=== PATIENT | female | born 1945 | race Caucasian/White ===

== ENCOUNTER 2017-10-15 16:54 | Emergency (ER) | payer MEDICARE, SELFPAY ==
[2017-10-15 16:58] VITALS: BP 124/65; PULSE 71; RESP 16; TEMP 36.5; O2SAT 94; BMI 35.9
--- NOTE | 2017-10-15 17:56 | HMH.EDUTC ---
[facility] [place] Disposition Clinical Impression: UTI (urinary tract infection) Qualifiers: Urinary tract infection type: site unspecified Hematuria presence: with hematuria Qualified Code(s): N39.0 - Urinary tract infection, site not specified; R31.9 - Hematuria, unspecified Disposition: Home, Self-Care Condition on Discharge: Good Instructions: DI for Acute Abdomen Additional Instructions: Increase fluids Follow-up with primary care If symptoms worsen or do not improve return or be seen by Call within 48 hours for culture results Prescriptions: Ciprofloxacin HCl [Cipro 250mg Tab] 250 mg PO BID 5 Days tab Referrals: Sheba Fernandez [Primary Care Provider] - Time of Disposition: 18:01 Medical Decision Making - Agustin Inquiry Pt receiving controlled substance: No Vital Signs: 10/15/17 16:58 Temperature 97.7 F Temperature Source Oral Pulse Rate [Right Radial] 71 Respiratory Rate 16 Blood Pressure [Right Arm] 124/65 Blood Pressure Mean [Right Arm] 84 Blood Pressure Source [Right Arm] Automatic Cuff Blood Pressure Position [Right Arm] Sitting 02 Sat by Pulse Oximetry 94 L Oxygen Delivery Method Room Air [facility] [place] HPI - General Chief complaint: Abdominal Pain Stated complaint: lower abd pain, burning with urination Time Seen by Provider: 10/15/17 17:56 Mode of Arrival: Ambulatory Source of Information: Patient Description of Symptoms (Recalled from Triage Doc. by RN): BURNING WITH URINATION SINCE SUNDAY. CHRONIC INTERSTITIAL CYSTITIS. VAGINAL PROLAPSE SURGERY. RECURRING UTI'S. HEADACHE FOR 2 WEEKS. - History of Present Illness Provider Complaint: 72-year-old female presents today for burning with urination,andpelvic pain for 2 days. Patient states she takes Cipro and tolerates it well for UTIs - Related Data Home Medications Medication Instructions Recorded Confirmed Linaclotide [Linzess] 290 mcg PO DAILY 10/15/17 10/15/17 Potassium Chloride [Klor-Con 10mEq 10 meq PO DAILY 10/15/17 10/15/17 tab] Venlafaxine HCl [Venlafaxine HCl 37.5 mg PO DAILY 10/15/17 10/15/17 ER] clonazePAM [Klonopin 0.5mg tablet] 0.5 mg PO DAILY 10/15/17 10/15/17 Previous Rx's Medication Instructions Recorded Ciprofloxacin HCl [Cipro 250mg Tab] 250 mg PO BID 5 Days tab 10/15/17 Allergies Allergy/AdvReac Type Severity Reaction Status Date / Time Iodinated Contrast Media - Allergy Intermediate Unverified 07/24/17 15:01 Oral and [IODINATED CONTRAST MEDIA - IV DYE] povidone-iodine Allergy Intermediate I-RASH Unverified 07/24/17 15:01 [From BETADINE] cephalexin Allergy Unknown Unverified 07/24/17 15:01 ANYTHING OTHER THAN PAPER Allergy Unknown I-HIVES Uncoded 07/24/17 15:01 [facility] History I have reviewed the patient's past medical history: Yes ROS Obtained: Yes All systems reviewed & no additional complaints - Constitutional Constitutional: Reports system reviewed and no additional complaints, except as docu, Denies chills, Denies fever(s) - Eyes Eyes: Reports system reviewed and no additional complaints, except as docu - ENT Ears, Nose, Mouth, and Throat: Reports system reviewed and no additional complaints, except as docu - Cardiovascular Cardiovascular: Reports system reviewed and no additional complaints, except as docu - Respiratory Respiratory: Yes system reviewed and no additional complaints, except as docu - Gastrointestinal Gastrointestingal: Reports: system reviewed and no additional complaints, except as docu - Genitourinary Female Genitourinary: Reports system reviewed and no additional complaints, except as docu, Reports as per HPI, Reports urinary frequency, Reports urinary hesitancy, Reports urinary urgency - Musculoskeletal Musculoskeletal: Reports system reviewed and no additional complaints, except as docu - Integumentary/Breasts Skin/Breast: Reports system reviewed and no additional complaints, except as docu - Neurologic Neurologic: Repo
--- NOTE | 2017-10-15 17:59 | ED_ITS ---
[facility] [place] Disposition Clinical Impression: UTI (urinary tract infection) Qualifiers: Urinary tract infection type: site unspecified Hematuria presence: with hematuria Qualified Code(s): N39.0 - Urinary tract infection, site not specified ; R31.9 - Hematuria, unspecified Disposition: Home, Self-Care Condition on Discharge: Good Instructions: DI for Acute Abdomen Additional Instructions: Increase fluids Follow-up with primary care If symptoms worsen or do not improve return or be seen by Call within 48 hours for culture results Prescriptions: Ciprofloxacin HCl [Cipro 250mg Tab] 250 mg PO BID 5 Days tab Referrals: Sheba Fernandez [Primary Care Provider] - Time of Disposition: 18:01 Medical Decision Making - Agustin Inquiry Pt receiving controlled substance: No Vital Signs: 10/15/17 16:58 Temperature 97.7 F Temperature Source Oral Pulse Rate [Right Radial] 71 Respiratory Rate 16 Blood Pressure [Right Arm] 124/65 Blood Pressure Mean [Right Arm] 84 Blood Pressure Source [Right Arm] Automatic Cuff Blood Pressure Position [Right Arm] Sitting 02 Sat by Pulse Oximetry 94 L Oxygen Delivery Method Room Air [facility] [place] HPI - General Chief complaint: Abdominal Pain Stated complaint: lower abd pain, burning with urination Time Seen by Provider: 10/15/17 17:56 Mode of Arrival: Ambulatory Source of Information: Patient Description of Symptoms (Recalled from Triage Doc. by RN): BURNING WITH URINATION SINCE SUNDAY. CHRONIC INTERSTITIAL CYSTITIS. VAGINAL PROLAPSE SURGERY. RECURRING UTI'S. HEADACHE FOR 2 WEEKS. - History of Present Illness Provider Complaint: 72-year-old female presents today for burning with urination ,andpelvic pain for 2 days. Patient states she takes Cipro and tolerates it well for UTIs - Related Data Home Medications Medication Instructions Recorded Confirmed Linaclotide [Linzess] 290 mcg PO DAILY 10/15/17 10/15/17 Potassium Chloride [Klor-Con 10mEq 10 meq PO DAILY 10/15/17 10/15/17 tab] Venlafaxine HCl [Venlafaxine HCl 37.5 mg PO DAILY 10/15/17 10/15/17 ER] clonazePAM [Klonopin 0.5mg tablet] 0.5 mg PO DAILY 10/15/17 10/15/17 Previous Rx's Medication Instructions Recorded Ciprofloxacin HCl [Cipro 250mg Tab] 250 mg PO BID 5 Days tab 10/15/17 Allergies Allergy/AdvReac Type Severity Reaction Status Date / Time Iodinated Contrast Media - Allergy Intermediate Unverified 07/24/17 15:01 Oral and [IODINATED CONTRAST MEDIA - IV DYE] povidone-iodine Allergy Intermediate I-RASH Unverified 07/24/17 15:01 [From BETADINE] cephalexin Allergy Unknown Unverified 07/24/17 15:01 ANYTHING OTHER THAN PAPER Allergy Unknown I-HIVES Uncoded 07/24/17 15:01 [facility] History I have reviewed the patient's past medical history: Yes ROS Obtained: Yes All systems reviewed & no additional complaints - Constitutional Constitutional: Reports system reviewed and no additional complaints, except as docu, Denies chills, Denies fever(s) - Eyes Eyes: Reports system reviewed and no additional complaints, except as docu - ENT Ears, Nose, Mouth, and Throat: Reports system reviewed and no additional complaints, except as docu - Cardiovascular Cardiovascular: Reports system reviewed and no additional c
[2017-10-15 18:10] VITALS: BP 124/65; PULSE 71; RESP 16; TEMP 36.5; O2SAT 94
[2017-10-15 19:16] LABS: Apearance,Urine Clear (Clear); Color,Urine Yellow (Yellow)
[2017-10-15 19:17] LABS: Glucose,Urine (UA) 100 (Negative); Protein,Urine Trace (Negative); Specific Gravity, Urine 1.025 (1.005-1.030)
[2017-10-15 19:18] LABS: Ketones,Urine TRACE (Negative)
[2017-10-15 19:19] LABS: Bilirubin,Urine 1+ (Negative); Blood, Urine Negative (Negative); Urobilinogen,Urine 1 EU/dl (0.2)
[2017-10-15 19:20] LABS: UTC Leukocyte Esterase,Urine Negative (Negative); UTC Nitrate,Urine Positive (Negative)
== END 2017-10-15 18:12 | disposition home or self-care (01) ==
LOC: ER 17:16 → UTC 17:18
PROVIDERS: Emergency Provider Nurse Practitioner Family; Family Provider Family Medicine Geriatric Medicine; PCP Family Medicine Geriatric Medicine
DX: N39.0 Urinary tract infection, site not specified (principal); R51 Headache
CPT/HCPCS: 81003; 99201; 99281

== ENCOUNTER → 2018-01-09 12:33 | Outpatient (CLI) | payer MEDICARE, SELFPAY ==
--- NOTE | 2018-01-09 | CA_ITS ---
PROCEDURE: 2-D M-mode and color Doppler study INDICATIONS FOR THE TEST: Chest pain COPD Heart Murmur Tobacco Smokingex Palpitations+ Fatigue Syncope Edema Hypertension+Diabetes Mellitus Rheumatic Fever SOB BROWNE+Obesity Hyperlipidemia+ Family History HD Additional History lt shoulder pain, dizziness PATIENT INFORMATION HEIGHT: 61 WEIGHT: 181 GENDER: Female B/P: 124/65 2-D/M-MODE INTERPRETATION: 2-D MEASUREMENTS OBSERVED VALUES IN CMS Right Ventricular Dimension (RVDd) 2.2 Interventricular Septum (Thickness)(IVsd) 1.2 Left Ventricular Internal Dimensions(LVIDd) 4.5 Left Ventricular Posterior Wall (Thickness)(LVPWd) 1.1 Aortic Root 2.3 Aortic Cusp Separation 2.6 Left Atrial Dimensions (LAD) 3.2 2D 1. Left atrium is mildly enlarged, left ventricle is normal size, mild concentric left ventricular hypertrophy visually estimated ejection fraction 55% with no obvious regional wall motion abnormality. 2. The right atrium and right ventricle are normal size and contractility. 3. The aortic valve is minimally thickened and fibrosed. 4. The mitral valve has mitral annular calcification, leaflets are minimally thickened. 5. The tricuspid valve is grossly normal. 6. The pulmonic valve is poorly visualized. 7. No significant pericardial effusion noted. DOPPLER INTERROGATION: Doppler interrogation of the aortic, mitral and tricuspid valvular presence of mild aortic, mild mitral and tricuspid regurgitation, calculated right ventricular systolic pressure is 40 mmHg consistent with mild pulmonary hypertension, grade 1 diastolic dysfunction seen with tissue Doppler evidence of raised left atrial pressure. CONCLUSION: 1. Mildly enlarged left atrium, normal left ventricular size, mild concentric left ventricular hypertrophy, visually estimated ejection fraction 55% with no obvious regional wall motion abnormality, grade 1 diastolic dysfunction seen with tissue Doppler evidence of raised left atrial pressure. 2. Mild aortic, mild mitral and tricuspid regurgitation, calculated right ventricular systolic pressure is 40 mmHg consistent with mild pulmonary hypertension. 3. No significant pericardial effusion noted.
== END ==
PROVIDERS: Family Provider Family Medicine Geriatric Medicine; PCP Family Medicine Geriatric Medicine; Visit Provider Family Medicine Geriatric Medicine
DX: R53.82 Chronic fatigue, unspecified (principal); R41.82 Altered mental status, unspecified; F05 Delirium due to known physiological condition; I25.10 Atherosclerotic heart disease of native coronary artery without angina pectoris
CPT/HCPCS: 93306

== ENCOUNTER 2018-03-15 21:03 | Observation (INO) ==
[2018-03-15 21:24] LABS: Basophils # 0.1 K/mm3 (0-0.2); Basophils % 0.5 % (0.1-2.0); Eosinophils # 0.5 K/mm3 (0.0-0.4); Eosinophils % 4.1 % (0.1-12.0); Hematocrit 37.2 % (37.0-47.0); Hemoglobin 12.3 g/dL (12.2-16.2); Lymphocytes % 16.4 K/mm3 (10-50); Mean Corpuscular Hemoglobin 31.2 pg (27.0-31.2); Mean Corpuscular Volume 94.5 fl (81-99); Mean Platelet Volume 8.6 fl (7.4-10.4); Monocytes # 0.7 K/mm3 (0.1-1.0); Monocytes % 5.7 % (1.7-9.3); Neutrophils # 8.9 K/mm3 (1.8-7.8); Neutrophils % 73.4 % (37.0-80.0); Platelet Count 214 K/mm3 (142-424); Red Blood Count 3.94 M/mm3 (4.20-5.40); Red Cell Distribution Width 13.9 % (11.5-17.5); White Blood Count 12.2 K/mm3 (4.8-10.8)
[2018-03-15 21:39] LABS: Microscopic, Urine URINE MICROSCOPIC (MICROSCOPIC)
[2018-03-15 21:41] LABS: Appearance,Urine CLEAR (Clear); Bilirubin,Urine Negative (Negative); Blood, Urine TRACE-I (Negative); Color,Urine YELLOW (Yellow); Glucose,Urine (UA) Negative (Negative); Ketones,Urine Negative (Negative); Leukocyte Esterase,Urine TRACE (Negative); Protein,Urine Negative (Negative); Specific Gravity, Urine >= 1.030 (1.005-1.030); Urobilinogen,Urine 0.2 EU/dl (0.2)
[2018-03-15 21:41] LABS: Anion Gap 6.7 mEq/L (5-15); Blood Urea Nitrogen 19 mg/dL (7-18); Carbon Dioxide 32 mmol/L (21.0-32.0); Chloride 103 mmol/L (98-107); Glucose 118 mg/dL (74-106); Potassium 3.7 mmoL/L (3.5-5.1); Sodium 138 mmol/L (136-145); T4 (Thyroxine) 10.5 ug/dl (4.7-13.3); Thyroid Stimulating Hormone 2.19 uIU/ml (0.358-3.740)
[2018-03-15 21:57] LABS: Mucus,Urine 1+ /lpf; WBC,Urine Occasional #/hpf (0-3)
--- NOTE | 2018-03-15 22:48 | Emergency Department Note ---
ED Disposition Clinical Impression: Palpitations Disposition: Admitted as Observation Condition on Discharge: Good Referrals: Neymar Fernandez [Primary Care Provider] - - Critical Care Critical Care Time: No Attestation: On 03/15/18, the high probability of a clinically significant, sudden or life threatening deterioration of the following system(s) required my full and direct attention, intervention and personal management. The time I documented below is in addition to time spent performing reported procedures but includes the following listed in this critical care notation. Medical Decision Making - Medical Records Medical records reviewed: Yes: I reviewed the patient's medical records. - Agustin Inquiry Pt receiving controlled substance: No Vital Signs: 03/15/18 21:05 03/15/18 21:38 03/15/18 23:06 Temperature 98.0 F Temperature Source Oral Pulse Rate [Right Radial] 100 H 98 H 83 Respiratory Rate 20 15 Blood Pressure [Right Arm] 165/88 140/65 140/65 Blood Pressure Mean [Right Arm] 113 90 90 Blood Pressure Source [Right Arm] Automatic Cuff Automatic Cuff Automatic Cuff Blood Pressure Position [Right Arm] Sitting Sitting Sitting 02 Sat by Pulse Oximetry 97 94 L 94 L Oxygen Delivery Method Room Air Room Air Room Air - Lab Data Lab results reviewed: Yes: I reviewed the patient's lab results. Lab Results 03/15/18 21:10: WBC 12.2 H, RBC 3.94 L, Hgb 12.3, Hct 37.2, MCV 94.5, MCH 31.2, MCHC 33.0, RDW 13.9, Plt Count 214, MPV 8.6, Neut % (Auto) 73.4, Lymph % (Auto) 16.4, [place] % (Auto) 5.7, Eos % (Auto) 4.1, Baso % (Auto) 0.5, Neut # (Auto) 8.9 H, Lymph # (Auto) 2.0, [place] # (Auto) 0.7, Eos # (Auto) 0.5 H, Baso # (Auto) 0.1 03/15/18 21:10: Sodium 138, Potassium 3.7, Chloride 103, Carbon Dioxide 32, Anion Gap 6.7, BUN 19 H, Creatinine 1.00, Estimated Creat Clear 67, Estimated GFR 55 L, Est GFR ( Amer) 66, Glucose 118 H, Calcium 9.0, Troponin I < 0.02, TSH 2.19, Thyroxine (T4) 10.5 03/15/18 21:25: Urine Color Yellow, Urine Appearance Clear, Urine pH 6.0, Ur Specific [place] >= 1.030, Urine Protein Negative, Urine Glucose (UA) Negative, Urine Ketones Negative, Urine Blood Trace-i, Urine Nitrate Negative, Urine Bilirubin Negative, Urine Urobilinogen 0.2, Ur Leukocyte Esterase Trace, Urine RBC 3-5, Urine WBC Occasional, Ur Squamous Epith Cells 10-20, Urine Mucus 1+ Result diagrams: 03/15/18 21:10 03/15/18 21:10 Orders (Tests/Meds): ED MEDICATIONS Discontinued Medications Generic Name Dose Route Start Last Admin Trade Name Freq PRN Reason Stop Dose Admin Clonazepam 0.5 mg 03/15/18 23:13 Klonopin 0.5mg Tablet PO 03/15/18 23:14 ONCE ONE Diphenhydramine HCl 50 mg 03/15/18 23:12 Diphenhydramine 50mg Capsule PO 03/15/18 23:13 ONCE ONE ORDERS Category Date Time Status XR chest 2V Stat Exams 03/15/18 21:16 Taken ECG Request by /Nse Stat Y 03/15/18 21:16 Ordered - Radiology Data #1 Image(s): Chest Image Reviewed: Yes I reviewed the patient's radiology image Preliminary Findings: Abnormal (cm) - Physician Consults Physician Consulted: brian Reason -: Admission Arrhythmia/Palpitations HPI - General Chief Complaint: Shortness of Breath/Dyspnea Stated Complaint: Heart racing, soa Time Seen by Provider: 03/15/18 21:10 Mode of Arrival: Ambulatory Source of Information: Patient, Spouse, Medical Record Limitations: No Limitations - History of Present Illness HPI narrative: pt reports episodes of palpitation with sob but no chest pain with no syncope MD complaint: rapid heart beat, "heart racing", palpitations Onset (ago): day(s) Duration: intermittent Severity: moderate Context: occurred during rest Associated symptoms: denies other symptoms - Related Data Home Medications Medication Instructions Recorded Confirmed Linaclotide [Linzess] 290 mcg PO DAILY 10/15/17 03/15/18 Potassium Chloride [Klor-Con 10mEq 10 meq PO DAILY 10/15/17 03/15/18 tab] Venlafaxine HCl [Venlafaxine HCl 37.5 mg PO DAILY 10/15/17 03/15/18 ER] clonazePAM [Klonopin 0.5mg tablet] 0.5 mg PO DAILY 10/15/17 03/15/18 Carvedilol [Carvedilol 25mg Tab] 25 mg PO BID 03/15/18 03/15/18 Ciprofloxacin HCl [Cipro 250mg Tab] 250 mg PO BID 03/15/18 03/15/18 Estradiol 1 mg PO QDAY 03/15/18 03/15/18 Lisinopril/Hydrochlorothiazide 12.5 mg PO DAILY 03/15/18 03/15/18 [Lisinopril-Hctz 20-12.5 mg Tab] Tramadol HCl [Ultram Take Home 50 mg PO NEEDED PRN 03/15/18 03/15/18 Pack 50mg (10)] Allergies Allergy/AdvReac Type Severity Reaction Status Date / Time chlorhexidine Allergy Severe RASH Verified 03/15/18 21:10 [From Hibiclens] Iodinated Contrast Media - Allergy Intermediate Verified 03/15/18 21:10 Oral and [IODINATED CONTRAST MEDIA - IV DYE] povidone-iodine Allergy Intermediate I-RASH Verified 03/15/18 21:10 [From BETADINE] cephalexin Allergy Unknown Verified 03/15/18 21:10 ANYTHING OTHER THAN PAPER Allergy Unknown I-HIVES Uncoded 03/11/18 14:20 [facility] History I have reviewed the patient's past medical history: Yes Medical History: Denies:: Diabetes Mellitus Type 1, Diabetes Mellitus Type 2 Comment: 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 osteoarthritis. IC. Tinnitus. 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 Diverticulosis. Hx rectal bleeding/transfusion Amputation: No Fractures: No Comment: Open Cholecystectomy--1970. TVH, BSO @ --1995. back surgery--2002. cataract surgery, both eyes--2006, 2007. rotator cuff tear repair, both shoulders--2008, 2009. rectocoele repair, Enterocele repair,vaginal vault suspension, cystoscopy (Dr. Macias)--2014. heart stent placement--2016. NOV --2016 - Social History Smoking Status: Former smoker Alcohol Intake: never Substance Use Type: denies use - Psychiatric History Expresses thoughts of harming self/others: None Suicide Plan Description: No Plan Family Hx:: Hypertension ROS Obtained: Yes All systems reviewed & no additional complaints - Constitutional Constitutional: Denies fever(s) - Eyes Eyes: Denies change in vision - ENT Ears, Nose, Mouth, and Throat: Denies sore throat - Cardiovascular Cardiovascular: Denies chest pain, Reports rapid heart rate - Respiratory Respiratory: No cough - Gastrointestinal Gastrointestingal: Denies: abdominal pain - Genitourinary Female Genitourinary: Denies hematuria - Musculoskeletal Musculoskeletal: Denies joint pain - Integumentary/Breasts Skin/Breast: Denies rash - Neurologic Neurologic: Denies seizure-like activity Physical Exam - General General appearance: in no apparent distress - Head Head exam: normocephalic - Eye Eye exam: Present: PERRL, EOMI - ENT ENT exam: Present: mucous membranes moist, mucous membranes dry - Neck Neck exam: Present: trachea midline - Respiratory Respiratory exam: Present: normal lung sounds bilaterally. Absent: respiratory distress - Cardiovascular Cardiovascular exam: Present: regular rate, systolic murmur, +S4 - Abdominal Exam Abdominal exam: Present: soft - Extremities Exam Extremities exam: Absent: calf tenderness - Neurological Exam Neurological exam: Present: alert, oriented X3, CN II-XII intact - Psychiatric Psychiatric exam: Present: normal affect - Skin Skin exam: Absent: rash
[2018-03-16 06:45] LABS: Basophils # 0.1 K/mm3 (0-0.2); Basophils % 0.5 % (0.1-2.0); Eosinophils # 0.5 K/mm3 (0.0-0.4); Eosinophils % 4.7 % (0.1-12.0); Hemoglobin 11.2 g/dL (12.2-16.2); Lymphocytes # 2.5 K/mm3 (0.7-4.5); Lymphocytes % 23.2 K/mm3 (10-50); Mean Corpuscular Hemoglobin 31.6 pg (27.0-31.2); Mean Corpuscular Volume 95.8 fl (81-99); Mean Platelet Volume 8.2 fl (7.4-10.4); Monocytes # 0.6 K/mm3 (0.1-1.0); Monocytes % 5.3 % (1.7-9.3); Neutrophils # 7.1 K/mm3 (1.8-7.8); Neutrophils % 66.4 % (37.0-80.0); Platelet Count 179 K/mm3 (142-424); Red Blood Count 3.55 M/mm3 (4.20-5.40); Red Cell Distribution Width 13.8 % (11.5-17.5); White Blood Count 10.7 K/mm3 (4.8-10.8)
[2018-03-16 07:12] LABS: Anion Gap 10.5 mEq/L (5-15); Blood Urea Nitrogen 18 mg/dL (7-18); Carbon Dioxide 30 mmol/L (21.0-32.0); Chloride 105 mmol/L (98-107); Sodium 142 mmol/L (136-145)
[2018-03-16 07:13] LABS: Calcium 8.6 mg/dL (8.5-10.1); Chol/HDL Ratio 2.7 (1-3.5); Cholesterol 121 mg/dL (140-200); Glucose 94 mg/dL (74-106); HDL Cholesterol 45 mg/dL (29-89); LDL Cholesterol 58 mg/dL (0-130); Triglycerides 92 mg/dL (30-200); VLDL Cholesterol 18 mg/dL (0-40)
[2018-03-16 07:14] LABS: Potassium 3.5 mmoL/L (3.5-5.1)
--- NOTE | 2018-03-16 07:53 | H&P/Discharge Summary ---
General - General Admission date:: 03/15/18 Discharge date: 03/16/18 *Admission Date: 03/15/18 *Chief complaint: Palpitations *History of present illness: 72-year-old white female with history of coronary disease, status post stent placement in 2016, since that time she has been on carvedilol, but over the past couple of years she has had increasing problems with palpitations. She reports feelings like her heart is racing which make her extremely nervous. She has been to the [place], [place] emergency department several times and has been told she is dehydrated or hypokalemic. She does not feel this is the case. Came to the emergency department here yesterday evening was found to have normal EKGs and normal labs, however very concerned about her palpitations , given previous poor results from her outpatient workup she was admitted overnight for further evaluations. [facility] History I have reviewed the patient's past medical history: Yes Medical History: Reports:: Anxiety, Coronary Artery Disease, Palpitations Denies:: Cancer, Diabetes Mellitus Type 1, Diabetes Mellitus Type 2, MRSA Other Medical History: Reports: Arthritis, Cataracts Comment: Chronic clonazepam for anxiety and tinnitus, chronic tramadol for osteoarthritis, not an NSAID candidate because of cardiovascular disease Laterality Cases: Bilateral: Arthroscopy Shoulder, Carpal Tunnel Release, Cataract Other Surgeries: Yes: Appendectomy, Cardiac Catheterization, Cholecystectomy, Hysterectomy-Total Amputation: No Fractures: No - *Social History Educational Level: Completed High School Smoking Status: Former smoker Alcohol Intake: never Substance Use Type: denies use Occupational Status: retired Housing: house Household Members: spouse - Psychiatric History Expresses thoughts of harming self/others: None Suicide Plan Description: No Plan *Family Hx:: Cancer, Hypertension Review of Systems - Review of Systems Review of systems:: pertinent systems reviewed and negative unless documented below - Constitutional Denies anorexia, Denies body ache(s), Denies chills - Eyes Denies blind spots, Denies blurry vision, Denies change in vision - ENT Reports ringing in the ears, Denies abnormal hearing, Denies bleeding gums, Denies headache(s), Denies hearing loss - *Cardiovascular Reports irregular heart rhythm, Reports rapid, pounding, or irregular heartbeat , Denies chest pain, Denies chest pain at rest, Denies shortness of breath with activity, Denies leg swelling, Denies leg sores, Denies lightheadedness, Denies shortness of breath when lying down - *Respiratory Reports cough, Reports shortness of breath, Reports shortness of breath with activity, Denies change in phlegm color, Denies chest congestion, Denies excessive phlegm production - *Gastrointestinal Denies abdominal pain, Denies belching, Denies bloating, Denies constipation - *Neurologic Denies seizure-like activity Exam Vital signs and Labs for Last 24 Hours: Temp Pulse Resp BP Pulse Ox 97.9 F 77 20 109/55 95 03/16/18 04:00 03/16/18 04:00 03/16/18 04:00 03/16/18 04:00 03/16/18 04:00 Laboratory Results - last 24 hr 03/15/18 21:10: WBC 12.2 H, RBC 3.94 L, Hgb 12.3, Hct 37.2, MCV 94.5, MCH 31.2, MCHC 33.0, RDW 13.9, Plt Count 214, MPV 8.6, Neut % (Auto) 73.4, Lymph % (Auto) 16.4, [place] % (Auto) 5.7, Eos % (Auto) 4.1, Baso % (Auto) 0.5, Neut # (Auto) 8.9 H, Lymph # (Auto) 2.0, [place] # (Auto) 0.7, Eos # (Auto) 0.5 H, Baso # (Auto) 0.1 03/15/18 21:10: Sodium 138, Potassium 3.7, Chloride 103, Carbon Dioxide 32, Anion Gap 6.7, BUN 19 H, Creatinine 1.00, Estimated Creat Clear 67, Estimated GFR 55 L, Est GFR ( Amer) 66, Glucose 118 H, Calcium 9.0, Troponin I < 0.02, TSH 2.19, Thyroxine (T4) 10.5 03/15/18 21:25: Urine Color Yellow, Urine Appearance Clear, Urine pH 6.0, Ur Specific [place] >= 1.030, Urine Protein Negative, Urine Glucose (UA) Negative, Urine Ketones Negative, Urine Blood Trace-i, Urine Nitrate Negative, Urine Bilirubin Negative, Urine Urobilinogen 0.2, Ur Leukocyte Esterase Trace, Urine RBC 3-5, Urine WBC Occasional, Ur Squamous Epith Cells 10-20, Urine Mucus 1+ 08/10/18 23:45: Troponin I < 0.02 03/16/18 02:40: Troponin I < 0.02 03/16/18 05:40: Sodium 142, Potassium 3.5, Chloride 105, Carbon Dioxide 30, Anion Gap 10.5, BUN 18, Creatinine 0.79 D, Estimated Creat Clear 65, Estimated GFR 72, Est GFR ( Amer) 87 D, Glucose 94 D, Calcium 8.6, Magnesium 1.9 , Troponin I < 0.02, Triglycerides 92, Cholesterol 121 L, LDL Cholesterol 58, VLDL Cholesterol 18, HDL Cholesterol 45, Cholesterol/HDL Ratio 2.7 03/16/18 05:40: WBC 10.7, RBC 3.55 L, Hgb 11.2 L, Hct 34.0 L, MCV 95.8, MCH 31.6 H, MCHC 33.0, RDW 13.8, Plt Count 179, MPV 8.2, Neut % (Auto) 66.4, Lymph % (Auto) 23.2, [place] % (Auto) 5.3, Eos % (Auto) 4.7, Baso % (Auto) 0.5, Neut # ( Auto) 7.1, Lymph # (Auto) 2.5, [place] # (Auto) 0.6, Eos # (Auto) 0.5 H, Baso # ( Auto) 0.1 I & O for Last 24 hours: Intake & Output 03/13/18 03/14/18 03/15/18 03/16/18 11:59 11:59 11:59 11:59 Intake Total 348 / 348 Output Total 350 / 350 Balance -2 / -2 Weight 176 lb 1 oz - Constitutional obese - *Routine HEENT Exam Head: Present: normocephalic, atraumatic Eye: Present: EOMI, PERRL ENT: Present: mucous membranes moist - *Routine Neck Exam Present: supple, full ROM, JVD - *Routine Respiratory Exam Present: CTA bilaterally. Absent: accessory muscle use, patient mechanically ventilated, prolonged expiratory phase - *Routine Cardiovascular Exam Present: RRR, Normal S1, Normal S2. Absent: murmur - *Routine Abdominal Exam Present: soft, normoactive bowel sounds - *Routine Extremities Exam Present: full ROM. Absent: cyanosis, clubbing, edema - *Routine Neurological Exam Present: alert, oriented X3, CN II-XII intact, moving all extremities - Routine Psychiatric Exam Present: anxious. Absent: visual hallucinations, agitated, paranoid Hospital Course Hospital Course: Patient was admitted overnight, environmental management specialist captured multiple PVCs, especially correlating with patient's symptoms around 5:30 AM. Patient had no further problems with chest pain or shortness of air cough. Chest x-ray showed patchy lower lobe infiltrate. Patient noted to be this morning that she does not drink caffeine but takes caffeine tablets on a regular basis because she thinks they make "my aspirin tablets work better." I reviewed patient's EKGs with her and her . I think she would do better on beta blockade designed for rate control rather than carvedilol at this point. She is also concerned about some circulation issues that she attributes to the carvedilol. I will discharge her home today, change to nebivolol 10 mg daily. Follow her up in my office in 6 days. She is wishing to obtain internal medicine follow-up closer to her home near [place]. We will cover with antibiotics for the infiltrate noted on chest x-ray Results Labs on day of discharge: Labs from last 24 hours 03/16/18 03/16/18 03/16/18 05:40 05:40 02:40 WBC 10.7 RBC 3.55 L Hgb 11.2 L Hct 34.0 L MCV 95.8 MCH 31.6 H MCHC 33.0 RDW 13.8 Plt Count 179 MPV 8.2 Neut % (Auto) 66.4 Lymph % (Auto) 23.2 [place] % (Auto) 5.3 Eos % (Auto) 4.7 Baso % (Auto) 0.5 Neut # (Auto) 7.1 Lymph # (Auto) 2.5 [place] # (Auto) 0.6 Eos # (Auto) 0.5 H Baso # (Auto) 0.1 Sodium 142 Potassium 3.5 Chloride 105 Carbon Dioxide 30 Anion Gap 10.5 BUN 18 Creatinine 0.79 D Estimated Creat Clear 65 Estimated GFR 72 Est GFR ( Amer) 87 D Glucose 94 D Calcium 8.6 Magnesium 1.9 Troponin I < 0.02 < 0.02 Triglycerides 92 Cholesterol 121 L LDL Cholesterol 58 VLDL Cholesterol 18 HDL Cholesterol 45 Cholesterol/HDL Ratio 2.7 TSH Thyroxine (T4) Urine Color Urine Appearance Urine pH Ur Specific [place] Urine Protein Urine Glucose (UA) Urine Ketones Urine Blood Urine Nitrate Urine Bilirubin Urine Urobilinogen Ur Leukocyte Esterase Urine RBC Urine WBC Ur Squamous Epith Cells Urine Mucus 03/15/18 03/15/18 03/15/18 23:45 21:25 21:10 WBC RBC Hgb Hct MCV MCH MCHC RDW Plt Count MPV Neut % (Auto) Lymph % (Auto) [place] % (Auto) Eos % (Auto) Baso % (Auto) Neut # (Auto) Lymph # (Auto) [place] # (Auto) Eos # (Auto) Baso # (Auto) Sodium 138 Potassium 3.7 Chloride 103 Carbon Dioxide 32 Anion Gap 6.7 BUN 19 H Creatinine 1.00 Estimated Creat Clear 67 Estimated GFR 55 L Est GFR ( Amer) 66 Glucose 118 H Calcium 9.0 Magnesium Troponin I < 0.02 < 0.02 Triglycerides Cholesterol LDL Cholesterol VLDL Cholesterol HDL Cholesterol Cholesterol/HDL Ratio TSH 2.19 Thyroxine (T4) 10.5 Urine Color Yellow Urine Appearance Clear Urine pH 6.0 Ur Specific [place] >= 1.030 Urine Protein Negative Urine Glucose (UA) Negative Urine Ketones Negative Urine Blood Trace-i Urine Nitrate Negative Urine Bilirubin Negative Urine Urobilinogen 0.2 Ur Leukocyte Esterase Trace Urine RBC 3-5 Urine WBC Occasional Ur Squamous Epith Cells 10-20 Urine Mucus 1+ 03/15/18 21:10 WBC 12.2 H RBC 3.94 L Hgb 12.3 Hct 37.2 MCV 94.5 MCH 31.2 MCHC 33.0 RDW 13.9 Plt Count 214 MPV 8.6 Neut % (Auto) 73.4 Lymph % (Auto) 16.4 [place] % (Auto) 5.7 Eos % (Auto) 4.1 Baso % (Auto) 0.5 Neut # (Auto) 8.9 H Lymph # (Auto) 2.0 [place] # (Auto) 0.7 Eos # (Auto) 0.5 H Baso # (Auto) 0.1 Sodium Potassium Chloride Carbon Dioxide Anion Gap BUN Creatinine Estimated Creat Clear Estimated GFR Est GFR ( Amer) Glucose Calcium Magnesium Troponin I Triglycerides Cholesterol LDL Cholesterol VLDL Cholesterol HDL Cholesterol Cholesterol/HDL Ratio TSH Thyroxine (T4) Urine Color Urine Appearance Urine pH Ur Specific [place] Urine Protein Urine Glucose (UA) Urine Ketones Urine Blood Urine Nitrate Urine Bilirubin Urine Urobilinogen Ur Leukocyte Esterase Urine RBC Urine WBC Ur Squamous Epith Cells Urine Mucus DS: Diagnosis - Discharge Diagnosis (1) Palpitations Status: Acute (2) Acute bronchopneumonia Status: Acute Discharge Medications - Medications for Discharge Home Medication List at Discharge: No Action Potassium Chloride [Klor-Con 10mEq tab] 20 meq PO DAILY clonazePAM [Klonopin 0.5mg tablet] 0.5 mg PO DAILY Estradiol 1 mg PO QDAY Tramadol HCl [Ultram Take Home Pack 50mg (10)] 50 mg PO BID Lisinopril/Hydrochlorothiazide [Lisinopril-Hctz 20-12.5 mg Tab] 12.5 mg PO DAILY Carvedilol [Carvedilol 25mg Tab] 25 mg PO BID Atorvastatin Calcium [Atorvastatin 20mg Tab] 20 mg PO DAILY Linaclotide [Linzess] 290 mcg PO DAILY Aspirin 81 mg PO DAILY
== END 2018-03-16 08:54 | disposition home or self-care (01) ==
LOC: ER 21:03 → 2ND 21:03
PROVIDERS: ADMIT Emergency Medicine; ATTEND Internal Medicine Adolescent Medicine
CPT/HCPCS: 36415; 71020; 71046; 80048; 80061; 81001; 83735; 84436; 84443; 84484; 85025; 93005; 96365; 99284; G0378

== ENCOUNTER → 2018-06-08 10:36 | Outpatient (CLI) | payer MEDICARE, SELFPAY ==
[2018-06-08 11:07] LABS: Basophils % 0.5 % (0.1-2.0); Eosinophils # 0.4 K/mm3 (0.0-0.4); Eosinophils % 4.5 % (0.1-12.0); Hematocrit 42.4 % (37.0-47.0); Hemoglobin 13.5 g/dL (12.2-16.2); Lymphocytes # 1.6 K/mm3 (0.7-4.5); Lymphocytes % 18.3 K/mm3 (10-50); Mean Corpuscular HGB Conc 31.9 g/dL (31.8-35.4); Mean Corpuscular Hemoglobin 31.6 pg (27.0-31.2); Mean Platelet Volume 8.6 fl (7.4-10.4); Monocytes # 0.5 K/mm3 (0.1-1.0); Monocytes % 5.2 % (1.7-9.3); Neutrophils # 6.1 K/mm3 (1.8-7.8); Neutrophils % 71.6 % (37.0-80.0); Platelet Count 215 K/mm3 (142-424); Red Blood Count 4.29 M/mm3 (4.20-5.40); Red Cell Distribution Width 13.9 % (11.5-17.5); White Blood Count 8.6 K/mm3 (4.8-10.8)
[2018-06-08 12:59] LABS: Alanine Aminotransferase 21 U/L (12-78); Albumin Level 3.2 gm/dL (3.4-5.0); Albumin/Globulin Ratio 0.9 (1.1-1.8); Alkaline Phosphatase 80 U/L (46-116); Anion Gap 12.1 mEq/L (5-15); Aspartate Amino Transferase 19 U/L (15-37); Bilirubin,Total 0.3 mg/dL (0.2-1.0); Blood Urea Nitrogen 18 mg/dL (7-18); Carbon Dioxide 30 mmol/L (21.0-32.0); Chloride 106 mmol/L (98-107); Creatinine,Serum 0.95 mg/dL (0.55-1.02); Estimated Glomerular Filt Rate 58 ml/min (>60); GFR (African American) 70 ML/MIN (>60); Globulin 3.5 gm/dl (1.3-3.2); Glucose 109 mg/dL (74-106); Potassium 5.1 mmoL/L (3.5-5.1); Sodium 143 mmol/L (136-145); Total Protein,Serum 6.7 gm/dL (6.4-8.2)
== END ==
PROVIDERS: Visit Provider Internal Medicine Adolescent Medicine
DX: E53.8 Deficiency of other specified B group vitamins (principal)
CPT/HCPCS: 36415; 80053; 85025

== ENCOUNTER → 2018-07-16 16:27 | Outpatient (CLI) | payer MEDICARE, SELFPAY ==
--- NOTE | 2018-07-16 16:42 | XR_ITS ---
XR hip LT 2-3V w/pelvis HISTORY: ITS.REASON: LEFT HIP PAIN ORDERING PHYSICIAN: Adrián Swenson MD PATIENT AGE: 73 years COMPARISON: None FINDINGS: There are moderate to severe osteoarthritic changes of the left hip with decrease in the joint space and prominent osteophyte formation. Mild sclerosis of the femoral head. Moderate osteoarthritic changes are also present involving the right hip. No fracture or dislocation. There is sclerosis of the SI joints on both sides. Postsurgical changes of the lumbar spine. IMPRESSION: Moderate to severe osteoarthritis of the left hip, moderate osteoarthritis of the right hip with bilateral sacroiliac sclerosis
== END ==
PROVIDERS: PCP Internal Medicine Adolescent Medicine; Visit Provider Internal Medicine Adolescent Medicine
DX: M25.552 Pain in left hip (principal)
CPT/HCPCS: 73502

== ENCOUNTER 2018-07-31 14:26 | Outpatient (RCR) | payer MEDICARE, SELFPAY ==
--- NOTE | 2018-07-31 16:15 | HMH.PTOPEV ---
PT Outpatient Evaluation Rehab PT Outpatient Evaluation Start: 07/31/18 15:53 Freq: Status: Active Protocol: Document 07/31/18 15:53 VERONICA (Rec: 07/31/18 16:13 VERONICA [id number]) Electronically Signed By Favio Justice, PT 07/31/18 15:53 Outpatient Therapy Subjective History Subjective History Pt is a 73 year old female presenting to outpatient PT with reports of chronic L hip pain with the most recent exacerbation starting approx 3 weeks ago. Pt also reports hx of chronic radiculopathy to bilateral feet. Hx of cardivascular stent placement and lumbar spine fusion. Most recent diagnostics indicate progressed OA. She most recently received a Lidocane and Cortisone injection that has provided some relief. Chief Complaint Pain Spasms Stiff Clicks Paresthesia Symptom Type Ache Numbness Tingling Shooting Symptoms Relieved By Heat Prescription Meds Symptoms Aggravated By Sitting Standing Bending/Stooping Physical Activity Twisting Walking Lifting Prior Functional Limitations None Current Functional Limitations Reaching Lifting Housework Driving Sleeping Standing Sitting Squatting Recreation Activity Walking Stairs Balance Bending/Stooping Symptom Description Constant but Variable Level of pain today (0-10) 4 Pain scale - at its best (0-10) 4 Pain scale - at its worst (0-10) 8 Hip/Knee Eval Gait Observation General Gait Pattern Observation Antalgic Gait Decrease Weight Bear (L) Assistive Device Assisti
== END 2018-07-31 16:25 | disposition home or self-care (01) ==
LOC: PT 14:26
PROVIDERS: Visit Provider Internal Medicine Adolescent Medicine
DX: M25.552 Pain in left hip (principal)
CPT/HCPCS: 97010; 97014; 97163; G0283

== ENCOUNTER 2018-08-21 17:48 | Observation (INO) ==
--- NOTE | 2018-08-21 18:21 | Emergency Department Note ---
ED Disposition Clinical Impression: Left ureteral calculus Abdominal pain Qualifiers: Abdominal location: unspecified location Qualified Code(s): R10.9 - Unspecified abdominal pain Leukocytosis Qualifiers: Leukocytosis type: unspecified Qualified Code(s): D72.829 - Elevated white blood cell count, unspecified Disposition: Still a Patient Condition on Discharge: Fair Instructions: DI for Acute Abdomen Referrals: Adrián Swenson MD [Primary Care Provider] - - Critical Care Critical Care Time: No Attestation: On 08/21/18, the high probability of a clinically significant, sudden or life threatening deterioration of the following system(s) required my full and direct attention, intervention and personal management. The time I documented below is in addition to time spent performing reported procedures but includes the following listed in this critical care notation. Medical Decision Making - Agustin Inquiry Pt receiving controlled substance: Yes Agustin was queried for this patient: No Reason not queried -: Emergent pt cond-no time Risks and benefits of using a controlled substance: were not discussed with pt by me Vital Signs: 08/21/18 18:00 08/21/18 18:45 08/21/18 18:51 Temperature 97.8 F Temperature Source Oral Pulse Rate [Right Brachial] 70 66 Respiratory Rate 17 Blood Pressure [Right Arm] 151/62 H 152/67 H Blood Pressure Mean [Right Arm] 91 95 Blood Pressure Source [Right Arm] Automatic Cuff Automatic Cuff Blood Pressure Position [Right Arm] Sitting 02 Sat by Pulse Oximetry 100 94 L Oxygen Delivery Method Room Air Room Air - Lab Data Lab Results 08/21/18 18:16: Urine Color Yellow, Urine Appearance Sl cloudy, Urine pH 5.5, Ur Specific [place] 1.025, Urine Protein Negative, Urine Glucose (UA) Negative, Urine Ketones Negative, Urine Blood Negative, Urine Nitrate Negative, Urine Bilirubin Negative, Urine Urobilinogen 0.2, Ur Leukocyte Esterase Negative, Urine RBC Occasional, Urine WBC Occasional, Ur Squamous Epith Cells 10-20, Urine Bacteria 2+ 08/21/18 18:16: WBC 20.2 H* D, RBC 4.69, Hgb 15.1, Hct 47.5 H, MCV 101.3 H, MCH 32.3 H, MCHC 31.8, RDW 13.7, Plt Count 219, MPV 8.9, Neut % (Auto) 90.8 H, Lymph % (Auto) 5.0 L, [place] % (Auto) 3.6, Eos % (Auto) 0.4, Baso % (Auto) 0.2, Neut # (Auto) 18.3 H, Lymph # (Auto) 1.0, [place] # (Auto) 0.7, Eos # (Auto) 0.1, Baso # (Auto) 0.1, Total Counted 100, Neutrophils % (Manual) 93 H, Lymphocytes % (Manual) 4 L, Monocytes % (Manual) 3, Platelet Estimate Normal, RBC Morphology Normal 08/21/18 18:16: Sodium 138, Potassium 4.3, Chloride 102, Carbon Dioxide 28, Anion Gap 12.3, BUN 21 H D, Creatinine 1.48 H D, Estimated Creat Clear 54, Estimated GFR 35 L, Est GFR ( Amer) 42 L D, Glucose 135 H, Calcium 9.2, Total Bilirubin 0.6, AST 19 D, ALT 26, Alkaline Phosphatase 101, Total Protein 7.6, Albumin 3.3 L, Globulin 4.3 H, Albumin/Globulin Ratio 0.8 L Result diagrams: 08/21/18 18:16 08/21/18 18:16 Orders (Tests/Meds): ED MEDICATIONS Generic Name Dose Route Start Last Admin Trade Name Freq PRN Reason Stop Dose Admin Sodium Chloride 1,000 mls @ 999 mls/hr 08/21/18 18:15 08/21/18 18:12 Sod Chlor 0.9% 1000ml Bag IV 08/21/18 19:15 999 mls/hr .Q1H1M JAILYN Administration Levofloxacin/Dextrose 750 mg in 150 mls @ 100 mls/hr 08/21/18 19:30 08/21/18 19:47 Levofloxacin 750mg/150ml Premix IV 09/04/18 19:29 100 mls/hr Q24H JAILYN Administration Protocol Discontinued Medications Generic Name Dose Route Start Last Admin Trade Name Freq PRN Reason Stop Dose Admin Morphine Sulfate 4 mg 08/21/18 18:36 08/21/18 18:43 Morphine 4mg/Ml Syringe IV 08/21/18 18:37 4 mg ONCE ONE Administration Morphine Sulfate 4 mg 08/21/18 20:11 Morphine 4mg/Ml Syringe IV 08/21/18 20:12 ONCE ONE Ondansetron HCl 4 mg 08/21/18 18:36 08/21/18 18:43 Zofran 4mg/2ml Vial IV 08/21/18 18:37 4 mg ONCE ONE Administration ORDERS Category Date Time Status CT abdomen pelvis wo con Stat Cat Scan 08/21/18 19:07 Taken Urinalysis and Microscopic Stat Lab 08/21/18 18:16 Ordered Blood Culture Stat Micro 08/21/18 19:10 Received Urine Culture Stat Micro 08/21/18 18:16 Received - Physician Consults Physician Consulted: Ray (urology) Time: 19:08 Reason -: Urology Eval/Care Comment/Response: Discussed findings. Does not patient needs to be transferred to [facility] for urological intervention. Does recommend antibiotics given leukocytosis. I also discussed that I will be doing a CT scan to rule out diverticulitis given the patient's concern regarding this. Additional Consult: Imelda Swenson Time: 20:14 Reason -: Admission Comment/Response: Agrees to admit the patient to the hospital. We discussed the patient's clinical information, including history, exam, laboratory and radiology results and ED course. Per hospital procedure, I will write temporary bridge inpatient orders on the patient. Specific orders requested by the admitting physician: CT abdo/pelvis pending. Dr. Segura will f/u. Pain control, antibiotics, urology consult - Reevaluation(s) Time: 19:00 Reevaluation #1: Pain is improved. Patient is concerned about her left-sided abdominal pain and tenderness. States she did not have a blood pain or tenderness when she was 2 days ago, has a history of diverticulitis, concerned that this may be flaring up. Time: 20:13 Reevaluation #3: Severe pain has returned. Discussed admission and she is agreeable. Medical Decision Narrative: Prior abdo/pelvic CT: IMPRESSION: 1. There are at least 3 left proximal to mid ureteral calculi measuring 5 to 6 mm. The most distal left mid ureteral stone measures approximately 3 mm. There is mild obstructive uropathy proximal to the stones. 2. Left nephrolithiasis. 3. Multiple bibasilar pulmonary nodules. Consider outpatient dedicated chest CT with contrast for further evaluation Dictated By: Keshawn Smith MD Signed By: <Electronically signed by Keshawn Smith MD in OV> 08/19/18 1217 General Adult HPI - General Chief complaint: Abdominal Pain Stated complaint: Kidney stones Time Seen by Provider: 08/21/18 18:20 Mode of Arrival: Wheelchair Limitations: No Limitations Description of Symptoms (Recalled from ER Triage Doc. by RN): pt was seen p megan in week and diagnosed with kidney stone. transfer was arranged to [facility] but patient refused to go; pt was advised to return to er-but at [facility]-per md's rec if pain became intolerable. pt returns to ed for pain control. - History of Present Illness HPI narrative: Seen here on 08/19/18 for left flank pain and was diagnosed with left ureteral c alculi. Declined transfer at that time. She is supposed to see Dr. Pressley tomorrow here. She says she was doing okay until tonight when her pain being severe. Has had chills. Has had a low-grade temperature 99 degrees axillary at home. Nausea but no vomiting. Pain medication is not helping tonight. - Related Data Home Medications Medication Instructions Recorded Confirmed Linaclotide [Linzess] 290 mcg PO DAILY 10/15/17 08/21/18 Potassium Chloride [Klor-Con 10mEq 20 meq PO DAILY 10/15/17 08/21/18 tab] clonazePAM [Klonopin 0.5mg tablet] 0.5 mg PO DAILY 10/15/17 08/21/18 Estradiol 1 mg PO QDAY 03/15/18 08/21/18 Lisinopril/Hydrochlorothiazide 12.5 mg PO DAILY 03/15/18 08/21/18 [Lisinopril-Hctz 20-12.5 mg Tab] Aspirin 81 mg PO DAILY 03/16/18 08/21/18 Atorvastatin Calcium [Atorvastatin 20 mg PO DAILY 03/16/18 08/21/18 20mg Tab] Nebivolol HCl [Bystolic] 10 mg PO DAILY 04/25/18 08/21/18 Oxycodone HCl/Acetaminophen 1 each PO Q4-6H 08/21/18 08/21/18 [Percocet 7.5-325 mg Tablet] Allergies Allergy/AdvReac Type Severity Reaction Status Date / Time chlorhexidine Allergy Severe RASH Verified 08/19/18 11:18 [From Hibiclens] Iodinated Contrast Media - Allergy Intermediate Verified 08/19/18 11:18 Oral and [IODINATED CONTRAST MEDIA - IV DYE] povidone-iodine Allergy Intermediate I-RASH Verified 08/19/18 11:18 [From BETADINE] cephalexin Allergy Unknown Verified 08/19/18 11:18 ANYTHING OTHER THAN PAPER Allergy Unknown I-HIVES Uncoded 05/09/18 14:48 [facility] History - Hepatitis A Screen Drug use history?: No High risk sexual behaviors?: No History of sexually transmitted infection?: No Currently employed?: No Childcare worker?: No Do you have indoor plumbing?: Yes Do you have electricity?: Yes Attestation statement:: This patient has been screened for Hepatitis A risk factors. I have reviewed the patient's past medical history: Yes Medical History: Reports:: Anxiety, Coronary Artery Disease, Palpitations Denies:: Cancer, Diabetes Mellitus Type 1, Diabetes Mellitus Type 2, MRSA Other Medical History: Reports: Arthritis, Cataracts Comment: #4 PESSARY Laterality Cases: Bilateral: Arthroscopy Shoulder, Carpal Tunnel Release Other Surgeries: Yes: Appendectomy, Cardiac Catheterization, Cholecystectomy, Hysterectomy-Total Amputation: No Fractures: No Comment: OPEN CHOLY---1970. TV, BSO @ --1995. back surgery--2002. Cataract surgery, both eyes--2006. 2007. ROTATOR CUFF TEAR REPAIR, BOTH SHOULDERS---2008, 2009. RECTOCELE REPAIR, ENTEROCELE REPAIR, VAGINAL VAULT SUSPENSION, CYSTOSCOPY (DR. JO)---2014. HEART STENE PALCEMENT---2016. NOV---2016 - Social History Smoking Status: Unknown if ever smoked Alcohol Intake: never Alcohol Intake Frequency:: other Substance Use Type: denies use Occupational Status: retired Housing: house Household Members: spouse - Psychiatric History Expresses thoughts of harming self/others: None Suicide Plan Description: No Plan Pschychiatric History:: Reports:: Anxiety Family Hx:: No significant family history ROS Obtained: Yes All systems reviewed & no additional complaints - Constitutional Constitutional: Reports chills, Reports fever(s) - Gastrointestinal Gastrointestingal: Reports: abdominal pain, constipation - Genitourinary Female Genitourinary: Reports flank pain Physical Exam - General General appearance: alert Comment: Sitting in chair, uncomfortable - Head Head exam: atraumatic, normocephalic - Eye Eye exam: Present: normal appearance, PERRL, EOMI - ENT ENT exam: Present: mucous membranes moist - Neck Neck exam: Present: normal inspection, full ROM - Chest Chest inspection: Present: normal inspection, symmetric chest wall rise - Respiratory Respiratory exam: Present: normal lung sounds bilaterally. Absent: respiratory distress - Cardiovascular Cardiovascular exam: Present: regular rate, normal rhythm, normal heart sounds - Abdominal Exam Abdominal exam: Present: soft, tenderness. Absent: distention Abdominal tenderness: Present: LUQ, LLQ - Extremities Exam Extremities exam: Present: normal inspection - Back Exam Back exam: Present: CVA tenderness (L) - Neurological Exam Neurological exam: Present: alert, oriented X3 - Psychiatric Psychiatric exam: Present: normal affect
[2018-08-21 18:22] LABS: Microscopic, Urine URINE MICROSCOPIC (MICROSCOPIC)
[2018-08-21 18:24] LABS: Basophils # 0.1 K/mm3 (0-0.2); Basophils % 0.2 % (0.1-2.0); Eosinophils # 0.1 K/mm3 (0.0-0.4); Eosinophils % 0.4 % (0.1-12.0); Hematocrit 47.5 % (37.0-47.0); Hemoglobin 15.1 g/dL (12.2-16.2); Mean Corpuscular HGB Conc 31.8 g/dL (31.8-35.4); Mean Corpuscular Hemoglobin 32.3 pg (27.0-31.2); Mean Corpuscular Volume 101.3 fl (81-99); Mean Platelet Volume 8.9 fl (7.4-10.4); Monocytes # 0.7 K/mm3 (0.1-1.0); Monocytes % 3.6 % (1.7-9.3); Neutrophils # 18.3 K/mm3 (1.8-7.8); Neutrophils % 90.8 % (37.0-80.0); Platelet Count 219 K/mm3 (142-424); Red Blood Count 4.69 M/mm3 (4.20-5.40); Red Cell Distribution Width 13.7 % (11.5-17.5); White Blood Count 20.2 K/mm3 (4.8-10.8)
[2018-08-21 18:30] LABS: Appearance,Urine SL CLOUDY (Clear); Bilirubin,Urine Negative (Negative); Blood, Urine Negative (Negative); Color,Urine YELLOW (Yellow); Glucose,Urine (UA) Negative (Negative); Ketones,Urine Negative (Negative); Leukocyte Esterase,Urine Negative (Negative); PH,Urine 5.5 (5.0-8.5); Protein,Urine Negative (Negative); Specific Gravity, Urine 1.025 (1.005-1.030); Urobilinogen,Urine 0.2 EU/dl (0.2)
[2018-08-21 18:37] LABS: Albumin Level 3.3 gm/dL (3.4-5.0); Albumin/Globulin Ratio 0.8 (1.1-1.8); Anion Gap 12.3 mEq/L (5-15); Bilirubin,Total 0.6 mg/dL (0.2-1.0); Calcium 9.2 mg/dL (8.5-10.1); Globulin 4.3 gm/dl (1.3-3.2); Potassium 4.3 mmoL/L (3.5-5.1); Total Protein,Serum 7.6 gm/dL (6.4-8.2)
[2018-08-21 19:03] LABS: Lymphocytes % 4 % (10-50); Monocytes % 3 % (2-9); Neutrophils % 93 % (42-76); RBC Morphology Normal; Total Cells Counted 100
[2018-08-21 19:15] LABS: Bacteria,Urine 2+ /lpf; RBC,Urine Occasional #/hpf (0-3); WBC,Urine Occasional #/hpf (0-3)
[2018-08-22 07:31] LABS: Basophils % 0.2 % (0.1-2.0); Eosinophils # 0.1 K/mm3 (0.0-0.4); Monocytes # 0.8 K/mm3 (0.1-1.0); Red Blood Count 3.95 M/mm3 (4.20-5.40); Red Cell Distribution Width 13.9 % (11.5-17.5); White Blood Count 17.2 K/mm3 (4.8-10.8)
[2018-08-22 07:36] LABS: Anion Gap 11.2 mEq/L (5-15); Potassium 4.2 mmoL/L (3.5-5.1)
[2018-08-22 07:39] LABS: Eosinophils % 0.4 % (0.1-12.0); Lymphocytes # 1.3 K/mm3 (0.7-4.5); Lymphocytes % 7.7 % (10-50); Mean Corpuscular HGB Conc 31.5 g/dL (31.8-35.4); Mean Corpuscular Hemoglobin 31.9 pg (27.0-31.2); Mean Corpuscular Volume 101.4 fl (81-99); Mean Platelet Volume 8.2 fl (7.4-10.4); Monocytes % 4.6 % (1.7-9.3); Neutrophils % 87.1 % (37.0-80.0); Platelet Count 181 K/mm3 (142-424)
--- NOTE | 2018-08-22 07:39 | Pharmacy Consult Notes ---
[facility] VTE Monitoring - Patient Demographics Admission date: 08/22/18 Report Date: 08/22/18 Time: 07:39 Allergies/Adverse Reactions: Patient Allergies chlorhexidine [From Hibiclens] Allergy (Severe, Verified 08/19/18 11:18) RASH Iodinated Contrast Media - Oral and [IODINATED CONTRAST MEDIA - IV DYE] Allergy (Intermediate, Verified 08/19/18 11:18) povidone-iodine [From BETADINE] Allergy (Intermediate, Verified 08/19/18 11:18) I-RASH cephalexin Allergy (Unknown, Verified 08/19/18 11:18) ANYTHING OTHER THAN PAPER TAPE Allergy (Unknown, Uncoded 05/09/18 14:48) I-HIVES Height: 1.55 m Weight: 86.183 kg Patient Problems: Current Active Problems Left ureteral calculus (Acute) Abdominal pain (Acute) Leukocytosis (Acute) - VTE Risk Labs: VTE Related Lab Results Hgb 15.1 g/dL (12.2-16.2) 08/21/18 18:16 Hct 47.5 % (37.0-47.0) H 08/21/18 18:16 Plt Count 219 K/mm3 (142-424) 08/21/18 18:16 BUN 21 mg/dL (7-18) H D 08/21/18 18:16 Creatinine 1.48 mg/dL (0.55-1.02) H D 08/21/18 18:16 Estimated Creat Clear 54 mL/min (50-200) 08/21/18 18:16 Was VTE Risk Assessment Performed: Yes VTE Risk Level: Low Risk Clinical Trial Participant: No - Prophylaxis VTE Prophylaxis Ordered?: Yes Types of VTE Prophylaxis: TEDS Knee High
[2018-08-22 07:40] LABS: Hemoglobin 12.6 g/dL (12.2-16.2)
[2018-08-22 07:44] LABS: Calcium 7.9 mg/dL (8.5-10.1)
--- NOTE | 2018-08-22 09:15 | History & Physical Report ---
*Admission Date: 08/22/18 *Chief complaint: left flank pain *History of present illness: 73 year old female with a history of HTN, depression, CAD with stent placement and IBS presented to the ED with severe left flank pain that has been increasing over the last several days. Patient reports onset of hematuria on Sunday. She developed left flank pain 2 days later. She came to the ED on Sunday for evaluation or worsening pain and was sent home with percocet for outpatient FU. Pain continued to increase and she developed low grade subjective temps and nausea which brought her back to the ED last evening. In the ED, she was found to have leukocytosis of 20 with slight increase in creatinine at 1.48. CT abdomen/pelvis showed multiple Left proximal ureteral stones measuring up to 6 mm with moderate hydronephrosis/hydroureter and fat stranding, 2 more stones were noted distally. Patient was admitted for IV antibiotics and further evaluation. [facility] History I have reviewed the patient's past medical history: Yes Medical History: Reports:: Anxiety, Arrhythmia, Coronary Artery Disease, Palpitations Denies:: Cancer, Diabetes Mellitus Type 1, Diabetes Mellitus Type 2, MRSA Have you ever received a pneumonia vaccine?: No Have you received a flu vaccine this season?: Yes Other Medical History: Reports: Anemia, Arthritis, Cataracts Laterality Cases: Bilateral: Arthroscopy Shoulder, Carpal Tunnel Release Other Surgeries: Yes: Appendectomy, Cardiac Catheterization, Cholecystectomy, Hysterectomy-Total Amputation: No Fractures: No - *Social History Smoking Status: Former smoker Tobacco Type: cigarettes #Yrs smoked (if former smoker): 10 Alcohol Intake: never Alcohol Intake Frequency:: other Substance Use Type: denies use Occupational Status: retired Housing: house Household Members: spouse Travel in the last 8 weeks: None - Psychiatric History Expresses thoughts of harming self/others: None Suicide Plan Description: No Plan Pschychiatric History:: Reports:: Anxiety *Family Hx:: No significant family history Review of Systems - Review of Systems Review of systems:: pertinent systems reviewed and negative unless documented below - Constitutional Reports fever(s), Reports malaise - *Gastrointestinal Reports constipation, Reports nausea - *Genitourinary Reports blood in urine, Reports other Comments: left flank pain Meds Home Medications Medication Instructions Recorded Confirmed Type Linaclotide [Linzess] 290 mcg PO DAILY 10/15/17 08/21/18 History clonazePAM [Klonopin 0.5mg tablet] 0.5 mg PO BID 10/15/17 08/21/18 History Estradiol 1 mg PO QDAY 03/15/18 08/21/18 History Lisinopril/Hydrochlorothiazide 1 tab PO DAILY 03/15/18 08/22/18 History [Lisinopril-Hctz 20-12.5 mg Tab] Aspirin 81 mg PO DAILY 03/16/18 08/22/18 History Atorvastatin Calcium [Atorvastatin 20 mg PO HS 03/16/18 08/22/18 History 20mg Tab] Bioflav,Lemon/Vit Bcomp,C 1 each PO DAILY 08/21/18 08/21/18 History [Lipo-Flavonoid Plus Caplet] Oxycodone HCl/Acetaminophen 1 each PO Q4-6H 08/21/18 08/21/18 History [Percocet 7.5-325 mg Tablet] Nebivolol HCl [Bystolic] 10 mg PO DAILY 08/22/18 08/22/18 History Potassium Chloride [Klor-con 20 20 meq PO DAILY 08/22/18 08/22/18 History mEq tablet] Allergies Allergy/AdvReac Type Severity Reaction Status Date / Time adhesive tape Allergy Severe Hives Verified 08/22/18 09:42 chlorhexidine Allergy Severe RASH Verified 08/19/18 11:18 [From Hibiclens] Iodinated Contrast Media - Allergy Intermediate Unknown Verified 08/22/18 09:42 Oral and allergy [IODINATED CONTRAST MEDIA - reaction IV DYE] povidone-iodine Allergy Intermediate I-RASH Verified 08/19/18 11:18 [From BETADINE] cephalexin Allergy Unknown Unknown Verified 08/22/18 09:42 allergy reaction Exam Vital signs and Labs for Last 24 Hours: Temp Pulse Resp BP Pulse Ox 98.2 F 63 16 128/49 L 96 08/22/18 07:21 08/22/18 07:21 08/22/18 07:21 08/22/18 07:21 08/22/18 07:21 Laboratory Results - last 24 hr 08/21/18 18:16: Urine Color Yellow, Urine Appearance Sl cloudy, Urine pH 5.5, Ur Specific [place] 1.025, Urine Protein Negative, Urine Glucose (UA) Negative, Urine Ketones Negative, Urine Blood Negative, Urine Nitrate Negative, Urine Bilirubin Negative, Urine Urobilinogen 0.2, Ur Leukocyte Esterase Negative, Urine RBC Occasional, Urine WBC Occasional, Ur Squamous Epith Cells 10-20, Urine Bacteria 2+ 08/21/18 18:16: WBC 20.2 H* D, RBC 4.69, Hgb 15.1, Hct 47.5 H, MCV 101.3 H, MCH 32.3 H, MCHC 31.8, RDW 13.7, Plt Count 219, MPV 8.9, Neut % (Auto) 90.8 H, Lymph % (Auto) 5.0 L, [place] % (Auto) 3.6, Eos % (Auto) 0.4, Baso % (Auto) 0.2, Neut # (Auto) 18.3 H, Lymph # (Auto) 1.0, [place] # (Auto) 0.7, Eos # (Auto) 0.1, Baso # (Auto) 0.1, Total Counted 100, Neutrophils % (Manual) 93 H, Lymphocytes % (Manual) 4 L, Monocytes % (Manual) 3, Platelet Estimate Normal, RBC Morphology Normal 08/21/18 18:16: Sodium 138, Potassium 4.3, Chloride 102, Carbon Dioxide 28, Anion Gap 12.3, BUN 21 H D, Creatinine 1.48 H D, Estimated Creat Clear 54, Estimated GFR 35 L, Est GFR ( Amer) 42 L D, Glucose 135 H, Calcium 9.2, Total Bilirubin 0.6, AST 19 D, ALT 26, Alkaline Phosphatase 101, Total Protein 7.6, Albumin 3.3 L, Globulin 4.3 H, Albumin/Globulin Ratio 0.8 L 08/22/18 07:15: WBC 17.2 H, RBC 3.95 L, Hgb 12.6 D, Hct 40.0, MCV 101.4 H, MCH 31.9 H, MCHC 31.5 L, RDW 13.9, Plt Count 181, MPV 8.2, Neut % (Auto) 87.1 H, Lymph % (Auto) 7.7 L, [place] % (Auto) 4.6, Eos % (Auto) 0.4, Baso % (Auto) 0.2, Neut # (Auto) 15.0 H, Lymph # (Auto) 1.3, [place] # (Auto) 0.8, Eos # (Auto) 0.1, Baso # (Auto) 0.0 08/22/18 07:15: Sodium 137, Potassium 4.2, Chloride 103, Carbon Dioxide 27, Anion Gap 11.2, BUN 18, Creatinine 1.06 H D, Estimated Creat Clear 65, Estimated GFR 51 L, Est GFR ( Amer) 62 D, Glucose 129 H, Calcium 7.9 L D I & O for Last 24 hours: Intake & Output 08/19/18 08/20/18 08/21/18 08/22/18 11:59 11:59 11:59 11:59 Intake Total 800 / 800 Balance 800 / 800 Weight 190 lb Microbiology Reports for the Last 24 Hours: Microbiology 08/21/18 18:16 Urine,Clean Catch Urine Culture - Preliminary Narrative: Alert and oriented x3. Affect flat. Rate and rhythm regular. Lung sounds clear and equal. Abdomen, mildy distended, somewhat firm. LLQ tenderness, no rebound or guarding. LE no edema. Skin pink, warm and dry. ENT exam- mucous membranes dry. No acute neuro deficits. Assessment and Plan (1) Abdominal pain Current visit: Yes Status: Acute Qualifiers: Abdominal location: unspecified location Qualified Code(s): R10.9 - Unspecified abdominal pain Category: Medical Code(s): R10.9 - Unspecified abdominal pain (2) Left ureteral calculus Current visit: Yes Status: Acute Category: Medical Code(s): N20.1 - Calculus of ureter (3) Leukocytosis Current visit: Yes Status: Acute Qualifiers: Leukocytosis type: unspecified Qualified Code(s): D72.829 - Elevated white blood cell count, unspecified Category: Medical Code(s): D72.829 - Elevated white blood cell count, unspecified (4) Essential (primary) hypertension Current visit: Yes Status: Chronic Category: Medical Code(s): I10 - Essential (primary) hypertension (5) CAD (coronary artery disease) Current visit: Yes Status: Chronic Qualifiers: Coronary Disease-Associated Artery/Lesion type: [place] artery [place] vs. transplanted heart: [place] heart Associated angina: without angina Qualified Code(s): I25.10 - Atherosclerotic heart disease of [place] coronary artery without angina pectoris Category: Medical Code(s): I25.10 - Atherosclerotic heart disease of [place] coronary artery without angina pectoris (6) Irritable bowel syndrome with constipation Current visit: Yes Status: Chronic Category: Medical Code(s): K58.1 - Irritable bowel syndrome with constipation (7) UTI (urinary tract infection) Current visit: No Status: Acute Qualifiers: Urinary tract infection type: site unspecified Hematuria presence: with hematuria Qualified Code(s): N39.0 - Urinary tract infection, site not specified; R31.9 - Hematuria, unspecified Category: Medical Code(s): N39.0 - Urinary tract infection, site not specified - Assessment and plan all Dx Assessment and Plan for all problems:: Continue broad spectrum antibiotics pending urine culture. NPO for urology consult today.
--- NOTE | 2018-08-22 10:13 | Consult Report ---
*Admission Date: 08/22/18 *Chief complaint: L flank pain *History of present illness: 73 yo WF with several day h/o L flank pain with radiation to LLQ. CT on 08/19 shows 5 stones in L ureter with mild hydro. Pt was in ER 2 days ago with similar pain. WBC now 20 k and Cr higher at 1.4. She has associated gross hematuria and nausea. No fevers. [facility] History Medical History: Reports:: Anxiety, Arrhythmia, Coronary Artery Disease, Palpitations Denies:: Cancer, Diabetes Mellitus Type 1, Diabetes Mellitus Type 2, MRSA Have you ever received a pneumonia vaccine?: No Have you received a flu vaccine this season?: Yes Other Medical History: Reports: Anemia, Arthritis, Cataracts Laterality Cases: Bilateral: Arthroscopy Shoulder, Carpal Tunnel Release Other Surgeries: Yes: Appendectomy, Cardiac Catheterization, Cholecystectomy, Hysterectomy-Total Amputation: No Fractures: No - *Social History Smoking Status: Former smoker Tobacco Type: cigarettes #Yrs smoked (if former smoker): 10 Alcohol Intake: never Alcohol Intake Frequency:: other Substance Use Type: denies use Occupational Status: retired Housing: house Household Members: spouse Travel in the last 8 weeks: None - Psychiatric History Expresses thoughts of harming self/others: None Suicide Plan Description: No Plan Pschychiatric History:: Reports:: Anxiety *Family Hx:: No significant family history Review of Systems - Constitutional Reports body ache(s), Reports fatigue - *Cardiovascular Reports shortness of breath - *Genitourinary Reports blood in urine - *Musculoskeletal Reports back pain Meds Home Medications Medication Instructions Recorded Confirmed Type Linaclotide [Linzess] 290 mcg PO DAILY 10/15/17 08/21/18 History clonazePAM [Klonopin 0.5mg tablet] 0.5 mg PO BID 10/15/17 08/21/18 History Estradiol 1 mg PO QDAY 03/15/18 08/21/18 History Lisinopril/Hydrochlorothiazide 1 tab PO DAILY 03/15/18 08/22/18 History [Lisinopril-Hctz 20-12.5 mg Tab] Aspirin 81 mg PO DAILY 03/16/18 08/22/18 History Atorvastatin Calcium [Atorvastatin 20 mg PO HS 03/16/18 08/22/18 History 20mg Tab] Bioflav,Lemon/Vit Bcomp,C 1 each PO DAILY 08/21/18 08/21/18 History [Lipo-Flavonoid Plus Caplet] Oxycodone HCl/Acetaminophen 1 each PO Q4-6H 08/21/18 08/21/18 History [Percocet 7.5-325 mg Tablet] Nebivolol HCl [Bystolic] 10 mg PO DAILY 08/22/18 08/22/18 History Potassium Chloride [Klor-con 20 20 meq PO DAILY 08/22/18 08/22/18 History mEq tablet] Allergies Allergy/AdvReac Type Severity Reaction Status Date / Time adhesive tape Allergy Severe Hives Verified 08/22/18 09:42 chlorhexidine Allergy Severe RASH Verified 08/19/18 11:18 [From Hibiclens] Iodinated Contrast Media - Allergy Intermediate Unknown Verified 08/22/18 09:42 Oral and allergy [IODINATED CONTRAST MEDIA - reaction IV DYE] povidone-iodine Allergy Intermediate I-RASH Verified 08/19/18 11:18 [From BETADINE] cephalexin Allergy Unknown Unknown Verified 08/22/18 09:42 allergy reaction Exam Vital signs and Labs for Last 24 Hours: Temp Pulse Resp BP Pulse Ox 98.2 F 63 16 128/49 L 96 08/22/18 07:21 08/22/18 07:21 08/22/18 07:21 08/22/18 07:21 08/22/18 07:21 Laboratory Results - last 24 hr 08/21/18 18:16: Urine Color Yellow, Urine Appearance Sl cloudy, Urine pH 5.5, Ur Specific [place] 1.025, Urine Protein Negative, Urine Glucose (UA) Negative, Urine Ketones Negative, Urine Blood Negative, Urine Nitrate Negative, Urine Bilirubin Negative, Urine Urobilinogen 0.2, Ur Leukocyte Esterase Negative, Urine RBC Occasional, Urine WBC Occasional, Ur Squamous Epith Cells 10-20, Urine Bacteria 2+ 08/21/18 18:16: WBC 20.2 H* D, RBC 4.69, Hgb 15.1, Hct 47.5 H, MCV 101.3 H, MCH 32.3 H, MCHC 31.8, RDW 13.7, Plt Count 219, MPV 8.9, Neut % (Auto) 90.8 H, Lymph % (Auto) 5.0 L, [place] % (Auto) 3.6, Eos % (Auto) 0.4, Baso % (Auto) 0.2, Neut # (Auto) 18.3 H, Lymph # (Auto) 1.0, [place] # (Auto) 0.7, Eos # (Auto) 0.1, Baso # (Auto) 0.1, Total Counted 100, Neutrophils % (Manual) 93 H, Lymphocytes % (Manual) 4 L, Monocytes % (Manual) 3, Platelet Estimate Normal, RBC Morphology Normal 08/21/18 18:16: Sodium 138, Potassium 4.3, Chloride 102, Carbon Dioxide 28, Anion Gap 12.3, BUN 21 H D, Creatinine 1.48 H D, Estimated Creat Clear 54, Estimated GFR 35 L, Est GFR ( Amer) 42 L D, Glucose 135 H, Calcium 9.2, Total Bilirubin 0.6, AST 19 D, ALT 26, Alkaline Phosphatase 101, Total Protein 7.6, Albumin 3.3 L, Globulin 4.3 H, Albumin/Globulin Ratio 0.8 L 08/22/18 07:15: WBC 17.2 H, RBC 3.95 L, Hgb 12.6 D, Hct 40.0, MCV 101.4 H, MCH 31.9 H, MCHC 31.5 L, RDW 13.9, Plt Count 181, MPV 8.2, Neut % (Auto) 87.1 H, Lymph % (Auto) 7.7 L, [place] % (Auto) 4.6, Eos % (Auto) 0.4, Baso % (Auto) 0.2, Neut # (Auto) 15.0 H, Lymph # (Auto) 1.3, [place] # (Auto) 0.8, Eos # (Auto) 0.1, Baso # (Auto) 0.0 08/22/18 07:15: Sodium 137, Potassium 4.2, Chloride 103, Carbon Dioxide 27, Anion Gap 11.2, BUN 18, Creatinine 1.06 H D, Estimated Creat Clear 65, Estimated GFR 51 L, Est GFR ( Amer) 62 D, Glucose 129 H, Calcium 7.9 L D I & O for Last 24 hours: Intake & Output 08/19/18 08/20/18 08/21/18 08/22/18 23:59 23:59 23:59 23:59 Intake Total 800 / 800 Balance 800 / 800 Weight 86.183 kg 86.183 kg Microbiology Reports for the Last 24 Hours: Microbiology 08/21/18 18:16 Urine,Clean Catch Urine Culture - Preliminary Narrative: Moderately obese white female in mild discomfort Pupils equal round reactive to light Normal respiratory effort Abdomen tender in the left lower quadrant Alert and oriented x3 Internal Medicine - CN: Reslt - Labs CBC & Chem 7: 08/22/18 07:15 08/22/18 07:15 Labs: Short CBC 08/21/18 08/22/18 Range/Units 18:16 07:15 WBC 20.2 H* D 17.2 H (4.8-10.8) K/mm3 Hgb 15.1 12.6 D (12.2-16.2) g/dL Hct 47.5 H 40.0 (37.0-47.0) % Plt Count 219 181 (142-424) K/mm3 BMP 08/21/18 08/22/18 18:16 07:15 Sodium 138 137 Potassium 4.3 4.2 Chloride 102 103 Carbon Dioxide 28 27 BUN 21 H D 18 Creatinine 1.48 H D 1.06 H D Glucose 135 H 129 H Calcium 9.2 7.9 L D Liver Function 08/21/18 Range/Units 18:16 Total Bilirubin 0.6 (0.2-1.0) mg/dL AST 19 D (15-37) U/L ALT 26 (12-78) U/L Alkaline Phosphatase 101 (46-116) U/L Albumin 3.3 L (3.4-5.0) gm/dL Urine 08/21/18 Range/Units 18:16 Urine Color Yellow (Yellow) Urine Appearance Sl cloudy (Clear) Urine pH 5.5 (5.0-8.5) Ur Specific [place] 1.025 (1.005-1.030) Urine Protein Negative (Negative) Urine Glucose (UA) Negative (Negative) Assessment and Plan (1) Left ureteral calculus Current visit: Yes Status: Acute Category: Medical Code(s): N20.1 - Calculus of ureter Patient with multiple left ureteral stones and elevated count. Her white count slightly improved this morning and her creatinine has improved as well. We discussed proceeding with ureteral stent placement in order to rid the kidney of any infection that has set up and she will need a secondary procedure after course of antibiotics to go back and correct the multiple ureteral stones. Discussed the procedure and complications with the patient. She wishes to proceed.
[2018-08-22 11:49] LABS: Lymphocytes % 7 % (10-50); Macrocytosis 1+; Monocytes % 5 % (2-9); Neutrophils % 88 % (42-76); Total Cells Counted 100
--- NOTE | 2018-08-22 14:48 | Operative Note ---
Date of procedure: 08/22/18 Pre-op Diagnosis:: Multiple left ureteral calculi with obstruction Post-op Diagnosis:: Same Procedure performed:: Cystoscopy with left ureteral stent placement Surgeon:: Tommy Pressley MD [employer] OPERATOR:: Mo Teixeira Anesthesia: GETA Estimated blood loss (mL): 0 Operative findings:: 73-year-old white female with left renal colic noted to have at least 5 ureteral stones with mild obstruction. White count is 20,000 on admission last night. We have discussed treatment options and she wishes to proceed with left ureteral stent placement. Stone extraction not considered today as she is potentially septic. Operative note:: Patient taken to the operating room after informed consent was obtained. Is p laced on the operating room table in the supine position and general anesthesia administered. She has been given preoperative Levaquin on the floor. She was placed into the dorsolithotomy position after analgesia. She was prepped and draped in the standard surgical fashion. A 21 Maltese cystoscope passed into the urethra and the bladder without difficulty. The bladder was examined in a systematic fashion. There was a 6 mm and 3 mm stone noted in the bladder. There was evidence of a cystocele and a couple of tacks were placed into the vaginal orifice to raise the floor the bladder. No mucosal abnormalities were noted. A guidewire was passed into the left ureteral orifice and under fluoroscopy passed up to the left renal pelvis. There is no evidence of calcifications in the proximal ureter. A 6 x 24 [place]ese stent was then passed over the guidewire and the guidewire removed. Fluoroscopy revealed a good curl proximally and distally. String was left on for later removal. Scope removed patient tolerated the procedure well without complications. Discharged to the recovery room back to the floor. Anticipate she will be kept overnight and be discharged home with some oral pain medication and antibiotics. I will plan on seeing her back in 1 week and follow-up. Condition: stable Disposition: PACU Specimens:: none Complications:: none
--- NOTE | 2018-08-22 15:00 | Progress Note ---
[facility] Anesthesia Checklist - Patient Identification Patient Identification: Arm Band - Structural Data Admitted From: Inpatient Planned Operative Procedure/s: cystoscopy with stent placement Consent for Planned Operative Procedure(s) Verified: Yes Verified Documents: Surgical Consent, History and Physical - NPO Status Verified Time NPO: 00:00 - Additional verifications Anesthesia Reactions: No - Airway Assessment C-Spine Mobility Assessed: Yes TMJ Mobility Assessed: Yes - Neurological Assessment Level of Consciousness: Awake, Alert - Anesthesia Plan Anesthesia Risk discussed: Yes Anesthesia Plan: Verified ASA Class: III Anesthesia Type: General [facility] History I have reviewed the patient's past medical history: Yes Medical History: Reports:: Anxiety, Arrhythmia, Coronary Artery Disease, Palpitations Denies:: Cancer, Diabetes Mellitus Type 1, Diabetes Mellitus Type 2, MRSA Have you ever received a pneumonia vaccine?: No Have you received a flu vaccine this season?: Yes Other Medical History: Reports: Anemia, Arthritis, Cataracts Laterality Cases: Bilateral: Arthroscopy Shoulder, Carpal Tunnel Release Other Surgeries: Yes: Appendectomy, Cardiac Catheterization, Cholecystectomy, Hysterectomy-Total Amputation: No Fractures: No - *Social History Smoking Status: Former smoker Tobacco Type: cigarettes #Yrs smoked (if former smoker): 10 Alcohol Intake: never Alcohol Intake Frequency:: other Substance Use Type: denies use Occupational Status: retired Housing: house Household Members: spouse Travel in the last 8 weeks: None - Psychiatric History Expresses thoughts of harming self/others: None Suicide Plan Description: No Plan Pschychiatric History:: Reports:: Anxiety *Family Hx:: No significant family history
--- NOTE | 2018-08-22 15:02 | Progress Note ---
[facility] Anesthesia Record Part II Discharge Time: 15:20 Destination: 2nd floor PACU nurse assessment reviewed?: Yes Patient Condition:: Good Anesthesia Complications:: None Swallowing reflex intact?: Yes Cyanosis?: No
--- NOTE | 2018-08-22 15:02 | Progress Note ---
[facility] Anesthesia Record Part I Intake, IV Amount: 600 Estimated blood loss (mL): 0 Urine output (mL): 0 Blood Pressure: 133/61 SaO2: 93 Pulse Rate: 89 Respiratory Rate: 16 Temperature: 97.7 F Patient is:: Drowsy, Stable Stable to PACU at:: 14:50
--- NOTE | 2018-08-23 08:52 | Progress Note ---
Internal Medicine - PN: Subj *Date: 08/23/18 *Time: 08:30 Interval history: Remained hemodynamically stable overnight. Developed fever to 100.5 T-max yesterday after her procedure. Has remained afebrile for the past 12 hours. Tolerating p.o. intake. States her left flank pain is improving. Passing dark grains of sand in her urine. Denies any nausea, vomiting, headache. Still feels really tired and weak. Additionally constipated and would like a stool softener Exam Vital signs and Labs for Last 24 Hours: Temp Pulse Resp BP Pulse Ox 100.5 F H 95 H 20 132/53 L 93 L 08/22/18 23:55 08/22/18 23:55 08/22/18 23:55 08/22/18 23:55 08/22/18 23:55 Laboratory Results - last 24 hr 08/22/18 07:15: Total Counted 100, Neutrophils % (Manual) 88 H, Lymphocytes % (Manual) 7 L, Monocytes % (Manual) 5, Platelet Estimate Normal, Macrocytosis 1+ I & O for Last 24 hours: Intake & Output 08/20/18 08/21/18 08/22/18 08/23/18 23:59 23:59 23:59 23:59 Intake Total 800 / 800 840 / 840 Output Total 1000 / 1000 500 / 500 Balance 800 / 800 -160 / -160 -500 / -500 Weight 86.183 kg 86.183 kg Microbiology Reports for the Last 24 Hours: Microbiology 08/21/18 18:16 Urine,Clean Catch Urine Culture - Final Multiple organisms, suggests contamination. - Constitutional no acute distress Comments: Alert and oriented x3. Affect flat. Rate and rhythm regular. no M/R/G Lung sounds clear and equal. Abdomen, protuberant, non tender, minimal CVA tenderness on left (interval improvement) LE no edema. Skin pink, warm and dry. ENT exam- mucous membranes dry. No acute neuro deficits. Assessment and Plan (1) Abdominal pain Current visit: Yes Status: Acute Qualifiers: Abdominal location: unspecified location Qualified Code(s): R10.9 - Unspecified abdominal pain Category: Medical Code(s): R10.9 - Unspecified abdominal pain (2) Left ureteral calculus Current visit: Yes Status: Acute Category: Medical Code(s): N20.1 - Calculus of ureter (3) Leukocytosis Current visit: Yes Status: Acute Qualifiers: Leukocytosis type: unspecified Qualified Code(s): D72.829 - Elevated white blood cell count, unspecified Category: Medical Code(s): D72.829 - Elevated white blood cell count, unspecified (4) Essential (primary) hypertension Current visit: Yes Status: Chronic Category: Medical Code(s): I10 - Essential (primary) hypertension (5) CAD (coronary artery disease) Current visit: Yes Status: Chronic Qualifiers: Coronary Disease-Associated Artery/Lesion type: [place] artery [place] vs. transplanted heart: [place] heart Associated angina: without angina Qualified Code(s): I25.10 - Atherosclerotic heart disease of [place] coronary artery without angina pectoris Category: Medical Code(s): I25.10 - Atherosclerotic heart disease of [place] coronary artery without angina pectoris (6) Irritable bowel syndrome with constipation Current visit: Yes Status: Chronic Category: Medical Code(s): K58.1 - Irritable bowel syndrome with constipation (7) UTI (urinary tract infection) Current visit: No Status: Acute Qualifiers: Urinary tract infection type: site unspecified Hematuria presence: with hematuria Qualified Code(s): N39.0 - Urinary tract infection, site not specified; R31.9 - Hematuria, unspecified Category: Medical Code(s): N39.0 - Urinary tract infection, site not specified - Assessment and plan all Dx Assessment and Plan for all problems:: S/p placement of stent yesterday Continuing Abx for UTI/Pyelo. Progressing PO intake. Not ready for DC. If remains hemodynamically stable, Afebrile for the next 24hrs, DC home tomorrow to complete Abx course.
--- NOTE | 2018-08-24 07:47 | Discharge Summary ---
General - General Admission date:: 08/21/18 Discharge date: 08/24/18 HPI HPI: 73 year old female with a history of HTN, depression, CAD with stent placement and IBS presented to the ED with severe left flank pain that has been increasing over the last several days. Patient reports onset of hematuria on Sunday. She developed left flank pain 2 days later. She came to the ED on Sunday for evaluation or worsening pain and was sent home with percocet for outpatient FU. Pain continued to increase and she developed low grade subjective temps and nausea which brought her back to the ED last evening. In the ED, she was found to have leukocytosis of 20 with slight increase in creatinine at 1.48. CT abdomen/pelvis showed multiple Left proximal ureteral stones measuring up to 6 mm with moderate hydronephrosis/hydroureter and fat stranding, 2 more stones were noted distally. Patient was admitted for IV antibiotics and further evaluation. Hospital Course Hospital Course: Patient admitted for nephrolithiasis with obstruction and hydronephrosis, pyelonephritis due to obstruction, and acute kidney injury. Started on antibiotics. Evaluated by urology with a decision to take her to the OR and place a left ureteral stent. Stones were removed and stent placed. She tolerated the procedure well with improvement in her clinical exam. Cultures but no single pathogen for which to narrow antibiotics. Patient was continued on Nico transition to oral with plan to complete 10 days total of antibiotics. Remained hemodynamically stable. Afebrile for more than 24 hours at time of discharge. Tolerating regular diet and good p.o. fluid intake. Medically stable for discharge home with follow-up in the next week with our clinic as well as urology for removal of stent Objective Vital signs: Temp Pulse Resp BP Pulse Ox 98.3 F 76 18 126/58 L 93 L 08/24/18 04:00 08/24/18 04:00 08/24/18 04:00 08/24/18 04:00 08/24/18 04:00 Narrative: No acute distress, Alert and oriented x3. Affect flat. Rate and rhythm regular. no M/R/G Lung sounds clear and equal. Abdomen, protuberant, non tender, minimal CVA tenderness on left (interval improvement) LE no edema. Skin pink, warm and dry. ENT exam- mucous membranes dry. No acute neuro deficits. Results Labs on day of discharge: Preliminary micro results at discharge 08/21/18 19:10 Blood Culture - Preliminary Blood NO GROWTH AFTER 48 HOURS 08/21/18 19:00 Blood Culture - Preliminary Blood NO GROWTH AFTER 48 HOURS DS: Diagnosis - Discharge Diagnosis (1) Abdominal pain Status: Acute (2) Left ureteral calculus Status: Acute (3) Leukocytosis Status: Acute (4) Essential (primary) hypertension Status: Chronic (5) CAD (coronary artery disease) Status: Chronic (6) Irritable bowel syndrome with constipation Status: Chronic (7) UTI (urinary tract infection) Status: Acute Discharge Plan - Patient Discharge Instructions ACTIVITY: Continue current activity DIET: continue same diet - Follow up Plan Follow up with: Adrián Swenson MD [Primary Care Provider] - 1 week Disposition: Home, Self-[facility] Medications: Home Medications Medication Instructions Recorded Confirmed Type Linaclotide [Linzess] 290 mcg PO DAILY 10/15/17 08/21/18 History clonazePAM [Klonopin 0.5mg tablet] 0.5 mg PO BID 10/15/17 08/21/18 History Estradiol 1 mg PO QDAY 03/15/18 08/21/18 History Lisinopril/Hydrochlorothiazide 1 tab PO DAILY 03/15/18 08/22/18 History [Lisinopril-Hctz 20-12.5 mg Tab] Aspirin 81 mg PO DAILY 03/16/18 08/22/18 History Atorvastatin Calcium [Atorvastatin 20 mg PO HS 03/16/18 08/22/18 History 20mg Tab] Bioflav,Lemon/Vit Bcomp,C 1 each PO DAILY 08/21/18 08/21/18 History [Lipo-Flavonoid Plus Caplet] Oxycodone HCl/Acetaminophen 1 each PO Q4-6H 08/21/18 08/21/18 History [Percocet 7.5-325 mg Tablet] Nebivolol HCl [Bystolic] 10 mg PO DAILY 08/22/18 08/22/18 History Potassium Chloride [Klor-con 20 20 meq PO DAILY 08/22/18 08/22/18 History mEq tablet] levoFLOXacin [Levaquin 750mg 750 mg PO DAILY #5 tab 08/23/18 Rx tablet] Prescriptions/Medication Reconciliation: New levoFLOXacin [Levaquin 750mg tablet] 750 mg PO DAILY #5 tab Continue clonazePAM [Klonopin 0.5mg tablet] 0.5 mg PO BID Estradiol 1 mg PO QDAY Lisinopril/Hydrochlorothiazide [Lisinopril-Hctz 20-12.5 mg Tab] 1 tab PO DAILY Atorvastatin Calcium [Atorvastatin 20mg Tab] 20 mg PO HS Oxycodone HCl/Acetaminophen [Percocet 7.5-325 mg Tablet] 1 each PO Q4-6H Bioflav,Lemon/Vit Bcomp,C [Lipo-Flavonoid Plus Caplet] 1 each PO DAILY Nebivolol HCl [Bystolic] 10 mg PO DAILY Linaclotide [Linzess] 290 mcg PO DAILY Aspirin 81 mg PO DAILY Potassium Chloride [Klor-con 20 mEq tablet] 20 meq PO DAILY
== END 2018-08-24 13:45 | disposition home or self-care (01) ==
LOC: 2ND 17:48 → ER 17:48 → 2ND 20:39
PROVIDERS: ADMIT Emergency Medicine; ATTEND Internal Medicine Adolescent Medicine
DX: K58.1 Irritable bowel syndrome with constipation; Z87.19 Personal history of other diseases of the digestive system; I25.10 Atherosclerotic heart disease of native coronary artery without angina pectoris; I10 Essential (primary) hypertension; N13.6 Pyonephrosis; K59.00 Constipation, unspecified; Z88.8 Allergy status to other drugs, medicaments and biological substances; Z79.899 Other long term (current) drug therapy; Z79.82 Long term (current) use of aspirin; Z86.79 Personal history of other diseases of the circulatory system; Z91.048 Other nonmedicinal substance allergy status; D72.829 Elevated white blood cell count, unspecified; N20.1 Calculus of ureter; N39.0 Urinary tract infection, site not specified
CPT/HCPCS: 36415; 74176; 74450; 80048; 80053; 81001; 85007; 85025; 87040; 87086; 96365; 96367; 96375; 96376; 99285; C1769; C2617; G0378; J1956; J2405

== ENCOUNTER → 2018-08-29 13:06 | Outpatient (CLI) | payer MEDICARE, SELFPAY ==
--- NOTE | 2018-08-29 13:14 | XR_ITS ---
XR KUB HISTORY: ITS.REASON: Kidney Stones ORDERING PHYSICIAN: Tommy Pressley MD PATIENT AGE: 73 years COMPARISON: 08/21/2018 FINDINGS: Left ureteral stent remains in place. The distal aspect stent overlies the symphysis pubis and may be within a prolapsed bladder. Proximal aspect overlies the left upper quadrant. There is a small calcific density overlying the lower aspect of the ureteral stent measuring 5 mm and could represent residual stone fragment. There is sclerosis of the SI joints and there are degenerative and postsurgical changes of the lumbar spine with levoscoliosis. Osteoarthritic changes are present. Well. IMPRESSION: Left ureteral stent in place with suspected residual distal ureteral stone at 5 mm
== END ==
PROVIDERS: PCP Internal Medicine Adolescent Medicine; Visit Provider Urology
DX: N20.0 Calculus of kidney (principal)
CPT/HCPCS: 74018

== ENCOUNTER → 2018-09-12 11:47 | Outpatient (CLI) | payer MEDICARE, SELFPAY ==
--- NOTE | 2018-09-12 11:54 | XR_ITS ---
XR KUB HISTORY: Left-sided kidney stone ITS.REASON: Kidney Stones ORDERING PHYSICIAN: Tommy Pressley MD PATIENT AGE: 73 years COMPARISON: 08/29/2018 FINDINGS: Left ureteral stent has been removed. There is a small calcific density in the left pelvic region. This however does have a central lucency consistent with a phlebolith. There are degenerative postsurgical changes of lumbar spine. There is sclerosis of both SI joints IMPRESSION: Interval removal of left ureteral stent with no definite ureteral calculus evident
== END ==
PROVIDERS: PCP Internal Medicine Adolescent Medicine; Visit Provider Urology
DX: N20.0 Calculus of kidney (principal)
CPT/HCPCS: 74018

== ENCOUNTER → 2018-09-27 15:24 | Outpatient (CLI) | payer MEDICARE, SELFPAY ==
[2018-09-27 15:44] LABS: Basophils # 0.1 K/mm3 (0-0.2); Basophils % 0.7 % (0.1-2.0); Eosinophils # 0.2 K/mm3 (0.0-0.4); Eosinophils % 2.3 % (0.1-12.0); Hematocrit 41.3 % (37.0-47.0); Hemoglobin 14.3 g/dL (12.2-16.2); Lymphocytes # 1.9 K/mm3 (0.7-4.5); Lymphocytes % 20.1 % (10-50); Mean Corpuscular HGB Conc 34.6 g/dL (31.8-35.4); Mean Corpuscular Hemoglobin 33.2 pg (27.0-31.2); Mean Platelet Volume 8.2 fl (7.4-10.4); Monocytes # 0.4 K/mm3 (0.1-1.0); Monocytes % 4.2 % (1.7-9.3); Neutrophils # 6.8 K/mm3 (1.8-7.8); Neutrophils % 72.8 % (37.0-80.0); Platelet Count 215 K/mm3 (142-424); Red Cell Distribution Width 13.3 % (11.5-17.5); White Blood Count 9.3 K/mm3 (4.8-10.8)
[2018-09-27 16:24] LABS: Alanine Aminotransferase 21 U/L (12-78); Albumin Level 3.2 gm/dL (3.4-5.0); Albumin/Globulin Ratio 0.9 (1.1-1.8); Alkaline Phosphatase 84 U/L (46-116); Anion Gap 12.9 mEq/L (5-15); Aspartate Amino Transferase 12 U/L (15-37); Bilirubin,Total 0.2 mg/dL (0.2-1.0); Blood Urea Nitrogen 14 mg/dL (7-18); Calcium 9.4 mg/dL (8.5-10.1); Carbon Dioxide 27 mmol/L (21.0-32.0); Chloride 106 mmol/L (98-107); Creatinine,Serum 0.94 mg/dL (0.55-1.02); Estimated Glomerular Filt Rate 59 ml/min (>60); GFR (African American) 71 ML/MIN (>60); Globulin 3.6 gm/dl (1.3-3.2); Glucose 86 mg/dL (74-106); Potassium 3.9 mmoL/L (3.5-5.1); Sodium 142 mmol/L (136-145); Total Protein,Serum 6.8 gm/dL (6.4-8.2)
== END ==
PROVIDERS: Visit Provider Internal Medicine Adolescent Medicine
DX: R10.30 Lower abdominal pain, unspecified (principal)
CPT/HCPCS: 36415; 80053; 85025

== ENCOUNTER → 2018-10-18 17:52 | Outpatient (CLI) | payer MEDICARE, SELFPAY ==
[2018-10-18 18:32] LABS: Basophils # 0.1 K/mm3 (0-0.2); Basophils % 0.4 % (0.1-2.0); Eosinophils # 0.1 K/mm3 (0.0-0.4); Eosinophils % 1.1 % (0.1-12.0); Lymphocytes # 1.9 K/mm3 (0.7-4.5); Lymphocytes % 16.6 % (10-50); Mean Corpuscular Volume 96.5 fl (81-99); Mean Platelet Volume 8.4 fl (7.4-10.4); Monocytes # 0.5 K/mm3 (0.1-1.0); Monocytes % 3.9 % (1.7-9.3); Neutrophils # 9.1 K/mm3 (1.8-7.8); Platelet Count 278 K/mm3 (142-424); Red Blood Count 4.36 M/mm3 (4.20-5.40); Red Cell Distribution Width 13.2 % (11.5-17.5); White Blood Count 11.7 K/mm3 (4.8-10.8)
[2018-10-18 18:47] LABS: Mean Corpuscular HGB Conc 33.8 g/dL (31.8-35.4); Mean Corpuscular Hemoglobin 32.4 pg (27.0-31.2)
[2018-10-18 18:49] LABS: Hemoglobin 14.2 g/dL (12.2-16.2)
[2018-10-18 19:18] LABS: Alanine Aminotransferase 22 U/L (12-78); Albumin Level 3.5 gm/dL (3.4-5.0); Alkaline Phosphatase 94 U/L (46-116); Anion Gap 17.3 mEq/L (5-15); Aspartate Amino Transferase 15 U/L (15-37); Bilirubin,Total 0.3 mg/dL (0.2-1.0); Blood Urea Nitrogen 21 mg/dL (7-18); Calcium 9.4 mg/dL (8.5-10.1); Carbon Dioxide 23 mmol/L (21.0-32.0); Chloride 103 mmol/L (98-107); Creatinine,Serum 0.86 mg/dL (0.55-1.02); Estimated Glomerular Filt Rate 65 ml/min (>60); GFR (African American) 78 ML/MIN (>60); Globulin 3.6 gm/dl (1.3-3.2); Glucose 90 mg/dL (74-106); Potassium 4.3 mmoL/L (3.5-5.1); Sodium 139 mmol/L (136-145); Total Protein,Serum 7.1 gm/dL (6.4-8.2)
== END ==
PROVIDERS: Visit Provider Internal Medicine Adolescent Medicine
DX: I10 Essential (primary) hypertension (principal)
CPT/HCPCS: 36415; 80053; 85025

== ENCOUNTER → 2018-10-24 12:16 | Outpatient (CLI) | payer MEDICARE, SELFPAY ==
--- NOTE | 2018-10-24 12:21 | XR_ITS ---
XR hip LT 2-3V w/pelvis HISTORY: ITS.REASON: left hip pain ORDERING PHYSICIAN: Shahrzad Abebe MD PATIENT AGE: 73 years COMPARISON: 07/16/2018 FINDINGS: There are severe osteoarthritic changes of the left hip with loss of the joint space superiorly and prominent osteophyte formation. Mild osteoarthritic changes are present involving the right hip. There is sclerosis of the SI joints. No fracture or dislocation. No lytic or blastic change. IMPRESSION: Severe osteoarthritis of the left hip appear slightly progressed when compared to the previous exam Sclerosis of the SI joints with mild osteoarthritis of the right hip
--- NOTE | 2018-10-24 12:44 | XR_ITS ---
EXAM: XR lumbar spine min 4V HISTORY: Left hip pain ITS.REASON: hip pain ORDERING PHYSICIAN: Shahrzad Abebe MD PATIENT AGE: 73 years COMPARISON: None FINDINGS: There is mild lower lumbar scoliosis convex left. There has been prior posterior fixation at L4 and L5 with interpedicular screws. Severe degenerative disc disease is present at L2-L3 and L3-L4. There is bilateral sacroiliac sclerosis. No acute fracture or dislocation. IMPRESSION: Normal alignment with postsurgical change and severe degenerative disc disease at L2-L3 and L3-L4 Sclerosis of the SI joints
== END ==
PROVIDERS: PCP Internal Medicine Adolescent Medicine; Visit Provider Orthopaedic Surgery
DX: M25.552 Pain in left hip (principal); M54.5 Low back pain
CPT/HCPCS: 72110; 73502

== ENCOUNTER → 2018-12-09 14:41 | Outpatient (CLI) | payer MEDICARE, SELFPAY ==
--- NOTE | 2018-12-09 14:45 | NVE_ITS ---
Venous Exam Indications: 729.5 Pain in limb. IMPRESSIONS 1. There is no evidence of significant Reflux. 2. No evidence of deep or superficial vein thrombosis involving the left lower extremity Left lower extremity venous duplex evaluation. Doppler flow study including spectral analysis, color and aguilar scale imaging. Location: Vascular laboratory. Patient status: Outpatient. Tables: Venous flow and imaging: + +-------+ + Location Overall Flow properties + +-------+ + Left common femoral Patent Normal phasicity; spontaneous; normal augmentation; compressible + +-------+ + Left saphenofemoral junction Patent Compressible + +-------+ + Left profunda femoral Patent Compressible + +-------+ + Left femoral Patent Normal phasicity; spontaneous; normal augmentation; compressible + +-------+ + Left greater saphenous Patent Normal phasicity; spontaneous; normal augmentation; compressible + +-------+ + Left popliteal Patent Normal phasicity; spontaneous; normal augmentation; compressible + +-------+ + Left posterior tibial Patent Compressible + +-------+ + Left peroneal Patent Compressible + +-------+ + Left gastrocnemius Patent Compressible + +-------+ + Left soleal Patent Compressible + +-------+ + (Report amended ) Electronically signed by: Keshawn Smith [id number]
== END ==
PROVIDERS: PCP Internal Medicine Adolescent Medicine; Visit Provider Internal Medicine Adolescent Medicine
DX: M79.662 Pain in left lower leg (principal)
CPT/HCPCS: 93971

== ENCOUNTER → 2019-01-07 14:28 | Outpatient (CLI) | payer MEDICARE, SELFPAY ==
--- NOTE | 2019-01-07 14:56 | US_ITS ---
US Arterial Ankle Brachial Ind History: Rest pain, claudication ORDERING PHYSICIAN: Adrián Swenson MD PATIENT AGE: 73 years TECHNIQUE: Segmental pressures obtained of both right and left leg. These are compared to brachial blood pressure to yield index at each level sampled including summary JON. The data sheets from the procedure are available in PACS FINDINGS Rest study only performed today No prior studies available for comparison. Blood pressures reported are in millimeters mercury. RIGHT LEG JON = 1.1. RIGHT LEG TBI=.6 Brachial BP: 120 Thigh BP: 134 Calf BP: 144 Ankle PT: 130 Ankle DP : 127 Digit =77 LEFT LEG JON = 1.1 LEFT LEG TBI= .6 Brachial BPD: 121 Thigh BP: 148 Calf BP: 150 Ankle PT:138 Ankle DP: 144 Digit = 75 Pulses and waveforms: Normal IMPRESSION: The ABIs as reported above are within normal limits. Waveforms and pulses are also unremarkable. The toe brachial index is slightly low on both sides at 0.6 and may indicate small vessel disease.
== END ==
PROVIDERS: PCP Internal Medicine Adolescent Medicine; Visit Provider Internal Medicine Adolescent Medicine
DX: I73.9 Peripheral vascular disease, unspecified (principal)
CPT/HCPCS: 93922

== ENCOUNTER → 2019-01-31 16:45 | Outpatient (CLI) | payer MEDICARE, SELFPAY ==
[2019-01-31 17:45] LABS: Basophils # 0.1 K/mm3 (0-0.2); Basophils % 0.5 % (0.1-2.0); Eosinophils # 0.2 K/mm3 (0.0-0.4); Eosinophils % 1.6 % (0.1-12.0); Hematocrit 45.7 % (37.0-47.0); Hemoglobin 14.4 g/dL (12.2-16.2); Lymphocytes # 1.7 K/mm3 (0.7-4.5); Lymphocytes % 17.9 % (10-50); Mean Corpuscular HGB Conc 31.4 g/dL (31.8-35.4); Mean Corpuscular Hemoglobin 32.4 pg (27.0-31.2); Mean Corpuscular Volume 103.1 fl (81-99); Mean Platelet Volume 8.8 fl (7.4-10.4); Monocytes # 0.5 K/mm3 (0.1-1.0); Monocytes % 5.7 % (1.7-9.3); Neutrophils % 74.2 % (37.0-80.0); Platelet Count 253 K/mm3 (142-424); Red Blood Count 4.43 M/mm3 (4.20-5.40); Red Cell Distribution Width 13.3 % (11.5-17.5); White Blood Count 9.4 K/mm3 (4.8-10.8)
[2019-01-31 17:45] LABS: Microscopic, Urine URINE MICROSCOPIC (MICROSCOPIC)
[2019-01-31 18:40] LABS: Alanine Aminotransferase 30 U/L (12-78); Albumin Level 3.6 gm/dL (3.4-5.0); Albumin/Globulin Ratio 1.1 (1.1-1.8); Alkaline Phosphatase 81 U/L (46-116); Anion Gap 13.3 mEq/L (5-15); Aspartate Amino Transferase 21 U/L (15-37); Bilirubin,Total 0.3 mg/dL (0.2-1.0); Blood Urea Nitrogen 20 mg/dL (7-18); Calcium 9.2 mg/dL (8.5-10.1); Carbon Dioxide 28 mmol/L (21.0-32.0); Chloride 104 mmol/L (98-107); Creatinine,Serum 1.02 mg/dL (0.55-1.02); Estimated Glomerular Filt Rate 53 ml/min (>60); GFR (African American) 64 ML/MIN (>60); Globulin 3.4 gm/dl (1.3-3.2); Glucose 87 mg/dL (74-106); Magnesium 2.2 mg/dL (1.4-2.2); Potassium 4.3 mmoL/L (3.5-5.1); Sodium 141 mmol/L (136-145)
[2019-01-31 18:41] LABS: Appearance,Urine CLEAR (Clear); Bilirubin,Urine Negative (Negative); Blood, Urine Negative (Negative); Color,Urine YELLOW (Yellow); Glucose,Urine (UA) Negative (Negative); Ketones,Urine Negative (Negative); Leukocyte Esterase,Urine Negative (Negative); Nitrate,Urine Negative (Negative); Protein,Urine Negative (Negative); Specific Gravity, Urine 1.025 (1.005-1.030); Urobilinogen,Urine 0.2 EU/dl (0.2)
[2019-01-31 18:50] LABS: Bacteria,Urine Trace /lpf
[2019-02-03 03:28] LABS: Vitamin B12 766 pg/mL (232-1245)
[2019-02-03 18:17] LABS: Calcium, Ionized 5.3 mg/dL (4.5-5.6)
== END ==
PROVIDERS: Visit Provider Internal Medicine Adolescent Medicine
DX: R53.1 Weakness (principal); R10.2 Pelvic and perineal pain
CPT/HCPCS: 36415; 80053; 81001; 82330; 82607; 83735; 85025; 87086

== ENCOUNTER → 2019-03-06 06:05 | Outpatient (CLI) | payer MEDICARE, SELFPAY ==
--- NOTE | 2019-03-06 06:34 | NM_ITS ---
History:cad..hypertension..fatigue..pre-op Procedure: Patient received a 0.4 mg of intravenous Lexiscan, resting heart rate 103 bpm, resting blood pressure 171/90, with Lexiscan maximum heart rate achieve was 95 bpm which is less than 85 % of the maximum predicted heart rate and blood pressure was 169/79. WIth Lexiscan patient denied any complaint of chest pain. Electrocardiogram: Resting electrocardiogram showed sinus rhythm, with Lexiscan there is less than 1.5mm ST segment depression noted from the baseline EKG. The EKG portion of the Lexiscan Myoview is nondiagnostic. Cardias Stress and Resting SPECT images: Cardias Stress and Resting SPECT images were obtained using technetium 99m Myoview 32.0 mCi stress and 10.07 mCi at rest. Gated SPECT further analysis of segmental wall motion and calculation of ejection fraction also done. Cardiac stress and resting SPECT show uniform myocardial activity without segmental perfusion abnormality, computer derived ejection fraction is, the computer derived ejection fraction is over 65% with no regional wall motion abnormality, right ventricle is normal size and contractility. Conclusion: 1. The EKG portion of the Lexiscan Myoview is nondiagnostic. 2. No scintigraphic evidence of reversible ischemia seen, computer derived ejection fraction is over 65% with no regional wall motion abnormality, right ventricle is normal size and contractility. 3. Normal Lexiscan Myoview study.
--- NOTE | 2019-03-06 07:58 | CA_ITS ---
PROCEDURE: 2-D M-mode and color Doppler study INDICATIONS FOR THE TEST: Chest pain COPD Heart Murmur Tobacco Smoking Palpitations Fatigue Syncope Edema HypertensionXDiabetes Mellitus Rheumatic Fever SOB BROWNE Obesity HyperlipidemiaX Family History HD Additional History CAD,PRE-OP HIP REPLACEMENT PATIENT INFORMATION HEIGHT: 61 WEIGHT:182 GENDER: Female B/P:126/53 2-D/M-MODE INTERPRETATION: 2-D MEASUREMENTS OBSERVED VALUES IN CMS Right Ventricular Dimension (RVDd) 2.7 Interventricular Septum (Thickness)(IVsd) 1.1 Left Ventricular Internal Dimensions(LVIDd) 4.1 Left Ventricular Posterior Wall (Thickness)(LVPWd) .8 Aortic Root 3.6 Aortic Cusp Separation 1.4 Left Atrial Dimensions (LAD) 3.0 2D 1. Left atrium is mildly enlarged, left ventricle is normal size, there is mild concentric left ventricular hypertrophy, visually estimated ejection fraction 55% with no regional wall motion abnormality. 2. The right atrium and the ventricular normal size and contractility. 3. The aortic valve is minimally thickened and fibrosed. 4. The mitral and tricuspid valve leaflets are minimally thickened. 5. The pulmonic valve is poorly visualized. 6. No significant pericardial effusion noted. DOPPLER INTERROGATION: Doppler interrogation of the aortic, mitral and tricuspid valvular presence of mild aortic, mild mitral and tricuspid regurgitation, tricuspid regurgitation jet velocity is inadequate for calculation of the right ventricular systolic pressure, grade 1 diastolic dysfunction seen without tissue Doppler evidence of raised left atrial pressure. CONCLUSION: 1. Mildly enlarged left atrium, normal left ventricular size, mild concentric left ventricular hypertrophy, visually estimated ejection fraction 55% with no regional wall motion abnormality, grade 1 diastolic dysfunction seen without tissue Doppler evidence of raised left atrial pressure. 2. Mild aortic, mild mitral and tricuspid regurgitation. 3. No significant pericardial effusion noted.
--- NOTE | 2019-03-06 09:36 | HMH.ITSHM ---
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 [] tramadol omeprazole metoprollol lisinopril estradiol atorvastatin asa linzess clonazepam
== END ==
PROVIDERS: PCP Internal Medicine Adolescent Medicine; Visit Provider Internal Medicine
DX: F41.9 Anxiety disorder, unspecified (principal); I10 Essential (primary) hypertension; I25.10 Atherosclerotic heart disease of native coronary artery without angina pectoris; R42 Dizziness and giddiness; Z01.818 Encounter for other preprocedural examination
CPT/HCPCS: 78452; 93017; 93306; A9502; J2785

== ENCOUNTER → 2019-04-28 14:28 | Outpatient (CLI) | payer MEDICARE, SELFPAY ==
[2019-04-28 14:30] LABS: Microscopic, Urine URINE MICROSCOPIC (MICROSCOPIC)
[2019-04-28 15:23] LABS: Appearance,Urine CLEAR (Clear); Bilirubin,Urine Negative (Negative); Blood, Urine Negative (Negative); Color,Urine YELLOW (Yellow); Glucose,Urine (UA) Negative (Negative); Ketones,Urine Negative (Negative); Leukocyte Esterase,Urine TRACE (Negative); Nitrate,Urine Negative (Negative); Protein,Urine Negative (Negative); Specific Gravity, Urine >= 1.030 (1.005-1.030); Urobilinogen,Urine 0.2 EU/dl (0.2)
[2019-04-28 15:48] LABS: Amorphous Sediment,Urine Trace /lpf; WBC,Urine Occasional #/hpf (0-3)
[2019-04-28 15:49] LABS: Bacteria,Urine Trace /lpf; Calcium Oxalate Crystals,Urine 4+ /lpf; Squamous Epithelial Cell,Urine Occasional #/hpf (0-5)
== END ==
PROVIDERS: Visit Provider Nurse Practitioner Family
DX: R30.0 Dysuria (principal)
CPT/HCPCS: 81001; 87086

== ENCOUNTER → 2019-09-29 15:07 | Outpatient (CLI) | payer MEDICARE, SELFPAY ==
--- NOTE | 2019-09-29 | XR_ITS ---
PROCEDURE: XR CHEST 2V CLINICAL HISTORY: COUGH Cough, wheezing since August COMPARISON: [facility] CT CHEST W/O CONTRAST from 02/19/2017 CXR2V XR chest 2V from 03/15/2018 CXR2V XR chest 2V from 04/25/2018 CXR2V XR chest 2V from 11/01/2018 FINDINGS: The cardiomediastinal silhouette and pulmonary vascularity are within normal limits. There are chronic changes in the lower lobes with some increased density in the right lung base which may be related to superimposed infiltrate. No acute bony abnormalities. IMPRESSION: Chronic changes with possible superimposed right lower lobe infiltrate Dictated by: Keshawn Smith MD 09/29/2019 15:32 Electronically signed by Keshawn Smith MD in [place] 09/29/2019 15:32
[2019-09-29 15:46] LABS: Basophils # 0.1 K/mm3 (0-0.2); Basophils % 0.9 % (0.1-2.0); Eosinophils # 0.4 K/mm3 (0.0-0.4); Eosinophils % 4.7 % (0.1-12.0); Hematocrit 43.8 % (37.0-47.0); Hemoglobin 14.1 g/dL (12.2-16.2); Lymphocytes # 2.2 K/mm3 (0.7-4.5); Lymphocytes % 25.4 % (10-50); Mean Corpuscular HGB Conc 32.2 g/dL (31.8-35.4); Mean Corpuscular Hemoglobin 31.4 pg (27.0-31.2); Mean Corpuscular Volume 97.6 fl (81-99); Mean Platelet Volume 8.7 fl (7.4-10.4); Monocytes # 0.6 K/mm3 (0.1-1.0); Monocytes % 6.6 % (1.7-9.3); Neutrophils # 5.3 K/mm3 (1.8-7.8); Neutrophils % 62.5 % (37.0-80.0); Platelet Count 226 K/mm3 (142-424); Red Blood Count 4.49 M/mm3 (4.20-5.40); Red Cell Distribution Width 13.9 % (11.5-17.5); White Blood Count 8.5 K/mm3 (4.8-10.8)
[2019-09-29 16:56] LABS: Alanine Aminotransferase 21 U/L (12-78); Albumin Level 4.2 g/dl (3.5-5.0); Albumin/Globulin Ratio 1.2 (1.1-1.8); Alkaline Phosphatase 81 U/L (38-126); Anion Gap 12.6 mEq/L (5-15); Aspartate Amino Transferase 28 U/L (14-36); Bilirubin,Total 0.2 mg/dl (0.2-1.3); Blood Urea Nitrogen 14 mg/dl (7-17); Carbon Dioxide 29 mmol/L (22.0-30.0); Chloride 102 mmol/L (98-107); Estimated Glomerular Filt Rate 70 ml/min (>60); GFR (African American) 85 ML/MIN (>60); Globulin 3.4 g/dL (1.3-3.2); Glucose 82 mg/dl (74-100); Potassium 4.6 mmoL/L (3.5-5.1); Sodium 139 mmol/L (136-145); Total Protein,Serum 7.6 g/dl (6.3-8.2)
[2019-09-29 17:06] LABS: NT Pro Brain Natriuretic Pep. 64.3 pg/mL (0-125)
== END ==
PROVIDERS: PCP Internal Medicine Adolescent Medicine; Visit Provider Internal Medicine Adolescent Medicine
DX: I10 Essential (primary) hypertension (principal); R05 Cough; R06.2 Wheezing
CPT/HCPCS: 36415; 71046; 80053; 83880; 85025

== ENCOUNTER → 2019-11-14 12:37 | Outpatient (CLI) | payer MEDICARE, SELFPAY ==
--- NOTE | 2019-11-14 12:41 | CT_ITS ---
PROCEDURE: CT ABDOMEN PELVIS WO CON CLINICAL INDICATION: GROSS HEMATURIA, HX NEPHROLITHIASI,DYSURIA COMPARISON: ABDPELO CT abdomen pelvis wo con from 11/01/2018 TECHNIQUE: Axial images obtained with sagittal and coronal reformats. All CT scans at the facility use one or more dose reduction, viz: automated exposure control, ma/kV adjustment per patient size (including targeted exams where dose is matched to indication, i.e. head), or iterative reconstruction technique. FINDINGS: LOWER THORAX: Scattered small nodules are once again noted in the right lower lobe with the largest cluster in nodules in the right lower lobe at 1.7 cm not significantly changed. A 7 mm left lower lobe nodules present unchanged. Subpleural opacity is present in the left lower lobe posteriorly at 8 mm. This area was not imaged on the previous abdomen CT. Nonspecific mitral valve annular calcifications noted ABDOMEN & PELVIS: 7 mm hypodensity is present in the left hepatic lobe anteriorly unchanged. There is a small hiatal hernia. There are post cholecystectomy changes. The spleen, adrenal glands, and pancreas are unremarkable. There are left renal cysts and a small hyperdense nodule of the left kidney unchanged. Nonobstructing stone is present in the lower pole left kidney at 2 mm. There is a 2.5 cm cyst in the lower pole of the left kidney unchanged. No hydronephrosis. No ureteral calculi. Reported prior appendectomy. Diverticulosis involves the entire colon. No evidence of diverticulitis. There has been a prior hysterectomy. There is a small cystocele. Within this cyst a seal there is a 2 mm calcific density consistent with a small stone. Degenerative and postsurgical changes are noted in the lumbar spine. There is a left hip hemiarthroplasty and there are osteoarthritic changes of the right hip. IMPRESSION: 1. There is a small cystocele containing a 2 mm stone which may be due to recently passed ureteral stone. 2. No change in the left renal cyst including a 1 cm hyperdense lesion. A 2 mm stone is present in the lower pole of the left kidney 3. Pancolonic diverticulosis without diverticulitis 4. No change in the bibasilar pulmonary nodules Dictated by: Keshawn Smith MD 11/15/2019 08:10 Electronically signed by Keshawn Smith MD in [place] 11/15/2019 08:10
== END ==
PROVIDERS: PCP Internal Medicine Adolescent Medicine; Visit Provider Nurse Practitioner Family
DX: R31.0 Gross hematuria (principal); R30.0 Dysuria; Z87.442 Personal history of urinary calculi
CPT/HCPCS: 74176

== ENCOUNTER → 2020-01-21 18:01 | Outpatient (CLI) | payer MEDICARE, SELFPAY ==
[2020-01-21 18:26] LABS: Basophils # 0.1 K/mm3 (0-0.2); Basophils % 0.6 % (0.1-2.0); Eosinophils # 0.5 K/mm3 (0.0-0.4); Eosinophils % 5.3 % (0.1-12.0); Lymphocytes # 2.6 K/mm3 (0.7-4.5); Mean Corpuscular HGB Conc 33.3 g/dL (31.8-35.4); Mean Platelet Volume 8.8 fl (7.4-10.4); Monocytes # 0.5 K/mm3 (0.1-1.0); Monocytes % 4.7 % (1.7-9.3); Neutrophils # 5.9 K/mm3 (1.8-7.8); Neutrophils % 62.4 % (37.0-80.0); Platelet Count 207 K/mm3 (142-424); Red Blood Count 4.24 M/mm3 (4.20-5.40); White Blood Count 9.5 K/mm3 (4.8-10.8)
[2020-01-21 19:59] LABS: Alanine Aminotransferase 16 U/L (12-78); Albumin Level 4.4 g/dl (3.5-5.0); Albumin/Globulin Ratio 1.5 (1.1-1.8); Alkaline Phosphatase 82 U/L (38-126); Anion Gap 13.1 mEq/L (5-15); Aspartate Amino Transferase 27 U/L (14-36); Bilirubin,Total 0.3 mg/dl (0.2-1.3); Blood Urea Nitrogen 18 mg/dl (7-17); Calcium 10.3 mg/dl (8.4-10.2); Carbon Dioxide 31 mmol/L (22.0-30.0); Chloride 101 mmol/L (98-107); Estimated Glomerular Filt Rate 61 ml/min (>60); GFR (African American) 74 ML/MIN (>60); Glucose 106 mg/dl (74-100); Magnesium 2.1 mg/dl (1.6-2.3); Potassium 4.1 mmoL/L (3.5-5.1); Sodium 141 mmol/L (136-145); Total Protein,Serum 7.4 g/dl (6.3-8.2)
[2020-01-21 20:16] LABS: 25-OH Vitamin D, Total 71.6 ng/mL (30-100)
[2020-01-21 20:30] LABS: Thyroid Stimulating Hormone 2.26 uIU/mL (0.465-4.68)
[2020-01-23 09:26] LABS: Vitamin B12 452 pg/mL (232-1245)
== END ==
PROVIDERS: Visit Provider Nurse Practitioner Family
DX: R53.81 Other malaise (principal); M62.81 Muscle weakness (generalized); E53.8 Deficiency of other specified B group vitamins; E55.9 Vitamin D deficiency, unspecified
CPT/HCPCS: 36415; 80053; 82306; 82607; 83735; 84443; 85025

== ENCOUNTER 2020-01-30 16:00 | Outpatient (RCR) | payer MEDICARE, SELFPAY | END 2020-01-30 16:05 | disposition home or self-care (01) | LOC: PT 16:00 | PROVIDERS: PCP Internal Medicine Adolescent Medicine; Visit Provider Nurse Practitioner Family | DX: I89.0 Lymphedema, not elsewhere classified (principal) | CPT/HCPCS: 97110; 97140; 97161 ==

== ENCOUNTER → 2020-03-03 13:31 | Outpatient (CLI) | payer MEDICARE, SELFPAY ==
[2020-03-03 15:59] VITALS: PULSE 64; PULSE 66
== END ==
PROVIDERS: PCP Internal Medicine Adolescent Medicine; Visit Provider Nurse Practitioner Family
DX: R06.02 Shortness of breath (principal)
CPT/HCPCS: 94060; 94640; 94727; 94729

== ENCOUNTER → 2020-03-18 15:00 | Outpatient (CLI) | payer MEDICARE, SELFPAY ==
[2020-03-18 15:52] LABS: Creatine Kinase 67 U/L (30-135)
[2020-03-20 13:06] LABS: Homocyst(e)ine 8.4 umol/L (0.0-19.2)
[2020-03-23 02:54] LABS: Aldolase 6.4 U/L (3.3-10.3)
[2020-03-24 08:26] LABS: Methylmalonic Acid 296 nmol/L (0-378)
== END ==
PROVIDERS: Visit Provider Specialist
DX: M62.81 Muscle weakness (generalized) (principal); Z86.39 Personal history of other endocrine, nutritional and metabolic disease; I25.10 Atherosclerotic heart disease of native coronary artery without angina pectoris
CPT/HCPCS: 36415; 82085; 82131; 82550; 83090

== ENCOUNTER → 2020-04-28 16:11 | Outpatient (CLI) | payer MEDICARE, SELFPAY ==
[2020-04-28 18:33] LABS: Coronavirus 19 IgG Antibody Negative (Negative); Coronavirus 19 IgM Antibody Negative (Negative)
== END ==
PROVIDERS: Visit Provider Specialist
DX: Z01.89 Encounter for other specified special examinations (principal)
CPT/HCPCS: 36415; 86328

== ENCOUNTER → 2020-04-29 19:33 | Outpatient (CLI) | payer MEDICARE, SELFPAY | PROVIDERS: PCP Internal Medicine Adolescent Medicine; Visit Provider Specialist | DX: G47.33 Obstructive sleep apnea (adult) (pediatric) (principal); G47.36 Sleep related hypoventilation in conditions classified elsewhere; I10 Essential (primary) hypertension | CPT/HCPCS: 95810 ==

== ENCOUNTER → 2020-05-10 15:06 | Outpatient (CLI) | payer MEDICARE, SELFPAY ==
--- NOTE | 2020-05-10 | CA_ITS ---
APPROVED REPORT [employer] Rubbish Collector: Pati Walden RVT Laterality: Bilateral Study Quality: Good Indications: Dizziness and Vertigo Risk Factors Hypertension: Smoking Doppler Spectral Velocity Analysis ECA (R) 72.80/1.70 cm/s ECA (L) 108.80/7.70 cm/s dICA (R) 133.70/43.70 cm/s dICA (L) 121.70/38.60 cm/s Kiki (R) 128.50/34.30 cm/s Kiki (L) 103.70/35.10 cm/s pICA (R) 68.80/16.50 cm/s pICA (L) 86.50/24.80 cm/s dCCA (R) 89.10/19.70 cm/s dCCA (L) 68.50/13.70 cm/s pCCA (R) 103.70/15.40 cm/s pCCA (L) 92.50/20.60 cm/s Vert (R) 54.80/14.60 cm/s Vert (L) 70.30/15.40 cm/s ICA/CCA 1.50 ICA/CCA 1.77 Findings Study suggests less than 20% stenosis of the right internal cartoid artery. Study suggests less than 20% stenosis of the left intrnal cartoid artery. Antegrade flow seen bilateral vertebral arteries. Conclusion Study suggests less than 20% stenosis of the right internal cartoid artery. Study suggests less than 20% stenosis of the left intrnal cartoid artery. Antegrade flow seen bilateral vertebral arteries. Electronically signed by : Keshawn Smith MD 05/10/2020 17:12:54
== END ==
PROVIDERS: PCP Internal Medicine Adolescent Medicine; Visit Provider Specialist
DX: R42 Dizziness and giddiness (principal)
CPT/HCPCS: 93880

== ENCOUNTER → 2020-05-27 12:29 | Outpatient (CLI) | payer MEDICARE, SELFPAY ==
--- NOTE | 2020-05-27 13:30 | CT_ITS ---
PROCEDURE: CT CHEST WO CON CLINICAL INDICATION: Lung nodules followup COMPARISON: CT [facility] CT CHEST W/O CONTRAST from 02/19/[address] ABDOMEN PELVIS WO CON from 11/14/2019 TECHNIQUE: Axial images obtained with sagittal and coronal reformats. All CT scans at the facility use one or more dose reduction, viz: automated exposure control, ma/kV adjustment per patient size (including targeted exams where dose is matched to indication, i.e. head), or iterative reconstruction technique. FINDINGS: No mediastinal or hilar mass. Coronary artery calcifications and/or stents noted. There is a small hiatal hernia. Nodularity is present in the right apex and is unchanged consistent with an area of scarring. In the right upper lobe on image 24 series 3 there is a 9 mm nodule which is not significantly changed. There are however some new satellite nodules peripheral to this area which have developed since the previous exam measuring up to 6 mm.. There is a subpleural nodule in the right upper lobe lobe anteriorly at 5 mm unchanged. Partially calcified nodules present in the right middle lobe unchanged. There is nodularity also present in the right lower lobe laterally which has developed since the previous exam. There are at least 3 nodules here measuring up to 10 mm. This area of nodularity appears more prominent compared to the previous abdomen CT 11/14/2019. In addition, there is nodularity in the right major fissure anteriorly not significantly changed from a prior abdomen CT measuring 11 mm total. There is a 6 mm noncalcified nodule in the right lower lobe image 38 not significantly changed. There is a stable 6 mm nodule in the left upper lobe. Calcified granulomas are present in the left lower lobe. There is a stable 6 mm nodule in the left lower lobe posteriorly. Eight 8 mm subpleural nodules present in the left lower lobe unchanged. There are degenerative changes in the thoracic spine with mild kyphosis IMPRESSION: 1. There are multiple bilateral pulmonary nodules many of which are stable. Compared to 02/19/2017 there are new nodules in the right upper lobe and compared to 11/14/2019 CT abdomen nodularity in the right lower lobe has become somewhat more prominent. These findings could be related to neoplasm or an infectious/inflammatory process. PET CT may provide further evaluation. 2. Other nonacute findings as described above. Dictated by: Keshawn Smith MD 05/29/2020 11:20 Keshawn Smith MD in [place] 05/29/2020 11:20
== END ==
PROVIDERS: PCP Internal Medicine Adolescent Medicine; Visit Provider Internal Medicine Pulmonary Disease
DX: R91.8 Other nonspecific abnormal finding of lung field
CPT/HCPCS: 71250; 94010

== ENCOUNTER → 2020-09-10 14:57 | Outpatient (CLI) | payer MEDICARE, SELFPAY ==
--- NOTE | 2020-09-10 14:58 | CT_ITS ---
PROCEDURE: CT CHEST WO CON CLINICAL INDICATION: Lung nodule follow up. Prior 05/27/20 COMPARISON: CT CT CHEST WO CON from 05/27/2020 TECHNIQUE: Axial images obtained with sagittal and coronal reformats. All CT scans at the facility use one or more dose reduction, viz: automated exposure control, ma/kV adjustment per patient size (including targeted exams where dose is matched to indication, i.e. head), or iterative reconstruction technique. FINDINGS: Scattered small nodes are present in the mediastinum. There are coronary artery calcifications and/or stents noted. No mediastinal or hilar mass or adenopathy. There is a small hiatal hernia. The nodular opacities in the right upper lobe appear stable having a somewhat tree in bud appearance. The largest nodule in this conglomerate measures approximately 9 mm. The group of nodular opacities in the right lower lobe laterally appear stable the largest at 10 mm. 6 mm nodule central aspect of the left upper lobe is unchanged. 8 mm nodule left lower lobe unchanged. Other smaller nodules are present and are unchanged. No new nodules identified. No effusions or infiltrates. Upper abdominal images show a hypodensity in the left hepatic lobe at 8 mm unchanged. There are degenerative changes in the thoracic spine IMPRESSION: Overall stable CT appearance of the chest. No change in the multiple bilateral pulmonary nodules since 05/27/2020. 6-12 month follow-up suggested to confirm stability. Dictated by: Keshawn Smith MD 09/12/2020 09:27 Keshawn Smith MD in [place] 09/12/2020 09:27
== END ==
PROVIDERS: PCP Internal Medicine Adolescent Medicine; Visit Provider Internal Medicine Pulmonary Disease
DX: R91.1 Solitary pulmonary nodule (principal); R91.8 Other nonspecific abnormal finding of lung field
CPT/HCPCS: 71250

== ENCOUNTER → 2020-11-04 15:11 | Outpatient (CLI) | payer MEDICARE, SELFPAY ==
[2020-11-04 16:30] LABS: Potassium 4.4 mmoL/L (3.5-5.1)
[2020-11-10 18:06] LABS: D001-IgE D pteronyssinus 0.12 kU/L (Class 0/I); D002-IgE D farinae <0.10 kU/L (Class 0); E005-IgE Dog Dander 0.47 kU/L (Class I); G002-IgE Bermuda Grass <0.10 kU/L (Class 0); G006-IgE Timothy Grass <0.10 kU/L (Class 0); I006-IgE Cockroach, German 0.18 kU/L (Class 0/I); Immunoglobulin E, Total 690 IU/mL (6-495); M001-IgE Penicillium chrysogen <0.10 kU/L (Class 0); M002-IgE Cladosporium herbarum <0.10 kU/L (Class 0); M003-IgE Aspergillus fumigatus <0.10 kU/L (Class 0); M006-IgE Alternaria alternata <0.10 kU/L (Class 0); T001-IgE Maple/Box Elder <0.10 kU/L (Class 0); T003-IgE Common Silver Birch <0.10 kU/L (Class 0); T006-IgE Cedar, Mountain <0.10 kU/L (Class 0); T007-IgE Oak, White <0.10 kU/L (Class 0); T008-IgE Elm, American <0.10 kU/L (Class 0); T010-IgE Walnut <0.10 kU/L (Class 0); T011-IgE Maple Leaf Sycamore <0.10 kU/L (Class 0); T014-IgE Cottonwood <0.10 kU/L (Class 0); T015-IgE Ash, White <0.10 kU/L (Class 0); T022-IgE Pecan, Hickory <0.10 kU/L (Class 0); T070-IgE White Mulberry <0.10 kU/L (Class 0); W001-IgE Ragweed, Short 0.67 kU/L (Class II); W011-IgE Thistle, Russian <0.10 kU/L (Class 0); W014-IgE Pigweed, Common <0.10 kU/L (Class 0); W018-IgE Sheep Sorrel <0.10 kU/L (Class 0)
[2020-11-10 21:02] LABS: E072-IgE Mouse Urine 0.14 kU/L (Class 0/I)
== END ==
PROVIDERS: Visit Provider Internal Medicine Pulmonary Disease
DX: J45.909 Unspecified asthma, uncomplicated
CPT/HCPCS: 82785; 84132; 86003

== ENCOUNTER → 2020-12-21 15:21 | Outpatient (CLI) | payer MEDICARE, SELFPAY ==
[2020-12-21 15:25] LABS: Microscopic, Urine URINE MICROSCOPIC (MICROSCOPIC)
[2020-12-21 16:02] LABS: Appearance,Urine CLEAR (Clear); Bilirubin,Urine Negative (Negative); Blood, Urine TRACE-I (Negative); Color,Urine YELLOW (Yellow); Glucose,Urine (UA) Negative (Negative); Ketones,Urine Negative (Negative); Leukocyte Esterase,Urine TRACE (Negative); Nitrate,Urine Negative (Negative); PH,Urine 5.5 (5.0-8.5); Protein,Urine Negative (Negative); Specific Gravity, Urine >= 1.030 (1.005-1.030); Urobilinogen,Urine 0.2 EU/dl (0.2)
[2020-12-21 16:35] LABS: Bacteria,Urine 2+ /lpf
== END ==
PROVIDERS: Visit Provider Internal Medicine Adolescent Medicine
DX: R30.0 Dysuria (principal)
CPT/HCPCS: 81001; 87086

== ENCOUNTER → 2021-01-24 09:34 | Outpatient (CLI) | payer MEDICARE, SELFPAY ==
--- NOTE | 2021-01-24 09:35 | CT_ITS ---
PROCEDURE: CT ABDOMEN PELVIS WO CON CLINICAL INDICATION: kidney stone Hematuria COMPARISON: CT CT ABDOMEN PELVIS WO CON from 11/14/[address] CHEST WO CON from 09/10/2020 TECHNIQUE: Axial images obtained with sagittal and coronal reformats. All CT scans at the facility use one or more dose reduction, viz: automated exposure control, ma/kV adjustment per patient size (including targeted exams where dose is matched to indication, i.e. head), or iterative reconstruction technique. FINDINGS: LOWER THORAX: There are numerous noncalcified nodular opacities in lung bases on both sides. Largest is in the right lung base posteriorly macrolobular which does not appear to be significantly changed from 09/10/2020. ABDOMEN & PELVIS: Hypodensity noted in the left hepatic lobe segment 4 a and may be due to small cyst unchanged. There has been a prior cholecystectomy. The biliary tree is dilated with the hepatic duct at 1.5 cm. The spleen, adrenal glands, and pancreas has an unremarkable appearance. There are left parapelvic renal cyst as well as a renal cortical cyst along the lower pole on the left measuring 4 cm. A nonobstructing stone measuring 3 mm is present in the lower pole on the left. Hyperdense nodules present in the left kidney posteriorly at 8 mm unchanged. There does appear to be a small cystocele. Small calcific densities are present along the posterior aspect of the cystocele suggesting small stones. There appears to be several small stones in this area the largest measuring 3-4 mm. The number of stones has increased in this region compared to the previous exam. No intestinal obstruction or free air. The there is diffuse colonic diverticulosis. No evidence of diverticulitis or appendicitis. Artifact is present from left hip prosthesis. There has been a prior hysterectomy.. IMPRESSION: 1. Left nephrolithiasis. No ureteral calculi parent. There is a small cystocele containing several small calcific densities suggesting small stones within the cyst is seal which have increased in number compared to the previous exam. At least 3 or 4 stones are present the largest at 3 mm. 2. Diffuse colonic diverticulosis without diverticulitis 3. Multiple small bilateral pulmonary nodules in the lung bases not significantly changed Dictated by: Keshawn Smith MD 01/24/2021 11:23 Keshawn Smith MD in [place] 01/24/2021 11:23
== END ==
PROVIDERS: PCP Internal Medicine Adolescent Medicine; Visit Provider Urology
DX: N20.0 Calculus of kidney (principal)
CPT/HCPCS: 74176

== ENCOUNTER → 2021-04-05 13:41 | Outpatient (CLI) | payer MEDICARE, SELFPAY ==
--- NOTE | 2021-04-05 13:41 | CT_ITS ---
PROCEDURE: CT CHEST WO CON CLINICAL INDICATION: 6-month follow-up CT Follow-up pulmonary nodules COMPARISON: CT [facility]WO CT CHEST W/O CONTRAST from 02/19/[address] CHEST WO CON from 09/10/2020 TECHNIQUE: Axial images obtained with sagittal and coronal reformats. All CT scans at the facility use one or more dose reduction, viz: automated exposure control, ma/kV adjustment per patient size (including targeted exams where dose is matched to indication, i.e. head), or iterative reconstruction technique. FINDINGS: HEART AND MEDIASTINAL STRUCTURES: Coronary artery calcification is evident. No mediastinal or hilar mass or adenopathy. LUNGS AND PLEURAL SPACES: There are stable multiple noncalcified bilateral pulmonary nodules as previously described including the stable conglomerate of nodules in the right lower lobe and the tree in bud pattern nodules in the right upper lobe. No new nodules are identified. No effusions or infiltrates. There are scattered calcified nodules as well. BONY STRUCTURES: Degenerative change with kyphosis of the thoracic spine UPPER ABDOMEN: 9 mm hypodensity is present in the left hepatic lobe anteriorly which is stable. Prominent biliary tree and common bile duct noted unchanged ADDITIONAL FINDINGS: No other significant abnormalities. IMPRESSION: Overall stable CT appearance of the chest. Stable multiple noncalcified pulmonary nodules as described above. Dictated by: Keshawn Smith MD 04/06/2021 13:32 Keshawn Smith MD in [place] 04/06/2021 13:32
== END ==
PROVIDERS: PCP Internal Medicine Adolescent Medicine; Visit Provider Internal Medicine Pulmonary Disease
DX: R91.8 Other nonspecific abnormal finding of lung field (principal)
CPT/HCPCS: 71250

== ENCOUNTER 2021-06-27 10:39 | Emergency (ER) | payer MEDICARE, SELFPAY ==
[2021-06-27 10:40] VITALS: BP 142/57; PULSE 67; RESP 18; TEMP 36.8; O2SAT 95; BMI 35.6
--- NOTE | 2021-06-27 11:52 | CT_ITS ---
PROCEDURE: CT HEAD/BRAIN WO CON CLINICAL INDICATION: headache, tinnitus, dizziness COMPARISON: No exams were available for comparison TECHNIQUE: Axial images obtained. All CT scans at the facility use one or more dose reduction, viz: automated exposure control, ma/kV adjustment per patient size (including targeted exams where dose is matched to indication, i.e. head), or iterative reconstruction technique. FINDINGS: No midline shift, mass effect, intracranial hemorrhage, hydrocephalus, or extra-axial fluid collection is evident. There is generalized atrophy with hypoattenuation of the periventricular white matter consistent with microangiopathic changes. The calvarium has an unremarkable appearance. No mastoid effusion. No sinus air-fluid level. IMPRESSION: No acute intracranial finding Dictated by: Keshawn Smith MD 06/27/2021 13:57 Keshawn Smith MD in [place] 06/27/2021 13:57
--- NOTE | 2021-06-27 12:01 | HMH.EDGENADL ---
ED Disposition Clinical Impression: Tinnitus, Meniere disease Disposition: Home, Self-Care Condition on Discharge: Fair Prescriptions: Furosemide [Furosemide 20mg Tab*] 20 mg PO DAILY #30 tab Transmission Status: Pending to [id number] Referrals: Kathleen Sanderson APRN [Primary Care Provider] - - Critical Care Critical Care Time: No Attestation: On 06/27/21, the high probability of a clinically significant, sudden or life threatening deterioration of the following system(s) required my full and direct attention, intervention and personal management. The time I documented below is in addition to time spent performing reported procedures but includes the following listed in this critical care notation. Medical Decision Making - Agustin Inquiry Pt receiving controlled substance: No Vital Signs: 06/27/21 10:40 06/27/21 12:17 Temperature 98.2 F Temperature Source Oral Pulse Rate 71 Pulse Rate [Right Radial] 67 Respiratory Rate 18 18 Blood Pressure 138/56 L Blood Pressure [Right Arm] 142/57 H Blood Pressure Mean [Right Arm] 85 Blood Pressure Source [Right Arm] Automatic Cuff Blood Pressure Position [Right Arm] Sitting 02 Sat by Pulse Oximetry 95 95 Oxygen Delivery Method Room Air Room Air - Lab Data Lab Results 06/27/21 12:11: WBC 8.4, RBC 4.42, Hgb 14.5, Hct 43.4, MCV 98.3, MCH 32.8 H, MCHC 33.4, RDW 13.6, Plt Count 217, MPV 8.7, Neut % (Auto) 68.8, Lymph % (Auto) 19.5, [place] % (Auto) 6.0, Eos % (Auto) 5.0, Baso % (Auto) 0.7, Neut # (Auto) 5.8, Lymph # (Auto) 1.6, [place] # (Auto) 0.5, Eos # (Auto) 0.4, Baso # (Auto) 0.1 06/27/21 12:11: Sodium 141, Potassium 4.1, Chloride 102, Carbon Dioxide 32 H, Anion Gap 11.1, BUN 16, Creatinine 0.80, Estimated Creat Clear 66, Estimated GFR 70, Est GFR ( Amer) 85, Glucose 110 H, Calcium 9.5, Total Bilirubin 0.4, AST 33, ALT 18, Alkaline Phosphatase 100, Total Protein 7.2, Albumin 4.3, Globulin 2.9, Albumin/Globulin Ratio 1.5, TSH 2.31 Result diagrams: 06/27/21 12:11 06/27/21 12:11 Orders (Tests/Meds): ED MEDICATIONS Discontinued Medications Generic Name Dose Route Start Last Admin Trade Name Aniya PRN Reason Stop Dose Admin Meclizine HCl 25 mg 06/27/21 11:48 06/27/21 11:55 Meclizine 25mg Tablet PO 06/27/21 11:49 25 mg ONCE ONE Administration ORDERS Category Date Time Status Urinalysis-Acute [Urinalysis and Microscopic] Stat Lab 06/27/21 11:57 Ordered Medical Decision Narrative: 76 yo female with chronic tinnitus, imbalance, hearing loss presents for tinnitus. GCS 15, normal neuro exam, HINTS exam negative. Has been previously been evaluated by ENT for these symptoms with diagnosis of meniere's syndrome. Has had MRI of brain in 2019 which did not show specific findings for these symptoms. Lower acute suspicion for acute CVA given patient's history and exam and chronicity of symptoms. CTH here today in ED showed no acute findings. Patient remains HDS, GCS 15, well appearing on reassessment. Her symptomatology is consistent with meniere's disease. She is not currently on diuretics per her given med list, so will start on furosemide. Given her worsening tinnitus, will refer to ENT for follow up. General Adult HPI - General Stated complaint: tennitis Time Seen by Provider: 06/27/21 11:00 Source of Information: Patient Limitations: No Limitations - History of Present Illness HPI narrative: 76 yo female w/ hx COPD, CAD, HTN, HLD, asthma, chronic tinnitus and disequilibrium and hearing loss presents for evaluation for tinnitus. Patient reports 2-3 months of worsening tinnitus that is bilateral intermittent. Occasionally associated with frontal headache. States this morning tinnitus was worse than before. Has seen neurology and ENT in past and was diagnosed with Meniere's disease. Was put on clonidine in past for symptoms and this improved tinnitus but it stopped working, was recently changed to diazepam last week by PC
[2021-06-27 12:17] VITALS: BP 138/56; PULSE 71; RESP 18; O2SAT 95
--- NOTE | 2021-06-27 12:19 | PC.NURSE ---
Spoke with jami about CT.
[2021-06-27 12:34] LABS: Basophils # 0.1 K/mm3 (0-0.2); Basophils % 0.7 % (0.1-2.0); Eosinophils # 0.4 K/mm3 (0.0-0.4); Hematocrit 43.4 % (37.0-47.0); Hemoglobin 14.5 g/dL (12.2-16.2); Lymphocytes # 1.6 K/mm3 (0.7-4.5); Lymphocytes % 19.5 % (10-50); Mean Corpuscular HGB Conc 33.4 g/dL (31.8-35.4); Mean Corpuscular Hemoglobin 32.8 pg (27.0-31.2); Mean Corpuscular Volume 98.3 fl (81-99); Mean Platelet Volume 8.7 fl (7.4-10.4); Monocytes # 0.5 K/mm3 (0.1-1.0); Neutrophils # 5.8 K/mm3 (1.8-7.8); Neutrophils % 68.8 % (37.0-80.0); Platelet Count 217 K/mm3 (142-424); Red Blood Count 4.42 M/mm3 (4.20-5.40); Red Cell Distribution Width 13.6 % (11.5-17.5); White Blood Count 8.4 K/mm3 (4.8-10.8)
[2021-06-27 12:40] LABS: Chloride 102 mmol/L (98-107)
[2021-06-27 12:41] LABS: Potassium 4.1 mmoL/L (3.5-5.1); Sodium 141 mmol/L (136-145)
[2021-06-27 12:43] LABS: Alanine Aminotransferase 18 U/L (12-78); Alkaline Phosphatase 100 U/L (38-126); Aspartate Amino Transferase 33 U/L (14-36); Bilirubin,Total 0.4 mg/dl (0.2-1.3); Blood Urea Nitrogen 16 mg/dl (7-17); Creatinine Clearance Estimated 66 mL/min (50-200); Estimated Glomerular Filt Rate 70 ml/min (>60); GFR (African American) 85 ML/MIN (>60)
[2021-06-27 12:44] LABS: Albumin Level 4.3 g/dl (3.5-5.0); Albumin/Globulin Ratio 1.5 (1.1-1.8); Anion Gap 11.1 mEq/L (5-15); Calcium 9.5 mg/dl (8.4-10.2); Carbon Dioxide 32 mmol/L (22.0-30.0); Globulin 2.9 g/dL (1.3-3.2); Glucose 110 mg/dl (74-100); Total Protein,Serum 7.2 g/dl (6.3-8.2)
[2021-06-27 13:14] LABS: Thyroid Stimulating Hormone 2.31 uIU/mL (0.465-4.68)
--- NOTE | 2021-06-27 13:20 | PC.NURSE ---
Spoke with RAD they will be coming back to get pt shortly.
[2021-06-27 14:55] VITALS: BP 145/72; PULSE 72; RESP 18; TEMP 37.1; O2SAT 97
--- NOTE | 2021-06-27 18:47 | PC.NURSE ---
Called pt at [phone]. LM. She needs to call [phone] Cotto.
== END 2021-06-27 14:55 | disposition home or self-care (01) ==
PROVIDERS: Emergency Provider Student in an Organized Health Care Education/Training Program; PCP Nurse Practitioner Family
DX: H93.19 Tinnitus, unspecified ear (principal); H81.09 Meniere's disease, unspecified ear; I10 Essential (primary) hypertension; Z87.891 Personal history of nicotine dependence; J44.9 Chronic obstructive pulmonary disease, unspecified; I25.10 Atherosclerotic heart disease of native coronary artery without angina pectoris; Z79.899 Other long term (current) drug therapy
CPT/HCPCS: 36415; 70450; 80053; 84443; 85025; 99282

== ENCOUNTER → 2021-07-04 13:34 | Outpatient (POV) | payer MEDICARE, SELFPAY ==
[2021-07-04 14:02] VITALS: BP 156/62; PULSE 72; RESP 20; TEMP 36.4; O2SAT 97; BMI 34.9
--- NOTE | 2021-07-04 14:17 | HMH.PMCON ---
Assessment and Plan (1) Low back pain Status: Acute Category: Medical Code(s): M54.50 - Low back pain, unspecified (2) Lumbar radiculopathy Status: Acute Category: Medical Code(s): M54.16 - Radiculopathy, lumbar region - Assessment and plan all Dx Assessment and Plan for all problems:: Patient is currently taking tramadol 50 mg 4 times daily, Motrin 400 mg, and diazepam for pain management and anxiety. These medications are prescribed by Kathleen Sanderson APRN. Patient has tried and failed conservative therapies such as physical therapy, chiropractic adjustments and at home exercises in the past. We will schedule the patient for an open MRI due to her history of anxiety and claustrophobia. We would like to see the patient back after her MRI to discuss plan of care. Based on the patient's symptoms, we will most likely schedule the patient for a lumbar epidural steroid injection later on. Risks and benefits of the medication have been explained in detail to the patient. The patient does understand the risk of dependence on the medication when given over a prolonged period. Patient has been advised of risks of oversedation with the prescribed medication. Narcan has been offered to the paitent in the event of oversedation. Patient has been advised that a family member should also be educated regarding administration of Narcan. The patient has been advised to consult with his/her primary care provider and pharmacist regarding drug-drug interaction of medications currently prescribed. Patient has been prescribed a controlled substance after being counseled on the medication, medication safety, and possible side effects. [facility] report has been obtained and reviewed prior to prescription and found to be appropriate. Opioid contract was reviewed and signed by the patient, and that they have agreed to all of the terms set forth by our compliance program. Patient has been instructed to contact the clinic with any concerns before the next appointment. Dr. Xie has reviewed this note and agrees with this plan of care. This note was dictated using voice recognition software and make contain errors or omissions. HPI - Data of Consult Patient: new to practice Consult date: 07/04/21 Requesting Physician: Joselyn Nieves APRN - Consult Narrative Reason for consult: back pain History of present illness: Patient is a pleasant 76 year old female who is here today as a new patient. Patient has been referred by Kathleen Sanderson APRN, for chronic back pain that started in 2002 when she fell after a syncope episode. Patient had back surgery in 2002 due to the fall, but states that she is still having pain that starts in her lowback that radiates down to bilateral hips, legs, and feet. 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 Patient says that her pain is worse with prolonged activity, twisting to the right, and flexion and extension of her back. For pain management, patient states that she takes motrin 400 mg of motrin in the morning, two Tramadol 50mg after lunch, and sometimes two more Tramadol 50mg in the evening if she needs to. Patient says that the medication helps relief some discomfort, but she is still limited to her activities. Patient has also tried and failed physical therapy and chiropractic adjustments for this back in the past. She has gone to physical therapy for bilateral shoulder surgeries and hip replacement surgery. Patient currently moves around with a cane due to her pain. Patient denies any loss of bladder and bowel functions. She is also being followed by Dr. Whitaker with [facility], but has not gone to meet him. Patient is also currently on diazepam that is prescribed by Kathleen Sanderson APRN. CC: Joselyn Nieves APRN [facility] History I have reviewed the patient's past medical history: Yes Medical History: Reports:: Anxiety, Arrhythmia, Asthma, Chronic O
== END ==
PROVIDERS: Visit Provider Clinical Nurse Specialist Family Health
DX: M54.16 Radiculopathy, lumbar region (principal); M54.50 Low back pain, unspecified
CPT/HCPCS: 99202; G0463

== ENCOUNTER → 2021-11-03 14:05 | Outpatient (POV) | payer MEDICARE, SELFPAY ==
[2021-11-03 14:22] VITALS: BP 148/60; PULSE 72; RESP 18; TEMP 36.2; O2SAT 95; BMI 34.2
--- NOTE | 2021-11-03 15:53 | HMH.PAINSOAP ---
[facility] Pain Management SOAP Note Subjective:: Patient is a pleasant 76-year-old female who presents today for follow-up after her MRI on October 25, 2021. She is current being treated for chronic low back pain that radiates to bilateral lower extremities. She had a back surgery in 2002 when she fell. 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 Patient says that this is worse with lumbar flexion, extension, and especially with rotation. For pain, she is taking tramadol 50 mg 4 times a day, Motrin and diazepam. Today, patient continues to have low back pain. She denies any recent falls or traumas. She rates her pain today as 0 out of 10 when she is sitting but gets higher when she starts walking. Last time we talked to the patient, we order an MRI of her lumbar spine. This shows advanced articular facet disease with ligamentum flavum hypertrophy causing moderate canal stenosis and moderate to severe left foraminal stenosis in multiple levels. She also has multiple degenerative disc changes on her lumbar spine. Review of Systems: General: No recent weight changes, no fever, no sleep disturbances Respiratory: No cough, no shortness of air, no recurring pulmonary infections Cardiovascular/peripheral vascular: No chest pain, no palpitations, no edema, no shortness of breath Gastrointestinal: No new onset incontinence, normal bowel movements reported Genitourinary: No new onset incontinence Musculoskeletal: Low back pain Psychiatric: [Normal mood/affect] Neurological: [Denies weakness in extremities], [denies balance issues] Objective:: Physical Exam: General: Alert and oriented x3, no acute distress, pleasant and cooperative, [on room air] Lungs: Respirations even and unlabored, symmetrical chest expansion Eyes: PERRL Musculoskeletal: Flexion and extension of lumbar [spine] somewhat guarded secondary to pain, stringer test Neurological: Speech clear, no gross sensory deficit Assessment:: Degenerative disc disease of lumbar spine with lumbar radiculopathy symptoms Spinal stenosis with neurogenic claudication Lumbar facet arthropathy Lumbar spondylosis Plan:: MRI Lumbar 10/25/21 L1-L2: Moderate articular facet disease and ligamentum flavum hypertrophy L2-L3: Advanced articular facet disease and ligamentum flavum hypertrophy. There is moderate canal stenosis and moderate to severe left foraminal stenosis. Right foramen is mildly narrowed. L3-L4: Advanced articular facet disease. There is moderate to severe foraminal narrowing worse on the right. There is mild to moderate canal narrowing particularly in the medial lateral dimension. There are postsurgical changes noted. L4-L5: There are postsurgical changes. There is a concentric disc bulge and advanced articular facet disease. There is mild foraminal narrowing. Canal is patent L5-S1: There is concentric disc bulge with advanced articular facet disease. There is no significant canal or foraminal stenosis. Patient continues to have low back pain that radiates to bilateral lower extremities. This is worse with lumbar flexion, extension, and rotation. She denies any loss of bowel and bladder functions. MRI is posted above. Patient has tried and failed conservative therapy such as oral medication, physical therapy, chiropractic adjustments and at home exercises in the past. We will schedule this patient for a lumbar facet injection/medial branch block at L2-L3 and L3-L4. Risks and benefits of the procedure have been explained to the patient. Patient would like to proceed with the procedure. If patient gets minimal relief from this injection, we will consider doing a lumbar epidural steroid injection. At the moment, patient is complaining more that she has pain in rotating to the right. She does have positive Kemps test. Patient has been instructed to contact the clinic with any concerns before the nex
== END ==
PROVIDERS: Visit Provider Student in an Organized Health Care Education/Training Program
DX: M51.16 Intervertebral disc disorders with radiculopathy, lumbar region (principal); M48.062 Spinal stenosis, lumbar region with neurogenic claudication; M54.06 Panniculitis affecting regions of neck and back, lumbar region; M47.896 Other spondylosis, lumbar region
CPT/HCPCS: 99212; G0463

== ENCOUNTER 2021-11-18 12:38 | Day surgery (SDC) | payer MEDICARE, SELFPAY ==
[2021-11-18 12:54] VITALS: BP 131/64; PULSE 64; RESP 18; TEMP 36; O2SAT 98; BMI 34.0
[2021-11-18 13:13] VITALS: BP 126/99; PULSE 73; RESP 20; O2SAT 96
[2021-11-18 13:14] VITALS: BP 126/99; PULSE 68; RESP 20; O2SAT 97
--- NOTE | 2021-11-18 13:17 | HMH.PMPROC ---
- Procedure Date: 11/18/21 Time: 13:17 Anesthesiologist:: Alcon Riddle CRNA Complications:: None Pre-procedure Diagnosis:: facet arthropathy lumbar L2-3, L3-4 Post-procedure Diagnosis:: Same Indications for Procedure:: Very pleasant 76-year-old white female whose having some lumbar back pain that she describes as constant, dull, aching. Patient has extreme point tenderness over the upper lumbar area. Also, patient states any kind of flexion and/or extension is excruciating pain in the lumbar spine. Patient is status post lumbar fusion L4-5. She has facet arthropathy multiple levels. She presents today for L2-3, L3-4 facet block bilaterally. Procedure Details:: Informed consent was obtained and the risk and benefits of the procedure was explained to the patient. Patient was taken to the procedure room where noninvasive monitors were placed, including noninvasive blood pressure cuff as well as pulse oximeter. The area over the lumbar spine was cleansed using chlorhexidine as a cleansing solution. I anesthetized the skin and subcutaneous tissues with 1% Lidocaine. I placed 22-gauge spinal needles into the facet joint/ medial branches of L2-3, L3-4 bilaterally. Needle placement was confirmed with fluoroscopy. After confirmation of needle placement, each site was injected with 1 mL of 1% lidocaine and 0.25 % Marcaine and 10 mg of Depo-Medrol. A total of 80 mg of depo medrol was used for bilateral medial branch blocks of -L2-3, L3-4] bilaterally. Patient tolerated the procedure without difficulty. There were no complications. Plan and Disposition:: Patient was discharged from the unit after receiving the injections without incident. She will follow up with us in the pain clinic.
[2021-11-18 13:25] VITALS: BP 124/58; PULSE 63; RESP 20; O2SAT 96
== END 2021-11-18 13:26 | disposition home or self-care (01) ==
LOC: SC.PAINP 12:39
PROVIDERS: PCP Nurse Practitioner Family; Visit Provider Nurse Anesthetist, Certified Registered
DX: M54.06 Panniculitis affecting regions of neck and back, lumbar region (principal); J45.909 Unspecified asthma, uncomplicated; J44.9 Chronic obstructive pulmonary disease, unspecified; I25.10 Atherosclerotic heart disease of native coronary artery without angina pectoris; E78.5 Hyperlipidemia, unspecified; I10 Essential (primary) hypertension; G43.909 Migraine, unspecified, not intractable, without status migrainosus; R00.2 Palpitations; D64.9 Anemia, unspecified; M19.90 Unspecified osteoarthritis, unspecified site; I49.9 Cardiac arrhythmia, unspecified; Z87.891 Personal history of nicotine dependence; Z91.041 Radiographic dye allergy status
CPT/HCPCS: 64493; 64494; J1040

== ENCOUNTER → 2021-12-14 14:59 | Outpatient (CLI) | payer MEDICARE, SELFPAY ==
--- NOTE | 2021-12-14 15:04 | US_ITS ---
FINAL REPORT TECHNIQUE: Ultrasound images of the kidneys were obtained. CLINICAL HISTORY: GM RENAL CYST FINDINGS: US RETROPERITONEAL The right kidney measures 9.5 cm in length. The left kidney measures 10.9 cm in length. There is bilateral renal cortical thinning. There are 3 left renal cysts with the largest in the lower pole measuring up to 4.4 cm. There is no hydronephrosis. Blood flow is noted bilaterally. Limited images of the liver are unremarkable. IMPRESSION: No hydronephrosis. Bilateral renal cortical thinning. Left renal cysts. Reviewed, Interpreted and Dictated by Vijay Fox III, MD Transcribed by Martine Garcia Authenticated by Vijay Fox III, MD on 12/16/2021 02:21:56 PM [facility]
== END ==
PROVIDERS: PCP Nurse Practitioner Family; Visit Provider Nurse Practitioner Family
DX: N28.1 Cyst of kidney, acquired (principal)
CPT/HCPCS: 76770

== ENCOUNTER 2021-12-29 12:09 | Emergency (ER) | payer MEDICARE, SELFPAY ==
[2021-12-29 12:32] VITALS: BP 129/52; PULSE 78; RESP 19; TEMP 36.5; O2SAT 97; BMI 35.9
--- NOTE | 2021-12-29 12:32 | HMH.EDUTC ---
[facility] [place] Disposition Clinical Impression: Folliculitis Disposition: Home, Self-Care Condition on Discharge: Good Instructions: Folliculitis, DI for Folliculitis Additional Instructions: Keep the affected area clean and dry. Follow up with your regular doctor. Take the antibiotics as directed. Don't start the oral steroids (medrol dose pack) until tomorrow since you had the shot here today. Apply warm wet compresses to the affected area three or four times per day. GO TO THE ER FOR ANY WORSENING SYMPTOMS Prescriptions: Sulfamethoxazole/Trimethoprim [Bactrim DS tablet] 1 each PO BID 10 Days #20 tab [facility] methylPREDNISolone [Medrol] 4 mg PO DIRECTED 6 Days #21 packet Transmission Status: [facility] Referrals: Adrián Swenson MD [Primary Care Provider] - Time of Disposition: 13:00 Medical Decision Making - Medical Records Medical records reviewed: No: I reviewed the patient's medical records. - Agustin Inquiry Pt receiving controlled substance: No Vital Signs: 12/29/21 12:32 12/29/21 13:04 Temperature 97.7 F 97.7 F Temperature Source Oral Pulse Rate 78 Pulse Rate [Left Radial] 78 Respiratory Rate 19 19 Blood Pressure 129/52 L Blood Pressure [Right Arm] 129/52 L Blood Pressure Mean [Right Arm] 77 02 Sat by Pulse Oximetry 97 Orders (Tests/Meds): ED MEDICATIONS Discontinued Medications Generic Name Dose Route Start Last Admin Trade Name Freq PRN Reason Stop Dose Admin Methylprednisolone Sodium Succinate 125 mg 12/29/21 12:42 12/29/21 13:00 Methylprednisolone Sod Succ 125mg Vial IM 12/29/21 12:43 125 mg ONCE [address] [facility] [place] HPI - General Stated complaint: rash Time Seen by Provider: 12/29/21 12:32 - History of Present Illness Provider Complaint: She states that she has had a rash of her bilateral legs from her knees down for the past 5 days. This began after she shaved her legs. She denies any other rash or complaints. - Related Data Home Medications Medication Instructions Recorded Confirmed Linaclotide [Linzess] 290 mcg PO DAILY 10/15/17 11/18/21 Lisinopril/Hydrochlorothiazide 1 tab PO DAILY 03/15/18 11/18/21 [Lisinopril-Hctz 20-12.5 mg Tab*] metoprolol succinate 50 mg capsule 50 mg PO DAILY 10/24/18 11/18/21 sprinkle, ext. release 24 hr potassium chloride 20 mEq 20 meq PO DAILY 10/24/18 11/18/21 tablet,extended release(part/cryst) clonazepam 0.5 mg tablet 0.5 mg PO BID PRN 02/26/19 11/18/21 sennosides 8.6 mg tablet 8.6 mg PO BID PRN 02/26/19 11/18/21 tramadol 50 mg tablet 50 mg PO QID PRN 02/26/19 11/18/21 atorvastatin 20 mg tablet 20 mg PO HS 03/18/20 11/18/21 mirtazapine 15 mg tablet 15 mg PO DAILY tab 03/18/20 11/18/21 ondansetron HCl 8 mg tablet 8 mg PO DAILY PRN tab 03/18/20 11/18/21 umeclidinium 62.5 mcg-vilanterol 1 puff INHALATION DAILY 03/18/20 11/18/21 25 mcg/actuation powdr for inhalation escitalopram oxalate 5 mg tablet 5 mg PO DAILY tab 05/13/20 11/18/21 montelukast 10 mg tablet 10 mg PO DAILY tab 05/13/20 11/18/21 Azelastine HCl 1 spray INTRANASAL HS 07/04/21 11/18/21 Budesonide/Formoterol Fumarate 1 puff INHALATION BID 07/04/21 11/18/21 [Budesonide-Formoterol 160-4.5] Furosemide [Furosemide 20mg Tab*] 20 mg PO DAILY 07/04/21 11/18/21 Azelastine HCl 2 spray INTRANASAL HS 11/03/21 11/18/21 Fluticasone Propionate 1 spray INTRANASAL DAILY 11/03/21 11/18/21 Previous Rx's Medication Instructions Recorded albuterol sulfate 90 mcg/actuation 1 inh INHALATION QID PRN #6.7 g 05/18/20 aerosol inhaler Sulfamethoxazole/Trimethoprim 1 each PO BID 10 Days #20 tab 12/29/21 [Bactrim DS tablet] methylPREDNISolone [Medrol] 4 mg PO DIRECTED 6 Days #21 12/29/21 packet Allergies Allergy/AdvReac Type Severity Reaction Status Date / Time adhesive tape Allergy Severe Hives Verified 12/29/21 12:40 chlorhexidine Allergy Severe RASH
[2021-12-29 13:04] VITALS: BP 129/52; PULSE 78; RESP 19; TEMP 36.5
== END 2021-12-29 13:05 | disposition home or self-care (01) ==
PROVIDERS: Emergency Provider Nurse Practitioner Family; PCP Internal Medicine Adolescent Medicine
DX: L73.9 Follicular disorder, unspecified (principal); R00.2 Palpitations; D64.9 Anemia, unspecified; I10 Essential (primary) hypertension; I25.10 Atherosclerotic heart disease of native coronary artery without angina pectoris; E78.5 Hyperlipidemia, unspecified; M19.90 Unspecified osteoarthritis, unspecified site; G43.909 Migraine, unspecified, not intractable, without status migrainosus; H26.9 Unspecified cataract; J45.909 Unspecified asthma, uncomplicated; F41.9 Anxiety disorder, unspecified; Z79.1 Long term (current) use of non-steroidal anti-inflammatories (NSAID); Z79.51 Long term (current) use of inhaled steroids; Z79.52 Long term (current) use of systemic steroids; Z79.899 Other long term (current) drug therapy; Z88.8 Allergy status to other drugs, medicaments and biological substances; Z91.041 Radiographic dye allergy status; Z91.048 Other nonmedicinal substance allergy status; Z87.442 Personal history of urinary calculi
CPT/HCPCS: 96372; 99212; 99213; G0463

== ENCOUNTER → 2021-12-29 13:52 | Outpatient (POV) | payer MEDICARE, SELFPAY ==
[2021-12-29 14:34] VITALS: BP 138/60; PULSE 73; RESP 18; TEMP 36.7; O2SAT 94; BMI 34.7
--- NOTE | 2021-12-29 15:32 | HMH.PAINSOAP ---
[facility] Pain Management SOAP Note Subjective:: Patient is a pleasant 76-year-old female who presents today for follow-up after a diagnostic facet/medial branch block injections at bilateral L2-L3 and L3-L4 on November 18, 2021. Patient is currently being treated for degenerative disc disease of the lumbar spine, lumbar facet arthropathy, lumbar spondylosis, postlaminectomy syndrome, spinal stenosis with neurogenic claudication. Patient has a history of back surgery in 2002 when she fell. 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 After the procedure, patient had significant relief of 80 to 90% that lasted for 11 days. She states that her pain is back to baseline and rates her pain as 8 out of 10. Denies any issues after this procedure. She takes tramadol, Motrin, and diazepam for pain. These medications are somewhat helping her pain. Agustin [id number] with an active morphine equivalent of 20. Review of Systems: General: No recent weight changes, no fever, no sleep disturbances Respiratory: No cough, no shortness of air, no recurring pulmonary infections Cardiovascular/peripheral vascular: No chest pain, no palpitations, no edema, no shortness of breath Gastrointestinal: No new onset incontinence, normal bowel movements reported Genitourinary: No new onset incontinence Musculoskeletal: Low back pain Psychiatric: [Normal mood/affect] Neurological: [Denies weakness in extremities], [denies balance issues] Objective:: Physical Exam: General: Alert and oriented x3, no acute distress, pleasant and cooperative Lungs: Respirations even and unlabored, symmetrical chest expansion Eyes: PERRL Musculoskeletal: Flexion and extension of lumbar [spine] somewhat guarded secondary to pain, [antalgic gait noted]; positive Kemps Neurological: Speech clear, no gross sensory deficit Imaging: MRI Lumbar 10/25/21 L1-L2: Moderate articular facet disease and ligamentum flavum hypertrophy L2-L3: Advanced articular facet disease and ligamentum flavum hypertrophy. There is moderate canal stenosis and moderate to severe left foraminal stenosis. Right foramen is mildly narrowed. L3-L4: Advanced articular facet disease. There is moderate to severe foraminal narrowing worse on the right. There is mild to moderate canal narrowing particularly in the medial lateral dimension. There are postsurgical changes noted. L4-L5: There are postsurgical changes. There is a concentric disc bulge and advanced articular facet disease. There is mild foraminal narrowing. Canal is patent L5-S1: There is concentric disc bulge with advanced articular facet disease. There is no significant canal or foraminal stenosis. Assessment:: Degenerative disc disease of the lumbar spine with lumbar radiculopathy symptoms Lumbar spondylosis Lumbar facet arthropathy Spinal stenosis with neurogenic claudication Plan:: Patient had significant relief after her medial branch block injections that provided 11 days of relief. We will schedule the patient for a repeat diagnostic facet/medial branch block injections at bilateral L2-L3 and L3-L4. Risk and benefits of this procedure been discussed with the patient. Patient would like to proceed with this procedure. Patient is not on any blood thinners. I have discussed with the patient at this second diagnostic medial branch block injection provided significant relief. We will consider moving forward with lumbar RFA. Patient has been instructed to contact the clinic with any concerns before the next appointment. Dr. Xie has reviewed this note and agrees with this plan of care. This note was dictated using voice recognition software and make contain errors or omissions. [facility] History Medical History: Reports:: Anxiety, Arrhythmia, Asthma, Chronic Obstructive Pulmonary Disease (COPD), Coronary Artery Disease, Hyperlipidemia, Hypertension, Lung Disease, Kid
== END ==
PROVIDERS: Visit Provider Student in an Organized Health Care Education/Training Program
DX: M51.16 Intervertebral disc disorders with radiculopathy, lumbar region (principal); M47.896 Other spondylosis, lumbar region; M54.06 Panniculitis affecting regions of neck and back, lumbar region; M48.062 Spinal stenosis, lumbar region with neurogenic claudication
CPT/HCPCS: 99212; G0463

== ENCOUNTER 2022-01-23 20:38 | Emergency (ER) | payer MEDICARE, SELFPAY ==
[2022-01-23 20:40] VITALS: BP 147/57; PULSE 75; RESP 18; TEMP 36.6; O2SAT 96; BMI 35.2
[2022-01-23 20:45] VITALS: BP 147/57; PULSE 76; O2SAT 96
--- NOTE | 2022-01-23 21:54 | PC.NURSE ---
Pt family stepped out of the room and asked how long is she going to have to wait? Family was advised that staff were working as quickly as they could.
--- NOTE | 2022-01-23 22:05 | CT_ITS ---
PROCEDURE INFORMATION: Exam: CT Head Without Contrast Exam date and time: 01/23/2022 10:17 PM Age: 76 years old Clinical indication: Other: Ringing in ears; Additional info: Ringing in ear TECHNIQUE: Imaging protocol: Computed tomography of the head without contrast. Radiation optimization: All CT scans at this facility use at least one of these dose optimization techniques: automated exposure control; mA and/or kV adjustment per patient size (includes targeted exams where dose is matched to clinical indication); or iterative reconstruction. COMPARISON: CT HEAD/BRAIN WO CON 06/27/2021 1:27 PM FINDINGS: Brain: Periventricular and subcortical white matter areas of hypoattenuation, likely chronic small vessel ischemic change, demyelination, or gliosis. There is parenchymal atrophy. Cerebral ventricles: No ventriculomegaly. Paranasal sinuses: Visualized sinuses are unremarkable. No fluid levels. Mastoid air cells: Normal as visualized. Bones/joints: Normal. Soft tissues: Unremarkable. Vasculature: Atherosclerotic vascular disease. IMPRESSION: No acute intracranial abnormality.
[2022-01-23 22:21] LABS: Basophils # 0.2 K/mm3 (0-0.2); Basophils % 1.9 % (0.1-2.0); Eosinophils # 0.4 K/mm3 (0.0-0.4); Eosinophils % 4.5 % (0.1-12.0); Hematocrit 44.5 % (37.0-47.0); Hemoglobin 14.6 g/dL (12.2-16.2); Lymphocytes # 1.8 K/mm3 (0.7-4.5); Lymphocytes % 21.5 % (10-50); Mean Corpuscular HGB Conc 32.9 g/dL (31.8-35.4); Mean Corpuscular Hemoglobin 33.3 pg (27.0-31.2); Mean Corpuscular Volume 101.3 fl (81-99); Monocytes # 0.5 K/mm3 (0.1-1.0); Monocytes % 5.4 % (1.7-9.3); Neutrophils # 5.6 K/mm3 (1.8-7.8); Neutrophils % 66.7 % (37.0-80.0); Platelet Count 222 K/mm3 (142-424); Red Blood Count 4.39 M/mm3 (4.20-5.40); Red Cell Distribution Width 14.3 % (11.5-17.5); White Blood Count 8.4 K/mm3 (4.8-10.8)
[2022-01-23 22:48] LABS: Alanine Aminotransferase 24 U/L (12-78); Albumin/Globulin Ratio 1.3 (1.1-1.8); Alkaline Phosphatase 90 U/L (38-126); Anion Gap 9.7 mEq/L (5-15); Aspartate Amino Transferase 30 U/L (14-36); Blood Urea Nitrogen 18 mg/dl (7-17); Calcium 9.7 mg/dl (8.4-10.2); Carbon Dioxide 33 mmol/L (22.0-30.0); Chloride 103 mmol/L (98-107); Creatinine Clearance Estimated 63 mL/min (50-200); Estimated Glomerular Filt Rate 61 ml/min (>60); GFR (African American) 74 ML/MIN (>60); Globulin 3.2 g/dL (1.3-3.2); Glucose 113 mg/dl (74-100); Potassium 3.7 mmoL/L (3.5-5.1); Sodium 142 mmol/L (136-145); Total Protein,Serum 7.2 g/dl (6.3-8.2)
[2022-01-23 22:53] LABS: C-Reactive Protein 2.6 mg/L (0-4)
[2022-01-23 23:03] LABS: Bilirubin,Total < 0.1 mg/dl (0.2-1.3)
--- NOTE | 2022-01-23 23:12 | HMH.EDEAR ---
ED Disposition Clinical Impression: Anxiety Tinnitus Qualifiers: Laterality: bilateral Qualified Code(s): H93.13 - Tinnitus, bilateral Disposition: Home, Self-Care Condition on Discharge: Good Instructions: DI for Tinnitus Additional Instructions: call pcp in am Referrals: Adrián Swenson MD [Primary Care Provider] - - Critical Care Critical Care Time: No Attestation: On 01/23/22, the high probability of a clinically significant, sudden or life threatening deterioration of the following system(s) required my full and direct attention, intervention and personal management. The time I documented below is in addition to time spent performing reported procedures but includes the following listed in this critical care notation. Medical Decision Making - Medical Records Medical records reviewed: Yes: I reviewed the patient's medical records. - Agustin Inquiry Pt receiving controlled substance: No Vital Signs: 01/23/22 20:40 01/23/22 20:45 01/23/22 23:14 Temperature 98 F Temperature Source Oral Pulse Rate 76 68 Pulse Rate [Right] 75 Respiratory Rate 18 Blood Pressure 147/57 H 157/65 H Blood Pressure [Right Arm] 147/57 H Blood Pressure Mean [Right Arm] 87 02 Sat by Pulse Oximetry 96 96 99 Oxygen Delivery Method Room Air Room Air - Lab Data Lab results reviewed: Yes: I reviewed the patient's lab results. Lab Results 01/23/22 22:14: WBC 8.4, RBC 4.39, Hgb 14.6, Hct 44.5, MCV 101.3 H, MCH 33.3 H, MCHC 32.9, RDW 14.3, Plt Count 222, MPV 9.0, Neut % (Auto) 66.7, Lymph % (Auto) 21.5, Reagan % (Auto) 5.4, Eos % (Auto) 4.5, Baso % (Auto) 1.9, Neut # (Auto) 5.6, Lymph # (Auto) 1.8, Reagan # (Auto) 0.5, Eos # (Auto) 0.4, Baso # (Auto) 0.2 01/23/22 22:14: Sodium 142, Potassium 3.7, Chloride 103, Carbon Dioxide 33 H, Anion Gap 9.7, BUN 18 H, Creatinine 0.90, Estimated Creat Clear 63, Estimated GFR 61, Est GFR ( Amer) 74, Glucose 113 H, Calcium 9.7, Total Bilirubin < 0.1 L, AST 30, ALT 24, Alkaline Phosphatase 90, C-Reactive Protein 2.6, Total Protein 7.2, Albumin 4.0, Globulin 3.2, Albumin/Globulin Ratio 1.3, Procalcitonin 0.070 Result diagrams: 01/23/22 22:14 01/23/22 22:14 Orders (Tests/Meds): ED MEDICATIONS Discontinued Medications Generic Name Dose Route Start Last Admin Trade Name Aniya PRN Reason Stop Dose Admin Ondansetron HCl 4 mg 01/23/22 22:09 01/23/22 22:10 Ondansetron 4mg Odt SL 01/23/22 22:10 4 mg ONCE ONE Administration ORDERS Category Date Time Status Complete Blood Count Auto Diff Stat Lab 01/23/22 22:14 Results Erythrocyte Sedimentation Rate Stat Lab 01/23/22 22:14 Results - CT Data CT Scan: Head Time Received: 23:[address] Reviewed: Yes: I have viewed the radiologist's interpretation Preliminary Findings: Normal/NAD Medical Decision Narrative: has acute on chronic tinnitus and has stable exam and labs and ct - Ear HPI - General Chief complaint: Ear Stated complaint: tinnitus Time Seen by Provider: 01/23/22 23:12 Mode of Arrival: Ambulatory Source of Information: Patient, Spouse, Medical Record Limitations: No Limitations Description of Symptoms (Recalled from ER Triage Doc. by RN): pt states has ringing in both ear x 3 months but today gotten progressive worse. - History of Present Illness HPI Narrative: progressive tinnitus with hearing loss bilat which has increased despite meds and has seen pcp and ent - no acute fever or trauma MD Complaint: decreased hearing, other (tinnitus) Location: bilateral Duration: constant Severity: moderate Discharge from ear: no - Related Data Home Medications Medication Instructions Recorded Confirmed Linaclotide [Linzess] 290 mcg PO DAILY 10/15/17 12/29/21 Lisinopril/Hydrochlorothiazide 1 tab PO DAILY 03/15/18 12/29/21 [Lisinopril-Hctz 20-12.5 mg Tab*] metoprolol succinate 50 mg capsule 50 mg PO DAILY 10/24/18 12/29/21 sprinkle, ext. release 24 hr potassium chloride 20 mEq
[2022-01-23 23:14] VITALS: BP 157/65; PULSE 68; O2SAT 99
[2022-01-23 23:38] VITALS: BP 144/73; PULSE 83; RESP 18; TEMP 36.7; O2SAT 95
[2022-01-23 23:57] LABS: Erythrocyte Sedimentation Rate 45 mm/hr (0-30)
== END 2022-01-23 23:39 | disposition home or self-care (01) ==
PROVIDERS: Emergency Provider Emergency Medicine; PCP Internal Medicine Adolescent Medicine
DX: H93.13 Tinnitus, bilateral (principal); H91.90 Unspecified hearing loss, unspecified ear; R00.2 Palpitations; I10 Essential (primary) hypertension; I25.10 Atherosclerotic heart disease of native coronary artery without angina pectoris; Z87.442 Personal history of urinary calculi; I49.9 Cardiac arrhythmia, unspecified; E78.5 Hyperlipidemia, unspecified; J98.4 Other disorders of lung; M19.90 Unspecified osteoarthritis, unspecified site; G43.909 Migraine, unspecified, not intractable, without status migrainosus; H26.9 Unspecified cataract; Z79.1 Long term (current) use of non-steroidal anti-inflammatories (NSAID); Z79.51 Long term (current) use of inhaled steroids; Z79.899 Other long term (current) drug therapy; Z88.8 Allergy status to other drugs, medicaments and biological substances; Z91.041 Radiographic dye allergy status; Z91.048 Other nonmedicinal substance allergy status; Z87.891 Personal history of nicotine dependence
CPT/HCPCS: 70450; 80053; 84145; 85025; 85651; 86140

== ENCOUNTER 2022-02-03 14:40 | Day surgery (SDC) | payer MEDICARE, SELFPAY ==
[2022-02-03 15:06] VITALS: BP 133/67; PULSE 80; RESP 18; TEMP 37; O2SAT 97; BMI 34.2
[2022-02-03 15:20] VITALS: BP 114/78; PULSE 75; RESP 18; O2SAT 98
[2022-02-03 15:33] VITALS: BP 138/65; PULSE 58; RESP 20; O2SAT 95
--- NOTE | 2022-02-03 15:39 | P.PCN_ITS ---
- Procedure Date: 02/03/22 Time: 15:40 Anesthesiologist:: Spenser Xie MD Complications:: None Pre-procedure Diagnosis:: Degenerative disc disease of lumbar spine with lumbar radiculopathy symptoms and postlaminectomy syndrome lumbar spine with lumbar facet arthropathy and lumbar spondylosis Post-procedure Diagnosis:: Same Indications for Procedure:: This patient is a pleasant 76-year-old white female who we are treating for low back pain with lumbar radiculopathy symptoms and postlaminectomy syndrome lumbar spine. She also has lumbar spondylosis and lumbar facet arthropathy. She did well with previous medial branch blocks for 11 days. Her pain is returned. We will do repeat bilateral lumbar medial branch block/facet joint injections of L2-L3 and L3-L4 to see if this helps with her pain symptoms in her back. This is above the level of her hardware. Procedure Details:: Lumbar medial branch block Informed consent was obtained and the risks and benefits of the procedure was explained to the patient. The back was prepped using ChloraPrep. The skin and subcutaneous tissues were anesthetized using lidocaine. I placed 22-gauge spinal needles into the facet joint/medial branches of L2-L3 and L3-L4 bilaterally. Above the level of her hardware and fusion. Needle placement was confirmed with dye. After this we injected 3 mL bupivacaine 0.25% and Depo- Medrol 20 mg into each facet joint/medial branch of L2-L3 and L3-L4 bilaterally. We used a total of 80 mg Depo-Medrol for both levels bilaterally. The patient tolerated the procedure well with no complications. Plan and Disposition:: We will follow-up with her in 2 weeks. Will reevaluate symptoms at that time.
== END 2022-02-03 15:34 | disposition home or self-care (01) ==
LOC: SC.PAINP 14:41
PROVIDERS: PCP Internal Medicine Adolescent Medicine; Visit Provider Anesthesiology
DX: M51.16 Intervertebral disc disorders with radiculopathy, lumbar region (principal); M96.1 Postlaminectomy syndrome, not elsewhere classified; M46.96 Unspecified inflammatory spondylopathy, lumbar region
CPT/HCPCS: 64493; 64494; J1030; Q9966

== ENCOUNTER 2022-02-25 12:43 | Emergency (ER) | payer MEDICARE, SELFPAY ==
[2022-02-25 13:25] VITALS: BP 105/44; PULSE 74; RESP 18; TEMP 37.2; O2SAT 98; BMI 30.2
--- NOTE | 2022-02-25 13:46 | HMH.EDUTC ---
[facility] [place] Impression: Cellulitis Qualifiers: Site of cellulitis: extremity Site of cellulitis of extremity: upper extremity Laterality: right Qualified Code(s): L03.113 - Cellulitis of right upper limb Cat scratch of forearm Qualifiers: Encounter type: initial encounter Laterality: right Qualified Code(s): S50.811A - Abrasion of right forearm, initial encounter; W55.03XA - Scratched by cat, initial encounter Disposition: Home, Self-Care Condition on Discharge: Good Instructions: Cellulitis Additional Instructions: follow up with pcp apply cream and take antibiotics as ordered if symptoms worsen return or be seen in ed Prescriptions: Amoxicillin/Potassium Clav [Augmentin 500mg tab] 500 mg PO BID 10 Days #20 tab [email or web address] Mupirocin [Bactroban 2% Ointment 22gm tube] 1 applicatio TP BID 14 Days #22 gm Transmission Status: [email or web address] Referrals: Kathleen Sanderson APRN [Primary Care Provider] - Time of Disposition: 13:53 Medical Decision Making - Agustin Inquiry Pt receiving controlled substance: No Vital Signs: 02/25/22 13:25 Temperature 98.9 F Temperature Source Oral Pulse Rate [Left Brachial] 74 Respiratory Rate 18 Blood Pressure [Left Arm] 105/44 L Blood Pressure Mean [Left Arm] 64 Blood Pressure Source [Left Arm] Automatic Cuff Blood Pressure Position [Left Arm] Sitting 02 Sat by Pulse Oximetry 98 Oxygen Delivery Method Room Air [facility] - General Chief complaint: Urgent [facility] Stated complaint: [id number] cat scratch on right arm Time Seen by Provider: 02/25/22 13:46 Mode of Arrival: Ambulatory Source of Information: Patient Limitations: No Limitations Description of Symptoms (Recalled from Triage Doc. by RN): PATIENT STATES THAT HER CAT'S CLAW PUNCTURED HER RIGHT FOREARM 5 DAYS AGO. REDNESS AND WARMTH NOTED TO AREA. DENIES FEVER HEENT Symptoms (Recalled from RN notes): No Resp Symptoms (Recalled from RN notes): No Skin Symptoms (Recalled from RN notes): Yes MS Symptoms (Recalled from RN notes): No Functional Status (Recalled from RN notes): WNL - History of Present Illness Provider Complaint: 76 yr old female presents for redness and swelling to rt arm. pt states her cats claw punctured her skin 5 days ago and the redness and swelling started last pm and worse today - Related Data Home Medications Medication Instructions Recorded Confirmed Linaclotide [Linzess] 290 mcg PO DAILY 10/15/17 02/03/22 Lisinopril/Hydrochlorothiazide 1 tab PO DAILY 03/15/18 02/03/22 [Lisinopril-Hctz 20-12.5 mg Tab*] metoprolol succinate 50 mg capsule 50 mg PO DAILY 10/24/18 02/03/22 sprinkle, ext. release 24 hr potassium chloride 20 mEq 20 meq PO DAILY 10/24/18 02/03/22 tablet,extended release(part/cryst) clonazepam 0.5 mg tablet 0.5 mg PO BID PRN 02/26/19 02/03/22 sennosides 8.6 mg tablet 8.6 mg PO BID PRN 02/26/19 02/03/22 tramadol 50 mg tablet 50 mg PO QID PRN 02/26/19 02/03/22 atorvastatin 20 mg tablet 20 mg PO HS 03/18/20 02/03/22 mirtazapine 15 mg tablet 15 mg PO DAILY tab 03/18/20 02/03/22 ondansetron HCl 8 mg tablet 8 mg PO DAILY PRN tab 03/18/20 02/03/22 umeclidinium 62.5 mcg-vilanterol 1 puff INHALATION DAILY 03/18/20 02/03/22 25 mcg/actuation powdr for inhalation escitalopram oxalate 5 mg tablet 5 mg PO DAILY tab 05/13/20 02/03/22 montelukast 10 mg tablet 10 mg PO DAILY tab 05/13/20 02/03/22 Azelastine HCl 1 spray INTRANASAL HS 07/04/21 02/03/22 Budesonide/Formoterol Fumarate 1 puff INHALATION BID 07/04/21 02/03/22 [Budesonide-Formoterol 160-4.5] Furosemide [Furosemide 20mg Tab*] 20 mg PO DAILY 07/04/21 02/03/22 Fluticasone Propionate 1 spray INTRANASAL DAILY 11/03/21 02/03/22 Sulfamethoxazole/Trimethoprim 1 each PO BID 12/29/21 02/03/22 [Bactrim DS tablet] methylPREDNISolone [Medrol] 4 mg PO DIRECTED 12/29/21 02/03/22 Previous Rx's Medication Instructions Recorded alb
[2022-02-25 14:00] VITALS: BP 105/44; PULSE 74; RESP 18; TEMP 37.2; O2SAT 98
== END 2022-02-25 14:02 | disposition home or self-care (01) ==
PROVIDERS: Emergency Provider Nurse Practitioner Family; PCP Nurse Practitioner Family
DX: L03.113 Cellulitis of right upper limb (principal); S50.811A Abrasion of right forearm, initial encounter; W55.03XA Scratched by cat, initial encounter
CPT/HCPCS: 99212; G0463

== ENCOUNTER → 2022-04-11 13:37 | Outpatient (POV) | payer MEDICARE, SELFPAY ==
[2022-04-11 13:53] VITALS: BP 143/59; PULSE 69; RESP 20; BMI 34.0
--- NOTE | 2022-04-11 16:16 | EXP.PAIN.SOA ---
[facility] Pain Management SOAP Note Subjective:: Patient is a pleasant 77-year-old female who presents today for follow-up of medial branch block of L2-L3 and L3-4 on 02/03/2022. We are currently treating the patient for degenerative disc disease of lumbar spine with lumbar facet arthropathy, lumbar spondylosis, postlaminectomy syndrome, spinal stenosis with neurogenic claudication. Patient states she did have significant improvement following this last injection however it did not provide long-term relief. She states she only got a few days worth of about 50 to 60% improvement. Today the patient rates her pain a 8 out of 10 and states it is primarily in her low back that radiates into her bilateral lower extremities. She states she does have more severe pain along the left side that radiates into the back of her thigh and stops before her knee. Patient does complain of tinnitus that has been going on for the last 4 years. She states this affects her activities of daily living and often makes her pain worse. She states she has moments where she cannot get out of bed due to the tinnitus which worsens her low back pain. Patient states she has been a ENT specialist in [place] however they were only able to tell her that she had 50% hearing loss and could only offer a hearing aid as an option or possible surgery on her eardrum. Patient at this time is not interested in surgery for her ear. Patient also states she has significant anxiety issues and is currently on Valium however this causes her sleep disturbances. She states she does take an [id number] sleep aid that provides some improvement of her symptoms. Patient is currently on tramadol 50 mg 4 times a day by Dr. Swenson. Patient denies any side effects from this medication. She states this medication does help provide some improvement of her pain symptoms. Patient states she has had a history of falls and in 2002 she did require back surgery due to a fall. 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 Her Agustin is [id number]. It has been reviewed and appropriate. Review of Systems: General: No recent weight changes, no fever, no sleep disturbances Respiratory: No cough, no shortness of air, no recurring pulmonary infections Cardiovascular/peripheral vascular: No chest pain, no palpitations, no edema, no shortness of breath Gastrointestinal: No new onset incontinence, normal bowel movements reported Genitourinary: No new onset incontinence Musculoskeletal: [Low back pain, bilateral leg pain] Psychiatric: [Normal mood/affect] Neurological: [Denies weakness in extremities], [denies balance issues] Objective:: Physical Exam: General: Alert and oriented x3, no acute distress, pleasant and cooperative Lungs: Respirations even and unlabored, symmetrical chest expansion Eyes: PERRL Musculoskeletal: Flexion and extension of lumbar [spine] somewhat guarded secondary to pain, [antalgic gait noted]. Extreme point tenderness at left SI and positive left Mahi's, Demarco's, Gaenslen's, compression and distraction exam Neurological: Speech clear, no gross sensory deficit Assessment:: Degenerative disc disease of lumbar spine with lumbar radiculopathy symptoms, lumbar facet arthropathy, lumbar spondylosis, postlaminectomy syndrome, spinal stenosis with neurogenic claudication, left sacroiliitis Plan:: Patient continues to have significant pain along her low back radiating into her bilateral extremities. Patient had extreme point tenderness along her left SI and a positive left Mahi's, Demarco's, Gaenslen's, compression and distraction exam during today's visit. I have discussed with the patient regarding a left SI injection. Risk and benefits were discussed with the patient. She would like to proceed forward with this injection. I will also order the patient a compounding cream at today's visit. Patient may be a candidate for a spinal cord stimulator i
== END ==
PROVIDERS: Visit Provider Nurse Practitioner Family
DX: M51.16 Intervertebral disc disorders with radiculopathy, lumbar region (principal); M47.26 Other spondylosis with radiculopathy, lumbar region; M48.062 Spinal stenosis, lumbar region with neurogenic claudication; M96.1 Postlaminectomy syndrome, not elsewhere classified; M46.1 Sacroiliitis, not elsewhere classified
CPT/HCPCS: 99212; G0463

== ENCOUNTER 2022-04-18 14:09 | Day surgery (SDC) | payer MEDICARE, SELFPAY ==
[2022-04-18 14:20] VITALS: BP 133/68; PULSE 76; RESP 20; O2SAT 97; BMI 34.9
[2022-04-18 14:48] VITALS: BP 149/58; PULSE 75; RESP 19; O2SAT 98
[2022-04-18 14:50] VITALS: BP 149/58; PULSE 75; RESP 19; O2SAT 98
--- NOTE | 2022-04-18 14:55 | EXP.PAIN.PRO ---
Procedure Date: 04/18/22 Time: 14:55 Anesthesiologist:: Alcon Riddle CRNA Complications:: None Pre-procedure Diagnosis:: Degenerative disc disease lumbar spine with lumbar radiculopathy symptoms, lumbar facet arthropathy, lumbar spondylosis, postlaminectomy syndrome, spinal stenosis with neurogenic claudication, left sacroiliitis Post-procedure Diagnosis:: Same Indications for Procedure:: Patient is a pleasant 77-year-old female who presents today for left SI injection. We are currently treating the patient for degenerative disc disease of lumbar spine with lumbar radiculopathy symptoms lumbar facet arthropathy, lumbar spondylosis, postlaminectomy syndrome, spinal stenosis with neurogenic claudication, left sacroiliitis. Today the patient rates her pain a 10 out of 10 and states it is primarily in her low back on the left side and radiates into her left thigh. She describes this as a aching, throbbing sensation with some numbness that is worse with increased activity. We are in the process of getting her approved for a spinal cord stimulator trial. Patient is currently managed with tramadol 50 mg 4 times a day by Dr. Swenson. Patient denies any side effects from this medication. We will proceed forward with her left SI injection. Procedure Details:: Informed consent was obtained and the risk and benefits of the procedure were explained to the patient. The patient was taken to the procedure room where noninvasive monitors were placed including a noninvasive blood pressure cuff and pulse oximeter. The patient was placed prone on the procedure table. The left lower back/buttocks was cleansed with a chlorhexidine as a cleansing solution. C arm fluoroscopy was used to view the left sacroiliac joint. Using a 22-gauge spinal needle and fluoroscopic guidance the needle was inserted into the inferior aspect of the left sacroiliac joint. Approximately 5 mL of bupivacaine 0.25% and 40 mg Depo-Medrol was incrementally injected into the left sacroiliac joint. The patient tolerated the procedure well with no complications. Plan and Disposition:: Patient was observed in the pain clinic for a period of time and then was discharged home with no complications. Patient will return to clinic for follow-up in 2 weeks. Patient has been counseled that she may contact the clinic with any concerns before the next appointment date. Dr. Xie has reviewed this note and agrees with this plan of care. This note was dictated using voice recognition software and may contain errors or omissions.
[2022-04-18 15:01] VITALS: BP 120/64; PULSE 68; RESP 20; O2SAT 97
== END 2022-04-18 15:02 | disposition home or self-care (01) ==
PROVIDERS: PCP Nurse Practitioner Family; Visit Provider Nurse Anesthetist, Certified Registered
DX: M51.16 Intervertebral disc disorders with radiculopathy, lumbar region (principal); M47.26 Other spondylosis with radiculopathy, lumbar region; M46.1 Sacroiliitis, not elsewhere classified; M96.1 Postlaminectomy syndrome, not elsewhere classified; M48.062 Spinal stenosis, lumbar region with neurogenic claudication
CPT/HCPCS: 27096; G0260; J1040

== ENCOUNTER → 2022-05-04 12:56 | Outpatient (POV) | payer MEDICARE, SELFPAY ==
[2022-05-04 13:43] VITALS: BP 141/52; PULSE 71; RESP 18; TEMP 36.2; O2SAT 93; BMI 34.4
--- NOTE | 2022-05-04 13:47 | EXP.PAIN.SOA ---
[facility] Pain Management SOAP Note Subjective:: Patient is a pleasant 77-year-old female who presents today for follow-up of left SI injection on 04/18/2022. We are currently treating the patient for degenerative disc disease of lumbar spine with lumbar radiculopathy symptoms, lumbar facet arthropathy, lumbar spondylosis, postlaminectomy syndrome, spinal stenosis with neurogenic claudication, left sacroiliitis. Patient states that she has not had any improvement following this last injection. Today the patient rates her pain a 9 out of 10. She states the pain is primarily in her bilateral hips and low back with some left thigh pain. Patient describes this as a aching, burning sensation that is worse with twisting or bending over. She also has some numbness in her bilateral feet. Previously patient states she did have significant improvement with the medial branch block injections. She states she had at least 50% improvement lasting several weeks. Patient has chronic tinnitus that has been going on for years and is often debilitating to where she is unable to get up out of bed. She has been to see an ENT specialist in [place] however the only option they gave was a hearing aid or possible surgery on her eardrum. Patient does have significant anxiety issues and is currently on Valium however this causes sleep disturbances. She does take [id number] sleep aids with some improvement of her symptoms. She is currently prescribed tramadol 50 mg 4 times a day by Dr. Reinoso's office. Patient denies any side effects from this medication. She states this medication does adequately help manage her pain symptoms. She is also prescribed a compounding cream that provides some improvement of her symptoms. Her Agustin is [id number]. It has been reviewed and appropriate. Review of Systems: General: No recent weight changes, no fever, no sleep disturbances Respiratory: No cough, no shortness of air, no recurring pulmonary infections Cardiovascular/peripheral vascular: No chest pain, no palpitations, no edema, no shortness of breath Gastrointestinal: No new onset incontinence, normal bowel movements reported Genitourinary: No new onset incontinence Musculoskeletal: Low back pain, bilateral hip pain, left thigh pain Psychiatric: [Normal mood/affect] Neurological: [Denies weakness in extremities], [denies balance issues] Objective:: Physical Exam: General: Alert and oriented x3, no acute distress, pleasant and cooperative Lungs: Respirations even and unlabored, symmetrical chest expansion Eyes: PERRL Musculoskeletal: Flexion and extension of lumbar [spine] somewhat guarded secondary to pain, [antalgic gait noted] Neurological: Speech clear, no gross sensory deficit Assessment:: Degenerative disc disease of lumbar spine with lumbar radiculopathy symptoms, lumbar facet arthropathy, lumbar spondylosis, postlaminectomy syndrome, spinal stenosis with neurogenic claudication, left sacroiliitis Plan:: Patient continues to have significant pain in her low back that radiates to her bilateral hips. Patient had limited range of motion of her lumbar spine during today's visit. Patient has had 2 medial branch blocks that provided significant improvement of at least 50% lasting on average 2 weeks. I have discussed with the patient regarding having a RFA of her lumbar spine. Risk and benefits were discussed with the patient. She would like to proceed forward with this option. Patient is also scheduled for a psychiatric evaluation next week for a possible spinal cord stimulator trial. We will schedule the patient for a lumbar RFA of L2-L3 and L3-L4. In the future we may look at doing physical therapy as well. Patient has been instructed to contact the clinic with any concerns before the next appointment. Dr. Xie has reviewed this note and agrees with this plan of care. This note was dictated using voice recognition software and make contain errors or omissions. [facility] Medical
== END ==
PROVIDERS: Visit Provider Nurse Practitioner Family
DX: M51.16 Intervertebral disc disorders with radiculopathy, lumbar region (principal); M96.1 Postlaminectomy syndrome, not elsewhere classified; M48.061 Spinal stenosis, lumbar region without neurogenic claudication; M46.1 Sacroiliitis, not elsewhere classified
CPT/HCPCS: 99212; G0463

== ENCOUNTER 2022-05-08 07:11 | Emergency (ER) | payer MEDICARE, SELFPAY ==
[2022-05-08 07:12] VITALS: BP 160/80; PULSE 96; RESP 18; TEMP 36.7; O2SAT 96; BMI 33.2
--- NOTE | 2022-05-08 07:23 | ECG_ITS ---
APPROVED REPORT Exam: Resting ECG HR:94 bpm ECG Measurements Heart Rate 94 AXES CA 125 P 61 QRSd 89 QRS 22 QT 344 T 61 QTc 395 Conclusion SINUS RHYTHM NORMAL ECG UNCONFIRMED REPORT Electronically signed by : Khadar Quintana MD 05/08/2022 20:06:34
--- NOTE | 2022-05-08 07:35 | XR_ITS ---
FINAL REPORT CLINICAL HISTORY: PAIN COMPARISON: September 29, 2019 FINDINGS: PORTABLE CHEST A single portable view of the chest was obtained. The heart size and pulmonary vascularity are within normal limits. The mediastinum is within normal limits. There is mild bibasilar atelectasis or scarring. The bony thorax is intact. IMPRESSION: Mild bibasilar atelectasis or scarring. Reviewed, Interpreted and Dictated by Vijay Fox III, MD Transcribed by Martine Garcia Authenticated and [facility]
[2022-05-08 07:44] LABS: Basophils # 0.1 K/mm3 (0-0.2); Basophils % 0.9 % (0.1-2.0); Eosinophils # 0.2 K/mm3 (0.0-0.4); Eosinophils % 2.2 % (0.1-12.0); Hematocrit 45.6 % (37.0-47.0); Hemoglobin 14.7 g/dL (12.2-16.2); Lymphocytes # 2.5 K/mm3 (0.7-4.5); Lymphocytes % 22.8 % (10-50); Mean Corpuscular HGB Conc 32.3 g/dL (31.8-35.4); Mean Corpuscular Volume 99.2 fl (81-99); Mean Platelet Volume 9.1 fl (7.4-10.4); Monocytes # 0.5 K/mm3 (0.1-1.0); Monocytes % 4.9 % (1.7-9.3); Neutrophils # 7.5 K/mm3 (1.8-7.8); Neutrophils % 69.2 % (37.0-80.0); Platelet Count 221 K/mm3 (142-424); Red Cell Distribution Width 13.4 % (11.5-17.5); White Blood Count 10.8 K/mm3 (4.8-10.8)
[2022-05-08 07:45] VITALS: BP 133/71; PULSE 80; RESP 10; O2SAT 93
[2022-05-08 07:46] LABS: Chloride 100 mmol/L (98-107); Potassium 3.7 mmoL/L (3.5-5.1); Sodium 141 mmol/L (136-145)
[2022-05-08 07:49] LABS: Alanine Aminotransferase 26 U/L (12-78); Albumin Level 4.3 g/dl (3.5-5.0); Albumin/Globulin Ratio 1.5 (1.1-1.8); Alkaline Phosphatase 126 U/L (38-126); Anion Gap 14.7 mEq/L (5-15); Aspartate Amino Transferase 29 U/L (14-36); Bilirubin,Total 0.3 mg/dl (0.2-1.3); Blood Urea Nitrogen 16 mg/dl (7-17); Calcium 9.1 mg/dl (8.4-10.2); Carbon Dioxide 30 mmol/L (22.0-30.0); Creatinine Clearance Estimated 60 mL/min (50-200); Estimated Glomerular Filt Rate 70 ml/min (>60); GFR (African American) 84 ML/MIN (>60); Globulin 2.9 g/dL (1.3-3.2); Glucose 109 mg/dl (74-100); Total Protein,Serum 7.2 g/dl (6.3-8.2)
--- NOTE | 2022-05-08 07:55 | PC.NURSE ---
ED MD AT BEDSIDE
[2022-05-08 08:00] VITALS: BP 113/64; PULSE 81; RESP 11; O2SAT 94
--- NOTE | 2022-05-08 08:00 | HMH.EDGENADL ---
Discharge Plan Disposition Patient Disposition: Home, Self-Care Condition: Good Prescriptions Prescriptions: No Action mirtazapine 15 mg tablet 15 mg PO DAILY umeclidinium-vilanterol 62.5-25 mcg/actuation blister with device 1 puff INHALATION DAILY ondansetron HCl 8 mg tablet 8 mg PO DAILY PRN (Reason: n/v) montelukast 10 mg tablet 10 mg PO DAILY escitalopram oxalate 5 mg tablet 5 mg PO DAILY metoprolol succinate 50 mg capsule,sprinkle,ER 24hr 50 mg PO DAILY potassium chloride [Klor-Con M20] 20 mEq tablet,ER particles/crystals 20 meq PO DAILY tramadol 50 mg tablet 50 mg PO QID PRN (Reason: Pain) sennosides [senna] 8.6 mg tablet 8.6 mg PO BID PRN (Reason: Constipation) albuterol sulfate 90 mcg/actuation HFA aerosol inhaler 1 inh INHALATION QID PRN (Reason: shortness of breath or wheezing) Qty: 6.7 2RF lisinopril-hydrochlorothiazide 1 EACH tablet 1 tab PO DAILY atorvastatin 20 mg tablet 20 mg PO HS fluticasone propionate 16 GM spray,suspension 1 spray INTRANASAL DAILY Rx Instructions: administer into each nostril mupirocin 22 GM ointment 1 applicatio TP BID budesonide-formoterol [Symbicort] 160-4.5 mcg/actuation HFA aerosol inhaler 1 puff IH BID linaclotide 290 MCG capsule 290 mcg PO DAILY Label Comments: clonazepam 0.5 mg tablet 0.5 mg PO BID PRN (Reason: Anxiety) Label Comments: furosemide 20 MG tablet 20 mg PO DAILY azelastine 205.5 MCG/0.137 ML spray,non-aerosol 1 spray INTRANASAL HS Rx Instructions: administer into each nostril Referrals Follow up/Referrals: Kathleen Sanderson APRN [Primary Care Provider] - See instructions Activity Restrictions/Add. Instructions Additional Instructions/Restrictions: Follow-up with your primary care doctor as needed. Return to the emergency department immediately if you feel worse in any way. Clinical Impressions Clinical Impression: Weakness Instructions Patient Instructions: DI for Muscle Weakness Discharge ED Provider: Jennifer Traore Adult [facility] General Chief complaint: PAIN Stated complaint: back pain,heart racing Time Seen by Provider: 05/08/22 08:00 Mode of Arrival: Wheelchair Source of Information: Patient and Spouse Limitations: No Limitations Description of Symptoms (Recalled from ER Triage Doc. by RN): PT TO ED FOR C/O BACK PAIN UNDER RIGHT SHOULDER BLADE. BEGAN A COUPLE OF DAYS AGO WHEN SHE WAS TURNING OVER IN BED. STATES HER HR WAS 120 THIS AM WHEN SHE WOKE UP. DENIES ANY OTHER PAIN History of Present Illness HPI narrative: The patient presents to the emergency department complaining of sweating spells for the last 3 to 4 days. She also complains of right upper back pain that started when she turned in bed a few nights ago. She also complains of generalized weakness and palpitations. She feels that she may be dehydrated. However, she denies any nausea vomiting diarrhea or decreased fluid intake. Related Data Home Medications Medication Instructions Recorded Confirmed linaclotide 290 mcg capsule 290 mcg PO DAILY CONSTI 10/15/17 05/04/22 lisinopril 20 1 tab PO DAILY BLOOD PRESSURE 03/15/18 05/04/22 mg-hydrochlorothiazide 12.5 mg tablet metoprolol succinate 50 mg capsule 50 mg PO DAILY HTN 10/24/18 05/04/22 sprinkle, ext. release 24 hr potassium chloride 20 mEq 20 meq PO DAILY Supplement 10/24/18 05/04/22 tablet,extended release(part/cryst) (Klor-Con M) clonazepam 0.5 mg tablet 0.5 mg PO BID PRN Anxiety 02/26/19 05/04/22 sennosides 8.6 mg tablet (senna) 8.6 mg PO BID PRN Constipation 02/26/19 05/04/22 tramadol 50 mg tablet 50 mg PO QID PRN Pain 02/26/19 05/04/22 atorvastatin 20 mg tablet 20 mg PO HS Cholesterol 03/18/20 05/04/22 mirtazapine 15 mg tablet 15 mg PO DAILY . 03/18/20 05/04/22 ondansetron HCl 8 mg tablet 8 mg PO DAILY PRN n/v 03/18/20 05/04/22 umeclidinium 62.5 mcg-
[2022-05-08 08:03] LABS: Troponin I < 0.01 ng/ml (0.00-0.034)
--- NOTE | 2022-05-08 08:10 | PC.NURSE ---
XR AT BEDSIDE
[2022-05-08 08:30] VITALS: BP 125/68; PULSE 76; RESP 13; O2SAT 95
--- NOTE | 2022-05-08 08:59 | PC.NURSE ---
assisted pt with getting dressed for discharge
[2022-05-08 09:50] VITALS: BP 130/72; PULSE 72; RESP 16; TEMP 36.7; O2SAT 97
== END 2022-05-08 09:50 | disposition home or self-care (01) ==
PROVIDERS: Emergency Provider Emergency Medicine; PCP Nurse Practitioner Family
DX: M54.6 Pain in thoracic spine (principal); M25.511 Pain in right shoulder; R42 Dizziness and giddiness; R53.1 Weakness; R06.02 Shortness of breath; R61 Generalized hyperhidrosis; R11.2 Nausea with vomiting, unspecified; K59.00 Constipation, unspecified; F41.9 Anxiety disorder, unspecified; Z79.1 Long term (current) use of non-steroidal anti-inflammatories (NSAID); Z79.51 Long term (current) use of inhaled steroids; Z88.8 Allergy status to other drugs, medicaments and biological substances; Z91.041 Radiographic dye allergy status; Z91.048 Other nonmedicinal substance allergy status
CPT/HCPCS: 71045; 80053; 84484; 85025; 93005; 99284

== ENCOUNTER 2022-06-06 14:10 | Day surgery (SDC) | payer MEDICARE, SELFPAY ==
[2022-06-06 14:22] VITALS: BP 137/57; PULSE 71; RESP 18; TEMP 36.6; O2SAT 98; BMI 32.8
--- NOTE | 2022-06-06 14:54 | P.PCN_ITS ---
Procedure Date: 06/06/22 Time: 14:45 Anesthesiologist:: Alcon Riddle CRNA Complications:: None Pre-procedure Diagnosis:: Degenerative disc disease lumbar spine multilevels. Lumbar postlaminectomy syndrome. Lumbar facet arthropathy. Lumbar spondylosis Post-procedure Diagnosis:: Same Indications for Procedure:: Very pleasant 77-year-old female that comes our clinic today for radiofrequency ablation of the L2-3, L3-4 levels bilaterally. Patient responded well to her first medial branch block/facet block at these levels. Second block did not provide much relief. Procedure Details:: Lumbar RFA Procedure Details: Lumbar RFA Informed consent was obtained and the risk and benefits of the procedure was explained to the patient. Patient was placed prone on the procedure table. The patient was prepped and draped in sterile fashion. C-arm fluoroscopy was used to view the lumbar spine. The skin and subcutaneous tissues were anesthetized using lidocaine. I placed 20-gauge RF needles into the facet joints of L2-3, L3-L4 bilaterally. We underwent sensory stimulation. There is good sensory stimulation at 0.8 V. We underwent motor stimulation. There is no motor stimulation at 2 V. We then anesthetized these levels with lidocaine and Depo- Medrol. I used a total of 40 mg Depo-Medrol for all 3 levels. I then burned all 3 levels of L2-3, L3-4 bilaterally for 2 minutes at 80 ?C. Patient tolerated the procedure well with no complication. Plan and Disposition:: We will follow-up with this patient in 2 weeks. We will reevaluate her symptoms at that time. Plan and Disposition:: Patient was discharged without incident.
[2022-06-06 14:57] VITALS: BP 135/54; PULSE 68; RESP 18; O2SAT 98
== END 2022-06-06 14:57 | disposition home or self-care (01) ==
PROVIDERS: PCP Nurse Practitioner Family; Visit Provider Nurse Anesthetist, Certified Registered
DX: M51.36 Other intervertebral disc degeneration, lumbar region (principal); M47.816 Spondylosis without myelopathy or radiculopathy, lumbar region; M96.1 Postlaminectomy syndrome, not elsewhere classified
CPT/HCPCS: 62282; J1030

== ENCOUNTER → 2022-08-21 16:21 | Outpatient (CLI) | payer MEDICARE, SELFPAY ==
--- NOTE | 2022-08-21 16:32 | XR_ITS ---
PROCEDURE INFORMATION: Exam: XR Right Foot Complete; Alignment Exam date and time: 08/21/2022 4:34 PM Age: 77 years old Clinical indication: Pain; Foot; Right; Additional info: B/l foot pain TECHNIQUE: Imaging protocol: Radiologic exam of the Right foot. Views: 3 or more views. COMPARISON: US Lower Arterial 01/07/2019 2:58 PM FINDINGS: Bones/joints: No acute appearing fracture or dislocation. Bones appear mildly demineralized. The calcaneal pitch is at the lower range of normal approximately 17 degrees. There is a prominent plantar calcaneal spur, and small Achilles spur. No significant hallux valgus, but there are arthritic deformities of the hallux sesamoids. Arthritis of the interphalangeal joint of the great toe greatest laterally with joint narrowing and periarticular spurs. Scattered areas of cortical-periosteal thickening of the diaphyses of 2nd, 3rd and 4th metatarsals and proximal phalanges, likely chronic stress reaction. Minimal arthritic changes in the midfoot. Soft tissues: Some calcifications in the distal Achilles tendon near the insertion.No acute findings. No soft tissue emphysema.No radiopaque foreign bodies seen. IMPRESSION: 1. No acute fracture or dislocation. 2. Plantar calcaneal spur, correlate for history of plantar fasciitis. Small Achilles calcaneal spur and some Achilles tendon calcifications, suggesting chronic calcific Achilles tendinopathy. 3. Arthritic changes in the great toe. 4. Additional nonemergency and chronic findings as above.
--- NOTE | 2022-08-21 16:32 | XR_ITS ---
PROCEDURE INFORMATION: Exam: XR Left Foot Complete; Alignment Exam date and time: 08/21/2022 4:34 PM Age: 77 years old Clinical indication: Pain; Foot; Left; Additional info: B/l foot pain TECHNIQUE: Imaging protocol: Radiologic exam of the Left foot. Views: 3 or more views. COMPARISON: CR [id number] XR foot LT min 3V 12/08/2018 1:43 PM FINDINGS: Bones/joints: No acute fracture or dislocation. Bones appear mildly demineralized. Chronic cluster of rounded and ovoid ossicles at the medial pole of the tarsal navicular bone compared with 12/08/2018, and though this could be congenital accessory ossicle or ossicles, these may have been previously traumatized with stress fractures. This does not appear acute. Calcaneal pitch is within normal limits 19 degrees. There is a mild hallux valgus deformity, with 1st metatarsophalangeal angle of approximately 19 degrees. Mild arthritis at the 1st MTP joint with tiny periarticular spurs and calcifications. Degenerative spurs of the medial hallux sesamoid. Chronic appearing cortical-periosteal thickening of 2nd, 3rd and 4th metatarsal diaphyses, likely chronic stress reaction . A chronic accessory peroneal ossicle. Cortical tug lesion or ventral spurring of the distal anterior talus.There are no lytic skeletal lesions seen. Soft tissues: Mild soft tissue swelling.No radiopaque foreign bodies seen. No soft tissue emphysema. IMPRESSION: 1. No acute fracture or dislocation. 2. Small plantar and Achilles calcaneal spurs, correlate for history of plantar fasciitis or Achilles tendinopathy. This appears milder in the left foot compared with the right. 3. Slight hallux valgus deformity, mild arthritic changes in the hallux sesamoids. 4. Fragmentation of an accessory navicular ossicle is chronic compared with 12/08/2018, suggesting old stress fracture.
== END ==
PROVIDERS: PCP Nurse Practitioner Family; Visit Provider Nurse Practitioner Family
DX: M79.671 Pain in right foot (principal); M79.672 Pain in left foot
CPT/HCPCS: 73630

== ENCOUNTER → 2022-09-11 14:53 | Outpatient (CLI) | payer MEDICARE, SELFPAY ==
--- NOTE | 2022-09-11 14:56 | US_ITS ---
FINAL REPORT CLINICAL HISTORY: bilateral lower extremity pain, HLD, HTN, CAD FINDINGS: ANKLE-BRACHIAL PRESSURE INDICES Pressure indices are as follows: RIGHT LOWER EXTREMITY: Ankle-brachial pressure index: 1.07 Comments: Normal LEFT LOWER EXTREMITY: Ankle-brachial pressure index: 1.07 Comments: Normal CONCLUSION: No evidence of significant obstructive peripheral vascular disease of the lower extremities Reviewed, Interpreted and Dictated by Duncan House MD Transcribed by Martine Garcia Authenticated and [facility]
== END ==
PROVIDERS: PCP Nurse Practitioner Family; Visit Provider Nurse Practitioner Family
DX: R09.89 Other specified symptoms and signs involving the circulatory and respiratory systems (principal)
CPT/HCPCS: 93923

== ENCOUNTER → 2022-09-28 14:41 | Outpatient (POV) | payer MEDICARE, SELFPAY ==
[2022-09-28 15:01] VITALS: BP 169/76; PULSE 82; RESP 18; O2SAT 96; BMI 34.9
--- NOTE | 2022-09-28 15:24 | EXP.PAIN.SOA ---
[facility] Pain Management SOAP Note Subjective:: Patient is a pleasant 77-year-old female who presents today for follow-up of insurance denial of spinal cord stimulator trial. We are currently treating the patient for degenerative disc disease of lumbar spine with lumbar radiculopathy symptoms, lumbar facet arthropathy, lumbar spondylosis, postlaminectomy syndrome, spinal stenosis with neurogenic claudication, left-sided sacroiliitis. Today she rates her pain a 6 out of 10. Patient denies any new trauma or injury. Patient denies any change location or type of pain she experiences. Patient states she continues to have debilitating pain in her low back with radiating symptoms into her bilateral lower extremities. Patient does states she has numbness and weakness in her lower extremities and frequently has to stop and take breaks due to the pain. Patient also states she continues to have significant tinnitus and has been to multiple specialist who have stated they are not able to provide any additional treatment. Patient states this has been going on for over 2 to 3 years. Patient does have significant anxiety issues and is on a daily medication. Patient states now it is clonazepam however she states this just makes her sleepy. Patient is currently managed with clonazepam 1 mg twice a day from her primary care doctor's office. Patient has been prescribed compounding cream in the past however she states this only provides minimal improvement. Her Agusitn is [id number]. Its been reviewed and appropriate. Review of Systems: General: No recent weight changes, no fever, no sleep disturbances Respiratory: No cough, no shortness of air, no recurring pulmonary infections Cardiovascular/peripheral vascular: No chest pain, no palpitations, no edema, no shortness of breath Gastrointestinal: No new onset incontinence, normal bowel movements reported Genitourinary: No new onset incontinence Musculoskeletal: Low back pain, bilateral leg pain Psychiatric: [Normal mood/affect] Neurological: [Denies weakness in extremities], [denies balance issues] Objective:: Physical Exam: General: Alert and oriented x3, no acute distress, pleasant and cooperative Lungs: Respirations even and unlabored, symmetrical chest expansion Eyes: PERRL Musculoskeletal: Flexion and extension of lumbar [spine] somewhat guarded secondary to pain, [antalgic gait noted] Neurological: Speech clear, no gross sensory deficit ORT score updated with low risk Assessment:: Degenerative disc disease of lumbar spine with lumbar radiculopathy symptoms, lumbar facet arthropathy, lumbar spondylosis, postlaminectomy syndrome, spinal stenosis with neurogenic claudication, left-sided sacroiliitis Plan:: Patient continues to experience significant pain in her low back with radiating symptoms into her lower extremities. Patient did have limited range of motion of her lumbar spine during today's visit. I will send the patient for a neurosurgeon consult to review possible surgical interventions available. I will also order updated MRI imaging without contrast of her lumbar spine. Patient will follow-up in clinic following this imaging for reevaluation of symptoms and plan of care. Patient has been instructed to contact the clinic with any concerns before the next appointment. Dr. Xie has reviewed this note and agrees with this plan of care. This note was dictated using voice recognition software and make contain errors or omissions. [facility] Disclaimer: The information contained in this section may have been updated after the patient was seen, as this information can be updated by other users. Medical History Asthma Dizziness Dyspnea on exertion Foot pain, bilateral Hypertension Multiple pulmonary nodules Seasonal allergies Wheezing Family History Other No significant family history Social His
== END ==
PROVIDERS: PCP Internal Medicine Adolescent Medicine; Visit Provider Nurse Practitioner Family
DX: M51.16 Intervertebral disc disorders with radiculopathy, lumbar region (principal); M47.26 Other spondylosis with radiculopathy, lumbar region; M46.1 Sacroiliitis, not elsewhere classified; M48.062 Spinal stenosis, lumbar region with neurogenic claudication; M96.1 Postlaminectomy syndrome, not elsewhere classified; Z79.899 Other long term (current) drug therapy
CPT/HCPCS: 99212; G0463

== ENCOUNTER → 2022-10-17 13:55 | Outpatient (CLI) | payer MEDICARE, SELFPAY ==
--- NOTE | 2022-10-17 14:13 | MR_ITS ---
FINAL REPORT CLINICAL HISTORY: LBP WITH BLE PAIN FINDINGS: Multiplanar MR imaging of the lumbar spine was performed without contrast. On the sagittal T2-weighted images, disc degeneration is seen at multiple levels. There is fusion of L4-5. There are endplate changes at multiple levels. The vertebral alignment is normal. There is no evidence of fracture. The conus has an unremarkable appearance. L1-2: An annular bulge and facet arthropathy are present. There is mild bilateral neural foraminal narrowing. L2-3: An annular bulge is present. Facet arthropathy and osteophytes are present. There is moderate bilateral neural foraminal narrowing. L3-4: An annular bulge is present. Facet arthropathy and osteophytes are present. There is moderate right and mild left neural foraminal narrowing. L4-5: This level is fused. There is mild left neural foraminal narrowing. L5-S1: An annular bulge and facet arthropathy are present. There is mild left neural foraminal narrowing. Note is made of spurring of the right sacroiliac joint. IMPRESSION: Multilevel degenerative disc disease and spondylosis. Fusion of L4-5. Reviewed, Interpreted and Dictated by Vijay Fox III, MD Transcribed by Melinda Ibrahim Authenticated and . [facility]
== END ==
PROVIDERS: PCP Internal Medicine Adolescent Medicine; Visit Provider Nurse Practitioner Family
DX: M54.50 Low back pain, unspecified (principal); M79.604 Pain in right leg; M79.605 Pain in left leg
CPT/HCPCS: 72148; 76376

== ENCOUNTER → 2022-11-08 14:37 | Outpatient (POV) | payer MEDICARE, SELFPAY ==
[2022-11-08 15:30] VITALS: BP 147/55; PULSE 66; RESP 18; O2SAT 97; BMI 32.3
--- NOTE | 2022-11-08 15:56 | EXP.PAIN.SOA ---
[facility] Pain Management SOAP Note Subjective:: Patient is a pleasant 77-year-old female who presents today for follow-up.? We are currently treating the patient for degenerative disc disease of lumbar spine with lumbar radiculopathy symptoms, lumbar facet arthropathy, lumbar spondylosis, postlaminectomy syndrome, spinal stenosis with neurogenic claudication, left-sided sacroiliitis.? Today she rates her pain a 9 out of 10.? Patient denies any new trauma or injury.? She states she is experiencing worsening pain in her low back bilaterally that radiates into her hips and describes as a burning, tingling sensation that is worse with increased activity. Patient states this has been going on since her last visit last month. She does state it interferes with her ability to perform activities of daily living such as cooking and cleaning. Patient cannot tolerate prolonged sitting, standing, walking due to the pain. At our last visit she had been denied for the spinal cord stimulator trial by insurance due to not having updated imaging and not being seen by a neurosurgeon. Patient states she was contacted by [facility] orthopedics however she has not gone to this appointment yet. Patient has had an updated MRI imaging done and states that she recently got in the mail this week and approval for her insurance for the spinal cord stimulator trial. Patient states she continues to have debilitating pain in her low back with radiating symptoms.?she continues to have tinnitus which causes additional problems on a daily basis.? Patient states this has been going on for over 2 to 3 years.?Patient is currently managed with clonazepam 1 mg twice a day and tramadol 50 mg 3 times a day from her primary care doctor's office.? Patient denies any side effects from these medications. Patient has been prescribed compounding cream in the past however she states this only provides minimal improvement.? Her Agustin is [id number].? Its been reviewed and appropriate. Review of Systems: General: No recent weight changes, no fever, no sleep disturbances Respiratory: No cough, no shortness of air, no recurring pulmonary infections Cardiovascular/peripheral vascular: No chest pain, no palpitations, no edema, no shortness of breath Gastrointestinal: No new onset incontinence, normal bowel movements reported Genitourinary: No new onset incontinence Musculoskeletal: Low back pain, leg pain Psychiatric: [Normal mood/affect] Neurological: [Denies weakness in extremities], [denies balance issues] Objective:: Physical Exam: General: Alert and oriented x3, no acute distress, pleasant and cooperative Lungs: Respirations even and unlabored, symmetrical chest expansion Eyes: PERRL Musculoskeletal: Flexion and extension of lumbar [spine] somewhat guarded secondary to pain, [antalgic gait noted] extreme point tenderness noted at bilateral SIs with positive bilateral Mahi's, Demarco's, Gaenslen's, compression and distraction exam Neurological: Speech clear, no gross sensory deficit FINAL REPORT CLINICAL HISTORY: LBP WITH BLE PAIN FINDINGS: Multiplanar MR imaging of the lumbar spine was performed without contrast. On the sagittal T2-weighted images, disc degeneration is seen at multiple levels.? There is fusion of L4-5.? There are endplate changes at multiple levels. ? The vertebral alignment is normal.? There is no evidence of fracture.? The conus has an unremarkable appearance.? L1-2:? An annular bulge and facet arthropathy are present.? There is mild bilateral neural foraminal narrowing.? L2-3:? An annular bulge is present.? Facet arthropathy and osteophytes are present.? There is moderate bilateral neural foraminal narrowing.? L3-4:? An annular bulge is present.? Facet arthropathy and osteophytes are present. There is moderate right and mild left neural foraminal narrowing.? L4-5:? This level is fused.? There is mild left neural foraminal narrowing.? L5-S1:? An annular bulge and facet arthropathy are present.
== END ==
PROVIDERS: PCP Nurse Practitioner Family; Visit Provider Nurse Practitioner Family
DX: M51.16 Intervertebral disc disorders with radiculopathy, lumbar region (principal); M47.26 Other spondylosis with radiculopathy, lumbar region; M48.062 Spinal stenosis, lumbar region with neurogenic claudication; M46.1 Sacroiliitis, not elsewhere classified; M96.1 Postlaminectomy syndrome, not elsewhere classified
CPT/HCPCS: 99212; G0463

== ENCOUNTER 2022-11-14 13:51 | Day surgery (SDC) | payer MEDICARE, SELFPAY ==
[2022-11-14 14:20] VITALS: BP 146/80; PULSE 66; RESP 18; TEMP 36.9; O2SAT 96; BMI 34.0
[2022-11-14 14:33] VITALS: BP 149/67; PULSE 67; RESP 18; O2SAT 96
--- NOTE | 2022-11-14 14:34 | P.PCN_ITS ---
Procedure Date: 11/14/22 Time: 14:20 Anesthesiologist:: Alcon Riddle CRNA Complications:: None Pre-procedure Diagnosis:: Bilateral sacroiliitis Post-procedure Diagnosis:: Same Indications for Procedure:: Patient is a pleasant 77-year-old female that comes our clinic today for bilateral sacroiliac joint injections. According to the patient she has had these injections in the past with significant improvement. She has extreme point tenderness over the bilateral sacroiliac joints. She rates her pain 7/10 Procedure Details:: Procedure: Bilateral sacroiliac joint injections under fluoroscopy Informed consent was obtained and the risks and benefits of the procedure were explained to the patient.~ The patient was taken to the procedure room and noninvasive monitors were placed including a noninvasive blood pressure cuff and pulse oximeter.~ The patient was placed prone on the procedure table. Both hips were cleansed using Betadine as a cleansing solution. C-arm fluoroscopy was used to view the right sacroiliac joint.~ The skin and subcutaneous tissues were anesthetized using lidocaine 1.5% and a 25-gauge needle.~ After this, a 22-gauge spinal needle was inserted under fluoroscopic guidance into the inferior aspect of the right sacroiliac joint.~ Omnipaque dye was injected and good spread was seen throughout the joint.~ After this, approximately 5 mL of bupivacaine, 0.25% and Depo-Medrol, 40 mg was incrementally injected into the right sacroiliac joint. We then moved to the left sacroiliac joint.~ The skin and subcutaneous tissues were anesthetized using lidocaine 1.5% and a 25-gauge needle.~ After this, a 22- gauge spinal needle was inserted under fluoroscopic guidance into the inferior aspect of the left sacroiliac joint.~ Omnipaque dye was injected and good spread was seen throughout the joint. After this, approximately 5 mL of bupivacaine, 0.25% and Depo-Medrol, 40 mg was incrementally injected into the left sacroiliac joint.~ The patient tolerated the procedure well with no complications. The patient was observed in the Pain Clinic and then was discharged home neurologically intact. Plan and Disposition:: Patient was discharged without incident.
== END 2022-11-14 14:33 | disposition home or self-care (01) ==
PROVIDERS: PCP Nurse Practitioner Family; Visit Provider Nurse Anesthetist, Certified Registered
DX: M46.1 Sacroiliitis, not elsewhere classified (principal)
CPT/HCPCS: 27096; G0260; J1030

== ENCOUNTER → 2022-11-29 14:29 | Outpatient (CLI) | payer MEDICARE, SELFPAY ==
[2022-11-29 15:19] LABS: Basophils # 0.1 K/mm3 (0-0.2); Basophils % 0.6 % (0.1-2.0); Eosinophils # 0.3 K/mm3 (0.0-0.4); Eosinophils % 3.2 % (0.1-12.0); Hematocrit 45.7 % (37.0-47.0); Hemoglobin 14.8 g/dL (12.2-16.2); Lymphocytes # 2.1 K/mm3 (0.7-4.5); Lymphocytes % 21.2 % (10-50); Mean Corpuscular HGB Conc 32.4 g/dL (31.8-35.4); Mean Corpuscular Hemoglobin 31.7 pg (27.0-31.2); Mean Platelet Volume 8.8 fl (7.4-10.4); Monocytes # 0.7 K/mm3 (0.1-1.0); Monocytes % 7.1 % (1.7-9.3); Neutrophils # 6.8 K/mm3 (1.8-7.8); Platelet Count 199 K/mm3 (142-424); Red Blood Count 4.66 M/mm3 (4.20-5.40); Red Cell Distribution Width 13.6 % (11.5-17.5)
[2022-11-29 16:04] LABS: Anion Gap 10.8 mEq/L (5-15); Blood Urea Nitrogen 21 mg/dl (7-17); Carbon Dioxide 31 mmol/L (22.0-30.0); Chloride 102 mmol/L (98-107); Estimated Glomerular Filt Rate 61 ml/min (>60); GFR (African American) 74 ML/MIN (>60); Glucose 77 mg/dl (74-100); Potassium 4.8 mmoL/L (3.5-5.1); Sodium 139 mmol/L (136-145)
== END ==
PROVIDERS: PCP Nurse Practitioner Family; Visit Provider Anesthesiology
DX: Z01.818 Encounter for other preprocedural examination (principal); M51.36 Other intervertebral disc degeneration, lumbar region
CPT/HCPCS: 36415; 80048; 85025

== ENCOUNTER → 2022-12-01 06:04 | Day surgery (SDC) | payer MEDICARE, SELFPAY ==
--- NOTE | 2022-11-30 09:23 | SUR.PREOP ---
Rec'd TC from scheduling to call pt's . TC to , he explained that pt had a fall this morning when she was getting out of bed and he doesn't know if she will be able to have surgery in the morning. He wants to wait until she wakes up again later to determine how she feels before deciding. Instructed to call Dr. Xie office with updates, verbalized understanding. TC to Dr. Xie office to update on this info.
[2022-12-01 06:29] VITALS: BP 137/67; PULSE 72; RESP 18; TEMP 36.1; O2SAT 96; BMI 34.4
--- NOTE | 2022-12-01 07:55 | SUR.PREOP ---
Dr Xie spoke with patient and they decided to Cancel surgery due to patient fell yesterday and has bruising and soreness Patient agreeable to be seen in ED report called to Gino- will be escorted to ED registration via patient stable Vijay at her side.
--- NOTE | 2022-12-01 09:33 | EXP.PAIN.SOA ---
[facility] Pain Management SOAP Note Subjective:: This patient was a 77-year-old white female who is scheduled for spinal cord stimulator trial today to help with low back pain and leg pain. She had a recent fall last night. She has bruising over her right thoracic area. She also hurt injured her shoulder and right thumb. Since she was in acute pain today it was decided to postpone her procedure and have her evaluated by the ER. She also has had frequent falls. She has recently upped her dose of Klonopin. We will have her evaluated by Radha and Dr. Perry's office to look at her medications and assess her frequent falls. We will follow-up with her in the clinic. We will reevaluate her symptoms and medication list and when she has recovered from her recent fall we will reschedule the stimulator trial. Objective:: Alert and oriented x3 no acute distress. Patient is seen lying in bed. She does have bruising over the right thoracic area. She is very tender over this area. She also has pain over the right shoulder. Assessment:: Degenerative disease of lumbar spine with lumbar radiculopathy symptoms with increasing right-sided chest wall pain and shoulder pain status post recent fall. Plan:: We will refer the patient down to the emergency room to be evaluated from a recent fall last night. We will also reach out to Radha and Dr. Perry's office to go over her medication list as she has recently increased her Klonopin dose and has had recent frequent falls since she has had dizziness and unsteadiness with this increasing Klonopin. [facility] Disclaimer: The information contained in this section may have been updated after the patient was seen, as this information can be updated by other users. Medical History (Updated 12/01/22 @ 07:35 by Manju Sanderson RN) Anxiety Asthma Asthma Cataract Dizziness Dyspnea on exertion Edema Foot pain, bilateral History of anemia History of back pain History of cataract History of diverticulitis Hypertension Migraine Multiple pulmonary nodules Osteoarthritis Ringing in ears Seasonal allergies Sleep apnea Urinary tract infection Wheezing Surgical History (Updated 12/01/22 @ 07:15 by Alondra Butler RN) H/O: hysterectomy History of appendectomy History of carpal tunnel surgery of right wrist History of cataract surgery History of hip surgery History of left hip replacement Hx of cardiac cath Hx of cholecystectomy Hx of right coronary artery stent placement Hx of shoulder surgery Hx of vaginal surgery Family History (Updated 12/01/22 @ 06:50 by Manju Sanderson, CARMITA) Rheumatoid aortitis Mother Heart attack Family/Other Social History (Updated 12/01/22 @ 06:52 by Majnu Sanderson, CARMITA) Smoking Status: Never smoker alcohol intake: never substance use type: denies use current occupational status: retired Travel in the last 8 weeks: None housing: house current occupational exposures/hazards: No caffeine: Yes
== END ==
PROVIDERS: PCP Nurse Practitioner Family; Visit Provider Anesthesiology
DX: M51.16 Intervertebral disc disorders with radiculopathy, lumbar region (principal); Z53.8 Procedure and treatment not carried out for other reasons; W19.XXXA Unspecified fall, initial encounter; R07.89 Other chest pain; M25.519 Pain in unspecified shoulder

== ENCOUNTER 2022-12-01 08:12 | Emergency (ER) | payer MEDICARE, SELFPAY ==
[2022-12-01] VITALS (8 sets, daily range): BP systolic 109–132; BP diastolic 42–54; PULSE 66–73; RESP 18–20; TEMP 36.7; O2SAT 94–97; BMI 34.1
--- NOTE | 2022-12-01 08:57 | PC.NURSE ---
DR EARL AT BEDSIDE
--- NOTE | 2022-12-01 08:58 | PC.NURSE ---
DIETARY NOTIFIED OF REGULAR BREAKFAST TRAY REQUEST
--- NOTE | 2022-12-01 08:59 | CT_ITS ---
FINAL REPORT TECHNIQUE: Axial images were obtained from the lung apex to the mid abdomen by computed tomography. Coronal reformatted images were obtained. This study was performed with techniques to keep radiation doses as low as reasonably achievable, (ALARA). Individualized dose reduction techniques using automated exposure control or adjustment of mA and/or kV according to the patient''s size were employed. CLINICAL HISTORY: right posterior thoracic cage pain/bruising COMPARISON: April 05, 2021 CT FINDINGS: Moderate coronary artery calcium patient's are seen. There is no evidence of mediastinal or hilar mass. The lung window images, multiple calcified pulmonary granulomas are seen. Multiple noncalcified pulmonary nodules are seen in both lungs. These have not significantly changed since the prior exam. There is no evidence of pneumothorax. There are several chronic right posterior rib fractures. No acute, displaced rib fracture is identified. Limited images of the upper abdomen are unremarkable. IMPRESSION: No evidence of acute injury. Stable multiple noncalcified pulmonary nodules which are favored to be benign. Authenticated and ERN
--- NOTE | 2022-12-01 08:59 | XR_ITS ---
FINAL REPORT CLINICAL HISTORY: fall, R thoracic cage pain FINDINGS: A single view of the chest was obtained. The heart is normal in size. The mediastinum is unremarkable. There is mild bibasilar opacity favored to represent atelectasis. There is no pleural effusion. There is no pneumothorax. Moderate degenerative changes are seen in the thoracic spine. IMPRESSION: Mild bibasilar opacity favored to represent atelectasis. No pneumothorax. Reviewed, Interpreted and Dictated by Vijay Fox III, MD Transcribed by Camelia Acosta Authenticated and . [facility]
--- NOTE | 2022-12-01 09:02 | HMH.EDGENADL ---
Discharge Plan Disposition Patient Disposition: Home, Self-Care Condition: Good Prescriptions Prescriptions: No Action metoprolol succinate 50 mg capsule,sprinkle,ER 24hr 50 mg PO DAILY potassium chloride [Klor-Con M20] 20 mEq tablet,ER particles/crystals 20 meq PO DAILY tramadol 50 mg tablet 50 mg PO QID PRN (Reason: Pain) sennosides [senna] 8.6 mg tablet 8.6 mg PO BID PRN (Reason: Constipation) albuterol sulfate 90 mcg/actuation HFA aerosol inhaler 1 inh inhalation QID PRN (Reason: shortness of breath or wheezing) Qty: 6.7 2RF lisinopril-hydrochlorothiazide 1 EACH tablet 1 tab PO DAILY atorvastatin 20 mg tablet 20 mg PO HS fluticasone propionate 16 GM spray,suspension 1 spray intranasal DAILY Rx Instructions: administer into each nostril linaclotide 290 MCG capsule 290 mcg PO DAILY Label Comments: clonazepam 0.5 mg tablet 0.5 mg PO BID PRN (Reason: Anxiety) Label Comments: azelastine 205.5 MCG/0.137 ML spray,non-aerosol 1 spray intranasal HS Rx Instructions: administer into each nostril budesonide-formoterol [Symbicort] 160-4.5 mcg/actuation HFA aerosol inhaler 1 puff IH BID budesonide-formoterol [Symbicort] 160-4.5 mcg/actuation HFA aerosol inhaler 2 puff INHALATION BID Label Comments: INHALE 1 PUFF BY MOUTH TWICE DAILY Referrals Follow up/Referrals: Kathleen Sanderson APRN [Primary Care Provider] - See instructions Activity Restrictions/Add. Instructions Additional Instructions/Restrictions: At this time it was felt you are safe to be discharged home. If new or worsening symptoms please do not hesitate to return to the emergency department. Clinical Impressions Clinical Impression: Blunt trauma, Bruising Discharge ED Provider: Nena Ramey Adult HPI General Chief complaint: Fall Stated complaint: AO4/28@home, pain in back, dizzy Time Seen by Provider: 12/01/22 09:00 Mode of Arrival: Wheelchair Source of Information: Patient Limitations: No Limitations Description of Symptoms (Recalled from ER Triage Doc. by RN): Patient presents from outpatient area as she was scheduled for a procedure this morning, implant of back stimulator. However, upon arrival, patient reported a mechanical fall yesterday from standing causing her to hit her back on the coffee table. Neg. head trauma. Neg LOC. Neg blood thinners. +back pain. 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 History of Present Illness HPI narrative: Patient is a 77-year-old female with multiple comorbidities not on blood thinners who presents to the emergency department for evaluation of traumatic injury sustained in a ground-level fall. Patient reportedly slipped and fell onto her right posterior shoulder yesterday and presented to have outpatient surgery today for spinal stimulator for chronic back pain when it was discovered that she had ecchymosis over her right inferior shoulder and the recommended she present here for continued evaluation. Pain is moderate in intensity, worse with palpation. Patient denies other traumatic injuries or loss of consciousness. Related Data Home Medications Medication Instructions Recorded Confirmed linaclotide 290 mcg capsule 290 mcg PO DAILY CONSTI 10/15/17 12/01/22 lisinopril 20 1 tab PO DAILY BLOOD PRESSURE 03/15/18 12/01/22 mg-hydrochlorothiazide 12.5 mg tablet metoprolol succinate 50 mg capsule 50 mg PO DAILY HTN 10/24/18 12/01/22 sprinkle, ext. release 24 hr potassium chloride 20 mEq 20 meq PO DAILY Supplement 10/24/18 12/01/22 tablet,extended release(part/cryst) (Klor-Con M) clonazepam 0.5 mg tablet 0.5 mg PO BID PRN Anxiety 02/26/19 12/01/22 sennosides 8.6 mg tablet (senna) 8.6 mg PO BID PRN Constipation 02/26/19 12/01/22 tramadol 50 mg tablet 50 mg PO QID PRN Pain 02/26/19 12/01/22 atorvastatin 20 mg tablet 20 mg PO HS Cholesterol 03/18/20 12/01/22 azelastine
--- NOTE | 2022-12-01 09:10 | ECG_ITS ---
APPROVED REPORT Exam: Resting ECG HR:64 bpm ECG Measurements Heart Rate 64 AXES OH 137 P 66 QRSd 85 QRS 29 QT 402 T 63 QTc 412 Conclusion SINUS RHYTHM NORMAL ECG UNCONFIRMED REPORT Electronically signed by : Khadar Quintana MD 12/01/2022 14:25:10
--- NOTE | 2022-12-01 09:28 | PC.NURSE ---
rounded on pt still eating breakfast tray no complaints,call light @ bs
--- NOTE | 2022-12-01 09:33 | PC.NURSE ---
PT TOLERATING REGULAR DIET, AT BEDSIDE
--- NOTE | 2022-12-01 10:10 | PC.NURSE ---
PT TO CT
[2022-12-01 10:20] LABS: Basophils % 0.5 % (0.1-2.0); Eosinophils # 0.3 K/mm3 (0.0-0.4); Eosinophils % 3.5 % (0.1-12.0); Hematocrit 45.9 % (37.0-47.0); Hemoglobin 14.9 g/dL (12.2-16.2); Lymphocytes # 1.9 K/mm3 (0.7-4.5); Lymphocytes % 21.7 % (10-50); Mean Corpuscular HGB Conc 32.4 g/dL (31.8-35.4); Mean Corpuscular Volume 98.8 fl (81-99); Mean Platelet Volume 8.8 fl (7.4-10.4); Monocytes # 0.3 K/mm3 (0.1-1.0); Monocytes % 3.4 % (1.7-9.3); Neutrophils # 6.3 K/mm3 (1.8-7.8); Neutrophils % 70.9 % (37.0-80.0); Platelet Count 186 K/mm3 (142-424); Red Blood Count 4.65 M/mm3 (4.20-5.40); Red Cell Distribution Width 13.7 % (11.5-17.5); White Blood Count 8.8 K/mm3 (4.8-10.8)
[2022-12-01 10:30] LABS: Chloride 103 mmol/L (98-107); Potassium 3.7 mmoL/L (3.5-5.1); Sodium 140 mmol/L (136-145)
[2022-12-01 10:33] LABS: Alanine Aminotransferase 28 U/L (12-78); Albumin Level 3.9 g/dl (3.5-5.0); Albumin/Globulin Ratio 1.3 (1.1-1.8); Alkaline Phosphatase 88 U/L (38-126); Anion Gap 10.7 mEq/L (5-15); Aspartate Amino Transferase 38 U/L (14-36); Bilirubin,Total 0.7 mg/dl (0.2-1.3); Blood Urea Nitrogen 14 mg/dl (7-17); Carbon Dioxide 30 mmol/L (22.0-30.0); Creatinine Clearance Estimated 62 mL/min (50-200); Estimated Glomerular Filt Rate 81 ml/min (>60); GFR (African American) 98 ML/MIN (>60); Globulin 2.9 g/dL (1.3-3.2); Glucose 137 mg/dl (74-100); Total Protein,Serum 6.8 g/dl (6.3-8.2)
--- NOTE | 2022-12-01 10:42 | PC.NURSE ---
DR EARL AT BEDSIDE TO UPDATE PT AND SPOUSE
== END 2022-12-01 11:00 | disposition home or self-care (01) ==
PROVIDERS: Emergency Medicine; Emergency Provider Emergency Medicine; PCP Nurse Practitioner Family
DX: S40.011A Contusion of right shoulder, initial encounter (principal); M54.9 Dorsalgia, unspecified; R42 Dizziness and giddiness; W18.30XA Fall on same level, unspecified, initial encounter
CPT/HCPCS: 71045; 71250; 80053; 85025; 93005; 96374; 99285

== ENCOUNTER → 2022-12-14 17:51 | Outpatient (CLI) | payer MEDICARE, SELFPAY ==
[2022-12-14 18:30] LABS: Basophils # 0.1 K/mm3 (0-0.2); Basophils % 0.7 % (0.1-2.0); Eosinophils # 0.3 K/mm3 (0.0-0.4); Eosinophils % 4.4 % (0.1-12.0); Hematocrit 43.6 % (37.0-47.0); Hemoglobin 14.3 g/dL (12.2-16.2); Lymphocytes # 1.7 K/mm3 (0.7-4.5); Lymphocytes % 22.7 % (10-50); Mean Corpuscular HGB Conc 32.9 g/dL (31.8-35.4); Mean Corpuscular Hemoglobin 31.3 pg (27.0-31.2); Mean Corpuscular Volume 95.3 fl (81-99); Mean Platelet Volume 8.7 fl (7.4-10.4); Monocytes # 0.4 K/mm3 (0.1-1.0); Monocytes % 5.1 % (1.7-9.3); Neutrophils # 5.1 K/mm3 (1.8-7.8); Platelet Count 218 K/mm3 (142-424); Red Blood Count 4.58 M/mm3 (4.20-5.40); Red Cell Distribution Width 13.9 % (11.5-17.5); White Blood Count 7.6 K/mm3 (4.8-10.8)
[2022-12-14 18:40] LABS: Hemoglobin A1C 5.9 % (4.0-6.0)
[2022-12-14 18:43] LABS: Alanine Aminotransferase 25 U/L (12-78); Albumin Level 4.2 g/dl (3.5-5.0); Albumin/Globulin Ratio 1.4 (1.1-1.8); Alkaline Phosphatase 103 U/L (38-126); Anion Gap 16.8 mEq/L (5-15); Aspartate Amino Transferase 34 U/L (14-36); Bilirubin,Total 0.6 mg/dl (0.2-1.3); Blood Urea Nitrogen 16 mg/dl (7-17); Carbon Dioxide 28 mmol/L (22.0-30.0); Chloride 97 mmol/L (98-107); Estimated Glomerular Filt Rate 61 ml/min (>60); GFR (African American) 74 ML/MIN (>60); Globulin 3.1 g/dL (1.3-3.2); Glucose 91 mg/dl (74-100); Potassium 3.8 mmoL/L (3.5-5.1); Sodium 138 mmol/L (136-145); Total Protein,Serum 7.3 g/dl (6.3-8.2)
[2022-12-14 19:00] LABS: Free Thyroxine Index 3.2 ug/dL (5.93-13.13); T4 (Thyroxine) 10.7 ug/dl (5.53-11.0); Triiodothryronine (T3) Uptake 30 % (23.5-40.5)
[2022-12-14 19:02] LABS: 25-OH Vitamin D, Total 23.5 ng/mL (30-100)
[2022-12-14 19:14] LABS: Thyroid Stimulating Hormone 1.47 uIU/mL (0.465-4.68)
[2022-12-14 19:31] LABS: Vitamin B12 > 1000 pg/mL (239-931)
== END ==
PROVIDERS: PCP Nurse Practitioner Family; Visit Provider Nurse Practitioner Family
DX: R42 Dizziness and giddiness (principal); R29.818 Other symptoms and signs involving the nervous system; I10 Essential (primary) hypertension; E55.9 Vitamin D deficiency, unspecified; R53.81 Other malaise; Z86.39 Personal history of other endocrine, nutritional and metabolic disease
CPT/HCPCS: 36415; 80053; 82306; 82607; 83036; 84436; 84443; 84479; 85025

== ENCOUNTER → 2022-12-27 13:10 | Outpatient (POV) | payer MEDICARE, SELFPAY ==
--- NOTE | 2022-12-27 14:06 | EXP.PAIN.SOA ---
[facility] Pain Management SOAP Note Subjective:: Patient is a pleasant 77-year-old female who presents today for follow-up. We are currently treating the patient for degenerative disc disease of lumbar spine with lumbar radiculopathy symptoms, lumbar facet arthropathy, lumbar spondylosis, postlaminectomy syndrome, spinal stenosis with neurogenic claudication, left-sided sacroiliitis.? Today she rates her pain a 8 out of 10.? Patient denies any new trauma or injury.? She denies any change to location or type of pain she is experiencing.she does state her pain is all in her low back with radiating symptoms into her hips and down her legs. She describes it as a burning, tingling sensation that is worse with increased activity.? It does interfere with her ability to perform activities of daily living such as cooking and cleaning.? Patient cannot tolerate prolonged sitting, standing, walking due to the pain.? Patient was scheduled for a spinal cord stimulator trial however at her last visit she decided that she was not going to proceed forward with this plan of care. She is scheduled to see a vascular doctor next week for her increased swelling and pain in her lower extremities. P she is currently managed with clonazepam 1 mg twice a day and tramadol 50 mg 3 times a day from her primary care doctor's office.? Patient denies any side effects from these medications.? She has tried compounding cream in the past. Her Agustin is [id number].? Its been reviewed and appropriate. Review of Systems: General: No recent weight changes, no fever, no sleep disturbances Respiratory: No cough, no shortness of air, no recurring pulmonary infections Cardiovascular/peripheral vascular: No chest pain, no palpitations,? no edema, no shortness of breath Gastrointestinal: No new onset incontinence, normal bowel movements reported Genitourinary: No new onset incontinence Musculoskeletal: Low back pain, bilateral lower extremity pain Psychiatric: [Normal mood/affect] Neurological: [Denies weakness in extremities], [denies balance issues] Objective:: Physical Exam: General: Alert and oriented x3, no acute distress, pleasant and cooperative Lungs: Respirations even and unlabored, symmetrical chest expansion Eyes: PERRL Musculoskeletal: Flexion and extension of lumbar [spine] somewhat guarded secondary to pain, [antalgic gait noted] extreme point tenderness along lower lumbar spine Neurological: Speech clear, no gross sensory deficit Assessment:: Degenerative disc disease of lumbar spine with lumbar radiculopathy symptoms, lumbar facet arthropathy, lumbar spondylosis, postlaminectomy syndrome, spinal stenosis with neurogenic claudication, left-sided sacroiliitis Plan:: Patient is experiencing significant pain in her low back with radiating symptoms into her lower extremities. I have discussed with the patient that she may benefit from a lumbar epidural steroid injection. Risk and benefits were discussed with the patient and she would like to proceed forward with this plan of care. Patient is not on any blood thinners. I have also counseled the patient that she may benefit from a left intra-articular hip injection in the future. We will discuss this at a later date. Patient is also experiencing worsening neuropathy symptoms into her lower extremities. I will send in a prescription of pregabalin 50 mg at bedtime and provide a 1 month supply of this medication. Patient will be scheduled for an LESI L4-L5. Patient has been instructed to contact the clinic with any concerns before the next appointment. Dr. Xie has reviewed this note and agrees with this plan of care. This note was dictated using voice recognition software and make contain errors or omissions. [facility] Disclaimer: The information contained in this section may have been updated after the patient was seen, as this information can be updated by other users. Medical History (Updated 12/01/22 @ 10:47 by Diego Fernandes MD) Anxiety
[2022-12-27 14:39] VITALS: BP 154/58; PULSE 67; RESP 18; O2SAT 97; BMI 32.8
== END | disposition home or self-care (01) ==
PROVIDERS: PCP Nurse Practitioner Family; Visit Provider Nurse Practitioner Family
DX: M51.16 Intervertebral disc disorders with radiculopathy, lumbar region (principal); M47.26 Other spondylosis with radiculopathy, lumbar region; M96.1 Postlaminectomy syndrome, not elsewhere classified; M48.062 Spinal stenosis, lumbar region with neurogenic claudication
CPT/HCPCS: 99212; G0463

== ENCOUNTER 2023-01-09 12:50 | Day surgery (SDC) | payer MEDICARE, SELFPAY ==
[2023-01-09 13:01] VITALS: BP 140/75; PULSE 66; RESP 18; TEMP 36.7; O2SAT 97; BMI 35.5
[2023-01-09 13:15] VITALS: BP 153/56; PULSE 68; RESP 18; O2SAT 97
[2023-01-09 13:16] VITALS: BP 153/56; PULSE 68; RESP 18; O2SAT 97
[2023-01-09 13:21] VITALS: BP 150/67; PULSE 63; RESP 18; O2SAT 97
--- NOTE | 2023-01-09 13:22 | EXP.PAIN.PRO ---
Procedure Date: 01/09/23 Time: 13:10 Anesthesiologist:: Alcon Riddle CRNA Complications:: None Pre-procedure Diagnosis:: Degenerative disc lumbar spine multilevels. Lumbar radiculopathy. Lumbar postlaminectomy syndrome. Lumbar multilevel facet arthropathy. Lumbar spondylosis Post-procedure Diagnosis:: Same. Indications for Procedure:: Patient is a pleasant 77-year-old female that comes our clinic today for lumbar epidural steroid injection. Patient has had this injection in the past with some moderate to significant improvement terms of her overall low back pain as well as bilateral hip and leg radicular symptoms. Today, she rates her pain 7/10. Her main complaint is low back pain as well as bilateral hip and leg radicular symptoms to the knees. Procedure Details:: Procedure: Lumbar epidural steroid injection under fluoroscopy Informed consent was obtained and the risks and benefits of the procedure were explained to the patient. The patient was taken to the procedure room and noninvasive monitors placed, including noninvasive blood pressure cuff and pulse oximeter. The back was viewed using C-arm Fluoroscopy and prepped using Chloraprep as a cleansing solution and the L4-L5 interspace was palpated. Skin and subcutaneous tissues were anesthetized using lidocaine 1.5% and a 25-gauge needle. After this, an 18-gauge Touhy epidural needle was placed into the L4-L5 interspace and advanced using fluoroscopic guidance and loss of resistance to air until the epidural space was encountered. After confirmation of needle placement in the epidural space, with dye, a solution containing normal saline, 3 mL and Depo-Medrol 80 mg were incrementally injected into the lumbar epidural space. The patient tolerated the procedure well with no complications. The patient was observed in the Pain Clinic and then discharged home neurologically intact. Plan and Disposition:: Patient was discharged without incident.
== END 2023-01-09 13:21 | disposition home or self-care (01) ==
PROVIDERS: PCP Nurse Practitioner Family; Visit Provider Nurse Anesthetist, Certified Registered
DX: M51.16 Intervertebral disc disorders with radiculopathy, lumbar region (principal); M47.26 Other spondylosis with radiculopathy, lumbar region; M96.1 Postlaminectomy syndrome, not elsewhere classified
CPT/HCPCS: 62323; J1040

== ENCOUNTER → 2023-02-07 13:24 | Outpatient (CLI) | payer MEDICARE, SELFPAY ==
--- NOTE | 2023-02-07 13:28 | XR_ITS ---
FINAL REPORT CLINICAL HISTORY: SOB, COUGH, WHEEZING FINDINGS: TWO-VIEW CHEST The heart size is normal. The mediastinum is normal. The lungs are hyperinflated consistent with COPD. There is mild scarring. There is a 4 mm right upper lobe nodule which is nonspecific, may represent a granuloma. There are multiple granulomas in the left lung. There is no pneumothorax. IMPRESSION: Nonspecific right upper lobe nodule, may represent granuloma. Recommend chest radiographs in 6 months. Reviewed, Interpreted and Dictated by Vijay Fox III, MD Transcribed by Melinda Ibrahim Authenticated and [facility]
== END ==
PROVIDERS: PCP Nurse Practitioner Family; Visit Provider Internal Medicine Pulmonary Disease
DX: R06.02 Shortness of breath (principal)
CPT/HCPCS: 71046

== ENCOUNTER 2023-02-08 10:12 | Emergency (ER) | payer MEDICARE, SELFPAY ==
[2023-02-08 10:13] VITALS: BP 150/81; PULSE 76; RESP 22; TEMP 36.7; O2SAT 95; BMI 34.7
--- NOTE | 2023-02-08 10:36 | ECG_ITS ---
APPROVED REPORT Exam: Resting ECG HR:76 bpm ECG Measurements Heart Rate 76 AXES FL 125 P 47 QRSd 86 QRS 1 QT 381 T 70 QTc 411 Conclusion SINUS RHYTHM LOW QRS VOLTAGE IN PRECORDIAL LEADS [QRS DEFLECTION < 1.0 mV IN CHEST LEADS] MODERATE ST DEPRESSION [0.05+ mV ST DEPRESSION] ABNORMAL ECG UNCONFIRMED REPORT Electronically signed by : Khadar Quintana MD 02/08/2023 21:13:24
--- NOTE | 2023-02-08 11:02 | HMH.EDGENADL ---
Discharge Plan Disposition Chief Complaint: Shortness of Breath/Dyspnea Prescriptions Prescriptions: No Action metoprolol succinate 50 mg capsule,sprinkle,ER 24hr 50 mg PO DAILY potassium chloride [Klor-Con M20] 20 mEq tablet,ER particles/crystals 20 meq PO DAILY tramadol 50 mg tablet 50 mg PO QID PRN (Reason: Pain) sennosides [senna] 8.6 mg tablet 8.6 mg PO BID PRN (Reason: Constipation) albuterol sulfate 90 mcg/actuation HFA aerosol inhaler 1 inh inhalation QID PRN (Reason: shortness of breath or wheezing) Qty: 6.7 2RF doxycycline hyclate 100 mg capsule 100 mg PO BID 5 Days Qty: 10 0RF prednisone 20 mg tablet 40 mg PO DAILY 5 Days Qty: 10 0RF budesonide-formoterol [Symbicort] 160-4.5 mcg/actuation HFA aerosol inhaler 2 puff inhalation BID 90 Days Qty: 10.2 2RF albuterol sulfate 90 mcg/actuation HFA aerosol inhaler 2 inh inhalation Q6H PRN (Reason: shortness of breath or wheezing) 90 Days Qty: 8.5 2RF ipratropium-albuterol 0.5 mg-3 mg(2.5 mg base)/3 mL solution for nebulization 3 ml inhalation Q6H PRN (Reason: shortness of breath or wheezing) Qty: 180 3RF azelastine 137 mcg (0.1 %) aerosol,spray 2 spray intranasal HS 90 Days Qty: 30 2RF Rx Instructions: administer into each nostril fluticasone propionate [Flonase Allergy Relief] 50 mcg/actuation spray,suspension 2 spray intranasal DAILY 90 Days Qty: 16 2RF Rx Instructions: administer into each nostril benzonatate 100 mg capsule 100 mg PO BID PRN (Reason: cough) Qty: 30 0RF lisinopril-hydrochlorothiazide 1 EACH tablet 1 tab PO DAILY atorvastatin 20 mg tablet 20 mg PO HS clonazepam 0.5 mg tablet 0.5 mg PO BID PRN (Reason: Anxiety) Patient Comments: Referrals Follow up/Referrals: Kathleen Sanderson APRN [Primary Care Provider] - See instructions Activity Restrictions/Add. Instructions Additional Instructions/Restrictions: You are given dexamethasone today in the emergency department therefore do not take your prednisone again until Sunday if you need it. The albuterol inhaler you were given please take 4 puffs every 4 hours while awake for the next 2 days and then as needed after that. Please continue the other medications that Dr. Keller gave you specifically the doxycycline. Please return to the emergency department any worsening symptoms at which point we will just admit you to the hospital. Clinical Impressions Clinical Impression: Asthma exacerbation Discharge ED Provider: Macho Farrell General Adult HPI General Chief complaint: Shortness of Breath/Dyspnea Stated complaint: High heart rate, sweating Time Seen by Provider: 02/08/23 11:02 Mode of Arrival: Ambulatory Source of Information: Patient Limitations: No Limitations Description of Symptoms (Recalled from ER Triage Doc. by RN): Patient reports a fast heartrate, wheezing and right eye burning. Patient presents sweating and wheezing. States she saw Dr. Valdez yesterday and was prescribed new medication and after taking that medication this morning her heart began to race. States she called Dr. Valdez's office and they requested her to go the emergency room. Patient currently refusing to go to the er. History of Present Illness HPI narrative: Patient is a 77-year-old female presenting today with wheezing. She is accompanied by her who is also the historian. She states that over the weekend she started having a headache and a runny nose and started developing some wheezing and saw Dr. Zhou yesterday. She had a chest x-ray yesterday did not show any acute abnormalities. She was prescribed prednisone doxycycline will take his own and Symbicort. She has taken her medications today but she is concerned about taking those as she read about the side effects. She states that she has had some ongoing wheezing and that her noted that she had increased work of breathing this morning and that her
[2023-02-08 11:05] VITALS: BP 163/64; PULSE 77; RESP 16; TEMP 36.7; O2SAT 93; BMI 33.6
--- NOTE | 2023-02-08 11:07 | PC.NURSE ---
MEGHANA GALARZA at
[2023-02-08 11:45] VITALS: PULSE 72; PULSE 74
--- NOTE | 2023-02-08 11:48 | PC.NURSE ---
rounded on patient, assisted her to chair next to the bed, call light within reach. Spouse at bedside
[2023-02-08 13:20] VITALS: BP 151/73; PULSE 79; RESP 18; TEMP 36.7; O2SAT 92
== END 2023-02-08 13:25 | disposition home or self-care (01) ==
LOC: UTC 10:15 → ER 10:44
PROVIDERS: Emergency Provider Student in an Organized Health Care Education/Training Program; PCP Nurse Practitioner Family
DX: J45.901 Unspecified asthma with (acute) exacerbation (principal); R51.9 Headache, unspecified; F41.9 Anxiety disorder, unspecified; I10 Essential (primary) hypertension; M19.90 Unspecified osteoarthritis, unspecified site; G47.30 Sleep apnea, unspecified
CPT/HCPCS: 93005; 96361; 96374; 99284; 99285; J3475

== ENCOUNTER 2023-03-19 13:40 | Emergency (ER) | payer MEDICARE, SELFPAY ==
--- NOTE | 2023-03-19 13:45 | XR_ITS ---
FINAL REPORT CLINICAL HISTORY: fall COMPARISON: 08/21/2022 FINDINGS: RIGHT FOOT 3 views of the right foot were obtained. There is no acute fracture or dislocation. There are mild degenerative changes. Small calcaneal spurs are noted. Visualized joint spaces are normally aligned. Soft tissues are unremarkable. IMPRESSION: No acute bony abnormality. Reviewed, Interpreted and Dictated by Vijay Fox III, MD Transcribed by Enedina Abarca Authenticated and [facility]
[2023-03-19 14:10] VITALS: BP 151/82; PULSE 82; RESP 18; TEMP 36.6; O2SAT 97; BMI 34.4
--- NOTE | 2023-03-19 14:25 | EXP.UTC ---
Discharge Plan Disposition Patient Disposition: Home, Self-Care Condition: Good Prescriptions Prescriptions: No Action metoprolol succinate 50 mg capsule,sprinkle,ER 24hr 50 mg PO DAILY potassium chloride [Klor-Con M20] 20 mEq tablet,ER particles/crystals 20 meq PO DAILY tramadol 50 mg tablet 50 mg PO QID PRN (Reason: Pain) sennosides [senna] 8.6 mg tablet 8.6 mg PO BID PRN (Reason: Constipation) albuterol sulfate 90 mcg/actuation HFA aerosol inhaler 1 inh inhalation QID PRN (Reason: shortness of breath or wheezing) Qty: 6.7 2RF doxycycline hyclate 100 mg capsule 100 mg PO BID 5 Days Qty: 10 0RF prednisone 20 mg tablet 40 mg PO DAILY 5 Days Qty: 10 0RF budesonide-formoterol [Symbicort] 160-4.5 mcg/actuation HFA aerosol inhaler 2 puff inhalation BID 90 Days Qty: 10.2 2RF albuterol sulfate 90 mcg/actuation HFA aerosol inhaler 2 inh inhalation Q6H PRN (Reason: shortness of breath or wheezing) 90 Days Qty: 8.5 2RF ipratropium-albuterol 0.5 mg-3 mg(2.5 mg base)/3 mL solution for nebulization 3 ml inhalation Q6H PRN (Reason: shortness of breath or wheezing) Qty: 180 3RF azelastine 137 mcg (0.1 %) aerosol,spray 2 spray intranasal HS 90 Days Qty: 30 2RF Rx Instructions: administer into each nostril fluticasone propionate [Flonase Allergy Relief] 50 mcg/actuation spray,suspension 2 spray intranasal DAILY 90 Days Qty: 16 2RF Rx Instructions: administer into each nostril benzonatate 100 mg capsule 100 mg PO BID PRN (Reason: cough) Qty: 30 0RF lisinopril-hydrochlorothiazide 1 EACH tablet 1 tab PO DAILY atorvastatin 20 mg tablet 20 mg PO HS clonazepam 0.5 mg tablet 0.5 mg PO BID PRN (Reason: Anxiety) Patient Comments: Referrals Follow up/Referrals: Kathleen Sanderson APRN [Primary Care Provider] - See instructions Activity Restrictions/Add. Instructions Additional Instructions/Restrictions: *weight bearing as tolerated Use walker to get around *RICE, Rest the extremity, Ice 15-20 minutes 3-4 times daily, Compress- wear the evan wrap as discussed as much as possible to help reduce swelling and pain, Elevate the extremity when at rest *Evan wrap is for support and help control swelling, use it except in the shower. Be sure that is not to tight but not to loose either *Elevate when resting? *Ibuprofen as directed on package every 6-8 hours as needed for pain an inflammation if you can take it. If need something more can take Tylenol in between doses of Ibuprofen to help Immediately follow up with your family doctor for new or worsening of symptoms, or no noticeable improvement over the next 3-5 days Clinical Impressions Clinical Impression: Contusion of foot Qualifiers: Encounter type: initial encounter Laterality: right Qualified Code(s): S90.31XA - Contusion of right foot, initial encounter Instructions Patient Instructions: How To Perform RICE (Rest, Ice, Compress, Elevate), How to Apply an Evan Wrap, DI for Foot Sprain Discharge ED Provider: Alice Baum [facility] HPI General Stated complaint: AO 03/18, right foot pain Mode of Arrival: Ambulatory Source of Information: Patient Limitations: No Limitations Time Seen by Provider: 03/19/23 14:25 Description of Symptoms (Recalled from Triage Doc. by RN): PATIENT C/O RIGHT FOOT PAIN AFTER FALLING YESTERDAY HEENT Symptoms (Recalled from RN notes): No Resp Symptoms (Recalled from RN notes): No Skin Symptoms (Recalled from RN notes): No MS Symptoms (Recalled from RN notes): Yes Functional Status (Recalled from RN notes): WNL History of Present Illness Provider Complaint: Patient states that she was walking in her driveway yesterday when she went to step up onto the part of driveway by her vehicle and her foot got caught on the elevation of the pavement and she fell States that she landed on her knees but her right foot went under her States that she has some ab
[2023-03-19 16:10] VITALS: BP 151/82; PULSE 82; RESP 18; TEMP 36.6; O2SAT 97
== END 2023-03-19 16:11 | disposition home or self-care (01) ==
PROVIDERS: Emergency Provider Nurse Practitioner; PCP Nurse Practitioner Family
DX: S90.31XA Contusion of right foot, initial encounter (principal); I10 Essential (primary) hypertension; J45.909 Unspecified asthma, uncomplicated; R91.8 Other nonspecific abnormal finding of lung field; G47.30 Sleep apnea, unspecified; F41.9 Anxiety disorder, unspecified; W01.198A Fall on same level from slipping, tripping and stumbling with subsequent striking against other object, initial encounter
CPT/HCPCS: 73630; 96372; 99212; 99214; G0463

== ENCOUNTER 2023-03-24 15:36 | Emergency (ER) | payer MEDICARE, SELFPAY ==
[2023-03-24 15:43] VITALS: BP 152/72; PULSE 63; O2SAT 97
[2023-03-24 15:52] VITALS: BP 152/72; PULSE 66; RESP 20; TEMP 36.8; O2SAT 95; BMI 34.4
[2023-03-24 16:00] VITALS: BP 157/66; PULSE 64; O2SAT 96
--- NOTE | 2023-03-24 16:10 | PC.NURSE ---
confirmed with Abdi that iodine allergy is ok to take bactrim DSJody GALARZA aware
--- NOTE | 2023-03-24 16:12 | HMH.EDGENADL ---
Discharge Plan Disposition Patient Disposition: Home, Self-Care Condition: Good Prescriptions Prescriptions: New sulfamethoxazole-trimethoprim [Bactrim DS] 800-160 mg tablet 1 tab PO DAILY 10 Days Qty: 10 0RF No Action metoprolol succinate 50 mg capsule,sprinkle,ER 24hr 50 mg PO DAILY potassium chloride [Klor-Con M20] 20 mEq tablet,ER particles/crystals 20 meq PO DAILY tramadol 50 mg tablet 50 mg PO QID PRN (Reason: Pain) sennosides [senna] 8.6 mg tablet 8.6 mg PO BID PRN (Reason: Constipation) albuterol sulfate 90 mcg/actuation HFA aerosol inhaler 1 inh inhalation QID PRN (Reason: shortness of breath or wheezing) Qty: 6.7 2RF doxycycline hyclate 100 mg capsule 100 mg PO BID 5 Days Qty: 10 0RF prednisone 20 mg tablet 40 mg PO DAILY 5 Days Qty: 10 0RF budesonide-formoterol [Symbicort] 160-4.5 mcg/actuation HFA aerosol inhaler 2 puff inhalation BID 90 Days Qty: 10.2 2RF albuterol sulfate 90 mcg/actuation HFA aerosol inhaler 2 inh inhalation Q6H PRN (Reason: shortness of breath or wheezing) 90 Days Qty: 8.5 2RF ipratropium-albuterol 0.5 mg-3 mg(2.5 mg base)/3 mL solution for nebulization 3 ml inhalation Q6H PRN (Reason: shortness of breath or wheezing) Qty: 180 3RF azelastine 137 mcg (0.1 %) aerosol,spray 2 spray intranasal HS 90 Days Qty: 30 2RF Rx Instructions: administer into each nostril fluticasone propionate [Flonase Allergy Relief] 50 mcg/actuation spray,suspension 2 spray intranasal DAILY 90 Days Qty: 16 2RF Rx Instructions: administer into each nostril benzonatate 100 mg capsule 100 mg PO BID PRN (Reason: cough) Qty: 30 0RF lisinopril-hydrochlorothiazide 1 EACH tablet 1 tab PO DAILY atorvastatin 20 mg tablet 20 mg PO HS clonazepam 0.5 mg tablet 0.5 mg PO BID PRN (Reason: Anxiety) Patient Comments: Referrals Follow up/Referrals: Maria E,Kathleen L, [employer] [Primary Care Provider] - See instructions Activity Restrictions/Add. Instructions Additional Instructions/Restrictions: At this time it was felt you are safe to be discharged home. If new or worsening symptoms please not hesitate to return the emergency department. Please continue to follow-up on Sunday as discussed and take your medications as prescribed. Please apply bacitracin twice a day until follow-up Clinical Impressions Clinical Impression: Infected wound Instructions Patient Instructions: DI for Skin Abscess Discharge ED Provider: Diego Fernandes General Adult HPI General Chief complaint: Skin/Abscess/Foreign Body Stated complaint: LT knee pain, RT foot swollen Time Seen by Provider: 03/24/23 15:39 Mode of Arrival: Wheelchair Source of Information: Patient Limitations: No Limitations Description of Symptoms (Recalled from ER Triage Doc. by RN): pt to ed c/o left knee abrasion. pt states she fell in the driveway last sunday. History of Present Illness HPI narrative: Patient is a 78-year-old female with no pertinent past medical history presents emergency department for evaluation of skin wound. Patient reportedly had a fall onto her left knee and right ankle on Sunday. She presented to urgent care where foot x-ray showed no acute pathology and she was subsequently discharged home. Patient has had drainage from the wound, surrounding redness where she struck her left knee. Patient has been putting rubbing alcohol on the wound as well as soap and water. Patient has been able to bear weight on her left knee and has no pain. No other acute complaints at this time. Related Data Home Medications Medication Instructions Recorded Confirmed lisinopril 20 1 tab PO DAILY BLOOD PRESSURE 03/15/18 02/15/23 mg-hydrochlorothiazide 12.5 mg tablet metoprolol succinate 50 mg capsule 50 mg PO DAILY HTN 10/24/18 02/15/23 sprinkle, ext. release 24 hr potassium chloride 20 mEq 20 meq PO DAILY Supplement 10/24/18 02/15/23 table
[2023-03-24 16:36] VITALS: BP 157/66; PULSE 64; RESP 20; TEMP 36.8
== END 2023-03-24 16:36 | disposition home or self-care (01) ==
PROVIDERS: Emergency Provider Emergency Medicine; PCP Nurse Practitioner Family
DX: L08.9 Local infection of the skin and subcutaneous tissue, unspecified (principal); S80.212S Abrasion, left knee, sequela; W19.XXXS Unspecified fall, sequela; F41.9 Anxiety disorder, unspecified; J45.909 Unspecified asthma, uncomplicated; I10 Essential (primary) hypertension; G43.909 Migraine, unspecified, not intractable, without status migrainosus; G47.30 Sleep apnea, unspecified
CPT/HCPCS: 90715; 99283

== ENCOUNTER 2023-04-27 14:45 | Emergency (ER) | payer MEDICARE, SELFPAY ==
[2023-04-27 14:47] VITALS: BP 171/73; PULSE 74; RESP 14; TEMP 36.5; O2SAT 97; BMI 34.7
[2023-04-27 15:31] VITALS: BP 143/72; PULSE 68; O2SAT 95
--- NOTE | 2023-04-27 15:42 | PC.NURSE ---
Dr. Fernandes at [facility] for pt eval
--- NOTE | 2023-04-27 15:50 | HMH.EDGENADL ---
Discharge Plan Disposition Patient Disposition: Home, Self-Care Prescriptions Prescriptions: New prednisone 50 mg tablet 50 mg PO DAILY 3 Days Qty: 3 0RF No Action metoprolol succinate 50 mg capsule,sprinkle,ER 24hr 50 mg PO DAILY potassium chloride [Klor-Con M20] 20 mEq tablet,ER particles/crystals 20 meq PO DAILY tramadol 50 mg tablet 50 mg PO QID PRN (Reason: Pain) sennosides [senna] 8.6 mg tablet 8.6 mg PO BID PRN (Reason: Constipation) albuterol sulfate 90 mcg/actuation HFA aerosol inhaler 1 inh inhalation QID PRN (Reason: shortness of breath or wheezing) Qty: 6.7 2RF doxycycline hyclate 100 mg capsule 100 mg PO BID 5 Days Qty: 10 0RF prednisone 20 mg tablet 40 mg PO DAILY 5 Days Qty: 10 0RF budesonide-formoterol [Symbicort] 160-4.5 mcg/actuation HFA aerosol inhaler 2 puff inhalation BID 90 Days Qty: 10.2 2RF albuterol sulfate 90 mcg/actuation HFA aerosol inhaler 2 inh inhalation Q6H PRN (Reason: shortness of breath or wheezing) 90 Days Qty: 8.5 2RF ipratropium-albuterol 0.5 mg-3 mg(2.5 mg base)/3 mL solution for nebulization 3 ml inhalation Q6H PRN (Reason: shortness of breath or wheezing) Qty: 180 3RF azelastine 137 mcg (0.1 %) aerosol,spray 2 spray intranasal HS 90 Days Qty: 30 2RF Rx Instructions: administer into each nostril fluticasone propionate [Flonase Allergy Relief] 50 mcg/actuation spray,suspension 2 spray intranasal DAILY 90 Days Qty: 16 2RF Rx Instructions: administer into each nostril benzonatate 100 mg capsule 100 mg PO BID PRN (Reason: cough) Qty: 30 0RF lisinopril-hydrochlorothiazide 1 EACH tablet 1 tab PO DAILY atorvastatin 20 mg tablet 20 mg PO HS sulfamethoxazole-trimethoprim [Bactrim DS] 800-160 mg tablet 1 tab PO DAILY 10 Days Qty: 10 0RF clonazepam 0.5 mg tablet 0.5 mg PO BID PRN (Reason: Anxiety) Patient Comments: Referrals Follow up/Referrals: Khadar Quintana MD [Primary Care Provider] - See instructions Activity Restrictions/Add. Instructions Additional Instructions/Restrictions: At this time is felt you are safe to be discharged home. If new or worsening symptoms please do not hesitate to return the emergency department. Please follow-up Sunday as discussed. Please apply 0.5 cm strip of erythromycin in your eye 2-3 times a day for 5 days. Please take your steroids as prescribed. For itching please take 50 mg of oral Benadryl every 6 hours. Clinical Impressions Clinical Impression: Blepharitis Discharge ED Provider: Macho Farrell General Adult HPI General Chief complaint: Skin/Abscess/Foreign Body Stated complaint: swelling in left eye and spot on left arm Time Seen by Provider: 04/27/23 15:01 Mode of Arrival: Ambulatory Source of Information: Patient Limitations: No Limitations Description of Symptoms (Recalled from ER Triage Doc. by RN): c/o spots on bilateral arms that itch at times, lower eye lids swelling with some burning. PT states that a little red spot started on her left cheek and moved up to her eyebrow and now has went into her eye lids History of Present Illness HPI narrative: Patient is 78-year-old female with past medical history of cataract surgery who presents emergency department for evaluation of eyelid swelling. Patient states that over the last few days she has had bilateral upper and lower eyelid swelling which has been very itchy to her, she has been scratching her eyes and eyebrows frequently. Since then she has developed mild visual blurriness and is frequently scratching around her eyes. No headaches, no falls, no speech difficulty. Denies new medications, new soaps, new clothes. Related Data Home Medications Medication Instructions Recorded Confirmed lisinopril 20 1 tab PO DAILY BLOOD PRESSURE 03/15/18 02/15/23 mg-hydrochlorothiazide 12.5 mg tablet metoprolol succinate 50 mg capsule 50 mg PO DAILY HTN 10/24/18
[2023-04-27 16:17] VITALS: BP 140/72; PULSE 75; RESP 18; TEMP 36.9; O2SAT 97
[2023-04-27 16:24] VITALS: BP 155/74; PULSE 66; RESP 16; TEMP 36.9; O2SAT 94
== END 2023-04-27 16:24 | disposition home or self-care (01) ==
PROVIDERS: Emergency Provider Student in an Organized Health Care Education/Training Program; PCP Internal Medicine Adolescent Medicine
DX: H01.009 Unspecified blepharitis unspecified eye, unspecified eyelid (principal); I10 Essential (primary) hypertension; J45.909 Unspecified asthma, uncomplicated; M19.90 Unspecified osteoarthritis, unspecified site; G47.30 Sleep apnea, unspecified; F41.9 Anxiety disorder, unspecified
CPT/HCPCS: 99283

== ENCOUNTER 2023-05-21 14:12 | Emergency (ER) | payer MEDICARE, SELFPAY ==
--- NOTE | 2023-05-21 14:53 | EXP.UTC ---
Discharge Plan Disposition Patient Disposition: Home, Self-Care Condition: Good Prescriptions Prescriptions: New phenazopyridine [Pyridium] 200 mg tablet 200 mg PO Q8H 2 Days Qty: 6 0RF ciprofloxacin HCl [Cipro] 500 mg tablet 500 mg PO BID 7 Days Qty: 14 0RF ondansetron 4 mg Tablet,Disintegrating 4 mg PO Q8H PRN (Reason: Nausea) Qty: 12 0RF No Action metoprolol succinate 50 mg capsule,sprinkle,ER 24hr 50 mg PO DAILY potassium chloride [Klor-Con M20] 20 mEq tablet,ER particles/crystals 20 meq PO DAILY tramadol 50 mg tablet 50 mg PO QID PRN (Reason: Pain) sennosides [senna] 8.6 mg tablet 8.6 mg PO BID PRN (Reason: Constipation) albuterol sulfate 90 mcg/actuation HFA aerosol inhaler 1 inh inhalation QID PRN (Reason: shortness of breath or wheezing) Qty: 6.7 2RF doxycycline hyclate 100 mg capsule 100 mg PO BID 5 Days Qty: 10 0RF prednisone 20 mg tablet 40 mg PO DAILY 5 Days Qty: 10 0RF budesonide-formoterol [Symbicort] 160-4.5 mcg/actuation HFA aerosol inhaler 2 puff inhalation BID 90 Days Qty: 10.2 2RF albuterol sulfate 90 mcg/actuation HFA aerosol inhaler 2 inh inhalation Q6H PRN (Reason: shortness of breath or wheezing) 90 Days Qty: 8.5 2RF ipratropium-albuterol 0.5 mg-3 mg(2.5 mg base)/3 mL solution for nebulization 3 ml inhalation Q6H PRN (Reason: shortness of breath or wheezing) Qty: 180 3RF azelastine 137 mcg (0.1 %) aerosol,spray 2 spray intranasal HS 90 Days Qty: 30 2RF Rx Instructions: administer into each nostril fluticasone propionate [Flonase Allergy Relief] 50 mcg/actuation spray,suspension 2 spray intranasal DAILY 90 Days Qty: 16 2RF Rx Instructions: administer into each nostril benzonatate 100 mg capsule 100 mg PO BID PRN (Reason: cough) Qty: 30 0RF lisinopril-hydrochlorothiazide 1 EACH tablet 1 tab PO DAILY atorvastatin 20 mg tablet 20 mg PO HS sulfamethoxazole-trimethoprim [Bactrim DS] 800-160 mg tablet 1 tab PO DAILY 10 Days Qty: 10 0RF clonazepam 0.5 mg tablet 0.5 mg PO BID PRN (Reason: Anxiety) Patient Comments: prednisone 50 mg tablet 50 mg PO DAILY 3 Days Qty: 3 0RF Referrals Follow up/Referrals: Kathleen Sanderson APRN [Primary Care Provider] - See instructions Activity Restrictions/Add. Instructions Additional Instructions/Restrictions: Drink plenty of fluids. Take tylenol or ibuprofen for pain or fever. Take the medications as directed. Follow up with your regular doctor. GO TO THE ER FOR ANY WORSENING SYMPTOMS The pyridium will make your urine turn orange, this is an expected side effect. It will stain your clothes if it comes into contact with them. We will culture the urine. That will tell what bacteria is causing your infection and which antibiotics will treat it best. Sometimes the first antibiotic we prescribe turns out to not work against different bacteria. So, make sure you follow up within 3 days if you are not getting better. Clinical Impressions Clinical Impression: Acute UTI Instructions Patient Instructions: Urinary Tract Infection, DI for Urinary Tract Infection (UTI) Discharge ED Provider[place] Adrián [place] [facility] [place] General Stated complaint: body aches and back pain Time Seen by Provider: 05/21/23 14:53 History of Present Illness Provider Complaint: she states that she has had low back pain, dysuria, and urinary frequency for the past 3 days. Related Data Home Medications Medication Instructions Recorded Confirmed lisinopril 20 1 tab PO DAILY BLOOD PRESSURE 03/15/18 02/15/23 mg-hydrochlorothiazide 12.5 mg tablet metoprolol succinate 50 mg capsule 50 mg PO DAILY HTN 10/24/18 02/15/23 sprinkle, ext. release 24 hr potassium chloride 20 mEq 20 meq PO DAILY Supplement 10/24/18 02/15/23 tablet,extended release(part/cryst) (Klor-Con M) clonazepam 0.5 mg tablet 0.5 mg PO BID PRN Anxiety 02/04
[2023-05-21 14:55] VITALS: BP 204/97; PULSE 80; RESP 22; TEMP 36.7; O2SAT 95; BMI 34.7
[2023-05-21 15:11] LABS: Microscopic, Urine URINE MICROSCOPIC (MICROSCOPIC)
[2023-05-21 15:30] VITALS: BP 204/97; PULSE 80; RESP 22; TEMP 36.7; O2SAT 95
[2023-05-21 15:33] LABS: Appearance,Urine CLEAR (Clear); Bilirubin,Urine Negative (Negative); Blood, Urine 1+ (Negative); Color,Urine YELLOW (Yellow); Glucose,Urine (UA) Negative (Negative); Ketones,Urine Negative (Negative); Leukocyte Esterase,Urine 1+ (Negative); Nitrate,Urine Negative (Negative); Protein,Urine Negative (Negative); Specific Gravity, Urine 1.025 (1.005-1.030); Urobilinogen,Urine 0.2 EU/dl (0.2)
[2023-05-21 15:41] LABS: RBC,Urine Occasional #/hpf (0-3); WBC,Urine Occasional #/hpf (0-3)
== END 2023-05-21 15:35 | disposition home or self-care (01) ==
PROVIDERS: Emergency Provider Nurse Practitioner Family; PCP Nurse Practitioner Family
DX: N39.0 Urinary tract infection, site not specified (principal); B96.89 Other specified bacterial agents as the cause of diseases classified elsewhere; M54.59 Other low back pain; J45.909 Unspecified asthma, uncomplicated; I10 Essential (primary) hypertension; M19.09 Primary osteoarthritis, other specified site; G47.30 Sleep apnea, unspecified; R91.8 Other nonspecific abnormal finding of lung field; F41.9 Anxiety disorder, unspecified; Z87.891 Personal history of nicotine dependence
CPT/HCPCS: 81001; 87086; 99212; 99214; G0463

== ENCOUNTER → 2023-06-12 13:24 | Outpatient (CLI) | payer MEDICARE, SELFPAY | PROVIDERS: PCP Nurse Practitioner Family; Visit Provider Orthopaedic Surgery | DX: M79.671 Pain in right foot (principal); M79.672 Pain in left foot ==

== ENCOUNTER 2023-07-26 18:00 | Emergency (ER) | payer MEDICARE, SELFPAY ==
[2023-07-26 18:48] VITALS: BP 140/70; PULSE 75; RESP 17; TEMP 36.8; O2SAT 98; BMI 33.6
--- NOTE | 2023-07-26 19:14 | CT_ITS ---
PROCEDURE INFORMATION: Exam: CT Cervical Spine Without Contrast Exam date and time: 07/26/2023 7:43 PM Age: 78 years old Clinical indication: Injury or trauma; Fall; Blunt trauma; Patient HX: Patient fell 3 days ago. ; Additional info: Fall >65 TECHNIQUE: Imaging protocol: Computed tomography of the cervical spine without contrast. Radiation optimization: All CT scans at this facility use at least one of these dose optimization techniques: automated exposure control; mA and/or kV adjustment per patient size (includes targeted exams where dose is matched to clinical indication); or iterative reconstruction. REPORTING DATA: Count of CT and Cardiac NM exams in prior 12 months: This patient has received [address] and 0 known cardiac nuclear medicine studies in the 12 months prior to the current study. COMPARISON: 1. CT HEAD/BRAIN WO CON 07/26/2023 7:[address] CHEST WO CON 12/01/2022 10:14 AM 3. US CA CAROTID DUPLEX BI 05/10/2020 3:18 PM FINDINGS: Bones/joints: The alignment of the cervical spine appears normal with no evidence of subluxation or dislocation. The vertebral bodies are well-maintained without compression fractures. Disc spaces are generally preserved, although there are degenerative changes noted including disc space narrowing and osteophyte formation. These changes are consistent with age-related degenerative disc disease. The facet joints are intact but show some evidence of degenerative changes including hypertrophy and osteophyte formation. No facet dislocation is identified. The spinal canal is patent without evidence of central canal stenosis. Despite the post-traumatic clinical setting, there are no signs of acute fractures, dislocations, or ligamentous injury in the cervical spine. Lungs: Lung apices are normal. Nerves: The neural foramina are also open but slightly narrowed due to degenerative changes, without signs of nerve root impingement. Soft tissues: Soft tissues appear normal without signs of acute trauma or hematoma. Paraspinal muscles are unremarkable. IMPRESSION: This post-traumatic cervical spine CT demonstrates no acute traumatic findings such as fractures or ligamentous injury. There are age-related degenerative changes that include disc space narrowing and osteophyte formation. These degenerative changes are not uncommon for the patient's age and should be clinically correlated for a comprehensive assessment.
--- NOTE | 2023-07-26 19:14 | XR_ITS ---
PROCEDURE INFORMATION: Exam: XR Left Knee Exam date and time: 07/26/2023 7:55 PM Age: 78 years old Clinical indication: Injury or trauma; Fall; Blunt trauma; Knee; Left; Additional info: Fall, pain TECHNIQUE: Imaging protocol: Radiologic exam of the left knee. Views: 3 views. COMPARISON: CR XR TIBIA FIBULA LT 2V 07/26/2023 7:55 PM FINDINGS: Bones/joints: Normal. Soft tissues: Normal. IMPRESSION: No acute findings.
--- NOTE | 2023-07-26 19:14 | XR_ITS ---
PROCEDURE INFORMATION: Exam: XR Left Hip Exam date and time: 07/26/2023 7:55 PM Age: 78 years old Clinical indication: Injury or trauma; Fall; Blunt trauma (contusions or hematomas); Left; Hip; Additional info: Fall, pain TECHNIQUE: Imaging protocol: Radiologic exam of the left hip. Views: 2 or 3 views hip with pelvis when performed. COMPARISON: CT ABDOMEN PELVIS WO CON 01/24/2021 9:51 AM FINDINGS: Bones/joints: Status post left hip arthroplasty. Partially visualized lumbar spine surgical hardware. There are partially visualized degenerative changes of the sacroiliac joints and lumbar spine as well as some degenerative disease of the pubic symphysis. 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 No acute fracture or dislocation is identified. Soft tissues: Unremarkable. IMPRESSION: Degenerative disease and postsurgical change without acute injury identified.
--- NOTE | 2023-07-26 19:14 | XR_ITS ---
PROCEDURE INFORMATION: Exam: XR Left Tibia and Fibula Exam date and time: 07/26/2023 7:55 PM Age: 78 years old Clinical indication: Injury or trauma; Fall; Blunt trauma; Lower leg; Left; Additional info: Fall, pain TECHNIQUE: Imaging protocol: Radiologic exam of the left tibia and fibula. Views: 2 views. COMPARISON: CR XR FOOT WT BEARING LT 3V 08/21/2022 4:34 PM FINDINGS: Bones/joints: Normal. Soft tissues: Normal. IMPRESSION: No acute findings.
--- NOTE | 2023-07-26 19:14 | CT_ITS ---
PROCEDURE INFORMATION: Exam: CT Head Without Contrast Exam date and time: 07/26/2023 7:37 PM Age: 78 years old Clinical indication: Injury or trauma; Fall; Blunt trauma (contusions or hematomas); Patient HX: Fell 3 days ago. ; Additional info: Fall >65 TECHNIQUE: Imaging protocol: Computed tomography of the head without contrast. Radiation optimization: All CT scans at this facility use at least one of these dose optimization techniques: automated exposure control; mA and/or kV adjustment per patient size (includes targeted exams where dose is matched to clinical indication); or iterative reconstruction. REPORTING DATA: Count of CT and Cardiac NM exams in prior 12 months: This patient has received [address] and 0 known cardiac nuclear medicine studies in the 12 months prior to the current study. COMPARISON: 1. CT HEAD/BRAIN WO CON 01/23/2022 10:[address] HEAD/BRAIN WO CON 06/27/2021 1:27 PM 3. US CA CAROTID DUPLEX BI 05/10/2020 3:18 PM FINDINGS: Brain: The brain parenchyma appears normal for an elderly patient, with no evidence of acute ischemia, hemorrhage, or masses. The byrd-white matter differentiation is preserved. Mild periventricular white matter hypodensities are consistent with chronic small vessel ischemic changes, which are often seen in elderly patients and are not indicative of acute pathology. Cerebral ventricles: Ventricles and sulci are consistent with patient age, showing mild age-related atrophy but no significant enlargement. Paranasal sinuses: The orbits and paranasal sinuses are free of marked disease. No opacifications are observed in the visible sinus cavities. Mastoid air cells: Visualized mastoid air cells are well aerated. Bones/joints: The cranial bones are intact with no signs of fractures or lytic lesions. Soft tissues: Unremarkable. IMPRESSION: In this patient, the head CT reveals no evidence of acute intracranial pathology. The observed structures including the brain parenchyma, vascular structures, cranial bones, and soft tissues appear within normal limits, except for age-related atrophic and chronic ischemic changes which are not unexpected for this age group.
--- NOTE | 2023-07-26 19:14 | XR_ITS ---
PROCEDURE INFORMATION: Exam: XR Left Femur Exam date and time: 07/26/2023 7:55 PM Age: 78 years old Clinical indication: Injury or trauma; Fall; Blunt trauma; Thigh or upper leg; Left; Additional info: Fall, pain TECHNIQUE: Imaging protocol: Radiologic exam of the left femur. Views: 2 views. COMPARISON: CR XR KNEE LT 3V 07/26/2023 7:55 PM FINDINGS: Bones/joints: Status post left hip arthroplasty. No acute fracture or dislocation is identified. Soft tissues: Unremarkable. Vasculature: Scattered atherosclerotic disease of the arterial vasculature. IMPRESSION: Degenerative disease and postsurgical change without acute injury identified.
[2023-07-26 21:11] VITALS: BP 138/78; PULSE 74; RESP 17; TEMP 36.8; O2SAT 97
[2023-07-26 21:14] VITALS: BP 149/63; PULSE 82; RESP 20; TEMP 36.6; O2SAT 96
--- NOTE | 2023-07-26 22:55 | HMH.EDGENADL ---
Discharge Plan Disposition Patient Disposition: Home, Self-Care Condition: Good Prescriptions Prescriptions: New sulfamethoxazole-trimethoprim [Bactrim DS] 800-160 mg tablet 1 tab PO BID 10 Days Qty: 20 0RF No Action metoprolol succinate 50 mg capsule,sprinkle,ER 24hr 50 mg PO DAILY potassium chloride [Klor-Con M20] 20 mEq tablet,ER particles/crystals 20 meq PO DAILY tramadol 50 mg tablet 50 mg PO QID PRN (Reason: Pain) sennosides [senna] 8.6 mg tablet 8.6 mg PO BID PRN (Reason: Constipation) albuterol sulfate 90 mcg/actuation HFA aerosol inhaler 1 inh inhalation QID PRN (Reason: shortness of breath or wheezing) Qty: 6.7 2RF doxycycline hyclate 100 mg capsule 100 mg PO BID 5 Days Qty: 10 0RF prednisone 20 mg tablet 40 mg PO DAILY 5 Days Qty: 10 0RF budesonide-formoterol [Symbicort] 160-4.5 mcg/actuation HFA aerosol inhaler 2 puff inhalation BID 90 Days Qty: 10.2 2RF albuterol sulfate 90 mcg/actuation HFA aerosol inhaler 2 inh inhalation Q6H PRN (Reason: shortness of breath or wheezing) 90 Days Qty: 8.5 2RF ipratropium-albuterol 0.5 mg-3 mg(2.5 mg base)/3 mL solution for nebulization 3 ml inhalation Q6H PRN (Reason: shortness of breath or wheezing) Qty: 180 3RF azelastine 137 mcg (0.1 %) aerosol,spray 2 spray intranasal HS 90 Days Qty: 30 2RF Rx Instructions: administer into each nostril fluticasone propionate [Flonase Allergy Relief] 50 mcg/actuation spray,suspension 2 spray intranasal DAILY 90 Days Qty: 16 2RF Rx Instructions: administer into each nostril benzonatate 100 mg capsule 100 mg PO BID PRN (Reason: cough) Qty: 30 0RF lisinopril-hydrochlorothiazide 1 EACH tablet 1 tab PO DAILY atorvastatin 20 mg tablet 20 mg PO HS sulfamethoxazole-trimethoprim [Bactrim DS] 800-160 mg tablet 1 tab PO DAILY 10 Days Qty: 10 0RF phenazopyridine [Pyridium] 200 mg tablet 200 mg PO Q8H 2 Days Qty: 6 0RF ciprofloxacin HCl [Cipro] 500 mg tablet 500 mg PO BID 7 Days Qty: 14 0RF ondansetron 4 mg Tablet,Disintegrating 4 mg PO Q8H PRN (Reason: Nausea) Qty: 12 0RF clonazepam 0.5 mg tablet 0.5 mg PO BID PRN (Reason: Anxiety) Patient Comments: prednisone 50 mg tablet 50 mg PO DAILY 3 Days Qty: 3 0RF Referrals Follow up/Referrals: Kathleen Sanderson APRN [Primary Care Provider] - See instructions Activity Restrictions/Add. Instructions Additional Instructions/Restrictions: You were evaluated in the emergency department today. Please apply the antibiotic ointment to your wound twice a day with dressing changes. Keep your wound clean and dry. Do not submerge under any water. 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 Follow-up department care provider over the next 3 days for wound recheck. Clinical Impressions Clinical Impression: Infected laceration Instructions Patient Instructions: DI for Wound Infection Discharge ED Provider: Magali Jimenez General Adult HPI General Chief complaint: Extremity Injury, Lower Stated complaint: AO07/26 fall Lt leg inj Time Seen by Provider: 07/26/23 18:29 Mode of Arrival: Family Vehicle Source of Information: Patient and Medical Record Limitations: No Limitations Description of Symptoms (Recalled from ER Triage Doc. by RN): Pt c/o LLE injury from a fall 3 days ago. States she caught her LLE on a bronze handle of a dresser in her home. Denies any LOC or head or neck pain. States I guess my legs gave out . Report this has been occurring more frequently, she is supposed to be seeing Dr. English for this. She has been using neosporin and dressing her wound for several days. However, her LLE isbecoming more swollen, red/dark bruises, and tender. History of Present Illness HPI narrative: This patient is a 78-year-old female with a history of obesity, PAD, CAD, LAURA, irritable bowel, chronic back pain, hypertension, and as
== END 2023-07-26 21:17 | disposition home or self-care (01) ==
PROVIDERS: Emergency Provider Emergency Medicine; PCP Nurse Practitioner Family
DX: S81.802A Unspecified open wound, left lower leg, initial encounter (principal); L08.9 Local infection of the skin and subcutaneous tissue, unspecified; I73.9 Peripheral vascular disease, unspecified; I10 Essential (primary) hypertension; J45.909 Unspecified asthma, uncomplicated; Z95.5 Presence of coronary angioplasty implant and graft; Z87.891 Personal history of nicotine dependence; W22.03XA Walked into furniture, initial encounter; Z23 Encounter for immunization
CPT/HCPCS: 70450; 72125; 73502; 73552; 73562; 73590; 90471; 99285

== ENCOUNTER → 2023-08-02 15:31 | Outpatient (CLI) | payer MEDICARE, SELFPAY | LOC: RT 15:32 | PROVIDERS: PCP Nurse Practitioner Family; Visit Provider Nurse Practitioner Family | DX: R00.2 Palpitations (principal) | CPT/HCPCS: 93225; 93226 ==

== ENCOUNTER 2023-08-12 11:05 | Emergency (ER) | payer MEDICARE, SELFPAY ==
[2023-08-12 11:07] VITALS: BP 144/69; PULSE 87; RESP 15; TEMP 36.6; O2SAT 96; BMI 32.7
[2023-08-12 11:20] VITALS: BP 144/69
--- NOTE | 2023-08-12 11:28 | XR_ITS ---
PROCEDURE INFORMATION: Exam: XR Right Tibia and Fibula Exam date and time: 08/12/2023 11:40 AM Age: 78 years old Clinical indication: Injury or trauma; Fall; Wound; Lower leg; Right; Without foreign body; Additional info: Fall, infected wound medial garvey TECHNIQUE: Imaging protocol: Radiologic exam of the right tibia and fibula. Views: 2 views. COMPARISON: CR XR FOOT RT MIN 3V 03/19/2023 1:47 PM FINDINGS: Bones/joints: No acute fracture. No dislocation. Soft tissues: Normal. IMPRESSION: No acute findings.
--- NOTE | 2023-08-12 11:28 | XR_ITS ---
PROCEDURE INFORMATION: Exam: XR Left Tibia and Fibula Exam date and time: 08/12/2023 11:37 AM Age: 78 years old Clinical indication: Injury or trauma; Fall; Wound; Lower leg; Left; Without foreign body; Additional info: Fall, pain proximal fib TECHNIQUE: Imaging protocol: Radiologic exam of the left tibia and fibula. Views: 2 views. COMPARISON: CR XR TIBIA FIBULA LT 2V 07/26/2023 7:55 PM FINDINGS: Bones/joints: No acute fracture. No dislocation. Soft tissues: Normal. IMPRESSION: No acute findings.
--- NOTE | 2023-08-12 11:28 | ED_ITS ---
Discharge Plan Disposition Patient Disposition: Home, Self-Care Chief Complaint: Recheck/Abnormal Lab/Rx Prescriptions Prescriptions: No Action metoprolol succinate 50 mg capsule,sprinkle,ER 24hr 50 mg PO DAILY potassium chloride [Klor-Con M20] 20 mEq tablet,ER particles/crystals 20 meq PO DAILY tramadol 50 mg tablet 50 mg PO QID PRN (Reason: Pain) sennosides [senna] 8.6 mg tablet 8.6 mg PO BID PRN (Reason: Constipation) albuterol sulfate 90 mcg/actuation HFA aerosol inhaler 1 inh inhalation QID PRN (Reason: shortness of breath or wheezing) Qty: 6.7 2RF doxycycline hyclate 100 mg capsule 100 mg PO BID 5 Days Qty: 10 0RF prednisone 20 mg tablet 40 mg PO DAILY 5 Days Qty: 10 0RF budesonide-formoterol [Symbicort] 160-4.5 mcg/actuation HFA aerosol inhaler 2 puff inhalation BID 90 Days Qty: 10.2 2RF albuterol sulfate 90 mcg/actuation HFA aerosol inhaler 2 inh inhalation Q6H PRN (Reason: shortness of breath or wheezing) 90 Days Qty: 8.5 2RF ipratropium-albuterol 0.5 mg-3 mg(2.5 mg base)/3 mL solution for nebulization 3 ml inhalation Q6H PRN (Reason: shortness of breath or wheezing) Qty: 180 3RF azelastine 137 mcg (0.1 %) aerosol,spray 2 spray intranasal HS 90 Days Qty: 30 2RF Rx Instructions: administer into each nostril fluticasone propionate [Flonase Allergy Relief] 50 mcg/actuation s pray,suspension 2 spray intranasal DAILY 90 Days Qty: 16 2RF Rx Instructions: administer into each nostril benzonatate 100 mg capsule 100 mg PO BID PRN (Reason: cough) Qty: 30 0RF lisinopril-hydrochlorothiazide 1 EACH tablet 1 tab PO DAILY atorvastatin 20 mg tablet 20 mg PO HS sulfamethoxazole-trimethoprim [Bactrim DS] 800-160 mg tablet 1 tab PO DAILY 10 Days Qty: 10 0RF phenazopyridine [Pyridium] 200 mg tablet 200 mg PO Q8H 2 Days Qty: 6 0RF ciprofloxacin HCl [Cipro] 500 mg tablet 500 mg PO BID 7 Days Qty: 14 0RF ondansetron 4 mg Tablet,Disintegrating 4 mg PO Q8H PRN (Reason: Nausea) Qty: 12 0RF clonazepam 0.5 mg tablet 0.5 mg PO BID PRN (Reason: Anxiety) Patient Comments: prednisone 50 mg tablet 50 mg PO DAILY 3 Days Qty: 3 0RF sulfamethoxazole-trimethoprim [Bactrim DS] 800-160 mg tablet 1 tab PO BID 10 Days Qty: 20 0RF Referrals Follow up/Referrals: Khadar Quintana MD [Primary Care Provider] - See instructions Activity Restrictions/Add. Instructions Additional Instructions/Restrictions: At this time it was felt you are safe to be discharged home. If new or worsening symptoms please do not hesitate to return the emergency department. The antibiotics that we gave you today will last for 7 days. Please follow-up with your family doctor within 1 week for repeat evaluation and possible refe rral to wound care. Please moisturize your skin multiple times a day as discussed everywhere except for your open wound. Clinical Impressions Clinical Impression: Leg wound, left, Infection of eczematous skin Discharge ED Provider: Diego Fernandes General Adult HPI General Chief complaint: Recheck/Abnormal Lab/Rx Stated complaint: ao cut from last june Left leg pain Time Seen by Provider: 08/12/23 11:09 Mode of Arrival: Ambulatory Source of Information: Patient and Spouse Limitations: No Limitations Description of Symptoms (Recalled from ER Triage Doc. by RN): pt presents to ED with c/o left lower leg abrasion. pt reports last night abrasion began to itch and have redness around the site. no fevers, diarrhea noted. History of Present Illness HPI narrative: Patient is a 78-year-old female with past medical history of multiple comorbidities who presents for repeat evaluation of leg wound. I have previously seen this patient. Patient suffered a ground-level fall on her bilateral shins in March 2023. Originally she had an infected wound on her left proximal medial garvey which was treated with antibiotics. She states that she has had partial resolution of previously however since then she has a chronic wound. Over the last couple of days she has had itching on her bilateral shins left greater than right and has noticed erythema on her left garvey causing her to present here for continued evaluation. Denies any acute falls. No other acute complaints at this time. Related Data Home Medications Medication Instructions Recorded Confirmed lisinopril 20 1 tab PO DAILY BLOOD PRESSURE 03/15/18 06/12/23 mg-hydrochlorothiazide 12.5 mg tablet metoprolol succinate 50 mg capsule 50 mg PO DAILY HTN 10/24/18 06/12/23 sprinkle, ext. release 24 hr potassium chloride 20 mEq 20 meq PO DAILY Supplement 10/24/18 06/12/23 tablet,extended release(part/cryst) (Klor-Con M) clonazepam 0.5 mg tablet 0.5 mg PO BID PRN Anxiety 02/26/19 06/12/23 sennosides 8.6 mg tablet (senna) 8.6 mg PO BID PRN Constipation 02/26/19 06/12/23 tramadol 50 mg tablet 50 mg PO QID PRN Pain 02/26/19 06/12/23 atorvastatin 20 mg tablet 20 mg PO HS Cholesterol 03/18/20 06/12/23 Previous Rx's Medication Instructions Recorded albuterol sulfate 90 mcg/actuation 1 inh inhalation QID PRN shortness 05/18/20 aerosol inhaler of breath or wheezing #6.7 grams albuterol sulfate 90 mcg/actuation 2 inh inhalation Q6H PRN shortness 02/07/23 aerosol inhaler of breath or wheezing 90 days #8.5 grams azelastine 137 mcg (0.1 %) nasal 2 spray intranasal HS 90 days #30 02/07/23 spray aerosol mL budesonide-formoterol HFA 160 2 puff inhalation BID 90 days 02/07/23 mcg-4.5 mcg/actuation aerosol #10.2 grams inhaler (Symbicort) doxycycline hyclate 100 mg capsule 100 mg PO BID 5 days #10 caps 02/07/23 fluticasone propionate 50 2 spray intranasal DAILY 90 days 02/07/23 mcg/actuation nasal #16 grams spray,suspension (Flonase Allergy Relief) ipratropium 0.5 mg-albuterol 3 mg 3 ml inhalation Q6H PRN shortness 02/07/23 (2.5 mg base)/3 mL nebulization of breath or wheezing #180 mL soln prednisone 20 mg tablet 40 mg PO DAILY 5 days #10 tabs 02/07/23 benzonatate 100 mg capsule 100 mg PO BID PRN cough #30 caps 02/08/23 sulfamethoxazole 800 1 tab PO DAILY 10 days #10 tabs 03/24/23 mg-trimethoprim 160 mg tablet (Bactrim DS) prednisone 50 mg tablet 50 mg PO DAILY 3 days #3 tabs 04/27/23 ciprofloxacin HCl 500 mg tablet 500 mg PO BID 7 days #14 tabs 05/21/23 (Cipro) ondansetron 4 mg disintegrating 4 mg PO Q8H PRN Nausea #12 tabs 05/21/23 tablet phenazopyridine 200 mg tablet 200 mg PO Q8H 2 days #6 tabs 05/21/23 (Pyridium) sulfamethoxazole 800 1 tab PO BID 10 days #20 tabs 07/26/23 mg-trimethoprim 160 mg tablet (Bactrim DS) Allergies Allergy/AdvReac Type Severity Reaction Status Date / Time adhesive tape Allergy Severe Hives Verified 06/12/23 14:42 chlorhexidine Allergy Severe RASH Verified 06/12/23 14:42 [From Hibiclens] Iodinated Contrast Media Allergy Intermediate Unknown Verified 06/12/23 14:42 [IODINATED CONTRAST MEDIA - allergy IV DYE] reaction povidone-iodine Allergy Intermediate I-RASH Verified 06/12/23 14:42 [From BETADINE] cephalexin Allergy Unknown Unknown Verified 06/12/23 14:42 allergy reaction PFS PFS Disclaimer: The information contained in this section may have been updated after the patient was seen, as this information can be updated by other users. Medical History Allergic rhinitis Anxiety Asthma Asthma Asthma Cataract Cough Dizziness Dyspnea on exertion Dyspnea on exertion Edema Foot pain, bilateral History of anemia History of back pain History of cataract History of diverticulitis Hypertension Migraine Multiple pulmonary nodules Osteoarthritis Ringing in ears Seasonal allergies Sinusitis, acute frontal Sleep apnea Urinary tract infection Wheezing Surgical History H/O: hysterectomy History of appendectomy History of carpal tunnel surgery of right wrist History of cataract surgery History of hip surgery History of left hip replacement Hx of cardiac cath Hx of cholecystectomy Hx of right coronary artery stent placement Hx of shoulder surgery Hx of vaginal surgery Family History Mother Rheumatoid aortitis Family/Other Heart attack Social History Smoking Status: Never smoker alcohol intake: never substance use type: denies use current occupational status: retired Travel in the last 8 weeks: None housing: house current occupational exposures/hazards: No caffeine: Yes ROS Obtained: Yes Systems reviewed as appropriate & no additional complaints except as documented Physical Exam General General appearance: alert and in no apparent distress Head Head exam: atraumatic and normocephalic Eye Eye exam: Present PERRL and EOMI ENT ENT exam: Present mucous membranes moist Neck Neck exam: Present normal inspection Chest Chest inspection: Present normal inspection and symmetric chest wall rise Respiratory Respiratory exam: Present normal lung sounds bilaterally; Absent respiratory di stress Cardiovascular Cardiovascular exam: Present regular rate and normal rhythm Abdominal Exam Abdominal exam: Present soft Extremities Exam Extremities exam: Present other (Superficial wound 3 cm x 8 cm medial proximal left garvey, excoriation and skin peeling about the left garvey with associated erythema. 2+ left dorsal pedal pulse, capillary refill less than 2 seconds in all digits of the left foot.) Neurological Exam Neurological exam: Present alert Psychiatric Psychiatric exam: Present normal affect Skin Skin exam: Present warm Medical Decision Making Agustin Inquiry Pt receiving controlled substance: No Vital Signs: 08/12/23 11:07 08/12/23 11:20 08/12/23 11:30 Temperature 97.8 F Temperature Source Oral Pulse Rate 87 Pulse Rate [Left Radial] 87 Respiratory Rate 15 20 Blood Pressure 121/60 Blood Pressure [Right Arm] 144/69 H 144/69 H Blood Pressure Mean 88 Blood Pressure Mean [Right Arm] 94 94 02 Sat by Pulse Oximetry 96 95 Oxygen Delivery Method Room Air 08/12/23 11:42 08/12/23 12:30 Temperature Temperature Source Pulse Rate 82 82 Pulse Rate [Left Radial] Respiratory Rate Blood Pressure 144/63 H 123/63 Blood Pressure [Right Arm] Blood Pressure Mean 95 Blood Pressure Mean [Right Arm] 02 Sat by Pulse Oximetry 93 L 96 Oxygen Delivery Method Lab Data Lab Results 08/12/23 11:35: WBC 7.1, RBC 4.46, Hgb 14.3, Hct 43.1, MCV 96.8, MCH 32.1 H, MCHC 33.2, RDW 13.8, Plt Count 175, MPV 9.0, Neut % (Auto) 57.9, Lymph % (Auto) 27.6, [place] % (Auto) 6.4, Eos % (Auto) 7.1, Baso % (Auto) 1.0, Neut # (Auto) 4.1, Lymph # (Auto) 2.0, [place] # (Auto) 0.5, Eos # (Auto) 0.5 H, Baso # (Auto) 0.1, Sodium 139, Potassium 4.2, Chloride 107, Carbon Dioxide 25, Anion Gap 11.2, BUN 14, Creatinine 0.90, Estimated Creat Clear 60, Estimated GFR 61, Est GFR (Af ger Clemons) 73, Glucose 90, Calcium 8.8, Total Bilirubin 0.5, AST 27, ALT 21, Alkaline Phosphatase 101, Total Protein 6.7, Albumin 3.8, Globulin 2.9, Albumin/Globulin Ratio 1.3 08/12/23 11:35 08/12/23 11:35 Orders (Tests/Meds): ED MEDICATIONS Discontinued Medications Generic Name Dose Route Start Last Admin Trade Name Varunq PRN Reason Stop Dose Admin Dalbavancin 1,500 mg/ Dextrose 250 mls @ 500 mls/hr 08/12/23 12:30 08/12/23 12:42 IV 08/12/23 12:59 500 mls/hr ONCE ONE Administration ORDERS Category Date Time Status Fibula/tibia XR left 2 views [XR tibia fibula LT 2V] Exams 08/12/23 11:28 Completed Stat Fibula/tibia XR right 2 views [XR tibia fibula RT 2V] Exams 08/12/23 11:28 Completed Stat CBC w/Auto Diff [Complete Blood Count Auto Diff] Stat Lab 08/12/23 11:35 Completed CMP [Comprehensive Metabolic Panel] Stat Lab 08/12/23 11:35 Completed EKG Request [ECG Request] Stat Y 08/12/23 11:29 Ordered ECG Data Tracing #1: Independently interpreted by me, rate is 81, rhythm is regular with isolated PVC, axis is normal, no ST elevation in anatomical contiguous leads, QTc 395 Medical Decision Narrative: In summary patient is a 78-year-old female past medical history described above presents emergency department for evaluation of infected leg wound. Patient is hemodynamically stable nontoxic-appearing upon arrival, afebrile. I suspect that patient has a chronic nonhealing wound with superimposed eczema that has become infected secondary to excoriation. Differential includes eczema herpeticum however skin findings are not consistent with this. No proximal leg swelling or asymmetric swelling to suggest DVT. Workup screening for sepsis and kidney function will be conducted with hematologic labs. Plain films will be obtained bilateral lower extremities. Workup reviewed by me, hematologic labs are nonactionable, no ALEXY or critical electrolyte abnormalities, no leukocytosis. Upon repeat evaluation patient continued to be well-appearing in bed. Given this patient was given a dose of dalbavancin, he was instructed the importance of wound care and frequent moisturization for her eczema. Patient was encouraged to follow-up with her PCP for referral to formal wound care and is appropriate for discharge at this time. Critical Care Critical Care Time Critical Care Time: No
[2023-08-12 11:30] VITALS: BP 121/60; PULSE 87; RESP 20; O2SAT 95
[2023-08-12 11:40] LABS: Basophils # 0.1 K/mm3 (0-0.2); Eosinophils # 0.5 K/mm3 (0.0-0.4); Eosinophils % 7.1 % (0.1-12.0); Hematocrit 43.1 % (37.0-47.0); Hemoglobin 14.3 g/dL (12.2-16.2); Lymphocytes % 27.6 % (10-50); Mean Corpuscular HGB Conc 33.2 g/dL (31.8-35.4); Mean Corpuscular Hemoglobin 32.1 pg (27.0-31.2); Mean Corpuscular Volume 96.8 fl (81-99); Monocytes # 0.5 K/mm3 (0.1-1.0); Monocytes % 6.4 % (1.7-9.3); Neutrophils # 4.1 K/mm3 (1.8-7.8); Neutrophils % 57.9 % (37.0-80.0); Platelet Count 175 K/mm3 (142-424); Red Blood Count 4.46 M/mm3 (4.20-5.40); Red Cell Distribution Width 13.8 % (11.5-17.5); White Blood Count 7.1 K/mm3 (4.8-10.8)
[2023-08-12 11:42] VITALS: BP 144/63; PULSE 82; O2SAT 93
--- NOTE | 2023-08-12 11:43 | PC.NURSE ---
pt gone to xray
[2023-08-12 11:45] LABS: Chloride 107 mmol/L (98-107)
[2023-08-12 11:46] LABS: Potassium 4.2 mmoL/L (3.5-5.1); Sodium 139 mmol/L (136-145)
[2023-08-12 11:48] LABS: Alanine Aminotransferase 21 U/L (12-78); Albumin Level 3.8 g/dl (3.5-5.0); Albumin/Globulin Ratio 1.3 (1.1-1.8); Alkaline Phosphatase 101 U/L (38-126); Anion Gap 11.2 mEq/L (5-15); Aspartate Amino Transferase 27 U/L (14-36); Bilirubin,Total 0.5 mg/dl (0.2-1.3); Blood Urea Nitrogen 14 mg/dl (7-17); Carbon Dioxide 25 mmol/L (22.0-30.0); Creatinine Clearance Estimated 60 mL/min (50-200); Estimated Glomerular Filt Rate 61 ml/min (>60); GFR (African American) 73 ML/MIN (>60); Globulin 2.9 g/dL (1.3-3.2); Total Protein,Serum 6.7 g/dl (6.3-8.2)
[2023-08-12 11:49] LABS: Calcium 8.8 mg/dl (8.4-10.2); Glucose 90 mg/dl (74-100)
[2023-08-12 12:30] VITALS: BP 123/63; PULSE 82; O2SAT 96
[2023-08-12] MEDS: DALBAVANCIN HCL 1,500 MG in DEXTROSE 5 % IN WATER 250 ML 500 MG IV (12:42)
[2023-08-12 13:27] VITALS: BP 113/61; PULSE 88; RESP 16; TEMP 36.6; O2SAT 96
== END 2023-08-12 13:28 | disposition home or self-care (01) ==
PROVIDERS: Emergency Provider Emergency Medicine; PCP Internal Medicine Adolescent Medicine
DX: L08.9 Local infection of the skin and subcutaneous tissue, unspecified (principal); L30.9 Dermatitis, unspecified; S81.802S Unspecified open wound, left lower leg, sequela; J45.909 Unspecified asthma, uncomplicated; I10 Essential (primary) hypertension; G47.30 Sleep apnea, unspecified; W18.30XS Fall on same level, unspecified, sequela; I49.3 Ventricular premature depolarization
CPT/HCPCS: 73590; 80053; 85025; 93005; 96365; 99285; J0875

== ENCOUNTER 2023-08-13 08:45 | Emergency (ER) | payer MEDICARE, SELFPAY ==
--- NOTE | 2023-08-12 11:40 | ECG_ITS ---
APPROVED REPORT Exam: Resting ECG HR:81 bpm ECG Measurements Heart Rate 81 AXES NV 133 P 54 QRSd 84 QRS 35 QT 358 T 64 QTc 395 Conclusion SINUS RHYTHM WITH OCCASIONAL VENTRICULAR PREMATURE COMPLEXES BORDERLINE ECG UNCONFIRMED REPORT Electronically signed by : Khadar Quintana MD 08/13/2023 17:49:51
[2023-08-13 08:47] VITALS: BP 137/74; PULSE 102; RESP 16; TEMP 36.6; O2SAT 96; BMI 32.8
--- NOTE | 2023-08-13 09:33 | ED_ITS ---
Discharge Plan Disposition Patient Disposition: Home, Self-Care Chief Complaint: Skin/Abscess/Foreign Body Prescriptions Prescriptions: No Action metoprolol succinate 50 mg capsule,sprinkle,ER 24hr 50 mg PO DAILY potassium chloride [Klor-Con M20] 20 mEq tablet,ER particles/crystals 20 meq PO DAILY tramadol 50 mg tablet 50 mg PO QID PRN (Reason: Pain) sennosides [senna] 8.6 mg tablet 8.6 mg PO BID PRN (Reason: Constipation) albuterol sulfate 90 mcg/actuation HFA aerosol inhaler 1 inh inhalation QID PRN (Reason: shortness of breath or wheezing) Qty: 6.7 2RF doxycycline hyclate 100 mg capsule 100 mg PO BID 5 Days Qty: 10 0RF prednisone 20 mg tablet 40 mg PO DAILY 5 Days Qty: 10 0RF budesonide-formoterol [Symbicort] 160-4.5 mcg/actuation HFA aerosol inhaler 2 puff inhalation BID 90 Days Qty: 10.2 2RF albuterol sulfate 90 mcg/actuation HFA aerosol inhaler 2 inh inhalation Q6H PRN (Reason: shortness of breath or wheezing) 90 Days Qty: 8.5 2RF ipratropium-albuterol 0.5 mg-3 mg(2.5 mg base)/3 mL solution for nebulization 3 ml inhalation Q6H PRN (Reason: shortness of breath or wheezing) Qty: 180 3RF azelastine 137 mcg (0.1 %) aerosol,spray 2 spray intranasal HS 90 Days Qty: 30 2RF Rx Instructions: administer into each nostril fluticasone propionate [Flonase Allergy Relief] 50 mcg/actuation spray,suspension 2 spray intranasal DAILY 90 Days Qty: 16 2RF Rx Instructions: administer into each nostril benzonatate 100 mg capsule 100 mg PO BID PRN (Reason: cough) Qty: 30 0RF lisinopril-hydrochlorothiazide 1 EACH tablet 1 tab PO DAILY atorvastatin 20 mg tablet 20 mg PO HS sulfamethoxazole-trimethoprim [Bactrim DS] 800-160 mg tablet 1 tab PO DAILY 10 Days Qty: 10 0RF phenazopyridine [Pyridium] 200 mg tablet 200 mg PO Q8H 2 Days Qty: 6 0RF ciprofloxacin HCl [Cipro] 500 mg tablet 500 mg PO BID 7 Days Qty: 14 0RF ondansetron 4 mg Tablet,Disintegrating 4 mg PO Q8H PRN (Reason: Nausea) Qty: 12 0RF clonazepam 0.5 mg tablet 0.5 mg PO BID PRN (Reason: Anxiety) Patient Comments: prednisone 50 mg tablet 50 mg PO DAILY 3 Days Qty: 3 0RF sulfamethoxazole-trimethoprim [Bactrim DS] 800-160 mg tablet 1 tab PO BID 10 Days Qty: 20 0RF Referrals Follow up/Referrals: Kathleen Sanderson APRN [Primary Care Provider] - See instructions Activity Restrictions/Add. Instructions Additional Instructions/Restrictions: Cellulitis (infection of the skin and tissue) of your left leg will continue to appear and feel worse for about 72 hours after infusion of antibiotic you received on 08/12. Topical Benadryl cream can help with itching, you can buy this [id number]. Call your family doctor to establish care for this visit to the emergency department and schedule follow-up within 48 hours to ensure improvement. If you have any worsening of your condition, including fevers, chills, vomiting, further spreading infection after 08/14/2023, or or any other concerning signs or symptoms, return to the emergency department or your primary care doctor for further evaluation. Clinical Impressions Clinical Impression: Cellulitis of left lower leg Instructions Patient Instructions: DI for Skin Abscess Discharge ED Provider: Andrea Liriano General Adult HPI General Chief complaint: Skin/Abscess/Foreign Body Stated complaint: left leg pain Time Seen by Provider: 08/13/23 08:50 Mode of Arrival: Ambulatory Source of Information: Patient Limitations: No Limitations Description of Symptoms (Recalled from ER Triage Doc. by RN): pt presents with c/o itching. located on left lower leg. pt was seen yesterday in the ER and worked up. pt reports not being able to sleep last night History of Present Illness HPI narrative: 78-year-old female with history of high blood pressure, paroxysmal tachycardia, CAD, generalized anxiety disorder presenting with left leg itching. Patient states that she has been seen, 1 day prior to arrival on 08/12 for left lower extremity swelling, redness, and infection. Workup yesterday was reviewed and largely nonactionable. Patient was diagnosed with cellulitis and given its size/surface area, was given dalbavancin. Patient presents today with severe itching preventing her from sleeping denies fevers or chills, nausea or vomiting. Patient states that she has had workup for fast heart rate, and just had heart monitor placed, this is under review as of last week and she has not received results from the study yet. States the the symptoms are no worse than typical. Related Data Home Medications Medication Instructions Recorded Confirmed lisinopril 20 1 tab PO DAILY BLOOD PRESSURE 03/15/18 06/12/23 mg-hydrochlorothiazide 12.5 mg tablet metoprolol succinate 50 mg capsule 50 mg PO DAILY HTN 10/24/18 06/12/23 sprinkle, ext. release 24 hr potassium chloride 20 mEq 20 meq PO DAILY Supplement 10/24/18 06/12/23 tablet,extended release(part/cryst) (Klor-Con M) clonazepam 0.5 mg tablet 0.5 mg PO BID PRN Anxiety 02/26/19 06/12/23 sennosides 8.6 mg tablet (senna) 8.6 mg PO BID PRN Constipation 02/26/19 06/12/23 tramadol 50 mg tablet 50 mg PO QID PRN Pain 02/26/19 06/12/23 atorvastatin 20 mg tablet 20 mg PO HS Cholesterol 03/18/20 06/12/23 Previous Rx's Medication Instructions Recorded albuterol sulfate 90 mcg/actuation 1 inh inhalation QID PRN shortness 05/18/20 aerosol inhaler of breath or wheezing #6.7 grams albuterol sulfate 90 mcg/actuation 2 inh inhalation Q6H PRN shortness 02/07/23 aerosol inhaler of breath or wheezing 90 days #8.5 grams azelastine 137 mcg (0.1 %) nasal 2 spray intranasal HS 90 days #30 02/07/23 spray aerosol mL budesonide-formoterol HFA 160 2 puff inhalation BID 90 days 02/07/23 mcg-4.5 mcg/actuation aerosol #10.2 grams inhaler (Symbicort) doxycycline hyclate 100 mg capsule 100 mg PO BID 5 days #10 caps 02/07/23 fluticasone propionate 50 2 spray intranasal DAILY 90 days 02/07/23 mcg/actuation nasal #16 grams spray,suspension (Flonase Allergy Relief) ipratropium 0.5 mg-albuterol 3 mg 3 ml inhalation Q6H PRN shortness 02/07/23 (2.5 mg base)/3 mL nebulization of breath or wheezing #180 mL soln prednisone 20 mg tablet 40 mg PO DAILY 5 days #10 tabs 02/07/23 benzonatate 100 mg capsule 100 mg PO BID PRN cough #30 caps 02/08/23 sulfamethoxazole 800 1 tab PO DAILY 10 days #10 tabs 03/24/23 mg-trimethoprim 160 mg tablet (Bactrim DS) prednisone 50 mg tablet 50 mg PO DAILY 3 days #3 tabs 04/27/23 ciprofloxacin HCl 500 mg tablet 500 mg PO BID 7 days #14 tabs 05/21/23 (Cipro) ondansetron 4 mg disintegrating 4 mg PO Q8H PRN Nausea #12 tabs 05/21/23 tablet phenazopyridine 200 mg tablet 200 mg PO Q8H 2 days #6 tabs 05/21/23 (Pyridium) sulfamethoxazole 800 1 tab PO BID 10 days #20 tabs 07/26/23 mg-trimethoprim 160 mg tablet (Bactrim DS) Allergies Allergy/AdvReac Type Severity Reaction Status Date / Time adhesive tape Allergy Severe Hives Verified 06/12/23 14:42 chlorhexidine Allergy Severe RASH Verified 06/12/23 14:42 [From Hibiclens] Iodinated Contrast Media Allergy Intermediate Unknown Verified 06/12/23 14:42 [IODINATED CONTRAST MEDIA - allergy IV DYE] reaction povidone-iodine Allergy Intermediate I-RASH Verified 06/12/23 14:42 [From BETADINE] cephalexin Allergy Unknown Unknown Verified 06/12/23 14:42 allergy reaction [facility] Disclaimer: The information contained in this section may have been updated after the patient was seen, as this information can be updated by other users. Medical History Allergic rhinitis Anxiety Asthma Asthma Asthma Cataract Cough Dizziness Dyspnea on exertion Dyspnea on exertion Edema Foot pain, bilateral History of anemia History of back pain History of cataract History of diverticulitis Hypertension Migraine Multiple pulmonary nodules Osteoarthritis Ringing in ears Seasonal allergies Sinusitis, acute frontal Sleep apnea Urinary tract infection Wheezing Surgical History H/O: hysterectomy History of appendectomy History of carpal tunnel surgery of right wrist History of cataract surgery History of hip surgery History of left hip replacement Hx of cardiac cath Hx of cholecystectomy Hx of right coronary artery stent placement Hx of shoulder surgery Hx of vaginal surgery Family History Mother Rheumatoid aortitis Family/Other Heart attack Social History Smoking Status: Never smoker alcohol intake: never substance use type: denies use current occupational status: retired Travel in the last 8 weeks: None housing: house current occupational exposures/hazards: No caffeine: Yes ROS Obtained: Yes All systems reviewed & no additional complaints except as documented Physical Exam General General appearance: alert and in no apparent distress Head Head exam: atraumatic and normocephalic Eye Eye exam: Present normal appearance, PERRL and EOMI ENT ENT exam: Present mucous membranes moist Neck Neck exam: Present normal inspection, full ROM and trachea midline Respiratory Respiratory exam: Present normal lung sounds bilaterally; Absent respiratory distress, wheezes, stridor, accessory muscle use or prolonged expiratory phase Cardiovascular Cardiovascular exam: Present regular rate and normal rhythm Abdominal Exam Abdominal exam: Present soft; Absent distention, tenderness, guarding, rebound or rigidity Extremities Exam Extremities exam: Present other (Left lower extremity cellulitis with associated 2 cm wound medial aspect of left tib-fib proximally. Granulation tissue overlying. Cellulitis extends from knee distally to mid foot. No tenderness. Excoriations present.); Absent edema Neurological Exam Neurological exam: Present alert, oriented X3, CN II-XII intact and normal gait; Absent motor sensory deficit Skin Skin exam: Present warm and dry; Absent diaphoresis or erythema Medical Decision Making Medical Records Medical records reviewed: Yes I reviewed the patient's medical records. Agustin Inquiry Pt receiving controlled substance: No Agustin was queried for this patient: No Vital Signs: 08/13/23 08:47 Temperature 97.8 F Temperature Source Oral Pulse Rate [Left Radial] 102 H Respiratory Rate 16 Blood Pressure [Right Arm] 137/74 Blood Pressure Mean [Right Arm] 95 02 Sat by Pulse Oximetry 96 Oxygen Delivery Method Room Air Lab Data Lab Results 08/13/23 09:39: WBC 6.7, RBC 4.59, Hgb 14.9, Hct 44.9, MCV 97.9, MCH 32.4 H, M CHC 33.1, RDW 13.8, Plt Count 176, MPV 9.0, Neut % (Auto) 64.1, Lymph % (Auto) 19.6, [place] % (Auto) 5.2, Eos % (Auto) 10.7, Baso % (Auto) 0.4, Neut # (Auto) 4.3, Lymph # (Auto) 1.3, [place] # (Auto) 0.3, Eos # (Auto) 0.7 H, Baso # (Auto) 0.0, Lactate 1.1 08/13/23 09:39 Orders (Tests/Meds): ED MEDICATIONS Discontinued Medications Generic Name Dose Route Start Last Admin Trade Name Freq PRN Reason Stop Dose Admin Zinc Acetate/Diphenhydramine 2 gm 08/13/23 09:33 Diphenhydramine 2% Cream 28gm TP 08/13/23 09:34 ONCE ONE ORDERS Category Date Time Status CBC w/Auto Diff [Complete Blood Count Auto Diff] Stat Lab 08/13/23 09:39 Completed Lactic Acid Stat Lab 08/13/23 09:39 Completed Blood Culture Stat Micro 08/13/23 09:47 Received CA venous doppler LE LT Stat Y 08/13/23 09:36 Completed ECG initial [place] Routine Y 08/12/23 11:40 Completed Medical Decision Narrative: 78-year-old female with history of high blood pressure, paroxysmal tachycardia, CAD, generalized anxiety disorder presenting with left leg itching. Patient states that she has been seen, 1 day prior to arrival on 08/12 for left lower extremity swelling, redness, and infection. Workup yesterday was reviewed and largely nonactionable. Patient was diagnosed with cellulitis and given its size/surface area, was given dalbavancin. Patient presents today with severe itching preventing her from sleeping denies fevers or chills, nausea or vomiting. Patient states that she has had workup for fast heart rate, and just had heart monitor placed, this is under review as of last week and she has not received results from the study yet. States the the symptoms are no worse t norman typical. To be noted the patient has significant, persistent generalized anxiety disorder, which is complicating care. history was obtained via conversation with patient and , chart review. On arrival, patient hemodynamically stable, alert, oriented x4, appropriate, GCS 15, moving all extremities spontaneously, pupils equal and reactive to light. Full physical exam performed and significant for anxious appearing woman, but no acute distress. Nontachycardic, not hypotensive. Left lower extremity with large surface area cellulitis extending from left knee down to left foot with nonpitting edema. No tenderness.. Differential includes cellulitis, DVT, sepsis, among others. Patient was given Benadryl cream topically. for symptomatic management and correction of underlying abnormalities. Workup independently interpreted and significant for negative left lower extremity ultrasound. No leukocytosis. Lactate negative, patient blood cultures pending at time of discharge, but likely nonactionable. See radiology read for full review of final results. On reevaluation, patient resting comfortably, stating her back hurts and she would like to leave. Given patient presentation, workup, history, this most likely represents left lower extremity cellulitis after minor trauma. Because patient at baseline without signs or symptoms of clinical decompensation, deemed appropriate for discharge. Results were relayed to patient who voiced understanding and were agreeable to outpatient management and follow up. At the time of discharge the patient was hemodynamically stable, tolerating PO, and mobilizing appropriately. Critical Care Critical Care Time Critical Care Time: No
--- NOTE | 2023-08-13 09:36 | CA_ITS ---
FINAL REPORT TECHNIQUE: Color Doppler, duplex Doppler and compression sonography of the left lower extremity deep venous systems was performed. CLINICAL HISTORY: LLE swelling,REDNESS RIGHT HEBERT COMPARISON: None FINDINGS: There is no evidence of deep venous thrombosis from the level of the groin to the calf. The veins are patent and compressible. There is an enlarged left inguinal node which is likely reactive. IMPRESSION: No evidence of deep venous thrombosis left lower extremity. Reviewed, Interpreted and Dictated by Vijay Fox III, MD Transcribed by Jody Jeong Authenticated and [facility]
--- NOTE | 2023-08-13 09:44 | PC.NURSE ---
PT PLACED IN GOWN FOR DOPPLER VASCULAR NOTIFIED OF ORDER
[2023-08-13 10:03] LABS: Basophils % 0.4 % (0.1-2.0); Eosinophils # 0.7 K/mm3 (0.0-0.4); Eosinophils % 10.7 % (0.1-12.0); Hematocrit 44.9 % (37.0-47.0); Hemoglobin 14.9 g/dL (12.2-16.2); Lymphocytes # 1.3 K/mm3 (0.7-4.5); Lymphocytes % 19.6 % (10-50); Mean Corpuscular HGB Conc 33.1 g/dL (31.8-35.4); Mean Corpuscular Hemoglobin 32.4 pg (27.0-31.2); Mean Corpuscular Volume 97.9 fl (81-99); Monocytes # 0.3 K/mm3 (0.1-1.0); Monocytes % 5.2 % (1.7-9.3); Neutrophils # 4.3 K/mm3 (1.8-7.8); Neutrophils % 64.1 % (37.0-80.0); Platelet Count 176 K/mm3 (142-424); Red Blood Count 4.59 M/mm3 (4.20-5.40); Red Cell Distribution Width 13.8 % (11.5-17.5); White Blood Count 6.7 K/mm3 (4.8-10.8)
[2023-08-13 10:16] LABS: Lactic Acid 1.1 mmol/L (0.7-2.1)
--- NOTE | 2023-08-13 10:25 | PC.NURSE ---
spoke with christopher from vascular for status of venous doppler for pt, she reports she will be down.
--- NOTE | 2023-08-13 10:30 | PC.NURSE ---
US at bedside
--- NOTE | 2023-08-13 10:57 | PC.NURSE ---
Dr. Liriano at BS to update pt on results and POC
[2023-08-13] MEDS: DIPHENHYDRAMINE 2% CREAM 28GM TP (11:00)
[2023-08-13 11:18] VITALS: BP 116/64; PULSE 78; RESP 16; TEMP 36.7
== END 2023-08-13 11:18 | disposition home or self-care (01) ==
PROVIDERS: Emergency Provider Emergency Medicine; PCP Nurse Practitioner Family
DX: L03.116 Cellulitis of left lower limb (principal); R22.42 Localized swelling, mass and lump, left lower limb; I25.10 Atherosclerotic heart disease of native coronary artery without angina pectoris; J45.909 Unspecified asthma, uncomplicated; I10 Essential (primary) hypertension
CPT/HCPCS: 83605; 85025; 87040; 93005; 93971; 99285

== ENCOUNTER 2023-09-12 15:44 | Outpatient (CLI) | payer MEDICARE, SELFPAY ==
[2023-09-12 16:20] LABS: Basophils # 0.1 K/mm3 (0-0.2); Basophils % 1.1 % (0.1-2.0); Eosinophils # 0.4 K/mm3 (0.0-0.4); Eosinophils % 4.8 % (0.1-12.0); Hematocrit 43.8 % (37.0-47.0); Hemoglobin 14.7 g/dL (12.2-16.2); Lymphocytes # 1.8 K/mm3 (0.7-4.5); Lymphocytes % 22.9 % (10-50); Mean Corpuscular HGB Conc 33.6 g/dL (31.8-35.4); Mean Corpuscular Hemoglobin 32.8 pg (27.0-31.2); Mean Corpuscular Volume 97.5 fl (81-99); Mean Platelet Volume 8.8 fl (7.4-10.4); Monocytes # 0.4 K/mm3 (0.1-1.0); Monocytes % 5.2 % (1.7-9.3); Neutrophils # 5.2 K/mm3 (1.8-7.8); Neutrophils % 66.1 % (37.0-80.0); Platelet Count 187 K/mm3 (142-424); Red Blood Count 4.49 M/mm3 (4.20-5.40); Red Cell Distribution Width 13.9 % (11.5-17.5); White Blood Count 7.8 K/mm3 (4.8-10.8)
[2023-09-12 17:02] LABS: Alanine Aminotransferase 17 U/L (12-78); Albumin Level 4.1 g/dl (3.5-5.0); Alkaline Phosphatase 105 U/L (38-126); Anion Gap 10.8 mEq/L (5-15); Aspartate Amino Transferase 25 U/L (14-36); Bilirubin,Direct 0.1 mg/dl (0.0-0.4); Bilirubin,Indirect 0.4 mg/dL (0.0-0.9); Bilirubin,Total 0.5 mg/dl (0.2-1.3); Bilirubin,Unconjugated 0.4 mg/dL (0.0-1.1); Blood Urea Nitrogen 15 mg/dl (7-17); Calcium 9.5 mg/dl (8.4-10.2); Carbon Dioxide 28 mmol/L (22.0-30.0); Chloride 107 mmol/L (98-107); Chol/HDL Ratio 3.3 (1-3.5); Cholesterol 148 mg/dl (140-200); Estimated Glomerular Filt Rate 61 ml/min (>60); GFR (African American) 73 ML/MIN (>60); Glucose 88 mg/dl (74-100); HDL Cholesterol 45 mg/dl (40-60); Magnesium 2.2 mg/dl (1.6-2.3); Potassium 4.8 mmoL/L (3.5-5.1); Sodium 141 mmol/L (136-145); Total Protein,Serum 6.7 g/dl (6.3-8.2); Triglycerides 147 mg/dl (30-150); VLDL Cholesterol 29 mg/dL (0-40)
[2023-09-12 17:18] LABS: Free T4 (Free Thyroxine) 0.98 ng/dl (0.78-2.19)
== END 2023-09-12 23:59 ==
LOC: LAB 15:45
PROVIDERS: PCP Nurse Practitioner Family; Visit Provider Nurse Practitioner
DX: I25.10 Atherosclerotic heart disease of native coronary artery without angina pectoris (principal); I73.9 Peripheral vascular disease, unspecified; R00.2 Palpitations; R06.00 Dyspnea, unspecified; R42 Dizziness and giddiness; R53.83 Other fatigue
CPT/HCPCS: 36415; 80048; 80061; 80076; 83735; 84439; 84443; 85025; 93270

== ENCOUNTER 2023-09-25 00:31 | Emergency (ER) | payer MEDICARE, SELFPAY ==
--- NOTE | 2023-09-25 00:27 | ECG_ITS ---
APPROVED REPORT Exam: Resting ECG HR:98 bpm ECG Measurements Heart Rate 98 AXES IA 137 P 60 QRSd 89 QRS 37 QT 343 T 70 QTc 399 Conclusion SINUS RHYTHM NORMAL ECG UNCONFIRMED REPORT Electronically signed by : Khadar Quintana MD 09/25/2023 20:07:17
[2023-09-25 00:30] VITALS: BP 174/90; PULSE 99; RESP 16; O2SAT 94
[2023-09-25 00:42] VITALS: BP 174/90; PULSE 100; RESP 16; TEMP 37.4; O2SAT 94; BMI 34.0
--- NOTE | 2023-09-25 00:57 | ED_ITS ---
Discharge Plan Disposition Patient Disposition: Left Against Medical Advice Prescriptions Prescriptions: No Action metoprolol succinate 50 mg capsule,sprinkle,ER 24hr 50 mg PO DAILY potassium chloride [Klor-Con M20] 20 mEq tablet,ER particles/crystals 20 meq PO DAILY tramadol 50 mg tablet 50 mg PO QID PRN (Reason: Pain) sennosides [senna] 8.6 mg tablet 8.6 mg PO BID PRN (Reason: Constipation) albuterol sulfate 90 mcg/actuation HFA aerosol inhaler 2 inh inhalation Q6H PRN (Reason: shortness of breath or wheezing) 90 Days Qty: 8.5 2RF ipratropium-albuterol 0.5 mg-3 mg(2.5 mg base)/3 mL solution for nebulization 3 ml inhalation Q6H PRN (Reason: shortness of breath or wheezing) Qty: 180 3RF budesonide-formoterol [Symbicort] 160-4.5 mcg/actuation HFA aerosol inhaler See Rx Instructions .ROUTE .COMPLEX Qty: 11 0RF Dose Instruction: Inhale 2 puffs by mouth twice daily Rx Instructions: Inhale 2 puffs by mouth twice daily atorvastatin 20 mg tablet 20 mg PO HS clonazepam 0.5 mg tablet 0.5 mg PO BID PRN (Reason: Anxiety) Patient Comments: lisinopril 10 mg tablet 10 mg PO BID Patient Comments: TAKE 1 TABLET BY MOUTH TWICE DAILY nitrofurantoin monohyd/m-cryst 100 mg capsule 100 mg PO BID Patient Comments: TAKE 1 CAPSULE BY MOUTH TWICE DAILY FOR 7 DAYS trazodone 50 mg tablet 50 mg PO DAILY Patient Comments: TAKE 1 TABLET BY MOUTH ONCE DAILY AT BEDTIME furosemide 20 mg tablet 20 mg PO DAILY Patient Comments: TAKE 1 TABLET BY MOUTH ONCE DAILY NEEDED FOR SWELLING Referrals Follow up/Referrals: Khadar Quintana MD [Primary Care Provider] - See instructions Activity Restrictions/Add. Instructions Additional Instructions/Restrictions: Recommend taking 81 mg aspirin daily for stroke prevention. If you change your mind about having a stroke evaluation, recommend return to the emergency department immediately. Clinical Impressions Clinical Impression: Brain TIA, Generalized muscle weakness, Numbness on right side Discharge ED Provider: Garett Lucero General Adult HPI General Chief complaint: Arrhythmia/Palpitations Stated complaint: palpations, R sided numbness Time Seen by Provider: 09/25/23 00:44 Mode of Arrival: EMS Source of Information: Patient Limitations: No Limitations Description of Symptoms (Recalled from ER Triage Doc. by RN): Patient called EMS for Rapid heart rate and right side numbness. HR was 130 on EMS arrival. History of Present Illness HPI narrative: 78-year-old female with history as reported below presents with multiple complaints. She reports that she was sitting on her couch when she started noticing that her right arm was going numb. She then noticed that her right leg was also going numb. She denies any weakness in the limbs. She denies any speech difficulties confusion vision changes or other neurologic symptoms. She reports that the symptoms lasted for approximately 10 to 15 minutes. She then became anxious and felt like her heart rate was going higher. She also reports that she was sweating profusely. EMS was called, on arrival she was mildly tachycardic. Sinus rhythm. Patient reports multiple chronic issues including bilateral lower extremity numbness, generalized weakness, general feeling of unease. She reports that she was currently being treated for urinary tract infection and has 3 days left on her antibiotics. She is not sure what antibiotic she is taking. She denies any recent fever. She reports that she is being checked out for heart problems and has an appointment on Sunday of this week, in 2 days, with cardiology for further assessment. She reports no history of stroke or strokelike symptoms in the past. She reports that she has significant anxiety. She takes a statin, does not take aspirin. Related Data Home Medications Medication Instructions Recorded Confirmed metoprolol succinate 50 mg capsule 50 mg PO DAILY HTN 10/24/18 09/25/23 sprinkle, ext. release 24 hr potassium chloride 20 mEq 20 meq PO DAILY Supplement 10/24/18 09/25/23 tablet,extended release(part/cryst) (Klor-Con M) clonazepam 0.5 mg tablet 0.5 mg PO BID PRN Anxiety 02/26/19 09/25/23 sennosides 8.6 mg tablet (senna) 8.6 mg PO BID PRN Constipation 02/26/19 09/25/23 tramadol 50 mg tablet 50 mg PO QID PRN Pain 02/26/19 09/25/23 atorvastatin 20 mg tablet 20 mg PO HS Cholesterol 03/18/20 09/25/23 furosemide 20 mg tablet 20 mg PO DAILY 09/25/23 09/25/23 lisinopril 10 mg tablet 10 mg PO BID 09/25/23 09/25/23 nitrofurantoin 100 mg PO BID 09/25/23 09/25/23 monohydrate/macrocrystals 100 mg capsule trazodone 50 mg tablet 50 mg PO DAILY 09/25/23 09/25/23 Previous Rx's Medication Instructions Recorded albuterol sulfate 90 mcg/actuation 2 inh inhalation Q6H PRN shortness 02/07/23 aerosol inhaler of breath or wheezing 90 days #8.5 grams ipratropium 0.5 mg-albuterol 3 mg 3 ml inhalation Q6H PRN shortness 02/07/23 (2.5 mg base)/3 mL nebulization of breath or wheezing #180 mL soln Symbicort 160 mcg-4.5 See Rx Instructions .Route 09/21/23 mcg/actuation HFA aerosol inhaler .COMPLEX #11 grams (budesonide-formoterol) Allergies Allergy/AdvReac Type Severity Reaction Status Date / Time adhesive tape Allergy Severe Hives Verified 09/12/23 14:52 chlorhexidine Allergy Severe RASH Verified 09/12/23 14:52 [From Hibiclens] Iodinated Contrast Media Allergy Intermediate Unknown Verified 09/12/23 14:52 [IODINATED CONTRAST MEDIA - allergy IV DYE] reaction povidone-iodine Allergy Intermediate I-RASH Verified 09/12/23 14:52 [From BETADINE] cephalexin Allergy Unknown Unknown Verified 09/12/23 14:52 allergy reaction [facility] Disclaimer: The information contained in this section may have been updated after the patient was seen, as this information can be updated by other users. Medical History (Updated 09/25/23 @ 02:22 by Garett Lucero MD) Allergic rhinitis Anxiety Asthma Asthma Asthma Cataract Claudication Cough Dizziness Dyspnea Dyspnea on exertion Dyspnea on exertion Edema Fatigue Foot pain, bilateral History of anemia History of back pain History of cataract History of diverticulitis Hypertension Migraine Multiple pulmonary nodules Osteoarthritis Ringing in ears Seasonal allergies Sinusitis, acute frontal Sleep apnea Urinary tract infection Wheezing Surgical History H/O: hysterectomy History of appendectomy History of carpal tunnel surgery of right wrist History of cataract surgery History of hip surgery History of left hip replacement Hx of cardiac cath Hx of cholecystectomy Hx of right coronary artery stent placement Hx of shoulder surgery Hx of vaginal surgery Family History Mother Rheumatoid aortitis Family/Other Heart attack Social History Smoking Status: Never smoker alcohol intake: never substance use type: denies use current occupational status: retired Travel in the last 8 weeks: None housing: house current occupational exposures/hazards: No caffeine: Yes ROS Obtained: Yes All systems reviewed & no additional complaints except as documented Physical Exam General General appearance: alert and anxious Head Head exam: atraumatic and normocephalic Eye Eye exam: Present normal appearance, PERRL and EOMI ENT ENT exam: Present normal oropharynx and normal external ear exam Neck Neck exam: Present normal inspection and full ROM Chest Chest inspection: Present normal inspection and symmetric chest wall rise; Absent tenderness Respiratory Respiratory exam: Present normal lung sounds bilaterally; Absent respiratory distress Cardiovascular Cardiovascular exam: Present regular rate and normal rhythm Abdominal Exam Abdominal exam: Present soft; Absent distention, tenderness or guarding Extremities Exam Extremities exam: Present normal inspection; Absent edema or joint swelling Back Exam Back exam: Present normal inspection; Absent tenderness Neurological Exam Neurological exam: Present alert, oriented X3 and CN II-XII intact; Absent motor sensory deficit Psychiatric Psychiatric exam: Present agitated and anxious Skin Skin exam: Present warm, dry and normal color Lymphatic Lymphatic Findings: no adenopathy Medical Decision Making Medical Records Medical records reviewed: Yes I reviewed the patient's medical records. Agustin Inquiry Pt receiving controlled substance: No Agustin was queried for this patient: No Vital Signs: 09/25/23 00:42 09/25/23 00:30 09/25/23 01:00 Temperature 99.3 F Temperature Source Oral Pulse Rate 99 H 97 H Pulse Rate [Radial] 100 H Respiratory Rate 16 16 13 Blood Pressure 174/90 H 167/84 H Blood Pressure [Right Arm] 174/90 H Blood Pressure Mean [Right Arm] 118 Blood Pressure Source [Right Arm] Automatic Cuff Blood Pressure Position [Right Arm] Sitting 02 Sat by Pulse Oximetry 94 L 94 L 93 L Oxygen Delivery Method Room Air Room Air Room Air 09/25/23 01:30 Temperature Temperature Source Pulse Rate 97 H Pulse Rate [Radial] Respiratory Rate 20 Blood Pressure 164/82 H Blood Pressure [Right Arm] Blood Pressure Mean [Right Arm] Blood Pressure Source [Right Arm] Blood Pressure Position [Right Arm] 02 Sat by Pulse Oximetry 95 Oxygen Delivery Method Room Air Lab Data Lab results reviewed: Yes I reviewed the patient's lab results. Lab Results 09/25/23 00:38: WBC 7.5, RBC 4.51, Hgb 14.6, Hct 42.3, MCV 93.7, MCH 32.5 H, MCHC 34.7, RDW 13.5, Plt Count 195, MPV 9.0, Neut % (Auto) 62.3, Lymph % (Auto) 25.7, [place] % (Auto) 5.7, Eos % (Auto) 5.9, Baso % (Auto) 0.4, Neut # (Auto) 4.7, Lymph # (Auto) 1.9, [place] # (Auto) 0.4, Eos # (Auto) 0.5 H, Baso # (Auto) 0.0, Sodium 141, Potassium 3.5, Chloride 106, Carbon Dioxide 31 H, Anion Gap 7.5, BUN 10, Creatinine 0.70, Estimated Creat Clear 63, Estimated GFR 81, Est GFR (Afric an Amer) 98, Glucose 129 H, Calcium 9.2, Magnesium 2.2, Total Bilirubin 0.4, AST 28, ALT 23, Alkaline Phosphatase 134 H, Troponin I < 0.01, Total Protein 7.1, Albumin 4.0, Globulin 3.1, Albumin/Globulin Ratio 1.3, TSH 3.76, Thyroxine (T4) 10.0 09/25/23 00:52: SARS-CoV-2 (PCR) Not detected, Influenza A Untype (PCR) Not detected, Influenza Type B (PCR) Not detected 09/25/23 01:23: Urine Color Yellow, Urine Appearance Clear, Urine pH 5.5, Ur Specific [place] >= 1.030, Urine Protein Negative, Urine Glucose (UA) Negative, Urine Ketones Negative, Urine Blood 1+, Urine Nitrate Negative, Urine Bilirubin Negative, Urine Urobilinogen 0.2, Ur Leukocyte Esterase 2+ A 09/25/23 00:38 09/25/23 00:38 Orders (Tests/Meds): ED MEDICATIONS Discontinued Medications Generic Name Dose Route Start Last Admin Trade Name Freq PRN Reason Stop Dose Admin Aspirin 325 mg 09/25/23 01:49 Aspirin 325mg Tablet PO 09/25/23 01:50 ONCE ONE ORDERS Category Date Time Status CBC w/Auto Diff [Complete Blood Count Auto Diff] Stat Lab 09/25/23 00:38 Completed CMP [Comprehensive Metabolic Panel] Stat Lab 09/25/23 00:38 Completed Magnesium Stat Lab 09/25/23 00:38 Completed Rapid PCR Covid and Flu A/B Stat Lab 09/25/23 00:52 Completed T4 (Thyroxine) Stat Lab 09/25/23 00:38 Completed TSH [Thyroid Stimulating Hormone] Stat Lab 09/25/23 00:38 Completed Troponin I Q3H Lab 09/25/23 00:38 Completed Troponin I Q3H Lab 09/25/23 03:45 Ordered UA [Urinalysis and Microscopic] Stat Lab 09/25/23 01:23 Results Blood Culture Stat Micro 09/25/23 01:35 Received Urine Culture Stat Micro 09/25/23 01:23 Received ECG Data Tracing #1: I reviewed this ECG and interpreted as documented below: Sinus rhythm, rate of 98, no concerning ST or T wave changes, no evidence of arrhythmia ECG initial impression date: 09/25/23 ECG initial impression time: 00:27 HEART Score History (anamnesis): Slightly suspicious ECG: Normal Age: >65 years Risk factors: 1-2 risk factors Troponin: </= normal limit HEART Score: 3 Medical Decision Narrative: 78-year-old female, presentation complicated by history of hypertension, hyperlipidemia, multiple chronic conditions presents with transient left upper and left lower extremity numbness lasting approximate 15 minutes without other neurologic deficits.. History was obtained interactive discussion with patient, family, EMS. On arrival, patient is afebrile, mildly hypertensive, satting properly on room air, moving all extremities spontaneously. Full physical exam performed and significant for no focal neurologic deficit Differential includes but is not limited to TIA, stroke, electrolyte derangement, seizure, ACS, sepsis. I had extensive and repeated discussion with patient in the presence of her family regarding her presentation and my concern for TIA and potential for stroke or other serious issue. Patient reports that she has significant anxiety and she absolutely does not want to be admitted. She also refused to have CT scans and elected to start with blood work. Workup initiated including CBC CMP troponin TSH T4 UA, blood cultures On re-evaluation, patient [remains afebrile, HD stable.] Laboratory workup independently interpreted by me and significant no leukocytosis, normal renal function, no significant electrolyte derangement, normal glucose, initial troponin undetectably low. Given patient history, exam and workup, patient's presentation most likely represents TIA. I spoke with the patient and with the patient's family on mult iple occasions during ED stay and encouraged her to continue the workup with CT scans and admission for TIA. I explained to her that she is at increased risk of having a stroke over the next couple of days that could result in permanent disability or . She reports that she understands these risks but does not want to further workup or be admitted at this time. Patient was given full dose aspirin and instructed to start on 81 mg aspirin daily for stroke prophylaxis. She was instructed to return to the ER if she changed her mind. She was instructed to follow-up with PCP as soon as possible. Patient was discharged AMA. Procedures Risk/Benefits of Procedure(s) Were Explained: Yes Critical Care Critical Care Time Critical Care Time: Yes Attestation: On 09/25/23, the high probability of a clinically significant, sudden or life threatening deterioration of the following system(s) neurologic required my full and direct attention, intervention and personal management. The time I documented below is in addition to time spent performing reported procedures but includes the following listed in this critical care notation. Total Time Total Critical Care Time: 45
[2023-09-25 00:58] LABS: Basophils % 0.4 % (0.1-2.0); Eosinophils # 0.5 K/mm3 (0.0-0.4); Eosinophils % 5.9 % (0.1-12.0); Hematocrit 42.3 % (37.0-47.0); Hemoglobin 14.6 g/dL (12.2-16.2); Lymphocytes # 1.9 K/mm3 (0.7-4.5); Lymphocytes % 25.7 % (10-50); Mean Corpuscular HGB Conc 34.7 g/dL (31.8-35.4); Mean Corpuscular Hemoglobin 32.5 pg (27.0-31.2); Mean Corpuscular Volume 93.7 fl (81-99); Monocytes # 0.4 K/mm3 (0.1-1.0); Monocytes % 5.7 % (1.7-9.3); Neutrophils # 4.7 K/mm3 (1.8-7.8); Neutrophils % 62.3 % (37.0-80.0); Platelet Count 195 K/mm3 (142-424); Red Blood Count 4.51 M/mm3 (4.20-5.40); Red Cell Distribution Width 13.5 % (11.5-17.5); White Blood Count 7.5 K/mm3 (4.8-10.8)
[2023-09-25 00:59] LABS: Alanine Aminotransferase 23 U/L (12-78); Albumin/Globulin Ratio 1.3 (1.1-1.8); Alkaline Phosphatase 134 U/L (38-126); Anion Gap 7.5 mEq/L (5-15); Aspartate Amino Transferase 28 U/L (14-36); Bilirubin,Total 0.4 mg/dl (0.2-1.3); Blood Urea Nitrogen 10 mg/dl (7-17); Calcium 9.2 mg/dl (8.4-10.2); Carbon Dioxide 31 mmol/L (22.0-30.0); Chloride 106 mmol/L (98-107); Creatinine Clearance Estimated 63 mL/min (50-200); Estimated Glomerular Filt Rate 81 ml/min (>60); GFR (African American) 98 ML/MIN (>60); Globulin 3.1 g/dL (1.3-3.2); Glucose 129 mg/dl (74-100); Potassium 3.5 mmoL/L (3.5-5.1); Sodium 141 mmol/L (136-145); Total Protein,Serum 7.1 g/dl (6.3-8.2)
[2023-09-25 01:00] VITALS: BP 167/84; PULSE 97; RESP 13; O2SAT 93
[2023-09-25 01:00] LABS: Magnesium 2.2 mg/dl (1.6-2.3)
[2023-09-25 01:00] LABS: Coronavirus 19, PCR Not Detected (NotDetected); Influenza A, PCR Not Detected (NotDetected); Influenza B, PCR Not Detected (NotDetected)
[2023-09-25 01:12] LABS: Troponin I < 0.01 ng/ml (0.00-0.034)
[2023-09-25 01:30] VITALS: BP 164/82; PULSE 97; RESP 20; O2SAT 95
[2023-09-25 01:30] LABS: Thyroid Stimulating Hormone 3.76 uIU/mL (0.465-4.68)
[2023-09-25 01:34] LABS: Microscopic, Urine URINE MICROSCOPIC (MICROSCOPIC)
[2023-09-25 01:53] LABS: Appearance,Urine CLEAR (Clear); Bilirubin,Urine Negative (Negative); Blood, Urine 1+ (Negative); Color,Urine YELLOW (Yellow); Glucose,Urine (UA) Negative (Negative); Ketones,Urine Negative (Negative); Leukocyte Esterase,Urine 2+ (Negative); Nitrate,Urine Negative (Negative); PH,Urine 5.5 (5.0-8.5); Protein,Urine Negative (Negative); Specific Gravity, Urine >= 1.030 (1.005-1.030); Urobilinogen,Urine 0.2 EU/dl (0.2)
[2023-09-25 01:58] VITALS: BP 160/79; PULSE 87; RESP 19; TEMP 36.9; O2SAT 94
[2023-09-25 02:07] LABS: Bacteria,Urine 1+ /lpf
[2023-09-25] MEDS: ASPIRIN 325MG TABLET 325 MG PO (02:22)
--- NOTE | 2023-09-27 11:51 | PC.NURSE ---
discussed urine culture with , pt was currently taking macrobid from home before arrival to ER, prescribed on 09/20/23. NTD at this time.
== END 2023-09-25 02:30 | disposition left against medical advice (07) ==
PROVIDERS: Emergency Provider Emergency Medicine; PCP Internal Medicine Adolescent Medicine
DX: G45.9 Transient cerebral ischemic attack, unspecified (principal); R53.1 Weakness; R20.0 Anesthesia of skin; R00.0 Tachycardia, unspecified; R61 Generalized hyperhidrosis; J45.909 Unspecified asthma, uncomplicated; I10 Essential (primary) hypertension; G47.30 Sleep apnea, unspecified
CPT/HCPCS: 80053; 81001; 83735; 84436; 84443; 84484; 85025; 87040; 87086; 87636; 93005; 99291

== ENCOUNTER 2023-09-26 11:38 | Outpatient (CLI) | payer MEDICARE, SELFPAY ==
--- NOTE | 2023-09-26 | CA_ITS ---
APPROVED REPORT Exam: Pharmacologic Technologist: Nanette Olmedo, Ht: 5 ft 1 in Wt: 177 lbs BSA: 1.79 m2 HR: 87 bpm BP: 149/68 mmHg Rhythm: NSR, cannot R/O old anterior NH Medical History Medications: Metoprolol,,,,, Atorvastatin,,,,, Duoneb,,,,, ClonAZEPAM,,,,, SyMBICORT,,,,, Albuterol,,,,, Tramadol,,,,, BenzONATATE,,,,, AZelastine,,,,, ONdanESETRAN,,,,, Lisinopril HCTZ,,,,, SeNnosides,,,,, Cardiac Risk Factors: HTN, FHX of CAD Stress Test Details Test: LEXISCAN HR Resting HR: 84 bpm Max Heart Rate (APMHR): 143 bpm Max HR Achieved: 96 bpm Target HR (85% APMHR): 122 bpm % of APMHR: 67 Recovery HR: 91 bpm BP Resting BP: 149/68 mmHg Max BP: 158/62 mmHg Recovery BP: 149.0/71.0 mmHg ECG Resting ECG: NSR, cannot R/O old anterior NH Stress ECG: No significant ST changes Arrhythmia: None Clinical Exercise duration: 04:04 min Highest Stage Achieved: Stress ECG Conclusion During lexiscan pt experinced mild SOA and head discomfort. No CP noted. No arrhythmias noted. No significant ST changes. Conclusion: Unremarkable lexiscan stress. Myoview images reported separately. Test Summary REST . . . . . . . Sitting REST 04:05 . . 84 . 149/ 68 . . Stage 1 01:00 . . 95 . . . . Stage 2 01:00 . . 91 . 158/ 62 . . Stage 3 01:00 . . 88 . 149/ 63 . . Stage 4 01:00 . . 86 . . . . Stage 4 01:04 . . 86 . . . Stop exercise at 04:04 RECOVERY 01:00 . . 91 . 139/ 61 . . RECOVERY 02:00 . . 87 . 149/ 71 . . RECOVERY 03:00 . . 90 . 136/ 70 . . RECOVERY 03:15 . . 89 . 136/ 70 . . Electronically signed by : Roxann Malloy MD 09/30/2023 02:04:34
--- NOTE | 2023-09-26 11:39 | NM_ITS ---
APPROVED REPORT Exam: Nuclear Stress Test Indication: CAD, 1 STENT, HTN, HYPERLIPIDEMIA, SOB, PALPITATIONS, DIZZINESS, FATIGUE Patient Location: Outpatient Stress Tech: Nanette MÉNDEZ Tech:ARTHUR Hodges RT (R)(N)(M) Ht: 5 ft 1 in Wt: 170 lbs Bra Size: 38C HR: 84 bpm BP: 149/68 mmHg BSA: 1.76 m2 Rhythm: NSR TID: 1.11 BMI: 32.1 History: Coronary artery disease s/p 1 stent, dyspnea, palpitations Procedure: Patient received 0.4 mg of intravenous Lexiscan, resting heart rate 84 bpm, resting blood pressure 149/68 mmHg, with Lexiscan maximum heart rate achieved was 96 bpm which is % of the maximum predicted heart rate and blood pressure was 158/62 mmHg. With Lexiscan, patient denied any complaint of chest pain. Cardiac Stress and Resting SPECT Images: Cardiac Stress and Resting SPECT images were obtained using technetium 99m Myoview 32.4 mCi stress and 10.97 mCi at rest. The patient could not lie on her abdomen. Therefore, prone stress imaging could not be performed. This may affect the diagnostic interpretation of the study findings. Resting and stress imaging in supine positions demonstrate no evidence of fixed or reversible perfusion defects. Gated imaging demonstrates normal global and regional LV systolic function. LVEF is calculated at 67%. Conclusion: No evidence of fixed or reversible perfusion defects. Gated imaging demonstrates normal global and regional LV systolic function. LVEF is calculated at 67%. Electronically signed by : Roxann Malloy MD 09/30/2023 02:06:31
--- NOTE | 2023-09-26 11:40 | CA_ITS ---
APPROVED REPORT EXAM: Comprehensive 2D, Doppler, and color-flow Echocardiogram Manager Media Relations: Pati Walden RVT Ht: 5 ft 1 in Wt: 177lbs BSA: 1.79 BP: 182/80 mmHg Indications: CAD,PALPS,CP,FATIGUE 2D Dimensions LA Volume 40.20 mL LA Volume Index 22.33 mL/m2 (M/F) 16-34 M-Mode Dimensions RVDd 2.88 cm (0.9-2.6) LA Diam 3.58 cm (1.9-4.0) LVDd 4.33 cm (3.5-5.7) LVDs 3.01 cm (3.5-5.7) IVSd 1.10 cm (0.6-1.1) PWd 0.59 cm (0.6-1.1) EF (Teich) 58.20% FS 30.50% EDV (Teich) 84.40 mL ESV (Teich) 35.30 mL LV Diastology E Decel Time 260 (160-240 msec) E/A Ratio 0.6 Aortic Valve BROOKE Index 2.31 cm2/m2 AoV Peak Kiko. 131.0 (50-130 cm/s) AO Peak GR. 6.80 mmHg AO Mean GR. 4.00 (<5 mmHg) AO VTI 27.7 (18-25 cm) BROOKE (VTI) 4.25 (2.5-4.5 cm2) Mitral Valve MV E Max Kiko. 76.0 (40-130 cm/s) MV A Velocity 126.0 (40-130 cm/s) E/A Ratio 0.60 MV PHT 76.0 ms Pulmonary Valve PV Peak Velocity 95.0 (50-150 cm/s) Tricuspid Valve TR P. Velocity 260.00 cm/s RAP Estimate 10.00 mmHg RVSP 37.10 mmHg Left Ventricle The left ventricle is normal size. The left ventricular systolic function is normal. The left ventricular ejection fraction is within the normal range. There is increased LV wall thickness (IVSd 1.4 cm). There is normal LV segmental wall motion. Transmitral Doppler flow pattern suggests impaired LV relaxation. LVEF is 60-65%. Right Ventricle The right ventricle is not well visualized, but appears to be mildly dilated. The right ventricular systolic function is normal. Atria The left atrium size is normal. The right atrium size is normal. There is no Doppler evidence of interatrial shunt. Aortic Valve The aortic valve is mildly thickened. There is no aortic valvular stenosis. Trace aortic regurgitation. Mitral Valve The mitral valve is mildly thickened. No evidence of mitral valve stenosis. Trace mitral regurgitation. Tricuspid Valve The tricuspid valve leaflets are thin and pliable. Trace tricuspid regurgitation. There is insufficient TR jet to estimate RVSP. Pulmonic Valve The pulmonary valve is normal in structure. Mild pulmonic regurgitation. Great Vessels The aortic root is normal in size. The ascending aorta is normal in size. IVC is normal in size and collapses >50% with inspiration. Pericardium There is no pericardial effusion. Other Information Study Quality: Technically Difficult Conclusion Technically difficult due to poor accoustic windows. Normal biventricular systolic function. Increased LV wall thickness (IVSd 1.4 cm). The right ventricle is not well visualized, but appears to be mildly dilated. No significant valvular stenosis or regurgitation. In the setting of markedly increased LV wall thickness, further evaluation to rule out infiltrative cardiomyopathy is recommended with cardiac MRI (amyloidosis protocol) + PYP nuclear scan + lab testing for amyloidosis. Electronically signed by : Roxann Malloy MD 09/29/2023 16:16:02
--- NOTE | 2023-09-26 11:40 | US_ITS ---
FINAL REPORT CLINICAL HISTORY: cladication, cad COMPARISON: None FINDINGS: ANKLE-BRACHIAL PRESSURE INDICES Pressure indices are as follows: RIGHT LOWER EXTREMITY: Ankle-brachial pressure index: 1.1 Comments: Normal LEFT LOWER EXTREMITY: Ankle-brachial pressure index: 1.2 Comments: Normal IMPRESSION: No evidence of significant obstructive peripheral vascular disease of the lower extremities Reviewed, Interpreted and Dictated by Duncan House MD Transcribed by Jody Jeong Authenticated and [facility]
== END 2023-09-26 23:59 ==
LOC: RAD 11:39
PROVIDERS: PCP Nurse Practitioner Family; Visit Provider Nurse Practitioner
DX: I25.10 Atherosclerotic heart disease of native coronary artery without angina pectoris (principal); I73.9 Peripheral vascular disease, unspecified; R00.2 Palpitations; R06.00 Dyspnea, unspecified; R42 Dizziness and giddiness; R53.83 Other fatigue
CPT/HCPCS: 78452; 93017; 93018; 93306; 93923

== ENCOUNTER 2023-11-08 15:33 | Emergency (ER) | payer MEDICARE, SELFPAY ==
--- NOTE | 2023-11-08 15:38 | [facility].EDGENADL ---
Discharge Plan Disposition Patient Disposition: Home, Self-Care Prescriptions Prescriptions: New dexamethasone 6 mg tablet 6 mg PO DAILY Qty: 5 0RF dexamethasone 6 mg tablet 6 mg PO DAILY Qty: 5 0RF No Action metoprolol succinate 50 mg capsule,sprinkle,ER 24hr 50 mg PO DAILY potassium chloride [Klor-Con M20] 20 mEq tablet,ER particles/crystals 20 meq PO DAILY tramadol 50 mg tablet 50 mg PO QID PRN (Reason: Pain) sennosides [senna] 8.6 mg tablet 8.6 mg PO BID PRN (Reason: Constipation) albuterol sulfate 90 mcg/actuation HFA aerosol inhaler 2 inh inhalation Q6H PRN (Reason: shortness of breath or wheezing) 90 Days Qty: 8.5 2RF ipratropium-albuterol 0.5 mg-3 mg(2.5 mg base)/3 mL solution for nebulization 3 ml inhalation Q6H PRN (Reason: shortness of breath or wheezing) Qty: 180 3RF budesonide-formoterol [Symbicort] 160-4.5 mcg/actuation HFA aerosol inhaler See Rx Instructions .ROUTE .COMPLEX Qty: 11 0RF Dose Instruction: Inhale 2 puffs by mouth twice daily Rx Instructions: Inhale 2 puffs by mouth twice daily atorvastatin 20 mg tablet 20 mg PO HS clonazepam 0.5 mg tablet 0.5 mg PO BID PRN (Reason: Anxiety) Patient Comments: lisinopril 10 mg tablet 10 mg PO BID Patient Comments: TAKE 1 TABLET BY MOUTH TWICE DAILY nitrofurantoin monohyd/m-cryst 100 mg capsule 100 mg PO BID Patient Comments: TAKE 1 CAPSULE BY MOUTH TWICE DAILY FOR 7 DAYS trazodone 50 mg tablet 50 mg PO DAILY Patient Comments: TAKE 1 TABLET BY MOUTH ONCE DAILY AT BEDTIME furosemide 20 mg tablet 20 mg PO DAILY Patient Comments: TAKE 1 TABLET BY MOUTH ONCE DAILY NEEDED FOR SWELLING Referrals Follow up/Referrals: Khadar Quintana MD [Primary Care Provider] - See instructions Activity Restrictions/Add. Instructions Additional Instructions/Restrictions: Call your family doctor to establish care for this visit to the emergency department and schedule follow-up within 48 hours to ensure improvement. If you have any worsening of your condition or any other concerning signs or symptoms, return to the emergency department or your primary care doctor for further evaluation. Talk to your family doctor about hydrochlorothiazide instead of furosemide to help with symptoms. Clinical Impressions Clinical Impression: Tinnitus Discharge ED Provider: Andrea Liriano General Adult HPI General Stated complaint: poss tinnitus Time Seen by Provider: 11/08/23 15:37 History of Present Illness HPI narrative: 78-year-old female history of dementia, hypertension, hyperlipidemia CKD, CAD, IBS, IBD, LAURA, M?ni?re disease and chronic tinnitus, presenting with tinnitus. Patient states that she has had changes in her clonazepam recently. She has had ringing in her ears that is gotten worse for the past few days. No neurologic deficits otherwise. It is keeping her from sleeping, causing confusion, and preventing her from thinking straight. States that usually steroid works, she has not been able to get into her family doctor in order to seek care. Has seen multiple sql report analyst without relief Please note that above description of symptoms, in this electronic medical record under categorization of recalled from ER triage doctor by RN are reflective of an initial nursing assessment, however, is not reflective of my full history and physical exam that was personally taken and clarified. Consequentially, this preceding description of symptoms, which may include the patient's categorized chief complaint in the EMR, do not reflect my personal clinical impression, and the ultimate description of history of present illness and patient stated complaints should be deferred to this section of the note. Unless stated otherwise or congruent with this section of the note, additional signs, symptoms, or incongruence should be interpreted as inaccurate with my clinical impression. Related Data Home Medications Medication Instructions Recorded Confirmed metoprolol succinate 50 mg capsule 50 mg PO DAILY HTN 10/24/18 09/25/23 sprinkle, ext. release 24 hr potassium chloride 20 mEq 20 meq PO DAILY Supplement 10/24/18 09/25/23 tablet,extended release(part/cryst) (Klor-Con M) clonazepam 0.5 mg tablet 0.5 mg PO BID PRN Anxiety 02/26/19 09/25/23 sennosides 8.6 mg tablet (senna) 8.6 mg PO BID PRN Constipation 02/26/19 09/25/23 tramadol 50 mg tablet 50 mg PO QID PRN Pain 02/26/19 09/25/23 atorvastatin 20 mg tablet 20 mg PO HS Cholesterol 03/18/20 09/25/23 furosemide 20 mg tablet 20 mg PO DAILY 09/25/23 09/25/23 lisinopril 10 mg tablet 10 mg PO BID 09/25/23 09/25/23 nitrofurantoin 100 mg PO BID 09/25/23 09/25/23 monohydrate/macrocrystals 100 mg capsule trazodone 50 mg tablet 50 mg PO DAILY 09/25/23 09/25/23 Previous Rx's Medication Instructions Recorded albuterol sulfate 90 mcg/actuation 2 inh inhalation Q6H PRN shortness 02/07/23 aerosol inhaler of breath or wheezing 90 days #8.5 grams ipratropium 0.5 mg-albuterol 3 mg 3 ml inhalation Q6H PRN shortness 02/07/23 (2.5 mg base)/3 mL nebulization of breath or wheezing #180 mL soln Symbicort 160 mcg-4.5 See Rx Instructions .Route 09/21/23 mcg/actuation HFA aerosol inhaler .COMPLEX #11 grams (budesonide-formoterol) dexamethasone 6 mg tablet 6 mg PO DAILY #5 tabs 11/08/23 dexamethasone 6 mg tablet 6 mg PO DAILY #5 tabs 11/08/23 Allergies Allergy/AdvReac Type Severity Reaction Status Date / Time adhesive tape Allergy Severe Hives Verified 09/12/23 14:52 chlorhexidine Allergy Severe RASH Verified 09/12/23 14:52 [From Hibiclens] Iodinated Contrast Media Allergy Intermediate Unknown Verified 09/12/23 14:52 [IODINATED CONTRAST MEDIA - allergy IV DYE] reaction povidone-iodine Allergy Intermediate I-RASH Verified 09/12/23 14:52 [From BETADINE] cephalexin Allergy Unknown Unknown Verified 09/12/23 14:[address] [facility] Disclaimer: The information contained in this section may have been updated after the patient was seen, as this information can be updated by other users. Medical History (Updated 11/08/23 @ 15:55 by Andrea Liriano MD) Claudication Dyspnea Fatigue Asthma Cough Allergic rhinitis Dyspnea on exertion Sinusitis, acute frontal Ringing in ears Cataract Urinary tract infection Sleep apnea Asthma Migraine Anxiety Osteoarthritis History of back pain History of diverticulitis History of cataract Edema History of anemia Foot pain, bilateral Multiple pulmonary nodules Asthma Seasonal allergies Wheezing Dyspnea on exertion Hypertension Dizziness Surgical History History of left hip replacement Hx of right coronary artery stent placement Hx of vaginal surgery Hx of shoulder surgery History of carpal tunnel surgery of right wrist History of appendectomy History of cataract surgery Hx of cardiac cath History of hip surgery H/O: hysterectomy Hx of cholecystectomy Family History Mother Rheumatoid aortitis Family/Other Heart attack Social History Smoking Status: Never smoker alcohol intake: never substance use type: denies use current occupational status: retired Travel in the last 8 weeks: None housing: house current occupational exposures/hazards: No caffeine: Yes ROS Obtained: Yes All systems reviewed & no additional complaints except as documented Physical Exam General General appearance: alert and in no apparent distress Head Head exam: atraumatic and normocephalic Eye Eye exam: Present normal appearance, PERRL and EOMI ENT ENT exam: Present mucous membranes moist Neck Neck exam: Present normal inspection, full ROM and trachea midline Respiratory Respiratory exam: Absent respiratory distress, wheezes, stridor, accessory muscle use or prolonged expiratory phase Cardiovascular Cardiovascular exam: Present normal rhythm Abdominal Exam Abdominal exam: Present soft; Absent distention, tenderness, guarding, rebound or rigidity Extremities Exam Extremities exam: Absent edema Neurological Exam Neurological exam: Present alert, oriented X3, CN II-XII intact and normal gait; Absent motor sensory deficit Skin Skin exam: Present warm and dry; Absent diaphoresis or erythema Medical Decision Making Medical Records Medical records reviewed: Yes I reviewed the patient's medical records. Agustin Inquiry Pt receiving controlled substance: No Agustin was queried for this patient: No Orders (Tests/Meds): ED MEDICATIONS Discontinued Medications Generic Name Dose Route Start Last Admin Trade Name Freq PRN Reason Stop Dose Admin Dexamethasone Sodium Phosphate 10 mg 11/08/23 15:49 Dexamethasone 4mg/Ml 1ml Vial IV 11/08/23 15:50 ONCE ONE Medical Decision Narrative: 78-year-old female history of dementia, hypertension, hyperlipidemia CKD, CAD, IBS, IBD, LAURA, M?ni?re disease and chronic tinnitus, presenting with tinnitus. Patient states that she has had changes in her clonazepam recently. She has had ringing in her ears that is gotten worse for the past few days. No neurologic deficits otherwise. It is keeping her from sleeping, causing confusion, and preventing her from thinking straight. States that usually steroid works, she has not been able to get into her family doctor in order to seek care. Has seen multiple sql report analyst without relief. History obtained with patient. Because patient so well-appearing, no workup needed at this time. NIHSS 0. Decadron 10 mg IM to be administered. Decadron to be sent to her pharmacy of choice. It was recommended that she follow-up with her family doctor regarding hypertensive patient, possible addition of diuretic, as she states she is not currently on 1, to trial and see if that helps with her tinnitus. Patient to be sent home with 5-day Decadron prescription. Because patient at baseline without signs or symptoms of clinical decompensation, deemed appropriate for discharge. Results were relayed to patient who voiced understanding and were agreeable to outpatient management and follow up. I discussed my clinical impression with patient and answered all questions. At this time, the evidence for any other entities in the differential is insufficient to warrant any further testing or ED observation. This was explained as well. Advisory was given that persistent or worsening symptoms require further evaluation. I confirmed the understanding of this discussion. Critical Care Critical Care Time Critical Care Time: No
[2023-11-08 15:52] VITALS: BP 171/77; PULSE 97; RESP 20; TEMP 36.8; O2SAT 98; BMI 35.2
[2023-11-08] MEDS: DEXAMETHASONE 4MG/ML 1ML VIAL 10 MG IV (16:08)
[2023-11-08 16:16] VITALS: BP 183/61; PULSE 94; RESP 16; TEMP 36.8; O2SAT 95
== END 2023-11-08 16:17 | disposition home or self-care (01) ==
PROVIDERS: Emergency Provider Emergency Medicine; PCP Internal Medicine Adolescent Medicine
DX: H93.19 Tinnitus, unspecified ear (principal); I11.9 Hypertensive heart disease without heart failure; E78.5 Hyperlipidemia, unspecified; I25.10 Atherosclerotic heart disease of native coronary artery without angina pectoris; N18.9 Chronic kidney disease, unspecified; Z95.5 Presence of coronary angioplasty implant and graft
CPT/HCPCS: 96374; 99284

== ENCOUNTER 2023-11-08 16:53 | Emergency (ER) | payer MEDICARE, SELFPAY ==
--- NOTE | 2023-11-08 17:05 | HMH.EDGENADL ---
Discharge Plan Disposition Patient Disposition: Home, Self-Care Prescriptions Prescriptions: No Action metoprolol succinate 50 mg capsule,sprinkle,ER 24hr 50 mg PO DAILY potassium chloride [Klor-Con M20] 20 mEq tablet,ER particles/crystals 20 meq PO DAILY tramadol 50 mg tablet 50 mg PO QID PRN (Reason: Pain) sennosides [senna] 8.6 mg tablet 8.6 mg PO BID PRN (Reason: Constipation) albuterol sulfate 90 mcg/actuation HFA aerosol inhaler 2 inh inhalation Q6H PRN (Reason: shortness of breath or wheezing) 90 Days Qty: 8.5 2RF ipratropium-albuterol 0.5 mg-3 mg(2.5 mg base)/3 mL solution for nebulization 3 ml inhalation Q6H PRN (Reason: shortness of breath or wheezing) Qty: 180 3RF budesonide-formoterol [Symbicort] 160-4.5 mcg/actuation HFA aerosol inhaler See Rx Instructions .ROUTE .COMPLEX Qty: 11 0RF Dose Instruction: Inhale 2 puffs by mouth twice daily Rx Instructions: Inhale 2 puffs by mouth twice daily atorvastatin 20 mg tablet 20 mg PO HS clonazepam 0.5 mg tablet 0.5 mg PO BID PRN (Reason: Anxiety) Patient Comments: lisinopril 10 mg tablet 10 mg PO BID Patient Comments: TAKE 1 TABLET BY MOUTH TWICE DAILY nitrofurantoin monohyd/m-cryst 100 mg capsule 100 mg PO BID Patient Comments: TAKE 1 CAPSULE BY MOUTH TWICE DAILY FOR 7 DAYS trazodone 50 mg tablet 50 mg PO DAILY Patient Comments: TAKE 1 TABLET BY MOUTH ONCE DAILY AT BEDTIME furosemide 20 mg tablet 20 mg PO DAILY Patient Comments: TAKE 1 TABLET BY MOUTH ONCE DAILY NEEDED FOR SWELLING dexamethasone 6 mg tablet 6 mg PO DAILY Qty: 5 0RF dexamethasone 6 mg tablet 6 mg PO DAILY Qty: 5 0RF Referrals Follow up/Referrals: Khadar Quintana MD [Primary Care Provider] - See instructions Activity Restrictions/Add. Instructions Additional Instructions/Restrictions: Follow-up with your family doctor regarding this visit to the emergency department. Clinical Impressions Clinical Impression: Bilateral tinnitus Discharge ED Provider: Andrea Liriano General Adult HPI General Stated complaint: Ringing in ears Time Seen by Provider: 11/08/23 17:03 History of Present Illness HPI narrative: 78-year-old female history of chronic tinnitus presenting with tinnitus. Patient was seen about 20 minutes ago in the emergency department for the similar complaint. It was explained to her that tinnitus is not something that can be acutely treated. She needs to follow-up with her family doctor as well as otolaryngology. Patient voiced her understanding. Patient left the emergency department and shortly thereafter returned here to the ER because her tinnitus was not gone. Reassurance and recommendations for outpatient follow-up given. Please note that above description of symptoms, in this electronic medical record under categorization of recalled from ER triage doctor by RN are reflective of an initial nursing assessment, however, is not reflective of my full history and physical exam that was personally taken and clarified. Consequentially, this preceding description of symptoms, which may include the patient's categorized chief complaint in the EMR, do not reflect my personal clinical impression, and the ultimate description of history of present illness and patient stated complaints should be deferred to this section of the note. Unless stated otherwise or congruent with this section of the note, additional signs, symptoms, or incongruence should be interpreted as inaccurate with my clinical impression. Related Data Home Medications Medication Instructions Recorded Confirmed metoprolol succinate 50 mg capsule 50 mg PO DAILY HTN 10/24/18 09/25/23 sprinkle, ext. release 24 hr potassium chloride 20 mEq 20 meq PO DAILY Supplement 10/24/18 09/25/23 tablet,extended release(part/cryst) (Klor-Con M) clonazepam 0.5 mg tablet 0.5 mg PO BID PRN Anxiety 02/26/19 09/25/23 sennosides 8.6 mg tablet (senna) 8.6 mg PO BID PRN Constipation 02/26/19 09/25/23 tramadol 50 mg tablet 50 mg PO QID PRN Pain 02/26/19 09/25/23 atorvastatin 20 mg tablet 20 mg PO HS Cholesterol 03/18/20 09/25/23 furosemide 20 mg tablet 20 mg PO DAILY 09/25/23 09/25/23 lisinopril 10 mg tablet 10 mg PO BID 09/25/23 09/25/23 nitrofurantoin 100 mg PO BID 09/25/23 09/25/23 monohydrate/macrocrystals 100 mg capsule trazodone 50 mg tablet 50 mg PO DAILY 09/25/23 09/25/23 Previous Rx's Medication Instructions Recorded albuterol sulfate 90 mcg/actuation 2 inh inhalation Q6H PRN shortness 02/07/23 aerosol inhaler of breath or wheezing 90 days #8.5 grams ipratropium 0.5 mg-albuterol 3 mg 3 ml inhalation Q6H PRN shortness 02/07/23 (2.5 mg base)/3 mL nebulization of breath or wheezing #180 mL soln Symbicort 160 mcg-4.5 See Rx Instructions .Route 09/21/23 mcg/actuation HFA aerosol inhaler .COMPLEX #11 grams (budesonide-formoterol) dexamethasone 6 mg tablet 6 mg PO DAILY #5 tabs 11/08/23 dexamethasone 6 mg tablet 6 mg PO DAILY #5 tabs 11/08/23 Allergies Allergy/AdvReac Type Severity Reaction Status Date / Time adhesive tape Allergy Severe Hives Verified 09/12/23 14:52 chlorhexidine Allergy Severe RASH Verified 09/12/23 14:52 [From Hibiclens] Iodinated Contrast Media Allergy Intermediate Unknown Verified 09/12/23 14:52 [IODINATED CONTRAST MEDIA - allergy IV DYE] reaction povidone-iodine Allergy Intermediate I-RASH Verified 09/12/23 14:52 [From BETADINE] cephalexin Allergy Unknown Unknown Verified 09/12/23 14:52 allergy reaction [facility] Disclaimer: The information contained in this section may have been updated after the patient was seen, as this information can be updated by other users. Medical History (Updated 11/08/23 @ 17:08 by Andrea Liriano MD) Claudication Dyspnea Fatigue Asthma Cough Allergic rhinitis Dyspnea on exertion Sinusitis, acute frontal Ringing in ears Cataract Urinary tract infection Sleep apnea Asthma Migraine Anxiety Osteoarthritis History of back pain History of diverticulitis History of cataract Edema History of anemia Foot pain, bilateral Multiple pulmonary nodules Asthma Seasonal allergies Wheezing Dyspnea on exertion Hypertension Dizziness Surgical History History of left hip replacement Hx of right coronary artery stent placement Hx of vaginal surgery Hx of shoulder surgery History of carpal tunnel surgery of right wrist History of appendectomy History of cataract surgery Hx of cardiac cath History of hip surgery H/O: hysterectomy Hx of cholecystectomy Family History Mother Rheumatoid aortitis Family/Other Heart attack Social History Smoking Status: Never smoker alcohol intake: never substance use type: denies use current occupational status: retired Travel in the last 8 weeks: None housing: house current occupational exposures/hazards: No caffeine: Yes ROS Obtained: Yes All systems reviewed & no additional complaints except as documented Physical Exam General General appearance: alert and in no apparent distress Head Head exam: atraumatic and normocephalic Eye Eye exam: Present normal appearance, PERRL and EOMI ENT ENT exam: Present mucous membranes moist Neck Neck exam: Present normal inspection, full ROM and trachea midline Respiratory Respiratory exam: Absent respiratory distress, wheezes, stridor, accessory muscle use or prolonged expiratory phase Cardiovascular Cardiovascular exam: Present normal rhythm Abdominal Exam Abdominal exam: Present soft; Absent distention, tenderness, guarding, rebound or rigidity Extremities Exam Extremities exam: Absent edema Neurological Exam Neurological exam: Present alert, oriented X3, CN II-XII intact and normal gait; Absent motor sensory deficit Skin Skin exam: Present warm and dry; Absent diaphoresis or erythema Medical Decision Making Medical Records Medical records reviewed: Yes I reviewed the patient's medical records. Agustin Inquiry Pt receiving controlled substance: No Agustin was queried for this patient: No Medical Decision Narrative: 78-year-old female history of chronic tinnitus presenting with tinnitus. Patient was seen about 20 minutes ago in the emergency department for the similar complaint. It was explained to her that tinnitus is not something that can be acutely treated. She needs to follow-up with her family doctor as well as otolaryngology. Patient voiced her understanding. Patient left the emergency department and shortly thereafter returned here to the ER because her tinnitus was not gone. Reassurance and recommendations for outpatient follow-up given. Exam unchanged from just recently. Because patient at baseline without signs or symptoms of clinical decompensation, deemed appropriate for discharge. Results were relayed to patient who voiced understanding and were agreeable to outpatient management and follow up. I discussed my clinical impression with patient and answered all questions. At this time, the evidence for any other entities in the differential is insufficient to warrant any further testing or ED observation. This was explained as well. Advisory was given that persistent or worsening symptoms require further evaluation. I confirmed the understanding of this discussion. Critical Care Critical Care Time Critical Care Time: No
[2023-11-08 17:22] VITALS: BP 183/61; PULSE 94; RESP 20; TEMP 36.6; O2SAT 98; BMI 35.2
[2023-11-08 17:31] VITALS: BP 177/60; PULSE 91; RESP 20; TEMP 36.6; O2SAT 99
== END 2023-11-08 17:32 | disposition home or self-care (01) ==
PROVIDERS: Emergency Provider Emergency Medicine; PCP Internal Medicine Adolescent Medicine
DX: H93.13 Tinnitus, bilateral (principal)
CPT/HCPCS: 99281

== ENCOUNTER 2023-12-02 18:08 | Emergency (ER) | payer MEDICARE, SELFPAY ==
[2023-12-02 18:30] LABS: Apearance,Urine Cloudy (Clear); Bilirubin,Urine Negative (Negative); Blood, Urine Trace (Negative); Color,Urine Yellow (Yellow); Glucose,Urine (UA) Negative (Negative); Ketones,Urine Negative (Negative); Protein,Urine Negative (Negative); UTC Leukocyte Esterase,Urine Trace (Negative); UTC Nitrate,Urine Negative (Negative); Urobilinogen,Urine 0.2 EU/dl (0.2)
[2023-12-02 18:45] VITALS: BP 148/72; PULSE 81; RESP 18; TEMP 36.7; O2SAT 98; BMI 30.8
--- NOTE | 2023-12-02 19:00 | EXP.UTC ---
Discharge Plan Disposition Patient Disposition: Home, Self-Care Condition: Good Prescriptions Prescriptions: New nystatin 100,000 unit/gram ointment 1 applic topical TID PRN (Reason: vaginal irritation) Qty: 30 0RF No Action potassium chloride [Klor-Con M20] 20 mEq tablet,ER particles/crystals 20 meq PO DAILY tramadol 50 mg tablet 50 mg PO QID PRN (Reason: Pain) sennosides [senna] 8.6 mg tablet 8.6 mg PO BID PRN (Reason: Constipation) albuterol sulfate 90 mcg/actuation HFA aerosol inhaler 2 inh inhalation Q6H PRN (Reason: shortness of breath or wheezing) 90 Days Qty: 8.5 2RF lisinopril 20 mg tablet 20 mg PO BID 30 Days Qty: 60 2RF Rx Instructions: BID dosing, 1 1/2 tablets (30mg) in AM, 1 tablet (20mg) in PM ipratropium-albuterol 0.5 mg-3 mg(2.5 mg base)/3 mL solution for nebulization 3 ml inhalation Q6H PRN (Reason: shortness of breath or wheezing) Qty: 180 3RF buspirone 7.5 mg tablet 7.5 mg PO BID 30 Days Qty: 60 2RF quetiapine [Seroquel] 50 mg tablet 50 mg PO HS 30 Days Qty: 30 2RF budesonide-formoterol [Symbicort] 160-4.5 mcg/actuation HFA aerosol inhaler See Rx Instructions .ROUTE .COMPLEX Qty: 11 0RF Dose Instruction: Inhale 2 puffs by mouth twice daily Rx Instructions: Inhale 2 puffs by mouth twice daily atorvastatin 20 mg tablet 20 mg PO HS furosemide 20 mg tablet 20 mg PO DAILY Patient Comments: TAKE 1 TABLET BY MOUTH ONCE DAILY NEEDED FOR SWELLING Referrals Follow up/Referrals: Kathleen Sanderson APRN [Primary Care Provider] - See instructions Activity Restrictions/Add. Instructions Additional Instructions/Restrictions: Use topical ointment as prescribed Follow up with your Family Doctor if no improvement or any worsening of symptoms Your Urine culture should be back in the next 3-5 days make sure to follow up to get the results and medication if needed Loose clothing may help with discomfort Follow up with OBGYN Clinical Impressions Clinical Impression: Candidal skin infection Instructions Patient Instructions: Nystatin Topical, Nystatin Discharge ED Provider: Alice Baum [facility] [place] HPI General Stated complaint: burningwith urination,blisters Mode of Arrival: Ambulatory Source of Information: Patient Limitations: No Limitations Time Seen by Provider: 12/02/23 19:00 Description of Symptoms (Recalled from Triage Doc. by RN): Pt's symptoms are burning with urination, itching, and blisters on labias. HEENT Symptoms (Recalled from RN notes): No Resp Symptoms (Recalled from RN notes): No Skin Symptoms (Recalled from RN notes): No MS Symptoms (Recalled from RN notes): No Functional Status (Recalled from RN notes): n/a History of Present Illness Provider Complaint: Patient states that she has been having some burning in her vaginal area when she urinates States that she feels raw and irritated and it itches and jaramillo down there States looked at her vagina and told her that she looked red and had some blisters down there States she recently seen PCP and they put her on medication for UTI but her culture came back no growth and stopped it Related Data Home Medications Medication Instructions Recorded Confirmed potassium chloride 20 mEq 20 meq PO DAILY Supplement 10/24/18 11/13/23 tablet,extended release(part/cryst) (Klor-Con M) sennosides 8.6 mg tablet (senna) 8.6 mg PO BID PRN Constipation 02/26/19 11/13/23 tramadol 50 mg tablet 50 mg PO QID PRN Pain 02/26/19 11/13/23 atorvastatin 20 mg tablet 20 mg PO HS Cholesterol 03/18/20 11/13/23 furosemide 20 mg tablet 20 mg PO DAILY 09/25/23 11/13/23 Previous Rx's Medication Instructions Recorded albuterol sulfate 90 mcg/actuation 2 inh inhalation Q6H PRN shortness 02/07/23 aerosol inhaler of breath or wheezing 90 days #8.5 grams Symbicort 160 mcg-4.5 See Rx Instructions .Route 09/21/23 mcg/actuation HFA aerosol inhaler .COMPLEX #11 grams (budesonide-formoterol) buspirone 7.5 mg tablet 7.5 mg PO BID 30 days #60 tabs 11/13/23 ipratropium 0.5 mg-albuterol 3 mg 3 ml inhalation Q6H PRN shortness 11/13/23 (2.5 mg base)/3 mL nebulization of breath or wheezing #180 mL soln lisinopril 20 mg tablet 20 mg PO BID 30 days #60 tabs 11/13/23 quetiapine 50 mg tablet (Seroquel) 50 mg PO HS 30 days #30 tabs 11/13/23 nystatin 100,000 unit/gram topical 1 applic topical TID PRN vaginal 12/02/23 ointment irritation #30 grams Allergies Allergy/AdvReac Type Severity Reaction Status Date / Time adhesive tape Allergy Severe Hives Verified 12/02/23 18:59 chlorhexidine Allergy Severe RASH Verified 12/02/23 18:59 [From Hibiclens] Iodinated Contrast Media Allergy Intermediate Unknown Verified 12/02/23 18:59 [IODINATED CONTRAST MEDIA - allergy IV DYE] reaction povidone-iodine Allergy Intermediate I-RASH Verified 12/02/23 18:59 [From BETADINE] cephalexin Allergy Unknown Unknown Verified 12/02/23 18:59 allergy reaction Worker's Comp Is this a Worker's Comp case?: No [facility] Disclaimer: The information contained in this section may have been updated after the patient was seen, as this information can be updated by other users. Medical History Claudication Dyspnea Fatigue Asthma Cough Allergic rhinitis Dyspnea on exertion Sinusitis, acute frontal Ringing in ears Cataract bilateral Urinary tract infection Sleep apnea Asthma Migraine Anxiety Osteoarthritis History of back pain History of diverticulitis History of cataract Edema History of anemia Foot pain, bilateral Multiple pulmonary nodules Asthma Seasonal allergies Wheezing Dyspnea on exertion Hypertension Dizziness Surgical History History of left hip replacement Hx of right coronary artery stent placement Hx of vaginal surgery prolapse Hx of shoulder surgery bilateal rotator cuff repair History of carpal tunnel surgery of right wrist History of appendectomy History of cataract surgery serena Hx of cardiac cath stent x1 History of hip surgery left H/O: hysterectomy Hx of cholecystectomy Family History Mother Rheumatoid aortitis Family/Other Heart attack Social History Smoking Status: Never smoker alcohol intake: never substance use type: denies use current occupational status: retired Travel in the last 8 weeks: None housing: house current occupational exposures/hazards: No caffeine: Yes ROS Obtained: Yes All systems reviewed & no additional complaints except as documented and Yes Systems reviewed as appropriate & no additional complaints except as documented Constitutional Constitutional: Reports system reviewed and no additional complaints, except as documented and Reports as per HPI ENT Ears, Nose, Mouth, and Throat: Reports system reviewed and no additional complaints, except as documented and Reports as per HPI Cardiovascular Cardiovascular: Reports system reviewed and no additional complaints, except as documented and Reports as per HPI Respiratory Respiratory: Reports system reviewed and no additional complaints, except as documented and Reports as per HPI Gastrointestinal Gastrointestingal: Reports system reviewed and no additional complaints, except as documented and as per HPI; Denies abdominal pain Genitourinary Female Genitourinary: Reports system reviewed and no additional complaints, except as documented, Reports as per HPI, Denies flank pain, Denies urinary frequency, Denies urinary urgency and Reports other (burning in vaginal area) Physical Exam General General appearance: alert and in no apparent distress ENT ENT exam: Present mucous membranes moist Respiratory Respiratory exam: Present normal lung sounds bilaterally; Absent respiratory distress or wheezes Cardiovascular Cardiovascular exam: Present regular rate, normal rhythm and normal heart sounds External exam: Present other (redness and irritation noted no discharge observed ) Neurological Exam Neurological exam: Present alert, oriented X3 and normal gait Medical Decision Making Agustin Inquiry Pt receiving controlled substance: No Agustin was queried for this patient: No Vital Signs: 12/02/23 18:45 Temperature 98.0 F Temperature Source Oral Pulse Rate [Right Radial] 81 Respiratory Rate 18 Blood Pressure [Right Arm] 148/72 H Blood Pressure Mean [Right Arm] 97 Blood Pressure Source [Right Arm] Automatic Cuff Blood Pressure Position [Right Arm] Sitting 02 Sat by Pulse Oximetry 98 Oxygen Delivery Method Room Air Lab Data Lab Results 12/02/23 18:23: Urine Color Yellow, Urine Appearance Cloudy, Urine pH 6.0, Ur Specific [place] 1.020, Urine Protein Negative, Urine Glucose (UA) Negative, Urine Ketones Negative, Urine Blood Trace, Urine Nitrate Negative, Urine Bilirubin Negative, Urine Urobilinogen 0.2, Ur Leukocyte Esterase Trace
[2023-12-02 19:19] VITALS: BP 148/72; PULSE 81; RESP 18; TEMP 36.7; O2SAT 98
== END 2023-12-02 19:19 | disposition home or self-care (01) ==
PROVIDERS: Emergency Provider Nurse Practitioner; PCP Nurse Practitioner Family
DX: B37.31 Acute candidiasis of vulva and vagina (principal); B96.29 Other Escherichia coli [E. coli] as the cause of diseases classified elsewhere; R30.0 Dysuria
CPT/HCPCS: 81003; 87086; 99212; 99214; G0463

== ENCOUNTER 2023-12-18 20:22 | Emergency (ER) | payer MEDICARE, SELFPAY ==
--- NOTE | 2023-12-18 20:24 | ED_ITS ---
Discharge Plan Disposition Patient Disposition: Home, Self-Care Condition: Good Prescriptions Prescriptions: New nitrofurantoin monohyd/m-cryst [Macrobid] 100 mg capsule 100 mg PO BID 7 Days Qty: 14 0RF Rx Instructions: must administer with a meal/food No Action lisinopril 10 mg tablet 10 mg PO BID Patient Comments: TAKE 1 TABLET BY MOUTH TWICE DAILY furosemide 20 mg tablet 20 mg PO DAILY Qty: 30 5RF potassium chloride [Klor-Con M20] 20 mEq tablet,ER particles/crystals 20 meq PO DAILY tramadol 50 mg tablet 50 mg PO QID PRN (Reason: Pain) sennosides [senna] 8.6 mg tablet 8.6 mg PO BID PRN (Reason: Constipation) albuterol sulfate 90 mcg/actuation HFA aerosol inhaler 2 inh inhalation Q6H PRN (Reason: shortness of breath or wheezing) 90 Days Qty: 8.5 2RF ipratropium-albuterol 0.5 mg-3 mg(2.5 mg base)/3 mL solution for nebulization 3 ml inhalation Q6H PRN (Reason: shortness of breath or wheezing) Qty: 180 3RF buspirone 7.5 mg tablet 7.5 mg PO BID 30 Days Qty: 60 2RF quetiapine [Seroquel] 50 mg tablet 50 mg PO HS 30 Days Qty: 30 2RF clobetasol 0.05 % cream 1 applic topical QHS Qty: 60 0RF Premarin 0.625 mg/gram cream 0.625 mg vaginal DAILY Qty: 30 2RF Rx Instructions: every morning ciprofloxacin HCl 250 mg tablet 250 mg PO BID 3 Days Qty: 6 0RF budesonide-formoterol [Symbicort] 160-4.5 mcg/actuation HFA aerosol inhaler See Rx Instructions .ROUTE .COMPLEX Qty: 11 0RF Dose Instruction: Inhale 2 puffs by mouth twice daily Rx Instructions: Inhale 2 puffs by mouth twice daily lidocaine 4 % cream 1 applic topical TID PRN (Reason: pain) Qty: 15 0RF phenazopyridine [Pyridium] 200 mg tablet 200 mg PO TID PRN (Reason: pain) 3 Days Qty: 9 0RF atorvastatin 20 mg tablet 20 mg PO HS clonazepam 1 mg tablet 1 mg PO BID mirtazapine 15 mg tablet 15 mg PO DAILY Patient Comments: TAKE 1 TABLET BY MOUTH ONCE DAILY AT BEDTIME Referrals Follow up/Referrals: Kathleen Sanderson APRN [Primary Care Provider] - See instructions Activity Restrictions/Add. Instructions Additional Instructions/Restrictions: Follow-up tomorrow with CHIEF DESIGN ENGINEER. Your urine culture shows a multidrug-resistant organism and you need to change antibiotics. I have called in Macrobid to your pharmacy. Clinical Impressions Clinical Impression: Urinary tract infection, Vaginal pruritus, Vaginal burning Instructions Patient Instructions: DI for Urinary Tract Infection (UTI), DI for Urinary Tract Infection in Children Discharge ED Provider: Andrea Liriano General Adult HPI <LEFTY Anderson - Last Filed: 12/18/23 22:54> General Chief complaint: Urogenital-Female Stated complaint: Burnng with urination with pain,frequency Time Seen by Provider: 12/18/23 20:24 History of Present Illness HPI narrative: Patient presents for evaluation of vaginal burning and itching. Patient is a difficult historian but to the best my ability to understand she has been evaluated for burning and itching in her vagina but also burning in her vagina with urination. She was given a prescription by her PCP that did not improve and was referred to her CHIEF DESIGN ENGINEER. She had a pelvic exam that showed vaginal atrophy, labial swelling. Patient had a punch biopsy done that showed no acute pathology. Patient was prescribed Cipro for presumed urinary tract infection. Patient represented to her CHIEF DESIGN ENGINEER for reevaluation and was prescribed estrogen nightly vaginally and daily vaginal topical steroids along with additional Cipro. Patient reports no improvement with the topical medications and present to the ER for evaluation. Patient denies abdominal pain fever chills hemoptysis hematochezia melena nausea vomit diarrhea Related Data Home Medications Medication Instructions Recorded Confirmed potassium chloride 20 mEq 20 meq PO DAILY Supplement 10/24/18 12/14/23 tablet,extended release(part/cryst) (Klor-Con M) sennosides 8.6 mg tablet (senna) 8.6 mg PO BID PRN Constipation 02/26/19 12/14/23 tramadol 50 mg tablet 50 mg PO QID PRN Pain 02/26/19 12/14/23 atorvastatin 20 mg tablet 20 mg PO HS Cholesterol 03/18/20 12/14/23 clonazepam 1 mg tablet 1 mg PO BID 12/02/23 12/14/23 mirtazapine 15 mg tablet 15 mg PO DAILY 12/02/23 12/14/23 lisinopril 10 mg tablet 10 mg PO BID 12/04/23 12/14/23 Previous Rx's Medication Instructions Recorded albuterol sulfate 90 mcg/actuation 2 inh inhalation Q6H PRN shortness 02/07/23 aerosol inhaler of breath or wheezing 90 days #8.5 grams Symbicort 160 mcg-4.5 See Rx Instructions .Route 09/21/23 mcg/actuation HFA aerosol inhaler .COMPLEX #11 grams (budesonide-formoterol) buspirone 7.5 mg tablet 7.5 mg PO BID 30 days #60 tabs 11/13/23 ipratropium 0.5 mg-albuterol 3 mg 3 ml inhalation Q6H PRN shortness 11/13/23 (2.5 mg base)/3 mL nebulization of breath or wheezing #180 mL soln quetiapine 50 mg tablet (Seroquel) 50 mg PO HS 30 days #30 tabs 11/13/23 furosemide 20 mg tablet 20 mg PO DAILY swelling #30 tabs 12/04/23 lidocaine 4 % topical cream 1 applic topical TID PRN pain #15 12/06/23 grams ciprofloxacin HCl 250 mg tablet 250 mg PO BID 3 days #6 tabs 12/14/23 clobetasol 0.05 % topical cream 1 applic topical QHS #60 grams 12/14/23 conjugated estrogens 0.625 mg/gram 0.625 mg vaginal DAILY #30 grams 12/14/23 vaginal cream (Premarin) nitrofurantoin 100 mg PO BID 7 days #14 caps 12/18/23 monohydrate/macrocrystals 100 mg capsule (Macrobid) phenazopyridine 200 mg tablet 200 mg PO TID PRN pain 3 days #9 12/18/23 (Pyridium) tabs Allergies Allergy/AdvReac Type Severity Reaction Status Date / Time adhesive tape Allergy Severe Hives Verified 12/14/23 14:13 chlorhexidine Allergy Severe RASH Verified 12/14/23 14:13 [From Hibiclens] Iodinated Contrast Media Allergy Intermediate Unknown Verified 12/14/23 14:13 [IODINATED CONTRAST MEDIA - allergy IV DYE] reaction povidone-iodine Allergy Intermediate I-RASH Verified 12/14/23 14:13 [From BETADINE] cephalexin Allergy Unknown Unknown Verified 12/14/23 14:13 allergy reaction PFS <LEFTY Anderson - Last Filed: 12/18/23 22:54> [facility] Disclaimer: The information contained in this section may have been updated after the patient was seen, as this information can be updated by other users. Medical History Cystocele with prolapse stage 3 Vulvovaginal pain Vulvar lesion Meniere disease CAD (coronary artery disease) Claudication Asthma Dyspnea on exertion Cataract bilateral Sleep apnea Migraine Anxiety Osteoarthritis History of diverticulitis Edema History of anemia Foot pain, bilateral Multiple pulmonary nodules Wheezing Hypertension Dizziness Surgical History History of bladder repair surgery History of left hip replacement Hx of right coronary artery stent placement Hx of shoulder surgery bilateal rotator cuff repair History of carpal tunnel surgery of right wrist History of appendectomy History of cataract surgery serena Hx of cardiac cath stent x1 H/O: hysterectomy Hx of cholecystectomy Family History Mother Rheumatoid aortitis Family/Other Heart attack Social History Smoking Status: Never smoker alcohol intake: never substance use type: denies use current occupational status: retired Travel in the last 8 weeks: None housing: house current occupational exposures/hazards: No caffeine: Yes <LEFTY Anderson - Last Filed: 12/18/23 22:54> ROS Obtained: Yes Systems reviewed as appropriate & no additional complaints except as documented Physical Exam <LEFTY Anderson - Last Filed: 12/18/23 22:54> General General appearance: alert Respiratory Respiratory exam: Present normal lung sounds bilaterally Cardiovascular Cardiovascular exam: Present regular rate and normal rhythm Abdominal Exam Abdominal exam: Present soft and normal bowel sounds; Absent distention, tenderness, guarding, rebound or rigidity Back Exam Back exam: Present normal inspection and full ROM; Absent tenderness Neurological Exam Neurological exam: Present alert and oriented X3 Medical Decision Making <LEFTY Anderson - Last Filed: 12/18/23 22:54> Medical Records Medical records reviewed: Yes I reviewed the patient's medical records. Agustin Inquiry Pt receiving controlled substance: No Vital Signs: 12/18/23 20:58 12/18/23 21:22 Temperature 98.1 F 98.0 F Temperature Source Oral Pulse Rate 78 Pulse Rate [Right Radial] 70 Respiratory Rate 20 20 Blood Pressure 140/78 Blood Pressure [Right Arm] 159/83 H Blood Pressure Mean [Right Arm] 108 02 Sat by Pulse Oximetry 95 Oxygen Delivery Method Room Air Room Air Lab Data Lab results reviewed: Yes I reviewed the patient's lab results. Lab Results 12/18/23 20:48: Urine Color [place], Urine Appearance Cloudy, Urine pH 5.5, Ur Specific [place] 1.010, Urine Protein Trace, Urine Glucose (UA) Trace, Urine Ketones Negative, Urine Blood Trace-i, Urine Nitrate Positive, Urine Bilirubin Negative, Urine Urobilinogen 4.0, Ur Leukocyte Esterase Negative, Urine RBC 3-5, Urine WBC Occasional, Ur Squamous Epith Cells 5-10, Urine Bacteria 2+ Orders (Tests/Meds): ED MEDICATIONS Discontinued Medications Generic Name Dose Route Start Last Admin Trade Name Freq PRN Reason Stop Dose Admin Acetaminophen 1,000 mg 12/18/23 20:25 12/18/23 21:01 Acetaminophen 1,000mg/100ml Vial IV 12/18/23 20:26 Not Given ONCE ONE Lactated Ringer's 1,000 mls @ 999 mls/hr 12/18/23 20:25 12/18/23 21:02 Lactated Ringer's 1000 Ml Bag IV 12/18/23 21:25 Not Given .Q1H1M ONE Ketorolac Tromethamine 15 mg 12/18/23 20:25 12/18/23 21:02 Ketorolac 30mg/Ml Vial IV 12/18/23 20:26 Not Given ONCE ONE Nitrofurantoin Macrocrystals 100 mg 12/18/23 20:57 12/18/23 21:12 Nitrofurantoin 100mg Capsule PO 12/18/23 20:58 100 mg ONCE ONE Administration ORDERS Category Date Time Status UA [Urinalysis and Microscopic] Stat Lab 12/18/23 20:48 Completed Urine Culture Stat Micro 12/18/23 20:48 Received Medical Decision Narrative: In summary patient is a 78-year-old female who presents to the emergency department for evaluation of vaginal burning and itching. Patient is hemodynamically stable upon arrival, afebrile. Physical exam is unremarkable and nonfocal. Vaginal exam is deferred and lieu of recent gynecological evaluation. Differential diagnosis includes cystitis versus vaginitis versus cystocele. I reviewed all of the previous laboratory work and office notes. Patient has a multidrug-resistant E. coli cultured in her urine however she was prescribed Cipro for which the drug is resistant. I also reviewed notes from her CHIEF DESIGN ENGINEER provider and prescriptions that she were offered were topical estrogen at nighttime and topical steroid in the morning delivered vaginally. I reviewed the patient's medications that she had with her and showed that the directions were switched and she was instructed to utilize the estrogen cream in the morning and the topical steroid at night. Patient reports no improvement with the topical medications. Given this further workup or intervention was deferred via shared decision making with the patient. Patient now knows the correct timing of her topical medications and she was referred back to her DATA CONTROL ASSISTANT with close follow-up for reevaluation for resolution of her symptoms. Patient was changed to Macrobid with 1 dose now and a prescription sent in. By gram shows that it is sensitive to Macrobid. <Andrea Liriano MD - Last Filed: 12/19/23 07:23> Vital Signs: 12/18/23 20:58 12/18/23 21:22 Temperature 98.1 F 98.0 F Temperature Source Oral Pulse Rate 78 Pulse Rate [Right Radial] 70 Respiratory Rate 20 20 Blood Pressure 140/78 Blood Pressure [Right Arm] 159/83 H Blood Pressure Mean [Right Arm] 108 02 Sat by Pulse Oximetry 95 Oxygen Delivery Method Room Air Room Air Lab Data Lab Results 12/18/23 20:48: Urine Color [place], Urine Appearance Cloudy, Urine pH 5.5, Ur Specific [place] 1.010, Urine Protein Trace, Urine Glucose (UA) Trace, Urine Ketones Negative, Urine Blood Trace-i, Urine Nitrate Positive, Urine Bilirubin Negative, Urine Urobilinogen 4.0, Ur Leukocyte Esterase Negative, Urine RBC 3-5, Urine WBC Occasional, Ur Squamous Epith Cells 5-10, Urine Bacteria 2+ Orders (Tests/Meds): ED MEDICATIONS Discontinued Medications Generic Name Dose Route Start Last Admin Trade Name Aniya PRN Reason Stop Dose Admin Acetaminophen 1,000 mg 12/18/23 20:25 12/18/23 21:01 Acetaminophen 1,000mg/100ml Vial IV 12/18/23 20:26 Not Given ONCE ONE Lactated Ringer's 1,000 mls @ 999 mls/hr 12/18/23 20:25 12/18/23 21:02 Lactated Ringer's 1000 Ml Bag IV 12/18/23 21:25 Not Given .Q1H1M ONE Ketorolac Tromethamine 15 mg 12/18/23 20:25 12/18/23 21:02 Ketorolac 30mg/Ml Vial IV 12/18/23 20:26 Not Given ONCE ONE Nitrofurantoin Macrocrystals 100 mg 12/18/23 20:57 12/18/23 21:12 Nitrofurantoin 100mg Capsule PO 12/18/23 20:58 100 mg ONCE ONE Administration ORDERS Category Date Time Status UA [Urinalysis and Microscopic] Stat Lab 12/18/23 20:48 Completed Urine Culture Stat Micro 12/18/23 20:48 Received Medical Decision Narrative: In summary patient is a 78-year-old female who presents to the emergency department for evaluation of vaginal burning and itching. Patient is hemodynamically stable upon arrival, afebrile. Physical exam is unremarkable and nonfocal. Vaginal exam is deferred and lieu of recent gynecological evaluation. Differential diagnosis includes cystitis versus vaginitis versus cystocele. I reviewed all of the previous laboratory work and office notes. Patient has a multidrug-resistant E. coli cultured in her urine however she was prescribed Cipro for which the drug is resistant. I also reviewed notes from her CHIEF DESIGN ENGINEER provider and prescriptions that she were offered were topical estrogen at nighttime and topical steroid in the morning delivered vaginally. I reviewed the patient's medications that she had with her and showed that the directions were switched and she was instructed to utilize the estrogen cream in the morning and the topical steroid at night. Patient reports no improvement with the topical medications. Given this further workup or intervention was deferred via shared decision making with the patient. Patient now knows the correct timing of her topical medications and she was referred back to her DATA CONTROL ASSISTANT with close follow-up for reevaluation for resolution of her symptoms. Patient was changed to Macrobid with 1 dose now and a prescription sent in. Sensitivities shows that it is sensitive to Macrobid. I was consulted by the ANGELA, and we discussed the complexity of the problems being addressed. I approved the treatment and management plan for this patient?s care in the Emergency Department, thus performing a substantive portion of the medical decision making. Andrea Liriano MD Critical Care <LEFTY Anderson - Last Filed: 12/18/23 22:54> Critical Care Time Critical Care Time: No
[2023-12-18 20:58] VITALS: BP 159/83; PULSE 70; RESP 20; TEMP 36.7; O2SAT 95; BMI 32.8
[2023-12-18 20:59] LABS: Microscopic, Urine URINE MICROSCOPIC (MICROSCOPIC)
[2023-12-18 21:05] LABS: Appearance,Urine CLOUDY (Clear); Bilirubin,Urine Negative (Negative); Blood, Urine TRACE-I (Negative); Color,Urine ORANGE (Yellow); Glucose,Urine (UA) TRACE (Negative); Ketones,Urine Negative (Negative); Leukocyte Esterase,Urine Negative (Negative); Nitrate,Urine POSITIVE (Negative); PH,Urine 5.5 (5.0-8.5); Protein,Urine TRACE (Negative)
[2023-12-18] MEDS: NITROFURANTOIN 100MG CAPSULE 100 MG PO (21:12)
[2023-12-18 21:22] VITALS: BP 140/78; PULSE 78; RESP 20; TEMP 36.7; O2SAT 98
[2023-12-18 21:34] LABS: Bacteria,Urine 2+ /lpf; WBC,Urine Occasional #/hpf (0-3)
== END 2023-12-18 21:24 | disposition home or self-care (01) ==
PROVIDERS: Physician Assistant; Emergency Provider Emergency Medicine; PCP Nurse Practitioner Family
DX: N39.0 Urinary tract infection, site not specified (principal); R30.0 Dysuria; N89.8 Other specified noninflammatory disorders of vagina; N94.9 Unspecified condition associated with female genital organs and menstrual cycle
CPT/HCPCS: 81001; 87086; 96361; 96374; 96375; 99284

== ENCOUNTER 2023-12-28 15:58 | Outpatient (CLI) | payer MEDICARE, SELFPAY | END 2023-12-28 23:59 | disposition home or self-care (01) | LOC: LAB.DROPOF 16:00 | PROVIDERS: PCP Nurse Practitioner Family; Visit Provider Internal Medicine Adolescent Medicine | DX: R30.0 Dysuria (principal) | CPT/HCPCS: 87086 ==

== ENCOUNTER 2024-01-28 09:20 | Outpatient (CLI) | payer MEDICARE, SELFPAY ==
--- NOTE | 2024-01-28 09:41 | MR_ITS ---
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 Software platform sequences were performed using the Siemens [employer] MR B19 platform. A set of three-plane, low-resolution, large [id number] localizers were initially acquired. Then axial, coronal, sagittal TrueFISP, as well as axial HASTE images, were obtained. These were followed by gated TrueFISP breathold cinematic sequences obtained in the short axis with 8 mm slices and 2 mm gaps, 2-chamber (vertical long axis), 3-chamber, 4-chamber (horizontal long axis). A bolus of contrast was injected intravenously with first-pass sequences obtained in the short axis and four-chamber planes. After approximately 10 minutes, a TI client integration manager sequence was performed to determine the optimal TI time. Using the optimized TI time, delayed contrast enhancement segmented inversion???recovery TurboFLASH sequences were obtained in the short axis, 2-chamber, 3-chamber, and 4-chamber projections. 2D-velocity phase mapping was performed. Functional parameters were calculated by offline analysis on an independent workstation ([employer], [employer]). Contrast: ProHance??? (Gadoteridol) FINDINGS MORPHOLOGY AND FUNCTION Left ventricle: The left ventricle is normal in size. The indexed left ventricular end-diastolic volume (LVEDVi) is 45 ml/m2 (reference range 57-105 ml/m2 in males, 56-96 ml/m2 in females). Normal left ventricular systolic function is present. There is increased left ventricular wall thickness. Maximum LV wall thickness measures 12.6 mm in the septal wall. There are no regional wall motion abnormalities noted. LVEF is calculated at 60.0% (reference range 57-77%). Right ventricle: The right ventricle is normal in size. The indexed right ventricular end-diastolic volume (RVEDVi) is 60 ml/m2 (reference range 61-121 ml/m2 in males, 48-112 ml/m2 in females). There is mild reduction in right ventricular systolic function. The basal RV wall appears aneurysmal. There is focal dyskinesis present of the distal RV free wall. RVEF is calculated at 44.0% (reference range 52-72% in males, 51-71% in females). Atria: The left atrium is normal in size. The maximum indexed left atrial volume is 29 ml/m2 (reference range 26-52 ml/m2 in males, 27-53 ml/m2 in females). The right atrium is normal in size. The maximum indexed right atrial volume is 18 ml/m2 (reference range 18-90 ml/m2). Aorta: The diameter of the aortic annulus is normal, measuring 24 mm (coronal view reference range 21-30 mm in males, 19-27 mm in females). The diameter of the aortic sinus is normal, measuring 35 mm (coronal view reference range 25-42 mm in males, 24-36 mm in females). The diameter of the sinotubular junction is normal, measuring 28 mm (coronal view reference range 18-32 mm in males, 18-28 mm in females). The diameters of the ascending and descending thoracic aorta are normal. Main pulmonary artery: The main pulmonary artery diameter is normal. Pericardium: The pericardial thickness is normal. The pericardial thickness measures 2.7 mm (normal < 4.0 mm). There is no pericardial effusion. VALVES The valvular morphologies in the visualized sequences appear normal. Mild tricuspid regurgitation is present. Systolic anterior motion of the mitral valve is not visualized. Ratio of pulmonary to systemic flow, Qp:Qs ratio = 1.1 (normal < or = 1.2, hemodynamically significant shunt > 1.5), demonstrating no evidence of hemodynamically significant shunt. TISSUE CHARACTERIZATION Resting Perfusion: Normal myocardial blood flow at rest. No evidence of resting hypoperfusion. Myocardial Fibrosis and/or edema: Normal gadolinium kinetics are present. No evidence of late gadolinium enhancement is noted, consistent with absence of myocardial scarring, infarction, or necrosis. T2-weighted imaging demonstrates no evidence of myocardial edema or inflammation. OTHER No other significant findings are noted. However, this exam is focused on the cardiac structure and function. IMPRESSION Normal LV size with normal LV systolic function. LVEDVi= 45 ml/m2 and LVEF= 60.0%. Increased left ventricular wall thickness. Maximum LV wall thickness measures 12.6 mm in the septal wall. Normal RV size with normal RV systolic function. RVEDVi= 60 ml/m2 and RVEF= 44.0%. The basal RV wall appears aneurysmal. There is focal dyskinesis present of the distal RV free wall. No atrial enlargement. No CMR evidence of myocardial scarring, infarction, or necrosis. No evidence of myocardial edema or inflammation. Perfusion analysis demonstrates normal blood flow at rest with no evidence of resting hypoperfusion. Ratio of pulmonary to systemic flow, Qp:Qs ratio = 1.1 (normal < or = 1.2, hemodynamically significant shunt > 1.5), demonstrating no evidence of hemodynamically significant shunt. This CMR demonstrates normal LV systolic function and mild RV dysfunction. There is increased LV wall thickness, without meeting HCM criteria. No evidence of LGE or features suggestive of amyloidosis. Overall, there are no features of infiltrative disease. There are RV regional wall motion abnormalities, including an aneurysmal basal RV and dyskinetic distal free wall, but these findings in isolation are nonspecific and do not meet criteria for ARVC. COMPARISON None CRITICAL RESULT None COMMUNICATION Per this written report The findings of this cardiac MR were reviewed, reported, and signed by Pepe Malloy MD (Blow Mold Operator). Conclusion Electronically signed by : Roxann Malloy MD 02/13/2024 23:31:27
[2024-01-28 09:47] LABS: Blood Urea Nitrogen 15 mg/dl (7-17); Estimated Glomerular Filt Rate 61 ml/min (>60); GFR (African American) 73 ML/MIN (>60)
[2024-01-28] MEDS: 0.9 % SODIUM CHLORIDE 50 ML VIAL 25 ML IV (11:22)
[2024-01-28] MEDS: GADOTERIDOL INJ 20ML SYRINGE 18 ML IV (11:22)
[2024-01-28] MEDS: SODIUM CHLORIDE 0.9% 10ML SYR (RAD ONLY) 10 ML IV (11:22)
== END 2024-01-28 23:59 | disposition home or self-care (01) ==
LOC: RAD 09:21
PROVIDERS: PCP Nurse Practitioner Family; Visit Provider Internal Medicine
DX: R93.1 Abnormal findings on diagnostic imaging of heart and coronary circulation (principal); R06.00 Dyspnea, unspecified; R53.83 Other fatigue; I25.10 Atherosclerotic heart disease of native coronary artery without angina pectoris; R42 Dizziness and giddiness; R00.2 Palpitations
CPT/HCPCS: 36415; 75561; 82565; 84520; A9576

== ENCOUNTER 2024-02-29 15:35 | Outpatient (CLI) | payer MEDICARE, SELFPAY | END 2024-02-29 23:59 | disposition home or self-care (01) | LOC: LAB.DROPOF 15:37 | PROVIDERS: PCP Nurse Practitioner Family; Visit Provider Nurse Practitioner Family | DX: R30.0 Dysuria (principal); N39.0 Urinary tract infection, site not specified; B96.20 Unspecified Escherichia coli [E. coli] as the cause of diseases classified elsewhere | CPT/HCPCS: 87086; 87088; 87186 ==

== ENCOUNTER 2024-05-02 22:47 | Emergency (ER) | payer MEDICARE, SELFPAY ==
[2024-05-02 22:48] VITALS: BP 130/62; PULSE 90; RESP 20; TEMP 36.7; O2SAT 97; BMI 29.6
--- NOTE | 2024-05-02 23:02 | HMH.EDGENADL ---
Discharge Plan Disposition Patient Disposition: Home, Self-Care Prescriptions Prescriptions: New ondansetron HCl 4 mg tablet 4 mg PO Q8H PRN (Reason: nausea and vomiting) 5 Days Qty: 30 0RF No Action lisinopril 10 mg tablet 10 mg PO BID Patient Comments: TAKE 1 TABLET BY MOUTH TWICE DAILY furosemide 20 mg tablet 20 mg PO DAILY Qty: 30 5RF potassium chloride [Klor-Con M20] 20 mEq tablet,ER particles/crystals 20 meq PO DAILY tramadol 50 mg tablet 50 mg PO QID PRN (Reason: Pain) sennosides [senna] 8.6 mg tablet 8.6 mg PO BID PRN (Reason: Constipation) albuterol sulfate 90 mcg/actuation HFA aerosol inhaler 2 inh inhalation Q6H PRN (Reason: shortness of breath or wheezing) 90 Days Qty: 8.5 2RF ipratropium-albuterol 0.5 mg-3 mg(2.5 mg base)/3 mL solution for nebulization 3 ml inhalation Q6H PRN (Reason: shortness of breath or wheezing) Qty: 180 3RF buspirone 7.5 mg tablet 7.5 mg PO BID 30 Days Qty: 60 2RF quetiapine [Seroquel] 50 mg tablet 50 mg PO HS 30 Days Qty: 30 2RF clobetasol 0.05 % cream 1 applic topical QHS Qty: 60 0RF Premarin 0.625 mg/gram cream 0.625 mg vaginal DAILY Qty: 30 2RF Rx Instructions: every morning ciprofloxacin HCl 250 mg tablet 250 mg PO BID 3 Days Qty: 6 0RF gabapentin 100 mg capsule PO lidocaine 4 % cream 1 applic topical TID PRN (Reason: pain) Qty: 15 0RF phenazopyridine [Pyridium] 200 mg tablet 200 mg PO TID PRN (Reason: pain) 3 Days Qty: 9 0RF budesonide-formoterol [Symbicort] 160-4.5 mcg/actuation HFA aerosol inhaler See Rx Instructions .ROUTE .COMPLEX Qty: 11 0RF Dose Instruction: Inhale 2 puffs by mouth twice daily Rx Instructions: Inhale 2 puffs by mouth twice daily atorvastatin 20 mg tablet 20 mg PO HS clonazepam 1 mg tablet 1 mg PO BID mirtazapine 15 mg tablet 15 mg PO DAILY Patient Comments: TAKE 1 TABLET BY MOUTH ONCE DAILY AT BEDTIME nitrofurantoin monohyd/m-cryst [Macrobid] 100 mg capsule 100 mg PO BID 7 Days Qty: 14 0RF Rx Instructions: must administer with a meal/food Referrals Follow up/Referrals: Kathleen Sanderson APRN [Primary Care Provider] - See instructions Activity Restrictions/Add. Instructions Additional Instructions/Restrictions: Recommend starting melatonin to help you sleep. Take 5 mg before you lay down. If in a half an hour you are still awake, take another 5 mg. Recommend avoiding your phone or other screens before bedtime. Recommend sleeping in a dark room. Please take Zofran as needed for nausea and vomiting. Consider talking with your primary physician about changing your medications as some of them may be worsening your tinnitus. Clinical Impressions Clinical Impression: Tinnitus, Disturbance of sleep Print Language Print Language: Guyanese Discharge ED Provider: Garett Lucero General Adult HPI <Kerry Ac (ED), MARGARITA - Last Filed: 05/02/24 23:11> General Chief complaint: Ear Stated complaint: ringing in ears Time Seen by Provider: 05/02/24 23:01 Mode of Arrival: Ambulatory Source of Information: Patient Limitations: No Limitations Description of Symptoms (Recalled from ER Triage Doc. by RN): 79 F presents with c/o left ear noise. Patient states she normally has noise in her ears, but the last 2 days it's been worse in the left ear. Patient reports insomnia r/t to this worsened noise. Patient denies pain History of Present Illness HPI narrative: 79-year-old female presents to the ED today for complaint of ringing in bilateral ear, left worse than right. She states that she just got her clonazepam from [facility] 2 days ago and she believes that it has been changed. She believes that it is a different diamond wheel edger that is giving it to her. She says the noise is really loud today and is causing her to be unable to sleep. Related Data Home Medications ?Medication ?Instructions ?Recorded ?Confirmed potassium chloride 20 mEq 20 meq PO DAILY Supplement 10/24/18 03/04/24 tablet,extended release(part/cryst) (Klor-Con M) sennosides 8.6 mg tablet (senna) 8.6 mg PO BID PRN Constipation 02/26/19 03/04/24 tramadol 50 mg tablet 50 mg PO QID PRN Pain 02/26/19 03/04/24 atorvastatin 20 mg tablet 20 mg PO HS Cholesterol 03/18/20 03/04/24 clonazepam 1 mg tablet 1 mg PO BID 12/02/23 03/04/24 mirtazapine 15 mg tablet 15 mg PO DAILY 12/02/23 03/04/24 lisinopril 10 mg tablet 10 mg PO BID 12/04/23 03/04/24 gabapentin 100 mg capsule mg PO 03/04/24 03/04/24 Previous Rx's ?Medication ?Instructions ?Recorded albuterol sulfate 90 mcg/actuation 2 inh inhalation Q6H PRN shortness 02/07/23 aerosol inhaler of breath or wheezing 90 days #8.5 grams buspirone 7.5 mg tablet 7.5 mg PO BID 30 days #60 tabs 11/13/23 ipratropium 0.5 mg-albuterol 3 mg 3 ml inhalation Q6H PRN shortness 11/13/23 (2.5 mg base)/3 mL nebulization of breath or wheezing #180 mL soln quetiapine 50 mg tablet (Seroquel) 50 mg PO HS 30 days #30 tabs 11/13/23 furosemide 20 mg tablet 20 mg PO DAILY swelling #30 tabs 12/04/23 lidocaine 4 % topical cream 1 applic topical TID PRN pain #15 12/06/23 grams ciprofloxacin HCl 250 mg tablet 250 mg PO BID 3 days #6 tabs 12/14/23 clobetasol 0.05 % topical cream 1 applic topical QHS #60 grams 12/14/23 conjugated estrogens 0.625 mg/gram 0.625 mg vaginal DAILY #30 grams 12/14/23 vaginal cream (Premarin) nitrofurantoin 100 mg PO BID 7 days #14 caps 12/18/23 monohydrate/macrocrystals 100 mg capsule (Macrobid) phenazopyridine 200 mg tablet 200 mg PO TID PRN pain 3 days #9 12/18/23 (Pyridium) tabs Symbicort 160 mcg-4.5 See Rx Instructions .Route 04/29/24 mcg/actuation HFA aerosol inhaler .COMPLEX #11 grams (budesonide-formoterol) ondansetron HCl 4 mg tablet 4 mg PO Q8H PRN nausea and 05/02/24 vomiting 5 days #30 tabs Allergies Allergy/AdvReac Type Severity Reaction Status Date / Time adhesive tape Allergy Severe Hives Verified 03/04/24 14:00 chlorhexidine Allergy Severe RASH Verified 03/04/24 14:00 [From Hibiclens] Iodinated Contrast Media Allergy Intermediate Unknown Verified 03/04/24 14:00 [IODINATED CONTRAST MEDIA - allergy IV DYE] reaction povidone-iodine Allergy Intermediate I-RASH Verified 03/04/24 14:00 [From BETADINE] cephalexin Allergy Unknown Unknown Verified 03/04/24 14:00 allergy reaction <Garett Lucero MD - Last Filed: 05/02/24 23:56> History of Present Illness HPI narrative: 79-year-old female presents to the ED today for complaint of ringing in bilateral ear, left worse than right. She states that she just got her clonazepam from [facility] 2 days ago and she believes that it has been changed. She believes that it is a different diamond wheel edger that is giving it to her. She says the noise is really loud today and is causing her to be unable to sleep. She reports that she has been having tinnitus for approximately 10 years and has had a thorough evaluation with multiple different ENT specialist. She reports the ringing has been worse over the last couple of days. She denies any numbness, tingling, weakness, slurred speech. Her primary concern is sleep. [facility] <Kerry Ac (ED), COMPUTER GRAPHIC ARTIST - Last Filed: 05/02/24 23:11> [facility] Disclaimer: The information contained in this section may have been updated after the patient was seen, as this information can be updated by other users. Medical History Cystocele with prolapse stage 3 Vulvovaginal pain Vulvar lesion Meniere disease CAD (coronary artery disease) Claudication Asthma Dyspnea on exertion Cataract bilateral Sleep apnea Migraine Anxiety Osteoarthritis History of diverticulitis Edema History of anemia Foot pain, bilateral Multiple pulmonary nodules Wheezing Hypertension Dizziness Surgical History History of bladder repair surgery History of left hip replacement Hx of right coronary artery stent placement Hx of shoulder surgery bilateal rotator cuff repair History of carpal tunnel surgery of right wrist History of appendectomy History of cataract surgery serena Hx of cardiac cath stent x1 H/O: hysterectomy Hx of cholecystectomy Family History Mother Rheumatoid aortitis Family/Other Heart attack Social History Smoking Status: Never smoker alcohol intake: never substance use type: denies use current occupational status: retired Travel in the last 8 weeks: None housing: house current occupational exposures/hazards: No caffeine: Yes <Kerry Ac (ED), COMPUTER GRAPHIC ARTIST - Last Filed: 05/02/24 23:11> ROS Obtained: Yes Systems reviewed as appropriate & no additional complaints except as documented Constitutional Constitutional: Reports system reviewed and no additional complaints, except as documented and Reports as per HPI Physical Exam <Kerry Ac (ED), COMPUTER GRAPHIC ARTIST - Last Filed: 05/02/24 23:11> General General appearance: alert and anxious Head Head exam: atraumatic and normocephalic Eye Eye exam: Present normal appearance, PERRL and EOMI ENT ENT exam: Present normal exam, normal oropharynx and mucous membranes moist Neck Neck exam: Present normal inspection, full ROM and trachea midline Respiratory Respiratory exam: Present normal lung sounds bilaterally Cardiovascular Cardiovascular exam: Present regular rate, normal rhythm, normal heart sounds, +S1 and +S2 Abdominal Exam Abdominal exam: Present soft and normal bowel sounds Extremities Exam Extremities exam: Present normal inspection, full ROM and normal capillary refill Neurological Exam Neurological exam: Present alert, oriented X3 and normal gait Skin Skin exam: Present warm, dry and intact <Garett Lucero MD - Last Filed: 05/02/24 23:56> Neurological Exam Neurological exam: Present CN II-XII intact and reflexes normal Medical Decision Making <Kerry Ac (ED), COMPUTER GRAPHIC ARTIST - Last Filed: 05/02/24 23:11> Medical Records Screening: Per USPSTF and CDC recommendations, given the prevalence of disease in our region, it is our hospital?s policy to screen for HIV and viral Hepatitis for all patients aged 18 and over and those with ongoing risk factors. Agustin Inquiry Pt receiving controlled substance: No Agustin was queried for this patient: No Vital Signs: 05/02/24 22:48 Temperature 98.1 F Temperature Source Oral Pulse Rate [Left] 90 Respiratory Rate 20 Blood Pressure [Right Arm] 130/62 Blood Pressure Mean [Right Arm] 84 Blood Pressure Source [Right Arm] Automatic Cuff Blood Pressure Position [Right Arm] Sitting 02 Sat by Pulse Oximetry 97 Oxygen Delivery Method Room Air Orders (Tests/Meds): ED MEDICATIONS Discontinued Medications Generic Name Dose Route Start Last Admin Trade Name Freq PRN Reason Stop Dose Admin Clonazepam 1 mg 05/02/24 23:04 05/02/24 23:49 Clonazepam 0.5mg Tablet PO 05/02/24 23:05 1 mg ONCE ONE Administration Medical Decision Narrative: Insert review patient is a 79-year-old female presenting to the emergency department for evaluation of ringing in ears. Patient is hemodynamically stable and nontoxic-appearing upon arrival, afebrile. Differential diagnosis includes ear infection, tinnitus, among others. No workup will be conducted today due to nature of illness. Patient exam negative. Patient will be given an extra dose of clonazepam. Discussed with attending on duty. Will reassess patient. <Garett Lucero MD - Last Filed: 05/02/24 23:56> Vital Signs: 05/02/24 22:48 Temperature 98.1 F Temperature Source Oral Pulse Rate [Left] 90 Respiratory Rate 20 Blood Pressure [Right Arm] 130/62 Blood Pressure Mean [Right Arm] 84 Blood Pressure Source [Right Arm] Automatic Cuff Blood Pressure Position [Right Arm] Sitting 02 Sat by Pulse Oximetry 97 Oxygen Delivery Method Room Air Orders (Tests/Meds): ED MEDICATIONS Discontinued Medications Generic Name Dose Route Start Last Admin Trade Name Freq PRN Reason Stop Dose Admin Clonazepam 1 mg 05/02/24 23:04 05/02/24 23:49 Clonazepam 0.5mg Tablet PO 05/02/24 23:05 1 mg ONCE ONE Administration Medical Decision Narrative: Insert review patient is a 79-year-old female presenting to the emergency department for evaluation of ringing in ears. Patient is hemodynamically stable and nontoxic-appearing upon arrival, afebrile. Differential diagnosis includes ear infection, tinnitus, vascular pathology, stroke among others. No workup will be conducted today due to nature of illness. Patient exam negative. Patient will be given an extra dose of clonazepam. Discussed with attending on duty. Will reassess patient. Jazmine GALARZA: I assumed care of the patient at the time of handoff from the prior provider. I had extensive discussion with patient regarding her presentation. Ears clear on exam. Given the chronicity of symptoms and lack of other neurologic deficits, additional workup including blood work, CT, MRI were deemed unnecessary at this time. I discussed with patient that she is on a couple of medications that may be worsening her tinnitus, she was resistant to the idea of changing them. I offered the patient additional benzodiazepines as she is already on benzos for this, she initially refused and then accepted. I spoke with patient about sleep hygiene and recommended she begin taking melatonin. I also sent a prescription for Zofran for nausea. Patient was insistent that I give her a shot to fix her ringing in the ears because she had somebody give her a shot several years ago that worked. There is nothing in our records indicate what she might of been given. I repeatedly informed her that there was no shot to treat tinnitus and recommended she follow-up with her PCP/seek additional specialty evaluation. Return precautions given. Patient discharged in stable condition. Critical Care <Kerry Ac (ED), COMPUTER GRAPHIC ARTIST - Last Filed: 05/02/24 23:11> Critical Care Time Critical Care Time: No
[2024-05-02] MEDS: clonazePAM 0.5MG TABLET 1 MG PO (23:49)
[2024-05-02 23:53] VITALS: BP 123/60; PULSE 69; RESP 19; TEMP 36.7; O2SAT 96
--- NOTE | 2024-05-02 23:58 | PC.NURSE ---
Lengthy bedside discussion by Lu AVILA and Dr. Lucero with documenting RN at bedside for both. Each provider explained to patient their treatment recommendations and follow-up. Patient became agitated and kept stating, it's people like this generation that just doesn't care what we have to say, when Dr. Segura was here he would give me a shot and make it all go away. This RN and Dr. Lucero went through patient's previous visits and could not find where patient received a shot to help with her ears ringing. Lengthy DC instructions gone over with patient and spouse. They voiced no questions.
== END 2024-05-02 23:56 | disposition home or self-care (01) ==
PROVIDERS: Emergency Provider Emergency Medicine; PCP Nurse Practitioner Family
DX: H93.13 Tinnitus, bilateral; G47.9 Sleep disorder, unspecified
CPT/HCPCS: 99283

== ENCOUNTER 2024-09-09 16:14 | Outpatient (CLI) | payer MEDICARE, SELFPAY ==
[2024-09-09 16:30] LABS: Basophils # 0.1 K/mm3 (0-0.2); Basophils % 0.7 % (0.1-2.0); Eosinophils # 0.4 K/mm3 (0.0-0.4); Eosinophils % 5.7 % (0.1-12.0); Hematocrit 44.3 % (37.0-47.0); Hemoglobin 14.3 g/dL (12.2-16.2); Lymphocytes # 1.7 K/mm3 (0.7-4.5); Lymphocytes % 24.9 % (10-50); Mean Corpuscular HGB Conc 32.3 g/dL (31.8-35.4); Mean Corpuscular Hemoglobin 31.3 pg (27.0-31.2); Mean Corpuscular Volume 96.9 fl (81-99); Mean Platelet Volume 11.8 fl (7.4-10.4); Monocytes # 0.5 K/mm3 (0.1-1.0); Monocytes % 6.9 % (1.7-9.3); Neutrophils # 4.3 K/mm3 (1.8-7.8); Neutrophils % 61.5 % (37.0-80.0); Platelet Count 202 K/mm3 (142-424); Red Blood Count 4.57 M/mm3 (4.20-5.40); Red Cell Distribution Width 13.6 % (11.5-17.5)
[2024-09-09 16:55] LABS: Alanine Aminotransferase 19 U/L (12-78); Albumin Level 4.2 g/dl (3.5-5.0); Albumin/Globulin Ratio 1.8 (1.1-1.8); Alkaline Phosphatase 101 U/L (38-126); Aspartate Amino Transferase 28 U/L (14-36); Bilirubin,Total 0.2 mg/dl (0.2-1.3); Blood Urea Nitrogen 12 mg/dl (7-17); Calcium 9.5 mg/dl (8.4-10.2); Carbon Dioxide 27 mmol/L (22.0-30.0); Chloride 106 mmol/L (98-107); Chol/HDL Ratio 2.9 (1-3.5); Cholesterol 134 mg/dl (140-200); Estimated Glomerular Filt Rate 81 ml/min (>60); GFR (African American) 98 ML/MIN (>60); Globulin 2.3 g/dL (1.3-3.2); Glucose 79 mg/dl (74-100); HDL Cholesterol 47 mg/dl (40-60); Sodium 142 mmol/L (136-145); Total Protein,Serum 6.5 g/dl (6.3-8.2); Triglycerides 118 mg/dl (30-150); VLDL Cholesterol 24 mg/dL (0-40)
[2024-09-09 17:06] LABS: Direct LDL Cholesterol 55.81 mg/dL (100-129)
[2024-09-09 17:25] LABS: Erythrocyte Sedimentation Rate 12 mm/hr (0-30)
[2024-09-09 17:27] LABS: Thyroid Stimulating Hormone 1.59 uIU/mL (0.465-4.68)
[2024-09-09 22:20] LABS: Hemoglobin A1C 5.6 % (4.0-6.0)
[2024-09-10 16:55] LABS: Vitamin B12 280 pg/mL (239-931)
[2024-09-10 17:37] LABS: Albumin 3.7 g/dL (2.9-4.4); Alpha-1-Globulin 0.3 g/dL (0.0-0.4); Alpha-2-Globulin 0.8 g/dL (0.4-1.0); Gamma Globulin 0.7 g/dL (0.4-1.8); Protein, Total 6.6 g/dL (6.0-8.5)
[2024-09-11 15:22] LABS: Anti-Centromere B Abs Charge YES; Anti-Centromere B Antibodies <0.2 AI (0.0-0.9); Anti-DNA (DS) Ab Charge YES; Anti-DNA (DS) Ab Qn <1 IU/mL (0-9); Anti-Jo-1 <0.2 AI (0.0-0.9); Anti-Jo-1 Charge YES; Antichromatin Abs Charge YES; Antichromatin Antibodies <0.2 AI (0.0-0.9); Antinuclear Antibodies (ANA) Positive (Negative); Antiscleroderma-70 Abs Charge YES; Antiscleroderma-70 Antibodies <0.2 AI (0.0-0.9); RNP Antibodies <0.2 AI (0.0-0.9); RNP Antibodies Charge YES; Sjogren's Anti-SS-A >8.0 AI (0.0-0.9); Sjogren's Anti-SS-A Ab Charge YES; Sjogren's Anti-SS-B <0.2 AI (0.0-0.9); Sjogren's Anti-SS-B Ab Charge YES; Smith Antibodies Charge YES
[2024-09-12 11:19] LABS: PDF SCANNED IMAGE
[2024-09-19 14:11] LABS: Methylmalonic Acid 301 nmol/L (0-378)
== END 2024-09-09 23:59 | disposition home or self-care (01) ==
LOC: LAB.DROPOF 16:14
PROVIDERS: PCP Internal Medicine; Visit Provider Internal Medicine
DX: G62.9 Polyneuropathy, unspecified (principal); E78.5 Hyperlipidemia, unspecified; I87.2 Venous insufficiency (chronic) (peripheral); I25.10 Atherosclerotic heart disease of native coronary artery without angina pectoris; I10 Essential (primary) hypertension; H93.13 Tinnitus, bilateral; F41.1 Generalized anxiety disorder; E66.9 Obesity, unspecified; Z68.28 Body mass index [BMI] 28.0-28.9, adult; Z13.1 Encounter for screening for diabetes mellitus
CPT/HCPCS: 80053; 80061; 82607; 83036; 83921; 84155; 84165; 84443; 85025; 85651; 86038; 86225; 86235

== ENCOUNTER 2024-11-01 17:53 | Emergency (ER) | payer MEDICARE, SELFPAY ==
[2024-11-01 18:07] VITALS: BP 168/86; PULSE 81; RESP 16; TEMP 36.6; O2SAT 95; BMI 28.3
[2024-11-01] MEDS: SULFA/TRIMETHOPRIM 1 TABLET 1 EACH PO (18:27)
[2024-11-01] MEDS: BACITRACIN-POLYMYXIN B OINT 30GM TUBE TP (18:42)
--- NOTE | 2024-11-01 18:54 | ED_ITS ---
Discharge Plan Disposition Patient Disposition: Home, Self-Care Prescriptions Prescriptions: New sulfamethoxazole-trimethoprim [Bactrim DS] 800-160 mg tablet 1 tab PO BID 5 Days Qty: 10 0RF No Action furosemide 20 mg tablet 20 mg PO DAILY Qty: 30 5RF albuterol sulfate 90 mcg/actuation HFA aerosol inhaler 2 inh inhalation Q6H PRN (Reason: shortness of breath or wheezing) 90 Days Qty: 8.5 2RF budesonide-formoterol [Symbicort] 160-4.5 mcg/actuation HFA aerosol inhaler 2 puff inhalation BID 90 Days Qty: 10.2 2RF azelastine 137 mcg (0.1 %) spray,non-aerosol 2 spray intranasal HS 90 Days Qty: 30 2RF Rx Instructions: administer into each nostril fluticasone propionate [Flonase Allergy Relief] 50 mcg/actuation spray,suspension 2 spray intranasal DAILY 90 Days Qty: 16 2RF Rx Instructions: administer into each nostril ipratropium-albuterol 0.5 mg-3 mg(2.5 mg base)/3 mL solution for nebulization 3 ml inhalation Q6H PRN (Reason: shortness of breath or wheezing) Qty: 180 3RF mirtazapine 15 mg tablet 15 mg PO HS Qty: 30 2RF tramadol 50 mg tablet 50 mg PO QID PRN (Reason: Pain) sennosides [senna] 8.6 mg tablet 8.6 mg PO BID PRN (Reason: Constipation) ipratropium-albuterol 0.5 mg-3 mg(2.5 mg base)/3 mL solution for nebulization 3 ml inhalation Q6H PRN (Reason: shortness of breath or wheezing) Qty: 180 3RF gabapentin 100 mg capsule 100 mg PO HS PRN fluticasone propionate 50 mcg/actuation spray,suspension 2 spray intranasal DAILY PRN Rx Instructions: administer into each nostril pantoprazole 40 mg tablet,delayed release (DR/EC) 40 mg PO DAILY Qty: 90 1RF triamcinolone acetonide 0.1 % cream 1 applic topical TID PRN (Reason: rash) Qty: 80 3RF atorvastatin 20 mg tablet 20 mg PO HS Qty: 90 1RF lisinopril 10 mg tablet 10 mg PO BID Qty: 90 1RF potassium chloride [Klor-Con M20] 20 mEq tablet,ER particles/crystals 20 meq PO DAILY Qty: 90 1RF clonazepam 1 mg tablet 1 mg PO BID Qty: 60 0RF Referrals Follow up/Referrals: Nabeel Rios MD [Primary Care Provider] - See instructions Activity Restrictions/Add. Instructions Additional Instructions/Restrictions: Take antibiotics as prescribed. Follow-up with primary care doctor. Please return the emerged part with any new, concerning, worsening symptoms. Recommend compression stockings for your lower extremity swelling. Clinical Impressions Clinical Impression: Cellulitis of leg, right Instructions Patient Instructions: DI for Laceration Repair Print Language Print Language: Malawian Discharge ED Provider: Caleb Morgan General Adult HPI General Chief complaint: Wound/Laceration Stated complaint: right leg painful and itchy Time Seen by Provider: 11/01/24 18:06 Mode of Arrival: Ambulatory Source of Information: Patient Description of Symptoms (Recalled from ER Triage Doc. by RN): pt presents to ED with c/o macerated area on left garvey. pt reports approx 2 weeks ago she hit her garvey on the edge of her couch. pt reports itchiness, and redness. History of Present Illness HPI narrative: This is a 79-year-old female with a history of chronic tinnitus, anxiety, insomnia, idiopathic peripheral neuropathy, chronic venous insufficiency, atherosclerotic coronary artery disease, asthma, chronic back pain, hypertension, and hyperlipidemia presenting with a wound to her right lower leg. States that she bumped her pretibial area on on a piece of furniture a couple weeks ago and initially had a very small bruise/wound over the area. It has not healed in over the last several nights has become more itchy and having worsening pain. Denies fever. Denies any other symptoms. Related Data Home Medications ?Medication ?Instructions ?Recorded ?Confirmed sennosides 8.6 mg tablet (senna) 8.6 mg PO BID PRN Constipation 02/26/19 10/16/24 tramadol 50 mg tablet 50 mg PO QID PRN Pain 02/26/19 10/16/24 fluticasone propionate 50 2 spray intranasal DAILY PRN 05/27/24 10/16/24 mcg/actuation nasal spray,suspension gabapentin 100 mg capsule 100 mg PO HS PRN 05/27/24 10/16/24 Previous Rx's ?Medication ?Instructions ?Recorded ipratropium 0.5 mg-albuterol 3 mg 3 ml inhalation Q6H PRN shortness 11/13/23 (2.5 mg base)/3 mL nebulization of breath or wheezing #180 mL soln furosemide 20 mg tablet 20 mg PO DAILY swelling #30 tabs 12/04/23 pantoprazole 40 mg tablet,delayed 40 mg PO DAILY #90 tabs 06/03/24 release triamcinolone acetonide 0.1 % 1 applic topical TID PRN rash #80 08/07/24 topical cream grams atorvastatin 20 mg tablet 20 mg PO HS Cholesterol #90 tabs 08/20/24 lisinopril 10 mg tablet 10 mg PO BID #90 tabs 08/27/24 albuterol sulfate 90 mcg/actuation 2 inh inhalation Q6H PRN shortness 08/28/24 aerosol inhaler of breath or wheezing 90 days #8.5 grams azelastine 137 mcg (0.1 %) nasal 2 spray intranasal HS 90 days #30 08/28/24 spray mL budesonide-formoterol HFA 160 2 puff inhalation BID 90 days 08/28/24 mcg-4.5 mcg/actuation aerosol #10.2 grams inhaler (Symbicort) fluticasone propionate 50 2 spray intranasal DAILY 90 days 08/28/24 mcg/actuation nasal #16 grams spray,suspension (Flonase Allergy Relief) ipratropium 0.5 mg-albuterol 3 mg 3 ml inhalation Q6H PRN shortness 08/28/24 (2.5 mg base)/3 mL nebulization of breath or wheezing #180 mL soln potassium chloride 20 mEq 20 meq PO DAILY #90 tabs 09/15/24 tablet,extended release(part/cryst) (Klor-Con M) mirtazapine 15 mg tablet 15 mg PO HS #30 tabs 10/09/24 clonazepam 1 mg tablet 1 mg PO BID #60 tabs 10/20/24 sulfamethoxazole 800 1 tab PO BID 5 days #10 tabs 11/01/24 mg-trimethoprim 160 mg tablet (Bactrim DS) Allergies Allergy/AdvReac Type Severity Reaction Status Date / Time adhesive tape Allergy Severe Hives Verified 10/16/24 16:00 chlorhexidine (From Allergy Severe RASH Verified 10/16/24 16:00 Hibiclens) Iodinated Contrast Media Allergy Intermediate Unknown Verified 10/16/24 16:00 (IODINATED CONTRAST MEDIA - allergy IV DYE) reaction povidone-iodine (From Allergy Intermediate I-RASH Verified 10/16/24 16:00 BETADINE) cephalexin Allergy Unknown Unknown Verified 10/16/24 16:00 allergy reaction PFSH [facility] Disclaimer: The information contained in this section may have been updated after the patient was seen, as this information can be updated by other users. Medical History Cystocele with prolapse stage 3 Vulvovaginal pain Vulvar lesion Meniere disease CAD (coronary artery disease) Claudication Asthma Dyspnea on exertion Cataract bilateral Sleep apnea Migraine Anxiety Osteoarthritis History of diverticulitis Edema History of anemia Foot pain, bilateral Multiple pulmonary nodules Wheezing Hypertension Dizziness Surgical History History of bladder repair surgery History of left hip replacement Hx of right coronary artery stent placement Hx of shoulder surgery bilateal rotator cuff repair History of carpal tunnel surgery of right wrist History of appendectomy History of cataract surgery serena Hx of cardiac cath stent x1 H/O: hysterectomy Hx of cholecystectomy Family History Mother Rheumatoid aortitis Family/Other Heart attack Social History Smoking Status: Never smoker alcohol intake: never substance use type: denies use current occupational status: retired Travel in the last 8 weeks: None housing: house current occupational exposures/hazards: No caffeine: Yes Have you lived/traveled outside [place] in past 30 days?: No Contact w/someone who lives/traveled outside [place] past 30 days?: No Exposure to someone with infectious disease in past 14 days?: No Do you have a fever (greater than 100.4 F or 38 C)?: No Have you tested positive for COVID-19: No Exposed to someone with COVID-19 in past 14 days?: No Do you have a sore throat?: No Do you have a cough?: No Do you have any weakness?: No Do you have any diarrhea?: No Are you experiencing any unusual bleeding?: No Do you have any muscle aches/pain?: No Do you have any abdominal pain?: No Are you experiencing loss of taste or smell?: No Other Medical History Have you received the Flu Vaccine for this season: No Have you received the Pneumonia Vaccine: No ROS Obtained: Yes All systems reviewed & no additional complaints except as documented Physical Exam General General appearance: alert and in no apparent distress Eye Eye exam: Present normal appearance, PERRL and EOMI Respiratory Respiratory exam: Present normal lung sounds bilaterally; Absent respiratory distress Cardiovascular Cardiovascular exam: Present regular rate and normal rhythm Abdominal Exam Abdominal exam: Present soft and distention; Absent tenderness, guarding or rebound Extremities Exam Extremities exam: Present other (RLE: Ulcer over the pretibial area with surrounding erythema and warmth. No fluctuance.) Neurological Exam Neurological exam: Present alert and oriented X3 Skin Skin exam: Present warm and dry Medical Decision Making Medical Records Medical records reviewed: Yes I reviewed the patient's medical records. Screening: Per USPSTF and CDC recommendations, given the prevalence of disease in our [place], it is our hospital?s policy to screen for HIV and viral Hepatitis for all patients aged 18 and over and those with ongoing risk factors. MR Comment: Clinic visit from 10/16/2024 notable for patient's past medical history as noted above Agustin Inquiry Pt receiving controlled substance: No Vital Signs: 11/01/24 18:07 11/01/24 18:58 Temperature 97.9 F 97.9 F Temperature Source Oral Pulse Rate 74 Pulse Rate [Left Radial] 81 Respiratory Rate 16 16 Blood Pressure 163/73 H Blood Pressure [Right Arm] 168/86 H Blood Pressure Mean [Right Arm] 113 02 Sat by Pulse Oximetry 95 Oxygen Delivery Method Room Air Orders (Tests/Meds): ED MEDICATIONS Discontinued Medications Generic Name Dose Route Start Last Admin Trade Name Freq PRN Reason Stop Dose Admin Bacitracin/Polymyxin B Sulfate 1 gm 11/01/24 18:41 11/01/24 18:42 Bacitracin-Polymyxin B Oint 30gm Tube TP 11/01/24 18:42 1 gm ONCE ONE Administration Trimethoprim/Sulfamethoxazole 1 each 11/01/24 18:20 11/01/24 18:27 Sulfa/Trimethoprim 1 Tablet PO 11/01/24 18:21 1 each ONCE ONE Administration Medical Decision Narrative: In summary, this 79-year-old female with a history of chronic tinnitus, anxiety, insomnia, idiopathic peripheral neuropathy, chronic venous insufficiency, atherosclerotic coronary artery disease, asthma, chronic back pain, hypertension, and hyperlipidemia presents to the emergency department today with a wound to the right pretibial area. On initial evaluation patient is afebrile, hemodynamically stable, nontoxic-appearing. Differential diagnosis includes but is not limited to cellulitis, abscess, venous stasis ulcer, DVT. Physical exam consistent with a poorly healing ulcer over the pretibial area with associated cellulitis. It was extending to her ankle and slightly proximal from the area of the ulcer. No systemic symptoms and otherwise stable. Appropriate for outpatient management with oral antibiotics. Administered Bactrim in the emergency department and discharged with an additional 5-day course. She is to follow-up with her PCP, however hospitalization was considered. Critical Care Critical Care Time Critical Care Time: No
[2024-11-01 18:58] VITALS: BP 163/73; PULSE 74; RESP 16; TEMP 36.6; O2SAT 96
== END 2024-11-01 18:59 | disposition home or self-care (01) ==
PROVIDERS: Emergency Provider Student in an Organized Health Care Education/Training Program; PCP Internal Medicine
DX: L03.90 Cellulitis, unspecified (principal); L97.819 Non-pressure chronic ulcer of other part of right lower leg with unspecified severity; I10 Essential (primary) hypertension; I25.10 Atherosclerotic heart disease of native coronary artery without angina pectoris; H93.19 Tinnitus, unspecified ear; F41.9 Anxiety disorder, unspecified; G47.00 Insomnia, unspecified; G60.8 Other hereditary and idiopathic neuropathies; I87.2 Venous insufficiency (chronic) (peripheral); E78.5 Hyperlipidemia, unspecified; J45.909 Unspecified asthma, uncomplicated; G89.29 Other chronic pain; M54.9 Dorsalgia, unspecified; H81.09 Meniere's disease, unspecified ear; G47.30 Sleep apnea, unspecified; M19.90 Unspecified osteoarthritis, unspecified site; R91.8 Other nonspecific abnormal finding of lung field; S81.811A Laceration without foreign body, right lower leg, initial encounter; Z98.41 Cataract extraction status, right eye; Z98.42 Cataract extraction status, left eye; Z87.448 Personal history of other diseases of urinary system; Z96.642 Presence of left artificial hip joint; Z96.698 Presence of other orthopedic joint implants; Z95.5 Presence of coronary angioplasty implant and graft; Z90.49 Acquired absence of other specified parts of digestive tract; Z90.79 Acquired absence of other genital organ(s); Z98.890 Other specified postprocedural states; Z88.1 Allergy status to other antibiotic agents; Z91.041 Radiographic dye allergy status; Z88.8 Allergy status to other drugs, medicaments and biological substances; Z91.048 Other nonmedicinal substance allergy status; Z91.09 Other allergy status, other than to drugs and biological substances; Z82.61 Family history of arthritis; Z82.49 Family history of ischemic heart disease and other diseases of the circulatory system
CPT/HCPCS: 99283

== ENCOUNTER 2024-11-03 11:23 | Emergency (ER) | payer MEDICARE, SELFPAY ==
[2024-11-03 11:25] VITALS: BP 163/96; PULSE 80; RESP 16; TEMP 36.8; O2SAT 98; BMI 26.6
[2024-11-03 11:29] VITALS: BP 149/75; PULSE 88; O2SAT 96
--- NOTE | 2024-11-03 11:44 | PC.NURSE ---
Dr. Liriano at [facility]
--- NOTE | 2024-11-03 12:09 | PC.NURSE ---
Dr. Liriano at bedside
[2024-11-03 12:24] LABS: Basophils # 0.1 K/mm3 (0-0.2); Basophils % 0.9 % (0.1-2.0); Eosinophils # 0.5 K/mm3 (0.0-0.4); Hematocrit 41.4 % (37.0-47.0); Hemoglobin 13.7 g/dL (12.2-16.2); Lymphocytes % 17.4 % (10-50); Mean Corpuscular HGB Conc 33.1 g/dL (31.8-35.4); Mean Corpuscular Hemoglobin 32.5 pg (27.0-31.2); Mean Corpuscular Volume 98.1 fl (81-99); Mean Platelet Volume 10.8 fl (7.4-10.4); Monocytes # 0.5 K/mm3 (0.1-1.0); Monocytes % 7.9 % (1.7-9.3); Neutrophils # 3.8 K/mm3 (1.8-7.8); Neutrophils % 64.8 % (37.0-80.0); Platelet Count 189 K/mm3 (142-424); Red Blood Count 4.22 M/mm3 (4.20-5.40); Red Cell Distribution Width 13.4 % (11.5-17.5); White Blood Count 5.8 K/mm3 (4.8-10.8)
--- NOTE | 2024-11-03 12:27 | ED_ITS ---
Discharge Plan Disposition Patient Disposition: Home, Self-Care Prescriptions Prescriptions: No Action furosemide 20 mg tablet 20 mg PO DAILY Qty: 30 5RF albuterol sulfate 90 mcg/actuation HFA aerosol inhaler 2 inh inhalation Q6H PRN (Reason: shortness of breath or wheezing) 90 Days Qty: 8.5 2RF budesonide-formoterol [Symbicort] 160-4.5 mcg/actuation HFA aerosol inhaler 2 puff inhalation BID 90 Days Qty: 10.2 2RF azelastine 137 mcg (0.1 %) spray,non-aerosol 2 spray intranasal HS 90 Days Qty: 30 2RF Rx Instructions: administer into each nostril fluticasone propionate [Flonase Allergy Relief] 50 mcg/actuation spray,suspension 2 spray intranasal DAILY 90 Days Qty: 16 2RF Rx Instructions: administer into each nostril ipratropium-albuterol 0.5 mg-3 mg(2.5 mg base)/3 mL solution for nebulization 3 ml inhalation Q6H PRN (Reason: shortness of breath or wheezing) Qty: 180 3RF mirtazapine 15 mg tablet 15 mg PO HS Qty: 30 2RF tramadol 50 mg tablet 50 mg PO QID PRN (Reason: Pain) sennosides [senna] 8.6 mg tablet 8.6 mg PO BID PRN (Reason: Constipation) ipratropium-albuterol 0.5 mg-3 mg(2.5 mg base)/3 mL solution for nebulization 3 ml inhalation Q6H PRN (Reason: shortness of breath or wheezing) Qty: 180 3RF gabapentin 100 mg capsule 100 mg PO HS PRN fluticasone propionate 50 mcg/actuation spray,suspension 2 spray intranasal DAILY PRN Rx Instructions: administer into each nostril pantoprazole 40 mg tablet,delayed release (DR/EC) 40 mg PO DAILY Qty: 90 1RF triamcinolone acetonide 0.1 % cream 1 applic topical TID PRN (Reason: rash) Qty: 80 3RF atorvastatin 20 mg tablet 20 mg PO HS Qty: 90 1RF lisinopril 10 mg tablet 10 mg PO BID Qty: 90 1RF potassium chloride [Klor-Con M20] 20 mEq tablet,ER particles/crystals 20 meq PO DAILY Qty: 90 1RF clonazepam 1 mg tablet 1 mg PO BID Qty: 60 0RF sulfamethoxazole-trimethoprim [Bactrim DS] 800-160 mg tablet 1 tab PO BID 5 Days Qty: 10 0RF Referrals Follow up/Referrals: Nabeel Rios MD [Primary Care Provider] - See instructions Activity Restrictions/Add. Instructions Additional Instructions/Restrictions: Call your family doctor to establish care for this visit to the emergency department and schedule follow-up within 48 hours to ensure improvement. If you have any worsening of your condition or any other concerning signs or symptoms, return to the emergency department or your primary care doctor for further evaluation. Clinical Impressions Clinical Impression: Cellulitis of right leg Print Language Print Language: Syrian Discharge ED Provider: Andrea Liriano General Adult HPI General Chief complaint: Extremity Problem,Nontraumatic Stated complaint: Right Leg swelling w/itching redness Time Seen by Provider: 11/03/24 11:28 Mode of Arrival: Family Vehicle Source of Information: Patient, Spouse and Medical Record Description of Symptoms (Recalled from ER Triage Doc. by RN): Pt c/o redness, edema, swelling, and drainage to woud on RLE. States she fell in her home 2 wk ago and her RLE hit the metal leg of her couch. She was seen in ER 2 days ago and started on Bactrim but she feels it is getting worse. States there is increased drainage from her leg wound. Denies any fever. She is also concerned about how long it is taking for her to see a specialist for her leg nerves and vascular problems. History of Present Illness HPI narrative: Please note that above description of symptoms, in this electronic medical record under categorization of recalled from ER triage doctor by RN are reflective of an initial nursing assessment, however, is not reflective of my full history and physical exam that was personally taken and clarified. Consequentially, this preceding description of symptoms, which may include the patient's categorized chief complaint in the EMR, do not reflect my personal clinical impression, and the ultimate description of history of present illness and patient stated complaints should be deferred to this section of the note. Unless stated otherwise or congruent with this section of the note, additional signs, symptoms, or incongruence should be interpreted as inaccurate with my clinical impression. Related Data Home Medications ?Medication ?Instructions ?Recorded ?Confirmed sennosides 8.6 mg tablet (senna) 8.6 mg PO BID PRN Constipation 02/26/19 10/16/24 tramadol 50 mg tablet 50 mg PO QID PRN Pain 02/26/19 10/16/24 fluticasone propionate 50 2 spray intranasal DAILY PRN 05/27/24 10/16/24 mcg/actuation nasal spray,suspension gabapentin 100 mg capsule 100 mg PO HS PRN 05/27/24 10/16/24 Previous Rx's ?Medication ?Instructions ?Recorded ipratropium 0.5 mg-albuterol 3 mg 3 ml inhalation Q6H PRN shortness 11/13/23 (2.5 mg base)/3 mL nebulization of breath or wheezing #180 mL soln furosemide 20 mg tablet 20 mg PO DAILY swelling #30 tabs 12/04/23 pantoprazole 40 mg tablet,delayed 40 mg PO DAILY #90 tabs 06/03/24 release triamcinolone acetonide 0.1 % 1 applic topical TID PRN rash #80 08/07/24 topical cream grams atorvastatin 20 mg tablet 20 mg PO HS Cholesterol #90 tabs 08/20/24 lisinopril 10 mg tablet 10 mg PO BID #90 tabs 08/27/24 albuterol sulfate 90 mcg/actuation 2 inh inhalation Q6H PRN shortness 08/28/24 aerosol inhaler of breath or wheezing 90 days #8.5 grams azelastine 137 mcg (0.1 %) nasal 2 spray intranasal HS 90 days #30 08/28/24 spray mL budesonide-formoterol HFA 160 2 puff inhalation BID 90 days 08/28/24 mcg-4.5 mcg/actuation aerosol #10.2 grams inhaler (Symbicort) fluticasone propionate 50 2 spray intranasal DAILY 90 days 08/28/24 mcg/actuation nasal #16 grams spray,suspension (Flonase Allergy Relief) ipratropium 0.5 mg-albuterol 3 mg 3 ml inhalation Q6H PRN shortness 08/28/24 (2.5 mg base)/3 mL nebulization of breath or wheezing #180 mL soln potassium chloride 20 mEq 20 meq PO DAILY #90 tabs 09/15/24 tablet,extended release(part/cryst) (Klor-Con M) mirtazapine 15 mg tablet 15 mg PO HS #30 tabs 10/09/24 clonazepam 1 mg tablet 1 mg PO BID #60 tabs 10/20/24 sulfamethoxazole 800 1 tab PO BID 5 days #10 tabs 11/01/24 mg-trimethoprim 160 mg tablet (Bactrim DS) Allergies Allergy/AdvReac Type Severity Reaction Status Date / Time adhesive tape Allergy Severe Hives Verified 10/16/24 16:00 chlorhexidine (From Allergy Severe RASH Verified 10/16/24 16:00 Hibiclens) Iodinated Contrast Media Allergy Intermediate Unknown Verified 10/16/24 16:00 (IODINATED CONTRAST MEDIA - allergy IV DYE) reaction povidone-iodine (From Allergy Intermediate I-RASH Verified 10/16/24 16:00 BETADINE) cephalexin Allergy Unknown Unknown Verified 10/16/24 16:00 allergy reaction PFSH PFS Disclaimer: The information contained in this section may have been updated after the patient was seen, as this information can be updated by other users. Medical History Cystocele with prolapse stage 3 Vulvovaginal pain Vulvar lesion Meniere disease CAD (coronary artery disease) Claudication Asthma Dyspnea on exertion Cataract bilateral Sleep apnea Migraine Anxiety Osteoarthritis History of diverticulitis Edema History of anemia Foot pain, bilateral Multiple pulmonary nodules Wheezing Hypertension Dizziness Surgical History History of bladder repair surgery History of left hip replacement Hx of right coronary artery stent placement Hx of shoulder surgery bilateal rotator cuff repair History of carpal tunnel surgery of right wrist History of appendectomy History of cataract surgery serena Hx of cardiac cath stent x1 H/O: hysterectomy Hx of cholecystectomy Family History Mother Rheumatoid aortitis Family/Other Heart attack Social History Smoking Status: Never smoker alcohol intake: never substance use type: denies use current occupational status: retired Travel in the last 8 weeks: None housing: house current occupational exposures/hazards: No caffeine: Yes Have you lived/traveled outside [place] in past 30 days?: No Contact w/someone who lives/traveled outside [place] past 30 days?: No Exposure to someone with infectious disease in past 14 days?: No Do you have a fever (greater than 100.4 F or 38 C)?: No Have you tested positive for COVID-19: No Exposed to someone with COVID-19 in past 14 days?: No Do you have a sore throat?: No Do you have a cough?: No Do you have any weakness?: No Do you have any diarrhea?: No Are you experiencing any unusual bleeding?: No Do you have any muscle aches/pain?: No Do you have any abdominal pain?: No Are you experiencing loss of taste or smell?: No Other Medical History Have you received the Flu Vaccine for this season: No Have you received the Pneumonia Vaccine: No ROS Obtained: Yes All systems reviewed & no additional complaints except as documented Physical Exam General General appearance: alert Head Head exam: atraumatic and normocephalic Eye Eye exam: Present normal appearance, PERRL and EOMI Neck Neck exam: Present normal inspection, full ROM and trachea midline Respiratory Respiratory exam: Present normal lung sounds bilaterally; Absent respiratory distress, wheezes, stridor, accessory muscle use or prolonged expiratory phase Cardiovascular Cardiovascular exam: Present regular rate, normal rhythm and other (Pulses equal symmetric in upper and lower extremities) Abdominal Exam Abdominal exam: Present soft; Absent distention, tenderness or pulsatile mass Extremities Exam Extremities exam: Present edema (Associated erythema anterior aspect of right leg) Neurological Exam Neurological exam: Present alert, oriented X3 and CN II-XII intact; Absent motor sensory deficit Skin Skin exam: Present warm and dry; Absent diaphoresis or erythema Medical Decision Making Medical Records Medical records reviewed: Yes I reviewed the patient's medical records. Screening: Per USPSTF and CDC recommendations, given the prevalence of disease in our region, it is our hospital?s policy to screen for HIV and viral Hepatitis for all patients aged 18 and over and those with ongoing risk factors. Agustin Inquiry Pt receiving controlled substance: No Agustin was queried for this patient: No Vital Signs: 11/03/24 11:25 11/03/24 11:29 Temperature 98.3 F Temperature Source Oral Pulse Rate 88 Pulse Rate [Right] 80 Respiratory Rate 16 Blood Pressure 149/75 H Blood Pressure [Right Arm] 163/96 H Blood Pressure Mean [Right Arm] 118 Blood Pressure Source [Right Arm] Automatic Cuff 02 Sat by Pulse Oximetry 98 96 Oxygen Delivery Method Room Air Room Air Lab Data Lab Results 11/03/24 12:10: WBC 5.8, RBC 4.22, Hgb 13.7, Hct 41.4, MCV 98.1, MCH 32.5 H, MCHC 33.1, RDW 13.4, Plt Count 189, MPV 10.8 H, Neut % (Auto) 64.8, Lymph % (Auto) 17.4, [place] % (Auto) 7.9, Eos % (Auto) 9.0, Baso % (Auto) 0.9, Neut # (Auto) 3.8, Lymph # (Auto) 1.0, [place] # (Auto) 0.5, Eos # (Auto) 0.5 H, Baso # (Auto) 0.1, Sodium 140, Potassium 3.8, Chloride 107, Carbon Dioxide 25, Anion Gap 11.8, BUN 13, Creatinine 0.90, Estimated Creat Clear 53, Estimated GFR 61, Est GFR ( Amer) 73, Glucose 79, Calcium 9.7, Total Bilirubin 0.5, AST 23, ALT 16, Alkaline Phosphatase 66, Total Protein 6.4, Albumin 3.7, Globulin 2.7, Albumin/Globulin Ratio 1.4 11/03/24 12:10 11/03/24 12:10 Orders (Tests/Meds): ED MEDICATIONS Discontinued Medications Generic Name Dose Route Start Last Admin Trade Name Freq PRN Reason Stop Dose Admin Dalbavancin 1,500 mg/ Dextrose 250 mls @ 500 mls/hr 11/03/24 13:30 11/03/24 13:31 IV 11/03/24 13:59 500 mls/hr ONCE ONE Administration ORDERS Category Date Time Status CBC w/Auto Diff [Complete Blood Count Auto Diff] Stat Lab 11/03/24 12:10 Completed CMP [Comprehensive Metabolic Panel] Stat Lab 11/03/24 12:10 Completed Medical Decision Narrative: 79-year-old female presenting with redness and swelling to the anterior garvey. States that she bumped it last week, started to spot, now has a large open area she has redness spreading from it. Was started on Bactrim 2 days prior to this and it has not seemed to be getting any worse. No fevers or chills or systemic signs or symptoms. Patient states that it is red, itchy, made worse with warm water in the shower. Came in for further evaluation. History was obtained via conversation with patient and . On arrival, patient hemodynamically stable, alert, oriented x4, appropriate, GCS 15, moving all extremities spontaneously, pupils equal and reactive to light. Full physical exam performed and significant for well-appearing female no acute distress. She does have swelling, brisk capillary refill, erythema, warmth to the anterior right garvey. Consistent with cellulitis. No moses purulence. Patient placed on continuous cardiac monitoring and continuous pulse ox with initial blood pressure 149/75, heart rate 88, saturation 96% on room air. Labs were checked. On independent interpretation, nonactionable hematologic labs. Patient was given dalbavancin 1500 mg for symptomatic management and correction of underlying abnormalities. Given patient presentation, workup, history, this most likely represents cellulitis without abscess anterior lower extremity. Because patient at baseline without signs or symptoms of clinical decompensation, deemed appropriate for discharge. Results were relayed to patient who voiced understanding and were agreeable to outpatient management and follow up. I discussed my clinical impression with patient and answered all questions. At this time, the evidence for any other entities in the differential is insufficient to warrant any further testing or ED observation. This was explained as well. Advisory was given that persistent or worsening symptoms require further evaluation. I confirmed the understanding of this discussion. Marketing Services Manager disclaimer Much of this encounter note is an electronic supervisor airplane flight attendant spoken language to printed text. Electronic supervisor airplane flight attendant of the spoken language may permit errors. Although I have reviewed the note, some errors may still exist. Critical Care Critical Care Time Critical Care Time: No
[2024-11-03 12:31] LABS: Alanine Aminotransferase 16 U/L (12-78); Albumin Level 3.7 g/dl (3.5-5.0); Albumin/Globulin Ratio 1.4 (1.1-1.8); Alkaline Phosphatase 66 U/L (38-126); Anion Gap 11.8 mEq/L (5-15); Aspartate Amino Transferase 23 U/L (14-36); Bilirubin,Total 0.5 mg/dl (0.2-1.3); Blood Urea Nitrogen 13 mg/dl (7-17); Calcium 9.7 mg/dl (8.4-10.2); Carbon Dioxide 25 mmol/L (22.0-30.0); Chloride 107 mmol/L (98-107); Creatinine Clearance Estimated 53 mL/min (50-200); Estimated Glomerular Filt Rate 61 ml/min (>60); GFR (African American) 73 ML/MIN (>60); Globulin 2.7 g/dL (1.3-3.2); Glucose 79 mg/dl (74-100); Potassium 3.8 mmoL/L (3.5-5.1); Sodium 140 mmol/L (136-145); Total Protein,Serum 6.4 g/dl (6.3-8.2)
[2024-11-03] MEDS: DALBAVANCIN HCL 1,500 MG in DEXTROSE 5 % IN WATER 250 ML 500 MG IV (13:31)
[2024-11-03 14:10] VITALS: BP 140/88; PULSE 72; RESP 17; TEMP 36.7; O2SAT 98
--- NOTE | 2024-11-03 14:49 | PC.NURSE ---
Faxed outpatient & wound care referral to Rehab. Pt also has copy of outpatient order and ph# to call and set up appt.
== END 2024-11-03 14:49 | disposition home or self-care (01) ==
PROVIDERS: Emergency Provider Emergency Medicine; PCP Internal Medicine
DX: R22.41 Localized swelling, mass and lump, right lower limb (principal); L03.115 Cellulitis of right lower limb
CPT/HCPCS: 80053; 85025; 96365; 99284; J0875; J7060

== ENCOUNTER 2024-11-08 11:06 | Emergency (ER) | payer MEDICARE, SELFPAY ==
[2024-11-08 11:22] VITALS: BP 151/67; PULSE 95; RESP 18; TEMP 36.7; O2SAT 98; BMI 29.2
[2024-11-08 11:31] VITALS: BP 135/60; PULSE 87; RESP 18; O2SAT 97
--- NOTE | 2024-11-08 11:36 | ED_ITS ---
Discharge Plan Disposition Patient Disposition: Home, Self-Care Condition: Good Prescriptions Prescriptions: New triamcinolone acetonide 0.1 % cream 1 applic topical BID PRN (Reason: itching) Qty: 453.6 0RF No Action furosemide 20 mg tablet 20 mg PO DAILY Qty: 30 5RF albuterol sulfate 90 mcg/actuation HFA aerosol inhaler 2 inh inhalation Q6H PRN (Reason: shortness of breath or wheezing) 90 Days Qty: 8.5 2RF budesonide-formoterol [Symbicort] 160-4.5 mcg/actuation HFA aerosol inhaler 2 puff inhalation BID 90 Days Qty: 10.2 2RF azelastine 137 mcg (0.1 %) spray,non-aerosol 2 spray intranasal HS 90 Days Qty: 30 2RF Rx Instructions: administer into each nostril fluticasone propionate [Flonase Allergy Relief] 50 mcg/actuation spray,suspension 2 spray intranasal DAILY 90 Days Qty: 16 2RF Rx Instructions: administer into each nostril ipratropium-albuterol 0.5 mg-3 mg(2.5 mg base)/3 mL solution for nebulization 3 ml inhalation Q6H PRN (Reason: shortness of breath or wheezing) Qty: 180 3RF mirtazapine 15 mg tablet 15 mg PO HS Qty: 30 2RF tramadol 50 mg tablet 50 mg PO QID PRN (Reason: Pain) sennosides [senna] 8.6 mg tablet 8.6 mg PO BID PRN (Reason: Constipation) ipratropium-albuterol 0.5 mg-3 mg(2.5 mg base)/3 mL solution for nebulization 3 ml inhalation Q6H PRN (Reason: shortness of breath or wheezing) Qty: 180 3RF gabapentin 100 mg capsule 100 mg PO HS PRN fluticasone propionate 50 mcg/actuation spray,suspension 2 spray intranasal DAILY PRN Rx Instructions: administer into each nostril pantoprazole 40 mg tablet,delayed release (DR/EC) 40 mg PO DAILY Qty: 90 1RF triamcinolone acetonide 0.1 % cream 1 applic topical TID PRN (Reason: rash) Qty: 80 3RF atorvastatin 20 mg tablet 20 mg PO HS Qty: 90 1RF lisinopril 10 mg tablet 10 mg PO BID Qty: 90 1RF potassium chloride [Klor-Con M20] 20 mEq tablet,ER particles/crystals 20 meq PO DAILY Qty: 90 1RF clonazepam 1 mg tablet 1 mg PO BID Qty: 60 0RF sulfamethoxazole-trimethoprim [Bactrim DS] 800-160 mg tablet 1 tab PO BID 5 Days Qty: 10 0RF Referrals Follow up/Referrals: Nabeel Rios MD [Primary Care Provider] - See instructions Activity Restrictions/Add. Instructions Additional Instructions/Restrictions: You were evaluated in the emergency department today. I understand that you feel this is likely related to the dressing that was applied to your leg, however I recommend stopping all new medications that were started around the time that you have developed this rash just to be on the safe side, including antibiotics and the ointment provided to you. I am providing you with a steroid cream to help treat the itching and inflammation of your skin. Apply this twice daily as needed for itching. Take Benadryl every 8 hours as needed for itching. You may also take a nondrowsy allergy medication such as Zyrtec, Claritin, or Ana. Follow-up very closely with your primary care provider for reassessment. Return to the emergency department for new or worsening symptoms such as difficulty breathing, mouth or tongue swelling, or other concerns. Clinical Impressions Clinical Impression: Contact dermatitis, Allergic reaction Instructions Patient Instructions: DI for General Allergic Reactions, DI for Adverse Drug Re action -- Allergic, DI for Skin Abscess Print Language Print Language: Tajik Discharge ED Provider: Magali Jimenez General Adult HPI General Chief complaint: Skin/Abscess/Foreign Body Stated complaint: allergic reaction-rash Time Seen by Provider: 11/08/24 11:12 Mode of Arrival: Ambulatory Source of Information: Patient Description of Symptoms (Recalled from ER Triage Doc. by RN): PT REPORTS ITCHY TO BILATERAL ARMS, BACK AND CHEST THAT STARTED YESTERDAY AM. PT WITH RECENT ED AND PCP FOLLOW-UP FOR TREATMENT OF CELLULITIS OF RIGHT LOWER LEG. PT RECEIVED DALVANCE AND DRESSING APPLIED TO LEG, PT AND PCP FEEL LIKE DRESSING HAD BETADINE OF WHICH PT HAS AN ALLERGY TO History of Present Illness HPI narrative: This patient is a 79-year-old female with a history of hypertension, CAD, migraines, osteoarthritis, M?ni?re's disease presented to the emergency department for evaluation with concern for rash and possible allergic reaction. Patient was evaluated here 11/01/2024 after a wound to her leg had become infected causing cellulitis. She was started on Bactrim, but presented again 11/03/2024 with concerned that the leg looked worse. She was then treated with IV Dalvance and discharged home after reassuring workup and exam. She states that during this visit, she had a dressing applied to her leg that had Xeroform as a nonadherent dressing, and she states her primary care doctor told her that there was Betadine in this dressing, which she is allergic to. She asked me why we would give her things that she is allergic to, however she does not have this listed as an allergy. There is not Betadine and Xeroform, which I informed the patient. She also was started on bacitracin ointment, which she is still using. She notes she has tolerated bacitracin fine in the past. She denies any oropharyngeal pain or swelling, stridor, wheezing, difficulty breathing, abdominal cramping, nausea, vomiting, or diarrhea. No other new exposures noted. Her rash is very itchy on her right lower leg where the dressing was in place, her bilateral arms, her shoulders, and her back. She is requesting a steroid shot. Related Data Home Medications ?Medication ?Instructions ?Recorded ?Confirmed sennosides 8.6 mg tablet (senna) 8.6 mg PO BID PRN Constipation 02/26/19 11/05/24 tramadol 50 mg tablet 50 mg PO QID PRN Pain 02/26/19 11/05/24 fluticasone propionate 50 2 spray intranasal DAILY PRN 05/27/24 11/05/24 mcg/actuation nasal spray,suspension gabapentin 100 mg capsule 100 mg PO HS PRN 05/27/24 11/05/24 Previous Rx's ?Medication ?Instructions ?Recorded ipratropium 0.5 mg-albuterol 3 mg 3 ml inhalation Q6H PRN shortness 11/13/23 (2.5 mg base)/3 mL nebulization of breath or wheezing #180 mL soln furosemide 20 mg tablet 20 mg PO DAILY swelling #30 tabs 12/04/23 pantoprazole 40 mg tablet,delayed 40 mg PO DAILY #90 tabs 06/03/24 release triamcinolone acetonide 0.1 % 1 applic topical TID PRN rash #80 08/07/24 topical cream grams atorvastatin 20 mg tablet 20 mg PO HS Cholesterol #90 tabs 08/20/24 lisinopril 10 mg tablet 10 mg PO BID #90 tabs 08/27/24 albuterol sulfate 90 mcg/actuation 2 inh inhalation Q6H PRN shortness 08/28/24 aerosol inhaler of breath or wheezing 90 days #8.5 grams azelastine 137 mcg (0.1 %) nasal 2 spray intranasal HS 90 days #30 08/28/24 spray mL budesonide-formoterol HFA 160 2 puff inhalation BID 90 days 08/28/24 mcg-4.5 mcg/actuation aerosol #10.2 grams inhaler (Symbicort) fluticasone propionate 50 2 spray intranasal DAILY 90 days 08/28/24 mcg/actuation nasal #16 grams spray,suspension (Flonase Allergy Relief) ipratropium 0.5 mg-albuterol 3 mg 3 ml inhalation Q6H PRN shortness 08/28/24 (2.5 mg base)/3 mL nebulization of breath or wheezing #180 mL soln potassium chloride 20 mEq 20 meq PO DAILY #90 tabs 09/15/24 tablet,extended release(part/cryst) (Klor-Con M) mirtazapine 15 mg tablet 15 mg PO HS #30 tabs 10/09/24 clonazepam 1 mg tablet 1 mg PO BID #60 tabs 10/20/24 sulfamethoxazole 800 1 tab PO BID 5 days #10 tabs 11/01/24 mg-trimethoprim 160 mg tablet (Bactrim DS) triamcinolone acetonide 0.1 % 1 applic topical BID PRN itching 11/08/24 topical cream #453.6 grams Allergies Allergy/AdvReac Type Severity Reaction Status Date / Time adhesive tape Allergy Severe Hives Verified 11/08/24 11:35 chlorhexidine (From Allergy Severe RASH Verified 11/08/24 11:35 Hibiclens) Iodinated Contrast Media Allergy Intermediate Unknown Verified 11/08/24 11:35 (IODINATED CONTRAST MEDIA - allergy IV DYE) reaction povidone-iodine (From Allergy Intermediate I-RASH Verified 11/08/24 11:35 BETADINE) cephalexin Allergy Unknown Unknown Verified 11/08/24 11:35 allergy reaction bismuth tribromophenate Allergy Rash Verified 11/08/24 11:44 (From Xeroform) petrolatum,white (From Allergy Rash Verified 11/08/24 11:44 Xeroform) [facility] Disclaimer: The information contained in this section may have been updated after the patient was seen, as this information can be updated by other users. Medical History Cystocele with prolapse stage 3 Vulvovaginal pain Vulvar lesion Meniere disease CAD (coronary artery disease) Claudication Asthma Dyspnea on exertion Cataract bilateral Sleep apnea Migraine Anxiety Osteoarthritis History of diverticulitis Edema History of anemia Foot pain, bilateral Multiple pulmonary nodules Wheezing Hypertension Dizziness Surgical History History of bladder repair surgery History of left hip replacement Hx of right coronary artery stent placement Hx of shoulder surgery bilateal rotator cuff repair History of carpal tunnel surgery of right wrist History of appendectomy History of cataract surgery serena Hx of cardiac cath stent x1 H/O: hysterectomy Hx of cholecystectomy Family History Mother Rheumatoid aortitis Family/Other Heart attack Social History Smoking Status: Never smoker alcohol intake: never substance use type: denies use current occupational status: retired Travel in the last 8 weeks: None housing: house current occupational exposures/hazards: No caffeine: Yes Have you lived/traveled outside US in past 30 days?: No Contact w/someone who lives/traveled outside US past 30 days?: No Exposure to someone with infectious disease in past 14 days?: No Do you have a fever (greater than 100.4 F or 38 C)?: No Have you tested positive for COVID-19: No Exposed to someone with COVID-19 in past 14 days?: No Do you have a sore throat?: No Do you have a cough?: No Do you have any weakness?: No Do you have any diarrhea?: No Are you experiencing any unusual bleeding?: No Do you have any muscle aches/pain?: No Do you have any abdominal pain?: No Are you experiencing loss of taste or smell?: No Other Medical History Have you received the Flu Vaccine for this season: No Have you received the Pneumonia Vaccine: No ROS Obtained: Yes All systems reviewed & no additional complaints except as documented Physical Exam General General appearance: alert and in no apparent distress Head Head exam: atraumatic and normocephalic Eye Eye exam: Present normal appearance, PERRL and EOMI ENT ENT exam: Present normal exam, normal oropharynx, mucous membranes moist and normal external ear exam Neck Neck exam: Present normal inspection, full ROM and trachea midline; Absent tenderness Chest Chest inspection: Present normal inspection and symmetric chest wall rise; Absent tenderness Respiratory Respiratory exam: Present normal lung sounds bilaterally; Absent respiratory distress, wheezes, stridor or accessory muscle use Cardiovascular Cardiovascular exam: Present regular rate and normal rhythm Abdominal Exam Abdominal exam: Present soft; Absent distention, tenderness or guarding Extremities Exam Extremities exam: Present normal inspection, full ROM and normal capillary refill; Absent tenderness or edema Back Exam Back exam: Present normal inspection and full ROM; Absent tenderness Neurological Exam Neurological exam: Present alert, oriented X3, CN II-XII intact and normal gait; Absent motor sensory deficit Psychiatric Psychiatric exam: Present normal affect and normal mood Skin Skin exam: Present warm, dry, rash and other (Urticarial rash to the bilateral upper extremities, shoulders, and back. Erythema with excoriations and skin breakdown to the right lower leg at the site of the previous dressing that she had applied) Medical Decision Making Medical Records Medical records reviewed: Yes I reviewed the patient's medical records. Screening: Per USPSTF and CDC recommendations, given the prevalence of disease in our region, it is our hospital?s policy to screen for HIV and viral Hepatitis for all patients aged 18 and over and those with ongoing risk factors. Agustin Inquiry Pt receiving controlled substance: No Vital Signs: 11/08/24 11:22 Temperature 98.0 F Temperature Source Oral Pulse Rate [Radial] 95 H Respiratory Rate 18 Blood Pressure [Right Arm] 151/67 H Blood Pressure Mean [Right Arm] 95 Blood Pressure Source [Right Arm] Automatic Cuff Blood Pressure Position [Right Arm] Sitting 02 Sat by Pulse Oximetry 98 Oxygen Delivery Method Room Air Lab Data Lab results reviewed: Yes I reviewed the patient's lab results. Orders (Tests/Meds): ED MEDICATIONS Discontinued Medications Generic Name Dose Route Start Last Admin Trade Name Freq PRN Reason Stop Dose Admin Dexamethasone Sodium Phosphate 10 mg 11/08/24 11:31 Dexamethasone 4mg/Ml 1ml Vial IM 11/08/24 11:32 ONCE ONE Hydroxyzine Pamoate 25 mg 11/08/24 11:31 Hydroxyzine Pamoate 25mg Capsule PO 11/08/24 11:32 ONCE ONE Medical Decision Narrative: In summary, this patient is a 79-year-old female presenting to the Emergency Department for evaluation of itchy rash. Differential diagnoses considered include but are not limited to contact dermatitis, allergic action, anaphylaxis, psoriasis, eczema, viral exanthem. Ruling out the most morbid conditions drove assessment. It should be noted patient's history includes CAD, hypertension, migraines, M?ni?re's disease which may or may not be at goal therapy. This complicates all aspects of care by increasing patient's risk for morbidity. I reviewed patient's past medical records and noted previous evaluations in the ED for cellulitis of her right leg as detailed in HPI, as well as all new medication exposures. I also reviewed her prior allergies, including Betadine/iodine and tape. On exam, the patient has excoriations, erythema, and irritation to the right lower leg at the site of previous dressing. I feel this is likely consistent with contact dermatitis. She also has urticarial rash to the bilateral upper extremities, her shoulders, and back. No oropharyngeal swelling/edema, no stridor, no wheezing, no shortness of breath, no abdominal symptoms to suggest anaphylaxis. It is possible she is having allergic reaction to something that she is been exposed to. She remains adamant that it is the Xeroform, and it is possible that it could be, however she has had multiple recent new exposures, including Dalvance, Bactrim, bacitracin. I advised to her that I recommend stopping all new medications, ointments/creams, or any potential new exposures otherwise. She is requesting a steroid shot as opposed to oral steroids, so I gave her IM dexamethasone. 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 She is doing well from a cellulitis standpoint and her leg overall looks good with the exception of the excoriations and skin irritation. Ultimately, I feel she is appropriate for discharge home with prescription for triamcinolone cream and instructions for supportive management, including Benadryl as needed for itching, wound care, close follow-up with PCP. Strict return precautions were given Critical Care Critical Care Time Critical Care Time: No
[2024-11-08] MEDS: DEXAMETHASONE 4MG/ML 1ML VIAL 10 MG IM (11:44)
[2024-11-08] MEDS: hydrOXYzine pamoate 25MG CAPSULE 25 MG PO (11:44)
[2024-11-08 12:05] VITALS: BP 135/60; PULSE 90; RESP 18; TEMP 36.7; O2SAT 98
--- OUTSIDE RECORDS SUMMARY | 2024-11-13 19:45 | XMS_ITS | Clinical Summary ---
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 Name Role Phone JOHNSON GONCALVES DO Primary Care Provider [phone] Adrián Swenson MD Unavailable [phone] Rafi Roberts MD Unavailable [phone] Reason for Visit and Chief Complaint The Chief Complaint is: low back pain Problems Includes: Problems addressed during this encounter and other active Problems Current Visit Onset Date Resolved Date Provider Conditio n Status Lower Back Pain 01/07/2024 Constantine Garcia PA-C A ctive Last Documented On 4 1:00PM ; [facility], [facility] Past Visits Onset Date Resolved Date Provider Condition Status Joint Pain in the Left Hip 07/19/2016 Catracho Rubio MD Active Last Documented On 6 2:14PM ; [facility], [facility] Joint Pain, Localized in the Knee 10/14/2013 Rebecca Rubio MD Active Last Documented On 4 2:09PM ; [facility], [facility] Plan of Treatment - Patient screened for future fall risk: documentation of any fall with injury in past year - Last Documented On 01/11/2024 11:55AM ; [facility], [facility] Fall Risk Assessment: This patient has been identified as a fall risk. Balance/gait along with postural blood pressure, vision and home fall hazards have been assessed. Medications have been reviewed, and recommendations made with regard to contributing factors for future falls. Plan of care: Consideration of vitamin D supplementation along with balance and strength training with consideration for formal physical therapy has been discussed with the patient. - Last Documented On 01/11/2024 11:55AM ; [facility], [facility] Patient was seen by myself Constantine Garcia PA-C. Patient will follow up with Dr. English after lumbar spine MRI - Last Documented On 01/11/2024 11:55AM ; [facility], [facility] Pending Tests Order Diagnosis Results Due Ordering P rovider Radiology - MRI MRI Lumbar Spine Low back pain, unspecified 01/21/24 Constantine Garcia PA-C Last Documented On 4 11:55AM ; [facility], [facility] Instructions to patient Lose weight Last Documented On 4 2:08PM ; [facility], [facility] Assessments Includes: Assessments from this encounter Findings - Overweight - Last Documented On 01/11/2024 11:55AM ; [facility], [facility] Low back pain with previous lumbar fusion - Last Documented On 01/11/2024 11:55AM ; [facility], [facility] Lumbar DDD - Last Documented On 01/11/2024 11:55AM ; [facility], [facility] Instructions Includes: Instructions from this encounter Instructions to patient Lose weight Last Documented On 4 2:08PM ; [facility], [facility] Medical Equipment - Implanted Devices Includes: Current Devices No Medical Equipment Recorded Medications Includes: Medications discussed during this encounter and other current Medications Discontinued / Stopped on this date Kathleen Sanderson APRN on 12/27/2023 Phenazopyridine HCl 200 MG O ral Tablet Provider: Kathleen jackson APRN Diagnosis: Last Documented On 4 1:02PM By Radha Espinal [facility], [facility] Phenazopyridine HCl 200 MG Oral Tablet Pr ovider: Diagnosis: Last Documented On 4 1:02PM By Radha Espinal [facility], [facility] traMADol HCl 50 MG Oral Tablet Provider: MARIIA OLIVAS MD Diagnosis: Last Documented On 4 1:31PM By Radha LEIGH [facility], [facility] traMADol HCl 50 MG Oral Tablet Provider: MARIIA OLIVAS MD Diagnosis: Last Documented On 4 1:02PM By Radha [facility] Nitrofurantoin Monohyd Macro 100 MG Oral Capsule Provider: Kathleen jackson APRN Diagnosis: Last Documented On 4 1:02PM By Radha Stafford ; [facility] Gabapentin 100MG Oral Capsule Provider: Diagnosis: Last Documented On 4 1:01PM By Radha Stafford ; [facility] EnovaRX-traMADol 5% External Cream Provid er: Diagnosis: Last Documented On 4 1:01PM By Radha Stafford ; [facility] Cyanocobalamin 2500MCG Subli ngual Tablet Sublingual Provider: MARIIA OLIVAS MD Diagnosis: Last Documented On 4 1:01PM By Radha Stafford ; [facility] Bystolic 2.5MG Oral Tablet Provider: Se OLIVAS MD Diagnosis: Last Documented On 4 1:01PM By Radha Stafford ; [facility] clonazePAM 0.25MG Oral Tablet Disintegrating Provider: MARIIA OLIVAS MD Diagnosis: Last Documented On 4 1:01PM By Radha Stafford ; [facility] Plavix 75 MG Tablet Provider: Diagnosis: Last Documented On 4 1:01PM By Radha Stafford ; [facility] Aspirin 81 MG Tablet Delayed Release Prov ider: Diagnosis: Last Documented On 4 1:01PM By Radha Stafford ; [facility] Bystolic 5 MG Tablet Provider: Diagnosis: Last Documented On 4 1:01PM By Radha Stafford ; [facility] ClonazePAM 2 MG Tablet Provider: EARL GONCALVES DO Diagnosis: Last Documented On 4 1:01PM By Radha Stafford ; [facility] Klor-Con 10 10 MEQ Tablet Extended Release Provider: JOHNSON GONCALVES DO Diagnosis: Last Documented On 4 1:01PM By Radha Stafford ; [facility] Linzess 145 MCG OR CAPS Provider: Diagnosis: Last Documented On 4 1:01PM By Radha Stafford ; [facility], [facility] Ultram 50 MG OR TABS Provider: Diagnosis: Last Documented On 4 1:01PM By Radha Stafford ; [facility] MOTRIN 800 MG OR TABS Provider: Diagnosis: Last Documented On 4 1:01PM By Radha Stafford ; [facility] Lisinopril 20 MG OR TABS Provider: Diagnosis: Last Documented On 4 1:01PM By Radha Stafford ; [facility], [facility] Current Medications (continue as prescribed) diphenhydrAMINE HCl 5 MG/ML Oral Suspension Reconstitu paras 01/07/2024 Provider: Diagnosis: Last Documented On 4 1:30PM By Radha Stafford ; [facility], [facility] Klor-Con M20 20 MEQ Oral Tablet Extended Release 01/06 Provider: Diagnosis: Last Documented On 4 1:31PM By Radha Stafford ; [facility], [facility] Phenazopyridine HCl 200 MG Oral Tablet 01/04/2024 Pr ovider: Diagnosis: Last Documented On 4 1:02PM By Radha Stafford ; [facility], [facility] Symbicort 160-4.5 MCG/ACT Inhalation Aerosol Provider: Diagnosis: Last Documented On 4 1:02PM By Radha Stafford ; [facility], [facility] Nitrofurantoin Monohyd Macro 100 MG Oral Capsule 12/18 Provider: Diagnosis: Last Documented On 4 1:02PM By Radha Stafford ; [facility] Premarin 0.625 MG/GM Vaginal Cream 12/14/2023 Provid er: Diagnosis: Last Documented On 4 1:02PM By Radha Stafford ; [facility], [facility] traMADol HCl 50 MG Oral Tablet 12/14/2023 Provider: MARIIA OLIVAS MD Diagnosis: Last Documented On 4 1:02PM By Radha Stafford ; [facility] Nystatin [id number] UNIT/GM External Ointment 12/03/2023 Provider: Diagnosis: Last Documented On 4 1:02PM By Radha Stafford ; [facility], [facility] Atorvastatin Calcium 20 MG Oral Tablet 11/21/2023 Pr ovider: MARIIA OLIVAS MD Diagnosis: Last Documented On 4 1:30PM By Radha Stafford ; [facility], [facility] Potassium Chloride Zaina ER 2 0 MEQ Oral Tablet Extended Release 09/08/2023 Provider: Kathleen Sanderson APRN Diagnosis: Last Documented On 4 1:02PM By Radha Stafford ; [facility], [facility] Furosemide 20 MG Oral Tablet 08/16/2023 Provider: Kathleen Sanderson APRN Diagnosis: Last Documented On 4 1:02PM By Radha Stafford ; [facility], [facility] Ipratropium-Albuterol 0.5-2.5 (3) MG/3ML Inhalat ion Solution 08/01/2023 Provider: Diagnosis: Last Documented On 4 1:31PM By Radha Stafford ; [facility], [facility] Medications Administered Includes: Administered Medications from this encounter No Administered Medications Recorded Vital Signs Includes: Vital Signs from this encounter Vital Name 01/07/2024 02:08P Height (in) 61 Weight (lb) 174 Body Mass Index 32.9 Body Surface Area 1.8 Pain Level 10 Note: lc Last Documented: On 01/07/2024 2:08PM ; [facility], [facility] Results Includes: Results discussed during this encounter No Results Recorded For Specified Dates History of Present Illness Includes: History of Present Illness from this encounter RAFAELA Hayward is a 78 year old female. - Allergy list reviewed - Problem list reviewed - Medication list reviewed - Previous history of new onset pain Injury is not work related or an automotive accident - Pain is constant (100% of the time) - Pain is dull, aching - Patient pain level from 1-10: 10 - Yes, previous treatment. PCP Dr. Xie ? History of Injections Dr. Xie - - Review of medications documented Patient is here today complaining of low back pain and bilateral leg numbness and tingling she feels that her legs are numb from the knee down to her feet. She has had previous lower back surgery she believes in 2013 she says her back bothers her all the time she previously was seeing Dr. Xie with pain management and has been getting epidurals and had 1 last year which they helped temporarily. She denies any bowel or bladder issues with this. She states she also has difficulty standing walking due to the pain Social History Description Last Updated No recent change in diet 01/07/2024 Last Documented On 4 11:55AM ; [facility] Not a current smoker. 01/07/2024 Last Documented On 4 11:55AM ; [facility] No caffeine use 06/11/2019 Last Documented On 4 1:02PM ; [facility] No recent change in diet 07/19/2016 Last Documented On 4 1:02PM ; [facility] Not exercising regularly 07/19/2016 Last Documented On 4 1:02PM ; [facility] Not using alcohol 07/19/2016 Last Documented On 4 1:02PM ; [facility] Not using drugs 07/19/2016 Last Documented On 4 1:02PM ; [facility] No tobacco use 10/14/2013 Last Documented On 4 1:02PM ; [facility] Smoking Status Unknown Procedures and Surgical History Includes: Procedures from this encounter Procedures Code Diagnosis Performing Provider Service Location Service Date X-RAY EXAM OF LOWER SPINE 2-3 VIEWS LIMITED 97854 Other intervertebral disc degeneration, lumbar region, Fusion of spine, lumbar region Constantine Garcia PA-C [facility] 01/07/2024 Last Documented On 4 7:11AM ; [facility] Surgical History Last Updated History of History of Gallbladder 2023 Last Documented On 4 11:55AM ; [facility] History of total hip replacement 024 Last Documented On 4 11:55AM ; [facility] History of appendectomy 09/24/2019 Last Documented On 4 1:02PM ; [facility] History of back surgery 09/24/2019 Last Documented On 4 1:02PM ; [facility] History of hysterectomy 09/24/2019 Last Documented On 4 1:02PM ; [facility] Medical History Includes: Medical History addressed during this encounter Description Last Updated History of asthma 01/07/2024 Last Documented On 4 11:55AM ; [facility] History of Hypertension 01/07/2024 Last Documented On 4 11:55AM ; [facility] History of Irregular Heartbeat 4 Last Documented On 4 11:55AM ; [facility] History of Liver Disease 01/07/2024 Last Documented On 4 11:55AM ; [facility] History of Sleep Apnea 01/07/2024 Last Documented On 4 11:55AM ; [facility] left carpal tunnel ~right and left arm r otator cuff ~blood transfusion 09/24/2019 Last Documented On 4 1:02PM ; [facility] A recent immunization for pneumococcal p neumonia 06/201609/24/2019 Last Documented On 4 1:02PM ; [facility] Arthritic joint problems 09/24/2019 Last Documented On 4 1:02PM ; [facility] Gallbladder disease 09/24/2019 Last Documented On 4 1:02PM ; [facility] History of diverticulitis of colon 09/24 Last Documented On 4 1:02PM ; [facility] History of hepatitis 09/24/2019 Last Documented On 4 1:02PM ; [facility] Intermittent hypertension 09/24/2019 Last Documented On 4 1:02PM ; [facility] Family History Includes: Family History addressed during this encounter Description Last Updated Family history of cancer 09/24/2019 Last Documented On 4 1:02PM ; [facility] Family history of heart disease 09/24/19 20 Last Documented On 4 1:02PM ; [facility] Family history of hypertension 0 Last Documented On 4 1:02PM ; [facility] Family history of rheumatoid arthritis m other 09/24/2019 Last Documented On 4 1:02PM ; [facility] Review of Systems Includes: Review of Systems from this encounter Systemic: Feeling tired. No recent weight loss. Recent weight gain. Head: No headache and no sinus pain. Eyes: No vision problems, no Cataracts, no Glasses/Contacts, and no Glaucoma. Otolaryngeal: No hearing loss. Tinnitus. Cardiovascular: No chest pain or discomfort. Palpitations and Hypertension. No High Cholesterol. Pulmonary: Daytime asthma symptoms. No chronic cough. Wheezing. Gastrointestinal: No heartburn and no abdominal pain. No Indigestion and no Peptic Ulcer. GI Stomach Bleed. No Ulcers and no Acid Reflux. Endocrine: No hot flashes. Muscle weakness. No Diabetes, no Hypothyroid, and no Hyperthyroid. Hematologic: No easy bleeding. A tendency for easy bruising. No Anemia. Musculoskeletal: Arthritis, lower back pain, soft tissue swelling, and pain localized to one or more joints. Neurological: Dizziness. No convulsions. Numbness. Psychological: Anxiety. No emotional lability and no depression. Insomnia. Not crying for no reason. Skin: No dry skin. No Ulcers, no Scars, and no rash. Allergic and Immunologic: No complaint of seasonal allergic reaction. Mental Status Includes: Mental Status from this encounter Description Anxiety Functional Status Includes: Functional Status from this encounter No Functional Status Recorded Physical Exam Includes: Physical Exam from this encounter Allergies Includes: Active Allergies Substance Type Reaction Onset Date Resolved Date Statu s nickel allergy Allergy 12/04/2018 Acti ve Last Documented On 4 9:47AM ; [facility] Keflex Allergy 10/14/2013 Active Last Documented On 4 9:47AM ; [facility] Betadine Allergy 10/14/2013 Active Last Documented On 4 9:47AM ; [facility] Bactroban Allergy 03/28/2019 Active Last Documented On 4 9:47AM ; [facility] Encounters Encounter Provider Location Date Check-In Time Check-Out Time Diagnosis Physician Specified Constantine Garcia PA-C [facility] 01/07/20 24 12:57PM 2:00PM Overweight Insurance Includes: Active Insurance Policies Plan Name Member ID Group # Subscriber Relationship Effect etelvina Dates 1 - [employer] [id number] Samara Hayward Self 07/16/2019 - Unknown Clinical Notes Includes: Clinical Notes from this encounter * Progress note Date Encounter Last Documented by 01/07/2024 Physician Specified Last ivan crain on 01/11/2024; 11:55 AM, Constantine Garcia PA-C; [facility], [facility] Active Problems & Conditions - Joint Pain in the Left Hip - Joint Pain, Localized in the Knee - Lower Back Pain Chief Complaint The Chief Complaint is: Low back pain. Low back pain Referred Here Referred by Self. History of Present Illness Samara Hayward is a 78 year old female. - Allergy list reviewed - Problem list reviewed - Medication list reviewed - Previous history of new onset pain Injury is not work related or an automotive accident - Pain is constant (100% of the time) - Pain is dull, aching - Patient pain level from 1-10: 10 - Yes, previous treatment. PCP Dr. Xie - History of Injections Dr. Xie - - Review of medications documented Patient is here today complaining of low back pain and bilateral leg numbness and tingling she feels that her legs are numb from the knee down to her feet. She has had previous lower back surgery she believes in 2013 she says her back bothers her all the time she previously was seeing Dr. Xie with pain management and has been getting epidurals and had 1 last year which they helped temporarily. She denies any bowel or bladder issues with this. She states she also has difficulty standing walking due to the pain Current Medication - Atorvastatin Calcium 20 MG Oral Tablet 90 days, 0 refills - diphenhydrAMINE HCl 5 MG/ML Oral Suspension Reconstituted take as directed 0 days, 0 refills - Furosemide 20 MG Oral Tablet 30 days, 0 refills - Ipratropium-Albuterol 0.5-2.5 (3) MG/3ML Inhalation Solution 15 days, 0 refills - Klor-Con M20 20 MEQ Oral Tablet Extended Release 0 days, 0 refills - Nitrofurantoin Monohyd Macro 100 MG Oral Capsule 7 days, 0 refills - Nystatin [id number] UNIT/GM External Ointment 10 days, 0 refills - Phenazopyridine HCl 200 MG Oral Tablet 3 days, 0 refills - Potassium Chloride Zaina ER 20 MEQ Oral Tablet Extended Release 90 days, 0 refills - Premarin 0.625 MG/GM Vaginal Cream 30 days, 0 refills - Symbicort 160-4.5 MCG/ACT Inhalation Aerosol 30 days, 0 refills - traMADol HCl 50 MG Oral Tablet 30 days, 0 refills Past Medical/Surgical History Reported: Medical: Gallbladder disease and joint problems arthritic. Intermittent hypertension. Immunization History: Recent immunization for pneumococcal pneumonia 06/2016. Diagnoses: Asthma Irregular Heartbeat Sleep Apnea Liver Disease Hypertension. Diverticulitis of colon Hepatitis Left carpal tunnel right and left arm rotator cuff blood transfusion. Surgical: - Appendectomy - Hysterectomy - History of Gallbladder - Back surgery - Total hip replacement Social History Not a current smoker. Current diet: No recent change in diet. No recent change in diet. Caffeine use: No caffeine use. Tobacco use: No tobacco use. Alcohol: Not using alcohol. Drug Use: Not using drugs. Habits: Not exercising regularly. Allergies - Bactroban - Betadine - Keflex - nickel allergy Family History Cancer Heart disease Systemic hypertension Rheumatoid arthritis mother Review Of Systems Systemic: Feeling tired. No recent weight loss. Recent weight gain. Head: No headache and no sinus pain. Eyes: No vision problems, no Cataracts, no Glasses/Contacts, and no Glaucoma. Otolaryngeal: No hearing loss. Tinnitus. Cardiovascular: No chest pain or discomfort. Palpitations and Hypertension. No High Cholesterol. Pulmonary: Daytime asthma symptoms. No chronic cough. Wheezing. Gastrointestinal: No heartburn and no abdominal pain. No Indigestion and no Peptic Ulcer. GI Stomach Bleed. No Ulcers and no Acid Reflux. Endocrine: No hot flashes. Muscle weakness. No Diabetes, no Hypothyroid, and no Hyperthyroid. Hematologic: No easy bleeding. A tendency for easy bruising. No Anemia. Musculoskeletal: Arthritis, lower back pain, soft tissue swelling, and pain localized to one or more joints. Neurological: Dizziness. No convulsions. Numbness. Psychological: Anxiety. No emotional lability and no depression. Insomnia. Not crying for no reason. Skin: No dry skin. No Ulcers, no Scars, and no rash. Allergic and Immunologic: No complaint of seasonal allergic reaction. Physical Findings - Vitals taken 01/07/2024 02:08 pm lc Height 61 in Weight 174 lbs Body Mass Index 32.9 kg/m2 Body Surface Area 1.8 m2 Pain Level 10 Patient uses a cane to walk with Previous incision with the back was healed Varicose vein lower extremities 4+ out of 5 EHL gastrocs quadriceps tibialis anterior strength bilaterally Negative straight leg raise bilaterally Blunted Achilles and patellar reflexes bilaterally Tests Two views of the lumbar spine shows previous fusion at L4-L5 degenerative changes at L5-S1 it looks like she has an auto fusion at L3-L4 and L2-L3 January 07, 2024 Assessment - Overweight Low back pain with previous lumbar fusion Lumbar DDD Previous Tests Available previous imaging studies were reviewed Available previous history reviewed Counseling/Education - Tobacco non-user - Use of tobacco assessment performed - Lose weight Plan StartCited - Low back pain, unspecified Radiology/MRI: MRI Lumbar Spine Instructions: MRI LSPINE EndCited - Patient screened for future fall risk: documentation of any fall with injury in past year Fall Risk Assessment: This patient has been identified as a fall risk. Balance/gait along with postural blood pressure, vision and home fall hazards have been assessed. Medications have been reviewed, and recommendations made with regard to contributing factors for future falls. Plan of care: Consideration of vitamin D supplementation along with balance and strength training with consideration for formal physical therapy has been discussed with the patient. Patient was seen by myself Constantine Garcia PA-C. Patient will follow up with Dr. English after lumbar spine MRI Notes This dictation was done with voice recognition software and may contain errors and omissions. Care Team - Adrián Swenson
--- OUTSIDE RECORDS SUMMARY | 2024-11-13 19:46 | XMS_ITS | Data Portability ---
Author Organization [facility] ADMIN Address [address] [place] [id number] Care Team Providers Care Animal Treatment Investigator Name Role Phone YAMILETH IBRAHIM Primary Care Provider Assessment No assessment recorded. Plan of Treatment Reminders Order Date Submit Date Provider Last Modified By Organization Details Last Modified Time Details Appointments None record ed. Lab None record ed. Referral None record ed. Procedures None record ed. Surgeries None record ed. Imaging None record ed. Medication Orders None record ed. Patient TargetsNo targets recorded. Patient InstructionsNo instructions recorded. Reason for Referral None Reported. Results Created Date Observation Date Name Description Value Unit Range Abnormal Flag Note LastModifiedBy Organization Detail LastModifiedTime 02/29/20 23 07/15/2015 audio gram No observ ation record ed. BARCODE Not Available 2022 14:32:57 03/06/20 audio gram No observ ation record ed. [place] Not Available 2022 15:06:10 03/06/2005/09/2021 audio gram No observ ation record ed. BARCODE Not Available 2022 15:12:24 Result Notes None recorded. Procedures Surgical History Date Name Laterality Status Provider Name and Address Organization Details Recorded Time repair of rectocele completed Elaine Rocha [facility] & [place] 06/19/2023 11:32:42 repair of rotator cuff by suture completed Elaine ZIMMERMAN [facility] & [place] 06/19/2023 11:33:26 extraction of cataract completed Elaineher Rocha [facility] & [place] 06/19/2023 11:33:39 Carpal tunnel surgery completed Elaine Aj ZIMMERMAN [facility] & [place] 06/19/2023 11:33:53 Stent Placement completed Elaineher Aj DOUGLAS [facility] & [place] 06/19/2023 11:34:56 procedure on gallbladder completed Elaine DOUGLAS [facility] [place] 06/19/2023 11:35:47 Appendectomy completed Elaine DOUGLAS [facility] [place] 06/19/2023 11:35:59 hysterectomy completed Elaine DOUGLAS [facility] [place] 06/19/2023 11:36:08 Imaging Results Imaging Date Name Status LastModified by Organiz ation Details LastModified Time 07/15/2015 audiogram completed [facility] Information no t available 02/28/2023 14:32:57 03/06/2023 audiogram completed [email or web address] Information no t available 03/06/2023 15:06:10 05/09/2021 audiogram completed [facility] Information no t available 03/06/2023 15:12:24 Procedure Notes None recorded. Medical Equipment None Reported. Allergies Allergen ID Allergen Name Allergen Category Reaction Reaction Severity Criticality Documentation Date Start Date Code Code System Note Provider Name and Address Organization Details Recorded Time 199381 Keflex medicatio n Not available Not available Not available 06/18/2023 7 RxNorm ELSIE Sheppard [facility] & [place] 3 14:26:14 852192 iodine medicatio n Not available Not available Not available 06/18/2023 5933 RxNorm ELSIE Sheppard [facility] [place] 3 14:26:25 947958 Betadine medicatio n Not available Not available Not available 06/18/202399602 0 RxNorm ELSIE Sheppard [facility] [place] 3 14:26:49 671506 Hibiclens medicatio n Not available Not available Not available 06/18/202306416 2 RxNorm ELSIE Sheppard [facility] [place] 3 14:26:55 420186 adhesive tape environme nt,medica tion Not available Not available Not available 06/18/2023 54525 UNK ELSIE Sheppard [facility] & [place] 3 14:27:03 [id number] Augmentin medicatio n Not available Not available Not available 06/18/2023 64906 2 RxNorm Elaine Rocha [facility] [place], [place] - [facility] - [place] & [place] 3 14:27:09 Medications Name Sig Start Date Stop Date Status Note LastModified by Organization Details LastModified Time doxycycline hyclate 100 mg capsule TAKE 1 CAPSULE BY MOUTH TWICE DAILY FOR 10 DAYS active Not Available Not Available No t Available atorvastati n 20 mg tablet TAKE 1 TABLET BY MOUTH ONCE DAILY active Not Available Not Available No t Available ipratropium 0.5 mg-albutero l 3 mg (2.5 mg base)/3 mL nebulizatio n soln USE 3 ML IN NEBULIZER EVERY 6 HOURS NEEDED FOR SHORTNESS OF BREATH FOR WHEEZING active Not Available Not Available No t Available trazodone 50 mg tablet TAKE 1 TABLET BY MOUTH ONCE DAILY AT BEDTIME active Not Available Not Available No t Available lisinopril 20 mg-hydrochl orothiazide 12.5 mg tablet TAKE 1 TABLET BY MOUTH ONCE DAILY 03/06 completed Not Available Not Available Not Available nystatin 100,000 unit/gram topical ointment APPLY TOPICALLY TO AFFECTED AREA THREE TIMES DAILY NEEDED FOR VAGINAL IRRITATIO N active Not Available Not Available No t Available metoprolol succinate ER 50 mg tablet,exte nded release 24 hr TAKE 1 TABLET BY MOUTH ONCE DAILY active Not Available Not Available No t Available phenazopyri dine 200 mg tablet TAKE 1 TABLET BY MOUTH THREE TIMES DAILY(AFT ER MEALS) NEEDED FOR BURNING WITH URINATION FOR 3 DAYS active Not Available Not Available No t Available lisinopril 20 mg tablet TAKE 1 & 1/2 (ONE & ONE-HALF) TABLETS BY MOUTH IN THE MORNING AND 1 TABLET IN THE EVENING active Not Available Not Available No t Available prednisone 20 mg tablet TAKE 3 TABLETS BY MOUTH ONCE DAILY FOR 5 DAYS active Not Available Not Available No t Available clonazepam 0.5 mg tablet TAKE 1 TABLET BY MOUTH TWICE DAILY NEEDED FOR TINNITIS. 03/06 completed Not Available Not Available Not Available dexamethaso ne 6 mg tablet TAKE 1 TABLET BY MOUTH ONCE DAILY active Not Available Not Available No t Available clonazepam 1 mg tablet TAKE 1 TABLET BY MOUTH TWICE DAILY TAKE 30 MINUTES BEFORE BEDTIME active Not Available Not Available No t Available clobetasol 0.05 % topical cream APPLY TOPICALLY TO AFFECTED AREA EVERY DAY AT BEDTIME active Not Available Not Available No t Available ciprofloxac in 250 mg tablet TAKE 1 TABLET BY MOUTH TWICE DAILY active Not Available Not Available No t Available ciprofloxac in 500 mg tablet TAKE 1 TABLET BY MOUTH EVERY 12 HOURS FOR 7 DAYS active Not Available Not Available No t Available sulfamethox azole 800 mg-trimetho prim 160 mg tablet TAKE 1 TABLET BY MOUTH EVERY 12 HOURS FOR 7 DAYS active Not Available Not Available No t Available tramadol 50 mg tablet TAKE 1 TABLET BY MOUTH THREE TIMES DAILY NEEDED FOR PAIN active Not Available Not Available No t Available triamcinolo ne acetonide 0.1 % topical cream active Not Available Not Available Not Available potassium chloride ER 20 mEq tablet,exte nded release(par t/cryst) TAKE 1 TABLET BY MOUTH ONCE DAILY active Not Available Not Available No t Available amitriptyli ne 10 mg tablet TAKE 1 TABLET BY MOUTH ONCE DAILY AT BEDTIME active Not Available Not Available No t Available diazepam 2 mg tablet TAKE 1 TABLET BY MOUTH TWICE DAILY 03/06 completed Not Available Not Available Not Available phenazopyri dine 100 mg tablet TAKE 1 TABLET BY MOUTH THREE TIMES DAILY AFTER A MEAL 03/06 completed Not Available Not Available Not Available benzonatate 100 mg capsule active Not Available Not Available Not Available pantoprazol e 40 mg tablet,mason yed release active Not Available Not Available Not Available triamcinolo ne acetonide 0.1 % topical ointment APPLY OINTMENT TOPICALLY TO AFFECTED AREA THREE TIMES DAILY FOR 14 DAYS active Not Available Not Available No t Available nystatin 100,000 unit/gram topical cream APPLY CREAM TOPICALLY TO AFFECTED AREA TWICE DAILY FOR 10 DAYS 03/06 completed Not Available Not Available Not Available lisinopril 10 mg tablet TAKE 1 TABLET BY MOUTH TWICE DAILY active Not Available Not Available No t Available prednisone 50 mg tablet TAKE 1 TABLET BY MOUTH ONCE DAILY FOR 3 DAYS active Not Available Not Available No t Available buspirone 7.5 mg tablet TAKE 1 TABLET BY MOUTH TWICE DAILY active Not Available Not Available No t Available hydroxyzine HCl 25 mg tablet TAKE 1 TABLET BY MOUTH EVERY 6 HOURS NEEDED active Not Available Not Available No t Available mupirocin 2 % topical ointment APPLY OINTMENT TOPICALLY THREE TIMES DAILY FOR 5 DAYS active Not Available Not Available No t Available furosemide 20 mg tablet TAKE 1 TABLET BY MOUTH ONCE DAILY FOR SWELLING active Not Available Not Available No t Available mirtazapine 15 mg tablet TAKE 1 TABLET BY MOUTH ONCE DAILY AT BEDTIME active Not Available Not Available No t Available gabapentin 100 mg capsule TAKE 1 CAPSULE BY MOUTH ONCE DAILY FOR PAIN FOR 30 DAYS active Not Available Not Available No t Available azelastine 137 mcg (0.1 %) nasal spray USE 2 SPRAY(S) IN EACH NOSTRIL AT BEDTIME NIGHTLY active Not Available Not Available No t Available levofloxaci n 500 mg tablet TAKE 1 TABLET BY MOUTH EVERY 24 HOURS FOR 7 DAYS 03/06 completed Not Available Not Available Not Available methylpredn isolone 4 mg tablets in a dose pack TAKE DIRECTED 03/06 completed Not Available Not Available Not Available albuterol sulfate HFA 90 mcg/actuati on aerosol inhaler INHALE 2 PUFFS BY MOUTH EVERY 6 HOURS NEEDED FOR SHORTNESS OF BREATH OR WHEEZING active Not Available Not Available No t Available ondansetron 4 mg disintegrat ing tablet DISSOLVE 1 TABLET IN MOUTH EVERY 8 HOURS NEEDED FOR NAUSEA active Not Available Not Available No t Available fluticasone propionate 50 mcg/actuati on nasal spray,suspe nsion USE 2 SPRAY(S) IN EACH NOSTRIL ONCE DAILY active Not Available Not Available No t Available doxycycline hyclate 100 mg tablet TAKE 1 TABLET BY MOUTH EVERY 12 HOURS active Not Available Not Available No t Available diazepam 5 mg tablet active Not Available Not Available No t Available hydroxyzine pamoate 25 mg capsule active Not Available Not Available N ot Available Premarin 0.625 mg/gram vaginal cream INSERT 1 GRAM VAGINALLY EVERY MORNING active Not Available Not Available No t Available escitalopra m 5 mg tablet TAKE 1 TABLET BY MOUTH ONCE DAILY active Not Available Not Available No t Available nitrofurant oin monohydrate /macrocryst als 100 mg capsule TAKE 1 CAPSULE BY MOUTH TWICE DAILY FOR 7 DAYS WITH FOOD active Not Available Not Available No t Available duloxetine 20 mg capsule,del ayed release 03/06 completed Not Available Not Available Not Available quetiapine 50 mg tablet TAKE 1 TABLET BY MOUTH AT BEDTIME NIGHTLY active Not Available Not Available No t Available BinaxNOW COVID-19 Ag Self Test kit Use as Directed on the Package 03/06 completed Not Available Not Available Not Available Breyna 160 mcg-4.5 mcg/actuati on HFA aerosol inhaler INHALE 2 PUFFS BY MOUTH TWICE DAILY active Not Available Not Available No t Available Vitals Date Recorded Body height Body mass index (BMI) Body weight Body temperature Heart rate Systolic blood pressure Diastolic blood pressure Provider Name and Address Organization Details Last Updated DateTime 3 154.94 cm 34.4 kg/m2 93750.8 1 g 97.1 [degF] 70 /min 177 mm[Hg] 80 mm[Hg] Jo-Ann Sanderson ELSIE Blackwell LPNT [facility] & [place] 3 14:51:11 Social History None recorded. Functional Status None recorded. Mental Status None recorded. Family History Relationship Description Onset Age of this Age Resolved Age Notes LastModified by Organization Details LastModified Time Mother Mother CHART_MERGE Not available 08/06 12:30:23 Mother Rheumatoid arthritis CHART_MERGE Not available 08/06 12:30:23 Father Father CHART_MERGE Not available 08/06 12:30:23 Medical History Condition Response Allergies/Hayfever Y Heart Problems Y Other Y None Y Heart Conditions N Emphysema N Migraines N Thyroid Problems N Glaucoma N Depression N Developmental Delay N Anemia N Immune System Disorder N Constipation Y Anesthesia Complications N Heart Attack (OK) N Anxiety Disorder Y Diabetes N Bleeding Disorder N Arthritis Y Hearing Loss N Tuberculosis N Acid Reflux (GERD) N Hyperlipidemia N Cancer N Stroke N Asthma N Sleep Disorder N GERD/Reflux N Heart Disease N Headaches N Fibromyalgia N Hypertension Y Speech Delay N Kidney Disease N Gynecological HistoryNo gynecological history recorded. Obstetrics History GPAL:G 0 P 0 0 0 0 Immunizations Vaccine Type Date Status Note Provider Nam e and Address Organization Details Recorded Time Pneumococcal conjugate PCV 13 7 completed ELSIE Sheppard LPNT [facility] [place] 06/19/2023 11:40:00 Influenza, MDCK, trivalent, PF 7 completed ELSIE Sheppard LPNT [facility] [place] 06/19/2023 11:40:18 Past Encounters Encounter ID Performer Location Encounter Start Date Encounter Closed Date Diagnosis/Indication Diagnosis SNOMED-CT Code Diagnosis ICD10 Code Diagnosis Note [id number] Shahrzad Becerra MD [facility] G -[id number] [address] [facility] [address] [phone] 03/06/2023 13:55:55 03/06/2023 15:38:30 Bilateral tinnitus 6052966837 102 H93.13 patient has very bothersome tinnitus that is affecting her quality of life. She has tried benzodiaze pines without significan t improvemen t. She has also seen multiple audiologis t, otolaryngo logists and otologists . unfortunat mik options for treating tinnitis are rather limited in scope and effectiven ess. I did discuss with her that there is some evidence and research regarding deep brain stimulatio n for improvemen t of tinnitus however this is still in the explorator y phase and is certainly not a mainstream option in our area. I would like for her to at least do a hearing aid trial with masking as this would be standard of care prior to being eligible for any more invasive treatments . Anxiety ab out body function or health [id number] F41.8 Health Concerns Section Related Observation LastModified by Organization Detai ls LastModified Time None Recorded Concern Status LastModified by Organization Details LastModified Time None Recorded Advance Directives Directive None Recorded Payers Encounter Date Sequence Insurance Name Policy Number Policy Alexander Covered Member ID Alexander Member ID Guarantor Name 03/06/2023 1 [employer] (MEDICARE REPLACEMENT/ ADVANTAGE - PPO) Samara Hayward [id number] Notes Date Note Type Note Provider Name and Address Organization Details Recorded Time 03/06/2023 text/html 77yo female returns to the office today to discuss bilateral ringing in her ears. States there is a hissing sound in her ears have become much worse since seeing us last in 2016. She has been prescribed valium, that made her symptoms worse. She has been given diazepam and clonazepam. Neither have worked for her. She saw an research and development tester in [place] (Nehal Caicedo) who wanted her to get hearing aids and do cognitive behavioral therapy to help alleviate her symptoms. She did not pursue this option as it was too expensive. She is currently taking the clonazepam and two OTC sleeping aids to help her sleep at night. This helps her fall asleep but she will wake up many times during the night due to the sound. Denies any imaging. Recently had an audiogram within the last couple of years. Patient is distraught and anxious. She has seem multiple audiologists and Otolaryngologists. She reports seeing an paid search marketing strategist in [place] and one at as well (prehrosalba Pena). She does report trying to wear a hearing aid however, she reports it made Sounds too loud and she immediately pulled them out of her ears and did not leave the office with the hearing aids. Shahrzad Becerra MD [address] [facility], [place], [address], [facility] - [place] & [place] 03/09/2023 11:00:13 OBGyn Episode No OBEpisode recorded.
--- OUTSIDE RECORDS SUMMARY | 2024-11-13 19:46 | XMS_ITS | Clinical Summary ---
Author Organization [facility] Address [address] [place] [address] Phone Care Team Providers Care Skin Lifter Bacon Name Role Phone IVANNAJOHNSON BECKMAN DO Primary Care Provider [phone] Adrián Swenson MD Unavailable [phone] Rafi Roberts MD Unavailable [phone] Reason for Visit and Chief Complaint The Chief Complaint is: Left hip pain Problems Includes: Problems addressed during this encounter and other active Problems Current Visit Onset Date Resolved Date Provider Conditio n Status Lower Back Pain 01/07/2024 Constantine Garcia PA-C A ctive Last Documented On 4 1:00PM ; [facility] Past Visits Onset Date Resolved Date Provider Condition Status Joint Pain in the Left Hip 07/19/2016 Catracho Rubio MD Active Last Documented On 6 2:14PM ; [facility] Joint Pain, Localized in the Knee 10/14/2013 Rebecca Rubio MD Active Last Documented On 4 2:09PM ; [facility] Plan of Treatment She was provided a referral to our orthospine team and Dr. Roberts for further evaluation of the lumbar spine. She will follow up with our office on an as- needed basis and will contact us if she has any questions or concerns in the meantime. - Last Documented On 05/05/2021 1:38PM ; [facility] Assessments Includes: Assessments from this encounter Findings 75-year-old female presents with ongoing symptoms of left hip pain. The symptoms correlate with an etiology from the lumbar spine. X-ray findings demonstrate left total hip arthroplasty implants in good position without any signs of loosening. Leg length discrepancy appears symmetric. It is likely the etiology of her symptoms are coming from the level above or below her posterior lumbar interbody fusion. - Last Documented On 05/05/2021 1:38PM ; [facility], [facility] Medical Equipment - Implanted Devices Includes: Current Devices No Medical Equipment Recorded Medications Includes: Medications discussed during this encounter and other current Medications Discontinued / Stopped on this date Catracho Rubio MD on 09/26/2019 Valium 5 MG Oral Tablet Provider: Catracho Rubio MD Diagnosis: Last Documented On 1 1:43PM By Janelle Pendleton ; [facility] Phoenix 5-325MG Oral Tablet Provider: Hugh Quiroga MD Diagnosis: Last Documented On 1 1:43PM By Janelle Pendleton ; [facility], [facility] Xarelto 10MG Oral Tablet Provider: Norris Rubio MD Diagnosis: Last Documented On 1 1:43PM By Janelle Pendleton ; [facility] Aspirin 325MG Oral Tablet Provider: Rebecca Rubio MD Diagnosis: Last Documented On 1 1:43PM By Janelle Pendleton ; [facility] Percocet 7.5-325MG Oral Tablet Provider: Catracho Rubio MD Diagnosis: Last Documented On 1 1:43PM By Janelle Pendleton ; [facility] Zofran 4MG Oral Tablet Provider: Catracho Rubio MD Diagnosis: Last Documented On 1 1:43PM By Janelle Pendleton ; [facility] Mupirocin 2% External Ointment Provider: Catracho Rubio MD Diagnosis: Last Documented On 1 1:43PM By Janelle Pendleton ; [facility] Percocet 7.5-325 MG OR TABS Provider: Catracho Rubio MD Diagnosis: Last Documented On 1 1:43PM By Janelle Pendleton ; [facility] Lortab 7.5-500 MG OR TABS Provider: Rebecca Rubio MD Diagnosis: Last Documented On 1 1:42PM By Janelle Pendleton ; [facility] Percocet 5-325 MG OR TABS Provider: Rebecca Rubio MD Diagnosis: Last Documented On 1 1:42PM By Janelle Pendleton ; [facility] traMADol HCl 50 MG OR TABS Provider: Macho Rubio MD Diagnosis: Last Documented On 1 1:43PM By Janelle Pendleton ; [facility] traMADol HCl 50 MG OR TABS Provider: Macho Rubio MD Diagnosis: Last Documented On 1 1:42PM By Janelle Pendleton ; [facility] traMADol HCl 50 MG OR TABS Provider: Macho Rubio MD Diagnosis: Last Documented On 1 1:42PM By Janelle Pendleton ; [facility] Relafen 500 MG OR TABS Provider: Catracho Rubio MD Diagnosis: Last Documented On 1 1:42PM By Janelle Pendleton ; [facility] Lortab 5-500 MG OR TABS Provider: Catracho Rubio MD Diagnosis: Last Documented On 1 1:42PM By Janelle Pendleton ; [facility] Lortab 5-500 MG OR TABS Provider: Catracho Rubio MD Diagnosis: Last Documented On 1 1:42PM By Janelle Pendleton ; [facility] Percocet 5-325 MG OR TABS Provider: Rebecca Rubio MD Diagnosis: Last Documented On 1 1:42PM By Janelle Pendleton ; [facility] Current Medications (continue as prescribed) diphenhydrAMINE HCl 5 MG/ML Oral Suspension Reconstitu paras 01/07/2024 Provider: Diagnosis: Last Documented On 4 1:30PM By Radha Stafford ; [facility] Klor-Con M20 20 MEQ Oral Tablet Extended Release 01/06 Provider: Diagnosis: Last Documented On 4 1:31PM By Radha Stafford ; [facility] Phenazopyridine HCl 200 MG Oral Tablet 01/04/2024 Pr ovider: Diagnosis: Last Documented On 4 1:02PM By Radha Stafford ; [facility] Symbicort 160-4.5 MCG/ACT Inhalation Aerosol Provider: Diagnosis: Last Documented On 4 1:02PM By Radha Stafford ; [facility] Nitrofurantoin Monohyd Macro 100 MG Oral Capsule 12/18 Provider: Diagnosis: Last Documented On 4 1:02PM By Radha Stafford ; [facility] Premarin 0.625 MG/GM Vaginal Cream 12/14/2023 Provid er: Diagnosis: Last Documented On 4 1:02PM By Radha Stafford ; [facility] traMADol HCl 50 MG Oral Tablet 12/14/2023 Provider: KHADAR OLIVAS MD Diagnosis: Last Documented On 4 1:02PM By Radha Stafford ; [facility] Nystatin [id number] UNIT/GM External Ointment 12/03/2023 Provider: Diagnosis: Last Documented On 4 1:02PM By Radha Stafford ; [facility] Atorvastatin Calcium 20 MG Oral Tablet 11/21/2023 Pr ovider: KHADAR OLIVAS MD Diagnosis: Last Documented On 4 1:30PM By Radha Stafford ; [facility] Potassium Chloride Zaina ER 2 0 MEQ Oral Tablet Extended Release 09/08/2023 Provider: Kathleen Sanderson APRN Diagnosis: Last Documented On 4 1:02PM By Radha Stafford ; [facility] Furosemide 20 MG Oral Tablet 08/16/2023 Provider: Kathleen Sanderson APRN Diagnosis: Last Documented On 4 1:02PM By Radha Stafford ; [facility] Ipratropium-Albuterol 0.5-2.5 (3) MG/3ML Inhalat ion Solution 08/01/2023 Provider: Diagnosis: Last Documented On 4 1:31PM By Radha Stafford ; [facility] Medications Administered Includes: Administered Medications from this encounter No Administered Medications Recorded Vital Signs Includes: Vital Signs from this encounter Vital Name 02/22/2021 01:43P Blood Pressure Sitting (mmHg) 120/63 Pulse Rate-Sitting (bpm) 72 Height (in) 61 Weight (lb) 196 Body Mass Index (kg/m2) 37.0 Body Surface Area (m2) 1.9 Note: ss Last Documented: On 02/22/2021 1:52PM ; [facility] Results Includes: Results discussed during this encounter No Results Recorded For Specified Dates History of Present Illness Includes: History of Present Illness from this encounter RAFAELA Hayward is a 75 year old female. - Allergy list reviewed - Problem list reviewed - Medication reconciliation performed - Medication list reviewed with patient A 75-year-old female presents with left hip pain. She has been under the orthopedic care of Dr. Rubio and Abner Mcwilliams PA-C, and was referred to Dr. Cheung and vt for the continuance of care. She is status post left total hip arthroplasty that took place on 03/31/[address] Rubio. She has had ongoing left hip pain that radiates down the left lower extremity as well as into the left groin. She has associated numbness with these symptoms. She states that it is a constant dull ache and she has sharp pain to the left groin with walking for extended periods of time. She also gets left quad muscle cramps intermittently from a standing to seated position. 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 Vigil. She is not followed up with Dr. Vigil since the immediate postoperative period of time. she was last evaluated by Abner Mcwilliams PA-C on 09/24/19, at which time her symptoms were determined to be arising from the lumbar spine and not the left hip. She was provided a referral to Dr. Khadar Diallo, she states that she did not follow up with the appointment because they required a [place] MRI and she is unable to have an MRI that is not in the open format. She denies medical history of DVT/PE, myocardial infarction, diabetes mellitus, stroke, coronary artery disease, renal disease, atrial fibrillation and blood disorder. Estebanies past and current tobacco use. She is retired and lives at home with her . Social History Description Last Updated Non-smoker 02/22/2021 Last Documented On 1 1:38PM ; [facility] Smoking Status Unknown Procedures and Surgical History Includes: Procedures from this encounter Procedures Code Diagnosis Performing Provider Service L ocation Service Date use of tobacco assessment performed 1000F Last Documented On 1 1:44PM ; [facility] Pt received screening for fall risk [id number] Last Documented On 1 1:44PM ; [facility] Medical History Includes: Medical History addressed during this encounter No Medical History Recorded Family History Includes: Family History addressed during this encounter No Family History Recorded Review of Systems Includes: Review of Systems from this encounter Systemic: Not feeling tired, no recent weight loss, and no recent weight gain. Head: No headache and no sinus pain. Eyes: No vision problems, no Cataracts, no Glasses/Contacts, and no Glaucoma. Otolaryngeal: No hearing loss and no tinnitus. Cardiovascular: No chest pain or discomfort, no palpitations, no Hypertension, and no High Cholesterol. Pulmonary: No daytime asthma symptoms and no chronic cough. No wheezing. Gastrointestinal: No heartburn and no abdominal pain. No Indigestion, no Acid Reflux, no Peptic Ulcer, no GI Stomach Bleed, and no Ulcers. Endocrine: No hot flashes, no muscle weakness, no Diabetes, no Hypothyroid, and no Hyperthyroid. Hematologic: No easy bleeding, no tendency for easy bruising, and no Anemia. Musculoskeletal: No Arthritis and no lower back pain. No soft tissue swelling and no localized joint pain. Neurological: No dizziness, no convulsions, and no numbness. Psychological: No anxiety, no emotional lability, no depression, and no insomnia. Not crying for no reason. Skin: No dry skin. No Ulcers, no Scars, and no rash. Allergic and Immunologic: No complaint of seasonal allergic reaction. reviewed with patient 02/22/21 Mental Status Includes: Mental Status from this encounter Description No anxiety Functional Status Includes: Functional Status from this encounter No Functional Status Recorded Physical Exam Includes: Physical Exam from this encounter Allergies Includes: Active Allergies Substance Type Reaction Onset Date Resolved Date Statu s nickel allergy Allergy 12/04/2018 Acti ve Last Documented On 4 9:47AM ; [facility] Keflex Allergy 10/14/2013 Active Last Documented On 4 9:47AM ; [facility] Betadine Allergy 10/14/2013 Active Last Documented On 4 9:47AM ; [facility] Bactroban Allergy 03/28/2019 Active Last Documented On 4 9:47AM ; [facility] Encounters Encounter Provider Location Date Check-In Time Check-Out Time Diagnosis Physician Specified Maldonado Cheung MD [facility] 02/23/20 21 1:26PM 2:32PM Insurance Includes: Active Insurance Policies Plan Name Member ID Group # Subscriber Relationship Effect etelvina Dates 1 - [employer] [id number] Samara Mainor Self 07/16/2019 - Unknown Clinical Notes Includes: Clinical Notes from this encounter No Clinical Notes Recorded
--- OUTSIDE RECORDS SUMMARY | 2024-11-13 19:46 | XMS_ITS | Clinical Summary ---
Author Organization [facility] , [facility] Address [address] [place] [address] Phone Care Team Providers Care Top Lift Trimmer Name Role Phone JOHNSON GONCALVES DO Primary Care Provider [phone] Adrián Swenson MD Unavailable [phone] Rafi Roberts MD Unavailable [phone] Reason for Visit and Chief Complaint The Chief Complaint is: Left hip pain Problems Includes: Problems addressed during this encounter and other active Problems Current Visit Onset Date Resolved Date Provider Conditio n Status Lower Back Pain 01/07/2024 Constantine Garcia PA-C A ctive Last Documented On 4 1:00PM ; [facility], [facility] Past Visits Onset Date Resolved Date Provider Condition Status Joint Pain in the Left Hip 07/19/2016 Catracho Rubio MD Active Last Documented On 6 2:14PM ; [facility], [facility] Joint Pain, Localized in the Knee 10/14/2013 Rebecca Rubio MD Active Last Documented On 4 2:09PM ; [facility], [facility] Plan of Treatment Instructions to patient Instructions for patient see pcp for elevated bp Last Documented On 0 2:24PM ; [facility], [facility] Assessments Includes: Assessments from this encounter Findings Samara complaining of chronic low back pain and occasional groin pain on the left side. When pressed to isolate the area of most concern she repeatedly stated it would be her back. She had a back fusion in [address] Arellano. He does not feel she ever got complete relief from this surgery. Her most recent surgery of left direct total hip arthroplasty was done in March 2019. Initially she did very well however over the past 2-1/2 months he has complained of groin left lateral hip and low back pain. She feels the origin of all this pain is her low back. She is here today requesting evaluation and recommendations. - Last Documented On 10/03/2019 3:04PM ; [facility], [facility] After long discussion with Dr Rubio the patient is in agreement in regards to the source of her pain potentially being her low back. Further discussion isolated her source of pain from her back more so than her hip. At this time it was decided we would proceed with a referral to Dr. Payam Hall for further evaluation of her lumbar spine and the left lower extremity radiculopathy.. We will obtain a [place] MRI of the lumbar spine and refer her to Dr. Fernández. She understands and is agreeable and would like to proceed as possible. We therefore make the appropriate arrangements and see her back 6 months. - Last Documented On 10/03/2019 3:04PM ; [facility], [facility] X-rays: AP pelvic and lateral x-rays of the left hip demonstratewell-positioned femoral and acetabular component. The prostheses are in good position. There is no evidence of loosening or fracture noted. The head is well reduced into the acetabular component. Otherwise unremarkable x-ray of the left total hip arthroplasty. - Last Documented On 10/03/2019 3:04PM ; [facility], [facility] Electronically signed by Abner Mcwilliams PA-C - Last Documented On 10/03/2019 3:04PM ; [facility], [facility] Instructions Includes: Instructions from this encounter Instructions to patient Instructions for patient see pcp for elevated bp Last Documented On 0 2:24PM ; [facility], [facility] Medical Equipment - Implanted Devices Includes: Current Devices No Medical Equipment Recorded Medications Includes: Medications discussed during this encounter and other current Medications Current Medications (continue as prescribed) diphenhydrAMINE HCl 5 MG/ML Oral Suspension Reconstitu paras 01/07/2024 Provider: Diagnosis: Last Documented On 4 1:30PM By Radha Stafford ; [facility], [facility] Klor-Con M20 20 MEQ Oral Tablet Extended Release 01/06 Provider: Diagnosis: Last Documented On 4 1:31PM By Radha Stafford ; [facility] Phenazopyridine HCl 200 MG Oral Tablet 01/04/2024 Pr ovider: Diagnosis: Last Documented On 4 1:02PM By Radha Stafford ; [facility] Symbicort 160-4.5 MCG/ACT Inhalation Aerosol Provider: Diagnosis: Last Documented On 4 1:02PM By Radha Stafford ; [facility] Nitrofurantoin Monohyd Macro 100 MG Oral Capsule 12/18 Provider: Diagnosis: Last Documented On 4 1:02PM By Radha Stafford ; [facility] Premarin 0.625 MG/GM Vaginal Cream 12/14/2023 Provid er: Diagnosis: Last Documented On 4 1:02PM By Radha Stafford ; [facility] traMADol HCl 50 MG Oral Tablet 12/14/2023 Provider: MARIIA OLIVAS MD Diagnosis: Last Documented On 4 1:02PM By Radha Stafford ; [facility] Nystatin 084057 UNIT/GM External Ointment 12/03/2023 Provider: Diagnosis: Last Documented On 4 1:02PM By Radha Stafford ; [facility] Atorvastatin Calcium 20 MG Oral Tablet 11/21/2023 Pr ovider: MARIIA OLIVAS MD Diagnosis: Last Documented On 4 1:30PM By Radha Stafford ; [facility] Potassium Chloride Zaina ER 2 0 MEQ Oral Tablet Extended Release 09/08/2023 Provider: Kathleen Sanderson APRN Diagnosis: Last Documented On 4 1:02PM By Radha Stafford ; [facility] Furosemide 20 MG Oral Tablet 08/16/2023 Provider: Kathleen Sanderson APRN Diagnosis: Last Documented On 4 1:02PM By Radha Stafford ; [facility] Ipratropium-Albuterol 0.5-2.5 (3) MG/3ML Inhalat ion Solution 08/01/2023 Provider: Diagnosis: Last Documented On 4 1:31PM By Radha Stafford ; [facility] Medications Administered Includes: Administered Medications from this encounter No Administered Medications Recorded Vital Signs Includes: Vital Signs from this encounter Vital Name 09/24/2019 02:24P Blood Pressure Sitting (mmHg) 106/56 Pulse Rate-Sitting (bpm) 67 Height (in) 62 Weight (lb) 194 Body Mass Index (kg/m2) 35.5 Body Surface Area (m2) 1.9 Note: tmg Last Documented: On 09/24/2019 2:39PM ; [facility] Results Includes: Results discussed during this encounter No Results Recorded For Specified Dates History of Present Illness Includes: History of Present Illness from this encounter HPI Samara Hayward is a 74 year old female. - Allergy list reviewed - Problem list reviewed - Medication list reviewed with patient - Medication reconciliation performed Social History Description Last Updated No caffeine use 06/11/2019 Last Documented On 0 2:24PM ; [facility] No recent change in diet 07/19/2016 Last Documented On 0 2:24PM ; [facility] Not a current smoker 07/19/2016 Last Documented On 0 2:24PM ; [facility], [facility] Not exercising regularly 07/19/2016 Last Documented On 0 2:24PM ; [facility], [facility] Not using alcohol 07/19/2016 Last Documented On 0 2:24PM ; [facility], [facility] Not using drugs 07/19/2016 Last Documented On 0 2:24PM ; [facility], [facility] No tobacco use 10/14/2013 Last Documented On 0 2:24PM ; [facility], [facility] Smoking status : Never smoked/ Recode: 4 10/14/2013 Last Documented On 0 2:24PM ; [facility], [facility] Procedures and Surgical History Includes: Procedures from this encounter Procedures Code Diagnosis Performing Provider Service L ocation Service Date Clinical summary provided to patient Last Documented On 0 2:38PM ; [facility] Surgical History Last Updated History of appendectomy 09/24/2019 Last Documented On 0 3:04PM ; [facility], [facility] History of back surgery 09/24/2019 Last Documented On 0 3:04PM ; [facility], [facility] History of hysterectomy 09/24/2019 Last Documented On 0 3:04PM ; [facility] Medical History Includes: Medical History addressed during this encounter Description Last Updated left carpal tunnel ~right and left arm r otator cuff ~blood transfusion 09/24/2019 Last Documented On 0 3:04PM ; [facility], [facility] A recent immunization for pneumococcal p neumonia 06/201609/24/2019 Last Documented On 0 3:04PM ; [facility], [facility] Arthritic joint problems 09/24/2019 Last Documented On 0 3:04PM ; [facility], [facility] Gallbladder disease 09/24/2019 Last Documented On 0 3:04PM ; [facility], [facility] History of diverticulitis of colon 09/24 Last Documented On 0 3:04PM ; [facility], [facility] History of hepatitis 09/24/2019 Last Documented On 0 3:04PM ; [facility], [facility] Intermittent hypertension 09/24/2019 Last Documented On 0 3:04PM ; [facility], [facility] Family History Includes: Family History addressed during this encounter Description Last Updated Family history of cancer 09/24/2019 Last Documented On 0 3:04PM ; [facility], [facility] Family history of heart disease 09/24/19 20 Last Documented On 0 3:04PM ; [facility], [facility] Family history of hypertension 0 Last Documented On 0 3:04PM ; [facility], [facility] Family history of rheumatoid arthritis m other 09/24/2019 Last Documented On 0 3:04PM ; [facility], [facility] Review of Systems Includes: Review of Systems from this encounter Systemic: Feeling tired (fatigue), recent weight loss, and recent weight gain. No edema. Head: No headache and no sinus pain. Eyes: No vision problems and no glaucomatous visual field defect. Otolaryngeal: No hearing loss and no tinnitus. No nasal symptoms. Cardiovascular: No chest pain or discomfort and no palpitations. Pulmonary: No daytime asthma symptoms, no cough, and no chronic cough. No wheezing. Gastrointestinal: No heartburn and no abdominal pain. Endocrine: No hot flashes. Muscle weakness. Hematologic: No easy bleeding and no tendency for easy bruising. Musculoskeletal: Lower back pain. No soft tissue swelling. Pain localized to one or more joints. Neurological: No dizziness, no convulsions, and no numbness. Psychological: No anxiety, no emotional lability, no depression, and no insomnia. Not crying for no reason. Skin: No dry skin, no rash, and no ulcers. Allergic and Immunologic: No complaint of seasonal allergic reaction. NO CHANGE 09/24/2019 NO FLU/PNEU VACCINE REPORTED Mental Status Includes: Mental Status from this encounter Description No anxiety Functional Status Includes: Functional Status from this encounter No Functional Status Recorded Physical Exam Includes: Physical Exam from this encounter Allergies Includes: Active Allergies Substance Type Reaction Onset Date Resolved Date Statu s nickel allergy Allergy 12/04/2018 Acti ve Last Documented On 4 9:47AM ; [facility], [facility] Keflex Allergy 10/14/2013 Active Last Documented On 4 9:47AM ; [facility], [facility] Betadine Allergy 10/14/2013 Active Last Documented On 4 9:47AM ; [facility] Bactroban Allergy 03/28/2019 Active Last Documented On 4 9:47AM ; [facility], [facility] Encounters Encounter Provider Location Date Check-In Time Check- Out Time Diagnosis Follow Up Catracho Rubio MD [facility] 0 2:25PM 3:59PM Insurance Includes: Active Insurance Policies Plan Name Member ID Group # Subscriber Relationship Effect etelvina Dates 1 - [employer] [id number] Samara Hayward Self 07/16/2019 - Unknown Clinical Notes Includes: Clinical Notes from this encounter No Clinical Notes Recorded
--- OUTSIDE RECORDS SUMMARY | 2024-11-13 19:46 | XMS_ITS ---
Care Plan - [facility], [facility] Created on: November 13, 2024 Samara Hayward : 1945 Sex: Female Author Organization [facility] , [facility] Address [address] [place] [address] Phone Care Team Providers Care Biophysics Teacher Name Role Phone JOHNSON GONCALVES DO Primary Care Provider [phone] Adrián Swenson MD Unavailable [phone] Rafi Roberts MD Unavailable [phone]
--- OUTSIDE RECORDS SUMMARY | 2024-11-13 19:46 | XMS_ITS ---
Author Organization [facility] , [facility] Address [address] [place] [place] [address] Phone Care Team Providers Care Lpn Instructor Name Role Phone JOHNSON GONCALVES DO Primary Care Provider [phone] Adrián Swenson MD Unavailable [phone] Rafi Roberts MD Unavailable [phone] Reason for Referral Date Encounter Description Provider Reason for Referral 01/24/24 Follow Up Edwardo English MD Referral To Physician Problems Includes: Active, inactive, and resolved Problems All Visits Onset Date Resolved Date Provider Condition S tatus Lower Back Pain 01/07/2024 Constantine Garcia PA-C A ctive Last Documented On 4 1:00PM ; [facility], [facility] Joint Pain in the Left Hip 07/19/2016 Catracho lewis MD Active Last Documented On 6 2:14PM ; [facility] Joint Pain, Localized in the Knee 10/14/2013 Rebecca Rubio MD Active Last Documented On 4 2:09PM ; [facility] SPRAIN ROTATOR CUFF 05/08/2012 Catracho Rubio MD Inactive Last Documented On 4 2:11PM ; [facility], [facility] Plan of Treatment Findings Encounter Date Clinical consultation report Follow Up with Gaurav English MD 01/24/2024 Last Documented On 4 11:36AM ; [facility], [facility] Patient screened for future fall risk: documentation of any fall with injury in past year Follow Up with Edwardo English MD 01/24/2024 Last Documented On 4 11:36AM ; [facility], [facility] Referral to physician Follow Up with Edwardo carvajal MD 01/24/2024 Last Documented On 4 11:36AM ; [facility], [facility] Patient screened for future fall risk: documentation of any fall with injury in past year Physician Specified with Constantine Garcia PA-C 01/07/2024 Last Documented On 4 11:55AM ; [facility], [facility] Ordered weight loss diet NEW PROBLEM/EST PT with Catracho Rubio MD 10/14/2013 Last Documented On 4 9:11AM ; [facility], [facility] Pending Tests Order Diagnosis Results Due Ordering P rovider Radiology - MRI MRI Lumbar Spine Low back pain, unspecified 01/21/24 Constantine Garcia PA-C Last Documented On 4 11:55AM ; [facility], [facility] Referrals To Diagnosis Consult for Pain Management Over weight Note: Dr Stone SCS // cc Last Documented On 4 8:31AM ; [facility], [facility] Consult with Vascular Overweight Note: Dr Leiva for Vascular Consult /// cc Last Documented On 4 11:36AM ; [facility], [facility] Instructions to patient Lose weight Last Documented On 4 9:47AM ; [facility], [facility] Lose weight Last Documented On 4 2:08PM ; [facility] Instructions for patient see pcp for elevated bp Last Documented On 0 2:24PM ; [facility], [facility] Instructions for patient see pcp for elevated bp Last Documented On 9 1:23PM ; [facility] Instructions for patient see pcp for elevated bp Last Documented On 9 1:05PM ; [facility], [facility] Instructions for patient see pcp for elevated bp Last Documented On 9 4:05PM ; [facility], [facility] Instructions for patient see pcp for elevated bp and weight management Last Documented On 8 2:03PM ; [facility], [facility] Instructions for patient see pcp for elevated bp and weight management Last Documented On 7 1:33PM ; [facility], [facility] Instructions for patient see pcp for elevated bp Last Documented On 6 2:13PM ; [facility] No intervention and counseli ng on cessation of tobacco use Last Documented On 6 2:13PM ; [facility] Instructions for patient Pat ient will follow up with PCP for weight loss plan Last Documented On 4 2:21PM ; [facility] Lose weight Last Documented On 4 2:21PM ; [facility] Education and Decision Aids were provided during visit for: No health seminar on smoking cessation Last Documented On 9 1:23PM ; [facility] No health seminar on smoking cessation Last Documented On 9 1:05PM ; [facility] No health seminar on smoking cessation Last Documented On 9 4:05PM ; [facility], [facility] No health seminar on smoking cessation Last Documented On 8 2:03PM ; [facility] No health seminar on smoking cessation Last Documented On 7 1:30PM ; [facility] No health seminar on smoking cessation Last Documented On 6 2:13PM ; [facility] Assessments Includes: Assessments for all patient encounters Findings Encounter Date Overweight Follow Up with Edwardo English MD 01/24/2024 Last Documented On 4 11:36AM ; [facility], [facility] Overweight Physician Specified with Constantine Garcia PA-C 01/07/2024 Last Documented On 4 11:55AM ; [facility], [facility] Instructions Includes: Instructions for all patient encounters Instructions to patient Lose weight Last Documented On 4 9:47AM ; [facility] Lose weight Last Documented On 4 2:08PM ; [facility] Instructions for patient see pcp for elevated bp Last Documented On 0 2:24PM ; [facility] Instructions for patient see pcp for elevated bp Last Documented On 9 1:23PM ; [facility] Instructions for patient see pcp for elevated bp Last Documented On 9 1:05PM ; [facility], [facility] Instructions for patient see pcp for elevated bp Last Documented On 9 4:05PM ; [facility], [facility] Instructions for patient see pcp for elevated bp and weight management Last Documented On 8 2:03PM ; [facility] Instructions for patient see pcp for elevated bp and weight management Last Documented On 7 1:33PM ; [facility], [facility] Instructions for patient see pcp for elevated bp Last Documented On 6 2:13PM ; [facility], [facility] No intervention and counseli ng on cessation of tobacco use Last Documented On 6 2:13PM ; [facility], [facility] Instructions for patient Pat ient will follow up with PCP for weight loss plan Last Documented On 4 2:21PM ; [facility], [facility] Lose weight Last Documented On 4 2:21PM ; [facility], [facility] Education and Decision Aids were provided during visit for: No health seminar on smoking cessation Last Documented On 9 1:23PM ; [facility], [facility] No health seminar on smoking cessation Last Documented On 9 1:05PM ; [facility], [facility] No health seminar on smoking cessation Last Documented On 9 4:05PM ; [facility], [facility] No health seminar on smoking cessation Last Documented On 8 2:03PM ; [facility], [facility] No health seminar on smoking cessation Last Documented On 7 1:30PM ; [facility], [facility] No health seminar on smoking cessation Last Documented On 6 2:13PM ; [facility], [facility] Medical Equipment - Implanted Devices Includes: Current and historical Devices No Medical Equipment Recorded Medications Includes: Current and historical Medications Current Medications (continue as prescribed) diphenhydrAMINE HCl 5 MG/ML Oral Suspension Reconstitu paras 01/07/2024 Provider: Diagnosis: Last Documented On 4 1:30PM By Radha Stafford ; [facility], [facility] Klor-Con M20 20 MEQ Oral Tablet Extended Release 01/06 Provider: Diagnosis: Last Documented On 4 1:31PM By Radha Stafford ; [facility] Phenazopyridine HCl 200 MG Oral Tablet 01/04/2024 Pr ovider: Diagnosis: Last Documented On 4 1:02PM By Radha Stafford ; [facility] Symbicort 160-4.5 MCG/ACT Inhalation Aerosol Provider: Diagnosis: Last Documented On 4 1:02PM By Radha Stafford ; [facility] Nitrofurantoin Monohyd Macro 100 MG Oral Capsule 12/18 Provider: Diagnosis: Last Documented On 4 1:02PM By Radha Stafford ; [facility] Premarin 0.625 MG/GM Vaginal Cream 12/14/2023 Provid er: Diagnosis: Last Documented On 4 1:02PM By Radha Stafford ; [facility] traMADol HCl 50 MG Oral Tablet 12/14/2023 Provider: MARIIA OLIVAS MD Diagnosis: Last Documented On 4 1:02PM By Radha Stafford ; [facility] Nystatin 442578 UNIT/GM External Ointment 12/03/2023 Provider: Diagnosis: Last Documented On 4 1:02PM By Radha Stafford ; [facility] Atorvastatin Calcium 20 MG Oral Tablet 11/21/2023 Pr ovider: MARIIA OLIVAS MD Diagnosis: Last Documented On 4 1:30PM By Radha Stafford ; [facility] Potassium Chloride Zaina ER 2 0 MEQ Oral Tablet Extended Release 09/08/2023 Provider: Kathleen Sanderson APRN Diagnosis: Last Documented On 4 1:02PM By Radha Stafford ; [facility] Furosemide 20 MG Oral Tablet 08/16/2023 Provider: Kathleen Sanderson APRN Diagnosis: Last Documented On 4 1:02PM By Radha Stafford ; [facility] Ipratropium-Albuterol 0.5-2.5 (3) MG/3ML Inhalat ion Solution 08/01/2023 Provider: Diagnosis: Last Documented On 4 1:31PM By Radha Stafford ; [facility] Past Medications on file Phenazopyridine HCl 200 MG Oral Tablet 12/27/2023 - 01/07/2024 Provider: Kathleen guillermo APRN Diagnosis: Last Documented On 4 1:02PM By Radha Stafford ; [facility] Phenazopyridine HCl 200 MG Oral Tablet 12/18/2023 - Provider: Diagnosis: Last Documented On 4 1:02PM By Radha Stafford ; [facility] traMADol HCl 50 MG Oral Tablet 12/14/2023 - 01/07/2024 Provider: MARIIA OLIVAS MD Diagnosis: Last Documented On 4 1:31PM By Radha Stafford ; [facility] traMADol HCl 50 MG Oral Tablet 10/28/2023 - 01/07/2024 Provider: MARIIA OLIVAS MD Diagnosis: Last Documented On 4 1:02PM By Radha Stafford ; [facility] Nitrofurantoin Monohyd Macro 100 MG Oral Capsule 09/20/2023 - 01/07/2024 Provider: Kathleen guillermo APRN Diagnosis: Last Documented On 4 1:02PM By Radha Stafford ; [facility] Valium 5 MG Oral Tablet 09/26/2019 - 02/22/2021 Provid er: Catracho Rubio MD Diagnosis: Take one pill 1 hour prior t o MRI and second pill right befor MRI. Last Documented On 1 1:43PM By Janelle Pendleton ; [facility] Riverview 5-325MG Oral Tablet 04/17/2019 - 02/22/2021 Prov ider: Antoni Quiroga MD Diagnosis: 1 every 4 - 6 hours as needed Last Documented On 1 1:43PM By Janelle Pendleton ; [facility] Xarelto 10MG Oral Tablet 03/28/2019 - 02/22/2021 Provi amado: Catracho Rubio MD Diagnosis: once a day for first seven d ays after joint replacement, then transiition to aspirin Last Documented On 1 1:43PM By Janelle Pendleton ; [facility], [facility] Aspirin 325MG Oral Tablet 03/28/2019 - 02/22/2021 Prov ider: Catracho Rubio MD Diagnosis: twice a day Last Documented On 1 1:43PM By Janelle Pendleton ; [facility], [facility] Percocet 7.5-325MG Oral Tablet 03/28/2019 - 02/22/2021 Provider: Catracho Rubio MD Diagnosis: [id number] prn post op pain Last Documented On 1 1:43PM By Janelle Pendleton ; [facility], [facility] Zofran 4MG Oral Tablet 03/28/2019 - 02/22/2021 Provide r: Catracho Rubio MD Diagnosis: 1 tab every 6 hrs prn pain Last Documented On 1 1:43PM By Janelle Pnedleton ; [facility], [facility] Mupirocin 2% External Ointment 12/04/2018 - 02/22/2021 Provider: Catracho Rubio MD Diagnosis: take as directed Apply cream twice a day to each nostril five days prior to surgery. Last Documented On 1 1:43PM By Janelle Pendleton ; [facility], [facility] Gabapentin 100MG Oral Capsule 12/02/2018 - 01/07/2024 Provider: Diagnosis: Last Documented On 4 1:01PM By Radha Stafford ; [facility], [facility] EnovaRX-traMADol 5% External Cream 11/29/2018 - 2023 Provider: Diagnosis: Last Documented On 4 1:01PM By Radha Stafford ; [facility], [facility] Cyanocobalamin 2500MCG Subli ngual Tablet Sublingual 11/22/2018 - 01/07/2024 Provider: MARIIA Gaytan Diagnosis: Last Documented On 4 1:01PM By Radha Stafford ; [facility], [facility] Bystolic 2.5MG Oral Tablet 11/18/2018 - 01/07/2024 Pro vider: MARIIA OLIVAS MD Diagnosis: Last Documented On 4 1:01PM By Radha Stafford ; [facility] clonazePAM 0.25MG Oral Table t Disintegrating 11/11/2018 - 01/07/2024 Provider: MARIIA Gaytan Diagnosis: Last Documented On 4 1:01PM By Radha Stafford ; [facility] Plavix 75 MG Tablet 07/19/2016 - 01/07/2024 Provider: Diagnosis: Last Documented On 4 1:01PM By Radha Stafford ; [facility] Aspirin 81 MG Tablet Delayed Release 07/19/2016 - 10/2023 Provider: Diagnosis: Last Documented On 4 1:01PM By Radha Stafford ; [facility] Bystolic 5 MG Tablet 06/27/2016 - 01/07/2024 Provider: Diagnosis: Last Documented On 4 1:01PM By Radha Stafford ; [facility] ClonazePAM 2 MG Tablet 06/12/2016 - 01/07/2024 Provide r: JOHNSON GONCALVES DO Diagnosis: Last Documented On 4 1:01PM By Radha Stafford ; [facility] Klor-Con 10 10 MEQ Tablet Extended Release 04/15/2016 - 01/07/2024 Provider: JOHNSON GONCALVES DO Diagnosis: Last Documented On 4 1:01PM By Radha Stafford ; [facility] Linzess 145 MCG OR CAPS 10/14/2013 - 01/07/2024 Provid er: Diagnosis: Last Documented On 4 1:01PM By Radha Stafford ; [facility] Ultram 50 MG OR TABS 10/14/2013 - 01/07/2024 Provider: Diagnosis: Last Documented On 4 1:01PM By Radha Stafford ; [facility] MOTRIN 800 MG OR TABS 05/08/2012 - 01/07/2024 Provider : Diagnosis: Last Documented On 4 1:01PM By Radha Stafford ; [facility] Lisinopril 20 MG OR TABS 05/08/2012 - 01/07/2024 Provi amado: Diagnosis: Last Documented On 4 1:01PM By Radha Stafford ; [facility] Percocet 7.5-325 MG OR TABS 11/02/2011 - 02/22/2021 Pr ovider: Catracho Rubio MD Diagnosis: mmh Last Documented On 1 1:43PM By Janelle Pendleton ; [facility] Percocet 7.5-325 MG OR TABS 10/10/2011 - 02/22/2021 Pr ovider: Catracho Rubio MD Diagnosis: ab Last Documented On 1:42PM By Janelle Pendleton ; [facility] Percocet 7.5-325 MG OR TABS 09/18/2011 - 02/22/2021 Pr ovider: Catracho Rubio MD Diagnosis: Last Documented On 1 1:42PM By Janelle Pendleton ; [facility] Percocet 7.5-325 MG OR TABS 09/05/2011 - 02/22/2021 Pr ovider: Catracho Rubio MD Diagnosis: Last Documented On 1 1:42PM By Janelle Pendleton ; [facility] Lortab 7.5-500 MG OR TABS 09/01/2011 - 02/22/2021 Prov ider: Catracho Rubio MD Diagnosis: cvs [phone] k/michaelb Last Documented On 1 1:42PM By Janelle Pendleton ; [facility] Percocet 5-325 MG OR TABS 08/23/2011 - 02/22/2021 Prov ider: Catracho Rubio MD Diagnosis: mmh Last Documented On 1 1:42PM By Janelle Pendleton ; [facility] Percocet 5-325 MG OR TABS 08/17/2011 - 02/22/2021 Prov ider: Catracho Rubio MD Diagnosis: mmh Last Documented On 1 1:43PM By Janelle Pendleton ; [facility] traMADol HCl 50 MG OR TABS 08/11/2011 - 02/22/2021 Pro vider: Catracho Rubio MD Diagnosis: [phone] cvs df Last Documented On 1 1:43PM By Janelle Pendleton ; [facility] traMADol HCl 50 MG OR TABS 07/21/2011 - 02/22/2021 Pro vider: Catracho Rubio MD Diagnosis: radha [phone] jrk.df Last Documented On 1 1:42PM By Janelle Pendleton ; [facility] traMADol HCl 50 MG OR TABS 07/06/2011 - 02/22/2021 Pro vider: Catracho Rubio MD Diagnosis: tid prn pain Last Documented On 1 1:42PM By Janelle Pendleton ; [facility] Relafen 500 MG OR TABS 05/09/2011 - 02/22/2021 Provide r: Catracho Rubio MD Diagnosis: mmh Last Documented On 1 1:42PM By Janelle Pendleton ; [facility] Valium 5 MG OR TABS 06/16/2010 - 02/22/2021 Provider: Catracho Rubio MD Diagnosis: take one pill 1 hour prior t o MRI and second pill right befor MRI. [facility] [phone] jrk Last Documented On 1 1:42PM By Janelle Pendleton ; [facility] Lortab 5-500 MG OR TABS 12/03/2008 - 02/22/2021 Provid er: Catracho Rubio MD Diagnosis: radha irene [phone] jrk/jsb Last Documented On 1 1:42PM By Janelle Pendleton ; [facility] Lortab 5-500 MG OR TABS 11/19/2008 - 02/22/2021 Provid er: Catracho Rubio MD Diagnosis: radha irene [phone] jsb Last Documented On 1 1:42PM By Janelle Pendleton ; [facility] Percocet 5-325 MG OR TABS 11/05/2008 - 02/22/2021 Prov ider: Catracho Rubio MD Diagnosis: post op med//mmh Last Documented On 1 1:42PM By Janelle Pendleton ; [facility] Percocet 5-325 MG OR TABS 10/26/2008 - 02/22/2021 Prov ider: Catracho Rubio MD Diagnosis: post op med//mmh Last Documented On 1 1:42PM By Janelle Pendleton ; [facility] Medications Administered Includes: Administered Medications in patient's chart No Administered Medications Recorded Vital Signs Includes: Vital Signs from 11/14/2023 through 11/13/2024 Vital Name 01/24/2024 10:01A 01/07/2024 02: 08P Height (in) 61 61 Weight (lb) 175.2 174 Body Mass Index 33.1 32.9 Body Surface Area 1.8 1.8 Pain Level 8 10 Note: [facility] Last Documented: On 01/24/2024 10:01A M ; [facility] On 01/07/2024 2:08PM ; [facility] Results Includes: Results from 11/14/2023 through 11/13/2024 No Results Recorded For Specified Dates History of Present Illness History of Present Illness not supported for this document type No History of Present Illness Recorded Social History Description Last Updated No recent change in diet 01/07/2024 Last Documented On 4 11:55AM ; [facility] Not a current smoker. 01/07/2024 Last Documented On 4 11:55AM ; [facility] Non-smoker 02/22/2021 Last Documented On 1 1:38PM ; [facility] No caffeine use 06/11/2019 Last Documented On 9 10:34AM ; [facility] No recent change in diet 07/19/2016 Last Documented On 6 11:49AM ; [facility] Not a current smoker 07/19/2016 Last Documented On 6 11:49AM ; [facility] Not exercising regularly 07/19/2016 Last Documented On 6 11:49AM ; [facility] Not using alcohol 07/19/2016 Last Documented On 6 11:49AM ; [facility] Not using drugs 07/19/2016 Last Documented On 6 11:49AM ; [facility] No tobacco use 10/14/2013 Last Documented On 4 9:11AM ; [facility] Smoking status : Never smoked/ Recode: 4 10/14/2013 Last Documented On 4 9:11AM ; [facility] Procedures and Surgical History Includes: Procedures from 11/14/2023 through 11/13/2024 Procedures Code Diagnosis Performing Provider Service Location Service Date X-RAY EXAM OF LOWER SPINE 2-3 VIEWS LIMITED [id number] Other intervertebral disc degeneration, lumbar region, Fusion of spine, lumbar region Constantine Garcia [facility] 01/07/2024 Last Documented On 4 7:11AM ; [facility] Surgical History Last Updated History of total hip replacement Left 01/24/2024 Last Documented On 4 11:36AM ; [facility] Past Surgical History: left carpal tunne l ~right and left arm rotator cuff 01/24/2024 Last Documented On 4 11:36AM ; [facility] History of History of Gallbladder 2023 Last Documented On 4 11:55AM ; [facility] History of appendectomy 09/24/2019 Last Documented On 0 3:04PM ; [facility] History of back surgery 09/24/2019 Last Documented On 0 3:04PM ; [facility] History of hysterectomy 09/24/2019 Last Documented On 0 3:04PM ; [facility] Medical History Includes: Medical History in patient's chart Description Last Updated History of History of Blood Transfusion 01/24/2024 Last Documented On 4 11:36AM ; [facility] History of asthma 01/07/2024 Last Documented On 4 11:55AM ; [facility] History of Hypertension 01/07/2024 Last Documented On 4 11:55AM ; [facility] History of Irregular Heartbeat 4 Last Documented On 4 11:55AM ; [facility] History of Liver Disease 01/07/2024 Last Documented On 4 11:55AM ; [facility] History of Sleep Apnea 01/07/2024 Last Documented On 4 11:55AM ; [facility] left carpal tunnel ~right and left arm r otator cuff ~blood transfusion 09/24/2019 Last Documented On 0 3:04PM ; [facility] A recent immunization for pneumococcal p neumonia 06/201609/24/2019 Last Documented On 0 3:04PM ; [facility] Arthritic joint problems 09/24/2019 Last Documented On 0 3:04PM ; [facility] Gallbladder disease 09/24/2019 Last Documented On 0 3:04PM ; [facility] History of diverticulitis of colon 09/24 Last Documented On 0 3:04PM ; [facility] History of hepatitis 09/24/2019 Last Documented On 0 3:04PM ; [facility] Intermittent hypertension 09/24/2019 Last Documented On 0 3:04PM ; [facility] Family History Includes: Family History in patient's chart Description Last Updated Family history of cancer 09/24/2019 Last Documented On 0 3:04PM ; [facility] Family history of heart disease 09/24/19 20 Last Documented On 0 3:04PM ; [facility] Family history of hypertension 0 Last Documented On 0 3:04PM ; [facility] Family history of rheumatoid arthritis m other 09/24/2019 Last Documented On 0 3:04PM ; [facility] Review of Systems Review of Systems not supported for this document type No Review of Systems Recorded Mental Status Description Anxiety Functional Status No Functional Status Recorded Physical Exam Physical Exam not supported for this document type No Physical Exam Recorded Allergies Includes: Active, inactive, and resolved Allergies Substance Type Reaction Onset Date Resolved Date Statu s nickel allergy Allergy 12/04/2018 Acti ve Last Documented On 4 9:47AM ; [facility] Keflex Allergy 10/14/2013 Active Last Documented On 4 9:47AM ; [facility] Betadine Allergy 10/14/2013 Active Last Documented On 4 9:47AM ; [facility], [facility] Bactroban Allergy 03/28/2019 Active Last Documented On 4 9:47AM ; [facility], [facility] Encounters Includes: Encounters from 11/14/2023 through 11/13/2024 Encounter Provider Location Date Check-In Time Check-Out Time Diagnosis Follow Up Edwardo English MD [facility] 01/24/20 24 9:30AM 10:27AM Overweight Physician Specified Constantine Garcia PA-C [facility] 01/07/20 24 12:57PM 2:00PM Overweight Insurance Includes: Active Insurance Policies Plan Name Member ID Group # Subscriber Relationship Effect etelvina Dates 1 - [employer] [id number] Samara Hayward Self 07/16/2019 - Unknown Clinical Notes Includes: Signed Clinical Notes starting from 07/20/2022 * Progress note Date Encounter Last Documented by 01/24/2024 Follow Up Last documented on 01/24/2024; 11:36 AM, Edwardo English MD; [facility] Active Problems & Conditions - Joint Pain in the Left Hip - Joint Pain, Localized in the Knee - Lower Back Pain Chief Complaint The Chief Complaint is: Low back pain. Referred Here Referred by Self. History of [...] numb from the knee down to her feet she believes she has a circulation problem with the legs to. Her previous back surgery was in 2002. Pain with walking rates her pain level 8 to 9/10. She is done previous epidurals with pain management and states that they were not going to do a stimulator trial on her back then because she was having problems with falling and that has not happening as much now. Current Medication - Atorvastatin Calcium 20 MG [...] Capsule 7 days, 0 refills - Nystatin 797016 UNIT/GM External Ointment 10 days, 0 refills [...] immunization for pneumococcal pneumonia 06/2016. Diagnoses: Asthma History of Blood Transfusion Irregular Heartbeat Sleep Apnea Liver Disease Hypertension. Diverticulitis of colon Hepatitis Surgical: - Appendectomy - Past Surgical History: left carpal tunnel right and left arm rotator cuff - Hysterectomy - History of Gallbladder - Back surgery - Total hip replacement Left 03/31/19 Social History Not a current smoker. Current diet: No recent change in diet. No recent change in diet. Caffeine use: No caffeine use. Tobacco use: No tobacco use and not a current smoker. Non-smoker. Smoking status: Never smoker. Alcohol: Not using alcohol. Drug Use: Not [...] allergic reaction. Physical Findings - Vitals taken 01/24/2024 10:01 am lc Height 61 in Weight 175 lbs 3.2 oz Body Mass Index 33.1 kg/m2 Body Surface Area 1.8 m2 Pain Level 8 Patient uses a cane to walk with Previous incision with the back was healed Varicose vein lower extremities 4+ out of 5 EHL gastrocs quadriceps tibialis anterior strength bilaterally Negative straight leg raise bilaterally Blunted Achilles and patellar reflexes bilaterally 2+ pulses both lower extremities Tests Two views lumbar spine shows previous fusion at L3-L4 as well as degenerative changes reviewed MRI lumbar spine shows degenerative changes previous fusion there is no significant stenosis Assessment - Overweight Lumbar DDD Previous Tests Imaging: MRI Scan: An MRI was performed L-spine 01/14/24 @ [facility]. Available previous imaging studies were reviewed Available previous history reviewed Counseling/Education - Tobacco non-user - Use of tobacco assessment performed - Lose weight Plan StartCited - Overweight Referral/Pain Management: Consult for Pain Management Instructions: Dr Stone SCS // cc Referral/Vascular: Consult with Vascular Instructions: Dr Leiva for Vascular Consult /// cc EndCited - Patient screened for future fall risk: documentation of any fall with injury in past year - Clinical consultation report - Referral to physician Fall Risk Assessment: This patient has been [...] Garcia PA-C. Patient will follow up with us as needed there is no role for any further back surgery for her. He she feels she has a circulation problem but we feel that her pulses are okay we are going to refer her to Dr. Leiva for a vascular workup and referred to Dr. Braden for a spinal cord stimulator trial Notes This dictation was done with voice recognition software and may contain errors and omissions. Care Team - Adrián Swenson Health Reminders - Assess BMI satisfied 01/24/2024. - Assess Tobacco Use satisfied 10/14/2013. - Follow Up Plan BMI Management satisfied 01/24/2024. * Progress note Date Encounter Last Documented by 01/07/2024 Physician Specified Last documen paras on 01/11/2024; 11:55 AM, Constantine Garcia PA-C; [facility], [facility] Active Problems & Conditions - Joint Pain [...] Capsule 7 days, 0 refills - Nystatin 045011 UNIT/GM External Ointment 10 days, 0 refills [...]
--- OUTSIDE RECORDS SUMMARY | 2024-11-13 19:46 | XMS_ITS | Data Portability ---
Author Organization [place] [facility] [place] [facility] Address [address] [place] [address] Care Team Providers Care Bearing Machine Operator Name Role Phone YARITZA MARIN Primary Care Provider Assessment Encounter Date Assessment Date Assessment LastModified by Organization Details LastModified Time 12/13/2017 12/13/2017 We discussed the diagnosis of nonobstructing renal stone. I do not believe that this was the cause of her pain. I believe the pain is to due to diverticulitis. She does have risk of recurrent bladder infection and urinary infection with renal stone. She is unsure if she wants stone treated at this time. We will continue to follow with JENY [email or web address] Not available 12/18/2017 12:00:50 Plan of Treatment Reminders Order Date Submit Date Provider Last Modified By Organization Details Last Modified Time Details Appointments None recorde d. Lab urinaly sis, dipstic k, auto 018 12/14/19 18 4 [facility], [address] [place] [address] Dr Celeste, [place], [address], 8 20:43:45 culture , urine 018 12/14/19 18 [facility], [address] [place] [address], [address], 8 08:44:07 Referral None recorde d. Procedures None recorde d. Surgeries None recorde d. Imaging None recorde d. Medication Orders None recorde d. Patient TargetsNo targets recorded. Patient Instructions Encounter Date Encounter Id Patient Instructions Last Modified By Organization Details Last Modified Time 12/13/2017 [id number] healthy together [email or web address] Not availa ble 12/13/2017 20:43:45 Urinary Tract Infection (UTI) in Women: Care Instructions Not available 12/13/2017 20:43:45 learning about high blood pressure [email or web address] Not available 12/13/2017 20:43:45 kidney stone: care instructions [email or web address] Not available 12/18/2017 11:59:52 learning about diet for kidney stone prevention [email or web address] Not available 12/18/2017 11:59:52 Reason for Referral None Reported. Results Created Date Observation Date Name Description Value Unit Range Abnormal Flag Note LastModifiedBy Organization Detail LastModifiedTime 12/14/19 18 12/13/2017 urina lysis , dipst ick, auto Unknown Analyte Yellow Not Available [facility] With [address]este, [place], [address], 12/13/2017 18:12:50 12/14/19 18 12/13/2017 urina lysis , dipst ick, auto Unknown Analyte Clear Not Available [facility] With [address]este, [place], [address], 12/13/2017 18:12:50 12/14/19 18 12/13/2017 urina lysis , dipst ick, auto Unknown Analyte 1.020 Not Available [facility] With [address]este, [place], [address], 12/13/2017 18:12:50 12/14/19 18 12/13/2017 urina lysis , dipst ick, auto Unknown Analyte 5.0 Not Available [facility] With [address] Celeste, [place], [address], 12/13/2017 18:12:50 12/14/19 18 12/13/2017 urina lysis , dipst ick, auto Unknown Analyte 500 Ruddy/ul (++) Not Available [facility] With [address] [place], [address], 12/13/2017 18:12:50 12/14/19 18 12/13/2017 urina lysis , dipst ick, auto Unknown Analyte Negati ve Not Available [facility] [place] [address] [place], [address], 12/13/2017 18:12:50 12/14/19 18 12/13/2017 urina lysis , dipst ick, auto Unknown Analyte Negtiv e Not Available [facility] With [address] [place], [address], 12/13/2017 18:12:50 12/14/19 18 12/13/2017 urina lysis , dipst ick, auto Unknown Analyte Normal Not Available [facility] With [address] [place], [address], 12/13/2017 18:12:50 12/14/19 18 12/13/2017 urina lysis , dipst ick, auto Unknown Analyte Negati ve Not Available [facility] With [address] [place], [address], 12/13/2017 18:12:50 12/14/19 18 12/13/2017 urina lysis , dipst ick, auto Unknown Analyte Normal Not Available [facility] With [address] [place], [address], 12/13/2017 18:12:50 12/14/19 18 12/13/2017 urina lysis , dipst ick, auto Unknown Analyte Negati ve Not Available [facility] With [address] [place], [address], 12/13/2017 18:12:50 05/10/20 18 12/13/2017 urina lysis , dipst ick, auto Unknown Analyte 50 Tony/ul Not Available [facility] With [address]este, [place], [address], 12/13/2017 18:12:50 12/14/19 18 12/13/2017 urina lysis , dipst ick, auto Unknown Analyte Clean Catch Not Available [facility] With [address]este, [place], [address], 12/13/2017 18:12:50 12/14/19 18 12/13/2017 urina lysis , dipst ick, auto Unknown Analyte Automa paras Not Available [facility] With [address]este, [place], [address], 12/13/2017 18:12:50 12/14/19 18 12/13/2017 cultu re, urine results [facility] e: CCUR Colle cted: 12/13 18:14 Site: Recei fawad : 12/14 09:06 URINE SCREE N(CUL TURE) FINAL 12/17 11:16 12/17 COLON Y COUNT : 10,00 0 - 100,0 00 CFU/M L Three or more isola rolo; mixed skin monique . Not Available [facility] [address] [facility], [place], [address], 12/17/2017 11:16:32 12/15/19 18 05/08/2017 CT, abdom en + pelvi s, w/o contr ast No observ ation record ed. [email or web address] Not Available 12/04 13:00:45 03/07/20 18 11/08/2017 CT, abdom en + pelvi s, w/o contr ast No observ ation record ed. BARCODE Not Available 2017 08:35:03 08/22/19 19 08/22/2018 fluor oscop y (PROC ) No observ ation record ed. [address] [facility] [place] [address] [place], [id number], 08/26/2018 07:53:35 08/29/19 19 08/29/2018 XR, abdom en, 1 view No observ ation record ed. [address] [facility] [place] [address] [place], [id number], 09/02/2018 15:41:08 09/12/19 19 09/12/2018 XR, abdom en, 1 view No observ ation record ed. [address] [facility] [place] [address] [place], [id number], 09/16/2018 15:23:48 Result Notes None recorded. Problems Name Problem SNOMED Code Status Onset Date Resolution Date Notes Provider Name and Address Organization Details Recorded Time Kidney stone 16546872 Active 018 Murelene Atul [facility] 12/13/2017 18:08:39 Problem Notes None recorded. Procedures Surgical History Date Name Laterality Status Provider Name and Address Organization Details Recorded Time [facility] 12/13/2017 18:09:19 Appendectomy completed Murelene Atul [facility] 12/13/2017 18:09:22 [facility] 12/13/2017 18:09:27 Carpal tunnel surgery completed Murelene Atul [facility] 12/13/2017 18:09:35 Heart Surgery completed Murelene Atul [facility] 12/13/2017 18:09:43 Xcapsl ctrc rmvl cplx wo ecp completed Murelene Atul [facility] 12/13/2017 18:10:24 Imaging Results Imaging Date Name Status [facility]Modified by [facility] Details LastModified Time 05/08/2017 CT, abdomen + pelvis, w/o contrast completed [email or web address] Information not available 12/17/2017 13:00:45 11/08/2017 CT, abdomen + pelvis, w/o contrast completed BARCODE Information not available 03/07/2018 08:35:03 08/22/2018 fluoroscopy (PROC) completed [address] [facility] [place] [address] [place], [id number], 08/26/2018 07:53:35 08/29/2018 XR, abdomen, 1 view completed [address] [facility] [place] [address] [place], [id number], 09/02/2018 15:41:08 09/12/2018 XR, abdomen, 1 view completed [address] [facility] [place] [address] [place], [id number], 09/16/2018 15:23:48 Procedure Notes None recorded. Medical Equipment None Reported. Allergies Allergen ID Allergen Name Allergen Category Reaction Reaction Severity Criticality Documentation Date Start Date Code Code System Note Provider Name and Address Organization Details Recorded Time 468105 Keflex medicatio n Not available Not available Not available 06/30/2016201316 7 RxNorm Comme nt: Creat ed By: Yany Gentile paras Date: 014 1:57: 39 PM; Not Available [facility] 6 05:28:44 539559 Iodinated contrast media (substanc e) medicatio n Not available Not available Not available 12/13/2017 61692 2004 [facility] 8 18:06:57 Medications Name Sig Start Date Stop Date Status Note LastModified by Organization Details LastModified Time atorvastati n 20 mg tablet Take 1 tablet every day by oral route. active Not Available Not Available No t Available ibuprofen 800 mg tablet Every six hours 12/13 completed Duratio n: 30 days;Fr equency : q6h;Med ication Descrip tion: ibuprof en; Dosage: 1; Route:o ral; refills :0; Quantit y:60 tablet Not Available Not Available Not Available lisinopril 20 mg tablet Daily active Duratio n: 30 days;Fr equency : daily;M edicati on Descrip tion: lisinop ril; Dosage: 1; Route:o ral; refills :0; Quantit y:30 tablet Not Available Not Available Not Available tramadol 50 mg tablet Two times a day active Frequen cy: bid;Med ication Descrip tion: tramado l; Dosage: 1; Route:o ral; refills :0 Not Available Not Available Not Available Klonopin active Not Available Not Avai lable Not Available Aspir-81 active Not Available Not Avai lable Not Available carvedilol active Not Available Not Av ailable Not Available Klor-Con active Not Available Not Avai lable Not Available Linzess 145 mcg capsule Daily 2017 active Frequen cy: daily;Julia knight on Descrip tion: linaclo tide; Dosage: 1; Route:o ral; refills :0 Not Available Not Available Not Available Vitals Date Recorded Body height Body mass index (BMI) Body weight Systolic blood pressure Diastolic blood pressure Provider Name and Address Organization Details Last Updated DateTime 12/13/2017 154.94 cm 34.2 kg/m2 91595.22 g 140 mm[Hg] 60 mm[Hg] Bo Pollard [facility] 8 18:06:44 Social History Question Answer Notes LastModified by Organizat ion Details LastModified Time Tobacco Smoking Status Former Smoker Mathieumigel Atul [facility] 12/13/2017 18:09:02 What Is Your Level Of Alcohol Consumption? None [email or web address] Information not available 12/13/2017 What Was The Date Of Your Most Recent Tobacco Screening? 12/13/2017 Information n ot available 09/23/2019 Sex: Unknown Functional Status None recorded. Mental Status None recorded. Family History Relationship Description Onset Age of this Age Resolved Age Notes LastModified by Organization Details LastModified Time Unspecified Relation Kidney stone [email or web address] Not available 12/04 18:08:51 Medical History Condition Response High PSA Y Anxiety Disorder Y Ulcers Y Arthritis Y Kidney Stones Y Depression Y Gynecological HistoryNo gynecological history recorded. Obstetrics History GPAL:G 0 P 0 0 0 0 Past Encounters Encounter ID Performer Location Encounter Start Date Encounter Closed Date Diagnosis/Indication Diagnosis SNOMED-CT Code Diagnosis ICD10 Code Diagnosis Note [id number] JEY SAM MD [facility] [address] [place] [address] 12/13/2017 15:35:16 12/18/2017 12:30:05 Urinary tract infectious disease 87216020 N39.0 Kidney stone 72713583 N2 0.0 Health Concerns Section Related Observation LastModified by Organization Detai ls LastModified Time None Recorded Concern Status LastModified by Organization Details LastModified Time None Recorded Advance Directives Directive None Recorded Payers Encounter Date Sequence Insurance Name Policy Number Policy Alexander Covered Member ID Alexander Member ID Guarantor Name 12/13/2017 1 [employer] (MEDICARE REPLACEMENT/ ADVANTAGE - PPO) Samara Hayward [id number] Samara Hayward Notes Date Note Type Note Provider Name and Address Organization Details Recorded Time 12/13/2017 text/html 72-year-old fema le in the office for consultation and evaluation of urolithiasis. She was recently admitted to the hospital secondary to left flank pain and treated for diverticulitis. CT scan was performed that showed acute diverticulitis and a nonobstructing left renal stone-size not recorded on CT report. she was treated with Cipro for UTI in October 2017. Pain is nonradiating, 5 out of 10, no aggravating or alleviating factors. She is a previous patient of Dr. Macias. She has occasional dysuria. She has slow urinary stream. Denies intermittency or dysuria. She denies nocturia. JEY SAM MD [address] [place] [address], [phone], [facility] 12/18/2017 12:01:48 OBGyn Episode No OBEpisode recorded.
--- OUTSIDE RECORDS SUMMARY | 2024-11-13 19:46 | XMS_ITS | Clinical Summary ---
Author Organization [facility] Address [address] [place] [address] Phone Care Team Providers Care Farm Field Manager Name Role Phone JOHNSON GONCALVES DO Primary Care Provider [phone] Adrián Swenson MD Unavailable [phone] Rafi Roberts MD Unavailable [phone] Reason for Visit and Chief Complaint BRACE FITTING Problems Includes: Problems addressed during this encounter and other active Problems All Visits Onset Date Resolved Date Provider Condition S tatus Lower Back Pain 01/07/2024 Constantine Garcia PA-C A ctive Last Documented On 4 1:00PM ; [facility], [facility] Joint Pain in the Left Hip 07/19/2016 Catracho lewis MD Active Last Documented On 6 2:14PM ; [facility], [facility] Joint Pain, Localized in the Knee 10/14/2013 Rebecca Rubio MD Active Last Documented On 4 2:09PM ; [facility], [facility] Plan of Treatment No Plan of Treatment Recorded Assessments Includes: Assessments from this encounter No Assessments Recorded Medical Equipment - Implanted Devices Includes: Current Devices No Medical Equipment Recorded Medications Includes: Medications discussed during this encounter and other current Medications Current Medications (continue as prescribed) diphenhydrAMINE HCl 5 MG/ML Oral Suspension Reconstitu paras 01/07/2024 Provider: Diagnosis: Last Documented On 4 1:30PM By Radha Stafford ; [facility], [facility] Klor-Con M20 20 MEQ Oral Tablet Extended Release 01/06 Provider: Diagnosis: Last Documented On 4 1:31PM By Radha Stafford ; [facility] Phenazopyridine HCl 200 MG Oral Tablet 01/04/2024 Pr ovider: Diagnosis: Last Documented On 4 1:02PM By Radha Stafford ; [facility] Symbicort 160-4.5 MCG/ACT Inhalation Aerosol Provider: Diagnosis: Last Documented On 4 1:02PM By Radha Stafford ; [facility] Nitrofurantoin Monohyd Macro 100 MG Oral Capsule 12/18 Provider: Diagnosis: Last Documented On 4 1:02PM By Radha Stafford ; [facility] Premarin 0.625 MG/GM Vaginal Cream 12/14/2023 Provid er: Diagnosis: Last Documented On 4 1:02PM By Radha Stafford ; [facility] traMADol HCl 50 MG Oral Tablet 12/14/2023 Provider: MARIIA OLIVAS MD Diagnosis: Last Documented On 4 1:02PM By Radha Stafford ; [facility] Nystatin 360339 UNIT/GM External Ointment 12/03/2023 Provider: Diagnosis: Last Documented On 4 1:02PM By Radha Stafford ; [facility] Atorvastatin Calcium 20 MG Oral Tablet 11/21/2023 Pr ovider: MARIIA OLIVAS MD Diagnosis: Last Documented On 4 1:30PM By Radha Stafford ; [facility] Potassium Chloride Zaina ER 2 0 MEQ Oral Tablet Extended Release 09/08/2023 Provider: Kathleen Sanderson APRN Diagnosis: Last Documented On 4 1:02PM By Radha Stafford ; [facility] Furosemide 20 MG Oral Tablet 08/16/2023 Provider: Kathleen Sanderson APRN Diagnosis: Last Documented On 4 1:02PM By Radha Stafford ; [facility] Ipratropium-Albuterol 0.5-2.5 (3) MG/3ML Inhalat ion Solution 08/01/2023 Provider: Diagnosis: Last Documented On 4 1:31PM By Radha Stafford ; [facility], [facility] Medications Administered Includes: Administered Medications from this encounter No Administered Medications Recorded Results Includes: Results discussed during this encounter No Results Recorded For Specified Dates History of Present Illness Includes: History of Present Illness from this encounter No History of Present Illness Recorded Social History No Social History Recorded - Smoking Status Unknown Medical History Includes: Medical History addressed during this encounter No Medical History Recorded Family History Includes: Family History addressed during this encounter No Family History Recorded Review of Systems Includes: Review of Systems from this encounter No Review of Systems Recorded Mental Status Includes: Mental Status from this encounter No Mental Status Recorded Functional Status Includes: Functional Status from this encounter No Functional Status Recorded Physical Exam Includes: Physical Exam from this encounter No Physical Exam Recorded Allergies Includes: Active Allergies Substance Type Reaction Onset Date Resolved Date Statu s nickel allergy Allergy 12/04/2018 Acti ve Last Documented On 4 9:47AM ; [facility] Keflex Allergy 10/14/2013 Active Last Documented On 4 9:47AM ; [facility] Betadine Allergy 10/14/2013 Active Last Documented On 4 9:47AM ; [facility] Bactroban Allergy 03/28/2019 Active Last Documented On 4 9:47AM ; [facility] Encounters Encounter Provider Location Date Check-In Time Check-Out Time Diagnosis BRACE FITTING Catracho Rubio MD [facility] 06/11/2019 2:19PM 11:59PM Insurance Includes: Active Insurance Policies Plan Name Member ID Group # Subscriber Relationship Effect etelvina Dates 1 - [employer] [id number] Samara Hayward Self 07/16/2019 - Unknown Clinical Notes Includes: Clinical Notes from this encounter No Clinical Notes Recorded
--- OUTSIDE RECORDS SUMMARY | 2024-11-13 19:46 | XMS_ITS | Clinical Summary ---
Author Organization [facility] Address [address] [place] [address] Phone Care Team Providers Care Private Client Advisor Name Role Phone JOHNSON GONCALVES DO Primary Care Provider [phone] Adrián Swenson MD Unavailable [phone] Rafi Roberts MD Unavailable [phone] Reason for Referral Date Encounter Description Provider Reason for Referral 01/24/24 Follow Up Edwardo English MD Referral To Physician Reason for Visit and Chief Complaint The Chief Complaint is: low back pain Problems Includes: Problems addressed during this encounter and other active Problems Current Visit Onset Date Resolved Date Provider Conditio n Status Lower Back Pain 01/07/2024 Constantine Garcia PA-C A ctive Last Documented On 4 1:00PM ; [facility] Past Visits Onset Date Resolved Date Provider Condition Status Joint Pain in the Left Hip 07/19/2016 Catracho Rubio MD Active Last Documented On 6 2:14PM ; [facility] Joint Pain, Localized in the Knee 10/14/2013 Rebecca Rubio MD Active Last Documented On 4 2:09PM ; [facility] Plan of Treatment - Patient screened for future fall risk: documentation of any fall with injury in past year - Last Documented On 01/24/2024 11:36AM ; [facility] - Clinical consultation report - Last Documented On 01/24/2024 11:36AM ; [facility] - Referral to physician - Last Documented On 01/24/2024 11:36AM ; [facility] Fall Risk Assessment: This patient has been [...] with the patient. - Last Documented On 01/24/2024 11:36AM ; [facility] Patient was seen by myself Constantine Garcia [...] Braden for a spinal cord stimulator trial - Last Documented On 01/24/2024 11:36AM ; [facility] Referrals To Diagnosis Consult for Pain Management Over weight Note: Dr Stone SCS // cc Last Documented On 4 8:31AM ; [facility], [facility] Consult with Vascular Overweight Note: Dr Leiva for Vascular Consult /// cc Last Documented On 4 11:36AM ; [facility], [facility] Instructions to patient Lose weight Last Documented On 4 9:47AM ; [facility] Assessments Includes: Assessments from this encounter Findings - Overweight - Last Documented On 01/24/2024 11:36AM ; [facility], [facility] Lumbar DDD - Last Documented On 01/24/2024 11:36AM ; [facility] Instructions Includes: Instructions from this encounter Instructions to patient Lose weight Last Documented On 4 9:47AM ; [facility] Medical Equipment - Implanted Devices Includes: Current Devices No Medical Equipment Recorded Medications Includes: Medications discussed during this encounter and other current Medications Current Medications (continue as prescribed) diphenhydrAMINE HCl 5 MG/ML Oral Suspension Reconstitu paras 01/07/2024 Provider: Diagnosis: Last Documented On 4 1:30PM By Radha Stafford ; [facility] Klor-Con M20 20 MEQ Oral Tablet Extended Release 01/06 Provider: Diagnosis: Last Documented On 4 1:31PM By Radha Stafford ; [facility] Phenazopyridine HCl 200 MG Oral Tablet 01/04/2024 Pr ovider: Diagnosis: Last Documented On 4 1:02PM By Radha Stafford ; [facility] Symbicort 160-4.5 MCG/ACT Inhalation Aerosol Provider: Diagnosis: Last Documented On 4 1:02PM By Radha Stafford ; [facility] Nitrofurantoin Monohyd Macro 100 MG Oral Capsule 12/18 Provider: Diagnosis: Last Documented On 4 1:02PM By Radha Stafford ; [facility] Premarin 0.625 MG/GM Vaginal Cream 12/14/2023 Provid er: Diagnosis: Last Documented On 4 1:02PM By Radha Stafford ; [facility] traMADol HCl 50 MG Oral Tablet 12/14/2023 Provider: MARIIA OLIVAS MD Diagnosis: Last Documented On 4 1:02PM By Radha Stafford ; [facility] Nystatin 991849 UNIT/GM External Ointment 12/03/2023 Provider: Diagnosis: Last Documented On 4 1:02PM By Radha Stafford ; [facility] Atorvastatin Calcium 20 MG Oral Tablet 11/21/2023 Pr ovider: MARIIA OLIVAS MD Diagnosis: Last Documented On 4 1:30PM By Radha Stafford ; [facility] Potassium Chloride Zaina ER 2 0 MEQ Oral Tablet Extended Release 09/08/2023 Provider: Kathleen Sanderson APRN Diagnosis: Last Documented On 4 1:02PM By Radha Stafford ; [facility] Furosemide 20 MG Oral Tablet 08/16/2023 Provider: Kathleen Sanderson APRN Diagnosis: Last Documented On 4 1:02PM By Radha Stafford ; [facility] Ipratropium-Albuterol 0.5-2.5 (3) MG/3ML Inhalat ion Solution 08/01/2023 Provider: Diagnosis: Last Documented On 4 1:31PM By Radha Stafford ; [facility] Medications Administered Includes: Administered Medications from this encounter No Administered Medications Recorded Vital Signs Includes: Vital Signs from this encounter Vital Name 01/24/2024 10:01A Height (in) 61 Weight (lb) 175.2 Body Mass Index 33.1 Body Surface Area 1.8 Pain Level 8 Note: lc Last Documented: On 01/24/2024 10:01A M ; [facility] Results Includes: Results discussed during this [...] that has not happening as much now. Social History Description Last Updated No recent change in diet 01/07/2024 Last Documented On 4 9:47AM ; [facility] Not a current smoker. 01/07/2024 Last Documented On 4 9:47AM ; [facility] Non-smoker 02/22/2021 Last Documented On 4 9:47AM ; [facility] No caffeine use 06/11/2019 Last Documented On 4 9:47AM ; [facility] No recent change in diet 07/19/2016 Last Documented On 4 9:47AM ; [facility] Not a current smoker 07/19/2016 Last Documented On 4 9:47AM ; [facility] Not exercising regularly 07/19/2016 Last Documented On 4 9:47AM ; [facility] Not using alcohol 07/19/2016 Last Documented On 4 9:47AM ; [facility] Not using drugs 07/19/2016 Last Documented On 4 9:47AM ; [facility] No tobacco use 10/14/2013 Last Documented On 4 9:47AM ; [facility] Smoking status : Never smoked/ Recode: 4 10/14/2013 Last Documented On 4 9:47AM ; [facility] Procedures and Surgical History Includes: Procedures from this encounter Procedures Code Diagnosis Performing Provider Service L ocation Service Date an MRI was performed L-spine 01/14/24 @ [facility] [id number] Last Documented On 4 9:48AM ; [facility] Surgical History Last Updated History of total hip replacement Left 01/24/2024 Last Documented On 4 11:36AM ; [facility] Past Surgical History: left carpal tunne l ~right and left arm rotator cuff 01/24/2024 Last Documented On 4 11:36AM ; [facility] History of History of Gallbladder 2023 Last Documented On 4 9:47AM ; [facility] History of appendectomy 09/24/2019 Last Documented On 4 9:47AM ; [facility] History of back surgery 09/24/2019 Last Documented On 4 9:47AM ; [facility] History of hysterectomy 09/24/2019 Last Documented On 4 9:47AM ; [facility] Medical History Includes: Medical History addressed during this encounter Description Last Updated History of History of Blood Transfusion 01/24/2024 Last Documented On 4 11:36AM ; [facility] History of asthma 01/07/2024 Last Documented On 4 9:47AM ; [facility] History of Hypertension 01/07/2024 Last Documented On 4 9:47AM ; [facility] History of Irregular Heartbeat 4 Last Documented On 4 9:47AM ; [facility] History of Liver Disease 01/07/2024 Last Documented On 4 9:47AM ; [facility] History of Sleep Apnea 01/07/2024 Last Documented On 4 9:47AM ; [facility] A recent immunization for pneumococcal p neumonia 06/201609/24/2019 Last Documented On 4 9:47AM ; [facility] Arthritic joint problems 09/24/2019 Last Documented On 4 9:47AM ; [facility] Gallbladder disease 09/24/2019 Last Documented On 4 9:47AM ; [facility] History of diverticulitis of colon 09/24 Last Documented On 4 9:47AM ; [facility] History of hepatitis 09/24/2019 Last Documented On 4 9:47AM ; [facility] Intermittent hypertension 09/24/2019 Last Documented On 4 9:47AM ; [facility] Family History Includes: Family History addressed during this encounter Description Last Updated Family history of cancer 09/24/2019 Last Documented On 4 9:47AM ; [facility] Family history of heart disease 09/24/19 20 Last Documented On 4 9:47AM ; [facility] Family history of hypertension 0 Last Documented On 4 9:47AM ; [facility] Family history of rheumatoid arthritis m other 09/24/2019 Last Documented On 4 9:47AM ; [facility] Review of Systems Includes: Review of Systems [...] ve Last Documented On 4 9:47AM ; [facility] Keflex Allergy 10/14/2013 Active Last Documented On 4 9:47AM ; [facility] Betadine Allergy 10/14/2013 Active Last Documented On 4 9:47AM ; [facility] Bactroban Allergy 03/28/2019 Active Last Documented On 4 9:47AM ; [facility] Encounters Encounter Provider Location Date Check-In Time Check-Out Time Diagnosis Follow Up Edwardo English MD [facility] [place] [facility] [place] 4 9:30AM 10:27AM Overweight Insurance Includes: Active Insurance Policies Plan Name Member ID Group # Subscriber Relationship Effect etelvina Dates 1 - [employer] [id number] Samara Hayward Self 07/16/2019 - Unknown Clinical Notes Includes: Clinical Notes from this encounter * Progress note Date Encounter Last Documented by 01/24/2024 Follow Up Last documented on 01/24/2024; 11:36 AM, Edwardo English MD; [facility] Active Problems & Conditions - Joint [...] Capsule 7 days, 0 refills - Nystatin [id number] UNIT/GM External Ointment 10 days, 0 refills [...] An MRI was performed L-spine 01/14/24 @ [facility]. Available previous imaging studies were reviewed Available [...] the patient. Patient was seen by myself oCnstantine Garcia PA-C. Patient will follow up with [...]
== END 2024-11-08 12:05 | disposition home or self-care (01) ==
PROVIDERS: Emergency Provider Emergency Medicine; PCP Internal Medicine
DX: L25.9 Unspecified contact dermatitis, unspecified cause (principal); R21 Rash and other nonspecific skin eruption; F41.9 Anxiety disorder, unspecified; H93.19 Tinnitus, unspecified ear; K21.9 Gastro-esophageal reflux disease without esophagitis; I25.10 Atherosclerotic heart disease of native coronary artery without angina pectoris; G47.33 Obstructive sleep apnea (adult) (pediatric)
CPT/HCPCS: 96372; 99283; J1100

== ENCOUNTER 2025-01-06 16:10 | Outpatient (CLI) | payer MEDICARE, SELFPAY ==
--- NOTE | 2025-01-06 16:16 | XR_ITS ---
PROCEDURE INFORMATION: Exam: XR Left Hip Exam date and time: 01/06/2025 4:19 PM Age: 79 years old Clinical indication: Hip pain; Left hip; Prior surgery; Surgery date: 6+ months; Surgery type: 2004 hip replacement TECHNIQUE: Imaging protocol: Radiologic exam of the left hip. Views: 2 or 3 views hip with pelvis when performed. Total images: 3 COMPARISON: CR XR HIP LT 2-3V W/PELVIS 07/26/2023 7:55 PM FINDINGS: Bones/joints: Status post left total hip replacement. Postoperative changes of the lower lumbar spine. Increased density noted along the SI joints bilaterally consistent with sacroiliitis. [id number] degenerative changes of the right hip. Soft tissues: No soft tissue swelling. Other findings: No evidence of complications. IMPRESSION: 1. Status post left total hip replacement. 2. No evidence of complications. 3. Increased density noted along the SI joints bilaterally consistent with sacroiliitis.
--- NOTE | 2025-01-06 16:16 | XR_ITS ---
PROCEDURE INFORMATION: Exam: XR Lumbosacral Spine Exam date and time: 01/06/2025 4:19 PM Age: 79 years old Clinical indication: Low back pain TECHNIQUE: Imaging protocol: Radiologic exam of the lumbosacral spine. Views: 2 or 3 views. Total images: 3 COMPARISON: MR LUMBAR SPINE WO CON 10/17/2022 2:18 PM FINDINGS: Bones/joints: Posterior fusion noted L4-L5 without evidence of complications. Sclerotic changes noted along the inferior aspect of L2 and superior aspect of L3. Leftward curvature of the lumbar spine. Moderate degenerative changes noted L2-L3, L3-L4. 4 mm retrolisthesis of L2 on L3 and L3 on L4. Soft tissues: Unremarkable. Gastrointestinal tract: Large amount of stool is present throughout the colon. Vasculature: Moderate atherosclerotic disease. IMPRESSION: 1. Posterior fusion noted L4-L5 without evidence of complications. 2. Moderate degenerative changes noted L2-L3, L3-L4. 3. 4 mm retrolisthesis of L2 on L3 and L3 on L4.
--- NOTE | 2025-01-06 16:16 | XR_ITS ---
PROCEDURE INFORMATION: Exam: XR Right Hip Exam date and time: 01/06/2025 4:19 PM Age: 79 years old Clinical indication: Hip pain; Left hip TECHNIQUE: Imaging protocol: Radiologic exam of the right hip. Views: 2 or 3 views hip with pelvis when performed. Total images: 2 COMPARISON: CT ABDOMEN PELVIS WO CON 01/24/2021 9:51 AM FINDINGS: Bones/joints: [id number] degenerative changes of the right hip. No evidence of acute fracture or dislocation. Sacroiliitis noted bilaterally. Postoperative changes of the lower lumbar spine. Soft tissues: Unremarkable. Vasculature: Mild atherosclerotic disease. IMPRESSION: 1. [id number] degenerative changes of the right hip. 2. No evidence of acute fracture or dislocation. 3. Sacroiliitis noted bilaterally.
[2025-01-06 16:37] LABS: MANUAL DIFFERENTIAL MANUAL DIFFERENTIAL (MANUAL DIFF)
[2025-01-06 16:57] LABS: Basophils # 0.1 K/mm3 (0-0.2); Basophils % 0.7 % (0.1-2.0); Eosinophils # 0.3 Kmm3 (0.0-0.4); Eosinophils % 3.1 % (0.1-12.0); Hematocrit 43.2 % (37.0-47.0); Hemoglobin 14.2 g/dL (12.2-16.2); Lymphocytes # 1.9 K/mm3 (0.7-4.5); Lymphocytes % 23.8 % (10-50); Mean Corpuscular HGB Conc 32.9 g/dL (31.8-35.4); Mean Corpuscular Hemoglobin 32.4 pg (27.0-31.2); Mean Corpuscular Volume 98.6 fl (81-99); Mean Platelet Volume 10.8 fl (7.4-10.4); Monocytes # 0.5 K/mm3 (0.1-1.0); Monocytes % 5.5 % (1.7-9.3); Neutrophils # 5.4 K/mm3 (1.8-7.8); Neutrophils % 66.5 % (37.0-80.0); Platelet Count 187 K/mm3 (142-424); Red Blood Count 4.38 M/mm3 (4.20-5.40); Red Cell Distribution Width 13.5 % (11.5-17.5); White Blood Count 8.1 K/mm3 (4.8-10.8)
[2025-01-06 17:48] LABS: Alanine Aminotransferase 17 U/L (12-78); Albumin Level 4.3 g/dl (3.5-5.0); Albumin/Globulin Ratio 1.7 (1.1-1.8); Alkaline Phosphatase 86 U/L (38-126); Anion Gap 11.8 mEq/L (5-15); Aspartate Amino Transferase 26 U/L (14-36); Bilirubin,Total 0.6 mg/dl (0.2-1.3); Blood Urea Nitrogen 16 mg/dl (7-17); Calcium 9.3 mg/dl (8.4-10.2); Carbon Dioxide 28 mmol/L (22.0-30.0); Chloride 107 mmol/L (98-107); Estimated Glomerular Filt Rate 81 ml/min (>60); GFR (African American) 98 ML/MIN (>60); Globulin 2.5 g/dL (1.3-3.2); Glucose 113 mg/dl (74-100); Potassium 3.8 mmoL/L (3.5-5.1); Sodium 143 mmol/L (136-145); Total Protein,Serum 6.8 g/dl (6.3-8.2)
[2025-01-06 18:36] LABS: Vitamin B12 928 pg/mL (239-931)
[2025-01-06 19:50] LABS: Eosinophils % 1 % (0-3); Lymphocytes % 28 % (10-50); Monocytes % 8 % (2-9); Neutrophils % 63 % (42-76); Total Cells Counted 100
[2025-01-06 19:51] LABS: Platelet Estimate Normal; RBC Morphology Normal
== END 2025-01-06 23:59 | disposition home or self-care (01) ==
LOC: LAB 16:11
PROVIDERS: PCP Internal Medicine; Visit Provider Specialist
DX: I73.9 Peripheral vascular disease, unspecified (principal); M43.26 Fusion of spine, lumbar region; M51.16 Intervertebral disc disorders with radiculopathy, lumbar region; M43.16 Spondylolisthesis, lumbar region; M46.1 Sacroiliitis, not elsewhere classified; M16.9 Osteoarthritis of hip, unspecified; R53.1 Weakness; Z96.642 Presence of left artificial hip joint
CPT/HCPCS: 36415; 72100; 73502; 80053; 82607; 82746; 83655; 85007; 85014; 85018; 85048; 85049

== ENCOUNTER 2025-01-10 10:47 | Outpatient (CLI) | payer MEDICARE, SELFPAY ==
--- OUTSIDE RECORDS SUMMARY | 2024-11-08 17:30 | XMS_ITS ---
Author Organization [facility] FISH Address [address] [place] [address] Care Team Providers Care Software Testing Specialist Name Role Phone Khadar Quintana Primary Care Provider Migration, Provider Unavailable Unavailable Allergies Allergen (clinical drug ingredient) Drug/Non Drug Allergy documented on EMR Reaction Allergy Type Onset Date Status ALL TAPE- EXCEPT PAPER TAPE (uncoded) rash Allergy Active IV DYE (uncoded) rash Allergy Act etelvina cephalexin Cephalexin tachypnea, hives Drug Allergy Active chlorhexidine Hibiclens rash Drug Allergy Act etelvina REASON FOR VISIT [facility] Conversion Encounter Medications Medication SIG (Take, Route, Frequency, Duration) Notes Start Date End Date Status traMADol HCl 50 MG 1 tab(s) orally thre e times daily as needed for pain for 30 days 03/11/2024 Active clonazePAM 1 MG 1 tab(s) orally 2 times daily for 30 day(s) 04/30/2024 Active hydrOXYzine Pamoate 25 MG 1 cap(s) orally 4 times a day for 14 days 05/19/2024 Active Gabapentin 100 MG 1 cap(s) orally 1 time a day for pain for 30 days 05/05/2024 Active Atorvastatin Calcium 20 MG 1 tab(s) orally once a day for 90 Active Triamcinolone Acetonide 0.1 % 1 lupe applied topically 2 times a day for 7 days 08/02/2023 Active Furosemide 20 MG 1 tab(s) orally once a day as needed for swelling for 30 days 10/04/2022 Active Symbicort 160-4.5 MCG/ACT 2 puff(s) inhaled 2 times a day for 30 day(s) Active Lisinopril 10 MG 1 tab(s) orally 2 times a day for 90 days 07/11/2022 Active POTASSIUM CHLORIDE ([id number] M20) 20 MEQ TAKE 1 TABLET BY MOUTH ONCE DAILY FOR 90 DAYS for 90 *Please review for potential replacement for e-prescription and drug interaction check* Active Fluticasone Propionate 50 MCG/ACT 1 spray(s) in each nostril once a day Active SYRINGE 3CC 22G 1 - INTRAMUSCULARLY ONCE A MONTH for 30 DAYS *Please review for potential replacement for e-prescription and drug interaction check* 03/22/2018 Active Mirtazapine 15 MG 1 tab(s) orally once a day (at bedtime) Active Melatonin 5 MG 1 cap(s) orally once a day (at bedtime) Active Encounters Encounter Location Date Provider Diagnosis [facility] [address] [facility] [address] [place] [address] 11/08/2024 Provider Migration MONI (generalized anxiety disorder) F41.1 Assessments Encounter Date Diagnosis (ICD Code) Assessment Notes Treatment Notes Treatment Clinical Notes Section Notes 11/08/2024 MONI (generalized anxiety disorder) (ICD-10 - F41.1) Plan Of Treatment Medication Medication Name Sig Start Date Stop Date Notes hydrOXYzine Pamoate 25 MG 1 cap(s) orall y 4 times a day for 14 days 05/19/2024 Progress Notes * Samara HAYWARDDOB:1945 (79 yo F)Acc No.[id number]:11/08/2024 Patient: Samara CASTILLO Provider: Robles andino Migration :1945 A ge:79 Y S ex:Female Date:11/08/2024 Address:[facility] [address] [place], [id number] Pcp:Khadar Quintana Subjective: * Chief Complaints: * [...] times a day , Taking POTASSIUM CHLORIDE ([id number] M20) 20 MEQ TABLET, EXTENDED RELEASE TAKE [...] Electronic signature of Waldemar deluca Migration on 01/10/2025 at 10:53 AM EDT Sign off status: Pending * Provider: Robles andino Migration Date: 0 11/08/2024 Generated for Rona robison/[place]/Sandy on: 0 01/10/2025 10:53 AM EDT
--- OUTSIDE RECORDS SUMMARY | 2025-01-10 10:50 | XMS_ITS | Data Portability ---
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 English for spinal cord submitted trial, prior surgical history includes lumbar fusion in 2002. This was performed in [place]. Injection therapy in the past at the [place] [facility] with short-term benefit. No prior spinal cord stimulator trial. No prior spinal cord stimulator implant. Denies any infectious history. She also has chronic vascular insufficiency causing leg pain. Anticoagulants: None PMHx: Hypertension, hyperlipidemia anxiety, vascular insufficiency INJ Hx: LISA's PSHx/Surgical Evaluation: Prior lumbar fusion, not a candidate for further back surgery, referred by Dr. English for spinal cord stimulator trial IMAGING: MRI lumbar spine 02/2024 Multilevel lumbar fusion, no disc herniation, severe degeneration and adjacent segment spondylosis The above image findings were discussed with the patient. Current medications include Klonopin, tramadol. The patient feels that they receive adequate analgesia and activity improvement with the medication. The patient denies side effects from the medications. UDS was not obtained. ORT, PHQ-9 and SHAD were reviewed today. GROVER report was reviewed today and is appropriate. Based upon the above I would consider the patient to be High risk for opioid therapy due to benzodiazepine use. PT The patient completed over six weeks of physical therapy in the past without benefit for their pain ASSESSMENT/PLAN This is a 79-year-old female with chronic low back pain Presentation is consistent with lumbar postlaminectomy syndrome, not a further surgical candidate, failed to derive significant benefit from LISA. We will proceed with spinal cord stimulator trial. Will refer her implant back to Dr. English. Thoracic MRI to rule out stenosis for lead placement. External records were reviewed and discussed as above, including imaging, clinical notes, and relevant labs. Much of this encounter is an electronic meat selector/santillan slation of spoken language to printed text. The electronic translation of spoken language may permit erroneous or at times nonsensical words of phrases to be inadvertently transcribed; Although I have reviewed the note for such errors, some may still exist. Not available 05/12/2024 16:43:12 09/04/2024 09/04/2024 Interval Hx: Ms. Hayward follows up with low back pain. Pain radiates to left hip and right leg She was last seen in clinic 05/2023. SCS trial was ordered at that time. She declined to proceed at that time due to other ongoing health issues. She feels pain has reached a point that she needs to address it as pain is interfering with ability to perform ADLs. She also continues to report bilateral leg swelling due to 'circulation issues'. She has seen cardiology with no definitive answers. She is frustrated with this, wants something to manage swelling and pain. She reports she is working with a new PCP, has not discussed with them yet. Continues tramadol for pain. Continues home exercises daily. Pain History: She is referred by Dr. English for spinal cord submitted trial, prior surgical history includes lumbar fusion in 2002. This was performed in [place]. Injection therapy in the past at the [facility] pain clinic with short-term benefit. No prior spinal cord stimulator trial. No prior spinal cord stimulator implant. Denies any infectious history. She also has chronic vascular insufficiency causing leg pain. Past Medical History: Hypertension, hyperlipidemia anxiety, vascular insufficiency Imaging: MRI lumbar spine 02/2024 Multilevel lumbar fusion, no disc herniation, severe degeneration and adjacent segment spondylosis The above image findings were discussed with the patient. Surgical evaluation/ history: Prior lumbar fusion, not a candidate for further back surgery, referred by Dr. English for spinal cord stimulator trial Conservative Treatments: Patient has failed conservative measures for greater than 6 weeks including physical therapy/chiropract ic care/spinal manipulation, a monitored home exercise program, and/or NSAIDs within the last six months. Interventional treatment history: LISA's Previous analgesics: Current analgesics: Klonopin, tramadol Compliance Monitoring: The patient feels that they receive inadequate analgesia and activity improvement with the medication. The patient denies side effects from the medications. UDS was not obtained. ORT, PHQ-9 and SHAD were reviewed today. GROVER report was reviewed today and is appropriate. Based upon the above I would consider the patient to be High risk for opioid therapy due to benzodiazepine use Anticoagulant/Anti platelet Medications: None ASSESSMENT/PLAN This is a 79-year-old female with chronic low back and leg pain. She was evaluated by the physician last visit, presentation is consistent with lumbar postlaminectomy syndrome. As she is not a surgical candidate and has failed injection options in addition to medication management and HEP, SCS trial was recommended. This was again discussed today. The recommended procedure is discussed with the patient in detail. Questions related to the procedure are answered. She is agreeable. Thoracic MRI to rule out stenosis for lead placement. Will refer her implant back to Dr. English. We had a long discussion regarding low back, leg pain, and vascular insufficiency. She understands she should follow up with her PCP regarding vascular issues. We will plan to follow up for lead pull, she may contact the clinic for sooner follow up if needed. Not available 09/04/2024 16:23:20 Plan of Treatment Reminders Order Date Submit Date Provider Last Modified By Organization Details Last Modified Time Details Appointments None recorded. Lab HbA1c (hemoglobi n A1c), blood 2024 025 [facility], [facility], [address] [place] [address], [address], 5 16:08:12 methicilli n resistant staphyloco ccus aureus, culture, nasal 2024 025 [email or web address] [facility], [facility], [address] [place] [address], [address], 5 16:08:12 HbA1c (hemoglobi n A1c), blood 2023 024 [email or web address] [facility], [facility], [address] [place] [address], [place], [address], 4 10:41:07 methicilli n resistant staphyloco ccus aureus, culture, nasal 2023 024 [email or web address] [facility], [facility], [address] [place] [address], [place], [address], 4 07:22:[address] referral - Please eval for spinal cord stimulator . patient is requesting an in-person consult. please contact with any issues! Thank you! 2024 Cameron [email or web address] [facility], [facility], [place], [address], 5 14:20:[address] referral 2023 024 [email or web address] [facility], [facility] [address], [place], [address], 4 10:40:08 Procedures spinal cord stimulator trial (PROC) - SCS Trial1.) Psych: [facility] - referred . ) Clearances : none3.) Hold Meds: none4.) Labs: A1C, MRSA [+], CBC [09/2024]* VANCO*MRI Tspine [pending scheduling ] 2024 025 [email or web address] Not available 5 15:23:28 remote therapeuti c monitoring to monitor musculoske letal system (PROC) 2024 025 [email or web address] Not available 5 16:23:42 remote therapeuti c monitoring to monitor musculoske letal system (PROC) 2023 024 [email or web address] Not available 4 08:57:18 spinal cord stimulator trial (PROC) 2023 024 [email or web address] Not available 4 10:40:59 Surgeries None recorded. Imaging MRI, thoracic spine, w/o contrast - Spinal Cord Stimulator Workup, please evaluate patency of thoracic canal for placement of percutaneo us stimulator lead, entry point T12/L1, terminatio n of tip likely T7 superior endplate [address], [address], [address], [place], [address], 5 09:03:07 MRI, thoracic spine, w/o contrast - Spinal Cord Stimulator Workup, please evaluate patency of thoracic canal for placement of percutaneo us stimulator lead, entry point T12/L1, terminatio n of tip likely T7 superior endplate [address] ([facility]), [address], [place], [address], 4 10:14:33 Medication Orders Hibiclens 4 % topical liquid [email or web address] [facility], [facility] [place], [address], 5 16:23:30 Hibiclens 4 % topical liquid 2023 025 [facility], [address] [place], [address], 5 15:12:39 Patient TargetsNo targets recorded. Patient Instructions Encounter Date Encounter Id Patient Instructions Last Modified By Organization Details Last Modified Time 05/12/2024 [id number] behavioral healt h screen* [email or web address] Not available 05/15/2024 11:30:55 Education and training for patient self-management by a qualified, nonphysician health manager medicare marketing using a standardized curriculum, [id number] with the patient; individual patient* [email or web address] Not available 05/15/2024 11:31:26 spinal cord stimualtor trial information Not available 05/12/2024 16:43:57 09/04/2024 [id number] Education and training for patient self-management by a qualified, nonphysician health manager medicare marketing using a standardized curriculum, [id number] with the patient; individual patient* [email or web address] Not available 10/08/2024 07:42:35 spinal cord stimualtor trial information [email or web address] Not available 09/04/2024 16:23:30 behavioral healt h screen* [email or web address] Not available 10/08/2024 07:42:35 Reason for Referral Psychologist Referral for Ana mbar post-laminectomy syndrome Psychology evaluation for SCS Referring Physician: Oscar Azar, Pain Management, Encounter Date: 05/12/2024 Psychologist Referral for Ana mbar post-laminectomy syndrome Please eval for spinal cord stimulator. patient is requesting an in-person consult. please contact with any issues! Thank you! Referring Physician: Radha Hester Pain Management, Encounter Date: 09/04/2024 Results Created Date Observation Date Name Description Value Unit Range Abnormal Flag Note LastModifiedBy Organization Detail LastModifiedTime Result Notes None recorded. Problems Name Problem SNOMED Code Status Onset Date Resolution Date Notes Provider Name and Address Organization Details Recorded Time Lumbar spondylosis 962649207 Active 2023 Madeline Lagace null, [place] - [facility] 4 15:55:35 Chronic pain 61798379 Active 2023 Madeline Lagace null, [place] - [facility] 4 15:55:35 Lumbar radiculopathy 147072681 Active 2023 Madeline Lagace null, [place] - [facility] 4 15:55:35 Overweight 043367985 Active 2023 Madeline Lagace null, [place] - [facility] 4 15:55:37 Lumbar post-laminecto my syndrome 249853395 Active 2023 Madeline Lagace null, [place] - [facility] 4 16:32:20 Problem Notes None recorded. Procedures Surgical History Date Name Laterality Status Provider Name and Address Organization Details Recorded Time Appendectomy completed Tiffani Alvarado [place] - [facility] 05/08/2024 09:20:54 Carpal tunnel surgery completed Tiffani ZIMMERMAN - [facility] 05/08/2024 09:21:31 complete repair of rotator cuff completed Tiffani ZIMMERMAN - [facility] 05/08/2024 09:22:03 Hysterectomy completed Tiffani ZIMMERMAN - [facility] 05/08/2024 09:22:19 procedure on gallbladder completed Tiffani ZIMMERMAN - [facility] 05/08/2024 09:22:29 total replacement of hip completed Tiffani ZIMMERMAN - [facility] 05/08/2024 09:22:50 Imaging Results None recorded. Procedure Notes None recorded. Medical Equipment None Reported. Allergies Allergen ID Allergen Name Allergen Category Reaction Reaction Severity Criticality Documentation Date Start Date Code Code System Note Provider Name and Address Organization Details Recorded Time [id number] Bactroban medicatio n Not available Not available Not available 04/15/2024 98314 1 RxNorm Nayeli noemier ELSIE gamboa - [facility] 4 13:27:23 724957 Betadine medicatio n Not available Not available Not available 04/15/2024 64182 0 RxNorm Nayeli ELSIE dia - [facility] 4 13:27:29 544305 Keflex medicatio n Not available Not available Not available 04/15/2024 18176 7 RxNorm Nayeli ELSIE dia - [facility] 4 13:29:16 382652 nickel environme nt Not available Not available Not available 04/15/2024 65416 29 RxNorm Nayeli noemier null, ELSIE - [facility] 4 13:29:21 Medications Name Sig Start Date Stop Date Status Note LastModified by Organization Details LastModified Time doxycycline hyclate 100 mg capsule TAKE 1 CAPSULE BY MOUTH TWICE DAILY FOR 10 DAYS 05/12 completed Not Available Not Available Not Available atorvastati n 20 mg tablet TAKE [...] No t Available nystatin 100,000 unit/gram topical ointment APPLY TOPICALLY TO AFFECTED AREA THREE TIMES DAILY NEEDED FOR VAGINAL IRRITATIO N 05/12 completed Not Available Not Available Not Available metoprolol succinate ER 50 mg tablet,exte nded release 24 hr TAKE 1 TABLET BY MOUTH ONCE DAILY 09/04 completed Not Available Not Available Not Available phenazopyri dine 200 mg tablet TAKE 1 TABLET BY MOUTH THREE TIMES DAILY(AFT ER MEALS) NEEDED FOR BURNING WITH URINATION FOR 3 DAYS 05/12 completed Not Available Not Available Not Available lisinopril 20 mg tablet TAKE 1 & 1/2 (ONE & ONE-HALF) TABLETS BY MOUTH IN THE MORNING AND 1 TABLET IN THE EVENING 09/04 completed Not Available Not Available Not Available prednisone 20 mg tablet TAKE 3 TABLETS BY MOUTH ONCE DAILY FOR 5 DAYS 05/12 completed Not Available Not Available Not Available dexamethaso ne 6 mg tablet TAKE 1 TABLET BY MOUTH ONCE DAILY 05/12 completed Not Available Not Available Not Available clonazepam 1 mg tablet TAKE 1 TABLET BY MOUTH TWICE DAILY TAKE 30 MINUTES BEFORE BEDTIME active Not Available Not Available No t Available clobetasol 0.05 % topical cream APPLY TOPICALLY TO AFFECTED AREA EVERY DAY AT BEDTIME 05/12 completed Not Available Not Available Not Available ciprofloxac in 250 mg tablet TAKE [...] MOUTH EVERY 12 HOURS FOR 7 DAYS 09/04 completed Not Available Not Available Not Available tramadol 50 mg tablet TAKE 1 TABLET BY MOUTH THREE TIMES DAILY NEEDED FOR PAIN active Not Available Not Available No t Available triamcinolo ne acetonide 0.1 % topical cream active Not Available Not Available Not Available potassium chloride ER 20 mEq tablet,exte nded release(par t/cryst) TAKE 1 TABLET BY MOUTH ONCE DAILY active Not Available Not Available No t Available benzonatate 100 mg capsule 05/12 completed Not Available Not Available Not Available pantoprazol e 40 mg tablet,mason yed release active Not Available Not Available Not Available triamcinolo ne acetonide 0.1 % topical ointment APPLY TOPICALLY TO AFFECTED AREA TWICE A DAY FOR 7 DAYS 05/12 completed Not Available Not Available Not Available lisinopril 10 mg tablet TAKE 1 TABLET BY MOUTH TWICE DAILY active Not Available Not Available No t Available prednisone 50 mg tablet TAKE 1 TABLET BY MOUTH ONCE DAILY FOR 3 DAYS 05/12 completed Not Available Not Available Not Available buspirone 7.5 mg tablet TAKE 1 TABLET BY MOUTH TWICE DAILY 05/12 completed Not Available Not Available Not Available hydroxyzine HCl 25 mg tablet TAKE 1 TABLET BY MOUTH EVERY 6 HOURS NEEDED 09/04 completed Not Available Not Available Not Available mupirocin 2 % topical ointment APPLY OINTMENT TOPICALLY THREE TIMES DAILY FOR 5 DAYS 05/12 completed Not Available Not Available Not Available furosemide 20 mg tablet TAKE 1 TABLET BY MOUTH ONCE DAILY FOR SWELLING 09/04 completed Not Available Not Available Not Available mirtazapine 15 mg tablet TAKE 1 TABLET BY MOUTH ONCE DAILY AT BEDTIME 05/12 completed Not Available Not Available Not Available gabapentin 100 mg capsule TAKE 1 CAPSULE BY MOUTH ONCE DAILY FOR PAIN FOR 30 DAYS 05/12 completed Not Available Not Available Not Available azelastine 137 mcg (0.1 %) nasal spray USE 2 SPRAY(S) IN EACH NOSTRIL AT BEDTIME NIGHTLY active Not Available Not Available No t Available albuterol sulfate HFA 90 mcg/actuati on aerosol inhaler INHALE 2 PUFFS BY MOUTH EVERY 6 HOURS NEEDED FOR SHORTNESS OF BREATH OR WHEEZING active Not Available Not Available No t Available ondansetron 4 mg disintegrat ing tablet DISSOLVE 1 TABLET IN MOUTH EVERY 8 HOURS NEEDED FOR NAUSEA 05/12 completed Not Available Not Available Not Available fluticasone propionate 50 mcg/actuati on nasal spray,suspe nsion USE 2 SPRAY(S) IN EACH NOSTRIL ONCE DAILY active Not Available Not Available No t Available Hibiclens 4 % topical liquid Wash back and gluteal region with Hibiclens soap the night before and morning of procedure 2024 active 0 RF Not Available Not Available Not Avai lable hydroxyzine pamoate 25 mg capsule active Not Available Not Available N ot Available Premarin 0.625 mg/gram vaginal cream INSERT 1 GRAM VAGINALLY EVERY MORNING 05/12 completed Not Available Not Available Not Available escitalopra m 5 mg tablet TAKE 1 TABLET BY MOUTH ONCE DAILY 05/12 completed Not Available Not Available Not Available nitrofurant oin monohydrate /macrocryst als 100 mg capsule TAKE 1 CAPSULE BY MOUTH TWICE DAILY FOR 7 DAYS WITH FOOD 05/12 completed Not Available Not Available Not Available quetiapine 50 mg tablet TAKE 1 TABLET BY MOUTH AT BEDTIME NIGHTLY 05/12 completed Not Available Not Available Not Available Breyna 160 mcg-4.5 mcg/actuati on HFA aerosol inhaler INHALE 2 PUFFS BY MOUTH TWICE DAILY active Not Available Not Available No t Available Vitals Date Recorded Body height Body mass index (BMI) Body weight Heart rate Oxygen saturation Oxygen saturation in Arterial blood by Pulse oximetry Systolic blood pressure Diastolic blood pressure Provider Name and Address Organization Details Last Updated DateTime 5 154.94 cm 30.2 kg/m2 19502.7 8 g 76 /min 96 % 96 % 138 mm[Hg] 71 mm[Hg] Fausto Kaye [facility] 5 15:11:26 Date Recorded Body height Body mass index (BMI) Body weight Heart rate Oxygen saturation Oxygen saturation in Arterial blood by Pulse oximetry Systolic blood pressure Diastolic blood pressure Provider Name and Address Organization Details Last Updated DateTime 4 154.94 cm 30.2 kg/m2 68934.7 8 g 79 /min 96 % 96 % 125 mm[Hg] 76 mm[Hg] Madeline Henry [facility] 4 15:57:10 Social History Question Answer Notes LastModified by Organizat ion Details LastModified Time Tobacco Smoking Status Never Smoker Tiffani gamboa [facility] 05/08/2024 09:20:39 Do You Have An Advance Directive? Yes Information not available 05/12/2024 What Type Of Diet Are You Following? REGULAR Information not available 05/12/2024 What Is The Highest Grade Or Level Of School You Have Completed Or The Highest Degree You Have Received? 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 Yes Information not available 05/12/2024 What Was The Date Of Your Most Recent Tobacco Screening? 05/12/2024 Information not available 05/12/2024 What Is Your Relationship Status? Information not available 05/12/2024 Sex: Unknown Functional Status Question Answer Note LastModified by Organizat ion Details LastModified Time Do you use any illicit or recreational drugs? No Information not available 05/08/2024 What is your level of alcohol consumption? None Information not available 05/08/2024 Are you currently employed? No Information not available 05/12/2024 What is your exercise level? None Information not available 05/12/2024 Mental Status None recorded. Family History Relationship Description Onset Age of this Age Resolved Age Notes LastModified by Organization Details LastModified Time Mother Heart disease [email or web address] Not available 2023 09:18:54 Mother Essential hypertension [email or web address] Not available 10/2023 09:19:49 Mother Rheumatoid arthritis [email or web address] Not available 2023 09:20:02 Medical History Condition Response Bipolar Disease N Coronary Artery Disease N Seizure Disorder N Gout N Thyroid Disease N Atrial Fibrillation N Head Trauma/Injury N Hernia N Depression N COPD N Anxiety Disorder N Acid Reflux (GERD) N Cancer N Stroke N Skin Disorder N High Cholesterol N Liver Disease Y Rheumatoid Arthritis N Fibromyalgia N Headaches N Kidney Disease N Autoimmune Disease N Osteoarthritis N Neurosurgery N DVT N Peptic Ulcer Disease N Anemia N Heart Attack (OR) N Diabetes N Cardiomyopathy N Bleeding Disorder N CHF N AIDS/HIV N Inflammatory Bowel Disease N Dementia N Asthma Y Substance Abuse N Sleep Apnea Y Hepatitis Y Heart Disease N Pulmonary Embolism N Chronic Low Back Pain Y Hypertension N Osteoporosis N Gynecological HistoryNo gynecological history recorded. Obstetrics History GPAL:G 0 P 0 0 0 0 Past Encounters Encounter ID Performer Location Encounter Start Date Encounter Closed Date Diagnosis/Indication Diagnosis SNOMED-CT Code Diagnosis ICD10 Code Diagnosis Note [id number] [facility] [address] [place] [address] 05/12/2024 14:25:01 05/12/2024 17:28:44 Lumbar spondylosis 747859198 M47.816 Lumbar radiculopathy 128 923473 M54.16 Chronic pain 54253092 G8 9.29 Lumbar post-laminectomy syndrome 134923600 M96.1 [id number] OSCAR AZAR MD [place] [address] [place] [address] 09/04/2024 14:41:19 09/04/2024 15:51:07 Lumbar radiculopathy 600460344 M54.16 Chronic pain 83101920 G8 9.29 Lumbar post-laminectomy syndrome 403876927 M96.1 Health Concerns Section Related Observation LastModified by Organization Detai ls LastModified Time None Recorded Concern Status LastModified by Organization Details LastModified Time None Recorded Advance Directives Directive Y: Payers Insurance Date Sequence Insurance Name Policy Number Policy Alexander Covered Member ID Alexander Member ID Guarantor Name 09/08/2024 1 [employer] (MEDICARE REPLACEMENT/ ADVANTAGE - PPO) Samara Hayward [id number] Samara Hayward Notes Date Note Type Note Provider Name and Address Organization Details Recorded Time 05/12/2024 text/html Low back painReported bypatient.Onset:da te of onset: (1999) Location:midline; buttock: ; radiating down the left lower extremity to the knee Duration:worse in the morning; worse during the day; worse at nighttime Context:started without cause; pt states she fell going down a hill when she was in her 40s, but isnt sure if thats what caused her pain now Quality:aching; burning; throbbing Pain IntensitySevere; current pain level: 10/10; worst pain level: 10/10 Alleviating Factors:rest; OTC medication (ibuprofen not effective); cortisone injection (2021) Aggravating Factors:standing; carrying; bending/squatting; pushing/pulling Associated Symptoms:no tingling; no swelling; no popping/clicking; no bowel incontinence; no urinary retention; no urinary incontinence; no perineal paresthesia/anesth esia;weakness;numb ness; after epidural she started having pain in groin area Functional Assessment of ADLsAble to bathe/groom without assistance.;Diffic ulty completing 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 Prior Imaging:MRI (01/14/2024) Lumbar Surgery:lumbar spinal fusion:; surgery 2002 Physical Therapy:completed all recommended PT visits; complete more than 6weeks; response to therapy: made pain/symptoms worse Current Analgesics:Tramado l not effective; Gabapentin not effective Medications History:pt takes ibuprofen Adverse Reactions:No nausea; No vomiting; No itching; No respiratory depression; No sexual dysfunction;Consti pation Other Conservative Treatments:heat: effective Prior Pain Management:yes:; [facility], heating pad helps while shes using it Oswestry Disability Index (SHAD)Score/Date Completed: (05/12/2024 60) For Female Patients:Are you ? No Low back pain that radiates left side to foot , SHAD 60 PHQ 2 OSCAR AZAR MD [address] [place] [address], [phone] 05/12/2024 16:44:02 09/04/2024 text/html Low back painReported bypatient.Onset:da te of onset: (1999) Location:midline; buttock: ; radiating down the left lower extremity to the knee Duration:worse in the morning; worse during the day; worse at nighttime Context:started without cause; pt states she fell going down a hill when she was in her 40s, but isnt sure if thats what caused her pain now Quality:aching; burning; throbbing Pain IntensitySevere; current pain level: 10/10; worst pain level: 10/10 Alleviating Factors:rest; OTC medication (ibuprofen not effective); cortisone injection (2021) Aggravating Factors:standing; carrying; bending/squatting; pushing/pulling Associated Symptoms:no tingling; no swelling; no popping/clicking; no bowel incontinence; no urinary retention; no urinary incontinence; no perineal paresthesia/anesth esia;weakness;numb ness; after epidural she started having pain in groin area Functional Assessment of ADLsAble to bathe/groom without assistance.;Diffic ulty completing 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 Prior Imaging:MRI (01/14/2024) Lumbar Surgery:lumbar spinal fusion:; surgery 2002 Physical Therapy:completed all recommended PT visits; complete more than 6weeks; response to therapy: made pain/symptoms worse Current Analgesics:Tramado l not effective; Gabapentin not effective Medications History:pt takes ibuprofen Adverse Reactions:No nausea; No vomiting; No itching; No respiratory depression; No sexual dysfunction;Consti pation Other Conservative Treatments:heat: effective Prior Pain Management:yes:; [facility], heating pad helps while shes using it Oswestry Disability Index (SHAD)Score/Date Completed: (05/12/2024 60) For Female Patients:Are you ? No pt states she is in pain. LEFTY BERNARDO [address] [place] [address], [phone], [facility] 09/04/2024 16:24:01 OBGyn Episode No OBEpisode recorded.
--- OUTSIDE RECORDS SUMMARY | 2025-01-10 10:50 | XMS_ITS | Data Portability ---
Author Organization MD - [place] [facility] [place] [facility] Address [address] [facility] [facility] [address] [place] [address] Care Team Providers Care Warehouse Guard Name Role Phone YARITZA MARIN Primary Care [...] dipstic k, auto 018 12/14/19 18 4 Formerly [facility] [place] [facility] With [facility], [address] [place] [address] Dr Celeste, [place], [address], 8 20:43:45 culture , urine 018 12/14/19 18 [facility], [address] [place] [address], [phone], 8 08:44:07 Referral None recorde d. Procedures None recorde d. Surgeries None recorde d. Imaging None recorde d. Medication Orders None recorde d. Patient TargetsNo targets recorded. Patient Instructions Encounter Date Encounter Id Patient Instructions Last Modified By Organization Details Last Modified Time 12/13/2017 [id number] healthy together [email or web address] Not availa ble 12/13/2017 20:43:45 Urinary Tract Infection (UTI) in Women: Care Instructions [email or web address] Not available 12/13/2017 20:43:45 learning about high blood pressure [email or web address] Not available 12/13/2017 20:43:45 kidney stone: care instructions [email or web address] Not available 12/18/2017 11:59:52 learning about diet for kidney stone prevention [email or web address] Not available 12/18/2017 11:59:52 Reason for Referral None Reported. Results Created Date Observation Date Name Description Value Unit Range Abnormal Flag Note LastModifiedBy Organization Detail LastModifiedTime 12/14/19 18 12/13/2017 urina lysis , dipst ick, auto Unknown Analyte Yellow Not Available [facility] With [address]este, [place], [address], 12/13/2017 18:12:50 12/14/19 18 12/13/2017 urina lysis , dipst ick, auto Unknown Analyte Clear Not Available [facility] With [address] Celeste, [place], [address], 12/13/2017 18:12:50 12/14/19 18 12/13/2017 urina lysis , dipst ick, auto Unknown Analyte 1.020 Not Available [facility] With [address] Celeste, [place], [address], 12/13/2017 18:12:50 12/14/19 18 12/13/2017 urina lysis , dipst ick, auto Unknown Analyte 5.0 Not Available [facility] With [address] Celeste, [place], [address], 12/13/2017 18:12:50 12/14/19 18 12/13/2017 urina lysis , dipst ick, auto Unknown Analyte 500 Ruddy/ul (++) Not Available [facility] Extended Services With [address] [place], [address], 12/13/2017 18:12:50 12/14/19 18 12/13/2017 urina lysis , dipst ick, auto Unknown Analyte Negati ve Not Available [facility] Services [place] [address] [place], [address], 12/13/2017 18:12:50 12/14/19 18 12/13/2017 urina lysis , dipst ick, auto Unknown Analyte Negtiv e Not Available [facility] With [address] [place], [address], 12/13/2017 18:12:50 12/14/19 18 12/13/2017 urina lysis , dipst ick, auto Unknown Analyte Normal Not Available [facility] With [address] [place], [address], 12/13/2017 18:12:50 12/14/19 18 12/13/2017 urina lysis , dipst ick, auto Unknown Analyte Negati ve Not Available [facility] With [address] [place], [address], 12/13/2017 18:12:50 12/14/19 18 12/13/2017 urina lysis , dipst ick, auto Unknown Analyte Normal Not Available [facility] With [address] [place], [address], 12/13/2017 18:12:50 12/14/19 18 12/13/2017 urina lysis , dipst ick, auto Unknown Analyte Negati ve Not Available [facility] Extended Services With [address] [place], [address], 12/13/2017 18:12:50 05/10/20 18 12/13/2017 urina lysis , dipst ick, auto Unknown Analyte 50 Tony/ul Not Available [facility] [place] [facility] With [address] Celeste, [place], [address], 12/13/2017 18:12:50 12/14/19 18 12/13/2017 urina lysis , dipst ick, auto Unknown Analyte Clean Catch Not Available [facility] Services With [address] Celeste, [place], [address], 12/13/2017 18:12:50 12/14/19 18 12/13/2017 urina lysis , dipst ick, auto Unknown Analyte Automa paras Not Available [facility] Extended Services With [address] Celeste, [place], [address], 12/13/2017 18:12:50 12/14/19 18 12/13/2017 cultu re, urine results [facility] e: CCUR Colle cted: 12/13 18:14 Site: Recei fawad : 12/14 09:06 URINE SCREE N(CUL TURE) FINAL 12/17 11:16 12/17 COLON Y COUNT : 10,00 0 - 100,0 00 CFU/M L Three or more isola rolo; mixed skin monique . Not Available [facility] [address] [facility], [place], [address], 12/17/2017 11:16:32 12/15/19 18 05/08/2017 CT, abdom en + pelvi s, w/o contr ast No observ ation record ed. [email or web address] Not Available 12/04 13:00:45 03/07/20 18 11/08/2017 CT, abdom en + pelvi s, w/o contr ast No observ ation record ed. BARCODE Not Available 2017 08:35:03 08/22/19 19 08/22/2018 fluor oscop y (PROC ) No observ ation record ed. [address] [facility] [place] [address] [place], [id number], 08/26/2018 07:53:35 08/29/19 19 08/29/2018 XR, abdom en, 1 view No observ ation record ed. [address] [facility] [place] [address] [place], [id number], 09/02/2018 15:41:08 09/12/19 19 09/12/2018 XR, abdom en, 1 view No observ ation record ed. [address] [facility] [place] [address] [address] [place], [id number], 09/16/2018 15:23:48 Result Notes None recorded. Problems Name Problem SNOMED Code Status Onset Date Resolution Date Notes Provider Name and Address Organization Details Recorded Time Kidney stone 45606061 Active 018 Murelene Atul [facility] 12/13/2017 18:08:39 Problem Notes None recorded. Procedures Surgical History Date Name Laterality Status Provider Name and Address Organization Details Recorded Time [facility] 12/13/2017 18:09:19 [facility] 12/13/2017 18:09:22 [facility]ste[facility] 12/13/2017 18:09:27 Carpal tunnel surgery [facility] 12/13/2017 18:09:35 Heart Surgery completed Murelene Atul [facility] 12/13/2017 18:09:43 Xcapsl ctrc rmvl cplx wo ecp completed Murelene Atul [facility] 12/13/2017 18:10:24 Imaging Results None recorded. Procedure Notes None recorded. Medical Equipment None Reported. Allergies Allergen ID Allergen Name Allergen Category Reaction Reaction Severity Criticality Documentation Date Start Date Code Code System Note Provider Name and Address Organization Details Recorded Time 923903 Keflex medicatio n Not available Not available Not available 06/30/20162013 7 RxNorm Comme nt: Creat ed By: Yany Gentile paras Date: 014 1:57: 39 PM; Not Available [facility] 6 05:28:44 357314 Iodinated contrast media (substanc e) medicatio n Not available Not available Not available 12/13/2017 32597 2004 SNOMED Bo Pollard [facility] 8 18:06:57 Medications Name Sig [...] mcg capsule Daily 2017 active Frequen cy: daily;M edicati on Descrip tion: linaclo tide; Dosage: 1; Route:o ral; refills :0 Not Available Not Available Not Available Vitals Date Recorded Body height Body mass index (BMI) Body weight Systolic blood pressure Diastolic blood pressure Provider Name and Address Organization Details Last Updated DateTime 12/13/2017 154.94 cm 34.2 kg/m2 36401.22 g 140 mm[Hg] 60 mm[Hg] Bo Atul [facility] 8 18:06:44 Social History Question Answer Notes LastModified by Organizat ion Details LastModified Time Tobacco Smoking Status Former Smoker Bo Pollard bee, [facility] 12/13/2017 18:09:02 What Was The Date Of Your Most Recent Tobacco Screening? 12/13/2017 Information n ot available 09/23/2019 Sex: Unknown Functional Status Question Answer Note LastModified by Organization D etails LastModified Time What is your level of alcohol consumption? None [email or web address] Information not available 12/13/2017 Mental Status None recorded. Family History Relationship [...] SNOMED-CT Code Diagnosis ICD10 Code Diagnosis Note [id number] JEY SAM MD [facility] [address] [facility] [address] 12/13/2017 15:35:16 12/18/2017 12:30:05 Urinary tract infectious disease 65550600 N39.0 Kidney stone 64837978 N2 0.0 Health Concerns Section Related Observation LastModified by Organization Detai ls LastModified Time None Recorded Concern Status LastModified by Organization Details LastModified Time None Recorded Advance Directives Directive None Recorded Payers Insurance Date Sequence Insurance Name Policy Number Policy Alexander Covered Member ID Alexander Member ID Guarantor Name 12/17/2017 1 [employer] - CHOICECARE (PPO) Samara [place] [id number] Samara [place] 07/10/2021 1 [employer] (MEDICARE REPLACEMENT/A DVANTAGE - PPO) Samara [place]ward [id number] Samara [place] 12/18/2017 GENERIC INSURANCE - MOVED-HOLD Samara [place]ward Notes Date Note Type Note [...] dysuria. She denies nocturia. JEY SAM MD [address] [place] [address], [address], [facility] 12/18/2017 12:01:48 OBGyn Episode No OBEpisode recorded.
--- OUTSIDE RECORDS SUMMARY | 2025-01-10 10:51 | XMS_ITS | Data Portability ---
Author Organization [facility] ADMIN Address [address] [place] [address] Care Team Providers Care Doughnut Glazier Name Role Phone YAMILETH IBRAHIM Primary Care Provider [phone] Assessment No assessment recorded. Plan of Treatment [...] repair of rectocele completed Elaine Rocha [facility] [place] 06/19/2023 11:32:42 repair of rotator cuff by suture completed Elaine ZIMMERMAN [facility] & [place] 06/19/2023 11:33:26 extraction of cataract completed Elaineher Rocha [facility] [place] 06/19/2023 11:33:39 Carpal tunnel surgery completed Elaine Aj ZIMMERMAN [facility] [place] 06/19/2023 11:33:53 Stent Placement completed Elaineher Aj DOUGLAS [facility] [place] 06/19/2023 11:34:56 procedure on gallbladder completed Elaine DOUGLAS [facility] [place] 06/19/2023 11:35:47 Appendectomy completed Elaine DOUGLAS [facility] [place] 06/19/2023 11:35:59 hysterectomy completed Elaine DOUGLAS [facility] [place] 06/19/2023 11:36:08 Imaging Results None recorded. Procedure Notes None recorded. Medical Equipment None Reported. Allergies Allergen ID Allergen Name Allergen Category Reaction Reaction Severity Criticality Documentation Date Start Date Code Code System Note Provider Name and Address Organization Details Recorded Time 464182 Keflex medicatio n Not available Not available Not available 06/18/202372758 7 RxNorm ELSIE Sheppard [facility] [place] 3 14:26:14 286771 iodine medicatio n Not available Not available Not available 06/18/2023 5933 RxNorm ELSIE Sheppard [facility] [place] 3 14:26:25 075615 Betadine medicatio n Not available Not available Not available 06/18/202365669 0 RxNorm ELSIE Sheppard [facility] [place] 3 14:26:49 952525 Hibiclens medicatio n Not available Not available Not available 06/18/2023 23250 2 RxNorm ELSIE Sheppard [facility] [place] 3 14:26:55 877344 adhesive tape environme nt,medica tion Not available Not available Not available 06/18/2023 26786 UNK ELSIE Sheppard [facility] [place] 3 14:27:03 941325 Augmentin medicatio n Not available Not available Not available 06/18/2023 20397 2 RxNorm ELSIE Sheppard [facility] [place] 3 14:27:09 Medications Name Sig Start Date [...] Updated DateTime 3 154.94 cm 34.4 kg/m2 15142.8 1 g 97.1 [degF] 70 /min 177 mm[Hg] 80 mm[Hg] Jo-Ann ZIMMERMAN [facility] [place] 14:51:11 Social History None recorded. Functional Status [...] Emphysema N Migraines N Thyroid Problems N Developmental Delay N Glaucoma N Depression N Anemia N Immune System Disorder N Constipation Y Anesthesia Complications N Heart Attack ([place]) N Anxiety Disorder Y Diabetes N Bleeding [...] Time Pneumococcal conjugate PCV 13 7 completed Elaine gamboa [facility] [place] 06/19/2023 11:40:00 Influenza, MDCK, trivalent, PF 7 completed ELSIE Sheppard [facility] [place] 06/19/2023 11:40:18 Past Encounters Encounter ID Performer Location Encounter Start Date Encounter Closed Date Diagnosis/Indication Diagnosis SNOMED-CT Code Diagnosis ICD10 Code Diagnosis Note [id number] Shahrzad Becerra MD [facility] G -[address] [address] 03/06/2023 13:55:55 03/06/2023 15:38:30 Bilateral tinnitus 0542499682 102 H93.13 patient has very bothersome tinnitus [...] Anxiety ab out body function or health 609543565 F41.8 Health Concerns Section Related Observation LastModified by Organization Detai ls LastModified Time None Recorded Concern Status LastModified by Organization Details LastModified Time None Recorded Advance Directives Directive None Recorded Payers Insurance Date Sequence Insurance Name Policy Number Policy Alexander Covered Member ID Alexander Member ID Guarantor Name 09/19/2024 1 [employer] (MEDICARE REPLACEMENT/ ADVANTAGE - PPO) Samara Hayward [id number] Notes Date Note Type Note Provider Name [...] have worked for her. She saw an materials manager in [place] (Nehal Caicedo) who wanted her to get [...] audiologists and Otolaryngologists. She reports seeing an cut roll machine offbearer in [place] and one at as well (prehaps Dr. Pena). She does report trying to wear a hearing aid however, she reports it made Sounds too loud and she immediately pulled them out of her ears and did not leave the office with the hearing aids. Shahrzad Becerra MD [address] [facility], [place], [address], [facility] [place] [facility] [place] 03/09/2023 11:00:13 OBGyn Episode No OBEpisode recorded.
--- OUTSIDE RECORDS SUMMARY | 2025-01-10 10:51 | XMS_ITS | Patient Health Record ---
Author Organization [facility] Address [address] [facility] [address] [place] [address] Care Team Providers Care Phosphoric Acid Supervisor Name Role Phone Khadar Quintana Primary Care Provider Kathleen Sanderson Unavailable [phone] Migration, Provider Unavailable Unavailable Allergies Allergen (clinical drug ingredient) Drug/Non Drug Allergy documented on EMR Reaction Allergy Type Onset Date Status ALL TAPE- EXCEPT PAPER TAPE (uncoded) rash Allergy Active IV DYE (uncoded) rash Allergy Act etelvina cephalexin Cephalexin tachypnea, hives Drug Allergy Active chlorhexidine Hibiclens rash Drug Allergy Act etelvina Results Component Value Reference Range Notes INFLUENZA A&B Reviewed date:03/27/2024 02:20:18 PM Interpretation: Performing Lab: Notes/Report: INFLUENZA A neg INFLUENZA B neg Urinalysis Reviewed date:02/29/2024 05:01:08 PM Interpretation: Performing Lab: Notes/Report: Color/Clarity yellow Leuk small Nitrite neg Urobili 0.2 Protein neg pH 5.5 Blood trace Sp. Gr. 1.025 Ketone neg Bili neg Glucose neg M-Urine Culture Reviewed date:03/04/2024 04:28:30 PM Interpretation: Performing Lab: Notes/Report: CUU ORGANISM 1: Escheric hia coli RX GONZALEZ: R- Resistant S- Susceptible I- Intermediate * Not on [facility] Formulary CUU [place] Count >100,000 RX GONZALEZ: R- Resistant S- Susceptible I- Intermediate * Not on [facility] Formulary CUU RX GONZALEZ: R- Resistant S- Susceptible I- Intermediate * [facility] CUU RX GONZALEZ: R- Resistant S- Susceptible I- Intermediate * Not on [facility] CU Escherichia coli: REACTION RX GONZALEZ: R- Resistant S- Susceptible I- Intermediate * Not on [facility] Amikacin <=8 S RX GONZALEZ: R- Resistant S- Susceptible I- Intermediate * Not on [facility] Ampicillin >16 R RX GONZALEZ: R- Resistant S- Susceptible I- Intermediate * Not on [facility] Aztreonam <=2 S RX GONZALEZ: R- Resistant S- Susceptible I- Intermediate * Not on [facility] Cefepime <=1 S RX GONZALEZ: R- Resistant S- Susceptible I- Intermediate * Not on [facility] Ceftazidime <=2 S RX GONZALEZ: R- Resistant S- Susceptible I- Intermediate * Not on [facility] Ceftriaxone <=1 S RX GONZALEZ: R- Resistant S- Susceptible I- Intermediate * Not on [facility] Ciprofloxacin 1 R RX GONZALEZ: R- Resistant S- Susceptible I- Intermediate * Not on [facility] Ertapenem <=0.25 S RX GONZALEZ: R- Resistant S- Susceptible I- Intermediate * Not on [facility] Gentamicin <=2 S RX GONZALEZ: R- Resistant S- Susceptible I- Intermediate * Not on [facility] Levofloxacin 1 I RX GONZALEZ: R- Resistant S- Susceptible I- Intermediate * Not on [facility] Meropenem <=0.5 S RX GONZALEZ: R- Resistant S- Susceptible I- Intermediate * Not on [facility] Nitrofurantoin 32 S RX GONZALEZ: R- Resistant S- Susceptible I- Intermediate * Not on [facility] Tetracycline <=2 S RX GONZALEZ: R- Resistant S- Susceptible I- Intermediate * [facility] Tobram[facility] <=2 S RX GONZALEZ: R- Resistant S- Susceptible I- Intermediate * Not on [facility] Trimethoprim/Sulfame thoxaz ole <=0.5/9.5 S RX GONZALEZ: R- Resistant S- Susceptible I- Intermediate * Not on [facility] Piperacillin/Tazobac newell 4/4 S RX GONZALEZ: R- Resistant S- Susceptible I- Intermediate * Not on [facility] CUU RX GONZALEZ: R- Resistant S- Susceptible I- Intermediate * Not on [facility] Rapid Covid Antigen Reviewed date:03/27/2024 02:20:25 PM Interpretation:Negative Performing Lab: Notes/Report: Negative Reason For Referral No Information Medications Medication SIG (Take, Route, Frequency, Duration) Notes Start Date End Date Status Triamcinolone Acetonide 0.1 % 1 lupe applied topically 2 times a day for 7 days 08/02/2023 Active Furosemide 20 MG 1 tab(s) orally once a day as needed for swelling for 30 days 10/04/2022 Active Symbicort 160-4.5 MCG/ACT 2 puff(s) inhaled 2 times a day for 30 day(s) Active traMADol HCl 50 MG 1 tab(s) orally thre e times daily as needed for pain for 30 days 03/11/2024 Active clonazePAM 1 MG 1 tab(s) orally 2 times daily for 30 day(s) 04/30/2024 Active Lisinopril 10 MG 1 tab(s) orally 2 times a day for 90 days 07/11/2022 Active POTASSIUM CHLORIDE (QTP-KZOW-TRD M20) 20 MEQ TAKE 1 TABLET BY MOUTH ONCE DAILY FOR 90 DAYS for 90 *Please review for potential replacement for e-prescription and drug interaction check* Active hydrOXYzine Pamoate 25 MG 1 cap(s) orally 4 times a day for 14 days 05/19/2024 Active Fluticasone Propionate 50 MCG/ACT 1 spray(s) in each nostril once a day Active SYRINGE 3CC 22G 1 - INTRAMUSCULARLY ONCE A MONTH for 30 DAYS *Please review for potential replacement for e-prescription and drug interaction check* 03/22/2018 Active Mirtazapine 15 MG 1 tab(s) orally once a day (at bedtime) Active Gabapentin 100 MG 1 cap(s) orally 1 time a day for pain for 30 days 05/05/2024 Active Melatonin 5 MG 1 cap(s) orally once a day (at bedtime) Active Atorvastatin Calcium 20 MG 1 tab(s) orally once a day for 90 Active Immunizations Vaccine Route Administration Date Status Comme nts Prevnar PCV-13 (Pneumococcal conjugate 13) IM Intramuscular 05/03/2017 Administered Pneumovax 23 IM Intramuscular 06/09/2020 Administered Fluzone High Dose IM Intramuscular 07/01/2019 Administered Fluzone High Dose IM Intramuscular 06/09/2020 Administered Fluzone High Dose IM Intramuscular 06/14/2022 Administered Fluzone High Dose IM Intramuscular 04/18/2023 Administered Covid Moderna Unknown 10/05/2020 Administered Covid Moderna Unknown 11/05/2020 Administered Covid Moderna Unknown 06/29/2021 Administered Social History Tobacco Use: Social History Observation Description Date Details (start date - stop date) Former Smoker NA - NA Smoking: Question Answer Notes Are you a: former smoker How long has it been since you last smoked? > 10 years Section Notes: Lives at home with her husba nd. Lives at home with her husba nd. Lives at home with her husba nd. Lives at home with her husba nd. Lives at home with her husba nd. Lives at home with her husba nd. Lives at home with her husba nd. Lives at home with her husba nd. Lives at home with her husba nd. Lives at home with her husba nd. Lives at home with her husba nd. Lives at home with her husba nd. Lives at home with her husba nd. Lives at home with her husba nd. Lives at home with her husba nd. Lives at home with her husba nd. Lives at home with her husba nd. Lives at home with her husba nd. Lives at home with her husba nd. Lives at home with her husba nd. Lives at home with her husba nd. Lives at home with her husba nd. Lives at home with her husba nd. Lives at home with her husba nd. Lives at home with her husba nd. Lives at home with her husba nd. Lives at home with her husba nd. Lives at home with her husba nd. Lives at home with her husba nd. Lives at home with her husba nd. Lives at home with her husba nd. Lives at home with her husba nd. Lives at home with her husba nd. Lives at home with her husba nd. Lives at home with her husba nd. Lives at home with her husba nd. Lives at home with her husba nd. Lives at home with her husba nd. Lives at home with her husba nd. Lives at home with her husba nd. Lives at home with her husba nd. Lives at home with her husba nd. Lives at home with her husba nd. Lives at home with her husba nd. Lives at home with her husba nd. Lives at home with her husba nd. Lives at home with her husba nd. Lives at home with her husba nd. Lives at home with her husba nd. 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) Active confirmed Problem 87872470 Paresthesia of s kin (R20.2) Active confirmed Problem 829986112 Depression with anxiety (F41.8) Active confirmed Problem 72908963 Anxiety (F41.9) Active confirmed Problem 58340936 Vitamin D defici ency (E55.9) Active confirmed Problem 92637709 Essential hypertension (I10) Active confirmed Problem 712778033 Diverticulitis (K57.92) Active confirmed Problem 98095926 Constipation by delayed colonic transit (K59.01) Active confirmed Problem 242762902 COPD exacerbatio n (J44.1) Active confirmed Problem Burning with urination (R30.0) Active confirmed Problem 244629123 BMI 33.0-33.9,ad ult (Z68.33) Active confirmed Problem 79806240 Other chronic pa in (G89.29) Active confirmed Problem 58928518 Senile debility (R54) Active confirmed Problem 63016225 Claudication (I73.9) Active confirmed Problem 201225056 Psychophysiologi ericka insomnia (F51.04) Active confirmed Problem 26015760 Inflammation of right sacroiliac joint (M46.1) Active confirmed Problem 20547497 DDD (degenerativ e disc disease), lumbosacral (M51.37) Active confirmed Problem 75285651 Mood disorder (F39) Active confirmed Problem 42851839 LAURA (obstructive sleep apnea) (G47.33) Active confirmed Problem 35690772 Second hand smok e exposure (Z77.22) Active confirmed Problem Generalized anxiety disorder (56390828) MONI (generalized anxiety disorder) (F41.1) Active confirmed Problem 295916798 History of non a nemic vitamin B12 deficiency (Z86.39) Active confirmed Problem 43786846 Gait disturbance (R26.9) Active confirmed Problem 2382865492516 CAD in [place] (I25.10) Active confirmed Problem 878867689 Falls frequently (R29.6) Active confirmed Problem 23844969083813659 Lymphedema of left leg (I89.0) Active confirmed Problem 348329226 Nocturnal hypoxe alma (G47.34) Active confirmed Problem 12891295 Abdominal aortic aneurysm (AAA) without rupture (I71.4) Active confirmed Problem 771603693 Irritable bowel syndrome with constipation (K58.1) Active confirmed Problem 63493010 IBD (inflammator y bowel disease) (K63.89) Active confirmed Problem 124505653 Bladder prolapse , female, acquired (N81.10) Active confirmed Problem 49702217 Chronic bronchit is with productive mucopurulent cough (J41.1) Active confirmed Problem 164587959 Chronic major depressive disorder (F32.9) Active confirmed Problem 104457951 Balance problem (R26.89) Active confirmed Vital Signs Heart Rate 80 /min 05/20/2024 Temperature 98 degrees Fahrenheit 05/20/2024 Blood pressure diastolic 80 mm Hg 05/20/2024 Height 5 ft 1 in in 05/20/2024 Blood pressure systolic 138 mm Hg 05/20/2024 Weight 162 lbs 05/20/2024 BMI 30.61 kg/m2 05/20/2024 Encounters Encounter Location Date Provider Diagnosis [facility] [address] [place] [address] 02/04/2024 Kathleen Maria E [facility] [address] [place] [address] 02/04/2024 Kathleen Maria E [facility] [address] [place] [address] 02/27/2024 Kathleen Maria E [facility] [address] [place] [address] 02/29/2024 Kathleen Maria E [facility] [address] [place] [address] 02/29/2024 Kathleen Maria E [facility] [address] [place] [address] 03/03/2024 Khadar Besson [facility] [address] [place] [address] 04/08/2024 Kathleen Sanderson Left-sided chest wall pain R07.89 and Acute traumatic pain G89.11 [facility] [address] [place] [address] 04/30/2024 Khadar Besson [facility] [address] [place] [address] 05/08/2024 Kathleen Villaence [facility] [address] [facility] [place] [address] 05/08/2024 Khadar Besson [facility] [address] [place] [address] 05/19/2024 Khadar Besson [facility] [address] [place] [address] 05/23/2024 Khadar Besson [facility] [address] [place] [address] 05/08/2024 Khadar Besson Tinnitus of both ears H93.13 [facility] [address] [place] [address] 02/04/2024 Kathleen Sanderson DDD (degenerative disc disease), lumbosacral M51.37 ; Pain in right leg M79.604 ; Pain in left leg M79.605 and Varicose veins of lower leg I83.90 [facility] [address] [place] [address] 05/20/2024 Khadar Besson MONI (generalized anxiety disorder) F41.1 [facility] [address] [place] [address] 05/05/2024 Kathleen Sanderson DDD (degenerative disc disease), lumbosacral M51.37 ; Tinnitus, bilateral H93.13 ; Pain in right leg M79.604 ; Pain in left leg M79.605 ; MONI (generalized anxiety disorder) F41.1 ; Mood disorder F39 and Cognitive changes R41.89 [facility] [address] [address] 03/26/2024 Kathleen Sanderson Subacute cough R05.2 and Acute non-recurrent maxillary sinusitis J01.00 [facility] [address] [place] [address] 02/19/2024 Kathleen Sanderson DDD (degenerative disc disease), lumbosacral M51.37 ; Pain in right leg M79.604 and Pain in left leg M79.605 [facility] [address] [place] [address] 02/29/2024 Kathleen Sanderson Dysuria R30.0 [facility] [address] [facility] [address] [place] [address] 11/08/2024 Provider Migration MONI (generalized anxiety disorder) F41.1 Assessments Encounter Date Diagnosis (ICD Code) Assessment Notes Treatment Notes Treatment Clinical Notes Section Notes 02/04/2024 DDD (degenerative disc disease), lumbosacral (ICD-10 - M51.37) Requested records from Dr. English. Discussed again that her lower extremity symptoms are likely multifactorial. Has had extensive testing and intervention. Recommend very low-dose gabapentin, possible side effects and controlled substance status reviewed. Close follow-up again in 3 to 4 weeks and I will touch base with her also after I have reviewed Dr. English's consult note. 02/04/2024 Pain in right leg (ICD-10 - M79.604) 02/19/2024 DDD (degenerative disc disease), lumbosacral (ICD-10 - M51.37) Recommend resume low dose gabapentin, with caution, and will review other possibilities with Dr Quintana when he is available 02/19/2024 Pain in right leg (ICD-10 - M79.604) 02/29/2024 Dysuria (ICD-10 - R30.0) 03/26/2024 Subacute cough (ICD-10 - R05.2) 03/26/2024 Acute non-recurrent maxillary sinusitis (ICD-10 - J01.00) Discussed the etiology and expected course of acute sinusitis. Discussed the rationale for antibiotics use and the importance of completing the antibiotic prescription as prescribed. Discussed supportive care with antihistamines. Discussed the signs and symptoms of worsening infection that may indicate need for reassessment in clinic/ED. 04/08/2024 Left-sided chest wall pain (ICD-10 - R07.89) 04/08/2024 Acute traumatic pain (ICD-10 - G89.11) 05/05/2024 DDD (degenerative disc disease), lumbosacral (ICD-10 - M51.37) Discussed again that her lower extremity symptoms are likely multifactorial. Has had extensive testing and intervention. She doesn't recall taking the gabapentin I prescribed in February. Recommend trying very low-dose gabapentin again, possible side effects and controlled substance status reviewed. Close follow-up again in 3 to 4 weeks and needs MMSE/MOCA during that visit 05/08/2024 Tinnitus of both ears (ICD-10 - H93.13) The medMr. Hayward is very unclear and unsure and upset about why no one can fix his 's tinnitus. He states there are so many hospitals here with so many diagnostic test that can look in your head but nobody can figure out what is going on. We discussed the difficult nature of diagnosing and treating tinnitus. I am glad the tramadol is work for her, but I informed him that this and that was stolen cannot be replaced early and that this was clearly written down on the controlled substance contract. I told him that as soon as her time was up we would be able to refill medication and encouraged him to find a way to safeguard the tramadol from unscrupulous family members. 05/05/2024 Tinnitus, bilateral (ICD-10 - H93.13) We had another long discussion about the fact that her tinnitis is waxing and waning and clonazepam doesn't always give her relief to the point that she is resting better but that the clonazepam isn't likely causing her symptoms at this point. I encouraged her to resume mirtazepine at HS for sleep and mood. 05/20/2024 MONI (generalized anxiety disorder) (ICD-10 - F41.1) Patient is at her baseline, almost subtly histrionic about her ear ringing. Extensive workup and multiple medications. I am sorry that her daughter stole her clonazepam which seemed to help her but I will not refill early. She is aware of this. I sent hydroxyzine to local pharmacy yesterday but she was apparently unaware of this and did not pick it up to try this. She will pick it up and try it. If this is not successful we will consider another trial of another medication on . 11/08/2024 MONI (generalized anxiety disorder) (ICD-10 - F41.1) 05/05/2024 Pain in right leg (ICD-10 - M79.604) 02/19/2024 Pain in left leg (ICD-10 - M79.605) 02/04/2024 Pain in left leg (ICD-10 - M79.605) 02/04/2024 Varicose veins of lower leg (ICD-10 - I83.90) 05/05/2024 Pain in left leg (ICD-10 - M79.605) 05/05/2024 MONI (generalized anxiety disorder) (ICD-10 - F41.1) 05/05/2024 Mood disorder (ICD-10 - F39) 05/05/2024 Cognitive changes (ICD-10 - R41.89) Plan Of Treatment Pending Test Test Name Order Date X ray : Pelvis 07/16/2018 X ray : Rib Series, Left 04/08/2024 Physical Therapy 07/24/2018 Holter Monitor, 48 hour 08/02/2023 CT Scan : Abdomen and Pelvis, with and w ithout contrast 06/11/2018 CT Scan : Abdomen and Pelvis, with and w ithout contrast 06/12/2018 Ultrasound : Renal, bilateral 11/21/2021 Ultrasound : Aorta 11/20/2018 Physical Therapy : Lymphedema 12/01/2019 M-Complete Blood Count Auto Diff 020 M-Complete Blood Count Auto Diff 022 M-Urinalysis and Microscopic 09/14/2021 M-Comprehensive Metabolic Panel 09/15/19 20 M-Comprehensive Metabolic Panel 09/14/19 22 M-BNP 09/15/2019 M-Respiratory Virus Panel, PCR M-Vitamin B12 12/14/2022 M-Vitamin D 25 Hydroxy 12/14/2022 M-Vitamin D 25 Hydroxy 01/21/2020 M-COVID PCR SINGLE RAPID 09/14/2021 CBC With Platelet And Differential 08/31 Insurance Providers Payer Name Payer Address Payer Phone Subscriber Number Group Number Insured Name Patient Relationship to Insured Coverage Start Date Coverage End Date [employer] [address] [address] [place] [address] [id number] Samara Hayward Self - patient is the insured Medications Administered Medication Instructions Date of Administration Dosage Notes Cyanocobalamin/B-12 Pt's Own Medication 03/23/2018 1 mL Cyanocobalamin/B-12 Pt's Own Medication 03/29/2018 1 mL Cyanocobalamin/B-12 Pt's Own Medication 04/05/2018 1 mL Cyanocobalamin/B-12 Pt's Own Medication 04/12/2018 1 mL Cyanocobalamin/B-12 Pt's Own Medication 05/10/2018 1 mL Cyanocobalamin/B-12 Pt's Own Medication 06/08/2018 1 mL Cyanocobalamin/B-12 Pt's Own Medication 07/06/2018 1 mL Cyanocobalamin/B-12 Pt's Own Medication 08/03/2018 1 mL Cyanocobalamin/B-12 Pt's Own Medication 09/12/2018 1 mL Cyanocobalamin/B-12 Pt's Own Medication 10/11/2018 1 mL Cyanocobalamin/B-12 Pt's Own Medication 11/11/2018 1 mL Cyanocobalamin/B-12 Pt's Own Medication 12/16/2018 1 mL Cyanocobalamin/B-12 Pt's Own Medication 02/14/2019 1 mL Cyanocobalamin/B-12 Pt's Own Medication 03/21/2019 1 mL Dexamethasone 4mg Injection 04/04/2023 4 mg Dexamethasone 4mg Injection 07/09/2023 4 mg Triamcinolone Acetonide 40mg Injection 04/06/2018 1 mL Triamcinolone Acetonide 40mg Injection 2020 1 mL TRIAMCINOLONE 08/16/2022 1 mL Medical (General) History Medical History History ICD Code Arthritis IBD-D HTN recurrent uti's Anxiety Hx GI bleed- blood transfusions tinnitus COPD back pain Surgical History Surgery Date(Month/Year) Stent placement Apr 2016 lt hip total replacement 03/2019 Back surgery, Dr Catracho Arellano in [facility] 06/2003 Hospitalization History Reason Date(Month/Year) ICU- GI bleed- transfusions 09/2016 [facility] 03/2019 [facility]- Tachycardia 03/2018
--- OUTSIDE RECORDS SUMMARY | 2025-01-10 10:53 | XMS_ITS | Clinical Summary ---
Author Organization Healthcare Address [address] [id number] Care Team Providers Care Magnetic Tester Name Role Phone Kathleen Sanderson MARGARITA Primary Care Provider [phone] Allergies Active Allergy Reactions Criticality Noted Date Comments Cephalexin Unknown - Patient st ates they do not know rxn details Low 10/09/2013 Cephalosporins Other - please docum ent in the comment field Low 10/11/2021 Chlorhexidine Gluconate Unknown - Patien t states they do not know rxn details Low 07/09/2017 Iv Contrast Rash Low 10/01/2016 Povidone Iodine Unknown - Patient st ates they do not know rxn details Low 07/09/2017 Medications aspirin 81 MG EC tablet 8 Active atorvastatin (Lipitor) 20 MG tablet 1 (one) time each day. Active Azelastine HCl 0.15 % solution 1 Active azithromycin (Zithromax) 250 MG tablet TAKE 2 TABLETS BY MOUTH ON DAY 1, AND THEN TAKE 1 TABLET BY MOUTH ONCE A DAY ON DAY 2 THROUGH DAY 5 2 Active Symbicort 160-4.5 MCG/ACT inhaler Inhale 2 puffs 2 (two) times a day. 2 Active clonazePAM (KlonoPIN) 0.5 MG tablet 1 Active fluticasone (Flonase) 50 MCG/ACT nasal spray Administer 1 spray into each nostril 1 (one) time each day. 2 Active estradiol (Estrace) 1 MG tablet 7 Active levoFLOXacin (Levaquin) 250 MG tablet 1 Active lisinopril-hydr oCHLOROthiazide 20-12.5 MG tablet Take 1 tablet by mouth 1 (one) time each day. 1 Active metoprolol succinate XL (Toprol-XL) 50 MG 24 hr tablet Take 50 mg by mouth 1 (one) time each day. 2 Active sertraline (Zoloft) 25 MG tablet Take 25 mg by mouth 1 (one) time each day. 2 Active traMADol (Ultram) 50 MG tablet tramadol 50 mg tablet Two times a day 7 Active traZODone (Desyrel) 50 MG tablet 1 Active Social History Tobacco Use Types Packs/Day Years Used Date Smoking Tobacco: Former Smokeless Tobacco: Never Comments:Former light tobacc o smoker Comments Unknown Sex and Gender Information Value Date Recorded Sex Assigned at Not on file Legal Sex Female 7:50 PM EDT Gender Identity Not on file Sexual Orientation Not on file Last Filed Vital Signs Vital Sign Reading Time Taken Comments Blood Pressure 134/83 10/11/2021 2:42 PM EST Pulse 69 10/11/2021 2:42 PM EST Temperature 36.8 C (98.2 F) 09/24/2017 2:42 PM EST Respiratory Rate 16 09/24/2017 2:42 PM EST Oxygen Saturation - - Inhaled Oxygen Concentration - - Weight 85.7 kg (189 lb) 10/11/2021 2:42 PM EST Height 154.9 cm (5' 1 ) 10/11/2021 2:42 PM EST Body Mass Index 35.71 10/11/2021 2:42 PM EST Plan of Treatment Health Maintenance Due Date Last Done Comments [facility]-Bone Density Scan 1946 [facility]-Depression Screening 1946 [facility]-Hepatitis C Screening 1945 [facility]-Medicare Annual Wellness (AWV) 1945 [facility]-Infant/Child/Adol SDOH Screenings 1946 [facility]- SDOH Screenings 1964 [facility]-Adult SDOH Screenings 1964 [facility]-DTaP,Tdap,and Td Vaccine s (1 - Tdap) 1965 [facility]-Zoster Vaccines (1 of 2) 1996 [facility]-RSV Vaccine: 60+ Years o r (1 - 1-dose 75+ series) 2021 [id number] Vaccine ( season) 2024 06/29/2021, 11/05/2020, 10/05/2020 [facility]-Influenza Vaccine (Seaso n Ended) 2025 Colonoscopy Discontinued 10/03/2016 [facility]-Colorectal Cancer Screening Discontinued [facility]-Pneumococcal Vaccine: 50 + Years Completed 06/09/2020, 05/03/2017 CT Colonography Discontinued FIT-DNA Discontinued FIT Discontinued FOBT Discontinued HPV Vaccines Aged Out No longer eligi ble based on patient's age to complete this topic Sigmoidoscopy Discontinued [facility]Y-HIB Vaccines Aged Out No longer e ligible based on patient's age to complete this topic UKY-Hepatitis A Vaccines Aged Out No longer eligible based on patient's age to complete this topic UKY-IPV Vaccines Aged Out No longer e ligible based on patient's age to complete this topic UKY-Rotavirus Vaccines Aged Out No lo nger eligible based on patient's age to complete this topic Procedures Procedure Name Priority Date/Time Associated Diagnosis Comments COLONOSCOPY 10/03/2016 from Last 3 Months or Most Recently Relevant to Health Maintenance Results * COLONOSCOPY (10/03/2016) Anatomical Region Laterality Modality Endoscopy Narrative 10/03/2016 Ordered by an unspecified provider. us Historical Provider GI PROCEDURE ORDERABLES F inal Result from Last 3 Months or Most Recently Relevant to Health Maintenance Insurance [facility] MEDICARE Care Teams Magnetic Tester Relationship Specialty Start Date End Date Kathleen Sanderson APRN [address] [id number] [facility] - General 06/23/21
--- OUTSIDE RECORDS SUMMARY | 2025-01-10 10:53 | XMS_ITS | Data Portability ---
Author Organization [facility] [employer] Address [address] [place] [address] Assessment No assessment recorded. Plan of Treatment Reminders Order Date Submit Date Provider Last Modified By Organization Details Last Modified Time Details Appointments None recorded. Lab noninvasiv e colorectal cancer DNA + occult blood screening, QL, stool 2023 024 [email or web address] 3 [facility] (Cologuard Orders Only), [address], [address], [place], [address], 4 13:16:20 urinalysis , dipstick 2023 024 [facility], [address] [place] [address], [place], [address], 4 14:15:11 culture, urine 2023 024 NAHEED [facility] ([place]), [address] [place], [address], 4 01:06:52 vaginal pathogens panel, MARGOT+probe, vaginal fluid 2023 024 [email or web address] 3 [facility] ([place]), [address] [place], [address], 4 13:16:04 Referral None recorded. Procedures None recorded. Surgeries None recorded. Imaging MAMMO, screening, digital, bilateral [address] [place] [address] (Central Scheduling), [address] [place], [address], 13:41:56 DEXA [address] ([facility]), [address] [place] [address] [place], [address], 13:42:07 Medication Orders Cipro 500 mg tablet 2023 024 [facility] [place], [address], 14:15:09 Patient TargetsNo targets recorded. Patient InstructionsNo instructions recorded. Reason for Referral None Reported. Results Created Date Observation Date Name Description Value Unit Range Abnormal Flag Note LastModifiedBy Organization Detail LastModifiedTime 06/09/2006/12/2024 URINE CULTU RE, ROUTI NE urine culture, routine Final report abnormal Not Available [facility] ([facility]) [address] [facility], [place], [address], 06/12/2024 01:06:52 06/09/20 24 06/12/2024 URINE CULTU RE, ROUTI NE result 1 Escher ichia coli abnormal Cefaz antony <=4 ug/mL Cefaz antony with an ROBERTH <=16 predi cts susce ptibi lity to the oral agent s cefac cassia, cefdi leah, cefpo doxim e, cefpr ozil, cefur oxime , cepha lexin , and lorac arbef when used for thera py of uncom plica paras urina ry tract infec tions due to E. coli, Klebs iella pneum oniae , and Prote us mirab ilis. Great er than 100,0 00 colon y formi ng units per mL Not Available [facility] ([facility]) [address] [facility], [place], [address], 06/12/2024 01:06:52 06/09/20 24 06/12/2024 URINE CULTU RE, ROUTI NE antimicrobia l susceptibili ty Commen t S = Susce ptibl e; I = Inter media te; R = Resis tant P = Posit etelvina; N = Negat etelvina MICS are expre ssed in micro grams per mL Antib iotic RSLT# 1 RSLT# 2 RSLT# 3 RSLT# 4 Amoxi cilli n/Cla vulan ic Acid I Ampic illin R Cefep naveen S Ceftr iaxon e S Cefur oxime I Ertap enem S Genta micin S Imipe nem S Levof loxac in I Merop enem S Nitro furan toin S Piper acill in/Ta zobac newell S Tetra cycli ne S Tobra mycin S Trime thopr im/Gill lfa S Not Available [facility] ([facility]) [address] [facility], [place], [address], 06/12/2024 01:06:52 06/09/20 24 06/09/2024 urina lysis , dipst ick Leukocytes Small Not Available [address], [address], 06/09/2024 13:34:38 06/09/20 24 06/09/2024 urina lysis , dipst ick Nitrite negati ve Not Available [address], [address], 06/09/2024 13:34:38 06/09/20 24 06/09/2024 urina lysis , dipst ick Urobilinogen .2 Not Available [address], [address], 06/09/2024 13:34:38 06/09/20 24 06/09/2024 urina lysis , dipst ick Protein Negati ve Not Available [address], [address], 06/09/2024 13:34:38 11/04/06/09/2024 urina lysis , dipst ick pH 5.5 Not Available [address], [address], 06/09/2024 13:34:38 06/09/2006/09/2024 urina lysis , dipst ick Blood Small Not Available [address], [address], 06/09/2024 13:34:38 06/09/2006/09/2024 urina lysis , dipst ick Specific [place] 1.025 Not Available [address], [address], 06/09/2024 13:34:38 06/09/2006/09/2024 urina lysis , dipst ick Ketone Negati ve Not Available [address], [address], 06/09/2024 13:34:38 06/09/2006/09/2024 urina lysis , dipst ick Bilirubin Small Not Available [address], [address], 06/09/2024 13:34:38 06/09/2006/09/2024 urina lysis , dipst ick Glucose Negati ve Not Available [address], [address], 06/09/2024 13:34:38 06/09/20 24 06/09/2024 urina lysis , dipst ick Appearance Clear Not Available [address], [address], 06/09/2024 13:34:38 06/09/20 06/09/2024 urina lysis , dipst ick Color Yellow Not Available [address] [address] [facility], [place], [address], 06/09/2024 13:34:38 Result Notes None recorded. Problems Name Problem SNOMED Code Status Onset Date Resolution Date Notes Provider Name and Address Organization Details Recorded Time Blood in urine 75126393 Active 2023 Crispin Body MD [address] [place] [address], [address], [employer] 13:44:38 Screening mammography Active 2023 Crispin Boyd MD [address] [place] [address], [address], [employer] 13:44:40 Screening for osteoporosis Active 2023 Crispin Boyd MD [address] [place] [address], [address], [employer] 13:44:42 Screening for malignant neoplasm of colon Active 2023 Crispin Boyd MD [address] [place] [address], [address], [employer] 13:44:44 Relaxation of pelvic floor 854631752 Active 2023 Crispin Boyd MD [address] [place] [address], [address], [employer] 14:15:17 Problem Notes None recorded. Procedures Surgical History Date Name Laterality Status Provider Name and Address Organization Details Recorded Time Pessary Check completed Crispin Boyd MD [address] [place] [address], [address], [employer] 06/10/2024 08:59:35 Imaging Results None recorded. Procedure Notes None recorded. Medical Equipment None Reported. Allergies Allergen ID Allergen Name Allergen Category Reaction Reaction Severity Criticality Documentation Date Start Date Code Code System Note Provider Name and Address Organization Details Recorded Time 17872 Keflex medicatio n Not available Not available Not available 06/09/202427587 7 RxNorm Crystal Lauryn null, [employer]. 4 13:37:42 97093 Betadine medicatio n Not available Not available Not available 06/09/2024 0 RxNorm Crystal Lauryn null, [employer] 4 13:46:32 52197 Hibiclens medicatio n Not available Not available Not available 06/09/2024 80489 2 RxNorm Crystal Lauryn null, [employer] 4 13:47:09 Medications Name Sig Start Date Stop Date Status Note LastModified by Organization Details LastModified Time doxycycline hyclate 100 mg capsule TAKE 1 CAPSULE BY MOUTH TWICE DAILY FOR 10 DAYS active Not Available Not Available No t Available atorvastatin 20 mg tablet TAKE 1 TABLET BY MOUTH ONCE DAILY active Not Available Not Available No t Available ipratropium 0.5 mg-albuterol 3 mg (2.5 mg base)/3 mL nebulization soln USE 3 ML IN NEBULIZER EVERY 6 HOURS NEEDED FOR SHORTNESS OF BREATH FOR WHEEZING active Not Available Not Available No t Available trazodone 50 mg tablet TAKE 1 TABLET BY MOUTH ONCE DAILY AT BEDTIME active Not Available Not Available No t Available nystatin 100,000 unit/gram topical ointment APPLY TOPICALLY TO AFFECTED AREA THREE TIMES DAILY NEEDED FOR VAGINAL IRRITATION active Not Available Not Available N ot Available phenazopyrid ine 200 mg tablet TAKE 1 TABLET BY MOUTH THREE TIMES DAILY(AFTER MEALS) NEEDED FOR BURNING WITH URINATION FOR 3 DAYS active Not Available Not Available N ot Available lisinopril 20 mg tablet TAKE 1 & 1/2 (ONE & ONE-HALF) TABLETS BY MOUTH IN THE MORNING AND 1 TABLET IN THE EVENING active Not Available Not Available Not Available dexamethason e 6 mg tablet TAKE 1 TABLET BY MOUTH ONCE DAILY active Not Available Not Available No t Available clonazepam 1 mg tablet TAKE 1 TABLET BY MOUTH TWICE DAILY active Not Available Not Available No t Available clobetasol 0.05 % topical cream APPLY TOPICALLY TO AFFECTED AREA EVERY DAY AT BEDTIME active Not Available Not Available No t Available ciprofloxaci n 250 mg tablet TAKE 1 TABLET BY MOUTH EVERY 12 HOURS FOR 7 DAYS active Not Available Not Available N ot Available ciprofloxaci n 500 mg tablet Take 1 tablet every 12 hours by oral route for 7 days. active Not Available Not Available Not Available sulfamethoxa zole 800 mg-trimethop rim 160 mg tablet TAKE 1 TABLET BY MOUTH EVERY 12 HOURS FOR 7 DAYS active Not Available Not Available N ot Available tramadol 50 mg tablet TAKE 1 TABLET BY MOUTH THREE TIMES DAILY NEEDED FOR PAIN active Not Available Not Available No t Available potassium chloride ER 20 mEq tablet,exten ded release(part /cryst) TAKE 1 TABLET BY MOUTH ONCE DAILY active Not Available Not Available No t Available pantoprazole 40 mg tablet,delay ed release active Not Available Not Available N ot Available triamcinolon e acetonide 0.1 % topical ointment APPLY TOPICALLY TO AFFECTED AREA TWICE A DAY FOR 7 DAYS active Not Available Not Available No t Available lisinopril 10 mg tablet TAKE 1 [...] Not Available Not Available No t Available nitrofuranto in monohydrate/ macrocrystal s 100 mg capsule TAKE 1 CAPSULE BY MOUTH TWICE DAILY FOR 7 DAYS WITH FOOD active Not Available Not Available No t Available quetiapine 50 mg tablet TAKE 1 TABLET BY MOUTH AT BEDTIME NIGHTLY active Not Available Not Available No t Available Symbicort 160 mcg-4.5 mcg/actuatio n HFA aerosol inhaler INHALE 2 PUFFS BY MOUTH TWICE DAILY active Not Available Not Available No t Available Vitals Date Recorded Body height Body mass index (BMI) Body weight Heart rate Oxygen saturation Oxygen saturation in Arterial blood by Pulse oximetry Systolic blood pressure Diastolic blood pressure Provider Name and Address Organization Details Last Updated DateTime 4 154.94 cm 30 kg/m2 42286.7 5 g 72 /min 99 % 99 % 130 mm[Hg] 72 mm[Hg] Pati Combs [employer] 4 14:22:05 Social History Question Answer Notes LastModified by Organizat ion Details LastModified Time Tobacco Smoking Status Never Smoker Pati gamboa, [employer] 06/09/2024 13:30:00 What Was The Date Of Your Most Recent Tobacco Screening? 06/09/2024 [email or web address] Information not available 06/09/2024 What Is Your Relationship Status? [email or web address] Information not available 06/09/2024 Has Tobacco Cessation Counseling Been Provided? No [email or web address] Information not available 06/09/2024 Sex: Unknown Functional Status Question Answer Note LastModified by Organization D etails LastModified Time Do you or have you ever used any other forms of tobacco or nicotine? No Information not available 06/09/2024 Mental Status None recorded. Family History Nothing Reported. Medical History No medical history recorded. Gynecological History Statement/Question Response Date of Last Pap Smear Most Recent Mammogram Obstetrics History GPAL:G 0 P 0 0 0 0 Immunizations Vaccine Type Date Status Note Provider Nam e and Address Organization Details Recorded Time COVID-19, mRNA, LNP-S, PF, 100 mcg/0.5mL dose or 50 mcg/0.25mL dose 1 completed Pati Fieldzie null, [employer] 06/09/2024 13:47:52 COVID-19, mRNA, LNP-S, PF, 100 mcg/0.5mL dose or 50 mcg/0.25mL dose 1 completed Pati Gibbskenzie null, [employer] 06/09/2024 13:47:52 COVID-19, mRNA, LNP-S, PF, 100 mcg/0.5mL dose or 50 mcg/0.25mL dose 1 completed Crystal Lauryn null, [employer] 06/09/2024 13:47:52 pneumococcal polysaccharide PPV23 0 completed Crystal Lauryn null, [employer] 06/09/2024 13:47:52 Tdap 3 completed Pati Combs null, [employer] 06/09/2024 13:47:52 Pneumococcal conjugate PCV 13 7 completed Pati Revelese null, [employer] 06/09/2024 13:47:52 Influenza, high-dose, trivalent, PF 3 completed Crystal Lauryn null, [employer] 06/09/2024 13:47:52 Influenza, high-dose, trivalent, PF 8 completed Pati Combs null, [employer] 06/09/2024 13:47:52 Influenza, high-dose, trivalent, PF 0 completed Pati Combs null, [employer] 06/09/2024 13:47:52 Influenza, high-dose, trivalent, PF 9 completed Pati Combs null, [employer] 06/09/2024 13:47:52 Past Encounters Encounter ID Performer Location Encounter Start Date Encounter Closed Date Diagnosis/Indication Diagnosis SNOMED-CT Code Diagnosis ICD10 Code Diagnosis Note [id number] Crispin Boyd MD [address] [address] 06/09/2024 13:30:51 06/09/2024 14:29:09 Blood in urine 04221805 R31.9 By history the patient notes blood that she states is coming from her bladder which occurred 4 times last week. It was associated with dysuria which resolved itself spontaneou sly just 4 days ago. Urinalysis today shows 1+ leukocytes with blood present. Culture will be sent. I will treat her empiricall y in the meanwhile as [place]. She does note that she does have chronic dysuria and frequency and I feel she might benefit from a urology consultati on. She has an associated third-degr ee cystocele. Screening mammography 24 153692 Z12.31 This 71-year-ol d man with yeah there is no doing better right effusion tell me with patient has not had a mammogram in over 10 years. Monthly self breast exam strongly advised. She has no family history of breast cancer Screening for osteoporosis 144509763 Z13.820 Patient does not recall ever having had a bone density study. I have advised she take 1200 mg calcium daily along with vitamin D3. Screening for malignant neoplasm of colon 240157840 Z12.11 Patient states she had a colonoscop y more than 10 years ago but has not had any follow-up since. She declines a colonoscop y at this point. I have offered her a Cologuard instead ,noting its limitation s. Patient is agreement with this. Relaxation of pelvic floor 057219942 N81.89 On exam patient has marked atrophic vaginitis with an associated third-degr ee cystocele with apical vault prolapse. She originally stated she did not know of this but on further questionin g an attempt was made with pessary placement [address] Valdez in [place]. She was fitted today with a #4 disc pessary and was instructed to return tomorrow to make sure it stays in place and does not cause any undue difficulti es with bladder or bowel function. Health Concerns Section Related Observation LastModified by Organization Detai ls LastModified Time None Recorded Concern Status LastModified by Organization Details LastModified Time None Recorded Advance Directives Directive None Recorded Payers Insurance Date Sequence Insurance Name Policy Number Policy Alexander Covered Member ID Alexander Member ID Guarantor Name 06/09/2024 1 [employer] (MEDICARE REPLACEMENT/A DVANTAGE - PPO) Samara Hayward [id number] Samara Hayward 06/09/2024 [place]IC[place] [employer] - [facility] Samara Hayward [id number] Samara Hayward Notes Date Note Type Note Provider Name and Address Organization Details Recorded Time 06/09/2024 text/html Patient is a 79-year-old white female G2, P2 status post vaginal hysterectomy at age 40 for pelvic pain/dysmenorrhea. She is unsure if she still has her ovaries. She noted a single episode last week of bleeding while using the bathroom associated with dysuria. She had 3 more episodes over the next 2 days and after the last 1 her discomfort stopped. She has had no more symptoms since last week. She denies rectal bleeding. She has not had a colonoscopy in over 10 years. Likewise she has not had a mammogram or bone density study in over 10 years. Crispin Boyd MD [address] [place] [address], [address], [facility] [place] [facility] [employer] 06/10/2024 09:00:03 OBGyn Episode No OBEpisode recorded.
[2025-01-13 16:26] LABS: Albumin, U 23.8 % (.); Alpha-1-Globulin, U 2.4 % (.); Alpha-2-Globulin, U 13.7 % (.); Beta Globulin, U 37.2 % (.); Gamma Globulin, U 22.9 % (.); M-Spike, % Not Observed % (Not Observed); Protein,Total,Urine 21.3 mg/dL (Not Estab.)
[2025-01-14 17:51] LABS: Albumin 3.5 g/dL (2.9-4.4); Alpha-1-Globulin 0.3 g/dL (0.0-0.4); Alpha-2-Globulin 0.7 g/dL (0.4-1.0); Gamma Globulin 0.7 g/dL (0.4-1.8); Immunoglobulin A, Qn, Serum 374 mg/dL (64-422); Immunoglobulin G, Qn, Serum 767 mg/dL (586-1602); Immunoglobulin M, Qn, Serum 60 mg/dL (26-217); Protein, Total 6.1 g/dL (6.0-8.5)
== END 2025-01-10 23:59 | disposition home or self-care (01) ==
LOC: LAB 10:48
PROVIDERS: PCP Internal Medicine; Visit Provider Specialist
DX: D47.2 Monoclonal gammopathy (principal)
CPT/HCPCS: 84155; 84156; 84165; 84166

== ENCOUNTER 2025-01-29 11:56 | Emergency (ER) | payer MEDICARE, SELFPAY ==
--- OUTSIDE RECORDS SUMMARY | 2024-11-08 17:30 | XMS_ITS ---
Author Organization [facility] FISH Address [address] [place] [address] Care Team Providers Care Repairer Maintenance Building Name Role Phone Khadar Quintana Primary Care Provider Migration, Provider Unavailable Unavailable Allergies Allergen (clinical drug ingredient) Drug/Non Drug Allergy documented on EMR Reaction Allergy Type Onset Date Status ALL TAPE- EXCEPT PAPER TAPE (uncoded) rash Allergy Active IV DYE (uncoded) rash Allergy Act etelvina cephalexin Cephalexin tachypnea, hives Drug Allergy Active chlorhexidine Hibiclens rash Drug Allergy Act etelvina REASON [facility] VISIT [facility] Conversion Encounter Medications Medication SIG (Take, [...] Duration: 90 days 07/11/2022 Active POTASSIUM CHLORIDE ([id number] M20) 20 MEQ TAKE 1 TABLET BY [...] Active Encounters Encounter Location Date Provider Diagnosis [facility] FISH [address] [facility] [address] [place] [address] 11/08/2024 Provider Migration MONI (generalized anxiety disorder) [...] days 05/19/2024 Progress Notes * Samara HAYWARDDOB:1945 (79 yo F)Acc No.[id number]:11/08/2024 Patient: Samara CASTILLO Provider: Robles andino Migration :1945 A ge:79 Y S ex:Female Date:11/08/2024 Address[address] [id number] Pcp:Khadar Quintana Subjective: * Chief Complaints: * [...] times a day , Taking POTASSIUM CHLORIDE ([id number] M20) 20 MEQ TABLET, EXTENDED RELEASE TAKE [...] * Treatment: * * Electronic signature of Prov yosi Migration on 01/29/2025 at 12:07 PM EDT Sign off status: Pending * Provider: Robles andino Migration Date: 0 11/08/2024 Generated for oRna robison/Chester/Sandy on: 01/29/2025 12:07 PM EDT
[2025-01-29 12:03] VITALS: BP 164/95; PULSE 77; O2SAT 96
[2025-01-29 12:06] VITALS: BP 164/95; PULSE 87; RESP 15; TEMP 36.6; O2SAT 94; BMI 31.1
--- NOTE | 2025-01-29 12:06 | [facility].EDGENADL ---
Discharge Plan Disposition Patient Disposition: Home, Self-Care Condition: Good Prescriptions Prescriptions: New doxycycline hyclate 100 mg capsule 100 mg PO BID 10 Days Qty: 20 0RF No Action furosemide 20 mg tablet 20 mg PO DAILY Qty: 30 5RF albuterol sulfate 90 mcg/actuation HFA aerosol inhaler 2 inh inhalation Q6H PRN (Reason: shortness of breath or wheezing) 90 Days Qty: 8.5 2RF azelastine 137 mcg (0.1 %) spray,non-aerosol 2 spray intranasal HS 90 Days Qty: 30 2RF Rx Instructions: administer into each nostril fluticasone propionate [Flonase Allergy Relief] 50 mcg/actuation spray,suspension 2 spray intranasal DAILY 90 Days Qty: 16 2RF Rx Instructions: administer into each nostril ipratropium-albuterol 0.5 mg-3 mg(2.5 mg base)/3 mL solution for nebulization 3 ml inhalation Q6H PRN (Reason: shortness of breath or wheezing) Qty: 180 3RF lorazepam 0.5 mg tablet 0.5 mg PO TID Rx Instructions: Take 1/2 tablet by mouth 3 times daily as needed for nervousness and ringing in the ears betamethasone dipropionate 0.05 % cream topical ONCE Patient Comments: APPLY CREAM TOPICALLY ONCE DAILY tramadol 50 mg tablet 50 mg PO TID PRN mirtazapine 15 mg tablet 15 mg PO HS Qty: 30 2RF sennosides [senna] 8.6 mg tablet 8.6 mg PO BID PRN (Reason: Constipation) prednisone 20 mg tablet 20 mg PO BID 4 Days Qty: 8 0RF polyethylene glycol 3350 17 gram/dose powder 17 g PO DAILY PRN (Reason: constipation) Qty: 510 5RF atorvastatin 20 mg tablet 20 mg PO HS Qty: 90 1RF potassium chloride [Klor-Con M20] 20 mEq tablet,ER particles/crystals 20 meq PO DAILY Qty: 90 1RF lisinopril 10 mg tablet 10 mg PO BID Qty: 90 1RF clonazepam 1 mg tablet 1 mg PO BID PRN (Reason: Nervousness) Qty: 90 0RF Rx Instructions: 1 mg twice a day and 30 minutes before bedtime triamcinolone acetonide 0.1 % cream 1 applic topical BID PRN (Reason: itching) Qty: 453.6 0RF Referrals Follow up/Referrals: Nabeel Rios MD [Primary Care Provider, Medical] - See instructions Activity Restrictions/Add. Instructions Additional Instructions/Restrictions: I have sent in a prescription for your antibiotics to your pharmacy. Stay out of the sun or wear plenty of sunscreen or you will get severely sunburned on doxycycline. Please call [phone] to schedule your appointment with wound care. If you have any persistent new or worsening signs or symptoms follow-up with your PCP return to the ER as needed. Clinical Impressions Clinical Impression: Skin tear Instructions Patient Instructions: DI for Laceration Repair Print Language Print Language: Yakut Discharge ED Provider: Andrea Liriano General Adult HPI <LEFTY Anderson - Last Filed: 01/29/25 13:41> General Chief complaint: Wound/Laceration Stated complaint: fell over a stool on 01/27 right leg pain Time Seen by Provider: 01/29/25 12:06 History of Present Illness HPI narrative: Patient presents for evaluation of a right lower extremity injury. Patient states that she scraped her leg getting into her bed 2 days ago. She suffered a skin tear on the lateral aspect mid right calf. Initially she has been doctoring it at home however it is gotten more painful and red hence her presentation to the ER. She denies any numbness tingling loss of motor or sensory fever chills hemoptysis hematochezia melena nausea vomiting diarrhea shortness of breath. Related Data Home Medications ?Medication ?Instructions ?Recorded ?Confirmed sennosides 8.6 mg tablet (senna) 8.6 mg PO BID PRN Constipation 02/26/19 01/06/25 betamethasone dipropionate 0.05 % applic topical ONCE 01/06/25 01/06/25 topical cream lorazepam 0.5 mg tablet 0.5 mg PO TID 01/06/25 01/06/25 tramadol 50 mg tablet 50 mg PO TID PRN 01/06/25 01/06/25 Previous Rx's ?Medication ?Instructions ?Recorded furosemide 20 mg tablet 20 mg PO DAILY swelling #30 tabs 12/04/23 atorvastatin 20 mg tablet 20 mg PO HS Cholesterol #90 tabs 08/20/24 albuterol sulfate 90 mcg/actuation 2 inh inhalation Q6H PRN shortness 08/28/24 aerosol inhaler of breath or wheezing 90 days #8.5 grams azelastine 137 mcg (0.1 %) nasal 2 spray intranasal HS 90 days #30 08/28/24 spray mL fluticasone propionate 50 2 spray intranasal DAILY 90 days 08/28/24 mcg/actuation nasal #16 grams spray,suspension (Flonase Allergy Relief) ipratropium 0.5 mg-albuterol 3 mg 3 ml inhalation Q6H PRN shortness 08/28/24 (2.5 mg base)/3 mL nebulization of breath or wheezing #180 mL soln potassium chloride 20 mEq 20 meq PO DAILY #90 tabs 09/15/24 tablet,extended release(part/cryst) (Klor-Con M) mirtazapine 15 mg tablet 15 mg PO HS #30 tabs 10/09/24 triamcinolone acetonide 0.1 % 1 applic topical BID PRN itching 11/08/24 topical cream #453.6 grams prednisone 20 mg tablet 20 mg PO BID 4 days #8 tabs 11/09/24 lisinopril 10 mg tablet 10 mg PO BID #90 tabs 12/05/24 polyethylene glycol 3350 17 17 g PO DAILY PRN constipation 12/17/24 gram/dose oral powder #510 grams clonazepam 1 mg tablet 1 mg PO BID PRN Nervousness #90 01/23/25 tabs doxycycline hyclate 100 mg capsule 100 mg PO BID 10 days #20 caps 01/29/25 Allergies Allergy/AdvReac Type Severity Reaction Status Date / Time adhesive tape Allergy Severe Hives Verified 01/06/25 14:05 chlorhexidine (From Allergy Severe RASH Verified 01/06/25 14:05 Hibiclens) Iodinated Contrast Media Allergy Intermediate Unknown Verified 01/06/25 14:05 (IODINATED CONTRAST MEDIA - allergy IV DYE) reaction povidone-iodine (From Allergy Intermediate I-RASH Verified 01/06/25 14:05 BETADINE) cephalexin Allergy Unknown Unknown Verified 01/06/25 14:05 allergy reaction bismuth tribromophenate Allergy Rash Verified 01/06/25 14:05 (From Xeroform) petrolatum,white (From Allergy Rash Verified 01/06/25 14:05 Xeroform) [facility] <LEFTY Anderson - Last Filed: 01/29/25 13:41> [facility] Disclaimer: The information contained in this section may have been updated after the patient was seen, as this information can be updated by other users. Medical History Rash and nonspecific skin eruption Cystocele with prolapse stage 3 Vulvovaginal pain Vulvar lesion Meniere disease CAD (coronary artery disease) Claudication Asthma Dyspnea on exertion Cataract bilateral Sleep apnea Migraine Anxiety Osteoarthritis History of diverticulitis Edema History of anemia Foot pain, bilateral Multiple pulmonary nodules Wheezing Hypertension Dizziness Surgical History Hx of spinal fusion 2003 3rd and 4th vertebrae History of bladder repair surgery History of left hip replacement Hx of right coronary artery stent placement Hx of shoulder surgery bilateal rotator cuff repair History of carpal tunnel surgery of right wrist History of appendectomy History of cataract surgery serena Hx of cardiac cath stent x1 H/O: hysterectomy Hx of cholecystectomy Family History Mother Rheumatoid aortitis Family/Other Heart attack Social History Smoking Status: Never smoker alcohol intake: never substance use type: denies use current occupational status: retired Travel in the last 8 weeks?: None housing: house current occupational exposures/hazards: No caffeine: Yes Have you lived/traveled outside [place] in past 30 days?: No Contact w/someone who lives/traveled outside [place] past 30 days?: No Exposure to someone with infectious disease in past 14 days?: No Do you have a fever (greater than 100.4 F or 38 C)?: No Have you tested positive for COVID-19?: No Exposed to someone with COVID-19 in past 14 days?: No Do you have a sore throat?: No Do you have a cough?: No Do you have any weakness?: No Do you have any diarrhea?: No Are you experiencing any unusual bleeding?: No Do you have any muscle aches/pain?: No Do you have any abdominal pain?: No Are you experiencing loss of taste or smell?: No Other Medical History Have you received the Flu Vaccine for this season: No Have you received the Pneumonia Vaccine: Yes <LEFTY Anderson - Last Filed: 01/29/25 13:41> ROS Obtained: Yes Systems reviewed as appropriate & no additional complaints except as documented Physical Exam <LEFTY Anderson - Last Filed: 01/29/25 13:41> General General appearance: alert and in no apparent distress Respiratory Respiratory exam: Present normal lung sounds bilaterally Cardiovascular Cardiovascular exam: Present regular rate Neurological Exam Neurological exam: Present alert and oriented X3 Medical Decision Making <LEFTY Anderson - Last Filed: 01/29/25 13:41> Medical Records Medical records reviewed: Yes I reviewed the patient's medical records. Screening: Per USPSTF and CDC recommendations, given the prevalence of disease in our region, it is our hospital?s policy to screen for HIV and viral Hepatitis for all patients aged 18 and over and those with ongoing risk factors. Agustin Inquiry Pt receiving controlled substance: No Vital Signs: 01/29/25 12:03 01/29/25 12:06 01/29/25 12:51 Temperature 97.8 F Temperature Source Oral Pulse Rate 77 77 Pulse Rate [Right Radial] 87 Respiratory Rate 15 Blood Pressure 164/95 H Blood Pressure [Right Arm] 164/95 H Blood Pressure Mean 113 Blood Pressure Mean [Right Arm] 118 Blood Pressure Source Blood Pressure Source [Right Arm] Automatic Cuff Blood Pressure Position Blood Pressure Position [Right Arm] Supine 02 Sat by Pulse Oximetry 96 94 L 98 Oxygen Delivery Method Room Air 01/29/25 12:56 Temperature 98.0 F Temperature Source Oral Pulse Rate 86 Pulse Rate [Right Radial] Respiratory Rate 15 Blood Pressure 150/85 H Blood Pressure [Right Arm] Blood Pressure Mean Blood Pressure Mean [Right Arm] Blood Pressure Source Automatic Cuff Blood Pressure Source [Right Arm] Blood Pressure Position Sitting Blood Pressure Position [Right Arm] 02 Sat by Pulse Oximetry Oxygen Delivery Method Room Air Orders (Tests/Meds): ED MEDICATIONS Discontinued Medications Generic Name Dose Route Start Last Admin Trade Name Freq PRN Reason Stop Dose Admin Doxycycline Hyclate 100 mg 01/29/25 12:15 01/29/25 12:20 Doxycycline Hycl 100 Mg Tablet PO 01/29/25 12:16 100 mg ONCE ONE Administration ORDERS Category Date Time Status Tibia/fibula XR right 2 views [XR tibia fibula RT 2V] Exams 01/29/25 12:09 Completed Stat Medical Decision Narrative: In summary patient is a 79-year-old female who presents to the emergency department for evaluation of a skin tear to the right lateral calf. Patient is hemodynamically stable upon arrival, afebrile. Zickel exam is remarkable for a skin tear with a rolled back flap of skin on the right lateral calf. There is an area of erythema approximately 2 cm bordering the entire skin tear area. It does not penetrate into the subcutaneous tissue. There is no palpable bony deformity. Patient is neurovascular intact distally. There is no dependent edema noted. Patient has full range of motion and is weightbearing in the emergency department.. Differential diagnosis includes cellulitis versus skin tear versus fracture. Initial workup will be conducted with plain film x-rays. Initial interventions include doxycycline. Initial workup reviewed by me and my informal interpretation shows no acute bony abnormality prior to radiology read. Please see final read for formal interpretation. Given this the devitalized skin was removed by myself with sterile iris scissors and then Xeroform gauze was placed over the denuded area. Wound then dressed. Patient is appropriate for discharge with prescription for doxycycline with first dose given here and sun exposure precautions. I will also refer the patient to wound care for ongoing management care of her wound. Patient follow-up with PCP return the ER for any worsening signs or symptoms as needed. <Andrea Liriano MD - Last Filed: 01/29/25 14:11> Vital Signs: 01/29/25 12:03 01/29/25 12:06 01/29/25 12:51 Temperature 97.8 F Temperature Source Oral Pulse Rate 77 77 Pulse Rate [Right Radial] 87 Respiratory Rate 15 Blood Pressure 164/95 H Blood Pressure [Right Arm] 164/95 H Blood Pressure Mean 113 Blood Pressure Mean [Right Arm] 118 Blood Pressure Source Blood Pressure Source [Right Arm] Automatic Cuff Blood Pressure Position Blood Pressure Position [Right Arm] Supine 02 Sat by Pulse Oximetry 96 94 L 98 Oxygen Delivery Method Room Air 01/29/25 12:56 Temperature 98.0 F Temperature Source Oral Pulse Rate 86 Pulse Rate [Right Radial] Respiratory Rate 15 Blood Pressure 150/85 H Blood Pressure [Right Arm] Blood Pressure Mean Blood Pressure Mean [Right Arm] Blood Pressure Source Automatic Cuff Blood Pressure Source [Right Arm] Blood Pressure Position Sitting Blood Pressure Position [Right Arm] 02 Sat by Pulse Oximetry Oxygen Delivery Method Room Air Orders (Tests/Meds): ED MEDICATIONS Discontinued Medications Generic Name Dose Route Start Last Admin Trade Name Aniya PRN Reason Stop Dose Admin Doxycycline Hyclate 100 mg 01/29/25 12:15 01/29/25 12:20 Doxycycline Hycl 100 Mg Tablet PO 01/29/25 12:16 100 mg ONCE ONE Administration ORDERS Category Date Time Status Tibia/fibula XR right 2 views [XR tibia fibula RT 2V] Exams 01/29/25 12:09 Completed Stat Medical Decision Narrative: In summary patient is a 79-year-old female who presents to the emergency department for evaluation of a skin tear to the right lateral calf. Patient is hemodynamically stable upon arrival, afebrile. Zickel exam is remarkable for a skin tear with a rolled back flap of skin on the right lateral calf. There is an area of erythema approximately 2 cm bordering the entire skin tear area. It does not penetrate into the subcutaneous tissue. There is no palpable bony deformity. Patient is neurovascular intact distally. There is no dependent edema noted. Patient has full range of motion and is weightbearing in the emergency department.. Differential diagnosis includes cellulitis versus skin tear versus fracture. Initial workup will be conducted with plain film x-rays. Initial interventions include doxycycline. Initial workup reviewed by me and my informal interpretation shows no acute bony abnormality prior to radiology read. Please see final read for formal interpretation. Given this the devitalized skin was removed by myself with sterile iris scissors and then Xeroform gauze was placed over the denuded area. Wound then dressed. Patient is appropriate for discharge with prescription for doxycycline with first dose given here and sun exposure precautions. I will also refer the patient to wound care for ongoing management care of her wound. Patient follow-up with PCP return the ER for any worsening signs or symptoms as needed. I was consulted by the ANGELA, and we discussed the complexity of the problems being addressed. I approved the treatment and management plan for this patient's care in the Emergency Department, thus performing a substantive portion of the medical decision making. Andrea Liriano MD Critical Care <LEFTY Anderson - Last Filed: 01/29/25 13:41> Critical Care Time Critical Care Time: No
--- OUTSIDE RECORDS SUMMARY | 2025-01-29 12:07 | XMS_ITS | Data Portability ---
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 Procedures None recorde d. Surgeries None recorde d. Imaging None recorde d. Medication Orders None recorde d. Patient TargetsNo targets recorded. Patient Instructions Encounter Date Encounter Id Patient Instructions Last Modified By Organization Details Last Modified Time 12/13/2017 [id number] healthy together [email or web address] Not availa ble 12/13/2017 20:43:45 Urinary Tract Infection (UTI) in Women: Care Instructions [email or web address] Not available 12/13/2017 20:43:45 learning about high blood pressure [email or web address] Not available 12/13/2017 20:43:45 kidney stone: care instructions [email or web address] Not available 12/18/2017 11:59:52 learning about diet for kidney stone prevention [email or web address] Not available 12/18/2017 11:59:52 Reason for Referral None Reported. Results Created Date Observation Date Name Description Value Unit Range Abnormal Flag Note LastModifiedBy Organization Detail LastModifiedTime 12/14/19 18 12/13/2017 urina lysis , dipst ick, auto Unknown Analyte Yellow Not Available Formerly [facility] Extended Services With [address]este, [place], [address], 12/13/2017 18:12:50 12/14/19 18 12/13/2017 urina lysis , dipst ick, auto Unknown Analyte Clear Not Available Formerly [facility] Extended Services With [address]este, [place], [address], 12/13/2017 18:12:50 12/14/19 18 12/13/2017 urina lysis , dipst ick, auto Unknown Analyte 1.020 Not Available Formerly [facility] Extended Services With [address]este, [place], [address], 12/13/2017 18:12:50 12/14/19 18 12/13/2017 urina lysis , dipst ick, auto Unknown Analyte 5.0 Not Available Formerly [facility] Extended Services With [address]este, [place], [address], 12/13/2017 18:12:50 12/14/19 18 12/13/2017 urina lysis , dipst ick, auto Unknown Analyte 500 Ruddy/ul (++) Not Available [facility] Extended Services With [address] Celeste, [place], [address], 12/13/2017 18:12:50 12/14/19 18 12/13/2017 urina lysis , dipst ick, auto Unknown Analyte Negati ve Not Available [facility] Extended Services With [address] [place], [address], 12/13/2017 18:12:50 12/14/19 18 12/13/2017 urina lysis , dipst ick, auto Unknown Analyte Negtiv e Not Available [facility] Extended Services With [address] [place], [address], 12/13/2017 18:12:50 12/14/19 18 12/13/2017 urina lysis , dipst ick, auto Unknown Analyte Normal Not Available Former[facility] Extended Services With [address] [place], [address], 12/13/2017 18:12:50 12/14/19 18 12/13/2017 urina lysis , dipst ick, auto Unknown Analyte Negati ve Not Available [facility] With [address] [place], [address], 12/13/2017 18:12:50 12/14/19 18 12/13/2017 urina lysis , dipst ick, auto Unknown Analyte Normal Not Available Formerly [facility] Extended Services With [address] [place], [address], 12/13/2017 18:12:50 12/14/19 18 12/13/2017 urina lysis , dipst ick, auto Unknown Analyte Negati ve Not Available [facility] Services With [address] [place], [address], 12/13/2017 18:12:50 12/14/19 18 12/13/2017 urina lysis , dipst ick, auto Unknown Analyte 50 Tony/ul Not Available [facility] [place] Extended Services With [address]este, [place], [address], 12/13/2017 18:12:50 12/14/19 18 12/13/2017 urina lysis , dipst ick, auto Unknown Analyte Clean Catch Not Available [facility] Extended Services With [address]este, [place], [address], 12/13/2017 18:12:50 12/14/19 18 12/13/2017 urina lysis , dipst ick, auto Unknown Analyte Automa paras Not Available [facility] Extended Services With [address]este, [place], [address], 12/13/2017 18:12:50 12/14/19 18 12/13/2017 cultu re, urine results [facility] e: CCUR Colle cted: 12/13 18:14 Site: Recei fawad : 12/14 09:06 URINE SCREE N(CUL TURE) FINAL 12/17 11:16 12/17 COLON Y COUNT : 10,00 0 - 100,0 00 CFU/M L Three or more isola rolo; mixed skin monique . Not Available [facility] [address], [place], [address], 12/17/2017 11:16:32 12/15/19 18 05/08/2017 CT, abdom en + pelvi s, w/o contr ast No observ ation record ed. [email or web address] Not Available 12/04 13:00:45 03/07/20 18 11/08/2017 CT, abdom en + pelvi s, w/o contr ast No observ ation record ed. BARCODE Not Available 2017 08:35:03 08/22/19 19 08/22/2018 fluor oscop y (PROC ) No observ ation record ed. [address] [facility] [place] [address] [place], [id number], 08/26/2018 07:53:35 08/29/19 19 08/29/2018 XR, abdom en, 1 view No observ ation record ed. [address] [facility] [place] [address] [address] [place], [id number], 09/02/2018 15:41:08 09/12/19 19 09/12/2018 XR, abdom en, 1 view No observ ation record ed. [address] [facility] [place] [address] [address] [place], [id number], 09/16/2018 15:23:48 Result Notes None recorded. Problems Name Problem SNOMED Code Status Onset Date Resolution Date Notes Provider Name and Address Organization Details Recorded Time Kidney stone 68109008 Active 018 Murelene Atul [facility] 12/13/2017 18:08:39 Problem Notes None recorded. Procedures Surgical History Date Name Laterality Status Provider Name and Address Organization Details Recorded Time Cholecystectomy completed Murelene Atul [facility] 12/13/2017 18:09:19 Appendectomy completed Murelene Atul [facility] 12/13/2017 18:09:22 Hysterectomy completed Murelene Atul [facility] 12/13/2017 18:09:27 Carpal tunnel surgery completed Murelene Atul [facility] 12/13/2017 18:09:35 Heart Surgery completed Murelene Atul [facility] 12/13/2017 18:09:43 Xcapsl ctrc rmvl cplx wo ecp completed Murelene Atul [facility] 12/13/2017 18:10:24 Imaging Results None recorded. Procedure Notes None recorded. Medical Equipment None Reported. Allergies Allergen ID Allergen Name Allergen Category Reaction Reaction Severity Criticality Documentation Date Start Date Code Code System Note Provider Name and Address Organization Details Recorded Time 684815 Keflex medicatio n Not available Not available Not available 06/30/2016201316 7 RxNorm Comme nt: Creat ed By: Yany Gentile paras Date: 014 1:57: 39 PM; Not Available [facility] 6 05:28:44 340024 Iodinated contrast media (substanc e) medicatio n Not available Not available Not available 12/13/2017 16709 2004 SNOMED Bo Pollard [facility] 8 18:06:57 Medications Name Sig Start Date [...] Updated DateTime 12/13/2017 154.94 cm 34.2 kg/m2 00918.22 g 140 mm[Hg] 60 mm[Hg] Bo Pollard [facility] 8 18:06:44 Social History Question Answer Notes LastModified by Organizat ion Details LastModified Time Tobacco Smoking Status Former Smoker Bo Pollard bee [facility] 12/13/2017 18:09:02 What Was The Date Of [...] available 12/04 18:08:51 Medical History Condition Response Kidney Stones Y Depression Y Anxiety Disorder Y Arthritis Y Ulcers Y High PSA Y Gynecological HistoryNo gynecological history recorded. Obstetrics History GPAL:G 0 P 0 0 0 0 Past Encounters Encounter ID Performer Location Encounter Start Date Encounter Closed Date Diagnosis/Indication Diagnosis SNOMED-CT Code Diagnosis ICD10 Code Diagnosis Note [id number] JEY SAM MD [facility] [address] [place] [address],[place] [address] 12/13/2017 15:35:16 12/18/2017 12:30:05 Urinary tract infectious disease 29985055 N39.0 Kidney stone 18223939 N2 0.0 Health Concerns Section Related Observation LastModified by Organization Detai ls LastModified Time None Recorded Concern Status LastModified by Organization Details LastModified Time None Recorded Advance Directives Directive None Recorded Payers Insurance Date Sequence Insurance Name Policy Number Policy Alexander Covered Member ID Alexander Member ID Guarantor Name 12/17/2017 1 [employer] - CHOICECARE (PPO) Samara Hayward [id number] Samara Hayward 07/10/2021 1 [employer] (MEDICARE REPLACEMENT/A DVANTAGE - PPO) Samara Hayward [id number] Samara Hayward 12/18/2017 GENERIC INSURANCE - MOVED-HOLD Samara Hayward Notes Date Note Type Note Provider Name and Address Organization Details Recorded Time 12/13/2017 text/html 72-year-old femtennille le in the office for consultation and [...] dysuria. She denies nocturia. JEY SAM MD [address] [place] [address], [address], [facility] 12/18/2017 12:01:48 OBGyn Episode No OBEpisode recorded.
--- OUTSIDE RECORDS SUMMARY | 2025-01-29 12:07 | XMS_ITS | Data Portability ---
Author Organization [facility] Address [address] [place] [address] Care Team Providers Care Print Project Manager Name Role Phone ZANE RAMSAY Primary Care Provider [phone] ZAIN RUIZ Referring Provider Assessment Encounter Date Assessment Date Assessment LastModified by Organization Details LastModified Time 05/12/2024 05/12/2024 HPI: This is a 79-year-old female with chronic low back and leg pain She is referred by Dr. English for spinal cord submitted trial, prior surgical history includes lumbar fusion in 2002. This was performed in [place]. Injection therapy in the past at the [place] [facility] with short-term benefit. 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 [...] fusion in 2002. This was performed in [place]. Injection therapy in the past at the [place] pain [facility] with short-term benefit. No prior [...] clinic for sooner follow up if needed. [email or web address] Not available 09/04/2024 16:23:20 Plan of Treatment Reminders Order Date Submit Date Provider Last Modified By Organization Details Last Modified Time Details Appointments None recorded. Lab HbA1c (hemoglobi n A1c), blood 2024 025 [email or web address] [facility], [facility], [address] [place] [address], [address], 5 16:08:12 methicilli n resistant staphyloco ccus aureus, culture, nasal 2024 025 [email or web address] [facility], [facility], [address] [place] [address], [address], 5 16:08:12 HbA1c (hemoglobi n A1c), blood 2023 024 [facility], [facility], [address] [place], [address], 4 10:41:07 methicilli n resistant staphyloco ccus aureus, culture, nasal 2023 024 NAHEED [facility], [facility], [address] [place] [address], [place], [address], 4 07:22:[address] referral - Please eval for spinal cord stimulator . patient is requesting an in-person consult. please contact with any issues! Thank you! 2024 025 [email or web address] [facility], [address], [place], [address], 5 16:06:[address] referral 2023 024 [email or web address] [facility], [address], [place], [address], 4 10:40:08 Procedures spinal cord stimulator trial (PROC) - SCS Trial 1.) Psych: [facility] - referred 09/17/24 2.) Clearances : none 3.) Hold Meds: none 4.) Labs: A1C, MRSA [+], CBC [09/2024] *VANCO *MRI Tspine [pending scheduling ] 2024 025 [email or web address] Not available 5 16:07:13 remote therapeuti c monitoring to monitor musculoske letal system (PROC) 2024 025 [email or web address] Not available 5 16:23:42 remote therapeuti c monitoring to monitor musculoske letal system (PROC) 2023 024 [email or web address] Not available 4 08:57:18 spinal cord stimulator trial (PROC) 2023 024 [email or web address] Not available 4 10:40:59 Surgeries None recorded. Imaging MRI, thoracic spine, w/o contrast - Spinal Cord Stimulator Workup, please evaluate patency of thoracic canal for placement of percutaneo us stimulator lead, entry point T12/L1, terminatio n of tip likely T7 superior endplate [address], [address], [place], [address], 5 09:03:07 MRI, thoracic spine, w/o contrast - Spinal Cord Stimulator Workup, please evaluate patency of thoracic canal for placement of percutaneo us stimulator lead, entry point T12/L1, terminatio n of tip likely T7 superior endplate [address] ([facility]), [address], [place], [address], 4 10:14:33 Medication Orders Hibiclens 4 % topical liquid [email or web address] [place] [address] [address], [facility] [place], [address], 16:23:30 Hibiclens 4 % topical liquid 2023 025 [facility], [address] [place], [address], 15:12:39 Patient TargetsNo targets recorded. Patient Instructions Encounter Date Encounter Id Patient Instructions Last Modified By Organization Details Last Modified Time 05/12/2024 [id number] behavioral healt h screen* [email or web address] Not available 05/15/2024 11:30:55 Education and training for patient self-management by a qualified, nonphysician health home health aide caregiver using a standardized curriculum, [id number] with the patient; individual patient* [email or web address] Not available 05/15/2024 11:31:26 spinal cord stimualtor trial information Not available 05/12/2024 16:43:57 09/04/2024 [id number] Education and training for patient self-management by a qualified, nonphysician health home health aide caregiver using a standardized curriculum, [id number] with the patient; individual patient* [email or web address] Not available 10/08/2024 07:42:35 spinal cord stimualtor trial information [email or web address] Not available 09/04/2024 16:23:30 behavioral healt h screen* [email or web address] Not available 10/08/2024 07:42:35 Reason for Referral Psychologist Referral for Ana mbar post-laminectomy syndrome Psychology evaluation for SCS Referring Physician: Oscar Stone, Pain Management, Encounter Date: 05/12/2024 Psychologist Referral [...] Address Organization Details Recorded Time Lumbar spondylosis 952535192 Active 2023 Madeline Lagace null, [place] - [facility] 4 15:55:35 Chronic pain 46142671 Active 2023 Madeline Lagace null, [place] - [facility] 4 15:55:35 Lumbar radiculopathy 452962191 Active 2023 Madeline Lagace null, [place] - [facility] 4 15:55:35 Overweight 242178463 Active 2023 Madeline Lagace null, [place] - [facility] 4 15:55:37 Lumbar post-laminecto my syndrome 568341683 Active 2023 Madeline Lagace null, [place] - [facility] 4 16:32:20 Problem Notes None recorded. Procedures Surgical History Date Name Laterality Status Provider Name and Address Organization Details Recorded Time Appendectomy completed Tiffani Alvarado [place] - [facility] 05/08/2024 09:20:54 Carpal tunnel surgery completed Tiffani ZIMMERMAN - [facility] 05/08/2024 09:21:31 complete repair of rotator cuff completed Tiffani ZIMMERMAN - [facility] 05/08/2024 09:22:03 Hysterectomy completed Tiffani ZIMMERMAN - [facility] 05/08/2024 09:22:19 procedure on gallbladder completed Tiffani ZIMMERMAN - [facility] 05/08/2024 09:22:29 total replacement of hip completed Tiffani ZIMMERMAN - [facility] 05/08/2024 09:22:50 Imaging Results None recorded. Procedure Notes None recorded. Medical Equipment None Reported. Allergies Allergen ID Allergen Name Allergen Category Reaction Reaction Severity Criticality Documentation Date Start Date Code Code System Note Provider Name and Address Organization Details Recorded Time 685809 Bactroban medicatio n Not available Not available Not available 04/15/2024 30492 1 RxNorm Nayeli noemier ELSIE [place] - [facility] 4 13:27:23 827708 Betadine medicatio n Not available Not available Not available 04/15/2024 82399 0 RxNorm Nyaeli ELSIE dia - [facility] 4 13:27:29 550064 Keflex medicatio n Not available Not available Not available 04/15/2024 40737 7 RxNorm Nayeli ELSIE dia - [facility] 4 13:29:16 541560 nickel environme nt Not available Not available Not available 04/15/2024 49571 29 RxNorm Nayeli noemier bee, ELSIE - [facility] 4 13:29:21 Medications Name Sig Start Date [...] Updated DateTime 5 154.94 cm 30.2 kg/m2 49302.7 8 g 76 /min 96 % 96 % 138 mm[Hg] 71 mm[Hg] Fausto Kaye [facility] 5 15:11:26 Date Recorded Body height Body mass index (BMI) Body weight Heart rate Oxygen saturation Oxygen saturation in Arterial blood by Pulse oximetry Systolic blood pressure Diastolic blood pressure Provider Name and Address Organization Details Last Updated DateTime 4 154.94 cm 30.2 kg/m2 61192.7 8 g 79 /min 96 % 96 % 125 mm[Hg] 76 mm[Hg] Madeline Henry [facility] 4 15:57:10 Social History Question Answer Notes LastModified by Organizat ion Details LastModified Time Tobacco Smoking Status Never Smoker Tiffani gamboa [facility] 05/08/2024 09:20:39 Do You Have An Advance Directive? Yes Information not available 05/12/2024 What Type Of Diet Are You Following? REGULAR Information not available 05/12/2024 What Is The Highest Grade Or Level Of School You Have Completed Or The Highest Degree You Have Received? [id number] Information not available 05/12/2024 Do You Have A Medical Power Of Distributor Operator? Yes Information not available 05/12/2024 What Was [...] Bipolar Disease N Coronary Artery Disease N Gout N Seizure Disorder N Atrial Fibrillation N Thyroid Disease N Head Trauma/Injury N Hernia N Depression N COPD N Anxiety Disorder N Acid Reflux (GERD) N Cancer N Stroke N Skin Disorder N High Cholesterol N Liver Disease Y Rheumatoid Arthritis N Headaches N Fibromyalgia N Kidney Disease N Autoimmune Disease N [...] SNOMED-CT Code Diagnosis ICD10 Code Diagnosis Note [id number] OSCAR STONE MD [place] [address] [place] [address] 05/12/2024 14:25:01 05/12/2024 17:28:44 Lumbar spondylosis 254831123 M47.816 Lumbar radiculopathy 128 944027 M54.16 Chronic pain 98662563 G8 9.29 Lumbar post-laminectomy syndrome 760960556 M96.1 [id number] OSCAR STONE MD [place] [address] [place] [address] 09/04/2024 14:41:19 09/04/2024 15:51:07 Lumbar radiculopathy 783752319 M54.16 Chronic pain 48245181 G8 9.29 Lumbar post-laminectomy syndrome 047687323 M96.1 Health Concerns Section Related Observation LastModified by Organization Detai ls LastModified Time None Recorded Concern Status LastModified by Organization Details LastModified Time None Recorded Advance Directives Directive Y: Payers Insurance Date Sequence Insurance Name Policy Number Policy Alexander Covered Member ID Alexander Member ID Guarantor Name 09/08/2024 1 [employer] (MEDICARE REPLACEMENT/ ADVANTAGE - PPO) Samara Hayward [id number] Samara Hayward Notes Date Note Type Note [...] ADLsAble to bathe/groom without assistance.;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 Prior Imaging:MRI (01/14/2024) Lumbar Surgery:lumbar spinal fusion:; surgery 2002 Physical Therapy:completed all recommended PT visits; complete more than 6weeks; response to therapy: made pain/symptoms worse Current Analgesics:Tramado l not effective; Gabapentin not effective Medications History:pt takes ibuprofen Adverse Reactions:No nausea; No vomiting; No itching; No respiratory depression; No sexual dysfunction;Consti pation Other Conservative Treatments:heat: effective Prior Pain Management:yes:; [facility], heating pad helps while shes using it Oswestry Disability Index (SHAD)Score/Date Completed: (05/12/2024 60) For Female Patients:Are you ? 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 Prior Imaging:MRI (01/14/2024) Lumbar Surgery:lumbar spinal fusion:; surgery 2002 Physical Therapy:completed all recommended PT visits; complete more than 6weeks; response to therapy: made pain/symptoms worse Current Analgesics:Tramado l not effective; Gabapentin not effective Medications History:pt takes ibuprofen Adverse Reactions:No nausea; No vomiting; No itching; No respiratory depression; No sexual dysfunction;Consti pation Other Conservative Treatments:heat: effective Prior Pain Management:yes:; [facility], heating pad helps while shes using it Oswestry Disability Index (SHAD)Score/Date Completed: (05/12/2024 60) For Female Patients:Are you ? No pt states she is in pain. LEFTY BERNARDO [address] [place] [address], [address], [facility] 09/04/2024 16:24:01 OBGyn Episode No OBEpisode recorded.
--- OUTSIDE RECORDS SUMMARY | 2025-01-29 12:08 | XMS_ITS | Patient Health Record ---
Author Organization [facility] Address [address] [facility] [address] [place] [address] Care Team Providers Care Make Up Operator Helper Name Role Phone Khadar Quintana Primary Care Provider Kathleen Sanderson Unavailable [phone] Migration, Provider Unavailable Unavailable Allergies Allergen (clinical [...] S- Susceptible I- Intermediate * Not on Otm [facility] Formulary [facility] [place] Count >100,000 RX GONZALEZ: R- Resistant S- Susceptible I- Intermediate * Not on Tom [facility] Formulary [facility] RX GONZALEZ: R- Resistant S- Susceptible I- Intermediate * Not on [facility] RX GONZALEZ: R- Resistant S- Susceptible I- Intermediate * Not on [facility] CU Escherichia coli: REACTION RX GONZALEZ: R- Resistant S- Susceptible I- Intermediate * Not on [facility] Amikacin <=8 S RX GONZALEZ: R- Resistant S- Susceptible I- Intermediate * Not on [facility] Ampicillin >16 R RX GONZALEZ: R- Resistant S- Susceptible I- Intermediate * Not on [facility] Aztreonam <=2 S RX GONZALEZ: R- Resistant S- Susceptible I- Intermediate * Not on [facility] Cefepime <=1 S RX GONZALEZ: R- Resistant S- Susceptible I- Intermediate * Not on [facility] Ceftazidime <=2 S RX GONZALEZ: R- Resistant S- Susceptible I- Intermediate * Not on [facility] Ceftriaxone <=1 S RX GONZALEZ: R- Resistant S- Susceptible I- Intermediate * Not on [facility] Ciprofloxacin 1 R RX GONZALEZ: R- Resistant S- Susceptible I- Intermediate * Not on [facility] Ertapenem <=0.25 S RX GONZALEZ: R- Resistant S- Susceptible I- Intermediate * Not on [facility] Gentamicin <=2 S RX GONZALEZ: R- Resistant S- Susceptible I- Intermediate * Not on [facility] Levofloxacin 1 I RX GONZALEZ: R- Resistant S- Susceptible I- Intermediate * Not on [facility] Meropenem <=0.5 S RX GONZALEZ: R- Resistant S- Susceptible I- Intermediate * Not on [facility] Nitrofurantoin 32 S RX GONZALEZ: R- Resistant S- Susceptible I- Intermediate * Not on [facility] Tetracycline <=2 S RX GONZALEZ: R- Resistant S- Susceptible I- Intermediate * [facility] Tobram[facility] <=2 S RX GONZALEZ: R- Resistant S- Susceptible I- Intermediate * Not on [facility] Trimethoprim/Sulfame thoxaz ole <=0.5/9.5 S RX GONZALEZ: R- Resistant S- Susceptible I- Intermediate * Not on [facility] Piperacillin/Tazobac newell 4/4 S RX GONZALEZ: R- Resistant S- Susceptible I- Intermediate * Not on [facility] CUU RX GONZALEZ: R- Resistant S- Susceptible I- Intermediate * Not on [facility] Rapid Covid Antigen Reviewed date:03/27/2024 02:20:25 PM [...] times a day; Duration: 30 day(s) Active traMADol HCl 50 MG 1 tab(s) orally thre e times daily as needed for pain; Duration: 30 days 03/11/2024 Active clonazePAM 1 MG 1 tab(s) orally 2 times daily; Duration: 30 day(s) 04/30/2024 Active Lisinopril 10 MG 1 tab(s) orally 2 times a day; Duration: 90 days 07/11/2022 Active POTASSIUM CHLORIDE (AVH-DHIU-FBP M20) 20 MEQ TAKE 1 TABLET BY MOUTH ONCE DAILY FOR 90 DAYS; Duration: 90 *Please review for potential replacement for e-prescription and drug interaction check* Active hydrOXYzine Pamoate 25 MG 1 cap(s) orally 4 times a day; Duration: 14 days 05/19/2024 Active Fluticasone Propionate 50 [...] for pain; Duration: 30 days 05/05/2024 Active Melatonin 5 MG 1 cap(s) orally once a day (at bedtime) Active Atorvastatin Calcium 20 MG 1 tab(s) orally once a day; Duration: 90 Active Immunizations Vaccine Route Administration Date [...] Problem Status W/U Status Risk Notes Problem Major depression, single episode (64073995) Major depressive disorder, single episode, unspecified (F32.9) Active confirmed Problem Anxiety disorder (509731076) Other mixed anxiety disorders (F41.3) Active confirmed Problem Bilateral tinnitus (1555096904603) Tinnitus, bilateral (H93.13) Active confirmed Problem Congenital malformation syndrome (737836688) Other specified congenital malformation syndromes, 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) Active confirmed Problem Paresthesia (finding) (81691907) Paresthesia of skin (R20.2) Active confirmed Problem Mixed anxiety and depressive disorder (588185119) Depression with anxiety (F41.8) Active confirmed Problem Anxiety (61295719) Anxiety (F41.9) Active confirmed Problem Vitamin D deficiency (54379184) Vitamin D deficiency (E55.9) Active confirmed Problem Essential hypertension (77276473) Essential hypertension (I10) Active confirmed Problem Diverticulitis (05702949) Diverticulitis (K57.92) Active confirmed Problem Constipation by delayed colonic transit (00289413) Constipation by delayed colonic transit (K59.01) Active confirmed Problem Acute exacerbation of chronic obstructive airways disease (268765329) COPD exacerbation (J44.1) Active confirmed Problem Dysuria (16228670) Burning with urination (R30.0) Active confirmed Problem Obese class I (984725221841955) BMI 33.0-33.9,adult (Z68.33) Active confirmed Problem Chronic pain (90959531) Other chronic pain (G89.29) Active confirmed Problem Senile debility (41812070) Senile debility (R54) Active confirmed Problem Claudication (52893129) Claudication (I73.9) Active confirmed Problem Insomnia disorder related to another mental disorder (44803777) Psychophysiological insomnia (F51.04) Active confirmed Problem Inflammation of right sacroiliac joint (0895183818) Inflammation of right sacroiliac joint (M46.1) Active confirmed Problem Degeneration of lumbosacral intervertebral disc (72655786) DDD (degenerative disc disease), lumbosacral (M51.37) Active confirmed Problem Mood disorder (13273061) Mood disorder (F39) Active confirmed Problem Obstructive sleep apnea syndrome (61867474) LAURA (obstructive sleep apnea) (G47.33) Active confirmed Problem Environmental tobacco smoke exposure (545213430) Second hand smoke exposure (Z77.22) Active confirmed Problem Generalized anxiety disorder (01013891) MONI (generalized anxiety disorder) (F41.1) Active confirmed Problem Vitamin B12 deficiency (465837882) History of non anemic vitamin B12 deficiency (Z86.39) Active confirmed Problem Abnormal gait (03967435) Gait disturbance (R26.9) Active confirmed Problem Atherosclerotic heart disease of [place] coronary artery without angina pectoris (895446145940117) CAD in [place] artery (I25.10) Active confirmed Problem Recurrent falls (688863496) Falls frequently (R29.6) Active confirmed Problem Lymphedema (093032985) Lymphedema of left leg (I89.0) Active confirmed Problem Idiopathic sleep related non-obstructive alveolar hypoventilation (841698666) Nocturnal hypoxemia (G47.34) Active confirmed Problem Abdominal aortic aneurysm without rupture (disorder) (11735269) Abdominal aortic aneurysm (AAA) without rupture (I71.4) Active confirmed Problem Irritable bowel syndrome characterized by constipation (572892475) Irritable bowel syndrome with constipation (K58.1) Active confirmed Problem Inflammatory bowel disease (disorder) (95081984) IBD (inflammatory bowel disease) (K63.89) Active confirmed Problem Midline cystocele (707474939) Bladder prolapse, female, acquired (N81.10) Active confirmed Problem Mucopurulent chronic bronchitis (04871686) Chronic bronchitis with productive mucopurulent cough (J41.1) Active confirmed Problem Major depression, single episode (24353545) Chronic major depressive disorder (F32.9) Active confirmed Problem Impairment of balance (663229041) Balance problem (R26.89) Active confirmed Vital Signs Heart Rate 80 /min 05/20/2024 Temperature 98 degrees Fahrenheit 05/20/2024 Blood pressure diastolic 80 mm Hg 05/20/2024 Height 5 ft 1 in in 05/20/2024 Blood pressure systolic 138 mm Hg 05/20/2024 Weight 162 lbs 05/20/2024 BMI 30.61 kg/m2 05/20/2024 Encounters Encounter Location Date Provider Diagnosis [facility] [address] [place], [place] [address] 11/08/2024 Provider Migration MONI (generalized anxiety disorder) F41.1 [facility] [address] [facility] [address] [place] [address] 02/04/2024 Kathleen Sanderson DDD (degenerative disc disease), lumbosacral M51.37 ; Pain in right leg M79.604 ; Pain in left leg M79.605 and Varicose veins of lower leg I83.90 [facility] [address] [place] [address] 02/19/2024 Kathleen Sanderson DDD (degenerative disc disease), lumbosacral M51.37 ; Pain in right leg M79.604 and Pain in left leg M79.605 [facility] [address] [place] [address] 02/29/2024 Kathleen Sanderson Dysuria R30.0 [facility] [place] [address] [address] 03/26/2024 Kathleen Sanderson Subacute cough R05.2 and Acute non-recurrent maxillary sinusitis J01.00 [facility] [address] [place] [address] 05/05/2024 Kathleen Sanderson DDD (degenerative disc disease), lumbosacral M51.37 ; Tinnitus, bilateral H93.13 ; Pain in right leg M79.604 ; Pain in left leg M79.605 ; MONI (generalized anxiety disorder) F41.1 ; Mood disorder F39 and Cognitive changes R41.89 [facility] [address] [address] 05/08/2024 Khadar Besson Tinnitus of both ears H93.13 [facility] [address] [address] 05/20/2024 Khadar Quintana MONI (generalized anxiety disorder) F41.1 [facility] [address] [place] [address] 02/04/2024 Kathleen Maria E [facility] [address] [place] [address] 02/04/2024 Kathleen Maria E [facility] [address] [place] [address] 02/27/2024 Kathleen Maria E [facility] [address] [place] [address] 02/29/2024 Kathleen Maria E [facility] [address] [place] [address] 02/29/2024 Kathleen Maria E [facility] [address] [address] 03/03/2024 Khadar Besson [facility] [address] [place] [address] 04/08/2024 Kathleen Maria E Left-sided chest wall pain R07.89 and Acute traumatic pain G89.11 [facility] [address] [address] 04/30/2024 Khadar Besson [facility] [address] [facility] [address] [place] [address] 05/08/2024 Kathleen Maria E [facility] [address] [place] [address] 05/08/2024 Khadar Besson [facility] [address] [place] [address] 05/19/2024 Khadar Besson [facility] [address] [place] [address] 05/23/2024 Khadarzofia Quintana Assessments Encounter Date Diagnosis (ICD Code) Assessment Notes Treatment Notes Treatment Clinical Notes Section Notes 02/04/2024 Pain in right leg (ICD-10 - M79.604) 02/19/2024 DDD (degenerative disc disease), lumbosacral (ICD-10 - M51.37) Recommend resume low dose gabapentin, with caution, and will review other possibilities with Dr Quintana when he is available 02/29/2024 Dysuria (ICD-10 - R30.0) 03/26/2024 Acute non-recurrent maxillary sinusitis (ICD-10 - J01.00) Discussed the etiology and expected course of acute sinusitis. Discussed the rationale for antibiotics use and the importance of completing the antibiotic prescription as prescribed. Discussed supportive care with antihistamines. Discussed the signs and symptoms of worsening infection that may indicate need for reassessment in clinic/ED. 03/26/2024 Subacute cough (ICD-10 - R05.2) 04/08/2024 Left-sided chest wall pain (ICD-10 - R07.89) 04/08/2024 Acute traumatic pain (ICD-10 - G89.11) 05/05/2024 Tinnitus, bilateral (ICD-10 - H93.13) We had another long discussion about the fact that her tinnitis is waxing and waning and clonazepam doesn't always give her relief to the point that she is resting better but that the clonazepam isn't likely causing her symptoms at this point. I encouraged her to resume mirtazepine at HS for sleep and mood. 02/04/2024 DDD (degenerative disc disease), lumbosacral (ICD-10 [...] I have reviewed Dr. English's consult note. 02/19/2024 Pain in right leg (ICD-10 - M79.604) 05/05/2024 DDD (degenerative disc disease), lumbosacral (ICD-10 [...] safeguard the tramadol from unscrupulous family members. 05/20/2024 MONI (generalized anxiety disorder) (ICD-10 - [...] MONI (generalized anxiety disorder) (ICD-10 - F41.1) 02/19/2024 Pain in left leg (ICD-10 - M79.605) 05/05/2024 Pain in right leg (ICD-10 - M79.604) 02/04/2024 Pain in left leg (ICD-10 - M79.605) 05/05/2024 Pain in left leg (ICD-10 - M79.605) 02/04/2024 Varicose veins of lower leg (ICD-10 - I83.90) 05/05/2024 MONI (generalized anxiety disorder) (ICD-10 - [...] M-Urinalysis and Microscopic 09/14/2021 M-Comprehensive Metabolic Panel 09/14/19 22 M-Comprehensive Metabolic Panel 09/15/19 20 M-BNP 09/15/2019 M-Respiratory Virus Panel, PCR M-Vitamin B12 12/14/2022 M-Vitamin D 25 Hydroxy 12/14/2022 M-Vitamin D 25 Hydroxy 01/21/2020 M-COVID PCR SINGLE RAPID 09/14/2021 CBC With Platelet And Differential 08/31 Insurance Providers Payer Name Payer Address Payer Phone Subscriber Number Group Number Insured Name Patient Relationship to Insured Coverage Start Date Coverage End Date [employer] MEDICARE [address] [address] [place] [address] [id number] Samara Hayward Self - patient is the [...] 03/2019 Back surgery, Dr Catracho Arellano in [facility] 06/2003 Hospitalization History Reason Date(Month/Year) ICU- GI bleed- transfusions 09/2016 [facility] 03/2019 [facility]- Tachycardia 03/2018
--- OUTSIDE RECORDS SUMMARY | 2025-01-29 12:08 | XMS_ITS | Data Portability ---
Author Organization [facility] Address [address] [place] [address] Assessment No assessment recorded. Plan of Treatment Reminders Order Date Submit Date Provider Last Modified By Organization Details Last Modified Time Details Appointments None recorded. Lab noninvasiv e colorectal cancer DNA + occult blood screening, QL, stool 2023 024 [email or web address] 3 Progression (Cologuard Orders Only), [address], [address], [place], [address], 4 13:16:20 urinalysis , dipstick 2023 024 [facility], [address] [place] [address], [address], 4 14:15:11 culture, urine 2023 024 NAHEED [facility] [place], [address], 4 01:06:52 vaginal pathogens panel, MARGOT+probe, vaginal fluid 2023 024 [email or web address] 3 [facility] ([place] [place], [address], 4 13:16:04 Referral None recorded. Procedures None recorded. Surgeries None recorded. Imaging MAMMO, screening, digital, bilateral [address] [place] [address] (Central Scheduling), [address] [place] [address] [place], [address], 13:41:56 DEXA [email or web address] [place] [address] (Central Scheduling), [address] [place] [address] [place], [address], 4 13:42:07 Medication Orders Cipro 500 mg tablet 2023 024 [facility] [place], [address], 14:15:09 Patient TargetsNo targets recorded. Patient InstructionsNo instructions recorded. Reason for Referral None Reported. Results Created Date Observation Date Name Description Value Unit Range Abnormal Flag Note LastModifiedBy Organization Detail LastModifiedTime 06/09/2006/12/2024 URINE CULTU RE, ROUTI NE urine culture, routine Final report abnormal Not Available [facility] ([facility]) [address] [facility], [place], [address], 06/12/2024 01:06:52 06/09/20 24 06/12/2024 URINE CULTU RE, ROUTI NE result 1 Escher ichia coli abnormal Cefaz antony <=4 ug/mL Cefaz antony with an ROBRETH <=16 predi cts susce ptibi lity to [...] ng units per mL Not Available [facility] ([facility]) [address] [facility], [place], [address], 06/12/2024 01:06:52 06/09/20 24 06/12/2024 URINE CULTU [...] thopr im/Gill lfa S Not Available [facility] ([facility]) [address] [facility], [place], [address], 06/12/2024 01:06:52 06/09/20 24 06/09/2024 urina lysis , dipst ick Leukocytes Small Not Available [address], [address], 06/09/2024 13:34:38 06/09/20 24 06/09/2024 urina lysis , dipst ick Nitrite negati ve Not Available [address], [address], 06/09/2024 13:34:38 06/09/20 24 06/09/2024 urina lysis , dipst ick Urobilinogen .2 Not Available [address], [address], 06/09/2024 13:34:38 06/09/20 24 06/09/2024 urina lysis , dipst ick Protein Negati ve Not Available [address], [address], 06/09/2024 13:34:38 06/09/20 24 06/09/2024 urina lysis , dipst ick pH 5.5 Not Available [address], [address], 06/09/2024 13:34:38 06/09/2006/09/2024 urina lysis , dipst ick Blood Small Not Available [address], [address], 06/09/2024 13:34:38 06/09/2006/09/2024 urina lysis , dipst ick Specific [place] 1.025 Not Available [address], [address], 06/09/2024 13:34:38 06/09/2006/09/2024 urina lysis , dipst ick Ketone Negati ve Not Available [address], [address], 06/09/2024 13:34:38 06/09/2006/09/2024 urina lysis , dipst ick Bilirubin Small Not Available [address], [address], 06/09/2024 13:34:38 06/09/2006/09/2024 urina lysis , dipst ick Glucose Negati ve Not Available [address], [address], 06/09/2024 13:34:38 06/09/2006/09/2024 urina lysis , dipst ick Appearance Clear Not Available [address], [address], 06/09/2024 13:34:38 06/09/20 24 06/09/2024 urina lysis , dipst ick Color Yellow Not Available [address], [place], [address], 06/09/2024 13:34:38 Result Notes None recorded. Problems Name Problem SNOMED Code Status Onset Date Resolution Date Notes Provider Name and Address Organization Details Recorded Time Blood in urine 60888416 Active 2023 Crispin Boyd MD [address] [place] [address], [address], [employer] 13:44:38 Screening mammography Active 2023 Crispin Boyd MD [address] [place] [address], [address], [employer] 13:44:40 Screening for osteoporosis Active 2023 Crispin Boyd MD [address] [place] [address], [address], [employer] 13:44:42 Screening for malignant neoplasm of colon Active 2023 Crispin Boyd MD [address] [place] [address], [address], [employer] 13:44:44 Relaxation of pelvic floor 552282630 Active 2023 Crispin Boyd MD [address] [place] [address], [address], [employer] 14:15:17 Problem Notes None recorded. Procedures Surgical History Date Name Laterality Status Provider Name and Address Organization Details Recorded Time Pessary Check completed Crispin Boyd MD [address] [place] [address], [address], [employer] 06/10/2024 08:59:35 Imaging Results None recorded. Procedure Notes None recorded. Medical Equipment None Reported. Allergies Allergen ID Allergen Name Allergen Category Reaction Reaction Severity Criticality Documentation Date Start Date Code Code System Note Provider Name and Address Organization Details Recorded Time 47478 Keflex medicatio n Not available Not available Not available 06/09/202433164 7 RxNorm Crystal Lauryn bee, [employer] 4 13:37:42 18380 Betadine medicatio n Not available Not available Not available 06/09/2024 0 RxNorm Crystal Lauryn bee, [employer] 4 13:46:32 02602 Hibiclens medicatio n Not available Not available Not available 06/09/2024 26353 2 RxNorm Crystal Lauryn bee, [employer] 4 13:47:09 Medications Name Sig Start Date [...] Updated DateTime 4 154.94 cm 30 kg/m2 99505.7 5 g 72 /min 99 % 99 % 130 mm[Hg] 72 mm[Hg] Pati Combs [employer] 4 14:22:05 Social History Question Answer Notes LastModified by Organizat ion Details LastModified Time Tobacco Smoking Status Never Smoker Pati gambao, [employer] 06/09/2024 13:30:00 What Was The Date Of Your Most Recent Tobacco Screening? 06/09/2024 [email or web address] Information not available 06/09/2024 What Is Your Relationship Status? [email or web address] Information not available 06/09/2024 Has Tobacco Cessation Counseling Been Provided? No [email or web address] Information not available 06/09/2024 Sex: Unknown Functional Status Question Answer Note LastModified by Organization D etails LastModified Time Do you or have you ever used any other forms of tobacco or nicotine? No [email or web address] Information not available 06/09/2024 Mental Status None [...] mcg/0.25mL dose 1 completed Pati Fieldzie null, [employer] 06/09/2024 13:47:52 COVID-19, mRNA, LNP-S, PF, 100 mcg/0.5mL dose or 50 mcg/0.25mL dose 1 completed Crystal Lauryn null, [employer] 06/09/2024 13:47:52 COVID-19, mRNA, LNP-S, PF, 100 mcg/0.5mL dose or 50 mcg/0.25mL dose 1 completed Crystal Lauryn null, [employer] 06/09/2024 13:47:52 pneumococcal polysaccharide PPV23 0 completed Crystal Lauryn null, [employer] 06/09/2024 13:47:52 Tdap 3 completed Pati Combs null, [employer] 06/09/2024 13:47:52 Pneumococcal conjugate PCV 13 7 completed Pati Revelese null, [employer] 06/09/2024 13:47:52 Influenza, high-dose, trivalent, PF 3 completed Crystal Lauryn null, [employer] 06/09/2024 13:47:52 Influenza, high-dose, trivalent, PF 8 completed Crystal Lauryn null, [employer] 06/09/2024 13:47:52 Influenza, high-dose, trivalent, PF 0 completed Pati Combs null, [employer] 06/09/2024 13:47:52 Influenza, high-dose, trivalent, PF 9 completed Crystal Lauryn null, [employer] 06/09/2024 13:47:52 Past Encounters Encounter ID Performer Location Encounter Start Date Encounter Closed Date Diagnosis/Indication Diagnosis SNOMED-CT Code Diagnosis ICD10 Code Diagnosis Note [id number] Crispin Boyd MD [facility] [address] [place] [address] 06/09/2024 13:30:51 06/09/2024 14:29:09 Blood in urine 64488825 R31.9 By history the patient notes blood [...] associated third-degr ee cystocele. Screening mammography 24 159515 Z12.31 This 71-year-ol d man with yeah there is no doing better right effusion tell me with patient has not had a mammogram in over 10 years. Monthly self breast exam strongly advised. She has no family history of breast cancer Screening for osteoporosis 427536362 Z13.820 Patient does not recall ever having had a bone density study. I have advised she take 1200 mg calcium daily along with vitamin D3. Screening for malignant neoplasm of colon 739476907 Z12.11 Patient states she had a colonoscop y more than 10 years ago but has not had any follow-up since. She declines a colonoscop y at this point. I have offered her a Cologuard instead ,noting its limitation s. Patient is agreement with this. 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 She originally stated she did not know of this but on further questionin g an attempt was made with pessary placement [address] Valdez in [place]. She was fitted today with a #4 [...] (MEDICARE REPLACEMENT/A DVANTAGE - PPO) Samara Hayward [id number] Samara Hayward 06/09/2024 MEDICARE [place]: [employer] - [facility] Samara Hayward [id number] Samara Hayward Notes Date Note Type [...] in over 10 years. Crispin Boyd MD [address] [place] [address], [address], [facility] [employer] 06/10/2024 09:00:03 OBGyn Episode No OBEpisode recorded.
--- OUTSIDE RECORDS SUMMARY | 2025-01-29 12:08 | XMS_ITS | Clinical Summary ---
Author Organization [facility] Address [facility] [place] [address] Care Team Providers Care Blow Moulding Machine Operator Name Role Phone Khadar Quintana MD Primary Care Provider + [phone] Source Comments This information has been disclosed to you from confidential records protectedfrom disclosure by state law. You shall make no further disclosure of thisinformation without the specific, written, and informed release of theindividual to whom it pertains, or as otherwise permitted by law. A generalauthorization for the release of medical or other information is not sufficientfor the purposes of therelease of HIV test results or diagnoses. [id number] Allergies Active Allergy Reactions Criticality Noted Date Comments Cephalosporins Other (See Comments) Low 10/09/2013 Chlorhexidine Gluconate Other (See Comments) Low Iodinated Contrast Media Rash Low 10/01/2016 Povidone-Iodine Other (See Comments) Low 07/09/2017 Medications clonazePAM (KLONOPIN) 0.5 MG tablet Take 1 tablet (0.5 mg total) by mouth 2 times a day as needed for Anxiety. Active lisinopriL-hydr ochlorothiazide (PRINZIDE) 20-12.5 mg per tablet Take 1 tablet by mouth daily. Active metoprolol succinate (TOPROL-XL) 50 MG 24 hr tablet Take 1 tablet (50 mg total) by mouth daily. Active potassium chloride (KLOR-CON) 20 mEq packet Take 20 mEq by mouth 2 times a day. Active atorvastatin (LIPITOR) 20 MG tablet Take 1 tablet (20 mg total) by mouth daily. Active linaCLOtide (LINZESS) 290 mcg Cap 1 capsule (290 mcg total). Active budesonide-form oteroL (SYMBICORT) 160-4.5 mcg/actuation inhaler Inhale 2 puffs into the lungs 2 times a day. Active albuterol 90 mcg/actuation Inhl inhaler Inhale 2 puffs into the lungs every 6 hours as needed for Wheezing. Active diphenhydrAMINE (BENADRYL) 25 mg tablet Take 1 tablet (25 mg total) by mouth every 6 hours as needed for Itching. Active senna (SENOKOT) 8.6 mg tablet Take 1 tablet by mouth daily. Active ibuprofen (MOTRIN) 200 MG tablet Take 1 tablet (200 mg total) by mouth every 6 hours as needed for Pain. Active fluticasone propionate (FLONASE) 50 mcg/actuation nasal spray Use 1 spray into each nostril daily. Active traMADoL (ULTRAM) 50 mg tablet Take 1 tablet (50 mg total) by mouth every 6 hours as needed for Pain. Active Social History Tobacco Use Types Packs/Day Years Used Date Smoking Tobacco: Former Cigarettes Smokeless Tobacco: Never Tobacco Cessation:Counseling Given: Not Answered Alcohol Use Standard Drinks/Week Comments Not Currently 0 (1 standard drink = 0.6 oz pur e alcohol) PHQ-2 Answer Date Recorded PHQ-2 Total Score 0 07/05/2022 Yearly Questionnaire Answer Date Record ed Do you need any assistance w ith obtaining housing, meals, medication, transportation or medical equipment? No 07/05 Assistance needed for: Not on file 2 Yearly Questionnaire Answer Date Record ed Do you need any assistance w ith obtaining housing, meals, medication, transportation or medical equipment? No 07/05 Assistance needed for: Not on file 2 Yearly Questionnaire Answer Date Record ed Do you need any assistance w ith obtaining housing, meals, medication, transportation or medical equipment? No 07/05 Assistance needed for: Not on file 2 Comments No Sex and Gender Information Value Date Recorded Sex Assigned at Not on file Legal Sex Female 12:07 PM EDT Gender Identity Not on file Sexual Orientation Not on file Last Filed Vital Signs Vital Sign Reading Time Taken Comments Blood Pressure - - Pulse - - Temperature - - Respiratory Rate 14 07/05/2022 4:08 PM EST Oxygen Saturation - - Inhaled Oxygen Concentration - - Weight 79.4 kg (175 lb) 07/05/2022 4:08 PM EST Height 154.9 cm (5' 1 ) 07/05/2022 4:08 PM EST Body Mass Index 33.07 07/05/2022 4:08 PM EST Plan of Treatment Health Maintenance Due Date Last Done Comments Alcohol Misuse Screening 1963 Immunization: DTaP/Tdap/Td (1 - Tdap) 1965 Immunization: Zoster (1 of 2) 1996 Osteoporosis Screening (DXA Scan) 1996 Lung Cancer Screening 09/24/2018 09/24/2017 Immunization: RSV (Adult) (1 - 1-dose 75+ series) 2021 Depression Screening 07/05/2023 07/05/2022 Immunization: COVID-19 ( season) 2024 06/29/2021, 11/05/2020, 10/05/2020 Immunization: Influenza (MyC granda) (Season Ended) 2025 06/09/2020, 07/01/2019, 05/17/2018 Immunization: Pneumococcal Completed 06/09/2020, Insurance [employer] CHOICE PPO MEDICARE Care Teams Blow Moulding Machine Operator Relationship Specialty Start Date End Date Khadar Quintana MD [address] [place] [address] [place] [id number] PCP - General Internal Medicine 05/30/22
--- OUTSIDE RECORDS SUMMARY | 2025-01-29 12:08 | XMS_ITS | Clinical Summary ---
Author Organization Healthcare Address [address] [id number] Care Team Providers Care Electroplating Sales Representative Name Role Phone Kathleen Sanderson MARGARITA Primary Care Provider [phone] Allergies Active Allergy Reactions Criticality Noted Date [...] Screening 1945 [facility]-Medicare Annual Wellness (AWV) 1945 [facility]-/Child/Adol SDOH Screenings 1945 [facility]- SDOH Screenings 1964 [facility]-Adult SDOH Screenings 1964 [facility]-DTaP,Tdap,and Td Vaccine s (1 - Tdap) 1965 [facility]-Zoster Vaccines (1 of 2) 1996 [facility]-RSV Vaccine: 60+ Years o r (1 - 1-dose 75+ series) 2021 [id number] Vaccine ( season) 2024 06/29/2021, 11/05/2020, 10/05/2020 [...] Most Recently Relevant to Health Maintenance Insurance [facility] MEDICARE Care Teams Electroplating Sales Representative Relationship Specialty Start Date End Date Kathleen Sanderson APRN [address] [place] [phone] [facility] - General 06/23/21
--- OUTSIDE RECORDS SUMMARY | 2025-01-29 12:08 | XMS_ITS | Data Portability ---
Author Organization [facility] ADMIN Address [address] [place] [id number] Care Team Providers Care Education Administrator Name Role Phone YAMILETH IBRAHIM Primary Care [...] record ed. [email or web address] Not Available 2022 15:06:10 03/06/20 23 05/09/2021 audio gram No observ ation record ed. BARCODE Not Available 2022 15:12:24 Result Notes None recorded. Procedures Surgical History Date Name Laterality Status Provider Name and Address Organization Details Recorded Time repair of rectocele completed Elaine Rocha [facility] & [place] 06/19/2023 11:32:42 repair of rotator cuff by suture completed Elaine ZIMMERMAN [facility] & [place] 06/19/2023 11:33:26 extraction of cataract completed Elaine ZIMMERMAN [facility] & [place] 06/19/2023 11:33:39 Carpal tunnel surgery completed Elaine ZIMMERMAN [facility] & [place] 06/19/2023 11:33:53 Stent Placement completed Elaine DOUGLAS [facility] & [place] 06/19/2023 11:34:56 procedure on gallbladder completed Elaine DOUGLAS [facility] & [place] 06/19/2023 11:35:47 Appendectomy completed Elaine DOUGLAS [facility] & [place] 06/19/2023 11:35:59 hysterectomy completed Elaine DOUGLAS [facility] & [place] 06/19/2023 11:36:08 Imaging Results None recorded. Procedure Notes None recorded. Medical Equipment None Reported. Allergies Allergen ID Allergen Name Allergen Category Reaction Reaction Severity Criticality Documentation Date Start Date Code Code System Note Provider Name and Address Organization Details Recorded Time 434212 Keflex medicatio n Not available Not available Not available 06/18/202363280 7 RxNorm ELSIE Sheppard [facility] & [place] 3 14:26:14 008796 iodine medicatio n Not available Not available Not available 06/18/2023 5933 RxNorm ELSIE Sheppard [facility] & [place] 3 14:26:25 655439 Betadine medicatio n Not available Not available Not available 06/18/202393171 0 RxNorm ELSIE Sheppard [facility] & [place] 3 14:26:49 776513 Hibiclens medicatio n Not available Not available Not available 06/18/2023 21858 2 RxNorm ELSIE Sheppard [facility] & [place] 3 14:26:55 812246 adhesive tape environme nt,medica tion Not available Not available Not available 06/18/2023 96404 UNK ELSIE Sheppard [facility] & [place] 3 14:27:03 095367 Augmentin medicatio n Not available Not available Not available 06/18/2023 50861 2 RxNorm ELSIE Sheppard [facility] & [place] 3 14:27:09 Medications Name Sig Start Date [...] Updated DateTime 3 154.94 cm 34.4 kg/m2 15034.8 1 g 97.1 [degF] 70 /min 177 mm[Hg] 80 mm[Hg] Jo-Ann Snaderson ELSI[facility] 14:51:11 Social History None recorded. Functional Status [...] Constipation Y Anesthesia Complications N Heart Attack (ID) N Anxiety Disorder Y Diabetes N Bleeding Disorder N Arthritis Y Hearing Loss N Tuberculosis N Acid Reflux (GERD) N Hyperlipidemia N Cancer N Stroke N Asthma N Sleep Disorder N GERD/Reflux N Heart Disease N Fibromyalgia N Headaches N Hypertension Y Speech Delay N Kidney Disease N Gynecological HistoryNo gynecological history recorded. Obstetrics History GPAL:G 0 P 0 0 0 0 Immunizations Vaccine Type Date Status Note Provider Nam e and Address Organization Details Recorded Time Pneumococcal conjugate PCV 13 7 completed Elaine gamboa [facility] 06/19/2023 11:40:00 Influenza, MDCK, trivalent, PF 7 completed ELSIE Sheppard [facility] 06/19/2023 11:40:18 Past Encounters Encounter ID Performer Location Encounter Start Date Encounter Closed Date Diagnosis/Indication Diagnosis SNOMED-CT Code Diagnosis ICD10 Code Diagnosis Note [id number] Shahrzad Becerra MD [facility] G -[address] [address] 03/06/2023 13:55:55 03/06/2023 15:38:30 Bilateral tinnitus [id number] 102 H93.13 patient has very bothersome tinnitus [...] Anxiety ab out body function or health 673020819 F41.8 Health Concerns Section Related Observation LastModified by Organization Detai ls LastModified Time None Recorded Concern Status LastModified by Organization Details LastModified Time None Recorded Advance Directives Directive None Recorded Payers Insurance Date Sequence Insurance Name Policy Number Policy Alexander Covered Member ID Alexander Member ID Guarantor Name 09/19/2024 1 [employer] (MEDICARE REPLACEMENT/ ADVANTAGE - PPO) Samara Hayward [id number] Notes Date Note Type Note Provider Name [...] have worked for her. She saw an trust vault clerk in [place] (Nehal Caicedo) who wanted her to get [...] audiologists and Otolaryngologists. She reports seeing an market research coordinator in [place] and one at as well (pepper Pena). She does report trying to wear a hearing aid however, she reports it made Sounds too loud and she immediately pulled them out of her ears and did not leave the office with the hearing aids. Shahrzad Becerra MD [address], [place], [address], [facility] [place] & [place] 03/09/2023 11:00:13 OBGyn Episode No OBEpisode recorded.
--- NOTE | 2025-01-29 12:09 | XR_ITS ---
FINAL REPORT CLINICAL HISTORY: Right lateral calf injury after fall COMPARISON: 08/12/2023 FINDINGS: Two views of the right tibia/fibula were obtained. There is no acute fracture or dislocation. The joint spaces are intact. There is no soft tissue abnormality. IMPRESSION: No acute lumbar abnormality identified. Reviewed, Interpreted and Dictated by Eloina Arce MD Transcribed by Jody Jeong Authenticated and [facility]
[2025-01-29] MEDS: DOXYCYCLINE HYCL 100 MG TABLET PO (12:20)
[2025-01-29 12:51] VITALS: PULSE 77; O2SAT 98
[2025-01-29 12:56] VITALS: BP 150/85; PULSE 86; RESP 15; TEMP 36.7; O2SAT 95
== END 2025-01-29 12:59 | disposition home or self-care (01) ==
PROVIDERS: Emergency Provider Emergency Medicine; PCP Internal Medicine
DX: S89.91XA Unspecified injury of right lower leg, initial encounter (principal); I10 Essential (primary) hypertension; F41.9 Anxiety disorder, unspecified
CPT/HCPCS: 73590; 99283

== ENCOUNTER 2025-02-05 15:16 | Emergency (ER) | payer MEDICARE, SELFPAY ==
--- OUTSIDE RECORDS SUMMARY | 2025-02-05 15:24 | XMS_ITS | Clinical Summary ---
Author Organization [facility] Address [facility] [place] [place] [address] Care Team Providers Care Junior Sales Assistant Name Role Phone Khadar Quintana MD Primary Care Provider + [phone] Source Comments This information has been disclosed [...] therelease of HIV test results or diagnoses. [id number] Allergies Active Allergy Reactions Criticality Noted [...] 06/29/2021, 11/05/2020, 10/05/2020 Immunization: Influenza (MyC granda) (#1) 2025 06/09/2020, 07/01/2019, 05/17/2018 Immunization: Pneumococcal Completed 06/09/2020, Insurance [employer] CHOICE PPO MEDICARE Care Teams Junior Sales Assistant Relationship Specialty Start Date End Date Khadar Quintana MD [address] [place] [address] [place] [id number] PCP - General Internal Medicine 05/30/22
--- OUTSIDE RECORDS SUMMARY | 2025-02-05 15:24 | XMS_ITS | Data Portability ---
Author Organization [facility] ADMIN Address [address] [place] [id number] Care Team Providers Care Puff Ironer Name Role Phone YAMILETH IBRAHIM Primary Care [...] Time repair of rectocele completed Elaine Rocha [facility] & [place] 06/19/2023 11:32:42 repair of rotator cuff by suture completed Elaine ZIMMERMAN [facility] & [place] 06/19/2023 11:33:26 extraction of cataract completed Elaine ZIMMERMAN [facility] & [place] 06/19/2023 11:33:39 Carpal tunnel surgery completed Elaine ZIMMERMAN [facility] & [place] 06/19/2023 11:33:53 Stent Placement completed Elaine DOUGLAS [facility] & [place] 06/19/2023 11:34:56 procedure on gallbladder completed Elaine DOUGLAS [facility] & [place] 06/19/2023 11:35:47 Appendectomy completed Elaine DOUGLAS [facility] & [place] 06/19/2023 11:35:59 hysterectomy completed Elaine DOUGLAS [facility] & [place] 06/19/2023 11:36:08 Imaging Results None recorded. Procedure Notes None recorded. Medical Equipment None Reported. Allergies Allergen ID Allergen Name Allergen Category Reaction Reaction Severity Criticality Documentation Date Start Date Code Code System Note Provider Name and Address Organization Details Recorded Time 038100 Keflex medicatio n Not available Not available Not available 06/18/202354861 7 RxNorm ELSIE Sheppard [facility] & [place] 3 14:26:14 735763 iodine medicatio n Not available Not available Not available 06/18/2023 5933 RxNorm ELSIE Sheppard [facility] & [place] 3 14:26:25 134273 Betadine medicatio n Not available Not available Not available 06/18/202359114 0 RxNorm ELSIE Sheppard [facility] & [place] 3 14:26:49 099267 Hibiclens medicatio n Not available Not available Not available 06/18/2023 24171 2 RxNorm ELSIE Sheppard [facility] & [place] 3 14:26:55 066275 adhesive tape environme nt,medica tion Not available Not available Not available 06/18/2023 25099 UNK ELSIE Sheppard [facility] & [place] 3 14:27:03 981718 Augmentin medicatio n Not available Not available Not available 06/18/2023 88718 2 RxNorm ELSIE Sheppard [facility] & [place] 3 14:27:09 Medications Name Sig Start Date [...] Body weight Body temperature Heart rate Systolic And Diastolic Provider Name and Address Organization Details Last Updated DateTime 3 154.94 cm 34.4 kg/m2 42379.8 1 g 97.1 [degF] 70 /min 177/80 mm[Hg] Jo-Ann ZIMMERMAN [facility] & [place] 14:51:11 Social History None recorded. Functional Status None recorded. Mental Status None recorded. Family History Relationship Description Onset Age of this Age Resolved Age Notes LastModified by Organization Details LastModified Time Mother Mother CHART_MERGE Not available 08/06 12:30:23 Mother Rheumatoid arthritis CHART_MERGE Not available 08/06 12:30:23 Father Father CHART_MERGE Not available 08/06 12:30:23 Medical History Condition Response None Y Other Y Emphysema N Glaucoma N Depression N Anesthesia Complications N Anxiety Disorder Y Arthritis Y Hearing Loss N Acid Reflux (GERD) N Cancer N Stroke N Headaches N Fibromyalgia N Speech Delay N Kidney Disease N Allergies/Hayfever Y Heart Problems Y Heart Conditions N Migraines N Thyroid Problems N Developmental Delay N Anemia N Immune System Disorder N Constipation Y Heart Attack (RI) N Diabetes N Bleeding Disorder N Tuberculosis N Hyperlipidemia N Asthma N Sleep Disorder N GERD/Reflux N Heart Disease N Hypertension Y Gynecological HistoryNo gynecological history recorded. Obstetrics History GPAL:G 0 P 0 0 0 0 Immunizations Vaccine Type Date Status Note Provider Nam e and Address Organization Details Recorded Time Pneumococcal conjugate PCV 13 7 completed Elaine gamboa [facility] & [place] 06/19/2023 11:40:00 Influenza, MDCK, trivalent, PF 7 completed ELSIE Sheppard [facility] & [place] 06/19/2023 11:40:18 Past Encounters Encounter ID Performer Location Encounter Start Date Encounter Closed Date Diagnosis/Indication Diagnosis SNOMED-CT Code Diagnosis ICD10 Code Diagnosis Note [id number] Shahrzad Becerra MD [facility] G -[address] [address] 03/06/2023 13:55:55 03/06/2023 15:38:30 Bilateral tinnitus [id number] 102 H93.13 patient has very bothersome tinnitus [...] Anxiety ab out body function or health 189953647 F41.8 Health Concerns Section Related Observation LastModified by Organization Detai ls LastModified Time None Recorded Concern Status LastModified by Organization Details LastModified Time None Recorded Advance Directives Directive None Recorded Payers Insurance Date Sequence Insurance Name Policy Number Policy Alexander Covered Member ID Alexander Member ID Guarantor Name 09/19/2024 1 [employer] (MEDICARE REPLACEMENT/ ADVANTAGE - PPO) Samara Hayward [id number] Notes Date Note Type Note Provider Name [...] have worked for her. She saw an deputy clerk of superior court in [place] (Nehal Caicedo) who wanted her to get [...] audiologists and Otolaryngologists. She reports seeing an nuclear chemistry technician in [place] and one at as well (prehaps Dr. Pena). She does report trying to wear a hearing aid however, she reports it made Sounds too loud and she immediately pulled them out of her ears and did not leave the office with the hearing aids. Shahrzad Becerra MD [address] [facility], [place], [address], [facility] - [place] & [place] 03/09/2023 11:00:13 OBGyn Episode No OBEpisode recorded.
--- OUTSIDE RECORDS SUMMARY | 2025-02-05 15:24 | XMS_ITS | Data Portability ---
Author Organization [facility] CL[facility] Address [address] [facility] [facility] [place] [address] Care Team Providers Care Sharepoint Application Developer Name Role Phone YARITZA MARIN Primary Care [...] time. We will continue to follow with EJNY [email or web address] Not available 12/18/2017 12:00:50 Plan of Treatment Reminders Order Date Submit Date Provider Last Modified By Organization Details Last Modified Time Details Appointments None recorde d. Lab urinaly sis, dipstic k, auto 018 12/14/19 18 [email or web address] 4 [facility] [place] Extended Services With [facility], [address] [place] [address] Dr Celeste, [place], [address], 8 20:43:45 culture , urine 018 12/14/19 18 NAHEED [facility], [address] [place] [address], [address], 8 08:44:07 Referral None recorde d. Procedures None recorde d. Surgeries None recorde d. Imaging None recorde d. Medication Orders None recorde d. Patient TargetsNo targets recorded. Patient Instructions Encounter Date Encounter Id Patient Instructions Last Modified By Organization Details Last Modified Time 12/13/2017 [id number] healthy together [email or web address] Not availa ble 12/13/2017 20:43:45 Urinary Tract Infection (UTI) in Women: Care Instructions [email or web address] Not available 12/13/2017 20:43:45 learning about high blood pressure [email or web address] Not available 12/13/2017 20:43:45 kidney stone: care instructions [email or web address] Not available 12/18/2017 11:59:52 learning about diet for kidney stone prevention Not available 12/18/2017 11:59:52 Reason for Referral None Reported. Results Created Date Observation Date Name Description Value Unit Range Abnormal Flag Note LastModifiedBy Organization Detail LastModifiedTime 12/14/19 18 12/13/2017 urina lysis , dipst ick, auto Unknown Analyte Yellow Not Available [facility] Extended Services With [address]este, [place], [address], 12/13/2017 18:12:50 12/14/19 18 12/13/2017 urina lysis , dipst ick, auto Unknown Analyte Clear Not Available [facility] Extended Services With [address]este, [place], [address], 12/13/2017 18:12:50 12/14/19 18 12/13/2017 urina lysis , dipst ick, auto Unknown Analyte 1.020 Not Available [facility] Extended Services With [address]este, [place], [address], 12/13/2017 18:12:50 12/14/19 18 12/13/2017 urina lysis , dipst ick, auto Unknown Analyte 5.0 Not Available [facility] Extended Services With [address] Celeste, [place], [address], 12/13/2017 18:12:50 12/14/19 18 12/13/2017 urina lysis , dipst ick, auto Unknown Analyte 500 Ruddy/ul (++) Not Available [facility] Extended Services With [address] Celeste, [place], [address], 12/13/2017 18:12:50 12/14/19 18 12/13/2017 urina lysis , dipst ick, auto Unknown Analyte Negati ve Not Available [facility] Extended Services With [address] [place], [address], 12/13/2017 18:12:50 12/14/19 18 12/13/2017 urina lysis , dipst ick, auto Unknown Analyte Negtiv e Not Available [facility] Extended Services With [address] [place], [address], 12/13/2017 18:12:50 12/14/19 18 12/13/2017 urina lysis , dipst ick, auto Unknown Analyte Normal Not Available [facility] Extended Services With [address] [place], [address], 12/13/2017 18:12:50 12/14/19 18 12/13/2017 urina lysis , dipst ick, auto Unknown Analyte Negati ve Not Available [facility] Extended Services With [address] [place], [address], 12/13/2017 18:12:50 12/14/19 18 12/13/2017 urina lysis , dipst ick, auto Unknown Analyte Normal Not Available [facility] Extended Services With [address] [place], [address], 12/13/2017 18:12:50 12/14/19 18 12/13/2017 urina lysis , dipst ick, auto Unknown Analyte Negati ve Not Available [facility] Extended Services With [address] [place], [address], 12/13/2017 18:12:50 12/14/19 18 12/13/2017 urina lysis , dipst ick, auto Unknown Analyte 50 Tony/ul Not Available [facility] [place] Extended Services With [address] Celeste, [place], [address], 12/13/2017 18:12:50 12/14/19 18 12/13/2017 urina lysis , dipst ick, auto Unknown Analyte Clean Catch Not Available [facility] Extended Services With [address] Celeste, [place], [address], 12/13/2017 18:12:50 12/14/19 18 12/13/2017 urina lysis , dipst ick, auto Unknown Analyte Automa paras Not Available [facility] Extended Services With [address]este, [place], [address], 12/13/2017 18:12:50 12/14/19 18 12/13/2017 cultu re, urine results [facility] e: CCUR Colle cted: 12/13 18:14 Site: Recei fawad : 12/14 09:06 URINE SCREE N(CUL TURE) FINAL 12/17 11:16 12/17 COLON Y COUNT : 10,00 0 - 100,0 00 CFU/M L Three or more isola rolo; mixed skin monique . Not Available [facility] [address] [facility], [place], [address], 12/17/2017 11:16:32 12/15/19 18 05/08/2017 CT, abdom en + pelvi s, w/o contr ast No observ ation record ed. [email or web address] Not Available 12/04 13:00:45 03/07/20 18 11/08/2017 CT, abdom en + pelvi s, w/o contr ast No observ ation record ed. BARCODE Not Available 2017 08:35:03 08/22/19 19 08/22/2018 fluor oscop y (PROC ) No observ ation record ed. [address] [facility] [place] [address] [place], [id number], 08/26/2018 07:53:35 08/29/19 19 08/29/2018 XR, abdom en, 1 view No observ ation record ed. [address] [facility] [place] [address] [place], [id number], 09/02/2018 15:41:08 09/12/19 19 09/12/2018 XR, abdom en, 1 view No observ ation record ed. [address] [facility] [place] [address] [place], [id number], 09/16/2018 15:23:48 Result Notes None recorded. Problems Name Problem SNOMED Code Status Onset Date Resolution Date Notes Provider Name and Address Organization Details Recorded Time Kidney stone 18863241 Active 018 Murelene Atul [facility] 12/13/2017 18:08:39 Problem Notes None recorded. Procedures Surgical History Date Name Laterality Status Provider Name and Address Organization Details Recorded Time Cholecystectomy completed Murelene Atul [facility] 12/13/2017 18:09:19 Appendectomy completed Murelene Atul [facility] 12/13/2017 18:09:22 Hysterectomy completed Murelene Atul [facility] 12/13/2017 18:09:27 Carpal tunnel surgery completed Murelene Atul [facility] 12/13/2017 18:09:35 Heart Surgery completed Murelene Atul [facility] 12/13/2017 18:09:43 Xcapsl ctrc rmvl cplx wo ecp completed Murelene Atul [facility] 12/13/2017 18:10:24 Imaging Results None recorded. Procedure Notes None recorded. Medical Equipment None Reported. Allergies Allergen ID Allergen Name Allergen Category Reaction Reaction Severity Criticality Documentation Date Start Date Code Code System Note Provider Name and Address Organization Details Recorded Time 740498 Keflex medicatio n Not available Not available Not available 06/30/2016201316 7 RxNorm Comme nt: Creat ed By: Yany Gentile paras Date: 014 1:57: 39 PM; Not Available [facility] 6 05:28:44 574499 Iodinated contrast media (substanc e) medicatio n Not available Not available Not available 12/13/2017 57383 2004 SNOMED Bo Pollard [facility] 8 18:06:57 Medications Name Sig Start [...] Body mass index (BMI) Body weight Systolic And Diastolic Provider Name and Address Organization Details Last Updated DateTime 12/13/2017 154.94 cm 34.2 kg/m2 78398.22 g 140/60 mm[Hg] Mathieumigel Atul [facility] 12/13/2017 18:06:44 Social History Question Answer Notes LastModified by Organizat ion Details LastModified Time Tobacco Smoking Status Former Smoker Bo Pollard bee, [facility] 12/13/2017 18:09:02 What Was The Date Of [...] SNOMED-CT Code Diagnosis ICD10 Code Diagnosis Note [id number] JEY SAM MD [facility] EXTENDED SERVICES [address] [facility],[place] [address] 12/13/2017 15:35:16 12/18/2017 12:30:05 Urinary tract infectious disease 86416998 N39.0 Kidney stone 79282787 N2 0.0 Health Concerns Section Related Observation LastModified by Organization Detai ls LastModified Time None Recorded Concern Status LastModified by Organization Details LastModified Time None Recorded Advance Directives Directive None Recorded Payers Insurance Date Sequence Insurance Name Policy Number Policy Alexander Covered Member ID Alexander Member ID Guarantor Name 12/17/2017 1 [employer] - CHOICECARE (PPO) [id number] 07/10/2021 1 [employer] (MEDICARE REPLACEMENT/A DVANTAGE - PPO) Samara Toledo [id number] [facility] 12/18/2017 GENERIC INSURANCE - MOVED-HOLD Samara Hayward [...] dysuria. She denies nocturia. JEY SAM MD [address] [place] [address], [phone], [facility] 12/18/2017 12:01:48 OBGyn Episode No OBEpisode recorded.
--- OUTSIDE RECORDS SUMMARY | 2025-02-05 15:24 | XMS_ITS | Data Portability ---
Author Organization [facility] Address [address] [place] [address] Care Team Providers Care Communication Studies Professor Name Role Phone ZANE RAMSAY Primary Care Provider [phone] ZAIN RUIZ Referring Provider [phone] Assessment Encounter Date Assessment Date Assessment LastModified by Organization Details LastModified Time 05/12/2024 05/12/2024 HPI: This is a 79-year-old female with chronic low back and leg pain She is referred by Dr. English for spinal cord submitted trial, prior surgical history includes lumbar fusion in 2002. This was performed in [place]. Injection therapy in the past at the [place] pain clinic with short-term benefit. No prior [...] Much of this encounter is an electronic trainer/santillan slation of spoken language to printed text. [...] fusion in 2002. This was performed in [place]. Injection therapy in the past at the [place] pain clinic with short-term benefit. No prior [...] clinic for sooner follow up if needed. [email or web address] Not available 09/04/2024 16:23:20 Plan of Treatment Reminders Order Date Submit Date Provider Last Modified By Organization Details Last Modified Time Details Appointments None recorded. Lab HbA1c (hemoglobi n A1c), blood 2024 025 [email or web address] [facility], [facility], [address] [place] [address], [address], 5 16:08:12 methicilli n resistant staphyloco ccus aureus, culture, nasal 2024 025 [facility], [facility], [address] [place] [address], [address], 5 16:08:12 HbA1c (hemoglobi n A1c), blood 2023 024 [email or web address] [facility], [facility], [address] [place], [address], 4 10:41:07 methicilli n resistant staphyloco ccus aureus, culture, nasal 2023 024 NAHEED [facility], [facility], [address] [place] [address], [place], [address], 4 07:22:[address] referral - Please eval for spinal cord stimulator . patient is requesting an in-person consult. please contact with any issues! Thank you! 2024 025 [email or web address] [facility], [address], [place], [address], 5 16:06:[address] referral 2023 024 [email or web address] [facility], [address], [place], [address], 4 10:40:08 Procedures spinal cord stimulator trial (PROC) - SCS Trial 1.) Psych: [facility] - referred 09/17/24 2.) Clearances : none 3.) Hold Meds: none 4.) Labs: A1C, MRSA [+], CBC [09/2024] *VANCO *MRI Tspine [pending scheduling ] 2024 025 [email or web address] Not available 5 16:07:13 remote therapeuti c monitoring to monitor musculoske letal system (PROC) 2024 025 [email or web address] Not available 5 16:23:42 remote therapeuti c monitoring to monitor musculoske letal system (PROC) 2023 024 [email or web address] Not available 4 08:57:18 spinal cord stimulator trial (PROC) 2023 024 Not available 4 10:40:59 Surgeries None recorded. Imaging MRI, thoracic spine, w/o contrast - Spinal Cord Stimulator Workup, please evaluate patency of thoracic canal for placement of percutaneo us stimulator lead, entry point T12/L1, terminatio n of tip likely T7 superior endplate [address], [address], [place], [address], 5 09:03:07 MRI, thoracic spine, w/o contrast - Spinal Cord Stimulator Workup, please evaluate patency of thoracic canal for placement of percutaneo us stimulator lead, entry point T12/L1, terminatio n of tip likely T7 superior endplate [address] ([facility]), [address], [place], [address], 4 10:14:33 Medication Orders Hibiclens 4 % topical liquid [email or web address] [place] [address] [address], [facility] [place], [address], 16:23:30 Hibiclens 4 % topical liquid 2023 025 [facility], [address] [place], [address], 15:12:39 Patient TargetsNo targets recorded. Patient Instructions Encounter Date Encounter Id Patient Instructions Last Modified By Organization Details Last Modified Time 05/12/2024 [id number] behavioral healt h screen* [email or web address] Not available 05/15/2024 11:30:55 Education and training for patient self-management by a qualified, nonphysician health dog daycare provider using a standardized curriculum, bcez-fc-oldg with the patient; individual patient* [email or web address] Not available 05/15/2024 11:31:26 spinal cord stimualtor trial information Not available 05/12/2024 16:43:57 09/04/2024 [id number] Education and training for patient self-management by a qualified, nonphysician health dog daycare provider using a standardized curriculum, tmcq-lj-ored with the patient; individual patient* [email or web address] Not available 10/08/2024 07:42:35 spinal cord stimualtor trial information Not available 09/04/2024 16:23:30 behavioral healt h screen* [email or web address] Not available 10/08/2024 07:42:35 Reason for Referral [...] Address Organization Details Recorded Time Lumbar spondylosis 594935365 Active 2023 Madeline Lagace null, [place] - [facility] 4 15:55:35 Chronic pain 37343294 Active 2023 Madeline Lagace null, [place] - [facility] 4 15:55:35 Lumbar radiculopathy 831592236 Active 2023 Madeline Lagace null, [place] - [facility] 4 15:55:35 Overweight 153309855 Active 2023 Madeline Lagace null, [place] - [facility] 4 15:55:37 Lumbar post-laminecto my syndrome 653307114 Active 2023 Madeline Lagace null, [place] - [facility] 4 16:32:20 Problem Notes None recorded. Procedures Surgical History Date Name Laterality Status Provider Name and Address Organization Details Recorded Time Appendectomy completed Tiffani Alvarado [place] - [facility] 05/08/2024 09:20:54 Carpal tunnel surgery completed Tiffani ZIMMERMAN - [facility] 05/08/2024 09:21:31 complete repair of rotator cuff completed Tiffani ZIMMERMAN - [facility] 05/08/2024 09:22:03 Hysterectomy completed Tiffani ZIMMERMAN - [facility] 05/08/2024 09:22:19 procedure on gallbladder completed Tiffani ZIMMERMAN - [facility] 05/08/2024 09:22:29 total replacement of hip completed Tiffani ZIMMERMAN - [facility] 05/08/2024 09:22:50 Imaging Results None recorded. Procedure Notes None recorded. Medical Equipment None Reported. Allergies Allergen ID Allergen Name Allergen Category Reaction Reaction Severity Criticality Documentation Date Start Date Code Code System Note Provider Name and Address Organization Details Recorded Time 832030 Bactroban medicatio n Not available Not available Not available 04/15/2024 37339 1 RxNorm Nayeli noemier ELSIE gamboa - [facility] 4 13:27:23 502494 Betadine medicatio n Not available Not available Not available 04/15/2024 05136 0 RxNorm Nayeli ELSIE dia - [facility] 4 13:27:29 429285 Keflex medicatio n Not available Not available Not available 04/15/2024 03676 7 RxNorm Nayeli ELSIE dia - [facility] 4 13:29:16 178620 nickel environme nt Not available Not available Not available 04/15/2024 55799 29 RxNorm Nayeli noemier bee, ELSIE - [facility] 4 13:29:21 Medications Name Sig [...] in Arterial blood by Pulse oximetry Systolic And Diastolic Provider Name and Address Organization Details Last Updated DateTime 5 154.94 cm 30.2 kg/m2 75769.7 8 g 76 /min 96 % 96 % 138/71 mm[Hg] Fausto Kaye [facility] 5 15:11:26 Date Recorded Body height Body mass index (BMI) Body weight Heart rate Oxygen saturation Oxygen saturation in Arterial blood by Pulse oximetry Systolic And Diastolic Provider Name and Address Organization Details Last Updated DateTime 4 154.94 cm 30.2 kg/m2 33065.7 8 g 79 /min 96 % 96 % 125/76 mm[Hg] Madeline Henry [facility] 4 15:57:10 Social History Question Answer Notes LastModified by Organizat ion Details LastModified Time Tobacco Smoking Status Never Smoker Tiffani gamboa [facility] 05/08/2024 09:20:39 Do You Have An Advance Directive? Yes Information not available 05/12/2024 What Type Of Diet Are You Following? REGULAR Information not available 05/12/2024 What Is The Highest Grade Or Level Of School You Have Completed Or The Highest Degree You Have Received? [id number] Information not available 05/12/2024 Do You Have A Medical Power Of Marketing Account Executive? Yes Information not available 05/12/2024 What Was The Date Of Your Most Recent Tobacco Screening? 05/12/2024 Information not available 05/12/2024 What Is Your Relationship Status? Information not available 05/12/2024 Sex: Unknown Functional Status Question Answer Note LastModified by Guide Financial ion Details LastModified Time Do you use [...] Disease N Gout N Seizure Disorder N Thyroid Disease N Atrial Fibrillation N Hernia N Head Trauma/Injury N COPD N Depression N Anxiety Disorder N Acid Reflux (GERD) N Cancer N Skin Disorder N Stroke N High Cholesterol N Liver Disease Y Rheumatoid Arthritis N Fibromyalgia N Headaches N Autoimmune Disease N Kidney Disease N Osteoarthritis N Neurosurgery N DVT N Peptic Ulcer Disease N Anemia N Heart Attack (NM) N Diabetes N Cardiomyopathy N Bleeding Disorder [...] SNOMED-CT Code Diagnosis ICD10 Code Diagnosis Note [id number] OSCAR STONE MD [place] [address] [place] [address] 05/12/2024 14:25:01 05/12/2024 17:28:44 Lumbar spondylosis 684034143 M47.816 Lumbar radiculopathy 128 692105 M54.16 Chronic pain 21043436 G8 9.29 Lumbar post-laminectomy syndrome 871862959 M96.1 [id number] OSCAR STONE MD [facility] [address] [place] [address] 09/04/2024 14:41:19 09/04/2024 15:51:07 Lumbar radiculopathy 448666894 M54.16 Chronic pain 25370157 G8 9.29 Lumbar post-laminectomy syndrome 836091339 M96.1 Health Concerns Section Related Observation LastModified by Organization Detai ls LastModified Time None Recorded Concern Status LastModified by Organization Details LastModified Time None Recorded Advance Directives Directive Y: Payers Insurance Date Sequence Insurance Name Policy Number Policy Alexander Covered Member ID Alexander Member ID Guarantor Name 09/08/2024 1 [employer] (MEDICARE REPLACEMENT/ ADVANTAGE - PPO) Samara Hayward [id number] Samara Hayward Notes Date Note Type Note [...] ADLsAble to bathe/groom without assistance.;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 Prior Imaging:MRI (01/14/2024) Lumbar Surgery:lumbar spinal fusion:; surgery 2002 Physical Therapy:completed all recommended PT visits; complete more than 6weeks; response to therapy: made pain/symptoms worse Current Analgesics:Tramado l not effective; Gabapentin not effective Medications History:pt takes ibuprofen Adverse Reactions:No nausea; No vomiting; No itching; No respiratory depression; No sexual dysfunction;Consti pation Other Conservative Treatments:heat: effective Prior Pain Management:yes:; [facility], heating pad helps while shes using it Oswestry Disability Index (SHAD)Score/Date Completed: (05/12/2024 60) For Female Patients:Are you ? 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 Prior Imaging:MRI (01/14/2024) Lumbar Surgery:lumbar spinal fusion:; surgery 2002 Physical Therapy:completed all recommended PT visits; complete more than 6weeks; response to therapy: made pain/symptoms worse Current Analgesics:Tramado l not effective; Gabapentin not effective Medications History:pt takes ibuprofen Adverse Reactions:No nausea; No vomiting; No itching; No respiratory depression; No sexual dysfunction;Consti pation Other Conservative Treatments:heat: effective Prior Pain Management:yes:; [facility], heating pad helps while shes using it Oswestry Disability Index (SHAD)Score/Date Completed: (05/12/2024 60) For Female Patients:Are you ? No pt states she is in pain. LEFTY BERNARDO [address] [place] [address], [address], [facility] 09/04/2024 16:24:01 OBGyn Episode No OBEpisode recorded.
--- NOTE | 2025-02-05 15:25 | CA_ITS ---
FINAL REPORT TECHNIQUE: extremity venous duplex was performed with augmentation and compression. CLINICAL HISTORY: cellulitis of right leg s/p fall, redness, swelling, wound FINDINGS: Proper flow is seen throughout the deep venous system. There is no evidence of deep venous thrombosis. IMPRESSION: No deep venous thrombosis of the right lower extremity. Reviewed, Interpreted and Dictated by Duncan House MD Transcribed by Jody Jeong Authenticated and [facility]
--- OUTSIDE RECORDS SUMMARY | 2025-02-05 15:25 | XMS_ITS | Clinical Summary ---
Author Organization Healthcare Address [address] [id number] Care Team Providers Care Dietetic Aide Name Role Phone Kathleen Sanderson MARGARITA Primary Care Provider [phone] Allergies Active Allergy Reactions Criticality Noted Date [...] r (1 - 1-dose 75+ series) 2021 [id number] Vaccine ( season) 2024 06/29/2021, 11/05/2020, 10/05/2020 [facility]-Influenza Vaccine (#1) 2025 Colonoscopy Discontinued 10/03/2016 [facility]-Colorectal Cancer Screening [...] Narrative 10/03/2016 Ordered by an unspecified provider. Historical Provider GI PROCEDURE ORDERABLES F inal Result from Last 3 Months or Most Recently Relevant to Health Maintenance Insurance [facility] MEDICARE Care Teams Dietetic Aide Relationship Specialty Start Date End Date Kathleen Sanderson APRN [address] [place] [address] [facility] - General 06/23/21
--- OUTSIDE RECORDS SUMMARY | 2025-02-05 15:25 | XMS_ITS | Data Portability ---
Author Organization [facility] Address [address] [place] [address] Assessment No assessment recorded. Plan of Treatment Reminders Order Date Submit Date Provider Last Modified By Organization Details Last Modified Time Details Appointments None recorded. Lab noninvasiv e colorectal cancer DNA + occult blood screening, QL, stool 2023 024 [email or web address] 3 [facility] (Cologuard Orders Only), [address], [address], [place], [address], 4 13:16:20 urinalysis , dipstick 2023 024 [facility], [address] [place] [address], [address], 4 14:15:11 culture, urine 2023 024 NAHEED [facility] ([place]), [facility] [place], [address], 4 01:06:52 vaginal pathogens panel, MARGOT+probe, vaginal fluid 2023 024 [email or web address] 3 [facility] ([place]), [facility] [place], [address], 4 13:16:04 Referral None recorded. Procedures None recorded. Surgeries None recorded. Imaging MAMMO, screening, digital, bilateral [email or web address] [place] [address] (Central Scheduling), [address] [place] [address] [place], [address], 13:41:56 DEXA [email or web address] [place] [address] (Central Scheduling), [address] [place] [address] [place], [address], 4 13:42:07 Medication Orders Cipro 500 mg tablet 2023 024 [facility] [place], [address], 14:15:09 Patient TargetsNo targets recorded. Patient InstructionsNo instructions recorded. Reason for Referral None Reported. Results Created Date Observation Date Name Description Value Unit Range Abnormal Flag Note LastModifiedBy Organization Detail LastModifiedTime 06/09/2006/12/2024 URINE CULTU RE, ROUTI NE urine culture, routine Final report abnormal Not Available [facility] ([facility]) [address] [facility], [place], [address], 06/12/2024 01:06:52 06/09/20 24 06/12/2024 URINE CULTU [...] ng units per mL Not Available [facility] ([facility]) [address] [facility], [place], [address], 06/12/2024 01:06:52 06/09/20 24 06/12/2024 URINE CULTU [...] thopr im/Gill lfa S Not Available [facility] ([facility]) [address] [facility], [place], [address], 06/12/2024 01:06:52 06/09/20 24 06/09/2024 urina lysis , dipst ick Leukocytes Small Not Available [address], [address], 06/09/2024 13:34:38 06/09/20 24 06/09/2024 urina lysis , dipst ick Nitrite negati ve Not Available [address], [address], 06/09/2024 13:34:38 06/09/20 24 06/09/2024 urina lysis , dipst ick Urobilinogen .2 Not Available [address], [address], 06/09/2024 13:34:38 06/09/20 24 06/09/2024 urina lysis , dipst ick Protein Negati ve Not Available [address], [address], 06/09/2024 13:34:38 06/09/20 24 06/09/2024 urina lysis , dipst ick pH 5.5 Not Available [address], [address], 06/09/2024 13:34:38 06/09/2006/09/2024 urina lysis , dipst ick Blood Small Not Available [address], [address], 06/09/2024 13:34:38 06/09/2006/09/2024 urina lysis , dipst ick Specific [place] 1.025 Not Available [address], [address], 06/09/2024 13:34:38 06/09/2006/09/2024 urina lysis , dipst ick Ketone Negati ve Not Available [address], [address], 06/09/2024 13:34:38 06/09/2006/09/2024 urina lysis , dipst ick Bilirubin Small Not Available [address], [address], 06/09/2024 13:34:38 06/09/2006/09/2024 urina lysis , dipst ick Glucose Negati ve Not Available [address], [address], 06/09/2024 13:34:38 06/09/2006/09/2024 urina lysis , dipst ick Appearance Clear Not Available [address], [address], 06/09/2024 13:34:38 06/09/20 24 06/09/2024 urina lysis , dipst ick Color Yellow Not Available [address], [place], [address], 06/09/2024 13:34:38 Result Notes None recorded. Problems Name Problem SNOMED Code Status Onset Date Resolution Date Notes Provider Name and Address Organization Details Recorded Time Blood in urine 45533060 Active 2023 Crispin Boyd MD [address] [place] [address], [address], [employer] 13:44:38 Screening mammography Active 2023 Crispin Boyd MD [address] [place] [address], [address], [employer] 13:44:40 Screening for osteoporosis Active 2023 Crispin Boyd MD [address] [place] [address], [address], [employer] 13:44:42 Screening for malignant neoplasm of colon Active 2023 Crispin Boyd MD [address] [place] [address], [address], [employer] 13:44:44 Relaxation of pelvic floor 385044454 Active 2023 Crispin Boyd MD [address] [place] [address], [address], [employer] 14:15:17 Problem Notes None recorded. Procedures Surgical History Date Name Laterality Status Provider Name and Address Organization Details Recorded Time Pessary Check completed Crispin Boyd MD [address] [place] [address], [address], [employer] 06/10/2024 08:59:35 Imaging Results None recorded. Procedure Notes None recorded. Medical Equipment None Reported. Allergies Allergen ID Allergen Name Allergen Category Reaction Reaction Severity Criticality Documentation Date Start Date Code Code System Note Provider Name and Address Organization Details Recorded Time 06194 Keflex medicatio n Not available Not available Not available 06/09/202467564 7 RxNorm Crystal Lauryn bee, [employer] 4 13:37:42 60744 Betadine medicatio n Not available Not available Not available 06/09/2024 0 RxNorm Crystal Lauryn bee, [employer] 4 13:46:32 52202 Hibiclens medicatio n Not available Not available Not available 06/09/2024 72262 2 RxNorm Crystal Lauryn bee, [employer] 4 13:47:09 Medications Name Sig Start Date [...] Updated DateTime 4 154.94 cm 30 kg/m2 54989.7 5 g 72 /min 99 % 99 % 130/72 mm[Hg] Pati Combs [employer] 4 14:22:05 Social History Question Answer Notes LastModified by Organizat ion Details LastModified Time Tobacco Smoking Status Never Smoker Pati gamboa, [employer] 06/09/2024 13:30:00 What Was The Date Of Your Most Recent Tobacco Screening? 06/09/2024 [email or web address] Information not available 06/09/2024 What Is Your Relationship Status? Information not available 06/09/2024 Has Tobacco Cessation Counseling Been Provided? No [email or web address] Information not available 06/09/2024 Sex: Unknown Functional Status Question Answer Note LastModified by Organization D etails LastModified Time Do you or have you ever used any other forms of tobacco or nicotine? No [email or web address] Information not available 06/09/2024 Mental Status None [...] or 50 mcg/0.25mL dose 1 completed Pati Revelese null, [employer] 06/09/2024 13:47:52 COVID-19, mRNA, LNP-S, PF, 100 mcg/0.5mL dose or 50 mcg/0.25mL dose 1 completed Pati Fieldzie null, [employer] 06/09/2024 13:47:52 COVID-19, mRNA, LNP-S, PF, 100 mcg/0.5mL dose or 50 mcg/0.25mL dose 1 completed Pati Fieldzie null, [employer] 06/09/2024 13:47:52 pneumococcal polysaccharide PPV23 0 completed Pati Fieldzie null, [employer] 06/09/2024 13:47:52 Tdap 3 completed Pati Combs null, [employer] 06/09/2024 13:47:52 Pneumococcal conjugate PCV 13 7 completed Pati Combs null, [employer] 06/09/2024 13:47:52 Influenza, high-dose, trivalent, PF 3 completed Pati Combs null, [employer] 06/09/2024 13:47:52 Influenza, high-dose, trivalent, PF 8 completed Pati Combs null, [employer] 06/09/2024 13:47:52 Influenza, high-dose, trivalent, PF 0 completed Pati Combs null, [employer] 06/09/2024 13:47:52 Influenza, high-dose, trivalent, PF 9 completed Pati Combs null, [employer] 06/09/2024 13:47:52 Past Encounters Encounter ID Performer Location Encounter Start Date Encounter Closed Date Diagnosis/Indication Diagnosis SNOMED-CT Code Diagnosis ICD10 Code Diagnosis Note [id number] Crispin Boyd MD [address] [address] 06/09/2024 13:30:51 06/09/2024 14:29:09 Blood in urine 15071098 R31.9 By history the patient notes blood [...] associated third-degr ee cystocele. Screening mammography 24 020253 Z12.31 This 71-year-ol d man with yeah there is no doing better right effusion tell me with patient has not had a mammogram in over 10 years. Monthly self breast exam strongly advised. She has no family history of breast cancer Screening for osteoporosis 269415041 Z13.820 Patient does not recall ever having had a bone density study. I have advised she take 1200 mg calcium daily along with vitamin D3. Screening for malignant neoplasm of colon 685703828 Z12.11 Patient states she had a colonoscop y more than 10 years ago but has not had any follow-up since. She declines a colonoscop y at this point. I have offered her a Cologuard instead ,noting its limitation s. Patient is agreement with this. 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 She originally stated she did not know of this but on further questionin g an attempt was made with pessary placement [address] Valdez in [place]. She was fitted today with a #4 [...] (MEDICARE REPLACEMENT/A DVANTAGE - PPO) Samara Hayward [id number] Samara Hayward 06/09/2024 MEDICARE A-[place]: [employer] [facility] Samara Hayward [id number] Samara Hayward Notes Date Note Type [...] in over 10 years. Crispin Boyd MD [address] [place] [address], [address], [facility] [employer] 06/10/2024 09:00:03 OBGyn Episode No OBEpisode recorded.
[2025-02-05 15:28] VITALS: BP 152/74; PULSE 83; RESP 15; TEMP 36.6; O2SAT 95; BMI 30.2
--- NOTE | 2025-02-05 15:31 | HMH.EDGENADL ---
Discharge Plan Disposition Patient Disposition: Home, Self-Care Condition: Good Prescriptions Prescriptions: New furosemide [Lasix] 20 mg tablet 20 mg PO DAILY 7 Days Qty: 7 0RF No Action furosemide 20 mg tablet 20 mg PO DAILY Qty: 30 5RF albuterol sulfate 90 mcg/actuation HFA aerosol inhaler 2 inh inhalation Q6H PRN (Reason: shortness of breath or wheezing) 90 Days Qty: 8.5 2RF azelastine 137 mcg (0.1 %) spray,non-aerosol 2 spray intranasal HS 90 Days Qty: 30 2RF Rx Instructions: administer into each nostril fluticasone propionate [Flonase Allergy Relief] 50 mcg/actuation spray,suspension 2 spray intranasal DAILY 90 Days Qty: 16 2RF Rx Instructions: administer into each nostril ipratropium-albuterol 0.5 mg-3 mg(2.5 mg base)/3 mL solution for nebulization 3 ml inhalation Q6H PRN (Reason: shortness of breath or wheezing) Qty: 180 3RF lorazepam 0.5 mg tablet 0.5 mg PO TID Rx Instructions: Take 1/2 tablet by mouth 3 times daily as needed for nervousness and ringing in the ears betamethasone dipropionate 0.05 % cream topical ONCE Patient Comments: APPLY CREAM TOPICALLY ONCE DAILY tramadol 50 mg tablet 50 mg PO TID PRN mirtazapine 15 mg tablet 15 mg PO HS Qty: 30 2RF sennosides [senna] 8.6 mg tablet 8.6 mg PO BID PRN (Reason: Constipation) prednisone 20 mg tablet 20 mg PO BID 4 Days Qty: 8 0RF polyethylene glycol 3350 17 gram/dose powder 17 g PO DAILY PRN (Reason: constipation) Qty: 510 5RF amoxicillin 500 mg capsule 1,000 mg PO BID Qty: 40 0RF atorvastatin 20 mg tablet 20 mg PO HS Qty: 90 1RF potassium chloride [Klor-Con M20] 20 mEq tablet,ER particles/crystals 20 meq PO DAILY Qty: 90 1RF lisinopril 10 mg tablet 10 mg PO BID Qty: 90 1RF clonazepam 1 mg tablet 1 mg PO BID PRN (Reason: Nervousness) Qty: 90 0RF Rx Instructions: 1 mg twice a day and 30 minutes before bedtime triamcinolone acetonide 0.1 % cream 1 applic topical BID PRN (Reason: itching) Qty: 453.6 0RF doxycycline hyclate 100 mg capsule 100 mg PO BID 10 Days Qty: 20 0RF Referrals Follow up/Referrals: Nabeel Rios MD [Primary Care Provider, Medical] - See instructions Activity Restrictions/Add. Instructions Additional Instructions/Restrictions: You were evaluated in the emergency department today. As we discussed, it is imperative that you follow-up closely with primary care as well as with wound care for further assessment. You need regular wound care with physical therapy to help get this healed. It is very important that you keep your legs elevated. Please keep it elevated and keep a compressive dressing on there. I recommend a layer of nonadherent dressing such as telfa followed by a compressive wrap up to your knee, such as the dressing applied here. Change the dressings if they become saturated. Please call wound care as soon as possible to get this scheduled since your PCP has already set you up with a referral. Continue taking the antibiotics prescribed to you by your primary care provider. I am prescribing you an increased dose of your fluid pill to try and help get some of this fluid off of you for the next week. Return to the emergency department for new or worsening symptoms. Please call [phone] and ask to be directed to wound care to schedule your appointment since you have already been provided a referral. Clinical Impressions Clinical Impression: Localized swelling of right lower leg Instructions Patient Instructions: DI for Edema Due to Venous Stasis, DI for Dependent Edema, DI for Peripheral Edema-Unilateral, Venous Stasis Ulcer Print Language Print Language: [place]guill[place] Discharge ED Provider: Magali Jimenez General Adult HPI General Chief complaint: PAIN Stated complaint: Cellulitis,possible DVT Time Seen by Provider: 02/05/25 15:19 History of Present Illness HPI narrative: This patient is a 79-year-old female with a history of COPD, GERD, CAD, chronic recurrent right lower extremity cellulitis presented to the emergency department for evaluation of concern for worsening redness, pain, and swelling of her right lower leg. She notes that she was seen by her primary care provider 2 days ago and started on Augmentin and doxycycline, but the swelling, redness, and warmth acutely got worse since yesterday. She also notes that she is having chills. No new chest pain, shortness of breath, or other concern. She notes that she has multiple open areas on her right lower leg that are weeping. She has been treating it with Neosporin. She tried to get in with wound care but states that she is not been able to schedule an appointment. Related Data Home Medications ?Medication ?Instructions ?Recorded ?Confirmed sennosides 8.6 mg tablet (senna) 8.6 mg PO BID PRN Constipation 02/26/19 02/05/25 betamethasone dipropionate 0.05 % applic topical ONCE 01/06/25 02/05/25 topical cream lorazepam 0.5 mg tablet 0.5 mg PO TID 01/06/25 02/05/25 tramadol 50 mg tablet 50 mg PO TID PRN 01/06/25 02/05/25 Previous Rx's ?Medication ?Instructions ?Recorded furosemide 20 mg tablet 20 mg PO DAILY swelling #30 tabs 12/04/23 atorvastatin 20 mg tablet 20 mg PO HS Cholesterol #90 tabs 08/20/24 albuterol sulfate 90 mcg/actuation 2 inh inhalation Q6H PRN shortness 08/28/24 aerosol inhaler of breath or wheezing 90 days #8.5 grams azelastine 137 mcg (0.1 %) nasal 2 spray intranasal HS 90 days #30 08/28/24 spray mL fluticasone propionate 50 2 spray intranasal DAILY 90 days 08/28/24 mcg/actuation nasal #16 grams spray,suspension (Flonase Allergy Relief) ipratropium 0.5 mg-albuterol 3 mg 3 ml inhalation Q6H PRN shortness 08/28/24 (2.5 mg base)/3 mL nebulization of breath or wheezing #180 mL soln potassium chloride 20 mEq 20 meq PO DAILY #90 tabs 09/15/24 tablet,extended release(part/cryst) (Klor-Con M) mirtazapine 15 mg tablet 15 mg PO HS #30 tabs 10/09/24 triamcinolone acetonide 0.1 % 1 applic topical BID PRN itching 11/08/24 topical cream #453.6 grams prednisone 20 mg tablet 20 mg PO BID 4 days #8 tabs 11/09/24 lisinopril 10 mg tablet 10 mg PO BID #90 tabs 12/05/24 polyethylene glycol 3350 17 17 g PO DAILY PRN constipation 12/17/24 gram/dose oral powder #510 grams clonazepam 1 mg tablet 1 mg PO BID PRN Nervousness #90 01/23/25 tabs doxycycline hyclate 100 mg capsule 100 mg PO BID 10 days #20 caps 01/29/25 amoxicillin 500 mg capsule 1,000 mg (2 x 500 mg) PO BID #40 02/03/25 caps furosemide 20 mg tablet (Lasix) 20 mg PO DAILY 1 week #7 tabs 02/05/25 Allergies Allergy/AdvReac Type Severity Reaction Status Date / Time adhesive tape Allergy Severe Hives Verified 02/05/25 14:49 chlorhexidine (From Allergy Severe RASH Verified 02/05/25 14:49 Hibiclens) Iodinated Contrast Media Allergy Intermediate Unknown Verified 02/05/25 14:49 (IODINATED CONTRAST MEDIA - allergy IV DYE) reaction povidone-iodine (From Allergy Intermediate I-RASH Verified 02/05/25 14:49 BETADINE) cephalexin Allergy Unknown Unknown Verified 02/05/25 14:49 allergy reaction bismuth tribromophenate Allergy Rash Verified 02/05/25 14:49 (From Xeroform) petrolatum,white (From Allergy Rash Verified 02/05/25 14:49 Xeroform) [facility] Disclaimer: The information contained in this section may have been updated after the patient was seen, as this information can be updated by other users. Medical History Rash and nonspecific skin eruption Cystocele with prolapse Vulvovaginal pain Vulvar lesion Meniere disease CAD (coronary artery disease) Claudication Asthma Dyspnea on exertion Cataract Sleep apnea Migraine Anxiety Osteoarthritis History of diverticulitis Edema History of anemia Foot pain, bilateral Multiple pulmonary nodules Wheezing Hypertension Dizziness Surgical History Hx of spinal fusion History of bladder repair surgery History of left hip replacement Hx of right coronary artery stent placement Hx of shoulder surgery History of carpal tunnel surgery of right wrist History of appendectomy History of cataract surgery Hx of cardiac cath H/O: hysterectomy Hx of cholecystectomy Family History Mother Rheumatoid aortitis Family/Other Heart attack Social History Smoking Status: Never smoker alcohol intake: never substance use type: denies use current occupational status: retired Travel in the last 8 weeks?: None housing: house current occupational exposures/hazards: No caffeine: Yes Have you lived/traveled outside [place] in past 30 days?: No Contact w/someone who lives/traveled outside US past 30 days?: No Exposure to someone with infectious disease in past 14 days?: No Do you have a fever (greater than 100.4 F or 38 C)?: No Have you tested positive for COVID-19?: No Exposed to someone with COVID-19 in past 14 days?: No Do you have a sore throat?: No Do you have a cough?: No Do you have any weakness?: No Do you have any diarrhea?: No Are you experiencing any unusual bleeding?: No Do you have any muscle aches/pain?: No Do you have any abdominal pain?: No Are you experiencing loss of taste or smell?: No Other Medical History Have you received the Flu Vaccine for this season: No Have you received the Pneumonia Vaccine: Yes ROS Obtained: Yes All systems reviewed & no additional complaints except as documented Physical Exam General General appearance: alert and in no apparent distress Head Head exam: atraumatic and normocephalic Eye Eye exam: Present normal appearance, PERRL and EOMI ENT ENT exam: Present normal exam, normal oropharynx, mucous membranes moist and normal external ear exam Neck Neck exam: Present normal inspection, full ROM and trachea midline; Absent tenderness Chest Chest inspection: Present normal inspection and symmetric chest wall rise; Absent tenderness Respiratory Respiratory exam: Present normal lung sounds bilaterally; Absent respiratory distress, wheezes, stridor or accessory muscle use Cardiovascular Cardiovascular exam: Present regular rate and normal rhythm Abdominal Exam Abdominal exam: Present soft; Absent distention, tenderness or guarding Extremities Exam Extremities exam: Present full ROM, tenderness, normal capillary refill, edema and other (Swollen, red, erythematous right lower leg with multiple open areas weeping clear serous fluid) Back Exam Back exam: Present normal inspection and full ROM; Absent tenderness Neurological Exam Neurological exam: Present alert, oriented X3, CN II-XII intact and normal gait; Absent motor sensory deficit Psychiatric Psychiatric exam: Present normal affect and normal mood Skin Skin exam: Present warm and dry Medical Decision Making Medical Records Medical records reviewed: Yes I reviewed the patient's medical records. Screening: Per USPSTF and CDC recommendations, given the prevalence of disease in our region, it is our hospital?s policy to screen for HIV and viral Hepatitis for all patients aged 18 and over and those with ongoing risk factors. Agustin Inquiry Pt receiving controlled substance: No Vital Signs: 02/05/25 15:28 02/05/25 16:00 02/05/25 16:30 Temperature 97.8 F Temperature Source Oral Pulse Rate 75 75 Pulse Rate [Right Radial] 83 Respiratory Rate 15 16 16 Blood Pressure 136/62 129/61 Blood Pressure [Right Arm] 152/74 H Blood Pressure Mean 86 83 Blood Pressure Mean [Right Arm] 100 Blood Pressure Source Blood Pressure Source [Right Arm] Automatic Cuff Blood Pressure Position Blood Pressure Position [Right Arm] Supine 02 Sat by Pulse Oximetry 95 96 96 Oxygen Delivery Method Room Air Room Air Room Air 02/05/25 18:06 Temperature 98.0 F Temperature Source Oral Pulse Rate 78 Pulse Rate [Right Radial] Respiratory Rate 18 Blood Pressure 135/85 Blood Pressure [Right Arm] Blood Pressure Mean Blood Pressure Mean [Right Arm] Blood Pressure Source Automatic Cuff Blood Pressure Source [Right Arm] Blood Pressure Position Supine Blood Pressure Position [Right Arm] 02 Sat by Pulse Oximetry Oxygen Delivery Method Room Air Lab Data Lab results reviewed: Yes I reviewed the patient's lab results. Lab Results 02/05/25 15:33: WBC 8.9, RBC 4.33, Hgb 14.0, Hct 43.0, MCV 99.3 H, MCH 32.3 H, MCHC 32.6, RDW 13.7, Plt Count 212, MPV 11.4 H, Neut % (Auto) 69.6, Lymph % (Auto) 15.0, [place] % (Auto) 8.0, Eos % (Auto) 6.5, Baso % (Auto) 0.7, Neut # (Auto) 6.2, Lymph # (Auto) 1.3, [place] # (Auto) 0.7, Eos # (Auto) 0.6 H, Baso # (Auto) 0.1, ESR 15, Sodium 140, Potassium 3.7, Chloride 103, Carbon Dioxide 29, Anion Gap 11.7, BUN 16, Creatinine 0.70, Estimated Creat Clear 53, Estimated GFR 81, Est GFR ( Amer) 98, Glucose 95, Calcium 9.1, Total Bilirubin 0.8, AST 27, ALT 15, Alkaline Phosphatase 95, Total Protein 6.9, Albumin 4.2, Globulin 2.7, Albumin/Globulin Ratio 1.6, HCV Ab ABENA w/Rflx PCR Qn Negative, HIV Ag/Ab Combo Qual Negative 02/05/25 16:55: Lactate 1.1 02/05/25 15:33 02/05/25 15:33 Orders (Tests/Meds): ED MEDICATIONS Discontinued Medications Generic Name Dose Route Start Last Admin Trade Name Aniya PRN Reason Stop Dose Admin Acetaminophen 1,000 mg 02/05/25 16:13 02/05/25 16:43 Acetaminophen 500mg Tab PO 02/05/25 16:14 1,000 mg ONCE ONE Administration Ketorolac Tromethamine 15 mg 02/05/25 16:13 02/05/25 16:43 Ketorolac 30mg/Ml Vial IV 02/05/25 16:14 15 mg ONCE ONE Administration ORDERS Category Date Time Status CRP [C-Reactive Protein] Stat Lab 02/05/25 15:33 Results Complete Blood Count Auto Diff Stat Lab 02/05/25 15:33 Completed Comprehensive Metabolic Panel Stat Lab 02/05/25 15:33 Results ESR [Erythrocyte Sedimentation Rate] Stat Lab 02/05/25 15:33 Completed HIV Combo Stat Lab 02/05/25 15:33 Completed Hepatitis C Ab Qual. W/ RFX Stat Lab 02/05/25 15:33 Completed Lactic Acid Stat Lab 02/05/25 16:55 Completed Blood Culture Stat Micro 02/05/25 15:52 Received CA venous doppler LE RT Stat Y 02/05/25 15:25 Completed Medical Decision Narrative: In summary, this patient is a 79-year-old female presenting to the Emergency Department for evaluation of worsening redness, pain, and swelling to the right lower leg after initiating antibiotics recently for cellulitis. Differential diagnoses considered include but are not limited to cellulitis, contact dermatitis, allergic reaction, DVT, venous insufficiency, sepsis. Ruling out the most morbid conditions drove assessment. It should be noted patient's history includes CAD, COPD, claudication, M?ni?re's disease, recurrent and chronic right lower extremity cellulitis, hypertension which may or may not be at goal therapy. This complicates all aspects of care by increasing patient's risk for morbidity. I reviewed patient's past medical records and noted evaluations as early as November for issues with the right lower leg. It appears to have healed up pretty well until an injury 01/29/2025. On exam, the patient is nontoxic-appearing sitting upright in no acute distress. She does have impressive swelling to the right lower leg with multiple weeping open areas draining clear serous fluids. She is warm well-perfused distally with intact pulses, all compartments are soft. Workup included CBC, CMP, ESR, CRP, lactic acid, blood cultures, DVT ultrasound of the right lower extremity. Patient was given oral Tylenol and IV Toradol for symptomatic improvement of pain. I independently interpreted ultrasound prior to the radiologist read and noted no DVT. Please see their read for final interpretation. Labs were obtained that demonstrated reassuring CBC with no significant leukocytosis or anemia, reassuring chemistry with nothing acutely concerning at this time. Inflammatory markers are reassuring. DVT ultrasound is negative for blood clot.. Ultimately, work appears reassuring. I feel the patient likely has venous stasis/lymphedema complicating her care and she would benefit from wound care evaluation on an outpatient basis. She already has a referral according to her primary care provider, but she states she has just been having difficulty getting an appointment scheduled because she could not get anyone to answer the phone. Advised that she call them Sunday soon as they open to schedule an appointment. Wound was dressed here with silver alginate and a compressive Evan wrap. She was given instructions for wound care at home as well as lower extremity elevation. To help with the swelling in the setting of chronic fluid retention, I did increase her Lasix for 1 week. I advise that she continue her antibiotics prescribed by her primary care provider, as I do not feel that she is failed outpatient antibiotics and I am not convinced that this is all cellulitic. She was discharged with strict return precautions and instructions for close PCP and wound care follow-up. Critical Care Critical Care Time Critical Care Time: No
[2025-02-05 15:46] LABS: Albumin Level 4.2 g/dl (3.5-5.0); Chloride 103 mmol/L (98-107); Potassium 3.7 mmoL/L (3.5-5.1); Sodium 140 mmol/L (136-145)
[2025-02-05 15:48] LABS: Blood Urea Nitrogen 16 mg/dl (7-17); Creatinine Clearance Estimated 53 mL/min (50-200); Creatinine,Serum 0.70 mg/dl (0.52-1.04); Estimated Glomerular Filt Rate 81 ml/min (>60); GFR (African American) 98 ML/MIN (>60)
[2025-02-05 15:49] LABS: Alanine Aminotransferase 15 U/L (12-78); Albumin/Globulin Ratio 1.6 (1.1-1.8); Alkaline Phosphatase 95 U/L (38-126); Anion Gap 11.7 mEq/L (5-15); Aspartate Amino Transferase 27 U/L (14-36); Bilirubin,Total 0.8 mg/dl (0.2-1.3); Calcium 9.1 mg/dl (8.4-10.2); Carbon Dioxide 29 mmol/L (22.0-30.0); Globulin 2.7 g/dL (1.3-3.2); Glucose 95 mg/dl (74-100); Total Protein,Serum 6.9 g/dl (6.3-8.2)
[2025-02-05 15:50] LABS: Hematocrit 43.0 % (37.0-47.0); Hemoglobin 14.0 g/dL (12.2-16.2); Immature Granulocytes % 0.2 %; Mean Corpuscular HGB Conc 32.6 g/dL (31.8-35.4); Mean Corpuscular Hemoglobin 32.3 pg (27.0-31.2); Mean Corpuscular Volume 99.3 fl (81-99); Nucleated Red Blood Cells % 0 %; Platelet Count 212 K/mm3 (142-424); Red Blood Count 4.33 M/mm3 (4.20-5.40); Red Cell Distribution Width-SD 50.4 fL; White Blood Count 8.9 K/mm3 (4.8-10.8)
[2025-02-05 16:00] VITALS: BP 136/62; PULSE 75; RESP 16; O2SAT 96
[2025-02-05 16:30] VITALS: BP 129/61; PULSE 75; RESP 16; O2SAT 96
[2025-02-05] MEDS: ACETAMINOPHEN 500MG TAB 1000 MG PO (16:43)
[2025-02-05] MEDS: KETOROLAC 30MG/ML VIAL 15 MG IV (16:43)
[2025-02-05 17:02] LABS: Hepatitis C Ab Qual. W/ RFX NEGATIVE (Negative)
[2025-02-05 18:06] VITALS: BP 135/85; PULSE 78; RESP 18; TEMP 36.7; O2SAT 99
--- NOTE | 2025-02-05 18:06 | PC.NURSE ---
patients right lower leg wrapped with silveralgenate dressing, soft roll and patricia wrap
[2025-02-11 12:23] LABS: C-Reactive Protein < 1.0 mg/L (0-4)
== END 2025-02-05 18:07 | disposition home or self-care (01) ==
PROVIDERS: Emergency Provider Emergency Medicine; PCP Internal Medicine
DX: R22.41 Localized swelling, mass and lump, right lower limb (principal); M79.604 Pain in right leg; I10 Essential (primary) hypertension
CPT/HCPCS: 80053; 83605; 85025; 85651; 86140; 86803; 87040; 87389; 93971; 96374; 99284; J1885

== ENCOUNTER 2025-02-18 14:35 | Outpatient (CLI) | payer MEDICARE, SELFPAY ==
--- OUTSIDE RECORDS SUMMARY | 2025-02-18 14:37 | XMS_ITS | Clinical Summary ---
Author Organization Healthcare Address [address] [id number] Care Team Providers Care Environmental Health Technician Name Role Phone Kathleen Sanderson MARGARITA Primary Care Provider [phone] Allergies Active Allergy Reactions Criticality Noted Date [...] r (1 - 1-dose 75+ series) 2021 [id number] Vaccine ( season) 2024 06/29/2021, 11/05/2020, 10/05/2020 [...] Most Recently Relevant to Health Maintenance Insurance [facility] MEDICARE Care Teams Environmental Health Technician Relationship Specialty Start Date End Date Kathleen Sanderson APRN [address] [place] [address] [facility] - General 06/23/21
--- OUTSIDE RECORDS SUMMARY | 2025-02-18 14:37 | XMS_ITS | Clinical Summary ---
Author Organization [facility] Address [facility] [place] [address] Care Team Providers Care Patient Service Coordinator Name Role Phone Khadar Quintana MD Primary Care Provider + [phone] Source Comments This information has been disclosed [...] therelease of HIV test results or diagnoses. [id number] Allergies Active Allergy Reactions Criticality Noted Date [...] Insurance [employer] MEDICARE Care Teams Patient Service Coordinator Relationship Specialty Start Date End Date Khadar Quintana MD [address] [place] [id number] PCP - General Internal Medicine 05/30/22
[2025-02-20 07:42] LABS: Free Kappa Lt Chains,Ur 31.47 mg/L (1.17-86.46); Free Lambda Lt Chains,Ur 6.12 mg/L (0.27-15.21)
== END 2025-02-18 23:59 | disposition home or self-care (01) ==
LOC: LAB 14:36
PROVIDERS: PCP Internal Medicine; Visit Provider Internal Medicine Medical Oncology
DX: E53.8 Deficiency of other specified B group vitamins (principal); D72.829 Elevated white blood cell count, unspecified
CPT/HCPCS: 36415; 83521

== ENCOUNTER 2025-02-21 17:33 | Emergency (ER) | payer MEDICARE, SELFPAY ==
--- OUTSIDE RECORDS SUMMARY | 2024-11-08 17:30 | XMS_ITS ---
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 Name Role Phone Khadar Quintana Primary Care Provider [phone] Migration, Provider Unavailable Unavailable Allergies Allergen (clinical drug ingredient) Drug/Non Drug Allergy documented on EMR Reaction Allergy Type Onset Date Status ALL TAPE- EXCEPT PAPER TAPE (uncoded) rash Allergy Active IV DYE (uncoded) rash Allergy Act etelvina cephalexin Cephalexin tachypnea, hives Drug Allergy Active chlorhexidine Hibiclens rash Drug Allergy Act etelvina [facility] Conversion Encounter Medications Medication SIG (Take, [...] Duration: 90 days 07/11/2022 Active POTASSIUM CHLORIDE ([id number] M20) 20 MEQ TAKE 1 TABLET BY [...] Active Encounters Encounter Location Date Provider Diagnosis [facility] FISH [address] [facility] [address] [place] [address] 11/08/2024 Provider Migration MONI (generalized anxiety disorder) [...] Notes * Samara HAYWARDDOB:1945 (79 yo F)Acc No.[id number]:11/08/2024 Patient: Samara CASTILLO Provider: Robles andino Migration :1945 A ge:79 Y S ex:Female Date:11/08/2024 Address[address] [place], [id number] Pcp:Khadar Quintana Subjective: * Chief Complaints: * [...] times a day , Taking POTASSIUM CHLORIDE ([id number] M20) 20 MEQ TABLET, EXTENDED RELEASE TAKE [...] Electronic signature of Waldemar deluca Migration on 02/21/2025 at 05:42 PM EDT Sign off status: Pending * Provider: Robles andino Migration Date: 0 11/08/2024 Generated for Rona robison/[place]/Sandy on: 02/21/2025 05:42 PM EDT
--- NOTE | 2025-02-21 17:41 | ED_ITS ---
<Statement entered by Ciara Hudson DO - 02/21/25 21:27> I was consulted by the GENESIS, and we discussed the complexity of problems being addressed. I approve the treatment and management plan for this patient's care in the emergency department, thus performing a substantial portion of the medical decision making. Ciara Hudson DO Discharge Plan Disposition Patient Disposition: Home, Self-Care Condition: Good Prescriptions Prescriptions: New cefdinir 300 mg capsule 300 mg PO BID 10 Days Qty: 20 0RF No Action albuterol sulfate 90 mcg/actuation HFA aerosol inhaler 2 inh inhalation Q6H PRN (Reason: shortness of breath or wheezing) 90 Days Qty: 8.5 2RF fluticasone propionate [Flonase Allergy Relief] 50 mcg/actuation spray,suspension 2 spray intranasal DAILY 90 Days Qty: 16 2RF Rx Instructions: administer into each nostril ipratropium-albuterol 0.5 mg-3 mg(2.5 mg base)/3 mL solution for nebulization 3 ml inhalation Q6H PRN (Reason: shortness of breath or wheezing) Qty: 180 3RF sennosides [senna] 8.6 mg tablet 8.6 mg PO BID PRN (Reason: Constipation) azelastine 137 mcg (0.1 %) spray,non-aerosol 2 spray intranasal HS PRN Rx Instructions: administer into each nostril doxycycline hyclate 100 mg capsule 100 mg PO BID Qty: 30 0RF triamcinolone acetonide 0.1 % cream 1 applic topical TID Qty: 453.6 0RF mupirocin [Centany] 2 % ointment 1 applic topical TID Qty: 44 1RF atorvastatin 20 mg tablet 20 mg PO HS Qty: 90 1RF potassium chloride [Klor-Con M20] 20 mEq tablet,ER particles/crystals 20 meq PO DAILY Qty: 90 1RF lisinopril 10 mg tablet 10 mg PO BID Qty: 90 1RF clonazepam 1 mg tablet 1 mg PO BID PRN (Reason: Nervousness) Qty: 90 0RF Rx Instructions: 1 mg twice a day and 30 minutes before bedtime furosemide [Lasix] 20 mg tablet 20 mg PO DAILY 7 Days Qty: 7 0RF Referrals Follow up/Referrals: Angie Stahl DO [Staff Physician, [facility]] - See instructions Nabeel Rios MD [Primary Care Provider, Medical] - See instructions Maldonado Mckeon MD [Referring, Urology] - See instructions Activity Restrictions/Add. Instructions Additional Instructions/Restrictions: Please return to the emergency department with any worsening signs or symptoms, please take your antibiotic as prescribed, please follow-up with your [facility] and urologist. In the upcoming days/weeks. Clinical Impressions Clinical Impression: UTI (urinary tract infection), Cystocele with prolapse Instructions Patient Instructions: DI for Urinary Tract Infection (UTI) Print Language Print Language: Persian Discharge ED Provider: Ciara Hudson General Adult HPI General Chief complaint: Urogenital-Female Stated complaint: Burning,Frequency,itching with urination Time Seen by Provider: 02/21/25 17:35 Mode of Arrival: Ambulatory Source of Information: Patient Limitations: No Limitations History of Present Illness HPI narrative: 79-year-old female presents to the emergency department with a 3 to 4-day history of dysuria, irritation, urinary frequency,/urgency, patient has a history of what sounds like uterine/bladder/cystocele prolapse, this been going on for quite some time, she states that she feels like she has a UTI , she endorses fatigue malaise and subjective fever and chills for the last 3 to 4 days, she denies any hematuria, denies any chest pain, has dyspnea on exertion has been going on for quite some time, follows with cardiology for this, denies any abdominal pain, does admit to some suprapubic discomfort, which is somewhat chronic for her, denies any vomiting or nausea, denies any diarrhea does have history of constipation, no melena no hematochezia no hematemesis no hemoptysis, denies any vaginal bleeding denies any vaginal discharge vaginal irritation, patient is a non-smoker, denies any alcohol or drug use, other past medical history is consistent with venous stasis dermatitis, COPD, hypertension, sacroiliitis, PAD, vitamin B12 deficiency, peripheral neuropathy, MONI, GERD, hyperlipidemia, frequent/chronic UTIs, CAD, LAURA. Initial triage vitals are unremarkable. Onset (ago): day(s) Related Data Home Medications ?Medication ?Instructions ?Recorded ?Confirmed sennosides 8.6 mg tablet (senna) 8.6 mg PO BID PRN Con stipation 02/26/19 02/18/25 azelastine 137 mcg (0.1 %) nasal 2 spray intranasal HS PRN 02/18/25 02/18/25 spray Previous Rx's ?Medication ?Instructions ?Recorded atorvastatin 20 mg tablet 20 mg PO HS Cholesterol #90 tabs 08/20/24 albuterol sulfate 90 mcg/actuation 2 inh inhalation Q6 H PRN shortness 08/28/24 aerosol inhaler of breath or wheezing 90 day s #8.5 grams fluticasone propionate 50 2 spray intranasal DAILY 90 days 08/28/24 mcg/actuation nasal #16 grams spray,suspension (Flonase Allergy Relief) ipratropium 0.5 mg-albuterol 3 mg 3 ml inhalation Q6H PRN shortness 08/28/24 (2.5 mg base)/3 mL nebulization of breath or wheezing #180 mL soln potassium chloride 20 mEq 20 meq PO DAILY #90 tabs 05/30 tablet,extended release(part/cryst) (Klor-Con M) lisinopril 10 mg tablet 10 mg PO BID #90 tabs furosemide 20 mg tablet (Lasix) 20 mg PO DAILY 1 week #7 tabs 02/05/25 doxycycline hyclate 100 mg capsule 100 mg PO BID #30 c aps 02/18/25 mupirocin 2 % topical ointment 1 applic topical TID #4 4 grams 02/18/25 (Centany) triamcinolone acetonide 0.1 % 1 applic topical TID [facility] to rash 02/18/25 topical cream on right leg but avoid wound #453.6 grams clonazepam 1 mg tablet 1 mg PO BID PRN Nervousness #90 02/20/25 tabs cefdinir 300 mg capsule 300 mg PO BID 10 days #20 ca ps 02/21/25 Allergies Allergy/AdvReac Type Severity Reaction Status Date / Time adhesive tape Allergy Severe Hives Verified 02/18/25 13:53 chlorhexidine (From Allergy Severe RASH Verified 02/18/25 13:53 Hibiclens) Iodinated Contrast Media Allergy Intermediate Unknown Verified 02/18/25 13:53 (IODINATED CONTRAST MEDIA - allergy IV DYE) reaction povidone-iodine (From Allergy Intermediate I-RASH Verified 02/18/25 13:53 BETADINE) cephalexin Allergy Unknown Unknown Verified 02/18/25 13:53 allergy reaction bismuth tribromophenate Allergy Rash Verified 02/18/25 13:53 (From Xeroform) petrolatum,white (From Allergy Rash Verified 02/18/25 13:53 Xeroform) [facility] Disclaimer: The information contained in this section may have been updated after the patient was seen, as this information can be updated by other users. Medical History Anxiety Asthma CAD (coronary artery disease) Cataract bilateral Claudication Cystocele with prolapse stage 3 Dizziness Dyspnea on exertion Edema Foot pain, bilateral History of anemia History of diverticulitis Hypertension Meniere disease Migraine Multiple pulmonary nodules Osteoarthritis Rash and nonspecific skin eruption Sleep apnea Vulvar lesion Vulvovaginal pain Wheezing Surgical History H/O: hysterectomy History of appendectomy History of bladder repair surgery History of carpal tunnel surgery of right wrist History of cataract surgery serena History of left hip replacement Hx of cardiac cath stent x1 Hx of cholecystectomy Hx of right coronary artery stent placement Hx of shoulder surgery bilateal rotator cuff repair Hx of spinal fusion 2003 3rd and 4th vertebrae Family History Mother Rheumatoid aortitis Family/Other Heart attack Social History Smoking Status: Never smoker alcohol intake: never substance use type: denies use current occupational status: retired Travel in the last 8 weeks?: None housing: house current occupational exposures/hazards: No caffeine: Yes Have you lived/traveled outside [place] in past 30 days?: No Contact w/someone who lives/traveled outside US past 30 days?: No Exposure to someone with infectious disease in past 14 days?: No Do you have a fever (greater than 100.4 F or 38 C)?: No Have you tested positive for COVID-19?: No Exposed to someone with COVID-19 in past 14 days?: No Do you have a sore throat?: No Do you have a cough?: No Do you have any weakness?: No Do you have any diarrhea?: No Are you experiencing any unusual bleeding?: No Do you have any muscle aches/pain?: No Do you have any abdominal pain?: No Are you experiencing loss of taste or smell?: No Other Medical History Have you received the Flu Vaccine for this season: No Have you received the Pneumonia Vaccine: Yes ROS Obtained: Yes All systems reviewed & no additional complaints except as documented Physical Exam General General appearance: alert and in no apparent distress Head Head exam: atraumatic and normocephalic Eye Eye exam: Present PERRL and EOMI ENT ENT exam: Present mucous membranes moist Neck Neck exam: Present normal inspection Chest Chest inspection: Present normal inspection and symmetric chest wall rise Respiratory Respiratory exam: Present normal lung sounds bilaterally; Absent respiratory distress Cardiovascular Cardiovascular exam: Present regular rate and normal rhythm Abdominal Exam Abdominal exam: Present soft and tenderness Abdominal tenderness: Present suprapubic and mild Comment: Minimal to mild suprapatellar palpation Extremities Exam Extremities exam: Present normal inspection Neurological Exam Neurological exam: Present alert, oriented X3 and other (Oriented to person and place, oriented to year, some disorientated about specific date, thus GCS of 14- 15, appears to be in the patient's baseline upon chart review.) Psychiatric Psychiatric exam: Present normal affect Skin Skin exam: Present warm and dry Medical Decision Making Medical Records Medical records reviewed: Yes I reviewed the patient's medical records. Screening: Per USPSTF and CDC recommendations, given the prevalence of disease in our region, it is our hospital?s policy to screen for HIV and viral Hepatitis for all patients aged 18 and over and those with ongoing risk factors. Agustin Inquiry Pt receiving controlled substance: No Agustin was queried for this patient: No Vital Signs: 02/21/25 17:46 02/21/25 17:46 02/21/25 18:01 Temperature 97.8 F Temperature Source Oral Pulse Rate 95 H 85 Pulse Rate [Right] 91 H Respiratory Rate 16 Blood Pressure 129/52 L 104/54 L Blood Pressure [Right Arm] 132/62 Blood Pressure Mean [Right Arm] 85 Blood Pressure Source Blood Pressure Position 02 Sat by Pulse Oximetry 97 96 94 L Oxygen Delivery Method Room Air 02/21/25 19:45 Temperature 98 F Temperature Source Oral Pulse Rate 95 H Pulse Rate [Right] Respiratory Rate 16 Blood Pressure 134/76 Blood Pressure [Right Arm] Blood Pressure Mean [Right Arm] Blood Pressure Source Automatic Cuff Blood Pressure Position Sitting 02 Sat by Pulse Oximetry Oxygen Delivery Method Room Air Lab Data Lab results reviewed: Yes I reviewed the patient's lab results. Lab Results 02/21/25 17:39: Urine Color Yellow, Urine Appearance Clear, Urine pH 5.5, Ur Specific [place] 1.025, Urine Protein Negative, Urine Glucose (UA) Negative, Urine Ketones Negative, Urine Blood Negative, Urine Nitrate Negative, Urine Bilirubin Negative, Urine Urobilinogen 0.2, Ur Leukocyte Esterase 1+ A, Urine RBC 5-10, Urine WBC 10-20, Ur Squamous Epith Cells 50-100, Urine Bacteria 4+, Urine Mucus 2+ 02/21/25 18:10: WBC 9.0, RBC 4.38, Hgb 14.5, Hct 43.8, MCV 100.0 H, MCH 33.1 H, MCHC 33.1, RDW 13.2, Plt Count 225, MPV 10.9 H, Neut % (Auto) 62.8, Lymph % (Auto) 23.0, [place] % (Auto) 8.2, Eos % (Auto) 5.1, Baso % (Auto) 0.6, Neut # (Auto) 5.7, Lymph # (Auto) 2.1, [place] # (Auto) 0.7, Eos # (Auto) 0.5 H, Baso # (Auto) 0.1, Sodium 138, Potassium 5.3 H, Chloride 103, Carbon Dioxide 27, Anion Gap 13.3, BUN 23 H, Creatinine 0.70, Estimated Creat Clear 51, Estimated GFR 81, Est GFR ( Amer) 98, Glucose 105 H, Calcium 9.5, Total Bilirubin 1.2, AST 41 H, ALT 20, Alkaline Phosphatase 79, Total Protein 7.2, Albumin 4.3, Globulin 2.9, Albumin/Globulin Ratio 1.5 02/21/25 18:10 02/21/25 18:10 Orders (Tests/Meds): ORDERS Category Date Time Status CT abdomen pelvis wo con Stat Cat Scan 02/21/25 18:10 Completed Complete Blood Count Auto Diff Stat Lab 02/21/25 18:10 Completed Comprehensive Metabolic Panel Stat Lab 02/21/25 18:10 Completed Urinalysis and Microscopic Stat Lab 02/21/25 17:39 Completed Urine Culture Stat Micro 02/21/25 17:39 Received Medical Decision Narrative: 79-year-old female presents to the emergency department with urinary tract infection type symptomatology as well as fatigue malaise for the last 3 to 4 days, differential diagnosis include but not limited to acute UTI, acute pyelonephritis, acute kidney injury, uterine/cystocele prolapse, bladder outlet obstruction among others. I discussed patient case with the attending physician Will obtain CBC CMP, CT abdomen pelvis without contrast and UA. Urinalysis is notable for negative nitrites negative hematuria, 1+ leukocyte esterase. Microscopic analysis of the patient's urine reveals 5-10 RBCs, 10-20 WBCs, 50- 100 squamous epithelial cells, 4+ urine bacteria and 2+ urine mucus. CBC is notable for elevated MCV at 101 which appears to be in line with the patient's history of anemia, hemoglobin hematocrit are within normal limits CMP is notable for minimal hyperkalemia at 5.3. CMP is notable for mild BUN of 23, minimal AST elevation 41. I reviewed the patient's CT abdomen pelvis without contrast on the corresponding radiologic report, 4 x 2.5 x 2.4 cm cystocele with multiple, within 3 layering intraluminal stones, indicative chronic urinary retention within the cystocele, no significant wall thickening or surrounding inflammatory changes, prolapse of vaginal cuff, rectal prolapse, scattered sub-6 mm lung nodules, follow-up MRI defcography, I discussed this with the patient at the bedside, patient is good to be discharged home self-care, as suggested rectocele appear chronic, patient need to follow-up with [facility] urologist for this, patient has no neurology follow-up, patient be treated for UTI with history of chronic UTI/symptomatic, will send patient's urine culture, patient did have quite significant squamous epithelial cells, both history of rectocele/cystocele, and urinary symptoms will treat with cefdinir 300 mg p.o. twice daily for 7 days. Patient voiced understanding and is in agreement the current treatment plan/discharge plan. Patient given strict ED return precautions. Critical Care Critical Care Time Critical Care Time: No
--- OUTSIDE RECORDS SUMMARY | 2025-02-21 17:42 | XMS_ITS | Clinical Summary ---
[facility] Address [address] [place] [address] Care Team Providers Care Logistics Solution Manager Name Role Phone Nabeel Rios MD Primary Care Provider Active Problems Problem Noted Date Diagnosed Date Nonrheumatic mitral valve regurgitation 10/02/19 25 Palpitations 10/02/2024 Venous insufficiency of both lower extremities 0 10/02/2024 Primary hypertension 10/02/2024 Social History Tobacco Use Types Packs/Day Years Used Date Smoking Tobacco: Never Assessed Abuse Screen Answer Date Recorded Unsafe at Home or Work/School Not on file Feels Threatened by Someone? Not on file 04/2023 Does Anyone Keep You from Co ntacting Others or Doint Things Outside the Home? Not on file 05/14/2023 Physical Sign of Abuse Present Not on file 1 Housing Stability Answer Date Recorded Current Living Arrangements Not on file 04/2023 Potentially Unsafe Housing Conditions Not on lindsey e 05/14/2023 Family and Community Support Answer Irving e Recorded Help with Day-to-Day Activities Not on file 05/14/2023 Lonely or Isolated Not on file 05/14/2023 Employment Answer Date Recorded Do you want help finding or keeping work or a marni b? Not on file 05/14/2023 Disabilities Answer Date Recorded Concentrating, Remembering, or Making Decisions Difficulty Not on file 05/14/2023 Doing Errands Independently Difficulty Not on fi le 05/14/2023 Education Answer Date Recorded Help with school or training? Not on file Preferred Language Not on file 05/14/2023 Comments Unknown Sex and Gender Information Value Date Recorded Sex Assigned at Not on file Legal Sex Female 12:07 PM EDT Gender Identity Not on file Sexual Orientation Not on file Plan of Treatment Upcoming Encounters Date Type Department Care Team (Late st Contact Info) Description 06/30/2025 3:00 PM EST Office Visit [facility] [address] [place] [address] Vin Love MD [address] [facility] [address] [place] [address] Health Maintenance Due Date Last Done Comments DXA SCAN 1945 ZOSTER VACCINE (1 of 2) 1996 RSV Vaccine - Adults (1 - 1- dose 75+ series) 2021 COVID-19 Vaccine (4 - 2023-2 5 season) 2024 06/29/2021, 11/05/2020, 10/05/2020 ANNUAL WELLNESS VISIT 09/26/2024 HEPATITIS C SCREENING 09/26/2024 INFLUENZA VACCINE 05/06/2025 04/18/2023, , 06/09/2020, Additional history exists TDAP/TD VACCINES (2 - Td or Tdap) 2033 023 COLONOSCOPY Discontinued 10/03/2016, 10/03/2016 COLORECTAL CANCER SCREENING Discontinued Pneumococcal Vaccine 50+ Completed 06/09/2020, 04/07 COLOGUARD Discontinued COLON CANCER SCREENING 5 YEA R SIGMOIDOSCOPY Discontinued CT COLONOGRAPHY Discontinued FECAL OCCULT BLOOD TEST Discontinued FIT Testing (1 year) Discontinued Procedures Procedure Name Priority Date/Time Associated Diagnosis Comments SCANNED - LABS 01/06/2025 SCANNED - IMAGING 01/06/2025 SCANNED - IMAGING 01/06/2025 SCANNED - IMAGING 01/06/2025 from Last 3 Months Results * IMAGING SCANNED (01/06/2025) Only the most recent of3 resultswithin the time period is included. Anatomical Region Laterality Modality Radiographic Bella ging [facility] IMG DIAGNOSTIC IMAGING ORDERA BLES Final Result * LABS SCANNED (01/06/2025) [facility] [place] [facility] LAB BLOOD ORDERABLES Final Re sult from Last 3 Months Insurance [employer] PPO Care Teams Logistics Solution Manager Relationship Specialty Start Date End Date Nabeel Rios MD [address] [facility] [address] [place] [address] PCP - General Internal Medicine 01/15/25
--- OUTSIDE RECORDS SUMMARY | 2025-02-21 17:42 | XMS_ITS | Clinical Summary ---
Author Organization Healthcare Address [address] [id number] Care Team Providers Care Toll Settlement Clerk Name Role Phone Kathleen Sanderson MARGARITA Primary Care Provider [phone] Allergies Active Allergy Reactions Criticality Noted Date [...] r (1 - 1-dose 75+ series) 2021 [id number] Vaccine ( season) 2024 06/29/2021, 11/05/2020, 10/05/2020 [...] Most Recently Relevant to Health Maintenance Insurance [facility] MEDICARE Care Teams Toll Settlement Clerk Relationship Specialty Start Date End Date Kathleen Sanderson APRN [address] [place] [address] [facility] - General 06/23/21
--- OUTSIDE RECORDS SUMMARY | 2025-02-21 17:43 | XMS_ITS | Patient Health Record ---
Author Organization [facility] FISH Address [address] [facility] [address] [place] [address] Care Team Providers Care Plaster Applicator Name Role Phone Khadar Quintana Primary Care Provider Kathleen Sanderson Unavailable [phone] Migration, Provider Unavailable Unavailable Allergies Allergen (clinical [...] Susceptible I- Intermediate * Not on [facility] Formulary [facility] [place] Count >100,000 RX GONZALEZ: R- Resistant S- Susceptible I- Intermediate * Not on [facility] Formul[facility] RX GONZALEZ: R- Resistant S- Susceptible I- Intermediate * [facility] on [facility] RX GONZALEZ: R- Resistant S- Susceptible I- Intermediate * Not on [facility] CU Escherichia coli: REACTION RX GONZALEZ: R- Resistant S- Susceptible I- Intermediate * Not on [facility] Amikacin <=8 S RX GONZALEZ: R- Resistant S- Susceptible I- Intermediate * Not on [facility] Ampicillin >16 R RX GONZALEZ: R- Resistant S- Susceptible I- Intermediate * Not on [facility] Aztreonam <=2 S RX GONZALEZ: R- Resistant S- Susceptible I- Intermediate * Not on [facility] Cefepime <=1 S RX GONZALEZ: R- Resistant S- Susceptible I- Intermediate * Not on [facility] Ceftazidime <=2 S RX GONZALEZ: R- Resistant S- Susceptible I- Intermediate * Not on [facility] Ceftriaxone <=1 S RX GONZALEZ: R- Resistant S- Susceptible I- Intermediate * Not on [facility] Ciprofloxacin 1 R RX GONZALEZ: R- Resistant S- Susceptible I- Intermediate * Not on [facility] Ertapenem <=0.25 S RX GONZALEZ: R- Resistant S- Susceptible I- Intermediate * Not on [facility] Gentamicin <=2 S RX GONZALEZ: R- Resistant S- Susceptible I- Intermediate * Not on [facility] Levofloxacin 1 I RX GONZALEZ: R- Resistant S- Susceptible I- Intermediate * Not on [facility] Meropenem <=0.5 S RX GONZALEZ: R- Resistant S- Susceptible I- Intermediate * Not on [facility] Nitrofurantoin 32 S RX GONZALEZ: R- Resistant S- Susceptible I- Intermediate * Not on [facility] Tetracycline <=2 S RX GONZALEZ: R- Resistant S- Susceptible I- Intermediate * [facility] Tobram[facility] <=2 S RX GONZALEZ: R- Resistant S- Susceptible I- Intermediate * Not on [facility] Trimethoprim/Sulfame thoxaz ole <=0.5/9.5 S RX GONZALEZ: R- Resistant S- Susceptible I- Intermediate * Not on [facility] Piperacillin/Tazobac newell 4/4 S RX GONZALEZ: R- Resistant S- Susceptible I- Intermediate * Not on [facility] CUU RX GONZALEZ: R- Resistant S- Susceptible I- Intermediate * Not on [facility] Rapid Covid Antigen Reviewed date:03/27/2024 02:20:25 [...] Duration: 90 days 07/11/2022 Active POTASSIUM CHLORIDE ([id number] M20) 20 MEQ TAKE 1 TABLET BY [...] Vaccine Route Administration Date Status Comme nts Covid Moderna Unknown 10/05/2020 Administered Covid Moderna Unknown 11/05/2020 Administered Covid Moderna Unknown 06/29/2021 Administered Fluzone High Dose IM Intramuscular 07/01/2019 Administered Fluzone High Dose IM Intramuscular 06/09/2020 Administered Fluzone High Dose IM Intramuscular 06/14/2022 Administered Fluzone High Dose IM Intramuscular 04/18/2023 Administered Pneumovax 23 IM Intramuscular 06/09/2020 Administered Prevnar PCV-13 (Pneumococcal conjugate 13) IM Intramuscular 05/03/2017 Administered Social History Tobacco Use: Social History [...] Risk Notes Problem Major depression, single episode (18278176) Major depressive disorder, single episode, unspecified (F32.9) Active confirmed Problem Anxiety disorder (410770002) Other mixed anxiety disorders (F41.3) Active confirmed Problem Bilateral tinnitus (6841998755758) Tinnitus, bilateral (H93.13) Active confirmed Problem Congenital malformation syndrome (456263152) Other specified congenital malformation syndromes, 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) Active confirmed Problem Paresthesia (finding) (49164903) Paresthesia of skin (R20.2) Active confirmed Problem Mixed anxiety and depressive disorder (047333799) Depression with anxiety (F41.8) Active confirmed Problem Anxiety (25401387) Anxiety (F41.9) Active confirmed Problem Vitamin D deficiency (31441704) Vitamin D deficiency (E55.9) Active confirmed Problem Essential hypertension (28962125) Essential hypertension (I10) Active confirmed Problem Diverticulitis (59380299) Diverticulitis (K57.92) Active confirmed Problem Constipation by delayed colonic transit (07783585) Constipation by delayed colonic transit (K59.01) Active confirmed Problem Acute exacerbation of chronic obstructive airways disease (023892614) COPD exacerbation (J44.1) Active confirmed Problem Dysuria (56548191) Burning with urination (R30.0) Active confirmed Problem Obese class I (983824523631736) BMI 33.0-33.9,adult (Z68.33) Active confirmed Problem Chronic pain (35188023) Other chronic pain (G89.29) Active confirmed Problem Senile debility (73888301) Senile debility (R54) Active confirmed Problem Claudication (49770821) Claudication (I73.9) Active confirmed Problem Insomnia disorder related to another mental disorder (94193467) Psychophysiological insomnia (F51.04) Active confirmed Problem Inflammation of right sacroiliac joint (6124897140) Inflammation of right sacroiliac joint (M46.1) Active confirmed Problem Degeneration of lumbosacral intervertebral disc (88523015) DDD (degenerative disc disease), lumbosacral (M51.37) Active confirmed Problem Mood disorder (89969701) Mood disorder (F39) Active confirmed Problem Obstructive sleep apnea syndrome (63059544) LAURA (obstructive sleep apnea) (G47.33) Active confirmed Problem Environmental tobacco smoke exposure (085399712) Second hand smoke exposure (Z77.22) Active confirmed Problem Generalized anxiety disorder (66920714) MONI (generalized anxiety disorder) (F41.1) Active confirmed Problem Vitamin B12 deficiency (596768492) History of non anemic vitamin B12 deficiency (Z86.39) Active confirmed Problem Abnormal gait (12119755) Gait disturbance (R26.9) Active confirmed Problem Atherosclerotic heart disease of [place] coronary artery without angina pectoris (271862909427635) CAD in [place] artery (I25.10) Active confirmed Problem Recurrent falls (612832221) Falls frequently (R29.6) Active confirmed Problem Lymphedema (622533259) Lymphedema of left leg (I89.0) Active confirmed Problem Idiopathic sleep related non-obstructive alveolar hypoventilation (703160374) Nocturnal hypoxemia (G47.34) Active confirmed Problem Abdominal aortic aneurysm without rupture (disorder) (46263333) Abdominal aortic aneurysm (AAA) without rupture (I71.4) Active confirmed Problem Irritable bowel syndrome characterized by constipation (992134566) Irritable bowel syndrome with constipation (K58.1) Active confirmed Problem Inflammatory bowel disease (disorder) (95582009) IBD (inflammatory bowel disease) (K63.89) Active confirmed Problem Midline cystocele (014033496) Bladder prolapse, female, acquired (N81.10) Active confirmed Problem Mucopurulent chronic bronchitis (54791977) Chronic bronchitis with productive mucopurulent cough (J41.1) Active confirmed Problem Major depression, single episode (24614439) Chronic major depressive disorder (F32.9) Active confirmed Problem Impairment of balance (909975303) Balance problem (R26.89) Active confirmed Vital Signs Heart Rate 80 /min 05/20/2024 Temperature 98 degrees Fahrenheit 05/20/2024 Blood pressure diastolic 80 mm Hg 05/20/2024 Height 5 ft 1 in in 05/20/2024 Blood pressure systolic 138 mm Hg 05/20/2024 Weight 162 lbs 05/20/2024 BMI 30.61 kg/m2 05/20/2024 Encounters Encounter Location Date Provider Diagnosis [facility] [address] [place] [address] 11/08/2024 Provider Migration MONI (generalized anxiety disorder) F41.1 [facility] [address] [place] [address] 02/29/2024 Kathleen Maria E Dysuria R30.0 [facility] [address] [address] 03/26/2024 Kathleen Maria E Subacute cough R05.2 and Acute non-recurrent maxillary sinusitis J01.00 [facility] [address] [facility] [address] [place] [address] 05/05/2024 Kathleen Maria E DDD (degenerative disc disease), lumbosacral M51.37 ; Tinnitus, bilateral H93.13 ; Pain in right leg M79.604 ; Pain in left leg M79.605 ; MONI (generalized anxiety disorder) F41.1 ; Mood disorder F39 and Cognitive changes R41.89 [facility] [place] [address] [address] 05/08/2024 Khadar Quintana Tinnitus of both ears H93.13 [facility] [place] [address] [address] 05/20/2024 Khadar Quintana MONI (generalized anxiety disorder) F41.1 [facility] [address] [place] [address] 02/27/2024 Kathleen Maria E [facility] [address] [place] [address] 02/29/2024 Kathleen Maria E [facility] [address] [place] [address] 02/29/2024 Kathleen Maria E [facility] [address] [place] [address] 03/03/2024 Khadar Besson [facility] [address] [place] [address] 04/08/2024 Kathleen Sanderson Left-sided chest wall pain R07.89 and Acute traumatic pain G89.11 [facility] [place] [address] [place] [address] 04/30/2024 Khadar Besson [facility] [address] [place] [address] 05/08/2024 Kathleen Sanderson [facility] [address] [facility] [place] [address] 05/08/2024 Khadar Besson [facility] [address] [place] [address] 05/19/2024 Khadar Besson [facility] [address] [facility] [address] [place] [address] 05/23/2024 Khadar Besson Assessments Encounter Date Diagnosis (ICD Code) Assessment Notes Treatment Notes Treatment Clinical Notes Section Notes 02/29/2024 Dysuria (ICD-10 - R30.0) 03/26/2024 Acute [...] I encouraged her to resume mirtazepine at for sleep and mood. 05/05/2024 DDD (degenerative disc disease), lumbosacral (ICD-10 [...] in right leg (ICD-10 - M79.604) 05/05/2024 Pain in left leg (ICD-10 - [...] End Date [employer] [address] [address] [place] [address] [id number] Samara Hayward Self - patient is the [...] 03/2019 Back surgery, Dr Catracho Arellano in [facility] 06/2003 Hospitalization History Reason Date(Month/Year) ICU- GI bleed- transfusions 09/2016 [facility] 03/2019 [facility]- Tachycardia 03/2018
--- OUTSIDE RECORDS SUMMARY | 2025-02-21 17:43 | XMS_ITS | Clinical Summary ---
Author Organization [facility] Address [facility] [place] [address] Care Team Providers Care Helper Teacher Name Role Phone Khadar Quintana MD Primary Care Provider + [phone] Source Comments This information has been disclosed [...] therelease of HIV test results or diagnoses. [id number] Allergies Active Allergy Reactions Criticality Noted Date [...] Insurance [employer] CHO[employer] PPO MEDICARE Care Teams Helper Teacher Relationship Specialty Start Date End Date Khadar Quintana MD [address] [place] [address] PCP - General Internal Medicine 05/30/22
[2025-02-21 17:46] VITALS: BP 129/52; BP 132/62; PULSE 91; PULSE 95; RESP 16; TEMP 36.6; O2SAT 96; O2SAT 97; BMI 29.2
[2025-02-21 17:46] LABS: Microscopic, Urine URINE MICROSCOPIC (MICROSCOPIC)
[2025-02-21 17:48] LABS: Bilirubin,Urine Negative (Negative); Color,Urine YELLOW (Yellow); Glucose,Urine (UA) Negative (Negative); Ketones,Urine Negative (Negative); Leukocyte Esterase,Urine 1+ (Negative); PH,Urine 5.5 (5.0-8.5); Protein,Urine Negative (Negative); Specific Gravity, Urine 1.025 (1.005-1.030); Urobilinogen,Urine 0.2 EU/dl (0.2)
[2025-02-21 18:01] VITALS: BP 104/54; PULSE 85; O2SAT 94
--- NOTE | 2025-02-21 18:10 | CT_ITS ---
PROCEDURE INFORMATION: Exam: CT Abdomen And Pelvis Without Contrast Exam date and time: 02/21/2025 6:29 PM Age: 79 years old Clinical indication: Other: Dysuria, urgency, HX of cystocele/uterine prolapse TECHNIQUE: Imaging protocol: Computed tomography of the abdomen and pelvis without contrast. Radiation optimization: All CT scans at this facility use at least one of these dose optimization techniques: automated exposure control; mA and/or kV adjustment per patient size (includes targeted exams where dose is matched to clinical indication); or iterative reconstruction. COMPARISON: CT ABDOMEN PELVIS WO CON 01/24/2021 9:51 AM FINDINGS: Lungs: Calcified granulomas throughout the lungs are benign. Scattered sub 6 mm lung nodules. Scarring/atelectasis at the lung bases without acute findings. Diaphragm: Small hiatal hernia. Liver: Scattered calcified liver granulomas are benign. The liver has a normal contour with smooth borders. Gallbladder and biliary ducts: Cholecystectomy. Mild intra-and extrahepatic biliary ductal dilation is most likely the sequela of prior cholecystectomy in the absence of clinical symptomatology. If warranted, consider correlation with biliary levels.This is stable compared to the prior examination. Pancreas: Diffuse atrophy of the pancreatic parenchyma. The pancreas is otherwise unremarkable. Spleen: The spleen demonstrates punctate calcifications, consistent with remote granulomatous organism exposure. The spleen is otherwise unremarkable. Adrenal glands: Adrenal glands are normal. Kidneys and ureters: The right kidney is normal. Multiple simple left renal cysts, largest measuring 5.4 cm. And has layering milk alkali or calcifications. Nonemergent ultrasound follow-up is recommended. The left kidney is otherwise unremarkable. No hydroureter. Stomach and bowel: Rectal prolapse. Mild constipation. Diffuse colonic diverticulosis. No bowel thickening. There is no evidence of intestinal obstruction. The stomach is normal. Duodenum is unremarkable. Appendix: Appendix is not confidently visualized on this examination, however there are no significant inflammatory changes to the right lower quadrant. Intraperitoneal space: There is no evidence of free intraperitoneal or pelvic fluid. No intraperitoneal fluid collections. There is no free intraperitoneal air. Vasculature: Severe atherosclerotic calcification of the arterial vasculature. No aortic aneurysm. Lymph nodes: No concerning adenopathy. Urinary bladder: 4 x 2.5 x 2.4 cm cystocele with multiple (more than 3) layering intraluminal stones. Reproductive: There has been a hysterectomy. Prolapse of the vaginal cuff. Bones/joints: Prior lumbosacral spine fixation and complete left hip arthroplasty. No evidence of hardware complications. Specifically, no evidence for hardware loosening or periprosthetic fractures. 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 Severe multilevel degenerative changes of the spine. No acutely displaced fractures. No joint dislocation. Soft tissues: Calcified injection granulomas in the subcutaneous tissues of the buttocks. No acute soft tissue findings. IMPRESSION: 1. 4 x 2.5 x 2.4 cm cystocele with multiple (more than 3) layering intraluminal stones. Indicative of chronic urinary retention within the cystocele. No significant wall thickening or surrounding inflammatory changes. 2. Prolapse of the vaginal cuff. 3. Rectal prolapse. 4. Scattered sub 6 mm lung nodules. For patients at low risk (minimal or absent history of smoking and of other known risk factors), no routine follow-up is indicated. For patients at high risk (history of smoking or of other known risk factors), consider optional CT Chest at 12 months. (Reference: Deejay) COMMENTS: 1. Follow-up MRI defecography may be beneficial for further assessment of pelvic floor dysfunction. 2. Consistent with the [employer]'s Incidental Findings Committee white paper (J Am Zari Radiol 2018): Any incidental renal lesion less than 1 cm or classified as too small to characterize, or any incidental cystic renal lesion characterized as simple-appearing, is likely benign. No follow-up imaging is recommended for these lesions per consensus recommendations based on imaging criteria. REFERENCES: Deejay Dowling, et al. Guidelines for Management of Incidental Pulmonary Nodules Detected on CT Images: From the Fleischner Society 2017. Radiology. 2017;284(1):228-243.
[2025-02-21 18:15] LABS: Bacteria,Urine 4+ /lpf; Mucus,Urine 2+ /lpf; Squamous Epithelial Cell,Urine 50-100 #/hpf (0-5)
[2025-02-21 18:23] LABS: Hematocrit 43.8 % (37.0-47.0); Hemoglobin 14.5 g/dL (12.2-16.2); Immature Granulocytes % 0.3 %; Mean Corpuscular HGB Conc 33.1 g/dL (31.8-35.4); Mean Corpuscular Hemoglobin 33.1 pg (27.0-31.2); Mean Corpuscular Volume 100.0 fl (81-99); Nucleated Red Blood Cells % 0 %; Platelet Count 225 K/mm3 (142-424); Red Blood Count 4.38 M/mm3 (4.20-5.40); Red Cell Distribution Width-SD 48.8 fL; White Blood Count 9.0 K/mm3 (4.8-10.8)
[2025-02-21 18:47] LABS: Albumin Level 4.3 g/dl (3.5-5.0); Chloride 103 mmol/L (98-107); Potassium 5.3 mmoL/L (3.5-5.1); Sodium 138 mmol/L (136-145)
[2025-02-21 18:50] LABS: Alanine Aminotransferase 20 U/L (12-78); Albumin/Globulin Ratio 1.5 (1.1-1.8); Alkaline Phosphatase 79 U/L (38-126); Anion Gap 13.3 mEq/L (5-15); Aspartate Amino Transferase 41 U/L (14-36); Bilirubin,Total 1.2 mg/dl (0.2-1.3); Blood Urea Nitrogen 23 mg/dl (7-17); Carbon Dioxide 27 mmol/L (22.0-30.0); Creatinine Clearance Estimated 51 mL/min (50-200); Creatinine,Serum 0.70 mg/dl (0.52-1.04); Estimated Glomerular Filt Rate 81 ml/min (>60); GFR (African American) 98 ML/MIN (>60); Globulin 2.9 g/dL (1.3-3.2); Total Protein,Serum 7.2 g/dl (6.3-8.2)
[2025-02-21 18:51] LABS: Calcium 9.5 mg/dl (8.4-10.2); Glucose 105 mg/dl (74-100)
[2025-02-21 19:45] VITALS: BP 134/76; PULSE 95; RESP 16; TEMP 36.6; O2SAT 96
--- NOTE | 2025-02-24 09:24 | PC.NURSE ---
Urine culture results reviewed by Dr. Page. No new orders received at this time.
== END 2025-02-21 19:47 | disposition home or self-care (01) ==
PROVIDERS: Physician Assistant; Emergency Provider Student in an Organized Health Care Education/Training Program; PCP Internal Medicine
DX: N39.0 Urinary tract infection, site not specified (principal); R30.0 Dysuria; R39.15 Urgency of urination; N81.4 Uterovaginal prolapse, unspecified
CPT/HCPCS: 74176; 80053; 81001; 85025; 87086; 87088; 87186; 99284

== ENCOUNTER 2025-03-17 16:38 | Outpatient (CLI) | payer MEDICARE, SELFPAY ==
--- OUTSIDE RECORDS SUMMARY | 2025-03-17 16:40 | XMS_ITS | Clinical Summary ---
Author Organization Healthcare Address [address] [place] [address] Care Team Providers Care Picture Enlarger Name Role Phone Kathleen Sanderson JANITOR SUPERVISOR Primary Care Provider [phone] Allergies Active Allergy Reactions Criticality Noted Date [...] 10/11/2021 2:42 PM EST Plan of Treatment Upcoming Encounters Date Type Department Care Team (Late st Contact Info) Description 05/11/2025 10:30 AM EDT Office Visit Medical Office Building Obstetrics and Gynecology [address] [facility], [address] [place] [address] Angelina Carl, MARGARITA [address] [facility] [address] [facility] [address] [place] [address] Health Maintenance Due Date Last Done Comments [facility]-Bone Density Scan 1945 [facility]-Depression Screening 1945 [facility]-Hepatitis C Screening 1945 [facility]-Medicare Annual Wellness (AWV) 1945 [facility]-/Child/Adol SDOH Screenings 1945 [facility]- SDOH Screenings 1964 [facility]-Adult SDOH Screenings 1964 [facility]-Zoster Vaccines (1 of 2) 1996 [facility]-RSV Vaccine: 60+ Years or (1 - 1-dose 75+ series) 2021 IBG-TOLZB-11 Vaccine (4 - season) 2024 06/29/2021, 11/05/2020, 10/05/2020 [facility]-Influenza Vaccine (#1) 04/06/202504/18, 06/09/2020, 07/01/2019, Additional history exists [facility]-DTaP,Tdap,and Td Vaccines (2 - Td or Tdap) 2033 2023 Colonoscopy Discontinued 10/03/2016 [facility]-Colorectal Cancer Screening Discontinued [facility]-Pneumococcal Vaccine: 50+ Years Completed 06/09/2020, 05/03/2017 CT Colonography Discontinued [...] Most Recently Relevant to Health Maintenance Insurance [facility] [place] [address] Care Teams Picture Enlarger Relationship Specialty Start Date End Date Kathleen Sanderson APRN [address] [place] [id number] PCP - General 06/23/21
--- OUTSIDE RECORDS SUMMARY | 2025-03-17 16:40 | XMS_ITS | Clinical Summary ---
Author Organization [facility] Address [address] [place] [address] Care Team Providers Care Miner Assistant Name Role Phone Nabeel Rios MD Primary Care Provider [phone] Active Problems Problem Noted Date Diagnosed Date [...] Description 06/30/2025 3:00 PM EST Office Visit [facility] [address] [place] [address] Vin Love MD [address] [facility] [address] [place] [address] Health Maintenance Due Date Last Done Comments [...] Anatomical Region Laterality Modality Radiographic [place] [facility] IMG DIAGNOSTIC IMAGING ORDERA BLES Final Result * LABS SCANNED (01/06/2025) [facility] New Onbase LAB BLOOD ORDERABLES Final Re sult from Last 3 Months Insurance [employer] MEDICARE ADVANTAGE PPO Care Teams Miner Assistant Relationship Specialty Start Date End Date Nabeel Rios MD [address] [facility] [address] [place] [address] PCP - General Internal Medicine 01/15/25
--- OUTSIDE RECORDS SUMMARY | 2025-03-17 16:40 | XMS_ITS | Clinical Summary ---
Author Organization [facility] Address [facility] [place] [address] Care Team Providers Care Cob Sawyer Name Role Phone Khadar Quintana MD Primary Care Provider + [phone] Source Comments This information has been disclosed [...] therelease of HIV test results or diagnoses. [id number] Allergies Active Allergy Reactions Criticality [...] Insurance [employer] CHO[employer] PPO MEDICARE Care Teams Cob Sawyer Relationship Specialty Start Date End Date Khadar Quintana MD [address] [place] [address] PCP - General Internal Medicine 05/30/22
--- NOTE | 2025-03-17 16:41 | XR_ITS ---
PROCEDURE INFORMATION: Exam: XR Chest Exam date and time: 03/17/2025 4:42 PM Age: 79 years old Clinical indication: Other: Fall, right lateral chest pain TECHNIQUE: Imaging protocol: Radiologic exam of the chest. Views: 2 views. COMPARISON: CR XR CHEST 2V 02/07/2023 1:32 PM FINDINGS: Lungs: Unremarkable. No consolidation. Pleural spaces: Unremarkable. No pleural effusion. No pneumothorax. Heart/Mediastinum: Unremarkable. No cardiomegaly. Bones/joints: Unremarkable. IMPRESSION: No acute findings.
== END 2025-03-17 23:59 | disposition home or self-care (01) ==
LOC: RAD 16:38
PROVIDERS: PCP Internal Medicine; Visit Provider Internal Medicine
DX: R07.89 Other chest pain (principal); W19.XXXA Unspecified fall, initial encounter
CPT/HCPCS: 71046

== ENCOUNTER 2025-06-11 09:53 | Outpatient (CLI) | payer MEDICARE, SELFPAY ==
--- OUTSIDE RECORDS SUMMARY | 2024-03-12 09:15 | XMS_ITS ---
Author Organization [facility] Address [address] [place] [address] Care Team Providers Care Foreign Student Adviser Teacher Name Role Phone Khadar Quintana Primary Care Provider Kathleen Sanderson Unavailable [phone] REASON FOR VISIT 1 wks Encounters Encounter Location Date Provider Diagnosis [address] [address] 03/12/2024 Kathleen Sanderson Plan Of Treatment No Information Progress Notes * Samara HAYWARDDOB:1945 (80 yo F)Acc No.[id number]:03/12/2024 Progress Notes Patient: Samara CASTILLO Provider: GABE Arana :1945 A ge:78 Y S ex:Female Date:03/12/2024 Address:[address] [id number] Pcp:Khadar Quintana Subjective: * Chief Complaints: * 1 . 1 wks. * Medical History: Objective: * Vitals: Assessment: Plan: * Treatment: * * Electronic signature of Janelle Sanderson APRN on 06/15/2025 at 10:00 AM EST Sign off status: Pending * Provider: GABE Arana Date: 0 03/12/2024 Generated for Printi ng/Faxing/eTransmitting on: 1 08/15/2024 10:00 AM EST
--- OUTSIDE RECORDS SUMMARY | 2024-03-27 11:45 | XMS_ITS ---
Author Organization [facility] Address [address] [facility] [address] [place] [address] Care Team Providers Care Accountant Controller Name Role Phone Khadar Quintana Primary Care Provider [phone] Kathleen Sanderson Unavailable [phone] REASON FOR VISIT fever , fatigue Encounters Encounter Location Date Provider Diagnosis [facility] [address] [facility] [address] [place] [address] 03/27/2024 Kathleen Sanderson Plan Of Treatment No Information Progress Notes * Samara HAYWARDDOB:1945 (80 yo F)Acc No.[id number]:03/27/2024 Progress Notes Patient: Samara CASTILLO Provider: GABE Arana :1945 A ge:79 Y S ex:Female Date:03/27/2024 Address:[address] , [id number] Pcp:Khadar Quintana Subjective: * Chief Complaints: * 1 . Fever , fatigue. * Medical History: Objective: * Vitals: Assessment: Plan: * Treatment: * * Electronic signature of Janelle Sanderson APRN on 06/15/2025 at 09:58 AM EST Sign off status: Pending * Provider: GABE Arana Date: 0 03/27/2024 Generated for Rona robison/[place]ster/eTransmitting on: 08/15/2024 09:58 AM EST
--- OUTSIDE RECORDS SUMMARY | 2024-11-08 16:30 | XMS_ITS ---
Author Organization [facility] FISH Address [address] [place] [address] Care Team Providers Care Student Driving Instructor Name Role Phone Khadar Quintana Primary Care Provider Migration, Provider Unavailable Unavailable Allergies Allergen (clinical drug ingredient) Drug/Non Drug Allergy documented on EMR Reaction Allergy Type Onset Date Status ALL TAPE- EXCEPT PAPER TAPE (uncoded) rash Allergy Active IV DYE (uncoded) rash Allergy Act etelvina cephalexin Cephalexin tachypnea, hives Drug Allergy Active chlorhexidine Hibiclens rash Drug Allergy Act etelvina [facility] Conversion Encounter Medications Medication SIG (Take, Route, Frequency, Duration) Notes Start Date End Date Status traMADol HCl 50 MG 1 tab(s) orally thre e times daily as needed for pain; Duration: 30 days 03/11/2024 Active clonazePAM 1 MG 1 tab(s) orally 2 times daily; Duration: 30 day(s) 04/30/2024 Active hydrOXYzine Pamoate 25 MG 1 cap(s) orally 4 times a day; Duration: 14 days 05/19/2024 Active Gabapentin 100 MG 1 cap(s) orally 1 time a day for pain; Duration: 30 days 05/05/2024 Active Atorvastatin Calcium 20 MG 1 tab(s) orally once a day; Duration: 90 Active Triamcinolone Acetonide 0.1 % 1 lupe applied topically 2 times a day; Duration: 7 days 08/02/2023 Active Furosemide 20 MG 1 tab(s) orally once a day as needed for swelling; Duration: 30 days 10/04/2022 Active Symbicort 160-4.5 MCG/ACT 2 puff(s) inhaled 2 times a day; Duration: 30 day(s) Active Lisinopril 10 MG 1 tab(s) orally 2 times a day; Duration: 90 days 07/11/2022 Active POTASSIUM CHLORIDE ([id number] M20) 20 MEQ TAKE 1 TABLET BY MOUTH ONCE DAILY FOR 90 DAYS; Duration: 90 *Please review for potential replacement for e-prescription and drug interaction check* Active Fluticasone Propionate 50 MCG/ACT 1 spray(s) in each nostril once a day Active SYRINGE 3CC 22G 1 - INTRAMUSCULARLY ONCE A MONTH; Duration: 30 DAYS *Please review for potential replacement for e-prescription and drug interaction check* 03/22/2018 Active Mirtazapine 15 MG 1 tab(s) orally once a day (at bedtime) Active Melatonin 5 MG 1 cap(s) orally once a day (at bedtime) Active Encounters Encounter Location Date Provider Diagnosis [facility] FISH [address] [facility] [address] [place] [address] 11/08/2024 Provider Migration MONI (generalized anxiety disorder) F41.1 Assessments Encounter Date Diagnosis (ICD Code) Assessment Notes Treatment Notes Treatment Clinical Notes Section Notes 11/08/2024 MONI (generalized anxiety disorder) (ICD-10 - F41.1) Plan Of Treatment Medication Medication Name Sig Start Date Stop Date Notes hydrOXYzine Pamoate 25 MG 1 cap(s) orall y 4 times a day; Duration: 14 days 05/19/2024 Progress Notes * Samara HAYWARDDOB:1945 (80 yo F)Acc No.[id number]:11/08/2024 Patient: Samara CASTILLO Provider: Robles andino Migration :1945 A ge:79 Y S ex:Female Date:11/08/2024 Address[address] [place], [id number] Pcp:Khadar Quintana Subjective: * Chief Complaints: * 1 . Multum To Medispan Conversion Encounter. * Medical History: * Medications: T aking Mirtazapine 15 MG Tablet 1 tab(s) orally once a day (at bedtime) , Taking Melatonin 5 MG Capsule 1 cap(s) orally once a day (at bedtime) , Taking Fluticasone Propionate 50 MCG/ACT Suspension 1 spray(s) in each nostril once a day , Taking SYRINGE 3CC 22G 1 - INTRAMUSCULARLY ONCE A MONTH , Notes to Pharmacist: *Please review for potential replacement for e-prescription and drug interaction check*, Taking Symbicort 160-4.5 MCG/ACT Aerosol 2 puff(s) inhaled 2 times a day , Taking Triamcinolone Acetonide 0.1 % Ointment 1 lupe applied topically 2 times a day , Taking Furosemide 20 MG Tablet 1 tab(s) orally once a day as needed for swelling , Taking Lisinopril 10 MG Tablet 1 tab(s) orally 2 times a day , Taking POTASSIUM CHLORIDE ([id number] M20) 20 MEQ TABLET, EXTENDED RELEASE TAKE 1 TABLET BY MOUTH ONCE DAILY FOR 90 DAYS , Notes to Pharmacist: *Please review for potential replacement for e-prescription and drug interaction check*, Taking traMADol HCl 50 MG Tablet 1 tab(s) orally three times daily as needed for pain , Taking clonazePAM 1 MG Tablet 1 tab(s) orally 2 times daily , Taking Gabapentin 100 MG Capsule 1 cap(s) orally 1 time a day for pain , Taking Atorvastatin Calcium 20 MG Tablet 1 tab(s) orally once a day * Allergies: C ephalexin: tachypnea, hives, Hibiclens: rash, ALL TAPE- EXCEPT PAPER TAPE: rash, IV DYE: rash. Objective: * Vitals: Assessment: * Assessment: 1. G AD (generalized anxiety disorder) - F41.1 (Primary) Plan: * Treatment: * * Electronic signature of Waldemar deluca Migration on 06/15/2025 at 10:00 AM EST Sign off status: Pending * Provider: Robles andino Migration Date: 0 11/08/2024 Generated for Rona robison/Chester/Sandy on: 08/15/2024 10:00 AM EST
[2025-06-11 17:02] LABS: Hematocrit 44.4 % (37.0-47.0); Hemoglobin 14.1 g/dL (12.2-16.2); Immature Granulocytes % 0.4 %; Mean Corpuscular HGB Conc 31.8 g/dL (31.8-35.4); Mean Corpuscular Hemoglobin 31.2 pg (27.0-31.2); Mean Corpuscular Volume 98.2 fl (81-99); Nucleated Red Blood Cells % 0 %; Platelet Count 218 K/mm3 (142-424); Red Blood Count 4.52 M/mm3 (4.20-5.40); Red Cell Distribution Width-SD 46.1 fL; White Blood Count 8.3 K/mm3 (4.8-10.8)
[2025-06-11 17:21] LABS: Albumin Level 4.6 g/dl (3.5-5.0); Chloride 105 mmol/L (98-107); Potassium 4.3 mmoL/L (3.5-5.1); Sodium 141 mmol/L (136-145)
[2025-06-11 17:23] LABS: Blood Urea Nitrogen 13 mg/dl (7-17); Creatinine,Serum 0.70 mg/dl (0.52-1.04); Estimated Glomerular Filt Rate 81 ml/min (>60); GFR (African American) 98 ML/MIN (>60)
[2025-06-11 17:24] LABS: Alanine Aminotransferase 14 U/L (12-78); Albumin/Globulin Ratio 2.2 (1.1-1.8); Alkaline Phosphatase 103 U/L (38-126); Anion Gap 12.3 mEq/L (5-15); Aspartate Amino Transferase 26 U/L (14-36); Bilirubin,Total 0.6 mg/dl (0.2-1.3); Calcium 8.9 mg/dl (8.4-10.2); Carbon Dioxide 28 mmol/L (22.0-30.0); Cholesterol 171 mg/dl (140-200); Globulin 2.1 g/dL (1.3-3.2); Glucose 82 mg/dl (74-100); HDL Cholesterol 52 mg/dl (40-60); Total Protein,Serum 6.7 g/dl (6.3-8.2); Triglycerides 110 mg/dl (30-150)
[2025-06-11 17:56] LABS: Thyroid Stimulating Hormone 2.29 uIU/mL (0.465-4.68)
--- OUTSIDE RECORDS SUMMARY | 2025-06-15 09:58 | XMS_ITS | Clinical Summary ---
[facility] [address] [place] [address] Care Team Providers Care Escort Patients Name Role Phone Nabeel Rios MD Primary Care Provider [phone] Active Problems Problem Noted Date Diagnosed Date [...] Description 06/30/2025 3:00 PM EST Office Visit [facility] RHEUMATOLOGY [address] [place] [address] Vin Love MD [address] [facility] [address] [place] [address] Health Maintenance Due Date Last Done Comments DXA SCAN 1945 ZOSTER VACCINE (1 of 2) 1996 RSV Vaccine - Adults (1 - 1- dose 75+ series) 2021 ANNUAL WELLNESS VISIT 09/26/2024 HEPATITIS C SCREENING 09/26/2024 INFLUENZA VACCINE 03/06/2025 04/18/2023, , 06/09/2020, Additional history exists COVID-19 Vaccine (4 - 2024-2 6 season) 2025 06/29/2021, 11/05/2020, 10/05/2020 TDAP/TD VACCINES (2 - Td or Tdap) 2033 023 COLONOSCOPY Discontinued 10/03/2016, 10/03/2016 COLORECTAL CANCER SCREENING Discontinued Pneumococcal Vaccine 50+ Completed 06/09/2020, 04/07 COLOGUARD Discontinued COLON CANCER SCREENING 5 YEA R SIGMOIDOSCOPY Discontinued CT COLONOGRAPHY Discontinued FECAL OCCULT BLOOD TEST Discontinued FIT Testing (1 year) Discontinued Insurance [facility] MEDICARE ADVANTAGE PPO Care Teams Escort Patients Relationship Specialty Start Date End Date Nabeel Rios MD [address] [facility] [address] [place] [id number] PCP - General Internal Medicine 01/15/25
--- OUTSIDE RECORDS SUMMARY | 2025-06-15 09:58 | XMS_ITS | Encounter Summary ---
Author Organization Healthcare Address [address] [place] [address] Care Team Providers Care Fire Loss Prevention Engineer Name Role Phone Nabeel Rios MD Primary Care Provider [phone] Encounter Details Date Type Department Care Team ([facility] Contact Info) Description 05/06/2025 Telephone Medical Office Building Obstetrics and Gynecology [address], [address] [place] [address] Angelina Carl APRN [address] [facility] [address] [place] [address] Social History Tobacco Use Types Packs/Day Years Used Date Smoking Tobacco: Former Smokeless Tobacco: Never Comments:Former light tobacc o smoker Comments Unknown Sex and Gender Information Value Date Recorded Sex Assigned at Not on file Legal Sex Female 7:50 PM EDT Gender Identity Not on file Sexual Orientation Not on file documented as of this encounter Miscellaneous Notes * Telephone Encounter - Gloria Iyer - 05/07/2025 12:43 PM EDT Contacted patient. Informed patient unfortunately, due to cancellation, [facility] is now booked to September regarding new patients. Patient agreed to time and date of September 22 at 2:00pm. ALISHA Castro * Telephone Encounter - Radha Horta - 05/07/2025 10:35 AM EDT Status Update Call #1 1st call regarding the status of the initial request. Best contact number: [phone] Optimal time of day to reach caller: ANYTIME Additional comments/information from caller: Pt is returning call. Please call. Note: Please do not reply to this message. Follow-up communication and further actions as a result of this message need to be communicated with the patient directly, if the patient is not active onMyChart. If the patient is active on MyChart, they will receive notification of the communication/outcome via MyChart. * Telephone Encounter - Gloria Iyer - 05/07/2025 9:54 AM EDT Contacted patient. No answer. Could not leave vm due to box not being set up. Will try back later. Second attempt. AILSHA Castro * Telephone Encounter - Gloria Iyer - 05/06/2025 11:30 AM EDT Contacted patient. No answer. Could not leave vm due to box not being set up. Will try back later. ALISHA Castro * Telephone Encounter - Martha Sanford - 05/06/2025 11:00 AM EDT Clinical Concern/Question Reason for Call: Pt wants a later in the week apt with , I cancelled 05/11 apt. Pt is having phone issues and may not get the call. Please call pt to r/s. Best contact number: [phone] (home) Optimal time of day to reach caller: ANYTIME Additional comments/information from caller: Not Applicable Note: Please do not reply to this message. Follow-up communication and further actions as a result of this message need to be communicated with the patient directly, if the patient is not active onMyChart. If the patient is active on MyChart, they will receive notification of the communication/outcome via MyChart. documented in this encounter Plan of Treatment Upcoming Encounters Date Type Department Care Team (Late st Contact Info) Description 09/22/2025 2:00 PM EST Office Visit Medical Office Building Obstetrics and Gynecology [address] [facility], [address] [place] [address] Angelina Carl, BEATER ROOM SUPERVISOR [address] [address] [place] [address] documented as of this encounter Visit Diagnoses Not on filedocumented in this encounter Care Teams Fire Loss Prevention Engineer Relationship Specialty Start Date End Date Nabeel Rios MD [address] [place] [address] PCP - General 05/06/25 documented as of this encounter
--- OUTSIDE RECORDS SUMMARY | 2025-06-15 09:58 | XMS_ITS | Encounter Summary ---
Author Organization Healthcare Address [address] [place] [address] Care Team Providers Care Manager Nursing Home Name Role Phone Nabeel Rios MD Primary Care Provider [phone] Encounter Details Date Type Department Care Team ([facility] Contact Info) Description 05/06/2025 Orders Only Medical Office Building Obstetrics and Gynecology [address] [facility], [address] [place] [address] Rosa Marks [place] [id number] Social History Tobacco Use Types Packs/Day Years Used Date Smoking Tobacco: Former Smokeless Tobacco: Never Comments:Former light tobacc o smoker Comments Unknown Sex and Gender Information Value Date Recorded Sex Assigned at Not on file Legal Sex Female 7:50 PM EDT Gender Identity Not on file Sexual Orientation Not on file documented as of this encounter Plan of Treatment Upcoming Encounters Date Type Department Care Team (Late Contact Info) Description 09/22/2025 2:00 PM EST Office Visit Medical Office Building Obstetrics and Gynecology [address] [facility], [address] [place] [address] Angelina Carl, MARGARITA [address] [facility] [address] [place] [address] documented as of this encounter Visit Diagnoses Not on filedocumented in this encounter Care Teams Manager Nursing Home Relationship Specialty Start Date End Date Nabeel Rios MD [address] [place] [address] PCP - General 05/06/25 documented as of this encounter
--- OUTSIDE RECORDS SUMMARY | 2025-06-15 09:58 | XMS_ITS | Data Portability ---
Author Organization [facility] Address [address] [place] [address] Care Team Providers Care Chauffeur [employer] Name Role Phone ZANE RAMSAY Primary Care Provider ZAIN RUIZ Referring Provider Assessment Encounter Date Assessment Date Assessment LastModified by Organization Details LastModified Time 05/12/2024 05/12/2024 HPI: This is a 79-year-old female with chronic low back and leg pain She is referred by Dr. English for spinal cord submitted trial, prior surgical history includes lumbar fusion in 2002. This was performed in [place]. Injection therapy in the past at the [place] pain [facility] with short-term benefit. No prior [...] Much of this encounter is an electronic mini bar attendant/santillan slation of spoken language to printed text. [...] fusion in 2002. This was performed in [place]. Injection therapy in the past at the [place] pain clinic with short-term benefit. No prior [...] clinic for sooner follow up if needed. [email or web address] Not available 09/04/2024 16:23:20 Plan of Treatment Reminders Order Date Submit Date Provider Last Modified By Organization Details Last Modified Time Details Appointments None recorded. Lab HbA1c (hemoglobi n A1c), blood 2024 025 [facility], [facility], [address] [place] [address], [address], 5 16:08:12 methicilli n resistant staphyloco ccus aureus, culture, nasal 2024 025 [email or web address] [facility], [facility], [address] [place] [address], [address], 5 16:08:12 HbA1c (hemoglobi n A1c), blood 2023 024 [facility], [facility], [address] [place], [address], 4 10:41:07 methicilli n resistant staphyloco ccus aureus, culture, nasal 2023 024 [email or web address] [facility], [facility], [address] [place] [address], [place], [address], 4 07:22:[address] referral - Please eval for spinal cord stimulator . patient is requesting an in-person consult. please contact with any issues! Thank you! 2024 025 [email or web address] [facility], [address], [place], [address], 5 16:06:[address] referral 2023 024 [email or web address] [facility], [address], [place], [address], 4 10:40:08 Procedures spinal cord stimulator trial (PROC) - SCS Trial 1.) Psych: [facility] - referred 09/17/24 2.) Clearances : none 3.) Hold Meds: none 4.) Labs: A1C, MRSA [+], CBC [09/2024] *VANCO *MRI Tspine [pending scheduling ] 2024 025 [email or web address] Not available 5 16:07:13 remote therapeuti c monitoring to monitor musculoske letal system (PROC) 2024 025 [email or web address] Not available 5 16:23:42 remote therapeuti c monitoring to monitor musculoske letal system (PROC) 2023 024 [email or web address] Not available 4 08:57:18 spinal cord stimulator trial (PROC) 2023 024 [email or web address] Not available 4 10:40:59 Surgeries None recorded. Imaging MRI, thoracic spine, w/o contrast - Spinal Cord Stimulator Workup, please evaluate patency of thoracic canal for placement of percutaneo us stimulator lead, entry point T12/L1, terminatio n of tip likely T7 superior endplate [address], [address], [address], [place], [address], 5 09:03:07 MRI, thoracic spine, w/o contrast - Spinal Cord Stimulator Workup, please evaluate patency of thoracic canal for placement of percutaneo us stimulator lead, entry point T12/L1, terminatio n of tip likely T7 superior endplate [address] ([facility]), [address], [place], [address], 4 10:14:33 Medication Orders Hibiclens 4 % topical liquid [email or web address] [place] [address] [address], [facility] [place] [place], [address], 16:23:30 Hibiclens 4 % topical liquid 2023 025 [facility], [address] [place], [address], 15:12:39 Patient TargetsNo targets recorded. Patient Instructions Encounter Date Encounter Id Patient Instructions Last Modified By Organization Details Last Modified Time 05/12/2024 [id number] behavioral healt h screen* Not available 05/15/2024 11:30:55 Education and training for patient self-management by a qualified, nonphysician health personal care worker using a standardized curriculum, [id number] with the patient; individual patient* [email or web address] Not available 05/15/2024 11:31:26 spinal cord stimualtor trial information Not available 05/12/2024 16:43:57 09/04/2024 [id number] Education and training for patient self-management by a qualified, nonphysician health personal care worker using a standardized curriculum, [id number] with the patient; individual patient* [email or web address] Not available 10/08/2024 07:42:35 spinal cord stimualtor trial information [email or web address] Not available 09/04/2024 16:23:30 behavioral healt h screen* [email or web address] Not available 10/08/2024 07:42:35 Reason for Referral [...] Address Organization Details Recorded Time Lumbar spondylosis 110900403 Active 2023 Madeline Lagace null, [place] - [facility] 4 15:55:35 Chronic pain 21011235 Active 2023 Madeline Lagace null, [place] - [facility] 4 15:55:35 Lumbar radiculopathy 270188222 Active 2023 Madeline Lagace null, [place] - [facility] 4 15:55:35 Overweight 742516057 Active 2023 Madeline Lagace null, [place] - [facility] 4 15:55:37 Lumbar post-laminecto my syndrome 764838810 Active 2023 Madeline Lagace null, [place] - [facility] 4 16:32:20 Problem Notes None recorded. Procedures Surgical History Date Name Laterality Status Provider Name and Address Organization Details Recorded Time Appendectomy completed Tiffani Alvarado [place] - [facility] 05/08/2024 09:20:54 Carpal tunnel surgery completed Tiffani ZIMMERMAN - [facility] 05/08/2024 09:21:31 complete repair of rotator cuff completed Tiffani ZIMMERMAN - [facility] 05/08/2024 09:22:03 Hysterectomy completed Tiffani ZIMMERMAN - [facility] 05/08/2024 09:22:19 procedure on gallbladder completed Tiffani ZIMMERMAN - [facility] 05/08/2024 09:22:29 total replacement of hip completed Tiffani ZIMMERMAN - [facility] 05/08/2024 09:22:50 Imaging Results None recorded. Procedure Notes None recorded. Medical Equipment None Reported. Allergies Allergen ID Allergen Name Allergen Category Reaction Reaction Severity Criticality Documentation Date Start Date Code Code System Note Provider Name and Address Organization Details Recorded Time 080301 Bactroban medicatio n Not available Not available Not available 04/15/2024 02489 1 RxNorm Nayeli noemier ELSIE gamboa - [facility] 4 13:27:23 548931 Betadine medicatio n Not available Not available Not available 04/15/2024 51612 0 RxNorm Nayeli ELSIE dia - [facility] 4 13:27:29 687168 Keflex medicatio n Not available Not available Not available 04/15/2024 10049 7 RxNorm Nayeli ELSIE dia - [facility] 4 13:29:16 141599 nickel environme nt Not available Not available Not available 04/15/2024 33047 29 RxNorm Nayeli noemier bee, ELSIE - [facility] 4 13:29:21 Medications Name Sig Start Date [...] saturation in Arterial blood by Pulse oximetry Pain severity - 0-10 verbal numeric rating [Score] - Reported Systolic And Diastolic Provider Name and Address Organization Details Last Updated DateTime 5 154.94 cm 30.2 kg/m2 34770.7 8 g 76 /min 96 % 96 % 10 138/71 mm[Hg] Fausto Kaye [facility] 5 15:11:26 Date Recorded Body height Body mass index (BMI) Body weight Heart rate Oxygen saturation Oxygen saturation in Arterial blood by Pulse oximetry Systolic And Diastolic Provider Name and Address Organization Details Last Updated DateTime 4 154.94 cm 30.2 kg/m2 01587.7 8 g 79 /min 96 % 96 % 125/76 mm[Hg] Madeline Henry [facility] 4 15:57:10 Social History Question Answer Notes LastModified by Organizat ion Details LastModified Time Tobacco Smoking Status Never Smoker Tiffani gamboa [facility] 05/08/2024 09:20:39 Do You Have An Advance Directive? Yes Information not available 05/12/2024 What Type Of Diet Are You Following? REGULAR Information not available 05/12/2024 What Is The Highest Grade Or Level Of School You Have Completed Or The Highest Degree You Have Received? [id number] Information not available 05/12/2024 Do You Have A Medical Power Of Travel Guide? Yes Information not available 05/12/2024 What Was [...] Disease N Seizure Disorder N Gout N Atrial Fibrillation N Thyroid Disease N Hernia N Head Trauma/Injury N COPD N Depression N Anxiety Disorder N Acid Reflux (GERD) N Cancer N Stroke N Skin Disorder N High Cholesterol N Liver Disease Y Rheumatoid Arthritis N Headaches N Fibromyalgia N Kidney Disease N Autoimmune Disease N Osteoarthritis N Neurosurgery N DVT N Peptic Ulcer Disease N Anemia N Heart Attack (ME) N Diabetes N Cardiomyopathy N Bleeding Disorder [...] Diagnosis SNOMED-CT Code Diagnosis ICD10 Code Diagnosis IMO Codes Diagnosis Note [id number] OSCAR STONE MD [place] [address] [place] [address] 05/12/2024 14:25:01 05/12/2024 17:28:44 Lumbar spondylosis 775211383 M47.816 Lumbar radiculopathy 128 713310 M54.16 Chronic pain 10395446 G8 9.29 Lumbar post-laminectomy syndrome 293808857 M96.1 [id number] OSCAR STONE MD [place] [address] [place] [address] 09/04/2024 14:41:19 09/04/2024 15:51:07 Lumbar radiculopathy 987193165 M54.16 Chronic pain 13135202 G8 9.29 Lumbar post-laminectomy syndrome 755917009 M96.1 Health Concerns Section Related Observation LastModified by Organization Detai ls LastModified Time None Recorded Concern Status LastModified by Organization Details LastModified Time None Recorded Advance Directives Directive Y: Payers Insurance Date Sequence Insurance Name Policy Number Policy Alexander Covered Member ID Alexander Member ID Guarantor Name 09/08/2024 1 [employer] (MEDICARE REPLACEMENT/ ADVANTAGE - PPO) Samara Hayward [id number] Samara Hayward Notes Date Note Type Note Provider Name and Address Organization Details Recorded Time 05/12/20 24 text/ht ml Low back painReported by PatientHPIFor associated symptoms, patient reportsweaknessandnumbnessbut reportsno tingling,no swelling,no popping/clicking,no bowel incontinence,no urinary retention,no urinary incontinence, andno perineal paresthesia/anesthesia(after epidural she started having pain in groin area). For functional assessment of adls, patient reportsdifficulty completing fitting room checker secondary to pain.but reportsable to bathe/groom without assistance.. For adverse reactions, patient reportsconstipationbut reportsno nausea,no vomiting,no itching,no respiratory depression, andno sexual dysfunction. For onset, patient reportsdate of onset: (1999). For location, patient reportsmidline,buttock: __, andradiating down the left lower extremity to the knee. For duration, patient reportsworse in the morning,worse during the day, andworse at nighttime. For context, patient reportsstarted without cause(pt states she fell going down a hill when she was in her 40s, but isnt sure if thats what caused her pain now). For quality, patient reportsaching,burning, andthrobbing. For pain intensity, patient reportssevere,current pain level: 10/10, andworst pain level: 10/10. For alleviating factors, patient reportsrest,otc medication (ibuprofen not effective), andcortisone injection (2021). For aggravating factors, patient reportsstanding,carrying,bending /squatting, andpushing/pulling. For prior imaging, patient reportsmri (01/14/2024). For lumbar surgery, patient reportslumbar spinal fusion:(surgery 2002). For physical therapy, patient reportscompleted all recommended pt visits,complete more than 6weeks, andresponse to therapy: made pain/symptoms worse. For current analgesics, patient reportstramadol not effectiveandgabapentin not effective. For other conservative treatments, patient reportsheat: effective. For prior pain management, patient reportsyes:([facility], heating pad helps while shes using it). For oswestry disability index (shad), patient reportsscore/date completed: (05/12/2024 60). For for female patients, patient reportsare you ? no. For medications history, (pt takes ibuprofen). Low back pain that radiates left side to foot , SHAD 60 PHQ 2 OSCAR STONE MD [address] [place] [address], [address], [facility] 05/12/2024 16:44:02 09/04/19 25 text/ht ml Low back painReported by PatientHPIFor associated symptoms, patient reportsweaknessandnumbnessbut reportsno tingling,no swelling,no popping/clicking,no bowel incontinence,no urinary retention,no urinary incontinence, andno perineal paresthesia/anesthesia(after epidural she started having pain in groin area). For functional assessment of adls, patient reportsdifficulty completing fitting room checker secondary to pain.but reportsable to bathe/groom without assistance.. For adverse reactions, patient reportsconstipationbut reportsno nausea,no vomiting,no itching,no respiratory depression, andno sexual dysfunction. For onset, patient reportsdate of onset: (1999). For location, patient reportsmidline,buttock: __, andradiating down the left lower extremity to the knee. For duration, patient reportsworse in the morning,worse during the day, andworse at nighttime. For context, patient reportsstarted without cause(pt states she fell going down a hill when she was in her 40s, but isnt sure if thats what caused her pain now). For quality, patient reportsaching,burning, andthrobbing. For pain intensity, patient reportssevere,current pain level: 05/15, andworst pain level: 05/15. For alleviating factors, patient reportsrest,otc medication (ibuprofen not effective), andcortisone injection (2021). For aggravating factors, patient reportsstanding,carrying,bending /squatting, andpushing/pulling. For prior imaging, patient reportsmri (01/14/2024). For lumbar surgery, patient reportslumbar spinal fusion:(surgery 2002). For physical therapy, patient reportscompleted all recommended pt visits,complete more than 6weeks, andresponse to therapy: made pain/symptoms worse. For current analgesics, patient reportstramadol not effectiveandgabapentin not effective. For other conservative treatments, patient reportsheat: effective. For prior pain management, patient reportsyes:([facility], heating pad helps while shes using it). For oswestry disability index (shad), patient reportsscore/date completed: (05/12/2024 60). For for female patients, patient reportsare you ? no. For medications history, (pt takes ibuprofen).ROS as noted in the HPI pt states she is in pain. LEFTY BERNARDO [address] [place] [address], [place], [address], [facility] 09/04/2024 16:24:01 OBGyn Episode No OBEpisode recorded.
--- OUTSIDE RECORDS SUMMARY | 2025-06-15 09:58 | XMS_ITS | Data Portability ---
Author Organization [facility] Address [address] [place] [address] Assessment No assessment recorded. Plan of Treatment Reminders Order Date Submit Date Provider Last Modified By Organization Details Last Modified Time Details Appointments None recorded. Lab noninvasiv e colorectal cancer DNA + occult blood screening, QL, stool 2023 024 [email or web address] 3 [facility], [address], [address], [place], [address], 4 13:16:20 urinalysis , dipstick 2023 024 [facility], [address] [place] [address], [place], [address], 4 14:15:11 culture, urine 2023 024 NAHEED [facility] ([place]), [address] [place], [address], 4 01:06:52 vaginal pathogens panel, MARGOT+probe, vaginal fluid 2023 024 [email or web address] 3 [facility] ([place]), [address] [place], [address], 4 13:16:04 Referral None recorded. Procedures None recorded. Surgeries None recorded. Imaging MAMMO, screening, digital, bilateral [email or web address] [place] [address] ([facility]), [address] [place] [address] [place], [address], 13:41:56 DEXA [address] ([facility]), [address] [place] [address] [place], [address], 13:42:07 Medication Orders Cipro 500 mg tablet 2023 024 [facility], [address] [place], [address], 14:15:09 Patient TargetsNo targets recorded. Patient InstructionsNo instructions recorded. Reason for Referral None Reported. Results Created Date Observation Date Name Description Value Unit Range Abnormal Flag Note LastModifiedBy Organization Detail LastModifiedTime 06/09/2006/12/2024 URINE CULTU RE, ROUTI NE urine culture, routine Final report abnormal Not Available [facility] ([facility]) [address] [facility], [place], [address], 06/12/2024 01:06:52 06/09/20 24 06/12/2024 URINE CULTU [...] ng units per mL Not Available [facility] ([facility]) [address] [facility], [place], [address], 06/12/2024 01:06:52 06/09/20 24 06/12/2024 URINE CULTU [...] thopr im/Gill lfa S Not Available [facility] ([facility]) [address] [facility], [place], [address], 06/12/2024 01:06:52 06/09/20 24 06/09/2024 urina lysis , dipst ick Leukocytes Small Not Available [address], [address], 06/09/2024 13:34:38 06/09/20 24 06/09/2024 urina lysis , dipst ick Nitrite negati ve Not Available [address], [address], 06/09/2024 13:34:38 06/09/20 24 06/09/2024 urina lysis , dipst ick Urobilinogen .2 Not Available [address], [address], 06/09/2024 13:34:38 06/09/20 24 06/09/2024 urina lysis , dipst ick Protein Negati ve Not Available [address], [address], 06/09/2024 13:34:38 06/09/20 24 06/09/2024 urina lysis , dipst ick pH 5.5 Not Available [address], [address], 06/09/2024 13:34:38 06/09/2006/09/2024 urina lysis , dipst ick Blood Small Not Available [address], [address], 06/09/2024 13:34:38 06/09/2006/09/2024 urina lysis , dipst ick Specific Pompe[place] 1.025 Not Available [address], [address], 06/09/2024 13:34:38 06/09/2006/09/2024 urina lysis , dipst ick Ketone Negati ve Not Available [address], [address], 06/09/2024 13:34:38 06/09/2006/09/2024 urina lysis , dipst ick Bilirubin Small Not Available [address], [address], 06/09/2024 13:34:38 06/09/2006/09/2024 urina lysis , dipst ick Glucose Negati ve Not Available [address], [address], 06/09/2024 13:34:38 06/09/2006/09/2024 urina lysis , dipst ick Appearance Clear Not Available [address], [address], 06/09/2024 13:34:38 06/09/2006/0906/09/2024 urina lysis , dipst ick Color Yellow Not Available [place] [address] [facility], [place], [address], 06/09/2024 13:34:38 Result Notes None recorded. Problems Name Problem SNOMED Code Status Onset Date Resolution Date Notes Provider Name and Address Organization Details Recorded Time Blood in urine 41820573 Active 2023 Crispin Boyd MD [address] [place] [address], [address], [employer] 13:44:38 Screening mammography Active 2023 Crispin Boyd MD [address] [place] [address], [address], [employer] 13:44:40 Screening for osteoporosis Active 2023 Crispin Boyd MD [address] [place] [address], [address], [employer] 13:44:42 Screening for malignant neoplasm of colon Active 2023 Crispin Boyd MD [address] [place] [address], [address], [employer] 13:44:44 Relaxation of pelvic floor 780338248 Active 2023 Crispin Boyd MD [address] [place] [address], [address], [employer] 14:15:17 Problem Notes None recorded. Procedures Surgical History Date Name Laterality Status Provider Name and Address Organization Details Recorded Time Pessary Check completed Crispin Boyd MD [address] [place] [address], [address], [employer] 06/10/2024 08:59:35 Imaging Results None recorded. Procedure Notes None recorded. Medical Equipment None Reported. Allergies Allergen ID Allergen Name Allergen Category Reaction Reaction Severity Criticality Documentation Date Start Date Code Code System Note Provider Name and Address Organization Details Recorded Time 92176 Keflex medicatio n Not available Not available Not available 06/09/202456464 7 RxNorm Crystal Lauryn null, [employer]. 4 13:37:42 00045 Betadine medicatio n Not available Not available Not available 06/09/2024 0 RxNorm Crystal Lauryn null, [employer] 4 13:46:32 13013 Hibiclens medicatio n Not available Not available Not available 06/09/2024 [address]9075 2 RxNorm Crystal Lauryn null, [employer] 4 13:47:09 Medications Name Sig Start [...] Updated DateTime 4 154.94 cm 30 kg/m2 11894.7 5 g 72 /min 99 % 99 % 130/72 mm[Hg] Pati Combs [employer]. 14:22:05 Social History Question Answer Notes LastModified by Organizat ion Details LastModified Time Tobacco Smoking Status Never Smoker Pati gamboa, [employer]. 06/09/2024 13:30:00 What Was The Date Of Your Most Recent Tobacco Screening? 06/09/2024 [email or web address] Information not available 06/09/2024 What Is Your Relationship Status? [email or web address] Information not available 06/09/2024 Has Tobacco Cessation Counseling Been Provided? No [email or web address] Information not available 06/09/2024 Sex: Unknown Functional Status Question Answer Note LastModified by Organization D etails LastModified Time Do you or have you ever used any other forms of tobacco or nicotine? No [email or web address] Information not available 06/09/2024 Mental Status None [...] or 50 mcg/0.25mL dose 1 completed Pati gamboa, [employer] 06/09/2024 13:47:52 COVID-19, mRNA, LNP-S, PF, 100 mcg/0.5mL dose or 50 mcg/0.25mL dose 1 completed Pati gamboa, [employer]. 06/09/2024 13:47:52 COVID-19, mRNA, LNP-S, PF, 100 mcg/0.5mL dose or 50 mcg/0.25mL dose 1 completed Pati gamboa, [employer] 06/09/2024 13:47:52 pneumococcal polysaccharide PPV23 0 completed Pati Combs [employer], [employer] 06/09/2024 13:47:52 Tdap 3 completed Pati gamboa, [employer] 06/09/2024 13:47:52 Pneumococcal conjugate PCV 13 7 completed Pati Combs null, [employer] 06/09/2024 13:47:52 Influenza, high-dose, trivalent, PF 3 completed Pati Combs null, [employer] 06/09/2024 13:47:52 Influenza, high-dose, trivalent, PF 8 completed Crystal Lauryn null, [employer] 06/09/2024 13:47:52 Influenza, high-dose, trivalent, PF 0 completed Pati Combs null, [employer] 06/09/2024 13:47:52 Influenza, high-dose, trivalent, PF 9 completed Pati Combs null, [employer] 06/09/2024 13:47:52 Past Encounters Encounter ID Performer Location Encounter Start Date Encounter Closed Date Diagnosis/Indication Diagnosis SNOMED-CT Code Diagnosis ICD10 Code Diagnosis IMO Codes Diagnosis Note [id number] Crispin Boyd MD [address] [address] 06/09/2024 13:30:51 06/09/2024 14:29:09 Blood in urine 58245302 R31.9 By history the patient notes blood [...] associated third-degr ee cystocele. Screening mammography 24 108208 Z12.31 This 71-year-ol d man with yeah there is no doing better right effusion tell me with patient has not had a mammogram in over 10 years. Monthly self breast exam strongly advised. She has no family history of breast cancer Screening for osteoporosis 220084295 Z13.820 Patient does not recall ever having had a bone density study. I have advised she take 1200 mg calcium daily along with vitamin D3. Screening for malignant neoplasm of colon 288232757 Z12.11 Patient states she had a colonoscop y more than 10 years ago but has not had any follow-up since. She declines a colonoscop y at this point. I have offered her a Cologuard instead ,noting its limitation s. Patient is agreement with this. 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 She originally stated she did not know of this but on further questionin g an attempt was made with pessary placement [address] Valdez in [place]. She was fitted today with a #4 [...] (MEDICARE REPLACEMENT/A DVANTAGE - PPO) Samara Hayward [id number] Samara Hayward 06/09/2024 MEDICARE A-[place]: [employer] [facility] Samara Hayward [id number] Samara Hayward Notes Date Note Type Note Provider Name and Address Organization Details Recorded Time 06/09/2024 text/html ROS as noted in the HPI Patient is a 79-year-old white female G2, [...] in over 10 years. Crispin Boyd MD [address] [place] [address], [address], [facility] [employer] 06/10/2024 09:00:03 OBGyn Episode No OBEpisode recorded.
--- OUTSIDE RECORDS SUMMARY | 2025-06-15 09:58 | XMS_ITS | Encounter Summary ---
Author Organization [employer] ([place], [place], [place], [place], [place]) Address [address] [place] [address] Care Team Providers [employer] Sales Consultant Name Role Phone Unavailable Primary Care Provider Lisset e Encounter Details Date Type Department Care Team (Late st Contact Info) Description 03/31/2019 Transcribed Document [facility] Family [place] [facility] [place] [address] ProviderSb MD [address] [place] [address] Social History Tobacco Use Types Packs/Day Years Used Date Smoking Tobacco: Never Assessed Comments Unknown Sex and Gender Information Value Date Recorded Sex Assigned at Not on file Legal Sex Female 1:50 PM CDT Gender Identity Not on file Sexual Orientation Not on file documented as of this encounter Miscellaneous Notes * [employer] Conversion Note - Sb Man MD - 03/31/2019 10:41 AM CDT Patient: SHARONDA GEORGE Age: 74 years Sex: Female : 1945 Associated Diagnoses: None Author: YAMILETH OMER MD-ORT PREOPERATIVE DIAGNOSIS(ES): DJD Left Hip POSTOPERATIVE DIAGNOSIS(ES): Same PROCEDURE: Left total hip arthroplasty through direct anterior approach. SURGEON: Yamileth Omer M.D. ORE FEEDER: Eleazar Lockett assisted the surgeon in completing the operation safely and expeditiously by helping to provide exposure, maintain hemostasis, optimising prostheses position, perform wound closure, and serve other technical functions . Prostheses: BIOMET 48 G7 Acetabular Shell, 32x48 E1 Poly Liner 8 High Offset Taperloc femur; -6 neck ,32 mm Delta Ceramic Head DESCRIPTION OF PROCEDURE: The patient was taken to the operating room and after satisfactory general anesthesia was placed supine on the Clive table. The feet were positioned in the Clive boots with the feet well padded. The Left hip and thigh were sterilely scrubbed, prepped, and draped in the usual sterile manner. The incision was made 2 cm lateral than distal to the ASIS in line with the fibers of the tensor fascia terrell towards the intertrochanteric line anteriorly. The incision was carefully carried down through the subcutaneous tissue. The fascia was incised and the fascia overlying the extensor was identified. This was split longitudinally and was meticulously dissected off the tensor. The area between the tensor and the rectus and sartorius medially was dissected, taking this down to the anterior capsule. The circumflex vessels were identified and trreated witht the Aquamantis for control of potential bleeding. The capsule was subsequently cut in a T starting on the base of the neck and extending this proximally and paralleling the longitudinal axis of the femur, the other limb of the T created anterior and posterior flap capsule. Appropriate releases were performed, first on the anterior aspect of the neck down to the greater trochanter, and up in the saddle region of the greater trochanter and finally, the posterior capsule at the posterior aspect of the acetabulum. Appropriate blunt retractors were inserted being careful to avoid potential pressure on the femoral nerve The femoral neck was then identified. The neck angle was determined using the image intensifier. and cut at the appropriate angle. The acetabulum was then exposed by externally rotating the femur and putting retractors around the acetabulum. Acetabular osteophytes were excised. The Acetabulum prepared to hold a prosthesis at 45degrees angle of inclination and 15 degrees of anteversion. The final acetabular shell was inserted ,checked with the C arm and once this was determined to be satisfactory The poly liner inserted in the proper position and impacted. The hook for the Clive table was then inserted distally to the greater trochanter. The leg was externally rotated then lowered to the floor . The neck was identified and further releases performed, in the saddle and into the medial aspect of the greater trochanter. This allowed the femoral neck to be brought up into the operative field. The femur was then prepared with the [employer] instruments, first using the canal finder/ rat-tail rasp to be certain of the center of the canal. The canal was sequentially broached to hold the final size 8 High Offset prosthesis This design was selected to help decrease leg lengthening Trial reductions were performed to determine ideal stability and confucianism of proper leg length. confirmed by the image intensifier. The final prostheses were impacted in position and the ceramic head then impacted on the Ko taper of the stem with the -[address] The hip was reduced. The patient had confucianism of leg length checked by the image intensifier. Although measured as slightly longer than the Right hip this reproduced her preop anatomy. The wound was then copiously irrigated with antibiotic solution. One drain was inserted.The fascia was closed with multiple interrupted sutures of 0 Vicryl, followed by running suture of Zero PDO Quill. Subcutaneous tissue was then closed with interrupted sutures of 2-0 Vicryl. Skin was closed with running subcuticular of 2-0 PDO and the Prineo Dermabond. Sterile dressing was applied and the patient transferred to the recovery room in satisfactory condition. Electronically signed by Vinita Fountain Conversion Registered Respiratory Therapist [place] at 11/21/2022 4:28 PM CDT documented in this encounter Plan of Treatment Not on file documented as of this encounter Visit Diagnoses Not on filedocumented in this encounter
--- OUTSIDE RECORDS SUMMARY | 2025-06-15 09:58 | XMS_ITS | Encounter Summary ---
Author Organization [employer] ([place], [place], [place], [place], [place]) Address [address] [place] [address] Care Team Providers Care Research Advisor Name Role Phone Unavailable Primary Care Provider Unavailabl e Encounter Details Date Type Department Care Team (Late st Contact Info) Description 04/03/2019 Transcribed Document [facility] [facility] [place] [address] ProviderSb MD [address] [place] [id number] Social History Tobacco Use Types Packs/Day Years Used Date Smoking Tobacco: Never Assessed Comments Unknown Sex and Gender Information Value Date Recorded Sex Assigned at Not on file Legal Sex Female 1:50 PM CDT Gender Identity Not on file Sexual Orientation Not on file documented as of this encounter Miscellaneous Notes * Cerner Conversion Note - Sb Man MD - 04/03/2019 3:08 PM CDT [place] [id number] SHARONDA GEORGE :1945 Visit Time:03/31/2019 Your Visit Summary Your Care Team Admitting Physician - YAMILETH OMER MD-ORT Attending Physician - YAMILETH OMER MD-OREvelio Referring Physician - YAMILETH OMER MD-OREvelio Your Diagnosis Aortic stenosis At risk for sleep apnea Fever, Resolved Hip pain, left HTN HypoxemiaResolved now oxygen saturation 97% on room air Obesity (BMI 30.0-34.9) Panic attacks Status post total hip replacement, left Unilateral primary osteoarthritis, left hip, Unilateral primary osteoarthritis, left hip, Unilateral primary osteoarthritis, left hip Discharge Vitals Respiratory Rate 16 What to do next Instructions From Your Care Team Discharge Follow Up Instructions: follow-up with Dr. Quiroga scheduled, Order Comment: Follow-up with PCP as scheduled or PRN Activity: as per Dr. Quiroga recommendations, Discharge Activity: Other (use Special Instructions) Diet: Discharge Diet: Resume usual diet as tolerated Follow-Up Appointments Follow Up with Follow up with surgeon When Within 2 to 3 days Medications What How Much When Instructions Next Dose acetaminophen-oxyCODONE (Percocet 7.5/ 325 oral tablet) 1 Tablet(s) Oral Every 4 Hours as needed for for pain Duration: 10 Day(s) 1 by mouth every 4-6 hours when necessary rivaroxaban (Xarelto 10 mg oral tablet) 1 Tablet(s) Oral Every Day Duration: 7 Day(s) aspirin (aspirin 325 mg oral tablet) 1 Tablet(s) Oral Two Times A Day Duration: 30 Day(s) for DVT prophylaxisto be started after finishing the course of his Xarelto 10 mg oral daily ??7 days linaclotide (Linzess 290 mcg oral capsule) 1 Capsule(s) Oral Every Other Day atorvastatin (atorvastatin 20 mg oral tablet) 1 Tablet(s) Oral At Bedtime diphenhydrAMINE (Benadryl 25 mg oral tablet) 2 Tablet(s) Oral At Bedtime docusate 100 Milligram(s) Oral Every Other Day estradiol (Estrace 1 mg oral tablet) 1 Tablet(s) Oral Every Day folic acid (folic acid 0.4 mg oral tablet) 1 Tablet(s) Oral Every Day hydrochlorothiazide-lisinopril (hydroCHLOROthiazide-lisinopril 12.5 mg-20 mg oral tablet) 1 Tablet(s) Oral Every Day metoprolol (Metoprolol Succinate ER) 50 Milligram(s) Oral Every Day omeprazole 20 Milligram(s) Oral Every Day as needed for Heartburn potassium chloride (Klor-Con M20) 1 Tablet(s) Oral Every Day Take your medications faithfully. Do NOT skip medication. Do NOT stop taking medications without the direction of a physician. Carry a list of your medications with you at all times, and take this medication list with you to your first follow up visit. Report any side effects. Avoid herbal remedies unless discussed with your physician. As part of your treatment plan, your physician may have prescribed a limited course of a controlled substance. This medication may be given to help people with moderate or severe pain or for other medical conditions, but there are risks involved with treatment. Common side effects may include nausea, constipation, drowsiness, sweating, itching, dry mouth, and rash. More serious side effects may include cognitive and motor impairment, like problems with thinking, concentrating, alertness, and movement (e.g. slowed reflexes), and driving and operating heavy machinery can be dangerous. It is important for you to talk to your physician if you have these side effects or questions. These controlled substances can produce physical dependence and be habit-forming if taken for an extended period of time, which means that the body has gotten used to them and may experience withdrawal symptoms if they are abruptly stopped. Withdrawal symptoms can include runny nose, sweating, goose bumps, diarrhea, abdominal cramping, rapid heartbeat, difficulty sleeping, and nervousness. Please dispose of unused and medications per your retail pharmacy guidance. Allergies Adhesive Bandage (O/E - erythematous rash) Betadine (severe rash) Uncoded Allergy (See Comment) (hibicleanse) cephalexin (Shortness of breath, Hives, Hives~Shortness of breath) pt states had severe itching from skin prep that was used on back during back surgery in 2002 Immunizations This Visit No Immunizations Found Education Materials Hand Washing Germs like bacteria, viruses, and parasites are found everywhere. They can be in the air and water, and they can be on surfaces like food, door handles, and your skin. Every day, your hands touch germs. Many of these germs can make you and your family sick. Washing your hands is one of the best ways to lower your risk of getting and sharing germs. When should I wash my hands or use a hand-washing alcohol gel? You should wash your hands whenever you think they are dirty. You should also wash your hands: ??? Before: ? Visiting a baby or anyone with a weakened or lowered defense (immune) system. ? Putting in and taking out any contact lenses. ??? After: ? Working or playing outside. ? Touching an animal or its toys or leash. ? Handling livestock, such as cows or sheep. ? Using the bathroom. ? Using household copy cutter or poisonous chemicals. ? Touching or taking out the garbage. ? Touching anything dirty around your home. ? Handling dirty clothes or rags. ? Taking care of a sick child. This includes touching used tissues, toys, and clothes. ? Sneezing, coughing, or blowing your nose. ? Using public transportation. ? Shaking hands. ? Using a phone, including your mobile phone. ? Touching money. ??? Before and after: ? Preparing food. ? Preparing a bottle for a baby. ? Feeding a baby or young child. ? Eating. ? Visiting or taking care of someone who is sick. ? Changing a diaper. ? Changing a bandage (dressing). ? Taking care of an injury or wound. ? Giving or taking medicine. If you are preparing food, hand-washing alcohol gels are not recommended as a replacement for hand washing. What is the right way to wash my hands? Wet your hands with clean, running water. ??? Apply liquid soap or bar soap to your hands. ??? Rub your hands together quickly to create lather. ??? Keep rubbing your hands together for at least 20 seconds. Thoroughly scrub all parts of your hands, including under your fingernails and between your fingers. ??? Rinse your hands with clean, running water. Do this until all the soap is gone. ??? Dry your hands using an air dryer or a clean paper or cloth towel, or let your hands air-dry. Do not use your clothing or a dirty towel to dry your hands. ??? If you are in a public restroom, use your towel: ? To turn off the water faucet. ? To open the bathroom door. This information is not intended to replace advice given to you by your health care provider. Make sure you discuss any questions you have with your health care provider. Document Released: 07/05/2009 Document Revised: 12/28/2016 Document Reviewed: 12/18/2014 [employer] Patient Education ?? 2018 [employer] Fall Prevention in the Home, Adult Falls can cause injuries. They can happen to people of all ages. There are many things you can do to make your home safe and to help prevent falls. Ask for help when making these changes, if needed. What actions can I take to prevent falls? General Instructions ??? Use good lighting in all rooms. Replace any light bulbs that burn out. ??? Turn on the lights when you go into a dark area. Use night-lights. ??? Keep items that you use often in eutc-lh-exczi places. Lower the shelves around your home if necessary. ??? Set up your furniture so you have a clear path. Avoid moving your furniture around. ??? Do not have throw rugs and other things on the floor that can make you trip. ??? Avoid walking on wet floors. ??? If any of your floors are uneven, fix them. ??? Add color or contrast paint or tape to clearly romeo and help you see: ? Any grab bars or handrails. ? First and last steps of stairways. ? Where the edge of each step is. ??? If you use a stepladder: ? Make sure that it is fully opened. Do not climb a closed stepladder. ? Make sure that both sides of the stepladder are locked into place. ? Ask someone to hold the stepladder for you while you use it. ??? If there are any pets around you, be aware of where they are. What can I do in the bathroom? Keep the floor dry. Clean up any water that spills onto the floor as soon as it happens. ??? Remove soap buildup in the tub or shower regularly. ??? Use non-skid mats or decals on the floor of the tub or shower. ??? Attach bath mats securely with double-sided, non-slip rug tape. ??? If you need to sit down in the shower, use a plastic, non-slip stool. ??? Install grab bars by the toilet and in the tub and shower. Do not use towel bars as grab bars. What can I do in the bedroom? Make sure that you have a light by your bed that is easy to reach. ??? Do not use any sheets or blankets that are too big for your bed. They should not hang down onto the floor. ??? Have a firm chair that has side arms. You can use this for support while you get dressed. What can I do in the kitchen? Clean up any spills right away. ??? If you need to reach something above you, use a strong step stool that has a grab bar. ??? Keep electrical cords out of the way. ??? Do not use floor kiswahili or wax that makes floors slippery. If you must use wax, use non-skid floor wax. What can I do with my stairs? Do not leave any items on the stairs. ??? Make sure that you have a light switch at the top of the stairs and the bottom of the stairs. If you do not have them, ask someone to add them for you. ??? Make sure that there are handrails on both sides of the stairs, and use them. Fix handrails that are broken or loose. Make sure that handrails are as long as the stairways. ??? Install non-slip stair treads on all stairs in your home. ??? Avoid having throw rugs at the top or bottom of the stairs. If you do have throw rugs, attach them to the floor with carpet tape. ??? Choose a carpet that does not hide the edge of the steps on the stairway. ??? Check any carpeting to make sure that it is firmly attached to the stairs. Fix any carpet that is loose or worn. What can I do on the outside of my home? Use bright outdoor lighting. ??? Regularly fix the edges of walkways and driveways and fix any cracks. ??? Remove anything that might make you trip as you walk through a door, such as a raised step or threshold. ??? Trim any bushes or trees on the path to your home. ??? Regularly check to see if handrails are loose or broken. Make sure that both sides of any steps have handrails. ??? Install guardrails along the edges of any raised decks and porches. ??? Clear walking paths of anything that might make someone trip, such as tools or rocks. ??? Have any leaves, snow, or ice cleared regularly. ??? Use sand or salt on walking paths during winter. ??? Clean up any spills in your garage right away. This includes grease or oil spills. What other actions can I take? Wear shoes that: ? Have a low heel. Do not wear high heels. ? Have rubber bottoms. ? Are comfortable and fit you well. ? Are closed at the toe. Do not wear open-toe sandals. ??? Use tools that help you move around (mobility aids) if they are needed. These include: ? Canes. ? Walkers. ? Scooters. ? Crutches. ??? Review your medicines with your doctor. Some medicines can make you feel dizzy. This can increase your chance of falling. Ask your doctor what other things you can do to help prevent falls. Where to find more information ??? Centers for Disease Control and Prevention, [place]: https://cdc.gov ??? National [place] on Aging: https://dr8qdwz.joe.nih.gov Contact a doctor if: ??? You are afraid of falling at home. ??? You feel weak, drowsy, or dizzy at home. ??? You fall at home. Summary ??? There are many simple things that you can do to make your home safe and to help prevent falls. ??? Ways to make your home safe include removing tripping hazards and installing grab bars in the bathroom. ??? Ask for help when making these changes in your home. This information is not intended to replace advice given to you by your health care provider. Make sure you discuss any questions you have with your health care provider. Document Released: 05/19/2010 Document Revised: 03/07/2018 Document Reviewed: 03/07/2018 [employer] Patient Education ?? 2019 [employer] What to expect after the Procedure: After the procedure, it is common to have: ??? Pain and swelling. ??? A small amount of blood or clear fluid coming from your incision for up to 7 days ??? It is normal to have a moderate amount of bleeding from the site of the drain that was pulled on the morning after surgery. You can hold pressure on the area for 3-5 minutes and cover with a bandage as needed. Diet: ??? Resume usual diet ??? No alcoholic beverages while taking pain medication ??? Drink 8-10 glasses of water a day to prevent constipation from pain medication ??? Increase fiber to help prevent constipation. Straining can cause increased pressure and pain in your incision area ??? Increase protein to promote healing Driving: ??? Do not drive until your health care provider approves. Ask your health care provider when it is safe to drive if you have an immobilizer on your knee. ??? Do not drive or operate heavy machinery while taking prescription pain medicine. ??? Do not drive for 24 hours if you received a sedative. Activity: ??? Do not lift anything that is heavier than 10 lb (4.5 kg) until your health care provider approves. ??? No strenuous activity ??? Avoid high-impact activities, including running, jumping rope, and jumping jacks. ??? Avoid sitting for a long time without moving. Get up and move around at least every few hours. ??? Keep legs elevated while seated and place surgery leg on 2-3 pillows, this will decrease swelling ??? Continue using walker until cleared by physical therapy Bathing: ??? Do not take baths, swim, or use a hot tub for one month after surgery. ??? May shower on the third day after surgery by covering incision with Glad Brand Press and Seal saran wrap. After showering, dry off completely BEFORE removing saran wrap. ??? Use Press and Seal saran wrap to shower for one month after surgery ??? You must be seated to shower until you are no longer using the walker Other: ??? Use ice therapy for 20-30 minutes at a time and leave off for 20-30 minutes at a time. Always keep a towel or cloth between the ice pack and your skin ??? Continue to use Incentive Spirometer 10 times an hour while awake for one month to help prevent pneumonia Contact a health care provider if: ??? You have more redness, swelling, or pain around your incision. ??? You have more fluid or blood coming from your incision. ??? Your incision or drain site feels warm to the touch. ??? You have pus or a bad smell coming from your incision. ??? You have a fever. ??? Your incision breaks open after your health care provider removes your sutures, skin glue, or adhesive tape. ??? Your prosthesis feels loose. ??? You have knee pain that does not go away. DVT: Blood Clot Blood clots are a common risk after an orthopedic surgery Symptoms: ??? Swelling of your leg or arm, especially if one side is much worse. ??? Warmth and redness of your leg or arm, especially if one side is much worse. ??? Pain in your arm or leg. If the clot is in your leg, symptoms may be more noticeable or worse when you stand or walk. ??? A feeling of pins and needles, if the clot is in the arm. The symptoms of a DVT that has traveled to the lungs (pulmonary embolism, PE) usually start suddenly and include: ??? Shortness of breath while active or at rest. ??? Coughing or coughing up blood or blood-tinged mucus. ??? Chest pain that is often worse with deep breaths. ??? Rapid or irregular heartbeat. ??? Feeling light-headed or dizzy. ??? Fainting. ??? Feeling anxious. ??? Sweating. There may also be pain and swelling in a leg if that is where the blood clot started. How is this prevented? Exercise regularly. For at least 30 minutes every day, engage in: -Activity that involves moving your arms and legs. -Activity that encourages good blood flow through your body by increasing your heart rate. ??? Exercise your arms and legs every hour during long-distance travel (over 4 hours). ??? Drink plenty of water and avoid drinking alcohol while traveling. ??? Avoid sitting or lying in bed for long periods of time without moving your legs. ??? Maintain a weight that is appropriate for your height. Ask your health care provider what weight is healthy for you. ??? If you are a woman who is over 35 years of age, avoid unnecessary use of medicines that contain estrogen. These include control pills. ??? Do not smoke, especially if you take estrogen medicines. If you need help quitting, ask your health care provider. ??? Wear compression stockings (if told by your health care provider) to help prevent blood clots from forming. High Fiber/High Protein Diet High fiber foods: To prevent constipation Grains Whole-grain breads. Multigrain cereal. Oats and oatmeal. Brown rice. Barley. Bulgur wheat. Millet. Bran muffins. Popcorn. [place] wafer crackers. Vegetables Sweet potatoes. Spinach. Kale. Artichokes. Cabbage. Broccoli. Green peas. Carrots. Squash. Fruits Berries. Pears. Apples. Oranges. Avocados. Prunes and raisins. Dried figs. Meats and Other Protein Sources [place], kidney, mariscal, and soy beans. Split peas. Lentils. Nuts and seeds. Dairy Fiber-fortified yogurt. Beverages Fiber-fortified soy milk. Fiber-fortified orange juice. Other Fiber bars. High-protein foods: To promote healing High-protein foods contain 4 grams (4 g) or more of protein per serving. They include: ??? Beef, ground sirloin (cooked) ??? 3 oz have 24 g of protein. ??? Cheese (hard) ??? 1 oz has 7 g of protein. ??? Chicken breast, boneless and skinless (cooked) ??? 3 oz have 13.4 g of protein. ??? Cottage cheese ??? 1/2 cup has 13.4 g of protein. ??? Egg ??? 1 egg has 6 g of protein. ??? Fish, filet (cooked) ??? 1 oz has 6???7 g of protein. ??? Garbanzo beans (canned or cooked) ??? 1/2 cup has 6???7 g of protein. ??? Kidney beans (canned or cooked) ??? 1/2 cup has 6???7 g of protein. ??? Reyes (cooked) ??? 3 oz has 24 g of protein. ??? Milk ??? 1 cup (8 oz) has 8 g of protein. ??? Nuts (peanuts, pistachios, almonds) ??? 1 oz has 6 g of protein. ??? Peanut butter ??? 1 oz has 7???8 g of protein. ??? Pork tenderloin (cooked) ??? 3 oz has 18.4 g of protein. ??? Pumpkin seeds ??? 1 oz has 8.5 g of protein. ??? Soybeans (roasted) ??? 1 oz has 8 g of protein. ??? Soybeans (cooked) ??? 1/2 cup has 11 g of protein. ??? Soy milk ??? 1 cup (8 oz) has 5???10 g of protein. ??? Soy or vegetable davey ??? 1 davey has 11 g of protein. ??? [place] seeds ??? 1 oz has 5.5 g of protein. ??? Tofu (firm) ??? 1/2 cup has 20 g of protein. ??? Tuna (canned in water) ??? 3 oz has 20 g of protein. ??? Yogurt ??? 6 oz has 8 g of protein. Fall Prevention ??? Use night lights. ??? Install grab bars by the toilet and in the tub and shower. Do not use towel bars as grab bars. ??? Use non-skid mats or decals on the floor of the tub or shower. ??? If you need to sit down while you are in the shower, use a plastic, non-slip stool. ??? Keep the floor dry. Immediately clean up any water that spills on the floor. ??? Remove soap buildup in the tub or shower on a regular basis. ??? Remove throw rugs and other tripping hazards from the floor. ??? Place frequently used items in frpu-ur-ulgtb places ??? Keep electrical cables out of the way. ??? Do not leave any items on the stairs. ??? Make sure that there are handrails on both sides of the stairs. Fix handrails that are broken or loose. Make sure that handrails are as long as the stairways. ??? Check any carpeting to make sure that it is firmly attached to the stairs. Fix any carpet that is loose or worn. ??? Avoid having throw rugs at the top or bottom of stairways, or secure the rugs with carpet tape to prevent them from moving. ??? Wear closed-toe shoes that fit well and support your feet. Wear shoes that have rubber soles or low heels. ??? Use mobility aids as needed, such as canes, walkers, scooters, and crutches. ??? Turn on lights if it is dark. Replace any light bulbs that burn out. ??? Set up furniture so that there are clear paths. Keep the furniture in the same spot. ??? Be aware of any and all pets. ??? Review your medicines with your healthcare provider. Some medicines can cause dizziness or changes in blood pressure, which increase your risk of falling. Hand Washing You should wash your hands whenever you think they are dirty. You should also wash your hands: ??? After: ??? Working or playing outside. ??? Touching an animal or its toys or leash. ??? Handling livestock. ??? Using the bathroom. ??? Using household copy cutter or toxic chemicals. ??? Touching or taking out the garbage. ??? Touching anything dirty around your home. ??? Handling soiled clothes or rags. ??? Taking care of a sick child. This includes touching used tissues, toys, and clothes. ??? Sneezing, coughing, or blowing your nose. ??? Using public transportation. ??? Shaking hands. ??? Using a phone, including your mobile phone. ??? Touching money. ??? Before and after: ??? Preparing food. ??? Feeding a baby or young child. ??? Eating. ??? Visiting or taking care of someone who is sick. ??? Changing a diaper. ??? Changing a bandage (dressing) or taking care of an injury or wound. ??? Giving or taking medicine. If soap and clean water are not available, use an alcohol-based wipe, spray, or hand gel. Use a hand-sanitizing agent that contains at least 60% alcohol. If you are preparing food, hand sanitizers are not recommended as a substitute for hand washing. Walker Use To Walk With a Front-Wheeled Walker: 1. Slide your front-wheeled walker one step-length in front of you. Your toes should be farther forward than the back legs of your walker. 2. Hold on to the walker for support, and step your weaker (surgery) leg into the middle of the walker. 3. Step your stronger leg forward to land next to your weaker leg. 4. Repeat the process for each step. ??? Always keep both feet within the width of the walker's legs or wheels. ??? When using your walker, you should not feel like you need to lean forward or to the side to keep your hands on the handgrips. ??? Make sure you are following any weight-bearing instructions that your health care provider has given you. ??? Be careful not to let the walker get too far ahead of you as you walk. ??? If your walker does not glide well over carpet, consider cutting an X into two tennis balls and placing the balls over the back legs of your walker. How to use a walker on a curb or step To Use a Walker to Step Up: 1. Put all four legs of the walker on the curb or step. 2. Get your feet as close to the curb or step as you can. 3. Test the steadiness of the walker by pressing down on the handgrips. 4. If the walker is steady, press down on it with your hands as you step up with your stronger leg. 5. Step up with your weaker leg. To Use a Walker to Step Down: 1. Put all four legs of the walker on the surface that is lower than the curb or step. 2. Get your feet as close to the curb or step as you can. 3. Test the steadiness of the walker by pressing down on the handgrips. 4. If the walker is steady, press down on it with your hands as you step down with your weaker leg. 5. Step down with your stronger leg. acetaminophen and oxycodone (a SEET a MIN oh fen and OX i KOE done) Endocet 10/325, Endocet 2.5/325, Endocet 5/325, Endocet 7.5/325, Nalocet, Percocet 10/325, Percocet 2.5/325, Percocet 5/325, Percocet 7.5/325, Primalev, Primlev, Roxicet, Xartemis XR What is the most important information I should know about acetaminophen and oxycodone? MISUSE OF OPIOID MEDICINE CAN CAUSE ADDICTION, OVERDOSE, OR . Keep the medication in a place where others cannot get to it. An overdose of acetaminophen can damage your liver or cause . Call your doctor at once if you have pain in your upper stomach, loss of appetite, dark urine, or jaundice (yellowing of your skin or eyes). Taking opioid medicine during may cause life-threatening withdrawal symptoms in the . Fatal side effects can occur if you use opioid medicine with alcohol, or with other drugs that cause drowsiness or slow your breathing. Stop taking this medicine and call your doctor right away if you have skin redness or a rash that spreads and causes blistering and peeling. What is acetaminophen and oxycodone? Oxycodone is an opioid pain medication, sometimes called a narcotic. Acetaminophen is a less potent pain reliever that increases the effects of oxycodone. Acetaminophen and oxycodone is a combination medicine used to relieve moderate to severe pain. Acetaminophen and oxycodone may also be used for purposes not listed in this medication guide. What should I discuss with my healthcare provider before taking acetaminophen and oxycodone? You should not use this medicine if you are allergic to acetaminophen or oxycodone, or if you have: ?? severe asthma or breathing problems; or ?? a blockage in your stomach or intestines. Tell your doctor if you have ever had: ?? liver disease; ?? a drug or alcohol addiction; ?? kidney disease; ?? a head injury or seizures; ?? urination problems; or ?? problems with your thyroid, pancreas, or gallbladder. If you use opioid medicine while you are , your baby could become dependent on the drug. This can cause life-threatening withdrawal symptoms in the baby after it is born. Babies born dependent on opioids may need medical treatment for several weeks. Do not breast-feed. This medicine can pass into breast milk and cause drowsiness, breathing problems, or in a nursing baby. How should I take acetaminophen and oxycodone? Follow all directions on your prescription label. Never take this medicine in larger amounts, or for longer than prescribed. An overdose can damage your liver or cause . Tell your doctor if the medicine seems to stop working as well in relieving your pain. Never share this medicine with another person, especially someone with a history of drug abuse or addiction. MISUSE CAN CAUSE ADDICTION, OVERDOSE, OR . Keep the medicine in a place where others cannot get to it. Selling or giving away acetaminophen and oxycodone is against the law. Measure liquid medicine carefully. Use the dosing syringe provided, or use a medicine dose-measuring device (not a kitchen spoon). If you need surgery or medical tests, tell the doctor ahead of time that you are using this medicine. You should not stop using this medicine suddenly. Follow your doctor's instructions about tapering your dose. Store at room temperature away from moisture and heat. Keep track of your medicine. You should be aware if anyone is using it improperly or without a prescription. Do not keep leftover opioid medication. Just one dose can cause in someone using this medicine accidentally or improperly. Ask your pharmacist where to locate a drug take-back disposal program. If there is no take-back program, flush the unused medicine down the toilet. What happens if I miss a dose? Since this medicine is used for pain, you are not likely to miss a dose. Skip any missed dose if it is almost time for your next dose. Do not use two doses at one time. What happens if I overdose? Seek emergency medical attention or call the Poison Help line at . An overdose of acetaminophen and oxycodone can be fatal. The first signs of an acetaminophen overdose include loss of appetite, nausea, vomiting, stomach pain, sweating, and confusion or weakness. Later symptoms may include pain in your upper stomach, dark urine, and yellowing of your skin or the whites of your eyes. Overdose can also cause severe muscle weakness, pinpoint pupils, very slow breathing, extreme drowsiness, or coma. What should I avoid while taking acetaminophen and oxycodone? Avoid driving or operating machinery until you know how this medicine will affect you. Dizziness or drowsiness can cause falls, accidents, or severe injuries. Do not drink alcohol. Dangerous side effects or could occur. Ask a doctor or pharmacist before using any other medicine that may contain acetaminophen (sometimes abbreviated as APAP). Taking certain medications together can lead to a fatal overdose. What are the possible side effects of acetaminophen and oxycodone? Get emergency medical help if you have signs of an allergic reaction: hives; difficulty breathing; swelling of your face, lips, tongue, or throat. Opioid medicine can slow or stop your breathing, and may occur. A person caring for you should seek emergency medical attention if you have slow breathing with long pauses, blue colored lips, or if you are hard to wake up. In rare cases, acetaminophen may cause a severe skin reaction that can be fatal. This could occur even if you have taken acetaminophen in the past and had no reaction. Stop taking this medicine and call your doctor right away if you have skin redness or a rash that spreads and causes blistering and peeling. Call your doctor at once if you have: ?? noisy breathing, sighing, shallow breathing; ?? a light-headed feeling, like you might pass out; ?? weakness, tiredness, fever, unusual bruising or bleeding; ?? confusion, unusual thoughts or behavior; ?? problems with urination; ?? liver problems--nausea, upper stomach pain, tiredness, loss of appetite, dark urine, indu-colored stools, jaundice (yellowing of the skin or eyes); or ?? low cortisol levels-- nausea, vomiting, loss of appetite, dizziness, worsening tiredness or weakness. Seek medical attention right away if you have symptoms of serotonin syndrome, such as: agitation, hallucinations, fever, sweating, shivering, fast heart rate, muscle stiffness, twitching, loss of coordination, nausea, vomiting, or diarrhea. Serious side effects may be more likely in older adults and those who are overweight, malnourished, or debilitated. Long-term use of opioid medication may affect fertility (ability to have children) in men or women. It is not known whether opioid effects on fertility are permanent. Common side effects include: ?? dizziness, drowsiness, feeling tired; ?? feelings of extreme happiness or sadness; ?? nausea, vomiting, stomach pain; ?? constipation; or ?? headache. This is not a complete list of side effects and others may occur. Call your doctor for medical advice about side effects. You may report side effects to FDA at 5-446-XIN-6518. What other drugs will affect acetaminophen and oxycodone? You may have breathing problems or withdrawal symptoms if you start or stop taking certain other medicines. Tell your doctor if you also use an antibiotic, antifungal medication, heart or blood pressure medication, seizure medication, or medicine to treat HIV or hepatitis C. Opioid medication can interact with many other drugs and cause dangerous side effects or . Be sure your doctor knows if you also use: ?? cold or allergy medicines, bronchodilator asthma/COPD medication, or a diuretic ('water pill'); ?? medicines for motion sickness, irritable bowel syndrome, or overactive bladder; ?? other narcotic medications--opioid pain medicine or prescription cough medicine; ?? a sedative like Valium--diazepam, alprazolam, lorazepam, Xanax, Klonopin, Versed, and others; ?? drugs that make you sleepy or slow your breathing--a sleeping pill, muscle relaxer, medicine to treat mood disorders or mental illness; ?? drugs that affect serotonin levels in your body--a stimulant, or medicine for depression, Parkinson's disease, migraine headaches, serious infections, or nausea and vomiting. This list is not complete. Other drugs may affect acetaminophen and oxycodone, including prescription and gmnu-khl-emdaann medicines, vitamins, and herbal products. Not all possible interactions are listed here. Where can I get more information? Your doctor or pharmacist can provide more information about acetaminophen and oxycodone. Remember, keep this and all other medicines out of the reach of children, never share your medicines with others, and use this medication only for the indication prescribed. Every effort has been made to ensure that the information provided by [employer]. ('[employer]') is accurate, up-to-date, and complete, but no guarantee is made to that effect. Drug information contained herein may be time sensitive. [employer] information has been compiled for use by healthcare practitioners and consumers in the [place] and therefore [employer] does not warrant that uses outside of the [place] are appropriate, unless specifically indicated otherwise. [employer] drug information does not endorse drugs, diagnose patients or recommend therapy. [employer] drug information is an informational resource designed to assist licensed healthcare practitioners in caring for their patients and/or to serve consumers viewing this service as a supplement to, and not a substitute for, the expertise, skill, knowledge and judgment of healthcare practitioners. The absence of a warning for a given drug or drug combination in no way should be construed to indicate that the drug or drug combination is safe, effective or appropriate for any given patient. [employer] does not assume any responsibility for any aspect of healthcare administered with the aid of information [employer] provides. The information contained herein is not intended to cover all possible uses, directions, precautions, warnings, drug interactions, allergic reactions, or adverse effects. If you have questions about the drugs you are taking, check with your doctor, nurse or pharmacist. Copyright 5290-6241 [employer]. Version: 18.02. Revision Date: 07/03/2018. Emergency Awareness and Preventative Care STROKE is an EMERGENCY Every Minute Counts Act FAST and Check for these signs: FACE Does the face look uneven? ARM Does one arm drift down? SPEECH Does their speech sound strange? TIME Call at any sign of stroke Stroke Risk Factors Atrial Fibrillation (irregular heartbeat) Diabetes Family history of stroke Heart Disease Heavy alcohol use High Blood Pressure High Cholesterol Physical inactivity and obesity Smoking Cigarette Smoking The facts are clear, cigarette smoking will shorten your life. Smoking can cause many illnesses along the way. As a healthcare provider, we recommend that you stop smoking. Assistance with quitting is available by contacting 7-681-GSHGNOW. This is a free resource providing counseling, support, and referral. Or you may contact your personal physician. National Suicide Prevention Lifeline: The National Suicide Prevention Lifeline is a national network of local crisis centers that provides free and confidential emotional support to people in suicidal crisis or emotional distress 24 hours a day, 7 days a week. Don't Wait! Stop a Heart Attack Before it Starts What is a heart attack? A heart attack is damage or to a part of the heart from severely decreased or lack of blood flow to the heart. Over time, arteries can become narrow from the buildup of fat and cholesterol, which is called plaque. The plaque can rupture causing a blood clot to form. When the blood clot forms, the artery can become severely narrowed or completely blocked, causing a heart attack. Heart attack is the leading cause of in the [place]. 85% of muscle damage occurs within the first 2 hours. Delay in the recognition of heart attack symptoms increases the chances of . Know the early symptoms of a heart attack: Nausea Feeling of fullness in chest Jaw Pain Pain that travels down one or both arms Fatigue/being tired Anxiety Back Pain Chest pressure, squeezing, or discomfort Shortness of breath Sweating, or a cold sweat Feeling of impending doom There are unusual signs of a heart attack, too! Women, the elderly, and diabetics may present with atypical symptoms: Fainting/dizziness Weakness Confusion Risk Factors for a Heart Attack Some heart disease risk factors, such as age and family history, cannot be changed. Others, like smoking and lack of exercise, can be changed. Smoking High Cholesterol High Blood Pressure Family History Obesity Age Gender (Males are at higher risk) Lack of Exercise Diabetes Diet Stress Excessive Alcohol Intake If you or someone you know is experiencing the signs and symptoms of a heart attack, DON???T DELAY. Call immediately and seek help. If someone collapses, perform CPR! Do not attempt to drive if you are having symptoms of heart attack. Hands-Only CPR Why Hands-Only CPR? Hands-Only CPR has been shown to be as effective as conventional CPR for cardiac arrests that occur outside of a hospital. Survival depends on immediately receiving CPR from someone nearby. How do you perform Hands-Only CPR? There are two easy steps: Call if you see a teen or adult collapse Push hard and fast in the center of the chest at a beat of 100 beats per minute. Save a life! 4 WAYS TO GET AHEAD OF SEPSIS SEPSIS is a MEDICAL EMERGENCY. Time matters! Infections put you and your family at risk for a life-threatening condition called sepsis. Sepsis is the body's extreme response to an infection. It is life-threatening, and without timely treatment, sepsis can rapidly lead to tissue damage, organ failure, and . Sepsis happens when an infection you already have-in your skin, lungs, urinary tract or somewhere else-triggers a chain reaction throughout your body. 1 PREVENT INFECTIONS Take good care of chronic conditions. Talk to your doctor about getting the recommended vaccines. 2 PRACTICE GOOD HYGIENE Wash your hands frequently. Keep cuts or open sores clean and covered until they are healed. 3 KNOW THE SYMPTOMS Confusion or disorientation Shortness of breath High heart rate Fever, shivering, or feeling very cold Extreme pain or discomfort Clammy or sweaty skin 4 ACT FAST Get medical care IMMEDIATELY if you suspect sepsis or if you have an infection that is not getting better or is getting worse. To learn more about sepsis and how to prevent infections, visit www.cdc.gov/sepsis. Test Results Laboratory or Other Results This Visit (last charted value for your 03/31/2019 visit) Blood Gases 04/02/19 13:37:00 HCO3 Art: 27.7 mmol/L -- Normal range between ( 20.0 and 26.0 ) sO2 Art: 92.6 % -- Normal range between ( 95.0 and 100.0 ) pCO2 Art: 40.8 mmHg -- Normal range between ( 35.0 and 45.0 ) pH Art: 7.45 -- Normal range between ( 7.35 and 7.45 ) pO2 Art: 65.5 mmHg -- Normal range between ( 80.0 and 100.0 ) ABG Num of Draw Attempts: 1 Acceptable Keshawn's Test Art: Acceptable BE Art: 3.8 mmol/L FIO2 Art: 21.0 Delivery Device Type Art: Room Air tHb Art: 11.2 Gram/dL -- Normal range between ( 12.0 and 18.0 ) Temperature, F Art: 98.6 Deg F ctO2: 14.2 mmol/L Art Blood Gas (ABG) Site: Right Radial Hematology 04/01/19 03:11:00 Hct: 37.3 % -- Normal range between ( 34.1 and 44.9 ) Hgb: 12.3 Gram/dL -- Normal range between ( 11.2 and 15.7 ) 03/13/19 13:57:00 WBC: 10.5 K/uL -- Normal range between ( 3.9 and 10.0 ) RBC: 4.20 Million/uL -- Normal range between ( 3.93 and 5.22 ) Platelet Count: 235 K/uL -- Normal range between ( 163 and 369 ) MCH: 33.1 pg -- Normal range between ( 25.6 and 32.2 ) MCHC: 33.4 Gram/dL -- Normal range between ( 32.3 and 36.5 ) MCV: 99.0 fL -- Normal range between ( 79.0 and 94.8 ) Slide Review: No Eos %: 2.1 % -- Normal range between ( 1.0 and 7.0 ) [place] #: 0.90 K/uL -- Normal range between ( 0.24 and 0.82 ) Eos #: 0.22 K/uL -- Normal range between ( 0.04 and 0.54 ) [place] %: 8.6 % -- Normal range between ( 4.7 and 12.5 ) Baso %: 0.7 % -- Normal range between ( 0.0 and 1.0 ) Baso #: 0.07 K/uL -- Normal range between ( 0.01 and 0.08 ) RDW: 12.7 % -- Normal range between ( 11.6 and 14.4 ) Neut %: 70.5 % -- Normal range between ( 34.0 and 71.0 ) Neut #: 7.41 K/uL -- Normal range between ( 1.56 and 6.13 ) Lymph %: 17.6 % -- Normal range between ( 19.3 and 53.0 ) Lymph #: 1.85 K/uL -- Normal range between ( 1.18 and 3.74 ) MPV: 11.4 fL -- Normal range between ( 9.4 and 12.4 ) IG#: 0 x10(3)/uL IG%: 0 % -- Normal range between ( 0 and 1 ) Urinalysis 03/13/19 13:57:00 Ur RBC: 0-2 /HPF Urine Nitrite: Negative Urine Leukocyte Esterase: Negative Ur Epithelial Cells: 2-5 /HPF Urine Appearance: Clear Urine Glucose Dipstick: Negative Urine Blood Dipstick: Negative Urine Urobilinogen Dipstick: 0.2 EU/dL -- Normal range between ( 0.2 and 1.0 ) Urine Protein Dipstick: Negative Ur Amorph: 1+ Ur Bacteria: 1+ Urine Color: Yellow Ur WBC: 0-2 /HPF Urine Ketones Dipstick: Negative Urine pH Dipstick: 5.0 -- Normal range between ( 6.0 and 8.0 ) Urine Bilirubin Dipstick: Negative Urine Specific [place]: 1.014 -- Normal range between ( 1.005 and 1.030 ) Urine Type.: U [place] General Chemistry 04/01/19 03:11:00 Creatinine Level: 0.82 mg/dL -- Normal range between ( 0.55 and 1.02 ) Sodium Level: 138 mmol/L -- Normal range between ( 136 and 146 ) Potassium Level: 4.5 mmol/L -- Normal range between ( 3.5 and 5.1 ) Chloride Level: 104 mmol/L -- Normal range between ( 102 and 112 ) Carbon Dioxide Level: 32 mmol/L -- Normal range between ( 21 and 32 ) Anion Gap: 6 -- Normal range between ( 9 and 20 ) Bun/Creatinine: 12.2 -- Normal range between ( 8.0 and 20.0 ) Calcium Level: 8.7 mg/dL -- Normal range between ( 8.5 and 10.1 ) eGFR : >60 mL/min/1.73m2 eGFR NonAfrican: >60 mL/min/1.73m2 Glucose Level: 140 mg/dL -- Normal range between ( 74 and 106 ) Blood Urea Nitrogen: 10 mg/dL -- Normal range between ( 7 and 22 ) 03/13/19 13:57:00 Bilirubin Total: 0.2 mg/dL -- Normal range between ( 0.2 and 1.3 ) Hgb A1C: 5.80 % -- Normal range between ( 4.20 and 6.30 ) A/G Ratio: 1.0 -- Normal range between ( 1.1 and 2.5 ) ALT: 24 Units/Liter -- Normal range between ( 12 and 78 ) AST: 18 Units/Liter -- Normal range between ( 5 and 37 ) Globulin: 3.3 Gram/dL -- Normal range between ( 1.5 and 4.5 ) Alk Phos: 88 Units/Liter -- Normal range between ( 27 and 136 ) eAVG Glucose: 120 mg/dL Protein Total: 6.7 Gram/dL -- Normal range between ( 6.4 and 8.2 ) Albumin Level: 3.4 Gram/dL -- Normal range between ( 3.4 and 5.0 ) Coagulation 04/02/19 14:05:00 D Dimer Quant: 1315 ng/mL 03/13/19 13:57:00 INR: 1.0 -- Normal range between ( 0.9 and 1.1 ) PTT: 25.1 Second(s) -- Normal range between ( 24.5 and 30.1 ) PT: 10.0 Second(s) -- Normal range between ( 9.6 and 11.5 ) Diagnostic Radiology 04/02/19 14:12:23 CR Chest 1 Vw: CR Chest 1 Vw CR Hip 1 Vw LT: CR Hip 1 Vw LT 03/31/19 11:32:00 CR Pelvis 1 or 2 Vws: CR Pelvis 1 or 2 Vws 03/31/19 10:41:02 CR Fluoro in OR: CR Fluoro in OR 03/13/19 15:11:51 CR Chest 2 Vws: CR Chest 2 Vws Ultrasound 04/02/19 14:47:10 US Veins LE Duplex LTD LT: US Veins LE Duplex LTD LT Patient Name:SHARONDA GEORGE I have received and understand this information and was given the opportunity to ask questions. Patient/Group Burner Machine Name: Patient/Group Burner Machine Signature: Relationship to Patient: Clinician/Hospital Group Burner Machine Signature: Date: documented in this encounter Plan of Treatment Not on file documented as of this encounter Visit Diagnoses Not on filedocumented in this encounter
--- OUTSIDE RECORDS SUMMARY | 2025-06-15 09:59 | XMS_ITS | Encounter Summary ---
Author Organization [facility] ([place], [place], [place], [place], [place]) Address [address] [place] [address] Care Team Providers Care Teacher Learning Disabled Name Role Phone Unavailable Primary Care Provider Unavailabl e Encounter Details Date Type Department Care Team (Late st Contact Info) Description 03/31/2019 Transcribed Document [facility] [place] [facility] [place] [address] ProviderSb [place] [address] Social History Tobacco Use Types Packs/Day Years Used Date Smoking Tobacco: Never Assessed Comments Unknown Sex and Gender Information Value Date Recorded Sex Assigned at Not on file Legal Sex Female 1:50 PM CDT Gender Identity Not on file Sexual Orientation Not on file documented as of this encounter Miscellaneous Notes * Cerner Conversion Note - Sb ProviderMD - 03/31/2019 2:40 PM CDT associate financial representative Form Entered On: 03/31/2019 14:40 EDT Performed On: 03/31/2019 14:40 EDT by GIOVANNI OCHOA RN-Utilization Review UM Additional Information UM Additional Comment : Request for inpt stay. Clinicals to follow. ICD 10: Z96.642 GIOVANNI OCHOA RN-Utilization Review - 03/31/2019 14:40 EDT documented in this encounter Plan of Treatment Not on file documented as of this encounter Visit Diagnoses Not on filedocumented in this encounter
--- OUTSIDE RECORDS SUMMARY | 2025-06-15 09:59 | XMS_ITS | Clinical Summary ---
Author Organization [employer] ([place], [place], [place], [place], [place]) Address [address] [place] [address] Care Team Providers Care Mumps Developer Name Role Phone Unavailable Primary Care Provider Unavailabl e Social History Tobacco Use Types Packs/Day Years Used Date Smoking Tobacco: Never Assessed Comments Unknown Sex and Gender Information Value Date Recorded Sex Assigned at Not on file Legal Sex Female 1:50 PM CDT Gender Identity Not on file Sexual Orientation Not on file Plan of Treatment Not on file
--- OUTSIDE RECORDS SUMMARY | 2025-06-15 09:59 | XMS_ITS | Encounter Summary ---
Author Organization [employer] ([place], [place], [place], [place], [place]) Address [address] [place] [address] Care Team Providers Care Post Graduate Intern Name Role Phone Unavailable Primary Care Provider Unavailabl e Encounter Details Date Type Department Care Team (Late st Contact Info) Description 03/31/2019 Transcribed Document [facility] [place] Family Medicine [facility] [place] [address] ProviderSb MD [address] [place] [address] Social History Tobacco Use Types Packs/Day [...] Sb ProviderMD - 03/31/2019 2:40 PM CDT UM Authorization Entered On: 03/31/2019 14:41 EDT Performed On: 03/31/2019 14:40 EDT by GIOVANNI OCHOA RN-Utilization Review Primary Insurance Authorization Authorization and Policy Numbers : Insurance 1 Health Plan: [employer] P[employer] Policy Number: [id number] Authorization Number: [id number] Insurance Primary Name : [employer] Policy Number: [id number] Authorization Status-Primary : Notification only Authorization Number-Primary : [id number] Authorized Service Begin Date-Primary : 03/31/2019 EDT Authorization Comments-Primary : Uploaded clinicals to [employer] via [employer]. Historical Authorization Comments-Primary : Comment 1: [employer] P[employer] approved per availity for inpt -- must fax clinicals (MANUEL HAMPTON RN-Utilization Review 03/19/2019 11:55) GIOVANNI OCHOA RN-Utilization Review - 03/31/2019 14:40 EDT Electronically signed by Александр [facility] Conversion Asphalt Surface Heater Operator Cerner at 11/21/2022 4:24 PM CDT documented in this encounter Plan of Treatment Not on file documented as of this encounter Visit Diagnoses Not on filedocumented in this encounter
--- OUTSIDE RECORDS SUMMARY | 2025-06-15 09:59 | XMS_ITS | Referral Summary ---
Author Organization [employer] ([place], [place], [place], [place], [place]) Address [address] [place] [address] Care Team Providers Care Drywall Installer Name Role Phone Unavailable Primary Care Provider [...]
--- OUTSIDE RECORDS SUMMARY | 2025-06-15 09:59 | XMS_ITS | Encounter Summary ---
Author Organization [employer] ([place], [place], [place], [place], [place]) Address [address] [place] [address] Care Team Providers Care Account Auditor Name Role Phone Unavailable Primary Care Provider Unavailabl e Encounter Details Date Type Department Care Team (Late st Contact Info) Description 03/31/2019 Transcribed Document [facility] [place] [facility] [place] [address] ProviderSb MD [address] [place] [id number] Social History Tobacco Use Types Packs/Day Years Used Date Smoking Tobacco: Never Assessed Comments Unknown Sex and Gender Information Value Date Recorded Sex Assigned at Not on file Legal Sex Female 1:50 PM CDT Gender Identity Not on file Sexual Orientation Not on file documented as of this encounter Miscellaneous Notes * Cerner Conversion Note - Sb Man MD - 03/31/2019 6:11 PM CDT Patient: SHARONDA GEORGE Age: 74 years Sex: Female : 1945 Associated Diagnoses: Hip pain, left; Unilateral primary osteoarthritis, left hip; Status post total hip replacement, left; Aortic stenosis; HTN; Panic attacks; At risk for sleep apnea; Obesity (BMI 30.0-34.9) Author: NATALIE NICHOLS MD-INT 74 years old white female with a history of left hip pain secondary to degenerative joint disease and after medical clearance by her PCP patient underwent left total hip arthroplasty through anterior approach by Dr. Rubio. Postoperative Information Patient had surgery today and is recovering well. patient is awake, alert, cooperative, responsive, and is under no acute distress. Currently Patient is on pain medication as recommended by Dr. Rubio Patient's pain is well controlled. Patient is on DVT prophylaxis as per Dr. Rubio protocol and also on scheduled bowel regimen. Urine out-put is adequate. PT/OT onboard. Review of Systems Constitutional: No fever, No chills. Eye: No visual disturbances. Ear/Nose/Mouth/Throat: No nasal congestion, No sore throat. Respiratory: No shortness of breath, No cough. Cardiovascular: No chest pain, No tachycardia. Gastrointestinal: No nausea, No vomiting, No abdominal pain. Genitourinary: No change in urine stream. Hematology/Lymphatics: No bleeding tendency. Endocrine: No polyuria, No cold intolerance, No heat intolerance. Immunologic: Negative. Musculoskeletal: Negative. Integumentary: wound stable covered w. clean dressing. Neurologic: No confusion, No numbness, No tingling, No headache. Psychiatric: No anxiety, No depression. All other systems are negative Health Status Allergies: Allergies (3) Active Reaction Adhesive Bandage O/E - erythematous rash Betadine severe rash Uncoded Allergy (See Comment) hibicleanse Current medications: Medications (33) Active Scheduled: (11) #NaCl 0.9% *FLUSH* inj 10 mL 10 mL, IV Push, Q12H acetaminophen 500 mg tab 500 mg 1 Tab, Oral, Q6HInt atorvastatin 20 mg tab 20 mg 1 Tab, Oral, At Bedtime cloNIDine 80 mcg + ketorolac 30 mg + ropivacaine 0.5% 30 mL + lidocaine 1% w/epi 1:100,000 28.2 mL 80 mcg 0.8 mL, IntraLesional, 1-Time enoxaparin 40 mg/0.4 mL inj 40 mg 0.4 mL, SubCutaneous, [id number] folic acid 0.4 mg, Oral, Daily linaclotide 145 mcg cap 290 mcg 2 Cap, Oral, EveryOtherDay metoprolol succinate XL 50 mg tab 50 mg 1 Tab, Oral, Daily midazolam 2 mg/2 mL inj *PF* 2 mg 2 mL, IV Push, 1-Time scopolamine 1.5 mg/72 hr patch 1 Patch, TransDermal, 1-Time tranexamic acid 1,000 mg + syringe 1 Each + NaCl 0.9% 20 mL 1,000 mg 10 mL, Topical, 1-Time Continuous: (1) D5/LR 1,000 mL 1,000 mL, IntraVENous, 125 mL/Hr PRN: (21) #NaCl 0.9% *FLUSH* inj 3 mL 5 mL, IntraVENous, See Comment al hydrox/mag hydrox/simeth 30 mL liq 30 mL, Oral, Q6H albuterol-ipratropium inh 3 mL 3 mL, Nebulized Inhalation, Q4H bisacodyl 10 mg supp 10 mg 1 Supp, Rectal, Daily clonazePAM 0.5 mg tab 0.5 mg 1 Tab, Oral, BID diphenhydrAMINE 25 mg tab 25 mg 1 Tab, Oral, On-CALL docusate calcium 240 mg cap 240 mg 1 Cap, Oral, Daily HYDROmorphone 1 mg/1 mL inj 0.5 mg 0.5 mL, IV Push, Q3H magnesium hydroxide 8% liq 30 mL 15 mL, Oral, Q6H metaxalone 800 mg tab 800 mg 1 Tab, Oral, TID ondansetron 4 mg tab 4 mg 1 Tab, Oral, Q6H ondansetron 4 mg/2 mL inj 4 mg 2 mL, IV Push, Q4H oxyCODONE 5 mg tab 5 mg 1 Tab, Oral, Q4H oxyCODONE 5 mg tab 10 mg 2 Tab, Oral, Q4H pantoprazole EC 40 mg tab 40 mg 1 Tab, Oral, Daily phenol 1.4% throat spray 5 [place], Oral, Q2H promethazine 25 mg tab 12.5 mg 0.5 Tab, Oral, Q6H promethazine 25 mg/1 mL inj 12.5 mg 0.5 mL, IV Push, Q6H promethazine 25 mg/1 mL inj 12.5 mg 0.5 mL, IV Push, Q6H scopolamine 1.5 mg/72 hr patch 1 Patch, TransDermal, Q3Days traZODone 50 mg tab 50 mg 1 Tab, Oral, At Bedtime Problem list: Active Problems (6) Aortic stenosis At risk for sleep apnea Constipation Cystitis, interstitial HTN Panic attacks Histories Family History: Family history significant for DM, HTN, heart disease and cancer Procedure history: Bilateral RCR. Lumbar Fsuion. Hysterectomy. Gall bladder. child x2. appendectomy. carpal tunnel right wrist. vaginal prolapse repair. cardiac cath with one stint 2015. bilateral cataract. Social History Patient is and has 2 children he quit smoking 19 years ago and denies drinking alcohol. Physical Examination VS/Measurements Vital Signs/Vital Measures 03/31/2019 13:00 EDT Systolic Blood Pressure 137 mmHg Diastolic Blood Pressure 50 mmHg LOW Mean Arterial Pressure (MAP)-BMDI 71 Temperature Source Oral Temperature Mode Fahrenheit Temperature, Fahrenheit 97.9 Deg F Clinical Temperature, C 36.6 Deg C Heart Rate Monitored 78 bpm Oxygen Saturation 97 % Oxygen Therapy Mode Nasal cannula Oxygen Flow Rate 2 Liter/Min 03/31/2019 12:40 EDT Systolic Blood Pressure 122 mmHg Diastolic Blood Pressure 58 mmHg LOW Mean Arterial Pressure (MAP)-BMDI 81 Temperature Source Temporal artery scanning Temperature Mode Fahrenheit Temperature, Fahrenheit 98.4 Deg F Clinical Temperature, C 36.9 Deg C Pulse Method Pulse Oximetry Heart Rate Monitored 79 bpm Respiratory Rate 16 Breaths/Min Oxygen Saturation 97 % Oxygen Therapy Mode Nasal cannula Oxygen Flow Rate 3 Liter/Min 03/31/2019 12:30 EDT Systolic Blood Pressure 123 mmHg Diastolic Blood Pressure 57 mmHg LOW Mean Arterial Pressure (MAP)-BMDI 87 Heart Rate Monitored 70 bpm Respiratory Rate 15 Breaths/Min Oxygen Saturation 95 % Oxygen Therapy Mode Nasal cannula Oxygen Flow Rate 3 Liter/Min 03/31/2019 12:20 EDT Systolic Blood Pressure 140 mmHg Diastolic Blood Pressure 58 mmHg LOW Mean Arterial Pressure (MAP)-BMDI 76 Heart Rate Monitored 78 bpm Respiratory Rate 16 Breaths/Min Oxygen Saturation 95 % Oxygen Therapy Mode Nasal cannula Oxygen Flow Rate 3 Liter/Min 03/31/2019 12:10 EDT Systolic Blood Pressure 135 mmHg Diastolic Blood Pressure 59 mmHg LOW Mean Arterial Pressure (MAP)-BMDI 88 Heart Rate Monitored 67 bpm Respiratory Rate 16 Breaths/Min Oxygen Saturation 95 % Oxygen Therapy Mode Nasal cannula Oxygen Flow Rate 3 Liter/Min 03/31/2019 12:00 EDT Systolic Blood Pressure 140 mmHg Diastolic Blood Pressure 62 mmHg Mean Arterial Pressure (MAP)-BMDI 90 Heart Rate Monitored 68 bpm Respiratory Rate 16 Breaths/Min Oxygen Saturation 94 % Oxygen Therapy Mode Nasal cannula Oxygen Flow Rate 3 Liter/Min 03/31/2019 11:50 EDT Systolic Blood Pressure 128 mmHg Diastolic Blood Pressure 43 mmHg LOW Mean Arterial Pressure (MAP)-BMDI 60 Heart Rate Monitored 69 bpm Respiratory Rate 17 Breaths/Min Oxygen Saturation 98 % Oxygen Therapy Mode Nasal cannula Oxygen Flow Rate 3 Liter/Min 03/31/2019 11:40 EDT Systolic Blood Pressure 158 mmHg HI Diastolic Blood Pressure 55 mmHg LOW Mean Arterial Pressure (MAP)-BMDI 79 Heart Rate Monitored 73 bpm Respiratory Rate 17 Breaths/Min Oxygen Saturation 98 % Oxygen Therapy Mode Nasal cannula Oxygen Flow Rate 3 Liter/Min 03/31/2019 11:30 EDT Systolic Blood Pressure 152 mmHg HI Diastolic Blood Pressure 63 mmHg Mean Arterial Pressure (MAP)-BMDI 84 Heart Rate Monitored 76 bpm Respiratory Rate 16 Breaths/Min (Modified) Oxygen Saturation 98 % Oxygen Therapy Mode Nasal cannula Oxygen Flow Rate 3 Liter/Min 03/31/2019 11:25 EDT Systolic Blood Pressure 156 mmHg HI Diastolic Blood Pressure 50 mmHg LOW Mean Arterial Pressure (MAP)-BMDI 76 Heart Rate Monitored 82 bpm Respiratory Rate 16 Breaths/Min Oxygen Saturation 96 % Oxygen Therapy Mode Nasal cannula Oxygen Flow Rate 3 Liter/Min 03/31/2019 11:20 EDT Systolic Blood Pressure 157 mmHg HI Diastolic Blood Pressure 68 mmHg Mean Arterial Pressure (MAP)-BMDI 101 Heart Rate Monitored 81 bpm Respiratory Rate 16 Breaths/Min Oxygen Saturation 98 % Oxygen Therapy Mode Nasal cannula Oxygen Flow Rate 3 Liter/Min 03/31/2019 11:15 EDT Systolic Blood Pressure 180 mmHg HI Diastolic Blood Pressure 61 mmHg Mean Arterial Pressure (MAP)-BMDI 88 Heart Rate Monitored 82 bpm Respiratory Rate 17 Breaths/Min Oxygen Saturation 98 % Oxygen Therapy Mode Nasal cannula Oxygen Flow Rate 3 Liter/Min 03/31/2019 11:10 EDT Systolic Blood Pressure 165 mmHg HI Diastolic Blood Pressure 64 mmHg Mean Arterial Pressure (MAP)-BMDI 83 Heart Rate Monitored 83 bpm Respiratory Rate 17 Breaths/Min Oxygen Saturation 98 % Oxygen Therapy Mode Nasal cannula Oxygen Flow Rate 3 Liter/Min 03/31/2019 11:05 EDT Systolic Blood Pressure 168 mmHg HI Diastolic Blood Pressure 65 mmHg Mean Arterial Pressure (MAP)-BMDI 98 Heart Rate Monitored 86 bpm Respiratory Rate 17 Breaths/Min Oxygen Saturation 99 % Oxygen Therapy Mode Nasal cannula Oxygen Flow Rate 3 Liter/Min 03/31/2019 11:00 EDT Systolic Blood Pressure 168 mmHg HI Diastolic Blood Pressure 65 mmHg Mean Arterial Pressure (MAP)-BMDI 101 Heart Rate Monitored 92 bpm Respiratory Rate 18 Breaths/Min Oxygen Saturation 97 % Oxygen Therapy Mode Nasal cannula Oxygen Flow Rate 3 Liter/Min 03/31/2019 10:55 EDT Systolic Blood Pressure 141 mmHg HI Diastolic Blood Pressure 75 mmHg Mean Arterial Pressure (MAP)-BMDI 121 Heart Rate Monitored 97 bpm Respiratory Rate 18 Breaths/Min Oxygen Saturation 95 % Oxygen Therapy Mode Nasal cannula Oxygen Flow Rate 3 Liter/Min 03/31/2019 10:52 EDT Systolic Blood Pressure 140 mmHg Diastolic Blood Pressure 90 mmHg Temperature Source Temporal artery scanning Temperature Mode Fahrenheit Temperature, Fahrenheit 98.4 Deg F Clinical Temperature, C 36.9 Deg C Heart Rate Monitored 94 bpm Respiratory Rate 16 Breaths/Min Oxygen Saturation 97 % Oxygen Therapy Mode Nasal cannula Oxygen Flow Rate 3 Liter/Min 03/31/2019 7:16 EDT Blood Pressure Location Arm, left upper Blood Pressure Source Non-Invasive BP Device Systolic Blood Pressure 156 mmHg HI Diastolic Blood Pressure 75 mmHg Temperature Source Temporal artery scanning Temperature Mode Fahrenheit Temperature, Fahrenheit 98.5 Deg F Clinical Temperature, C 36.9 Deg C Pulse Method Pulse Oximetry Pulse Rhythm Regular Peripheral Pulse Rate 95 bpm Respiratory Rate 16 Breaths/Min Oxygen Saturation 98 % Oxygen Therapy Mode Room air Oxygen Therapy Mode Room air 03/31/2019 7:13 EDT Systolic Blood Pressure 156 mmHg HI Diastolic Blood Pressure 75 mmHg Temperature Source Temporal artery scanning Temperature Mode Fahrenheit Temperature, Fahrenheit 98.5 Deg F Clinical Temperature, C 36.9 Deg C Heart Rate Monitored 95 bpm Respiratory Rate 16 Breaths/Min Oxygen Saturation 95 % Oxygen Therapy Mode Room air General: Alert and oriented, No acute distress. Eye: Pupils are equal, round and reactive to light, Normal conjunctiva, Vision unchanged. HENT: Normocephalic, Tympanic membranes are clear, Normal hearing, Oral mucosa is moist, No pharyngeal erythema, No sinus tenderness. Neck: Supple, Non-tender, No carotid bruit, No jugular venous distention, No lymphadenopathy, No thyromegaly. Respiratory: Lungs are clear to auscultation, Respirations are non-labored, Breath sounds are equal, Symmetrical chest wall expansion, No chest wall tenderness. Cardiovascular: Normal rate, Regular rhythm, No murmur, No gallop, Good pulses equal in all extremities, Normal peripheral perfusion, No edema. Gastrointestinal: Soft, Non-tender, Non-distended, Normal bowel sounds, No organomegaly. Genitourinary: No costovertebral angle tenderness, No inguinal tenderness, No urethral discharge, No lesions. Lymphatics: No lymphadenopathy neck, axilla, groin. Musculoskeletal: Normal range of motion, Normal strength, No tenderness, No swelling, No deformity, Normal gait. Integumentary: Warm, [place], Intact, No pallor, No rash, WOUND STABLE. Neurologic: Alert, Oriented, Normal sensory, Normal motor function, No focal deficits, Cranial Nerves II-XII are grossly intact, Normal deep tendon reflexes. Psychiatric: Cooperative, Appropriate mood & affect, Normal judgment, Non-suicidal. Review / Management Results review Impression and Plan Diagnosis Hip pain, left - Admitting, Medical. Unilateral primary osteoarthritis, left hip - Admitting, Medical. Status post total hip replacement, left - Admitting, Medical. Aortic stenosis - Admitting, Medical. HTN - Admitting, Medical. Panic attacks - Admitting, Medical. At risk for sleep apnea - Admitting, Medical. Obesity (BMI 30.0-34.9) - Admitting, Medical. Course: Plan/Respirex @ BS and encourage patient to use. Sleep apnea precautions if needed. C-pap at night if needed. Hold all BP meds if BSP < 130 MMHg. If SBP < 90 mmHg, you may give 500 ml NS IVF over one hour. ACT: CONSULT PT/OT as per Dr. caryn zapata. For urinary retention use bladder scanner, you may anchor FC. If no or low UOP you may give 250 mL NS IV over one hour. AM Labs BMP & Hgb/HCT. If pt. spikes fever > 101* F, encourage pt to use Respirex first, then you may give Tylenol 650 mg PO/SD x 1. If no response in 2 hours, you may get blood cx. x2, chest x-ray, sputum CX, S, gram stain x3, UA, C&S. Patient may have chloroseptic spray or throat lozenges for soar throat. DVT prophylaxis. If at any time the HGB is less than 8 type and cross then transfuse 2 units of PRBCs. Premedicate with Tylenol 650 mg PO and Benadryl 25mg PO. Electrolytes Replacement Protocol. -Pain control -DVT prophylaxis -Close monitoring fluid and electrolytes -When necessary nebs -For risk precautions -Sleep apnea precautions -Stress ulcer prophylaxis. documented in this encounter Plan of Treatment Not on file documented as of this encounter Visit Diagnoses Not on filedocumented in this encounter
--- OUTSIDE RECORDS SUMMARY | 2025-06-15 09:59 | XMS_ITS | Encounter Summary ---
Author Organization [employer] ([place], [place], [place], [place], [place]) Address [address] [place] [address] Care Team Providers Care Business Technology Teacher Name Role Phone Unavailable Primary Care Provider Unavailabl e Encounter Details Date Type Department Care Team (Late st Contact Info) Description 04/01/2019 Transcribed Document [facility] Family Medicine [facility] [place] [address] ProviderSb MD [address] [place] [id number] Social History Tobacco Use Types Packs/Day Years Used Date Smoking Tobacco: Never Assessed Comments Unknown Sex and Gender Information Value Date Recorded Sex Assigned at Not on file Legal Sex Female 1:50 PM CDT Gender Identity Not on file Sexual Orientation Not on file documented as of this encounter Miscellaneous Notes * Cerner Conversion Note - Sb Man MD - 04/01/2019 4:59 PM CDT Patient: SHARONDA GEORGE Age: 74 years Sex: Female : 1945 Associated Diagnoses: Hip pain, left; Unilateral primary osteoarthritis, left hip; Status post total hip replacement, left; Aortic stenosis; HTN; Panic attacks; At risk for sleep apnea; Obesity (BMI 30.0-34.9) Author: NATALIE NICHOLS MD-INT Basic Information awake alert comfortable, ???Feeling weak and lethargic ???Unsteady ???High fall risk ???Has urinary retention ???Has dry oral mucosa ???Very volume depleted ???Bladder scan last night revealed 500 ml urine retention Review of Systems Constitutional: No fever, No chills. Eye: No discharge, No blurring, No double vision, No visual disturbances. Ear/Nose/Mouth/Throat: No nasal congestion, No sore throat. Respiratory: No shortness of breath, No cough. Cardiovascular: No chest pain, No palpitations. Gastrointestinal: No nausea, No vomiting. Genitourinary: No change in urine stream. Musculoskeletal: Negative. Integumentary: wound stable covered w. clean dressing. Neurologic: Alert and oriented X4. Health Status Allergies: Allergies (3) Active Reaction Adhesive Bandage O/E - erythematous rash Betadine severe rash Uncoded Allergy (See Comment) hibicleanse Current medications: Medications (35) Active Scheduled: (14) #NaCl 0.9% *FLUSH* inj 10 mL 10 [...] mL inj 40 mg 0.4 mL, SubCutaneous, [id number] folic acid 1 mg tab 1 mg 1 Tab, Oral, Daily hydrochlorothiazide 25 mg tab 12.5 mg 0.5 Tab, Oral, Daily linaclotide 145 mcg cap 290 mcg 2 Cap, Oral, EveryOtherDay lisinopril 20 mg tab 20 mg 1 Tab, Oral, Daily metoprolol succinate XL 50 mg tab 50 mg 1 Tab, Oral, Daily midazolam 2 mg/2 mL inj *PF* 2 mg 2 mL, IV Push, 1-Time scopolamine 1.5 mg/72 hr patch 1 Patch, TransDermal, 1-Time tamsulosin CR 0.4 mg cap 0.4 mg 1 Cap, Oral, BID tranexamic acid 1,000 mg + syringe 1 Each + NaCl 0.9% 20 mL 1,000 mg 10 mL, Topical, 1-Time Continuous: (1) D5/LR 1,000 mL 1,000 mL, IntraVENous, 125 mL/Hr PRN: (20) #NaCl 0.9% *FLUSH* inj 3 mL 5 mL, IntraVENous, See Comment al hydrox/mag hydrox/simeth 30 mL liq 30 mL, Oral, Q6H albuterol-ipratropium inh 3 mL 3 mL, Nebulized Inhalation, Q4H bisacodyl 10 mg supp 10 mg 1 Supp, Rectal, Daily clonazePAM 0.5 mg tab 0.5 mg 1 Tab, Oral, BID cyclobenzaprine 10 mg tab 5 mg 0.5 Tab, Oral, TID diphenhydrAMINE 25 mg tab 25 mg 1 Tab, Oral, On-CALL docusate calcium 240 mg cap 240 mg 1 Cap, Oral, Daily HYDROmorphone 1 mg/1 mL inj 0.5 mg 0.5 mL, IV Push, Q3H magnesium hydroxide 8% liq 30 mL 15 mL, Oral, Q6H ondansetron 4 mg tab 4 mg 1 Tab, Oral, Q6H ondansetron 4 mg/2 mL inj 4 mg 2 mL, IV Push, Q4H oxyCODONE 5 mg tab 5 mg 1 Tab, Oral, Q4H oxyCODONE 5 mg tab 10 mg 2 Tab, Oral, Q4H pantoprazole EC 40 mg tab 40 mg 1 Tab, Oral, Daily phenol 1.4% throat spray 5 [place], Oral, Q2H promethazine 25 mg tab 12.5 mg 0.5 Tab, Oral, Q6H promethazine 25 mg/1 mL inj 12.5 mg 0.5 mL, IV Push, Q6H scopolamine 1.5 mg/72 hr patch 1 Patch, TransDermal, Q3Days traZODone 50 mg tab 50 mg 1 Tab, Oral, At Bedtime Problem list: Active Problems (6) Aortic stenosis At risk for sleep apnea Constipation Cystitis, interstitial HTN Panic attacks Physical Examination VS/Measurements Vital Measurements 04/01/2019 13:25 EDT Systolic Blood Pressure 93 mmHg Diastolic Blood Pressure 40 mmHg LOW Mean Arterial Pressure (MAP)-BMDI 50 Heart Rate Monitored 105 bpm HI Respiratory Rate 16 Breaths/Min Oxygen Saturation 97 % Oxygen Therapy Mode Room air 04/01/2019 10:49 EDT Systolic Blood Pressure 100 mmHg Diastolic Blood Pressure 53 mmHg LOW Mean Arterial Pressure (MAP)-BMDI 64 Temperature Source Oral Temperature Mode Fahrenheit Temperature, Fahrenheit 99.5 Deg F Clinical Temperature, C 37.5 Deg C Heart Rate Monitored 121 bpm HI Respiratory Rate 16 Breaths/Min Oxygen Saturation 94 % Oxygen Therapy Mode Room air 04/01/2019 8:29 EDT Systolic Blood Pressure 141 mmHg HI Systolic Blood Pressure 141 mmHg HI Diastolic Blood Pressure 56 mmHg LOW Diastolic Blood Pressure 56 mmHg LOW Heart Rate, Apical 112 bpm HI General: Alert and oriented, No acute distress. Eye: Pupils are equal, round and reactive to light, Extraocular movements are intact. HENT: Oral mucosa is moist. Neck: Supple, No carotid bruit, No jugular venous distention, No lymphadenopathy, No thyromegaly. Respiratory: Lungs are clear to auscultation, Breath sounds are equal. Cardiovascular: Normal rate, Regular rhythm, No murmur. Gastrointestinal: Soft, Non-tender, Normal bowel sounds, No organomegaly. Genitourinary: No costovertebral angle tenderness, No inguinal tenderness. Lymphatics: No lymphadenopathy neck, axilla, groin. Musculoskeletal: Normal strength, No swelling. Integumentary: Warm, Intact, No rash, WOUND STABLE. Neurologic: Alert, Oriented, No focal deficits. Psychiatric: Cooperative, Appropriate mood & affect. Review / Management Results review: All Results 04/01/2019 3:11 EDT Sodium Level 138 mmol/L Potassium Level 4.5 mmol/L Chloride Level 104 mmol/L Carbon Dioxide Level 32 mmol/L Anion Gap 6 LOW Glucose Level 140 mg/dL HI Blood Urea Nitrogen 10 mg/dL Creatinine Level 0.82 mg/dL eGFR >60 mL/min/1.73m2 eGFR NonAfrican >60 mL/min/1.73m2 Bun/Creatinine 12.2 Calcium Level 8.7 mg/dL Hgb 12.3 Gram/dL Hct 37.3 % . Condition: Stable. Impression and Plan Diagnosis Hip pain, left - Admitting, Medical. Unilateral primary osteoarthritis, left hip - Admitting, Medical. Status post total hip replacement, left - Admitting, Medical. Aortic stenosis - Admitting, Medical. HTN - Admitting, Medical. Panic attacks - Admitting, Medical. At risk for sleep apnea - Admitting, Medical. Obesity (BMI 30.0-34.9) - Admitting, Medical. Course: Plan/ cont. current care, pt/ot, encourage oral fluid intake, nutritional support, encourage use of respirometer, motoring blood pressure, renal function, blood glucose, and urine output. -Hydration -Pain control -DVT prophylaxis -Close monitoring fluid and electrolytes -When necessary nebs -Fall risk precautions -Sleep apnea precautions -Stress ulcer prophylaxis -Discussed with patient options regarding home was on hemodialysis versus rehabilitation/intermediate facility. documented in this encounter Plan of Treatment Not on file documented as of this encounter Visit Diagnoses Not on filedocumented in this encounter
--- OUTSIDE RECORDS SUMMARY | 2025-06-15 09:59 | XMS_ITS | Encounter Summary ---
Author Organization [employer] ([place], [place], [place], [place], [place]) Address [address] [place] [address] Care Team Providers Care Elevator Constructor Hydraulic Name Role Phone Unavailable Primary Care Provider Unavailabl e Encounter Details Date Type Department Care Team (Late st Contact Info) Description 03/31/2019 Transcribed Document [facility] [place] Family Medicine [facility] [place] [address] ProviderSb MD [address] [place] [address] Social History Tobacco Use Types Packs/Day Years Used Date Smoking Tobacco: Never Assessed Comments Unknown Sex and Gender Information Value Date Recorded Sex Assigned at Not on file Legal Sex Female 1:50 PM CDT Gender Identity Not on file Sexual Orientation Not on file documented as of this encounter Miscellaneous Notes * Cerner Conversion Note - Sb ProviderMD - 03/31/2019 4:02 PM CDT Initial Discharge Planning Entered On: 03/31/2019 16:04 EDT Performed On: 03/31/2019 16:02 EDT by DAHIANA ROY Care Management-Operations Professional Initial Assessment I Previously Documented Living Environment : No qualifying data available. Living Situation : Home Patient Lives With : Spouse Emergency Contact #1 : Vijay Hayward Emergency Contact #1 Emergency Contact #1 Relationship : spouse Emergency Contact #2 : . Emergency Contact #2 Phone Number : . Emergency Contact #2 Relationship : . DAHIANA ROY Care Management-Operations Professional - 03/31/2019 16:02 EDT Initial Assessment II Sensory and Motor Deficits : Other: GATO Current Home Treatments and Equipment : Bedside commode DAHIANA ROY Care Management-Operations Professional - 03/31/2019 16:02 EDT Discharge Needs I Anticipated Discharge Date : 04/01/2019 EDT Anticipated Discharge To, CM : Home with home health Current Home Treatment/Equipment : Current Home Treatment/Equipment No qualifying data available. Post Acute/Home Treatments : Walker DAHIANA ROY, Care Management-Operations Professional - 03/31/2019 16:02 EDT Discharge Needs II Professional Skilled Services : Professional Skilled Services No qualifying data available. Discharge Options Discussed with Patient : DME, Home Health KIRLIL, DAHIANA, Care Management-Operations Professional - 03/31/2019 16:02 EDT Narrative Note Narrative Note : PT STATED SHE WANTS HH BUT DOES NOT KNOW WHO SHE WANTS, STATED WE ARE MOVING WAY TOO FAST FOR HER JUST COMING OUT OF SURGER, SHE IS IN PAIN, BURNING DOES NOT WANT TO SIT UP IN CHAIR ANY LONGER. PT INFORMED WITH WOULD BE BACK N AM TO DISCUSS HH AGENCY AND WOULD GET NURSING FOR PAIN AND TO TRANSFER BACK TO BED. PT STATED TO GO AHEAD AND ORDER HER A WALKER SHE NEEDS ONE. DAHIANA ROY Care Management-Operations Professional - 03/31/2019 16:02 EDT documented in this encounter Plan of Treatment Not on file documented as of this encounter Visit Diagnoses Not on filedocumented in this encounter
--- OUTSIDE RECORDS SUMMARY | 2025-06-15 09:59 | XMS_ITS | Encounter Summary ---
Author Organization [employer] ([place], [place], [place], [place], [place]) Address [address] [place] [address] Care Team Providers Care Agent Spa Desk Name Role Phone Unavailable Primary Care Provider Unavailabl e Encounter Details Date Type Department Care Team (Late st Contact Info) Description 03/31/2019 Transcribed Document [facility] [place] [facility] [place] [address] ProviderSb MD [address] [place] [address] Social History Tobacco Use Types Packs/Day Years Used Date Smoking Tobacco: Never Assessed Comments Unknown Sex and Gender Information Value Date Recorded Sex Assigned at Not on file Legal Sex Female 1:50 PM CDT Gender Identity Not on file Sexual Orientation Not on file documented as of this encounter Miscellaneous Notes * Cerner Conversion Note - Sb ProviderMD - 03/31/2019 1:01 PM CDT Admission History, Adult Entered On: 03/31/2019 13:14 EDT Performed On: 03/31/2019 13:01 EDT by Narda Conti Rn Advance Directive Patient has Advance Directive *Q : Yes, Advance Directive not with the patient Advance Directive Type : Living will Copy Advance Directive Verified/on Chart : No Narda Conti Rn - 03/31/2019 13:01 EDT Anesthesia/Transfusion History Family History of Anesthesia Reaction : Prior transfusion without reaction Blood Transfusion Acceptable to Patient : Yes Transfusion History : Prior anesthesia without reaction Family History of Anesthesia Reaction : None Narda Conti Rn - 03/31/2019 13:01 EDT Anticipated Discharge Needs Discharge To, Anticipated : Home Anticipated Discharge Needs at This Time : Outpatient follow-up, Physical Therapy Narda Conti Rn - 03/31/2019 13:01 EDT Education Topics, Admission Orientation DCP GENERIC CODE Advance Directives : Verbalizes understanding, Returns demonstration Allergy Band Applied : Verbalizes understanding, Returns demonstration Assessment/Vital Signs : Verbalizes understanding, Returns demonstration Bed Control : Verbalizes understanding, Returns demonstration Call Light : Verbalizes understanding, Returns demonstration Confidentiality : Verbalizes understanding, Returns demonstration Diet/Room Service : Verbalizes understanding, Returns demonstration Fall Prevention : Verbalizes understanding, Returns demonstration Hand Hygiene : Verbalizes understanding, Returns demonstration Healthcare Provider Visit : Verbalizes understanding, Returns demonstration ID Band Applied : Verbalizes understanding, Returns demonstration Isolation Precautions : Verbalizes understanding, Returns demonstration Orientation to Room/Bathroom : Verbalizes understanding, Returns demonstration Patient Bill of Rights : Verbalizes understanding, Returns demonstration Patient Rights/Responsibilities : Verbalizes understanding, Returns demonstration Patient Safety : Verbalizes understanding, Returns demonstration Personal Privacy Code : Verbalizes understanding, Returns demonstration Rapid Response Initiated by Patient/Family : Verbalizes understanding, Returns demonstration Rounding : Verbalizes understanding, Returns demonstration Siderails use/risks : Verbalizes understanding, Returns demonstration Skin Precautions : Verbalizes understanding, Returns demonstration Smoking Policy : Verbalizes understanding, Returns demonstration Telemetry Monitoring : Verbalizes understanding, Returns demonstration Television/Phone : Verbalizes understanding, Returns demonstration Visiting Policy : Verbalizes understanding, Returns demonstration Narda Conti Rn - 03/31/2019 13:01 EDT Functional Assessment Living Situation : Home Patient Lives With : Spouse Persons Assisting Patient at Home : Spouse Current Daily Living Assistance : None Sensory Deficits : None Mobility Assistance Prior to Admission : Independent CABRERA Hx Falls Immediate/Within 3 Months : No Current Home Treatments : None Home Equipment : Narda Cunningham Rn - 03/31/2019 13:01 EDT General Info Arrived From : Home Mode of Arrival on Unit : Ambulatory Legal Guardian : Daughter, Spouse Support Person/Pt Rep Name : vijay Christina Family/Rep/Phys Notified of Admit : No Emergency Contact #1 : Vijay Hayward Emergency Contact #1 Emergency Contact #1 Relationship : spouse Emergency Contact #2 : . Emergency Contact #2 Phone Number : . Emergency Contact #2 Relationship : . Primary Language : Moroccan Communication Barrier : None Objects to Sharing Info w Family : Narda Lujan Rn - 03/31/2019 13:01 EDT Fall Risk Scales ABCs Fall Injury Risk Identification : Bones, Coagulation, Surgery ABC Fall Injury Risk : Moderate to high injury risk Injury Moderate to High Risk Interventions : Bed alarm on, Chair alarm on, High Risk for Fall Injury sign in place per policy, Patient room close to nurses station, Personal alarm on, Specialty low bed, Supervise toileting as indicated, Transport methods appropriate to patient, Visual cues in place, Wrist band (fall risk) on per policy CABRERA Hx Falls Immediate/Within 3 Months : No Cabrera Secondary Diagnosis : No CABRERA Use of Ambulatory Aid : Bed rest/Nurse assist CABRERA IV Therapy or IV Access : Yes Cabrera Gait/Transferring : Weak Cabrera Mental Status : Oriented to own ability Cabrera Fall Risk Score : 30 CABRERA Fall Scale Risk Level : 25-45 Medium Risk Liberty Fall Interventions : Adequate lighting, Bed in low position, Call device within reach, Fall prevention handout/education per facility policy, Frequent orientation to call device, Frequent orientation to surroundings, Hourly comfort/safety rounds, Non-slip footwear, Personal items within reach, Reinforced to call for assistance before getting out of bed, Room free of clutter/spills, Upper side-rails up, Wheels locked, Wires/Cords secured Fall Moderate to High Risk Interventions : Bed alarm on, Chair alarm on, High Risk for Fall sign in place per policy, Patient room close to nurses station, Supervise toileting as indicated, Personal alarm on, Transport methods appropriate to patient, Visual cues in place, Wrist band (fall risk) on Narda Conti Rn - 03/31/2019 13:01 EDT Fall Risk Education Grid Alarms : Returns demonstration, Verbalizes understanding Assistive Equipment Use : Returns demonstration, Verbalizes understanding Bed Height/Stabilization : Returns demonstration, Verbalizes understanding Call light use : Returns demonstration, Verbalizes understanding Door Open : Returns demonstration, Verbalizes understanding Environmental Management : Returns demonstration, Verbalizes understanding Eyeglasses Use : Returns demonstration, Verbalizes understanding Fall Community Resources : Returns demonstration, Verbalizes understanding Fall Contract/Letter : Returns demonstration, Verbalizes understanding Fall Prevention in the Home : Returns demonstration, Verbalizes understanding Fall Prevention Protocol : Returns demonstration, Verbalizes understanding Hearing Aid Use : Returns demonstration, Verbalizes understanding Home Risk Assessment : Returns demonstration, Verbalizes understanding Need Constant Observation : Returns demonstration, Verbalizes understanding Night Light Use : Returns demonstration, Verbalizes understanding Nonskid Footwear Use : Returns demonstration, Verbalizes understanding Notification of Staff When Leaving : Returns demonstration, Verbalizes understanding Orthostatic Hypotension Precautions : Returns demonstration, Verbalizes understanding Personal Article Availability : Returns demonstration, Verbalizes understanding Prevention Responsibility Family : Returns demonstration, Verbalizes understanding Prevention Responsibility Patient : Returns demonstration, Verbalizes understanding Risk Alert Methods : Returns demonstration, Verbalizes understanding Risk Factors : Returns demonstration, Verbalizes understanding Safety Aids : Returns demonstration, Verbalizes understanding Siderails use/risks : Returns demonstration, Verbalizes understanding Special Assistive Devices : Returns demonstration, Verbalizes understanding Staff Responsiveness : Returns demonstration, Verbalizes understanding Symptom Identification & Action Plan *Q : Returns demonstration, Verbalizes understanding Symptom Reporting : Returns demonstration, Verbalizes understanding Toileting Schedule : Returns demonstration, Verbalizes understanding Transfer/Mobility Techniques : Returns demonstration, Verbalizes understanding Urinal/Bedpan Availability : Returns demonstration, Verbalizes understanding Wait for Assistance : Returns demonstration, Verbalizes understanding Wheelchair Safety : Returns demonstration, Verbalizes understanding Narda Conti Rn - 03/31/2019 13:01 EDT Barriers to Learning : None evident Highest Level of Education : None Learning Style Preferences Patient : Verbal explanation Fall Risk Scale Calc Temp : 1 Narda Conti Rn - 03/31/2019 13:01 EDT Health Histories Smoking Status : Other: stopped 14 yrs ago Smokeless Tobacco Status : Never Narda Conti Rn - 03/31/2019 13:01 EDT Social History (As Of: 03/31/2019 13:14:55 EDT) Tobacco: Use in Last 12 Months: No. (Last Updated: 02/24/2015 20:11:38 EDT by JEREMY REECE, CARMITA) stopped 14 yrs ago Smoking Status. Never Smokeless Tobacco Status. (Last Updated: 03/13/2019 13:49:25 EDT by Kassidy Morgan RN) Alcohol: Alcohol Use History No. (Last Updated: 02/24/2015 20:11:31 EDT by JEREMY REECE, CARMITA) Substance Abuse: Drug Use Hx: No. (Last Updated: 02/24/2015 20:11:34 EDT by JEREMY REECE, CARMITA) Height and Weight, Clinical Dosing Height Source : Measured Height Entry Format : [place] Height, Feet : 5 ft(Converted to: 152 cm, 60 Inch) Height, Inches : 1 Inch(Converted to: 0 ft 1 Inch, 2.54 cm) Clinical Height : 154.94 cm Weight Source : Standing scale Weight Entry Format : [place] Clinical Dosing Weight : 82.27 kg Weight, Pounds : 181 lb Body Surface Area (BSA) : 1.81 m2 Body Mass Index : 34.3 kg/m2 (HI) [place] Body Weight : 47 kg Narda Conti Rn - 03/31/2019 13:01 EDT Infectious Disease History Infectious Disease History : Chicken pox/Shingles, Hepatitis Non A, B, C, Influenza, Measles Active Surveillance Screen Assessment : Patient does not meet any of above criteria Active Surveillance Screen Negative : Yes Isolation Needed : Standard Fever/Chills Last 48 Hours : No Travel To Regions with Travel Advisories : No Travel Outside [place] Within Last 30 Days : No Contact With Traveler to Advisory Region : No Tuberculosis Symptoms : None Narda Conti Rn - 03/31/2019 13:01 EDT Tetanus Immunization Status Previous Tetanus Immunizations : No qualifying data available. Tetanus Immunization : Greater than 10 years Narda Conti Rn - 03/31/2019 13:01 EDT Influenza Vaccine Asmt, Adult Previous Vaccines from Immunization Schedule : No qualifying data available. Influenza Immunization, Current Season : Yes Influenza Immunization Date : 05/06/2018 EDT Narda Conti Rn - 03/31/2019 13:01 EDT Pneumococcal Vaccine Previous Vaccines from Immunization Schedule : No qualifying data available. Pneumonia Immunization Received : Yes Pneumonia Immunization Date : 05/06/2018 EDT Narda Conti Rn - 03/31/2019 13:01 EDT Order Details Transport Mode Order Detail : Bed (including specialty) Isolation Precautions Order Detail : Standard Precautions Order Detail : N/A IV Order Detail : 1 Oxygen Order Detail : 1 Nurse Collect Order Detail : 0 Lift/Transfer : Moderate assist Central Line Order Detail : No Room Service : Appropriate Arterial Line : No Narda Conti Rn - 03/31/2019 13:01 EDT Nutrition History Feeding Ability : Independent Adaptive Feeding Equipment : None Adaptive Feeding Equipment : Regular Oral Medication Administration : By mouth Eating Poorly Due to Decreased Appetite : Yes Unplanned Weight Loss in Past 3-6 Months : No Malnutrition Screening Tool Total(mal) : 1 Malnutrition Screening Tool Risk Level : Patient not at risk Narda Conti Rn - 03/31/2019 13:01 EDT Psychosocial History Does Someone Depend on You for Care? : No Currently in Unsafe Situation : No Tried to Harm Yourself in the Past? : No Thoughts of Harming/Killing Yourself : No Narda Conti Rn - 03/31/2019 13:01 EDT Sleep Apnea Risk Assmt Hx of Obstructive Sleep Apnea Diagnosis : No Snore Loudly : Yes Tired, Fatigued, or Sleepy During Day : Yes Observed Stopping Breathing During Sleep : No Have/Are Being Treated for Hypertension : Yes BMI Greater Than 35 kg/m2 : No Age over 50 Years Old : Yes Neck Circumference Greater Than 40 cm : No Gender Male : No STOP-BANG Sleep Apnea Risk Level Score : 4 Narda Conit Rn - 03/31/2019 13:01 EDT Spiritual/Cultural Needs Significant Loss/Crisis in Past 3 Years : No Significant Distress/Coping/Need Support : No Any Spiritual/Cultural Needs or Requests : No Narda Conti Rn - 03/31/2019 13:01 EDT Valuables and Belongings Valuables and Belongings : Clothing Clothing : Common streetwear Clothing Disposition : With family Narda Conti Rn - 03/31/2019 13:01 EDT documented in this encounter Plan of Treatment Not on file documented as of this encounter Visit Diagnoses Not on filedocumented in this encounter
--- OUTSIDE RECORDS SUMMARY | 2025-06-15 09:59 | XMS_ITS | Encounter Summary ---
Author Organization [employer] ([place], [place], [place], [place], [place]) Address [address] [place] [address] Care Team Providers Care Loss Prevention Research Engineer Name Role Phone Unavailable Primary Care Provider Unavailabl e Encounter Details Date Type Department Care Team (Late st Contact Info) Description 03/31/2019 Transcribed Document [facility] [place] Family Medicine [facility] [place] [address] ProviderSb MD [address] [place] [address] Social History Tobacco Use Types Packs/Day Years Used Date Smoking Tobacco: Never Assessed Comments Unknown Sex and Gender Information Value Date Recorded Sex Assigned at Not on file Legal Sex Female 1:50 PM CDT Gender Identity Not on file Sexual Orientation Not on file documented as of this encounter Miscellaneous Notes * [employer]ner Conversion Note - Sb ProviderMD - 03/31/2019 1:28 PM CDT UM Authorization Entered On: 03/31/2019 13:28 EDT Performed On: 03/31/2019 13:28 EDT by MANUEL HAMPTON RN-Utilization Review Primary Insurance Authorization Authorization and Policy Numbers : Insurance 1 Health Plan: [employer] PPO Policy Number: [id number] Authorization Number: [id number] Insurance Primary Name : [employer] PPO Policy Number: [id number] Authorization Status-Primary : Notification only Authorization Number-Primary : [id number] Authorized Service Begin Date-Primary : 03/31/2019 EDT Historical Authorization Comments-Primary : Comment 1: [employer] PPO approved per availity for inpt -- must fax clinicals (MANUEL HAMPTON RN-Utilization Review 03/19/2019 11:55) MANUEL HAMPTON RN-Utilization Review - 03/31/2019 13:28 EDT documented in this encounter Plan of Treatment Not on file documented as of this encounter Visit Diagnoses Not on filedocumented in this encounter
--- OUTSIDE RECORDS SUMMARY | 2025-06-15 09:59 | XMS_ITS | Clinical Summary ---
Author Organization Healthcare Address [address] [place] [address] Care Team Providers Care Steam Table Associate Name Role Phone Nabeel Rios MD Primary Care Provider [phone] Allergies Active Allergy Reactions Criticality Noted Date [...] traZODone (Desyrel) 50 MG tablet 1 Active Encounters Date Type Department Care Team Description 05/06/2025 Orders Only Medical Office Building Obstetrics and Gynecology [address], [address] [place] [address] Rosa Marks 05/06/2025 Telephone Medical Office Building Obstetrics and Gynecology [address], [address] [place] [address] Angelina Carl APRN from Last 3 Months Social History Tobacco Use Types Packs/Day Years [...] Upcoming Encounters Date Type Department Care Team ([facility] st Contact Info) Description 09/22/2025 2:00 PM EST Office Visit Medical Office Building Obstetrics and Gynecology [address], [address] [place] [address] Angelina Carl R, PHARMACY TECH [address] [place] [address] Health Maintenance Due Date Last Done Comments [facility]-Bone Density Scan 1945 [facility]-Depression Screening 1945 [facility]-Hepatitis C Screening 1945 [facility]-Medicare Annual Wellness (AWV) 1945 [facility]-/Child/Adol SDOH Screenings 1945 [facility]- SDOH Screenings 1964 [facility]-Adult SDOH Screenings 1964 [facility]-Zoster Vaccines (1 of 2) 1996 [facility]-RSV Vaccine: 60+ Years or (1 - 1-dose 75+ series) 2021 [id number] Vaccine (4 - 2024- season) 2025 06/29/2021, 11/05/2020, 10/05/2020 [facility]-Influenza Vaccine (#1) 04/06/202504/18, [...] provider. us Historical Provider GI PROCEDURE ORDERABLES Ally l Result from Last 3 Months or Most Recently Relevant to Health Maintenance Insurance [employer] MEDICARE Care Teams Steam Table Associate Relationship Specialty Start Date End Date Nabeel Rios MD [address] [facility] [address] [place], [place] [id number] PCP - General 05/06/25
--- OUTSIDE RECORDS SUMMARY | 2025-06-15 09:59 | XMS_ITS | Encounter Summary ---
Author Organization [employer] ([place], [place], [place], [place], [place]) Address [address] [place] [address] Care Team Providers Care Beauty Operator Apprentice Name Role Phone Unavailable Primary Care Provider Unavailabl e Encounter Details Date Type Department Care Team (Late st Contact Info) Description 04/01/2019 Transcribed Document [facility] [place] Family Medicine [facility] [place] [address] ProviderSb MD [address] [place] [address] Social History Tobacco Use Types Packs/Day Years Used Date Smoking Tobacco: Never Assessed Comments Unknown Sex and Gender Information Value Date Recorded Sex Assigned at Not on file Legal Sex Female 1:50 PM CDT Gender Identity Not on file Sexual Orientation Not on file documented as of this encounter Miscellaneous Notes * Cerner Conversion Note - Historical ProviderMD - 04/01/2019 3:14 AM CDT Event Note Entered On: 04/01/2019 3:16 EDT Performed On: 04/01/2019 3:14 EDT by Sonny Jeong RN Event Note Event Date/Time : 04/01/2019 2:30 EDT Event Location : Assigned room Event Details : Nursing assessment additional narrative Description of Event : Patient reported hearing sounds in her ears. Stated she has heard them for 4 years. Stated it sounds like waterfalls sometimes. Wanted more klonipin. Educated patient on doctor's orders for klonipin and advised she talk with in the morning. Sonny Jeong RN - 04/01/2019 3:14 EDT Electronically signed by V[place]a [employer] Conversion Narcotics And/Or Vice Detective Fernnado at 11/21/2022 4:07 PM CDT documented in this encounter Plan of Treatment Not on file documented as of this encounter Visit Diagnoses Not on filedocumented in this encounter
--- OUTSIDE RECORDS SUMMARY | 2025-06-15 10:00 | XMS_ITS | Encounter Summary ---
Author Organization [employer] ([place], [place], [place], [place], [place]) Address [address] [place] [address] Care Team Providers Care Industrial Maintenance Mechanic Name Role Phone Unavailable Primary Care Provider Unavailabl e Encounter Details Date Type Department Care Team (Late st Contact Info) Description 03/31/[address] [facility] [place] [facility] [place] [address] ProviderSb MD [address] [place] [address] Social History Tobacco Use Types Packs/Day Years Used Date Smoking Tobacco: Never Assessed Comments Unknown Sex and Gender Information Value Date Recorded Sex Assigned at Not on file Legal Sex Female 1:50 PM CDT Gender Identity Not on file Sexual Orientation Not on file documented as of this encounter Miscellaneous Notes * Cerner Conversion Note - Sb ProviderMD - 03/31/2019 8:18 AM CDT [facility] PreOp Summary Primary Physician: YAMILETH OMER MD-ORT Finalized Date/Time: 03/31/19 08:44:38 Pt. Name: SHARONDA GEORGE D.O.B./Sex: 1945 Female Med Rec #: [id number] Physician: YAMILETH OMER MD-ORT Financial #: [id number] Pt. Type: I Room/Bed: [facility]/4 Admit/Disch: 03/31/19 04:43:00 - Institution: [facility] PreOp Case Times Entry 1 In Preop 03/31/19 05:35:00 Ready for Holding n/a Room Patient Ready for 03/31/19 07:23:00 Surgery Patient Out of Preop 03/31/19 07:28:00 Patient Out of n/a Holding Room Last Modified By: RADHA CALIX 03/31/19 08:44:37 SJ PreOp Case Times Audit 03/31/19 08:44:37 Brush Hand: [email or web address] Modifier: [email or web address] <+> 1 Patient Out of Preop 03/31/19 07:27:58 Brush Hand: FLOYDSF Modifier: [email or web address] <+> 1 Patient Ready for Surgery Finalized By: RADHA CALIX Document Signatures Signed By: RADHA CALIX 03/31/19 08:44 Electronically signed by Александр Freeman [facility] Conversion Corset Fitter Cerner at 11/21/2022 4:07 PM CDT documented in this encounter Plan of Treatment Not on file documented as of this encounter Visit Diagnoses Not on filedocumented in this encounter
--- OUTSIDE RECORDS SUMMARY | 2025-06-15 10:00 | XMS_ITS | Encounter Summary ---
Author Organization [employer] ([place], [place], [place], [place], [place]) Address [address] [place] [address] Care Team Providers Care Electrical Service Technician Name Role Phone Unavailable Primary Care Provider Unavailabl e Encounter Details Date Type Department Care Team (Late st Contact Info) Description 03/31/2019 Transcribed Document [facility] [place] [facility] [place] [address] ProviderSb MD [address] [place] [address] Social History Tobacco Use Types Packs/Day [...] 03/31/2019 8:18 AM CDT [facility] OR PACU Summary Primary Physician: YAMILETH OMER MD-ORT Finalized Date/Time: 03/31/19 12:49:45 Pt. Name: SHARONDA GEORGE D.O.B./Sex: 1945 Female Med Rec #: [id number] Physician: YAMILETH OMER MD-ORT Financial #: [id number] Pt. Type: I Room/Bed: [facility] Admit/Disch: 03/31/19 04:43:00 - Institution: [facility] OR PACU Case Times Entry 1 In PACU I 03/31/19 10:52:00 Ready for PACU 03/31/19 12:42:00 Discharge Discharge from PACU 03/31/19 12:42:00 I Last Modified By: Felisha Gastelum Rn Patient Care Bedside 03/31/19 12:49:42 [facility] OR PACU Case Times Audit 03/31/19 12:49:42 Senior Advocate: JEANETH Modifier: JEANETH 1 <*> Ready for PACU Discharge 03/31/19 12:49:00 1 <*> Discharge from PACU I 03/31/19 12:49:00 03/31/19 12:49:26 Senior Advocate: JEANETH Modifier: JEANETH <+> 1 Ready for PACU Discharge <+> 1 Discharge from PACU I Finalized By: Felisha Gastelum Rn Patient Care Bedside Document Signatures Signed By: Felisha Gastelum Rn Patient Care Bedside 03/31/19 12:49 Electronically signed by Isaak Fountain Conversion Hair Spinning Machine Operator Cerner at 11/21/2022 4:09 PM CDT documented in this encounter Plan of Treatment Not on file documented as of this encounter Visit Diagnoses Not on filedocumented in this encounter
--- OUTSIDE RECORDS SUMMARY | 2025-06-15 10:00 | XMS_ITS | Encounter Summary ---
Author Organization [employer] ([place], [place], [place], [place], [place]) Address [address] [place] [address] Care Team Providers Care Print Line Supervisor Name Role Phone Unavailable Primary Care Provider Unavailabl e Encounter Details Date Type Department Care Team (Late st Contact Info) Description 03/31/2019 Transcribed Document [facility] [place] [facility] [place] [address] ProviderSb MD [address] [place] [address] Social History Tobacco Use Types Packs/Day Years Used Date Smoking Tobacco: Never Assessed Comments Unknown Sex and Gender Information Value Date Recorded Sex Assigned at Not on file Legal Sex Female 1:50 PM CDT Gender Identity Not on file Sexual Orientation Not on file documented as of this encounter Miscellaneous Notes * Cerner Conversion Note - Sb ProviderMD - 03/31/2019 2:17 PM CDT Treatment Intervention, OT Entered On: 04/01/2019 11:09 EDT Performed On: 04/01/2019 10:56 EDT by NYASIA CARTER OTR/Cherry General Information, OT Visit Type, OT : Treatment Note Patient Orders : Order Date Order Ordering 03/31/2019 10:40 OT Evaluation and Treatment Ordered By: YAMILETH OMER MD-ORT 03/31/2019 14:17 Occupational Therapy Additional Tx Ordered By: Active Diagnoses : 03/31/2019 12:00 Essential (primary) hypertension 03/31/2019 12:00 Nonrheumatic aortic (valve) stenosis 03/31/2019 12:00 Obesity, unspecified 03/31/2019 12:00 Other specified personal risk factors, not elsewhere classified 03/31/2019 12:00 Pain in left hip 03/31/2019 12:00 Panic disorder [episodic paroxysmal anxiety] 03/31/2019 12:00 Presence of left artificial hip joint 03/31/2019 12:00 Unilateral primary osteoarthritis, left hip Admission Date : 03/31/2019 04:43 Assisted by, OT : Nursing, assistant health educator (MAINTENANCE AND REPAIR WORKER) Personal Devices : Personal Devices No Devices Recorded Assistive Devices : Assistive Devices No Devices Recorded Precautions in Place : Fall prevention measures NYASIA CARTER OTR/L - 04/01/2019 11:00 EDT General Status Patient Received Status : Up in chair, Chair alarm activated, Other: and nurse present , scds, Treatment Start Time : 04/01/2019 9:07 EDT Patient Left Status : Up in chair, RN/PCT informed, Family/Visitors at bedside, All needs met and within reach, Other: left seated in w/c with MAINTENANCE AND REPAIR WORKER and family RN/PCT Informed Comment : RN ok'd to tx, ID and verified Treatment End Time : 04/01/2019 10:56 EDT Treatment Time : 109 Minute(s) Actual Treatment Time : 39 Minute(s) NYASIA CARTER OTR/L - 04/01/2019 11:00 EDT Education OT Occupational Therapy Education Grid Activity of Daily Living Training : Needs further teaching, Returns demonstration Functional Mobility Training : Returns demonstration, Needs further teaching Home Safety : Verbalizes understanding (Comment: handout provided [NYASIA CARTER OTR/L - 04/01/2019 11:00 EDT] ) NYASIA CARTER OTR/L - 04/01/2019 11:00 EDT Plan of Care, OT OT Tx Plan/Goals Established w Patient : Yes NYASIA CARTER OTR/L - 04/01/2019 11:00 EDT Chcf Goals, OT Other LTG Grid Goal #1 Goal #2 Goal #3 Goal : Pt will VU of home safety and car transfer handout. Pt will complete ADL transfer with CGA, RW level. Pt will complete LB self care task with CGA, AE prn. Date to Meet : 04/06/2019 EDT 04/06/2019 EDT 04/06/2019 EDT Goal Status : Goal met Progressing, continue Progressing, continue Date Met : 04/01/2019 EDT NYASIA CARTER OTR/L - 04/01/2019 11:00 EDT NYASIA CARTER OTR/L - 04/01/2019 11:00 EDT NYASIA CARTER OTR/L - 04/01/2019 11:00 EDT Treatment Note Subjective Comment : pt agrees to tx Patient's Response to Treatment : needs much encouraging Additional Objective Information : pt seen for split session from [id number] (29 minutes ) and [id number] (10 minutes) pt c/o pain and feeling weak throughout tx. assist from RN and MAINTENANCE AND REPAIR WORKER during tx. pt educated on ADL technique for LB dressing requiring mod/max assist to complete, pt self limiting and c/o being anxious and pain hindering, RN medicated pt prior to tx. with assist of RN pt completes transfer bed <-> chair min assist x2 person and max cues for technique/safety using rw and gait belt. pt initially c/o LLE buckling and not able to move however demonstrates ability to complete transfers with cues for technique. with assist of MAINTENANCE AND REPAIR WORKER pt completes functional mobility chair follow to hallway min assist x1 and CGA of another for safety as pt continues to c/o weakness. pt left with MAINTENANCE AND REPAIR WORKER seated in hallway in w/c. education on home safety with handout provided Assessment : pt will continue to benefit from skilled OT while inpt , progressing with goals. self limiting behaviors and anxiety limiting during tx. Plan for Treatment : continue POC, pt will likely not discharge home until tomorrow with home health and family assist. will benefit from further education NYASIA CARTER OTR/L - 04/01/2019 11:00 EDT Pain Assessment Pain Scaled Used : 0-10 Pain scale Pain Score Pre-Intervention : 10 Location : Leg, left Pain Comment : RN present and has given pt her pain meds NYASIA CARTER OTR/L - 04/01/2019 11:00 EDT Image 1 - Images currently included in the form version of this document have not been included in the text rendition version of the form. [facility] OT Charges OT Selfcare/Hm Mgmt Ea 15 Min : 3 NYASIA CARTER OTR/L - 04/01/2019 11:00 EDT documented in this encounter Plan of Treatment Not on file documented as of this encounter Visit Diagnoses Not on filedocumented in this encounter
--- OUTSIDE RECORDS SUMMARY | 2025-06-15 10:00 | XMS_ITS | Encounter Summary ---
Author Organization [employer] ([place], [place], [place], [place], [place]) Address [address] [place] [address] Care Team Providers Care Commercial Intelligence Manager Name Role Phone Unavailable Primary Care Provider Unavailabl e Encounter Details Date Type Department Care Team (Late st Contact Info) Description 04/03/2019 Transcribed Document [facility] [place] [facility] [place] [address] ProviderSb MD [address] [place] [address] Social History Tobacco Use Types Packs/Day Years Used Date Smoking Tobacco: Never Assessed Comments Unknown Sex and Gender Information Value Date Recorded Sex Assigned at Not on file Legal Sex Female 1:50 PM CDT Gender Identity Not on file Sexual Orientation Not on file documented as of this encounter Miscellaneous Notes * Cerner Conversion Note - Sb Man MD - 04/03/2019 1:57 PM CDT Patient: SHARONDA GEORGE Age: 74 years Sex: Female : 1945 Associated Diagnoses: Hip pain, left; Unilateral primary osteoarthritis, left hip; Status post total hip replacement, left; Aortic stenosis; HTN; Panic attacks; At risk for sleep apnea; Obesity (BMI 30.0-34.9); Fever, Resolved; HypoxemiaResolved now oxygen saturation 97% on room air Author: NATALIE NICHOLS MD-INT Basic Information 74 years old white female with a history of left hip pain secondary to DJD and after medical clearance by her PCP she underwent left total hip arthroplasty through anterior approach by Dr. Rubio. 1???fever, patient was running a low-grade fever. She had a chest x-ray that revealed no abnormality detected. UA was unremarkable. Right lower extremity venous duplex was negative for DVT. We have encouraged the patient to use incentive spirometer and her fever resolved. 2???hypoxemia, patient had poor respiratory effort, we encourage the patient to use incentive spirometer. She had an elevated D dimer. A CT angiogram Of the chest with PE protocol was ordered But unfortunately patient refused to have the test done.Currently her oxygen saturation is 97% room air after using the respirometer. 3???aortic stenosis,Stable 4???benign essential hypertension, all blood pressure medications were on hold for systolic blood pressure less than 130 and resumed when blood pressure became stabilized. 5???at risk for sleep apnea, oxygen and BiPAP were on board 6???obesity with BMI of 34.3, patient was on sleep apnea precautions During her hospitalization patient was on DVT prophylaxis as per Dr. Quiroga recommendations. Initially started on clear liquid diet which was advanced to regular diet and was tolerating well oral by mouth intake. Here urine output is adequate.She was on scheduled bowel regimen and patient had a bowel movement today before her discharge. She started on PT/OT and is participating poorly with rehabilitation and he needs an extensive rehabilitation so she will be discharged to a rehabilitation facility/residential facility. Today patient is awake alert cooperative responsive under no acute distress. Patient is stable for discharged to another level of care. Review of Systems Constitutional: No fever, No weakness, No fatigue. Eye: No recent visual problem, No double vision, No visual disturbances. Ear/Nose/Mouth/Throat: No nasal congestion, No sore throat. Respiratory: No shortness of breath, No cough, No wheezing. Cardiovascular: No chest pain, No tachycardia. Gastrointestinal: No nausea, No vomiting. Genitourinary: Negative. Musculoskeletal: Negative. Integumentary: wound stable covered w. clean dressing, No rash, No pruritus. Neurologic: Alert and oriented X4, no dizziness. Health Status Allergies: Allergies (3) Active Reaction Adhesive Bandage O/E - erythematous rash Betadine severe rash Uncoded Allergy (See Comment) hibicleanse Current medications: Medications (37) Active Scheduled: (14) #NaCl 0.9% *FLUSH* inj [...] mL inj 40 mg 0.4 mL, SubCutaneous, [id number] folic acid 1 mg tab 1 mg [...] mL 1,000 mL, IntraVENous, 125 mL/Hr PRN: (22) #NaCl 0.9% *FLUSH* inj 3 mL 5 [...] 0.5 mg 0.5 mL, IV Push, Q3H lactulose 20 g/30 mL oral liq 30 Gram 45 mL, Oral, Q8H magnesium citrate liq 300 mL 300 mL, Oral, Daily magnesium hydroxide 8% liq 30 mL 15 [...] Oral, Daily phenol 1.4% throat spray 5 [place], Oral, Q2H promethazine 25 mg tab 12.5 [...] Panic attacks Physical Examination VS/Measurements Vital Measurements 04/03/2019 9:00 EDT Systolic Blood Pressure 116 mmHg Diastolic Blood Pressure 41 mmHg LOW Mean Arterial Pressure (MAP)-BMDI 58 Heart Rate, Apical Not Done: Not Appropriate at this Time (Not Done) Heart Rate Monitored 121 bpm HI Oxygen Saturation 97 % Oxygen Therapy Mode Room air 04/03/2019 6:00 EDT Systolic Blood Pressure 120 mmHg Diastolic Blood Pressure 49 mmHg LOW Mean Arterial Pressure (MAP)-BMDI 67 Temperature Source Oral Temperature Mode Fahrenheit Temperature, Fahrenheit 98.1 Deg F Clinical Temperature, C 36.7 Deg C Heart Rate Monitored 120 bpm HI Respiratory Rate 15 Breaths/Min Oxygen Saturation 95 % 04/03/2019 2:53 EDT Systolic Blood Pressure 111 mmHg Diastolic Blood Pressure 40 mmHg LOW Mean Arterial Pressure (MAP)-BMDI 55 Temperature Source Oral Temperature Mode Fahrenheit Temperature, Fahrenheit 98.8 Deg F Clinical Temperature, C 37.1 Deg C Heart Rate Monitored 119 bpm HI Respiratory Rate 17 Breaths/Min Oxygen Saturation 92 % LOW General: Alert and oriented, No acute distress. [...] Review / Management Results review: All Results 04/02/2019 14:05 EDT D Dimer Quant 1,315 ng/mL HI 04/02/2019 13:37 EDT pH Art 7.45 pCO2 Art 40.8 mmHg pO2 Art 65.5 mmHg LOW HCO3 Art 27.7 mmol/L HI BE Art 3.8 mmol/L HI sO2 Art 92.6 % LOW tHb Art 11.2 Gram/dL LOW ctO2 14.2 mmol/L NA FIO2 Art 21.0 NA Delivery Device Type Art Room Air Temperature, F Art 98.6 Deg F NA Art Blood Gas (ABG) Site Right Radial Acceptable Keshawn's Test Art Acceptable ABG Num of Draw Attempts 1 NA 04/01/2019 3:11 EDT Sodium Level 138 mmol/L Potassium Level 4.5 mmol/L Chloride Level 104 mmol/L Carbon Dioxide Level 32 mmol/L Anion Gap 6 LOW Glucose Level 140 mg/dL HI Blood Urea Nitrogen 10 mg/dL Creatinine Level 0.82 mg/dL eGFR >60 mL/min/1.73m2 eGFR NonAfrican >60 mL/min/1.73m2 Bun/Creatinine 12.2 Calcium Level 8.7 mg/dL Hgb 12.3 Gram/dL Hct 37.3 % . Condition: Stable. Radiology Results (Last 48 hours) [id number] -- 03/31/2019 04:43 CR Chest 1 Vw (04/02/2019 14:12) Result: PORTABLE CHEST 04/02/2019 12:21 PM HISTORY: Anterior chest pain.COMPARISON: None.FINDINGS: The heart is proper size. The mediastinum is unremarkable. Diffuse interstitial changes are probably chronic. The lungs areotherwise clear. There is no pneumothorax. The osseous structures areunremarkable. IMPRESSION: No acute cardiopulmonary process. Continued follow-up is recommended.LEFT HIP SERIESHISTORY: Joint pain. Recent surgery .FINDINGS: A two view exam demonstrates surgical changes of left hiparthroplasty. The hardware has a normal appearance. No fracture isidentified. IMPRESSION: Surgical changes of left hip arthroplasty without hardwarecomplication.Images reviewed, interpreted, and dictated by Dr. Virginie Dickinson.Transcribed by Gabriel Royal.I have personally viewed, interpreted and dictated the examination. Sarahi read and agree with the above final transcribed report. CR Hip 1 Vw LT (04/02/2019 14:12) Result: PORTABLE CHEST 04/02/2019 12:21 PM HISTORY: Anterior chest pain.COMPARISON: None.FINDINGS: The heart is proper size. The mediastinum is unremarkable. Diffuse interstitial changes are probably chronic. The lungs areotherwise clear. There is no pneumothorax. The osseous structures areunremarkable. IMPRESSION: No acute cardiopulmonary process. Continued follow-up is recommended.LEFT HIP SERIESHISTORY: Joint pain. Recent surgery .FINDINGS: A two view exam demonstrates surgical changes of left hiparthroplasty. The hardware has a normal appearance. No fracture isidentified. IMPRESSION: Surgical changes of left hip arthroplasty without hardwarecomplication.Images reviewed, interpreted, and dictated by Dr. Virginie Dickinson.Transcribed by Gabriel Royal.I have personally viewed, interpreted and dictated the examination. Sarahi read and agree with the above final transcribed report. US Veins LE Duplex LTD LT (04/02/2019 14:47) Result: LEFT LOWER EXTREMITY VENOUS DOPPLERCLINICAL HISTORY: Pain after left hip surgery..COMPARISON: None.FINDINGS: Hanna-scale, color Doppler and pulsed Doppler evaluation revealnormal compressibility, flow, and augmentation. There are normal venouswaveforms.IMPRESSION: No evidence of deep venous thrombosis. Discharge Plan Discharge Summary Plan Discharge Status: stable. Orders Order Profile (Selected) Inpatient Orders Ordered Discharge Notification Pharmacy: Start: 04/03/19 13:52:19 EDT Discharge: Start: 04/03/19 13:52:00 EDT, Discharge to: Rehabilitation unit/facility. Diagnosis Hip pain, left - Discharge, Medical. Unilateral primary osteoarthritis, left hip - Discharge, Medical. Status post total hip replacement, left - Discharge, Medical. Aortic stenosis - Discharge, Medical. HTN - Discharge, Medical. Panic attacks - Discharge, Medical. At risk for sleep apnea - Discharge, Medical. Obesity (BMI 30.0-34.9) - Discharge, Medical. Fever, Resolved - Discharge, Medical. HypoxemiaResolved now oxygen saturation 97% on room air - Discharge, Medical. Course Improving. Stable. Plan/ pt is HD & CLINICALLY STABLE AFEBRILE OK TO D/C HOME ALL CONSULTANTS AGREE FOR HER D/C HOME ON HH / OUTPT.REHAB. Discussed with patient and family patient condition.. Orders Order Profile (Selected) Prescriptions Prescribed Percocet 7.5/325 oral tablet: 1 Tab, Oral, Tab, Q4H, PRN for pain, 1 by mouth every 4-6 hours when necessary, X 10 Day(s), # 40 Tab, 0 Refill(s), other reason (Rx) Xarelto 10 mg oral tablet: 1 Tab, Oral, Tab, Daily, # 7 Tab, 0 Refill(s), other reason (Rx) aspirin 325 mg oral tablet: 1 Tab, Oral, Tab, BID, for DVT prophylaxisto be started after finishing the course of his Xarelto 10 mg oral daily ??7 days, # 60 Tab, 0 Refill(s), other reason (Rx) Documented Medications Documented Benadryl 25 mg oral tablet: 2 Tab, Oral, At Bedtime, 0 Refill(s) Estrace 1 mg oral tablet: 1 Tab, Oral, Daily, 0 Refill(s) Klor-Con M20: 1 Tab, Oral, Daily, 0 Refill(s) Linzess 290 mcg oral capsule: 1 Cap, Oral, EveryOtherDay, 0 Refill(s) Metoprolol Succinate ER: 50 mg, Oral, Daily, 0 Refill(s) atorvastatin 20 mg oral tablet: 1 Tab, Oral, At Bedtime, 0 Refill(s) docusate: 100 mg, Oral, EveryOtherDay, 0 Refill(s) folic acid 0.4 mg oral tablet: 1 Tab, Oral, Tab, Daily, # 100 Tab, 0 Refill(s) hydroCHLOROthiazide-lisinopril 12.5 mg-20 mg oral tablet: 1 Tab, Oral, Tab, Daily, # 30 Tab, 0 Refill(s) omeprazole: 20 mg, Oral, Cap, Daily, PRN Heartburn, 0 Refill(s). Impression and Plan twt 40 mn documented in this encounter Plan of Treatment Not on file documented as of this encounter Visit Diagnoses Not on filedocumented in this encounter
--- OUTSIDE RECORDS SUMMARY | 2025-06-15 10:00 | XMS_ITS | Encounter Summary ---
Author Organization [employer] ([place], [place], [place], [place], [place]) Address [address] [place] [address] Care Team Providers Care Ergonomics Consultant Name Role Phone Unavailable Primary Care Provider Unavailabl e Encounter Details Date Type Department Care Team (Late st Contact Info) Description 03/31/2019 Transcribed Document [facility] [place] [facility] [place] [address] ProviderSb MD [address] [place] [address] Social History Tobacco Use Types Packs/Day Years Used Date Smoking Tobacco: Never Assessed Comments Unknown Sex and Gender Information Value Date Recorded Sex Assigned at Not on file Legal Sex Female 1:50 PM CDT Gender Identity Not on file Sexual Orientation Not on file documented as of this encounter Miscellaneous Notes * Cerner Conversion Note - Sb ProviderMD - 03/31/2019 10:40 AM CDT Pain Assessment Entered On: 04/01/2019 3:54 EDT Performed On: 04/01/2019 3:07 EDT by Sonny Jeong RN Intervention Information: oxyCODONE Performed by Sonny Jeong RN on 04/01/2019 02:07:00 EDT oxyCODONE,10mg Oral,Pain (Moderate 4-6) Pain Assessment Pain Assessment : Follow-up assessment Pain Scale Goal : 4 Pain Intervention, Drug : Medicated Pain Improved by Intervention : Yes Sonny Jeong RN - 04/01/2019 3:54 EDT documented in this encounter Plan of Treatment Not on file documented as of this encounter Visit Diagnoses Not on filedocumented in this encounter
--- OUTSIDE RECORDS SUMMARY | 2025-06-15 10:00 | XMS_ITS | Encounter Summary ---
Author Organization [employer] ([place], [place], [place], [place], [place]) Address [address] [place] [address] Care Team Providers Care Hair Or Beauty Salon Manager Name Role Phone Unavailable Primary Care Provider Unavailabl e Encounter Details Date Type Department Care Team (Late st Contact Info) Description 04/03/2019 Transcribed Document [facility] [place] [facility] [place] [address] ProviderSb MD [facility] [place], [place] [id number] Social History Tobacco Use Types Packs/Day Years Used Date Smoking Tobacco: Never Assessed Comments Unknown Sex and Gender Information Value Date Recorded Sex Assigned at Not on file Legal Sex Female 1:50 PM CDT Gender Identity Not on file Sexual Orientation Not on file documented as of this encounter Miscellaneous Notes * Cerner Conversion Note - Historical ProviderMD - 04/03/2019 2:00 AM CDT Typesetting Supervisor Details Entered On: 04/03/2019 6:44 EDT Performed On: 04/03/2019 2:00 EDT by ISAIAS BOLTON, Real Estate Transaction Coordinator-Nursing Order Details Transport Mode Order Detail : Wheelchair Isolation Precautions Order Detail : Standard Precautions Order Detail : N/A IV Order Detail : 1 Oxygen Order Detail : 0 Nurse Collect Order Detail : 0 Lift/Transfer : Moderate assist Central Line Order Detail : No Room Service : Not Appropriate Arterial Line : No ISAIAS BOLTON, Real Estate Transaction Coordinator-Nursing - 04/03/2019 6:44 EDT documented in this encounter Plan of Treatment Not on file documented as of this encounter Visit Diagnoses Not on filedocumented in this encounter
--- OUTSIDE RECORDS SUMMARY | 2025-06-15 10:00 | XMS_ITS | Encounter Summary ---
Author Organization [employer] ([place], [place], [place], [place], [place]) Address [address] [place] [address] Care Team Providers Care Fleet Assistant Name Role Phone Unavailable Primary Care Provider Unavailabl e Encounter Details Date Type Department Care Team (Late st Contact Info) Description 04/03/2019 Transcribed Document [facility] [place] [facility] [place] [address] ProviderSb MD [address] [place] [address] Social History Tobacco Use Types Packs/Day Years Used Date Smoking Tobacco: Never Assessed Comments Unknown Sex and Gender Information Value Date Recorded Sex Assigned at Not on file Legal Sex Female 1:50 PM CDT Gender Identity Not on file Sexual Orientation Not on file documented as of this encounter Miscellaneous Notes * Cerner Conversion Note - Sb Man MD - 04/03/2019 3:13 PM CDT [place] [id number] ARIEL SHARONDA S :1945 Visit Time:03/31/2019 Your Visit Summary Your [...] ? Using the bathroom. ? Using household camp head counselor or poisonous chemicals. ? Touching or taking [...] 07/05/2009 Document Revised: 12/28/2016 Document Reviewed: 12/18/2014 [employer] Patient Education ?? 2018 [employer] Fall Prevention in the Home, Adult [...] Keep items that you use often in ukhk-yy-mvslp places. Lower the shelves around your home [...] the way. ??? Do not use floor khmer or wax that makes floors slippery. If [...] Control and Prevention, [place]: https://cdc.gov ??? National [place] on Aging: https://br4lxmy.joe.nih.gov Contact a doctor if: ??? You are [...] 05/19/2010 Document Revised: 03/07/2018 Document Reviewed: 03/07/2018 [employer] Patient Education ?? 2019 [employer] What to expect after the Procedure: [...] Barley. Bulgur wheat. Millet. Bran muffins. Popcorn. [place] wafer crackers. Vegetables Sweet potatoes. Spinach. Kale. Artichokes. Cabbage. Broccoli. Green peas. Carrots. Squash. Fruits Berries. Pears. Apples. Oranges. Avocados. Prunes and raisins. Dried figs. Meats and Other Protein Sources [place], kidney, mariscal, and soy beans. Split peas. [...] ??? Soy or vegetable davey ??? 1 daevy has 11 g of protein. ??? Wiggins seeds ??? 1 oz has 5.5 g [...] floor. ??? Place frequently used items in mrmg-is-sggja places ??? Keep electrical cables out of [...] ??? Using the bathroom. ??? Using household camp head counselor or toxic chemicals. ??? Touching or taking [...] may report side effects to FDA at 2-554-VYE-9265. What other drugs will affect acetaminophen and [...] affect acetaminophen and oxycodone, including prescription and fkgd-dss-yrybhme medicines, vitamins, and herbal products. Not all [...] to ensure that the information provided by [employer] is accurate, up-to-date, and complete, but no guarantee is made to that effect. Drug information contained herein may be time sensitive. [employer] information has been compiled for use by healthcare practitioners and consumers in the [place] and therefore [employer] does not warrant that uses outside of the [place] are appropriate, unless specifically indicated otherwise. [employer] drug information does not endorse drugs, diagnose patients or recommend therapy. [employer] drug information is an informational resource designed [...] effective or appropriate for any given patient. [employer] does not assume any responsibility for any aspect of healthcare administered with the aid of information [employer] provides. The information contained herein is not intended to cover all possible uses, directions, precautions, warnings, drug interactions, allergic reactions, or adverse effects. If you have questions about the drugs you are taking, check with your doctor, nurse or pharmacist. Copyright 8982-6858 [employer] Version: 18.02. Revision Date: 07/03/2018. Emergency Awareness [...] Assistance with quitting is available by contacting 5-023-QHTMNOW. This is a free resource providing counseling, [...] range between ( 1.0 and 7.0 ) [place] #: 0.90 K/uL -- Normal range between ( 0.24 and 0.82 ) [place] #: 0.22 K/uL -- Normal range between ( 0.04 and 0.54 ) [place] %: 8.6 % -- Normal range between [...] ) Urine Bilirubin Dipstick: Negative Urine Specific [place]: 1.014 -- Normal range between ( 1.005 and 1.030 ) Urine Type.: U [facility] General Chemistry 04/01/19 03:11:00 Creatinine Level: 0.82 [...] was given the opportunity to ask questions. Patient/Multimedia Project Manager Name: Patient/Multimedia Project Manager Signature: Relationship to Patient: Clinician/Hospital Multimedia Project Manager Signature: Date: documented in this encounter Plan of Treatment Not on file documented as of this encounter Visit Diagnoses Not on filedocumented in this encounter
--- OUTSIDE RECORDS SUMMARY | 2025-06-15 10:00 | XMS_ITS | Encounter Summary ---
Author Organization [employer] ([place], [place], [place], [place], [place]) Address [address] [place] [address] Care Team Providers Care Farm Contractor Name Role Phone Unavailable Primary Care Provider Unavailabl e Encounter Details Date Type Department Care Team (Late st Contact Info) Description 04/03/2019 Transcribed Document [facility] [place] Family [place] [address] [place] [address] ProviderSb MD [facility] [place] [address] Social History Tobacco Use Types Packs/Day Years Used Date Smoking Tobacco: Never Assessed Comments Unknown Sex and Gender Information Value Date Recorded Sex Assigned at Not on file Legal Sex Female 1:50 PM CDT Gender Identity Not on file Sexual Orientation Not on file documented as of this encounter Miscellaneous Notes * Cerner Conversion Note - Sb ProviderMD - 04/03/2019 1:52 PM CDT [place] Entered On: 04/03/2019 13:53 EDT Performed On: 04/03/2019 13:52 EDT by NATALIE NICHOLS MD-INT [place] Indication of use for OOCS : Acute Illness OOCS Misuse Suspected : Other Was [place] queried : Other Patient Advised to seek OOCS Treatment : Other Treatment to Include Limited Supply of OOCS : Other [place] Result : Other [place] Other Notes : as per Dr. Quiroga office records. Patient cancelled on OOCS : Other [place] : . NATALIE NICHOLS MD-INT - 04/03/2019 13:52 EDT documented in this encounter Plan of Treatment Not on file documented as of this encounter Visit Diagnoses Not on filedocumented in this encounter
--- OUTSIDE RECORDS SUMMARY | 2025-06-15 10:00 | XMS_ITS | Encounter Summary ---
Author Organization [employer] ([place], [place], [place], [place], [place]) Address [address] [place] [address] Care Team Providers Care Nurse Aide Name Role Phone Unavailable Primary Care Provider Unavailabl e Encounter Details Date Type Department Care Team (Late st Contact Info) Description 04/03/2019 Transcribed Document [facility] [place] [facility] [place] [address] ProviderSb MD [address] [place] [address] Social History Tobacco Use Types Packs/Day Years Used Date Smoking Tobacco: Never Assessed Comments Unknown Sex and Gender Information Value Date Recorded Sex Assigned at Not on file Legal Sex Female 1:50 PM CDT Gender Identity Not on file Sexual Orientation Not on file documented as of this encounter Miscellaneous Notes * Cerner Conversion Note - Sb ProviderMD - 04/03/2019 12:00 PM CDT Pain Assessment Entered On: 04/03/2019 18:14 EDT Performed On: 04/03/2019 14:23 EDT by Giuliana Munroe RN Intervention Information: acetaminophen Performed by Giuliana Munroe RN on 04/03/2019 13:23:00 EDT acetaminophen,500mg Oral Pain Assessment Pain Assessment : Follow-up assessment Pain Scale Goal : 4 Pain Scale Used : 0-10 Scale Giuliana Munroe RN - 04/03/2019 18:13 EDT Pain Scale Intensity : 3 Giuliana Munroe RN - 04/03/2019 18:13 EDT Image 4 - Images currently included in the form version of this document have not been included in the text rendition version of the form. documented in this encounter Plan of Treatment Not on file documented as of this encounter Visit Diagnoses Not on filedocumented in this encounter
--- OUTSIDE RECORDS SUMMARY | 2025-06-15 10:00 | XMS_ITS | Encounter Summary ---
Author Organization [employer] ([place], [place], [place], [place], [place]) Address [address] [place] [address] Care Team Providers Care Bone Puller Name Role Phone Unavailable Primary Care Provider Unavailabl e Encounter Details Date Type Department Care Team (Late st Contact Info) Description 04/03/2019 Transcribed Document [facility] [place] Family Medicine [address] [place] [address] ProviderSb MD [address] [place] [address] Social History Tobacco Use Types Packs/Day Years Used Date Smoking Tobacco: Never Assessed Comments Unknown Sex and Gender Information Value Date Recorded Sex Assigned at Not on file Legal Sex Female 1:50 PM CDT Gender Identity Not on file Sexual Orientation Not on file documented as of this encounter Miscellaneous Notes * Cerner Conversion Note - Historical ProviderMD - 04/03/2019 7:36 AM CDT Event Note Entered On: 04/03/2019 7:53 EDT Performed On: 04/03/2019 7:36 EDT by ISAIAS BOLTON, Language Assistant-Nursing Event Note Event Date/Time : 04/03/2019 7:00 EDT Event Location : Assigned room Event Details : Nursing assessment additional narrative Description of Event : Informed Dr. Gamez that pt's refusal for CTA and that patient's HR has been in the 120's. No new orders received. ISAIAS BOLTON, Language Assistant-Nursing - 04/03/2019 7:36 EDT documented in this encounter Plan of Treatment Not on file documented as of this encounter Visit Diagnoses Not on filedocumented in this encounter
--- OUTSIDE RECORDS SUMMARY | 2025-06-15 10:00 | XMS_ITS | Encounter Summary ---
Author Organization [facility] ([place], [place], [place], [place], [place]) Address [address] [place] [address] Care Team Providers Care Marine Electrician Name Role Phone Unavailable Primary Care Provider Lisset e Encounter Details Date Type Department Care Team (Late st Contact Info) Description 03/31/2019 Transcribed Document [facility] [place] [address] ProviderSb MD [address] [place] [id number] Social History Tobacco Use Types Packs/Day [...] ProviderMD - 03/31/2019 8:18 AM CDT [facility] OR IntraOp Summary Primary Physician: YAMILETH OMER MD-ORT Finalized Date/Time: 03/31/19 10:56:54 Pt. Name: ARIEL SAMARAASHVIN AlvaradoO.B./Sex: 1945 Female Med Rec #: [id number] Physician: YAMILETH OMER MD-ORT Financial #: [id number] Pt. Type: I Room/Bed: [facility]/ Admit/Disch: 03/31/19 04:43:00 - Institution: [facility] Case Attendance Entry 1 Entry 2 Entry 3 Case Attendee YAMILETH OMER MD-ORT Davis, Aleitha E, JEWELL HART Role Performed Surgeon/Proceduralist, Senior Vice President & General Counsel, First Scrub, Second First Time In 03/31/19 07:37:00 03/31/19 07:37:00 03/31/19 07:37:00 Time Out 03/31/19 10:56:00 03/31/19 10:56:00 03/31/19 10:13:00 Procedure Hip Total Anterior Hip Total Anterior Hip Total Anterior Approach Approach Approach Other Attendee Superficial Wound Closed By: Nael Modified By: Liliana Royal RN Davis, Aleitha E, RN Davis, Aleitha E, RN 03/31/19 10:56:51 03/31/19 10:56:51 03/31/19 10:56:51 Entry 4 Entry 5 Entry 6 Case Attendee Topher Dukes, Diesel Mechanic Construction MIYA HERNANDEZ FA REYNOLDS, SHIRLEY Role Performed Scrub, Powder Nipper, First Web Applications Architect Time In 03/31/19 07:37:00 03/31/19 07:37:00 03/31/19 07:37:00 Time Out 03/31/19 10:56:00 03/31/19 10:56:00 03/31/19 10:56:00 Procedure Hip Total Anterior Hip Total Anterior Hip Total Anterior Approach Approach Approach Other Attendee Superficial Wound Closed By: Last Modified By: Liliana Royal RN Davis, Aleitha E, RN Davis, Aleitha E, RN 03/31/19 10:56:51 03/31/19 10:56:51 03/31/19 10:56:51 Entry 7 Entry 8 Entry 9 Case Attendee GEOVANNY CRUZ CRNA OTHER, ATTENDEE #1 OTHER, ATTENDEE #2 Role Performed DIRECTOR ORACLE DATABASE/Nurse Medical Billing Coordinator Landscape Maintenance Internship, Ancillary Vendor Time In 03/31/19 07:37:00 03/31/19 07:37:00 03/31/19 07:37:00 Time Out 03/31/19 10:56:00 03/31/19 10:56:00 03/31/19 10:56:00 Procedure Hip Total Anterior Hip Total Anterior Hip Total Anterior Approach Approach Approach Other Attendee URVASHI WILSON Superficial Wound Closed By: Nael Modified By: Liliana Royal RN Davis, Aleitha E, RN Davis, Aleitha E, RN 03/31/19 10:56:51 03/31/19 10:56:51 03/31/19 10:56:51 Entry 10 Case Attendee KAIN SLAUGHTER, CARMITA Role Performed Senior Vice President & General Counsel, Second Time In 03/31/19 09:15:00 Time Out 03/31/19 09:30:00 Procedure Hip Total Anterior Approach Other Attendee Superficial Wound Closed By: Last Modified By: Liliana Royal RN 03/31/19 10:56:51 [facility] Case Attendance Audit 03/31/19 10:56:51 Predatory Animal Hunter: ALEITHADAVIS Modifier: ALEITHADAVIS 1 <+> Time Out 1 <*> Procedure Hip Total Anterior Approach 2 <+> Time Out 2 <*> Procedure Hip Total Anterior Approach 3 <*> Procedure Hip Total Anterior Approach 4 <+> Time Out 4 <*> Procedure Hip Total Anterior Approach 5 <+> Time Out 5 <*> Procedure Hip Total Anterior Approach 6 <+> Time Out 6 <*> Procedure Hip Total Anterior Approach 7 <+> Time Out 7 <*> Procedure Hip Total Anterior Approach 8 <+> Time Out 8 <*> Procedure Hip Total Anterior Approach 9 <+> Time Out 9 <*> Procedure Hip Total Anterior Approach 10 <*> Procedure Hip Total Anterior Approach 03/31/19 10:13:35 Predatory Animal Hunter: ALEITHADAVIS Modifier: ALEITHADAVIS 3 <+> Time Out 3 <*> Procedure Hip Total Anterior Approach 03/31/19 10:00:12 Predatory Animal Hunter: ALEITHADAVIS Modifier: ALEITHADAVIS 10 <+> Time Out 10 <*> Procedure Hip Total Anterior Approach 03/31/19 09:17:35 Predatory Animal Hunter: ALEITHADAVIS Modifier: ALEITHADAVIS <+> 10 Case Attendee <+> 10 Role Performed <+> 10 Time In <+> 10 Procedure 03/31/19 08:26:59 Predatory Animal Hunter: ALEITHADAVIS Modifier: ALEITHADAVIS <+> 1 Procedure 2 <+> Time In 2 <*> Procedure Hip Total Anterior Approach 3 <+> Time In 3 <*> Procedure Hip Total Anterior Approach 4 <+> Time In 4 <*> Procedure Hip Total Anterior Approach 5 <+> Time In 5 <*> Procedure Hip Total Anterior Approach 6 <+> Time In 6 <*> Procedure Hip Total Anterior Approach 7 <+> Time In 7 <*> Procedure Hip Total Anterior Approach 8 <+> Time In 8 <*> Procedure Hip Total Anterior Approach 9 <+> Time In 9 <*> Procedure Hip Total Anterior Approach 03/31/19 08:22:52 Predatory Animal Hunter: ALEITHADAVIS Modifier: ALEITHADAVIS <+> 2 Case Attendee <+> 2 Role Performed <+> 2 Procedure <+> 3 Case Attendee <+> 3 Role Performed <+> 3 Procedure <+> 4 Case Attendee <+> 4 Role Performed <+> 4 Procedure <+> 5 Case Attendee <+> 5 Role Performed <+> 5 Procedure <+> 6 Case Attendee <+> 6 Role Performed <+> 6 Procedure <+> 7 Case Attendee <+> 7 Role Performed <+> 7 Procedure <+> 8 Case Attendee <+> 8 Role Performed <+> 8 Procedure <+> 8 Other Attendee <+> 9 Case Attendee <+> 9 Role Performed <+> 9 Procedure <+> 9 Other Attendee [facility] IntraOp Case Times Entry 1 Patient In Room Time 03/31/19 07:37:00 Out Room Time 03/31/19 10:56:00 Anesthesia Start Time 03/31/19 07:37:00 Stop Time 03/31/19 10:56:00 Anesthesia Ready 03/31/19 07:37:00 Surgery / Procedure Times Start Time 03/31/19 08:18:00 Stop Time 03/31/19 10:49:00 Last Modified By: Liliana Royal RN 03/31/19 10:56:50 [facility] IntraOp Case Times Audit 03/31/19 10:56:50 Predatory Animal Hunter: ALEITHADAVIS Modifier: ALEITHADAVIS <+> 1 Out Room Time <+> 1 Stop Time 03/31/19 10:49:20 Predatory Animal Hunter: ALEITHADAVIS Modifier: ALEITHADAVIS <+> 1 Stop Time 03/31/19 08:21:21 Predatory Animal Hunter: ALEITHADAVIS Modifier: ALEITHADAVIS <+> 1 Start Time [facility] IntraOp Cautery Entry 1 ESU Identification Cautery Type Monopolar ESU ID Number [id number] ID Type Hospital Number Cautery Settings Cut Setting 50 Coag Setting 50 ESU Grounding Pad Ground Pad Type Adult Grounding Pad Site Right thigh Grounding Pad Liliana Royal RN Applied By Grounding Pad Site Intact Skin Condition Before Cautery Grounding Pad Site Unchanged Skin Condition After Cautery Last Modified By: Liliana Royal RN 03/31/19 08:24:04 [facility] IntraOp Communication Entry 1 Communication To Family/Significant other Comment START OF PROCEDURE Communication By Liliana Royal RN Date and Time 03/31/19 08:24:00 Last Modified By: Liliana Royal RN 03/31/19 08:24:15 [facility] IntraOp Counts Verification Entry 1 Entry 2 Procedure Hip Total Anterior Hip Total Anterior Approach Approach Count Info Count Type Sponge, Sharps, Sponge, Sharps, Miscellaneous Miscellaneous Counts Verification Baseline/pre-procedure At time of permanent Sequence relief Count Results Correct, surgeon Correct, surgeon notified notified If Incorrect or Waived complete the Counts Action Taken form: If Intentional Retention, complete the Intential Retention form: Counts Performed By Count Performed By Topher Dukes Diesel Mechanic Construction Topher Dukes Scrub Tech (Scrub) Count Performed By Liliana Royal RN Davis, Aleitha E, RN (RN) Last Modified By: Liliana Royal RN Davis, Aleitha E, RN 03/31/19 08:24:27 03/31/19 10:13:45 [facility] IntraOp Counts Verification Audit 03/31/19 10:13:45 Predatory Animal Hunter: ALEITHADAVIS Modifier: ALEITHADAVIS <+> 2 Procedure <+> 2 Count Type <+> 2 Counts Verification Sequence <+> 2 Count Results <+> 2 Count Performed By (Scrub) <+> 2 Count Performed By (RN) [facility] IntraOp Counts Final Entry 1 Procedure Hip Total Anterior Approach Final Count Info Count Type Sponge, Sharps, Miscellaneous Counts Verification Skin Closure/end of Sequence procedure Count Results Correct, surgeon notified Counts Performed By Count Performed By Topher Dukes Scrub Tech (Scrub) Count Performed By Liliana Royal, RN (RN) Last Modified By: Liliana Royal RN 03/31/19 10:13:50 [facility] IntraOp Counts Final Audit 03/31/19 10:13:50 Predatory Animal Hunter: ALEITHADAVIS Modifier: ALEITHADAVIS 1 <*> Procedure Hip Total Anterior Approach 1 <+> Count Performed By (Scrub) [facility] IntraOp Cultures and Spec Summary Entry 1 Cultrures and Specimens Specimen Ordered: Yes Test(s) Routine/Path-Lab Requested/Final Disposition Last Modified By: Liliana Royal RN 03/31/19 08:23:36 [facility] IntraOp Delays Entry 1 Delay Reason Other Duration 7 Minute(s) Comment PATIENT REQUESTED GERICARE AIDE TEACHER WHEN OR NURSE ENTERED BAY Last Modified By: Liliana Royal RN 03/31/19 08:23:32 [facility] IntraOp Departure from OR Entry 1 Integumentary Assessment Integumentary WDL Assessment WDL Transfer/Handoff Transfer to PACU Phase I Handoff Method Bedside/Face to face Post-op Transport Bed (including Via specialty) Patient Transport GEOVANNY CRUZ CRNA, Accompanied by Liliana Royal RN Last Modified By: Liliana Royal RN 03/31/19 08:23:33 [facility] IntraOp Drains and Tubes Entry 1 Device Type Hemovac Size MEDIUM Drain/Tube Activity Inserted Device Location LEFT HIP Last Modified By: Liliana Royal RN 03/31/19 08:24:44 [facility] IntraOp Dressing and Packing Entry 1 Type Dressing Location LEFT HIP Wound Dressing Item Occlusive dressing, Skin Closure Glue Applied By MIYA HERNANDEZ FA Other Comments COVADERM APPLIED TO DRAIN SITE; PRINEO DERMABOND Last Modified By: Liliana Royal RN 03/31/19 08:25:31 [facility] IntraOp Fire Risk Assessment Entry 1 Fire Info Surgical Site or 0- No Incision Above the Xyphoid Open O2 Source 0- No (Mask or Cannula) Available Ignition 1- Yes (ESU, Laser, Light Source) Fire Risk 1 Assessment Score Fire Score Fire Risk Yes Assessment Complete Fire Risk Liliana Royal RN Assessment Verified By Fire Risk 03/31/19 08:24:00 Assessment Verified Date/Time Fire Risk Standard Fire Yes Safety Precautions Followed Last Modified By: Liliana Royal RN 03/31/19 08:24:48 [facility] IntraOp General Case Brainer 1 Case Information OR OR 02 S[facility] Case Level 1 Room Verified Yes Wound Class I - Clean Specialty SN Orthopedic Anesthesia Type General ASA Class 3 Diagnosis Preop Diagnosis LEFT HIP DJD Postop Diagnosis DICTATED BY Last Modified By: Liliana Royal RN 03/31/19 08:25:01 [facility] IntraOp Implant Log Entry 1 Entry 2 Entry 3 Type Implant (Synthetic) Implant (Synthetic) Implant (Synthetic) Implant Log Implant Type Hardware Hardware Hardware Tissue Implant Type Implant SHELL ACET 3H SZ C G7 LINER NEUTRAL E1 SZ C STEM FEM POR Identification OSSEO [id number] [id number] Description Implant Quantity 1 1 1 Implant Site LEFT HIP LEFT HIP LEFT HIP Implant Identification Model Number Implant Identification Serial Number Implant [id number] Identification Lot Number Implant Biomet Biomet Biomet Identification Medical Record Technician Name: Implant [id number] Identification Catalog Number Implant Size Implant Has an Yes Yes Yes Expiration Date Implant Expiration 11/07/28 06/25/23 08/05/28 Date Wasted Radioactive Material Time Implanted Tissue Implant Continue for Tissue Implant Documentation Tissue Identification Number Graft Prep Per Medical Record Technician Instructions: Tissue Preparation Method: Reconstitution Solution: Reconstitution Solution Lot Number Reconstitution Solution Expiration Date: Thawing Solution Thawing Solution Lot Number Thawing Solution Expiration Date Preparation Materials, Other Preparation Materials, Other Lot Number Preparation Materials, Other Expiration Date Tissue Prepared/Processed By Medical Record Technician Paperwork Completed Implant Type Comment Last Modified By: Liliana Royal RN Davis, Aleitha E, RN Davis, Aleitha E, RN 03/31/19 09:15:28 03/31/19 09:18:11 03/31/19 10:09:08 Entry 4 Entry 5 Type Implant (Synthetic) Implant (Synthetic) Implant Log Implant Type Hardware Hardware Tissue Implant Type Implant ADAPTER TAPER BIOLOX HEAD CERAMIC BIOLX 32MM Identification OPTION -[id number] Description Implant Quantity 1 1 Implant Site LEFT HIP left hip Implant Identification Model Number Implant Identification Serial Number Implant [id number] Identification Lot Number Implant Biomet Biomet Identification Medical Record Technician Name: Implant [id number] Identification Catalog Number Implant Size Implant Has an Yes Yes Expiration Date Implant Expiration 07/05/28 11/07/28 Date Wasted Radioactive Material Time Implanted Tissue Implant Continue for Tissue Implant Documentation Tissue Identification Number Graft Prep Per Medical Record Technician Instructions: Tissue Preparation Method: Reconstitution Solution: Reconstitution Solution Lot Number Reconstitution Solution Expiration Date: Thawing Solution Thawing Solution Lot Number Thawing Solution Expiration Date Preparation Materials, Other Preparation Materials, Other Lot Number Preparation Materials, Other Expiration Date Tissue Prepared/Processed By Medical Record Technician Paperwork Completed Implant Type Comment Last Modified By: Liliana Royal RN Davis, Aleitha E, RN 03/31/19 10:09:08 03/31/19 10:09:45 [facility] IntraOp Implant Log Audit 03/31/19 10:09:45 Predatory Animal Hunter: JIM Modifier: ALEITHADAVIS <+> 5 Implant Identification Description <+> 5 Implant Identification Lot Number <+> 5 Implant Identification Medical Record Technician Name: <+> 5 Implant Expiration Date <+> 5 Implant Site <+> 5 Implant Quantity <+> 5 Implant Identification Catalog Number <+> 5 Implant Type <+> 5 Implant Has an Expiration Date <+> 5 Type 03/31/19 10:09:08 Predatory Animal Hunter: ALEITHADAVIS Modifier: ALEITHADAVIS <+> 3 Implant Identification Description <+> 3 Implant Identification Lot Number <+> 3 Implant Identification Medical Record Technician Name: <+> 3 Implant Expiration Date <+> 3 Implant Identification Catalog Number <+> 4 Implant Identification Description <+> 4 Implant Identification Lot Number <+> 4 Implant Identification Medical Record Technician Name: <+> 4 Implant Expiration Date <+> 4 Implant Identification Catalog Number 03/31/19 09:18:11 Predatory Animal Hunter: ALEITHADAVIS Modifier: ALEITHADAVIS <+> 2 Implant Identification Description <+> 2 Implant Identification Lot Number <+> 2 Implant Identification Medical Record Technician Name: <+> 2 Implant Expiration Date <+> 2 Implant Identification Catalog Number 03/31/19 09:15:28 Predatory Animal Hunter: ALEITHADAVIS Modifier: ALEITHADAVIS <+> 1 Implant Identification Description <+> 1 Implant Identification Lot Number <+> 1 Implant Identification Medical Record Technician Name: <+> 1 Implant Expiration Date <+> 1 Implant Identification Catalog Number [facility] IntraOp Intraoperative Assessment Entry 1 Handoff Method Bedside/Face to face Valid History / Yes Physical in Chart Preoperative Yes Checklist Reviewed/Evaluated Allergies Reviewed Yes Patient is Latex No Sensitive Isolation Not applicable Precautions Noted Level of WDL Consciousness (WDL = Alert, Oriented to Person, Place, and Time) Skin Assessment Yes Verified Present Upon IVs Arrival to OR Last Modified By: Liliana Royal RN 03/31/19 08:25:23 [facility]Op Intraoperative Equipment Entry 1 Type Equipment Equipment Equipment Cr Suction System ID Number [id number] Intraop Monitoring Electrocardiogram Three lead placement (ECG) Electrode Placement Antiembolic Devices Antiembolic Devices Sequential compression device, knee high Antiembolic Device Right Location Antiembolic Device [id number] ID Number Scopes Photo/Video Documentation Last Modified By: Liliana Royal RN 03/31/19 08:25:52 [facility] IntraOp Medication Admin Entry 1 Entry 2 Medication/Irrigant heparin 1000units/ml PB irrigation 1000ml 10ml - [id number] solution - [id number] Combo Med List Time Administered Route of CELLSAVER IRRIGANT Administration Dose Dose 61543 1000 Unit of Measure units ml Volume 10ML 1000 Administered By Procedure Irrigation Irrigant Volume In Irrigant Volume Out Last Modified By: Liliana Royal RN Davis, Aleitha E, RN 03/31/19 08:26:01 03/31/19 08:26:01 [facility] IntraOp Patient Positioning Entry 1 Procedure Hip Total Anterior Approach Body Position Fractured bed position Left Arm Position Secured across chest Right Arm Position Secured on padded arm board Left Leg Position Traction Right Leg Position Traction Feet Uncrossed Yes Pressure Points Yes Checked Positioning Devices Arm Board, Pillows, Traction Devices, Stirrups/Leg Alexander, Boot Positioning Device HANA TABLE Comments Device Position ARM ON OPERATIVE SIDE SECURED ACROSS CHEST WITH LARGE JAKE WRAP. PERINEAL POST PLACED BY SURGEON. Positioned By Liliana Royal RN, GEOVANNY CRUZ CRNA, BALTHROP, JOHN E, MD-ORT, MARY, MIYA, FA Position Verified Positioning Yes Verified by Anesthesia Positioning Yes Verified by Surgeon Last Modified By: Liliana Royal RN 03/31/19 08:26:27 [facility] IntraOp Sign In Entry 1 Patient, Site, Yes Procedure Identified Surgical Consent Yes Confirmed Relevant Surgical Yes Documents Available Surgical Site Yes Marked by person performing procedure Anesthesia Machine Yes Check Completed Medication Checks Yes Completed Allergies Yes Airway Difficult No Airway/Aspiration Risk Difficult Yes Airway/Aspiration Intervention Equipment Available Blood Loss Risk Yes Blood Loss Yes Intervention Equipment Prepared and Ready Blood Identifiers Not applicable Verified Per Policy Hypothermia Risk Yes Warming Measures Yes Taken Last Modified By: Liliana Royal RN 03/31/19 08:26:42 [facility] Intra Op Sign Out Entry 1 RN Confirmation Surgical Yes Procedure(s) Identified Instrument, Sponge Yes and Sharps Counts Correct/Documented Equipment Problems N/A Documented Specimen Labeled Yes Correctly Urinary Catheter N/A Documented in IView [place] Patient Yes Recovery Concerns Reviewed with Anesthesia Provider, Surgeon and RN [place] Patient Yes Management Concerns Reviewed with Anesthesia Provider, Surgeon and RN Safety Checklist Yes Elements Complete? RN Sign Out Liliana Royal RN Signature RN Sign Out 03/31/19 10:49:00 Signature Date/Time Plan of Care Outcome - Fire Risk OUTCOME STATEMENT: Goal met Patient is free from injury related to surgical fire Plan of Care Outcome - Pt Positioning OUTCOME STATEMENT: Goal met Absence of signs and symptoms of positioning injury. Plan of Care Outcome - Skin Prep OUTCOME STATEMENT: Goal met Intraoperative care is consistent with measures to prevent infection Plan of Care Outcome - Xray/Images OUTCOME STATEMENT: Goal met Absence of observable signs or symptoms of radiation injury Plan of Care Outcome - Counts OUTCOME STATEMENT: Goal met Absence of signs and symptoms of injury related to extraneous objects Last Modified By: Liliana Royal RN 03/31/19 10:49:25 [facility] Intra Op Sign Out Audit 03/31/19 10:49:25 Predatory Animal Hunter: CHRISTYADAVIS Modifier: ALEITHADAVIS <+> 1 RN Sign Out Signature Date/Time [facility] IntraOp Skin Prep Entry 1 Procedure Hip Total Anterior Approach Prescribed Yes Pre-Surgical Prep Completed Prep Area LEFT HIP Intraop Prep Integumentary WDL Assessment WDL Prep Agents Chloraprep Prep by Liliana Royal RN Hair Removal Methods No hair removal performed Last Modified By: Liliana Royal RN 03/31/19 08:26:54 [facility] IntraOp Surgical Procedures Entry 1 Procedure Hip Total Anterior Approach Additional LEFT TOTAL HIP DIRECT Procedure ANTERIOR Description Primary Procedure Yes Primary Surgeon YAMILETH OMER MD-ORT Start 03/31/19 08:18:00 Stop 03/31/19 10:49:00 Anesthesia Type General Specialty SN Orthopedic Wound Class I - Clean Last Modified By: Liliana Royal RN 03/31/19 10:49:21 [facility] IntraOp Surgical Procedures Audit 03/31/19 10:49:21 Predatory Animal Hunter: ALEERINADAVIS Modifier: ALEITHADAVIS <+> 1 Stop [facility] IntraOp Temp Regulation Devices Entry 1 Temp Regulation Temperature Forced Air Warming Regulation Device device Temperature 4767 Regulation Device Serial/Unit Number Temperature Upper body Regulation Site Temperature GEOVANNY CRUZ CRNA Regulation Device Applied by Last Modified By: Liliana Royal RN 03/31/19 08:27:06 [facility] IntraOp Time Out Entry 1 Procedure to be Hip Total Anterior Performed Approach Time Out Time Out Pause Time 03/31/19 08:17:00 All activity Yes suspended (unless life threatening emergency) Team Verbally Correct patient Confirms Information identity, Correct side and site are marked, Consent form is present and accurate, Agreement on the procedure to be done, Correct patient position, Relevant images/results properly labeled/appropriately displayed, Confirm antibiotics have been administered, Confirm the skin prep has dried, Confirm prosthesis/implant/devic e is present, Performed in location of procedure after prepped/draped Antibiotic Yes Prophylaxis Administered Or In Progress Within the Last 60 Minutes Beta Rickey Yes Administered Venous Yes Thromboembolism Prophylaxis Required Anticipated Critical Events Surgeon None expected Anesthesia Provider None expected Nursing Assures Sterility of instruments, Implant Availability Essential Imaging Yes Labeled and Displayed Last Modified By: Liliana Royal RN 03/31/19 08:27:28 [facility] IntraOp X-Ray and Images Entry 1 X-Ray/Imaging Type Fluoroscopy Fluoroscopy Type C-Arm Site OPERATIVE SITE Real Estate Professor Name KENIA ATKINS Protective Devices Yes Used Last Modified By: Liliana Royal RN 03/31/19 08:27:35 Case Comments <None> Finalized By: Liliana Royal RN Document Signatures Signed By: Liliana Royal RN 03/31/19 10:56 documented in this encounter Plan of Treatment Not on file documented as of this encounter Visit Diagnoses Not on filedocumented in this encounter
--- OUTSIDE RECORDS SUMMARY | 2025-06-15 10:00 | XMS_ITS | Patient Health Record ---
Author Organization [facility] Address [address] [facility] [address] [place] [address] Care Team Providers Care Music Composition Teacher Name Role Phone Khadar Quintana Primary Care Provider Migration, Provider Unavailable Unavailable Allergies Allergen (clinical drug ingredient) Drug/Non Drug Allergy documented on EMR Reaction Allergy Type Onset Date Status ALL TAPE- EXCEPT PAPER TAPE (uncoded) rash Allergy Active IV DYE (uncoded) rash Allergy Act etelvina cephalexin Cephalexin tachypnea, hives Drug Allergy Active chlorhexidine Hibiclens rash Drug Allergy Act etelvina Reason For Referral No Information Medications Medication [...] Duration: 90 days 07/11/2022 Active POTASSIUM CHLORIDE (OKI-GTHE-MOE M20) 20 MEQ TAKE 1 TABLET BY [...] Immunizations Vaccine Route Administration Date Status Comme [facility] Prevnar PCV-13 (Pneumococcal conjugate 13) IM Intramuscular [...] Risk Notes Problem Major depression, single episode (32834486) Major depressive disorder, single episode, unspecified (F32.9) Active confirmed Problem Anxiety disorder (354094216) Other mixed anxiety disorders (F41.3) Active confirmed Problem Bilateral tinnitus (0569406380631) Tinnitus, bilateral (H93.13) Active confirmed Problem Congenital malformation syndrome (345137866) Other specified congenital malformation syndromes, 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) Active confirmed Problem Paresthesia (finding) (71640175) Paresthesia of skin (R20.2) Active confirmed Problem Mixed anxiety and depressive disorder (523800509) Depression with anxiety (F41.8) Active confirmed Problem Anxiety (26554277) Anxiety (F41.9) Active confi rmed Problem Vitamin D deficiency (77994461) Vitamin D deficiency (E55.9) Active confirmed Problem Essential hypertension (16036976) Essential hypertension (I10) Active confirmed Problem Diverticulitis (98947288) Diverticulitis (K57.92) Active confirmed Problem Constipation by delayed colonic transit (73679312) Constipation by delayed colonic transit (K59.01) Active confirmed Problem Acute exacerbation of chronic obstructive airways disease (054089042) COPD exacerbation (J44.1) Active confirmed Problem Dysuria (78161854) Burning with urination (R30.0) Active confirmed Problem Obese class I (423184491732457) BMI 33.0-33.9,adult (Z68.33) Active confirmed Problem Chronic pain (01337667) Other chronic pain (G89.29) Active confirmed Problem Senile debility (54546017) Senile debility (R54) Active confirmed Problem Claudication (97375389) Claudication (I73.9) Active confirmed Problem Insomnia disorder related to another mental disorder (74805067) Psychophysiological insomnia (F51.04) Active confirmed Problem Inflammation of right sacroiliac joint (0119446891) Inflammation of right sacroiliac joint (M46.1) Active confirmed Problem Degeneration of lumbosacral intervertebral disc (43214791) DDD (degenerative disc disease), lumbosacral (M51.37) Active confirmed Problem Mood disorder (91647631) Mood disorder (F39) Active confirmed Problem Obstructive sleep apnea syndrome (85934467) LAURA (obstructive sleep apnea) (G47.33) Active confirmed Problem Environmental tobacco smoke exposure (431806079) Second hand smoke exposure (Z77.22) Active confirmed Problem Generalized anxiety disorder (95609123) MONI (generalized anxiety disorder) (F41.1) Active confirmed Problem Vitamin B12 deficiency (746459217) History of non anemic vitamin B12 deficiency (Z86.39) Active confirmed Problem Abnormal gait (74936566) Gait disturbance (R26.9) Active confirmed Problem Coronary arteriosclerosis (disorder) (58861815) CAD in atka artery (I25.10) Active confirmed Problem Recurrent falls (123892744) Falls frequently (R29.6) Active confirmed Problem Lymphedema (814171659) Lymphedema of left leg (I89.0) Active confirmed Problem Idiopathic sleep related non-obstructive alveolar hypoventilation (132506036) Nocturnal hypoxemia (G47.34) Active confirmed Problem Abdominal aortic aneurysm without rupture (disorder) (71822758) Abdominal aortic aneurysm (AAA) without rupture (I71.4) Active confirmed Problem Irritable bowel syndrome characterized by constipation (635857569) Irritable bowel syndrome with constipation (K58.1) Active confirmed Problem Inflammatory bowel disease (disorder) (81515098) IBD (inflammatory bowel disease) (K63.89) Active confirmed Problem Midline cystocele (344730549) Bladder prolapse, female, acquired (N81.10) Active confirmed Problem Mucopurulent chronic bronchitis (03980417) Chronic bronchitis with productive mucopurulent cough (J41.1) Active confirmed Problem Major depression, single episode (21465056) Chronic major depressive disorder (F32.9) Active confirmed Problem Impairment of balance (990463873) Balance problem (R26.89) Active confirmed Encounters Encounter Location Date Provider Diagnosis [facility] [address] [facility] [address] [place] [address] 11/08/2024 Provider Migration MONI (generalized anxiety disorder) F41.1 Assessments Encounter Date Diagnosis (ICD Code) Assessment Notes Treatment Notes Treatment Clinical Notes Section Notes 11/08/2024 MONI (generalized anxiety disorder) (ICD-10 - F41.1) Plan Of Treatment Pending Test Test Name Order Date X ray : Pelvis 07/16/2018 X ray : Rib Series, Left 04/08/2024 Physical Therapy 07/24/2018 Holter Monitor, 48 hour 08/02/2023 CT Scan : Abdomen and Pelvis, with and w ithout contrast 06/12/2018 CT Scan : Abdomen and Pelvis, with and w ithout contrast 06/11/2018 Ultrasound : Renal, bilateral 11/21/2021 Ultrasound : Aorta 11/20/2018 Physical Therapy : Lymphedema 12/01/2019 M-Complete Blood Count Auto Diff 020 M-Complete Blood Count Auto Diff 022 M-Urinalysis and Microscopic 09/14/2021 M-Comprehensive Metabolic Panel 09/14/19 22 M-Comprehensive Metabolic Panel 09/15/19 20 M-BNP 09/15/2019 M-Respiratory Virus Panel, PCR 2 M-Vitamin B12 12/14/2022 M-Vitamin D 25 Hydroxy 12/14/2022 M-Vitamin D 25 Hydroxy 01/21/2020 M-COVID PCR SINGLE RAPID 09/14/2021 CBC With Platelet And Differential 08/31 Insurance Providers Payer Name Payer Address Payer Phone Subscriber Number Group Number Insured Name Patient Relationship to Insured Coverage Start Date Coverage End Date [employer] [address] [address] [place] [phone] [id number] Samara Hayward Self - patient is the [...] 03/2019 Back surgery, Dr Catracho Arellano in [facility] 06/2003 Hospitalization History Reason Date(Month/Year) ICU- GI bleed- transfusions 09/2016 [facility] 03/2019 [facility]- Tachycardia 03/2018
--- OUTSIDE RECORDS SUMMARY | 2025-06-15 10:00 | XMS_ITS | Encounter Summary ---
Author Organization [facility] ([place], [place], [place], [place], [place]) Address [address] [place] [address] Care Team Providers Care Still Cleaner Tube Name Role Phone Unavailable Primary Care Provider Unavailabl e Encounter Details Date Type Department Care Team (Late st Contact Info) Description 03/31/2019 Transcribed Document [facility] [place] [address] ProviderSb MD [address] [place] [id number] Social History Tobacco Use Types Packs/Day Years Used Date Smoking Tobacco: Never Assessed Comments Unknown Sex and Gender Information Value Date Recorded Sex Assigned at Not on file Legal Sex Female 1:50 PM CDT Gender Identity Not on file Sexual Orientation Not on file documented as of this encounter Miscellaneous Notes * Cerner Conversion Note - Sb ProviderMD - 03/31/2019 2:05 PM CDT Treatment Intervention, PT Entered On: 04/01/2019 12:23 EDT Performed On: 04/01/2019 10:49 EDT by KALEY HILLMAN PTA General Information, PT Visit Type, PT : Treatment Note KALEY HILLMAN PTA - 04/01/2019 11:53 EDT Patient Orders : Order Date Order Ordering 03/31/2019 10:40 PT Evaluation and Treatment Ordered By: YAMILETH OMER MD-ORT 03/31/2019 14:05 PT Additional Treatment Ordered By: LUIS WALLACE, PT Active Diagnoses : 03/31/2019 12:00 Essential (primary) hypertension 03/31/2019 12:00 Nonrheumatic aortic (valve) stenosis 03/31/2019 12:00 Obesity, unspecified 03/31/2019 12:00 Other specified personal risk factors, not elsewhere classified 03/31/2019 12:00 Pain in left hip 03/31/2019 12:00 Panic disorder [episodic paroxysmal anxiety] 03/31/2019 12:00 Presence of left artificial hip joint 03/31/2019 12:00 Unilateral primary osteoarthritis, left hip KALEY HILLMAN PTA - 04/01/2019 12:28 EDT Therapy Diagnosis, PT : Aftercare of L mari anterior KALEY HILLMAN PTA - 04/01/2019 11:53 EDT Admission Date : 03/31/2019 04:43 KALEY HILLMAN PTA - 04/01/2019 12:28 EDT Assisted by, PT : assistant speech language pathologist (MASH TUB COOKER OPERATOR) KALEY HILLMAN PTA - 04/01/2019 11:53 EDT Personal Devices : Personal Devices No Devices Recorded Assistive Devices : Assistive Devices No Devices Recorded KALEY HILLMAN PTA - 04/01/2019 12:[address] : Fall prevention measures KALEY HILLMAN PTA - 04/01/2019 11:53 EDT General Status Patient Received Status : Up in chair KALEY HILLMAN PTA - 04/01/2019 11:53 EDT Treatment Start Time : 04/01/2019 10:49 EDT KALEY HILLMAN PTA - 04/01/2019 12:28 EDT Patient Left Status : Supine in bed, Bed alarm activated, All needs met and within reach RN/PCT Informed Comment : Nsg. agreeable to PT KALEY HILLMAN PTA - 04/01/2019 11:53 EDT Treatment End Time : 04/01/2019 11:29 EDT KALEY HILLMAN PTA - 04/01/2019 12:28 EDT Treatment Time : 40 Minute(s) KALEY HILLMAN PTA - 04/01/2019 11:53 EDT Edu Topics Physical Therapy Education Grid Bed Mobility Training : Needs further teaching Gait Training : Needs further teaching Therapeutic Exercises : Needs further teaching Transfer Training : Needs further teaching Use of Assistive Device : Needs further teaching KALEY HILLMAN PTA - 04/01/2019 11:53 EDT Teaching/Learning Assessment Barriers To Learning : Desire/Motivation Highest Level of Education : None Learning Style Preferences Patient : Demonstration, Printed materials, Verbal explanation KALEY HILLMAN PTA - 04/01/2019 11:53 EDT Plan of Care, PT PT Tx Plan/Goals Established w Patient : Yes KALEY HILLMAN PTA - 04/01/2019 11:53 EDT Half-Way Goals Other PT LTG Grid Goal #1 Goal #2 Goal #3 Goal #4 Other : Pt will be able to ascend and descend a single platform step with RWX, min assist x1 in order for her to safely gain entry into her home Pt will be able to ascend and descend 3 steps with bilateral rails and min assist x1 in order for her to safely gain entry into her bedroom and bathroom Pt will participate in therapeutic exercise training and be issued a written HEP in order to increase strength for improved gait and provide carryover into the home environment Pt will be able to ambulate 100 feet ot geater with RWX, min assist x1 in order for her to safely navigate her home Date to Meet : 04/04/2019 EDT 04/04/2019 EDT 04/04/2019 EDT 04/04/2019 EDT Goal Status : Initial goal Initial goal Initial goal Progressing, continue KALEY HILLMAN, [facility] - 04/01/2019 11:53 EDT KALEY HILLMAN, [facility] - 04/01/2019 11:53 EDT AKLEY HILLMAN, [facility] - 04/01/2019 11:53 EDT KALEY HILLMAN, [facility] - 04/01/2019 11:53 EDT Goal #5 Other : Pt will be able to transfer sit<>stand consistently with min assist x1 to ease caregiver burden Date to Meet : 04/04/2019 EDT Goal Status : Progressing, continue KALEY HILLMAN, [facility] - 04/01/2019 11:53 EDT Treatment Note Subjective Comment : Pt. agreeable to PTx pt. stated should i move my hurt leg first when walking right?? Patient's Response to Treatment : Good. No adverse effects to tx. Additional Objective Information : Pt. cga sit to stand with rwx with verbal cues to push with both arms from chair, then grasp rwx. Pt. amb 30' cga with rwx with verbal cues for correct sequence and cues to bear more weight on l LE and to decrease steplength on the left le. Pt followed by chair, then sat with verbal cues to reach back for the chair. Pt. sba stand to sit. Pt. did heel slides, long arc quads, ankle pumps x 15. Pt. then stood from chair with sba and verbal cues sit to stand with rwx. Pt. back to bed. Pt. needed min A to get L le into bed. Pt. then did quad sets, glut sets, ahort arc quads and hamstring sets x 15. Pt. had pillow placed under calf muscles for pressure relief. Pt. educated on not putting a pillow under affected hip. Assessment : Pt. is progressing with ltg's 3,4 Plan for Treatment : Continue t follow P.T. POC until all goals are met or pt. D/C KALEY HILLMAN, SHAHRZAD - 04/01/2019 11:53 EDT Pain Assessment Pain Scaled Used : 0-10 Pain scale Pain Score Pre-Intervention : 3 Pain Score During-Intervention : 3 Pain Consult, Notes : pt. already treated with pain meds by rn Pain Comment : Pain in L RAVIN KALEY HILLMAN, SHAHRZAD - 04/01/2019 11:53 EDT Image 1 - Images currently included in the form version of this document have not been included in the text rendition version of the form. [place] PT Charges PT Therap. Exercise 15 min : 1 Gait Training Each 15 Min : 2 KALEY HILLMAN, SHAHRZAD - 04/01/2019 11:53 EDT Electronically signed by Vinita Fountain Conversion Screen Printing Cloth Spreader Cerner at 11/26/2022 2:00 PM CDT documented in this encounter Plan of Treatment Not on file documented as of this encounter Visit Diagnoses Not on filedocumented in this encounter
--- OUTSIDE RECORDS SUMMARY | 2025-06-15 10:00 | XMS_ITS | Encounter Summary ---
Author Organization [employer] ([place], [place], [place], [place], [place]) Address [address] [place] [address] Care Team Providers Care Mattress Packer Name Role Phone Unavailable Primary Care Provider Unavailabl e Encounter Details Date Type Department Care Team (Late st Contact Info) Description 04/03/2019 Transcribed Document [facility] [place] [facility] [place] [address] ProviderSb MD [facility] [place] [address] Social History Tobacco Use Types Packs/Day Years Used Date Smoking Tobacco: Never Assessed Comments Unknown Sex and Gender Information Value Date Recorded Sex Assigned at Not on file Legal Sex Female 1:50 PM CDT Gender Identity Not on file Sexual Orientation Not on file documented as of this encounter Miscellaneous Notes * Cerner Conversion Note - Sb ProviderMD - 04/03/2019 3:06 PM CDT Patient Education Materials Follows: Hand Washing Germs like bacteria, viruses, and [...] ? Using the bathroom. ? Using household manager flight or poisonous chemicals. ? Touching or taking [...] 07/05/2009 Document Revised: 12/28/2016 Document Reviewed: 12/18/2014 [email or web address] Interactive Patient Education ? 2018 [employer] Fall Prevention in the Home, Adult [...] Keep items that you use often in fuwf-lq-gqumj places. Lower the shelves around your home [...] the way. ??? Do not use floor croatian or wax that makes floors slippery. If [...] Control and Prevention, STEADI: https://cdc.gov ??? National [place] on Aging: https://he4djmm.joe.nih.gov Contact a doctor if: ??? You are [...] 05/19/2010 Document Revised: 03/07/2018 Document Reviewed: 03/07/2018 [email or web address] Interactive Patient Education ? 2019 [employer] What to expect after the Procedure: After the procedure, it is common to have: ?? Pain and swelling. ?? A small amount of blood or clear fluid coming from your incision for up to 7 days ?? It is normal to have a moderate amount of bleeding from the site of the drain that was pulled on the morning after surgery. You can hold pressure on the area for 3-5 minutes and cover with a bandage as needed. Diet: ?? Resume usual diet ?? No alcoholic beverages while taking pain medication ?? Drink 8-10 glasses of water a day to prevent constipation from pain medication ?? Increase fiber to help prevent constipation. Straining can cause increased pressure and pain in your incision area ?? Increase protein to promote healing Driving: ?? Do not drive until your health care provider approves. Ask your health care provider when it is safe to drive if you have an immobilizer on your knee. ?? Do not drive or operate heavy machinery while taking prescription pain medicine. ?? Do not drive for 24 hours if you received a sedative. Activity: ?? Do not lift anything that is heavier than 10 lb (4.5 kg) until your health care provider approves. ?? No strenuous activity ?? Avoid high-impact activities, including running, jumping rope, and jumping jacks. ?? Avoid sitting for a long time without moving. Get up and move around at least every few hours. ?? Keep legs elevated while seated and place surgery leg on 2-3 pillows, this will decrease swelling ?? Continue using walker until cleared by physical therapy Bathing: ?? Do not take baths, swim, or use a hot tub for one month after surgery. ?? May shower on the third day after surgery by covering incision with Glad Brand Press and Seal saran wrap. After showering, dry off completely BEFORE removing saran wrap. ?? Use Press and Seal saran wrap to shower for one month after surgery ?? You must be seated to shower until you are no longer using the walker Other: ?? Use ice therapy for 20-30 minutes at a time and leave off for 20-30 minutes at a time. Always keep a towel or cloth between the ice pack and your skin ?? Continue to use Incentive Spirometer 10 times an hour while awake for one month to help prevent pneumonia Contact a health care provider if: ?? You have more redness, swelling, or pain around your incision. ?? You have more fluid or blood coming from your incision. ?? Your incision or drain site feels warm to the touch. ?? You have pus or a bad smell coming from your incision. ?? You have a fever. ?? Your incision breaks open after your health care provider removes your sutures, skin glue, or adhesive tape. ?? Your prosthesis feels loose. ?? You have knee pain that does not go away. DVT: Blood Clot Blood clots are a common risk after an orthopedic surgery Symptoms: ?? Swelling of your leg or arm, especially if one side is much worse. ?? Warmth and redness of your leg or arm, especially if one side is much worse. ?? Pain in your arm or leg. If the clot is in your leg, symptoms may be more noticeable or worse when you stand or walk. ?? A feeling of pins and needles, if the clot is in the arm. The symptoms of a DVT that has traveled to the lungs (pulmonary embolism, PE) usually start suddenly and include: ?? Shortness of breath while active or at rest. ?? Coughing or coughing up blood or blood-tinged mucus. ?? Chest pain that is often worse with deep breaths. ?? Rapid or irregular heartbeat. ?? Feeling light-headed or dizzy. ?? Fainting. ?? Feeling anxious. ?? Sweating. There may also be pain and swelling in a leg if that is where the blood clot started. How is this prevented? ?? Exercise regularly. For at least 30 minutes every day, engage in: -Activity that involves moving your arms and legs. -Activity that encourages good blood flow through your body by increasing your heart rate. ?? Exercise your arms and legs every hour during long-distance travel (over 4 hours). ?? Drink plenty of water and avoid drinking alcohol while traveling. ?? Avoid sitting or lying in bed for long periods of time without moving your legs. ?? Maintain a weight that is appropriate for your height. Ask your health care provider what weight is healthy for you. ?? If you are a woman who is over 35 years of age, avoid unnecessary use of medicines that contain estrogen. These include control pills. ?? Do not smoke, especially if you take estrogen medicines. If you need help quitting, ask your health care provider. ?? Wear compression stockings (if told by your health care provider) to help prevent blood clots from forming. High Fiber/High Protein Diet High fiber foods: To prevent constipation Grains Whole-grain breads. Multigrain cereal. Oats and oatmeal. Brown rice. Barley. Bulgur wheat. Millet. Bran muffins. Popcorn. [place] wafer crackers. Vegetables Sweet potatoes. Spinach. Kale. Artichokes. Cabbage. Broccoli. Green peas. Carrots. Squash. Fruits Berries. Pears. Apples. Oranges. Avocados. Prunes and raisins. Dried figs. Meats and Other Protein Sources [place], kidney, mariscal, and soy beans. Split peas. Lentils. Nuts and seeds. Dairy Fiber-fortified yogurt. Beverages Fiber-fortified soy milk. Fiber-fortified orange juice. Other Fiber bars. High-protein foods: To promote healing High-protein foods contain 4 grams (4 g) or more of protein per serving. They include: ?? Beef, ground sirloin (cooked) - 3 oz have 24 g of protein. ?? Cheese (hard) - 1 oz has 7 g of protein. ?? Chicken breast, boneless and skinless (cooked) - 3 oz have 13.4 g of protein. ?? Cottage cheese - 1/2 cup has 13.4 g of protein. ?? Egg - 1 egg has 6 g of protein. ?? Fish, filet (cooked) - 1 oz has 6-7 g of protein. ?? Garbanzo beans (canned or cooked) - 1/2 cup has 6-7 g of protein. ?? Kidney beans (canned or cooked) - 1/2 cup has 6-7 g of protein. ?? Reyes (cooked) - 3 oz has 24 g of protein. ?? Milk - 1 cup (8 oz) has 8 g of protein. ?? Nuts (peanuts, pistachios, almonds) - 1 oz has 6 g of protein. ?? Peanut butter - 1 oz has 7-8 g of protein. ?? Pork tenderloin (cooked) - 3 oz has 18.4 g of protein. ?? Pumpkin seeds - 1 oz has 8.5 g of protein. ?? Soybeans (roasted) - 1 oz has 8 g of protein. ?? Soybeans (cooked) - 1/2 cup has 11 g of protein. ?? Soy milk - 1 cup (8 oz) has 5-10 g of protein. ?? Soy or vegetable davey - 1 davey has 11 g of protein. ?? Yell seeds - 1 oz has 5.5 g of protein. ?? Tofu (firm) - 1/2 cup has 20 g of protein. ?? Tuna (canned in water) - 3 oz has 20 g of protein. ?? Yogurt - 6 oz has 8 g of protein. Fall Prevention ?? Use night lights. ?? Install grab bars by the toilet and in the tub and shower. Do not use towel bars as grab bars. ?? Use non-skid mats or decals on the floor of the tub or shower. ?? If you need to sit down while you are in the shower, use a plastic, non-slip stool. ?? Keep the floor dry. Immediately clean up any water that spills on the floor. ?? Remove soap buildup in the tub or shower on a regular basis. ?? Remove throw rugs and other tripping hazards from the floor. ?? Place frequently used items in xlwz-qz-fecuz places ?? Keep electrical cables out of the way. ?? Do not leave any items on the stairs. ?? Make sure that there are handrails on both sides of the stairs. Fix handrails that are broken or loose. Make sure that handrails are as long as the stairways. ?? Check any carpeting to make sure that it is firmly attached to the stairs. Fix any carpet that is loose or worn. ?? Avoid having throw rugs at the top or bottom of stairways, or secure the rugs with carpet tape to prevent them from moving. ?? Wear closed-toe shoes that fit well and support your feet. Wear shoes that have rubber soles or low heels. ?? Use mobility aids as needed, such as canes, walkers, scooters, and crutches. ?? Turn on lights if it is dark. Replace any light bulbs that burn out. ?? Set up furniture so that there are clear paths. Keep the furniture in the same spot. ?? Be aware of any and all pets. ?? Review your medicines with your healthcare provider. Some medicines can cause dizziness or changes in blood pressure, which increase your risk of falling. Hand Washing You should wash your hands whenever you think they are dirty. You should also wash your hands: ??? After: ?? Working or playing outside. ?? Touching an animal or its toys or leash. ?? Handling livestock. ?? Using the bathroom. ?? Using household manager flight or toxic chemicals. ?? Touching or taking out the garbage. ?? Touching anything dirty around your home. ?? Handling soiled clothes or rags. ?? Taking care of a sick child. This includes touching used tissues, toys, and clothes. ?? Sneezing, coughing, or blowing your nose. ?? Using public transportation. ?? Shaking hands. ?? Using a phone, including your mobile phone. ?? Touching money. ??? Before and after: ?? Preparing food. ?? Feeding a baby or young child. ?? Eating. ?? Visiting or taking care of someone who is sick. ?? Changing a diaper. ?? Changing a bandage (dressing) or taking care of an injury or wound. ?? Giving or taking medicine. If soap and [...] 4. Repeat the process for each step. ?? Always keep both feet within the width of the walker's legs or wheels. ?? When using your walker, you should not feel like you need to lean forward or to the side to keep your hands on the handgrips. ?? Make sure you are following any weight-bearing instructions that your health care provider has given you. ?? Be careful not to let the walker get too far ahead of you as you walk. ?? If your walker does not glide well [...] 5. Step down with your stronger leg. Electronically signed by Vinita [place] Conversion Security Operations Specialist Cerner at 11/21/2022 4:24 PM CDT documented in this encounter Plan of Treatment Not on file documented as of this encounter Visit Diagnoses Not on filedocumented in this encounter
--- OUTSIDE RECORDS SUMMARY | 2025-06-15 10:00 | XMS_ITS | Encounter Summary ---
Author Organization [employer] ([place], [place], [place], [place], [place]) Address [address] [place] [address] Care Team Providers Care Sectionizer Name Role Phone Unavailable Primary Care Provider Unavailabl e Encounter Details Date Type Department Care Team (Late st Contact Info) Description 04/03/2019 Transcribed Document [facility] [place] Family Medicine [address] [place] [address] ProviderSb MD [address] [place] [address] Social History Tobacco Use Types Packs/Day Years Used Date Smoking Tobacco: Never Assessed Comments Unknown Sex and Gender Information Value Date Recorded Sex Assigned at Not on file Legal Sex Female 1:50 PM CDT Gender Identity Not on file Sexual Orientation Not on file documented as of this encounter Miscellaneous Notes * Cerner Conversion Note - Sb ProviderMD - 04/03/2019 3:08 PM CDT Stroke/Warfarin Instructions Entered On: 04/03/2019 15:08 EDT Performed On: 04/03/2019 15:08 EDT by Giuliana Munroe RN Stroke/Warfarin Instructions Stroke/TIA Discharge Ins : N/A Warfarin Discharge Ins : N/A Giuliana Munroe RN - 04/03/2019 15:08 EDT documented in this encounter Plan of Treatment Not on file documented as of this encounter Visit Diagnoses Not on filedocumented in this encounter
--- OUTSIDE RECORDS SUMMARY | 2025-06-15 10:00 | XMS_ITS | Data Portability ---
Author Organization [facility] [place] CLOSED Address [address] [facility] [facility] [address] [address] [place] [address] Care Team Providers Care Assembler Adjuster Name Role Phone YARITZA MARIN Primary Care [...] sis, dipstic k, auto 018 12/14/19 18 [email or web address] [id number] [facility], [address] [place] [address] , [address], [place], [address], 8 20:43:45 culture , urine 018 12/14/19 18 [facility], [address] [place] [address], [place], [address], 8 08:44:07 Referral None recorde d. Procedures None recorde d. Surgeries None recorde d. Imaging None recorde d. Medication Orders None recorde d. Patient TargetsNo targets recorded. Patient Instructions Encounter Date Encounter Id Patient Instructions Last Modified By Organization Details Last Modified Time 12/13/2017 [id number] healthy together [id number] Not availa ble 12/13/2017 20:43:45 Female Urinary Tract Infection (UTI): Care Instructions [email or web address] Not available 12/13/2017 20:43:45 learning about high blood pressure [email or web address] Not available 12/13/2017 20:43:45 kidney stone: care instructions [email or web address] Not available 12/18/2017 11:59:52 learning about diet for kidney stone prevention [email or web address] Not available 12/18/2017 11:59:52 Reason for Referral None Reported. Results Created Date Observation Date Name Description Value Unit Range Abnormal Flag Note LastModifiedBy Organization Detail LastModifiedTime 12/14/19 18 12/13/2017 urina lysis , dipst ick, auto Unknown Analyte Yellow Not Available [address], [place], [address], 12/13/2017 18:12:50 12/14/19 18 12/13/2017 urina lysis , dipst ick, auto Unknown Analyte Clear Not Available [facility] [address], [place], [address], 12/13/2017 18:12:50 12/14/19 18 12/13/2017 urina lysis , dipst ick, auto Unknown Analyte 1.020 Not Available [facility] [address], [place], [address], 12/13/2017 18:12:50 12/14/19 18 12/13/2017 urina lysis , dipst ick, auto Unknown Analyte 5.0 Not Available [facility] [address], [place], [address], 12/13/2017 18:12:50 12/14/19 18 12/13/2017 urina lysis , dipst ick, auto Unknown Analyte 500 Ruddy/ul (++) Not Available [facility] [address], [place], [address], 12/13/2017 18:12:50 12/14/19 18 12/13/2017 urina lysis , dipst ick, auto Unknown Analyte Negati ve Not Available [facility] With [address] [place], [place], [address], 12/13/2017 18:12:50 12/14/19 18 12/13/2017 urina lysis , dipst ick, auto Unknown Analyte Negtiv e Not Available [facility] With [address] [place], [place], [address], 12/13/2017 18:12:50 12/14/19 18 12/13/2017 urina lysis , dipst ick, auto Unknown Analyte Normal Not Available [facility] With [address] [place], [place], [address], 12/13/2017 18:12:50 12/14/19 18 12/13/2017 urina lysis , dipst ick, auto Unknown Analyte Negati ve Not Available [facility] With [address] [place], [place], [address], 12/13/2017 18:12:50 12/14/19 18 12/13/2017 urina lysis , dipst ick, auto Unknown Analyte Normal Not Available [facility] With [address] [place], [place], [address], 12/13/2017 18:12:50 12/14/19 18 12/13/2017 urina lysis , dipst ick, auto Unknown Analyte Negati ve Not Available [facility] With [address] [place], [place], [address], 12/13/2017 18:12:50 12/14/19 18 12/13/2017 urina lysis , dipst ick, auto Unknown Analyte 50 Tony/ul Not Available [facility] With [address], [place], [address], 12/13/2017 18:12:50 12/14/19 18 12/13/2017 urina lysis , dipst ick, auto Unknown Analyte Clean Catch Not Available [facility] With [address], [place], [address], 12/13/2017 18:12:50 12/14/19 18 12/13/2017 urina lysis , dipst ick, auto Unknown Analyte Automa paras Not Available [facility] With [address], [place], [address], 12/13/2017 18:12:50 12/14/19 18 12/13/2017 cultu re, urine results [facility] e: CCUR Colle cted: 12/13 18:14 Site: Recei fawad : 12/14 09:06 URINE SCREE N(CUL TURE) FINAL 12/17 11:16 12/17 COLON Y COUNT : 10,00 0 - 100,0 00 CFU/M L Three or more isola rolo; mixed skin monique . Not Available [facility] [address] [place] [address], [address], 12/17/2017 11:16:32 12/15/19 18 05/08/2017 CT, abdom en + pelvi s, w/o contr ast No observ ation record ed. [email or web address] Not Available 12/04 13:00:45 03/07/20 18 11/08/2017 CT, abdom en + pelvi s, w/o contr ast No observ ation record ed. BARCODE Not Available 2017 08:35:03 08/22/19 19 08/22/2018 fluor oscop y (PROC ) No observ ation record ed. [email or web address] [facility] [place] [address] [address] [facility] [address], [place], [place], [id number], 08/26/2018 07:53:35 08/29/19 19 08/29/2018 XR, abdom en, 1 view No observ ation record ed. [address] [facility] [place] [address] [place], [id number], 09/02/2018 15:41:08 09/12/19 19 09/12/2018 XR, abdom en, 1 view No observ ation record ed. [address] [facility] [place] [address] [place], [id number], 09/16/2018 15:23:48 Result Notes None recorded. Problems Name Problem SNOMED Code Status Onset Date Resolution Date Notes Provider Name and Address Organization Details Recorded Time Kidney stone 18815628 Active 018 Murelene Atul [facility] 12/13/2017 18:08:39 Problem Notes None recorded. Procedures Surgical History Date Name Laterality Status Provider Name and Address Organization Details Recorded Time Cholecystectomy completed Murelene Atul [facility] 12/13/2017 18:09:19 Appendectomy completed Murelene Atul [facility] 12/13/2017 18:09:22 Hysterectomy completed Murelene Atul [facility] 12/13/2017 18:09:27 [facility] 12/13/2017 18:09:35 [facility] 12/13/2017 18:09:43 Xcapsl ctrc rmvl cplx wo ecp completed Murelene Atul [facility] 12/13/2017 18:10:24 Imaging Results None recorded. Procedure Notes None recorded. Medical Equipment None Reported. Allergies Allergen ID Allergen Name Allergen Category Reaction Reaction Severity Criticality Documentation Date Start Date Code Code System Note Provider Name and Address Organization Details Recorded Time 111058 Keflex medicatio n Not available Not available Not available 06/30/20162013 95011 7 RxNorm Comme nt: Creat ed By: Yany crain Date: 014 1:57: 39 PM; Not Available [facility] 6 05:28:44 055765 Iodinated contrast media (substanc e) medicatio n Not available Not available Not available 12/13/2017 36560 2004 SNOMED Mathieumigel Atul [facility] 8 18:06:57 Medications Name Sig Start [...] capsule Daily 2017 active Frequen cy: daily;Julia crowe on Descrip tion: linaclo tide; Dosage: 1; Route:o ral; refills :0 Not Available Not Available Not Available Vitals Date Recorded Body height Body mass index (BMI) Body weight Systolic And Diastolic Provider Name and Address Organization Details Last Updated DateTime 12/13/2017 154.94 cm 34.2 kg/m2 13529.22 g 140/60 mm[Hg] Rickautumnmigel Atul [facility] 12/13/2017 18:06:44 Social History Question Answer Notes LastModified by Organizat ion Details LastModified Time Tobacco Smoking Status Former Smoker Mathieumigel Atul [facility] 12/13/2017 18:09:02 What Was The Date [...] ICD10 Code Diagnosis IMO Codes Diagnosis Note [id number] JEY SAM MD [facility] [address] [place] [address],[place] [address] 12/13/2017 15:35:16 12/18/2017 12:30:05 Urinary tract infectious disease 06632055 N39.0 Kidney stone 69861743 N2 0.0 Health Concerns Section Related Observation LastModified by Organization Detai ls LastModified Time None Recorded Concern Status LastModified by Organization Details LastModified Time None Recorded Advance Directives Directive None Recorded Payers Insurance Date Sequence Insurance Name Policy Number Policy Alexander Covered Member ID Alexander Member ID Guarantor Name 12/17/2017 1 [employer] - CHOICECARE (PPO) Samara Hayward [id number] Samara Hayward 07/10/2021 1 [employer] (MEDICARE REPLACEMENT/A DVANTAGE - PPO) Samara Hayward [id number] Samara [place] 12/18/2017 GENERIC INSURANCE - MOVED-HOLD Samara Hayward Notes Date Note Type Note Provider Name and Address Organization Details Recorded Time 12/13/2017 text/html 72-year-old female in the office for consultation and evaluation [...] dysuria. She denies nocturia. JEY SAM MD [address] [place] [address], [address], [facility] 12/18/2017 12:01:48 OBGyn Episode No OBEpisode recorded.
--- OUTSIDE RECORDS SUMMARY | 2025-06-15 10:00 | XMS_ITS | Encounter Summary ---
Author Organization [email or web address] ([place], [place], [place], [place], [place]) Address [address] [place] [address] Care Team Providers Care Tug Boat Captain Name Role Phone Unavailable Primary Care Provider Unavailabl e Encounter Details Date Type Department Care Team (Late st Contact Info) Description 04/03/2019 Transcribed Document [facility] [place] [address] [place] [address] ProviderSb MD [facility] [place] [address] Social History Tobacco Use Types Packs/Day Years Used Date Smoking Tobacco: Never Assessed Comments Unknown Sex and Gender Information Value Date Recorded Sex Assigned at Not on file Legal Sex Female 1:50 PM CDT Gender Identity Not on file Sexual Orientation Not on file documented as of this encounter Miscellaneous Notes * Cerner Conversion Note - Historical ProviderMD - 04/03/2019 5:00 AM CDT Chart Check - Review Order Profile Entered On: 04/03/2019 6:45 EDT Performed On: 04/03/2019 5:00 EDT by ISAIAS BOLTON, Bus System Operator-Nursing Chart Check Powerplans Initiated/Discontinued as Appropriate : Yes All Active Orders Reviewed : Yes ISAIAS BOLTON, Bus System Operator-Nursing - 04/03/2019 6:45 EDT documented in this encounter Plan of Treatment Not on file documented as of this encounter Visit Diagnoses Not on filedocumented in this encounter
--- OUTSIDE RECORDS SUMMARY | 2025-06-15 10:00 | XMS_ITS | Encounter Summary ---
Author Organization [employer] ([place], [place], [place], [place], [place]) Address [address] [place] [address] Care Team Providers Care Shirt Turner Name Role Phone Unavailable Primary Care Provider Unavailabl e Encounter Details Date Type Department Care Team (Late st Contact Info) Description 04/03/2019 Transcribed Document [facility] [place] [address] ProviderSb MD [address] [place] [address] Social History Tobacco Use Types Packs/Day Years Used Date Smoking Tobacco: Never Assessed Comments Unknown Sex and Gender Information Value Date Recorded Sex Assigned at Not on file Legal Sex Female 1:50 PM CDT Gender Identity Not on file Sexual Orientation Not on file documented as of this encounter Miscellaneous Notes * Cerner Conversion Note - Sb ProviderMD - 04/03/2019 6:17 PM CDT Nursing Discharge Summary Entered On: 04/03/2019 18:17 EDT Performed On: 04/03/2019 18:17 EDT by Giuliana Munroe evp global product leadership Documentation Discharge Date/Time : 04/03/2019 15:45 EDT Patient Disposition, General : Discharge Discharge To : Home with ambulatory/outpatient follow-up Giuliana Murnoe RN - 04/03/2019 18:17 EDT documented in this encounter Plan of Treatment Not on file documented as of this encounter Visit Diagnoses Not on filedocumented in this encounter
--- OUTSIDE RECORDS SUMMARY | 2025-06-15 10:00 | XMS_ITS | Encounter Summary ---
Author Organization [employer] ([place], [place], [place], [place], [place]) Address [address] [place] [address] Care Team Providers Care Butcher Assistant Name Role Phone Unavailable Primary Care Provider Unavailabl e Encounter Details Date Type Department Care Team (Late st Contact Info) Description 03/31/2019 Transcribed Document [facility] [place] [facility] [place] [address] ProviderSb MD [address] [place] [address] Social History Tobacco Use Types Packs/Day Years Used Date Smoking Tobacco: Never Assessed Comments Unknown Sex and Gender Information Value Date Recorded Sex Assigned at Not on file Legal Sex Female 1:50 PM CDT Gender Identity Not on file Sexual Orientation Not on file documented as of this encounter Miscellaneous Notes * Cerner Conversion Note - Sb ProviderMD - 03/31/2019 7:16 AM CDT Pre Procedure Adult Entered On: 03/31/2019 7:20 EDT Performed On: 03/31/2019 7:16 EDT by KAIN CRUZ RN Height and Weight, Clinical Dosing Height Source : Measured Height Entry Format : Nye Height, Feet : 5 ft(Converted to: 152 cm, 60 Inch) Height, Inches : 1 Inch(Converted to: 0 ft 1 Inch, 2.54 cm) Clinical Height : 154.94 cm Weight Source : Standing scale Weight Entry Format : Nye Clinical Dosing Weight : 82.27 kg Weight, Pounds : 181 lb Body Surface Area (BSA) : 1.81 m2 Body Mass Index : 34.3 kg/m2 (HI) [place] Body Weight : 47 kg KAIN CRUZ RN - 03/31/2019 7:16 EDT Health Histories Smoking Status : Other: stopped 14 yrs ago Smokeless Tobacco Status : Never KAIN CRUZ RN - 03/31/2019 7:16 EDT Social History (As Of: 03/31/2019 07:20:13 EDT) Tobacco: Use in Last 12 Months: No. (Last Updated: 02/24/2015 20:11:38 EDT by JEREMY REECE, CARMITA) stopped 14 yrs ago Smoking Status. Never Smokeless Tobacco Status. (Last Updated: 03/13/2019 13:49:25 EDT by Kassidy Morgan RN) Alcohol: Alcohol Use History No. (Last Updated: 02/24/2015 20:11:31 EDT by JEREMY REECE RN) Substance Abuse: Drug Use Hx: No. (Last Updated: 02/24/2015 20:11:34 EDT by JEREMY REECE RN) Infectious Disease History Infectious Disease History : Hepatitis Non A, B, C, Measles Fever/Chills Last 48 Hours : No Travel To Regions with Travel Advisories : No Travel Outside [place] Within Last 30 Days : No Contact With Traveler to Advisory Region : No Tuberculosis Symptoms : None KAIN CRUZ RN - 03/31/2019 7:16 EDT Anesthesia/Transfusion History Family History of Anesthesia Reaction : Prior transfusion without reaction Transfusion History : Prior anesthesia without reaction Family History of Anesthesia Reaction : None KAIN CRUZ RN - 03/31/2019 7:16 EDT Functional Assessment Living Situation : Home Patient Lives With : Spouse Persons Assisting Patient at Home : Spouse Current Daily Living Assistance : None Sensory Deficits : None Mobility Assistance Prior to Admission : Independent CABRERA Hx Falls Immediate/Within 3 Months : No Current Home Treatments : None Home Equipment : Cane KAIN CRUZ RN - 03/31/2019 7:16 EDT Psychosocial History Currently in Unsafe Situation : No Tried to Harm Yourself in the Past? : No Thoughts of Harming/Killing Yourself : No KAIN CRUZ RN - 03/31/2019 7:16 EDT Advance Directive Patient has Advance Directive *Q : Yes, Advance Directive not with the patient Advance Directive Type : Living will Copy Advance Directive Verified/on Chart : No KAIN CRUZ RN - 03/31/2019 7:16 EDT Spiritual/Cultural Needs Any Spiritual/Cultural Needs or Requests : No KAIN CRUZ RN - 03/31/2019 7:16 EDT Teaching/Learning Assessment Barriers To Learning : None evident Individuals Taught : Patient Readiness to Learn : Cooperative Highest Level of Education : None Baseline Knowledge of Topic : Good Readiness to Learn : Explanation Learning Style Preferences Patient : Verbal explanation KAIN CRUZ RN - 03/31/2019 7:16 EDT General Info Arrived From : Home Mode of Arrival on Unit : Ambulatory Patient Arrival Date/Time : 03/31/2019 5:35 EDT Legal Guardian : Daughter, Spouse Support Person/Pt Rep Name : karen Vasquez Family/Rep/Phys Notified of Admit : No Emergency Contact #1 : Karen Hayward Emergency Contact #1 Emergency Contact #1 Relationship : spouse Emergency Contact #2 : . Emergency Contact #2 Phone Number : . Emergency Contact #2 Relationship : . Primary Language : Taiwanese Communication Barrier : None Objects to Sharing Info w Family : No KAIN CRUZ RN - 03/31/2019 7:16 EDT Vital Measurements Temperature Source : Temporal artery scanning Temperature Mode : Fahrenheit Temperature, Fahrenheit : 98.5 Deg F Clinical Temperature, C : 36.9 Deg C Pulse Method : Pulse Oximetry Peripheral Pulse Rate : 95 bpm Pulse Rhythm : Regular Respiratory Rate : 16 Breaths/Min Blood Pressure Location : Arm, left upper Blood Pressure Source : Non-Invasive BP Device Systolic Blood Pressure : 156 mmHg (HI) Diastolic Blood Pressure : 75 mmHg Oxygen Saturation : 98 % Oxygen Therapy Mode : Room air KAIN CRUZ RN - 03/31/2019 7:16 EDT Sleep Apnea Risk Assmt Hx of [...] Sleep Apnea Risk Level Score : 4 KAIN CRUZ RN - 03/31/2019 7:16 EDT Dorian Scale Dorian Sensory Perception : Slightly limited Dorian Moisture : Rarely moist Dorian Activity : Walks occasionally Dorian Mobility : Slightly limited Dorian Nutrition : Excellent Dorian Friction and Shear : No apparent problem Dorian Score : 20 KAIN CRUZ RN - 03/31/2019 7:16 EDT Oxygen Therapy Oxygen Therapy Mode : Room air KAIN CRUZ RN - 03/31/2019 7:16 EDT Pain Assessment Pain Assessment : Initial assessment Pain Scale Used : 0-10 Scale KAIN CRUZ RN - 03/31/2019 7:16 EDT Fall Risk Scales ABCs Fall Injury Risk Identification : None CABRERA Hx Falls Immediate/Within 3 Months : No Cabrera Secondary Diagnosis : No CABRERA Use of Ambulatory Aid : None CABRERA IV Therapy or IV Access : Yes Cabrera Gait/Transferring : Normal, bedrest, immobile Cabrera Mental Status : Oriented to own ability Cabrera Fall Risk Score : 20 CABRERA Fall Scale Risk Level : 0-24 Low Risk [place] Fall Interventions : Assistive devices within reach, Bed in low position, Call device within reach, Hourly comfort/safety rounds, Non-slip footwear, Personal items within reach, Upper side-rails up, Wheels locked KAIN CRUZ RN - 03/31/2019 7:16 EDT Fall Risk Education Grid Nonskid Footwear Use : Verbalizes understanding KAIN CRUZ RN - 03/31/2019 7:16 EDT Barriers to Learning : None evident Individuals Taught : Patient Readiness to Learn : Cooperative Highest Level of Education : None Baseline Knowledge of Topic : Good Teaching Method : Explanation Learning Style Preferences Patient : None, Verbal explanation Teaching Evaluation : Verbalizes understanding KAIN CRUZ RN - 03/31/2019 7:16 EDT Education Topics, Day of Surgery DayofSurgery Education Grid Anesthesia/Sedation : Verbalizes understanding IV's : Verbalizes understanding Medication Instructions : Verbalizes understanding Pain Management : Verbalizes understanding KAIN CRUZ RN - 03/31/2019 7:16 EDT Valuables and Belongings Valuables and Belongings : Clothing Clothing : Common streetwear Clothing Disposition : With family KAIN CRUZ RN - 03/31/2019 7:16 EDT Pain Scale Intensity : 5 KAIN CRUZ RN - 03/31/2019 7:16 EDT Image 4 - Images currently included in the form version of this document have not been included in the text rendition version of the form. Electronically signed by Vinita Fountain Conversion Management And Budget Analyst Cerner at 11/21/2022 4:03 PM CDT documented in this encounter Plan of Treatment Not on file documented as of this encounter Visit Diagnoses Not on filedocumented in this encounter
--- OUTSIDE RECORDS SUMMARY | 2025-06-15 10:00 | XMS_ITS | Encounter Summary ---
Author Organization [employer] ([place], [place], [place], [place], [place]) Address [address] [place] [address] Care Team Providers Care Spouting Installer Name Role Phone Unavailable Primary Care Provider Unavailabl e Encounter Details Date Type Department Care Team (Late st Contact Info) Description 03/31/2019 Transcribed Document [facility] [place] [facility] [place] [address] ProviderSb MD [facility] [place] [address] Social History Tobacco Use Types Packs/Day Years Used Date Smoking Tobacco: Never Assessed Comments Unknown Sex and Gender Information Value Date Recorded Sex Assigned at Not on file Legal Sex Female 1:50 PM CDT Gender Identity Not on file Sexual Orientation Not on file documented as of this encounter Miscellaneous Notes * Cerner Conversion Note - Sb ProviderMD - 03/31/2019 2:20 PM CDT Patient: SHARONDA HAYWARD Age: 74 years Sex: Female : 1945 Associated Diagnoses: None Author: Flo Boland, Pharmacist Pharmacy verified patient's allergies and home medication list with the patient and pharmacy. Records are as follows: Home Medications (14) Active aspirin 81 mg oral tablet 81 mg = 1 Tab, Oral, Daily atorvastatin 20 mg oral tablet 20 mg = 1 Tab, Oral, At Bedtime Benadryl 25 mg oral tablet 50 mg = 2 Tab, Oral, At Bedtime clonazePAM 0.5 mg oral tablet 0.5 mg = 1 Tab, PRN, Oral, BID docusate 100 mg, Oral, EveryOtherDay Estrace 1 mg oral tablet 1 mg = 1 Tab, Oral, Daily folic acid 0.4 mg oral tablet 0.4 mg = 1 Tab, Oral, Daily hydroCHLOROthiazide-lisinopril 12.5 mg-20 mg oral tablet 1 Tab, Oral, Daily Klor-Con M20 1 Tab, Oral, Daily Linzess 290 mcg oral capsule 290 mcg = 1 Cap, Oral, EveryOtherDay lipoflavanoid 1 Tab, Oral, BID Metoprolol Succinate ER 50 mg, Oral, Daily omeprazole 20 mg, PRN, Oral, Daily tramadol 50 mg oral tablet 50 mg = 1 Tab, PRN, Oral, Q12H Allergies (3) Active Reaction Adhesive Bandage O/E - erythematous rash Betadine severe rash Uncoded Allergy (See Comment) hood Thank you, Flo Boland, Maldonado documented in this encounter Plan of Treatment Not on file documented as of this encounter Visit Diagnoses Not on filedocumented in this encounter
--- OUTSIDE RECORDS SUMMARY | 2025-06-15 10:00 | XMS_ITS | Encounter Summary ---
Author Organization [employer] ([place], [place], [place], [place], [place]) Address [address] [place] [address] Care Team Providers Care Die Storage Clerk Name Role Phone Unavailable Primary Care Provider Unavailabl e Encounter Details Date Type Department Care Team (Late st Contact Info) Description 03/31/2019 Transcribed Document [facility] [place] [facility] [address] ProviderSb MD [address] [place] [address] Social History Tobacco Use Types Packs/Day [...] Sb ProviderMD - 03/31/2019 10:40 AM CDT Evaluation, Physical Therapy Entered On: 03/31/2019 14:05 EDT Performed On: 03/31/2019 13:13 EDT by LUIS WALLACE, PT General Information, PT Visit Type, PT : Initial evaluation LUIS WALLACE, PT - 03/31/2019 13:49 EDT Patient Orders : Order Date Order Ordering MD 03/31/2019 10:40 PT Evaluation and Treatment Ordered By: YAMILETH OMER MD-ORT Active Diagnoses : No Qualifying Diagnoses LUIS WALLACE, PT - 03/31/2019 14:06 EDT Therapy Diagnosis, PT : aftercare following LTHA-anterior LUIS WALLACE, PT - 03/31/2019 13:49 EDT Admission Date : 03/31/2019 04:43 LUIS WALLACE, PT - 03/31/2019 14:06 EDT Assisted by, PT : Occupational Therapist LUIS WALLACE, PT - 03/31/2019 13:49 EDT Personal Devices : Personal Devices No Devices Recorded Assistive Devices : Assistive Devices No Devices Recorded LUIS WALLACE, PT - 03/31/2019 14:06 EDT General Status Patient Received Status : Supine in bed, Bed alarm activated Treatment Start Time : 03/31/2019 13:13 EDT Patient Left Status : Up in chair, Chair alarm activated, RN/PCT informed, Family/Visitors at bedside, Communication board completed, All needs met and within reach RN/PCT Informed Comment : Yes, RN approved pt for PT eval and pt agreeable Treatment End Time : 03/31/2019 13:45 EDT Treatment Time : 32 Minute(s) LUIS WALLACE, PT - 03/31/2019 13:49 EDT History and Environment Living Situation, Therapy : Home Patient Lives With : Spouse Persons Assisting Patient at Home : Spouse Professional Skilled Services : None Persons Providing Information : Patient, Family member(s) Home Equipment Therapy, PT : Commode, Shower Equipment Home Setup : One story Stairs : Yes Stair Location(s) : Inside, Outside Inside Stairs, Number of Steps : 3 Outside Stairs, Number of Steps : 1 Outside Stairs Comment : 1 platform Railing Inside : Yes Inside Railing Position : Bilateral LUIS WALLACE, PT - 03/31/2019 13:49 EDT Prior Level of Function PT GRID Prior LOF Ambulation, Household : Independent Prior LOF Ambulation, Community : Independent Prior LOF Bed Mobility : Independent Prior LOF Toileting : Independent Prior LOF Transfer : Independent LUIS WALLACE, PT - 03/31/2019 13:49 EDT Upper Extremity Upper Extremity Dominance : Right Right UE Active ROM : WFL Right UE Strength : WFL Left UE Active ROM : WFL Left UE Strength : WFL Right UE Strength : WFL Left UE Strength : WFL LUIS WALLACE, PT - 03/31/2019 13:49 EDT Lower Extremity RLE Active ROM : WFL Right LE Strength : WFL LLE Active ROM : Impaired Left LE Active Assist ROM : Impaired LLE Passive ROM : Impaired Left LE Strength : Impaired Lower Extremity Comment : LLE is impaired due to left hip surgery this am. Pt guarded in all movement so no formal strength testing is performed at this time RLE is WFL's LUIS WALLACE, PT - 03/31/2019 13:49 EDT Functional Mobility Mobility Grid Bed Scooting : Rehab Moderate assistance Supine to Sit : Rehab Moderate assistance Sit to Stand : Rehab Moderate assistance Bed to Chair : Rehab Moderate assistance Stand to Sit : Rehab Moderate assistance LUIS WALLACE, PT - 03/31/2019 13:49 EDT Gait Training/Assessment, PT Weight Bearing Status : As tolerated Gait Assistance Level : Assist, moderate Walking Distance : 8 steps total from bed to BSC and then recliner with mod assist x2, frequent verbal cues for correct gait sequence and for increased knee extension on LLE to allow for safe transfer. Left leg buckling Ambulatory Devices : Gait belt, Walker, front wheel Gait Deviations : Yes Gait Training Comment : see above Stair(s) Ascend/Descend Training : No LUIS WALLACE, PT - 03/31/2019 13:49 EDT Neuromuscular Reeducation, PT Balance Comment : good sitting poor standing due to left leg buckling LUIS WALLACE, PT - 03/31/2019 13:49 EDT Neurological/Sensory Overall Sensory Response : Intact Light Touch Response : Intact LUIS WALLACE, PT - 03/31/2019 13:49 EDT Activity Tolerance, PT Activity Comment : poor LUIS WALLACE, PT - 03/31/2019 13:49 EDT Cognition Assessment, PT Orientation : Oriented x 4 Attention Assessment : Present, Agitated LUIS WALLACE, PT - 03/31/2019 13:49 EDT Edu Topics Physical Therapy Education Grid Bed Mobility Training : Verbalizes understanding, Returns demonstration, Needs further teaching Gait Training : Verbalizes understanding, Returns demonstration, Needs further teaching Transfer Training : Verbalizes understanding, Returns demonstration, Needs further teaching Use of Assistive Device : Verbalizes understanding, Returns demonstration, Needs further teaching LUIS WALLACE, PT - 03/31/2019 13:49 EDT Indication Assesessment, PT Physical Therapy Indicated : Yes Interdisciplinary Consultation(s) Needed : Yes Interdisciplinary Consult : Occupational Therapy PT Problem List : Impaired, bed mobility, Impaired, gait, Impaired, stair mobility, Impaired, strength, Impaired, transfers Potential Barriers To Therapy : Acuity of Illness Rehabilitation Potential : Fair LUIS WALLACE, PT - 03/31/2019 13:49 EDT Plan of Care, PT PT Tx Plan/Goals Established w Patient : Yes PT Frequency Rehab : Daily, twice (bid) Other PT Treatment Provided This Date : gait as per note ther act PT Duration Rehab : Five days PT Treatments Planned : Bed mobility training, Gait training, Safety education, Stair training, Therapeutic exercises, Transfer training Plan of Care Comment, PT : Pt will be seen twice daily for PT treatment which may include training in transfers, bed mobility, gait, stairs, use of AD, balance training, therapeutic exercise, HEP instruction and pt education on safety precautions LUIS WALLACE, PT - 03/31/2019 13:49 EDT Half-Way Goals Other PT LTG Grid [...] : Initial goal Initial goal Initial goal Initial goal LUIS WALLACE, PT - 03/31/2019 13:49 EDT LUIS WALLACE, PT - 03/31/2019 13:49 EDT LUIS WALLACE, PT - 03/31/2019 13:49 EDT LUIS WALLACE, PT - 03/31/2019 13:49 EDT Goal #5 Other : Pt will be able to transfer sit<>stand consistently with min assist x1 to ease caregiver burden Date to Meet : 04/04/2019 EDT Goal Status : Initial goal LUIS WALLACE, PT - 03/31/2019 13:49 EDT Treatment Note Subjective Comment : agreeable. I am so tired. You don't understand that I have not really slept in the past 24 hours Patient's Response to Treatment : good LUIS WALLACE, PT - 03/31/2019 13:49 EDT Additional Objective Information : eval gait as per note Pt's left leg buckling with transfers to BSC and to recliner PT assisted OT with getting pt to the BSC and remained with pt to supervise pt for safety with transfers, dynamic standing balance, assistance with clothing and supervision with mobility PT applied ice pack to pt's left hip to assist with the burning pain Nursing aware LUIS WALLACE, PT - 03/31/2019 14:06 EDT Assessment : Pt would benefit from continued skilled PT services in the acute care setting to improve her level of mobility and assist her to return to her PLOF Plan for Treatment : continue per eval POC LUIS WALLACE, PT - 03/31/2019 13:49 EDT Pain Assessment Pain Scaled Used : 0-10 Pain scale LUIS WALLACE, PT - 03/31/2019 13:49 EDT Pain Score Pre-Intervention : 4 Pain Score Post-Intervention. : 4 LUIS WALALCE, PT - 03/31/2019 14:06 EDT Image 1 - Images currently included in the form version of this document have not been included in the text rendition version of the form. Anticipated Discharge Needs, OT/PT Anticipated Discharge to : Other: to be determined pending pt's progress toward goals LUIS WALLACE, PT - 03/31/2019 13:[address] [facility] PT Charges PT Ther Activities Ea 15 Min : 1 Gait Training Each 15 Min : 1 PT Eval Low Complexity : 1 LUIS WALLACE, PT - 03/31/2019 13:49 EDT documented in this encounter Plan of Treatment Not on file documented as of this encounter Visit Diagnoses Not on filedocumented in this encounter
--- OUTSIDE RECORDS SUMMARY | 2025-06-15 10:01 | XMS_ITS | Encounter Summary ---
Author Organization [employer] ([place], [place], [place], [place], [place]) Address [address] [place] [address] Care Team Providers Care Carbonation Tester Name Role Phone Unavailable Primary Care Provider Unavailabl e Encounter Details Date Type Department Care Team (Late st Contact Info) Description 04/02/2019 Transcribed Document [facility] [place] [facility] [place] [address] ProviderSb MD [address] [place] [address] Social History Tobacco Use Types Packs/Day Years Used Date Smoking Tobacco: Never Assessed Comments Unknown Sex and Gender Information Value Date Recorded Sex Assigned at Not on file Legal Sex Female 1:50 PM CDT Gender Identity Not on file Sexual Orientation Not on file documented as of this encounter Miscellaneous Notes * Cerner Conversion Note - Sb ProviderMD - 04/02/2019 1:15 PM CDT On Going Discharge Planning Entered On: 04/02/2019 13:16 EDT Performed On: 04/02/2019 13:15 EDT by DAHIANA ROY, Care Management-Utility Locate Technician Care Management Progress Note Discharge Arrangements : Patient Post-Acute Information Patient Name: SHARONDA HAYWARD Gender: Female : [birth year] Age: 74 Years No Post-Acute Placement(s) Listed No Post-Acute Service(s) Listed No [place] Referral(s) Listed Discharge Options Discussed with Patient : DME, Home Health DAHIANA ROY, Care Management-Utility Locate Technician - 04/02/2019 13:15 EDT Narrative Progress Note Narrative Progress Note : today pt is unable to progress with mobility and is agreeable to rehab pending bed availability and insurance. pt has indicated that this has taken more out of her than she expected. she is having more pain and requires more assistance that she thought she would. DAHIANA ROY, Care Management-Utility Locate Technician - 04/02/2019 13:15 EDT Electronically signed by Vinita Fountain Conversion Rubber Gasket Inspector Trimmer Cerner at 11/21/2022 4:12 PM CDT documented in this encounter Plan of Treatment Not on file documented as of this encounter Visit Diagnoses Not on filedocumented in this encounter
--- OUTSIDE RECORDS SUMMARY | 2025-06-15 10:01 | XMS_ITS | Data Portability ---
Author Organization [facility] ADMIN Address [address] [place] [id number] Care Team Providers Care Core Blower Name Role Phone YAMILETH IBRAHIM Primary Care [...] Time repair of rectocele completed Elaine Rocha [facility] & [place] 06/19/2023 11:32:42 repair of rotator cuff by suture completed Elaine ZIMMERMAN [facility] & [place] 06/19/2023 11:33:26 extraction of cataract completed Elaine Rocha [facility] & [place] 06/19/2023 11:33:39 Carpal tunnel surgery completed Elaine ZIMMERMAN [facility] & [place] 06/19/2023 11:33:53 Stent Placement completed Elaine DOUGLAS [facility] & [place] 06/19/2023 11:34:56 procedure on gallbladder completed Elaine DOUGLAS [facility] & [place] 06/19/2023 11:35:47 Appendectomy completed Elaine DOUGLAS [facility] & [place] 06/19/2023 11:35:59 hysterectomy completed Elaine DOUGLAS [facility] & [place] 06/19/2023 11:36:08 Imaging Results None recorded. Procedure Notes None recorded. Medical Equipment None Reported. Allergies Allergen ID Allergen Name Allergen Category Reaction Reaction Severity Criticality Documentation Date Start Date Code Code System Note Provider Name and Address Organization Details Recorded Time 928090 Keflex medicatio n Not available Not available Not available 06/18/202367433 7 RxNorm ELSIE Sheppard [facility] & [place] 3 14:26:14 948549 iodine medicatio n Not available Not available Not available 06/18/2023 5933 RxNorm ELSIE Sheppard [facility] [place] 3 14:26:25 177239 Betadine medicatio n Not available Not available Not available 06/18/202302241 0 RxNorm ELSIE Sheppard [facility] [place] 3 14:26:49 646341 Hibiclens medicatio n Not available Not available Not available 06/18/2023 27191 2 RxNorm ELSIE Sheppard [facility] & [place] 3 14:26:55 810099 adhesive tape environme nt,medica tion Not available Not available Not available 06/18/2023 ELSIE Sheppard [facility] & [place] 3 14:27:03 151842 Augmentin medicatio n Not available Not available Not available 06/18/2023 84196 2 RxNorm ELSIE Sheppard [facility] & [place] 3 14:27:09 Medications Name Sig Start Date [...] Updated DateTime 3 154.94 cm 34.4 kg/m2 27756.8 1 g 97.1 [degF] 70 /min 177/80 mm[Hg] Jo-Ann Sanderson ELSIE - LPNT [facility] & [place] 14:51:11 Social History None recorded. Functional Status None recorded. Mental Status None recorded. Family History Relationship Description Onset Age of this Age Resolved Age Notes LastModified by Organization Details LastModified Time Mother Mother CHART_MERGE Not available 08/06 12:30:23 Mother Rheumatoid arthritis CHART_MERGE Not available 08/06 12:30:23 Father Father CHART_MERGE Not available 08/06 12:30:23 Medical History Condition Response Allergies/Hayfever Y Heart Problems Y None Y Other Y Heart Conditions N Emphysema N Migraines N Thyroid Problems N Developmental Delay N Glaucoma N Depression N Anemia N Immune System Disorder N Constipation Y Anesthesia Complications N Heart Attack ([place]) N Anxiety Disorder Y Diabetes N Bleeding [...] conjugate PCV 13 7 completed Elaine gamboa [facility] & [place] 06/19/2023 11:40:00 Influenza, MDCK, trivalent, PF 7 completed ELSIE Sheppard [facility] 06/19/2023 11:40:18 Past Encounters Encounter ID Performer Location Encounter Start Date Encounter Closed Date Diagnosis/Indication Diagnosis SNOMED-CT Code Diagnosis ICD10 Code Diagnosis IMO Codes Diagnosis Note [id number] Shahrzad Becerra MD [facility] G -[address] [phone] 03/06/2023 13:55:55 03/06/2023 15:38:30 Bilateral tinnitus 7129700157 102 H93.13 patient has very bothersome tinnitus [...] Anxiety ab out body function or health 871513850 F41.8 Health Concerns Section Related Observation LastModified by Organization Detai ls LastModified Time None Recorded Concern Status LastModified by Organization Details LastModified Time None Recorded Advance Directives Directive None Recorded Payers Insurance Date Sequence Insurance Name Policy Number Policy Alexander Covered Member ID Alexander Member ID Guarantor Name 05/25/2025 1 [employer] (MEDICARE REPLACEMENT/ ADVANTAGE - PPO) Samara Hayward [id number] Notes Date Note Type Note Provider Name [...] have worked for her. She saw an purchasing buyer in [place] (Nehal Caicedo) who wanted her to get [...] audiologists and Otolaryngologists. She reports seeing an heart nurse in [place] and one at as well (prehaps Dr. Pena). She does report trying to wear a hearing aid however, she reports it made Sounds too loud and she immediately pulled them out of her ears and did not leave the office with the hearing aids. Shahrzad Becerra MD [address] [place], [place], [address], [facility] [place] & [place] 03/09/2023 11:00:13 OBGyn Episode No OBEpisode recorded.
--- OUTSIDE RECORDS SUMMARY | 2025-06-15 10:01 | XMS_ITS | Encounter Summary ---
Author Organization [employer] ([place], [place], [place], [place], [place]) Address [address] [place] [address] Care Team Providers Care Aligner Typewriter Name Role Phone Unavailable Primary Care Provider Unavailabl e Encounter Details Date Type Department Care Team (Late st Contact Info) Description 03/25/2019 Transcribed Document [facility] [place] [facility] [place] [address] ProviderSb MD [address] [place] [address] Social History Tobacco Use Types Packs/Day Years Used Date Smoking Tobacco: Never Assessed Comments Unknown Sex and Gender Information Value Date Recorded Sex Assigned at Not on file Legal Sex Female 1:50 PM CDT Gender Identity Not on file Sexual Orientation Not on file documented as of this encounter Miscellaneous Notes * Cerner Conversion Note - Sb Man MD - 03/25/2019 2:08 PM CDT Orthopedic Nurse Navigator Entered On: 03/25/2019 14:09 EDT Performed On: 03/25/2019 14:08 EDT by Helena Beal Rn Orthopedic Nurse Navigator Assessment Attended [employer] : No Type of Surgery : Anterior Hip Replacement, Left Does Patient Have a Walker? : No Patient Completed RAPT Score : 6 Joint Navigator Assessment Note : According to the RAPT Score, additional intervention needed for discharge directly home. P indicates she has hearing issues and ringing/noise in her ears. Pt prefers HH. Helena Beal Rn - 03/25/2019 14:08 EDT Electronically signed by Vinita Fountain Conversion Certified Neurodiagnostic Technologist Fernando at 11/21/2022 4:27 PM CDT documented in this encounter Plan of Treatment Not on file documented as of this encounter Visit Diagnoses Not on filedocumented in this encounter
--- OUTSIDE RECORDS SUMMARY | 2025-06-15 10:01 | XMS_ITS | Encounter Summary ---
Author Organization [employer] ([place], [place], [place], [place], [place]) Address [address] [place] [address] Care Team Providers Care Irrigator Head Name Role Phone Unavailable Primary Care Provider Unavailabl e Encounter Details Date Type Department Care Team (Late st Contact Info) Description 04/01/2019 Transcribed Document [facility] [place] [facility] [place] [address] ProviderSb MD [address] [place] [address] Social History Tobacco Use Types Packs/Day Years Used Date Smoking Tobacco: Never Assessed Comments Unknown Sex and Gender Information Value Date Recorded Sex Assigned at Not on file Legal Sex Female 1:50 PM CDT Gender Identity Not on file Sexual Orientation Not on file documented as of this encounter Miscellaneous Notes * Cerner Conversion Note - Historical ProviderMD - 04/01/2019 2:00 AM CDT Recreation Professor Details Entered On: 04/01/2019 1:12 EDT Performed On: 04/01/2019 2:00 EDT by Sonny Jeong RN Order Details Transport Mode Order Detail : Wheelchair Isolation Precautions Order Detail : Standard Precautions Order Detail : N/A IV Order Detail : 1 Oxygen Order Detail : 1 Nurse Collect Order Detail : 0 Lift/Transfer : Moderate assist Central Line Order Detail : No Room Service : Appropriate Arterial Line : No Sonny Jeong RN - 04/01/2019 1:12 EDT documented in this encounter Plan of Treatment Not on file documented as of this encounter Visit Diagnoses Not on filedocumented in this encounter
--- OUTSIDE RECORDS SUMMARY | 2025-06-15 10:01 | XMS_ITS | Clinical Summary ---
Author Organization [facility] Address [facility] [place] [address] Care Team Providers Care Wellness Trainer Name Role Phone Khadar Quintana MD Primary Care Provider + [phone] Source Comments This information has been disclosed [...] therelease of HIV test results or diagnoses. [id number] Allergies Active Allergy Reactions Criticality Noted [...] Screening 07/05/2023 07/05/2022 Immunization: COVID-19 ( season) 2025 06/29/2021, 11/05/2020, 10/05/2020 Immunization: Influenza (MyC granda) (#1) 2025 06/09/2020, 07/01/2019, 05/17/2018 Immunization: Pneumococcal Completed 06/09/2020, Insurance [employer] CHOICE PPO MEDICARE Care Teams Wellness Trainer Relationship Specialty Start Date End Date Khadar Quintana MD [address] [place] [address] [place] [address] PCP - General Internal Medicine 05/30/22
--- OUTSIDE RECORDS SUMMARY | 2025-06-15 10:01 | XMS_ITS | Encounter Summary ---
Author Organization [employer] ([place], [place], [place], [place], [place]) Address [address] [place] [address] Care Team Providers Care Mechanic General Operational Test Name Role Phone Unavailable Primary Care Provider Unavailabl e Encounter Details Date Type Department Care Team (Late st Contact Info) Description 03/31/2019 Transcribed Document [facility] [place] [facility] [place] [address] ProviderSb MD [address] [place] [address] Social History Tobacco Use Types Packs/Day [...] 10:40 AM CDT Pain Assessment Entered On: 03/31/2019 19:58 EDT Performed On: 03/31/2019 15:56 EDT by Roberta Lange Rn Intervention Information: oxyCODONE Performed by Roberta Lange Rn on 03/31/2019 14:56:00 EDT oxyCODONE,5mg Oral,Pain (Mild 1-3) Pain Assessment Pain Assessment : Follow-up assessment Pain Scale Goal : 4 Pain Scale Used : 0-10 Scale Roberta Lange Rn - 03/31/2019 19:58 EDT Pain Scale Intensity : 3 Roberta Lange Rn - 03/31/2019 19:58 EDT Image 4 - Images currently included in the form version of this document have not been included in the text rendition version of the form. Electronically signed by Vinita Fountain Conversion Hardwood Flooring Specialist Cerner at 11/26/2022 2:00 PM CDT documented in this encounter Plan of Treatment Not on file documented as of this encounter Visit Diagnoses Not on filedocumented in this encounter
--- OUTSIDE RECORDS SUMMARY | 2025-06-15 10:01 | XMS_ITS | Encounter Summary ---
Author Organization [employer] ([place], [place], [place], [place], [place]) Address [address] [place] [address] Care Team Providers Care Bb Shot Packer Name Role Phone Unavailable Primary Care Provider Unavailabl e Encounter Details Date Type Department Care Team (Late st Contact Info) Description 04/01/2019 Transcribed Document [facility] [place] [facility] [place] [address] ProviderSb MD [address] [place] [address] Social History Tobacco Use Types Packs/Day Years Used Date Smoking Tobacco: Never Assessed Comments Unknown Sex and Gender Information Value Date Recorded Sex Assigned at Not on file Legal Sex Female 1:50 PM CDT Gender Identity Not on file Sexual Orientation Not on file documented as of this encounter Miscellaneous Notes * Cerner Conversion Note - Historical ProviderMD - 04/01/2019 12:26 AM CDT Event Note Entered On: 04/01/2019 0:27 EDT Performed On: 04/01/2019 0:26 EDT by Sonny Jeong RN Event Note Event Date/Time : 04/01/2019 0:10 EDT Event Location : Assigned room Event Details : Nursing assessment additional narrative Description of Event : Patient called out for help moving in bed. Aid and I repositioned patient. Patient stated she was so sore . Pain medication offered but patient refused. Patient also stated she does not want any tylenol. Sonny Jeong RN - 04/01/2019 0:26 EDT documented in this encounter Plan of Treatment Not on file documented as of this encounter Visit Diagnoses Not on filedocumented in this encounter
--- OUTSIDE RECORDS SUMMARY | 2025-06-15 10:01 | XMS_ITS | Encounter Summary ---
Author Organization [employer] ([place], [place], [place], [place], [place]) Address [address] [place] [address] Care Team Providers Care Program Clerk Name Role Phone Unavailable Primary Care Provider Unavailabl e Encounter Details Date Type Department Care Team (Late st Contact Info) Description 04/01/2019 Transcribed Document [facility] [place] [facility] [place] [address] ProviderSb MD [address] [place] [address] Social History Tobacco Use Types Packs/Day Years Used Date Smoking Tobacco: Never Assessed Comments Unknown Sex and Gender Information Value Date Recorded Sex Assigned at Not on file Legal Sex Female 1:50 PM CDT Gender Identity Not on file Sexual Orientation Not on file documented as of this encounter Miscellaneous Notes * Cerner Conversion Note - Sb ProviderMD - 04/01/2019 7:35 PM CDT Spiritual Care Short Form Entered On: 04/01/2019 20:52 EDT Performed On: 04/01/2019 19:35 EDT by CAMILA LUA Chaplain-Non Cert General Information, Spiritual Care Spiritual Care Referred by : Angular Developer initiated Reason for Visit : Initial Ministry Provided to : Patient, Family/Significant other Intervention/Comment/Summary Points : Patient has been struggling with chronic pain for months and she struggles with her nerves . She wants to go home because she believes her concerns are not being taken seriously and her nerves are so bad she just can't take it anymore. After venting, patient said she felt somewhat better after saying what she needed to say . Interestingly, patient's demeanor was softer and more positive with nurses and aides that came in at shift change. Patient is not coping well with her pain and discomfort, and worries that she won't be able to take care of herself when she returns home. Spiritual/Emotional Acuity : Medium Spiritual Framework : Unknown Rastafarian Preference : Unknown CAMILA LUA, Angular Developer-Non Cert - 04/01/2019 20:43 EDT documented in this encounter Plan of Treatment Not on file documented as of this encounter Visit Diagnoses Not on filedocumented in this encounter
--- OUTSIDE RECORDS SUMMARY | 2025-06-15 10:01 | XMS_ITS | Encounter Summary ---
Author Organization [employer] ([place], [place], [place], [place], [place]) Address [address] [place] [address] Care Team Providers Care Chemical Engineering Technician Name Role Phone Unavailable Primary Care Provider Unavailabl e Encounter Details Date Type Department Care Team (Late st Contact Info) Description 03/31/2019 Transcribed Document [facility] [place] [facility] [place] [address] ProviderSb MD [address] [place] [address] Social History Tobacco Use Types Packs/Day [...] ProviderMD - 03/31/2019 10:40 AM CDT Evaluation, Occupational Therapy Entered On: 03/31/2019 14:14 EDT Performed On: 03/31/2019 13:14 EDT by CHARLENE EWING OTR/L General Information, OT Visit Type, OT : Initial evaluation Patient Orders : Order Date Order Ordering MD 03/31/2019 10:40 OT Evaluation and Treatment Ordered By: YAMILETH OMER MD-ORT Active Diagnoses : No Qualifying Diagnoses Therapy Diagnosis, OT : reduced mobility Admission Date : 03/31/2019 04:43 Assisted by, OT : Physical Therapist Personal Devices : Personal Devices No Devices Recorded Assistive Devices : Assistive Devices No Devices Recorded Precautions in Place : Fall prevention measures CHARLENE EWING OTR/L - 03/31/2019 13:59 EDT General Status Patient Received Status : Long sitting in bed, Bed alarm activated, HOB elevated Treatment Start Time : 03/31/2019 13:14 EDT Patient Left Status : Up in chair, Chair alarm activated, RN/PCT informed, Family/Visitors at bedside, Communication board completed, All needs met and within reach RN/PCT Informed Comment : nursing ok'd tx. id and verified. Treatment End Time : 03/31/2019 13:45 EDT Treatment Time : 31 Minute(s) CHARLENE EWING OTR/Cherry - 03/31/2019 13:59 EDT History and Environment, OT Living Situation, Therapy : Home Patient Lives With : Spouse Persons Assisting Patient at Home : Spouse Persons Providing Information : Patient Home Equipment, Therapy : Commode, Shower Equipment Commode : Commode, bedside Shower Equipment : Shower Chair, with back Home Setup : One story Stairs : Yes Stair Location(s) : Inside Inside Stairs, Number of Steps : 3 Railing Inside : Yes Inside Railing Position : Bilateral CHARLENE EWING OTR/Cherry - 03/31/2019 13:59 EDT Prior LOF Bathing, OT : Independent Prior LOF Bed Mobility : Independent Prior LOF Upper Body Dressing, OT : Independent Prior LOF Lower Body Dressing, OT : Independent Prior LOF Toileting : Independent Prior LOF Transfer : Independent Prior LOF Grooming, OT : Independent Prior LOF for IADLs, OT : Independent CHARLENE EWING OTR/Cherry 03/31/2019 13:59 EDT Upper Extremity Upper Extremity Dominance : Right Right UE Active ROM : WFL Right UE Strength : WFL Left UE Active ROM : WFL Left UE Strength : WFL Upper Extremity Strength Impaired : No Fine Motor Coordination Impaired : No CHARLENE EWING OTR/Cherry 03/31/2019 13:59 EDT Self Care/Home Management, OT Self Feeding Assist Level, OT : Independent, complete Grooming Assist Level, OT : Independent, complete Bathing Assist Level, OT : Supervision or set-up Upper Body Dressing Assist Level, OT : Independent, complete Lower Body Dressing Assist Level, OT : Assist, minimal Lower Body Dressing Comment, OT : min/mod x 2 Toileting Assist Level : Assist, moderate Toileting Device : Commode, bedside Toileting Assist Device Comment : x 2 Toilet Transfer Assist Level : Assist, moderate Toilet Transfer Device : Belt, gait, Commode, bedside, Walker, rolling Toilet Transfer Comment : x 2 Left LE buckling. CHARLENE EWING OTR/L - 03/31/2019 13:59 EDT Mobility Device/Prosthesis/Wt Bearing Weight Bearing Status Maintained : Yes Weight Bearing Status : As tolerated Functional Mobility Device : Gait belt, Walker, front wheel Functional Mobility with Brace/Splint : No CHARLENE EWING OTR/L 03/31/2019 13:59 EDT Functional Mobility Mobility Grid Supine to Sit : Rehab Moderate assistance (Comment: x 2 [CHARLENE EWING OTR/L 03/31/2019 13:59 EDT] ) Sit to Stand : Rehab Moderate assistance (Comment: x 2, Left leg buckling [CHARLENE EWING OTR/Cherry 03/31/2019 13:59 EDT] ) Bed to Chair : Rehab Moderate assistance (Comment: x 2 [CHARLENE EIWNG OTR/Cherry [place] 03/31/2019 13:59 EDT] ) Stand to Sit : Rehab Moderate assistance (Comment: x 2 [CHARLENE EWING OTR/Cherry 03/31/2019 13:59 EDT] ) CHARLENE EWING OTR/L 03/31/2019 13:59 EDT AM PAC Daily Activity Putting On/Taking Off Lower Body Clothes : A lot Bathing (Washing, Rinsing, Drying) : A lot Toileting Includes Toilet, Bedpan, Urinal : A lot Putting On/Taking Off Upper Clothing : None Taking Care of Grooming : None Eating Meals : None AM-PAC Daily Activity Raw Score : 18 CHARLENE EWING OTR/Cherry 03/31/2019 13:59 EDT Image 3 - Images currently included in the form version of this document have not been included in the text rendition version of the form. Activity Tolerance, OT Activity Comment : GOOD CHARLENE EWING OTR/Cherry 03/31/2019 13:59 EDT Cognition Assessment, OT Orientation : Oriented x 4 CHARLENE EWING OTR/L - 03/31/2019 13:59 EDT Education OT Occupational Therapy Education Grid Activity of Daily Living Training : Verbalizes understanding, Returns demonstration, Needs further teaching Functional Mobility Training : Verbalizes understanding, Returns demonstration, Needs further teaching Role of Occupational Therapy : Verbalizes understanding CHARLENE EWING OTR/Cherry - 03/31/2019 13:59 EDT Indication Assessment, OT Occupational Therapy Indicated : Yes Problem List, OT : Impaired, bed mobility, Impaired, activities daily living, Impaired functional mobility, Impaired, standing balance, Impaired, transfers Potential Barriers, OT : None evident Rehabilitation Potential, OT : Good CHARLENE EWING OTR/Cherry - 03/31/2019 13:59 EDT Plan of Care, OT OT Tx Plan/Goals Established w Patient : Yes OT Frequency Rehab : Other: 3-5 x week. OT Duration Rehab : Seven Days OT Treatments Planned : Activities of daily living, Functional mobility training, Safety education, Therapeutic activities, Therapeutic exercises Plan of Care Comment, OT : see OT POC. CHARLENE EWING OTR/Cherry 03/31/2019 13:59 EDT Usp Goals, OT Other LTG Grid Goal #1 Goal #2 Goal #3 Goal : Pt will VU of home safety and car transfer handout. Pt will complete ADL transfer with CGA, RW level. Pt will complete LB self care task with CGA, AE prn. Date to Meet : 04/06/2019 EDT 04/06/2019 EDT 04/06/2019 EDT Goal Status : Initial goal Initial goal Initial goal CHARLENE EWING OTR/Cherry - 03/31/2019 13:59 EDT CHARLENE EWING OTR/Cherry - 03/31/2019 13:59 EDT CHARLENE EWING OTR/Cherry 03/31/2019 13:59 EDT Treatment Note Subjective Comment : pt ok'd tx. Additional Objective Information : EVAL = 8 min ADL = 23 min Pt educated on ADL transfers at RW level. Pt required assist x 2 for supine>EOB>BSC>chair transfer due to Left LE buckling. Assessment : Pt is mod assist x 2 for ADL transfers and LB self care tasks. Pt to benefit from skilled OT services during in-patient stay. Plan for Treatment : Pt to be seen by skilled OT 3-5 x week. CHARLENE EWING OTR/Cherry - 03/31/2019 13:59 EDT Pain Assessment Pain Scaled Used : 0-10 Pain scale Pain Score Pre-Intervention : 0 Pain Score During-Intervention : 0 Pain Score Post-Intervention. : 0 CHARLENE EWING OTR/Cherry - 03/31/2019 13:59 EDT Image 1 - Images currently included in the form version of this document have not been included in the text rendition version of the form. Anticipated Discharge Needs, OT/PT Anticipated Discharge to : Other: to be determined. Recommend Continued Therapy at Discharge : Yes CHARLENE EWING OTR/Cherry - 03/31/2019 13:59 EDT [place] OT Charges OT Selfcare/Hm Mgmt Ea 15 Min : 2 OT Eval Low Complexity : 1 CHARLENE EWING OTR/Cherry - 03/31/2019 13:59 EDT Electronically signed by Алекснадр [facility] Conversion Beauty Parlor Cleaner Cerner at 11/21/2022 4:00 PM CDT documented in this encounter Plan of Treatment Not on file documented as of this encounter Visit Diagnoses Not on filedocumented in this encounter
--- OUTSIDE RECORDS SUMMARY | 2025-06-15 10:01 | XMS_ITS | Encounter Summary ---
Author Organization [facility] ([place], [place], [place], [place], [place]) Address [address] [place] [address] Care Team Providers Care Belt Loop Machine Operator Name Role Phone Unavailable Primary Care Provider Unavailabl e Encounter Details Date Type Department Care Team (Late st Contact Info) Description 03/31/2019 Transcribed Document [facility] [place] Family Medicine [facility] [place] [place] [address] ProviderSb MD [address] [place] [address] Social History Tobacco Use Types Packs/Day Years Used Date Smoking Tobacco: Never Assessed Comments Unknown Sex and Gender Information Value Date Recorded Sex Assigned at Not on file Legal Sex Female 1:50 PM CDT Gender Identity Not on file Sexual Orientation Not on file documented as of this encounter Miscellaneous Notes * Cerner Conversion Note - Historical ProviderMD - 03/31/2019 10:40 AM CDT Pain Assessment Entered On: 04/03/2019 0:09 EDT Performed On: 04/02/2019 20:50 EDT by ISAIAS BOLTON, Ski Patrol Officer-Nursing Intervention Information: HYDROmorphone Performed by ISAIAS BOLTON, Ski Patrol Officer-Nursing on 04/02/2019 20:20:00 EDT HYDROmorphone,0.5mg IV Push,Peripheral Line 1,Pain (Severe 7-10) Pain Assessment Pain Assessment : Follow-up assessment Pain Scale Goal : 4 Pain Intervention, Drug : Medicated Pain Improved by Intervention : Yes ISAIAS BOLTON, Ski Patrol Officer-Nursing - 04/03/2019 0:08 EDT documented in this encounter Plan of Treatment Not on file documented as of this encounter Visit Diagnoses Not on filedocumented in this encounter
--- OUTSIDE RECORDS SUMMARY | 2025-06-15 10:01 | XMS_ITS | Encounter Summary ---
Author Organization [employer] ([place], [place], [place], [place], [place]) Address [address] [place] [address] Care Team Providers Care Small Machine Bindery Operator Name Role Phone Unavailable Primary Care Provider Unavailabl e Encounter Details Date Type Department Care Team (Late st Contact Info) Description 04/02/2019 Transcribed Document [facility] [place] [facility] [place] [address] ProviderSb MD [address] [place] [address] Social History Tobacco Use Types Packs/Day Years Used Date Smoking Tobacco: Never Assessed Comments Unknown Sex and Gender Information Value Date Recorded Sex Assigned at Not on file Legal Sex Female 1:50 PM CDT Gender Identity Not on file Sexual Orientation Not on file documented as of this encounter Miscellaneous Notes * Cerner Conversion Note - Sb Man MD - 04/02/2019 5:34 PM CDT Patient: SHARONDA GEORGE Age: 74 years Sex: Female : 1945 Associated Diagnoses: Hip pain, left; Unilateral primary osteoarthritis, left hip; Status post total hip replacement, left; Aortic stenosis; HTN; Panic attacks; At risk for sleep apnea; Obesity (BMI 30.0-34.9); Fever; Hypoxemia Author: NATALIE NICHOLS MD-INT Basic Information awake alert ???Complaining low-grade fever ???Has hypoxemia and on 4 L of oxygen ???Elevated d-dimer ???Negative lower extremity venous Doppler ???CTA of the chest with PE protocol in progress ???Patient stated that she doesn't feel well and buckling or walking with PT/OT ???Patient is a high for risk ???Unsteady and needed rehabilitation/fpc facility Review of Systems Constitutional: No fever, No [...] mL inj 40 mg 0.4 mL, SubCutaneous, [id number] folic acid 1 mg tab 1 mg [...] Oral, Daily phenol 1.4% throat spray 5 [place], Oral, Q2H promethazine 25 mg tab 12.5 [...] Panic attacks Physical Examination VS/Measurements Vital Measurements 04/02/2019 14:00 EDT Systolic Blood Pressure 95 mmHg Diastolic Blood Pressure 51 mmHg LOW Mean Arterial Pressure (MAP)-BMDI 61 Temperature Source Oral Temperature Mode Fahrenheit Temperature, Fahrenheit 99.9 Deg F HI Clinical Temperature, C 37.7 Deg C Heart Rate Monitored 125 bpm HI Respiratory Rate 18 Breaths/Min Oxygen Saturation 95 % Oxygen Therapy Mode Room air 04/02/2019 10:00 EDT Systolic Blood Pressure 113 mmHg Diastolic Blood Pressure 49 mmHg LOW Mean Arterial Pressure (MAP)-BMDI 65 Temperature Source Oral Temperature Mode Fahrenheit Temperature, Fahrenheit 99.7 Deg F Clinical Temperature, C 37.6 Deg C Heart Rate Monitored 120 bpm HI Respiratory Rate 18 Breaths/Min Oxygen Saturation 95 % Oxygen Therapy Mode Room air 04/02/2019 5:51 EDT Systolic Blood Pressure 92 mmHg Diastolic Blood Pressure 43 mmHg LOW Mean Arterial Pressure (MAP)-BMDI 55 Temperature Source Oral Temperature Mode Fahrenheit Temperature, Fahrenheit 100.3 Deg F HI Clinical Temperature, C 37.9 Deg C Heart Rate Monitored 99 bpm Oxygen Saturation 90 % LOW General: Alert and oriented, No [...] Medical. Obesity (BMI 30.0-34.9) - Admitting, Medical. Fever - Admitting, Medical. Hypoxemia - Admitting, Medical. Course: Plan/ cont. current care, pt/ot, encourage oral fluid intake, nutritional support, encourage use of respirometer, motoring blood pressure, renal function, blood glucose, and urine output. -DVT prophylaxis -On oxygen nasal cannula -We'll follow on CTA results of the chest -Needs rehabilitation/fpc facility. Electronically signed by Vinita Fountain Conversion Customer Advisor Specialist Cerner at 11/21/2022 4:27 PM CDT documented in this encounter Plan of Treatment Not on file documented as of this encounter Visit Diagnoses Not on filedocumented in this encounter
--- OUTSIDE RECORDS SUMMARY | 2025-06-15 10:01 | XMS_ITS | Encounter Summary ---
Author Organization [employer] ([place], [place], [place], [place], [place]) Address [address] [place] [address] Care Team Providers Care Social Worker Psychiatric Name Role Phone Unavailable Primary Care Provider Unavailabl e Encounter Details Date Type Department Care Team (Late st Contact Info) Description 03/19/2019 Transcribed Document [facility] [place] [facility] [place] [address] ProviderSb MD [address] [place] [address] Social History Tobacco Use Types Packs/Day Years Used Date Smoking Tobacco: Never Assessed Comments Unknown Sex and Gender Information Value Date Recorded Sex Assigned at Not on file Legal Sex Female 1:50 PM CDT Gender Identity Not on file Sexual Orientation Not on file documented as of this encounter Miscellaneous Notes * Cerner Conversion Note - Sb ProviderMD - 03/19/2019 11:55 AM CDT UM Authorization Entered On: 03/19/2019 11:56 EDT Performed On: 03/19/2019 11:55 EDT by MANUEL HAMPTON RN-Utilization Review Primary Insurance Authorization Authorization and Policy Numbers : Insurance 1 Health Plan: [employer] PPO Policy Number: [id number] Authorization Number: Insurance Primary Name : [employer] PPO Policy Number: [id number] Authorization Status-Primary : Notification only Authorization Number-Primary : [id number] Authorized Service Begin Date-Primary : 03/31/2019 EDT Authorization Comments-Primary : [employer] PPO approved per availity for inpt -- must fax clinicals Historical Authorization Comments-Primary : No Authorization Comments Found MANUEL HAMPTON RN-Utilization Review - 03/19/2019 11:55 EDT documented in this encounter Plan of Treatment Not on file documented as of this encounter Visit Diagnoses Not on filedocumented in this encounter
--- OUTSIDE RECORDS SUMMARY | 2025-06-15 10:01 | XMS_ITS | Encounter Summary ---
Author Organization [employer] ([place], [place], [place], [place], [place]) Address [address] [place] [address] Care Team Providers Care Formation Testing Operator Name Role Phone Unavailable Primary Care Provider Unavailabl e Encounter Details Date Type Department Care Team (Late st Contact Info) Description 04/03/[address] [facility] [place] Medicine [place] [address] ProviderSb MD [address] [place] [address] Social History Tobacco Use Types Packs/Day [...] Sb ProviderMD - 04/03/2019 3:08 PM CDT Nursing Discharge Summary Entered On: 04/03/2019 15:08 EDT Performed On: 04/03/2019 15:08 EDT by Giuliana Munroe, corrections caseworker Documentation Patient Disposition, General : Discharge Discharge To : Home with ambulatory/outpatient follow-up Giuliana Munroe RN - 04/03/2019 15:08 EDT Electronically signed by Vinita Fountain Conversion Assistant Store Manager [employer] at 11/21/2022 4:01 PM CDT documented in this encounter Plan of Treatment Not on file documented as of this encounter Visit Diagnoses Not on filedocumented in this encounter
--- OUTSIDE RECORDS SUMMARY | 2025-06-15 10:01 | XMS_ITS | Encounter Summary ---
Author Organization [employer] ([place], [place], [place], [place], [place]) Address [address] [place] [address] Care Team Providers Care Meat And Seafood Manager Name Role Phone Unavailable Primary Care Provider Unavailabl e Encounter Details Date Type Department Care Team (Late st Contact Info) Description 04/01/2019 Transcribed Document [facility] [place] [facility] [place] [address] ProviderSb MD [address] [place] [address] Social History Tobacco Use Types Packs/Day Years Used Date Smoking Tobacco: Never Assessed Comments Unknown Sex and Gender Information Value Date Recorded Sex Assigned at Not on file Legal Sex Female 1:50 PM CDT Gender Identity Not on file Sexual Orientation Not on file documented as of this encounter Miscellaneous Notes * Cerner Conversion Note - Sb ProviderMD - 04/01/2019 5:00 AM CDT Chart Check - Review Order Profile Entered On: 04/01/2019 3:55 EDT Performed On: 04/01/2019 5:00 EDT by Sonny Jeong RN Chart Check Powerplans Initiated/Discontinued as Appropriate : Yes All Active Orders Reviewed : Yes Sonny Jeong RN - 04/01/2019 3:54 EDT documented in this encounter Plan of Treatment Not on file documented as of this encounter Visit Diagnoses Not on filedocumented in this encounter
--- OUTSIDE RECORDS SUMMARY | 2025-06-15 10:01 | XMS_ITS | Encounter Summary ---
Author Organization [employer] ([place], [place], [place], [place], [place]) Address [address] [place] [address] Care Team Providers Care Executive Director Sheltered Workshop Name Role Phone Unavailable Primary Care Provider Unavailabl e Encounter Details Date Type Department Care Team (Late st Contact Info) Description 04/02/2019 Transcribed Document [facility] [place] [facility] [place] [address] ProviderSb MD [address] [place] [address] Social History Tobacco Use Types Packs/Day Years Used Date Smoking Tobacco: Never Assessed Comments Unknown Sex and Gender Information Value Date Recorded Sex Assigned at Not on file Legal Sex Female 1:50 PM CDT Gender Identity Not on file Sexual Orientation Not on file documented as of this encounter Miscellaneous Notes * Cerner Conversion Note - Sb ProviderMD - 04/02/2019 2:20 PM CDT On Going Discharge Planning Entered On: 04/02/2019 14:20 EDT Performed On: 04/02/2019 14:20 EDT by DAHIANA ROY, Care Management-Meat Butcher Care Management Progress Note Discharge Arrangements : Patient Post-Acute Information Patient Name: SHARONDA HAYWARD Gender: Female : [birth year] Age: 74 Years No Post-Acute Placement(s) Listed No Post-Acute Service(s) Listed No [place] Referral(s) Listed Discharge Options Discussed with Patient : DME, Home Health DAHIANA ROY, Care Management-Meat Butcher - 04/02/2019 14:20 EDT Narrative Progress Note Narrative Progress Note : [facility] has availability on SRU on pending precert DAHIANA ROY, Care Management-Meat Butcher - 04/02/2019 14:20 EDT Electronically signed by Александр [employer] Conversion Store Grocery Merchandiser [employer] at 11/21/2022 4:03 PM CDT documented in this encounter Plan of Treatment Not on file documented as of this encounter Visit Diagnoses Not on filedocumented in this encounter
--- OUTSIDE RECORDS SUMMARY | 2025-06-15 10:01 | XMS_ITS | Encounter Summary ---
Author Organization [employer] ([place], [place], [place], [place], [place]) Address [address] [place] [address] Care Team Providers Care Regional Transportation Manager Name Role Phone Unavailable Primary Care Provider Unavailabl e Encounter Details Date Type Department Care Team (Late st Contact Info) Description 04/02/2019 Transcribed Document [facility] [place] Family Medicine [address] [place] [address] ProviderSb MD [address] [place] [address] Social History Tobacco Use Types Packs/Day Years Used Date Smoking Tobacco: Never Assessed Comments Unknown Sex and Gender Information Value Date Recorded Sex Assigned at Not on file Legal Sex Female 1:50 PM CDT Gender Identity Not on file Sexual Orientation Not on file documented as of this encounter Miscellaneous Notes * Cerner Conversion Note - Sb ProviderMD - 04/02/2019 5:00 AM CDT Chart Check - Review Order Profile Entered On: 04/02/2019 3:43 EDT Performed On: 04/02/2019 5:00 EDT by Sonny Jeong RN Chart Check Powerplans Initiated/Discontinued as Appropriate : Yes All Active Orders Reviewed : Yes Sonny Jeong RN - 04/02/2019 3:43 EDT Electronically signed by Vinita Fountain Conversion Psychiatric Security Nurse [employer] at 11/21/2022 4:04 PM CDT documented in this encounter Plan of Treatment Not on file documented as of this encounter Visit Diagnoses Not on filedocumented in this encounter
--- OUTSIDE RECORDS SUMMARY | 2025-06-15 10:01 | XMS_ITS | Encounter Summary ---
Author Organization [employer] ([place], [place], [place], [place], [place]) Address [address] [place] [address] Care Team Providers Care Senior Field Engineer Name Role Phone Unavailable Primary Care Provider Unavailabl e Encounter Details Date Type Department Care Team (Late st Contact Info) Description 04/02/2019 Transcribed Document [facility] [place] Family Medicine [address] [place] [address] ProviderSb MD [facility] [place] [address] Social History Tobacco Use Types Packs/Day Years Used Date Smoking Tobacco: Never Assessed Comments Unknown Sex and Gender Information Value Date Recorded Sex Assigned at Not on file Legal Sex Female 1:50 PM CDT Gender Identity Not on file Sexual Orientation Not on file documented as of this encounter Miscellaneous Notes * Cerner Conversion Note - Sb ProviderMD - 04/02/2019 7:43 PM CDT Event Note Entered On: 04/02/2019 19:45 EDT Performed On: 04/02/2019 19:43 EDT by Roberta Lange, Rn Event Note Event Location : Assigned room Description of Event : automotive glass technician called this nurse and said that pt refused the CTA of chest, stated that she is allergic to contrast. Dr. Gamez notified. Pt also refused to take her bowel regimen today. Roberta Lange, Rn - 04/02/2019 19:43 EDT Electronically signed by Александр [facility] Conversion Strategic Planning Director Cerner at 11/21/2022 4:07 PM CDT documented in this encounter Plan of Treatment Not on file documented as of this encounter Visit Diagnoses Not on filedocumented in this encounter
--- OUTSIDE RECORDS SUMMARY | 2025-06-15 10:01 | XMS_ITS | Encounter Summary ---
Author Organization [employer] ([place], [place], [place], [place], [place]) Address [address] [place] [address] Care Team Providers Care Unit Operator Name Role Phone Unavailable Primary Care Provider Unavailabl e Encounter Details Date Type Department Care Team (Late st Contact Info) Description 03/13/2019 Transcribed Document [facility] [place] Medicine [facility] [place] [address] ProviderSb MD [address] [place] [address] Social History Tobacco Use Types Packs/Day Years Used Date Smoking Tobacco: Never Assessed Comments Unknown Sex and Gender Information Value Date Recorded Sex Assigned at Not on file Legal Sex Female 1:50 PM CDT Gender Identity Not on file Sexual Orientation Not on file documented as of this encounter Miscellaneous Notes * [employer] Conversion Note - Sb ProviderMD - 03/13/2019 1:47 PM CDT PAT Adult Entered On: 03/13/2019 13:53 EDT Performed On: 03/13/2019 13:47 EDT by Kassidy Morgan RN Vital Measurements Temperature Source : Temporal artery scanning Temperature Mode : Fahrenheit Temperature, Fahrenheit : 98 Deg F Clinical Temperature, C : 36.7 Deg C Pulse Method : Non-Invasive BP Device Pulse Source : Radial, Left Peripheral Pulse Rate : 90 bpm Pulse Rhythm : Regular Respiratory Rate : 16 Breaths/Min Blood Pressure Location : Arm, left upper Blood Pressure Source : Non-Invasive BP Device Blood Pressure Position : Sitting Systolic Blood Pressure : 134 mmHg Diastolic Blood Pressure : 60 mmHg Oxygen Saturation : 96 % Oxygen Therapy Mode : Room air Kassidy Morgan RN - 03/13/2019 13:47 EDT Height and Weight, Clinical Dosing Height Source : Measured Height Entry Format : [place] Height, Feet : 5 ft(Converted to: 152 cm, 60 Inch) Height, Inches : 1 Inch(Converted to: 0 ft 1 Inch, 2.54 cm) Clinical Height : 154.94 cm Weight Source : Standing scale Weight Entry Format : [place] Clinical Dosing Weight : 82.27 kg Weight, Pounds : 181 lb Body Surface Area (BSA) : 1.81 m2 Body Mass Index : 34.3 kg/m2 (HI) [place] Body Weight : 47 kg Kassidy Morgan RN - 03/13/2019 13:47 EDT Health Histories Smoking Status : Other: stopped 14 yrs ago Smokeless Tobacco Status : Never Kassidy Morgan RN - 03/13/2019 13:47 EDT Social History (As Of: 03/13/2019 13:53:38 EDT) Tobacco: Use in Last 12 Months: No. (Last Updated: 02/24/2015 20:11:38 EDT by JEREMY REECE RN) stopped 14 yrs ago Smoking Status. Never [...] Region : No Tuberculosis Symptoms : None Kassidy Morgan RN - 03/13/2019 13:47 EDT Anesthesia/Transfusion History Family History of Anesthesia Reaction : Prior transfusion without reaction Transfusion History : Prior anesthesia without reaction Family History of Anesthesia Reaction : None Kassidy Morgan RN - 03/13/2019 13:47 EDT Functional Assessment Functional ADL Evaluation Index EBN Bathing : Independent (2) Dressing : Independent (2) Toileting : Independent (2) Transferring Bed or Chair : Independent (2) Continence : Independent (2) Feeding : Independent (2) Kassidy Morgan RN - 03/13/2019 13:47 EDT ADL Index Score : 12 Kassidy Morgan RN - 03/13/2019 13:47 EDT Advance Directive Patient has Advance Directive *Q : Yes, Advance Directive not with the patient Advance Directive Type : Living will Copy Advance Directive Verified/on Chart : No Kassidy Morgan RN - 03/13/2019 13:47 EDT Psychosocial History Currently in Unsafe Situation : No Tried to Harm Yourself in the Past? : No Thoughts of Harming/Killing Yourself : No Kassidy Morgan RN - 03/13/2019 13:47 EDT Teaching/Learning Assessment Barriers To Learning : None evident Individuals Taught : Patient, Spouse Readiness to Learn : Cooperative Highest Level of Education : None Baseline Knowledge of Topic : Limited Readiness to Learn : Explanation, Printed materials Learning Style Preferences Patient : None Kassidy Morgan RN - 03/13/2019 13:47 EDT Education Topics, Periop Preadmission Perioperative Education Grid CAUTI : Verbalizes understanding IV's : Verbalizes understanding NPO Status/Directions : Verbalizes understanding Pain Management : Verbalizes understanding Postoperative Care Preparations : Verbalizes understanding Preprocedure Preparations : Verbalizes understanding Preprocedure Tests/Labs : Verbalizes understanding Remove Body Piercings : Verbalizes understanding Responsible Adult : Verbalizes understanding Take/Hold Medications Pre-Procedure : Verbalizes understanding Kassidy Morgan RN - 03/13/2019 13:47 EDT General Info Support Person/Pt Rep Name : vijay Vasquez Family/Rep/Phys Notified of Admit : No Emergency Contact #1 : Vijay Hayward Emergency Contact #1 Emergency Contact #1 Relationship : spouse Emergency Contact #2 : . Emergency Contact #2 Phone Number : . Emergency Contact #2 Relationship : . Primary Language : Azeri Communication Barrier : None Kassidy Morgan RN - 03/13/2019 13:47 EDT Dorian Scale Dorian Sensory Perception : Slightly limited Dorian Moisture : Occasionally moist Dorian Activity : Chairfast Dorian Mobility : Very limited Dorian Nutrition : Adequate Dorian Friction and Shear : Potential problem Dorian Score : 15 Kassidy Morgan RN - 03/13/2019 13:47 EDT Sleep Apnea Risk Assmt Hx of Obstructive Sleep Apnea Diagnosis : No Snore Loudly : Yes Tired, Fatigued, or Sleepy During Day : Yes Observed Stopping Breathing During Sleep : No Have/Are Being Treated for Hypertension : Yes BMI Greater Than 35 kg/m2 : No Age over 50 Years Old : Yes Gender Male : No Kassidy Morgan RN - 03/13/2019 13:47 EDT documented in this encounter Plan of Treatment Not on file documented as of this encounter Visit Diagnoses Not on filedocumented in this encounter
--- OUTSIDE RECORDS SUMMARY | 2025-06-15 10:01 | XMS_ITS | Encounter Summary ---
Author Organization [employer] ([place], [place], [place], [place], [place]) Address [address] [place] [address] Care Team Providers Care Card Hand Name Role Phone Unavailable Primary Care Provider Unavailabl e Encounter Details Date Type Department Care Team (Late st Contact Info) Description 03/13/2019 Transcribed Document [facility] [place] [facility] [place] [address] ProviderSb MD [address] [place] [id number] Social History Tobacco Use Types Packs/Day Years Used Date Smoking Tobacco: Never Assessed Comments Unknown Sex and Gender Information Value Date Recorded Sex Assigned at Not on file Legal Sex Female 1:50 PM CDT Gender Identity Not on file Sexual Orientation Not on file documented as of this encounter Miscellaneous Notes * Cerner Conversion Note - Sb ProviderMD - 03/13/2019 10:18 AM CDT Patient: SHARONDA HAYWARD Age: 73 Years Sex: Female : 1945 Chief Complaint Left Hip Pain Primary Care Provider Adrián Arnett History of Present Illness This patient is a pleasant 73 yo WF who presents with left hip pain. The pain has been going on for a year but has gotten progressively worse. She describes it as a sharp pain. It is now to the point that it is affecting her ADLs. She has tried NSAIDs and injections without relief of her pain. She has not fallen. She has used a cane as an assistive device. 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 Pt was offered a Left Total Hip Arthroplasty via Anterior Approach and agreed to the procedure. Pt denies a h/o DVT/PE. No trouble with anesthesia in the past. No respiratory conditions including COPD/LAURA/asthma. Review of Systems Constitutional: Neg for fevers or chills. Eyes: Neg for blurry vision or change in vision. ENT: Neg for sore throat, ear pain, or dizziness. Cardiac: Neg for chest pain or dyspnea on exertion. Respiratory: Neg for shortness of breath. Gastrointestinal: Neg for nausea, vomiting, diarrhea, or constipation. Musculoskeletal: Pos for left hip pain. Neurologic: Neg for headaches or seizures. Psychiatric: Neg for anxiety and depression. Integumentary: Neg for rash. Vital Signs T: 36.7 ??C HR: 90(Peripheral) RR: 16 BP: 134/60 SpO2: 96% HT: 154.94 cm WT: 82.27 kg BMI: 34.3 Oxygen Settings (Last) Oxygen Therapy Mode: Room air (03/13/19 13:47:00) Physical Exam Constitutional: This is a pleasant 73 yo WF in no acute distress. HEENT: Normocephalic, atraumatic. PEERLA. Extraocular muscles intact. Conjunctiva pink without exudate. Oropharynx pink and moist. Neck supple. No JVD. Cardiac: SI, S2. RRR. No M/R/G. Respiratory: Lungs CTA bilaterally. No wheezes, rales, or rhonchi. Abdomen: Soft, nontender, nondistended. Active bowel sounds. No visible masses. Musculoskeletal: Bilateral LE without clubbing, cyanosis or edema. Integumentary: Skin is pink, warm and dry. No rashes. Neurologic: CN II-XII grossly intact. Psychiatric: Judgment and affect appropriate. Assessment/Plan 1. Preoperative Evaluation- Pt underwent preoperative laboratory workup and diagnostic studies. 2. Left Hip Pain secondary to DJD- Proceed with surgery as scheduled with Dr Rubio on 03/31/2019. 3. Hypertension- Continue HCTZ/Lisinopril and Metoprolol. 4. Hyperlipidemia- Continue Atorvastatin. 5. HRT- Pt advised to hold HRT 7 days prior to surgery. 6. Anxiety- Continue Clonazepam. 7. GERD- Continue Omeprazole. 8. CAD- Pt received cardiac clearance from [facility]. Problem List/Past Medical History Ongoing Aortic stenosis Constipation Cystitis, interstitial HTN Panic attacks Procedure/Surgical History appendectomy, bilateral cataract, Bilateral RCR, cardiac cath with one stint 2016, carpal tunnel right wrist, child x2, Gall bladder, Hysterectomy, Lumbar Fsuion, vaginal prolapse repair. Home Medications (14) Active aspirin 81 mg oral tablet 81 mg = 1 Tab, Oral, Daily atorvastatin 20 mg oral tablet 20 mg = 1 Tab, Oral, Daily Benadryl 25 mg oral tablet 50 mg = 2 Tab, Oral, At Bedtime clonazePAM 0.5 mg oral tablet 0.5 mg = 1 Tab, Oral, BID docusate 50 mg, Oral, BID Estrace 1 mg oral tablet 1 mg = 1 Tab, Oral, Daily folic acid 0.4 mg oral tablet 0.4 mg = 1 Tab, Oral, Daily hydroCHLOROthiazide-lisinopril 12.5 mg-20 mg oral tablet 1 Tab, Oral, Daily Klor-Con M20 1 Tab, Oral, Daily Linzess 290 mcg oral capsule 290 mcg = 1 Cap, Oral, Daily lipoflavanoid 1 Tab, Oral, BID Metoprolol Succinate ER 50 mg, Oral, Daily omeprazole 20 mg, Oral, Daily tramadol 50 mg oral tablet 50 mg = 1 Tab, PRN, Oral, Q12H Allergies Adhesive Bandage (O/E - erythematous rash) Betadine (severe rash) Uncoded Allergy (See Comment) (hibicleanse) cephalexin (Shortness of breath, Hives, Hives~Shortness of breath) pt states had severe itching from skin prep that was used on back during back surgery in 2002 Social History Alcohol Alcohol Use History No. Substance Abuse Drug Use Hx: No. Tobacco stopped 14 yrs ago Smoking Status. Never Smokeless Tobacco Status. Use in Last 12 Months: No. Family History Pt mother at 75 from TB. Pt father from surgical complications at 28. Diagnostic Results EKG- NSR, 76 CXR- Stable Exam. Lab Results Test Name Test Result Date/Time Sodium Level 140 mmol/L 03/13/2019 13:57 EDT Potassium Level 4.2 mmol/L 03/13/2019 13:57 EDT Chloride Level 103 mmol/L 03/13/2019 13:57 EDT Carbon Dioxide Level 31 mmol/L 03/13/2019 13:57 EDT Anion Gap 10 03/13/2019 13:57 EDT Glucose Level 77 mg/dL 03/13/2019 13:57 EDT Blood Urea Nitrogen 14 mg/dL 03/13/2019 13:57 EDT Creatinine Level 0.77 mg/dL 03/13/2019 13:57 EDT eGFR >60 mL/min/1.73m2 03/13/2019 13:57 EDT eGFR NonAfrican >60 mL/min/1.73m2 03/13/2019 13:57 EDT Bun/Creatinine 18.2 03/13/2019 13:57 EDT Calcium Level 9.6 mg/dL 03/13/2019 13:57 EDT Protein Total 6.7 Gram/dL 03/13/2019 13:57 EDT Albumin Level 3.4 Gram/dL 03/13/2019 13:57 EDT Globulin 3.3 Gram/dL 03/13/2019 13:57 EDT A/G Ratio 1.0 (Low) 03/13/2019 13:57 EDT Bilirubin Total 0.2 mg/dL 03/13/2019 13:57 EDT Alk Phos 88 Units/Liter 03/13/2019 13:57 EDT AST 18 Units/Liter 03/13/2019 13:57 EDT ALT 24 Units/Liter 03/13/2019 13:57 EDT Hgb A1C 5.80 % 03/13/2019 13:57 EDT eAVG Glucose 120 mg/dL 03/13/2019 13:57 EDT WBC 10.5 K/uL (High) 03/13/2019 13:57 EDT RBC 4.20 Million/uL 03/13/2019 13:57 EDT Hgb 13.9 Gram/dL 03/13/2019 13:57 EDT Hct 41.6 % 03/13/2019 13:57 EDT MCV 99.0 fL (High) 03/13/2019 13:57 EDT MCH 33.1 pg (High) 03/13/2019 13:57 EDT MCHC 33.4 Gram/dL 03/13/2019 13:57 EDT Platelet Count 235 K/uL 03/13/2019 13:57 EDT MPV 11.4 fL 03/13/2019 13:57 EDT RDW 12.7 % 03/13/2019 13:57 EDT Neut % 70.5 % 03/13/2019 13:57 EDT Neut # 7.41 K/uL (High) 03/13/2019 13:57 EDT Lymph % 17.6 % (Low) 03/13/2019 13:57 EDT Lymph # 1.85 K/uL 03/13/2019 13:57 EDT [place] % 8.6 % 03/13/2019 13:57 EDT [place] # 0.90 K/uL (High) 03/13/2019 13:57 EDT Eos % 2.1 % 03/13/2019 13:57 EDT Eos # 0.22 K/uL 03/13/2019 13:57 EDT Baso % 0.7 % 03/13/2019 13:57 EDT Baso # 0.07 K/uL 03/13/2019 13:57 EDT Slide Review No 03/13/2019 13:57 EDT IG# 0 x10(3)/uL 03/13/2019 13:57 EDT IG% 0 % 03/13/2019 13:57 EDT PT 10.0 Second(s) 03/13/2019 13:57 EDT INR 1.0 03/13/2019 13:57 EDT PTT 25.1 Second(s) 03/13/2019 13:57 EDT Urine Type. U CleanCatch 03/13/2019 13:57 EDT Urine Color YELLOW2 03/13/2019 13:57 EDT Urine Appearance CLEAR2 03/13/2019 13:57 EDT Urine Specific [place] 1.014 03/13/2019 13:57 EDT Urine pH Dipstick 5.0 (Low) 03/13/2019 13:57 EDT Urine Leukocyte Esterase NEGATIVE2 03/13/2019 13:57 EDT Urine Nitrite NEGATIVE2 03/13/2019 13:57 EDT Urine Protein Dipstick NEGATIVE2 03/13/2019 13:57 EDT Urine Glucose Dipstick NEGATIVE2 03/13/2019 13:57 EDT Urine Ketones Dipstick NEGATIVE2 03/13/2019 13:57 EDT Urine Urobilinogen Dipstick 0.2 03/13/2019 13:57 EDT Urine Bilirubin Dipstick NEGATIVE2 03/13/2019 13:57 EDT Urine Blood Dipstick NEGATIVE2 03/13/2019 13:57 EDT Ur RBC 0-2 (Abnormal) 03/13/2019 13:57 EDT Ur WBC 0-2 03/13/2019 13:57 EDT Ur Bacteria 1+ (Abnormal) 03/13/2019 13:57 EDT Ur Amorph 1+ (Abnormal) 03/13/2019 13:57 EDT Ur Epithelial Cells 2-5 (Abnormal) 03/13/2019 13:57 EDT Electronically signed by Александр, V[place]a Conversion Supervisor [employer] Cerner at 11/21/2022 4:05 PM CDT documented in this encounter Plan of Treatment Not on file documented as of this encounter Visit Diagnoses Not on filedocumented in this encounter"
--- OUTSIDE RECORDS SUMMARY | 2025-06-15 10:01 | XMS_ITS | Encounter Summary ---
Author Organization [employer] ([place], [place], [place], [place], [place]) Address [address] [place] [address] Care Team Providers Care Fertilizer Processing Supervisor Name Role Phone Unavailable Primary Care Provider Unavailabl e Encounter Details Date Type Department Care Team (Late st Contact Info) Description 04/03/2019 Transcribed Document [facility] [place] Family Medicine [facility] [place] [address] ProviderSb MD [address] [place] [address] Social History Tobacco Use Types Packs/Day Years Used Date Smoking Tobacco: Never Assessed Comments Unknown Sex and Gender Information Value Date Recorded Sex Assigned at Not on file Legal Sex Female 1:50 PM CDT Gender Identity Not on file Sexual Orientation Not on file documented as of this encounter Miscellaneous Notes * Cerner Conversion Note - Sb ProviderMD - 04/03/2019 4:25 PM CDT Discharge Summary, PT Entered On: 04/03/2019 16:26 EDT Performed On: 04/03/2019 16:25 EDT by LEEANN BALL, PT Discharge Summary Reason for Discharge : Discharged from hospital Discharged to, Therapy : Unit, rehabilitation Discharge Summary Comment, PT : Patient met 4/5 acute PT goals Mod A with bed mobility CGA with transfers Ambulated 150' with RWx CGA GATO HEP A/AROM x 20 reps D/C to [facility] for continued care and rehab on 04/03/19. LEEANN BALL, PT - 04/03/2019 16:25 EDT [facility] Goals Other PT LTG Grid Goal #1 [...] 04/04/2019 EDT 04/04/2019 EDT Goal Status : Goal met Not met Goal met Goal met Date Met : 04/03/2019 EDT 04/02/2019 EDT 04/03/2019 EDT LEEANN BALL, PT - 04/03/2019 16:25 EDT LEEANN BALL, PT - 04/03/2019 16:25 EDT LEEANN BALL, PT - 04/03/2019 16:25 EDT LEEANN BALL, PT - 04/03/2019 16:25 EDT Goal #5 Other : Pt will be able to transfer sit<>stand consistently with min assist x1 to ease caregiver burden Date to Meet : 04/04/2019 EDT Goal Status : Goal met Date Met : 04/02/2019 EDT LEEANN BALL, PT - 04/03/2019 16:25 EDT Electronically signed by Vinita Fountain Conversion Steam And Power Supervisor Fernando at 11/21/2022 4:00 PM CDT documented in this encounter Plan of Treatment Not on file documented as of this encounter Visit Diagnoses Not on filedocumented in this encounter
--- OUTSIDE RECORDS SUMMARY | 2025-06-15 10:01 | XMS_ITS | Encounter Summary ---
Author Organization [employer] ([place], [place], [place], [place], [place]) Address [address] [place] [address] Care Team Providers Care Vegetable Vendor Name Role Phone Unavailable Primary Care Provider Unavailabl e Encounter Details Date Type Department Care Team (Late st Contact Info) Description 04/02/2019 Transcribed Document [facility] [place] [facility] [place] [address] ProviderSb MD [facility] [address] Social History Tobacco Use Types Packs/Day Years Used Date Smoking Tobacco: Never Assessed Comments Unknown Sex and Gender Information Value Date Recorded Sex Assigned at Not on file Legal Sex Female 1:50 PM CDT Gender Identity Not on file Sexual Orientation Not on file documented as of this encounter Miscellaneous Notes * [employer]ner Conversion Note - Historical ProviderMD - 04/02/2019 2:00 AM CDT Information Technology Consultant Details Entered On: 04/02/2019 3:43 EDT Performed On: 04/02/2019 2:00 EDT by Sonny Jeong RN Order Details Transport Mode Order Detail : Wheelchair Isolation Precautions Order Detail : Standard Precautions Order Detail : N/A IV Order Detail : 1 Oxygen Order Detail : 0 Nurse Collect Order Detail : 0 Lift/Transfer : Moderate assist Central Line Order Detail : No Room Service : Appropriate Arterial Line : No Sonny Jeong RN - 04/02/2019 3:43 EDT Electronically signed by Vinita Fountain Conversion All Around Gear Machine Operator Fernando at 11/21/2022 4:11 PM CDT documented in this encounter Plan of Treatment Not on file documented as of this encounter Visit Diagnoses Not on filedocumented in this encounter
--- OUTSIDE RECORDS SUMMARY | 2025-06-15 10:01 | XMS_ITS | Encounter Summary ---
Author Organization [employer] ([place], [place], [place], [place], [place]) Address [address] [place] [address] Care Team Providers Care Landscape Foreman Name Role Phone Unavailable Primary Care Provider Unavailabl e Encounter Details Date Type Department Care Team (Late st Contact Info) Description 04/01/2019 Transcribed Document [facility] [place] [facility] [place] [address] ProviderSb MD [address] [place] [id number] Social History Tobacco Use Types Packs/Day Years Used Date Smoking Tobacco: Never Assessed Comments Unknown Sex and Gender Information Value Date Recorded Sex Assigned at Not on file Legal Sex Female 1:50 PM CDT Gender Identity Not on file Sexual Orientation Not on file documented as of this encounter Miscellaneous Notes * [employer]ner Conversion Note - Sb Man MD - 04/01/2019 12:16 AM CDT Event Note Entered On: 04/01/2019 0:25 EDT Performed On: 04/01/2019 0:16 EDT by Sonny Jeong RN Event Note Event Date/Time : 04/01/2019 20:30 EDT Event Location : Assigned room Event Details : Nursing assessment additional narrative Description of Event : Patient confused on time. Complained that she had not seen her aid; however, aid had been to see her on rounding and asked if she needed anything. Patient called out wanting to get back to the bed. Patient stated she had been in the chair all day. I educated patient reminding her that she had been in the chair and then nurses helbed her to the bed when I came on shift and had a catheter placed. She then stated she had been in bed all day and had not been to the chair. Patient complained that she had not had a bed change or her gown changed and aid reminded her that she had just came from surgery today. Sonny Jeong RN - 04/01/2019 0:16 EDT documented in this encounter Plan of Treatment Not on file documented as of this encounter Visit Diagnoses Not on filedocumented in this encounter
--- OUTSIDE RECORDS SUMMARY | 2025-06-15 10:01 | XMS_ITS | Encounter Summary ---
Author Organization [employer] ([place], [place], [place], [place], [place]) Address [address] [place] [address] Care Team Providers Care Resin Remover Name Role Phone Unavailable Primary Care Provider Unavailabl e Encounter Details Date Type Department Care Team (Late st Contact Info) Description 04/01/2019 Transcribed Document [facility] [place] [facility] [place] [address] ProviderSb MD [address] [place] [address] Social History Tobacco Use Types Packs/Day Years Used Date Smoking Tobacco: Never Assessed Comments Unknown Sex and Gender Information Value Date Recorded Sex Assigned at Not on file Legal Sex Female 1:50 PM CDT Gender Identity Not on file Sexual Orientation Not on file documented as of this encounter Miscellaneous Notes * Cerner Conversion Note - Historical ProviderMD - 04/01/2019 6:38 AM CDT Event Note Entered On: 04/01/2019 6:39 EDT Performed On: 04/01/2019 6:38 EDT by Sonny Jeong RN Event Note Event Date/Time : 04/01/2019 6:15 EDT Event Location : Assigned room Event Details : Nursing assessment additional narrative Description of Event : Patient does not want catheter out. Stated she does not think she can get up to use the bathroom. Patient wants to speak with doctor about leaving it in today. [facility]'s [facility]. Sonny Jeong RN - 04/01/2019 6:38 EDT documented in this encounter Plan of Treatment Not on file documented as of this encounter Visit Diagnoses Not on filedocumented in this encounter
== END 2025-06-11 23:59 ==
LOC: LAB.DROPOF 06-15 09:54
PROVIDERS: PCP Internal Medicine; Visit Provider Internal Medicine
DX: I25.10 Atherosclerotic heart disease of native coronary artery without angina pectoris (principal); R41.0 Disorientation, unspecified; E78.5 Hyperlipidemia, unspecified; I10 Essential (primary) hypertension; I87.2 Venous insufficiency (chronic) (peripheral)
CPT/HCPCS: 80053; 80061; 84443; 85025; 85651

== ENCOUNTER 2025-07-03 18:43 | Emergency (ER) | payer MEDICARE, SELFPAY ==
--- OUTSIDE RECORDS SUMMARY | 2024-03-12 09:15 | XMS_ITS ---
Author Organization [facility] Address [address] [place] [address] Care Team Providers Care Medical Office Receptionist Assistant Name Role Phone Khadar Quintana Primary Care Provider Kathleen Sanderson Unavailable [phone] REASON FOR VISIT 1 wks Encounters Encounter Location Date Provider Diagnosis [address] [address] 03/12/2024 Kathleen Sanderson Plan Of Treatment No Information Progress Notes * Samara HAYWARDDOB:1945 (80 yo F)Acc No.[id number]:03/12/2024 Progress Notes Patient: Samara CASTILLO Provider: GABE Arana :1945 A ge:78 Y S ex:Female Date:03/12/2024 Address:[address] [id number] Pcp:Khadar Quintana Subjective: * Chief Complaints: * 1 . 1 wks. * Medical History: Objective: * Vitals: Assessment: Plan: * Treatment: * * Electronic signature of Janelle Sanderson APRN on 07/03/2025 at 07:00 PM EST Sign off status: Pending * Provider: GABE Arana Date: 0 03/12/2024 Generated for Printi ng/Faxing/eTransmitting on: 09/02/2024 07:00 PM EST
--- OUTSIDE RECORDS SUMMARY | 2024-03-27 11:45 | XMS_ITS ---
Author Organization [facility] Address [address] [facility] [address] [place] [address] Care Team Providers Care Helmet Hat Sweatband Puncher Name Role Phone Khadar Quintana Primary Care Provider Kathleen Sanderson Unavailable [phone] REASON FOR VISIT fever , fatigue Encounters Encounter Location Date Provider Diagnosis [facility] [address] [facility] [address] [place] [address] 03/27/2024 Kathleen Sanderson Plan Of Treatment No Information Progress Notes * Samara HAYWARDDOB:1945 (80 yo F)Acc No.[id number]:03/27/2024 Progress Notes Patient: Samara CASTILLO Provider: GABE Arana :1945 A ge:79 Y S ex:Female Date:03/27/2024 Address:[address] , [id number] Pcp:Khadar Quintana Subjective: * Chief Complaints: * 1 . Fever , fatigue. * Medical History: Objective: * Vitals: Assessment: Plan: * Treatment: * * Electronic signature of Janelle Sanderson APRN on 07/03/2025 at 06:59 PM EST Sign off status: Pending * Provider: GABE Arana Date: 0 03/27/2024 Generated for Rona robison/[place]ster/eTransmitting on: 09/02/2024 06:59 PM EST
--- OUTSIDE RECORDS SUMMARY | 2024-11-08 16:30 | XMS_ITS ---
Author Organization [facility] FISH Address [address] [place] [address] Care Team Providers Care Ornamental Plaster Sticker Name Role Phone Khadar Quintana Primary Care Provider [phone] Migration, Provider Unavailable Unavailable Allergies Allergen (clinical drug ingredient) Drug/Non Drug Allergy documented on EMR Reaction Allergy Type Onset Date Status ALL TAPE- EXCEPT PAPER TAPE (uncoded) rash Allergy Active IV DYE (uncoded) rash Allergy Act etelvina cephalexin Cephalexin tachypnea, hives Drug Allergy Active chlorhexidine Hibiclens rash Drug Allergy Act etelvina [facility] Conversion Encounter Medications Medication SIG (Take, Route, [...] Duration: 90 days 07/11/2022 Active POTASSIUM CHLORIDE ([id number] M20) 20 MEQ TAKE 1 TABLET BY [...] Active Encounters Encounter Location Date Provider Diagnosis [facility] FISH [address] [facility] [address] [place] [address] 11/08/2024 Provider Migration MONI (generalized anxiety disorder) [...] Notes * Samara HAYWARDDOB:1945 (80 yo F)Acc No.[id number]:11/08/2024 Patient: Samara CASTILLO Provider: Robles andino Migration :1945 A ge:79 Y S ex:Female Date:11/08/2024 Address:[address] [place], [id number] Pcp:Khadar Quintana Subjective: * Chief Complaints: * [...] times a day , Taking POTASSIUM CHLORIDE ([id number] M20) 20 MEQ TABLET, EXTENDED RELEASE TAKE [...] Electronic signature of Waldemar deluca Migration on 07/03/2025 at 07:01 PM EST Sign off status: Pending * Provider: Robles andino Migration Date: 0 11/08/2024 Generated for Rona robison/Chester/Sandy on: 09/02/2024 07:01 PM EST
[2025-07-03] VITALS (15 sets, daily range): BP systolic 130–155; BP diastolic 61–78; PULSE 72–82; RESP 17–18; TEMP 37; O2SAT 92–98; BMI 28.5
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
--- OUTSIDE RECORDS SUMMARY | 2025-07-03 18:59 | XMS_ITS | Encounter Summary ---
Author Organization Healthcare Address [address] [place] [address] Care Team Providers Care Construction Consultant Name Role Phone Nabeel Rios MD Primary Care Provider [phone] Encounter Details Date Type Department Care Team ([facility] Contact Info) Description 05/06/2025 Telephone Medical Office Building Obstetrics and Gynecology [address], [address] [place] [address] Angelina Carl APRN [address] [place] [address] Social History Tobacco Use Types [...] of the initial request. Best contact number: [phone] Optimal time of day to reach caller: [...] up. Will try back later. Second attempt. ALISHA Castro * Telephone Encounter - Gloria Iyer [...] call pt to r/s. Best contact number: [phone] (home) Optimal time of day to reach [...] Office Building Obstetrics and Gynecology [address], [address] [place] [address] Angelina Carl, SOFTWARE TEST SPECIALIST [address] [place] [address] documented as of this encounter Visit Diagnoses Not on filedocumented in this encounter Care Teams Construction Consultant Relationship Specialty Start Date End Date Nabeel Rios MD [address] [place] [address] PCP - General 05/06/25 documented as of this encounter
--- OUTSIDE RECORDS SUMMARY | 2025-07-03 18:59 | XMS_ITS | Data Portability ---
Author Organization [facility] Address [address] [place] [address] Care Team Providers Care Chair And Couch Maker Name Role Phone ZANE RAMSAY Primary Care Provider ZAIN RUIZ Referring Provider Assessment Encounter Date Assessment Date Assessment LastModified by Organization Details LastModified Time 05/12/2024 05/12/2024 HPI: This is a 79-year-old female with chronic low back and leg pain She is referred by Dr. English for spinal cord submitted trial, prior surgical history includes lumbar fusion in 2002. This was performed in [place]. Injection therapy in the past at the [place] [facility] with short-term benefit. No prior [...] Much of this encounter is an electronic elevator service technician/santillan slation of spoken language to printed text. [...] fusion in 2002. This was performed in [place]. Injection therapy in the past at the [place] [facility] with short-term benefit. No prior [...] HbA1c (hemoglobi n A1c), blood 2024 025 [email or web address] [facility], [facility], [address] [place] [address], [address], 5 16:08:12 methicilli n resistant staphyloco ccus aureus, culture, nasal 2024 025 [email or web address] [facility], [facility], [address] [place] [address], [address], 5 16:08:12 HbA1c (hemoglobi n A1c), blood 2023 024 [email or web address] [facility], [facility], [address] [place], [address], 4 10:41:07 methicilli n resistant staphyloco ccus aureus, culture, nasal 2023 024 [email or web address] [facility], [facility], [address] [place] [address], [place], [address], 4 07:22:[address] referral - Please eval for spinal cord stimulator . patient is requesting an in-person consult. please contact with any issues! Thank you! 2024 025 [email or web address] [facility], [address], [place], [address], 5 16:06:[address] referral 2023 024 [email or web address] [facility], [address], [place], [address], 4 10:40:08 Procedures spinal cord stimulator trial (PROC) - SCS Trial 1.) Psych: [facility] - referred 09/17/24 2.) Clearances : none 3.) Hold Meds: none 4.) Labs: A1C, MRSA [+], CBC [09/2024] *VANCO *MRI Tspine [pending scheduling ] 2024 025 [email or web address] Not available 5 16:07:13 remote therapeuti c monitoring to monitor musculoske letal system (PROC) 2024 025 [email or web address] Not available 5 16:23:42 remote therapeuti c monitoring to monitor musculoske letal system (PROC) 2023 024 [email or web address] Not available 4 08:57:18 spinal cord stimulator trial (PROC) 2023 024 [email or web address] Not available 4 10:40:59 Surgeries None recorded. Imaging MRI, thoracic spine, w/o contrast - Spinal Cord Stimulator Workup, please evaluate patency of thoracic canal for placement of percutaneo us stimulator lead, entry point T12/L1, terminatio n of tip likely T7 superior endplate [address], [address], [place], [address], 5 09:03:07 MRI, thoracic spine, w/o contrast - Spinal Cord Stimulator Workup, please evaluate patency of thoracic canal for placement of percutaneo us stimulator lead, entry point T12/L1, terminatio n of tip likely T7 superior endplate [address] ([facility]), [address], [place], [address], 4 10:14:33 Medication Orders Hibiclens 4 % topical liquid [email or web address] [place] [address] [address], [facility] [place], [address], 16:23:30 Hibiclens 4 % topical liquid 2023 025 [facility], [address] [place], [address], 15:12:39 Patient TargetsNo targets recorded. Patient Instructions Encounter Date Encounter Id Patient Instructions Last Modified By Organization Details Last Modified Time 05/12/2024 [id number] behavioral healt h screen* Not available 05/15/2024 11:30:55 Education and training for patient self-management by a qualified, nonphysician health customer care coordinator using a standardized curriculum, [id number] with the patient; individual patient* [email or web address] Not available 05/15/2024 11:31:26 spinal cord stimualtor trial information Not available 05/12/2024 16:43:57 09/04/2024 [id number] Education and training for patient self-management by a qualified, nonphysician health customer care coordinator using a standardized curriculum, [id number] with the patient; individual patient* [email or web address] Not available 10/08/2024 07:42:35 spinal cord stimualtor trial information [email or web address] Not available 09/04/2024 16:23:30 behavioral healt h screen* [email or web address] Not available 10/08/2024 07:42:35 Reason for Referral [...] Address Organization Details Recorded Time Lumbar spondylosis 222678556 Active 2023 Madeline Lagace null, [place] - [facility] 4 15:55:35 Chronic pain 97688738 Active 2023 Madeline Lagace null, [place] - [facility] 4 15:55:35 Lumbar radiculopathy 810177030 Active 2023 Madeline Lagace null, [place] - [facility] 4 15:55:35 Overweight 237570302 Active 2023 Madeline Lagace null, [place] - [facility] 4 15:55:37 Lumbar post-laminecto my syndrome 147222319 Active 2023 Madeline Lagace null, [place] - [facility] 4 16:32:20 Problem Notes None recorded. Procedures Surgical History Date Name Laterality Status Provider Name and Address Organization Details Recorded Time Appendectomy completed Tiffani Alvarado [place] - [facility] 05/08/2024 09:20:54 Carpal tunnel surgery completed Tiffani ZIMMERMAN - [facility] 05/08/2024 09:21:31 complete repair of rotator cuff completed Tiffani ZIMMERMAN - [facility] 05/08/2024 09:22:03 Hysterectomy completed Tiffani ZIMMERMAN - [facility] 05/08/2024 09:22:19 procedure on gallbladder completed Tifafni ZIMMERMAN - [facility] 05/08/2024 09:22:29 total replacement of hip completed Tiffani ZIMMERMAN - [facility] 05/08/2024 09:22:50 Imaging Results None recorded. Procedure Notes None recorded. Medical Equipment None Reported. Allergies Allergen ID Allergen Name Allergen Category Reaction Reaction Severity Criticality Documentation Date Start Date Code Code System Note Provider Name and Address Organization Details Recorded Time 982722 Bactroban medicatio n Not available Not available Not available 04/15/2024 53782 1 RxNorm Nayeli noemier ELSIE gamboa - [facility] 4 13:27:23 296635 Betadine medicatio n Not available Not available Not available 04/15/2024 81782 0 RxNorm Nayeli ELSIE dia - [facility] 4 13:27:29 744084 Keflex medicatio n Not available Not available Not available 04/15/2024 46318 7 RxNorm Nayeli ELSIE dia - [facility] 4 13:29:16 634108 nickel environme nt Not available Not available Not available 04/15/2024 08496 29 RxNorm Nayeli noemier bee, ELSIE - [facility] 4 13:29:21 Medications Name Sig Start Date [...] (BMI) Body weight Heart rate Oxygen saturation Pain severity - 0-10 verbal numeric rating [Score] - Reported Systolic And Diastolic Provider Name and Address Organization Details Last Updated DateTime 5 154.94 cm 30.2 kg/m2 91636.7 8 g 76 /min 96 % 10 138/71 mm[Hg] Fausto Kaye [facility] 5 15:11:26 Date Recorded Body height Body mass index (BMI) Body weight Heart rate Oxygen saturation Systolic And Diastolic Provider Name and Address Organization Details Last Updated DateTime 4 154.94 cm 30.2 kg/m2 86542.7 8 g 79 /min 96 % 125/76 mm[Hg] Madeline Henry [facility] 4 15:57:10 Social History Question Answer Notes LastModified by Organizat ion Details LastModified Time Tobacco Smoking Status Never Smoker Tiffani gamboa [facility] 05/08/2024 09:20:39 Do You Have An Advance Directive? Yes Information not available 05/12/2024 What Type Of Diet Are You Following? REGULAR Information not available 05/12/2024 What Is The Highest Grade Or Level Of School You Have Completed Or The Highest Degree You Have Received? [id number] Information not available 05/12/2024 Do You Have A Medical Power Of Order [place]? Yes Information not available 05/12/2024 What Was [...] Rheumatoid Arthritis N Headaches N Fibromyalgia N Autoimmune Disease N Kidney Disease N Osteoarthritis N Neurosurgery N DVT N Peptic Ulcer Disease N Anemia N Heart Attack ([place]) N Diabetes N Cardiomyopathy N Bleeding Disorder [...] ICD10 Code Diagnosis IMO Codes Diagnosis Note [id number] MD Safia HOSKINS [address] [place] [address] 05/12/2024 14:25:01 05/12/2024 17:28:44 Lumbar spondylosis 587999466 M47.816 Lumbar radiculopathy 128 577381 M54.16 Chronic pain 83061803 G8 9.29 Lumbar post-laminectomy syndrome 522807344 M96.1 [id number] OSCAR AZAR MD [place] [address] [place] [address] 09/04/2024 14:41:19 09/04/2024 15:51:07 Lumbar radiculopathy 590436280 M54.16 Chronic pain 47069849 G8 9.29 Lumbar post-laminectomy syndrome 225531250 M96.1 Health Concerns Section Related Observation LastModified by Organization Detai ls LastModified Time None Recorded Concern Status LastModified by Organization Details LastModified Time None Recorded Advance Directives Directive Y: Payers Insurance Date Sequence Insurance Name Policy Number Policy Alexander Covered Member ID Alexander Member ID Guarantor Name 09/08/2024 1 [employer] (MEDICARE REPLACEMENT/ ADVANTAGE - PPO) Samara Hayward [id number] Samara Hayward Notes Date Note Type Note Provider Name and Address Organization Details Recorded Time 05/12/20 24 text/ht ml Low back painReported by PatientHPIFor associated symptoms, patient reportsweaknessandnumbnessbut reportsno tingling,no swelling,no popping/clicking,no bowel incontinence,no urinary retention,no urinary incontinence, andno perineal paresthesia/anesthesia(after epidural she started having pain in groin area). 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 For prior pain management, patient reportsyes:([facility], heating pad helps while shes using it). For oswestry disability index (shad), patient reportsscore/date completed: (05/12/2024 60). For for female patients, patient reportsare you ? no. For medications history, (pt takes ibuprofen). Low back pain that radiates left side to foot , SHAD 60 PHQ 2 OSCAR AZAR MD [address] [place] [address], [address], [facility] 05/12/2024 16:44:02 09/04/19 25 text/ht ml Low back painReported by PatientHPIFor associated symptoms, patient reportsweaknessandnumbnessbut reportsno tingling,no swelling,no popping/clicking,no bowel incontinence,no urinary retention,no urinary incontinence, andno perineal paresthesia/anesthesia(after epidural she started having pain in groin area). 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 For alleviating factors, [...] reportsheat: effective. For prior pain management, patient reportsyes:([facility], heating pad helps while shes using it). For oswestry disability index (shad), patient reportsscore/date completed: (05/12/2024 60). For for female patients, patient reportsare you ? no. For medications history, (pt takes ibuprofen).ROS as noted in the HPI pt states she is in pain. LEFTY BERNARDO [address] [place] [address], [place], [address], [facility] 09/04/2024 16:24:01 OBGyn Episode No OBEpisode recorded.
--- OUTSIDE RECORDS SUMMARY | 2025-07-03 19:00 | XMS_ITS | Clinical Summary ---
Author Organization [employer] ([place], [place], [place], [place], [place]) Address [address] [place] [address] Care Team Providers Care Washing Machine Operator Name Role Phone Unavailable Primary [...]
--- OUTSIDE RECORDS SUMMARY | 2025-07-03 19:00 | XMS_ITS ---
Care Plan - [facility] Created on: July 03, 2025 Samara Hayward : 1945 Sex: Female Author Organization [facility] Address [address] [place] [address] Phone Care Team Providers Care Edi Manager Name Role Phone JOHNSON GONCALVES DO Primary Care Provider [phone] Adrián Swenson MD Unavailable [phone] Rafi Roberts MD Unavailable [phone]
--- OUTSIDE RECORDS SUMMARY | 2025-07-03 19:00 | XMS_ITS | Encounter Summary ---
Author Organization [employer] ([place], [place], [place], [place], [place]) Address [address] [place] [address] Care Team Providers Care Near East Archeology Professor Name Role Phone Unavailable Primary Care Provider Unavailabl e Encounter Details Date Type Department Care Team (Late st Contact Info) Description 03/31/2019 Transcribed Document [facility] [facility] [place] [address] ProviderSb MD [address] [place] [address] Social History Tobacco Use Types Packs/Day [...] mL inj 40 mg 0.4 mL, SubCutaneous, [id number] folic acid 0.4 mg, Oral, Daily linaclotide [...] Oral, Daily phenol 1.4% throat spray 5 [place], Oral, Q2H promethazine 25 mg tab 12.5 [...] swelling, No deformity, Normal gait. Integumentary: Warm, [place], Intact, No pallor, No rash, WOUND STABLE. [...] then you may give Tylenol 650 mg PO/CA x 1. If no response in 2 [...]
--- OUTSIDE RECORDS SUMMARY | 2025-07-03 19:00 | XMS_ITS | Encounter Summary ---
Author Organization Healthcare Address [address] [place] [address] Care Team Providers Care Track Broom Operator Name Role Phone Nabeel Rios MD Primary Care Provider [phone] Encounter Details Date Type Department Care Team (Late Contact Info) Description 05/06/2025 Orders Only Medical Office Building Obstetrics and Gynecology [address], [address] [place] [address] Rosa Marks [address] Social History Tobacco Use Types Packs/Day Years [...] Office Building Obstetrics and Gynecology [address], [address] [place] [address] Angelina Carl APRN [address] [place] [address] documented as of this encounter Visit Diagnoses Not on filedocumented in this encounter Care Teams Track Broom Operator Relationship Specialty Start Date End Date Nabeel Rios MD [address] [facility] [address] [place] [address] PCP - General 05/06/25 documented as of this encounter
--- OUTSIDE RECORDS SUMMARY | 2025-07-03 19:00 | XMS_ITS | Encounter Summary ---
Author Organization [employer] ([place], [place], [place], [place], [place]) Address [address] [place] [address] Care Team Providers Care Cubing Machine Tender Name Role Phone Unavailable Primary Care Provider Unavailabl e Encounter Details Date Type Department Care Team (Late st Contact Info) Description 03/31/2019 Transcribed Document [facility] [facility] [place] [address] ProviderSb MD [address] [place] [address] Social History Tobacco Use Types Packs/Day [...] 03/31/2019 16:02 EDT by DAHIANA ROY Care Management-Electrical Transmission Engineer Initial Assessment I Previously Documented Living Environment : No qualifying data available. Living Situation : Home Patient Lives With : Spouse Emergency Contact #1 : Vijay Hayward Emergency Contact #1 Emergency Contact #1 Relationship : spouse Emergency Contact #2 : . Emergency Contact #2 Phone Number : . Emergency Contact #2 Relationship : . DAHIANA ROY Care Management-Electrical Transmission Engineer - 03/31/2019 16:02 EDT Initial Assessment II Sensory and Motor Deficits : Other: GATO Current Home Treatments and Equipment : Bedside commode DAHIANA ROY Care Management-Electrical Transmission Engineer - 03/31/2019 16:02 EDT Discharge Needs I Anticipated Discharge Date : 04/01/2019 EDT Anticipated Discharge To, CM : Home with home health Current Home Treatment/Equipment : Current Home Treatment/Equipment No qualifying data available. Post Acute/Home Treatments : Walker DAHIANA ROY, Care Management-Electrical Transmission Engineer - 03/31/2019 16:02 EDT Discharge Needs II Professional Skilled Services : Professional Skilled Services No qualifying data available. Discharge Options Discussed with Patient : DME, Home Health KIRILL, DAHIANA, Care Management-Electrical Transmission Engineer - 03/31/2019 16:02 EDT Narrative Note Narrative [...] WALKER SHE NEEDS ONE. DAHIANA ROY Care Management-Electrical Transmission Engineer - 03/31/2019 16:02 EDT documented in this encounter Plan of Treatment Not on file documented as of this encounter Visit Diagnoses Not on filedocumented in this encounter
--- OUTSIDE RECORDS SUMMARY | 2025-07-03 19:00 | XMS_ITS | Encounter Summary ---
Author Organization [employer] ([place], [place], [place], [place], [place]) Address [address] [place] [address] Care Team Providers Care Driver'S Education Instructor Name Role Phone Unavailable Primary Care Provider Unavailabl e Encounter Details Date Type Department Care Team (Late st Contact Info) Description 04/01/2019 Transcribed Document [facility] Medicine [facility], [facility] [place] [address] ProviderSb MD [address] [place] [address] Social History Tobacco Use Types Packs/Day [...] Sonny Jeong RN - 04/01/2019 3:14 EDT documented in this encounter Plan of Treatment Not on file documented as of this encounter Visit Diagnoses Not on filedocumented in this encounter
--- OUTSIDE RECORDS SUMMARY | 2025-07-03 19:00 | XMS_ITS | Clinical Summary ---
Author Organization [facility] Address [address] [place] [address] Phone Care Team Providers Care Certified Prosthetist Name Role Phone JOHNSON GONCALVES DO Primary Care Provider [phone] Adrián Swenson MD Unavailable [phone] Rafi Roberts MD Unavailable [phone] [...] Documented On 4 1:00PM ; [facility] Past Visits Onset Date Resolved Date Provider Condition Status Joint Pain Hip Left 07/19/2016 Catracho Rubio MD Active Last Documented On 6 2:14PM ; [facility] Joint Pain Knee 10/14/2013 Catracho Rubio MD A ctive Last Documented On 4 2:09PM ; [facility] Plan of Treatment - Patient screened for future fall risk: documentation of any fall with injury in past year - Last Documented On 01/24/2024 11:36AM ; [facility] - Clinical consultation report - Last Documented On 01/24/2024 11:36AM ; [facility] - Referral to physician - Last Documented On 01/24/2024 11:36AM ; [facility], [facility] Fall Risk Assessment: This patient has [...] - Last Documented On 01/24/2024 11:36AM ; [facility] Patient was seen by myself Constantine Garcia [...] - Last Documented On 01/24/2024 11:36AM ; [facility], [facility] Referrals To Diagnosis Consult for Pain Management Over weight Note: Dr Stone SCS // cc Last Documented On 4 8:31AM ; [facility], [facility] Consult with Vascular Overweight Note: Dr Leiva for Vascular Consult /// cc Last Documented On 4 11:36AM ; [facility], [facility] Instructions to patient Lose weight Last Documented On 4 9:47AM ; [facility], [facility] Assessments Includes: Assessments from this encounter Findings - Overweight - Last Documented On 01/24/2024 11:36AM ; [facility], [facility] Lumbar DDD - Last Documented On 01/24/2024 11:36AM ; [facility], [facility] Instructions Includes: Instructions from this encounter Instructions to patient Lose weight Last Documented On 4 9:47AM ; [facility], [facility] Medical Equipment - Implanted Devices Includes: Current Devices No Medical Equipment Recorded Medications Includes: Medications discussed during this encounter and other current Medications Current Medications (continue as prescribed) diphenhydrAMINE HCl 5 MG/ML Oral Suspension Reconstitu paras 01/07/2024 Provider: Diagnosis: Last Documented On 4 1:30PM By Radha Stafford ; [facility], [facility] Klor-Con M20 20 MEQ Oral Tablet Extended Release 01/06 Provider: Diagnosis: Last Documented On 4 1:31PM By Radha Stafford ; [facility] Phenazopyridine HCl 200 MG Oral Tablet 01/04/2024 Pr ovider: Diagnosis: Last Documented On 4 1:02PM By Radha Stafford ; [facility] Symbicort 160-4.5 MCG/ACT Inhalation Aerosol Provider: Diagnosis: Last Documented On 4 1:02PM By Radha Stafford ; [facility] Nitrofurantoin Monohyd Macro 100 MG Oral Capsule 12/18 Provider: Diagnosis: Last Documented On 4 1:02PM By Radha Stafford ; [facility] Premarin 0.625 MG/GM Vaginal Cream 12/14/2023 Provid er: Diagnosis: Last Documented On 4 1:02PM By Radha Stafford ; [facility] traMADol HCl 50 MG Oral Tablet 12/14/2023 Provider: MARIIA OLIVAS MD Diagnosis: Last Documented On 4 1:02PM By Radha Stafford ; [facility] Nystatin 253637 UNIT/GM External Ointment 12/03/2023 Provider: Diagnosis: Last Documented On 4 1:02PM By Radha Stafford ; [facility] Atorvastatin Calcium 20 MG Oral Tablet 11/21/2023 Pr ovider: MARIIA OLIVAS MD Diagnosis: Last Documented On 4 1:30PM By Radha Stafford ; [facility] Potassium Chloride Zaina ER 2 0 MEQ Oral Tablet Extended Release 09/08/2023 Provider: Kathleen Sanderson APRN Diagnosis: Last Documented On 4 1:02PM By Radha Stafford ; [facility] Furosemide 20 MG Oral Tablet 08/16/2023 Provider: Kathleen Sanderson APRN Diagnosis: Last Documented On 4 1:02PM By Radha Stafford ; [facility] Ipratropium-Albuterol 0.5-2.5 (3) MG/3ML Inhalat ion Solution 08/01/2023 Provider: Diagnosis: Last Documented On 4 1:31PM By Radha Stafford ; [facility] Medications Administered Includes: Administered Medications from this encounter No Administered Medications Recorded Vital Signs Includes: Vital Signs from this encounter Vital Name 01/24/2024 10:01A Height (in) 61 Weight (lb) 175.2 Body Mass Index 33.1 Body Surface Area 1.8 Pain Level 8 Note: lc Last Documented: On 01/24/2024 10:01A M ; [facility] Results Includes: Results discussed during this encounter [...] Documented On 4 9:47AM ; [facility] Not a current smoker. 01/07/2024 Last Documented On 4 9:47AM ; [facility] Non-smoker 02/22/2021 Last Documented On 4 9:47AM ; [facility] No caffeine use 06/11/2019 Last Documented On 4 9:47AM ; [facility] No recent change in diet 07/19/2016 Last Documented On 4 9:47AM ; [facility], [facility] Not a current smoker 07/19/2016 Last Documented On 4 9:47AM ; [facility], [facility] Not exercising regularly 07/19/2016 Last Documented On 4 9:47AM ; [facility], [facility] Not using alcohol 07/19/2016 Last Documented On 4 9:47AM ; [facility], [facility] Not using drugs 07/19/2016 Last Documented On 4 9:47AM ; [facility], [facility] No tobacco use 10/14/2013 Last Documented On 4 9:47AM ; [facility], [facility] Smoking status : Never smoked/ Recode: 4 10/14/2013 Last Documented On 4 9:47AM ; [facility], [facility] Procedures and Surgical History Includes: Procedures from this encounter Procedures Code Diagnosis Performing Provider Service L ocation Service Date an MRI was performed L-spine 01/14/[address] [facility] [address] Last Documented On 4 9:48AM ; [facility], [facility] Surgical History Last Updated History of total hip replacement Left 01/24/2024 Last Documented On 4 11:36AM ; [facility], [facility] Past Surgical History: left carpal tunne l ~right and left arm rotator cuff 01/24/2024 Last Documented On 4 11:36AM ; [facility] History of History of Gallbladder 2023 Last Documented On 4 9:47AM ; [facility], [facility] History of appendectomy 09/24/2019 Last Documented On 4 9:47AM ; [facility] History of back surgery 09/24/2019 Last Documented On 4 9:47AM ; [facility], [facility] History of hysterectomy 09/24/2019 Last Documented On 4 9:47AM ; [facility], [facility] Medical History Includes: Medical History addressed during this encounter Description Last Updated History of History of Blood Transfusion 01/24/2024 Last Documented On 4 11:36AM ; [facility] History of asthma 01/07/2024 Last Documented On 4 9:47AM ; [facility] History of Hypertension 01/07/2024 Last Documented On 4 9:47AM ; [facility] History of Irregular Heartbeat 4 Last Documented On 4 9:47AM ; [facility] History of Liver Disease 01/07/2024 Last Documented On 4 9:47AM ; [facility] History of Sleep Apnea 01/07/2024 Last Documented On 4 9:47AM ; [facility] A recent immunization for pneumococcal p neumonia 06/201609/24/2019 Last Documented On 4 9:47AM ; [facility] Arthritic joint problems 09/24/2019 Last Documented On 4 9:47AM ; [facility] Gallbladder disease 09/24/2019 Last Documented On 4 9:47AM ; [facility] History of diverticulitis of colon 09/24 Last Documented On 4 9:47AM ; [facility] History of hepatitis 09/24/2019 Last Documented On 4 9:47AM ; [facility] Intermittent hypertension 09/24/2019 Last Documented On 4 9:47AM ; [facility] Family History Includes: Family History addressed during this encounter Description Last Updated Family history of cancer 09/24/2019 Last Documented On 4 9:47AM ; [facility] Family history of heart disease 09/24/19 20 Last Documented On 4 9:47AM ; [facility] Family history of hypertension 0 Last Documented On 4 9:47AM ; [facility] Family history of rheumatoid arthritis m other 09/24/2019 Last Documented On 4 9:47AM ; [facility] Review of Systems [...] ve Last Documented On 4 9:47AM ; [facility] Keflex Allergy 10/14/2013 Active Last Documented On 4 9:47AM ; [facility] Betadine Allergy 10/14/2013 Active Last Documented On 4 9:47AM ; [facility] Bactroban Allergy 03/28/2019 Active Last Documented On 4 9:47AM ; [facility] Encounters Encounter Provider Location Date Check-In Time Check-Out Time Diagnosis Follow Up Edwardo English MD [facility] 4 9:30AM 10:27AM Overweight Insurance Includes: Active Insurance Policies Plan Name Member ID Group # Subscriber Relationship Effect etelvina Dates 1 - [employer] [id number] Samara Hayward Self 07/16/2019 - Unknown Clinical Notes Includes: Clinical Notes from this encounter * Progress note Date Encounter Last Documented by 01/24/2024 Follow Up Last documented on 01/24/2024; 11:36 AM, Edwardo English MD; [facility], [facility] Active Problems & Conditions [...] Capsule 7 days, 0 refills - Nystatin [id number] UNIT/GM External Ointment 10 days, 0 refills [...] An MRI was performed L-spine 01/14/[address] [facility]. Available previous imaging studies were reviewed [...]
--- OUTSIDE RECORDS SUMMARY | 2025-07-03 19:00 | XMS_ITS | Encounter Summary ---
Author Organization [employer] ([place], [place], [place], [place], [place]) Address [address] [place] [address] Care Team Providers Care Tableau Developer Name Role Phone Unavailable Primary Care Provider Unavailabl e Encounter Details Date Type Department Care Team (Late st Contact Info) Description 03/31/2019 Transcribed Document [facility] Family Medicine [facility]ly [facility] [place] [address] ProviderSb MD [address] [place] [address] Social History Tobacco Use Types Packs/Day [...] Performed On: 03/31/2019 14:40 EDT by GIOVANNI OCOHA RN-Utilization Review Primary Insurance Authorization Authorization and Policy Numbers : Insurance 1 Health Plan: [employer] PPO Policy Number: [id number] Authorization Number: [id number] Insurance Primary Name : [employer] PPO Policy Number: [id number] Authorization Status-Primary : Notification only Authorization Number-Primary : [id number] Authorized Service Begin Date-Primary : 03/31/2019 EDT Authorization Comments-Primary : Uploaded clinicals to [employer] via [employer]. Historical Authorization Comments-Primary : Comment 1: [employer] PPO approved per availity for inpt -- must fax clinicals (MANUEL HAMPTON RN-Utilization Review 03/19/2019 11:55) GIOVANNI OCHOA RN-Utilization Review - 03/31/2019 14:40 EDT documented in this encounter Plan of Treatment Not on file documented as of this encounter Visit Diagnoses Not on filedocumented in this encounter
--- OUTSIDE RECORDS SUMMARY | 2025-07-03 19:00 | XMS_ITS | Encounter Summary ---
Author Organization [employer] ([place], [place], [place], [place]) Address [address] [place] [address] Care Team Providers Care Shoe Turner Name Role Phone Unavailable Primary Care Provider Unavailabl e Encounter Details Date Type Department Care Team (Late st Contact Info) Description 03/31/2019 Transcribed Document [facility] [place] [facility] [place] [address] ProviderSb MD [address] [place] [address] Social History Tobacco Use Types Packs/Day [...] EDT Performed On: 03/31/2019 13:28 EDT by MNAUEL HAMPTON RN-Utilization Review Primary Insurance Authorization Authorization and Policy Numbers : Insurance 1 Health Plan: [employer] PPO Policy Number: [id number] Authorization Number: [id number] Insurance Primary Name : [employer] PPO Policy Number: [id number] Authorization Status-Primary : Notification only Authorization Number-Primary : [id number] Authorized Service Begin Date-Primary : 03/31/2019 EDT Historical Authorization Comments-Primary : Comment 1: [employer] PPO approved per availity for inpt -- must fax clinicals (MANUEL HAMPTON RN-Utilization Review 03/19/2019 11:55) MANUEL HAMPTON RN-Utilization Review - 03/31/2019 13:28 EDT Electronically signed by Vinita Fountain Conversion Sports Physical Therapist Fernando at 11/21/2022 4:16 PM CDT documented in this encounter Plan of Treatment Not on file documented as of this encounter Visit Diagnoses Not on filedocumented in this encounter
--- OUTSIDE RECORDS SUMMARY | 2025-07-03 19:00 | XMS_ITS | Encounter Summary ---
Author Organization [employer] ([place], [place], [place], [place]) Address [address] [place] [address] Care Team Providers Care Soccer Commentator Name Role Phone Unavailable Primary Care Provider Unavailabl e Encounter Details Date Type Department Care Team (Late st Contact Info) Description 04/01/2019 Transcribed Document [facility] Pending [facility] to [facility] [place] [address] ProviderSb MD [address] [place] [address] Social History Tobacco Use Types Packs/Day Years Used Date Smoking Tobacco: Never Assessed Comments Unknown Sex and Gender Information Value Date Recorded Sex Assigned at Not on file Legal Sex Female 1:50 PM CDT Gender Identity Not on file Sexual Orientation Not on file documented as of this encounter Miscellaneous Notes * Cerner Conversion Note - Sb aMn MD - 04/01/2019 4:59 PM CDT Patient: [...] mL inj 40 mg 0.4 mL, SubCutaneous, [id number] folic acid 1 mg tab 1 mg [...] Oral, Daily phenol 1.4% throat spray 5 [place], Oral, Q2H promethazine 25 mg tab 12.5 [...] options regarding home was on hemodialysis versus rehabilitation/[facility] facility. documented in this encounter Plan of Treatment Not on file documented as of this encounter Visit Diagnoses Not on filedocumented in this encounter
--- OUTSIDE RECORDS SUMMARY | 2025-07-03 19:00 | XMS_ITS | Encounter Summary ---
Author Organization [email or web address] ([place], [place], [place], [place]) Address [address] [place] [address] Care Team Providers Care Mess Attendant Name Role Phone Unavailable Primary Care Provider Lisset e Encounter Details Date Type Department Care Team (Late st Contact Info) Description 03/31/2019 Transcribed Document [facility] [address] ProviderSb MD [address] [place] [address] Social History Tobacco Use Types Packs/Day [...] direct anterior approach. SURGEON: Yamileth Omer M.D. SLICE CUTTING MACHINE OPERATOR HELPER: Eleazar Lockett assisted the surgeon in completing [...] general anesthesia was placed supine on the Allen table. The feet were positioned in the Allen boots with the feet well padded. The [...] position and impacted. The hook for the Allen table was then inserted distally to the [...] were performed to determine ideal stability and pentecostal of proper leg length. confirmed by the image intensifier. The final prostheses were impacted in position and the ceramic head then impacted on the Ko taper of the stem with the -[address]. The hip was reduced. The patient had pentecostal of leg length checked by the image [...] to the recovery room in satisfactory condition. documented in this encounter Plan of Treatment Not on file documented as of this encounter Visit Diagnoses Not on filedocumented in this encounter
--- OUTSIDE RECORDS SUMMARY | 2025-07-03 19:00 | XMS_ITS | Encounter Summary ---
Author Organization [employer] ([place], [place], [place], [place], [place]) Address [address] [place] [address] Care Team Providers Care Saloonkeeper Name Role Phone Unavailable Primary Care Provider Unavailabl e Encounter Details Date Type Department Care Team (Late st Contact Info) Description 04/03/2019 Transcribed Document [facility] [place] [facility] [place] [address] ProviderSb MD [address] [place] [address] Social History Tobacco Use Types Packs/Day [...] Man MD - 04/03/2019 3:08 PM CDT [place] [id number] ARIEL SHARONDA S :1945 Visit Time:03/31/2019 Your [...] ? Using the bathroom. ? Using household atomizer assembler or poisonous chemicals. ? Touching or taking [...] 07/05/2009 Document Revised: 12/28/2016 Document Reviewed: 12/18/2014 [employer] Patient Education ?? 2018 [employer] Fall Prevention in the Home, Adult [...] Keep items that you use often in bngu-oe-sjkwd places. Lower the shelves around your home [...] the way. ??? Do not use floor greenlandic or wax that makes floors slippery. If [...] Control and Prevention, STEAD[place]: https://cdc.gov ??? National [place] on Aging: https://sn6ebtg.joe.nih.gov Contact a doctor if: ??? You are [...] 05/19/2010 Document Revised: 03/07/2018 Document Reviewed: 03/07/2018 [employer] Patient Education ?? 2019 [employer] What to expect after the Procedure: [...] Barley. Bulgur wheat. Millet. Bran muffins. Popcorn. Burlingame wafer crackers. Vegetables Sweet potatoes. Spinach. Kale. Artichokes. Cabbage. Broccoli. Green peas. Carrots. Squash. Fruits Berries. Pears. Apples. Oranges. Avocados. Prunes and raisins. Dried figs. Meats and Other Protein Sources [place], kidney, mariscal, and soy beans. Split peas. [...] davey has 11 g of protein. ??? [place] seeds ??? 1 oz has 5.5 g [...] floor. ??? Place frequently used items in hjjl-at-jzlui places ??? Keep electrical cables out of [...] ??? Using the bathroom. ??? Using household atomizer assembler or toxic chemicals. ??? Touching or taking [...] may report side effects to FDA at 6-909-LWL-6452. What other drugs will affect acetaminophen and [...] affect acetaminophen and oxycodone, including prescription and firo-kkt-xrrppsg medicines, vitamins, and herbal products. Not all [...] to ensure that the information provided by [employer]. ('[employer]') is accurate, up-to-date, and complete, but no guarantee is made to that effect. Drug information contained herein may be time sensitive. The [employer] information has been compiled for use by healthcare practitioners and consumers in the [place] and therefore The [employer] does not warrant that uses outside of the [place] are appropriate, unless specifically indicated otherwise. [employer] drug information does not endorse drugs, diagnose patients or recommend therapy. [employer] drug information is an informational resource designed [...] effective or appropriate for any given patient. The [employer] does not assume any responsibility for any aspect of healthcare administered with the aid of information The [employer] provides. The information contained herein is not intended to cover all possible uses, directions, precautions, warnings, drug interactions, allergic reactions, or adverse effects. If you have questions about the drugs you are taking, check with your doctor, nurse or pharmacist. Copyright 2621-3055 [employer]. Version: 18.02. Revision Date: 07/03/2018. Emergency Awareness [...] Assistance with quitting is available by contacting 3-188-JARFNOW. This is a free resource providing counseling, [...] range between ( 1.0 and 7.0 ) [place] #: 0.90 K/uL -- Normal range between ( 0.24 and 0.82 ) [place]os #: 0.22 K/uL -- Normal range between ( 0.04 and 0.54 ) [place] %: 8.6 % -- Normal range between [...] ) Urine Bilirubin Dipstick: Negative Urine Specific [place]: 1.014 -- Normal range between ( 1.005 and 1.030 ) Urine Type.: U [employer] General Chemistry 04/01/19 03:11:00 Creatinine Level: 0.82 [...] was given the opportunity to ask questions. Patient/Aerobics Instructor Name: Patient/Aerobics Instructor Signature: Relationship to Patient: Clinician/Hospital Aerobics Instructor Signature: Date: documented in this encounter Plan of Treatment Not on file documented as of this encounter Visit Diagnoses Not on filedocumented in this encounter
--- OUTSIDE RECORDS SUMMARY | 2025-07-03 19:00 | XMS_ITS | Encounter Summary ---
Author Organization [employer] ([place], [place], [place], [place], [place]) Address [address] [place] [address] Care Team Providers Care Mechanic Chief Name Role Phone Unavailable Primary Care Provider Unavailabl e Encounter Details Date Type Department Care Team (Late st Contact Info) Description 03/31/[address] [facility] [place] Medicine [facility] [place] [address] ProviderSb MD [address] [place] [address] Social History Tobacco Use Types Packs/Day [...] Performed On: 03/31/2019 13:01 EDT by Narda Cotni Rn Advance Directive Patient has Advance Directive [...] #2 Relationship : . Primary Language : Indian Communication Barrier : None Objects to Sharing [...] Scale Risk Level : 25-45 Medium Risk [place] Fall Interventions : Adequate lighting, Bed in [...] Source : Measured Height Entry Format : [place] Height, Feet : 5 ft(Converted to: 152 cm, 60 Inch) Height, Inches : 1 Inch(Converted to: 0 ft 1 Inch, 2.54 cm) Clinical Height : 154.94 cm Weight Source : Standing scale Weight Entry Format : [place] Clinical Dosing Weight : 82.27 kg Weight, Pounds : 181 lb Body Surface Area (BSA) : 1.81 m2 Body Mass Index : 34.3 kg/m2 (HI) Altus Body Weight : 47 kg Narda Conti [...] Apnea Risk Level Score : 4 Narda Conti Rn - 03/31/2019 13:01 EDT Spiritual/Cultural Needs [...]
--- OUTSIDE RECORDS SUMMARY | 2025-07-03 19:00 | XMS_ITS | Patient Health Record ---
Author Organization [facility] FISH Address [address] [facility] [address] [place] [address] Care Team Providers Care Paper Cone Grader Name Role Phone Khadar Quintana Primary Care [...] Duration: 90 days 07/11/2022 Active POTASSIUM CHLORIDE ([facility] M20) 20 MEQ TAKE 1 TABLET BY [...] Risk Notes Problem Major depression, single episode (95710115) Major depressive disorder, single episode, unspecified (F32.9) Active confirmed Problem Anxiety disorder (393207336) Other mixed anxiety disorders (F41.3) Active confirmed Problem Bilateral tinnitus (4921139234786) Tinnitus, bilateral (H93.13) Active confirmed Problem Congenital malformation syndrome (760995816) Other specified congenital malformation syndromes, 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) Active confirmed Problem Paresthesia (finding) (69598467) Paresthesia of skin (R20.2) Active confirmed Problem Mixed anxiety and depressive disorder (510491855) Depression with anxiety (F41.8) Active confirmed Problem Anxiety (49092044) Anxiety (F41.9) Active confi rmed Problem Vitamin D deficiency (31051904) Vitamin D deficiency (E55.9) Active confirmed Problem Essential hypertension (55794326) Essential hypertension (I10) Active confirmed Problem Diverticulitis (08016822) Diverticulitis (K57.92) Active confirmed Problem Constipation by delayed colonic transit (06612707) Constipation by delayed colonic transit (K59.01) Active confirmed Problem Acute exacerbation of chronic obstructive airways disease (256578391) COPD exacerbation (J44.1) Active confirmed Problem Dysuria (71491042) Burning with urination (R30.0) Active confirmed Problem Obese class I (040950577259737) BMI 33.0-33.9,adult (Z68.33) Active confirmed Problem Chronic pain (46309002) Other chronic pain (G89.29) Active confirmed Problem Senile debility (93759644) Senile debility (R54) Active confirmed Problem Claudication (28714956) Claudication (I73.9) Active confirmed Problem Insomnia disorder related to another mental disorder (59477460) Psychophysiological insomnia (F51.04) Active confirmed Problem Inflammation of right sacroiliac joint (5722188744) Inflammation of right sacroiliac joint (M46.1) Active confirmed Problem Degeneration of lumbosacral intervertebral disc (41912618) DDD (degenerative disc disease), lumbosacral (M51.37) Active confirmed Problem Mood disorder (74631512) Mood disorder (F39) Active confirmed Problem Obstructive sleep apnea syndrome (19971908) LAURA (obstructive sleep apnea) (G47.33) Active confirmed Problem Environmental tobacco smoke exposure (103914791) Second hand smoke exposure (Z77.22) Active confirmed Problem Generalized anxiety disorder (32470218) MONI (generalized anxiety disorder) (F41.1) Active confirmed Problem Vitamin B12 deficiency (013573196) History of non anemic vitamin B12 deficiency (Z86.39) Active confirmed Problem Abnormal gait (24226836) Gait disturbance (R26.9) Active confirmed Problem Coronary arteriosclerosis (disorder) (51273601) CAD in inupiat artery (I25.10) Active confirmed Problem Recurrent falls (279156653) Falls frequently (R29.6) Active confirmed Problem Lymphedema (185086307) Lymphedema of left leg (I89.0) Active confirmed Problem Idiopathic sleep related non-obstructive alveolar hypoventilation (564593093) Nocturnal hypoxemia (G47.34) Active confirmed Problem Abdominal aortic aneurysm without rupture (disorder) (46802670) Abdominal aortic aneurysm (AAA) without rupture (I71.4) Active confirmed Problem Irritable bowel syndrome characterized by constipation (651897053) Irritable bowel syndrome with constipation (K58.1) Active confirmed Problem Inflammatory bowel disease (disorder) (49251651) IBD (inflammatory bowel disease) (K63.89) Active confirmed Problem Midline cystocele (821597701) Bladder prolapse, female, acquired (N81.10) Active confirmed Problem Mucopurulent chronic bronchitis (52673919) Chronic bronchitis with productive mucopurulent cough (J41.1) Active confirmed Problem Major depression, single episode (10322827) Chronic major depressive disorder (F32.9) Active confirmed Problem Impairment of balance (327306065) Balance problem (R26.89) Active confirmed Encounters Encounter Location Date Provider Diagnosis [facility] FISH [address] [facility] [address] [place] [address] 11/08/2024 Provider Migration MONI (generalized anxiety disorder) [...] End Date [employer] [address] [address] [place] [address] [phone] [id number] Samara Hayward Self - patient is the [...] surgery, Dr Catracho Arellano in [facility] 06/2003 Hospitalization History Reason Date(Month/Year) ICU- GI bleed- transfusions 09/2016 [facility] 03/2019 [facility]- Tachycardia 03/2018
--- OUTSIDE RECORDS SUMMARY | 2025-07-03 19:00 | XMS_ITS | Referral Summary ---
Author Organization [email or web address] ([place], [place], [place], [place], [place]) Address [address] [place] [address] Care Team Providers Care Hvac Instructor Name Role Phone Unavailable Primary Care [...]
--- OUTSIDE RECORDS SUMMARY | 2025-07-03 19:00 | XMS_ITS | Clinical Summary ---
Author Organization Healthcare Address [address] [place] [address] Care Team Providers Care Bottom Cager Name Role Phone Nabeel Rios MD Primary Care Provider Allergies Active Allergy Reactions Criticality Noted Date [...] Office Building Obstetrics and Gynecology [address], [address] [place] [address] Rosa Marks 05/06/2025 Telephone Medical Office Building Obstetrics and Gynecology [address], [address] [place] [address] Angelina Carl APRN from Last [...] Upcoming Encounters Date Type Department Care Team ([facility] st Contact Info) Description 09/22/2025 2:00 PM EST Office Visit Medical Office Building Obstetrics and Gynecology [address], [address] [place] [address] Angelina Carl R, CLINICAL STAFF RN [address] [place] [address] Health Maintenance Due Date Last Done Comments [facility]-Bone Density Scan 1945 [facility]-Depression Screening 1945 [facility]-Hepatitis C Screening 1945 [facility]-Medicare Annual Wellness (AWV) 1946 [facility]-/Child/Adol SDOH Screenings 1946 [facility]- SDOH Screenings 1964 [facility]-Adult SDOH Screenings 1964 [facility]-Zoster Vaccines (1 of 2) 1996 [facility]-RSV Vaccine: 60+ Years or (1 - 1-dose 75+ series) 2021 EAE-[id number]-82 Vaccine (4 - season) 2025 06/29/2021, 11/05/2020, 10/05/2020 [facility]-Influenza Vaccine [...] Health Maintenance Insurance [employer] MEDICARE Care Teams Bottom Cager Relationship Specialty Start Date End Date Nabeel Rios MD [address] [facility] [address] [place] [address] PCP - General 05/06/25
--- OUTSIDE RECORDS SUMMARY | 2025-07-03 19:00 | XMS_ITS | Encounter Summary ---
Author Organization [employer] ([place], [place], [place], [place], [place]) Address [address] [place] [address] Care Team Providers Care Loading Unit Operator Crimping Name Role Phone Unavailable Primary Care Provider Unavailabl e Encounter Details Date Type Department Care Team (Late st Contact Info) Description 03/31/2019 Transcribed Document [facility] Family Medicine [facility] [place] [address] ProviderSb MD [facility] [place] [address] Social History Tobacco Use Types [...] Sb ProviderMD - 03/31/2019 2:40 PM CDT packing checker Form Entered On: 03/31/2019 14:40 EDT Performed On: 03/31/2019 14:40 EDT by GIOVANNI OCHOA RN-Utilization Review UM Additional Information UM Additional Comment : Request for inpt stay. Clinicals to follow. ICD 10: Z96.642 GIOVANNI OCHOA RN-Utilization Review - 03/31/2019 14:40 EDT Electronically signed by Vinita Fountain Conversion Pull Over Machine Operator Fernando at 11/21/2022 4:19 PM CDT documented in this encounter Plan of Treatment Not on file documented as of this encounter Visit Diagnoses Not on filedocumented in this encounter
--- OUTSIDE RECORDS SUMMARY | 2025-07-03 19:00 | XMS_ITS | Clinical Summary ---
Author Organization [facility] Address [address] [place] [address] Phone Care Team Providers Care Foreman Shipping Department Name Role Phone JOHNSON GONCALVES DO Primary Care Provider [phone] Adrián Swenson MD Unavailable [phone] Rafi Roberts MD Unavailable [phone] Reason for Visit and Chief Complaint The Chief Complaint is: Left hip pain Problems Includes: Problems addressed during this encounter and other active Problems Current Visit Onset Date Resolved Date Provider Conditio n Status Lower Back Pain 01/07/2024 Constantine Garcia PA-C A ctive Last Documented On 4 1:00PM ; [facility], [facility] Past Visits Onset Date Resolved Date Provider Condition Status Joint Pain Hip Left 07/19/2016 Catracho Rubio MD Active Last Documented On 6 2:14PM ; [facility] Joint Pain Knee 10/14/2013 Catracho Rubio MD A ctive Last Documented On 4 2:09PM ; [facility] Plan of Treatment Instructions to patient Instructions for patient see pcp for elevated bp Last Documented On 0 2:24PM ; [facility] Assessments Includes: Assessments from this encounter [...] - Last Documented On 10/03/2019 3:04PM ; [facility] After long discussion with Dr Rubio [...] lower extremity radiculopathy.. We will obtain a [place] MRI of the lumbar spine and refer her to Dr. Fernández. She understands and is agreeable and would like to proceed as possible. We therefore make the appropriate arrangements and see her back 6 months. - Last Documented On 10/03/2019 3:04PM ; [facility] X-rays: AP pelvic and lateral x-rays of the left hip demonstratewell-positioned femoral and acetabular component. The prostheses are in good position. There is no evidence of loosening or fracture noted. The head is well reduced into the acetabular component. Otherwise unremarkable x-ray of the left total hip arthroplasty. - Last Documented On 10/03/2019 3:04PM ; [facility] Electronically signed by Abner Mcwilliams PA-C - Last Documented On 10/03/2019 3:04PM ; [facility] Instructions Includes: Instructions from this encounter Instructions to patient Instructions for patient see pcp for elevated bp Last Documented On 0 2:24PM ; [facility] Medical Equipment - Implanted Devices Includes: Current Devices No Medical Equipment Recorded Medications Includes: Medications discussed during this encounter and other current Medications Current Medications (continue as prescribed) diphenhydrAMINE HCl 5 MG/ML Oral Suspension Reconstitu paras 01/07/2024 Provider: Diagnosis: Last Documented On 4 1:30PM By Radha Stafford ; [facility] Klor-Con M20 20 MEQ Oral Tablet Extended Release 01/06 Provider: Diagnosis: Last Documented On 4 1:31PM By Radha Stafford ; [facility] Phenazopyridine HCl 200 MG Oral Tablet 01/04/2024 Pr ovider: Diagnosis: Last Documented On 4 1:02PM By Radha Stafford ; [facility] Symbicort 160-4.5 MCG/ACT Inhalation Aerosol Provider: Diagnosis: Last Documented On 4 1:02PM By Radha Stafford ; [facility] Nitrofurantoin Monohyd Macro 100 MG Oral Capsule 12/18 Provider: Diagnosis: Last Documented On 4 1:02PM By Radha Stafford ; [facility] Premarin 0.625 MG/GM Vaginal Cream 12/14/2023 Provid er: Diagnosis: Last Documented On 4 1:02PM By Radha Stafford ; [facility] traMADol HCl 50 MG Oral Tablet 12/14/2023 Provider: MARIIA OLIVAS MD Diagnosis: Last Documented On 4 1:02PM By Radha Stafford ; [facility] Nystatin 195017 UNIT/GM External Ointment 12/03/2023 Provider: Diagnosis: Last Documented On 4 1:02PM By Radha Stafford ; [facility] Atorvastatin Calcium 20 MG Oral Tablet 11/21/2023 Pr ovider: MARIIA OLIVAS MD Diagnosis: Last Documented On 4 1:30PM By Radha Stafford ; [facility] Potassium Chloride Zaina ER 2 0 MEQ Oral Tablet Extended Release 09/08/2023 Provider: Kathleen Sanderson APRN Diagnosis: Last Documented On 4 1:02PM By Radha Stafford ; [facility] Furosemide 20 MG Oral Tablet 08/16/2023 Provider: Kathleen Sanderson APRN Diagnosis: Last Documented On 4 1:02PM By Radha Stafford ; [facility] Ipratropium-Albuterol 0.5-2.5 (3) MG/3ML Inhalat ion Solution 08/01/2023 Provider: Diagnosis: Last Documented On 4 1:31PM By Radha Stafford ; [facility] Medications Administered Includes: Administered Medications from this encounter No Administered Medications Recorded Vital Signs Includes: Vital Signs from this encounter Vital Name 09/24/2019 02:24P Blood Pressure Sitting (mmHg) 106/56 Pulse Rate-Sitting (bpm) 67 Height (in) 62 Weight (lb) 194 Body Mass Index (kg/m2) 35.5 Body Surface Area (m2) 1.9 Note: tmg Last Documented: On 09/24/2019 2:39PM ; [facility], [facility] Results Includes: Results discussed during this encounter No Results Recorded For Specified Dates History of Present Illness Includes: History of Present Illness from this encounter RAFAELA Hayward is a 74 year old female. - Allergy list reviewed - Problem list reviewed - Medication list reviewed with patient - Medication reconciliation performed Social History Description Last Updated No caffeine use 06/11/2019 Last Documented On 0 2:24PM ; [facility], [facility] No recent change in diet 07/19/2016 Last Documented On 0 2:24PM ; [facility] Not a current smoker 07/19/2016 Last Documented On 0 2:24PM ; [facility] Not exercising regularly 07/19/2016 Last Documented On 0 2:24PM ; [facility] Not using alcohol 07/19/2016 Last Documented On 0 2:24PM ; [facility] Not using drugs 07/19/2016 Last Documented On 0 2:24PM ; [facility] No tobacco use 10/14/2013 Last Documented On 0 2:24PM ; [facility] Smoking status : Never smoked/ Recode: 4 10/14/2013 Last Documented On 0 2:24PM ; [facility] Procedures and Surgical History Includes: Procedures from this encounter Procedures Code Diagnosis Performing Provider Service L ocation Service Date Clinical summary provided to patient Last Documented On 0 2:38PM ; [facility] Surgical History Last Updated History of appendectomy 09/24/2019 Last Documented On 0 3:04PM ; [facility] History of back surgery 09/24/2019 Last Documented On 0 3:04PM ; [facility] History of hysterectomy 09/24/2019 Last Documented On 0 3:04PM ; [facility] Medical History Includes: Medical History addressed during this encounter Description Last Updated left carpal tunnel ~right and left arm r otator cuff ~blood transfusion 09/24/2019 Last Documented On 0 3:04PM ; [facility] A recent immunization for pneumococcal p neumonia 06/201609/24/2019 Last Documented On 0 3:04PM ; [facility] Arthritic joint problems 09/24/2019 Last Documented On 0 3:04PM ; [facility] Gallbladder disease 09/24/2019 Last Documented On 0 3:04PM ; [facility] History of diverticulitis of colon 09/24 Last Documented On 0 3:04PM ; [facility] History of hepatitis 09/24/2019 Last Documented On 0 3:04PM ; [facility] Intermittent hypertension 09/24/2019 Last Documented On 0 3:04PM ; [facility] Family History Includes: Family History addressed during this encounter Description Last Updated Family history of cancer 09/24/2019 Last Documented On 0 3:04PM ; [facility] Family history of heart disease 09/24/19 20 Last Documented On 0 3:04PM ; [facility] Family history of hypertension 0 Last Documented On 0 3:04PM ; [facility] Family history of rheumatoid arthritis m other 09/24/2019 Last Documented On 0 3:04PM ; [facility] Review of Systems Includes: Review of [...] ve Last Documented On 4 9:47AM ; [facility] Keflex Allergy 10/14/2013 Active Last Documented On 4 9:47AM ; [facility] Betadine Allergy 10/14/2013 Active Last Documented On 4 9:47AM ; [facility] Bactroban Allergy 03/28/2019 Active Last Documented On 4 9:47AM ; [facility] Encounters Encounter Provider Location Date Check-In Time Check- Out Time Diagnosis Follow Up Catracho Rubio MD [facility] 0 2:25PM 3:59PM Insurance Includes: Active Insurance Policies Plan Name Member ID Group # Subscriber Relationship Effect etelvina Dates 1 - [employer] [id number] Samara Hayward Self 07/16/2019 - Unknown Clinical Notes Includes: Clinical Notes from this encounter No Clinical Notes Recorded
--- OUTSIDE RECORDS SUMMARY | 2025-07-03 19:01 | XMS_ITS | Encounter Summary ---
Author Organization [employer] ([place], [place], [place], [place], [place]) Address [address] [place] [address] Care Team Providers Care Driller'S Offsider Name Role Phone Unavailable Primary Care Provider Unavailabl e Encounter Details Date Type Department Care Team (Late st Contact Info) Description 03/19/2019 Transcribed Document [facility] Family Medicine [facility] [place] [address] ProviderSb MD [address] [place] [address] Social History Tobacco Use Types Packs/Day [...] Health Plan: [employer] PPO Policy Number: [id number] Authorization Number: Insurance Primary Name : [employer] PPO Policy Number: [id number] Authorization Status-Primary : Notification only Authorization Number-Primary : [id number] Authorized Service Begin Date-Primary : 03/31/2019 EDT [...]
--- OUTSIDE RECORDS SUMMARY | 2025-07-03 19:01 | XMS_ITS | Encounter Summary ---
Author Organization [employer] ([place], [place], [place], [place], [place]) Address [address] [place] [address] Care Team Providers Care Trestle Builder Name Role Phone Unavailable Primary Care Provider Unavailabl e Encounter Details Date Type Department Care Team (Late st Contact Info) Description 04/02/2019 Transcribed Document [facility] Family Medicine [address] [place] [address] ProviderSb MD [address] [place] [address] Social History Tobacco Use Types Packs/Day [...] EDT Electronically signed by Vinita Fountain Conversion Pre Sales Technical Engineer Charlesner at 11/21/2022 4:04 PM CDT documented in this encounter Plan of Treatment Not on file documented as of this encounter Visit Diagnoses Not on filedocumented in this encounter
--- OUTSIDE RECORDS SUMMARY | 2025-07-03 19:01 | XMS_ITS | Encounter Summary ---
Author Organization [employer] ([place], [place], [place], [place], [place]) Address [address] [place] [address] Care Team Providers Care Electric Blanket Packer Name Role Phone Unavailable Primary Care Provider Unavailabl e Encounter Details Date Type Department Care Team (Late st Contact Info) Description 04/03/2019 Transcribed Document [facility] Family Medicine [address] [place] [address] ProviderSb MD [facility] [address] Social History Tobacco Use Types [...]
--- OUTSIDE RECORDS SUMMARY | 2025-07-03 19:01 | XMS_ITS | Encounter Summary ---
Author Organization [employer] ([place], [place], [place], [place], [place]) Address [address] [place] [address] Care Team Providers Care Oncology Physician Assistant Name Role Phone Unavailable Primary Care Provider Unavailabl e Encounter Details Date Type Department Care Team (Late st Contact Info) Description 04/03/2019 Transcribed Document [facility] Family Medicine [address] [place] [address] ProviderSb [place] [address] Social History Tobacco Use Types [...] On: 04/03/2019 5:00 EDT by ISAIAS BOLTON, Senior Network Systems Engineer-Nursing Chart Check Powerplans Initiated/Discontinued as Appropriate : Yes All Active Orders Reviewed : Yes ISAIAS BOLTON, Senior Network Systems Engineer-Nursing - 04/03/2019 6:45 EDT Electronically signed by Vinita Fountain Conversion Director Of Professional Services Fernando at 11/21/2022 4:08 PM CDT documented in this encounter Plan of Treatment Not on file documented as of this encounter Visit Diagnoses Not on filedocumented in this encounter
--- OUTSIDE RECORDS SUMMARY | 2025-07-03 19:01 | XMS_ITS | Encounter Summary ---
Author Organization [employer] ([place], [place], [place], [place], [place]) Address [address] [place] [address] Care Team Providers Care Health Science Instructor Name Role Phone Unavailable Primary Care Provider Unavailabl e Encounter Details Date Type Department Care Team (Late st Contact Info) Description 04/03/2019 Transcribed Document [facility] [place] [facility] [place] [address] ProviderSb MD [address] [place] [address] Social History Tobacco Use Types Packs/Day [...] Man MD - 04/03/2019 3:13 PM CDT [place] [id number] ARIEL SHARONDA S :1945 Visit Time:03/31/2019 Your [...] ? Using the bathroom. ? Using household service officer or poisonous chemicals. ? Touching or taking [...] 07/05/2009 Document Revised: 12/28/2016 Document Reviewed: 12/18/2014 [employer] an [employer] Interactive Patient Education ?? 2018 [employer] an [employer] Fall Prevention in the Home, Adult [...] Keep items that you use often in nqht-xw-qsdts places. Lower the shelves around your home [...] the way. ??? Do not use floor syriac or wax that makes floors slippery. If [...] Control and Prevention, STEADI: https://cdc.gov ??? National [place] on Aging: https://gp9eywf.joe.nih.gov Contact a doctor if: ??? You are [...] 05/19/2010 Document Revised: 03/07/2018 Document Reviewed: 03/07/2018 [employer] an [employer] Interactive Patient Education ?? 2019 [employer] an [employer] What to expect after the Procedure: [...] Barley. Bulgur wheat. Millet. Bran muffins. Popcorn. [place] wafer crackers. Vegetables Sweet potatoes. Spinach. Kale. Artichokes. Cabbage. Broccoli. Green peas. Carrots. Squash. Fruits Berries. Pears. Apples. Oranges. Avocados. Prunes and raisins. Dried figs. Meats and Other Protein Sources [place], kidney, mariscal, and soy beans. Split peas. [...] davey has 11 g of protein. ??? [place] seeds ??? 1 oz has 5.5 g [...] floor. ??? Place frequently used items in owbc-qt-ubwrh places ??? Keep electrical cables out of [...] ??? Using the bathroom. ??? Using household service officer or toxic chemicals. ??? Touching or taking [...] may report side effects to FDA at 9-073-BYI-9755. What other drugs will affect acetaminophen and [...] affect acetaminophen and oxycodone, including prescription and zllt-sfs-kffzrsd medicines, vitamins, and herbal products. Not all [...] to ensure that the information provided by [employer]. ('[employer]') is accurate, up-to-date, and complete, but no guarantee is made to that effect. Drug information contained herein may be time sensitive. [employer]able information has been compiled for use by healthcare practitioners and consumers in the [place] and therefore [employer] does not warrant that uses outside of the [place] are appropriate, unless specifically indicated otherwise. [employer] drug information does not endorse drugs, diagnose patients or recommend therapy. [employer] drug information is an informational resource designed [...] effective or appropriate for any given patient. [employer] does not assume any responsibility for any aspect of healthcare administered with the aid of information [employer] provides. The information contained herein is not intended to cover all possible uses, directions, precautions, warnings, drug interactions, allergic reactions, or adverse effects. If you have questions about the drugs you are taking, check with your doctor, nurse or pharmacist. Copyright 0241-4491 [employer]. Version: 18.02. Revision Date: 07/03/2018. Emergency Awareness [...] Assistance with quitting is available by contacting 8-434-SHEONOW. This is a free resource providing counseling, [...] range between ( 1.0 and 7.0 ) Hickman #: 0.90 K/uL -- Normal range between ( 0.24 and 0.82 ) Eos #: 0.22 K/uL -- Normal range between ( 0.04 and 0.54 ) Hickman %: 8.6 % -- Normal range between [...] ) Urine Bilirubin Dipstick: Negative Urine Specific [place]: 1.014 -- Normal range between ( 1.005 and 1.030 ) Urine Type.: U [employer] General Chemistry 04/01/19 03:11:00 Creatinine Level: 0.82 [...] was given the opportunity to ask questions. Patient/Water Engineer Name: Patient/Water Engineer Signature: Relationship to Patient: Clinician/Hospital Water Engineer Signature: Date: documented in this encounter Plan of Treatment Not on file documented as of this encounter Visit Diagnoses Not on filedocumented in this encounter
--- OUTSIDE RECORDS SUMMARY | 2025-07-03 19:01 | XMS_ITS | Encounter Summary ---
Author Organization [employer] ([place], [place], [place], [place], [place]) Address [address] [place] [address] Care Team Providers Care Spanish Tutor Name Role Phone Unavailable Primary Care Provider Unavailabl e Encounter Details Date Type Department Care Team (Late st Contact Info) Description 03/31/2019 Transcribed Document [facility] [place] [facility] [address] ProviderSb MD [address] [place] [address] Social History Tobacco Use Types Packs/Day [...] Source : Measured Height Entry Format : Peach Height, Feet : 5 ft(Converted to: 152 cm, 60 Inch) Height, Inches : 1 Inch(Converted to: 0 ft 1 Inch, 2.54 cm) Clinical Height : 154.94 cm Weight Source : Standing scale Weight Entry Format : Peach Clinical Dosing Weight : 82.27 kg Weight, Pounds : 181 lb Body Surface Area (BSA) : 1.81 m2 Body Mass Index : 34.3 kg/m2 (HI) Carrington Body Weight : 47 kg KAIN CURZ RN - 03/31/2019 7:16 EDT Health Histories [...] #2 Relationship : . Primary Language : Kosovan Communication Barrier : None Objects to Sharing [...] Scale Risk Level : 0-24 Low Risk Morrow Fall Interventions : Assistive devices within reach, [...]
--- OUTSIDE RECORDS SUMMARY | 2025-07-03 19:01 | XMS_ITS | Data Portability ---
Author Organization [facility] SUNNY Parkinson [place] CLOSED Address [address] [facility] [facility] [address] [place] [address] Care Team Providers Care Special Education Para Professional Name Role Phone YARITZA MARIN Primary Care [...] sis, dipstic k, auto 018 12/14/19 18 [email or web address] [facility]ly [facility], [facility], [address] [place] [address] , [address], [place], [address], 8 20:43:45 culture , urine 018 12/14/19 18 [facility], [address] [place] [address], [place], [address], 8 08:44:07 Referral None recorde d. Procedures None recorde d. Surgeries None recorde d. Imaging None recorde d. Medication Orders None recorde d. Patient TargetsNo targets recorded. Patient Instructions Encounter Date Encounter Id Patient Instructions Last Modified By Organization Details Last Modified Time 12/13/2017 [id number] healthy together [email or web address] Not availa ble 12/13/2017 20:43:45 Female Urinary Tract Infection (UTI): Care Instructions [email or web address] Not available 12/13/2017 20:43:45 learning about high blood pressure [email or web address] Not available 12/13/2017 20:43:45 kidney stone: care instructions [email or web address] Not available 12/18/2017 11:59:52 learning about diet for kidney stone prevention [email or web address] Not available 12/18/2017 11:59:52 Reason for Referral None Reported. Results Created Date Observation Date Name Description Value Unit Range Abnormal Flag Note LastModifiedBy Organization Detail LastModifiedTime 12/14/19 18 12/13/2017 urina lysis , dipst ick, auto Unknown Analyte Yellow Not Available [address], [place], [address], 12/13/2017 18:12:50 12/14/19 18 12/13/2017 urina lysis , dipst ick, auto Unknown Analyte Clear Not Available [facility] [address], [place], [address], 12/13/2017 18:12:50 12/14/19 18 12/13/2017 urina lysis , dipst ick, auto Unknown Analyte 1.020 Not Available [facility] [address], [place], [address], 12/13/2017 18:12:50 12/14/19 18 12/13/2017 urina lysis , dipst ick, auto Unknown Analyte 5.0 Not Available [facility] [address], [place], [address], 12/13/2017 18:12:50 12/14/19 18 12/13/2017 urina lysis , dipst ick, auto Unknown Analyte 500 Ruddy/ul (++) Not Available [facility] [address], [place], [address], 12/13/2017 18:12:50 12/14/19 18 12/13/2017 urina lysis , dipst ick, auto Unknown Analyte Negati ve Not Available [facility] With [address] [place], [place], [address], 12/13/2017 18:12:50 12/14/19 18 12/13/2017 urina lysis , dipst ick, auto Unknown Analyte Negtiv e Not Available [facility] With [address] [place], [place], [address], 12/13/2017 18:12:50 12/14/19 18 12/13/2017 urina lysis , dipst ick, auto Unknown Analyte Normal Not Available [facility] With [address] [place], [place], [address], 12/13/2017 18:12:50 12/14/19 18 12/13/2017 urina lysis , dipst ick, auto Unknown Analyte Negati ve Not Available [facility] [address] [place], [place], [address], 12/13/2017 18:12:50 12/14/19 18 12/13/2017 urina lysis , dipst ick, auto Unknown Analyte Normal Not Available [facility] With [address] [place], [place], [address], 12/13/2017 18:12:50 12/14/19 18 12/13/2017 urina lysis , dipst ick, auto Unknown Analyte Negati ve Not Available [facility] With [address] [place], [place], [address], 12/13/2017 18:12:50 12/14/19 18 12/13/2017 urina lysis , dipst ick, auto Unknown Analyte 50 Tony/ul Not Available [facility] With [address], [place], [address], 12/13/2017 18:12:50 12/14/19 18 12/13/2017 urina lysis , dipst ick, auto Unknown Analyte Clean Catch Not Available [facility] With [address], [place], [address], 12/13/2017 18:12:50 12/14/19 18 12/13/2017 urina lysis , dipst ick, auto Unknown Analyte Automa paras Not Available [facility] [address], [place], [address], 12/13/2017 18:12:50 12/14/19 18 12/13/2017 cultu re, urine results [facility] e: CCUR Colle cted: 12/13 18:14 Site: Recei fawad : 12/14 09:06 URINE SCREE N(CUL TURE) FINAL 12/17 11:16 12/17 COLON Y COUNT : 10,00 0 - 100,0 00 CFU/M L Three or more isola rolo; mixed skin monique . Not Available [facility] [address] [place] [address], [address], 12/17/2017 11:16:32 12/15/19 18 05/08/2017 CT, abdom en + pelvi s, w/o contr ast No observ ation record ed. [email or web address] Not Available 12/04 13:00:45 03/07/20 18 11/08/2017 CT, abdom en + pelvi s, w/o contr ast No observ ation record ed. BARCODE Not Available 2017 08:35:03 08/22/19 19 08/22/2018 fluor oscop y (PROC ) No observ ation record ed. [email or web address] [facility] [place] [address] [address] [facility] [address], [place], [place], [id number], 08/26/2018 07:53:35 08/29/19 19 08/29/2018 XR, abdom en, 1 view No observ ation record ed. [address] [facility] [place] [address] [place], [id number], 09/02/2018 15:41:08 09/12/19 19 09/12/2018 XR, abdom en, 1 view No observ ation record ed. [address] [facility] [place] [address] [address] [place], [id number], 09/16/2018 15:23:48 Result Notes None recorded. Problems Name Problem SNOMED Code Status Onset Date Resolution Date Notes Provider Name and Address Organization Details Recorded Time Kidney stone 36259310 Active 018 Murelene Atul [facility] 12/13/2017 18:08:39 Problem Notes None recorded. Procedures Surgical History Date Name Laterality Status Provider Name and Address Organization Details Recorded Time Cholecystectomy completed Murelene Atul [facility] 12/13/2017 18:09:19 Appendectomy completed Murelene Atul [facility] 12/13/2017 18:09:22 Hysterectomy completed Murelene Atlu [facility] 12/13/2017 18:09:27 [facility] 12/13/2017 18:09:35 [facility] 12/13/2017 18:09:43 Xcapsl ctrc rmvl cplx wo ecp completed Murelene Atul [facility] 12/13/2017 18:10:24 Imaging Results None recorded. Procedure Notes None recorded. Medical Equipment None Reported. Allergies Allergen ID Allergen Name Allergen Category Reaction Reaction Severity Criticality Documentation Date Start Date Code Code System Note Provider Name and Address Organization Details Recorded Time 054232 Keflex medicatio n Not available Not available Not available 06/30/20162013 05543 7 RxNorm Comme nt: Creat ed By: Yany crain Date: 014 1:57: 39 PM; Not Available [facility] 6 05:28:44 250192 Iodinated contrast media (substanc e) medicatio n Not available Not available Not available 12/13/2017 83092 2004 SNOMED Mathieumigel Atul [facility] 8 18:06:57 Medications Name Sig [...] Updated DateTime 12/13/2017 154.94 cm 34.2 kg/m2 10709.22 g 140/60 mm[Hg] Rickautumnmigel Atul [facility] 12/13/2017 18:06:44 Social History Question Answer Notes LastModified by Organizat ion Details LastModified Time Tobacco Smoking Status Former Smoker Mathieumigel Atul [facility] 12/13/2017 18:09:02 What Was The [...] ICD10 Code Diagnosis IMO Codes Diagnosis Note [id number] JEY SAM MD [facility] [address] [place] [address],[place] [address] 12/13/2017 15:35:16 12/18/2017 12:30:05 Urinary tract infectious disease 46369764 N39.0 Kidney stone 11929355 N2 0.0 Health Concerns Section Related Observation LastModified by Organization Detai ls LastModified Time None Recorded Concern Status LastModified by Organization Details LastModified Time None Recorded Advance Directives Directive None Recorded Payers Insurance Date Sequence Insurance Name Policy Number Policy Alexander Covered Member ID Alexander Member ID Guarantor Name 12/17/2017 1 [employer] - CHOICECARE (PPO) Samara Hayward [id number] Samara Hayward 07/10/2021 1 [employer] (MEDICARE REPLACEMENT/A DVANTAGE - PPO) Samara Hayward [id number] Samara [place] 12/18/2017 GENERIC INSURANCE - MOVED-HOLD Samara Hayward [...] dysuria. She denies nocturia. JEY SAM MD [address] [place] [address], [address], [facility] 12/18/2017 12:01:48 OBGyn Episode No OBEpisode recorded.
--- OUTSIDE RECORDS SUMMARY | 2025-07-03 19:01 | XMS_ITS | Clinical Summary ---
Author Organization [facility] , [facility] Address [address] [place] [address] Phone Care Team Providers Care Hedis Specialist Name Role Phone JOHNSON GONCALVES DO Primary Care Provider [phone] Adrián Swenson MD Unavailable [phone] Rafi Roberts MD Unavailable [phone] Reason for Visit and Chief Complaint BRACE FITTING Problems Includes: Problems addressed during this encounter and other active Problems All Visits Onset Date Resolved Date Provider Condition S tatus Lower Back Pain 01/07/2024 Constantine Garcia PA-C A ctive Last Documented On 4 1:00PM ; [facility] Joint Pain Hip Left 07/19/2016 Catracho Rubio MD Active Last Documented On 6 2:14PM ; [facility], [facility] Joint Pain Knee 10/14/2013 Catracho Rubio MD A ctive Last Documented On 4 2:09PM ; [facility], [facility] Plan of Treatment No Plan of Treatment [...] On 4 1:30PM By Radha [facility] ; [facility] Klor-Con M20 20 MEQ Oral Tablet Extended Release 01/06 Provider: Diagnosis: Last Documented On 4 1:31PM By Radha [facility] ; [facility] Phenazopyridine HCl 200 MG Oral Tablet 01/04/2024 Pr ovider: Diagnosis: Last Documented On 4 1:02PM By Radha [facility] ; [facility] Symbicort 160-4.5 MCG/ACT Inhalation Aerosol Provider: Diagnosis: Last Documented On 4 1:02PM By Radha [facility] ; [facility] Nitrofurantoin Monohyd Macro 100 MG Oral Capsule 12/18 Provider: Diagnosis: Last Documented On 4 1:02PM By Radha [facility] ; [facility] Premarin 0.625 MG/GM Vaginal Cream 12/14/2023 Provid er: Diagnosis: Last Documented On 4 1:02PM By Radha [facility] ; [facility] traMADol HCl 50 MG Oral Tablet 12/14/2023 Provider: MARIIA OLIVAS MD Diagnosis: Last Documented On 4 1:02PM By Radha [facility] ; [facility] Nystatin 933800 UNIT/GM External Ointment 12/03/2023 Provider: Diagnosis: Last Documented On 4 1:02PM By Radha [facility] ; [facility] Atorvastatin Calcium 20 MG Oral Tablet 11/21/2023 Pr ovider: MARIIA OLIVAS MD Diagnosis: Last Documented On 4 1:30PM By Radha [facility] ; [facility] Potassium Chloride Zaina ER 2 0 MEQ Oral Tablet Extended Release 09/08/2023 Provider: Kathleen Sanderson APRN Diagnosis: Last Documented On 4 1:02PM By Radha [facility] ; [facility] Furosemide 20 MG Oral Tablet 08/16/2023 Provider: Kathleen Sanderson APRN Diagnosis: Last Documented On 4 1:02PM By Radha [facility] ; [facility] Ipratropium-Albuterol 0.5-2.5 (3) MG/3ML Inhalat ion Solution 08/01/2023 Provider: Diagnosis: Last Documented On 4 1:31PM By Radha [facility] ; [facility], [facility] Medications Administered Includes: Administered Medications from this [...] ve Last Documented On 4 9:47AM ; [facility], [facility] Keflex Allergy 10/14/2013 Active Last Documented On 4 9:47AM ; [facility], [facility] Betadine Allergy 10/14/2013 Active Last Documented On 4 9:47AM ; [facility], [facility] Bactroban Allergy 03/28/2019 Active Last Documented On 4 9:47AM ; [facility], [facility] Encounters Encounter Provider Location Date Check-In Time Check-Out Time Diagnosis BRACE FITTING Catracho Rubio MD [facility] 06/11/2019 2:19PM 11:59PM Insurance Includes: Active Insurance Policies Plan Name Member ID Group # Subscriber Relationship Effect etelvina Dates 1 - [employer]-MEDICARE [id number] Samara Hayward Self 07/16/2019 - Unknown Clinical Notes Includes: Clinical Notes from this encounter No Clinical Notes Recorded
--- OUTSIDE RECORDS SUMMARY | 2025-07-03 19:01 | XMS_ITS | Clinical Summary ---
Author Organization [facility] Address [address] [place] [address] Phone Care Team Providers Care Epilepsy Physician Name Role Phone JOHNSON GONCALVES DO Primary Care Provider [phone] Adrián Swenson MD Unavailable [phone] Rafi Roberts MD Unavailable [phone] Reason for Visit and Chief Complaint The Chief Complaint is: Left hip pain Problems Includes: Problems addressed during this encounter and other active Problems Current Visit Onset Date Resolved Date Provider Conditio n Status Lower Back Pain 01/07/2024 Constantine Garcia PA-C A ctive Last Documented On 4 1:00PM ; [facility] Past Visits Onset Date Resolved Date Provider Condition Status Joint Pain Hip Left 07/19/2016 Catracho Rubio MD Active Last Documented On 6 2:14PM ; [facility] Joint Pain Knee 10/14/2013 Catracho Rubio MD A ctive Last Documented On 4 2:09PM ; [facility] Plan of Treatment She was provided a referral to our orthospine team and Dr. Roberts for further evaluation of the lumbar spine. She will follow up with our office on an as- needed basis and will contact us if she has any questions or concerns in the meantime. - Last Documented On 05/05/2021 1:38PM ; [facility] Assessments Includes: Assessments from this encounter [...] - Last Documented On 05/05/2021 1:38PM ; [facility] Medical Equipment - Implanted Devices Includes: Current Devices No Medical Equipment Recorded Medications Includes: Medications discussed during this encounter and other current Medications Discontinued / Stopped on this date Catracho Rubio MD on 09/26/2019 Valium 5 MG Oral Tablet Provider: Catracho Rubio MD Diagnosis: Last Documented On 1 1:43PM By Janelle Pendleton ; [facility], [facility] [place] 5-325MG Oral Tablet Provider: Hugh Quiroga MD Diagnosis: Last Documented On 1 1:43PM By Janelle Pendleton ; [facility], [facility] Xarelto 10MG Oral Tablet Provider: Norris Rbuio MD Diagnosis: Last Documented On 1 1:43PM By Janelle Pendleton ; [facility] Aspirin 325MG Oral Tablet Provider: Rebecca Rubio MD Diagnosis: Last Documented On 1 1:43PM By Janelle Pendleton ; [facility], [facility] Percocet 7.5-325MG Oral Tablet Provider: Catracho Rubio MD Diagnosis: Last Documented On 1 1:43PM By Janelle Pendleton ; [facility], [facility] Zofran 4MG Oral Tablet Provider: Catracho Rubio MD Diagnosis: Last Documented On 1 1:43PM By Janelle Pendleton ; [facility] Mupirocin 2% External Ointment Provider: Catracho Rubio MD Diagnosis: Last Documented On 1 1:43PM By Janelle Pendleton ; [facility], [facility] Percocet 7.5-325 MG OR TABS Provider: Catracho Rubio MD Diagnosis: Last Documented On 1 1:43PM By Janelle Pendleton ; [facility] Lortab 7.5-500 MG OR TABS Provider: Rebecca Rubio MD Diagnosis: Last Documented On 1 1:42PM By Janelle Pendleton ; [facility] Percocet 5-325 MG OR TABS Provider: Rebecca Rubio MD Diagnosis: Last Documented On 1 1:42PM By Janelle Pendleton ; [facility] traMADol HCl 50 MG OR TABS Provider: Macho Rubio MD Diagnosis: Last Documented On 1 1:43PM By Janelle Pendleton ; [facility] traMADol HCl 50 MG OR TABS Provider: Macho Rubio MD Diagnosis: Last Documented On 1 1:42PM By Janelle Pendleton ; [facility] traMADol HCl 50 MG OR TABS Provider: Macho Rubio MD Diagnosis: Last Documented On 1 1:42PM By Janelle Pendleton ; [facility] Relafen 500 MG OR TABS Provider: Catracho Rubio MD Diagnosis: Last Documented On 1 1:42PM By Janelle Pendleton ; [facility] Lortab 5-500 MG OR TABS Provider: Catracho Rubio MD Diagnosis: Last Documented On 1 1:42PM By Janelle Pendleton ; [facility] Lortab 5-500 MG OR TABS Provider: Catracho Rubio MD Diagnosis: Last Documented On 1 1:42PM By Janelle Pendleton ; [facility] Percocet 5-325 MG OR TABS Provider: Rebecca Rubio MD Diagnosis: Last Documented On 1 1:42PM By Janelle Pendleton ; [facility] Current Medications (continue as prescribed) diphenhydrAMINE HCl 5 MG/ML Oral Suspension Reconstitu paras 01/07/2024 Provider: Diagnosis: Last Documented On 4 1:30PM By Radha Stafford ; [facility] Klor-Con M20 20 MEQ Oral Tablet Extended Release 01/06 Provider: Diagnosis: Last Documented On 4 1:31PM By Radha Stafford ; [facility] Phenazopyridine HCl 200 MG Oral Tablet 01/04/2024 Pr ovider: Diagnosis: Last Documented On 4 1:02PM By Radha Stafford ; [facility] Symbicort 160-4.5 MCG/ACT Inhalation Aerosol 4 Provider: Diagnosis: Last Documented On 4 1:02PM By Radha Stafford ; [facility] Nitrofurantoin Monohyd Macro 100 MG Oral Capsule 12/18 Provider: Diagnosis: Last Documented On 4 1:02PM By Radah Stafford ; [facility] Premarin 0.625 MG/GM Vaginal Cream 12/14/2023 Provid er: Diagnosis: Last Documented On 4 1:02PM By Radha Stafford ; [facility] traMADol HCl 50 MG Oral Tablet 12/14/2023 Provider: KHADAR OLIVAS MD Diagnosis: Last Documented On 4 1:02PM By Radha Stafford ; [facility] Nystatin 349199 UNIT/GM External Ointment 12/03/2023 Provider: Diagnosis: Last Documented On 4 1:02PM By Radha Stafford ; [facility] Atorvastatin Calcium 20 MG Oral Tablet 11/21/2023 Pr ovider: KHADAR OLIVAS MD Diagnosis: Last Documented On 4 1:30PM By Radha Stafford ; [facility] Potassium Chloride Zaina ER 2 0 MEQ Oral Tablet Extended Release 09/08/2023 Provider: Kathleen Sanderson APRN Diagnosis: Last Documented On 4 1:02PM By Radha Stafford ; [facility] Furosemide 20 MG Oral Tablet 08/16/2023 Provider: Kathleen Sanderson APRN Diagnosis: Last Documented On 4 1:02PM By Radha Stafford ; [facility] Ipratropium-Albuterol 0.5-2.5 (3) MG/3ML Inhalat ion Solution 08/01/2023 Provider: Diagnosis: Last Documented On 4 1:31PM By Radha Stafford ; [facility] Medications Administered Includes: Administered Medications from this encounter No Administered Medications Recorded Vital Signs Includes: Vital Signs from this encounter Vital Name 02/22/2021 01:43P Blood Pressure Sitting (mmHg) 120/63 Pulse Rate-Sitting (bpm) 72 Height (in) 61 Weight (lb) 196 Body Mass Index (kg/m2) 37.0 Body Surface Area (m2) 1.9 Note: ss Last Documented: On 02/22/2021 1:52PM ; [facility] Results Includes: Results discussed during this [...] and was referred to Dr. Cheung and sd for the continuance of care. She is [...] with the appointment because they required a [place] MRI and she is unable to have an MRI that is not in the open format. She denies medical history of DVT/PE, myocardial infarction, diabetes mellitus, stroke, coronary artery disease, renal disease, atrial fibrillation and blood disorder. Denies past and current tobacco use. She is retired and lives at home with her . Social History Description Last Updated Non-smoker 02/22/2021 Last Documented On 1 1:38PM ; [facility] Smoking Status Unknown Procedures and Surgical History Includes: Procedures from this encounter Procedures Code Diagnosis Performing Provider Service L ocation Service Date use of tobacco assessment performed 1000F Last Documented On 1 1:44PM ; [facility] Pt received screening for fall risk G8270 Last Documented On 1 1:44PM ; [facility] Medical History Includes: Medical History addressed [...] ve Last Documented On 4 9:47AM ; [facility] Keflex Allergy 10/14/2013 Active Last Documented On 4 9:47AM ; [facility] Betadine Allergy 10/14/2013 Active Last Documented On 4 9:47AM ; [facility] Bactroban Allergy 03/28/2019 Active Last Documented On 4 9:47AM ; [facility] Encounters Encounter Provider Location Date Check-In Time Check-Out Time Diagnosis Physician Specified Maldonado Cheung MD [facility] 02/23/20 21 1:26PM 2:32PM Insurance Includes: Active Insurance Policies Plan Name Member ID Group # Subscriber Relationship Effect etelvina Dates 1 - [employer] [id number] Samara Hayward Self 07/16/2019 - Unknown Clinical Notes Includes: Clinical Notes from this encounter No Clinical Notes Recorded
--- OUTSIDE RECORDS SUMMARY | 2025-07-03 19:01 | XMS_ITS | Encounter Summary ---
Author Organization [employer] ([place], [place], [place]) Address [address] [place] [address] Care Team Providers Care Rehabilitation Case Coordinator Name Role Phone Unavailable Primary Care Provider Unavailabl e Encounter Details Date Type Department Care Team (Late st Contact Info) Description 03/31/2019 Transcribed Document [facility] Family Medicine [facility] [place] [address] ProviderSb MD [address] [place] [address] Social History Tobacco Use Types Packs/Day [...]
--- OUTSIDE RECORDS SUMMARY | 2025-07-03 19:01 | XMS_ITS | Encounter Summary ---
Author Organization [employer] ([place], [place], [place]) Address [address] [place] [address] Care Team Providers Care Client Success Director Name Role Phone Unavailable Primary Care Provider Unavailabl e Encounter Details Date Type Department Care Team (Late st Contact Info) Description 04/03/2019 Transcribed Document [facility] Family Medicine [facility] [place] [address] ProviderSb MD [address] [place] [id number] Social History Tobacco Use Types Packs/Day [...] On: 04/03/2019 18:17 EDT by Giuliana Munroe fur puller Documentation Discharge Date/Time : 04/03/2019 15:45 EDT Patient Disposition, General : Discharge Discharge To : Home with ambulatory/outpatient follow-up Giuliana Munroe RN - 04/03/2019 18:17 EDT documented in this encounter Plan of Treatment Not on file documented as of this encounter Visit Diagnoses Not on filedocumented in this encounter
--- OUTSIDE RECORDS SUMMARY | 2025-07-03 19:01 | XMS_ITS | Encounter Summary ---
Author Organization [employer] ([place], [place], [place]) Address [address] [place] [address] Care Team Providers Care Marine Equipment Engineer Name Role Phone Unavailable Primary Care Provider Unavailabl e Encounter Details Date Type Department Care Team (Late st Contact Info) Description 03/31/2019 Transcribed Document [facility] Family Medicine [facility] [place] [address] ProviderSb MD [address] [place] [address] Social History Tobacco Use Types Packs/Day [...]
--- OUTSIDE RECORDS SUMMARY | 2025-07-03 19:01 | XMS_ITS | Encounter Summary ---
Author Organization [employer] ([place], [place], [place]) Address [address] [place] [address] Care Team Providers Care Plastic Parts Fabricator Name Role Phone Unavailable Primary Care Provider Unavailabl e Encounter Details Date Type Department Care Team (Late st Contact Info) Description 03/31/2019 Transcribed Document [facility] [place] [facility] [place] [address] ProviderSb MD [address] [place] [address] Social History Tobacco Use Types Packs/Day [...] PT Evaluation and Treatment Ordered By: YAMILETH OEMR MD-ORT Active Diagnoses : No Qualifying Diagnoses [...] LUIS WALLACE, PT - 03/31/2019 13:49 EDT Snf Goals Other PT LTG Grid Goal #1 [...] 4 Pain Score Post-Intervention. : 4 LUIS WALLACE, PT - 03/31/2019 14:06 EDT Image 1 [...]
--- OUTSIDE RECORDS SUMMARY | 2025-07-03 19:01 | XMS_ITS | Encounter Summary ---
Author Organization [employer] ([place], [place], [place], [place]) Address [address] [place] [address] Care Team Providers Care Transit Bus Driver Name Role Phone Unavailable Primary Care Provider Lisset e Encounter Details Date Type Department Care Team (Late st Contact Info) Description 03/31/2019 Transcribed Document [facility] [place] [facility] [place] [address] ProviderSb MD [address] [place] [address] Social History Tobacco Use Types Packs/Day [...] SAMARAASHVIN AlvaradoO.B./Sex: 1945 Female Med Rec #: [id number] Physician: YAMILETH OMER MD-ORT Financial #: [id number] Pt. Type: I Room/Bed: [facility]/ Admit/Disch: 03/31/19 04:43:00 - Institution: [facility] Case Attendance Entry 1 Entry 2 Entry 3 Case Attendee YAMILETH OMER MD-ORT Davis, Aleitha E, JEWELL HART Role Performed Surgeon/Proceduralist, Director Of Cath Lab, First Scrub, Second First Time In 03/31/19 [...] 5 Entry 6 Case Attendee Topher Dukes, Salvage Clerk MIYA HERNANDEZ FA REYNOLDS, SHIRLEY Role Performed Scrub, Driveway Sealer, First Director Of Fundraising Time In 03/31/19 07:37:00 03/31/19 07:37:00 03/31/19 [...] ATTENDEE #1 OTHER, ATTENDEE #2 Role Performed COOK FISHING VESSEL/Nurse Pressure Tester Video Game Producer, Ancillary Vendor Time In 03/31/19 07:37:00 03/31/19 [...] Case Attendee KAIN SLAUGHTER, CARMITA Role Performed Director Of Cath Lab, Second Time In 03/31/19 09:15:00 Time Out 03/31/19 09:30:00 Procedure Hip Total Anterior Approach Other Attendee Superficial Wound Closed By: Last Modified By: Liliana Royal RN 03/31/19 10:56:51 [facility] Intra[facility] Case Attendance Audit 03/31/19 10:56:51 Leasing Representative: ALEITHADAVIS Modifier: ALEITHADAVIS 1 <+> Time Out [...] Procedure Hip Total Anterior Approach 03/31/19 10:13:35 Leasing Representative: ALEITHADAVIS Modifier: ALEITHADAVIS 3 <+> Time Out 3 <*> Procedure Hip Total Anterior Approach 03/31/19 10:00:12 Leasing Representative: ALEITHADAVIS Modifier: ALEITHADAVIS 10 <+> Time Out 10 <*> Procedure Hip Total Anterior Approach 03/31/19 09:17:35 Leasing Representative: ALEITHADAVIS Modifier: ALEITHADAVIS <+> 10 Case Attendee <+> 10 Role Performed <+> 10 Time In <+> 10 Procedure 03/31/19 08:26:59 Leasing Representative: ALEITHADAVIS Modifier: ALEITHADAVIS <+> 1 Procedure 2 [...] Procedure Hip Total Anterior Approach 03/31/19 08:22:52 Leasing Representative: ALEITHADAVIS Modifier: ALEITHADAVIS <+> 2 Case Attendee [...] [facility] IntraOp Case Times Audit 03/31/19 10:56:50 Leasing Representative: ALEITHADAVIS Modifier: ALEITHADAVIS <+> 1 Out Room Time <+> 1 Stop Time 03/31/19 10:49:20 Leasing Representative: ALEITHADAVIS Modifier: ALEITHADAVIS <+> 1 Stop Time 03/31/19 08:21:21 Leasing Representative: ALEITHADAVIS Modifier: ALEITHADAVIS <+> 1 Start Time [...] Performed By Count Performed By Topher Dukes Salvage Clerk Topher Dukes Scrub Tech (Scrub) Count Performed By Liliana Royal RN Davis, Aleitha E, RN (RN) Last Modified By: Liliana Royal RN Davis, Aleitha E, RN 03/31/19 08:24:27 03/31/19 10:13:45 [facility] IntraOp Counts Verification Audit 03/31/19 10:13:45 Leasing Representative: ALEITHADAVIS Modifier: ALEITHADAVIS <+> 2 Procedure <+> [...] [facility] IntraOp Counts Final Audit 03/31/19 10:13:50 Leasing Representative: ALEITHADAVIS Modifier: ALEITHADAVIS 1 <*> Procedure Hip Total Anterior Approach 1 <+> Count Performed By (Scrub) [facility] IntraOp Cultures and Spec Summary Entry 1 Cultrures and Specimens Specimen Ordered: Yes Test(s) Routine/Path-Lab Requested/Final Disposition Last Modified By: Liliana Royal RN 03/31/19 08:23:36 [facility] IntraOp Delays Entry 1 Delay Reason Other Duration 7 Minute(s) Comment PATIENT REQUESTED CHIEF ENGINEER PRODUCTION WHEN OR NURSE ENTERED BAY Last Modified [...] RN 03/31/19 08:24:48 [facility] IntraOp General Case Outdoor Studies Professor 1 Case Information OR OR 02 SJE [...] SZ C STEM FEM POR Identification OSSEO [id number] [id number] Description Implant Quantity 1 1 1 Implant Site LEFT HIP LEFT HIP LEFT HIP Implant Identification Model Number Implant Identification Serial Number Implant [id number] Identification Lot Number Implant Biomet Biomet Biomet Identification Sales Development Representative Name: Implant [id number] Identification Catalog Number Implant Size Implant Has an Yes Yes Yes Expiration Date Implant Expiration 11/07/28 06/25/23 08/05/28 Date Wasted Radioactive Material Time Implanted Tissue Implant Continue for Tissue Implant Documentation Tissue Identification Number Graft Prep Per Sales Development Representative Instructions: Tissue Preparation Method: Reconstitution Solution: Reconstitution Solution Lot Number Reconstitution Solution Expiration Date: Thawing Solution Thawing Solution Lot Number Thawing Solution Expiration Date Preparation Materials, Other Preparation Materials, Other Lot Number Preparation Materials, Other Expiration Date Tissue Prepared/Processed By Sales Development Representative Paperwork Completed Implant Type Comment Last Modified By: Liliana Royal RN Davis, Aleitha E, RN Davis, Aleitha E, RN 03/31/19 09:15:28 03/31/19 09:18:11 03/31/19 10:09:08 Entry 4 Entry 5 Type Implant (Synthetic) Implant (Synthetic) Implant Log Implant Type Hardware Hardware Tissue Implant Type Implant ADAPTER TAPER BIOLOX HEAD CERAMIC BIOLX 32MM Identification OPTION -[id number] Description Implant Quantity 1 1 Implant Site LEFT HIP left hip Implant Identification Model Number Implant Identification Serial Number Implant [id number] Identification Lot Number Implant Biomet Biomet Identification Sales Development Representative Name: Implant [id number] Identification Catalog Number Implant Size Implant Has an Yes Yes Expiration Date Implant Expiration 07/05/28 11/07/28 Date Wasted Radioactive Material Time Implanted Tissue Implant Continue for Tissue Implant Documentation Tissue Identification Number Graft Prep Per Sales Development Representative Instructions: Tissue Preparation Method: Reconstitution Solution: Reconstitution Solution Lot Number Reconstitution Solution Expiration Date: Thawing Solution Thawing Solution Lot Number Thawing Solution Expiration Date Preparation Materials, Other Preparation Materials, Other Lot Number Preparation Materials, Other Expiration Date Tissue Prepared/Processed By Sales Development Representative Paperwork Completed Implant Type Comment Last Modified By: Liliana Royal RN Davis, Aleitha E, RN 03/31/19 10:09:08 03/31/19 10:09:45 [facility] IntraOp Implant Log Audit 03/31/19 10:09:45 Leasing Representative: JIM Modifier: ALEITHADAVIS <+> 5 Implant Identification Description <+> 5 Implant Identification Lot Number <+> 5 Implant Identification Sales Development Representative Name: <+> 5 Implant Expiration Date <+> 5 Implant Site <+> 5 Implant Quantity <+> 5 Implant Identification Catalog Number <+> 5 Implant Type <+> 5 Implant Has an Expiration Date <+> 5 Type 03/31/19 10:09:08 Leasing Representative: ALEITHADAVIS Modifier: ALEITHADAVIS <+> 3 Implant Identification Description <+> 3 Implant Identification Lot Number <+> 3 Implant Identification Sales Development Representative Name: <+> 3 Implant Expiration Date <+> 3 Implant Identification Catalog Number <+> 4 Implant Identification Description <+> 4 Implant Identification Lot Number <+> 4 Implant Identification Sales Development Representative Name: <+> 4 Implant Expiration Date <+> 4 Implant Identification Catalog Number 03/31/19 09:18:11 Leasing Representative: ALEITHADAVIS Modifier: ALEITHADAVIS <+> 2 Implant Identification Description <+> 2 Implant Identification Lot Number <+> 2 Implant Identification Sales Development Representative Name: <+> 2 Implant Expiration Date <+> 2 Implant Identification Catalog Number 03/31/19 09:15:28 Leasing Representative: ALEITHADAVIS Modifier: ALEITHADAVIS <+> 1 Implant Identification Description <+> 1 Implant Identification Lot Number <+> 1 Implant Identification Sales Development Representative Name: <+> 1 Implant Expiration Date <+> 1 Implant Identification Catalog Number [facility] IntraOp Intraoperative Assessment Entry 1 Handoff Method [...] heparin 1000units/ml PB irrigation 1000ml 10ml - [id number] solution - [id number] Combo Med List Time Administered Route of CELLSAVER IRRIGANT Administration Dose Dose 13327 1000 Unit of Measure units ml Volume [...] Intra Op Sign Out Audit 03/31/19 10:49:25 Leasing Representative: CHRISTYADAVIS Modifier: ALEITHADAVIS <+> 1 RN Sign [...] [facility] IntraOp Surgical Procedures Audit 03/31/19 10:49:21 Leasing Representative: ALEERINADAVIS Modifier: ALEITHADAVIS <+> 1 Stop SJE [...] Fluoroscopy Fluoroscopy Type C-Arm Site OPERATIVE SITE Surveyor Helper Name KENIA ATKINS Protective Devices Yes Used Last Modified By: Liliana Royal RN 03/31/19 08:27:35 Case Comments <None> Finalized By: Liliana Royal RN Document Signatures Signed By: Liliana Royal RN 03/31/19 10:56 documented in this encounter Plan of Treatment Not on file documented as of this encounter Visit Diagnoses Not on filedocumented in this encounter
--- OUTSIDE RECORDS SUMMARY | 2025-07-03 19:01 | XMS_ITS | Encounter Summary ---
Author Organization [employer] ([place], [place], [place]) Address [address] [place] [address] Care Team Providers Care Co Op Name Role Phone Unavailable Primary Care Provider Unavailabl e Encounter Details Date Type Department Care Team (Late st Contact Info) Description 04/02/2019 Transcribed Document [facility] [place] Family Medicine [facility] [place] [address] ProviderSb MD [address] [place] [address] Social History Tobacco Use Types Packs/Day [...] 04/02/2019 13:15 EDT by DAHIANA ROY, Care Management-Scow Derrick Operator Care Management Progress Note Discharge Arrangements : Patient Post-Acute Information Patient Name: SHARONDA HAYWARD Gender: Female : [birth year] Age: 74 Years No Post-Acute Placement(s) Listed No Post-Acute Service(s) Listed No [place] Referral(s) Listed Discharge Options Discussed with Patient : DME, Home Health DAHIANA ROY, Care Management-Scow Derrick Operator - 04/02/2019 13:15 EDT Narrative Progress Note Narrative Progress Note : today pt is unable to progress with mobility and is agreeable to rehab pending bed availability and insurance. pt has indicated that this has taken more out of her than she expected. she is having more pain and requires more assistance that she thought she would. DAHIANA ROY, Care Management-Scow Derrick Operator - 04/02/2019 13:15 EDT documented in this encounter Plan of Treatment Not on file documented as of this encounter Visit Diagnoses Not on filedocumented in this encounter
--- OUTSIDE RECORDS SUMMARY | 2025-07-03 19:01 | XMS_ITS | Encounter Summary ---
Author Organization [employer] ([place], [place], [place], [place]) Address [address] [place] [address] Care Team Providers Care Inventory Control Coordinator Name Role Phone Unavailable Primary Care Provider Unavailabl e Encounter Details Date Type Department Care Team (Late st Contact Info) Description 04/03/2019 Transcribed Document [facility] [place] [facility] [place] [address] ProviderSb MD [address] [place] [address] Social History Tobacco Use Types Packs/Day [...]
--- OUTSIDE RECORDS SUMMARY | 2025-07-03 19:01 | XMS_ITS | Encounter Summary ---
Author Organization [employer] ([place], [place], [place], [place], [place]) Address [address] [place] [address] Care Team Providers Care Collator Operator Name Role Phone Unavailable Primary Care Provider Unavailabl e Encounter Details Date Type Department Care Team (Late st Contact Info) Description 03/31/2019 Transcribed Document [facility] [place] Medicine [facility] [place] [address] ProviderSb MD [address] [place] [address] Social History Tobacco Use Types Packs/Day [...] On: 04/02/2019 20:50 EDT by ISAIAS BOLTON, Rocket Propellant Plant Supervisor-Nursing Intervention Information: HYDROmorphone Performed by ISAIAS BOLTON, Rocket Propellant Plant Supervisor-Nursing on 04/02/2019 20:20:00 EDT HYDROmorphone,0.5mg IV Push,Peripheral Line 1,Pain (Severe 7-10) Pain Assessment Pain Assessment : Follow-up assessment Pain Scale Goal : 4 Pain Intervention, Drug : Medicated Pain Improved by Intervention : Yes ISAIAS BOLTON, Rocket Propellant Plant Supervisor-Nursing - 04/03/2019 0:08 EDT Electronically signed by Vinita Fountain Conversion Boilermaker Industrial Boilers Cerner at 11/26/2022 2:00 PM CDT documented in this encounter Plan of Treatment Not on file documented as of this encounter Visit Diagnoses Not on filedocumented in this encounter
--- OUTSIDE RECORDS SUMMARY | 2025-07-03 19:01 | XMS_ITS | Encounter Summary ---
Author Organization [employer] ([place], [place], [place], [place], [place]) Address [address] [place] [address] Care Team Providers Care Extrusion Press Operator Name Role Phone Unavailable Primary Care Provider Unavailabl e Encounter Details Date Type Department Care Team (Late st Contact Info) Description 04/03/2019 Transcribed Document [facility] [place] Family Medicine [address] [place] [address] ProviderSb MD [address] [place] [address] Social History Tobacco Use Types Packs/Day [...] On: 04/03/2019 7:36 EDT by ISAIAS BOLTON, Preschool Assistant Director-Nursing Event Note Event Date/Time : 04/03/2019 7:00 EDT Event Location : Assigned room Event Details : Nursing assessment additional narrative Description of Event : Informed Dr. Gamez that pt's refusal for CTA and that patient's HR has been in the 120's. No new orders received. ISAIAS BOLTON, Preschool Assistant Director-Nursing - 04/03/2019 7:36 EDT documented in this encounter Plan of Treatment Not on file documented as of this encounter Visit Diagnoses Not on filedocumented in this encounter
--- OUTSIDE RECORDS SUMMARY | 2025-07-03 19:01 | XMS_ITS | Encounter Summary ---
Author Organization [employer] ([place], [place], [place], [place], [place]) Address [address] [place] [address] Care Team Providers Care Pension Adviser Name Role Phone Unavailable Primary Care Provider Unavailabl e Encounter Details Date Type Department Care Team (Late st Contact Info) Description 04/02/2019 Transcribed Document [facility] [place] Family Medicine [facility] [place] [address] ProviderSb MD [facility] [place] [address] Social History Tobacco Use Types [...] Historical ProviderMD - 04/02/2019 2:00 AM CDT Marriage And Family Social Worker Details Entered On: 04/02/2019 3:43 EDT Performed [...] Sonny Jeong RN - 04/02/2019 3:43 EDT documented in this encounter Plan of Treatment Not on file documented as of this encounter Visit Diagnoses Not on filedocumented in this encounter
--- OUTSIDE RECORDS SUMMARY | 2025-07-03 19:01 | XMS_ITS | Encounter Summary ---
Author Organization [employer] ([place], [place], [place], [place], [place]) Address [address] [place] [address] Care Team Providers Care Patient Care Associate Name Role Phone Unavailable Primary Care Provider Unavailabl e Encounter Details Date Type Department Care Team (Late st Contact Info) Description 04/03/2019 Transcribed Document [facility] [place] [facility] [place] [address] ProviderSb MD [address] [place] [address] Social History Tobacco Use Types Packs/Day [...] she will be discharged to a rehabilitation facility/jail facility. Today patient is awake alert cooperative [...] mL inj 40 mg 0.4 mL, SubCutaneous, [id number] folic acid 1 mg tab 1 mg [...] Oral, Daily phenol 1.4% throat spray 5 [place], Oral, Q2H promethazine 25 mg tab 12.5 [...] Condition: Stable. Radiology Results (Last 48 hours) [id number] -- 03/31/2019 04:43 CR Chest 1 Vw [...]
--- OUTSIDE RECORDS SUMMARY | 2025-07-03 19:01 | XMS_ITS | Encounter Summary ---
Author Organization [employer] ([place], [place], [place], [place], [place]) Address [address] [place] [address] Care Team Providers Care Day Care Assistant Name Role Phone Unavailable Primary Care Provider Unavailabl e Encounter Details Date Type Department Care Team (Late st Contact Info) Description 04/03/2019 Transcribed Document [facility] [place] Family Medicine [address] [place] [address] ProviderSb MD [address] [place] [address] Social History Tobacco Use Types Packs/Day [...] EDT Electronically signed by Vinita Fountain Conversion Developmental Writing Instructor Ceramber at 11/21/2022 4:24 PM CDT documented in this encounter Plan of Treatment Not on file documented as of this encounter Visit Diagnoses Not on filedocumented in this encounter
--- OUTSIDE RECORDS SUMMARY | 2025-07-03 19:01 | XMS_ITS | Encounter Summary ---
Author Organization [employer] ([place], [place], [place], [place], [place]) Address [address] [place] [address] Care Team Providers Care Die Cast Supervisor Name Role Phone Unavailable Primary Care Provider Unavailabl e Encounter Details Date Type Department Care Team (Late st Contact Info) Description 04/02/[address] [facility] [place] Family Medicine [facility] [place] [address] ProviderSb MD [address] [place] [address] Social History Tobacco Use Types Packs/Day [...] a high for risk ???Unsteady and needed rehabilitation/chcf facility Review of Systems Constitutional: No fever, [...] mL inj 40 mg 0.4 mL, SubCutaneous, [id number] folic acid 1 mg tab 1 mg [...] Oral, Daily phenol 1.4% throat spray 5 [place], Oral, Q2H promethazine 25 mg tab 12.5 [...] on CTA results of the chest -Needs rehabilitation/chcf facility. documented in this encounter Plan of Treatment Not on file documented as of this encounter Visit Diagnoses Not on filedocumented in this encounter
--- OUTSIDE RECORDS SUMMARY | 2025-07-03 19:01 | XMS_ITS | Encounter Summary ---
Author Organization [employer] ([place], [place], [place], [place], [place]) Address [address] [place] [address] Care Team Providers Care Machine Tool Technician Instructor Name Role Phone Unavailable Primary Care Provider Unavailabl e Encounter Details Date Type Department Care Team (Late st Contact Info) Description 04/02/2019 Transcribed Document [facility] [place] [facility] [place] [address] ProviderSb MD [address] [place] [address] Social History Tobacco Use Types Packs/Day [...] 04/02/2019 14:20 EDT by DAHIANA ROY, Care Management-Forming Tube Selector Care Management Progress Note Discharge Arrangements : Patient Post-Acute Information Patient Name: SHARONDA HAYWARD Gender: Female : [birth year] Age: 74 Years No Post-Acute Placement(s) Listed No Post-Acute Service(s) Listed No [place] Referral(s) Listed Discharge Options Discussed with Patient : DME, Home Health DAHIANA ROY, Care Management-Forming Tube Selector - 04/02/2019 14:20 EDT Narrative Progress Note Narrative Progress Note : [facility] has availability on [facility] on pending precert DAHIANA ROY, Care Management-Forming Tube Selector - 04/02/2019 14:20 EDT documented in this encounter Plan of Treatment Not on file documented as of this encounter Visit Diagnoses Not on filedocumented in this encounter
--- OUTSIDE RECORDS SUMMARY | 2025-07-03 19:01 | XMS_ITS | Encounter Summary ---
Author Organization [employer] ([place], [place], [place], [place], [place]) Address [address] [place] [address] Care Team Providers Care Glue Spreader Name Role Phone Unavailable Primary Care Provider Unavailabl e Encounter Details Date Type Department Care Team (Late st Contact Info) Description 04/03/2019 Transcribed Document [facility] [place] Medicine [facility] [place] [address] ProviderSb MD [address] [place] [address] Social History Tobacco Use Types Packs/Day [...] On: 04/03/2019 15:08 EDT by Giuliana Munroe, child care centre manager Documentation Patient Disposition, General : Discharge Discharge To : Home with ambulatory/outpatient follow-up Giuliana Munroe RN - 04/03/2019 15:08 EDT Electronically signed by Vinita Fountain Conversion Main Entree Cook And Cashier Charlesner at 11/21/2022 4:01 PM CDT documented in this encounter Plan of Treatment Not on file documented as of this encounter Visit Diagnoses Not on filedocumented in this encounter
--- OUTSIDE RECORDS SUMMARY | 2025-07-03 19:01 | XMS_ITS | Encounter Summary ---
Author Organization [employer] ([place], [place], [place], [place], [place]) Address [address] [place] [address] Care Team Providers Care Auto Body Man Name Role Phone Unavailable Primary Care Provider Unavailabl e Encounter Details Date Type Department Care Team (Late st Contact Info) Description 03/31/2019 Transcribed Document [facility] [place] Family Medicine [facility]placed [facility] [place] [address] ProviderSb MD [address] [place] [address] Social History Tobacco Use Types Packs/Day [...] GEORGE D.O.B./Sex: 1945 Female Med Rec #: [id number] Physician: YAMILETH OMER MD-ORT Financial #: [id number] Pt. Type: I Room[facility]Bed[facility] Admit/Disch: 03/31/19 04:43:00 - Institution: [facility] Main OR PACU Case Times Entry 1 In PACU I 03/31/19 10:52:00 Ready for PACU 03/31/19 12:42:00 Discharge Discharge from PACU 03/31/19 12:42:00 I Last Modified By: Felisha Gastelum Rn Patient Care Bedside 03/31/19 12:49:42 [facility] Main OR PACU Case Times Audit 03/31/19 12:49:42 Chemical Recovery Operator: JEANETH Modifier: JEANETH 1 <*> Ready for PACU Discharge 03/31/19 12:49:00 1 <*> Discharge from PACU I 03/31/19 12:49:00 03/31/19 12:49:26 Chemical Recovery Operator: JEANETH Modifier: JEANETH <+> 1 Ready for PACU Discharge <+> 1 Discharge from PACU I Finalized By: Felisha Gastelum Rn Patient Care Bedside Document Signatures Signed By: Felisha Gastelum Rn Patient Care Bedside 03/31/19 12:49 documented in this encounter Plan of Treatment Not on file documented as of this encounter Visit Diagnoses Not on filedocumented in this encounter
--- OUTSIDE RECORDS SUMMARY | 2025-07-03 19:01 | XMS_ITS | Encounter Summary ---
Author Organization [employer] ([place], [place], [place], [place], [place]) Address [address] [place] [address] Care Team Providers Care Store Specialist Name Role Phone Unavailable Primary Care Provider Unavailabl e Encounter Details Date Type Department Care Team (Late st Contact Info) Description 03/31/2019 Transcribed Document [facility] [place] [facility] [place] [address] ProviderSb MD [address] [place] [address] Social History Tobacco Use Types Packs/Day [...] 03/31/2019 04:43 Assisted by, OT : Nursing, sourcing assistant (ELECTRONICS MECHANIC APPRENTICE) Personal Devices : Personal Devices No Devices [...] reach, Other: left seated in w/c with ELECTRONICS MECHANIC APPRENTICE and family RN/PCT Informed Comment : RN [...] NYASIA CARTER OTR/L - 04/01/2019 11:00 EDT Custodial Goals, OT Other LTG Grid Goal #1 [...] : pt seen for split session from [id number] (29 minutes ) and [id number] (10 minutes) pt c/o pain and feeling weak throughout tx. assist from RN and ELECTRONICS MECHANIC APPRENTICE during tx. pt educated on ADL technique [...] with cues for technique. with assist of ELECTRONICS MECHANIC APPRENTICE pt completes functional mobility chair follow to hallway min assist x1 and CGA of another for safety as pt continues to c/o weakness. pt left with ELECTRONICS MECHANIC APPRENTICE seated in hallway in w/c. education on [...]
--- OUTSIDE RECORDS SUMMARY | 2025-07-03 19:01 | XMS_ITS | Encounter Summary ---
Author Organization [employer] ([place], [place], [place], [place], [place]) Address [address] [place] [address] Care Team Providers Care Commodity Loan Clerk Name Role Phone Unavailable Primary Care Provider Unavailabl e Encounter Details Date Type Department Care Team (Late st Contact Info) Description 04/02/2019 Transcribed Document [facility] [place] [address] [place] [address] ProviderSb [place] [address] Social History Tobacco Use Types [...] : Assigned room Description of Event : field support technician called this nurse and said that pt refused the CTA of chest, stated that she is allergic to contrast. Dr. Gamez notified. Pt also refused to take her bowel regimen today. Roberta Lange, Rn - 04/02/2019 19:43 EDT Electronically signed by Александр [facility] Conversion Metallurgical Inspector Cerner at 11/21/2022 4:07 PM CDT documented in this encounter Plan of Treatment Not on file documented as of this encounter Visit Diagnoses Not on filedocumented in this encounter
--- OUTSIDE RECORDS SUMMARY | 2025-07-03 19:01 | XMS_ITS | Encounter Summary ---
Author Organization [employer] ([place], [place], [place], [place], [place]) Address [address] [place] [address] Care Team Providers Care Senior C Web Developer Name Role Phone Unavailable Primary Care Provider Unavailabl e Encounter Details Date Type Department Care Team (Late st Contact Info) Description 04/03/2019 Transcribed Document [facility] [place] [address] [place] [address] ProviderSb MD [facility] [place] [address] Social History Tobacco Use Types Packs/Day Years Used Date Smoking Tobacco: Never Assessed Comments Unknown Sex and Gender Information Value Date Recorded Sex Assigned at Not on file Legal Sex Female 1:50 PM CDT Gender Identity Not on file Sexual Orientation Not on file documented as of this encounter Miscellaneous Notes * Cerner Conversion Note - Historical ProviderMD - 04/03/2019 2:00 AM CDT Freight Associate Details Entered On: 04/03/2019 6:44 EDT Performed On: 04/03/2019 2:00 EDT by ISAIAS BOLTON, Ivf Embryologist-Nursing Order Details Transport Mode Order Detail : Wheelchair Isolation Precautions Order Detail : Standard Precautions Order Detail : N/A IV Order Detail : 1 Oxygen Order Detail : 0 Nurse Collect Order Detail : 0 Lift/Transfer : Moderate assist Central Line Order Detail : No Room Service : Not Appropriate Arterial Line : No ISAIAS BOLTON, Ivf Embryologist-Nursing - 04/03/2019 6:44 EDT documented in this encounter Plan of Treatment Not on file documented as of this encounter Visit Diagnoses Not on filedocumented in this encounter
--- OUTSIDE RECORDS SUMMARY | 2025-07-03 19:01 | XMS_ITS | Clinical Summary ---
Author Organization [facility] [place] Address [address] [place] [address] Phone Care Team Providers Care Wrapper Caser Name Role Phone JOHNSON GONCALVES DO Primary Care Provider [phone] Adrián Swenson MD Unavailable [phone] Rafi Roberts MD Unavailable [phone] Reason for Visit and Chief Complaint The Chief Complaint is: low back pain Problems Includes: Problems addressed during this encounter and other active Problems Current Visit Onset Date Resolved Date Provider Conditio n Status Lower Back Pain 01/07/2024 Constantine Garcia PA-C A ctive Last Documented On 4 1:00PM ; [facility] Past Visits Onset Date Resolved Date Provider Condition Status Joint Pain Hip Left 07/19/2016 Catracho Rubio MD Active Last Documented On 6 2:14PM ; [facility] Joint Pain Knee 10/14/2013 Catracho Rubio MD A ctive Last Documented On 4 2:09PM ; [facility] Plan of Treatment - Patient screened for future fall risk: documentation of any fall with injury in past year - Last Documented On 01/11/2024 11:55AM ; [facility] Fall Risk Assessment: This patient [...] - Last Documented On 01/11/2024 11:55AM ; [facility] [place] Patient was seen by myself Constantine Garcia PA-C. Patient will follow up with Dr. English after lumbar spine MRI - Last Documented On 01/11/2024 11:55AM ; [facility] [place] Pending Tests Order Diagnosis Results Due Ordering P rovider Radiology - MRI MRI Lumbar Spine Low back pain, unspecified 01/21/24 Constantine Garcia PA-C Last Documented On 4 11:55AM ; [facility] [place] Instructions to patient Lose weight Last Documented On 4 2:08PM ; [facility] [place] Assessments Includes: Assessments from this encounter Findings - Overweight - Last Documented On 01/11/2024 11:55AM ; [facility] [place] Low back pain with previous lumbar fusion - Last Documented On 01/11/2024 11:55AM ; [facility] [place] Lumbar DDD - Last Documented On 01/11/2024 11:55AM ; [facility] [place] Instructions Includes: Instructions from this encounter Instructions to patient Lose weight Last Documented On 4 2:08PM ; [facility] [place] Medical Equipment - Implanted Devices Includes: Current Devices No Medical Equipment Recorded Medications Includes: Medications discussed during this encounter and other current Medications Discontinued / Stopped on this date Kathleen Sanderson APRN on 12/27/2023 Phenazopyridine HCl 200 MG O ral Tablet Provider: Kathleen jackson APRN Diagnosis: Last Documented On 4 1:02PM By Radha [facility] [place] Phenazopyridine HCl 200 MG Oral Tablet Pr ovider: Diagnosis: Last Documented On 4 1:02PM By Radha [facility] [place] traMADol HCl 50 MG Oral Tablet Provider: MARIIA OLIVAS MD Diagnosis: Last Documented On 4 1:31PM By Radha [facility] [place] traMADol HCl 50 MG Oral Tablet Provider: MARIIA OLIVAS MD Diagnosis: Last Documented On 4 1:02PM By Radha Stafford ; [facility] Nitrofurantoin Monohyd Macro 100 MG Oral Capsule Provider: Kathleen jackson APRN Diagnosis: Last Documented On 4 1:02PM By Radha Stafford ; [facility] Gabapentin 100MG Oral Capsule Provider: Diagnosis: Last Documented On 4 1:01PM By Radha Stafford ; [facility] EnovaRX-traMADol 5% External Cream Provid er: Diagnosis: Last Documented On 4 1:01PM By Radha Stafford ; [facility] Cyanocobalamin 2500MCG Subli ngual Tablet Sublingual Provider: MARIIA OLIVAS MD Diagnosis: Last Documented On 4 1:01PM By Radha Stafford ; [facility] Bystolic 2.5MG Oral Tablet Provider: Se OLIVAS MD Diagnosis: Last Documented On 4 1:01PM By Radha Stafford ; [facility] clonazePAM 0.25MG Oral Tablet Disintegrating Provider: MARIIA OLIVAS MD Diagnosis: Last Documented On 4 1:01PM By Radha Stafford ; [facility] Plavix 75 MG Tablet Provider: Diagnosis: Last Documented On 4 1:01PM By Radha Stafford ; [facility] Aspirin 81 MG Tablet Delayed Release Prov ider: Diagnosis: Last Documented On 4 1:01PM By Radha Stafford ; [facility] Bystolic 5 MG Tablet Provider: Diagnosis: Last Documented On 4 1:01PM By Radha Stafford ; [facility] ClonazePAM 2 MG Tablet Provider: EARL GONCALVES DO Diagnosis: Last Documented On 4 1:01PM By Radha Stafford ; [facility] Klor-Con 10 10 MEQ Tablet Extended Release Provider: JOHNSON GONCALVES DO Diagnosis: Last Documented On 4 1:01PM By Radha Stafford ; [facility] Linzess 145 MCG OR CAPS Provider: Diagnosis: Last Documented On 4 1:01PM By Radha Stafford ; [facility] Ultram 50 MG OR TABS Provider: Diagnosis: Last Documented On 4 1:01PM By Radha Stafford ; [facility] MOTRIN 800 MG OR TABS Provider: Diagnosis: Last Documented On 4 1:01PM By Radha Stafford ; [facility] Lisinopril 20 MG OR TABS Provider: Diagnosis: Last Documented On 4 1:01PM By Radha Stafford ; [facility] Current Medications (continue as prescribed) diphenhydrAMINE HCl 5 MG/ML Oral Suspension Reconstitu paras 01/07/2024 Provider: Diagnosis: Last Documented On 4 1:30PM By Radha Stafford ; [facility] Klor-Con M20 20 MEQ Oral Tablet Extended Release 01/06 Provider: Diagnosis: Last Documented On 4 1:31PM By Radha Stafford ; [facility] Phenazopyridine HCl 200 MG Oral Tablet 01/04/2024 Pr ovider: Diagnosis: Last Documented On 4 1:02PM By Radha Stafford ; [facility] Symbicort 160-4.5 MCG/ACT Inhalation Aerosol Provider: Diagnosis: Last Documented On 4 1:02PM By Radha Stafford ; [facility] Nitrofurantoin Monohyd Macro 100 MG Oral Capsule 12/18 Provider: Diagnosis: Last Documented On 4 1:02PM By Radha Stafford ; [facility] Premarin 0.625 MG/GM Vaginal Cream 12/14/2023 Provid er: Diagnosis: Last Documented On 4 1:02PM By Radha Stafford ; [facility] traMADol HCl 50 MG Oral Tablet 12/14/2023 Provider: MARIIA OLIVAS MD Diagnosis: Last Documented On 4 1:02PM By Radha Stafford ; [facility] Nystatin [id number] UNIT/GM External Ointment 12/03/2023 Provider: Diagnosis: Last Documented On 4 1:02PM By Radha Stafford ; [facility] [place] Atorvastatin Calcium 20 MG Oral Tablet 11/21/2023 Pr ovider: MARIIA OLIVAS MD Diagnosis: Last Documented On 4 1:30PM By Radha Stafford ; [facility] [place] Potassium Chloride Zaina ER 2 0 MEQ Oral Tablet Extended Release 09/08/2023 Provider: Kathleen Sanderson APRN Diagnosis: Last Documented On 4 1:02PM By Radha Stafford ; [facility] [place] Furosemide 20 MG Oral Tablet 08/16/2023 Provider: Kathleen Sanderson APRN Diagnosis: Last Documented On 4 1:02PM By Radha Stafford ; [facility] [place] Ipratropium-Albuterol 0.5-2.5 (3) MG/3ML Inhalat ion Solution 08/01/2023 Provider: Diagnosis: Last Documented On 4 1:31PM By Radha Stafford ; [facility] [place] Medications Administered Includes: Administered Medications from this encounter No Administered Medications Recorded Vital Signs Includes: Vital Signs from this encounter Vital Name 01/07/2024 02:08P Height (in) 61 Weight (lb) 174 Body Mass Index 32.9 Body Surface Area 1.8 Pain Level 10 Note: lc Last Documented: On 01/07/2024 2:08PM ; [facility] [place] Results Includes: Results discussed during this encounter [...] 01/07/2024 Last Documented On 4 11:55AM ; [facility] [place] Not a current smoker. 01/07/2024 Last Documented On 4 11:55AM ; [facility] [place] No caffeine use 06/11/2019 Last Documented On 4 1:02PM ; [facility] [place] No recent change in diet 07/19/2016 Last Documented On 4 1:02PM ; [facility] [place] Not exercising regularly 07/19/2016 Last Documented On 4 1:02PM ; [facility] [place] Not using alcohol 07/19/2016 Last Documented On 4 1:02PM ; [facility] [place] Not using drugs 07/19/2016 Last Documented On 4 1:02PM ; [facility] [place] No tobacco use 10/14/2013 Last Documented On 4 1:02PM ; [facility] [place] Smoking Status Unknown Procedures and Surgical History Surgical History Last Updated History of History of Gallbladder 2023 Last Documented On 4 11:55AM ; [facility] [place] History of total hip replacement 024 Last Documented On 4 11:55AM ; [facility] [place] History of appendectomy 09/24/2019 Last Documented On 4 1:02PM ; [facility] [place] History of back surgery 09/24/2019 Last Documented On 4 1:02PM ; [facility] [place] History of hysterectomy 09/24/2019 Last Documented On 4 1:02PM ; [facility] [place] Medical History Includes: Medical History addressed during this encounter Description Last Updated History of asthma 01/07/2024 Last Documented On 4 11:55AM ; [facility] History of Hypertension 01/07/2024 Last Documented On 4 11:55AM ; [facility] History of Irregular Heartbeat 4 Last Documented On 4 11:55AM ; [facility] History of Liver Disease 01/07/2024 Last Documented On 4 11:55AM ; [facility] History of Sleep Apnea 01/07/2024 Last Documented On 4 11:55AM ; [facility] left carpal tunnel ~right and left arm r otator cuff ~blood transfusion 09/24/2019 Last Documented On 4 1:02PM ; [facility] A recent immunization for pneumococcal p neumonia 06/201609/24/2019 Last Documented On 4 1:02PM ; [facility] Arthritic joint problems 09/24/2019 Last Documented On 4 1:02PM ; [facility] Gallbladder disease 09/24/2019 Last Documented On 4 1:02PM ; [facility] History of diverticulitis of colon 09/24 Last Documented On 4 1:02PM ; [facility] History of hepatitis 09/24/2019 Last Documented On 4 1:02PM ; [facility] Intermittent hypertension 09/24/2019 Last Documented On 4 1:02PM ; [facility] Family History Includes: Family History addressed during this encounter Description Last Updated Family history of cancer 09/24/2019 Last Documented On 4 1:02PM ; [facility] Family history of heart disease 09/24/19 20 Last Documented On 4 1:02PM ; [facility] Family history of hypertension 0 Last Documented On 4 1:02PM ; [facility] Family history of rheumatoid arthritis m other 09/24/2019 Last Documented On 4 1:02PM ; [facility] Review of Systems Includes: Review [...] ve Last Documented On 4 9:47AM ; [facility] Keflex Allergy 10/14/2013 Active Last Documented On 4 9:47AM ; [facility] Betadine Allergy 10/14/2013 Active Last Documented On 4 9:47AM ; [facility] Bactroban Allergy 03/28/2019 Active Last Documented On 4 9:47AM ; [facility] [place] Encounters Encounter Provider Location Date Check-In Time Check-Out Time Diagnosis Physician Specified Constantine [facility]07[facility]20 24 12:57PM 2:00PM Overweight Insurance Includes: Active Insurance Policies Plan Name Member ID Group # Subscriber Relationship Effect etelvina Dates 1 - [employer] [id number] Samara Hayward Self 07/16/2019 - Unknown Clinical Notes Includes: Clinical Notes from this encounter * Progress note Date Encounter Last Documented by 01/07/2024 Physician Specified Nael crain on 01/11/2024; 11:55 AM, Constantine Garcia PA-C; [facility] [place] Active Problems & Conditions - Joint Pain [...] Capsule 7 days, 0 refills - Nystatin [id number] UNIT/GM External Ointment 10 days, 0 refills [...]
--- OUTSIDE RECORDS SUMMARY | 2025-07-03 19:01 | XMS_ITS | Encounter Summary ---
Author Organization [employer] ([place], [place], [place], [place], [place]) Address [address] [place] [address] Care Team Providers Care Vision Mixer Name Role Phone Unavailable Primary Care Provider Unavailabl e Encounter Details Date Type Department Care Team (Late st Contact Info) Description 03/31/2019 Transcribed Document [facility] [place] [facility] [place] [address] ProviderSb MD [address] [place] [address] Social History Tobacco Use Types Packs/Day [...] GEORGE D.O.B./Sex: 1945 Female Med Rec #: [id number] Physician: YAMILETH OMER MD-ORT Financial #: [id number] Pt. Type: I Room/Bed: [facility]/4 Admit/Disch: 03/31/19 04:43:00 - Institution: [facility] PreOp Case Times Entry 1 In Preop 03/31/19 05:35:00 Ready for Holding n/a Room Patient Ready for 03/31/19 07:23:00 Surgery Patient Out of Preop 03/31/19 07:28:00 Patient Out of n/a Holding Room Last Modified By: RADHA CALIX 03/31/19 08:44:37 SJ PreOp Case Times Audit 03/31/19 08:44:37 Sectional Belt Mold Assembler: FLOYDSF Modifier: CATLETDD <+> 1 Patient Out of Preop 03/31/19 07:27:58 Sectional Belt Mold Assembler: FLOYDSF Modifier: FLOYDSF <+> 1 Patient Ready for Surgery Finalized By: RADHA CALIX Document Signatures Signed By: RADHA CALIX 03/31/19 08:44 Electronically signed by Александр [facility] Conversion Quarryman Cerner at 11/21/2022 4:07 PM CDT documented in this encounter Plan of Treatment Not on file documented as of this encounter Visit Diagnoses Not on filedocumented in this encounter
--- OUTSIDE RECORDS SUMMARY | 2025-07-03 19:01 | XMS_ITS | Encounter Summary ---
Author Organization [employer] ([place], [place], [place], [place]) Address [address] [place] [address] Care Team Providers Care Ndt Inspector Name Role Phone Unavailable Primary Care Provider Unavailabl e Encounter Details Date Type Department Care Team (Late st Contact Info) Description 03/31/2019 Transcribed Document [facility] [place] [address] Provider[place] [address] Social History Tobacco Use Types [...]
--- OUTSIDE RECORDS SUMMARY | 2025-07-03 19:01 | XMS_ITS | Encounter Summary ---
Author Organization [employer] ([place], [place], [place], [place]) Address [address] [place] [address] Care Team Providers Care Credit Collections Manager Name Role Phone Unavailable Primary Care Provider Unavailabl e Encounter Details Date Type Department Care Team (Late st Contact Info) Description 03/31/2019 Transcribed Document [facility] [place] [facility] [place] [address] ProviderSb MD [address] [place] [address] Social History Tobacco Use Types Packs/Day [...] 04/01/2019 12:28 EDT Assisted by, PT : creative assistant (ELECTRICAL TECHNICIAN INSTRUCTOR) KALEY HILLMAN PTA - 04/01/2019 11:53 EDT [...] KALEY HILLMAN PTA - 04/01/2019 11:53 EDT Nursing Home Goals Other PT LTG Grid Goal #1 [...] goal Initial goal Progressing, continue KALEY HILLMAN, [facility] - 04/01/2019 11:53 EDT KALEY HILLMAN, [facility] - 04/01/2019 11:53 EDT KALEY HILLMAN, [facility] - 04/01/2019 11:53 EDT KALEY HILLMAN, [facility] - 04/01/2019 11:53 EDT Goal #5 Other : Pt will be able to transfer sit<>stand consistently with min assist x1 to ease caregiver burden Date to Meet : 04/04/2019 EDT Goal Status : Progressing, continue KALEY HILLMAN, [facility] - 04/01/2019 11:53 EDT Treatment Note Subjective [...] the text rendition version of the form. [facility] PT Charges PT Therap. Exercise 15 min : 1 Gait Training Each 15 Min : 2 KALEY HILLMAN, SHAHRZAD - 04/01/2019 11:53 EDT documented in this encounter Plan of Treatment Not on file documented as of this encounter Visit Diagnoses Not on filedocumented in this encounter
--- OUTSIDE RECORDS SUMMARY | 2025-07-03 19:01 | XMS_ITS | Encounter Summary ---
Author Organization [employer] ([place], [place], [place], [place], [place]) Address [address] [place] [address] Care Team Providers Care Spark Plug Tester Name Role Phone Unavailable Primary Care Provider Unavailabl e Encounter Details Date Type Department Care Team (Late st Contact Info) Description 03/25/2019 Transcribed Document [facility] [place] [facility] [place] [address] ProviderSb MD [address] [place] [address] Social History Tobacco Use Types Packs/Day [...] Helena Beal Rn - 03/25/2019 14:08 EDT documented in this encounter Plan of Treatment Not on file documented as of this encounter Visit Diagnoses Not on filedocumented in this encounter
--- OUTSIDE RECORDS SUMMARY | 2025-07-03 19:01 | XMS_ITS | Encounter Summary ---
Author Organization [employer] ([place], [place], [place], [place]) Address [address] [place] [address] Care Team Providers Care Textile Science Technician Name Role Phone Unavailable Primary Care Provider Unavailabl e Encounter Details Date Type Department Care Team (Late st Contact Info) Description 04/03/2019 Transcribed Document [facility] [place] [facility] [place] [address] ProviderSb MD [address] [place] [address] Social History Tobacco Use Types Packs/Day [...] HEP A/AROM x 20 reps D/C to [facility] for continued care and rehab on 04/03/19. LEEANN BALL, PT - 04/03/2019 16:25 EDT Intermediate Goals Other PT LTG Grid Goal #1 [...] EDT Electronically signed by Vinita [employer] Conversion Rope Laying Machine Operator Fernando at 11/21/2022 4:00 PM CDT documented in this encounter Plan of Treatment Not on file documented as of this encounter Visit Diagnoses Not on filedocumented in this encounter
--- OUTSIDE RECORDS SUMMARY | 2025-07-03 19:01 | XMS_ITS | Encounter Summary ---
Author Organization [employer] ([place], [place], [place], [place]) Address [address] [place] [address] Care Team Providers Care Bonded Structures Repairer Name Role Phone Unavailable Primary Care Provider Unavailabl e Encounter Details Date Type Department Care Team (Late st Contact Info) Description 03/31/2019 Transcribed Document [facility] [place] [facility] [address] ProviderSb MD [address] [place] [address] Social History Tobacco Use Types Packs/Day [...] assistance (Comment: x 2 [CHARLENE EWING OTR/Cherry Blackwell 03/31/2019 13:59 EDT] ) Stand [...] POC. CHARLENE EWING OTR/Cherry 03/31/2019 13:59 EDT [facility] Goals, OT Other LTG Grid Goal #1 [...] CHARLENE EWING OTR/Cherry - 03/31/2019 13:59 EDT [place] OT Charges OT Selfcare/Hm Mgmt Ea 15 Min : 2 OT Eval Low Complexity : 1 CHARLENE EWING OTR/Cherry - 03/31/2019 13:59 EDT Electronically signed by Александр [facility] Conversion Acid Remover Cerner at 11/21/2022 4:00 PM CDT documented in this encounter Plan of Treatment Not on file documented as of this encounter Visit Diagnoses Not on filedocumented in this encounter
--- OUTSIDE RECORDS SUMMARY | 2025-07-03 19:01 | XMS_ITS | Encounter Summary ---
Author Organization [employer] ([place], [place], [place], [place], [place]) Address [address] [place] [address] Care Team Providers Care Physical Therapy Manager Name Role Phone Unavailable Primary Care Provider Unavailabl e Encounter Details Date Type Department Care Team (Late st Contact Info) Description 04/03/2019 Transcribed Document [facility] [place] [facility] [place] [address] ProviderSb MD [facility] [place] [address] Social History Tobacco Use Types [...] ? Using the bathroom. ? Using household sample sawyer or poisonous chemicals. ? Touching or taking [...] 07/05/2009 Document Revised: 12/28/2016 Document Reviewed: 12/18/2014 [employer] Patient Education ? 2018 [employer] Fall Prevention in the Home, Adult [...] Keep items that you use often in sacz-zu-pltdl places. Lower the shelves around your home [...] or contrast paint or tape to clearly roemo and help you see: ? Any grab [...] the way. ??? Do not use floor korean or wax that makes floors slippery. If [...] Control and Prevention, STEADI: https://cdc.gov ??? National Fair Play on Aging: https://he6pzxl.joe.nih.gov Contact a doctor if: ??? You are [...] 05/19/2010 Document Revised: 03/07/2018 Document Reviewed: 03/07/2018 [employer] Interactive Patient Education ? 2019 [employer] What to expect after the Procedure: [...] Barley. Bulgur wheat. Millet. Bran muffins. Popcorn. [place] wafer crackers. Vegetables Sweet potatoes. Spinach. Kale. Artichokes. Cabbage. Broccoli. Green peas. Carrots. Squash. Fruits Berries. Pears. Apples. Oranges. Avocados. Prunes and raisins. Dried figs. Meats and Other Protein Sources [place], kidney, mariscal, and soy beans. Split peas. [...] davey has 11 g of protein. ?? Bacon seeds - 1 oz has 5.5 g [...] floor. ?? Place frequently used items in nkny-wd-paplt places ?? Keep electrical cables out of [...] ?? Using the bathroom. ?? Using household sample sawyer or toxic chemicals. ?? Touching or taking [...] leg. Electronically signed by Vinita [employer] Conversion Artificial Leather Calender Operator Cerner at 11/21/2022 4:24 PM CDT documented in this encounter Plan of Treatment Not on file documented as of this encounter Visit Diagnoses Not on filedocumented in this encounter
--- OUTSIDE RECORDS SUMMARY | 2025-07-03 19:02 | XMS_ITS ---
Author Organization [facility] , [facility] Address [address] [place] [address] Phone Care Team Providers Care Topology Professor Name Role Phone JOHNSON GONCALVES DO Primary Care Provider [phone] Adrián Swenson MD Unavailable [phone] Rafi Roberts MD Unavailable [phone] Reason for Referral Date Encounter Description Provider Reason for Referral 01/24/24 Follow Up Edwardo English MD Referral To Physician Problems Includes: Active, inactive, and resolved Problems All Visits Onset Date Resolved Date Provider Condition S tatus Lower Back Pain 01/07/2024 Constantine Garcia PA-C A ctive Last Documented On 4 1:00PM ; [facility] Joint Pain Hip Left 07/19/2016 Catracho Rubio MD Active Last Documented On 6 2:14PM ; [facility] Joint Pain Knee 10/14/2013 Catracho Rubio MD A ctive Last Documented On 4 2:09PM ; [facility] SPRAIN ROTATOR CUFF 05/08/2012 Catracho Rubio MD Inactive Last Documented On 4 2:11PM ; [facility], [facility] Plan of Treatment Findings Encounter Date Clinical consultation report Follow Up with Gaurav English MD 01/24/2024 Last Documented On 4 11:36AM ; [facility] Patient screened for future fall risk: documentation of any fall with injury in past year Follow Up with Edwardo English MD 01/24/2024 Last Documented On 4 11:36AM ; [facility], [facility] Referral to physician Follow Up with Edwardo carvajal MD 01/24/2024 Last Documented On 4 11:36AM ; [facility], [facility] Patient screened for future fall risk: documentation of any fall with injury in past year Physician Specified with Constantine Garcia PA-C 01/07/2024 Last Documented On 4 11:55AM ; [facility], [facility] Ordered weight loss diet NEW PROBLEM/EST PT with Catracho Rubio MD 10/14/2013 Last Documented On 4 9:11AM ; [facility], [facility] Pending Tests Order Diagnosis Results Due Ordering P rovider Radiology - MRI MRI Lumbar Spine Low back pain, unspecified 01/21/24 Constantine Garcia PA-C Last Documented On 4 11:55AM ; [facility], [facility] Referrals To Diagnosis Consult for Pain Management Over weight Note: Dr Stone [facility] // cc Last Documented On 4 8:31AM ; [facility], [facility] Consult with Vascular Overweight Note: Dr Leiva for Vascular Consult /// cc Last Documented On 4 11:36AM ; [facility], [facility] Instructions to patient Lose weight Last Documented On 4 9:47AM ; [facility], [facility] Lose weight Last Documented On 4 2:08PM ; [facility] Instructions for patient see pcp for elevated bp Last Documented On 0 2:24PM ; [facility], [facility] Instructions for patient see pcp for elevated bp Last Documented On 9 1:23PM ; [facility] Instructions for patient see pcp for elevated bp Last Documented On 9 1:05PM ; [facility] Instructions for patient see pcp for elevated bp Last Documented On 9 4:05PM ; [facility] Instructions for patient see pcp for elevated bp and weight management Last Documented On 8 2:03PM ; [facility] Instructions for patient see pcp for elevated bp and weight management Last Documented On 7 1:33PM ; [facility] Instructions for patient see pcp for elevated bp Last Documented On 6 2:13PM ; [facility] No intervention and counseli ng on cessation of tobacco use Last Documented On 6 2:13PM ; [facility] Instructions for patient Pat ient will follow up with PCP for weight loss plan Last Documented On 4 2:21PM ; [facility] Lose weight Last Documented On 4 2:21PM ; [facility] Education and Decision Aids were provided during visit for: No health seminar on smoking cessation Last Documented On 9 1:23PM ; [facility] No health seminar on smoking cessation Last Documented On 9 1:05PM ; [facility] No health seminar on smoking cessation Last Documented On 9 4:05PM ; [facility] No health seminar on smoking cessation Last Documented On 8 2:03PM ; [facility] No health seminar on smoking cessation Last Documented On 7 1:30PM ; [facility] No health seminar on smoking cessation Last Documented On 6 2:13PM ; [facility] Assessments Includes: Assessments for all patient encounters Findings Encounter Date Overweight Follow Up with Edwardo English MD 01/24/2024 Last Documented On 4 11:36AM ; [facility], [facility] Overweight Physician Specified with Constantine Garcia PA-C 01/07/2024 Last Documented On 4 11:55AM ; [facility], [facility] Instructions Includes: Instructions for all patient encounters Instructions to patient Lose weight Last Documented On 4 9:47AM ; [facility] Lose weight Last Documented On 4 2:08PM ; [facility] Instructions for patient see pcp for elevated bp Last Documented On 0 2:24PM ; [facility] Instructions for patient se e pcp for elevated bp Last Documented On 9 1:23PM ; [facility] Instructions for patient see pcp for elevated bp Last Documented On 9 1:05PM ; [facility], [facility] Instructions for patient see pcp for elevated bp Last Documented On 9 4:05PM ; [facility], [facility] Instructions for patient see pcp for elevated bp and weight management Last Documented On 8 2:03PM ; [facility], [facility] Instructions for patient see pcp for elevated bp and weight management Last Documented On 7 1:33PM ; [facility], [facility] Instructions for patient see pcp for elevated bp Last Documented On 6 2:13PM ; [facility], [facility] No intervention and counseli ng on cessation of tobacco use Last Documented On 6 2:13PM ; [facility], [facility] Instructions for patient Pat ient will follow up with PCP for weight loss plan Last Documented On 4 2:21PM ; [facility] Lose weight Last Documented On 4 2:21PM ; [facility], [facility] Education and Decision Aids were provided during visit for: No health seminar on smoking cessation Last Documented On 9 1:23PM ; [facility], [facility] No health seminar on smoking cessation Last Documented On 9 1:05PM ; [facility], [facility] No health seminar on smoking cessation Last Documented On 9 4:05PM ; [facility], [facility] No health seminar on smoking cessation Last Documented On 8 2:03PM ; [facility], [facility] No health seminar on smoking cessation Last Documented On 7 1:30PM ; [facility], [facility] No health seminar on smoking cessation Last Documented On 6 2:13PM ; [facility], [facility] Medical Equipment - Implanted Devices Includes: Current and historical Devices No Medical Equipment Recorded Medications Includes: Current and historical Medications Current Medications (continue as prescribed) diphenhydrAMINE HCl 5 MG/ML Oral Suspension Reconstitu paras 01/07/2024 Provider: Diagnosis: Last Documented On 4 1:30PM By Radha Stafford ; [facility], [facility] Klor-Con M20 20 MEQ Oral Tablet Extended Release 01/06 Provider: Diagnosis: Last Documented On 4 1:31PM By Radha Stafford ; [facility] Phenazopyridine HCl 200 MG Oral Tablet 01/04/2024 Pr ovider: Diagnosis: Last Documented On 4 1:02PM By Radha Stafford ; [facility] Symbicort 160-4.5 MCG/ACT Inhalation Aerosol Provider: Diagnosis: Last Documented On 4 1:02PM By Radha Stafford ; [facility] Nitrofurantoin Monohyd Macro 100 MG Oral Capsule 12/18 Provider: Diagnosis: Last Documented On 4 1:02PM By Radha Stafford ; [facility] Premarin 0.625 MG/GM Vaginal Cream 12/14/2023 Provid er: Diagnosis: Last Documented On 4 1:02PM By Radha Stafford ; [facility] traMADol HCl 50 MG Oral Tablet 12/14/2023 Provider: MARIIA OLIVAS MD Diagnosis: Last Documented On 4 1:02PM By Radha Stafford ; [facility] Nystatin 600003 UNIT/GM External Ointment 12/03/2023 Provider: Diagnosis: Last Documented On 4 1:02PM By Radha Stafford ; [facility] Atorvastatin Calcium 20 MG Oral Tablet 11/21/2023 Pr ovider: MARIIA OLIVAS MD Diagnosis: Last Documented On 4 1:30PM By Radha Stafford ; [facility] Potassium Chloride Zaina ER 2 0 MEQ Oral Tablet Extended Release 09/08/2023 Provider: Kathleen Sanderson APRN Diagnosis: Last Documented On 4 1:02PM By Radha Stafford ; [facility] Furosemide 20 MG Oral Tablet 08/16/2023 Provider: Kathleen Sanderson APRN Diagnosis: Last Documented On 4 1:02PM By Radha Stafford ; [facility] Ipratropium-Albuterol 0.5-2.5 (3) MG/3ML Inhalat ion Solution 08/01/2023 Provider: Diagnosis: Last Documented On 4 1:31PM By Radha Stafford ; [facility] Past Medications on file Phenazopyridine HCl 200 MG Oral Tablet 12/27/2023 - 01/07/2024 Provider: Kathleen guillermo APRN Diagnosis: Last Documented On 4 1:02PM By Radha Stafford ; [facility] Phenazopyridine HCl 200 MG Oral Tablet 12/18/2023 - Provider: Diagnosis: Last Documented On 4 1:02PM By Radha Stafford ; [facility] traMADol HCl 50 MG Oral Tablet 12/14/2023 - 01/07/2024 Provider: MARIIA OLIVAS MD Diagnosis: Last Documented On 4 1:31PM By Radha Stafford ; [facility] traMADol HCl 50 MG Oral Tablet 10/28/2023 - 01/07/2024 Provider: MARIIA OLIVAS MD Diagnosis: Last Documented On 4 1:02PM By Radha Stafford ; [facility] Nitrofurantoin Monohyd Macro 100 MG Oral Capsule 09/20/2023 - 01/07/2024 Provider: Kathleen guillermo APRN Diagnosis: Last Documented On 4 1:02PM By Radha Stafford ; [facility] Valium 5 MG Oral Tablet 09/26/2019 - 02/22/2021 Provid er: Catracho Rubio MD Diagnosis: Take one pill 1 hour prior t o MRI and second pill right befor MRI. Last Documented On 1 1:43PM By Janelle Pendleton ; [facility] [place] 5-325MG Oral Tablet 04/17/2019 - 02/22/2021 Prov ider: Antoni Quiroga MD Diagnosis: 1 every 4 - 6 hours as needed Last Documented On 1 1:43PM By Janelle Pendleton ; [facility] Xarelto 10MG Oral Tablet 03/28/2019 - 02/22/2021 Provi amado: Catracho Rubio MD Diagnosis: once a day for first seven d ays after joint replacement, then transiition to aspirin Last Documented On 1 1:43PM By Janelle Pendleton ; [facility], [facility] Aspirin 325MG Oral Tablet 03/28/2019 - 02/22/2021 Prov ider: Catracho Rubio MD Diagnosis: twice a day Last Documented On 1 1:43PM By Janelle Pendleton ; [facility], [facility] Percocet 7.5-325MG Oral Tablet 03/28/2019 - 02/22/2021 Provider: Catracho Rubio MD Diagnosis: [id number] prn post op pain Last Documented On 1 1:43PM By Janelle Pendleton ; [facility], [facility] Zofran 4MG Oral Tablet 03/28/2019 - 02/22/2021 Provide r: Catracho Rubio MD Diagnosis: 1 tab every 6 hrs prn pain Last Documented On 1 1:43PM By Janelle Pendleton ; [facility], [facility] Mupirocin 2% External Ointment 12/04/2018 - 02/22/2021 Provider: Catracho Rubio MD Diagnosis: take as directed Apply cream twice a day to each nostril five days prior to surgery. Last Documented On 1 1:43PM By Janelle Pendleton ; [facility], [facility] Gabapentin 100MG Oral Capsule 12/02/2018 - 01/07/2024 Provider: Diagnosis: Last Documented On 4 1:01PM By Radha Stafford ; [facility], [facility] EnovaRX-traMADol 5% External Cream 11/29/2018 - 2023 Provider: Diagnosis: Last Documented On 4 1:01PM By Radha Stafford ; [facility], [facility] Cyanocobalamin 2500MCG Subli ngual Tablet Sublingual 11/22/2018 - 01/07/2024 Provider: MARIIA Gaytan Diagnosis: Last Documented On 4 1:01PM By Radha Stafford ; [facility], [facility] Bystolic 2.5MG Oral Tablet 11/18/2018 - 01/07/2024 Pro vider: MARIIA OLIVAS MD Diagnosis: Last Documented On 4 1:01PM By Radha Stafford ; [facility] clonazePAM 0.25MG Oral Table t Disintegrating 11/11/2018 - 01/07/2024 Provider: MARIIA Gaytan Diagnosis: Last Documented On 4 1:01PM By Radha Stafford ; [facility] Plavix 75 MG Tablet 07/19/2016 - 01/07/2024 Provider: Diagnosis: Last Documented On 4 1:01PM By Radha Stafford ; [facility] Aspirin 81 MG Tablet Delayed Release 07/19/2016 - 10/2023 Provider: Diagnosis: Last Documented On 4 1:01PM By Radha Stafford ; [facility] Bystolic 5 MG Tablet 06/27/2016 - 01/07/2024 Provider: Diagnosis: Last Documented On 4 1:01PM By Radha Stafford ; [facility] ClonazePAM 2 MG Tablet 06/12/2016 - 01/07/2024 Provide r: JOHNSON GONCALVES DO Diagnosis: Last Documented On 4 1:01PM By Radha Stafford ; [facility] Klor-Con 10 10 MEQ Tablet Extended Release 04/15/2016 - 01/07/2024 Provider: JOHNSON GONCALVES DO Diagnosis: Last Documented On 4 1:01PM By Radha Stafford ; [facility] Linzess 145 MCG OR CAPS 10/14/2013 - 01/07/2024 Provid er: Diagnosis: Last Documented On 4 1:01PM By Radha Stafford ; [facility] Ultram 50 MG OR TABS 10/14/2013 - 01/07/2024 Provider: Diagnosis: Last Documented On 4 1:01PM By Radha Stafford ; [facility] MOTRIN 800 MG OR [...] On 1 1:42PM By Janelle Pendleton ; [facility] Percocet 7.5-325 MG OR TABS 09/05/2011 - 02/22/2021 Pr ovider: Catracho Rubio MD Diagnosis: Last Documented On 1 1:42PM By Janelle Pendleton ; [facility] Lortab 7.5-500 MG OR TABS 09/01/2011 - 02/22/2021 Prov ider: Catracho Rubio MD Diagnosis: [facility] [phone] k/michaelb Last Documented On 1 1:42PM By Janelle Pendleton ; [facility] Percocet 5-325 MG OR TABS 08/23/2011 - 02/22/2021 Prov ider: Catracho Rubio MD Diagnosis: mm Last Documented On 1 1:42PM By Janelle Pendleton ; [facility] Percocet 5-325 MG OR TABS 08/17/2011 - 02/22/2021 Prov ider: Catracho Rubio MD Diagnosis: mm Last Documented On 1 1:43PM By Janelle Pendleton ; [facility] traMADol HCl 50 MG OR TABS 08/11/2011 - 02/22/2021 Pro vider: Catracho Rubio MD Diagnosis: [phone] cvs df Last Documented On 1 1:43PM By Janelle Pendleton ; [facility] traMADol HCl 50 MG OR TABS 07/21/2011 - 02/22/2021 Pro vider: Catracho Rubio MD Diagnosis: [facility] [phone] jrk.df Last Documented On 1 1:42PM By Janelle Pendleton ; [facility] traMADol HCl 50 MG OR TABS 07/06/2011 - 02/22/2021 Pro vider: Catracho Rubio MD Diagnosis: tid prn pain Last Documented On 1 1:42PM By Janelle Pendleton ; [facility] Relafen 500 MG OR TABS 05/09/2011 - 02/22/2021 Provide r: Catracho Rubio MD Diagnosis: mmh Last Documented On 1 1:42PM By Janelle Pendleton ; [facility] Valium 5 MG OR TABS 06/16/2010 - 02/22/2021 Provider: Catracho Rubio MD Diagnosis: take one pill 1 hour prior t o MRI and second pill right befor MRI. [facility] [phone] jrk Last Documented On 1 1:42PM By Janelle Pendleton ; [facility] Lortab 5-500 MG OR TABS 12/03/2008 - 02/22/2021 Provid er: Catracho Rubio MD Diagnosis: radha irene [phone] jrk/jsb Last Documented On 1 1:42PM By Janelle Pendleton ; [facility] Lortab 5-500 MG OR TABS 11/19/2008 - 02/22/2021 Provid er: Catracho Rubio MD Diagnosis: radha irene [phone] jsb Last Documented On 1 1:42PM By Janelle Pendleton ; [facility] Percocet 5-325 MG OR TABS 11/05/2008 - 02/22/2021 Prov ider: Catracho Rubio MD Diagnosis: post op med//mmh Last Documented On 1 1:42PM By Janelle Pendleton ; [facility] Percocet 5-325 MG OR TABS 10/26/2008 - 02/22/2021 Prov ider: Catracho Rubio MD Diagnosis: post op med//mmh Last Documented On 1 1:42PM By Janelle Pendleton ; [facility] Medications Administered Includes: Administered Medications in patient's chart No Administered Medications Recorded Results Includes: Results from 07/03/2024 through 07/03/2025 No Results Recorded For Specified Dates History of Present Illness History of Present Illness not supported for this document type No History of Present Illness Recorded Social History Description Last Updated No recent change in diet 01/07/2024 Last Documented On 4 11:55AM ; [facility] Not a current smoker. 01/07/2024 Last Documented On 4 11:55AM ; [facility] Non-smoker 02/22/2021 Last Documented On 1 1:38PM ; [facility] No caffeine use 06/11/2019 Last Documented On 9 10:34AM ; [facility] No recent change in diet 07/19/2016 Last Documented On 6 11:49AM ; [facility] Not a current smoker 07/19/2016 Last Documented On 6 11:49AM ; [facility] Not exercising regularly 07/19/2016 Last Documented On 6 11:49AM ; [facility] Not using alcohol 07/19/2016 Last Documented On 6 11:49AM ; [facility] Not using drugs 07/19/2016 Last Documented On 6 11:49AM ; [facility] No tobacco use 10/14/2013 Last Documented On 4 9:11AM ; [facility] Smoking status : Never smoked/ Recode: 4 10/14/2013 Last Documented On 4 9:11AM ; [facility] Procedures and Surgical History Surgical History Last Updated History of total hip replacement Left 01/24/2024 Last Documented On 4 11:36AM ; [facility], [facility] Past Surgical History: left carpal tunne l ~right and left arm rotator cuff 01/24/2024 Last Documented On 4 11:36AM ; [facility], [facility] History of History of Gallbladder 2023 Last Documented On 4 11:55AM ; [facility], [facility] History of appendectomy 09/24/2019 Last Documented On 0 3:04PM ; [facility], [facility] History of back surgery 09/24/2019 Last Documented On 0 3:04PM ; [facility], [facility] History of hysterectomy 09/24/2019 Last Documented On 0 3:04PM ; [facility], [facility] Medical History Includes: Medical History in patient's chart Description Last Updated History of History of Blood Transfusion 01/24/2024 Last Documented On 4 11:36AM ; [facility], [facility] History of asthma 01/07/2024 Last Documented On 4 11:55AM ; [facility], [facility] History of Hypertension 01/07/2024 Last Documented On 4 11:55AM ; [facility], [facility] History of Irregular Heartbeat 4 Last Documented On 4 11:55AM ; [facility], [facility] History of Liver Disease 01/07/2024 Last Documented On 4 11:55AM ; [facility], [facility] History of Sleep Apnea 01/07/2024 Last Documented On 4 11:55AM ; [facility], [facility] left carpal tunnel ~right and left arm r otator cuff ~blood transfusion 09/24/2019 Last Documented On 0 3:04PM ; [facility], [facility] A recent immunization for pneumococcal p neumonia 06/201609/24/2019 Last Documented On 0 3:04PM ; [facility], [facility] Arthritic joint problems 09/24/2019 Last Documented On 0 3:04PM ; [facility] Gallbladder disease 09/24/2019 Last Documented On 0 3:04PM ; [facility] History of diverticulitis of colon 09/24 Last Documented On 0 3:04PM ; [facility] History of hepatitis 09/24/2019 Last Documented On 0 3:04PM ; [facility] Intermittent hypertension 09/24/2019 Last Documented On 0 3:04PM ; [facility] Family History Includes: Family History in patient's chart Description Last Updated Family history of cancer 09/24/2019 Last Documented On 0 3:04PM ; [facility] Family history of heart disease 09/24/19 Last Documented On 0 3:04PM ; [facility] Family history of hypertension 0 Last Documented On 0 3:04PM ; [facility] Family history of rheumatoid arthritis m other 09/24/2019 Last Documented On 0 3:04PM ; [facility] Review of Systems [...] ve Last Documented On 4 9:47AM ; [facility] Keflex Allergy 10/14/2013 Active Last Documented On 4 9:47AM ; [facility] Betadine Allergy 10/14/2013 Active Last Documented On 4 9:47AM ; [facility] Bactroban Allergy 03/28/2019 Active Last Documented On 4 9:47AM ; [facility] Insurance Includes: Active Insurance Policies Plan Name Member ID Group # Subscriber Relationship Effect etelvina Dates 1 - [employer] [id number] Samara Hayward Self 07/16/2019 - Unknown Clinical Notes Includes: Signed Clinical Notes starting from 07/20/2022 No Clinical Notes Recorded
--- OUTSIDE RECORDS SUMMARY | 2025-07-03 19:02 | XMS_ITS | Encounter Summary ---
Author Organization [employer] ([place], [place], [place], [place], [place]) Address [address] [place] [address] Care Team Providers Care Training Personnel Supervisor Name Role Phone Unavailable Primary Care Provider Unavailabl e Encounter Details Date Type Department Care Team (Late st Contact Info) Description 03/13/2019 Transcribed Document [facility] [place] Family Medicine [facility] [place] [address] ProviderSb MD [address] [place] [address] Social History Tobacco Use Types Packs/Day [...] Source : Measured Height Entry Format : [place] Height, Feet : 5 ft(Converted to: 152 cm, 60 Inch) Height, Inches : 1 Inch(Converted to: 0 ft 1 Inch, 2.54 cm) Clinical Height : 154.94 cm Weight Source : Standing scale Weight Entry Format : [place] Clinical Dosing Weight : 82.27 kg Weight, Pounds : 181 lb Body Surface Area (BSA) : 1.81 m2 Body Mass Index : 34.3 kg/m2 (HI) [place] Body Weight : 47 kg Kassidy Morgan [...] #2 Relationship : . Primary Language : Arabic Communication Barrier : None Kassidy Morgan RN [...]
--- OUTSIDE RECORDS SUMMARY | 2025-07-03 19:02 | XMS_ITS | Encounter Summary ---
Author Organization [employer] ([place], [place], [place], [place], [place]) Address [address] [place] [address] Care Team Providers Care Qa Auditor Name Role Phone Unavailable Primary Care Provider Unavailabl e Encounter Details Date Type Department Care Team (Late st Contact Info) Description 04/01/2019 Transcribed Document [facility] [place] [facility] [place] [address] ProviderSb MD [address] [place] [address] Social History Tobacco Use Types Packs/Day [...] Sonny Jeong RN - 04/01/2019 3:54 EDT Electronically signed by Vinita Fountain Conversion Marketing Analytics Manager Fernando at 11/21/2022 4:11 PM CDT documented in this encounter Plan of Treatment Not on file documented as of this encounter Visit Diagnoses Not on filedocumented in this encounter
--- OUTSIDE RECORDS SUMMARY | 2025-07-03 19:02 | XMS_ITS | Encounter Summary ---
Author Organization [employer] ([place], [place], [place], [place], [place]) Address [address] [place] [address] Care Team Providers Care Farm Tractor Operator Name Role Phone Unavailable Primary Care Provider Unavailabl e Encounter Details Date Type Department Care Team (Late st Contact Info) Description 04/01/2019 Transcribed Document [facility] [place] [facility] [place] [address] ProviderSb MD [address] [place] [address] Social History Tobacco Use Types Packs/Day [...] Spiritual Care Spiritual Care Referred by : Senior Writer initiated Reason for Visit : Initial Ministry [...] Acuity : Medium Spiritual Framework : Unknown Baptism Preference : Unknown CAMILA LUA, Senior Writer-Non Cert - 04/01/2019 20:43 EDT documented in this encounter Plan of Treatment Not on file documented as of this encounter Visit Diagnoses Not on filedocumented in this encounter
--- OUTSIDE RECORDS SUMMARY | 2025-07-03 19:02 | XMS_ITS | Data Portability ---
Author Organization [email or web address] Address [address] [place] [address] Assessment No assessment recorded. Plan of Treatment Reminders Order Date Submit Date Provider Last Modified By Organization Details Last Modified Time Details Appointments None recorded. Lab noninvasiv e colorectal cancer DNA + occult blood screening, QL, stool 2023 024 [email or web address] 3 [facility], [address], [address], [place], [address], 4 13:16:20 urinalysis , dipstick 2023 024 [facility], [address] [place] [address], [place], [address], 4 14:15:11 culture, urine 2023 024 NAHEED [facility]), [address] [place], [address], 4 01:06:52 vaginal pathogens panel, MARGOT+probe, vaginal fluid 2023 024 [email or web address] 3 [facility] ([place]), [address] [place], [address], 4 13:16:04 Referral None recorded. Procedures None recorded. Surgeries None recorded. Imaging MAMMO, screening, digital, bilateral [email or web address] [place] [address] (Central Sched[facility]), [address] [place] [address] [place], [address], 13:41:56 DEXA [address] ([facility]), [address] [place] [address] [place], [address], 13:42:07 Medication Orders Cipro 500 mg tablet 2023 024 [facility] [place], [address], 14:15:09 Patient TargetsNo targets recorded. Patient InstructionsNo instructions recorded. Reason for Referral None Reported. Results Created Date Observation Date Name Description Value Unit Range Abnormal Flag Note LastModifiedBy Organization Detail LastModifiedTime 06/09/2006/12/2024 URINE CULTU RE, ROUTI NE urine culture, routine Final report abnormal Not Available [facility] ([facility]) [address] [facility], [place], [address], 06/12/2024 01:06:52 06/09/20 24 06/12/2024 URINE CULTU [...] ng units per mL Not Available [facility] ([facility]) [address] [facility], [place], [address], 06/12/2024 01:06:52 06/09/20 24 06/12/2024 URINE CULTU [...] thopr im/Gill lfa S Not Available [facility] ([facility]) [address] [facility], [place], [address], 06/12/2024 01:06:52 06/09/20 24 06/09/2024 urina lysis , dipst ick Leukocytes Small Not Available [address], [address], 06/09/2024 13:34:38 06/09/20 24 06/09/2024 urina lysis , dipst ick Nitrite negati ve Not Available [address], [address], 06/09/2024 13:34:38 06/09/20 24 06/09/2024 urina lysis , dipst ick Urobilinogen .2 Not Available [address], [address], 06/09/2024 13:34:38 06/09/20 24 06/09/2024 urina lysis , dipst ick Protein Negati ve Not Available [address], [address], 06/09/2024 13:34:38 06/09/20 24 06/09/2024 urina lysis , dipst ick pH 5.5 Not Available [address], [address], 06/09/2024 13:34:38 06/09/2006/09/2024 urina lysis , dipst ick Blood Small Not Available [address], [address], 06/09/2024 13:34:38 06/09/2006/09/2024 urina lysis , dipst ick Specific Pony 1.025 Not Available [address], [address], 06/09/2024 13:34:38 06/09/2006/09/2024 urina lysis , dipst ick Ketone Negati ve Not Available [address], [address], 06/09/2024 13:34:38 06/09/2006/09/2024 urina lysis , dipst ick Bilirubin Small Not Available [address], [address], 06/09/2024 13:34:38 06/09/2006/09/2024 urina lysis , dipst ick Glucose Negati ve Not Available [address], [address], 06/09/2024 13:34:38 06/09/2006/09/2024 urina lysis , dipst ick Appearance Clear Not Available [address], [address], 06/09/2024 13:34:38 06/09/2006/0906/09/2024 urina lysis , dipst ick Color Yellow Not Available [place] [address] [address] [facility], [place], [address], 06/09/2024 13:34:38 Result Notes None recorded. Problems Name Problem SNOMED Code Status Onset Date Resolution Date Notes Provider Name and Address Organization Details Recorded Time Blood in urine 17822057 Active 2023 Crispin Boyd MD [address] [place] [address], [address], [employer] 13:44:38 Screening mammography Active 2023 Crispin Boyd MD [address] [place] [address], [address], [employer] 13:44:40 Screening for osteoporosis Active 2023 Crispin Boyd MD [address] [place] [address], [address], [employer] 13:44:42 Screening for malignant neoplasm of colon Active 2023 Crispin Boyd MD [address] [place] [address], [address], [employer] 13:44:44 Relaxation of pelvic floor 879903441 Active 2023 Crispin Boyd MD [address] [place] [address], [address], [employer] 14:15:17 Problem Notes None recorded. Procedures Surgical History Date Name Laterality Status Provider Name and Address Organization Details Recorded Time Pessary Check completed Crispin Boyd MD [address] [place] [address], [address], [employer] 06/10/2024 08:59:35 Imaging Results None recorded. Procedure Notes None recorded. Medical Equipment None Reported. Allergies Allergen ID Allergen Name Allergen Category Reaction Reaction Severity Criticality Documentation Date Start Date Code Code System Note Provider Name and Address Organization Details Recorded Time 35329 Keflex medicatio n Not available Not available Not available 06/09/202420299 7 RxNorm Crystal Lauryn null, [employer] 4 13:37:42 84985 Betadine medicatio n Not available Not available Not available 06/09/2024 0 RxNorm Crystal Lauryn null, [employer] 4 13:46:32 11702 Hibiclens medicatio n Not available Not available Not available 06/09/2024 82132 2 RxNorm Crystal Lauryn null, [employer] 4 13:47:09 Medications Name Sig Start [...] Updated DateTime 4 154.94 cm 30 kg/m2 98018.7 5 g 72 /min 99 % 130/72 mm[Hg] Crystal Lauryn [employer] 4 14:22:05 Social History Question Answer Notes LastModified by Organizat ion Details LastModified Time Tobacco Smoking Status Never Smoker Pati gamboa, [employer] 06/09/2024 13:30:00 What Was The Date Of Your Most Recent Tobacco Screening? 06/09/2024 [email or web address] Information not available 06/09/2024 What Is Your Relationship Status? [email or web address] Information not available 06/09/2024 Has Tobacco Cessation Counseling Been Provided? No [email or web address] Information not available 06/09/2024 Sex: Unknown Functional [...] 50 mcg/0.25mL dose 1 completed Pati gamboa, [employer] 06/09/2024 13:47:52 COVID-19, mRNA, LNP-S, PF, 100 mcg/0.5mL dose or 50 mcg/0.25mL dose 1 completed Pati gamboa, [employer] 06/09/2024 13:47:52 COVID-19, mRNA, LNP-S, PF, 100 mcg/0.5mL dose or 50 mcg/0.25mL dose 1 completed Pati Revelese null, [employer] 06/09/2024 13:47:52 pneumococcal polysaccharide PPV23 0 completed Pati Fieldzie null, [employer] 06/09/2024 13:47:52 Tdap 3 completed Pati gamboa, [employer] 06/09/2024 13:47:52 Pneumococcal conjugate PCV 13 7 completed Pati gamboa, [employer] 06/09/2024 13:47:52 Influenza, high-dose, trivalent, PF 3 completed Pati gamboa, [employer] 06/09/2024 13:47:52 Influenza, high-dose, trivalent, PF 8 completed Pati gamboa, [employer] 06/09/2024 13:47:52 Influenza, high-dose, trivalent, PF 0 completed Pati gamboa, [employer] 06/09/2024 13:47:52 Influenza, high-dose, trivalent, PF 9 completed Pati gamboa, [employer] 06/09/2024 13:47:52 Past Encounters Encounter ID Performer Location Encounter Start Date Encounter Closed Date Diagnosis/Indication Diagnosis SNOMED-CT Code Diagnosis ICD10 Code Diagnosis IMO Codes Diagnosis Note [id number] Crispin Boyd MD [address] [address] 06/09/2024 13:30:51 06/09/2024 14:29:09 Blood in urine 17232677 R31.9 By history the patient notes blood [...] associated third-degr ee cystocele. Screening mammography 24 408635 Z12.31 This 71-year-ol d man with yeah there is no doing better right effusion tell me with patient has not had a mammogram in over 10 years. Monthly self breast exam strongly advised. She has no family history of breast cancer Screening for osteoporosis 767563199 Z13.820 Patient does not recall ever having had a bone density study. I have advised she take 1200 mg calcium daily along with vitamin D3. Screening for malignant neoplasm of colon 291394473 Z12.11 Patient states she had a colonoscop y more than 10 years ago but has not had any follow-up since. She declines a colonoscop y at this point. I have offered her a Cologuard instead ,noting its limitation s. Patient is agreement with this. 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 She originally stated she did not know of this but on further questionin g an attempt was made with pessary placement [address] Valdez in [place]. She was fitted today with a #4 [...] (MEDICARE REPLACEMENT/A DVANTAGE - PPO) Samara Hayward [id number] Samara Hayward 06/09/2024 MEDICARE A-[place]: [employer] [facility] Samara Hayward [id number] Samara Hayward Notes Date Note Type [...] in over 10 years. Crispin Boyd MD [address] [place] [address], [address], [facility] [employer] 06/10/2024 09:00:03 OBGyn Episode No OBEpisode recorded.
--- OUTSIDE RECORDS SUMMARY | 2025-07-03 19:02 | XMS_ITS | Clinical Summary ---
Author Organization [facility] Address [facility] [place] [address] Care Team Providers Care Thermite Welder Name Role Phone Khadar Quintana MD Primary Care Provider + [phone] Source Comments This information has been disclosed [...] therelease of HIV test results or diagnoses. [id number] Allergies Active Allergy Reactions Criticality Noted [...] Insurance [employer] CHOICE PPO MEDICARE Care Teams Thermite Welder Relationship Specialty Start Date End Date Khadar Quintana MD [address] [place] [address] PCP - General Internal Medicine 05/30/22
--- OUTSIDE RECORDS SUMMARY | 2025-07-03 19:02 | XMS_ITS | Encounter Summary ---
Author Organization [employer] ([place], [place], [place], [place], [place]) Address [address] [place] [address] Care Team Providers Care Extension Agent Name Role Phone Unavailable Primary Care Provider Unavailabl e Encounter Details Date Type Department Care Team (Late st Contact Info) Description 04/01/2019 Transcribed Document [facility] [place] [facility] [place] [address] ProviderSb MD [facility] [place] [address] Social History Tobacco Use Types [...] Historical ProviderMD - 04/01/2019 2:00 AM CDT Banking Center Manager Details Entered On: 04/01/2019 1:12 EDT Performed [...]
--- OUTSIDE RECORDS SUMMARY | 2025-07-03 19:02 | XMS_ITS | Encounter Summary ---
Author Organization [employer] ([place], [place], [place], [place], [place]) Address [address] [place] [address] Care Team Providers Care Probation Counselor Name Role Phone Unavailable Primary Care Provider Unavailabl e Encounter Details Date Type Department Care Team (Late st Contact Info) Description 04/01/2019 Transcribed Document [facility] [place] Family Medicine [facility] [place] [address] ProviderSb MD [address] [place] [address] Social History Tobacco Use Types Packs/Day [...] leaving it in today. [facility]. Sonny Jeong RN - 04/01/2019 6:38 EDT documented in this encounter Plan of Treatment Not on file documented as of this encounter Visit Diagnoses Not on filedocumented in this encounter
--- OUTSIDE RECORDS SUMMARY | 2025-07-03 19:02 | XMS_ITS | Encounter Summary ---
Author Organization [employer] ([place], [place], [place], [place], [place]) Address [address] [place] [address] Care Team Providers Care Contract Mail Carrier Name Role Phone Unavailable Primary Care Provider Unavailabl e Encounter Details Date Type Department Care Team (Late st Contact Info) Description 04/01/2019 Transcribed Document [facility] [place] [facility] [place] [address] ProviderSb MD [address] [place] [address] Social History Tobacco Use Types Packs/Day [...]
--- OUTSIDE RECORDS SUMMARY | 2025-07-03 19:02 | XMS_ITS | Encounter Summary ---
Author Organization [employer] ([place], [place], [place], [place], [place]) Address [address] [place] [address] Care Team Providers Care Piercer Name Role Phone Unavailable Primary Care Provider Unavailabl e Encounter Details Date Type Department Care Team (Late st Contact Info) Description 03/13/2019 Transcribed Document [facility] [place] [facility] [place] [address] ProviderSb MD [address] [place] [address] Social History Tobacco Use Types Packs/Day [...] 8. CAD- Pt received cardiac clearance from [facility]. Problem List/Past Medical History Ongoing Aortic stenosis [...] Lymph # 1.85 K/uL 03/13/2019 13:57 EDT [place] % 8.6 % 03/13/2019 13:57 EDT [place] # 0.90 K/uL (High) 03/13/2019 13:57 EDT [...] Appearance CLEAR2 03/13/2019 13:57 EDT Urine Specific [place] 1.014 03/13/2019 13:57 EDT Urine pH Dipstick [...] Epithelial Cells 2-5 (Abnormal) 03/13/2019 13:57 EDT documented in this encounter Plan of Treatment Not on file documented as of this encounter Visit Diagnoses Not on filedocumented in this encounter
--- OUTSIDE RECORDS SUMMARY | 2025-07-03 19:02 | XMS_ITS | Encounter Summary ---
Author Organization [employer] ([place], [place], [place], [place], [place]) Address [address] [place] [address] Care Team Providers Care Independent Freight Agent Name Role Phone Unavailable Primary Care Provider Unavailabl e Encounter Details Date Type Department Care Team (Late st Contact Info) Description 04/01/2019 Transcribed Document [facility] [place] [facility] [place] [address] ProviderSb MD [address] [place] [address] Social History Tobacco Use Types Packs/Day [...]
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
--- NOTE | 2025-07-03 19:12 | PC.NURSE ---
Cherry crespo RN calls and notifies APS
--- NOTE | 2025-07-03 19:21 | PC.NURSE ---
APS report made .
--- NOTE | 2025-07-03 19:25 | PC.NURSE ---
[facility] department called.
[2025-07-03] MEDS: BACITRACIN OINT 0.9GM UDP 1 EACH TP (19:53)
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
[2025-07-03 20:28] LABS: Hematocrit 39.0 % (37.0-47.0); Hemoglobin 13.2 g/dL (12.2-16.2); Immature Granulocytes % 0.1 %; Mean Corpuscular HGB Conc 33.8 g/dL (31.8-35.4); Mean Corpuscular Hemoglobin 32.4 pg (27.0-31.2); Mean Corpuscular Volume 95.8 fl (81-99); Nucleated Red Blood Cells % 0 %; Platelet Count 226 K/mm3 (142-424); Red Blood Count 4.07 M/mm3 (4.20-5.40); Red Cell Distribution Width-SD 46.0 fL; White Blood Count 7.0 K/mm3 (4.8-10.8)
[2025-07-03 20:38] LABS: Alanine Aminotransferase 17 U/L (12-78); Albumin Level 3.7 g/dl (3.5-5.0); Albumin/Globulin Ratio 1.3 (1.1-1.8); Alkaline Phosphatase 91 U/L (38-126); Anion Gap 6.3 mEq/L (5-15); Aspartate Amino Transferase 30 U/L (14-36); Bilirubin,Total 0.5 mg/dl (0.2-1.3); Blood Urea Nitrogen 14 mg/dl (7-17); Calcium 8.9 mg/dl (8.4-10.2); Carbon Dioxide 29 mmol/L (22.0-30.0); Chloride 103 mmol/L (98-107); Creatinine Clearance Estimated 49 mL/min (50-200); Creatinine,Serum 0.70 mg/dl (0.52-1.04); Estimated Glomerular Filt Rate 81 ml/min (>60); GFR (African American) 98 ML/MIN (>60); Globulin 2.8 g/dL (1.3-3.2); Glucose 100 mg/dl (74-100); Magnesium 2.2 mg/dl (1.6-2.3); Potassium 3.3 mmoL/L (3.5-5.1); Sodium 135 mmol/L (136-145); Total Protein,Serum 6.5 g/dl (6.3-8.2)
[2025-07-03 20:47] LABS: NT Pro Brain Natriuretic Pep. 219 pg/mL (0-450)
[2025-07-03] MEDS: POTASSIUM CHLORIDE 20MEQ TAB 40 MEQ PO (21:09)
--- NOTE | 2025-07-03 22:01 | PC.NURSE ---
Spoke with central dispatch to have them do a welfare check on the . attempted to call with no response back. asked them to check on him and also tell him to call the hospital.
--- NOTE | 2025-07-03 22:11 | PC.NURSE ---
central dispatch called back to get clarification on if the pt is okay with going home and feels safe. The deputy said last time he spoke to us a few hours ago the pt didnt want to go home but we have spoke to the pt now and she says she is ready to go home and feels safe to do so. I have reassured dispatch and deputy that pt did tell me and CARMITA Queen that she was ready to go home and is fine with her coming to get her. dispatch says they will send deputy out to check on and tell him to give us a call back.
--- NOTE | 2025-07-03 22:49 | PC.NURSE ---
Pt's daughter (Alexys) arrived at the hospital. I spoke with pt and she agreed for Alexys to come back to the room. This RN answered questions for the daughter and then escorted her to Room 2. Pt was visibly upset but very thankful that her daughter was here.
== END 2025-07-03 23:21 | disposition home or self-care (01) ==
PROVIDERS: Nurse Practitioner Family; Emergency Provider Student in an Organized Health Care Education/Training Program; PCP Internal Medicine
DX: L03.116 Cellulitis of left lower limb (principal); I10 Essential (primary) hypertension; Z86.79 Personal history of other diseases of the circulatory system; Z95.5 Presence of coronary angioplasty implant and graft
CPT/HCPCS: 73590; 73630; 80053; 83605; 83735; 83880; 85025; 99284

== ENCOUNTER 2025-07-07 21:12 | Inpatient (IN) | payer MEDICARE, SELFPAY ==
[2025-07-07] VITALS (11 sets, daily range): BP systolic 122–143; BP diastolic 62–85; PULSE 80–91; RESP 18; TEMP 36.7; O2SAT 97–99; BMI 34.9
--- OUTSIDE RECORDS SUMMARY | 2025-07-07 21:18 | XMS_ITS | Encounter Summary ---
Author Organization [facility] ([place], [place], [place], [place], [place]) Address [address] [place] [address] Care Team Providers Care Ear Mold Laboratory Technician Name Role Phone Unavailable Primary Care Provider Unavailabl e Encounter Details Date Type Department Care Team (Late st Contact Info) Description 04/03/2019 Transcribed Document [facility] [place] Family Medicine [facility] [place] [address] ProviderSb MD [address] [place] [id number] Social History Tobacco Use Types Packs/Day [...] Man MD - 04/03/2019 3:08 PM CDT [place] [id number] ARIEL SHARONDA S :1945 Visit Time:03/31/2019 Your [...] ? Using the bathroom. ? Using household oil winterizer or poisonous chemicals. ? Touching or taking [...] 07/05/2009 Document Revised: 12/28/2016 Document Reviewed: 12/18/2014 [employer] Interactive Patient Education ?? 2018 [employer] Fall Prevention in the Home, Adult [...] Keep items that you use often in nicf-hp-vyqjw places. Lower the shelves around your home [...] the way. ??? Do not use floor turkmen or wax that makes floors slippery. If [...] Control and Prevention, STEADI: https://cdc.gov ??? National Doyline on Aging: https://iu0ediy.joe.nih.gov Contact a doctor if: ??? You are [...] 05/19/2010 Document Revised: 03/07/2018 Document Reviewed: 03/07/2018 [employer] Interactive Patient Education ?? 2019 [employer] What to expect after the Procedure: [...] Barley. Bulgur wheat. Millet. Bran muffins. Popcorn. [place] wafer crackers. Vegetables Sweet potatoes. Spinach. Kale. Artichokes. Cabbage. Broccoli. Green peas. Carrots. Squash. Fruits Berries. Pears. Apples. Oranges. Avocados. Prunes and raisins. Dried figs. Meats and Other Protein Sources Miguel Barrera, kidney, mariscal, and soy beans. Split peas. [...] davey has 11 g of protein. ??? [place] seeds ??? 1 oz has 5.5 g [...] floor. ??? Place frequently used items in yvkn-uy-ozxzh places ??? Keep electrical cables out of [...] ??? Using the bathroom. ??? Using household oil winterizer or toxic chemicals. ??? Touching or taking [...] may report side effects to FDA at 1-571-ZUM-9790. What other drugs will affect acetaminophen and [...] affect acetaminophen and oxycodone, including prescription and qmzt-ykp-nkbwrxl medicines, vitamins, and herbal products. Not all [...] to ensure that the information provided by [employer] ('[employer]') is accurate, up-to-date, and complete, but no guarantee is made to that effect. Drug information contained herein may be time sensitive. [employer] information has been compiled for use by healthcare practitioners and consumers in the [place] and therefore [employer] does not warrant that uses outside of the [place] are appropriate, unless specifically indicated otherwise. [employer] drug information does not endorse drugs, diagnose patients or recommend therapy. [employer] drug information is an informational resource designed [...] effective or appropriate for any given patient. [employer] does not assume any responsibility for any aspect of healthcare administered with the aid of information [employer] provides. The information contained herein is not intended to cover all possible uses, directions, precautions, warnings, drug interactions, allergic reactions, or adverse effects. If you have questions about the drugs you are taking, check with your doctor, nurse or pharmacist. Copyright 0713-6779 [employer]. Version: 18.02. Revision Date: 07/03/2018. Emergency Awareness [...] Assistance with quitting is available by contacting 5-257-ZJDSNOW. This is a free resource providing counseling, [...] range between ( 1.0 and 7.0 ) Rowan #: 0.90 K/uL -- Normal range between ( 0.24 and 0.82 ) Eos #: 0.22 K/uL -- Normal range between ( 0.04 and 0.54 ) Rowan %: 8.6 % -- Normal range between [...] ) Urine Bilirubin Dipstick: Negative Urine Specific Bradley: 1.014 -- Normal range between ( 1.005 and 1.030 ) Urine Type.: U [employer] General Chemistry 04/01/19 03:11:00 Creatinine Level: 0.82 [...] was given the opportunity to ask questions. Patient/Boring Machine Set Up Operator Name: Patient/Boring Machine Set Up Operator Signature: Relationship to Patient: Clinician/Hospital Boring Machine Set Up Operator Signature: Date: documented in this encounter Plan of Treatment Not on file documented as of this encounter Visit Diagnoses Not on filedocumented in this encounter
--- OUTSIDE RECORDS SUMMARY | 2025-07-07 21:18 | XMS_ITS | Clinical Summary ---
Author Organization [facility] Address [address] [place] [address] Phone Care Team Providers Care Surgical Pathologist Name Role Phone JOHNSON GONCALVES DO Primary Care Provider [phone] Adrián Swenson MD Unavailable [phone] Rafi Roberts MD Unavailable [phone] Reason for Visit and Chief Complaint The Chief Complaint is: Left hip pain Problems Includes: Problems addressed during this encounter and other active Problems Current Visit Onset Date Resolved Date Provider Conditio n Status Lower Back Pain 01/07/2024 Constantine Garcia PA-C A ctive Last Documented On 4 1:00PM ; [facility], [facility] Past Visits Onset Date Resolved Date Provider Condition Status Joint Pain Hip Left 07/19/2016 Catracho Rubio MD Active Last Documented On 6 2:14PM ; [facility] Joint Pain Knee 10/14/2013 Catracho Rubio MD A ctive Last Documented On 4 2:09PM ; [facility] Plan of Treatment Instructions to patient Instructions for patient see pcp for elevated bp Last Documented On 0 2:24PM ; [facility] Assessments Includes: Assessments from this encounter [...] - Last Documented On 10/03/2019 3:04PM ; [facility] After long discussion with Dr Rubio the patient is in agreement in regards to the source of her pain potentially being her low back. Further discussion isolated her source of pain from her back more so than her hip. At this time it was decided we would proceed with a referral to Dr. Payam aHll for further evaluation of her lumbar spine and the left lower extremity radiculopathy.. We will obtain a [place] MRI of the lumbar spine and refer her to Dr. Fernández. She understands and is agreeable and would like to proceed as possible. We therefore make the appropriate arrangements and see her back 6 months. - Last Documented On 10/03/2019 3:04PM ; [facility] X-rays: AP pelvic and lateral x-rays of the left hip demonstratewell-positioned femoral and acetabular component. The prostheses are in good position. There is no evidence of loosening or fracture noted. The head is well reduced into the acetabular component. Otherwise unremarkable x-ray of the left total hip arthroplasty. - Last Documented On 10/03/2019 3:04PM ; [facility] Electronically signed by Abner Mcwilliams PA-C - Last Documented On 10/03/2019 3:04PM ; [facility] Instructions Includes: Instructions from this encounter Instructions to patient Instructions for patient see pcp for elevated bp Last Documented On 0 2:24PM ; [facility] Medical Equipment - Implanted Devices Includes: Current Devices No Medical Equipment Recorded Medications Includes: Medications discussed during this encounter and other current Medications Current Medications (continue as prescribed) diphenhydrAMINE HCl 5 MG/ML Oral Suspension Reconstitu paras 01/07/2024 Provider: Diagnosis: Last Documented On 4 1:30PM By Radha Stafford ; [facility] Klor-Con M20 20 MEQ Oral Tablet Extended Release 01/06 Provider: Diagnosis: Last Documented On 4 1:31PM By Radha Stafford ; [facility] Phenazopyridine HCl 200 MG Oral Tablet 01/04/2024 Pr ovider: Diagnosis: Last Documented On 4 1:02PM By Radha Stafford ; [facility] Symbicort 160-4.5 MCG/ACT Inhalation Aerosol Provider: Diagnosis: Last Documented On 4 1:02PM By Radha Stafford ; [facility] Nitrofurantoin Monohyd Macro 100 MG Oral Capsule 12/18 Provider: Diagnosis: Last Documented On 4 1:02PM By Radha Stafford ; [facility] Premarin 0.625 MG/GM Vaginal Cream 12/14/2023 Provid er: Diagnosis: Last Documented On 4 1:02PM By Radha Stafford ; [facility] traMADol HCl 50 MG Oral Tablet 12/14/2023 Provider: MARIIA OLIVAS MD Diagnosis: Last Documented On 4 1:02PM By Radha Stafford ; [facility] Nystatin [id number] UNIT/GM External Ointment 12/03/2023 Provider: Diagnosis: Last Documented On 4 1:02PM By Radha Stafford ; [facility] Atorvastatin Calcium 20 MG Oral Tablet 11/21/2023 Pr ovider: MARIIA OLIVAS MD Diagnosis: Last Documented On 4 1:30PM By Radha Stafford ; [facility] Potassium Chloride Zaina ER 2 0 MEQ Oral Tablet Extended Release 09/08/2023 Provider: Kathleen Sanderson APRN Diagnosis: Last Documented On 4 1:02PM By Radha Stafford ; [facility] Furosemide 20 MG Oral Tablet 08/16/2023 Provider: Kathleen Sanderson APRN Diagnosis: Last Documented On 4 1:02PM By Radha Stafford ; [facility] Ipratropium-Albuterol 0.5-2.5 (3) MG/3ML Inhalat ion Solution 08/01/2023 Provider: Diagnosis: Last Documented On 4 1:31PM By Radha Stafford ; [facility] Medications Administered Includes: Administered Medications from this encounter No Administered Medications Recorded Vital Signs Includes: Vital Signs from this encounter Vital Name 09/24/2019 02:24P Blood Pressure Sitting (mmHg) 106/56 Pulse Rate-Sitting (bpm) 67 Height (in) 62 Weight (lb) 194 Body Mass Index (kg/m2) 35.5 Body Surface Area (m2) 1.9 Note: tmg Last Documented: On 09/24/2019 2:39PM ; [facility] Results Includes: Results discussed during [...] 06/11/2019 Last Documented On 0 2:24PM ; [facility] No recent change in diet 07/19/2016 Last Documented On 0 2:24PM ; [facility] Not a current smoker 07/19/2016 Last Documented On 0 2:24PM ; [facility] Not exercising regularly 07/19/2016 Last Documented On 0 2:24PM ; [facility] Not using alcohol 07/19/2016 Last Documented On 0 2:24PM ; [facility] Not using drugs 07/19/2016 Last Documented On 0 2:24PM ; [facility] No tobacco use 10/14/2013 Last Documented On 0 2:24PM ; [facility] Smoking status : Never smoked/ Recode: 4 10/14/2013 Last Documented On 0 2:24PM ; [facility] Procedures and Surgical History Includes: Procedures from this encounter Procedures Code Diagnosis Performing Provider Service L ocation Service Date Clinical summary provided to patient Last Documented On 0 2:38PM ; [facility] Surgical History Last Updated History of appendectomy 09/24/2019 Last Documented On 0 3:04PM ; [facility] History of back surgery 09/24/2019 Last Documented On 0 3:04PM ; [facility] History of hysterectomy 09/24/2019 Last Documented On 0 3:04PM ; [facility] Medical History Includes: Medical History addressed during this encounter Description Last Updated left carpal tunnel ~right and left arm r otator cuff ~blood transfusion 09/24/2019 Last Documented On 0 3:04PM ; [facility] A recent immunization for pneumococcal p neumonia 06/201609/24/2019 Last Documented On 0 3:04PM ; [facility] Arthritic joint problems 09/24/2019 Last Documented On 0 3:04PM ; [facility] Gallbladder disease 09/24/2019 Last Documented On 0 3:04PM ; [facility] History of diverticulitis of colon 09/24 Last Documented On 0 3:04PM ; [facility] History of hepatitis 09/24/2019 Last Documented On 0 3:04PM ; [facility] Intermittent hypertension 09/24/2019 Last Documented On 0 3:04PM ; [facility] Family History Includes: Family History addressed during this encounter Description Last Updated Family history of cancer 09/24/2019 Last Documented On 0 3:04PM ; [facility] Family history of heart disease 09/24/19 20 Last Documented On 0 3:04PM ; [facility] Family history of hypertension 0 Last Documented On 0 3:04PM ; [facility] Family history of rheumatoid arthritis m other 09/24/2019 Last Documented On 0 3:04PM ; [facility] Review of Systems Includes: Review of [...] ve Last Documented On 4 9:47AM ; [facility] Keflex Allergy 10/14/2013 Active Last Documented On 4 9:47AM ; [facility] Betadine Allergy 10/14/2013 Active Last Documented On 4 9:47AM ; [facility] Bactroban Allergy 03/28/2019 Active Last Documented On 4 9:47AM ; [facility] Encounters Encounter Provider Location Date Check-In Time Check- Out Time Diagnosis Follow Up Catracho Rubio MD [facility] 0 2:25PM 3:59PM Insurance Includes: Active Insurance Policies Plan Name Member ID Group # Subscriber Relationship Effect etelvina Dates 1 - [employer] [id number] Samara Hayward Self 07/16/2019 - Unknown Clinical Notes Includes: Clinical Notes from this encounter No Clinical Notes Recorded
--- OUTSIDE RECORDS SUMMARY | 2025-07-07 21:18 | XMS_ITS | Referral Summary ---
Author Organization [employer] ([place], [place], [place], [place], [place]) Address [address] [place] [address] Care Team Providers Care Superintendent Building Name Role Phone Unavailable Primary Care Provider [...]
--- OUTSIDE RECORDS SUMMARY | 2025-07-07 21:18 | XMS_ITS | Data Portability ---
Author Organization [facility] Address [address] [place] [address] Care Team Providers Care Band Cutter Name Role Phone ZANE RAMSAY Primary Care Provider [phone] ZAIN RUIZ Referring Provider Assessment Encounter Date Assessment Date Assessment LastModified by Organization Details LastModified Time 05/12/2024 05/12/2024 HPI: This is a 79-year-old female with chronic low back and leg pain She is referred by Dr. English for spinal cord submitted trial, prior surgical history includes lumbar fusion in 2002. This was performed in [facility]. Injection therapy in the past at the [facility] pain clinic with short-term benefit. No prior [...] Much of this encounter is an electronic contact lens edge buffer/santillan slation of spoken language to printed text. [...] fusion in 2002. This was performed in [facility]. Injection therapy in the past at the [facility] pain clinic with short-term benefit. No prior [...] clinic for sooner follow up if needed. [email or web address] Not available 09/04/2024 16:23:20 Plan of Treatment Reminders Order Date Submit Date Provider Last Modified By Organization Details Last Modified Time Details Appointments None recorded. Lab HbA1c (hemoglobi n A1c), blood 2024 025 [email or web address] [facility], [facility], [address] [place] [address], [address], 5 16:08:12 methicilli n resistant staphyloco ccus aureus, culture, nasal 2024 025 [email or web address] [facility], [facility], [address] [place] [address], [address], 5 16:08:12 HbA1c (hemoglobi n A1c), blood 2023 024 [email or web address] [facility], [facility], [address] [place], [address], 4 10:41:07 methicilli n resistant staphyloco ccus aureus, culture, nasal 2023 024 NAHEED [facility], [facility], [address] [place] [address], [place], [address], 4 07:22:[address] referral - Please eval for spinal cord stimulator . patient is requesting an in-person consult. please contact with any issues! Thank you! 2024 025 [email or web address] [facility], [address], [place], [address], 5 16:06:[address] referral 2023 024 [email or web address] [facility], [address], [place], [address], 4 10:40:08 Procedures spinal cord stimulator trial (PROC) - SCS Trial 1.) Psych: [facility] - referred 09/17/24 2.) Clearances : none 3.) Hold Meds: none 4.) Labs: A1C, MRSA [+], CBC [09/2024] *VANCO *MRI Tspine [pending scheduling ] 2024 025 [email or web address] Not available 5 16:07:13 remote therapeuti c monitoring to monitor musculoske letal system (PROC) 2024 025 [email or web address] Not available 5 16:23:42 remote therapeuti c monitoring to monitor musculoske letal system (PROC) 2023 024 [email or web address] Not available 4 08:57:18 spinal cord stimulator trial (PROC) 2023 024 [email or web address] Not available 4 10:40:59 Surgeries None recorded. Imaging MRI, thoracic spine, w/o contrast - Spinal Cord Stimulator Workup, please evaluate patency of thoracic canal for placement of percutaneo us stimulator lead, entry point T12/L1, terminatio n of tip likely T7 superior endplate [address], [address], [place], [address], 5 09:03:07 MRI, thoracic spine, w/o contrast - Spinal Cord Stimulator Workup, please evaluate patency of thoracic canal for placement of percutaneo us stimulator lead, entry point T12/L1, terminatio n of tip likely T7 superior endplate [address] ([facility]), [address], [place], [address], 4 10:14:33 Medication Orders Hibiclens 4 % topical liquid [email or web address] [place] [address] [address], [facility] [place], [address], 16:23:30 Hibiclens 4 % topical liquid 2023 025 [facility], [address] [place], [address], 15:12:39 Patient TargetsNo targets recorded. Patient Instructions Encounter Date Encounter Id Patient Instructions Last Modified By Organization Details Last Modified Time 05/12/2024 [id number] behavioral healt h screen* Not available 05/15/2024 11:30:55 Education and training for patient self-management by a qualified, nonphysician health care administrative tech using a standardized curriculum, [id number] with the patient; individual patient* [email or web address] Not available 05/15/2024 11:31:26 spinal cord stimualtor trial information Not available 05/12/2024 16:43:57 09/04/2024 [id number] Education and training for patient self-management by a qualified, nonphysician health care administrative tech using a standardized curriculum, [id number] with the patient; individual patient* [email or web address] Not available 10/08/2024 07:42:35 spinal cord stimualtor trial information [email or web address] Not available 09/04/2024 16:23:30 behavioral healt h screen* [email or web address] Not available 10/08/2024 07:42:35 Reason for Referral [...] Address Organization Details Recorded Time Lumbar spondylosis 978515209 Active 2023 Madeline Lagace null, [place] - [facility] 4 15:55:35 Chronic pain 92877093 Active 2023 Madeline Lagace null, [place] - [facility] 4 15:55:35 Lumbar radiculopathy 049186659 Active 2023 Madeline Lagace null, [place] - [facility] 4 15:55:35 Overweight 780130461 Active 2023 Madeline Lagace null, [place] - [facility] 4 15:55:37 Lumbar post-laminecto my syndrome 799183739 Active 2023 Madeline Lagace null, [place] - [facility] 4 16:32:20 Problem Notes None recorded. Procedures Surgical History Date Name Laterality Status Provider Name and Address Organization Details Recorded Time Appendectomy completed Tiffani Alvarado [place] - [facility] 05/08/2024 09:20:54 Carpal tunnel surgery completed Tiffani ZIMMERMAN - [facility] 05/08/2024 09:21:31 complete repair of rotator cuff completed Tiffani ZIMMERMAN - [facility] 05/08/2024 09:22:03 Hysterectomy completed Tiffani ZIMMERMAN - [facility] 05/08/2024 09:22:19 procedure on gallbladder completed Tiffani ZIMMERMAN - [facility] 05/08/2024 09:22:29 total replacement of hip completed Tiffani ZIMMERMAN - [facility] 05/08/2024 09:22:50 Imaging Results None recorded. Procedure Notes None recorded. Medical Equipment None Reported. Allergies Allergen ID Allergen Name Allergen Category Reaction Reaction Severity Criticality Documentation Date Start Date Code Code System Note Provider Name and Address Organization Details Recorded Time 222235 Bactroban medicatio n Not available Not available Not available 04/15/2024 07342 1 RxNorm Nayeli noemier ELSIE gamboa - [facility] 4 13:27:23 238286 Betadine medicatio n Not available Not available Not available 04/15/2024 87864 0 RxNorm Nayeli ELSIE dia - [facility] 4 13:27:29 435674 Keflex medicatio n Not available Not available Not available 04/15/2024 28021 7 RxNorm Nayeli ELSIE dia - [facility] 4 13:29:16 484966 nickel environme nt Not available Not available Not available 04/15/2024 88385 29 RxNorm Nayeli noemier bee, ELSIE - [facility] 4 13:29:21 Medications Name Sig Start Date [...] Updated DateTime 5 154.94 cm 30.2 kg/m2 33827.7 8 g 76 /min 96 % 10 138/71 mm[Hg] Fausto Kaye [facility] 5 15:11:26 Date Recorded Body height Body mass index (BMI) Body weight Heart rate Oxygen saturation Systolic And Diastolic Provider Name and Address Organization Details Last Updated DateTime 4 154.94 cm 30.2 kg/m2 04569.7 8 g 79 /min 96 % 125/76 mm[Hg] Madeline Henry [facility] 4 15:57:10 Social History Question Answer Notes LastModified by Organizat ion Details LastModified Time Tobacco Smoking Status Never Smoker Tiffani gamboa [facility] 05/08/2024 09:20:39 Do You Have An Advance Directive? Yes Information not available 05/12/2024 What Type Of Diet Are You Following? REGULAR Information not available 05/12/2024 What Is The Highest Grade Or Level Of School You Have Completed Or The Highest Degree You Have Received? [id number] Information not available 05/12/2024 Do You Have A Medical Power Of Room Service Manager? Yes Information not available 05/12/2024 What Was [...] Ulcer Disease N Anemia N Heart Attack ([place]) N Diabetes N Cardiomyopathy N Bleeding Disorder [...] ICD10 Code Diagnosis IMO Codes Diagnosis Note [id number] MD Safia HOSKINS [address] [place] [address] 05/12/2024 14:25:01 05/12/2024 17:28:44 Lumbar spondylosis 650760215 M47.816 Lumbar radiculopathy 128 830341 M54.16 Chronic pain 66614305 G8 9.29 Lumbar post-laminectomy syndrome 031915104 M96.1 [id number] OSCAR AZAR MD [place] [address] [place] [address] 09/04/2024 14:41:19 09/04/2024 15:51:07 Lumbar radiculopathy 123506136 M54.16 Chronic pain 04015053 G8 9.29 Lumbar post-laminectomy syndrome 932344830 M96.1 Health Concerns Section Related Observation LastModified by Organization Detai ls LastModified Time None Recorded Concern Status LastModified by Organization Details LastModified Time None Recorded Advance Directives Directive Y: Payers Insurance Date Sequence Insurance Name Policy Number Policy Alexander Covered Member ID Alexander Member ID Guarantor Name 09/08/2024 1 [employer] (MEDICARE REPLACEMENT/ ADVANTAGE - PPO) Samara Hayward [id number] Samara Hayward Notes Date Note Type Note Provider Name and Address Organization Details Recorded Time 05/12/20 24 text/ht ml Low back painReported by PatientHPIFor associated symptoms, patient reportsweaknessandnumbnessbut reportsno tingling,no swelling,no popping/clicking,no bowel incontinence,no urinary retention,no urinary incontinence, andno perineal paresthesia/anesthesia(after epidural she started having pain in groin area). 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 For prior pain management, patient reportsyes:([facility], heating pad helps while shes using it). For oswestry disability index (shad), patient reportsscore/date completed: (05/12/2024 60). For for female patients, patient reportsare you ? no. For medications history, (pt takes ibuprofen). Low back pain that radiates left side to foot , SHAD 60 PHQ 2 OSCAR AZAR MD [address] [place] [address], [address], [facility] 05/12/2024 16:44:02 09/04/19 25 text/ht ml Low back painReported by PatientHPIFor associated symptoms, patient reportsweaknessandnumbnessbut reportsno tingling,no swelling,no popping/clicking,no bowel incontinence,no urinary retention,no urinary incontinence, andno perineal paresthesia/anesthesia(after epidural she started having pain in groin area). 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 For prior pain management, patient reportsyes:([facility], heating pad helps while shes using it). For oswestry disability index (shad), patient reportsscore/date completed: (05/12/2024 60). For for female patients, patient reportsare you ? no. For medications history, (pt takes ibuprofen).ROS as noted in the HPI pt states she is in pain. LEFTY BERNARDO [address] [place] [address], [place], [address], [facility] 09/04/2024 16:24:01 OBGyn Episode No OBEpisode recorded.
--- OUTSIDE RECORDS SUMMARY | 2025-07-07 21:18 | XMS_ITS | Encounter Summary ---
Author Organization [employer] ([place], [place], [place], [place], [place]) Address [address] [place] [address] Care Team Providers Care Forging Machine Hand Name Role Phone Unavailable Primary Care Provider Unavailabl e Encounter Details Date Type Department Care Team (Late st Contact Info) Description 03/31/2019 Transcribed Document [facility] Family [place] [address] ProviderSb MD [address] [place] [address] Social History Tobacco Use Types Packs/Day [...] Health Plan: [employer] CHOICE PPO Policy Number: [id number] Authorization Number: [id number] Insurance Primary Name : [employer] CHOICE PPO Policy Number: [id number] Authorization Status-Primary : Notification only Authorization Number-Primary : [id number] Authorized Service Begin Date-Primary : 03/31/2019 EDT Authorization Comments-Primary : Uploaded clinicals to [employer] via [employer]. Historical Authorization Comments-Primary : Comment 1: [employer] CHOICE PPO approved per availity for inpt -- must fax clinicals (MANUEL HAMPTON RN-Utilization Review 03/19/2019 11:55) GIOVANNI OCHOA RN-Utilization Review - 03/31/2019 14:40 EDT documented in this encounter Plan of Treatment Not on file documented as of this encounter Visit Diagnoses Not on filedocumented in this encounter
--- OUTSIDE RECORDS SUMMARY | 2025-07-07 21:18 | XMS_ITS | Encounter Summary ---
Author Organization Healthcare Address [address] [place] [address] Care Team Providers Care Control Systems Specialist Name Role Phone Nabeel Rios MD Primary Care Provider [phone] Encounter Details Date Type Department Care Team (Late Contact Info) Description 05/06/2025 Orders Only Medical Office Building Obstetrics and Gynecology [address] [facility] [place] [address] Rosa Marks [address] Social History Tobacco Use Types Packs/Day Years [...] Office Building Obstetrics and Gynecology [address] [facility] [place] [address] Angelina Carl APRN [address] [facility] [address] [place] [address] documented as of this encounter Visit Diagnoses Not on filedocumented in this encounter Care Teams Control Systems Specialist Relationship Specialty Start Date End Date Nabeel Rios MD [address] [facility] [address] [place] [address] PCP - General 05/06/25 documented as of this encounter
--- OUTSIDE RECORDS SUMMARY | 2025-07-07 21:18 | XMS_ITS | Encounter Summary ---
Author Organization [employer] ([place], [place], [place], [place], [place]) Address [address] [place] [address] Care Team Providers Care Culinary Chef Name Role Phone Unavailable Primary Care Provider Lisset e Encounter Details Date Type Department Care Team (Late st Contact Info) Description 03/31/2019 Transcribed Document [facility] [place] [facility] [place] [address] ProviderSb MD [address] [place] [address] Social History Tobacco Use Types Packs/Day [...] direct anterior approach. SURGEON: Yamileth Omer M.D. PROCUREMENT PROFESSIONAL LOGISTICS: Eleazar Lockett assisted the surgeon in completing [...] general anesthesia was placed supine on the Palmer table. The feet were positioned in the Palmer boots with the feet well padded. The [...] position and impacted. The hook for the Palmer table was then inserted distally to the [...] were performed to determine ideal stability and orthodox of proper leg length. confirmed by the image intensifier. The final prostheses were impacted in position and the ceramic head then impacted on the Ko taper of the stem with the -[address] The hip was reduced. The patient had orthodox of leg length checked by the image [...]
--- OUTSIDE RECORDS SUMMARY | 2025-07-07 21:18 | XMS_ITS | Clinical Summary ---
Author Organization [employer] ([place], [place], [place], [place], [place]) Address [address] [place] [address] Care Team Providers Care Manufacturer'S Representative Name Role Phone Unavailable Primary Care Provider [...]
--- OUTSIDE RECORDS SUMMARY | 2025-07-07 21:18 | XMS_ITS | Clinical Summary ---
Author Organization Healthcare Address [address] [place] [address] Care Team Providers Care Material Planner Name Role Phone Nabeel Rios MD Primary Care Provider [phone] Allergies Active Allergy Reactions Criticality Noted Date [...] Office Building Obstetrics and Gynecology [address] [facility], [address] [place] [address] Rosa Marks 05/06/2025 Telephone Medical Office Building Obstetrics and Gynecology [address] [facility] [place] [address] Angelina Carl APRN from Last [...] Upcoming Encounters Date Type Department Care Team ([facility] st Contact Info) Description 09/22/2025 2:00 PM EST Office Visit Medical Office Building Obstetrics and Gynecology [address] [facility], [address] [place] [address] Angelina Carl R, NURSE [facility] [address] [facility] [address] [place] [address] Health Maintenance Due Date Last Done Comments [facility]-Bone Density Scan 1945 [facility]-Depression Screening 1945 [facility]-Hepatitis C Screening 1945 [facility]-Medicare Annual Wellness (AWV) 1945 [facility]-Infant/Child/Adol SDOH Screenings 1945 [facility]- SDOH Screenings 1964 [facility]-Adult SDOH Screenings 1964 [facility]-Zoster Vaccines (1 of 2) 1996 [facility]-RSV Vaccine: 60+ Years or (1 - 1-dose 75+ series) 2021 VIV-AHHZA-54 Vaccine (4 - season) 2025 06/29/2021, 11/05/2020, [...] Health Maintenance Insurance [employer] MEDICARE Care Teams Material Planner Relationship Specialty Start Date End Date Nabeel Rios MD [address] [facility] [address] [place] [address] PCP - General 05/06/25
--- OUTSIDE RECORDS SUMMARY | 2025-07-07 21:18 | XMS_ITS | Encounter Summary ---
Author Organization [employer] ([place], [place], [place], [place], [place]) Address [address] [place] [address] Care Team Providers Care Desk Manager Name Role Phone Unavailable Primary Care Provider Unavailabl e Encounter Details Date Type Department Care Team (Late st Contact Info) Description 04/01/2019 Transcribed Document [facility] [place] [facility] [place] [address] ProviderSb MD [address] [place] [address] Social History Tobacco Use Types Packs/Day [...]
--- OUTSIDE RECORDS SUMMARY | 2025-07-07 21:18 | XMS_ITS | Encounter Summary ---
Author Organization [employer] ([place], [place], [place], [place]) Address [address] [place] [address] Care Team Providers Care Laboratory Assistant Name Role Phone Unavailable Primary Care Provider Unavailabl e Encounter Details Date Type Department Care Team (Late st Contact Info) Description 04/01/2019 Transcribed Document [facility] Family Medicine [facility] [place] [address] ProviderSb MD [address] [place] [address] Social History Tobacco Use Types Packs/Day [...] mL inj 40 mg 0.4 mL, SubCutaneous, H50HInx folic acid 1 mg tab 1 mg [...] Oral, Daily phenol 1.4% throat spray 5 Climax, Oral, Q2H promethazine 25 mg tab 12.5 [...] options regarding home was on hemodialysis versus rehabilitation/halfway facility. documented in this encounter Plan of Treatment Not on file documented as of this encounter Visit Diagnoses Not on filedocumented in this encounter
--- OUTSIDE RECORDS SUMMARY | 2025-07-07 21:18 | XMS_ITS | Encounter Summary ---
Author Organization [employer] ([place], [place], [place], [place], [place]) Address [address] [place] [address] Care Team Providers Care Slice Cutting Machine Operator Helper Name Role Phone Unavailable Primary Care Provider Unavailabl e Encounter Details Date Type Department Care Team (Late st Contact Info) Description 03/31/[address] [facility] [place] [facility] [place] [address] ProviderSb MD [address] [place] [address] Social History Tobacco Use Types Packs/Day [...] 03/31/2019 16:02 EDT by DAHIANA ROY Care Management-Interface Engineer Initial Assessment I Previously Documented Living Environment : No qualifying data available. Living Situation : Home Patient Lives With : Spouse Emergency Contact #1 : Vijay Hayward Emergency Contact #1 Emergency Contact #1 Relationship : spouse Emergency Contact #2 : . Emergency Contact #2 Phone Number : . Emergency Contact #2 Relationship : . DAHIANA ROY Care Management-Interface Engineer - 03/31/2019 16:02 EDT Initial Assessment II Sensory and Motor Deficits : Other: GATO Current Home Treatments and Equipment : Bedside commode DAHIANA ROY Care Management-Interface Engineer - 03/31/2019 16:02 EDT Discharge Needs I Anticipated Discharge Date : 04/01/2019 EDT Anticipated Discharge To, CM : Home with home health Current Home Treatment/Equipment : Current Home Treatment/Equipment No qualifying data available. Post Acute/Home Treatments : Walker DAHIANA ROY, Care Management-Interface Engineer - 03/31/2019 16:02 EDT Discharge Needs II Professional Skilled Services : Professional Skilled Services No qualifying data available. Discharge Options Discussed with Patient : DME, Home Health KIRILL, DAHIANA, Care Management-Interface Engineer - 03/31/2019 16:02 EDT Narrative Note [...] WALKER SHE NEEDS ONE. DAHIANA ROY Care Management-Interface Engineer - 03/31/2019 16:02 EDT documented in this encounter Plan of Treatment Not on file documented as of this encounter Visit Diagnoses Not on filedocumented in this encounter
--- NOTE | 2025-07-07 21:19 | HMH.EDGENADL ---
Discharge Plan Disposition Patient Disposition: Admitted Prescriptions Prescriptions: No Action albuterol sulfate 90 mcg/actuation HFA aerosol inhaler 2 inh inhalation Q6H PRN (Reason: shortness of breath or wheezing) 90 Days Qty: 8.5 2RF fluticasone propionate [Flonase Allergy Relief] 50 mcg/actuation spray,suspension 2 spray intranasal DAILY 90 Days Qty: 16 2RF Rx Instructions: administer into each nostril ipratropium-albuterol 0.5 mg-3 mg(2.5 mg base)/3 mL solution for nebulization 3 ml inhalation Q6H PRN (Reason: shortness of breath or wheezing) Qty: 180 3RF lidocaine 5 % cream 1 applic topical QID PRN (Reason: pain) Qty: 60 5RF Rx Instructions: Apply a thin layer to area of pain 4 times a day as needed. hydroxyzine HCl 25 mg tablet 25 mg PO HS PRN (Reason: Insomnia or anxiety) Qty: 30 0RF levofloxacin 250 mg tablet 250 mg PO DAILY Qty: 7 0RF doxycycline hyclate 100 mg capsule 100 mg PO BID Qty: 30 1RF mupirocin [Centany] 2 % ointment 1 applic topical TID Qty: 44 1RF levofloxacin 750 mg tablet 750 mg PO DAILY Qty: 7 0RF sennosides [senna] 8.6 mg tablet 8.6 mg PO BID PRN (Reason: Constipation) azelastine 137 mcg (0.1 %) spray,non-aerosol 2 spray intranasal HS PRN Rx Instructions: administer into each nostril furosemide [Lasix] 40 mg tablet 40 mg PO DAILY Qty: 30 2RF triamcinolone acetonide 0.1 % cream 1 applic topical TID Qty: 453.6 0RF clonazepam 1 mg tablet 1 mg PO BID PRN (Reason: Nervousness) Qty: 90 0RF Rx Instructions: 1 mg twice a day and 30 minutes before bedtime atorvastatin 20 mg tablet 20 mg PO HS Qty: 90 1RF lisinopril 10 mg tablet 10 mg PO BID Qty: 180 1RF potassium chloride [Klor-Con M20] 20 mEq tablet,ER particles/crystals 20 meq PO DAILY Qty: 90 1RF Referrals Follow up/Referrals: Nabeel Rios MD [Primary Care Provider, Medical] - See instructions Clinical Impressions Clinical Impression: Cellulitis, Suicide ideation Instructions Patient Instructions: DI for Laceration Repair Print Language Print Language: Faroese Discharge ED Provider: Diego Fernandes General Adult HPI <Kerrymayi Ac (ED), MAINTENANCE MECHANIC M[employer] - Last Filed: 07/07/25 22:05> General Chief complaint: Wound/Laceration Stated complaint: leg wound, emotional distress Time Seen by Provider: 07/07/25 21:14 Mode of Arrival: EMS Source of Information: Patient Description of Symptoms (Recalled from ER Triage Doc. by RN): EMS states patient has called them multiple times over the past two weeks. States today family called for a wound on the lateral aspect of her left leg. Redness present around, with purulit wound bed. Patient has no complaints. States her leg just isnt getting better. Denies any recent fever or sickness. History of Present Illness HPI narrative: 80-year-old female presents to the ED via EMS for a leg wound on the left lower extremity. She does have redness present. She has seen Dr. Rios for this in per patient told to elevate her left leg put bacitracin on it and take an antibiotic for it. She states that her leg just is not getting better after 2 days of antibiotics. She was also seen in the ED several times over the past couple of weeks. She denies any fevers, chills, nausea or vomiting. No other symptoms. She says that over the last 2 days it is getting worse and her is not helping her with this. She says you would think he would help me but he just sits . EMS states that she had 2 daughters at her house that told EMS that she is going somewhere [facility] Patient's daughter and granddaughter showed up saying that patient started saying while they were at her house [facility] that she wanted to kill herself, she was fighting her . Patient is very forgetful and is taking her medicine multiple times a day. Patient's family is worried that she is a danger to herself and others. Patient's daughter says that she is accusing people of stealing her meds because they are trying to keep her safe and help her take her meds. Patient's family wants her to be kept overnight because they want her mental status sorted out. They also want her left leg infection helped. They are very concerned about this. They have used the leg infection as an excuse to get her to the ER [facility]. They are concerned about the leg but they are more concerned about the venous status and her being safe. Related Data Home Medications ?Medication ?Instructions ?Recorded ?Confirmed sennosides 8.6 mg tablet (senna) 8.6 mg PO BID PRN Constipation 02/26/19 06/25/25 azelastine 137 mcg (0.1 %) nasal 2 spray intranasal HS PRN 02/18/25 06/25/25 spray Previous Rx's ?Medication ?Instructions ?Recorded albuterol sulfate 90 mcg/actuation 2 inh inhalation Q6H PRN shortness 08/28/24 aerosol inhaler of breath or wheezing 90 days #8.5 grams fluticasone propionate 50 2 spray intranasal DAILY 90 days 08/28/24 mcg/actuation nasal #16 grams spray,suspension (Flonase Allergy Relief) ipratropium 0.5 mg-albuterol 3 mg 3 ml inhalation Q6H PRN shortness 08/28/24 (2.5 mg base)/3 mL nebulization of breath or wheezing #180 mL soln atorvastatin 20 mg tablet 20 mg PO HS Cholesterol #90 tabs 03/02/25 lidocaine 5 % topical cream 1 applic topical QID PRN pain #60 03/19/25 grams lisinopril 10 mg tablet 10 mg PO BID #180 tabs 03/19/25 hydroxyzine HCl 25 mg tablet 25 mg PO HS PRN Insomnia or 04/28/25 anxiety #30 tabs potassium chloride 20 mEq 20 meq PO DAILY #90 tabs 05/21/25 tablet,extended release(part/cryst) (Klor-Con M) levofloxacin 250 mg tablet 250 mg PO DAILY #7 tabs 06/11/25 doxycycline hyclate 100 mg capsule 100 mg PO BID #30 caps 06/18/25 furosemide 40 mg tablet (Lasix) 40 mg PO DAILY Swelling of legs 06/25/25 #30 tabs triamcinolone acetonide 0.1 % 1 applic topical TID Apply to rash 06/25/25 topical cream on right leg but avoid wound #453.6 grams clonazepam 1 mg tablet 1 mg PO BID PRN Nervousness #90 06/26/25 tabs levofloxacin 750 mg tablet 750 mg PO DAILY #7 tabs 07/06/25 mupirocin 2 % topical ointment 1 applic topical TID #44 grams 07/06/25 (Centany) Allergies Allergy/AdvReac Type Severity Reaction Status Date / Time adhesive tape Allergy Severe Hives Verified 07/06/25 15:10 chlorhexidine (From Allergy Severe RASH Verified 07/06/25 15:10 Hibiclens) Iodinated Contrast Media Allergy Intermediate Unknown Verified 07/06/25 15:10 (IODINATED CONTRAST MEDIA - allergy IV DYE) reaction povidone-iodine (From Allergy Intermediate I-RASH Verified 07/06/25 15:10 BETADINE) cephalexin Allergy Unknown Unknown Verified 07/06/25 15:10 allergy reaction bismuth tribromophenate Allergy Rash Verified 07/06/25 15:10 (From Xeroform) petrolatum,white (From Allergy Rash Verified 07/06/25 15:10 Xeroform) PFS <Kerry Ac (ED), MAINTENANCE MECHANIC M[employer]WR[employer] - Last Filed: 07/07/25 22:05> [facility] Disclaimer: The information contained in this section may have been updated after the patient was seen, as this information can be updated by other users. Medical History Rash and nonspecific skin eruption Cystocele with prolapse stage 3 Vulvovaginal pain Vulvar lesion Meniere disease CAD (coronary artery disease) Claudication Asthma Dyspnea on exertion Cataract bilateral Sleep apnea Migraine Anxiety Osteoarthritis History of diverticulitis Edema History of anemia Foot pain, bilateral Multiple pulmonary nodules Wheezing Hypertension Dizziness Surgical History Hx of spinal fusion 2003 3rd and 4th vertebrae History of bladder repair surgery History of left hip replacement Hx of right coronary artery stent placement Hx of shoulder surgery bilateal rotator cuff repair History of carpal tunnel surgery of right wrist History of appendectomy History of cataract surgery serena Hx of cardiac cath stent x1 H/O: hysterectomy Hx of cholecystectomy Family History Mother Rheumatoid aortitis Family/Other Heart attack Social History Smoking Status: Never smoker alcohol intake: never substance use type: denies use current occupational status: retired Travel in the last 8 weeks?: None housing: house current occupational exposures/hazards: No caffeine: Yes Have you lived/traveled outside US in past 30 days?: No Contact w/someone who lives/traveled outside US past 30 days?: No Exposure to someone with infectious disease in past 14 days?: No Do you have a fever (greater than 100.4 F or 38 C)?: No Have you tested positive for COVID-19?: No Exposed to someone with COVID-19 in past 14 days?: No Do you have a sore throat?: No Do you have a cough?: No Do you have any weakness?: No Do you have any diarrhea?: No Are you experiencing any unusual bleeding?: No Do you have any muscle aches/pain?: No Do you have any abdominal pain?: No Are you experiencing loss of taste or smell?: No Other Medical History Have you received the Flu Vaccine for this season: No Have you received the Pneumonia Vaccine: Yes <Kerry Ac (ED), MAINTENANCE MECH[employer]IC M[employer] - Last Filed: 07/07/25 22:05> ROS Obtained: Yes Systems reviewed as appropriate & no additional complaints except as documented Constitutional Constitutional: Reports as per HPI Physical Exam <Kerry Ac (ED), MAINTENANCE MECHANIC M[employer]WR[employer] - Last Filed: 07/07/25 22:05> General General appearance: alert Head Head exam: normocephalic Eye Eye exam: Present PERRL and EOMI ENT ENT exam: Present normal oropharynx and mucous membranes moist Neck Neck exam: Present full ROM and trachea midline Respiratory Respiratory exam: Present normal lung sounds bilaterally Cardiovascular Cardiovascular exam: Present regular rate, normal rhythm, normal heart sounds, +S1 and +S2 Abdominal Exam Abdominal exam: Present soft and normal bowel sounds Extremities Exam Extremities exam: Present tenderness, edema and other (Small wound with purulent drainage at the base of the wound. She does need wound) Neurological Exam Neurological exam: Present alert and oriented X3 Skin Skin exam: Present warm, dry and erythema Medical Decision Making <Krery Ac (ED), MAINTENANCE MECHANIC MILLWRIGHT - Last Filed: 07/07/25 22:05> Medical Records Screening: Per USPSTF and CDC recommendations, given the prevalence of disease in our region, it is our hospital?s policy to screen for HIV and viral Hepatitis for all patients aged 18 and over and those with ongoing risk factors. Agustin Inquiry Pt receiving controlled substance: No Agustin was queried for this patient: No Vital Signs: 07/07/25 21:10 07/07/25 21:16 07/07/25 21:35 Temperature 98.1 F 98.1 F Temperature Source Oral Oral Pulse Rate 87 91 H Pulse Rate [Right] 87 Respiratory Rate 18 18 Blood Pressure 137/64 Blood Pressure [Right Arm] 137/67 Blood Pressure Mean Blood Pressure Mean [Right Arm] 90 02 Sat by Pulse Oximetry 98 98 98 Oxygen Delivery Method Room Air Room Air Room Air 07/07/25 21:45 07/07/25 22:00 07/07/25 22:00 Temperature Temperature Source Pulse Rate 91 H 90 Pulse Rate [Right] Respiratory Rate Blood Pressure 122/85 Blood Pressure [Right Arm] Blood Pressure Mean 92 Blood Pressure Mean [Right Arm] 02 Sat by Pulse Oximetry 99 97 Oxygen Delivery Method Room Air Room Air 07/07/25 22:15 Temperature Temperature Source Pulse Rate 83 Pulse Rate [Right] Respiratory Rate Blood Pressure Blood Pressure [Right Arm] Blood Pressure Mean Blood Pressure Mean [Right Arm] 02 Sat by Pulse Oximetry 99 Oxygen Delivery Method Room Air Lab Data Lab Results 07/07/25 22:13: WBC 8.9, RBC 4.51, Hgb 14.4, Hct 43.1, MCV 95.6, MCH 31.9 H, MCHC 33.4, RDW 13.3, Plt Count 257, MPV 10.8 H, Neut % (Auto) 67.9, Lymph % (Auto) 14.2, [place] % (Auto) 8.3, Eos % (Auto) 8.7, Baso % (Auto) 0.6, Neut # (Auto) 6.0, Lymph # (Auto) 1.3, [place] # (Auto) 0.7, Eos # (Auto) 0.8 H, Baso # (Auto) 0.1, Sodium 140, Potassium 3.2 L, Chloride 101, Carbon Dioxide 30, Anion Gap 12.2, BUN 20 H, Creatinine 0.80, Estimated Creat Clear 69, Estimated GFR 69, Est GFR ( Amer) 84, Glucose 99, Calcium 8.8, Magnesium 2.1, Total Bilirubin 0.5, AST 32, ALT 21, Alkaline Phosphatase 91, Total Protein 6.7, Albumin 3.8, Globulin 2.9, Albumin/Globulin Ratio 1.3, Salicylates < 1.0 L, Acetaminophen < 10 L, Plasma/Serum Alcohol < 10 07/07/25 22:13 07/07/25 22:13 Orders (Tests/Meds): ED MEDICATIONS Generic Name Dose Route Start Last Admin Trade Name Freq PRN Reason Stop Dose Admin Miscellaneous 1 each 07/07/25 22:45 Vancomycin Consult Request NOTAPPLIC 08/06/25 22:44 CONSULT PHARMACY JAILYN Discontinued Medications Generic Name Dose Route Start Last Admin Trade Name Freq PRN Reason Stop Dose Admin Ketorolac Tromethamine 30 mg 07/07/25 21:34 07/07/25 22:04 Ketorolac 30mg/Ml Vial IV 07/07/25 21:35 30 mg ONCE ONE Administration ORDERS Category Date Time Status Acetaminophen Stat Lab 07/07/25 22:13 Completed CBC [Complete Blood Count Auto Diff] Stat Lab 07/07/25 22:13 Completed Comprehensive Metabolic Panel Stat Lab 07/07/25 22:13 Completed Drug Screen,Urine Stat Lab 07/07/25 22:01 Ordered ESR [Erythrocyte Sedimentation Rate] Stat Lab 07/07/25 22:13 Received Ethanol [Ethyl Alcohol] Stat Lab 07/07/25 22:13 Completed Magnesium Stat Lab 07/07/25 22:13 Completed Salicylate Stat Lab 07/07/25 22:13 Completed Wound Culture and Gram Stain Stat Micro 07/07/25 21:24 Received EKG Request [ECG Request] Stat Y 07/07/25 22:03 Ordered Medical Decision Narrative: patient is a 80-year-old female presenting to the emergency department for evaluation of left lower extremity with small wound. Patient is hemodynamically stable and nontoxic-appearing upon arrival, afebrile. Differential diagnosis includes cellulitis, wound infection, among others. Workup will be conducted with hematologic labs, x-ray was completed on 112. Wound culture will be obtained. Labs will be obtained. Patient will also get SI workup and psych clearance as well as medical clearance before being completely worked up for SI and geriatric psych. I discussed this with the family that we would work with patient and family to treat both the leg and the mental problems. Discussed this with Len Fernandes MD and discussed this with Harpal the hospitalist team. Dr. Fernandes will call the hospitalist team when the labs are all back. <Diego Fernandes MD - Last Filed: 07/07/25 22:42> Vital Signs: 07/07/25 21:10 07/07/25 21:16 07/07/25 21:35 Temperature 98.1 F 98.1 F Temperature Source Oral Oral Pulse Rate 87 91 H Pulse Rate [Right] 87 Respiratory Rate 18 18 Blood Pressure 137/64 Blood Pressure [Right Arm] 137/67 Blood Pressure Mean Blood Pressure Mean [Right Arm] 90 02 Sat by Pulse Oximetry 98 98 98 Oxygen Delivery Method Room Air Room Air Room Air 07/07/25 21:45 07/07/25 22:00 07/07/25 22:00 Temperature Temperature Source Pulse Rate 91 H 90 Pulse Rate [Right] Respiratory Rate Blood Pressure 122/85 Blood Pressure [Right Arm] Blood Pressure Mean 92 Blood Pressure Mean [Right Arm] 02 Sat by Pulse Oximetry 99 97 Oxygen Delivery Method Room Air Room Air 07/07/25 22:15 Temperature Temperature Source Pulse Rate 83 Pulse Rate [Right] Respiratory Rate Blood Pressure Blood Pressure [Right Arm] Blood Pressure Mean Blood Pressure Mean [Right Arm] 02 Sat by Pulse Oximetry 99 Oxygen Delivery Method Room Air Lab Data Lab Results 07/07/25 22:13: WBC 8.9, RBC 4.51, Hgb 14.4, Hct 43.1, MCV 95.6, MCH 31.9 H, MCHC 33.4, RDW 13.3, Plt Count 257, MPV 10.8 H, Neut % (Auto) 67.9, Lymph % (Auto) 14.2, [place] % (Auto) 8.3, Eos % (Auto) 8.7, Baso % (Auto) 0.6, Neut # (Auto) 6.0, Lymph # (Auto) 1.3, [place] # (Auto) 0.7, Eos # (Auto) 0.8 H, Baso # (Auto) 0.1, Sodium 140, Potassium 3.2 L, Chloride 101, Carbon Dioxide 30, Anion Gap 12.2, BUN 20 H, Creatinine 0.80, Estimated Creat Clear 69, Estimated GFR 69, Est GFR ( Amer) 84, Glucose 99, Calcium 8.8, Magnesium 2.1, Total Bilirubin 0.5, AST 32, ALT 21, Alkaline Phosphatase 91, Total Protein 6.7, Albumin 3.8, Globulin 2.9, Albumin/Globulin Ratio 1.3, Salicylates < 1.0 L, Acetaminophen < 10 L, Plasma/Serum Alcohol < 10 Orders (Tests/Meds): ED MEDICATIONS Generic Name Dose Route Start Last Admin Trade Name Freq PRN Reason Stop Dose Admin Miscellaneous 1 each 07/07/25 22:45 Vancomycin Consult Request NOTAPPLIC 08/06/25 22:44 CONSULT PHARMACY [facility] Discontinued Medications Generic Name Dose Route Start Last Admin Trade Name Freq PRN Reason Stop Dose Admin Ketorolac Tromethamine 30 mg 07/07/25 21:34 07/07/25 22:04 Ketorolac 30mg/Ml Vial IV 07/07/25 21:35 30 mg ONCE ONE Administration ORDERS Category Date Time Status Acetaminophen Stat Lab 07/07/25 22:13 Completed CBC [Complete Blood Count Auto Diff] Stat Lab 07/07/25 22:13 Completed Comprehensive Metabolic Panel Stat Lab 07/07/25 22:13 Completed Drug Screen,Urine Stat Lab 07/07/25 22:01 Ordered ESR [Erythrocyte Sedimentation Rate] Stat Lab 07/07/25 22:13 Received Ethanol [Ethyl Alcohol] Stat Lab 07/07/25 22:13 Completed Magnesium Stat Lab 07/07/25 22:13 Completed Salicylate Stat Lab 07/07/25 22:13 Completed Wound Culture and Gram Stain Stat Micro 07/07/25 21:24 Received EKG Request [ECG Request] Stat Y 07/07/25 22:03 Ordered Medical Decision Narrative: patient is a 80-year-old female presenting to the emergency department for evaluation of left lower extremity with small wound. Patient is hemodynamically stable and nontoxic-appearing upon arrival, afebrile. Differential diagnosis includes cellulitis, wound infection, among others. Workup will be conducted with hematologic labs, x-ray was completed on 1127. Wound culture will be obtained. Labs will be obtained. Patient will also get SI workup and psych clearance as well as medical clearance before being completely worked up for SI and geriatric psych. I discussed this with the family that we would work with patient and family to treat both the leg and the mental problems. Discussed this with Len Fernandes MD and discussed this with Harpal the hospitalist team. Dr. Fernandes will call the hospitalist team when the labs are all back. Diego Fernandes: Upon assumption of care patient is hemodynamically stable. Patient has lower extremity cellulitis with likely reactive edema. No signs or symptoms of a proximal DVT or PE empiric anticoagulation will be deferred we do not have formal duplex ultrasound at night and I think the benefits of anticoagulation outweigh the risks. Coingestants were added on and are negative. Patient never received Tylenol which was canceled by me given that she had passive suicidal ideation without a particular plan for the previous provider. Hematologic labs reviewed by me no significant leukocytosis no ALEXY, no critical electrolyte abnormality, mild hypokalemia which will be repleted orally. Creatinine acceptable will initiate vancomycin at this time. Patient denies suicidal ideation to nursing on repeat evaluation. Regardless patient will need to be admitted for her cellulitis and reactive edema to make sure things are headed in the right direction as well as wound care. The case was discussed with hospital medicine regarding management they will admit the patient to their service for continued evaluation at this time. Critical Care <Kerry Ac (ED), MAINTENANCE MECHANIC M[employer] - Last Filed: 07/07/25 22:05> Critical Care Time Critical Care Time: No
--- OUTSIDE RECORDS SUMMARY | 2025-07-07 21:19 | XMS_ITS | Encounter Summary ---
Author Organization [employer] ([place], [place], [place], [place], [place]) Address [address] [place] [address] Care Team Providers Care Courtroom Deputy Name Role Phone Unavailable Primary Care Provider Unavailabl e Encounter Details Date Type Department Care Team (Late st Contact Info) Description 04/02/2019 Transcribed Document [facility] [place] [facility] [place] [address] ProviderSb MD [address] [place] [address] Social History Tobacco Use Types Packs/Day [...] 04/02/2019 13:15 EDT by DAHIANA ROY, Care Management-System Controller Care Management Progress Note Discharge Arrangements : Patient Post-Acute Information Patient Name: SHARONDA HAYWARD Gender: Female : [birth year] Age: 74 Years No Post-Acute Placement(s) Listed No Post-Acute Service(s) Listed No [place] Referral(s) Listed Discharge Options Discussed with Patient : DME, Home Health DAHIANA ROY, Care Management-System Controller - 04/02/2019 13:15 EDT Narrative Progress Note Narrative Progress Note : today pt is unable to progress with mobility and is agreeable to rehab pending bed availability and insurance. pt has indicated that this has taken more out of her than she expected. she is having more pain and requires more assistance that she thought she would. DAHIANA ROY, Care Management-System Controller - 04/02/2019 13:15 EDT Electronically signed by Vinita Fountain Conversion Speech Language Pathologist Prn Cerner at 11/21/2022 4:12 PM CDT documented in this encounter Plan of Treatment Not on file documented as of this encounter Visit Diagnoses Not on filedocumented in this encounter
--- OUTSIDE RECORDS SUMMARY | 2025-07-07 21:19 | XMS_ITS | Encounter Summary ---
Author Organization [employer] ([place], [place], [place], [place], [place]) Address [address] [place] [address] Care Team Providers Care Meter Technician Name Role Phone Unavailable Primary Care Provider Unavailabl e Encounter Details Date Type Department Care Team (Late st Contact Info) Description 03/31/2019 Transcribed Document [facility] [place] Medicine [facility] [place] [address] ProviderSb MD [address] [place] [address] Social History Tobacco Use Types Packs/Day [...] POC. CHARLENE EWING OTR/Cherry 03/31/2019 13:59 EDT Medical Intern Goals, OT Other LTG Grid Goal #1 [...] CHARLENE EWING OTR/Cherry - 03/31/2019 13:59 EDT [place] OT Charges OT Selfcare/Hm Mgmt Ea 15 Min : 2 OT Eval Low Complexity : 1 CHARLENE EWING OTR/Cherry - 03/31/2019 13:59 EDT Electronically signed by Александр [facility] Conversion Produce Department Supervisor Cerner at 11/21/2022 4:00 PM CDT documented in this encounter Plan of Treatment Not on file documented as of this encounter Visit Diagnoses Not on filedocumented in this encounter
--- OUTSIDE RECORDS SUMMARY | 2025-07-07 21:19 | XMS_ITS | Encounter Summary ---
Author Organization [employer] ([place], [place], [place], [place], [place]) Address [address] [place] [address] Care Team Providers Care Director Business Intelligence Name Role Phone Unavailable Primary Care Provider Unavailabl e Encounter Details Date Type Department Care Team (Late st Contact Info) Description 03/31/2019 Transcribed Document [facility] [place] [facility] [place] [address] ProviderSb MD [facility] [place] [address] Social History Tobacco Use Types [...] Sb ProviderMD - 03/31/2019 2:40 PM CDT bobtail driver Form Entered On: 03/31/2019 14:40 EDT Performed On: 03/31/2019 14:40 EDT by GIOVANNI OCHOA RN-Utilization Review UM Additional Information UM Additional Comment : Request for inpt stay. Clinicals to follow. ICD 10: Z96.642 GIOVANNI OCHOA RN-Utilization Review - 03/31/2019 14:40 EDT Electronically signed by Vinita Fountain Conversion Distance Learning Technician Fernando at 11/21/2022 4:19 PM CDT documented in this encounter Plan of Treatment Not on file documented as of this encounter Visit Diagnoses Not on filedocumented in this encounter
--- OUTSIDE RECORDS SUMMARY | 2025-07-07 21:19 | XMS_ITS | Encounter Summary ---
Author Organization [employer] ([place], [place], [place], [place], [place]) Address [address] [place] [address] Care Team Providers Care Salt Maker Name Role Phone Unavailable Primary Care Provider Unavailabl e Encounter Details Date Type Department Care Team (Late st Contact Info) Description 04/03/2019 Transcribed Document [facility] [place] Family Medicine [address] [place] [address] ProviderSb MD [address] [place] [address] Social History Tobacco Use Types Packs/Day [...] On: 04/03/2019 7:36 EDT by ISAIAS BOLTON, Motor Brakeman-Nursing Event Note Event Date/Time : 04/03/2019 7:00 EDT Event Location : Assigned room Event Details : Nursing assessment additional narrative Description of Event : Informed Dr. Gamez that pt's refusal for CTA and that patient's HR has been in the 120's. No new orders received. ISAIAS BOLTON, Motor Brakeman-Nursing - 04/03/2019 7:36 EDT documented in this encounter Plan of Treatment Not on file documented as of this encounter Visit Diagnoses Not on filedocumented in this encounter
--- OUTSIDE RECORDS SUMMARY | 2025-07-07 21:19 | XMS_ITS | Encounter Summary ---
Author Organization [employer] ([place], [place], [place], [place], [place]) Address [address] [place] [address] Care Team Providers Care Airplane Flight Attendant Name Role Phone Unavailable Primary Care Provider Unavailabl e Encounter Details Date Type Department Care Team (Late st Contact Info) Description 04/02/2019 Transcribed Document [facility] [place] Family Medicine [address] [place] [address] ProviderSb MD [facility] [place] [address] Social History Tobacco Use Types [...] : Assigned room Description of Event : refinish technician called this nurse and said that pt refused the CTA of chest, stated that she is allergic to contrast. Dr. Gamez notified. Pt also refused to take her bowel regimen today. Roberta Lange, Rn - 04/02/2019 19:43 EDT Electronically signed by Александр [facility] Conversion Antique Furniture Restorer Cerner at 11/21/2022 4:07 PM CDT documented in this encounter Plan of Treatment Not on file documented as of this encounter Visit Diagnoses Not on filedocumented in this encounter
--- OUTSIDE RECORDS SUMMARY | 2025-07-07 21:19 | XMS_ITS | Encounter Summary ---
Author Organization [employer] ([place], [place], [place], [place], [place]) Address [address] [place] [address] Care Team Providers Care Oral Surgery Assistant Name Role Phone Unavailable Primary Care Provider Unavailabl e Encounter Details Date Type Department Care Team (Late st Contact Info) Description 03/31/2019 Transcribed Document [facility] [place] Medicine [facility] [place] [address] ProviderSb MD [address] [place] [address] Social History Tobacco Use Types Packs/Day [...]
--- OUTSIDE RECORDS SUMMARY | 2025-07-07 21:19 | XMS_ITS | Encounter Summary ---
Author Organization [employer] ([place], [place], [place], [place], [place]) Address [address] [place] [address] Care Team Providers Care Steeplechase Jockey Name Role Phone Unavailable Primary Care Provider Unavailabl e Encounter Details Date Type Department Care Team (Late st Contact Info) Description 03/31/2019 Transcribed Document [facility] [place] Family Medicine [facility] [place] [address] ProviderSb MD [facility] [place] [address] Social History Tobacco Use Types [...]
--- OUTSIDE RECORDS SUMMARY | 2025-07-07 21:19 | XMS_ITS | Encounter Summary ---
Author Organization [employer] ([place], [place], [place], [place], [place]) Address [address] [place] [address] Care Team Providers Care Fairing Man Name Role Phone Unavailable Primary Care Provider Unavailabl e Encounter Details Date Type Department Care Team (Late st Contact Info) Description 04/03/2019 Transcribed Document [facility] [place] [facility] [place] [address] ProviderSb MD [address] [place] [address] Social History Tobacco Use Types Packs/Day [...] On: 04/03/2019 18:17 EDT by Giuliana Munroe sand cutter Documentation Discharge Date/Time : 04/03/2019 15:45 EDT Patient Disposition, General : Discharge Discharge To : Home with ambulatory/outpatient follow-up Giuliana Munroe RN - 04/03/2019 18:17 EDT documented in this encounter Plan of Treatment Not on file documented as of this encounter Visit Diagnoses Not on filedocumented in this encounter
--- OUTSIDE RECORDS SUMMARY | 2025-07-07 21:19 | XMS_ITS | Encounter Summary ---
Author Organization [employer] ([place], [place], [place], [place], [place]) Address [address] [place] [address] Care Team Providers Care Cub Reporter Name Role Phone Unavailable Primary Care Provider Unavailabl e Encounter Details Date Type Department Care Team (Late st Contact Info) Description 04/02/2019 Transcribed Document [facility] [place] Family Medicine [facility] [place] [address] ProviderSb MD [address] [place] [address] Social History Tobacco Use Types Packs/Day [...] 04/02/2019 14:20 EDT by DAHIANA ROY, Care Management-Cheesemaker Care Management Progress Note Discharge Arrangements : Patient Post-Acute Information Patient Name: SHARONDA HAYWARD Gender: Female : [birth year] Age: 74 Years No Post-Acute Placement(s) Listed No Post-Acute Service(s) Listed No [place] Referral(s) Listed Discharge Options Discussed with Patient : DME, Home Health DAHIANA ROY, Care Management-Cheesemaker - 04/02/2019 14:20 EDT Narrative Progress Note Narrative Progress Note : [facility] has availability on SRU on pending precert DAHIANA ROY, Care Management-Cheesemaker - 04/02/2019 14:20 EDT Electronically signed by Александр [facility] Conversion Digital Forensics Examiner Cerner at 11/21/2022 4:03 PM CDT documented in this encounter Plan of Treatment Not on file documented as of this encounter Visit Diagnoses Not on filedocumented in this encounter
--- OUTSIDE RECORDS SUMMARY | 2025-07-07 21:19 | XMS_ITS | Encounter Summary ---
Author Organization [employer] ([place], [place], [place], [place], [place]) Address [address] [place] [address] Care Team Providers Care Electronic Equipment Trades Worker Name Role Phone Unavailable Primary Care Provider Unavailabl e Encounter Details Date Type Department Care Team (Late st Contact Info) Description 03/31/2019 Transcribed Document [facility] [place] [facility] [place] [address] ProviderSb MD [address] [place] [address] Social History Tobacco Use Types Packs/Day [...] Source : Measured Height Entry Format : [place] Height, Feet : 5 ft(Converted to: 152 cm, 60 Inch) Height, Inches : 1 Inch(Converted to: 0 ft 1 Inch, 2.54 cm) Clinical Height : 154.94 cm Weight Source : Standing scale Weight Entry Format : [place] Clinical Dosing Weight : 82.27 kg Weight, Pounds : 181 lb Body Surface Area (BSA) : 1.81 m2 Body Mass Index : 34.3 kg/m2 (HI) [place] Body Weight : 47 kg KAIN CRUZ [...] #2 Relationship : . Primary Language : Ukrainian Communication Barrier : None Objects to Sharing [...] Sleep Apnea Risk Level Score : 4 AKIN CRUZ RN - 03/31/2019 7:16 EDT Dorian [...] Scale Risk Level : 0-24 Low Risk [place] Fall Interventions : Assistive devices within reach, [...]
--- OUTSIDE RECORDS SUMMARY | 2025-07-07 21:19 | XMS_ITS ---
Care Plan - [facility], [facility] Created on: July 07, 2025 Samara Hayward : 1945 Sex: Female Author Organization [facility] Address [address] [place] [address] Phone Care Team Providers Care Living Specialist Name Role Phone JOHNSON GONCALVES DO Primary Care Provider [phone] Adrián Swenson MD Unavailable [phone] Rafi Roberts MD Unavailable [phone]
--- OUTSIDE RECORDS SUMMARY | 2025-07-07 21:19 | XMS_ITS | Encounter Summary ---
Author Organization [employer] ([place], [place], [place], [place], [place]) Address [address] [place] [address] Care Team Providers Care Reimbursement Manager Name Role Phone Unavailable Primary Care Provider Unavailabl e Encounter Details Date Type Department Care Team (Late st Contact Info) Description 03/31/2019 Transcribed Document [facility] [place] [address] ProviderSb MD [address] [place] [address] Social History Tobacco Use Types Packs/Day [...] LUIS WALLACE, PT - 03/31/2019 13:49 EDT Counseling Program Leader Goals Other PT LTG Grid Goal #1 [...]
--- OUTSIDE RECORDS SUMMARY | 2025-07-07 21:19 | XMS_ITS | Clinical Summary ---
Author Organization [facility] , [facility] Address [address] [facility] [place] [address] Phone Care Team Providers Care Watch Guard Gate Name Role Phone JOHNSON GONCALVES DO Primary Care Provider [phone] Adrián Swenson MD Unavailable [phone] Rafi Roberts MD Unavailable [phone] Reason for Visit and Chief Complaint BRACE FITTING Problems Includes: Problems addressed during this encounter and other active Problems All Visits Onset Date Resolved Date Provider Condition S tatus Lower Back Pain 01/07/2024 Constantine Garcia PA-C A ctive Last Documented On 4 1:00PM ; [facility], [facility] Joint Pain Hip Left 07/19/2016 Catracho Rubio MD Active Last Documented On 6 2:14PM ; [facility], [facility] Joint Pain Knee 10/14/2013 Catracho Rubio MD A ctive Last Documented On 4 2:09PM ; [facility], [facility] Plan of Treatment No Plan of Treatment [...] On 4 1:30PM By Radha Stafford ; [facility], [facility] Klor-Con M20 20 MEQ Oral Tablet Extended Release 01/06 Provider: Diagnosis: Last Documented On 4 1:31PM By Radha Stafford ; [facility] Phenazopyridine HCl 200 MG Oral Tablet 01/04/2024 Pr ovider: Diagnosis: Last Documented On 4 1:02PM By Radha Stafford ; [facility] Symbicort 160-4.5 MCG/ACT Inhalation Aerosol Provider: Diagnosis: Last Documented On 4 1:02PM By Radha Stafford ; [facility] Nitrofurantoin Monohyd Macro 100 MG Oral Capsule 12/18 Provider: Diagnosis: Last Documented On 4 1:02PM By Radha Stafford ; [facility] Premarin 0.625 MG/GM Vaginal Cream 12/14/2023 Provid er: Diagnosis: Last Documented On 4 1:02PM By Radha Stafford ; [facility] traMADol HCl 50 MG Oral Tablet 12/14/2023 Provider: MARIIA OLIVAS MD Diagnosis: Last Documented On 4 1:02PM By Radha Stafford ; [facility] Nystatin 022001 UNIT/GM External Ointment 12/03/2023 Provider: Diagnosis: Last Documented On 4 1:02PM By Radha Stafford ; [facility] Atorvastatin Calcium 20 MG Oral Tablet 11/21/2023 Pr ovider: MARIIA OLIVAS MD Diagnosis: Last Documented On 4 1:30PM By Radha Stafford ; [facility] Potassium Chloride Zaina ER 2 0 MEQ Oral Tablet Extended Release 09/08/2023 Provider: Kathleen Sanderson APRN Diagnosis: Last Documented On 4 1:02PM By Radha Stafford ; [facility] Furosemide 20 MG Oral Tablet 08/16/2023 Provider: Kathleen Sanderson APRN Diagnosis: Last Documented On 4 1:02PM By Radha Stafford ; [facility] Ipratropium-Albuterol 0.5-2.5 (3) MG/3ML Inhalat ion Solution 08/01/2023 Provider: Diagnosis: Last Documented On 4 1:31PM By Radha Stafford ; [facility], [facility] Medications Administered Includes: Administered Medications from [...] Last Documented On 4 9:47AM ; [facility], [facility] Keflex Allergy 10/14/2013 Active Last Documented On 4 9:47AM ; [facility], [facility] Betadine Allergy 10/14/2013 Active Last Documented On 4 9:47AM ; [facility], [facility] Bactroban Allergy 03/28/2019 Active Last Documented On 4 9:47AM ; [facility], [facility] Encounters Encounter Provider Location Date Check-In Time Check-Out Time Diagnosis BRACE FITTING Catracho Rubio MD [facility] 06/11/2019 2:19PM 11:59PM Insurance Includes: Active Insurance Policies Plan Name Member ID Group # Subscriber Relationship Effect etelvina Dates 1 - [employer] [id number] Samara Hayward Self 07/16/2019 - Unknown Clinical Notes Includes: Clinical Notes from this encounter No Clinical Notes Recorded
--- OUTSIDE RECORDS SUMMARY | 2025-07-07 21:19 | XMS_ITS | Encounter Summary ---
Author Organization [employer] ([place], [place], [place], [place], [place]) Address [address] [place] [address] Care Team Providers Care Helper/Driver Name Role Phone Unavailable Primary Care Provider Unavailabl e Encounter Details Date Type Department Care Team (Late st Contact Info) Description 03/31/2019 Transcribed Document [facility] [place] Medicine [facility] [place] [address] ProviderSb MD [address] [place] [address] Social History Tobacco Use Types Packs/Day [...] #2 Relationship : . Primary Language : Hebrew Communication Barrier : None Objects to Sharing [...] Scale Risk Level : 25-45 Medium Risk [place] Fall Interventions : Adequate lighting, Bed in [...] Source : Measured Height Entry Format : [place] Height, Feet : 5 ft(Converted to: 152 cm, 60 Inch) Height, Inches : 1 Inch(Converted to: 0 ft 1 Inch, 2.54 cm) Clinical Height : 154.94 cm Weight Source : Standing scale Weight Entry Format : [place] Clinical Dosing Weight : 82.27 kg Weight, Pounds : 181 lb Body Surface Area (BSA) : 1.81 m2 Body Mass Index : 34.3 kg/m2 (HI) [place] Body Weight : 47 kg Narda Conti [...]
--- OUTSIDE RECORDS SUMMARY | 2025-07-07 21:19 | XMS_ITS | Encounter Summary ---
Author Organization [employer] ([place], [place], [place], [place], [place]) Address [address] [place] [address] Care Team Providers Care Alarm Service Technician Name Role Phone Unavailable Primary Care Provider Unavailabl e Encounter Details Date Type Department Care Team (Late st Contact Info) Description 03/25/2019 Transcribed Document [facility] [place] Family Medicine [facility] [place] [address] ProviderSb MD [address] [place] [address] Social History Tobacco Use Types Packs/Day [...]
--- OUTSIDE RECORDS SUMMARY | 2025-07-07 21:19 | XMS_ITS | Encounter Summary ---
Author Organization [employer] ([place], [place], [place], [place], [place]) Address [address] [place] [address] Care Team Providers Care Medical Scientific Liaison Name Role Phone Unavailable Primary Care Provider Unavailabl e Encounter Details Date Type Department Care Team (Late st Contact Info) Description 03/31/2019 Transcribed Document [facility] [place] [facility] [place] [address] ProviderSb MD [address] [place] [address] Social History Tobacco Use Types Packs/Day [...] 12:28 EDT Assisted by, PT : assistant plant control operator (TRUSS MAKER) KALEY HILLMAN PTA - 04/01/2019 11:53 EDT [...] KALEY HILLMAN PTA - 04/01/2019 11:53 EDT Detention Goals Other PT LTG Grid Goal #1 [...] goal Initial goal Progressing, continue KALEY HILLMAN, [facility] - 04/01/2019 11:53 EDT KALEY HILLMAN, [facility] - 04/01/2019 11:53 EDT KALEY HILLMAN, [facility] - 04/01/2019 11:53 EDT KALEY HILLMAN, [facility] - 04/01/2019 11:53 EDT Goal #5 Other : Pt will be able to transfer sit<>stand consistently with min assist x1 to ease caregiver burden Date to Meet : 04/04/2019 EDT Goal Status : Progressing, continue KALEY HILLMAN, [facility] - 04/01/2019 11:53 EDT Treatment [...] the text rendition version of the form. [place] PT Charges PT Therap. Exercise 15 min : 1 Gait Training Each 15 Min : 2 KALEY HILLMAN, SHAHRZAD - 04/01/2019 11:53 EDT documented in this encounter Plan of Treatment Not on file documented as of this encounter Visit Diagnoses Not on filedocumented in this encounter
--- OUTSIDE RECORDS SUMMARY | 2025-07-07 21:19 | XMS_ITS | Encounter Summary ---
Author Organization [employer] ([place], [place], [place], [place], [place]) Address [address] [place] [address] Care Team Providers Care Ground Helper Street Railway Name Role Phone Unavailable Primary Care Provider Unavailabl e Encounter Details Date Type Department Care Team (Late st Contact Info) Description 04/02/2019 Transcribed Document [facility] [place] [facility] [place] [address] ProviderSb MD [facility] [place] [address] Social History Tobacco Use Types [...] Historical ProviderMD - 04/02/2019 2:00 AM CDT General Milling Superintendent Details Entered On: 04/02/2019 3:43 EDT Performed [...] signed by Vinita Fountain Conversion Director Of [facility] Fernando at 11/21/2022 4:11 PM CDT documented in this encounter Plan of Treatment Not on file documented as of this encounter Visit Diagnoses Not on filedocumented in this encounter
--- OUTSIDE RECORDS SUMMARY | 2025-07-07 21:19 | XMS_ITS | Encounter Summary ---
Author Organization [employer] ([place], [place], [place], [place], [place]) Address [address] [place] [address] Care Team Providers Care Rotary Kiln Operator Name Role Phone Unavailable Primary Care Provider Unavailabl e Encounter Details Date Type Department Care Team (Late st Contact Info) Description 04/03/2019 Transcribed Document [place] Family Medicine [address] [place] [address] ProviderSb MD [facility] [place] [address] Social History Tobacco Use Types [...] On: 04/03/2019 5:00 EDT by ISAIAS BOLTON, Underwater Hunter Trapper-Nursing Chart Check Powerplans Initiated/Discontinued as Appropriate : Yes All Active Orders Reviewed : Yes ISAIAS BOLTON, Underwater Hunter Trapper-Nursing - 04/03/2019 6:45 EDT Electronically signed by Vinita Fountain Conversion Reactor Fueling Supervisor Fernando at 11/21/2022 4:08 PM CDT documented in this encounter Plan of Treatment Not on file documented as of this encounter Visit Diagnoses Not on filedocumented in this encounter
--- OUTSIDE RECORDS SUMMARY | 2025-07-07 21:19 | XMS_ITS | Encounter Summary ---
Author Organization [employer] ([place], [place], [place], [place], [place]) Address [address] [place] [address] Care Team Providers Care Director Of Graduate Admissions Name Role Phone Unavailable Primary Care Provider Unavailabl e Encounter Details Date Type Department Care Team (Late st Contact Info) Description 03/31/2019 Transcribed Document [facility] [place] Medicine [facility] [place] [address] ProviderSb MD [address] [place] [address] Social History Tobacco Use Types Packs/Day [...] mL inj 40 mg 0.4 mL, SubCutaneous, [id number] folic acid 0.4 mg, Oral, Daily linaclotide [...] Oral, Daily phenol 1.4% throat spray 5 [place], Oral, Q2H promethazine 25 mg tab 12.5 [...] swelling, No deformity, Normal gait. Integumentary: Warm, [place], Intact, No pallor, No rash, WOUND STABLE. [...] then you may give Tylenol 650 mg PO/IN x 1. If no response in 2 [...]
--- OUTSIDE RECORDS SUMMARY | 2025-07-07 21:19 | XMS_ITS | Encounter Summary ---
Author Organization [employer] ([place], [place], [place], [place], [place]) Address [address] [place] [address] Care Team Providers Care Rail Assembler Name Role Phone Unavailable Primary Care Provider Unavailabl e Encounter Details Date Type Department Care Team (Late st Contact Info) Description 04/03/2019 Transcribed Document [facility] [place] [place] [facility] [place] [address] ProviderSb MD [address] [place] [address] Social History Tobacco Use Types Packs/Day [...]
--- OUTSIDE RECORDS SUMMARY | 2025-07-07 21:19 | XMS_ITS | Encounter Summary ---
Author Organization [employer] ([place], [place], [place], [place], [place]) Address [address] [place] [address] Care Team Providers Care Process Improvement Specialist Name Role Phone Unavailable Primary Care Provider Unavailabl e Encounter Details Date Type Department Care Team (Late st Contact Info) Description 04/03/2019 Transcribed Document [facility] [place] Medicine [facility] [address] ProviderSb MD [facility] [place], [place] [id number] Social History Tobacco Use Types Packs/Day Years Used Date Smoking Tobacco: Never Assessed Comments Unknown Sex and Gender Information Value Date Recorded Sex Assigned at Not on file Legal Sex Female 1:50 PM CDT Gender Identity Not on file Sexual Orientation Not on file documented as of this encounter Miscellaneous Notes * Cerner Conversion Note - Historical ProviderMD - 04/03/2019 2:00 AM CDT Hospice Case Manager Details Entered On: 04/03/2019 6:44 EDT Performed On: 04/03/2019 2:00 EDT by ISAIAS BOLTON, Group Captain-Nursing Order Details Transport Mode Order Detail : Wheelchair Isolation Precautions Order Detail : Standard Precautions Order Detail : N/A IV Order Detail : 1 Oxygen Order Detail : 0 Nurse Collect Order Detail : 0 Lift/Transfer : Moderate assist Central Line Order Detail : No Room Service : Not Appropriate Arterial Line : No ISAIAS BOLTON, Group Captain-Nursing - 04/03/2019 6:44 EDT documented in this encounter Plan of Treatment Not on file documented as of this encounter Visit Diagnoses Not on filedocumented in this encounter
--- OUTSIDE RECORDS SUMMARY | 2025-07-07 21:19 | XMS_ITS | Encounter Summary ---
Author Organization [employer] ([place], [place], [place], [place], [place]) Address [address] [place] [address] Care Team Providers Care Industrial Hire Sales Assistant Name Role Phone Unavailable Primary Care Provider Unavailabl e Encounter Details Date Type Department Care Team (Late st Contact Info) Description 03/31/2019 Transcribed Document [facility] [place] Family Medicine [facility] [place] [address] ProviderSb MD [address] [place] [address] Social History Tobacco Use Types Packs/Day [...] 03/31/2019 04:43 Assisted by, OT : Nursing, pediatric assistant (TWILL CUTTER) Personal Devices : Personal Devices No Devices [...] reach, Other: left seated in w/c with TWILL CUTTER and family RN/PCT Informed Comment : RN [...] NYASIA CARTER OTR/L - 04/01/2019 11:00 EDT Autocad Electrical Designer Goals, OT Other LTG Grid Goal #1 [...] : pt seen for split session from [id number] (29 minutes ) and [id number] (10 minutes) pt c/o pain and feeling weak throughout tx. assist from RN and TWILL CUTTER during tx. pt educated on ADL technique [...] with cues for technique. with assist of TWILL CUTTER pt completes functional mobility chair follow to hallway min assist x1 and CGA of another for safety as pt continues to c/o weakness. pt left with TWILL CUTTER seated in hallway in w/c. education on [...]
--- OUTSIDE RECORDS SUMMARY | 2025-07-07 21:19 | XMS_ITS | Encounter Summary ---
Author Organization [employer] ([place], [place], [place], [place], [place]) Address [address] [place] [address] Care Team Providers Care Pattern Vault Clerk Name Role Phone Unavailable Primary Care Provider Unavailabl e Encounter Details Date Type Department Care Team (Late st Contact Info) Description 04/02/2019 Transcribed Document [facility] [place] [address] ProviderSb MD [address] [place] [address] Social History Tobacco Use Types Packs/Day [...]
--- OUTSIDE RECORDS SUMMARY | 2025-07-07 21:19 | XMS_ITS | Encounter Summary ---
Author Organization [employer] ([place], [place], [place], [place], [place]) Address [address] [place] [address] Care Team Providers Care Major League Baseball Player Name Role Phone Unavailable Primary Care Provider Unavailabl e Encounter Details Date Type Department Care Team (Late st Contact Info) Description 04/03/2019 Transcribed Document [facility] [place] [facility] [place] [address] ProviderSb MD [address] [place] [address] Social History Tobacco Use Types Packs/Day [...] On: 04/03/2019 15:08 EDT by Giuliana Munroe, stitcher set up operator automatic Documentation Patient Disposition, General : Discharge Discharge To : Home with ambulatory/outpatient follow-up Giuliana Munroe RN - 04/03/2019 15:08 EDT Electronically signed by Vinita Fountain Conversion Ammonium Hydroxide Operator Charlesner at 11/21/2022 4:01 PM CDT documented in this encounter Plan of Treatment Not on file documented as of this encounter Visit Diagnoses Not on filedocumented in this encounter
--- OUTSIDE RECORDS SUMMARY | 2025-07-07 21:19 | XMS_ITS | Encounter Summary ---
Author Organization [employer] ([place], [place], [place], [place], [place]) Address [address] [place] [address] Care Team Providers Care Car Audio Installer Name Role Phone Unavailable Primary Care Provider Unavailabl e Encounter Details Date Type Department Care Team (Late st Contact Info) Description 03/31/2019 Transcribed Document [facility] [place] [facility] [place] [address] ProviderSb MD [address] [place] [address] Social History Tobacco Use Types Packs/Day [...] GEORGE D.O.B./Sex: 1945 Female Med Rec #: [id number] Physician: YAMILETH OMER MD-ORT Financial #: [id number] Pt. Type: I Room/Bed: [facility] Admit/Disch: 03/31/19 04:43:00 - Institution: [facility] PreOp Case Times Entry 1 In Preop 03/31/19 05:35:00 Ready for Holding n/a Room Patient Ready for 03/31/19 07:23:00 Surgery Patient Out of Preop 03/31/19 07:28:00 Patient Out of n/a Holding Room Last Modified By: RADHA CALIX 03/31/19 08:44:37 SJ PreOp Case Times Audit 03/31/19 08:44:37 Graphics Intern: [email or web address] Modifier: [email or web address] <+> 1 Patient Out of Preop 03/31/19 07:27:58 Graphics Intern: [email or web address] Modifier: [email or web address] <+> 1 Patient Ready for Surgery Finalized By: RADHA CALIX Document Signatures Signed By: RADHA CALIX 03/31/19 08:44 Electronically signed by Александ[facility] Conversion Highway Inspector Cerner at 11/21/2022 4:07 PM CDT documented in this encounter Plan of Treatment Not on file documented as of this encounter Visit Diagnoses Not on filedocumented in this encounter
--- OUTSIDE RECORDS SUMMARY | 2025-07-07 21:19 | XMS_ITS | Encounter Summary ---
Author Organization [employer] ([place], [place], [place], [place], [place]) Address [address] [place] [address] Care Team Providers Care Foundation Drill Operator Helper Name Role Phone Unavailable Primary Care Provider Unavailabl e Encounter Details Date Type Department Care Team (Late st Contact Info) Description 04/03/2019 Transcribed Document [facility] [place] Family Medicine [facility] [place] [address] ProviderSb MD [address] [place] [address] Social History Tobacco Use Types Packs/Day [...] she will be discharged to a rehabilitation facility/detention facility. Today patient is awake alert cooperative [...] mL inj 40 mg 0.4 mL, SubCutaneous, [id number] folic acid 1 mg tab 1 mg [...] Oral, Daily phenol 1.4% throat spray 5 [place], Oral, Q2H promethazine 25 mg tab 12.5 [...] Condition: Stable. Radiology Results (Last 48 hours) [id number] -- 03/31/2019 04:43 CR Chest 1 Vw [...] Refill(s). Impression and Plan twt 40 mn Electronically signed by Vinita Fountain Conversion Commercial Lines Sales Executive Cerner at 11/21/2022 4:12 PM CDT documented in this encounter Plan of Treatment Not on file documented as of this encounter Visit Diagnoses Not on filedocumented in this encounter
--- OUTSIDE RECORDS SUMMARY | 2025-07-07 21:19 | XMS_ITS | Encounter Summary ---
Author Organization [employer] ([place], [place], [place], [place], [place]) Address [address] [place] [address] Care Team Providers Care Label Stitcher Name Role Phone Unavailable Primary Care Provider Unavailabl e Encounter Details Date Type Department Care Team (Late st Contact Info) Description 04/03/2019 Transcribed Document [facility] [place] [facility] [place] [address] ProviderSb MD [address] [place] [address] Social History Tobacco Use Types Packs/Day [...] Man MD - 04/03/2019 3:13 PM CDT [place] [id number] ARIEL SHARONDA S :1945 Visit Time:03/31/2019 Your [...] ? Using the bathroom. ? Using household percussion tuner or poisonous chemicals. ? Touching or taking [...] 07/05/2009 Document Revised: 12/28/2016 Document Reviewed: 12/18/2014 [employer] Patient Education ?? 2018 [employer] Fall Prevention in the Home, Adult [...] Keep items that you use often in fgte-zi-tqivc places. Lower the shelves around your home [...] the way. ??? Do not use floor tamazight or wax that makes floors slippery. If [...] Control and Prevention, STEADI: https://cdc.gov ??? National [place] on Aging: https://zw0ordz.joe.nih.gov Contact a doctor if: ??? You are [...] 05/19/2010 Document Revised: 03/07/2018 Document Reviewed: 03/07/2018 [employer] Patient Education ?? 2019 [employer] What to expect after the Procedure: [...] Barley. Bulgur wheat. Millet. Bran muffins. Popcorn. [place] wafer crackers. Vegetables Sweet potatoes. Spinach. Kale. Artichokes. Cabbage. Broccoli. Green peas. Carrots. Squash. Fruits Berries. Pears. Apples. Oranges. Avocados. Prunes and raisins. Dried figs. Meats and Other Protein Sources [place], kidney, mariscal, and soy beans. Split peas. [...] davey has 11 g of protein. ??? Gallion seeds ??? 1 oz has 5.5 g [...] floor. ??? Place frequently used items in zftg-ax-afhhp places ??? Keep electrical cables out of [...] ??? Using the bathroom. ??? Using household percussion tuner or toxic chemicals. ??? Touching or taking [...] may report side effects to FDA at 5-762-ANE-8801. What other drugs will affect acetaminophen and [...] affect acetaminophen and oxycodone, including prescription and fpaj-aih-hixqrtc medicines, vitamins, and herbal products. Not all [...] to ensure that the information provided by [employer] ('[employer]') is accurate, up-to-date, and complete, but no guarantee is made to that effect. Drug information contained herein may be time sensitive. [employer] information has been compiled for use by healthcare practitioners and consumers in the [place] and therefore [employer] does not warrant that uses outside of the [place] are appropriate, unless specifically indicated otherwise. [employer] drug information does not endorse drugs, diagnose patients or recommend therapy. [employer] drug information is an informational resource designed [...] effective or appropriate for any given patient. [employer] does not assume any responsibility for any aspect of healthcare administered with the aid of information [employer] provides. The information contained herein is not intended to cover all possible uses, directions, precautions, warnings, drug interactions, allergic reactions, or adverse effects. If you have questions about the drugs you are taking, check with your doctor, nurse or pharmacist. Copyright 2616-7280 [employer]. Version: 18.02. Revision Date: 07/03/2018. Emergency Awareness [...] Assistance with quitting is available by contacting 5-638-TQELNOW. This is a free resource providing counseling, [...] range between ( 1.0 and 7.0 ) [place] #: 0.90 K/uL -- Normal range between ( 0.24 and 0.82 ) Eos #: 0.22 K/uL -- Normal range between ( 0.04 and 0.54 ) [place] %: 8.6 % -- Normal range between [...] ) Urine Bilirubin Dipstick: Negative Urine Specific [place]: 1.014 -- Normal range between ( 1.005 and 1.030 ) Urine Type.: U iMOSPHEREch General Chemistry 04/01/19 03:11:00 Creatinine Level: 0.82 [...] was given the opportunity to ask questions. Patient/Wire Preparation Machine Tender Name: Patient/Wire Preparation Machine Tender Signature: Relationship to Patient: Clinician/Hospital Wire Preparation Machine Tender Signature: Date: documented in this encounter Plan of Treatment Not on file documented as of this encounter Visit Diagnoses Not on filedocumented in this encounter
--- OUTSIDE RECORDS SUMMARY | 2025-07-07 21:19 | XMS_ITS | Encounter Summary ---
Author Organization [employer] ([place], [place], [place], [place], [place]) Address [address] [place] [address] Care Team Providers Care Microwave Radio Technician Name Role Phone Unavailable Primary Care Provider Unavailabl e Encounter Details Date Type Department Care Team (Late st Contact Info) Description 03/31/[address] [facility] [place] [facility] [place] [address] ProviderSb MD [address] [place] [address] Social History Tobacco Use Types Packs/Day [...] GEORGE D.O.B./Sex: 1945 Female Med Rec #: [id number] Physician: YAMILETH OMER MD-ORT Financial #: [id number] Pt. Type: I Room/Bed: [facility] Admit/Disch: 03/31/19 04:43:00 - Institution: [facility] Main OR PACU Case Times Entry 1 In PACU I 03/31/19 10:52:00 Ready for PACU 03/31/19 12:42:00 Discharge Discharge from PACU 03/31/19 12:42:00 I Last Modified By: Felisha Gastelum Rn Patient Care Bedside 03/31/19 12:49:42 [facility] Main OR PACU Case Times Audit 03/31/19 12:49:42 Documentation Analyst: JEANETH Modifier: JEANETH 1 <*> Ready for PACU Discharge 03/31/19 12:49:00 1 <*> Discharge from PACU I 03/31/19 12:49:00 03/31/19 12:49:26 Documentation Analyst: JEANETH Modifier: JEANETH <+> 1 Ready for PACU Discharge <+> 1 Discharge from PACU I Finalized By: Felisha Gastelum Rn Patient Care Bedside Document Signatures Signed By: Felisha Gastelum Rn Patient Care Bedside 03/31/19 12:49 Electronically signed by Isaak Fountain Conversion Industrial Conveyor Belt Repairer Cerner at 11/21/2022 4:09 PM CDT documented in this encounter Plan of Treatment Not on file documented as of this encounter Visit Diagnoses Not on filedocumented in this encounter
--- OUTSIDE RECORDS SUMMARY | 2025-07-07 21:19 | XMS_ITS | Encounter Summary ---
Author Organization [employer] ([place], [place], [place], [place], [place]) Address [address] [place] [address] Care Team Providers Care Cytotechnologist/Histotechnologist Name Role Phone Unavailable Primary Care Provider Unavailabl e Encounter Details Date Type Department Care Team (Late st Contact Info) Description 04/03/2019 Transcribed Document [facility] [place] [facility] [place] [address] ProviderSb MD [address] [place] [address] Social History Tobacco Use Types Packs/Day [...] HEP A/AROM x 20 reps D/C to [facility] for continued care and rehab on 04/03/19. LEEANN BALL, PT - 04/03/2019 16:25 EDT Golf Course Patroller Goals Other PT LTG Grid Goal #1 [...] EDT Electronically signed by Vinita Fountain Conversion Vice President Sales And Marketing Fernando at 11/21/2022 4:00 PM CDT documented in this encounter Plan of Treatment Not on file documented as of this encounter Visit Diagnoses Not on filedocumented in this encounter
--- OUTSIDE RECORDS SUMMARY | 2025-07-07 21:19 | XMS_ITS | Encounter Summary ---
Author Organization [employer] ([place], [place], [place], [place], [place]) Address [address] [place] [address] Care Team Providers Care Prototype Technician Name Role Phone Unavailable Primary Care Provider Lisset e Encounter Details Date Type Department Care Team (Late st Contact Info) Description 03/31/2019 Transcribed Document [facility] [place] [facility] [place] [address] ProviderSb MD [address] [place] [address] Social History Tobacco Use Types Packs/Day [...] SAMARAASHVIN AlvaradoO.B./Sex: 1945 Female Med Rec #: [id number] Physician: YAMILETH OMER MD-ORT Financial #: [id number] Pt. Type: I Room/Bed: [facility] Admit/Disch: 03/31/19 04:43:00 - Institution: [facility] Case Attendance Entry 1 Entry 2 Entry 3 Case Attendee YAMILETH OMER MD-ORT Davis, Aleitha E, JEWELL HART Role Performed Surgeon/Proceduralist, Public Works Supervisor, First Scrub, Second First Time In 03/31/19 [...] 5 Entry 6 Case Attendee Topher Dukes, Guest Request Runner MIYA HERNANDEZ FA REYNOLDS, SHIRLEY Role Performed Scrub, Freight Dispatcher, First Brake Coupler Dinkey Time In 03/31/19 07:37:00 03/31/19 07:37:00 03/31/19 [...] ATTENDEE #1 OTHER, ATTENDEE #2 Role Performed NOTCHED BLADE LOADER/Nurse Dependency Counselor Research Soil Scientist, Ancillary Vendor Time In 03/31/19 07:37:00 03/31/19 [...] Case Attendee KAIN SLAUGHTER, CARMITA Role Performed Public Works Supervisor, Second Time In 03/31/19 09:15:00 Time Out 03/31/19 09:30:00 Procedure Hip Total Anterior Approach Other Attendee Superficial Wound Closed By: Last Modified By: Liliana Royal RN 03/31/19 10:56:51 [facility] IntraOp Case Attendance Audit 03/31/19 10:56:51 Net Front End Developer: ALEITHADAVIS Modifier: ALEITHADAVIS 1 <+> Time Out [...] Procedure Hip Total Anterior Approach 03/31/19 10:13:35 Net Front End Developer: ALEITHADAVIS Modifier: ALEITHADAVIS 3 <+> Time Out 3 <*> Procedure Hip Total Anterior Approach 03/31/19 10:00:12 Net Front End Developer: ALEITHADAVIS Modifier: ALEITHADAVIS 10 <+> Time Out 10 <*> Procedure Hip Total Anterior Approach 03/31/19 09:17:35 Net Front End Developer: ALEITHADAVIS Modifier: ALEITHADAVIS <+> 10 Case Attendee <+> 10 Role Performed <+> 10 Time In <+> 10 Procedure 03/31/19 08:26:59 Net Front End Developer: ALEITHADAVIS Modifier: ALEITHADAVIS <+> 1 Procedure 2 [...] Procedure Hip Total Anterior Approach 03/31/19 08:22:52 Net Front End Developer: ALEITHADAVIS Modifier: ALEITHADAVIS <+> 2 Case Attendee [...] [facility] IntraOp Case Times Audit 03/31/19 10:56:50 Net Front End Developer: ALEITHADAVIS Modifier: ALEITHADAVIS <+> 1 Out Room Time <+> 1 Stop Time 03/31/19 10:49:20 Net Front End Developer: ALEITHADAVIS Modifier: ALEITHADAVIS <+> 1 Stop Time 03/31/19 08:21:21 Net Front End Developer: ALEITHADAVIS Modifier: ALEITHADAVIS <+> 1 Start Time [...] Performed By Count Performed By Topher Dukes Guest Request Runner Topher Dukes Scrub Tech (Scrub) Count Performed By Liliana Royal RN Davis, Aleitha E, RN (RN) Last Modified By: Liliana Royal RN Davis, Aleitha E, RN 03/31/19 08:24:27 03/31/19 10:13:45 [facility] IntraOp Counts Verification Audit 03/31/19 10:13:45 Net Front End Developer: ALEITHADAVIS Modifier: ALEITHADAVIS <+> 2 Procedure <+> [...] [facility] IntraOp Counts Final Audit 03/31/19 10:13:50 Net Front End Developer: ALEITHADAVIS Modifier: ALEITHADAVIS 1 <*> Procedure Hip Total Anterior Approach 1 <+> Count Performed By (Scrub) [facility] IntraOp Cultures and Spec Summary Entry 1 Cultrures and Specimens Specimen Ordered: Yes Test(s) Routine/Path-Lab Requested/Final Disposition Last Modified By: Liliana Royal RN 03/31/19 08:23:36 S[facility] IntraOp Delays Entry 1 Delay Reason Other Duration 7 Minute(s) Comment PATIENT REQUESTED BUTTONHOLE TACKER WHEN OR NURSE ENTERED BAY Last Modified [...] RN 03/31/19 08:24:48 S[facility] IntraOp General Case Casino Investigator 1 Case Information OR OR 02 SJE [...] SZ C STEM FEM POR Identification OSSEO [id number] [id number] Description Implant Quantity 1 1 1 Implant Site LEFT HIP LEFT HIP LEFT HIP Implant Identification Model Number Implant Identification Serial Number Implant [id number] Identification Lot Number Implant Biomet Biomet Biomet Identification Multiple Sclerosis Nurse Name: Implant [id number] Identification Catalog Number Implant Size Implant Has an Yes Yes Yes Expiration Date Implant Expiration 11/07/28 06/25/23 08/05/28 Date Wasted Radioactive Material Time Implanted Tissue Implant Continue for Tissue Implant Documentation Tissue Identification Number Graft Prep Per Multiple Sclerosis Nurse Instructions: Tissue Preparation Method: Reconstitution Solution: Reconstitution Solution Lot Number Reconstitution Solution Expiration Date: Thawing Solution Thawing Solution Lot Number Thawing Solution Expiration Date Preparation Materials, Other Preparation Materials, Other Lot Number Preparation Materials, Other Expiration Date Tissue Prepared/Processed By Multiple Sclerosis Nurse Paperwork Completed Implant Type Comment Last Modified By: Liliana Royal RN Davis, Aleitha E, RN Davis, Aleitha E, RN 03/31/19 09:15:28 03/31/19 09:18:11 03/31/19 10:09:08 Entry 4 Entry 5 Type Implant (Synthetic) Implant (Synthetic) Implant Log Implant Type Hardware Hardware Tissue Implant Type Implant ADAPTER TAPER BIOLOX HEAD CERAMIC BIOLX 32MM Identification OPTION -[id number] Description Implant Quantity 1 1 Implant Site LEFT HIP left hip Implant Identification Model Number Implant Identification Serial Number Implant [id number] Identification Lot Number Implant Biomet Biomet Identification Multiple Sclerosis Nurse Name: Implant [id number] Identification Catalog Number Implant Size Implant Has an Yes Yes Expiration Date Implant Expiration 07/05/28 11/07/28 Date Wasted Radioactive Material Time Implanted Tissue Implant Continue for Tissue Implant Documentation Tissue Identification Number Graft Prep Per Multiple Sclerosis Nurse Instructions: Tissue Preparation Method: Reconstitution Solution: Reconstitution Solution Lot Number Reconstitution Solution Expiration Date: Thawing Solution Thawing Solution Lot Number Thawing Solution Expiration Date Preparation Materials, Other Preparation Materials, Other Lot Number Preparation Materials, Other Expiration Date Tissue Prepared/Processed By Multiple Sclerosis Nurse Paperwork Completed Implant Type Comment Last Modified By: Liliana Royal RN Davis, Aleitha E, RN 03/31/19 10:09:08 03/31/19 10:09:45 S[facility] IntraOp Implant Log Audit 03/31/19 10:09:45 Net Front End Developer: JIM Modifier: ALEITHADAVIS <+> 5 Implant Identification Description <+> 5 Implant Identification Lot Number <+> 5 Implant Identification Multiple Sclerosis Nurse Name: <+> 5 Implant Expiration Date <+> 5 Implant Site <+> 5 Implant Quantity <+> 5 Implant Identification Catalog Number <+> 5 Implant Type <+> 5 Implant Has an Expiration Date <+> 5 Type 03/31/19 10:09:08 Net Front End Developer: ALEITHADAVIS Modifier: ALEITHADAVIS <+> 3 Implant Identification Description <+> 3 Implant Identification Lot Number <+> 3 Implant Identification Multiple Sclerosis Nurse Name: <+> 3 Implant Expiration Date <+> 3 Implant Identification Catalog Number <+> 4 Implant Identification Description <+> 4 Implant Identification Lot Number <+> 4 Implant Identification Multiple Sclerosis Nurse Name: <+> 4 Implant Expiration Date <+> 4 Implant Identification Catalog Number 03/31/19 09:18:11 Net Front End Developer: ALEITHADAVIS Modifier: ALEITHADAVIS <+> 2 Implant Identification Description <+> 2 Implant Identification Lot Number <+> 2 Implant Identification Multiple Sclerosis Nurse Name: <+> 2 Implant Expiration Date <+> 2 Implant Identification Catalog Number 03/31/19 09:15:28 Net Front End Developer: ALEITHADAVIS Modifier: ALEITHADAVIS <+> 1 Implant Identification Description <+> 1 Implant Identification Lot Number <+> 1 Implant Identification Multiple Sclerosis Nurse Name: <+> 1 Implant Expiration Date <+> 1 Implant Identification Catalog Number [facility] IntraOp Intraoperative Assessment Entry 1 Handoff Method [...] heparin 1000units/ml PB irrigation 1000ml 10ml - [id number] solution - [id number] Combo Med List Time Administered Route of CELLSAVER IRRIGANT Administration Dose Dose 03255 1000 Unit of Measure units ml Volume [...] related to extraneous objects Last Modified By: Lilaina Royal RN 03/31/19 10:49:25 S[facility] Intra Op Sign Out Audit 03/31/19 10:49:25 Net Front End Developer: CHRISTYADAVIS Modifier: ALEITHADAVIS <+> 1 RN Sign [...] SJE IntraOp Surgical Procedures Audit 03/31/19 10:49:21 Net Front End Developer: ALEERINADAVIS Modifier: ALEITHADAVIS <+> 1 Stop SJE [...] Fluoroscopy Fluoroscopy Type C-Arm Site OPERATIVE SITE Lead Worker Of Housekeeping And Laundry Name KENIA ATKINS Protective Devices Yes Used Last Modified By: Liliana Royal RN 03/31/19 08:27:35 Case Comments <None> Finalized By: Liliana Royal RN Document Signatures Signed By: Liliana Royal RN 03/31/19 10:56 documented in this encounter Plan of Treatment Not on file documented as of this encounter Visit Diagnoses Not on filedocumented in this encounter
--- OUTSIDE RECORDS SUMMARY | 2025-07-07 21:19 | XMS_ITS | Encounter Summary ---
Author Organization [employer] ([place], [place], [place], [place], [place]) Address [address] [place] [address] Care Team Providers Care Package Lift Operator Name Role Phone Unavailable Primary Care Provider Unavailabl e Encounter Details Date Type Department Care Team (Late st Contact Info) Description 04/03/2019 Transcribed Document [facility] [place] Family Medicine [address] [place] [address] ProviderSb MD [address] [place] [address] Social History Tobacco Use Types Packs/Day [...]
--- OUTSIDE RECORDS SUMMARY | 2025-07-07 21:19 | XMS_ITS | Encounter Summary ---
Author Organization [employer] ([place], [place], [place], [place], [place]) Address [address] [place] [address] Care Team Providers Care Pole Shaver Name Role Phone Unavailable Primary Care Provider Unavailabl e Encounter Details Date Type Department Care Team (Late st Contact Info) Description 04/03/2019 Transcribed Document [facility] [place] Family Medicine [address] [place] [address] ProviderSb MD [facility] [place] [address] Social History Tobacco Use Types [...]
--- OUTSIDE RECORDS SUMMARY | 2025-07-07 21:19 | XMS_ITS | Encounter Summary ---
Author Organization [employer] ([place], [place], [place], [place], [place]) Address [address] [place] [address] Care Team Providers Care Toter Name Role Phone Unavailable Primary Care Provider Unavailabl e Encounter Details Date Type Department Care Team (Late st Contact Info) Description 03/19/2019 Transcribed Document [facility] [place] Family Medicine [facility] [place] [address] ProviderSb MD [address] [place] [address] Social History Tobacco Use Types Packs/Day [...] Health Plan: [employer] P[employer] Policy Number: [id number] Authorization Number: Insurance Primary Name : [employer] P[employer] Policy Number: [id number] Authorization Status-Primary : Notification only Authorization Number-Primary : [id number] Authorized Service Begin Date-Primary : 03/31/2019 EDT [...]
--- OUTSIDE RECORDS SUMMARY | 2025-07-07 21:19 | XMS_ITS | Encounter Summary ---
Author Organization [employer] ([place], [place], [place], [place], [place]) Address [address] [place] [address] Care Team Providers Care Electric Razor Mechanic Name Role Phone Unavailable Primary Care Provider Unavailabl e Encounter Details Date Type Department Care Team (Late st Contact Info) Description 03/31/2019 Transcribed Document [facility] [place] [facility] [place] [place] [address] ProviderSb MD [address] [place] [address] Social History Tobacco Use Types Packs/Day [...]
--- OUTSIDE RECORDS SUMMARY | 2025-07-07 21:19 | XMS_ITS | Encounter Summary ---
Author Organization [employer] ([place], [place], [place], [place], [place]) Address [address] [place] [address] Care Team Providers Care Policewoman Name Role Phone Unavailable Primary Care Provider Unavailabl e Encounter Details Date Type Department Care Team (Late st Contact Info) Description 04/03/2019 Transcribed Document [facility] [place] [facility] [place] [address] ProviderSb MD [facility] [place] [address] Social History Tobacco Use Types [...] ? Using the bathroom. ? Using household finishing department supervisor or poisonous chemicals. ? Touching or taking [...] 07/05/2009 Document Revised: 12/28/2016 Document Reviewed: 12/18/2014 [employer] Interactive Patient Education ? 2018 [employer] Fall Prevention in the Home, Adult [...] Keep items that you use often in doea-ju-sgibd places. Lower the shelves around your home [...] Control and Prevention, [place]AD[place]: https://cdc.gov ??? National [place] on Aging: https://eh1lpme.joe.nih.gov Contact a doctor if: ??? You are [...] 05/19/2010 Document Revised: 03/07/2018 Document Reviewed: 03/07/2018 [employer] Interactive Patient Education ? 2019 [employer] What to expect after the Procedure: [...] Barley. Bulgur wheat. Millet. Bran muffins. Popcorn. [place] wafer crackers. Vegetables Sweet potatoes. Spinach. Kale. Artichokes. Cabbage. Broccoli. Green peas. Carrots. Squash. Fruits Berries. Pears. Apples. Oranges. Avocados. Prunes and raisins. Dried figs. Meats and Other Protein Sources [place], kidney, mariscal, and soy beans. Split peas. [...] davey has 11 g of protein. ?? [place] seeds - 1 oz has 5.5 g [...] floor. ?? Place frequently used items in quuq-zg-kgwuu places ?? Keep electrical cables out of [...] ?? Using the bathroom. ?? Using household finishing department supervisor or toxic chemicals. ?? Touching or taking [...] 5. Step down with your stronger leg. documented in this encounter Plan of Treatment Not on file documented as of this encounter Visit Diagnoses Not on filedocumented in this encounter
--- OUTSIDE RECORDS SUMMARY | 2025-07-07 21:19 | XMS_ITS | Clinical Summary ---
Author Organization [facility] Address [address] [place] [address] Phone Care Team Providers Care Proof Clerk Name Role Phone JOHNSON GONCALVES DO Primary Care Provider [phone] Adrián Swenson MD Unavailable [phone] Rafi Roberts MD Unavailable [phone] Reason for Visit and Chief Complaint The Chief Complaint is: low back pain Problems Includes: Problems addressed during this encounter and other active Problems Current Visit Onset Date Resolved Date Provider Conditio n Status Lower Back Pain 01/07/2024 Constantine Garcia PA-C A ctive Last Documented On 4 1:00PM ; [facility] Past Visits Onset Date Resolved Date Provider Condition Status Joint Pain Hip Left 07/19/2016 Catracho Rubio MD Active Last Documented On 6 2:14PM ; [facility] Joint Pain Knee 10/14/2013 Catracho Rubio MD A ctive Last Documented On 4 2:09PM ; [facility] Plan of Treatment - Patient screened for future fall risk: documentation of any fall with injury in past year - Last Documented On 01/11/2024 11:55AM ; [facility] Fall Risk Assessment: This patient has been [...] - Last Documented On 01/11/2024 11:55AM ; [facility] Patient was seen by myself Constantine Garcia PA-C. Patient will follow up with Dr. English after lumbar spine MRI - Last Documented On 01/11/2024 11:55AM ; [facility] Pending Tests Order Diagnosis Results Due Ordering P rovider Radiology - MRI MRI Lumbar Spine Low back pain, unspecified 01/21/24 Constantine Garcia PA-C Last Documented On 4 11:55AM ; [facility] Instructions to patient Lose weight Last Documented On 4 2:08PM ; [facility] Assessments Includes: Assessments from this encounter Findings - Overweight - Last Documented On 01/11/2024 11:55AM ; [facility] Low back pain with previous lumbar fusion - Last Documented On 01/11/2024 11:55AM ; [facility] Lumbar DDD - Last Documented On 01/11/2024 11:55AM ; [facility] Instructions Includes: Instructions from this encounter Instructions to patient Lose weight Last Documented On 4 2:08PM ; [facility] Medical Equipment - Implanted Devices Includes: Current Devices No Medical Equipment Recorded Medications Includes: Medications discussed during this encounter and other current Medications Discontinued / Stopped on this date Kathleen Sanderson APRN on 12/27/2023 Phenazopyridine HCl 200 MG O ral Tablet Provider: Kathleen jackson APRN Diagnosis: Last Documented On 4 1:02PM By Radha [facility] Phenazopyridine HCl 200 MG Oral Tablet Pr ovider: Diagnosis: Last Documented On 4 1:02PM By Radha [facility] traMADol HCl 50 MG Oral Tablet Provider: MARIIA OLIVAS MD Diagnosis: Last Documented On 4 1:31PM By Radha [facility] traMADol HCl 50 MG Oral Tablet Provider: MARIIA OLIVAS MD Diagnosis: Last Documented On 4 1:02PM By Radha Stafford ; [facility] Nitrofurantoin Monohyd Macro 100 MG Oral Capsule Provider: Kathleen jackson APRN Diagnosis: Last Documented On 4 1:02PM By Radha Stafford ; [facility] Gabapentin 100MG Oral Capsule Provider: Diagnosis: Last Documented On 4 1:01PM By Radha Stafford ; [facility] EnovaRX-traMADol 5% External Cream Provid er: Diagnosis: Last Documented On 4 1:01PM By Radha Stafford ; [facility] Cyanocobalamin 2500MCG Subli ngual Tablet Sublingual Provider: MARIIA OLIVAS MD Diagnosis: Last Documented On 4 1:01PM By Radha Stafford ; [facility] Bystolic 2.5MG Oral Tablet Provider: Se OLIVAS MD Diagnosis: Last Documented On 4 1:01PM By Radha Stafford ; [facility] clonazePAM 0.25MG Oral Tablet Disintegrating Provider: MARIIA OLIVAS MD Diagnosis: Last Documented On 4 1:01PM By Radha Staffodr ; [facility] [...] On 4 1:01PM By Radha Stafford ; [facility] Ultram 50 MG OR TABS Provider: Diagnosis: Last Documented On 4 1:01PM By Radha Stafford ; [facility] MOTRIN 800 MG OR TABS Provider: Diagnosis: Last Documented On 4 1:01PM By Radha Stafford ; [facility] Lisinopril 20 MG OR TABS Provider: Diagnosis: Last Documented On 4 1:01PM By Radha Stafford ; [facility] Current Medications (continue as prescribed) diphenhydrAMINE HCl 5 MG/ML Oral Suspension Reconstitu paras 01/07/2024 Provider: Diagnosis: Last Documented On 4 1:30PM By Radha Stafford ; [facility] Klor-Con M20 20 MEQ Oral Tablet Extended Release 01/06 Provider: Diagnosis: Last Documented On 4 1:31PM By Radha Stafford ; [facility] Phenazopyridine HCl 200 MG Oral Tablet 01/04/2024 Pr ovider: Diagnosis: Last Documented On 4 1:02PM By Radha Stafford ; [facility] Symbicort 160-4.5 MCG/ACT Inhalation Aerosol Provider: Diagnosis: Last Documented On 4 1:02PM By Radha Stafford ; [facility] Nitrofurantoin Monohyd Macro 100 MG Oral Capsule 12/18 Provider: Diagnosis: Last Documented On 4 1:02PM By Radha Stafford ; [facility] Premarin 0.625 MG/GM Vaginal Cream 12/14/2023 Provid er: Diagnosis: Last Documented On 4 1:02PM By Radha Stafford ; [facility] traMADol HCl 50 MG Oral Tablet 12/14/2023 Provider: MARIIA OLIVAS MD Diagnosis: Last Documented On 4 1:02PM By Radha Stafford ; [facility] Nystatin [id number] UNIT/GM External Ointment 12/03/2023 Provider: Diagnosis: Last Documented On 4 1:02PM By Radha Stafford ; [facility] Atorvastatin Calcium 20 MG Oral Tablet 11/21/2023 Pr ovider: MARIIA OLIVAS MD Diagnosis: Last Documented On 4 1:30PM By Radha Stafford ; [facility] Potassium Chloride Zaina ER 2 0 MEQ Oral Tablet Extended Release 09/08/2023 Provider: Kathleen Sanderson APRN Diagnosis: Last Documented On 4 1:02PM By Radha Stafford ; [facility] Furosemide 20 MG Oral Tablet 08/16/2023 Provider: Kathleen Sanderson APRN Diagnosis: Last Documented On 4 1:02PM By Radha Stafford ; [facility] Ipratropium-Albuterol 0.5-2.5 (3) MG/3ML Inhalat ion Solution 08/01/2023 Provider: Diagnosis: Last Documented On 4 1:31PM By Radha Stafford ; [facility] Medications Administered Includes: Administered Medications from this encounter No Administered Medications Recorded Vital Signs Includes: Vital Signs from this encounter Vital Name 01/07/2024 02:08P Height (in) 61 Weight (lb) 174 Body Mass Index 32.9 Body Surface Area 1.8 Pain Level 10 Note: lc Last Documented: On 01/07/2024 2:08PM ; [facility] Results Includes: Results discussed during this [...] 01/07/2024 Last Documented On 4 11:55AM ; [facility] Not a current smoker. 01/07/2024 Last Documented On 4 11:55AM ; [facility] No caffeine use 06/11/2019 Last Documented On 4 1:02PM ; [facility] No recent change in diet 07/19/2016 Last Documented On 4 1:02PM ; [facility] Not exercising regularly 07/19/2016 Last Documented On 4 1:02PM ; [facility] Not using alcohol 07/19/2016 Last Documented On 4 1:02PM ; [facility] Not using drugs 07/19/2016 Last Documented On 4 1:02PM ; [facility] No tobacco use 10/14/2013 Last Documented On 4 1:02PM ; [facility] Smoking Status Unknown Procedures and Surgical History Surgical History Last Updated History of History of Gallbladder 2023 Last Documented On 4 11:55AM ; [facility] History of total hip replacement 024 Last Documented On 4 11:55AM ; [facility] History of appendectomy 09/24/2019 Last Documented On 4 1:02PM ; [facility] History of back surgery 09/24/2019 Last Documented On 4 1:02PM ; [facility] History of hysterectomy 09/24/2019 Last Documented On 4 1:02PM ; [facility] Medical History Includes: Medical History addressed during this encounter Description Last Updated History of asthma 01/07/2024 Last Documented On 4 11:55AM ; [facility] History of Hypertension 01/07/2024 Last Documented On 4 11:55AM ; [facility] History of Irregular Heartbeat 4 Last Documented On 4 11:55AM ; [facility] History of Liver Disease 01/07/2024 Last Documented On 4 11:55AM ; [facility] History of Sleep Apnea 01/07/2024 Last Documented On 4 11:55AM ; [facility] left carpal tunnel ~right and left arm r otator cuff ~blood transfusion 09/24/2019 Last Documented On 4 1:02PM ; [facility] A recent immunization for pneumococcal p neumonia 06/201609/24/2019 Last Documented On 4 1:02PM ; [facility] Arthritic joint problems 09/24/2019 Last Documented On 4 1:02PM ; [facility] Gallbladder disease 09/24/2019 Last Documented On 4 1:02PM ; [facility] History of diverticulitis of colon 09/24 Last Documented On 4 1:02PM ; [facility] History of hepatitis 09/24/2019 Last Documented On 4 1:02PM ; [facility] Intermittent hypertension 09/24/2019 Last Documented On 4 1:02PM ; [facility] Family History Includes: Family History addressed during this encounter Description Last Updated Family history of cancer 09/24/2019 Last Documented On 4 1:02PM ; [facility] Family history of heart disease 09/24/19 20 Last Documented On 4 1:02PM ; [facility] Family history of hypertension 0 Last Documented On 4 1:02PM ; [facility] Family history of rheumatoid arthritis m other 09/24/2019 Last Documented On 4 1:02PM ; [facility] Review of Systems Includes: Review [...] Active Last Documented On 4 9:47AM ; [facility] Encounters Encounter Provider Location Date Check-In Time Check-Out Time Diagnosis Physician Specified [facility] 12:57PM 2:00PM Overweight Insurance Includes: Active Insurance Policies Plan Name Member ID Group # Subscriber Relationship Effect etelvina Dates 1 - [employer] [id number] Samara Hayward Self 07/16/2019 - Unknown Clinical Notes Includes: Clinical Notes from this encounter * Progress note Date Encounter Last Documented by 01/07/2024 Physician Specified Nael crain on 01/11/2024; 11:55 AM, Constantine Garcia PA-C; [facility] Active Problems & Conditions - Joint [...] the time she previously was seeing Dr. Xei with pain management and has been getting [...] Capsule 7 days, 0 refills - Nystatin [id number] UNIT/GM External Ointment 10 days, 0 refills [...]
--- OUTSIDE RECORDS SUMMARY | 2025-07-07 21:19 | XMS_ITS | Encounter Summary ---
Author Organization [employer] ([place], [place], [place], [place], [place]) Address [address] [place] [address] Care Team Providers Care Heating Fixture Tender Name Role Phone Unavailable Primary Care Provider Unavailabl e Encounter Details Date Type Department Care Team (Late st Contact Info) Description 04/02/2019 Transcribed Document [facility] [place] [facility] [place] [address] ProviderSb MD [address] [place] [id number] Social History Tobacco Use Types Packs/Day [...] a high for risk ???Unsteady and needed rehabilitation/long-term facility Review of Systems Constitutional: No fever, [...] mL inj 40 mg 0.4 mL, SubCutaneous, [id number] folic acid 1 mg tab 1 mg [...] Oral, Daily phenol 1.4% throat spray 5 [place], Oral, Q2H promethazine 25 mg tab 12.5 [...] on CTA results of the chest -Needs rehabilitation/long-term facility. Electronically signed by Vinita Fountain Conversion Superintendent Communications Cerner at 11/21/2022 4:27 PM CDT documented in this encounter Plan of Treatment Not on file documented as of this encounter Visit Diagnoses Not on filedocumented in this encounter
--- OUTSIDE RECORDS SUMMARY | 2025-07-07 21:19 | XMS_ITS | Clinical Summary ---
Author Organization [facility] Address [address] [place] [address] Phone Care Team Providers Care Woodworker Helper Name Role Phone JOHNSON GONCALVES DO Primary Care Provider [phone] Adrián Swenson MD Unavailable [phone] Rafi Roberts MD Unavailable [phone] Reason for Visit and Chief Complaint The Chief Complaint is: Left hip pain Problems Includes: Problems addressed during this encounter and other active Problems Current Visit Onset Date Resolved Date Provider Conditio n Status Lower Back Pain 01/07/2024 Constantine Garcia PA-C A ctive Last Documented On 4 1:00PM ; [facility] Past Visits Onset Date Resolved Date Provider Condition Status Joint Pain Hip Left 07/19/2016 Catracho Rubio MD Active Last Documented On 6 2:14PM ; [facility] Joint Pain Knee 10/14/2013 Catracho Rubio MD A ctive Last Documented On 4 2:09PM ; [facility] Plan of Treatment She was provided a referral to our orthospine team and Dr. Roberts for further evaluation of the lumbar spine. She will follow up with our office on an as- needed basis and will contact us if she has any questions or concerns in the meantime. - Last Documented On 05/05/2021 1:38PM ; [facility] Assessments Includes: Assessments from this encounter [...] - Last Documented On 05/05/2021 1:38PM ; [facility] Medical Equipment - Implanted Devices Includes: Current Devices No Medical Equipment Recorded Medications Includes: Medications discussed during this encounter and other current Medications Discontinued / Stopped on this date Catracho Rubio MD on 09/26/2019 Valium 5 MG Oral Tablet Provider: Catracho Rubio MD Diagnosis: Last Documented On 1 1:43PM By Janelle Pendleton ; [facility], [facility] Midland 5-325MG Oral Tablet Provider: Hugh Quiroga MD Diagnosis: Last Documented On 1 1:43PM By Janelle Pendleton ; [facility] Xarelto 10MG Oral Tablet Provider: Norris Rubio MD Diagnosis: Last Documented On 1 1:43PM By Janelle Pendleton ; [facility] Aspirin 325MG Oral Tablet Provider: Rebecca Rubio MD Diagnosis: Last Documented On 1 1:43PM By Janelle Pendleton ; [facility], [facility] Percocet 7.5-325MG Oral Tablet Provider: Catracho Rubio MD Diagnosis: Last Documented On 1 1:43PM By Janelle Pendleton ; [facility] Zofran 4MG Oral Tablet Provider: Catracho Rubio MD Diagnosis: Last Documented On 1 1:43PM By Janelle Pendleton ; [facility] Mupirocin 2% External Ointment Provider: Catracho Rubio MD Diagnosis: Last Documented On 1 1:43PM By Janelle Pendleton ; [facility], [facility] Percocet 7.5-325 MG OR TABS Provider: Catracho Rubio MD Diagnosis: Last Documented On 1 1:43PM By Janelle Pendleton ; [facility] Lortab 7.5-500 MG OR TABS Provider: Rebecca Rubio MD Diagnosis: Last Documented On 1 1:42PM By Janelle Pendleton ; [facility] Percocet 5-325 MG OR TABS Provider: Rebecca Rubio MD Diagnosis: Last Documented On 1 1:42PM By Janelle Pendleton ; [facility] traMADol HCl 50 MG OR TABS Provider: Macho Rubio MD Diagnosis: Last Documented On 1 1:43PM By Janelle Pendleton ; [facility] traMADol HCl 50 MG OR TABS Provider: Macho Rubio MD Diagnosis: Last Documented On 1 1:42PM By Janelle Pendleton ; [facility] traMADol HCl 50 MG OR TABS Provider: Macho Rubio MD Diagnosis: Last Documented On 1 1:42PM By Janelle Pendleton ; [facility] Relafen 500 MG OR TABS Provider: Catracho Rubio MD Diagnosis: Last Documented On 1 1:42PM By Janelle Pendleton ; [facility] Lortab 5-500 MG OR TABS Provider: Catracho Rubio MD Diagnosis: Last Documented On 1 1:42PM By Janelle Pendleton ; [facility] Lortab 5-500 MG OR TABS Provider: Catracho Rubio MD Diagnosis: Last Documented On 1 1:42PM By Janelle Pendleton ; [facility] Percocet 5-325 MG OR TABS Provider: Rebecca Rubio MD Diagnosis: Last Documented On 1 1:42PM By Janelle Pendleton ; [facility] Current Medications (continue as prescribed) diphenhydrAMINE HCl 5 MG/ML Oral Suspension Reconstitu paras 01/07/2024 Provider: Diagnosis: Last Documented On 4 1:30PM By Radha Stafford ; [facility] Klor-Con M20 20 MEQ Oral Tablet Extended Release 01/06 Provider: Diagnosis: Last Documented On 4 1:31PM By Radha Stafford ; [facility] Phenazopyridine HCl 200 MG Oral Tablet 01/04/2024 Pr ovider: Diagnosis: Last Documented On 4 1:02PM By Radha Stafford ; [facility] Symbicort 160-4.5 MCG/ACT Inhalation Aerosol 4 Provider: Diagnosis: Last Documented On 4 1:02PM By Radha Stafford ; [facility] Nitrofurantoin Monohyd Macro 100 MG Oral Capsule 12/18 Provider: Diagnosis: Last Documented On 4 1:02PM By Radha Stafford ; [facility] Premarin 0.625 MG/GM Vaginal Cream 12/14/2023 Provid er: Diagnosis: Last Documented On 4 1:02PM By Radha Stafford ; [facility] traMADol HCl 50 MG Oral Tablet 12/14/2023 Provider: KHADAR OLIVAS MD Diagnosis: Last Documented On 4 1:02PM By Radha Stafford ; [facility] Nystatin [id number] UNIT/GM External Ointment 12/03/2023 Provider: Diagnosis: Last Documented On 4 1:02PM By Radha Stafford ; [facility] Atorvastatin Calcium 20 MG Oral Tablet 11/21/2023 Pr ovider: KHADAR OLIVAS MD Diagnosis: Last Documented On 4 1:30PM By Radha Stafford ; [facility] Potassium Chloride Zaina ER 2 0 MEQ Oral Tablet Extended Release 09/08/2023 Provider: Kathleen Sanderson APRN Diagnosis: Last Documented On 4 1:02PM By Radha Stafford ; [facility] Furosemide 20 MG Oral Tablet 08/16/2023 Provider: Kathleen Sanderson APRN Diagnosis: Last Documented On 4 1:02PM By Radha Stafford ; [facility] Ipratropium-Albuterol 0.5-2.5 (3) [...] ss Last Documented: On 02/22/2021 1:52PM ; [facility] Results Includes: Results discussed during this encounter [...] with the appointment because they required a [place] MRI and she is unable to have [...] 02/22/2021 Last Documented On 1 1:38PM ; [facility] Smoking Status Unknown Procedures and Surgical History Includes: Procedures from this encounter Procedures Code Diagnosis Performing Provider Service L ocation Service Date use of tobacco assessment performed 1000F Last Documented On 1 1:44PM ; [facility] Pt received screening for fall risk G8270 Last Documented On 1 1:44PM ; [facility] Medical History Includes: Medical History addressed [...] ve Last Documented On 4 9:47AM ; [facility] Keflex Allergy 10/14/2013 Active Last Documented On 4 9:47AM ; [facility] Betadine Allergy 10/14/2013 Active Last Documented On 4 9:47AM ; [facility] Bactroban Allergy 03/28/2019 Active Last Documented On 4 9:47AM ; [facility] Encounters Encounter Provider Location Date Check-In Time Check-Out Time Diagnosis Physician Specified Maldonado Cheung MD [facility] 02/23/20 21 1:26PM 2:32PM Insurance Includes: Active Insurance Policies Plan Name Member ID Group # Subscriber Relationship Effect etelvina Dates 1 - [employer] [id number] Samara Hayward Self 07/16/2019 - Unknown Clinical Notes Includes: Clinical Notes from this encounter No Clinical Notes Recorded
--- OUTSIDE RECORDS SUMMARY | 2025-07-07 21:19 | XMS_ITS | Encounter Summary ---
Author Organization [employer] ([place], [place], [place], [place], [place]) Address [address] [place] [address] Care Team Providers Care Marine Diver Name Role Phone Unavailable Primary Care Provider Unavailabl e Encounter Details Date Type Department Care Team (Late st Contact Info) Description 03/31/2019 Transcribed Document [facility] [place] [address] ProviderSb MD [address] [place] [address] Social History Tobacco Use Types Packs/Day [...] On: 04/02/2019 20:50 EDT by ISAIAS BOLTON, Revenue Enforcement Collection Agent-Nursing Intervention Information: HYDROmorphone Performed by ISAIAS BOLTON, Revenue Enforcement Collection Agent-Nursing on 04/02/2019 20:20:00 EDT HYDROmorphone,0.5mg IV Push,Peripheral Line 1,Pain (Severe 7-10) Pain Assessment Pain Assessment : Follow-up assessment Pain Scale Goal : 4 Pain Intervention, Drug : Medicated Pain Improved by Intervention : Yes ISAIAS BOLTON, Revenue Enforcement Collection Agent-Nursing - 04/03/2019 0:08 EDT documented in this encounter Plan of Treatment Not on file documented as of this encounter Visit Diagnoses Not on filedocumented in this encounter
--- OUTSIDE RECORDS SUMMARY | 2025-07-07 21:19 | XMS_ITS | Clinical Summary ---
Author Organization [facility] Address [address] [place] [address] Phone Care Team Providers Care Crack Off Person Name Role Phone JOHNSON GONCALVES DO Primary Care Provider [phone] Adrián Swenson MD Unavailable [phone] Rafi Roberts MD Unavailable [phone] [...] Documented On 4 1:00PM ; [facility] Past Visits Onset Date Resolved Date Provider Condition Status Joint Pain Hip Left 07/19/2016 Catracho Rubio MD Active Last Documented On 6 2:14PM ; [facility] Joint Pain Knee 10/14/2013 Catracho Rubio MD A ctive Last Documented On 4 2:09PM ; [facility] Plan of Treatment - Patient screened for future fall risk: documentation of any fall with injury in past year - Last Documented On 01/24/2024 11:36AM ; [facility] - Clinical consultation report - Last Documented On 01/24/2024 11:36AM ; [facility] - Referral to physician - Last Documented On 01/24/2024 11:36AM ; [facility] Fall Risk Assessment: This patient has [...] - Last Documented On 01/24/2024 11:36AM ; [facility] Patient was seen by myself [...] - Last Documented On 01/24/2024 11:36AM ; [facility] Referrals To Diagnosis Consult for Pain Management Over weight Note: Dr Stone [facility] // cc Last Documented On 4 8:31AM ; [facility] Consult with Vascular Overweight Note: Dr Leiva for Vascular Consult /// cc Last Documented On 4 11:36AM ; [facility] Instructions to patient Lose weight Last Documented On 4 9:47AM ; [facility] Assessments Includes: Assessments from this encounter Findings - Overweight - Last Documented On 01/24/2024 11:36AM ; [facility] Lumbar DDD - Last Documented On 01/24/2024 11:36AM ; [facility] Instructions Includes: Instructions from this encounter Instructions to patient Lose weight Last Documented On 4 9:47AM ; [facility] Medical Equipment - Implanted Devices Includes: Current Devices No Medical Equipment Recorded Medications Includes: Medications discussed during this encounter and other current Medications Current Medications (continue as prescribed) diphenhydrAMINE HCl 5 MG/ML Oral Suspension Reconstitu paras 01/07/2024 Provider: Diagnosis: Last Documented On 4 1:30PM By Radha Stafford ; [facility] Klor-Con M20 20 MEQ Oral Tablet Extended Release 01/06 Provider: Diagnosis: Last Documented On 4 1:31PM By Radha Stafford ; [facility] Phenazopyridine HCl 200 MG Oral Tablet 01/04/2024 Pr ovider: Diagnosis: Last Documented On 4 1:02PM By Radha Stafford ; [facility] Symbicort 160-4.5 MCG/ACT Inhalation Aerosol Provider: Diagnosis: Last Documented On 4 1:02PM By Radha Stafford ; [facility] Nitrofurantoin Monohyd Macro 100 MG Oral Capsule 12/18 Provider: Diagnosis: Last Documented On 4 1:02PM By Radha Stafford ; [facility] Premarin 0.625 MG/GM Vaginal Cream 12/14/2023 Provid er: Diagnosis: Last Documented On 4 1:02PM By Radha Stafford ; [facility] traMADol HCl 50 MG Oral Tablet 12/14/2023 Provider: MARIIA OLIVAS MD Diagnosis: Last Documented On 4 1:02PM By Radha Stafford ; [facility] Nystatin 236536 UNIT/GM External Ointment 12/03/2023 Provider: Diagnosis: Last Documented On 4 1:02PM By Radha Stafford ; [facility] Atorvastatin Calcium 20 MG Oral Tablet 11/21/2023 Pr ovider: MARIIA OLIVAS MD Diagnosis: Last Documented On 4 1:30PM By Radha Stafford ; [facility] Potassium Chloride Zaina ER 2 0 MEQ Oral Tablet Extended Release 09/08/2023 Provider: Kathleen Sanderson APRN Diagnosis: Last Documented On 4 1:02PM By Radha Stafford ; [facility] Furosemide 20 MG Oral Tablet 08/16/2023 Provider: Kathleen Sanderson APRN Diagnosis: Last Documented On 4 1:02PM By Radha Stafford ; [facility] Ipratropium-Albuterol 0.5-2.5 (3) MG/3ML [...] Documented On 4 9:47AM ; [facility] Not a current smoker. 01/07/2024 Last Documented On 4 9:47AM ; [facility] Non-smoker 02/22/2021 Last Documented On 4 9:47AM ; [facility] No caffeine use 06/11/2019 Last Documented On 4 9:47AM ; [facility] No recent change in diet 07/19/2016 Last Documented On 4 9:47AM ; [facility] Not a current smoker 07/19/2016 Last Documented On 4 9:47AM ; [facility], [facility] Not exercising regularly 07/19/2016 Last Documented On 4 9:47AM ; [facility], [facility] Not using alcohol 07/19/2016 Last Documented On 4 9:47AM ; [facility], [facility] Not using drugs 07/19/2016 Last Documented On 4 9:47AM ; [facility], [facility] No tobacco use 10/14/2013 Last Documented On 4 9:47AM ; [facility], [facility] Smoking status : Never smoked/ Recode: 4 10/14/2013 Last Documented On 4 9:47AM ; [facility], [facility] Procedures and Surgical History Includes: Procedures from this encounter Procedures Code Diagnosis Performing Provider Service L ocation Service Date an MRI was performed L-spine 01/14/[address] [facility] [id number] Last Documented On 4 9:48AM ; [facility], [facility] Surgical History Last Updated History of total hip replacement Left 01/24/2024 Last Documented On 4 11:36AM ; [facility] Past Surgical History: left carpal tunne l ~right and left arm rotator cuff 01/24/2024 Last Documented On 4 11:36AM ; [facility] History of History of Gallbladder 2023 Last Documented On 4 9:47AM ; [facility], [facility] History of appendectomy 09/24/2019 Last Documented On 4 9:47AM ; [facility] History of back surgery 09/24/2019 Last Documented On 4 9:47AM ; [facility], [facility] History of hysterectomy 09/24/2019 Last Documented On 4 9:47AM ; [facility], [facility] Medical History Includes: Medical History addressed during this encounter Description Last Updated History of History of Blood Transfusion 01/24/2024 Last Documented On 4 11:36AM ; [facility] History of asthma 01/07/2024 Last Documented On 4 9:47AM ; [facility] History of Hypertension 01/07/2024 Last Documented On 4 9:47AM ; [facility] History of Irregular Heartbeat 4 Last Documented On 4 9:47AM ; [facility] History of Liver Disease 01/07/2024 Last Documented On 4 9:47AM ; [facility] History of Sleep Apnea 01/07/2024 Last Documented On 4 9:47AM ; [facility] A recent immunization for pneumococcal p neumonia 06/201609/24/2019 Last Documented On 4 9:47AM ; [facility] Arthritic joint problems 09/24/2019 Last Documented On 4 9:47AM ; [facility] Gallbladder disease 09/24/2019 Last Documented On 4 9:47AM ; [facility] History of diverticulitis of colon 09/24 Last Documented On 4 9:47AM ; [facility] History of hepatitis 09/24/2019 Last Documented On 4 9:47AM ; [facility] Intermittent hypertension 09/24/2019 Last Documented On 4 9:47AM ; [facility] Family History Includes: Family History addressed during this encounter Description Last Updated Family history of cancer 09/24/2019 Last Documented On 4 9:47AM ; [facility] Family history of heart disease 09/24/19 20 Last Documented On 4 9:47AM ; [facility] Family history of hypertension 0 Last Documented On 4 9:47AM ; [facility] Family history of rheumatoid arthritis m other 09/24/2019 Last Documented On 4 9:47AM ; [facility] Review of Systems Includes: [...] ve Last Documented On 4 9:47AM ; [facility] Keflex Allergy 10/14/2013 Active Last Documented On 4 9:47AM ; [facility] Betadine Allergy 10/14/2013 Active Last Documented On 4 9:47AM ; [facility] Bactroban Allergy 03/28/2019 Active Last Documented On 4 9:47AM ; [facility] Encounters Encounter Provider Location Date Check-In Time Check-Out Time Diagnosis Follow Up Edwardo English MD [facility] 4 9:30AM 10:27AM Overweight Insurance Includes: Active Insurance Policies Plan Name Member ID Group # Subscriber Relationship Effect etelvina Dates 1 - [employer] [id number] Samara Hayward Self 07/16/2019 - Unknown Clinical Notes Includes: Clinical Notes from this encounter * Progress note Date Encounter Last Documented by 01/24/2024 Follow Up Last documented on 01/24/2024; 11:36 AM, Edwardo English MD; [facility], [facility] Active Problems & Conditions - Joint [...] Capsule 7 days, 0 refills - Nystatin [id number] UNIT/GM External Ointment 10 days, 0 refills [...] An MRI was performed L-spine 01/14/[address] [facility]. Available previous imaging studies were reviewed Available [...]
--- OUTSIDE RECORDS SUMMARY | 2025-07-07 21:19 | XMS_ITS | Encounter Summary ---
Author Organization [employer] ([place], [place], [place], [place], [place]) Address [address] [place] [address] Care Team Providers Care Oncology Consultant Name Role Phone Unavailable Primary Care Provider Unavailabl e Encounter Details Date Type Department Care Team (Late st Contact Info) Description 03/31/2019 Transcribed Document [facility] Family Medicine [facility] [place] [address] ProviderSb MD [address] [place] [id number] Social History Tobacco Use Types Packs/Day [...] Health Plan: [employer] Policy Number: [id number] Authorization Number: [id number] Insurance Primary Name : [employer] P[employer] Policy Number: [id number] Authorization Status-Primary : Notification only Authorization Number-Primary : [id number] Authorized Service Begin Date-Primary : 03/31/2019 EDT Historical Authorization Comments-Primary : Comment 1: [employer] P[employer] approved per availity for inpt -- must fax clinicals (MANUEL HAMPTON RN-Utilization Review 03/19/2019 11:55) MANUEL HAMPTON RN-Utilization Review - 03/31/2019 13:28 EDT Electronically signed by [employer]a [employer] Conversion Production Control Expert Fernando at 11/21/2022 4:16 PM CDT documented in this encounter Plan of Treatment Not on file documented as of this encounter Visit Diagnoses Not on filedocumented in this encounter
--- OUTSIDE RECORDS SUMMARY | 2025-07-07 21:20 | XMS_ITS | Encounter Summary ---
Author Organization [employer] ([place], [place], [place], [place], [place]) Address [address] [place] [address] Care Team Providers Care Education And Training Coordinator Name Role Phone Unavailable Primary Care Provider Unavailabl e Encounter Details Date Type Department Care Team (Late st Contact Info) Description 04/01/2019 Transcribed Document [facility] Family Medicine [facility] [place] [address] ProviderSb MD [address] [place] [id number] Social History Tobacco Use Types Packs/Day [...] leaving it in today. [facility]. Sonny Jeong RN - 04/01/2019 6:38 EDT Electronically signed by Vinita [employer] Business Analysis Consultant [place] at 11/21/2022 4:20 PM CDT documented in this encounter Plan of Treatment Not on file documented as of this encounter Visit Diagnoses Not on filedocumented in this encounter
--- OUTSIDE RECORDS SUMMARY | 2025-07-07 21:20 | XMS_ITS | Encounter Summary ---
Author Organization [employer] ([place], [place], [place], [place], [place]) Address [address] [place] [address] Care Team Providers Care Counter Waiter Name Role Phone Unavailable Primary Care Provider Unavailabl e Encounter Details Date Type Department Care Team (Late st Contact Info) Description 04/01/2019 Transcribed Document [facility] Family Medicine [facility] [place] [address] ProviderSb MD [address] [place] [id number] Social History Tobacco Use Types Packs/Day [...]
--- OUTSIDE RECORDS SUMMARY | 2025-07-07 21:20 | XMS_ITS | Data Portability ---
Author Organization [facility] SUNNY Parkinson [place] CLOSED Address [address] [facility] [address] [place] [address] Care Team Providers Care Compensation Coordinator Name Role Phone YARITZA MARIN Primary Care [...] dipstic k, auto 018 12/14/19 18 4 [facility], [address] [place] [address] , [address], [place], [address], 8 20:43:45 culture , urine 018 12/14/19 18 [facility], [address] [place] [address], [place], [address], 8 08:44:07 Referral None recorde d. Procedures None recorde d. Surgeries None recorde d. Imaging None recorde d. Medication Orders None recorde d. Patient TargetsNo targets recorded. Patient Instructions Encounter Date Encounter Id Patient Instructions Last Modified By Organization Details Last Modified Time 12/13/2017 [id number] healthy together [email or web address] Not availa ble 12/13/2017 20:43:45 Female Urinary Tract Infection (UTI): Care Instructions [email or web address] Not available 12/13/2017 20:43:45 learning about high blood pressure [email or web address] Not available 12/13/2017 20:43:45 kidney stone: care instructions [email or web address] Not available 12/18/2017 11:59:52 learning about diet for kidney stone prevention [email or web address] Not available 12/18/2017 11:59:52 Reason for Referral None Reported. Results Created Date Observation Date Name Description Value Unit Range Abnormal Flag Note LastModifiedBy Organization Detail LastModifiedTime 12/14/19 18 12/13/2017 urina lysis , dipst ick, auto Unknown Analyte Yellow Not Available [address], [place], [address], 12/13/2017 18:12:50 12/14/19 18 12/13/2017 urina lysis , dipst ick, auto Unknown Analyte Clear Not Available [facility] [address], [place], [address], 12/13/2017 18:12:50 12/14/19 18 12/13/2017 urina lysis , dipst ick, auto Unknown Analyte 1.020 Not Available [facility] [address], [place], [address], 12/13/2017 18:12:50 12/14/19 18 12/13/2017 urina lysis , dipst ick, auto Unknown Analyte 5.0 Not Available [facility] [address], [place], [address], 12/13/2017 18:12:50 12/14/19 18 12/13/2017 urina lysis , dipst ick, auto Unknown Analyte 500 Ruddy/ul (++) Not Available [facility] [address], [place], [address], 12/13/2017 18:12:50 12/14/19 18 12/13/2017 urina lysis , dipst ick, auto Unknown Analyte Negati ve Not Available [facility] With [address] [place], [place], [address], 12/13/2017 18:12:50 12/14/19 18 12/13/2017 urina lysis , dipst ick, auto Unknown Analyte Negtiv e Not Available [facility] With [address] [place], [place], [address], 12/13/2017 18:12:50 12/14/19 18 12/13/2017 urina lysis , dipst ick, auto Unknown Analyte Normal Not Available [facility] With [address] [place], [place], [address], 12/13/2017 18:12:50 12/14/19 18 12/13/2017 urina lysis , dipst ick, auto Unknown Analyte Negati ve Not Available [facility] With [address] [place], [place], [address], 12/13/2017 18:12:50 12/14/19 18 12/13/2017 urina lysis , dipst ick, auto Unknown Analyte Normal Not Available [facility] With [address] [place], [place], [address], 12/13/2017 18:12:50 12/14/19 18 12/13/2017 urina lysis , dipst ick, auto Unknown Analyte Negati ve Not Available [facility] With [address] [place], [place], [address], 12/13/2017 18:12:50 12/14/19 18 12/13/2017 urina lysis , dipst ick, auto Unknown Analyte 50 Tony/ul Not Available [facility] With [address], [place], [address], 12/13/2017 18:12:50 12/14/19 18 12/13/2017 urina lysis , dipst ick, auto Unknown Analyte Clean Catch Not Available [facility] With [address], [place], [address], 12/13/2017 18:12:50 12/14/19 18 12/13/2017 urina lysis , dipst ick, auto Unknown Analyte Automa paras Not Available [facility] With [address], [place], [address], 12/13/2017 18:12:50 12/14/19 18 12/13/2017 cultu re, urine results [facility] e: CCUR Colle cted: 12/13 18:14 Site: Recei fawad : 12/14 09:06 URINE SCREE N(CUL TURE) FINAL 12/17 11:16 12/17 COLON Y COUNT : 10,00 0 - 100,0 00 CFU/M L Three or more isola rolo; mixed skin monique . Not Available [facility] [address] [place] [address], [address], 12/17/2017 11:16:32 12/15/19 18 05/08/2017 CT, abdom en + pelvi s, w/o contr ast No observ ation record ed. [email or web address] Not Available 12/04 13:00:45 03/07/20 18 11/08/2017 CT, abdom en + pelvi s, w/o contr ast No observ ation record ed. BARCODE Not Available 2017 08:35:03 08/22/19 19 08/22/2018 fluor oscop y (PROC ) No observ ation record ed. [email or web address] [facility] [place] [address] [address] [facility] [address], [place], [place], [id number], 08/26/2018 07:53:35 08/29/19 19 08/29/2018 XR, abdom en, 1 view No observ ation record ed. [address] [facility] [place] [address] [place], [id number], 09/02/2018 15:41:08 09/12/19 19 09/12/2018 XR, abdom en, 1 view No observ ation record ed. [address] [facility] [place] [address] [address] [place] [place], [id number], 09/16/2018 15:23:48 Result Notes None recorded. Problems Name Problem SNOMED Code Status Onset Date Resolution Date Notes Provider Name and Address Organization Details Recorded Time Kidney stone 35748098 Active 018 Murelene Atul [facility] 12/13/2017 18:08:39 Problem Notes None recorded. Procedures Surgical History Date Name Laterality Status Provider Name and Address Organization Details Recorded Time Cholecystectomy completed Murelene Atul [facility] 12/13/2017 18:09:19 Appendectomy completed Murelene Atul [facility] 12/13/2017 18:09:22 Hysterectomy completed Murelene Atul [facility] 12/13/2017 18:09:27 [facility] 12/13/2017 18:09:35 [facility] 12/13/2017 18:09:43 Xcapsl ctrc rmvl cplx wo ecp completed Murelene Atul [facility] 12/13/2017 18:10:24 Imaging Results None recorded. Procedure Notes None recorded. Medical Equipment None Reported. Allergies Allergen ID Allergen Name Allergen Category Reaction Reaction Severity Criticality Documentation Date Start Date Code Code System Note Provider Name and Address Organization Details Recorded Time 150790 Keflex medicatio n Not available Not available Not available 06/30/20162013 79248 7 RxNorm Comme nt: Creat ed By: Yany crain Date: 014 1:57: 39 PM; Not Available [facility] 6 05:28:44 475797 Iodinated contrast media (substanc e) medicatio n Not available Not available Not available 12/13/2017 81771 2004 SNOMED Mathieumigel Atul [facility] 8 18:06:57 Medications Name Sig Start [...] Updated DateTime 12/13/2017 154.94 cm 34.2 kg/m2 22058.22 g 140/60 mm[Hg] Rickautumnmigel Atul [facility] 12/13/2017 18:06:44 Social History Question Answer Notes LastModified by Organizat ion Details LastModified Time Tobacco Smoking Status Former Smoker Mathieumigel Atul [facility] 12/13/2017 18:09:02 What Was The Date [...] Condition Response Kidney Stones Y Depression Y Ulcers Y Anxiety Disorder Y Arthritis Y High PSA Y Gynecological HistoryNo gynecological history recorded. Obstetrics History GPAL:G 0 P 0 0 0 0 Past Encounters Encounter ID Performer Location Encounter Start Date Encounter Closed Date Diagnosis/Indication Diagnosis SNOMED-CT Code Diagnosis ICD10 Code Diagnosis IMO Codes Diagnosis Note [id number] JEY SAM MD [facility] [address] [place] [address],[place] [address] 12/13/2017 15:35:16 12/18/2017 12:30:05 Urinary tract infectious disease 62167043 N39.0 Kidney stone 50086769 N2 0.0 Health Concerns Section Related Observation LastModified by Organization Detai ls LastModified Time None Recorded Concern Status LastModified by Organization Details LastModified Time None Recorded Advance Directives Directive None Recorded Payers Insurance Date Sequence Insurance Name Policy Number Policy Alexander Covered Member ID Alexander Member ID Guarantor Name 12/17/2017 1 [employer] - [employer] (PPO) Samara Hayward [id number] Samara Hayward 07/10/2021 1 [employer] (MEDICARE REPLACEMENT/A DVANTAGE - PPO) Samara Hayward [id number] Samara Salisbury 12/18/2017 GENERIC INSURANCE - MOVED-HOLD Samara Hayward [...] dysuria. She denies nocturia. JEY SAM MD [address] [place] [address], [address], [facility] 12/18/2017 12:01:48 OBGyn Episode No OBEpisode recorded.
--- OUTSIDE RECORDS SUMMARY | 2025-07-07 21:20 | XMS_ITS | Data Portability ---
Author Organization [facility] Address [address] [place] [address] Assessment No assessment recorded. Plan of Treatment Reminders Order Date Submit Date Provider Last Modified By Organization Details Last Modified Time Details Appointments None recorded. Lab noninvasiv e colorectal cancer DNA + occult blood screening, QL, stool 2023 024 [email or web address] 3 [facility], [address], [address], [place], [address], 4 13:16:20 urinalysis , dipstick 2023 024 [facility], [address] [place] [address], [place], [address], 4 14:15:11 culture, urine 2023 024 NAHEED [facility] [address] [place], [address], 4 01:06:52 vaginal pathogens panel, MARGOT+probe, vaginal fluid 2023 024 [email or web address] 3 [facility] ([place]), [address] [place], [address], 4 13:16:04 Referral None recorded. Procedures None recorded. Surgeries None recorded. Imaging MAMMO, screening, digital, bilateral [email or web address] [place] [address] (Central Scheduling), [address] [place] [address] [place], [address], 13:41:56 DEXA [address] ([facility]), [address] [place] [address] [place], [address], 13:42:07 Medication Orders Cipro 500 mg tablet 2023 024 [facility] [address] [place], [address], 14:15:09 Patient TargetsNo targets recorded. Patient InstructionsNo instructions recorded. Reason for Referral None Reported. Results Created Date Observation Date Name Description Value Unit Range Abnormal Flag Note LastModifiedBy Organization Detail LastModifiedTime 06/09/2006/12/2024 URINE CULTU RE, ROUTI NE urine culture, routine Final report abnormal Not Available [facility] ([facility]) [address] [facility], [place], [address], 06/12/2024 01:06:52 06/09/20 24 06/12/2024 URINE CULTU [...] ng units per mL Not Available [facility] ([facility]) [address] [facility], [place], [address], 06/12/2024 01:06:52 06/09/20 24 06/12/2024 URINE CULTU [...] thopr im/Gill lfa S Not Available [facility] ([facility]) [address] [facility], [place], [address], 06/12/2024 01:06:52 06/09/20 24 06/09/2024 urina lysis , dipst ick Leukocytes Small Not Available [address], [address], 06/09/2024 13:34:38 06/09/20 24 06/09/2024 urina lysis , dipst ick Nitrite negati ve Not Available [address], [address], 06/09/2024 13:34:38 06/09/20 24 06/09/2024 urina lysis , dipst ick Urobilinogen .2 Not Available [address], [address], 06/09/2024 13:34:38 06/09/20 24 06/09/2024 urina lysis , dipst ick Protein Negati ve Not Available [address], [address], 06/09/2024 13:34:38 06/09/20 24 06/09/2024 urina lysis , dipst ick pH 5.5 Not Available [address], [address], 06/09/2024 13:34:38 06/09/2006/09/2024 urina lysis , dipst ick Blood Small Not Available [address], [address], 06/09/2024 13:34:38 06/09/2006/09/2024 urina lysis , dipst ick Specific [place] 1.025 Not Available [address], [address], 06/09/2024 13:34:38 06/09/2006/09/2024 urina lysis , dipst ick Ketone Negati ve Not Available [address], [address], 06/09/2024 13:34:38 06/09/2006/09/2024 urina lysis , dipst ick Bilirubin Small Not Available [address], [address], 06/09/2024 13:34:38 06/09/2006/09/2024 urina lysis , dipst ick Glucose Negati ve Not Available [address], [address], 06/09/2024 13:34:38 06/09/2006/09/2024 urina lysis , dipst ick Appearance Clear Not Available [address], [address], 06/09/2024 13:34:38 06/09/2006/0906/09/2024 urina lysis , dipst ick Color Yellow Not Available [place] [address] [facility], [place], [address], 06/09/2024 13:34:38 Result Notes None recorded. Problems Name Problem SNOMED Code Status Onset Date Resolution Date Notes Provider Name and Address Organization Details Recorded Time Blood in urine 42159218 Active 2023 Crispin Boyd MD [address] [place] [address], [address], [employer] 13:44:38 Screening mammography Active 2023 Crispin Boyd MD [address] [place] [address], [address], [employer] 13:44:40 Screening for osteoporosis Active 2023 Crispin Boyd MD [address] [place] [address], [address], [employer] 13:44:42 Screening for malignant neoplasm of colon Active 2023 Crispin Boyd MD [address] [place] [address], [address], [employer] 13:44:44 Relaxation of pelvic floor 057206563 Active 2023 Crispin Boyd MD [address] [place] [address], [address], [employer] 14:15:17 Problem Notes None recorded. Procedures Surgical History Date Name Laterality Status Provider Name and Address Organization Details Recorded Time Pessary Check completed Crispin Boyd MD [address] [place] [address], [address], [employer] 06/10/2024 08:59:35 Imaging Results None recorded. Procedure Notes None recorded. Medical Equipment None Reported. Allergies Allergen ID Allergen Name Allergen Category Reaction Reaction Severity Criticality Documentation Date Start Date Code Code System Note Provider Name and Address Organization Details Recorded Time 23434 Keflex medicatio n Not available Not available Not available 06/09/202464239 7 RxNorm Crystal Lauryn null, [facility]. 4 13:37:42 51115 Betadine medicatio n Not available Not available Not available 06/09/2024 0 RxNorm Crystal Lauryn null, [employer] 4 13:46:32 85831 Hibiclens medicatio n Not available Not available Not available 06/09/2024 26757 2 RxNorm Crystal Lauryn null, [employer] 4 13:47:09 Medications Name Sig Start [...] Updated DateTime 4 154.94 cm 30 kg/m2 38481.7 5 g 72 /min 99 % 130/72 mm[Hg] Crystal Lauryn [facility]. 4 14:22:05 Social History Question Answer Notes LastModified by Organizat ion Details LastModified Time Tobacco Smoking Status Never Smoker Pati gamboa, [facility]. 06/09/2024 13:30:00 What Was The Date Of Your Most Recent Tobacco Screening? 06/09/2024 [email or web address] Information not available 06/09/2024 What Is Your Relationship Status? [email or web address] Information not available 06/09/2024 Has Tobacco Cessation Counseling Been Provided? No [email or web address] Information not available 06/09/2024 Sex: Unknown Functional Status Question Answer Note LastModified by Organization D etails LastModified Time Do you or have you ever used any other forms of tobacco or nicotine? No [email or web address] Information not available 06/09/2024 Mental Status None [...] 50 mcg/0.25mL dose 1 completed Pati gamboa, [facility]. 06/09/2024 13:47:52 COVID-19, mRNA, LNP-S, PF, 100 mcg/0.5mL dose or 50 mcg/0.25mL dose 1 completed Pati gamboa, [facility]. 06/09/2024 13:47:52 COVID-19, mRNA, LNP-S, PF, 100 mcg/0.5mL dose or 50 mcg/0.25mL dose 1 completed Pati Revelese null, [employer] 06/09/2024 13:47:52 pneumococcal polysaccharide PPV23 0 completed Pati Fieldzie null, [facility]. 06/09/2024 13:47:52 Tdap 3 completed Pati gamboa, [employer] 06/09/2024 13:47:52 Pneumococcal conjugate PCV 13 7 completed Pati gamboa, [employer] 06/09/2024 13:47:52 Influenza, high-dose, trivalent, PF 3 completed Pati gamboa, [employer] 06/09/2024 13:47:52 Influenza, high-dose, trivalent, PF 8 completed Pati gamboa, [employer] 06/09/2024 13:47:52 Influenza, high-dose, trivalent, PF 0 completed Pati gamboa, [employer] 06/09/2024 13:47:52 Influenza, high-dose, trivalent, PF 9 completed Pati gamboa, [employer] 06/09/2024 13:47:52 Past Encounters Encounter ID Performer Location Encounter Start Date Encounter Closed Date Diagnosis/Indication Diagnosis SNOMED-CT Code Diagnosis ICD10 Code Diagnosis IMO Codes Diagnosis Note [id number] Crispin Boyd MD [address] [address] 06/09/2024 13:30:51 06/09/2024 14:29:09 Blood in urine 43688121 R31.9 By history the patient notes blood [...] associated third-degr ee cystocele. Screening mammography 24 454989 Z12.31 This 71-year-ol d man with yeah there is no doing better right effusion tell me with patient has not had a mammogram in over 10 years. Monthly self breast exam strongly advised. She has no family history of breast cancer Screening for osteoporosis 481405177 Z13.820 Patient does not recall ever having had a bone density study. I have advised she take 1200 mg calcium daily along with vitamin D3. Screening for malignant neoplasm of colon 849669631 Z12.11 Patient states she had a colonoscop y more than 10 years ago but has not had any follow-up since. She declines a colonoscop y at this point. I have offered her a Cologuard instead ,noting its limitation s. Patient is agreement with this. 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 She originally stated she did not know of this but on further questionin g an attempt was made with pessary placement [address] Valdez in [place]. She was fitted today with a #4 [...] (MEDICARE REPLACEMENT/A DVANTAGE - PPO) Samara Hayward [id number] Samara Hayward 06/09/2024 [place]ICARE [place]: [employer] [facility] Samara Hayward [id number] Samara Hayward Notes Date Note Type [...] in over 10 years. Crispin Boyd MD [address] [place] [address], [address], [facility] [employer] 06/10/2024 09:00:03 OBGyn Episode No OBEpisode recorded.
--- OUTSIDE RECORDS SUMMARY | 2025-07-07 21:20 | XMS_ITS | Encounter Summary ---
Author Organization [employer] ([place], [place], [place], [place], [place]) Address [address] [place] [address] Care Team Providers Care Macaroni Maker Name Role Phone Unavailable Primary Care Provider Unavailabl e Encounter Details Date Type Department Care Team (Late st Contact Info) Description 04/01/2019 Transcribed Document [facility] [place] [facility] [place] [address] ProviderSb MD [address] [place] [address] Social History Tobacco Use Types Packs/Day [...]
--- OUTSIDE RECORDS SUMMARY | 2025-07-07 21:20 | XMS_ITS | Encounter Summary ---
Author Organization [employer] ([place], [place], [place], [place], [place]) Address [address] [place] [address] Care Team Providers Care Morning Caregiver Name Role Phone Unavailable Primary Care Provider Unavailabl e Encounter Details Date Type Department Care Team (Late st Contact Info) Description 03/13/2019 Transcribed Document [facility] [place] On license of [facility] [place] [address] ProviderSb MD [address] [place] [address] Social History Tobacco Use Types Packs/Day [...] 8. CAD- Pt received cardiac clearance from [facility]. Problem List/Past Medical History Ongoing Aortic stenosis [...] Lymph # 1.85 K/uL 03/13/2019 13:57 EDT [place] % 8.6 % 03/13/2019 13:57 EDT [place] # 0.90 K/uL (High) 03/13/2019 13:57 EDT [...] Appearance CLEAR2 03/13/2019 13:57 EDT Urine Specific [place] 1.014 03/13/2019 13:57 EDT Urine pH Dipstick [...]
--- OUTSIDE RECORDS SUMMARY | 2025-07-07 21:20 | XMS_ITS | Encounter Summary ---
Author Organization [employer] ([place], [place], [place], [place], [place]) Address [address] [place] [address] Care Team Providers Care Decorating Equipment Setter Name Role Phone Unavailable Primary Care Provider Unavailabl e Encounter Details Date Type Department Care Team (Late st Contact Info) Description 03/13/2019 Transcribed Document [facility] [place] [facility] [place] [address] ProviderSb MD [address] [place] [address] Social History Tobacco Use Types Packs/Day [...] Source : Measured Height Entry Format : [place] Height, Feet : 5 ft(Converted to: 152 cm, 60 Inch) Height, Inches : 1 Inch(Converted to: 0 ft 1 Inch, 2.54 cm) Clinical Height : 154.94 cm Weight Source : Standing scale Weight Entry Format : [place] Clinical Dosing Weight : 82.27 kg Weight, Pounds : 181 lb Body Surface Area (BSA) : 1.81 m2 Body Mass Index : 34.3 kg/m2 (HI) [place] Body Weight : 47 kg Kassidy Morgan [...]
--- OUTSIDE RECORDS SUMMARY | 2025-07-07 21:20 | XMS_ITS | Encounter Summary ---
Author Organization [employer] ([place], [place], [place], [place], [place]) Address [address] [place] [address] Care Team Providers Care Checkering Machine Operator Name Role Phone Unavailable Primary Care Provider Unavailabl e Encounter Details Date Type Department Care Team (Late st Contact Info) Description 04/01/2019 Transcribed Document [facility] [place] [facility] [place] [address] ProviderSb MD [address] [place] [address] Social History Tobacco Use Types Packs/Day [...] Sonny Jeong RN - 04/01/2019 0:16 EDT Electronically signed by Vinita Fountain Conversion Forest Fire Control Officer Cerner at 11/21/2022 4:22 PM CDT documented in this encounter Plan of Treatment Not on file documented as of this encounter Visit Diagnoses Not on filedocumented in this encounter
--- OUTSIDE RECORDS SUMMARY | 2025-07-07 21:20 | XMS_ITS ---
Author Organization [facility] Address [address] [place] [address] Phone Care Team Providers Care Calculation Clerk Name Role Phone JOHNSON GONCALVES DO Primary Care Provider [phone] Adrián Swenson MD Unavailable [phone] Rafi Roberts MD Unavailable [phone] Reason for Referral Date Encounter Description Provider Reason for Referral 01/24/24 Follow Up Edwardo English MD Referral To Physician Problems Includes: Active, inactive, and resolved Problems All Visits Onset Date Resolved Date Provider Condition S tatus Lower Back Pain 01/07/2024 Constantine Garcia PA-C A ctive Last Documented On 4 1:00PM ; [facility] Joint Pain Hip Left 07/19/2016 Catracho Ruibo MD Active Last Documented On 6 2:14PM ; [facility] Joint Pain Knee 10/14/2013 Catracho Rubio MD A ctive Last Documented On 4 2:09PM ; [facility] SPRAIN ROTATOR CUFF 05/08/2012 Catracho Rubio MD Inactive Last Documented On 4 2:11PM ; [facility], [facility] Plan of Treatment Findings Encounter Date Clinical consultation report Follow Up with Gaurav English MD 01/24/2024 Last Documented On 4 11:36AM ; [facility] Patient screened for future fall risk: documentation of any fall with injury in past year Follow Up with Edwardo English MD 01/24/2024 Last Documented On 4 11:36AM ; [facility], [facility] Referral to physician Follow Up with Edwardo carvajal MD 01/24/2024 Last Documented On 4 11:36AM ; [facility], [facility] Patient screened for future fall risk: documentation of any fall with injury in past year Physician Specified with Constantine Garcia PA-C 01/07/2024 Last Documented On 4 11:55AM ; [facility], [facility] Ordered weight loss diet NEW PROBLEM/EST PT with Catracho Rubio MD 10/14/2013 Last Documented On 4 9:11AM ; [facility], [facility] Pending Tests Order Diagnosis Results Due Ordering P rovider Radiology - MRI MRI Lumbar Spine Low back pain, unspecified 01/21/24 Constantine Garcia PA-C Last Documented On 4 11:55AM ; [facility], [facility] Referrals To Diagnosis Consult for Pain Management Over weight Note: Dr Stone S[facility] // cc Last Documented On 4 8:31AM ; [facility], [facility] Consult with Vascular Overweight Note: Dr Leiva for Vascular Consult /// cc Last Documented On 4 11:36AM ; [facility], [facility] Instructions to patient Lose weight Last Documented On 4 9:47AM ; [facility], [facility] Lose weight Last Documented On 4 2:08PM ; [facility] Instructions for patient see pcp for elevated bp Last Documented On 0 2:24PM ; [facility], [facility] Instructions for patient see pcp for elevated bp Last Documented On 9 1:23PM ; [facility] Instructions for patient see pcp for elevated bp Last Documented On 9 1:05PM ; [facility] Instructions for patient see pcp for elevated bp Last Documented On 9 4:05PM ; [facility] Instructions for patient see pcp for elevated bp and weight management Last Documented On 8 2:03PM ; [facility] Instructions for patient see pcp for elevated bp and weight management Last Documented On 7 1:33PM ; [facility] Instructions for patient see pcp for elevated bp Last Documented On 6 2:13PM ; [facility] No intervention and counseli ng on cessation of tobacco use Last Documented On 6 2:13PM ; [facility] Instructions for patient Pat ient will follow up with PCP for weight loss plan Last Documented On 4 2:21PM ; [facility] Lose weight Last Documented On 4 2:21PM ; [facility] Education and Decision Aids were provided during visit for: No health seminar on smoking cessation Last Documented On 9 1:23PM ; [facility] No health seminar on smoking cessation Last Documented On 9 1:05PM ; [facility] No health seminar on smoking cessation Last Documented On 9 4:05PM ; [facility] No health seminar on smoking cessation Last Documented On 8 2:03PM ; [facility] No health seminar on smoking cessation Last Documented On 7 1:30PM ; [facility] No health seminar on smoking cessation Last Documented On 6 2:13PM ; [facility] Assessments Includes: Assessments for all patient encounters Findings Encounter Date Overweight Follow Up with Edwardo English MD 01/24/2024 Last Documented On 4 11:36AM ; [facility], [facility] Overweight Physician Specified with Constantine Garcia PA-C 01/07/2024 Last Documented On 4 11:55AM ; [facility] Instructions Includes: Instructions for all patient encounters Instructions to patient Lose weight Last Documented On 4 9:47AM ; [facility] Lose weight Last Documented On 4 2:08PM ; [facility] Instructions for patient see pcp for elevated bp Last Documented On 0 2:24PM ; [facility] Instructions for patient see pcp for elevated bp Last Documented On 9 1:23PM ; [facility] Instructions for patient see pcp for elevated bp Last Documented On 9 1:05PM ; [facility], [facility] Instructions for patient see pcp for elevated bp Last Documented On 9 4:05PM ; [facility], [facility] Instructions for patient see pcp for elevated bp and weight management Last Documented On 8 2:03PM ; [facility], [facility] Instructions for patient see pcp for elevated bp and weight management Last Documented On 7 1:33PM ; [facility], [facility] Instructions for patient see pcp for elevated bp Last Documented On 6 2:13PM ; [facility], [facility] No intervention and counseli ng on cessation of tobacco use Last Documented On 6 2:13PM ; [facility], [facility] Instructions for patient Pat ient will follow up with PCP for weight loss plan Last Documented On 4 2:21PM ; [facility] Lose weight Last Documented On 4 2:21PM ; [facility], [facility] Education and Decision Aids were provided during visit for: No health seminar on smoking cessation Last Documented On 9 1:23PM ; [facility], [facility] No health seminar on smoking cessation Last Documented On 9 1:05PM ; [facility], [facility] No health seminar on smoking cessation Last Documented On 9 4:05PM ; [facility], [facility] No health seminar on smoking cessation Last Documented On 8 2:03PM ; [facility], [facility] No health seminar on smoking cessation Last Documented On 7 1:30PM ; [facility], [facility] No health seminar on smoking cessation Last Documented On 6 2:13PM ; [facility], [facility] Medical Equipment - Implanted Devices Includes: Current and historical Devices No Medical Equipment Recorded Medications Includes: Current and historical Medications Current Medications (continue as prescribed) diphenhydrAMINE HCl 5 MG/ML Oral Suspension Reconstitu paras 01/07/2024 Provider: Diagnosis: Last Documented On 4 1:30PM By Radha Stafford ; [facility], [facility] Klor-Con M20 20 MEQ Oral Tablet Extended Release 01/06 Provider: Diagnosis: Last Documented On 4 1:31PM By Radha Stafford ; [facility] Phenazopyridine HCl 200 MG Oral Tablet 01/04/2024 Pr ovider: Diagnosis: Last Documented On 4 1:02PM By Radha Stafford ; [facility] Symbicort 160-4.5 MCG/ACT Inhalation Aerosol Provider: Diagnosis: Last Documented On 4 1:02PM By Radha Stafford ; [facility] Nitrofurantoin Monohyd Macro 100 MG Oral Capsule 12/18 Provider: Diagnosis: Last Documented On 4 1:02PM By Radha Stafford ; [facility] Premarin 0.625 MG/GM Vaginal Cream 12/14/2023 Provid er: Diagnosis: Last Documented On 4 1:02PM By Radha Stafford ; [facility] traMADol HCl 50 MG Oral Tablet 12/14/2023 Provider: MARIIA OLIVAS MD Diagnosis: Last Documented On 4 1:02PM By Radha Stafford ; [facility] Nystatin 240189 UNIT/GM External Ointment 12/03/2023 Provider: Diagnosis: Last Documented On 4 1:02PM By Radha Stafford ; [facility] Atorvastatin Calcium 20 MG Oral Tablet 11/21/2023 Pr ovider: MARIIA OLIVAS MD Diagnosis: Last Documented On 4 1:30PM By Radha Stafford ; [facility] Potassium Chloride Zaina ER 2 0 MEQ Oral Tablet Extended Release 09/08/2023 Provider: Kathleen Sanderson APRN Diagnosis: Last Documented On 4 1:02PM By Radha Stafford ; [facility] Furosemide 20 MG Oral Tablet 08/16/2023 Provider: Kathleen Sanderson APRN Diagnosis: Last Documented On 4 1:02PM By Radha Stafford ; [facility] Ipratropium-Albuterol 0.5-2.5 (3) MG/3ML Inhalat ion Solution 08/01/2023 Provider: Diagnosis: Last Documented On 4 1:31PM By Radha Stafford ; [facility] Past Medications on file Phenazopyridine HCl 200 MG Oral Tablet 12/27/2023 - 01/07/2024 Provider: Kathleen guillermo APRN Diagnosis: Last Documented On 4 1:02PM By Radha Stafford ; [facility] Phenazopyridine HCl 200 MG Oral Tablet 12/18/2023 - Provider: Diagnosis: Last Documented On 4 1:02PM By Radha Stafford ; [facility] traMADol HCl 50 MG Oral Tablet 12/14/2023 - 01/07/2024 Provider: MARIIA OLIVAS MD Diagnosis: Last Documented On 4 1:31PM By Radha Stafford ; [facility] traMADol HCl 50 MG Oral Tablet 10/28/2023 - 01/07/2024 Provider: MARIIA OLIVAS MD Diagnosis: Last Documented On 4 1:02PM By Radha Stafford ; [facility] Nitrofurantoin Monohyd Macro 100 MG Oral Capsule 09/20/2023 - 01/07/2024 Provider: Kathleen guillermo APRN Diagnosis: Last Documented On 4 1:02PM By Radha Stafford ; [facility] Valium 5 MG Oral Tablet 09/26/2019 - 02/22/2021 Provid er: Catracho Rubio MD Diagnosis: Take one pill 1 hour prior t o MRI and second pill right befor MRI. Last Documented On 1 1:43PM By Janelle Pendleton ; [facility] Pinehurst 5-325MG Oral Tablet 04/17/2019 - 02/22/2021 Prov ider: Antoni Quiroga MD Diagnosis: 1 every 4 - 6 hours as needed Last Documented On 1 1:43PM By Janelle Pendleton ; [facility] Xarelto 10MG Oral Tablet 03/28/2019 - 02/22/2021 Provi amado: Catracho Rubio MD Diagnosis: once a day for first seven d ays after joint replacement, then transiition to aspirin Last Documented On 1 1:43PM By Janelle Pendleton ; [facility], [facility] Aspirin 325MG Oral Tablet 03/28/2019 - 02/22/2021 Prov ider: Catracho Rubio MD Diagnosis: twice a day Last Documented On 1 1:43PM By Janelle Pendleton ; [facility], [facility] Percocet 7.5-325MG Oral Tablet 03/28/2019 - 02/22/2021 Provider: Catracho Rubio MD Diagnosis: [id number] prn post op pain Last Documented On 1 1:43PM By Janelle Pendleton ; [facility] Zofran 4MG Oral Tablet 03/28/2019 - 02/22/2021 Provide r: Catracho Rubio MD Diagnosis: 1 tab every 6 hrs prn pain Last Documented On 1 1:43PM By Janelle Pendleton ; [facility] Mupirocin 2% External Ointment 12/04/2018 - 02/22/2021 Provider: Catracho Rubio MD Diagnosis: take as directed Apply cream twice a day to each nostril five days prior to surgery. Last Documented On 1 1:43PM By Janelle Pendleton ; [facility] Gabapentin 100MG Oral Capsule 12/02/2018 - 01/07/2024 Provider: Diagnosis: Last Documented On 4 1:01PM By Radha Stafford ; [facility] EnovaRX-traMADol 5% External Cream 11/29/2018 - 2023 Provider: Diagnosis: Last Documented On 4 1:01PM By Radha Stafford ; [facility] Cyanocobalamin 2500MCG Subli ngual Tablet Sublingual 11/22/2018 - 01/07/2024 Provider: MARIIA Gaytan Diagnosis: Last Documented On 4 1:01PM By Radha Stafford ; [facility] Bystolic 2.5MG Oral Tablet 11/18/2018 - 01/07/2024 Pro vider: MARIIA OLIVAS MD Diagnosis: Last Documented On 4 1:01PM By Radha Stafford ; [facility] clonazePAM 0.25MG Oral Table t Disintegrating 11/11/2018 - 01/07/2024 Provider: MARIIA Gaytan Diagnosis: Last Documented On 4 1:01PM By Radha Stafford ; [facility] Plavix 75 MG Tablet 07/19/2016 - 01/07/2024 Provider: Diagnosis: Last Documented On 4 1:01PM By Radha Stafford ; [facility] Aspirin 81 MG Tablet Delayed Release 07/19/2016 - 10/2023 Provider: Diagnosis: Last Documented On 4 1:01PM By Radha Stafford ; [facility] Bystolic 5 MG Tablet 06/27/2016 - 01/07/2024 Provider: Diagnosis: Last Documented On 4 1:01PM By Radha Stafford ; [facility] ClonazePAM 2 MG Tablet 06/12/2016 - 01/07/2024 Provide r: JOHNSON GONCALVES DO Diagnosis: Last Documented On 4 1:01PM By Radha Stafford ; [facility] Klor-Con 10 10 MEQ Tablet Extended Release 04/15/2016 - 01/07/2024 Provider: JOHNSON GONCALVES DO Diagnosis: Last Documented On 4 1:01PM By Radha Stafford ; [facility] Linzess 145 MCG OR CAPS 10/14/2013 - 01/07/2024 Provid er: Diagnosis: Last Documented On 4 1:01PM By Radha Stafford ; [facility] Ultram 50 MG OR TABS 10/14/2013 - 01/07/2024 Provider: Diagnosis: Last Documented On 4 1:01PM By Radha Stafford ; [facility] MOTRIN 800 MG OR TABS 05/08/2012 - 01/07/2024 Provider : Diagnosis: Last Documented On 4 1:01PM By Radha Stafford ; [facility] Lisinopril 20 MG OR TABS 05/08/2012 - 01/07/2024 Provi amado: Diagnosis: Last Documented On 4 1:01PM By Radha Stafford ; [facility] Percocet 7.5-325 MG OR TABS 11/02/2011 - 02/22/2021 Pr ovider: Catracho Rubio MD Diagnosis: mm Last Documented [...] On 1 1:42PM By Janelle Pendleton ; [facility] Percocet 7.5-325 MG OR TABS 09/05/2011 - 02/22/2021 Pr ovider: Catracho Rubio MD Diagnosis: Last Documented On 1 1:42PM By Janelle Pendleton ; [facility] Lortab 7.5-500 MG OR TABS 09/01/2011 - 02/22/2021 Prov ider: Catracho Rubio MD Diagnosis: [facility] [phone] k/michaelb Last Documented On 1 1:42PM By Janelle Pendleton ; [facility] Percocet 5-325 MG OR TABS 08/23/2011 - 02/22/2021 Prov ider: Catracho Rubio MD Diagnosis: mm Last Documented On 1:42PM By Janelle Pendleton ; [facility] Percocet 5-325 MG OR TABS 08/17/2011 - 02/22/2021 Prov ider: Catracho Rubio MD Diagnosis: mm Last Documented On 1:43PM By Janelle Pendleton ; [facility] traMADol HCl 50 MG OR TABS 08/11/2011 - 02/22/2021 Pro vider: Catracho Rubio MD Diagnosis: [phone] cvs df Last Documented On 1 1:43PM By Janelle Pendleton ; [facility] traMADol HCl 50 MG OR TABS 07/21/2011 - 02/22/2021 Pro vider: Catracho Rubio MD Diagnosis: [facility] [phone] jrk.df Last Documented On 1 1:42PM By Janelle Pendleton ; [facility] traMADol HCl 50 MG OR TABS 07/06/2011 - 02/22/2021 Pro vider: Catracho Rubio MD Diagnosis: tid prn pain Last Documented On 1 1:42PM By Janelle Pendleton ; [facility] Relafen 500 MG OR TABS 05/09/2011 - 02/22/2021 Provide r: Catracho Rubio MD Diagnosis: mmh Last Documented On 1 1:42PM By Janelle Pendleton ; [facility] Valium 5 MG OR TABS 06/16/2010 - 02/22/2021 Provider: Catracho Rubio MD Diagnosis: take one pill 1 hour prior t o MRI and second pill right befor MRI. [facility] [phone] jrk Last Documented On 1 1:42PM By Janelle Pendleton ; [facility] Lortab 5-500 MG OR TABS 12/03/2008 - 02/22/2021 Provid er: Catracho Rubio MD Diagnosis: radha irene [phone] jrk/jsb Last Documented On 1 1:42PM By Janelle Pendleton ; [facility] Lortab 5-500 MG OR TABS 11/19/2008 - 02/22/2021 Provid er: Catracho Rubio MD Diagnosis: radha irene [phone] jsb Last Documented On 1 1:42PM By Janelle Pendleton ; [facility] Percocet 5-325 MG OR TABS 11/05/2008 - 02/22/2021 Prov ider: Catracho Rubio MD Diagnosis: post op med//mmh Last Documented On 1 1:42PM By Janelle Pendleton ; [facility] Percocet 5-325 MG OR TABS 10/26/2008 - 02/22/2021 Prov ider: Catracho Rubio MD Diagnosis: post op med//mmh Last Documented On 1 1:42PM By Janelle Pendleton ; [facility] Medications Administered Includes: Administered Medications in patient's chart No Administered Medications Recorded Results Includes: Results from 07/07/2024 through 07/07/2025 No Results Recorded For Specified Dates History of Present Illness History of Present Illness not supported for this document type No History of Present Illness Recorded Social History Description Last Updated No recent change in diet 01/07/2024 Last Documented On 4 11:55AM ; [facility] Not a current smoker. 01/07/2024 Last Documented On 4 11:55AM ; [facility] Non-smoker 02/22/2021 Last Documented On [...] 10/14/2013 Last Documented On 4 9:11AM ; [facility] Procedures and Surgical History Surgical History Last Updated History of total hip replacement Left 01/24/2024 Last Documented On 4 11:36AM ; [facility] Past Surgical History: left carpal tunne l ~right and left arm rotator cuff 01/24/2024 Last Documented On 4 11:36AM ; [facility] History of History of Gallbladder 2023 Last Documented On 4 11:55AM ; [facility] History of appendectomy 09/24/2019 Last Documented On 0 3:04PM ; [facility] History of back surgery 09/24/2019 Last Documented On 0 3:04PM ; [facility] History of hysterectomy 09/24/2019 Last Documented On 0 3:04PM ; [facility] Medical History Includes: Medical History in patient's chart Description Last Updated History of History of Blood Transfusion 01/24/2024 Last Documented On 4 11:36AM ; [facility] History of asthma 01/07/2024 Last Documented On 4 11:55AM ; [facility] History of Hypertension 01/07/2024 Last Documented On 4 11:55AM ; [facility] History of Irregular Heartbeat 4 Last Documented On 4 11:55AM ; [facility] History of Liver Disease 01/07/2024 Last Documented On 4 11:55AM ; [facility] History of Sleep Apnea 01/07/2024 Last Documented On 4 11:55AM ; [facility] left carpal tunnel ~right and left arm r otator cuff ~blood transfusion 09/24/2019 Last Documented On 0 3:04PM ; [facility] A recent immunization for pneumococcal p neumonia 06/201609/24/2019 Last Documented On 0 3:04PM ; [facility] Arthritic joint problems 09/24/2019 Last Documented [...] 0 Last Documented On 0 3:04PM ; [facility] Family history of rheumatoid arthritis m other 09/24/2019 Last Documented On 0 3:04PM ; [facility] Review of Systems Review of [...] ve Last Documented On 4 9:47AM ; [facility] Keflex Allergy 10/14/2013 Active Last Documented On 4 9:47AM ; [facility] Betadine Allergy 10/14/2013 Active Last Documented On 4 9:47AM ; [facility] Bactroban Allergy 03/28/2019 Active Last Documented On 4 9:47AM ; [facility] Insurance Includes: Active Insurance Policies Plan Name Member ID Group # Subscriber Relationship Effect etelvina Dates 1 - [employer] [id number] Samara [place] Self 07/16/2019 - Unknown Clinical Notes Includes: Signed Clinical Notes starting from 07/20/2022 No Clinical Notes Recorded
--- OUTSIDE RECORDS SUMMARY | 2025-07-07 21:20 | XMS_ITS | Encounter Summary ---
Author Organization [employer] ([place], [place], [place], [place], [place]) Address [address] [place] [address] Care Team Providers Care Tail Trimmer Name Role Phone Unavailable Primary Care Provider Unavailabl e Encounter Details Date Type Department Care Team (Late st Contact Info) Description 04/01/2019 Transcribed Document [facility] [place] Family Medicine [facility] [place] [address] ProviderSb MD [address] [place] [id number] Social History Tobacco Use Types Packs/Day [...] Spiritual Care Spiritual Care Referred by : Electric Knife Operator initiated Reason for Visit : Initial Ministry [...] Acuity : Medium Spiritual Framework : Unknown Christianity Preference : Unknown CAMILA LUA, Electric Knife Operator-Non Cert - 04/01/2019 20:43 EDT documented in this encounter Plan of Treatment Not on file documented as of this encounter Visit Diagnoses Not on filedocumented in this encounter
--- OUTSIDE RECORDS SUMMARY | 2025-07-07 21:20 | XMS_ITS | Clinical Summary ---
Author Organization [facility] Address [facility] [place] [place] [address] Care Team Providers Care Roustabout Crew Leader Name Role Phone Khadar Quintana MD Primary Care Provider + [phone] Source Comments This information has been disclosed [...] therelease of HIV test results or diagnoses. [id number] Allergies Active Allergy Reactions Criticality [...] Insurance [employer] P[employer] MEDICARE Care Teams Roustabout Crew Leader Relationship Specialty Start Date End Date Khadar Quintana MD [address] [place] [address] PCP - General Internal Medicine 05/30/22
--- OUTSIDE RECORDS SUMMARY | 2025-07-07 21:20 | XMS_ITS | Encounter Summary ---
Author Organization [employer] ([place], [place], [place], [place], [place]) Address [address] [place] [address] Care Team Providers Care Reviewer Sales Name Role Phone Unavailable Primary Care Provider Unavailabl e Encounter Details Date Type Department Care Team (Late st Contact Info) Description 04/01/2019 Transcribed Document [facility] [place] Family Medicine [facility] [place] [address] ProviderSb MD [address] [place] [id number] Social History Tobacco Use Types Packs/Day [...] Historical ProviderMD - 04/01/2019 2:00 AM CDT Last Cleaner Details Entered On: 04/01/2019 1:12 EDT Performed [...] Sonny Jeong RN - 04/01/2019 1:12 EDT Electronically signed by Vinita Fountain Conversion Human Resources Receptionist Fernando at 11/21/2022 4:27 PM CDT documented in this encounter Plan of Treatment Not on file documented as of this encounter Visit Diagnoses Not on filedocumented in this encounter
[2025-07-07] MEDS: KETOROLAC 30MG/ML VIAL 30 MG IV (22:04)
[2025-07-07 22:22] LABS: Hematocrit 43.1 % (37.0-47.0); Hemoglobin 14.4 g/dL (12.2-16.2); Immature Granulocytes % 0.3 %; Mean Corpuscular HGB Conc 33.4 g/dL (31.8-35.4); Mean Corpuscular Hemoglobin 31.9 pg (27.0-31.2); Mean Corpuscular Volume 95.6 fl (81-99); Nucleated Red Blood Cells % 0 %; Platelet Count 257 K/mm3 (142-424); Red Blood Count 4.51 M/mm3 (4.20-5.40); Red Cell Distribution Width-SD 47.0 fL; White Blood Count 8.9 K/mm3 (4.8-10.8)
[2025-07-07 22:27] LABS: Albumin Level 3.8 g/dl (3.5-5.0); Chloride 101 mmol/L (98-107); Potassium 3.2 mmoL/L (3.5-5.1); Sodium 140 mmol/L (136-145)
[2025-07-07 22:29] LABS: Blood Urea Nitrogen 20 mg/dl (7-17); Creatinine Clearance Estimated 69 mL/min (50-200); Creatinine,Serum 0.80 mg/dl (0.52-1.04); Estimated Glomerular Filt Rate 69 ml/min (>60); GFR (African American) 84 ML/MIN (>60)
--- NOTE | 2025-07-07 22:29 | PC.NURSE ---
pt placed on purewick. fresh dai and pull-up put on at this time
[2025-07-07 22:30] LABS: Alanine Aminotransferase 21 U/L (12-78); Albumin/Globulin Ratio 1.3 (1.1-1.8); Alkaline Phosphatase 91 U/L (38-126); Anion Gap 12.2 mEq/L (5-15); Aspartate Amino Transferase 32 U/L (14-36); Bilirubin,Total 0.5 mg/dl (0.2-1.3); Calcium 8.8 mg/dl (8.4-10.2); Carbon Dioxide 30 mmol/L (22.0-30.0); Globulin 2.9 g/dL (1.3-3.2); Glucose 99 mg/dl (74-100); Magnesium 2.1 mg/dl (1.6-2.3); Total Protein,Serum 6.7 g/dl (6.3-8.2)
--- NOTE | 2025-07-07 22:30 | ECG_ITS ---
APPROVED REPORT Exam: Resting ECG HR:83 bpm ECG Measurements Heart Rate 83 AXES GA 127 P 68 QRSd 86 QRS 33 QT 382 T 68 QTc 422 Conclusion SINUS RHYTHM NORMAL ECG UNCONFIRMED REPORT Electronically signed by : DIONISIO BUI, 07/09/2025 05:00:12
[2025-07-07 22:31] LABS: Acetaminophen < 10 ug/ml (10-30); Salicylate < 1.0 mg/dL (2.0-20.0)
--- NOTE | 2025-07-07 22:56 | PC.NURSE ---
Report called to Radha VIZCARRA on [facility]
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
[2025-07-07] MEDS: VANCOMYCIN HCL 2,000 MG in 0.9 % SODIUM CHLORIDE 250 ML 125 MG IV (23:14)
--- NOTE | 2025-07-07 23:38 | PC.NURSE ---
Patient arrived to floor via stretcher from ED at 23:35.
[2025-07-08] VITALS: BP 150/89; PULSE 89; RESP 17; TEMP 36.8; O2SAT 97; BMI 24.3
[2025-07-08] MEDS: POTASSIUM CHLORIDE 10MEQ CAPSULE.ER 20 MEQ PO
--- NOTE | 2025-07-08 | CT_ITS ---
PROCEDURE INFORMATION: Exam: CT Left Lower Extremity Without Contrast, Ankle Exam date and time: 07/08/2025 3:57 PM Age: 80 years old Clinical indication: Other: Left lower extremity swelling, redness TECHNIQUE: Imaging protocol: CT of the left lower extremity without contrast was performed. Exam focused on the ankle. Radiation optimization: All CT scans at this facility use at least one of these dose optimization techniques: automated exposure control; mA and/or kV adjustment per patient size (includes targeted exams where dose is matched to clinical indication); or iterative reconstruction. COMPARISON: No relevant prior studies available. FINDINGS: Bones/joints: No acute osseous abnormality. No ankle joint effusion. Mild osteoarthritis of the ankle joint and midfoot. Soft tissues: Diffuse subcutaneous induration throughout the visualized ankle and foot. No organized collection/abscess. No soft tissue gas. IMPRESSION: Diffuse subcutaneous induration throughout the visualized left ankle and foot, compatible with cellulitis in the appropriate clinical context. No organized collection/abscess or soft tissue gas to suggest necrotizing fasciitis. PROCEDURE INFORMATION: Exam: CT Left Lower Extremity Without Contrast, Foot Exam date and time: 07/08/2025 3:57 PM Age: 80 years old Clinical indication: Other: Left lower extremity swelling, redness TECHNIQUE: Imaging protocol: CT of the left lower extremity without contrast was performed. Exam focused on the foot. Radiation optimization: All CT scans at this facility use at least one of these dose optimization techniques: automated exposure control; mA and/or kV adjustment per patient size (includes targeted exams where dose is matched to clinical indication); or iterative reconstruction. COMPARISON: CR XR FOOT LT MIN 3V 07/03/2025 7:15 PM FINDINGS: Bones/joints: No acute osseous abnormality. No ankle joint effusion. Mild osteoarthritis of the ankle joint and midfoot. Soft tissues: Diffuse subcutaneous induration throughout the visualized ankle and foot. No organized collection/abscess. No soft tissue gas.
--- NOTE | 2025-07-08 | CT_ITS ---
PROCEDURE INFORMATION: Exam: CT Left Lower Extremity Without Contrast, Knee Exam date and time: 07/08/2025 3:47 PM Age: 80 years old Clinical indication: Other: Left lower extremity swelling, redness TECHNIQUE: Imaging protocol: CT of the left lower extremity without contrast was performed. Exam focused on the knee. Radiation optimization: All CT scans at this facility use at least one of these dose optimization techniques: automated exposure control; mA and/or kV adjustment per patient size (includes targeted exams where dose is matched to clinical indication); or iterative reconstruction. COMPARISON: No relevant prior studies available. FINDINGS: Bones/joints: Diffusely decreased bone density. No acute fracture or dislocation. Mild osteoarthritis of the left knee. No joint effusion. Soft tissues: Mild subcutaneous induration along the posterior and medial knee. No organized collection/abscess. No soft tissue gas IMPRESSION: Mild subcutaneous induration along the posterior and medial knee, compatible with cellulitis in the appropriate clinical context.
--- NOTE | 2025-07-08 | CT_ITS ---
PROCEDURE INFORMATION: Exam: CT Left Lower Extremity Without Contrast, Leg Exam date and time: 07/08/2025 3:49 PM Age: 80 years old Clinical indication: Other: Left lower extremity swelling, redness TECHNIQUE: Imaging protocol: CT of the left lower extremity without contrast was performed. Exam focused on the lower leg. Radiation optimization: All CT scans at this facility use at least one of these dose optimization techniques: automated exposure control; mA and/or kV adjustment per patient size (includes targeted exams where dose is matched to clinical indication); or iterative reconstruction. COMPARISON: CR XR TIBIA FIBULA LT 2V 07/03/2025 7:15 PM FINDINGS: Bones/joints: No acute osseous abnormality. Soft tissues: Diffuse subcutaneous induration throughout the left lower leg. No soft tissue gas. No organized collection/abscess. Probable superficial wound along the anterior mid garvey. IMPRESSION: Diffuse subcutaneous induration throughout the left lower leg, compatible with cellulitis in the appropriate clinical context.
[2025-07-08] MEDS: OLANZapine 5 MG ODT TABLET SL (00:41)
[2025-07-08] MEDS: CEFEPIME HCL 1 GM in 0.9 % SODIUM CHLORIDE 50 ML IV ×3 (00:42→23:22)
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
[2025-07-08] MEDS: HYDROCODONE/APAP 5/325 MG TABLET 1 TAB PO (02:29)
--- NOTE | 2025-07-08 02:44 | PC.NURSE ---
patient requested clonazepam when arriving to the floor and t/o night, daughter stated she thought her mom may have took pills before coming in [facility], this being one of them. patient was administered zyprexa for sleep PER hospitalist. daughter also reported patient typically stays up til 3-4AM, that she is a nightowl and this is her BASELINE.
[2025-07-08] MEDS: VANCOMYCIN CONSULT REQUEST 1 EACH NOTAPPLIC (03:03)
[2025-07-08 04:00] VITALS: BP 123/58; PULSE 82; RESP 16; TEMP 36.7; O2SAT 93; BMI 24.3
[2025-07-08 06:21] LABS: Hematocrit 35.9 % (37.0-47.0); Immature Granulocytes % 0.1 %; Mean Corpuscular HGB Conc 32.6 g/dL (31.8-35.4); Mean Corpuscular Hemoglobin 31.2 pg (27.0-31.2); Mean Corpuscular Volume 95.7 fl (81-99); Nucleated Red Blood Cells % 0 %; Platelet Count 190 K/mm3 (142-424); Red Blood Count 3.75 M/mm3 (4.20-5.40); Red Cell Distribution Width-SD 47.1 fL; White Blood Count 7.0 K/mm3 (4.8-10.8)
[2025-07-08 06:47] LABS: Chloride 105 mmol/L (98-107); Sodium 142 mmol/L (136-145)
[2025-07-08 06:50] LABS: Anion Gap 13.0 mEq/L (5-15); Blood Urea Nitrogen 20 mg/dl (7-17); Carbon Dioxide 27 mmol/L (22.0-30.0); Creatinine Clearance Estimated 48 mL/min (50-200); Creatinine,Serum 0.90 mg/dl (0.52-1.04); Estimated Glomerular Filt Rate 60 ml/min (>60); GFR (African American) 73 ML/MIN (>60)
[2025-07-08 06:51] LABS: Calcium 8.4 mg/dl (8.4-10.2); Glucose 107 mg/dl (74-100)
--- NOTE | 2025-07-08 06:55 | PC.NURSE ---
notified hospitalist of critical K 3.0
[2025-07-08 06:56] LABS: C-Reactive Protein 2.4 mg/L (0-4); Potassium 3.0 mmoL/L (3.5-5.1)
--- NOTE | 2025-07-08 07:50 | EXP.PHA.CONS ---
Pharmacy Consult Date: 07/08/25 Time: 07:51 Referring provider: DR. CASTRO Reason for Consult:: VANCOMYCIN DOSING Allergies Allergy/AdvReac Type Severity Reaction Status Date / Time adhesive tape Allergy Severe Hives Verified 07/06/25 15:10 chlorhexidine (From Allergy Severe RASH Verified 07/06/25 15:10 Hibiclens) Iodinated Contrast Media Allergy Intermediate Unknown Verified 07/06/25 15:10 (IODINATED CONTRAST MEDIA - allergy IV DYE) reaction povidone-iodine (From Allergy Intermediate I-RASH Verified 07/06/25 15:10 BETADINE) cephalexin Allergy Unknown Unknown Verified 07/06/25 15:10 allergy reaction bismuth tribromophenate Allergy Rash Verified 07/06/25 15:10 (From Xeroform) petrolatum,white (From Allergy Rash Verified 07/06/25 15:10 Xeroform) Home Medications ?Medication ?Instructions ?Recorded ?Confirmed ?Type sennosides 8.6 mg tablet (senna) 8.6 mg PO BID PRN Constipation 02/26/19 07/08/25 History albuterol sulfate 90 mcg/actuation 2 inh inhalation Q6H PRN shortness 08/28/24 07/08/25 Rx aerosol inhaler of breath or wheezing 90 days #8.5 grams azelastine 137 mcg (0.1 %) nasal 2 spray intranasal HS PRN 02/18/25 07/08/25 History spray Congestion lisinopril 10 mg tablet 10 mg PO BID #180 tabs 03/19/25 07/08/25 Rx potassium chloride 20 mEq 20 meq PO DAILY #90 tabs 05/21/25 07/08/25 Rx tablet,extended release(part/cryst) (Klor-Con M) furosemide 40 mg tablet (Lasix) 40 mg PO DAILY Swelling of legs 06/25/25 07/08/25 Rx #30 tabs triamcinolone acetonide 0.1 % 1 applic topical TID Apply to rash 06/25/25 07/08/25 Rx topical cream on right leg but avoid wound #453.6 grams clonazepam 1 mg tablet 1 mg PO BID PRN Nervousness #90 06/26/25 07/08/25 Rx tabs levofloxacin 750 mg tablet 750 mg PO DAILY #7 tabs 07/06/25 07/08/25 Rx mupirocin 2 % topical ointment 1 applic topical TID #44 grams 07/06/25 07/08/25 Rx (Centany) lisinopril 10 mg tablet 10 mg PO BID 07/08/25 07/08/25 History New Prescriptions to Start Prescriptions: Height: 1.65 m Weight: 66.361 kg Laboratory Results:: Laboratory Results - last 24 hr 07/07/25 22:13: WBC 8.9, RBC 4.51, Hgb 14.4, Hct 43.1, MCV 95.6, MCH 31.9 H, MCHC 33.4, RDW 13.3, Plt Count 257, MPV 10.8 H, Neut % (Auto) 67.9, Lymph % (Auto) 14.2, Greer % (Auto) 8.3, Eos % (Auto) 8.7, Baso % (Auto) 0.6, Neut # (Auto) 6.0, Lymph # (Auto) 1.3, Greer # (Auto) 0.7, Eos # (Auto) 0.8 H, Baso # (Auto) 0.1, ESR 16, Sodium 140, Potassium 3.2 L, Chloride 101, Carbon Dioxide 30, Anion Gap 12.2, BUN 20 H, Creatinine 0.80, Estimated Creat Clear 69, Estimated GFR 69, Est GFR ( Amer) 84, Glucose 99, Calcium 8.8, Magnesium 2.1, Total Bilirubin 0.5, AST 32, ALT 21, Alkaline Phosphatase 91, Total Protein 6.7, Albumin 3.8, Globulin 2.9, Albumin/Globulin Ratio 1.3, Salicylates < 1.0 L, Acetaminophen < 10 L, Plasma/Serum Alcohol < 10 07/08/25 05:57: WBC 7.0, RBC 3.75 L, Hct 35.9 L, MCV 95.7, MCH 31.2, MCHC 32.6, RDW 13.2, Plt Count 190 D, MPV 10.8 H, Neut % (Auto) 52.3, Lymph % (Auto) 22.7, Greer % (Auto) 9.6 H, Eos % (Auto) 14.7 H, Baso % (Auto) 0.6, Neut # (Auto) 3.6, Lymph # (Auto) 1.6, Greer # (Auto) 0.7, Eos # (Auto) 1.0 H, Baso # (Auto) 0.0, Sodium 142, Potassium 3.0 L, Chloride 105, Carbon Dioxide 27, Anion Gap 13.0, BUN 20 H, Creatinine 0.90, Estimated Creat Clear 48, Estimated GFR 60, Est GFR ( Amer) 73, Glucose 107 H, Calcium 8.4, C-Reactive Protein 2.4 Medical History: Medical History (Updated 07/07/25 @ 23:16 by Harpal Arita APRN) Rash and nonspecific skin eruption Cystocele with prolapse Vulvovaginal pain Vulvar lesion Meniere disease CAD (coronary artery disease) Claudication Asthma Dyspnea on exertion Cataract Sleep apnea Migraine Anxiety Osteoarthritis History of diverticulitis Edema History of anemia Foot pain, bilateral Multiple pulmonary nodules Wheezing Hypertension Dizziness Assessment and Plan Assessment and plan all Dx Assessment and Plan for all problems:: Pharmacokinetic dosing service Objective: Patient: Floor: Age: 80 yo Serum creatinine: 1 mg/dL Height: 65.0 Inches Weight (kg): 66.3 Assessment: IBW (kg): 57.00 Dosing wt(kg): 66.3 Estimated Creatinine clearance (ml/min): 41.0 CRCL method: Cockcroft and Gault using ibw(default). Drug selected: Vancomycin Loading dose (mg): 0 Vd (liters): 53.0 (factor used: 0.8 L/kg) Jorge Luis (hr-1): 0.038 Half life (hrs): 18.24 Recommended dose: 1000 mg Interval: 24 hrs Infusion time (hrs): 2.0 Predicted peak (mcg/mL): 30.4 Predicted trough (mcg/mL): 13.18 Total body weight is being used for vancomycin dosing. Recommendations: PATIENT RECEIVED VANCOMYCIN 2000 MG X1 DOSE OVERNIGHT. RECOMMEND STARTING Vancomycin 1000 mg q 24 hrs with an expected Cpeak of 30.4 mcg/ml and an expected Ctrough of 13.18 mcg/ml. ----Vanco only - ignore for aminoglycosides----- CLvanco= 2.01 L/hr AUC 0-24 /ROBERTH Data: ROBERTH 0.5 mcg/mL: AUC/ROBERTH: 995.0 ROBERTH 1.0 mcg/mL: AUC/ROBERTH: 497.5 --------- ROBERTH 1.5 mcg/mL: AUC/ROBERTH: 331.7 ROBERTH 2.0 mcg/mL: AUC/ROBERTH: 248.8
[2025-07-08 08:00] VITALS: BP 136/54; PULSE 80; RESP 18; TEMP 36.7; O2SAT 95
[2025-07-08] MEDS: POTASSIUM CHLORIDE 20MEQ TAB 40 MEQ PO ×3 (08:20→16:25)
--- NOTE | 2025-07-08 08:44 | HMH.PHAAMS2 ---
- Antimicrobial Stewardship Review culture & sensitivity review Stewardship interventions: culture & sensitivity review (ADMITTED WITH CELLULITIS, ON VANCOMYCIN AND CEFEPIME, AFEBRILE AND WBC WNL, CX STILL PENDING.)
--- NOTE | 2025-07-08 09:00 | CA_ITS ---
FINAL REPORT TECHNIQUE: Ultrasound images of the deep venous system were obtained from the left groin to the calf veins. CLINICAL HISTORY: cellulitis LLE, HTN , redness and edema LLE FINDINGS: The deep venous system is normally compressible. Normal flow is identified. IMPRESSION: No evidence of left lower extremity DVT. Reviewed, Interpreted and Dictated by Pau Cabrera MD Transcribed by Enedina Abarca Authenticated and [facility]
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
[2025-07-08 09:50] LABS: Hemoglobin 11.7 g/dL (12.2-16.2)
[2025-07-08 09:58] LABS: Procalcitonin 0.089 ng/mL (0.0-2.0)
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
--- NOTE | 2025-07-08 13:28 | HMH.ITSTN ---
SPOKE WITH RN AT 11AM ABOUT PATIENT BEING ALLERGIC TO CONTRAST, SHE IS GOING TO CALL US BACK REGARDING THIS ORDER.
--- NOTE | 2025-07-08 13:40 | SW/DCPLANNER ---
Addendum entered by Lona Frances 07/10/25 14:41: [facility] able to accept patient. Saskia AMBROCIO Clinical Research Physician Addendum entered by Lona Frances 07/10/25 12:31: I faxed patient's information to [facility] and will update once i hear back. Saskia AMBROCIO Clinical Research Physician Addendum entered by Malathi Esposito 07/10/25 11:17: I spoke w/ patient and her this AM at length regarding discharge plans. Patient and both voiced they are not interested in placement. prefer patient return home w/ home health services (no agency preference). stated that he does feel safe to return home w/ patient. stated that he does have all DME needed at home. CM will continue to follow up w/ patient and family to set up home health at time of discharge. Per MD patient may be ready for discharge over the weekend. Original Note: I spoke w/ this patient regarding plans once medically stable for discharge. Patient was alert and oriented during our discussion. PT/OT evaluated patient this AM and recommended SNF level of care. Behavioral Health was also consulted on this patient and recommended outpatient follow up. Patient's has been present in patient's room most of the day today. Patient was alone during my conversation and stated that she is not interested in placement at this time. Patient stated that she feels safe to return home at time of discharge. Patient and I discussed the importance of SNF level of care due to the physical need for it. Patient again refused SNF but is considering home health services. I also provided patient w/ a private sitter's list due to the need of assistance at home and willing to pay privately. Patient voiced that she is not a candidate for Medicaid services at this time. CM will continue to follow up w/ patient during hospital stay. OT was entering room to work w/ patient this afternoon during my visit.
--- NOTE | 2025-07-08 15:04 | P.PN_ITS ---
Subjective *Date: 07/08/25 *Time: 15:04 Interval history: Patient very anxious at this time, appears to be at baseline. Tearful, would like to have her Klonopin restarted and he was. Continue IV vancomycin, Zosyn for cellulitis. Follow-up wound cultures. Exam Data for Last 24 hours Vital signs and Labs for Last 24 Hours: Temp Pulse Resp BP Pulse Ox O2 Del Method 98.1 F 80 18 136/54 L 95 Room Air 07/08/25 08:00 07/08/25 08:00 07/08/25 08:00 07/08/25 08:00 07/08/25 08:00 07/08/25 13:00 Laboratory Results - last 24 hr 07/07/25 22:13: WBC 8.9, RBC 4.51, Hgb 14.4, Hct 43.1, MCV 95.6, MCH 31.9 H, MCHC 33.4, RDW 13.3, Plt Count 257, MPV 10.8 H, Neut % (Auto) 67.9, Lymph % (Auto) 14.2, [place] % (Auto) 8.3, Eos % (Auto) 8.7, Baso % (Auto) 0.6, Neut # (Auto) 6.0, Lymph # (Auto) 1.3, [place] # (Auto) 0.7, Eos # (Auto) 0.8 H, Baso # (Auto) 0.1, ESR 16, Sodium 140, Potassium 3.2 L, Chloride 101, Carbon Dioxide 30, Anion Gap 12.2, BUN 20 H, Creatinine 0.80, Estimated Creat Clear 69, Estimated GFR 69, Est GFR ( Amer) 84, Glucose 99, Calcium 8.8, Magnesium 2.1, Total Bilirubin 0.5, AST 32, ALT 21, Alkaline Phosphatase 91, Total Protein 6.7, Albumin 3.8, Globulin 2.9, Albumin/Globulin Ratio 1.3, Salicylates < 1.0 L, Acetaminophen < 10 L, Plasma/Serum Alcohol < 10 07/08/25 05:57: WBC 7.0, RBC 3.75 L, Hgb 11.7 L D, Hct 35.9 L, MCV 95.7, MCH 31.2, MCHC 32.6, RDW 13.2, Plt Count 190 D, MPV 10.8 H, Neut % (Auto) 52.3, Lymph % (Auto) 22.7, [place] % (Auto) 9.6 H, Eos % (Auto) 14.7 H, Baso % (Auto) 0.6, Neut # (Auto) 3.6, Lymph # (Auto) 1.6, [place] # (Auto) 0.7, Eos # (Auto) 1.0 H, Baso # (Auto) 0.0, ESR 16, Sodium 142, Potassium 3.0 L, Chloride 105, Carbon Dioxide 27, Anion Gap 13.0, BUN 20 H, Creatinine 0.90, Estimated Creat Clear 48, Estimated GFR 60, Est GFR ( Amer) 73, Glucose 107 H, Calcium 8.4, C- Reactive Protein 2.4, Procalcitonin 0.089 I & O for Last 24 hours: Intake & Output 07/05/25 07/06/25 07/07/25 07/08/25 23:59 23:59 23:59 23:59 Intake Total 620 / 620 Balance 620 / 620 Weight 95.254 kg 66.361 kg Microbiology Reports for the Last 24 Hours: Microbiology 07/07/25 22:46 Blood Blood Culture - Preliminary 07/07/25 21:24 Leg,Left Gram Stain - Final Constitutional Constitutional: no acute distress *Routine HEENT Exam Head: Present normocephalic Eye: Present EOMI and PERRL ENT: Present mucous membranes moist *Routine Neck Exam Neck: Present supple; Absent lymphadenopathy *Routine Respiratory Exam Respiratory: Present CTA bilaterally *Routine Cardiovascular Exam Cardiovascular: Present RRR *Routine Abdominal Exam Abdominal: Present soft and normoactive bowel sounds; Absent tenderness *Routine Extremities Exam Extremities: Absent cyanosis, clubbing or edema Comments: Left garvey erythema with swelling, with central skin opening and mild drainage. No induration or signs of abscess at this time. *Routine Skin Exam Skin: Present warm; Absent rash *Routine Neurological Exam Neurological: Present alert and oriented X3 Assessment and Plan *Assessment and plan (1) Cellulitis: Status: Acute Qualifiers: Site of cellulitis: extremity Site of cellulitis of extremity: lower extremity Laterality: left Qualified Code(s): L03.116 - Cellulitis of left lower limb Category: Medical Code(s): L03.90 - Cellulitis, unspecified Plan Samara Hayward is a 80-year-old female who presented with worsening left lower extremity erythema, pain, swelling and was admitted for left lower extremity cellulitis that failed outpatient antibiotic therapy. #Left lower extremity cellulitis #Left lower extremity draining wound ? Patient states erythema, swelling began a few weeks ago when she jammed her left garvey into a which caused an open wound with bleeding. Since then, her leg has been more erythematous, painful, and swollen especially over the past few days. ? Patient has had outpatient treatment with amoxicillin, levofloxacin without improvement in symptoms. ? Initial WBC, CRP, vital signs normal. ? Continue IV vancomycin, cefepime 1 g every 12 hours. ? Follow-up wound, blood cultures. ? Follow-up CT of left lower extremity to rule out abscess, osteomyelitis. #Uncontrolled anxiety ? Patient states she has been having marital problems with her , but feels safe at home. ? Tearful on exam this morning, takes Klonopin 1 mg twice daily as needed. Restarted today. ? It was reported patient alluded to suicidal ideation in the ER upon arrival. Patient vehemently denies this, and any SI/HI today. ? Behavioral health consulted, did not make recommendations to change any medications at this time. #Hypertension ? Hold home lisinopril due to stable pressures here. Patient takes Lasix 1 mg for lower extremity swelling, will continue for now. Follow BNP. Full code DVT prophylaxis: Lovenox 40 mg
[2025-07-08 15:08] LABS: Acinetobacter calcoaceticus-ba Not Detected; Bacteroides fragilis Not Detected; Candida auris Not Detected; Candida glabrata Not Detected; Enterobacterales Not Detected; Enterococcus faecalis Not Detected; Enterococcus faecium Not Detected; Klebsiella aerogenes Not Detected; Klebsiella pneumoniae grp Not Detected; Proteus spp. Not Detected; Salmonella spp. Not Detected; Serratia marcescens Not Detected; Staphylococcus epidermidis Not Detected; Staphylococcus lugdunensis Not Detected; Staphylococcus spp. Not Detected; Stenotrophomonas maltophilia Not Detected; Streptococcus agalactiae(GrpB) Not Detected; Streptococcus pyogenes Group A Not Detected; Streptococcus spp. Not Detected
[2025-07-08 16:00] VITALS: BP 129/75; PULSE 91; RESP 18; TEMP 36.6; O2SAT 97
[2025-07-08 16:03] LABS: Amphetamine/Metha Screen,Urine Negative ng/ml (<1000)
[2025-07-08 16:04] LABS: Barbiturates Screen,Urine Negative ng/ml (<200)
[2025-07-08 16:06] LABS: Methadone Screen,Urine Negative ng/ml (<300)
[2025-07-08 20:00] VITALS: BP 98/43; PULSE 86; RESP 16; TEMP 36.6; O2SAT 95
[2025-07-08 21:43] VITALS: BP 133/56
--- NOTE | 2025-07-08 23:03 | PC.NURSE ---
patient is alert and oriented to questions but very fearful tonight that she is going to have surgery tonight. Patient has been reassured she is not having surgery tonight. administer samson'd meds for anxiety.
[2025-07-09] MEDS: HYDROCODONE/APAP 5/325 MG TABLET 1 TAB PO (00:51)
[2025-07-09 04:00] VITALS: BP 131/61; PULSE 90; RESP 16; TEMP 36.6; O2SAT 93; BMI 24.3
--- NOTE | 2025-07-09 04:15 | PC.NURSE ---
Addendum entered by Ziggy Beatty RN 07/09/25 04:54: patient is very confused stating that staff need to go check her husbands glucose, etc and she believes he is the patient, not her. patient has been redirected numerous times, which has failed. patient knows simple answers to questions such as name, , place, but confused on situation and what is going on. Original Note: patient has required frequent and numerous interventions tonight from SRNA and RN. She is very confused r/t her tx plan and stuck on having surgery, requesting to go back to her old room on the 4th floor, calling her and daughter repeatedly t/o the shift up into the morning 3-4am - patient has been up and down between bed and recliner, had numerous warm blankets on and off, adjusted room temp several times from warm to cool, hasn't slept tonight - administered pain meds per OCT r/t back pain, took PM clonazepam. Alexys, daughter called this RN and stated she will be here in the morning around 10AM and would like to speak with the doctor r/t patient behaviors.
[2025-07-09 08:00] VITALS: BP 127/66; PULSE 84; RESP 16; TEMP 36.7; O2SAT 96
[2025-07-09] MEDS: VANCOMYCIN HCL 1,000 MG in 0.9 % SODIUM CHLORIDE 250 ML 125 MG IV (08:09)
--- NOTE | 2025-07-09 09:07 | HMH.PHAAMS2 ---
- Antimicrobial Stewardship Review culture & sensitivity review Stewardship interventions: culture & sensitivity review, reviewed - no change Comments: ZOSYN AND VANCOMYCIN FOR CELLULITIS, CULTURES STILL PENDING
[2025-07-09] MEDS: FUROSEMIDE 40MG/4ML VIAL 40 MG IV (11:44)
[2025-07-09] MEDS: PIPERACILLIN/TAZO 3.375 GM in 0.9 % SODIUM CHLORIDE 50 ML IV ×3 (11:44→22:42)
--- NOTE | 2025-07-09 12:17 | P.PN_ITS ---
Subjective *Date: 07/09/25 *Time: 13:05 Interval history: Today, patient continues to have cellulitis versus dermatitis that has extended into the left foot and seems more swollen today. Will switch cefepime to Zosyn. Ordered one-time dose of IV Lasix 40 mg, Solu-Medrol 40 mg. Follow-up response. Exam Data for Last 24 hours Vital signs and Labs for Last 24 Hours: Temp Pulse Resp BP Pulse Ox O2 Del Method 98.1 F 84 16 127/66 96 Room Air 07/09/25 08:00 07/09/25 08:00 07/09/25 08:00 07/09/25 08:00 07/09/25 08:00 07/09/25 10:03 Laboratory Results - last 24 hr 07/07/25 22:41: A. baumannii (PCR) Not detected, Bacteroides fragilis Not detected, Magdalena albicans (PCR) Not detected, Magdalena auris (PCR) Not detected, C. glabrata (PCR) Not detected, C. krusei (PCR) Not detected, C. parapsilosis (PCR) Not detected, C. tropicalis (PCR) Not detected, Cryptococcus neoformans PCR Not detected, Enterobacterales (PCR) Not detected, Enterococc faecalis PCR Not detected, Enterococc faecium PCR Not detected, E. coli (PCR) Not detected, H. influenzae DNA Not detected, Klebsiella aerogenes (PCR) Not detected, K lebsiella oxytoca PCR Not detected, K. pneumoniae group (PCR) Not detected, List. monocytogenes PCR Not detected, N. meningitidis (PCR) Not detected, Proteus species (PCR) Not detected, Salmonella spp. (PCR) Not detected, Serratia marcescens PCR Not detected, Staphylococcus sp PCR Not detected, Staph aureus (PCR) Not detected, mecA/C & MREJ Resist Gene Not applicable, mecA/C-Methicil Resis Gene Not applicable, Staph epidermidis (PCR) Not detected, Staph lugdunensis (TEM-PCR) Not detected, S. maltophilia (PCR) Not detected, Streptococcus sp PCR Not detected, S.agalactiae Grp B JAMIL Not detected, Strep pneumoniae (PCR) Not detected, S. pyogenes GrpA JAMIL Not detected, P. aeruginosa (PCR) Not detected, Evgeny/B-Vanco Res Genes Not applicable, blaIMP Car res Gene PCR Not applicable, KPC-Carbap Res Gene PCR Not applicable, blaNDM Car Res Gene PCR Not applicable, OXA-48 Carbapenem Resis Gene (PCR) Not applicable, blaVIM Car Res Gene PCR Not applicable, CTX-M Gene Resistance (PCR) Not applicable, MCR-1 Resistance Gene Not applicable 07/08/25 15:40: Urine Opiates Screen TNP, Urine Methadone Screen Negative, Ur Barbituates Screen Negative, Ur Phencyclidine Scrn TNP, Ur Amphetamines Screen Negative, U Benzodiazepines Scrn TNP, Urine Cocaine Screen TNP, U Marijuana (THC) Screen Negative I & O for Last 24 hours: Intake & Output 07/06/25 07/07/25 07/08/25 07/09/25 23:59 23:59 23:59 23:59 Intake Total 1870 / 1870 300 / 300 Output Total 300 / 300 500 / 500 Balance 1570 / 1570 -200 / -200 Weight 95.254 kg 66.361 kg 66.043 kg Microbiology Reports for the Last 24 Hours: Microbiology 07/07/25 21:24 Leg,Left Gram Stain - Final 07/07/25 21:24 Leg,Left Wound Culture - Preliminary 07/07/25 22:41 Blood Blood Culture - Preliminary NO GROWTH AFTER 24 HOURS 07/07/25 22:46 Blood Blood Culture - Preliminary Constitutional Constitutional: no acute distress *Routine HEENT Exam Head: Present normocephalic Eye: Present EOMI and PERRL ENT: Present mucous membranes moist *Routine Neck Exam Neck: Present supple; Absent lymphadenopathy *Routine Respiratory Exam Respiratory: Present CTA bilaterally *Routine Cardiovascular Exam Cardiovascular: Present RRR *Routine Abdominal Exam Abdominal: Present soft and normoactive bowel sounds; Absent tenderness *Routine Extremities Exam Extremities: Absent cyanosis, clubbing or edema Comments: Left garvey erythema with swelling, with central skin opening without drainage today. No induration or signs of abscess at this time. *Routine Skin Exam Skin: Present warm; Absent rash *Routine Neurological Exam Neurological: Present alert and oriented X3 Assessment and Plan *Assessment and plan (1) Cellulitis: Status: Acute Qualifiers: Laterality: left Site of cellulitis: extremity Site of cellulitis of extremity: lower extremity Qualified Code(s): L03.116 - Cellulitis of left lower limb Category: Medical Code(s): L03.90 - Cellulitis, unspecified Plan Samara Hayward is a 80-year-old female who presented with worsening left lower extremity erythema, pain, swelling and was admitted for left lower extremity cellulitis that failed outpatient antibiotic therapy. #Left lower extremity cellulitis #Left lower extremity draining wound #Possible venous stasis dermatitis ? Patient states erythema, swelling began a few weeks ago when she jammed her left garvey into a which caused an open wound with bleeding. Since then, her leg has been more erythematous, painful, and swollen especially over the past few days. ? Patient has had outpatient treatment with amoxicillin, levofloxacin without improvement in symptoms. ? Initial WBC, CRP, vital signs normal. ? CT of left lower extremity on 07/08/2025 showed diffuse subcutaneous induration throughout the left lower leg. ? Venous Doppler on 07/25/2025 negative for DVT. ? There is significant swelling in bilateral lower extremities, so erythema and swelling may be related to venous stasis dermatitis. Ordered IV Lasix 40 mg. ? Today, patient continues to have cellulitis versus dermatitis that has extended into the left foot and seems more swollen today. Will switch cefepime to Zosyn. ? Continue IV vancomycin, started Zosyn 3.375 g every 6 hours. ? Ordered IV Solu-Medrol 40 mg one-time dose. ? Follow-up wound, blood cultures. Follow-up BNP ? Follow-up morning CBC. #Uncontrolled anxiety #Hospital-acquired delirium ? Patient states she has been having marital problems with her , but feels safe at home. ? Patient seems less anxious on exam this morning after restarting home Klonopin. Had confusion overnight more consistent with hospital-acquired delirium. ? It was reported patient alluded to suicidal ideation in the ER upon arrival. Patient vehemently denies this, and any SI/HI. ? Behavioral health consulted, did not make recommendations to change any medications at this time. ? Supportive management for hospital-acquired delirium, family is visiting, ensure blinds are open during day. #Hypertension ? Hold home lisinopril due to stable pressures here. Patient takes Lasix 40 mg for lower extremity swelling, will continue for now. Follow BNP. Full code DVT prophylaxis: Lovenox 40 mg
[2025-07-09 12:20] LABS: Microscopic, Urine URINE MICROSCOPIC (MICROSCOPIC)
[2025-07-09 12:27] LABS: Bilirubin,Urine Negative (Negative); Color,Urine YELLOW (Yellow); Glucose,Urine (UA) Negative (Negative); Ketones,Urine Negative (Negative); Leukocyte Esterase,Urine 1+ (Negative); PH,Urine 5.5 (5.0-8.5); Protein,Urine Negative (Negative); Specific Gravity, Urine 1.025 (1.005-1.030); Urobilinogen,Urine 0.2 EU/dl (0.2)
[2025-07-09 12:52] LABS: Bacteria,Urine Trace /lpf; RBC,Urine Occasional #/hpf (0-3); Squamous Epithelial Cell,Urine Occasional #/hpf (0-5); Triple Phosphate Crystal,Urine 1+ /lpf; WBC,Urine Occasional #/hpf (0-3)
[2025-07-09 13:40] LABS: Hematocrit 46.1 % (37.0-47.0); Hemoglobin 15.3 g/dL (12.2-16.2); Immature Granulocytes % 0.3 %; Mean Corpuscular HGB Conc 33.2 g/dL (31.8-35.4); Mean Corpuscular Hemoglobin 31.9 pg (27.0-31.2); Mean Corpuscular Volume 96.2 fl (81-99); Nucleated Red Blood Cells % 0 %; Platelet Count 238 K/mm3 (142-424); Red Blood Count 4.79 M/mm3 (4.20-5.40); Red Cell Distribution Width-SD 48.8 fL; White Blood Count 6.5 K/mm3 (4.8-10.8)
[2025-07-09] MEDS: METHYLPREDNISOLONE SOD SUCC 40MG VIAL 40 MG IV (13:48)
[2025-07-09 13:54] LABS: Anion Gap 11.0 mEq/L (5-15); Blood Urea Nitrogen 21 mg/dl (7-17); Calcium 9.7 mg/dl (8.4-10.2); Carbon Dioxide 28 mmol/L (22.0-30.0); Chloride 103 mmol/L (98-107); Creatinine Clearance Estimated 48 mL/min (50-200); Creatinine,Serum 1.00 mg/dl (0.52-1.04); Estimated Glomerular Filt Rate 53 ml/min (>60); GFR (African American) 65 ML/MIN (>60); Glucose 137 mg/dl (74-100); Potassium 4.0 mmoL/L (3.5-5.1); Sodium 138 mmol/L (136-145)
[2025-07-09 14:26] LABS: NT Pro Brain Natriuretic Pep. 246 pg/mL (0-450)
[2025-07-09] MEDS: ACETAMINOPHEN 325MG TAB 650 MG PO (15:35)
--- NOTE | 2025-07-09 15:53 | PC.NURSE ---
. aware patient's family would like her to be revaluated for her mental status and confusion.
[2025-07-09 16:00] VITALS: BP 131/60; PULSE 101; RESP 16; TEMP 36.6; O2SAT 96
--- NOTE | 2025-07-09 16:31 | PC.NURSE ---
Aox 2 with confusion noted, 20g L AC SL, on iv abx, on RA, cardiac diet, PT/OT/CM and behavioral health following, lovenox for vte, bed alarm active, left leg dressing c/d/i.
[2025-07-09 18:00] LABS: C-Reactive Protein 1.8 mg/L (0-4)
[2025-07-09 20:00] VITALS: BP 154/88; PULSE 120; RESP 20; TEMP 36.8; O2SAT 94
[2025-07-10 04:00] VITALS: BMI 24.3
[2025-07-10] MEDS: PIPERACILLIN/TAZO 3.375 GM in 0.9 % SODIUM CHLORIDE 50 ML IV ×2 (04:56→12:54)
[2025-07-10 08:00] VITALS: BP 114/53; PULSE 77; RESP 14; TEMP 36.4; O2SAT 95
--- NOTE | 2025-07-10 09:05 | HMH.PHAAMS2 ---
- Antimicrobial Stewardship Review culture & sensitivity review Stewardship interventions: culture & sensitivity review Comments: ZOSYN AND VANCOMYCIN FOR CELLULITIS, BLOOD CX NO GROWTH, URINE AND LEFT LEG WOUND CX PENDING.
--- NOTE | 2025-07-10 09:12 | PC.NURSE ---
Pt. refused labs and morning meds.
[2025-07-10] MEDS: VANCOMYCIN HCL 1,000 MG in 0.9 % SODIUM CHLORIDE 250 ML 125 MG IV (10:45)
--- NOTE | 2025-07-10 11:50 | DIET.NUTRFU ---
No BM since admit, reviewed in morning meeting. provider to add some BM regimen. meal intake has been fair to good. Will controlled to monitor
[2025-07-10 11:52] VITALS: BMI 24.3
[2025-07-10] MEDS: FUROSEMIDE 40MG/4ML VIAL 40 MG IV (15:00)
[2025-07-10 16:00] VITALS: BP 139/61; PULSE 95; RESP 18; TEMP 36.8; O2SAT 91
--- NOTE | 2025-07-10 17:03 | PC.NURSE ---
Aox 2 with confusion noted, 20g R FA SL, on iv abx, on RA, cardiac diet, PT/OT/CM and behavioral health following, lovenox for vte, bed alarm active, family present.
--- NOTE | 2025-07-10 17:48 | P.PN_ITS ---
Subjective *Date: 07/10/25 *Time: 17:48 Interval history: Patient feeling much better today, left lower extremity also looks better. Will continue IV antibiotics for 1 more day. Follow-up CT angiogram to rule out PAD. Exam Data for Last 24 hours Vital signs and Labs for Last 24 Hours: Temp Pulse Resp BP Pulse Ox O2 Del Method 98.3 F 95 H 18 139/61 91 L Room Air 07/10/25 16:00 07/10/25 16:00 07/10/25 16:00 07/10/25 16:00 07/10/25 16:00 07/10/25 16:00 Laboratory Results - last 24 hr 07/09/25 13:29: C-Reactive Protein 1.8 I & O for Last 24 hours: Intake & Output 07/07/25 07/08/25 07/09/25 07/10/25 23:59 23:59 23:59 23:59 Intake Total 1870 / 1870 1110 / 1550 990 / 990 Output Total 300 / 300 3000 / 3000 800 / 800 Balance 1570 / 1570 -1890 / -1450 190 / 190 Weight 95.254 kg 66.361 kg 66.043 kg 66.043 kg Microbiology Reports for the Last 24 Hours: Microbiology 07/07/25 21:24 Leg,Left Gram Stain - Final 07/07/25 21:24 Leg,Left Wound Culture - Preliminary 07/07/25 22:46 Blood Blood Culture - Preliminary NO GROWTH AFTER 72 HOURS 07/07/25 22:41 Blood Blood Culture - Preliminary NO GROWTH AFTER 48 HOURS Constitutional Constitutional: no acute distress *Routine HEENT Exam Head: Present normocephalic Eye: Present EOMI and PERRL ENT: Present mucous membranes moist *Routine Neck Exam Neck: Present supple; Absent lymphadenopathy *Routine Respiratory Exam Respiratory: Present CTA bilaterally *Routine Cardiovascular Exam Cardiovascular: Present RRR *Routine Abdominal Exam Abdominal: Present soft and normoactive bowel sounds; Absent tenderness *Routine Extremities Exam Extremities: Absent cyanosis, clubbing or edema Comments: Left garvey erythema with swelling, with central skin opening without drainage today. No induration or signs of abscess at this time. *Routine Skin Exam Skin: Present warm; Absent rash *Routine Neurological Exam Neurological: Present alert and oriented X3 Assessment and Plan *Assessment and plan (1) Cellulitis: Status: Acute Qualifiers: Site of cellulitis: extremity Site of cellulitis of extremity: lower extremity Laterality: left Qualified Code(s): L03.116 - Cellulitis of left lower limb Category: Medical Code(s): L03.90 - Cellulitis, unspecified Plan Samara Hayward is a 80-year-old female who presented with worsening left lower extremity erythema, pain, swelling and was admitted for left lower extremity mikki lulitis that failed outpatient antibiotic therapy. #Left lower extremity cellulitis #Left lower extremity draining wound #Possible venous stasis dermatitis ? Patient states erythema, swelling began a few weeks ago when she jammed her left garvey into a door which caused an open wound with bleeding. Since then, her leg has been more erythematous, painful, and swollen especially over the past few days. ? Patient has had outpatient treatment with amoxicillin, levofloxacin without improvement in symptoms. ? Initial WBC, CRP, vital signs normal. ? CT of left lower extremity on 07/08/2025 showed diffuse subcutaneous induration throughout the left lower leg. ? Venous Doppler on 07/25/2025 negative for DVT. ? Today, left lower extremity swelling, erythema, pain has improved. I do suspect a lot of this was venous stasis dermatitis from significant underlying venous insufficiency. Receiving IV Lasix 40 mg. BNP normal. ? Continue IV vancomycin, started Zosyn 3.375 g every 6 hours. ? Follow-up wound, blood cultures. ? Follow-up morning CBC. ? Follow-up CT angiogram of left lower extremity to rule out PAD. #Uncontrolled anxiety #Hospital-acquired delirium ? Patient states she has been having marital problems with her , but feels safe at home. ? Patient seems less anxious after restarting home Klonopin. Had confusion overnight more consistent with hospital-acquired delirium. ? It was reported patient alluded to suicidal ideation in the ER upon arrival. Patient vehemently denies this, and any SI/HI. ? Behavioral health consulted, did not make recommendations to change any medications at this time. ? Supportive management for hospital-acquired delirium, family is visiting, ensure blinds are open during day. ? Zyprexa 5 mg nightly ordered. #Hypertension ? Hold home lisinopril due to stable pressures here. Patient takes Lasix 40 mg for lower extremity swelling, will continue for now. Follow BNP. Full code DVT prophylaxis: Lovenox 40 mg
--- NOTE | 2025-07-10 17:51 | HMH.ITSTN ---
spoke with khushboo blank, advised about contrast allergy. RN said he will speak with and follow up with me
[2025-07-10] MEDS: ACETAMINOPHEN 325MG TAB 650 MG PO (18:24)
[2025-07-10 20:00] VITALS: BP 126/64; PULSE 89; RESP 16; TEMP 36.7; O2SAT 99
[2025-07-10] MEDS: OLANZapine 5 MG ODT TABLET SL (20:33)
[2025-07-10] MEDS: POLYETHYLENE GLYCOL 3350 17 GM PACKET PO (20:33)
[2025-07-10] MEDS: HYDROCODONE/APAP 5/325 MG TABLET 1 TAB PO (22:57)
--- NOTE | 2025-07-11 03:43 | PC.NURSE ---
Pt has remained confused on alert to self and place. She has tolerated room air. She has complained of back pain and was medicated per MAR. Left lower extremity has remained red and swollen but pt states it is feeling much better. Currently resting in bed with bed alarm in place.
[2025-07-11 04:00] VITALS: BP 108/59; PULSE 87; RESP 16; TEMP 36.7; O2SAT 95; BMI 25.1
[2025-07-11 08:00] VITALS: BP 103/57; PULSE 85; RESP 16; TEMP 36.8; O2SAT 92
[2025-07-11] MEDS: FUROSEMIDE 40 MG TABLET PO (09:35)
--- NOTE | 2025-07-11 14:11 | HMH.PHAAMS2 ---
- Antimicrobial Stewardship Review reviewed - no change Stewardship interventions: reviewed - no change
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
--- NOTE | 2025-07-13 12:04 | SW/DCPLANNER ---
Spoke with patient on the phone. Patient stated that she is doing good eating her breakfast. Patient stated that she is aware of her upcoming appointments. Patient stated that she was not prescribed any new medicine. Patient stated that she has no concerns or questions at this time. Saskia Whalen
--- NOTE | 2025-07-14 08:11 | PC.NURSE ---
Wound culture results forwarded to hospitalist.
[2025-07-17 10:51] LABS: Hydrocodone Confirm 746 ng/mL (Cutoff=100)
== END 2025-07-11 15:20 | disposition home or self-care (01) | DRG 300 ==
LOC: ER 22:42 → 2ND 22:53
PROVIDERS: Emergency Medicine; Nurse Practitioner; Nurse Practitioner Family; Admitting Provider Student in an Organized Health Care Education/Training Program; Emergency Provider Emergency Medicine; PCP Internal Medicine; Visit Provider Student in an Organized Health Care Education/Training Program
DX: I87.2 Venous insufficiency (chronic) (peripheral) (principal); R45.851 Suicidal ideations; F41.9 Anxiety disorder, unspecified; R41.0 Disorientation, unspecified; Y95 Nosocomial condition; Z88.8 Allergy status to other drugs, medicaments and biological substances; Z88.1 Allergy status to other antibiotic agents; Z91.041 Radiographic dye allergy status; I25.10 Atherosclerotic heart disease of native coronary artery without angina pectoris; J45.909 Unspecified asthma, uncomplicated; M19.90 Unspecified osteoarthritis, unspecified site; I10 Essential (primary) hypertension; Z98.1 Arthrodesis status; Z95.5 Presence of coronary angioplasty implant and graft; Z96.642 Presence of left artificial hip joint; E87.6 Hypokalemia; Z63.0 Problems in relationship with spouse or partner
CPT/HCPCS: 36415; 73700; 80048; 80053; 80307; 80320; 80329; 80346; 80353; 80361; 81001; 83735; 83880; 83992; 84145; 85025; 85651; 86140; 87040; 87070; 87086; 87154; 87205; 93005; 93971; 97110; 97162; 97166; 97530; 99285; G0480; J0692; J1650; J1885; J1938; J2543; J2919; J3373; J7050